=== PATIENT | male | born 1970 | race American Indian/Alaskan Native ===

== ENCOUNTER 2018-01-31 07:05 | Observation (INO) | payer BC ==
--- OUTSIDE RECORDS SUMMARY | 2018-01-31 07:07 | XMS REPORT | Clinical Summary ---
:[address] [facility] Address [address] [place] [address] Phone Care Team Providers Name Role Phone Unavailable Primary Care Provider Unavailable Allergies Active Allergy Reactions Severity Noted Date Comments Morphine Rash Medium 12/30/2014 Ketorolac Rash Medium 09/12/2012 Able to take other NSAIDs like motrin and aleve Zolpidem Other (See Comments) Low 05/23/2010 Sleep walk Per patient "Sleep Walking". Current Medications Prescription Sig. Disp. Refills Start End Date Status Date tiZANidine Take 8 mg by mouth Active (ZANAFLEX) 4 MG every 4 (four) tabletIndications: hours as needed . Muscle Spasm promethazine 25 mg as needed for Active (PHENERGAN) 12.5 Nausea . 6 MG tablet HYDROcodone-acetam Take 1 tablet by Active inophen (NORCO mouth every 4 10-325) 10-325 mg (four) hours as per tablet needed for Pain. clopidogrel Take 75 mg by mouth Active (PLAVIX) 75 mg daily. tablet atorvastatin Take 40 mg by mouth Active (LIPITOR) 40 MG nightly. tablet fondaparinux Inject 7.5 mg Active (ARIXTRA) 7.5 subcutaneously mg/0.6 mL Syrg daily. injection buprenorphine HCl Place 300 mcg Active (BELBUCA) 300 mcg inside cheek 2 FilmIndications: (two) times daily. Chronic Pain pantoprazole Take 1 tablet (40 30 tablet 0 Active (PROTONIX) 40 MG mg total) by mouth 7 tablet daily. lisinopril Take 1 tablet (10 30 tablet 0 01/26/20 Active (PRINIVIL,ZESTRIL) mg total) by mouth 8 19 10 MG tablet daily. lisinopril Take 5 mg by mouth 01/23/20 Discontinued (PRINIVIL,ZESTRIL) daily . 18 10 MG tablet isosorbide Take 30 mg by mouth 01/25/20 Discontinued mononitrate 2 (two) times 18 (IMDUR) 30 MG 24 daily. hr tablet Active Problems Problem Noted Date Chest pain of unknown etiology 02/08/2017 Chest pain 02/08/2017 Heart attack (HCC) 08/11/2016 Chest pain of uncertain etiology 08/14/2015 History of pericarditis 04/12/2015 Pulmonary embolus (HCC) 12/09/2012 Chronic back pain Hypertension Factor 5 Leiden mutation, heterozygous (HCC) Port-a-cath in place Resolved Problems Problem Noted Date Resolved Date Chest pain 12/16/2016 02/08/2017 Anemia 12/01/2016 02/08/2017 Abdominal pain 10/15/2015 02/08/2017 Uncontrolled hypertension 10/15/2015 02/08/2017 SVT (supraventricular tachycardia) ([facility]) 09/13/2014 02/08/2017 Encounters Date Type Specialty Care Team Description 01/24/2018 Orders Only General Internal Medicine 01/22/2018 - Hospital Encounter General Internal [facility], Must 01/25/2018 Medicine MD Dominique Cespedes, MD Jeremiah Prieto Bhagwat Purushottam, MD Aly, Salman Siraj, MD 08/30/2017 Hospital Encounter General Internal Wiliam Sanderson Medicine MD 07/23/2017 - Hospital Encounter General Internal Wiliam Sanderson 07/24/2017 Medicine Winston Fabian MD 07/23/2017 Orders Only Katherin Grubbs, RN 07/12/2017 - Hospital Encounter General Internal Winston Daniels 07/13/2017 MD Katie Mccartney Dominic Gregory, MD Aly, Salman Siraj, MD 02/17/2017 Hospital Encounter General Internal Kirk Wilson MD 02/17/2017 Orders Only Krystin Galvez RN 02/08/2017 - Hospital Encounter General Internal Kirk Wilson 02/09/2017 Nilda Kay MD 02/08/2017 Orders Only Kathi Martinez RN after 01/30/2017 Family History Medical History Relation Name Comments Vision loss Brother Hyperlipidemia Father Hypertension Father Unremarkable Father Vision loss Father Vision loss Maternal Aunt Heart disease Mother Hyperlipidemia Mother Hypertension Mother Unremarkable Mother Vision loss Mother Hyperlipidemia Sister Hypertension Sister Vision loss Sister Relation Name Status Comments Brother Father Maternal Aunt Mother Sister Social History Tobacco Use Types Packs/Day Years Used Date Never Smoker Smokeless Tobacco: Never Used Tobacco Cessation: Counseling Given: No Alcohol Use Drinks/Week oz/Week Comments No Sex Assigned at Date Recorded Not on file Last Filed Vital Signs Vital Sign Reading Time Taken Blood Pressure 123/71 01/25/2018 11:45 AM CDT Pulse 81 01/25/2018 11:45 AM CDT Temperature 36.7 C (98.1 F) 01/25/2018 11:45 AM CDT Respiratory Rate 18 01/25/2018 11:45 AM CDT Oxygen Saturation 100% 01/25/2018 11:45 AM CDT Inhaled Oxygen Concentration - - Weight 86.2 kg (190 lb) 01/22/2018 6:00 PM CDT Height 170.2 cm (5' 7") 01/22/2018 6:00 PM CDT Body Mass Index 29.76 01/22/2018 6:00 PM CDT Plan of Treatment Health Maintenance Due Date Last Done Comments INFLUENZA VACCINE 07/11/2018 Results EKG-SCANNED (01/26/2018 1:52 PM)Only the most recent of6 resultswithin the time period is included.RHYTHM STRIP - SCAN (01/26/2018 1:52 PM)Only the most recent of5 resultswithin the time period is included.CT chest for pulmonary embolus (01/24/2018 7:46 PM) Specimen Performing Laboratory [facility] Narrative FINAL REPORT HISTORY: chest pain COMPARISON : 03/12/2016 Technique : Multiple axial images of the chest were performed from the lung apices to the lung bases with 5 mm slice thickness with the administration of IV contrast. Images were further reconstructed with 1.25 mm slice thickness through the pulmonary arteries. This exam was performed according to our departmental dose optimization program which includes automated exposure control, adjustment of the mA and/or kV according to patient size and/or use of iterative reconstructive technique. Comment: The thyroid gland is within normal limits. A right-sided Port-A-Cath is in place. There is no hilar, mediastinal or axillary lymphadenopathy. The visualized portions of the liver, spleen, adrenal glands, pancreas, and kidneys are within normal limits. The osseous structures as well as the subcutaneous soft tissues are without any abnormalities. There are some scattered areas of some linear subsegmental atelectasis versus scarring. There is no pleural effusion, pneumothorax or infiltrate. A tiny amount of hypodensity is identified in one of the right lower lobe subsegmental pulmonary artery branches. While this may be related to artifact/poor opacification, a tiny thrombus cannot be excluded. Findings were discussed with Dr. Santiago. Impression: 1. Questionable tiny thrombus in one of the right lower lobe subsegmental pulmonary arterial branches. 2. Scattered areas of some linear subsegmental atelectasis versus scarring. Signed: Theodore Combs MD Report Verified Date/Time:01/24/2018 20:29:12 Reading Location: [facility] [id number] Consult Reading Room Procedure Note Interface, External Ris In - 01/24/2018 8:31 PM CDT FINAL REPORT HISTORY: chest pain COMPARISON : 03/12/2016 Technique : Multiple axial images of the chest were performed from the lung apices to the lung bases with 5 mm slice thickness with the administration of IV contrast. Images were further reconstructed with 1.25 mm slice thickness through the pulmonary arteries. This exam was performed according to our departmental dose optimization program which includes automated exposure control, adjustment of the mA and/or kV according to patient size and/or use of iterative reconstructive technique. Comment: The thyroid gland is within normal limits. A right-sided Port-A-Cath is in place. There is no hilar, mediastinal or axillary lymphadenopathy. The visualized portions of the liver, spleen, adrenal glands, pancreas, and kidneys are within normal limits. The osseous structures as well as the subcutaneous soft tissues are without any abnormalities. There are some scattered areas of some linear subsegmental atelectasis versus scarring. There is no pleural effusion, pneumothorax or infiltrate. A tiny amount of hypodensity is identified in one of the right lower lobe subsegmental pulmonary artery branches. While this may be related to artifact/poor opacification, a tiny thrombus cannot be excluded. Findings were discussed with Dr. Santiago. Impression: 1. Questionable tiny thrombus in one of the right lower lobe subsegmental pulmonary arterial branches. 2. Scattered areas of some linear subsegmental atelectasis versus scarring. Signed: Theodore Combs MD Report Verified Date/Time: 01/24/2018 20:29:12 Reading Location: [facility] [id number] Consult Reading Room Basic Metabolic Panel (01/24/2018 5:19 PM)Only the most recent of3 resultswithin the time period is included. Component Value Ref Range Sodium 138 135 - 148 meq/L Potassium 3.7 3.6 - 5.5 meq/L Chloride 104 98 - 106 meq/L CO2 24 20 - 29 meq/L BUN 18 10 - 26 mg/dL Creatinine 0.90 0.50 - 1.20 mg/dL Glucose 119 (H) 70 - 110 mg/dL Calcium 8.5 8.5 - 10.5 mg/dL EGFR 90Comment: ESTIMATED GFR IS NOT ACCURATE mL/min/1.73 sq m CREATININE CLEARANCE IN PREDICTING GLOMERULAR FILTRATION RATE. ESTIMATED GFR IS NOT APPLICABLE FOR DIALYSIS PATIENTS. Specimen Performing Laboratory Blood [facility] [address] [place] [address] Troponin I (01/22/2018 1:16 PM)Only the most recent of10 resultswithin the time period is included. Component Value Ref Range Troponin I <0.03 0.00 - 0.15 ng/mL Specimen Performing Laboratory Blood - Central Venous Line [facility] [address] [place] [address] Narrative Troponin I (TnI) levels must be interpreted in the context of the presenting symptoms and the clinical findings. Elevated TnI levels indicate myocardial damage, but are not specific for ischemic heart disease. Elevated TnI levels are seen in patients with other cardiac conditions (including myocarditis and congestive heart failure), and slight TnI elevations occur in patients with other conditions, including sepsis, renal failure, acidosis, acute neurological disease, and persistent tachyarrhythmia. Creatine Kinase (CK), Total and MB (01/22/2018 1:16 PM)Only the most recent of7 resultswithin the time period is included. Component Value Ref Range Total CK 53 40 - 250 U/L CK-MB 0.7 0.0 - 4.9 ng/mL MB Relative Index 1.3 % Specimen Performing Laboratory Blood - Central Venous Line [address] [address] Narrative CK-MB Reference Range: <5 Normal 5-10 Borderline >10Abnormal CBC with platelet count + automated diff (07/23/2017 5:47 PM)Only the most recent of3 resultswithin the time period is included. Component Value Ref Range WBC 8.5 4.0 - 10.0 K/L RBC 3.95 (L) 4.20 - 5.80 M/L Hemoglobin 11.4 (L) 13.0 - 16.8 GM/DL Hematocrit 34.6 (L) 40.0 - 50.0 % MCV 87.4 82.0 - 98.0 fL MCH 28.9 27.0 - 33.0 pg MCHC 33.0 32.0 - 36.0 GM/DL RDW 15.7 (H) 10.3 - 14.2 % Platelets 368 150 - 430 K/CU MM MPV 7.1 6.5 - 10.5 fL nRBC 0 0 - 0 /100 WBC % Neutros 50 % % Lymphs 32 % % Monos 15 % % Eos 2 % % Baso 0 % # Neutros 4.30 1.80 - 8.00 K/L # Lymphs 2.70 1.48 - 4.50 K/L # Monos 1.30 0.00 - 1.30 K/L # Eos 0.20 0.00 - 0.50 K/L # Baso 0.00 0.00 - 0.20 K/L Specimen Performing Laboratory Blood [address] [address] CBC with platelet count + automated diff (07/23/2017 5:47 PM)Only the most recent of3 resultswithin the time period is included. Specimen Performing Laboratory Blood Narrative The following orders were created for panel order CBC with platelet count + automated diff. Procedure Abnormality Status --------- ------ CBC with platelet count ...[[id number]]AbnormalFinal result Please view results for these tests on the individual orders. Hemoglobin A1c (07/23/2017 5:47 PM) Component Value Ref Range Hemoglobin A1C 5.3 4.3 - 6.1 % Specimen Performing Laboratory Blood [facility] [address] [place] [id number] Manual Differential (07/13/2017 4:29 AM)Only the most recent of2 resultswithin the time period is included. Component Value Ref Range % Neutros (manual) 38 % % Lymphs (manual) 46 % % Monos (manual) 11 % % Eos (manual) 5 % # Neutros (manual) 2.13 1.80 - 8.00 K/L # Lymphs (manual) 2.58 1.48 - 4.50 K/L # Monos (manual) 0.62 0.00 - 1.30 K/L # Eos (manual) 0.28 0.00 - 0.50 K/L Total Counted 100 WBC Morphology Normal Platelet Morphology Normal RBC Morphology Normal Specimen Performing Laboratory Blood - Central Venous Line [facility] [address] [place] [id number] Lipid panel (07/13/2017 4:29 AM) Component Value Ref Range Triglycerides 159 mg/dL Cholesterol 205 mg/dL HDL 62 mg/dL LDL Calculated 111 mg/dL Specimen Performing Laboratory Blood - Central Venous Line [facility] [address] [place] [address] Narrative Triglyceride Reference Range: Low Risk <150 [id number] High Risk 200-499 Very High Risk>=500 Cholesterol Reference Range: Low Risk <200 [id number] High Risk>240 HDL Cholesterol Reference Range: Low Risk >=60 High Risk <40 LDL Cholesterol Reference Range: Optimal<100 Near [id number] Very High >=190 Comprehensive metabolic panel (07/13/2017 4:29 AM) Component Value Ref Range Protein, Total 6.4 6.0 - 8.5 gm/dL Albumin 3.7 3.5 - 5.0 g/dL Alkaline Phosphatase 67 30 - 115 U/L Total Bilirubin 0.3 0.1 - 1.2 mg/dL Sodium 141 135 - 148 meq/L Potassium 3.7 3.6 - 5.5 meq/L Chloride 106 98 - 106 meq/L CO2 26 20 - 29 meq/L BUN 19 10 - 26 mg/dL Creatinine 1.00 0.50 - 1.20 mg/dL Glucose 104 70 - 110 mg/dL Calcium 9.0 8.5 - 10.5 mg/dL AST 14 5 - 40 U/L ALT 10 5 - 50 U/L EGFR 80Comment: ESTIMATED GFR IS NOT ACCURATE mL/min/1.73 sq m CREATININE CLEARANCE IN PREDICTING GLOMERULAR FILTRATION RATE. ESTIMATED GFR IS NOT APPLICABLE FOR DIALYSIS PATIENTS. Specimen Performing Laboratory Blood - Central Venous Line [facility] [address] [place] [address] aPTT (02/08/2017 10:17 PM) Component Value Ref Range PTT 23.1 23.0 - 35.0 seconds Specimen Performing Laboratory Blood [facility] [address] [place] [address] Prothrombin time/INR (02/08/2017 10:17 PM) Component Value Ref Range Protime 10.4 9.3 - 12.0 seconds INR 1.0 <=5.9 Specimen Performing Laboratory Blood [facility] [address] [place] [address] Narrative RECOMMENDED COUMADIN/WARFARIN INR THERAPY RANGES STANDARD DOSE: 2.0 - 3.0 Includes: PROPHYLAXIS for venous thrombosis, systemic embolization; TREATMENT for venous thrombosis and/or pulmonary embolus. HIGH RISK: Target INR is 2.5-3.5 for patients with mechanical heart valves. after 01/30/2017
--- OUTSIDE RECORDS SUMMARY | 2018-01-31 07:07 | XMS REPORT | Clinical Summary ---
:1970 Author Organization [facility] Address [address] [place] [address] Care Team Providers Name Role Phone Asked, No Pcp Primary Care Provider Unavailable Allergies Active Allergy Reactions Severity Noted Date Comments Zolpidem 08/02/2017 Sleep walk. Morphine Rash Low 08/02/2017 Break out. Ketorolac 08/02/2017 Rashes Current Medications Prescription Sig. Disp. Refills Start Date End Date Status clopidogrel (PLAVIX) Take 75 mg by Active 75 mg tablet mouth every morning. atorvastatin Take 40 mg by Active (LIPITOR) 40 MG mouth nightly. tablet HYDROcodone-acetamino Take 1 tablet Active phen (NORCO) 10-325 by mouth every mg per tablet 4 (four) hours as needed for moderate pain. fondaparinux Inject 7.5 mg Active (ARIXTRA) 7.5 mg/0.6 under the skin mL syringe every morning. tiZANidine (ZANAFLEX) Take 8 mg by Active 4 MG tablet mouth every 6 (six) hours as needed for muscle spasms. buprenorphine HCl Apply 300 mcg Active (BELBUCA) 300 mcg to cheek 2 film (two) times a day. lisinopril Take 5 mg by Active (PRINIVIL,ZESTRIL) 5 mouth every mg tablet morning. promethazine Take 25 mg by 0 11/17/2017 Active (PHENERGAN) 25 MG mouth every 4 tablet (four) hours as needed. BYSTOLIC 20 mg tablet Take 20 mg by 0 11/17/2017 Active mouth every morning. nitroglycerin Place 0.4 mg Active (NITROSTAT) 0.4 MG SL under the tablet tongue every 5 (five) minutes as needed. lisinopril Take 10 mg by 11/26/2017 Discontinued (PRINIVIL,ZESTRIL) 10 mouth daily. mg tablet HYDROcodone-acetamino Take 1 tablet 11/26/2017 Discontinued phen (NORCO) 10-325 by mouth every mg per tablet 4 (four) hours as needed. 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 CAD (coronary artery disease) 09/02/2016 Encounters Date Type Specialty Care Team Description 12/12/2017 - Hospital Encounter General Internal Bryce Mcgowan, 12/15/2017 Medicine DO 12/12/2017 Orders Only General Internal Bryce Mcgowan, Medicine DO 11/26/2017 - [facility] in [facility] (Primary Dx); 11/27/2017 Alejandro Garza Acquired coagulation factor deficiency; Coronary artery disease involving [place] heart with unstable angina pectoris, unspecified vessel or lesion type 08/08/2017 Hospital Encounter General Internal Wiliam Sanderson Medicine MD 08/02/2017 - Hospital Encounter General Internal Wiliam Sanderson, Atypical chest pain 08/03/2017 Medicine (Primary Dx) 04/19/2017 Second Opinion Director Of Consumer Affairs Cabrera Reyes 04/16/2017 Hospital Encounter General Internal Wiliam Sanderson Medicine MD 04/15/2017 Hospital Encounter Intensive Care Elizabeth Beard MD 03/06/2016 - Hospital Encounter Uriel Stephens 02/20/2017 MD Zeyad after 01/30/2017 Family History Medical History Relation Name Comments Factor V Leiden deficiency Father Heart disease Mother Relation Name Status Comments Father Factor 5 Mother Social History Tobacco Use Types Packs/Day Years Used Date Never Smoker Tobacco Cessation: Counseling Given: No Alcohol Use Drinks/Week oz/Week Comments No Sex Assigned at Date Recorded Not on file Last Filed Vital Signs Vital Sign Reading Time Taken Blood Pressure 109/58 12/15/2017 2:57 AM PARTS ORDER AND STOCK CLERK Pulse 78 12/15/2017 2:57 AM PARTS ORDER AND STOCK CLERK Temperature 36.3 C (97.3 F) 12/15/2017 2:57 AM PARTS ORDER AND STOCK CLERK Respiratory Rate 18 12/15/2017 2:57 AM PARTS ORDER AND STOCK CLERK Oxygen Saturation 100% 12/15/2017 2:57 AM PARTS ORDER AND STOCK CLERK Inhaled Oxygen Concentration - - Weight 86.2 kg (190 lb) 11/26/2017 11:49 PM PARTS ORDER AND STOCK CLERK Height 170.2 cm (5' 7") 12/12/2017 3:20 PM PARTS ORDER AND STOCK CLERK Body Mass Index 28.06 11/26/2017 11:49 PM PARTS ORDER AND STOCK CLERK Plan of Treatment Health Maintenance Due Date Last Done Comments INFLUENZA VACCINE 05/11/2018 07/03/2016, 09/09/2015, 08/11/2012 Procedures Procedure Name Priority Date/Time Associated Comments Diagnosis ECHOCARDIOGRAM 2D Routine 08/03/2017 8:30 Results for this COMPLETE W MMODE AM CDT procedure are in SPECTRAL COLOR DOPPLER the results (21737) section. after 01/30/2017 Results Direct Tish' (MAURI) (12/14/2017 10:28 AM) Component Value Ref Range Direct Tish POS Comment: testing performed at [facility], micha langston in [place] with critical 12/14/17 at 2000 Specimen Performing Laboratory [facility] DEPARTMENT OF PATHOLOGY AND GENOMIC MEDICINE [address] [place] [address] [place] [address] Antibody identification (12/14/2017 10:28 AM) Component Value Ref Range Antibody ID POS, Anti-EComment: ADDING GCBC CHARGES Antibody ID POS, Anti-KellComment: ADDING GCBC CHARGES Antibody ID POS, Bg AntibodyComment: ADDING GCBC CHARGES Specimen Performing Laboratory [facility] DEPARTMENT OF PATHOLOGY AND GENOMIC MEDICINE [address] [place] [address] [place] [address] Prepare RBC, 2 Units (12/14/2017 10:28 AM) Component Value Ref Range Product name Red Blood Cells -1, Leukored Unit number [id number] Product code [id number] Dispense status Transfused Blood expiration date Blood type code 6200 Blood type A POSITIVE Product name Red Blood Cells -1, Leukored Unit number [id number] Product code [id number] Dispense status Transfused Blood expiration date Blood type code 6200 Blood type A POSITIVE Specimen Performing Laboratory [facility] DEPARTMENT OF PATHOLOGY AND GENOMIC MEDICINE [address] [place] [address] [place] [address] Type and screen (12/14/2017 10:28 AM) Component Value Ref Range ABO grouping AB Rh type POS Antibody screen POS Specimen Performing Laboratory Blood [facility] DEPARTMENT PATHOLOGY AND [facility] [id number] [place] [address] [place] [address] CBC with platelet and differential (12/14/2017 8:35 AM)Only the most recent of5 resultswithin the time period is included. Component Value Ref Range WBC 4.36 (L) 4.50 - 11.00 k/uL RBC 2.94 (L) 4.40 - 6.00 m/uL HGB 7.1 (L) 14.0 - 18.0 g/dL HCT 23.7 (L) 41.0 - 51.0 % MCV 80.6 (L) 82.0 - 100.0 fL MCH 24.1 (L) 27.0 - 34.0 pg MCHC 30.0 (L) 31.0 - 37.0 g/dL RDW - SD 55.8 (H) 37.0 - 55.0 fL MPV 9.5 8.8 - 13.2 fL Platelet count 280 150 - 400 k/uL Nucleated RBC 0.00 /100 WBC Neutrophils 41.6 39.0 - 69.0 % Lymphocytes 39.0 25.0 - 45.0 % Monocytes 16.7 (H) 0.0 - 10.0 % Eosinophils 2.3 0.0 - 5.0 % Basophils 0.2 0.0 - 1.0 % Immature granulocytes 0.2Comment: "Immature granulocytes" 0.0 - 1.0 % (promyelocytes, myelocytes, metamyelocytes) Specimen Performing Laboratory Blood [facility] DEPARTMENT PATHOLOGY AND [address] [place] [address] Vancomycin level, trough (12/14/2017 8:35 AM) Component Value Ref Range Vancomycin, trough 6.1 (L) 10.0 - 20.0 ug/mL Comment: Therapeutic Ranges: Peak 30.0 - 40.0 ug/mL Mnccpt09.0 - 20.0 ug/mL Specimen Performing Laboratory Serum [facility] DEPARTMENT PATHOLOGY AND [address] [place] [address] CT Angiogram Pe Chest (12/13/2017 2:28 PM) Specimen Performing Laboratory [address] [address] Narrative EXAMINATION: CT ANGIOGRAM PE CHEST CLINICAL HISTORY:47 years Male PE r o TECHNIQUE:CT angiographic images of the chest were obtained during intravenous administration of iodinated contrast. Computerized reformatted images and 3-D MIP images were also obtained and archived (CT pulmonary embolus protocol). CT imaging was performed with iterative reconstruction techniques and/or automated exposure control to reduce radiation dose. COMPARISON: None. FINDINGS: The thyroid appears unremarkable. There are no abnormal mediastinal or hilar lymph nodes identified. A right-sided ported central catheter projects with its tip in the superior vena cava above the right atrium No emboli are identified within the pulmonary vessels. There is no evidence of aneurysm or dissection involving the aorta Views of the upper abdomen which were obtained demonstrate a calcification projecting in the area of the left upper pole measuring approximately 6 to 7 mm. Within the lungs there are no pulmonary parenchymal nodules masses or areas of focal consolidation. Minimal linear opacity at the left lung base suggests an area of mild atelectasis or scar. The bones of the thorax appear osteopenic but appear intact. Impression: 1. No emboli identified. 2. Mild scarring at the lung bases. [id number] Procedure Note Hm Interface, Radiology Results Incoming - 12/13/2017 2:52 PM PARTS ORDER AND STOCK CLERK EXAMINATION: CT ANGIOGRAM PE CHEST CLINICAL HISTORY:47 years Male PE r o TECHNIQUE: CT angiographic images of the chest were obtained during intravenous administration of iodinated contrast. Computerized reformatted images and 3-D MIP images were also obtained and archived (CT pulmonary embolus protocol). CT imaging was performed with iterative reconstruction techniques and/or automated exposure control to reduce radiation dose. COMPARISON: None. FINDINGS: The thyroid appears unremarkable. There are no abnormal mediastinal or hilar lymph nodes identified. A right-sided ported central catheter projects with its tip in the superior vena cava above the right atrium No emboli are identified within the pulmonary vessels. There is no evidence of aneurysm or dissection involving the aorta Views of the upper abdomen which were obtained demonstrate a calcification projecting in the area of the left upper pole measuring approximately 6 to 7 mm. Within the lungs there are no pulmonary parenchymal nodules masses or areas of focal consolidation. Minimal linear opacity at the left lung base suggests an area of mild atelectasis or scar. The bones of the thorax appear osteopenic but appear intact. Impression: 1. No emboli identified. 2. Mild scarring at the lung bases. [id number] Blood culture, aerobic & anaerobic (12/13/2017 10:40 AM) Component Value Ref Range Blood culture isolate No growth after 5 days of incubation. Comment: Specimen Information Specimen Source: Blood Specimen Site: Line, port-a-cath Right Specimen Performing Laboratory Blood - Line, port-a-cath [facility] DEPARTMENT OF PATHOLOGY AND GENOMIC MEDICINE [address] [place] [address] Influenza antigen (12/13/2017 10:10 AM) Component Value Ref Range Influenza antigen Negative for Influenza A/B antigen. Comment: Specimen Information Specimen Source: Nares Specimen Site: Not specified Specimen Performing Laboratory Nares - Not specified [facility] PATHOLOGY AND GENOMIC [facility] [id number] [place] [address] [place] [address] Estimated GFR (12/13/2017 5:10 AM)Only the most recent of4 resultswithin the time period is included. Component Value Ref Range GFR Non Af Amer 59 (A) mL/min/1.73 m2 GFR Af Amer 72 mL/min/1.73 m2 Comment: Chronic kidney disease: <60 mL/min/1.73m2 Kidney failure: <15 mL/min/1.73m2 The estimated GFR is calculated from the IDMS-traceable Modification of Diet in Renal Disease Equation. The accuracy of the calculation is poor when the creatinine is normal. Calculated values >90 mL/min/1.73m2 are not reported. This equation has not been validated in children (<18 years), women, the elderly (>70 years), or ethnic groups other than Caucasians and Americans. Specimen Performing Laboratory Plasma specimen [facility] PATHOLOGY AND [address] [place] [address] Basic metabolic panel (12/13/2017 5:10 AM)Only the most recent of4 resultswithin the time period is included. Component Value Ref Range Sodium 133 (L) 135 - 148 mEq/L Potassium 4.1 3.5 - 5.0 mEq/L Chloride 97 (L) 98 - 112 mEq/L CO2 24 24 - 31 mEq/L Anion gap 12 7 - 15 mEq/L Comment: Starting from January , anion gap calculation no longer incorporates potassium. Please note the change. BUN 20 6 - 20 mg/dL Creatinine 1.3 (H) 0.7 - 1.2 mg/dL Glucose 119 (H) 65 - 99 mg/dL Calcium 8.8 8.3 - 10.2 mg/dL Specimen Performing Laboratory Plasma specimen [facility] DEPARTMENT OF PATHOLOGY AND [facility] MEDICINE [address] [place] [address] Troponin (12/13/2017 12:07 AM)Only the most recent of8 resultswithin the time period is included. Component Value Ref Range Troponin <0.300 0.000 - 0.300 ng/mL Comment: 0.30 - 1.49 ng/mlMay indicate increased risk of acute coronary syndrome. >=1.5 ng/mlConsistent with acute myocardial infarction. The diagnostic value of a single normal or non-diagnostic result is questionable.Serial samples at 2-6 hour intervals are required to rule out acute myocardial injury. Specimen Performing Laboratory Plasma specimen [facility] DEPARTMENT OF PATHOLOGY AND [facility] [address] [place] [address] Lipid panel (12/12/2017 2:47 PM)Only the most recent of2 resultswithin the time period is included. Component Value Ref Range Cholesterol 189 <200 mg/dL Triglycerides 65 <150 mg/dL HDL cholesterol 72 >40 mg/dL LDL cholesterol 116 (H)Comment: Result obtained by direct <100 mg/dL LDL measurement Lipid panel interpretation SeeBelow Comment: Total Cholesterol (mg/dL) <200 Desirable [phone]-phdq >=240High Triglycerides (mg/dL) <150 Normal [id number]-heii 200-499High >=500Very high HDL Cholesterol (mg/dL) <40Low (male) <40Low (female) LDL Cholesterol (mg/dL) <100 Optimal 100-129Near or above optimal [phone]-tnht 160-189High >=190Very high Risk Catergories that modify LDL goals. Risk CatergoriesLDL goal (mg/dL) CHD and CHD risk equivalent<100 (10-year risk >20%) Multiple (2+) risk factors <130 (10-year risk=<20%) 0-1 risk factors <160 (<10-year risk) Defining levels of lipids in metabolic syndrome Triglycerides>=150 mg/dL HDL Cholesterol Men<40 mg/dL Women<40 mg/dL Non-HDL cholesterol is a second target for therapy in persons with high triglycerides (>=200 mg/dL) Specimen Performing Laboratory Plasma specimen [facility] DEPARTMENT OF PATHOLOGY AND GENOMIC MEDICINE [address] [place] [address] ECG 12 lead (11/27/2017 11:02 AM)Only the most recent of5 resultswithin the time period is included. Component Value Ref Range Ventricular rate 76 Atrial rate 76 IL interval 180 QRSD interval 88 QT interval 368 QTC interval 414 P axis 1 47 QRS axis 1 34 T wave axis 44 EKG impression Normal sinus rhythm-Normal ECG-In automated comparison with ECG of 26-NOV-2017 22:59,-No significant change was found- Specimen Performing Laboratory [facility] [address] [place] [address] Echocardiogram complete w contrast and 3D if needed (08/03/2017 8:30 AM) Component Value Ref Range Velocity Ratio (V1/V2) 0.74 m/s IVS,d 0.95 0.6 - 1.2 cm Ao root annulus 3.08 cm EF 57.77 % LVPWD,d 0.87 cm AoV Mean PG 2.71 mmHg AV LVOT peak gradient 2.88 mmHg MV valve area p 1/2 method 4.63 cm2 PV Pk Grad 2.20 mmHg E/A ratio 0.98 E wave decelartion time 164.00 msec IVRT 117.65 msec LVOT Diam,S 2.04 cm LVOT area 3.27 cm2 LVOT Vmax 0.85 m/s LVOT VTI 0.17 m AoV Peak PG 5.32 mmHg MV Peak E Kevin 0.54 m/s MV stenosis pressure 1/2 time 47.56 ms MV Peak A Kevin 0.55 m/s AoV Area, Vmax 2.40 cm2 AoV Area, VTI 2.78 cm2 AoV Vmax 1.15 m/s IVS/LVPW,2D 1.09 LA Area d A4C 12.88 cm2 LV,d 3.79 cm LV,s 2.66 cm PV VMAX 0.74 m/s MV E A ratio 0.97 mmHg LV SYS VOL 25.93 ml LV CHAPMAN VOL 61.40 ml LV SV Teich 2D 35.47 ml LV Vol s Teich PSAX 25.93 ml AoV Vmn 0.78 LA Ao Ratio Mmode 1.15 LV FS Cube 2D 29.86 LV FS Teich 2D 29.86 AoV VTI 0.20 m LV EF,2D 65.49 % MV AE ratio 1.03 LVOT Vmn 0.64 Aov area Vmn 2.67 cm2 LA Vol d MOD A4C 32.07 ml LVOT mean grad 1.74 mmHg LV SV Cube 2D 35.53 ml LV vol d cube 2D 54.25 ml LV vol s cube 2D 18.72 ml MV Decel slope 3.27 m/s2 Specimen Performing Laboratory [facility] [address] [place] [address] Narrative The left ventricle is not well visualized, grossly normal wall motion. Left Ventricular ejection fraction is 55 - 60%. Spectral Doppler shows normal pattern of LV diastolic filling The aortic valve appears normal Trace mitral valve regurgitation The tricuspid valve appears normal The pulmonic valve appears normal Normal right ventricular size, wall thickness and global function CK-MB (08/03/2017 12:12 AM)Only the most recent of3 resultswithin the time period is included. Component Value Ref Range CK-MB 1.3 1.0 - 10.4 ng/mL Specimen Performing Laboratory Plasma specimen [facility] DEPARTMENT OF PATHOLOGY AND [facility] MEDICINE [address] [place] [address] D-dimer (08/03/2017 12:12 AM) Component Value Ref Range D-dimer 0.36 0.00 - 0.40 ug/mL Comment: Units are ug/ml Fibrinogen Equivalent Unit. When combined with low clinical probability, D-dimer results of less than 0.5 ug/ml FEU have a good negativepredictive value in excluding PE or DVT. For D-dimer results greater than 0.5ug/ml FEU further testing is indicated if PE or DVT is suspectedclinically. Elevated D-dimer results have been reported in DVT, PE, and DIC cases and may indicate the presence of a clot. D-dimer results may be elevated due to old age, , inflammatory diseases, trauma, post-operative states, sepsis, and malignancies. Specimen Performing Laboratory Blood [facility] DEPARTMENT OF PATHOLOGY AND [facility]ICINE [address] [place], [place] [address] Creatine kinase, total (CPK) (08/03/2017 12:12 AM)Only the most recent of3 resultswithin the time period is included. Component Value Ref Range Creatine kinase 98 39 - 308 U/L Specimen Performing Laboratory Plasma specimen [facility] DEPARTMENT OF PATHOLOGY AND GENOMIC MEDICINE [address] [place] [address] Partial thromboplastin time, activated (04/15/2017 1:50 PM) Component Value Ref Range PTT 29.7 23.0 - 36.0 sec Comment: PTT therapeutic range for unfractionated heparin is 61.0-112.0 seconds which corresponds to Anti-Xa 0.3-0.7 U/ml. Specimen Performing Laboratory Blood [facility] OF PATHOLOGY AND GENOMIC MEDICINE [address] [place] [address] Prothrombin time with INR (04/15/2017 1:50 PM) Component Value Ref Range Prothrombin time 13.6 12.0 - 15.0 sec INR 1.0 Comment: The International Normalized Ratio (INR) is a therapeutic monitoring tool for patients who are stable on oral anticoagulant therapy. An INR of 2.0-3.0 is suggested for deep vein thrombosis/pulmonary embolism. Specimen Performing Laboratory Blood [facility] DEPARTMENT OF PATHOLOGY AND GENOMIC MEDICINE [address] [place] [address] Magnesium level (04/15/2017 1:50 PM) Component Value Ref Range Magnesium 1.9 1.7 - 2.4 mg/dL Specimen Performing Laboratory Plasma specimen [facility] DEPARTMENT OF PATHOLOGY AND GENOMIC MEDICINE [address] [place] [address] POC glucose (04/15/2017 1:44 PM) Component Value Ref Range POC glucose 129 (H) 65 - 99 mg/dL Comment: [facility] Notified RN Meter ID: [id number] Stone Layout Marker: Amber Alvarez Specimen Performing Laboratory [facility] OF PATHOLOGY AND GENOMIC MEDICINE [address] [place] [address] after 01/30/2017 Insurance Payer Benefit Plan / Group Subscriber ID Type Phone Address BCBS EXCHANGE BLUE ADVANTAGE HMO EXCH xxxxxxxxxxxx Exchange Home: [phone]
--- OUTSIDE RECORDS SUMMARY | 2018-01-31 07:09 | XMS REPORT | Continuity of Care Document ---
:1970 Author Organization [facility] Address [address] [place] [address] Phone Unavailable Care Team Providers Name Role Phone SAMUEL DOUGLASS MD Primary Care Physician Insurance Providers Guarantor Christiano Serra Address [address] [place] [address] Payer [facility] Policy Number [id number] Subscriber's Name Christiano Serra Itzel Relationship 18 Self / Same As Patient Group Number [id number] Group Name [employer] Effective Date 06 Advance Directives Directive Response Recorded Date/Time Does the patient have an advance directive? No 08/12/08 10:06pm If yes, is advance directive on file with [facility]? No 03/30/07 11:24am If not on file with [facility] will patient provide a copy? No 01/04/18 6:45pm Do you have a Directive to Physician? No 01/04/18 6:45pm Do you have a Medical Power of Financial Professional? No 01/04/18 6:45pm Do you have an out of hospital Do Not Resuscitate Order? No 01/04/18 6:45pm Do you have any special needs we should be aware of? No 01/04/18 6:45pm Do you have a support person here with you today? No 01/04/18 6:45pm Did patient receive Notice of Privacy Practices? Yes 01/04/18 6:45pm Did patient receive patient rights and responsibilities? Yes 01/04/18 6:45pm Problems No problem information available. Medications Current Home Medications Medication Dose Units Route Directions Days Qty Instructions Start Date Atorvastatin Calcium 20 Mg Daily 30 Tab (Lipitor) 20 Mg Tablet Buprenorphine Hcl 2 Mg Tab.subl Clopidogrel Bisulfate 75 Mg Oral Daily 30 Tab (Plavix) 75 Mg Tablet Hydrocodone Bit/Acetaminophen ([place] 10-325 Tablet) 1 Each Tablet Lisinopril 10 Mg 10 Mg Oral Daily 30 Tab Tablet Tizanidine Hcl (Zanaflex) 4 Mg Tablet Social History Social History Problem Response Recorded Date/Time Onset Date Status Hx Psychiatric Problems No 12/31/2009 6:38pm Not Applicable Not Applicable Smoking Status Start Date Stop Date Never Smoker Hospital Discharge Instructions No hospital discharge instruction information available. Plan of Care Discharge Date 01/04/18 8:37pm Disposition HOME, SELF-CARE Condition at Discharge Stable Instructions/Education Provided Chest Pain - Chest Wall Prescriptions See Medication Section Referrals SAMUEL DOUGLASS MD Address: [address] [place] [phone] Additional Instructions/Education Discussed with patient diagnosis of chest pain with use of narcotics from multiple providers for chronic back pain. Cardiac/Chest evaluation negative. Recommend FOLLOW UP with electric transfer operator and procurement representative. All results given with precautions to proceed to a hospital ER if symptoms persist or worsen with chest pain, shortness or breath, fever, or diaphoresis. Functional Status No functional status information available. Allergies, Adverse Reactions, Alerts Allergen Type Severity Reaction Status Last Updated Morphine Allergy Mild Active 01/04/18 Phenylephrine Allergy Mild Active 01/04/18 Pseudoephedrine Allergy Mild Active 12/23/09 Zolpidem Allergy Mild Active 12/23/09 Xylometazoline Allergy Mild Active 08/13/08 Oxymetazoline Allergy Mild Active 01/04/18 Ketorolac Allergy Mild Active 01/04/18 Immunizations No immunization information available. Vital Signs Acute Vital Signs Vital Response Date/Time Temperature (Fahrenheit) 98.0 degrees F (97.6 - 99.5) 2018 8:56pm Pulse Pulse Rate (adult) 95 bpm (60 - 90) 2018 8:56pm Respiratory Rate 16 bpm (12 - 24) 2018 8:56pm Blood Pressure 135/82 mm Hg 2018 8:56pm Height 5 ft 7 in 2018 6:01pm Weight 193 lb 2018 6:01pm Body Mass Index 30.2 kg/m^2 2018 6:01pm Results No relevant diagnostic test, laboratory data and/or discharge summary information available. Procedures No procedure information available. Encounters Encounter Location Arrival/Admit Date Discharge/Depart Date Attending Provider Departed [facility]' 01/04/18 6:00pm 01/04/18 8:37pm PATRICIA LEIJA Emergency Room Patients [facility]
--- OUTSIDE RECORDS SUMMARY | 2018-01-31 07:09 | XMS REPORT | Continuity of Care Document ---
:1970 Author Organization [facility] Care Team Providers Name Role Phone LIBRA VELAZQUEZ Admitting Physician LIBRA VELAZQUEZ Attending Physician Hospital Admission Diagnosis No data in the System Social History Element Code Description Smoking Start Date End Date Description Status Code System Smoking Status [id number] Current some day SNOMED-CT smoker Problems Code Code System Problem Name Start Date End Date Status 97625578 SNOMED-CT Pulmonary embolism 2012 Active 3411771 SNOMED-CT Supraventricular 2011 Active tachycardia 95502569 SNOMED-CT Chest pain u Active LUMBAR SURGERY Unknown Active 25029692 SNOMED-CT Myocardial infarction Unknown Active 239398184 SNOMED-CT Factor V Leiden Unknown Active mutation 17495289 SNOMED-CT Coronary Unknown Active arteriosclerosis 70370038 SNOMED-CT Hyperlipidemia Unknown Active Medications RxNorm Medication Dose Route Instructions Indications Start End Status Date Date 653120 atorvastatin 40 Oral orally every Active 40 MG Oral milligram day Tablet 506184 clopidogrel 75 75 Oral orally every Active MG Oral Tablet milligram day 771137 fondaparinux 7.5 Subcutaneo subcutaneously Active milligram us every day 962328 Lisinopril 10 10 Oral orally every Active MG Oral Tablet milligram day 4917 Nitroglycerin 0.4 Sublingual sublingually chest pain Active milligram every 5 to 15 minutes as needed. (3 doses) (until response; do not exceed 3 doses per event;) 721322 Acetaminophen 1 tablet Oral orally every 4 pain No 325 MG / to 6 hours as Longer Hydrocodone needed. Active Bitartrate 10 MG Oral Tablet 563721 Labetalol 100 Oral orally every 12 No hydrochloride milligram hours Longer 100 MG Oral Active Tablet 40176 tizanidine 4 Oral orally every muscle spasm No milligram 4-6 h as Longer needed. Active Allergies Code Code Allergy Type Reaction Severity Start End Status System Substance Date Date 13161115 RXNorm Ambien Drug Unknown Active allergy 15498 RXNorm Toradol Drug Unknown Active allergy 7052 RXNorm morphine Drug Unknown Active allergy Results Laboratory Results Order: ED2 CBC LOINC Test Result Flag Range Unit Date 6.4 3.5-10.0 10^9/L 01/29/2018 1WBC 09:30 28.7 15.0-50.0 % 01/29/2018 1LY% 09:30 6.9 2.0-15.0 % 01/29/2018 1MIDS% 09:30 64.4 35.0-80.0 % 01/29/2018 1Granulocyte 09:30 s % 1.8 0.5-5.0 10^9/L 01/29/2018 1Lymphocytes 09:30 0.5 0.1-1.5 10^9/L 01/29/2018 1MID 09:30 4.1 1.2-8.0 10^9/L 01/29/2018 1Granulocyte 09:30 s 3.99 3.50-5.50 10^12/L 01/29/2018 1RBC 09:30 10.2 L 11.5-16.5 gm/dl 01/29/2018 1Hemoglobin 09:30 29.5 L 35.0-55.0 % 01/29/2018 1Hematocrit 09:30 73.8 L 75.0-100.0 fL 01/29/2018 1MCV 09:30 25.6 25.0-35.0 pg 01/29/2018 1MCH 09:30 34.7 31.0-38.0 gm/dl 01/29/2018 1MCHC 09:30 17 H 11.0-16.0 % 01/29/2018 1RDW % 09:30 299 100-400 10^9/L 01/29/2018 1Platelet 09:30 7.3 A 8.0-11.0 fL 01/29/2018 1MPV 09:30 Performing Lab Footnotes:[address] [place] [address] [id number] - [address] [facility] [address] [place] [address] [facility] - : DIRECTOR HEBER RUBY__ ____ Order: ED2 CMP LOINC Test Result Flag Range Unit Date 137 128-145 mmol/l 01/29/2018 1Sodium 09:30 3.3 L 3.6-5.1 mmol/l 01/29/2018 1Potassium 09:30 1CO2 23 18-33 mmol/l 01/29/2018 09:30 103 98-108 mmol/l 01/29/2018 1Chloride 09:30 137 H 73-118 mg/dl 01/29/2018 1Glucose 09:30 8.1 8.0-10.3 mg/dl 01/29/2018 1Calcium 09:30 1BUN 15 7-22 mg/dl 01/29/2018 09:30 0.8 0.6-1.2 mg/dl 01/29/2018 1Creatinine 09:30 71 42-141 U/L 01/29/2018 1Alkaline Phos 09:30 1ALT 15 10-47 U/L 01/29/2018 (SGPT) 09:30 1AST 28 11-38 U/L 01/29/2018 (SGOT) 09:30 1Total 0.7 0.2-1.6 mg/dl 01/29/2018 Bilirubin 09:30 3.8 3.3-5.5 gm/dl 01/29/2018 1Albumin 09:30 1T 6.9 6.4-8.1 gm/dl 01/29/2018 Protein 09:30 Performing Lab Footnotes:[address] [place] [address] - [id number] - [address] - [place] [address] [facility] - MD: DIRECTOR HEBER RUBY__ ____ Order: ED2 PRO BNP LOINC Test Result Flag Range Unit Date <15 0-125 01/29/2018 1Pro-BNP(B-P 09:30 eptide) Note: THE METHODOLOGY FOR DETECTION OF B-NATRIURETIC PEPTIDE HAS BEEN CHANGED TO 'NT pro-BNP'. THE NORMAL RANGES HAVE CHANGED. PLEASE NOTE THAT RANGES ARE DEFINED BY THE AGE OF THE PATIENT. (<75 years old=0-125 pg/ml 75years and older=0-450pg/ml). VALUES ARE NOT INTERCHANGEABLE BETWEEN METHODS. 10-18-2006 Performing Lab Footnotes:[address] [place] [address] [id number] - [address] [place] [address] [place] [address] NOE Lozada MD: DIRECTOR HEBER RUBY__ ____ Order: ED2 TROPONIN I QUANTITATIVE LOINC Test Result Flag Range Unit Date 0 0.000-0.034 ng/ml 01/29/2018 1Troponin-I 09:30 Note: The 99th Percentile URL is 0.034 ng/mL. The Joint Society of Cardiology/[place] [employer] (ESC/ACC) and the National Academy of Clinical Biochemistry Standards of Laboratory Practices (NACB) recommends that the diagnosis of AMI includes the presence of clinical history suggestive of Acute Coronary Syndrome (ACS) and a maximum concentration of cardiac troponin exceeding the 99th percentile of a normal reference population [upper reference limit (URL)] on at least one occasion during the first 24 hours after the clinical event. Performing Lab Footnotes:[address] [place] [address] - [id number] - [address] [facility] [address] [place] [address] NOE Lozada MD: DIRECTOR HEBER RUBY__ ____ Radiology Results Order: [id number] ED2 CT ANGIO CHEST W CONTRASTExam Completion Date:01/29/2018 09:32Procedure: ED2 CT ANGIO CHEST W CONTRAST Order date: 01/29/2018 9:32 AMOrdering Provider: ITALIA BARTHlinical Indication: chest pain, tachycardiaComparison: NoneTechnique: Using a multislice scanner, sequential axial imaging was obtained inthe thorax from the level of the thoracic inlet through the lung bases. The examwas obtained with the administration of IV contrast. 2D sagittal and coronalreconstructed images were obtained. This exam was performed according to the our departmental dose-optimizationprogram which includes automated exposure control, adjustment of the mA and/orkV according to patient size and/or use of iterative reconstruction techniques.FINDINGS: Right-sided Port-A-Cath in place.There are no pulmonary masses or nodules. There is no alveolar or interstitial infiltrate. There are no pleural effusions.Cardiac size is normal.There is no pericardial effusion.Aorta and pulmonary arteries are unremarkable. No large filling defectidentified to suggest pulmonary embolusThere is no supraclavicular or axillary lymphadenopathy. There is no mediastinal, hilar, or subcarinal lymphadenopathy.There are no skeletal abnormalities.IMPRESSION1. Negative contrast enhanced CT scanof the chest. No evidence of acutepulmonary embolus.This final report was electronically signed by Dr Cesar Benitez MD 01/29/201810:58 AMDictated By: CESAR BENITEZDate: 01/29/2018 11:04Order: [id number] ED2 XR CHEST 2 PA LATERALExam Completion Date: 09:18Procedure: ED2 XR CHEST 2 PA LATERALOrder date: 01/29/2018 9:18 AMOrdering Provider: ITALIA BARTHlinical Indication: CHEST PAIN: Pain- ChestComparison: November 14, 2017Findings:Stable [id number]-O- Cath.Cardiomediastinal silhouette is within normal limits. The lungs are clear. No pleural effusion or pneumothorax. Osseous structures are nonacute.No evidence of active tuberculosis.Impression:Stable and nonacute two-view chest.This final report was electronically signed [place] [id number] AMDictated By: CESAR BENITEZDate: 01/29/2018 09:49 Vital Signs Vitals Value Date Body Temperature 98.8 F 01/29/2018 Respiratory Rate 18 01/29/2018 O2% BldC Oximetry 100 01/29/2018 BP Systolic 133 mmHg 01/29/2018 BP Diastolic 91 mmHg 01/29/2018 Height 67 in 01/29/2018 Weight Measured 190 lbs 01/29/2018 BSA (Body Surface Area) 1.31340 01/29/2018 BMI (Body Mass Index) 29.8 01/29/2018 Plan of Care No data in the system Procedures Code Code System Procedure Name Target Site Date of Procedure ED2 CT ANGIO 01/29/2018 11:04 CHEST W CONTRAST ED2 XR CHEST 01/29/2018 09:49 2 PA LATERAL Encounters No data in the system Immunizations Vaccine Code Code System Vaccine Name Date Status FLU PNEUM Completed Functional Status No data in the system Hospital Discharge Instructions No data in the system
--- OUTSIDE RECORDS SUMMARY | 2018-01-31 07:09 | XMS REPORT | Continuity of Care Document ---
:1970 Author Organization [facility] Care Team Providers Name Role Phone JULIET DORMAN Admitting Physician JULIET DORMAN Attending Physician Hospital Admission Diagnosis Code Admission Diagnosis Date [id number] Chest pain Social History Element Code Description Smoking Start Date End Date Description Status Code System Smoking Status [id number] Never smoker SNOMED-CT Problems Code Code System Problem Name Start Date End Date Status 87502176 SNOMED-CT Pulmonary embolism 2012 Active 4379987 SNOMED-CT Supraventricular 2010 Active tachycardia LUMBAR SURGERY Unknown Active Medications RxNorm Medication Dose Route Instructions Indications Start End Status Date Date 283100 Acetaminophen 1 tablet Oral orally every 4 pain Active 325 MG / to 6 hours as Hydrocodone needed. Bitartrate 10 MG Oral Tablet 050719 Labetalol 100 Oral orally every Active hydrochloride milligram 12 hours 100 MG Oral Tablet 80160 tizanidine 4 milligram Oral orally every muscle spasm Active 4-6 h as needed. Allergies Code Code Allergy Type Reaction Severity Start End Status System Substance Date Date 089342 RXNorm Ambien Drug Unknown Active allergy 63700 RXNorm Toradol Drug Unknown Active allergy Results Laboratory Results Order: ED2 TROPONIN I QUANTITATIVE LOINC Test Result Flag Range Unit Date 0 0.000-0.034 ng/ml 11/14/2017 1Troponin-I 14:00 Note: The 99th Percentile URL is 0.034 ng/mL. The Joint Society of Cardiology/[place] [employer] (ESC/ACC) and the National [...] hours after the clinical event. Performing Lab Footnotes:[facility] - [id number] - [address] [facility] [address] - [place] [address] NOE Lozada MD: DIRECTOR HEBER RUBY__ ____ Order: ED2 BMP LOINC Test Result Flag Range Unit Date 142 128-145 mmol/l 11/14/2017 1Sodium 11:11 3.5 L 3.6-5.1 mmol/l 11/14/2017 1Potassium 11:11 24 18-33 mmol/l 11/14/2017 1CO2 11:11 105 98-108 mmol/l 11/14/2017 1Chloride 11:11 196 H 73-118 mg/dl 11/14/2017 1Glucose 11:11 8.3 8.0-10.3 mg/dl 11/14/2017 1Calcium 11:11 10 7-22 mg/dl 11/14/2017 1BUN 11:11 0.9 0.6-1.2 mg/dl 11/14/2017 1Creatinine 11:11 Performing Lab Footnotes:[address] [place] [address] - [id number] - [address] [facility] [address] - [place] [address] NOE Lozada MD: DIRECTOR HEBER RUBY__ ____ Order: ED2 CBC LOINC Test Result Flag Range Unit Date 6.1 3.5-10.0 10^9/L 11/14/2017 1WBC 11:11 33 15.0-50.0 % 11/14/2017 1LY% 11:11 7.2 2.0-15.0 % 11/14/2017 1MIDS% 11:11 59.8 35.0-80.0 % 11/14/2017 1Granulocyte 11:11 s % 2 0.5-5.0 10^9/L 11/14/2017 1Lymphocytes 11:11 0.4 0.1-1.5 10^9/L 11/14/2017 1MID 11:11 3.7 1.2-8.0 10^9/L 11/14/2017 1Granulocyte 11:11 s 4.06 3.50-5.50 10^12/L 11/14/2017 1RBC 11:11 10.1 L 11.5-16.5 gm/dl 11/14/2017 1Hemoglobin 11:11 31.4 L 35.0-55.0 % 11/14/2017 1Hematocrit 11:11 77.4 75.0-100.0 fL 11/14/2017 1MCV 11:11 25 25.0-35.0 pg 11/14/2017 1MCH 11:11 32.2 31.0-38.0 gm/dl 11/14/2017 1MCHC 11:11 17.9 H 11.0-16.0 % 11/14/2017 1RDW % 11:11 279 100-400 10^9/L 11/14/2017 1Platelet 11:11 7.3 A 8.0-11.0 fL 11/14/2017 1MPV 11:11 Performing Lab Footnotes:[address] [place], [place] [address]R[place]HAEL - [id number] - [address] [place] [address] - [facility] [place] [address] [facility] - MD: DIRECTOR HEBER RUBY__ ____ Order: ED2 PRO BNP LOINC Test Result Flag Range Unit Date <15 0-125 11/14/2017 1Pro-BNP(B-P 11:11 eptide) Note: THE METHODOLOGY FOR DETECTION OF B-NATRIURETIC PEPTIDE HAS BEEN CHANGED TO 'NT pro-BNP'. THE NORMAL RANGES HAVE CHANGED. PLEASE NOTE THAT RANGES ARE DEFINED BY THE AGE OF THE PATIENT. (<75 years old=0-125 pg/ml 75years and older=0-450pg/ml). VALUES ARE NOT INTERCHANGEABLE BETWEEN METHODS. 10-18-2006 Performing Lab Footnotes:[address] [place] [address] - [id number] - [address] [place] [address] [facility] - MD: DIRECTOR HEBER RUBY__ ____ Radiology Results Order: [id number] ED2 CT ANGIO CHEST W CONTRASTExam Completion Date:11/14/2017 11:45Procedures: ED2 CT ANGIO CHEST W CONTRASTExam Date: 11/14/2017 11:45 AMOrdering Physician: JULIET DORMANClinical Indication: rule out peComparison: Chest CT, 06/23/14; chest radiograph, TECHNIQUE: Spiral multislice scanning was obtained through the thorax and aportion of the upper abdomen with a high rate of intravenous contrast infusionfor opacification of the pulmonary arteries. 2-D reconstructions were obtainedaccording to our usual protocol, utilizing a slice thickness of 3 mm or less.This exam was performed according to the our departmental dose- optimizationprogram which includes automated exposure control, adjustment of the mA and/orkV according to patient size and/or use of iterative reconstruction techniques.Findings: NECK: Thyroid: Limited evaluation is without significant abnormality.Lymph nodes: Limited evaluation is without significant abnormality.Soft tissues: Limited evaluation is without significant abnormality.Vascular: Limited evaluation is without significant abnormality.MEDIASTINUM: Aorta: Atherosclerotic calcific plaque of the coronary arteries, aorta, andmajor branches. Airways: No significant abnormality.Lymph nodes: No lymphadenopathy.Heart: No significant abnormality.Esophagus: No significant abnormality.LUNGS: Pneumothorax: None.Lungs: Minimal bilateral dependent atelectasis. No worrisome pulmonary nodulesor masses. Effusion: None. Vascular: The pulmonary arterial vasculature is well opacified for evaluationof pulmonary embolism. No significant filling defects are demonstrated withinthe pulmonary trunk, main pulmonary arteries, segmental, or subsegmentalbranches. Airways: No significant abnormality.UPPER ABDOMEN: Hypoattenuation of the liver is consistent with hepaticsteatosis. No intrahepatic masses or lesions. Normal morphologic appearance ofthe liver. The gallbladder is present. Visualized portions of the pancreas,spleen, adrenal glands, kidneys, and gastrointestinal tract are withoutsignificant abnormality.OSSEOUS: Degenerative changes of the spine. No significant osseousabnormalities are otherwise demonstrated.OTHER: Subcutaneous port catheter is positioned within the right upper thoraxwith catheter tip overlying the superior cavoatrial junction.IMPRESSION: 1. No pulmonary embolism of the pulmonary trunk, mainpulmonary arteries,segmental, or subsegmental branches.2. Other chronic disease findings, as above.This final report was electronically signed by Dr Cathleen Lazar MD 11/14/2017 12:39 PMDictated By: CATHLEEN FRYEDate: 11/14/2017 12:46Order: [id number] ED2 XR CHEST 2 PA LATERALExam Completion Date:11/14/2017 11:00Procedures: ED2 XR CHEST 2 PA LATERALExam Date: 11/14/2017 11:00 AMOrdering Physician: JULIET Valdesinical Indication: cp/sobComparison: Chest radiograph 06/23/14Findings: Technique: Frontal and lateral radiographs of the chest. Medical devices: Subcutaneous port catheter overlies the right upper thoraxwith catheter tip overlying the superior cavoatrial junction. Pneumothorax: No pneumothorax. Lungs: No acute radiographic abnormalities of the pulmonary parenchyma.Effusion : None.Aorta:No significant abnormality.Heart: Normal. Bones: No significant abnormalities.Upper abdomen: Limited evaluation is without significant abnormality.Impression: No acute radiographic abnormalities ofthe thorax. This final report was electronically signed by Dr Cathleen Lazar MD 11/14/2017 12:41 PMDictated By: CATHLEEN FRYEDate: 11/14 12:47 Vital Signs Vitals Value Date Respiratory Rate 17 11/14/2017 O2% BldC Oximetry 98 11/14/2017 BP Systolic 131 mmHg 11/14/2017 BP Diastolic 93 mmHg 11/14/2017 Height 67 in 11/14/2017 Weight Measured 187 lbs 11/14/2017 BSA (Body Surface Area) 1.72022 11/14/2017 BMI (Body Mass Index) 29.3 11/14/2017 Body Temperature 98.7 F 11/14/2017 Plan of Care No data in the system Procedures Code Code System Procedure Name Target Site Date of Procedure ED2 XR CHEST 11/14/2017 12:47 [address] ANGIO 11/14/2017 12:46 CHEST W CONTRAST Encounters Date Code Diagnosis Status (ICD10) - R079 CHEST PAIN UNSPECIFIED Active Immunizations Vaccine Code Code System Vaccine Name Date Status FLU PNEUM Completed Functional Status No data in the system Hospital Discharge Instructions Discharge Instructions 2Discharge DiagnosisChest PainImportant InformationConsult your physician or return to the Emergency Department immediately if worse, if not better as expected, or if any problems arise.Follow Up CareYesImportant InformationPlease understand that you have received care only on an emergency basis. If your condition does notimprove, you should call your personal physician for follow-up care. If you do not have a physician,you may call the referred physician listed.If you have questions about your care or these discharge instructions, you may call the Emergency Department. Please take your discharge paperwork with you to any follow-up appointments.Follow Up CarePatient To ScheduleFollow-Up With:Primary Care PhysicianActivity LevelAs tolerated, unrestrictedPatient TeachingPatient education provided
--- OUTSIDE RECORDS SUMMARY | 2018-01-31 07:09 | XMS REPORT ---
:1970 [facility] [address] [place] [address] Care Team Providers Name Role Phone ITALIA ACUNA Unavailable Unavailable FLORI LORENZO Unavailable Unavailable DR JOLEEN KOWALSKI Unavailable Unavailable DO JULIET DORMAN Unavailable Unavailable EDWARD HAMILTON Unavailable Unavailable SOTOSTEFANIA Unavailable Unavailable DANIEL NEWTON Unavailable Unavailable RAY-DRODDY, FAUSTO CATHERINE Unavailable Unavailable Problems This patient has no known problems. Allergies, Adverse Reactions, Alerts This patient has no known allergies or adverse reactions. Medications This patient has no known medications. Encounters Start End Encounter Admission Attending Care Care Encounter Date/Time Date/Time Type Type Clinicians Facility Department ID 2017-12-16 2017-12-16 Emergency E JOLEEN KOWALSKI [facility] [id number] 13:45:00 17:07:00 Results Test Description Test Time Test Comments Text Results Atomic Results Result Comments ED2 CT ANGIO 2018-01-29 20 g Cathlon Procedure: ED2 CT ANGIO CHEST W CHEST W 11:04:22 Above the CONTRASTOrder date: 01/29/2018 9:32 CONTRAST Antecubital or AMOrdering Provider: ITALIA cole required CLEMONSClinical Indication: chest pain, tachycardiaComparison: NoneTechnique: Using a multislice scanner, sequential axial imaging was obtained inthe thorax from the level of the thoracic inlet through the lung bases. The examwas obtained with the administration of IV contrast. 2D sagittal and coronalreconstructed images were obtained.This exam was performed according to the our departmental dose-optimizationprogram which includes automated exposure control, adjustment of the mA and/orkV according to patient size and/or use of iterative reconstruction techniques.FINDINGS:Right-sided Port-A-Cath in place.There are no pulmonary masses or nodules.There is no alveolar or interstitial infiltrate.There are no pleural effusions.Cardiac size is normal.There is no pericardial effusion.Aorta and pulmonary arteries are unremarkable. No large filling defectidentified to suggest pulmonary embolusThere is no supraclavicular or axillary lymphadenopathy.There is no mediastinal, hilar, or subcarinal lymphadenopathy.There are no skeletal abnormalities.IMPRESSION1. Negative contrast enhanced CT scan of the chest. No evidence of acutepulmonary embolus.This final report was electronically signed by Dr Cesar Beach MD 01/29/201810:58 AMDictated By: CESAR BEACHDate: 01/29/2018 11:04 ED2 TROPONIN-I Quantitative 2018-01-29 10:56:00 Test Item Value Reference Range Comments Troponin-I (test 0.000 ng/ml 0.000-0.034 The 99th Percentile URL is 0.034 code=TROP) ng/mL. The Joint Society of Cardiology/[place] [employer] (ESC/ACC) and the National [...] first 24 hours after the clinical event. ED2 [id number] 10:51:00 Test Item Value Reference Range Comments Sodium (test code=NA) 137 mmol/l 128-145 Potassium (test code=K) 3.3 mmol/l 3.6-5.1 CO2 (test code=CO2) 23 mmol/l 18-33 Chloride (test code=CL) 103 mmol/l 98-108 Glucose (test code=GLU) 137 mg/dl 73-118 Calcium (test code=CALC) 8.1 mg/dl 8.0-10.3 BUN (test code=BUN) 15 mg/dl 7-22 Creatinine (test code=CREA) 0.8 mg/dl 0.6-1.2 Alkaline Phos (test code=ALKP) 71 U/L 42-141 ALT (SGPT) (test code=ALT) 15 U/L 10-47 AST (SGOT) (test code=AST) 28 U/L 11-38 Total Bilirubin (test code=TBIL) 0.7 mg/dl 0.2-1.6 Albumin (test code=ALB) 3.8 gm/dl 3.3-5.5 T Protein (test code=TP) 6.9 gm/dl 6.4-8.1 ED2 [id number] 10:51:00 Test Item Value Reference Range Comments Pro-BNP(B-Peptide) (test <15 0-125 THE METHODOLOGY FOR DETECTION OF code=PROBNP) B-NATRIURETIC PEPTIDE HAS BEEN CHANGED TO "NT pro-BNP". THE NORMAL RANGES HAVE CHANGED. PLEASE NOTE THAT RANGES ARE DEFINED BY THE AGE OF THE PATIENT. (<75 years old=0-125 pg/ml 75years and older=0-450pg/ml). VALUES ARE NOT INTERCHANGEABLE BETWEEN METHODS. 10-18-2006 ED2 [id number] 10:50:00 Test Item Value Reference Range Comments WBC (test code=WBC) 6.4 10\\S\\9/L 3.5-10.0 LY% (test code=LY) 28.7 % 15.0-50.0 MIDS% (test code=MIDS) 6.9 % 2.0-15.0 Granulocytes % (test code=GRA%) 64.4 % 35.0-80.0 Lymphocytes (test code=LYMPH) 1.8 10\\S\\9/L 0.5-5.0 MID (test code=MID) 0.5 10\\S\\9/L 0.1-1.5 Granulocytes (test code=GRAN) 4.1 10\\S\\9/L 1.2-8.0 RBC (test code=RBC) 3.99 10\\S\\12/L 3.50-5.50 Hemoglobin (test code=HGB) 10.2 gm/dl 11.5-16.5 Hematocrit (test code=HCT) 29.5 % 35.0-55.0 MCV (test code=MCV) 73.8 fL 75.0-100.0 MCH (test code=MCH) 25.6 pg 25.0-35.0 MCHC (test code=MCHC) 34.7 gm/dl 31.0-38.0 RDW % (test code=RDW%) 17.0 % 11.0-16.0 Platelet (test code=PLT) 299 10\\S\\9/L 100-400 MPV (test code=MPV) 7.3 fL 8.0-11.0 ED2 XR CHEST 2 PA [id number] 09:49:15Procedure: ED2 XR CHEST 2 PA LATERALOrder date: 01/29/2018 9:18 AMOrdering Provider: ITALIA RITTERMONSClinical Indication: CHEST PAIN: Pain-ChestComparison: November 14, 2017Findings:Stable uypqd-ireufAjcb-V-Cath.Cardiomediastinal silhouette is within normal limits.The lungs are clear.No pleural effusion or pneumothorax. Osseous structures are nonacute.No evidence of active tuberculosis.Impression:Stable and nonacute two- view chest.This final report was electronically signed by Dr Cesar Beach MD 9:43 AMDictated By: CESAR BEACHDate: 01/29/2018 09:49CT, CHEST WITH IV CONTRAST- PE TEST [id number] 20:29:00FINAL REPORT HISTORY: chest pain COMPARISON : 03/12/2016 [...] pulmonary artery branches. While this may be relatedto artifact/poor opacification, a tiny thrombus cannot be excluded. Findings were discussed with . Impression: 1. Questionable tiny thrombus in one of the right lower lobe subsegmental pulmonary arterial branches. 2. Scattered areas of some linear subsegmental atelectasis versus scarring. Signed: Theodore Benito MDReport Verified Date/Time: 01/24/2018 20:29:12 Reading Location: [facility] [id number] Consult Reading Room 08: [facility] [id number] 17:45:00 Test Item Value Reference Range Comments SODIUM (BEAKER) (test 138 meq/L 135-148 vrfm=755) POTASSIUM (BEAKER) (test 3.7 meq/L 3.6-5.5 hely=622) CHLORIDE (BEAKER) (test 104 meq/L 98-106 pzxg=267) CO2 (BEAKER) (test 24 meq/L 20-29 here=010) BLOOD UREA NITROGEN 18 mg/dL 10-26 (BEAKER) (test uwpx=572) CREATININE (BEAKER) (test 0.90 mg/dL 0.50-1.20 tgjq=501) GLUCOSE RANDOM (BEAKER) 119 mg/dL 70-110 (test yngx=222) CALCIUM (BEAKER) (test 8.5 mg/dL 8.5-10.5 aohl=044) EGFR (BEAKER) (test 90 mL/min/1.73 sq m ESTIMATED GFR IS NOT zcjb=5739) ACCURATE CREATININE CLEARANCE IN PREDICTING GLOMERULAR FILTRATION RATE. ESTIMATED GFR IS NOT APPLICABLE FOR DIALYSIS PATIENTS. TROPONIN [id number] 13:54:00 Test Item Value Reference Range Comments TROPONIN I (BEAKER) (test echh=233) < ng/mL 0.00-0.15 Troponin I (TnI) levels must be interpreted [...] failure, acidosis, acute neurological disease, and persistent tachyarrhythmia.CREATINE KINASE (CK), TOTAL AND [id number] 13:53:00 Test Item Value Reference Range Comments CREATINE KINASE TOTAL (BEAKER) (test dbnu=037) 53 U/L 40-250 CREATINE KINASE-MB (BEAKER) (test zpfi=516) 0.7 ng/mL 0.0-4.9 CREATINE KINASE-MB INDEX (BEAKER) (test ciky=652) 1.3 % CK-MB Reference Range:<5 Normal5-10 Borderline>10 AbnormalCARDIAC PANEL TRIAGE [id number] 16:40:00 Test Item Value Reference Range Comments TROPONIN I (test code=GTPI) <0.05 ng/mL <=0.05 CKMB (test code=GCKMP) <1.0 ng/mL <=4.2 DRUGS OF ABUSE*GP*2017-12-16 15:54:00 Test Item Value Reference Range Comments DRUG SCRN (test URINE DRUG SCREEN This code=HDOA) is an unconfirmed screening result and should not be used for non-medical purposes PHENCYCLID (test Negative NEGATIVE code=GPCP) BENZODIAZP (test Negative NEGATIVE code=GBZO) COCAINE (test code=GCOC) Negative NEGATIVE AMPHETHETM (test Negative NEGATIVE code=GAMP) THC (test code=GTHC) Negative NEGATIVE OPIATES (test code=TOÑA) Positive NEGATIVE BARBITURAT (test Negative NEGATIVE code=GBAR) DOAH (test code=GDOAH) URINE DRUG SCREEN * Cut-off values are as follows: - Phencyclidine 25 ng/mL Tetrahydrocannabinol 50 ng/mL Benzodiazepines 300 ng/mL Opiates 300 ng/mL Cocaine 300 ng/mL Barbiturates 300 ng/mL Amphetamines 1000 ng/mL CT PE PROTOCOL*GP*2017-12-16 15:51:58CT CHEST WITH CONTRAST, PE PROTOCOL: Location code: [id number] HISTORY: [id number]: Chest pain, shortness of breathCOMPARISON: 10/14/16, 03/03/16, 08/27/15, 05/27/15TECHNIQUE: Following the administration of a timed IV contrast bolus, helicalCT of the chest was performed. Thin section axial, coronal, and sagittalimages were obtained. Oblique sagittal maximum intensity reformatted images ofthe pulmonary arteries were also obtained. Automatic exposure control wasutilized. Total DLP: 594.49 mGycmFINDINGS: There is no filling defect within the pulmonary arteries to suggest pulmonaryembolus. The aorta is of normal caliber and contour. The lungs are clear. There is no consolidation or effusion. Thecentralairways are patent.There is no mediastinal adenopathy or mass. There is no pericardial effusion.Right chest port remains. Nonobstructing bilateral renal calculi are noted. Images through the upperabdomen are otherwise unremarkable.The bones, skin and surrounding soft tissues are unremarkable.IMPRESSION:1. Negative for PE.2. Stable exam with no acute intrathoracic abnormality.URINALYSIS W/O MICROSCOPICGP2017-12-16 15:43:00 Test Item Value Reference Range Comments COLOR (test code=COLU) Yellow YELLOW CLARITY (test code=CLA) Clear CLEAR GLUCOSE UR (test code=UA GLUCOSE) Negative NEGATIVE BILI UR (test code=BILE) Negative NEGATIVE KETONES UR (test code=CALI) Negative NEGATIVE SP GRAVITY (test code=SPGR) 1.020 1.005-1.030 PH UR (test code=PH) 7.0 4.5-8.0 PROTEIN UR (test code=PU) Negative NEGATIVE NITRITE UR (test code=NITRITE) Negative NEGATIVE UROBIL UR (test code=GUROQ) 0.2 E.U./dL UROBIL UR (test code=GUROQC) 0.2 - 1.0 EU/dL BLOOD UR (test code=UA BLOOD) Negative NEGATIVE LEUK ES UR (test code=LEUK) Negative NEGATIVE CARDIAC PANEL TRIAGE [id number] 14:32:00 Test Item Value Reference Range Comments TROPONIN I (test code=GTPI) <0.05 ng/mL <=0.05 CKMB (test code=GCKMP) 1.2 ng/mL <=4.2 COMPREHENSIVE METABOLIC KANG *GP* [id number] 14:23:00 Test Item Value Reference Range Comments ALBUMIN (test code=GALB) 4.0 g/dL 3.5-5.5 ALK PHOS (test code=GALP) 61 U/L 53-128 ALT (test code=GALT) 25 U/L 10-47 AST (test code=SUSANNA) 35 U/L 11-38 BUN (test code=GBUN) 9 mg/dL 7-22 CALCIUM (test code=GCL+) 9.0 mg/dL 8.0-10.3 CHLORIDE (test code=GCL-) 105 mmol/L 98-108 CREATININE (test code=GCRE) 0.9 mg/dL 0.6-1.2 GLUCOSE (test code=GGUL) 123 mg/dL 73-118 POTASSIUM (test code=GK+) 3.8 mmol/L 3.6-5.1 SODIUM (test code=GNA+) 138 mmol/L 128-145 BILI TOTAL (test code=GTBIL) 0.6 mg/dL 0.2-1.6 TCO2 (test code=GTC02) 27 mmol/L 18-33 PROTEIN (test code=GTP) 7.4 g/dL 6.4-8.1 CHEST 1 VIEW*GP*2017-12-16 14:20:51Portable AP chest, 1 viewLocation Code: [id number] HISTORY: [id number]: Chest painCOMPARISON: 12/22/16COMMENT: The lungs are clear and well inflated. The costophrenic angles are sharp. Thecardiomediastinal silhouette is unremarkable. The bones are intact. Right bofztWkbi-W-Onkg tip overlies the superiorvena cava, unchanged.IMPRESSION: Stable chest with no acute abnormality.CBC (INCLUDES AUTOMATED DIFFERENTIAL) * 2017-12-16 14:14:00 Test Item Value Reference Range Comments WBC (test code=WBC) 7.1 10\\S\\3/uL 4.5-11.0 RBC (test code=RBC) 4.55 10\\S\\6/uL 4.20-5.60 HGB (test code=HBG) 11.0 g/dL 14.0-18.0 HCT (test code=HCT) 34.0 % 35.0-46.0 MCV (test code=MCV) 74.8 fL 80.0-94.0 MCH (test code=GMCH) 24.1 pg 28.2-32.8 MCHC (test code=MCHC) 32.2 g/dL 32.0-36.0 RDW (test code=RDW) 17.4 % 11.5-14.5 PLT (test code=PLT) 320 10\\S\\3/uL 130-400 NEUTROP # (test code=NE#) 5.0 10\\S\\3/uL 2.0-8.0 LYMPH # (test code=LY#) 1.7 10\\S\\3/uL 1.2-4.0 MID # (test code=GMID#) 0.4 10\\S\\3/uL 0.0-1.1 GRA % (test code=GRA%) 70.3 % 35.0-73.0 LYMPH % (test code=GLY%) 23.9 % 20.0-55.0 MID % (test code=GMID%) 5.8 % 0.0-10.0 ED2 TROPONIN-I [id number] 14:21:00 Test Item Value Reference Range Comments Troponin-I (test 0.000 ng/ml 0.000-0.034 The 99th Percentile URL is 0.034 code=TROP) ng/mL. The Joint Society of Cardiology/[place] [employer] (ESC/ACC) and the National [...] first 24 hours after the clinical event. ED2 XR CHEST 2 PA [id number] 12:47:27Procedures: ED2 XR CHEST 2 PA LATERALExam Date: 11/14/2017 11:00 AMOrdering Physician: JULIET Valdesinical Indication: cp/sobComparison: Chest radiograph 06/23/14Findings:Technique: Frontal and lateral radiographs of the chest.Medical devices: Subcutaneous port catheter overlies the right upper thoraxwith catheter tip overlying the superior cavoatrial junction.Pneumothorax: No pneumothorax.Lungs: No acute radiographic abnormalities of the pulmonary parenchyma.Effusion: None.Aorta: No significant abnormality.Heart: Normal.Bones: No significant abnormalities.Upper abdomen: Limited evaluation is without significant abnormality.Impression:No acute radiographic abnormalities of the thorax.This final report was electronically signed by Dr Cathleen Lazar MD11/14/2017 12: 41 PMDictated By: CATHLEEN FRYEDate: 11/14/2017 12:47ED2 CT ANGIO CHEST W [id number] 12:46:17Procedures: ED2 CT ANGIO CHEST W CONTRASTExam Date: 11/14/2017 11:45 AMOrdering Physician: JULIET Valdesinical Indication: rule out peComparison: Chest CT, 06/23/14; [...] patient size and/or use of iterative reconstruction techniques.Findings:NECK:Thyroid: Limited evaluation is without significant abnormality.Lymph nodes: Limited evaluation is without significant abnormality.Soft tissues: Limited evaluation is without significant abnormality.Vascular: Limited evaluation is without significant abnormality.MEDIASTINUM:Aorta: Atherosclerotic calcific plaque of the coronary arteries, aorta, andmajor branches.Airways: No significant abnormality.Lymph nodes: No lymphadenopathy.Heart: No significant abnormality.Esophagus: No significant abnormality.LUNGS:Pneumothorax: None.Lungs: Minimal bilateral dependent atelectasis. No worrisome pulmonary nodulesor masses.Effusion: None.Vascular: The pulmonary arterial vasculature is well opacified for evaluationof pulmonary embolism. No significant filling defects are demonstrated withinthe pulmonary trunk, main pulmonary arteries, segmental, or subsegmentalbranches.Airways: No significant abnormality.UPPER ABDOMEN: Hypoattenuation of the liver isconsistent with hepaticsteatosis. No intrahepatic masses or lesions. Normal morphologic appearance ofthe liver. The gallbladder is present. Visualized portions of the pancreas,spleen, adrenal glands, kidneys, and gastrointestinal tract are withoutsignificant abnormality.OSSEOUS: Degenerative changesof the spine. No significant osseousabnormalities are otherwise demonstrated.OTHER: Subcutaneous port catheter is positioned within the right upper thoraxwith catheter tip overlying the superior cavoatrial junction.IMPRESSION:1. No pulmonary embolism of the pulmonary trunk, main pulmonary arteries,segmental, or subsegmental branches.2. Other chronic disease findings, as above.This final report was electronically signed by Dr Cathleen Lazar MD11/14/2017 12:39 PMDictated By: CATHLEEN FRYEDate: 11/14/2017 12:46ED2 TROPONIN-I [id number] 11:38:00 Test Item Value Reference Range Comments Troponin-I (test 0.000 ng/ml 0.000-0.034 The 99th Percentile URL is 0.034 code=TROP) ng/mL. The Joint Society of Cardiology/[place] [employer]iology (ESC/ACC) and the National [...] first 24 hours after the clinical event. ED2 [id number] 11:38:00 Test Item Value Reference Range Comments Pro-BNP(B-Peptide) (test <15 0-125 THE METHODOLOGY FOR DETECTION OF code=PROBNP) B-NATRIURETIC PEPTIDE HAS BEEN CHANGED TO "NT pro-BNP". THE NORMAL RANGES HAVE CHANGED. PLEASE NOTE THAT RANGES ARE DEFINED BY THE AGE OF THE PATIENT. (<75 years old=0-125 pg/ml 75years and older=0-450pg/ml). VALUES ARE NOT INTERCHANGEABLE BETWEEN METHODS. 10-18-2006 ED2 [id number] 11:31:00 Test Item Value Reference Range Comments Sodium (test code=NA) 142 mmol/l 128-145 Potassium (test code=K) 3.5 mmol/l 3.6-5.1 CO2 (test code=CO2) 24 mmol/l 18-33 Chloride (test code=CL) 105 mmol/l 98-108 Glucose (test code=GLU) 196 mg/dl 73-118 Calcium (test code=CALC) 8.3 mg/dl 8.0-10.3 BUN (test code=BUN) 10 mg/dl 7-22 Creatinine (test code=CREA) 0.9 mg/dl 0.6-1.2 ED2 [id number] 11:21:00 Test Item Value Reference Range Comments WBC (test code=WBC) 6.1 10\\S\\9/L 3.5-10.0 LY% (test code=LY) 33.0 % 15.0-50.0 MIDS% (test code=MIDS) 7.2 % 2.0-15.0 Granulocytes % (test code=GRA%) 59.8 % 35.0-80.0 Lymphocytes (test code=LYMPH) 2.0 10\\S\\9/L 0.5-5.0 MID (test code=MID) 0.4 10\\S\\9/L 0.1-1.5 Granulocytes (test code=GRAN) 3.7 10\\S\\9/L 1.2-8.0 RBC (test code=RBC) 4.06 10\\S\\12/L 3.50-5.50 Hemoglobin (test code=HGB) 10.1 gm/dl 11.5-16.5 Hematocrit (test code=HCT) 31.4 % 35.0-55.0 MCV (test code=MCV) 77.4 fL 75.0-100.0 MCH (test code=MCH) 25.0 pg 25.0-35.0 MCHC (test code=MCHC) 32.2 gm/dl 31.0-38.0 RDW % (test code=RDW%) 17.9 % 11.0-16.0 Platelet (test code=PLT) 279 10\\S\\9/L 100-400 MPV (test code=MPV) 7.3 fL 8.0-11.0 TROPONIN [id number] 07:00:00 Test Item Value Reference Range Comments TROPONIN I (BEAKER) (test ycnc=043) < ng/mL 0.00-0.15 Troponin I (TnI) levels must be interpreted [...] failure, acidosis, acute neurological disease, and persistent tachyarrhythmia.TROPONIN [id number] 00:40:00 Test Item Value Reference Range Comments TROPONIN I (BEAKER) (test uosx=338) < ng/mL 0.00-0.15 Troponin I (TnI) levels must be interpreted [...] failure, acidosis, acute neurological disease, and persistent tachyarrhythmia.HEMOGLOBIN [id number] 19:40:00 Test Item Value Reference Range Comments HEMOGLOBIN A1C (BEAKER) (test elgz=836) 5.3 % 4.3-6.1 TROPONIN [id number] 18:43:00 Test Item Value Reference Range Comments TROPONIN I (BEAKER) (test avlu=057) < ng/mL 0.00-0.15 Troponin I (TnI) levels must be interpreted [...] failure, acidosis, acute neurological disease, and persistent tachyarrhythmia.BASIC METABOLIC [id number] 18:24:00 Test Item Value Reference Range Comments SODIUM (BEAKER) (test 139 meq/L 135-148 qios=520) POTASSIUM (BEAKER) (test 3.5 meq/L 3.6-5.5 cagq=530) CHLORIDE (BEAKER) (test 105 meq/L 98-106 xcdx=502) CO2 (BEAKER) (test 26 meq/L 20-29 mwmq=217) BLOOD UREA NITROGEN 15 mg/dL 10-26 (BEAKER) (test qrqg=576) CREATININE (BEAKER) (test 1.00 mg/dL 0.50-1.20 vkel=437) GLUCOSE RANDOM (BEAKER) 94 mg/dL 70-110 (test ngkm=248) CALCIUM (BEAKER) (test 8.6 mg/dL 8.5-10.5 fjwv=695) EGFR (BEAKER) (test 80 mL/min/1.73 sq m ESTIMATED GFR IS NOT xzkg=2223) ACCURATE CREATININE CLEARANCE IN PREDICTING GLOMERULAR FILTRATION RATE. ESTIMATED GFR IS NOT APPLICABLE FOR DIALYSIS PATIENTS. CBC W/PLT COUNT & AUTO [id number] 18:01:00 Test Item Value Reference Range Comments WHITE BLOOD CELL COUNT (BEAKER) (test wwdh=264) 8.5 K/ L 4.0-10.0 RED BLOOD CELL COUNT (BEAKER) (test jpjr=854) 3.95 M/ L 4.20-5.80 HEMOGLOBIN (BEAKER) (test bgfn=412) 11.4 GM/DL 13.0-16.8 HEMATOCRIT (BEAKER) (test pcgu=567) 34.6 % 40.0-50.0 MEAN CORPUSCULAR VOLUME (BEAKER) (test aall=293) 87.4 fL 82.0-98.0 MEAN CORPUSCULAR HEMOGLOBIN (BEAKER) (test 28.9 pg 27.0-33.0 xzak=767) MEAN CORPUSCULAR HEMOGLOBIN CONC (BEAKER) (test 33.0 GM/DL 32.0-36.0 ejfx=439) RED CELL DISTRIBUTION WIDTH (BEAKER) (test 15.7 % 10.3-14.2 mvxo=629) PLATELET COUNT (BEAKER) (test xren=971) 368 K/CU MM 150-430 MEAN PLATELET VOLUME (BEAKER) (test uxnp=027) 7.1 fL 6.5-10.5 NUCLEATED RED BLOOD CELLS (BEAKER) (test 0 /100 WBC 0-0 vzxc=592) NEUTROPHILS RELATIVE PERCENT (BEAKER) (test 50 % jqof=976) LYMPHOCYTES RELATIVE PERCENT (BEAKER) (test 32 % mgia=386) MONOCYTES RELATIVE PERCENT (BEAKER) (test 15 % demr=723) EOSINOPHILS RELATIVE PERCENT (BEAKER) (test 2 % rgtq=885) BASOPHILS RELATIVE PERCENT (BEAKER) (test 0 % npgo=179) NEUTROPHILS ABSOLUTE COUNT (BEAKER) (test 4.30 K/ L 1.80-8.00 rlsg=609) LYMPHOCYTES ABSOLUTE COUNT (BEAKER) (test 2.70 K/ L 1.48-4.50 jfae=971) MONOCYTES ABSOLUTE COUNT (BEAKER) (test 1.30 K/ L 0.00-1.30 fqkn=627) EOSINOPHILS ABSOLUTE COUNT (BEAKER) (test 0.20 K/ L 0.00-0.50 asit=697) BASOPHILS ABSOLUTE COUNT (BEAKER) (test 0.00 K/ L 0.00-0.20 ncnm=834) CREATINE KINASE (CK), TOTAL AND [id number] 12:25:00 Test Item Value Reference Range Comments CREATINE KINASE TOTAL (BEAKER) (test cpfw=786) 72 U/L 40-250 CREATINE KINASE-MB (BEAKER) (test mjoe=573) 0.9 ng/mL 0.0-4.9 CREATINE KINASE-MB INDEX (BEAKER) (test bmqy=668) 1.3 % CK-MB Reference Range:<5 Normal5-10 Borderline>10 AbnormalTROPONIN [id number] 12:25:00 Test Item Value Reference Range Comments TROPONIN I (BEAKER) (test xldj=634) < ng/mL 0.00-0.15 Troponin I (TnI) levels must be interpreted [...] failure, acidosis, acute neurological disease, and persistent tachyarrhythmia.(MANUAL DIFFERENTIAL)2017-07-13 06:04:00 Test Item Value Reference Range Comments NEUTROPHILS - REL (DIFF) (BEAKER) (test xzgb=3750) 38 % LYMPHOCYTES - REL (DIFF) (BEAKER) (test xkhb=2325) 46 % MONOCYTES - REL (DIFF) (BEAKER) (test ypoc=2285) 11 % EOSINOPHILS - REL (DIFF) (BEAKER) (test secm=6864) 5 % NEUTROPHILS - ABS (DIFF) (BEAKER) (test lalv=9184) 2.13 K/ L 1.80-8.00 LYMPHOCYTES - ABS (DIFF) (BEAKER) (test imml=4961) 2.58 K/ L 1.48-4.50 MONOCYTES - ABS (DIFF) (BEAKER) (test tija=5073) 0.62 K/ L 0.00-1.30 EOSINOPHILS - ABS (DIFF) (BEAKER) (test sjmb=6573) 0.28 K/ L 0.00-0.50 TOTAL COUNTED (BEAKER) (test uxzn=0544) 100 WBC MORPHOLOGY (BEAKER) (test azze=573) Normal PLT MORPHOLOGY (BEAKER) (test xsua=600) Normal RBC MORPHOLOGY (BEAKER) (test xnbs=777) Normal CBC W/PLT COUNT & AUTO [id number] 06:02:00 Test Item Value Reference Range Comments WHITE BLOOD CELL COUNT (BEAKER) (test twju=175) 5.6 K/ L 4.0-10.0 RED BLOOD CELL COUNT (BEAKER) (test iqyd=122) 3.60 M/ L 4.20-5.80 HEMOGLOBIN (BEAKER) (test kesb=595) 10.6 GM/DL 13.0-16.8 HEMATOCRIT (BEAKER) (test zxfa=032) 32.3 % 40.0-50.0 MEAN CORPUSCULAR VOLUME (BEAKER) (test jbij=555) 89.8 fL 82.0-98.0 MEAN CORPUSCULAR HEMOGLOBIN (BEAKER) (test 29.3 pg 27.0-33.0 zasf=603) MEAN CORPUSCULAR HEMOGLOBIN CONC (BEAKER) (test 32.7 GM/DL 32.0-36.0 ywzn=161) RED CELL DISTRIBUTION WIDTH (BEAKER) (test 15.9 % 10.3-14.2 sjih=510) PLATELET COUNT (BEAKER) (test iiwi=556) 312 K/CU MM 150-430 MEAN PLATELET VOLUME (BEAKER) (test lwjw=273) 6.9 fL 6.5-10.5 NUCLEATED RED BLOOD CELLS (BEAKER) (test 0 /100 WBC 0-0 klhc=207) TROPONIN [id number] 05:22:00 Test Item Value Reference Range Comments TROPONIN I (BEAKER) (test sund=966) < ng/mL 0.00-0.15 Troponin I (TnI) levels must be interpreted [...] failure, acidosis, acute neurological disease, and persistent tachyarrhythmia.CREATINE KINASE (CK), TOTAL AND [id number] 05:21:00 Test Item Value Reference Range Comments CREATINE KINASE TOTAL (BEAKER) (test gfrw=732) 71 U/L 40-250 CREATINE KINASE-MB (BEAKER) (test kkrx=930) 0.8 ng/mL 0.0-4.9 CREATINE KINASE-MB INDEX (BEAKER) (test oeku=994) 1.1 % CK-MB Reference Range:<5 Normal5-10 Borderline>10 AbnormalCOMPREHENSIVE METABOLIC [id number] 05:14:00 Test Item Value Reference Range Comments TOTAL PROTEIN (BEAKER) 6.4 gm/dL 6.0-8.5 (test tsov=707) ALBUMIN (BEAKER) (test 3.7 g/dL 3.5-5.0 gakw=2637) ALKALINE PHOSPHATASE 67 U/L 30-115 (BEAKER) (test gedi=254) BILIRUBIN TOTAL (BEAKER) 0.3 mg/dL 0.1-1.2 (test albx=504) SODIUM (BEAKER) (test 141 meq/L 135-148 ilvg=014) POTASSIUM (BEAKER) (test 3.7 meq/L 3.6-5.5 wpxt=829) CHLORIDE (BEAKER) (test 106 meq/L 98-106 fsxa=707) CO2 (BEAKER) (test 26 meq/L 20-29 kciq=318) BLOOD UREA NITROGEN 19 mg/dL 10-26 (BEAKER) (test gnlj=571) CREATININE (BEAKER) (test 1.00 mg/dL 0.50-1.20 rdeo=200) GLUCOSE RANDOM (BEAKER) 104 mg/dL 70-110 (test ukro=015) CALCIUM (BEAKER) (test 9.0 mg/dL 8.5-10.5 vdzx=053) AST (SGOT) (BEAKER) (test 14 U/L 5-40 bqfa=452) ALT (SGPT) (BEAKER) (test 10 U/L 5-50 ikrx=002) EGFR (BEAKER) (test 80 mL/min/1.73 sq m ESTIMATED GFR IS NOT dwky=5076) ACCURATE CREATININE CLEARANCE IN PREDICTING GLOMERULAR FILTRATION RATE. ESTIMATED GFR IS NOT APPLICABLE FOR DIALYSIS PATIENTS. LIPID [id number] 05:13:00 Test Item Value Reference Range Comments TRIGLYCERIDES (BEAKER) (test wcdp=088) 159 mg/dL CHOLESTEROL (BEAKER) (test hpyj=661) 205 mg/dL HDL CHOLESTEROL (BEAKER) (test obuj=725) 62 mg/dL LDL CHOLESTEROL CALCULATED (BEAKER) (test 111 mg/dL oxaz=307) Triglyceride Reference Range: Low Risk <150 Borderline 150- 199 High Risk 200-499 Very High Risk >=500Cholesterol Reference Range: Low Risk <200 Borderline 200-239 High Risk > 240HDL Cholesterol Reference Range: Low Risk >=60 High Risk <40LDL Cholesterol Reference Range: Optimal <100 Near Optimal 100-129 Borderline 130-159 High 160-189 Very High >=190CREATINE KINASE (CK), TOTAL AND [id number] 23:03:00 Test Item Value Reference Range Comments CREATINE KINASE TOTAL (BEAKER) (test hjbg=823) 77 U/L 40-250 CREATINE KINASE-MB (BEAKER) (test crhv=775) 0.9 ng/mL 0.0-4.9 CREATINE KINASE-MB INDEX (BEAKER) (test qlft=109) 1.2 % CK-MB Reference Range:<5 Normal5-10 Borderline>10 AbnormalTROPONIN [id number] 23:03:00 Test Item Value Reference Range Comments TROPONIN I (BEAKER) (test pqym=657) < ng/mL 0.00-0.15 Troponin I (TnI) levels must be interpreted [...] failure, acidosis, acute neurological disease, and persistent tachyarrhythmia.CARDIAC PROFILE 2017-02-21 04:40:00 Test Item Value Reference Range Comments TROPONIN I (test code=A84) <0.015 ng/mL 0.000-0.045 CKMB (test code=A49) 1.4 ng/mL <=3.6 CPK (test code=32A) 92 IU/L 39-308 XR CHEST 1 VIEW PORTABLE 2017-02-21 04:12:23CHEST AP viewLOCATION: [id number] INDICATION: Chest pain COMPARISON: March 14, 2017FINDINGS: Borderline low lung volumes. No focal consolidation or air space opacities. Nopleural effusions or pneumothorax.The heart size is normal. There is a right chest wall implantable port with itstip at the distal SVC.No acute osseous abnormality. The visualized thoracic soft tissues and upperabdomen are unremarkable.IMPRESSION:No evidence of acute chest pathology.D-DIMER 2017-02 03:46:00 Test Item Value Reference Range Comments D-DIMER (test code=DDI) <200 ng/mL D-DU 0-234 D-DIMER COMMENT (test *Level to rule out DVT or PE: code=DDCOM) <235 ng/mL D-DU* PRO TIME AND PTT *[facility]2017-02-21 03:46:00 Test Item Value Reference Range Comments PT (test code=TT) 11.3 s 9.8-13.6 INR (test code=INR) 1.0 INRH (test code=INRH) SUGGESTED THERAPEUTIC RANGE FOR INR: 2.5 - 3.5 For Patients with Prosthetic Valves or Patients with recurrent Thromboembolic Events 2.0 - 3.0 For Most Other Applications PTT (test code=PTT) 29.3 s 20.2-38.0 PTTH (test code=PTTH) To monitor the effectiveness of heparin, we offer the Anti-Xa (Heparin Assay). It can be used for either unfractinated or LMW Heparin. Order Code is ANTI-XA CBC WITH MANUAL DIFF *[facility]*2017-02-21 03:39:00 Test Item Value Reference Range Comments WBC (test code=WBC) 6.4 10\\S\\3/uL 4.5-11.0 RBC (test code=RBC) 3.46 10\\S\\6/uL 4.20-5.60 HGB (test code=HBG) 8.5 g/dL 14.0-18.0 HCT (test code=HCT) 27.6 % 35.0-46.0 MCV (test code=MCV) 79.8 fL 80.0-94.0 MCH (test code=MCH) 24.6 pg 27.0-31.0 MCHC (test code=MCHC) 30.8 g/dL 32.0-36.0 RDW (test code=RDW) 19.2 % 11.5-14.5 PLT (test code=PLT) 382 10\\S\\3/uL 130-400 MPV (test code=MPV) 9.0 fL 9.4-12.4 NEUTROP # (test code=NE#) 2.9 10\\S\\3/uL 2.0-8.0 LYMPH # (test code=LY#) 2.5 10\\S\\3/uL 1.2-4.0 MONOCYTE # (test code=MO#) 0.9 10\\S\\3/uL 0.0-1.1 EOSINOPH # (test code=EO#) 0.1 10\\S\\3/uL 0.0-0.7 BASOPHIL # (test code=BA#) 0.0 10\\S\\3/uL 0.0-0.3 IG # (test code=IG#) 0.01 10\\S\\3/uL 0.00-0.06 NRBC # (test code=NRBC#) 0.00 10\\S\\3/uL 0.00-0.01 NEUTROPH % (test code=NE%) 44.3 % 35.0-73.0 LYMPH % (test code=LY%) 39.1 % 20.0-55.0 MONO % (test code=MO%) 14.5 % 2.5-10.0 EOSINOPH % (test code=EO%) 1.6 % 0.0-5.0 BASOPHIL % (test code=BA%) 0.3 % 0.0-2.0 IG % (test code=IG%) 0.2 % 0.0-0.8 NRBC% (test code=NRBC%) 0.0 % 0.0-0.2 MAN DIFF (test code=HMDIFF) MANUAL DIFFERENTIAL SEG (test code=SEG) 48 % 42-75 BAND (test code=BAND) 0 % 0-8 LYMPH (test code=LYMPH) 24 % 20-51 MONO (test code=MONO) 9 % 3-11 EOS (test code=EOS) 4 % <=10 BASO (test code=BASO) 0 % 0-2 RBC MORPH (test code=RBCMORN) ABNORMAL NORMAL PLT EST (test code=PLTEST) ADEQUATE ADEQUATE PLT MORPH (test code=PLTMOR) NORMAL (1.5-3 um) NORMAL ANISO (test code=ANISO) 1+ NONE HYPOCHROM (test code=HYPOC) 2+ NONE MICROCYTIC (test code=MICRO) 1+ NONE BRAIN NATRIURETIC PROTEIN 2017-02-21 03:36:00 Test Item Value Reference Range Comments proBNP (test code=PBNP) 16 pg/mL 0-125 COMPREHENSIVE METABOLIC KANG 2017-02-21 03:34:00 Test Item Value Reference Range Comments GLUCOSE (test code=06D) 97 mg/dL 75-100 SODIUM (test code=01A) 142 mmol/L 136-145 POTASSIUM (test code=01B) 3.6 mmol/L 3.6-5.1 CHLORIDE (test code=04A) 104 mmol/L 98-107 CO2 (test code=02A) 27 mmol/L 22-32 ANION GAP (test code=ANG) 14.6 mmol/L BUN (test code=05D) 16 mg/dL 7-18 CREATININE (test code=03E) 0.9 mg/dL 0.7-1.3 BUN/CREA R (test code=BCR) 18 12-20 CALCIUM (test code=09D) 8.9 mg/dL 8.3-9.5 BILI TOTAL (test code=11A) 0.6 mg/dL 0.2-1.0 PROTEIN (test code=07D) 7.6 g/dL 6.4-8.2 ALBUMIN (test code=08D) 4.0 g/dL 3.5-4.8 GLOBULIN (test code=GLB) 3.6 g/dL 1.5-3.8 ALB/GLOB (test code=AGRR) 1.1 1.0-2.6 ALK PHOS (test code=35A) 86 IU/L 42-121 AST (test code=30A) 15 IU/L <=42 ALT (test code=31A) 16 IU/L <=78 CARDIAC PROFILE *WW*2017-02-21 03:33:00 Test Item Value Reference Range Comments TROPONIN I (test code=A84) <0.015 ng/mL 0.000-0.045 CKMB (test code=A49) 1.2 ng/mL <=3.6 CPK (test code=32A) 97 IU/L 39-308 MAGNESIUM WW2017-02-21 03:28:00 Test Item Value Reference Range Comments MAGNESIUM (test code=48A) 2.2 mg/dL 1.8-2.4 CREATINE KINASE (CK), TOTAL AND [id number] 08:12:00 Test Item Value Reference Range Comments CREATINE KINASE TOTAL (BEAKER) (test czgi=019) 91 U/L 40-250 CREATINE KINASE-MB (BEAKER) (test zcwj=632) 1.0 ng/mL 0.0-4.9 CREATINE KINASE-MB INDEX (BEAKER) (test ddls=518) 1.1 % CK-MB Reference Range:<5 Normal5-10 Borderline>10 AbnormalTROPONIN [id number] 08:12:00 Test Item Value Reference Range Comments TROPONIN I (BEAKER) (test zmyi=833) < ng/mL 0.00-0.15 Troponin I (TnI) levels must be interpreted [...] failure, acidosis, acute neurological disease, and persistent tachyarrhythmia.CBC W/PLT COUNT & AUTO [id number] 07:57:00 Test Item Value Reference Range Comments WHITE BLOOD CELL COUNT (BEAKER) (test aalm=950) 7.7 K/ L 4.0-10.0 RED BLOOD CELL COUNT (BEAKER) (test mora=487) 3.82 M/ L 4.20-5.80 HEMOGLOBIN (BEAKER) (test ckao=802) 9.3 GM/DL 13.0-16.8 HEMATOCRIT (BEAKER) (test mhdx=556) 29.3 % 40.0-50.0 MEAN CORPUSCULAR VOLUME (BEAKER) (test vhfo=709) 76.6 fL 82.0-98.0 MEAN CORPUSCULAR HEMOGLOBIN (BEAKER) (test 24.3 pg 27.0-33.0 xykk=223) MEAN CORPUSCULAR HEMOGLOBIN CONC (BEAKER) (test 31.8 GM/DL 32.0-36.0 vhfb=901) RED CELL DISTRIBUTION WIDTH (BEAKER) (test 22.1 % 10.3-14.2 mfdx=191) PLATELET COUNT (BEAKER) (test qlio=988) 341 K/CU MM 150-430 MEAN PLATELET VOLUME (BEAKER) (test taxf=243) 7.2 fL 6.5-10.5 NUCLEATED RED BLOOD CELLS (BEAKER) (test 0 /100 WBC 0-0 yhqq=286) NEUTROPHILS RELATIVE PERCENT (BEAKER) (test 50 % ovts=322) LYMPHOCYTES RELATIVE PERCENT (BEAKER) (test 34 % ijep=257) MONOCYTES RELATIVE PERCENT (BEAKER) (test 14 % fzxv=609) EOSINOPHILS RELATIVE PERCENT (BEAKER) (test 1 % yacp=703) BASOPHILS RELATIVE PERCENT (BEAKER) (test 0 % udbs=495) NEUTROPHILS ABSOLUTE COUNT (BEAKER) (test 3.90 K/ L 1.80-8.00 posd=387) LYMPHOCYTES ABSOLUTE COUNT (BEAKER) (test 2.60 K/ L 1.48-4.50 prle=400) MONOCYTES ABSOLUTE COUNT (BEAKER) (test 1.10 K/ L 0.00-1.30 gknl=950) EOSINOPHILS ABSOLUTE COUNT (BEAKER) (test 0.10 K/ L 0.00-0.50 idhc=433) BASOPHILS ABSOLUTE COUNT (BEAKER) (test 0.00 K/ L 0.00-0.20 dqsp=277) (MANUAL DIFFERENTIAL)2017-02-09 07:57:00 Test Item Value Reference Range Comments TOTAL COUNTED (BEAKER) (test vovz=4959) WBC MORPHOLOGY (BEAKER) (test qcgi=581) Normal PLT MORPHOLOGY (BEAKER) (test qyfd=631) Normal ANISOCYTOSIS (BEAKER) (test nzfa=279) 1+ few HYPOCHROMIA (BEAKER) (test rgef=633) 2+ moderate CREATINE KINASE (CK), TOTAL AND [id number] 06:53:00 Test Item Value Reference Range Comments CREATINE KINASE TOTAL (BEAKER) (test ftuj=419) 116 U/L 40-250 CREATINE KINASE-MB (BEAKER) (test unxy=663) 1.1 ng/mL 0.0-4.9 CREATINE KINASE-MB INDEX (BEAKER) (test jfyl=443) 0.9 % CK-MB Reference Range:<5 Normal5-10 Borderline>10 AbnormalTROPONIN [id number] 06:53:00 Test Item Value Reference Range Comments TROPONIN I (BEAKER) (test acrb=941) < ng/mL 0.00-0.15 Troponin I (TnI) levels must be interpreted [...] failure, acidosis, acute neurological disease, and persistent tachyarrhythmia.BASIC METABOLIC [id number] 06:45:00 Test Item Value Reference Range Comments SODIUM (BEAKER) (test 143 meq/L 135-148 jalx=085) POTASSIUM (BEAKER) (test 3.8 meq/L 3.6-5.5 qvwr=205) CHLORIDE (BEAKER) (test 107 meq/L 98-106 tmon=200) CO2 (BEAKER) (test 26 meq/L 20-29 bgvf=874) BLOOD UREA NITROGEN 15 mg/dL 10-26 (BEAKER) (test bcpr=570) CREATININE (BEAKER) (test 1.00 mg/dL 0.50-1.20 lgfc=696) GLUCOSE RANDOM (BEAKER) 106 mg/dL 70-110 (test vloe=935) CALCIUM (BEAKER) (test 8.8 mg/dL 8.5-10.5 qghq=683) EGFR (BEAKER) (test 80 mL/min/1.73 sq m ESTIMATED GFR IS NOT bimi=4402) ACCURATE CREATININE CLEARANCE IN PREDICTING GLOMERULAR FILTRATION RATE. ESTIMATED GFR IS NOT APPLICABLE FOR DIALYSIS PATIENTS. TROPONIN [id number] 22:50:00 Test Item Value Reference Range Comments TROPONIN I (BEAKER) (test ixbg=994) < ng/mL 0.00-0.15 Troponin I (TnI) levels must be interpreted [...] failure, acidosis, acute neurological disease, and persistent tachyarrhythmia.CREATINE KINASE (CK), TOTAL AND [id number] 22:45:00 Test Item Value Reference Range Comments CREATINE KINASE TOTAL (BEAKER) (test knqr=215) 100 U/L 40-250 CREATINE KINASE-MB (BEAKER) (test isay=640) 1.0 ng/mL 0.0-4.9 CREATINE KINASE-MB INDEX (BEAKER) (test chmb=922) 1.0 % CK-MB Reference Range:<5 Normal5-10 Borderline>10 AbnormalPROTHROMBIN TIME/[id number] 22:35:00 Test Item Value Reference Range Comments PROTIME (BEAKER) (test lcdt=505) 10.4 seconds 9.3-12.0 INR (BEAKER) (test ngtw=267) 1.0 <=5.9 RECOMMENDED COUMADIN/WARFARIN INR THERAPY RANGESSTANDARD DOSE: 2.0 - 3.0 Includes: PROPHYLAXIS forvenous thrombosis, systemic embolization; TREATMENT for venous thrombosis and/or pulmonary embolus.HIGH RISK: Target INR is 2.5-3.5 for patients with mechanical heart valves.[id number] 22:35:00 Test Item Value Reference Range Comments PARTIAL THROMBOPLASTIN TIME (BEAKER) (test 23.1 seconds 23.0-35.0 xrfo=431) TROPONIN [id number] 15:08:00 Test Item Value Reference Range Comments TROPONIN I (BEAKER) (test hejb=001) < ng/mL 0.00-0.15 Troponin I (TnI) levels must be interpreted [...] failure, acidosis, acute neurological disease, and persistent tachyarrhythmia.CREATINE KINASE (CK), TOTAL AND [id number] 15:07:00 Test Item Value Reference Range Comments CREATINE KINASE TOTAL (BEAKER) (test bryr=211) 355 U/L 40-250 CREATINE KINASE-MB (BEAKER) (test uqro=783) 2.2 ng/mL 0.0-4.9 CREATINE KINASE-MB INDEX (BEAKER) (test jezj=229) 0.6 % CK-MB Reference Range:<5 Normal5-10 Borderline>10 AbnormalCBC W/PLT COUNT & AUTO [id number] 06:58:00 Test Item Value Reference Range Comments WHITE BLOOD CELL COUNT (BEAKER) (test rysj=616) 6.8 K/ L 4.0-10.0 RED BLOOD CELL COUNT (BEAKER) (test klwg=105) 3.57 M/ L 4.20-5.80 HEMOGLOBIN (BEAKER) (test asxl=281) 8.6 GM/DL 13.0-16.8 HEMATOCRIT (BEAKER) (test lega=005) 28.0 % 40.0-50.0 MEAN CORPUSCULAR VOLUME (BEAKER) (test lnix=997) 78.5 fL 82.0-98.0 MEAN CORPUSCULAR HEMOGLOBIN (BEAKER) (test 24.2 pg 27.0-33.0 roeb=348) MEAN CORPUSCULAR HEMOGLOBIN CONC (BEAKER) (test 30.9 GM/DL 32.0-36.0 mbmm=086) RED CELL DISTRIBUTION WIDTH (BEAKER) (test 22.6 % 10.3-14.2 prip=707) PLATELET COUNT (BEAKER) (test qacf=091) 297 K/CU MM 150-430 MEAN PLATELET VOLUME (BEAKER) (test itdh=559) 7.2 fL 6.5-10.5 NUCLEATED RED BLOOD CELLS (BEAKER) (test 0 /100 WBC 0-0 xskp=250) NEUTROPHILS RELATIVE PERCENT (BEAKER) (test 46 % qcvk=347) LYMPHOCYTES RELATIVE PERCENT (BEAKER) (test 38 % nkai=899) MONOCYTES RELATIVE PERCENT (BEAKER) (test 14 % zlzk=398) EOSINOPHILS RELATIVE PERCENT (BEAKER) (test 2 % cocy=302) BASOPHILS RELATIVE PERCENT (BEAKER) (test 0 % lcwz=130) NEUTROPHILS ABSOLUTE COUNT (BEAKER) (test 3.10 K/ L 1.80-8.00 wmnt=513) LYMPHOCYTES ABSOLUTE COUNT (BEAKER) (test 2.60 K/ L 1.48-4.50 qhlh=710) MONOCYTES ABSOLUTE COUNT (BEAKER) (test 0.90 K/ L 0.00-1.30 xtqq=693) EOSINOPHILS ABSOLUTE COUNT (BEAKER) (test 0.20 K/ L 0.00-0.50 ghvv=881) BASOPHILS ABSOLUTE COUNT (BEAKER) (test 0.00 K/ L 0.00-0.20 hyow=674) (MANUAL DIFFERENTIAL)2017-01-24 06:58:00 Test Item Value Reference Range Comments TOTAL COUNTED (BEAKER) (test kyqy=5118) WBC MORPHOLOGY (BEAKER) (test nplp=362) Normal PLT MORPHOLOGY (BEAKER) (test knqn=617) Normal ANISOCYTOSIS (BEAKER) (test zzxb=551) 2+ moderate HYPOCHROMIA (BEAKER) (test fstm=035) 2+ moderate MICROCYTES (BEAKER) (test gynl=060) 1+ few TROPONIN [id number] 06:05:00 Test Item Value Reference Range Comments TROPONIN I (BEAKER) (test icjz=589) < ng/mL 0.00-0.15 Troponin I (TnI) levels must be interpreted [...] failure, acidosis, acute neurological disease, and persistent tachyarrhythmia.CREATINE KINASE (CK), TOTAL AND [id number] 06:04:00 Test Item Value Reference Range Comments CREATINE KINASE TOTAL (BEAKER) (test idgk=732) 298 U/L 40-250 CREATINE KINASE-MB (BEAKER) (test ulwi=944) 2.1 ng/mL 0.0-4.9 CREATINE KINASE-MB INDEX (BEAKER) (test unfa=001) 0.7 % CK-MB Reference Range:<5 Normal5-10 Borderline>10 AbnormalCOMPREHENSIVE METABOLIC [id number] 06:00:00 Test Item Value Reference Range Comments TOTAL PROTEIN (BEAKER) 6.5 gm/dL 6.0-8.5 (test lfuw=684) ALBUMIN (BEAKER) (test 4.0 g/dL 3.5-5.0 owgd=4263) ALKALINE PHOSPHATASE 76 U/L 30-115 (BEAKER) (test pslq=559) BILIRUBIN TOTAL (BEAKER) 0.5 mg/dL 0.1-1.2 (test puhr=629) SODIUM (BEAKER) (test 142 meq/L 135-148 lrcj=154) POTASSIUM (BEAKER) (test 3.5 meq/L 3.6-5.5 nmmj=434) CHLORIDE (BEAKER) (test 106 meq/L 98-106 ienh=774) CO2 (BEAKER) (test 26 meq/L 20-29 zgbg=003) BLOOD UREA NITROGEN 14 mg/dL 10-26 (BEAKER) (test cazw=161) CREATININE (BEAKER) (test 0.90 mg/dL 0.50-1.20 lyls=231) GLUCOSE RANDOM (BEAKER) 79 mg/dL 70-110 (test sswd=278) CALCIUM (BEAKER) (test 8.8 mg/dL 8.5-10.5 ybcl=966) AST (SGOT) (BEAKER) (test 16 U/L 5-40 uood=160) ALT (SGPT) (BEAKER) (test 10 U/L 5-50 grpc=235) EGFR (BEAKER) (test 91 mL/min/1.73 sq m ESTIMATED GFR IS NOT fwvs=1929) ACCURATE CREATININE CLEARANCE IN PREDICTING GLOMERULAR FILTRATION RATE. ESTIMATED GFR IS NOT APPLICABLE FOR DIALYSIS PATIENTS. CREATINE KINASE (CK), TOTAL AND [id number] 04:57:00 Test Item Value Reference Range Comments CREATINE KINASE TOTAL (BEAKER) (test gbbq=044) 653 U/L 30-300 CREATINE KINASE-MB (BEAKER) (test sqrx=334) 0.8 ng/mL 0.0-4.9 CREATINE KINASE-MB INDEX (BEAKER) (test sekw=243) 0.1 % CK-MB Reference Range:<5 Normal5-10 Borderline>10 AbnormalTROPONIN [id number] 04:56:00 Test Item Value Reference Range Comments TROPONIN I (BEAKER) (test qjia=738) 0.03 ng/mL 0.00-0.15 Troponin I (TnI) levels must be interpreted [...] failure, acidosis, acute neurological disease, and persistent tachyarrhythmia.LIPID [id number] 04:47:00 Test Item Value Reference Range Comments TRIGLYCERIDES (BEAKER) (test fvpr=904) 79 mg/dL CHOLESTEROL (BEAKER) (test uszw=660) 206 mg/dL HDL CHOLESTEROL (BEAKER) (test daen=058) 53 mg/dL LDL CHOLESTEROL CALCULATED (BEAKER) (test 137 mg/dL qwhn=205) Triglyceride Reference Range: Low Risk <150 Borderline 150- 199 High Risk 200-499 Very High Risk >=500Cholesterol Reference Range: Low Risk <200 Borderline 200-239 High Risk > 240HDL Cholesterol Reference Range: Low Risk >=60 High Risk <40LDL Cholesterol Reference Range: Optimal <100 Near Optimal 100-129 Borderline 130-159 High 160-189 Very High >=190COMPREHENSIVE METABOLIC [id number] 04:47:00 Test Item Value Reference Range Comments TOTAL PROTEIN (BEAKER) 7.2 gm/dL 6.0-8.5 (test bypf=757) ALBUMIN (BEAKER) (test 4.1 g/dL 3.5-5.0 tqsu=2814) ALKALINE PHOSPHATASE 78 U/L 30-115 (BEAKER) (test yttc=620) BILIRUBIN TOTAL (BEAKER) 0.5 mg/dL 0.1-1.3 (test nwoi=543) SODIUM (BEAKER) (test 141 meq/L 135-148 azpb=641) POTASSIUM (BEAKER) (test 3.9 meq/L 3.5-5.5 wujo=352) CHLORIDE (BEAKER) (test 109 meq/L 98-106 erjr=489) CO2 (BEAKER) (test 23 meq/L 20-31 yxbr=117) BLOOD UREA NITROGEN 9 mg/dL 10-26 (BEAKER) (test qkdj=905) CREATININE (BEAKER) (test 0.95 mg/dL 0.50-1.20 zsby=856) GLUCOSE RANDOM (BEAKER) 83 mg/dL 70-110 (test tkzi=173) CALCIUM (BEAKER) (test 8.8 mg/dL 8.5-10.5 ywcp=308) AST (SGOT) (BEAKER) (test 28 U/L 5-40 gnov=213) ALT (SGPT) (BEAKER) (test 27 U/L 6-50 mzkn=189) EGFR (BEAKER) (test 86 mL/min/1.73 sq m ESTIMATED GFR IS NOT sazw=0143) ACCURATE CREATININE CLEARANCE IN PREDICTING GLOMERULAR FILTRATION RATE. ESTIMATED GFR IS NOT APPLICABLE FOR DIALYSIS PATIENTS. CBC W/PLT COUNT & AUTO [id number] 04:19:00 Test Item Value Reference Range Comments WHITE BLOOD CELL COUNT (BEAKER) (test lqnv=691) 6.6 K/ L 4.0-10.0 RED BLOOD CELL COUNT (BEAKER) (test uihe=651) 3.66 M/ L 4.20-5.80 HEMOGLOBIN (BEAKER) (test lojh=572) 8.5 GM/DL 13.0-16.8 HEMATOCRIT (BEAKER) (test arvz=943) 27.3 % 40.0-50.0 MEAN CORPUSCULAR VOLUME (BEAKER) (test rjwy=780) 74.7 fL 82.0-98.0 MEAN CORPUSCULAR HEMOGLOBIN (BEAKER) (test 23.2 pg 27.0-33.0 tvwr=359) MEAN CORPUSCULAR HEMOGLOBIN CONC (BEAKER) (test 31.0 GM/DL 32.0-36.0 qvvw=407) RED CELL DISTRIBUTION WIDTH (BEAKER) (test 19.2 % 12.0-15.0 ysst=569) PLATELET COUNT (BEAKER) (test bxiq=329) 348 K/CU MM 150-430 MEAN PLATELET VOLUME (BEAKER) (test vbrn=064) 6.8 fL 6.5-10.5 NUCLEATED RED BLOOD CELLS (BEAKER) (test 0 /100 WBC 0-0 bgja=804) NEUTROPHILS RELATIVE PERCENT (BEAKER) (test 49 % unqe=792) LYMPHOCYTES RELATIVE PERCENT (BEAKER) (test 39 % gako=187) MONOCYTES RELATIVE PERCENT (BEAKER) (test 9 % cclq=653) EOSINOPHILS RELATIVE PERCENT (BEAKER) (test 1 % xvxn=370) BASOPHILS RELATIVE PERCENT (BEAKER) (test 2 % hrew=236) NEUTROPHILS ABSOLUTE COUNT (BEAKER) (test 3.20 K/ L 1.80-8.00 tjkl=882) LYMPHOCYTES ABSOLUTE COUNT (BEAKER) (test 2.60 K/ L 1.48-4.50 ptsj=242) MONOCYTES ABSOLUTE COUNT (BEAKER) (test 0.60 K/ L 0.00-1.30 ifhs=263) EOSINOPHILS ABSOLUTE COUNT (BEAKER) (test 0.10 K/ L 0.00-0.50 jgkf=561) BASOPHILS ABSOLUTE COUNT (BEAKER) (test 0.10 K/ L 0.00-0.20 zrzj=650) TROPONIN [id number] 13:44:00 Test Item Value Reference Range Comments TROPONIN I (BEAKER) (test nbrt=315) < ng/mL 0.00-0.15 Troponin I (TnI) levels must be interpreted [...] failure, acidosis, acute neurological disease, and persistent tachyarrhythmia.CREATINE KINASE (CK), TOTAL AND [id number] 13:43:00 Test Item Value Reference Range Comments CREATINE KINASE TOTAL (BEAKER) (test aepa=652) 61 U/L 40-250 CREATINE KINASE-MB (BEAKER) (test dazi=088) 1.0 ng/mL 0.0-4.9 CREATINE KINASE-MB INDEX (BEAKER) (test qyfb=759) 1.6 % CK-MB Reference Range:<5 Normal5-10 Borderline>10 AbnormalTROPONIN [id number] 07:21:00 Test Item Value Reference Range Comments TROPONIN I (BEAKER) (test frkd=492) < ng/mL 0.00-0.15 Troponin I (TnI) levels must be interpreted [...] failure, acidosis, acute neurological disease, and persistent tachyarrhythmia.CREATINE KINASE (CK), TOTAL AND [id number] 07:20:00 Test Item Value Reference Range Comments CREATINE KINASE TOTAL (BEAKER) (test hipt=672) 58 U/L 40-250 CREATINE KINASE-MB (BEAKER) (test odjl=001) 0.9 ng/mL 0.0-4.9 CREATINE KINASE-MB INDEX (BEAKER) (test tmah=380) 1.6 % CK-MB Reference Range:<5 Normal5-10 Borderline>10 AbnormalCBC W/PLT COUNT & AUTO [id number] 22:21:00 Test Item Value Reference Range Comments WHITE BLOOD CELL COUNT (BEAKER) (test sldc=124) 7.3 K/ L 4.0-10.0 RED BLOOD CELL COUNT (BEAKER) (test xqsp=940) 4.00 M/ L 4.20-5.80 HEMOGLOBIN (BEAKER) (test fcib=393) 9.4 GM/DL 13.0-16.8 HEMATOCRIT (BEAKER) (test skmw=989) 30.0 % 40.0-50.0 MEAN CORPUSCULAR VOLUME (BEAKER) (test vtym=963) 74.9 fL 82.0-98.0 MEAN CORPUSCULAR HEMOGLOBIN (BEAKER) (test 23.5 pg 27.0-33.0 izjl=087) MEAN CORPUSCULAR HEMOGLOBIN CONC (BEAKER) (test 31.4 GM/DL 32.0-36.0 pqas=499) RED CELL DISTRIBUTION WIDTH (BEAKER) (test 20.1 % 10.3-14.2 hroc=922) PLATELET COUNT (BEAKER) (test wqdo=923) 392 K/CU MM 150-430 MEAN PLATELET VOLUME (BEAKER) (test oiim=038) 6.8 fL 6.5-10.5 NUCLEATED RED BLOOD CELLS (BEAKER) (test 0 /100 WBC 0-0 fudo=645) NEUTROPHILS RELATIVE PERCENT (BEAKER) (test 45 % unnr=792) LYMPHOCYTES RELATIVE PERCENT (BEAKER) (test 40 % znsq=979) MONOCYTES RELATIVE PERCENT (BEAKER) (test 14 % iosi=143) EOSINOPHILS RELATIVE PERCENT (BEAKER) (test 1 % kyjv=145) BASOPHILS RELATIVE PERCENT (BEAKER) (test 0 % kems=456) NEUTROPHILS ABSOLUTE COUNT (BEAKER) (test 3.30 K/ L 1.80-8.00 gglb=822) LYMPHOCYTES ABSOLUTE COUNT (BEAKER) (test 2.90 K/ L 1.48-4.50 wifb=092) MONOCYTES ABSOLUTE COUNT (BEAKER) (test 1.00 K/ L 0.00-1.30 ywxk=368) EOSINOPHILS ABSOLUTE COUNT (BEAKER) (test 0.10 K/ L 0.00-0.50 zjdw=262) BASOPHILS ABSOLUTE COUNT (BEAKER) (test 0.00 K/ L 0.00-0.20 bnoj=338) (MANUAL DIFFERENTIAL)[id number] 22:21:00 Test Item Value Reference Range Comments TOTAL COUNTED (BEAKER) (test twvi=0137) WBC MORPHOLOGY (BEAKER) (test scxc=519) Normal PLT MORPHOLOGY (BEAKER) (test tlmk=073) Normal ANISOCYTOSIS (BEAKER) (test bsoz=873) 2+ moderate HYPOCHROMIA (BEAKER) (test whqy=291) 1+ few TROPONIN [id number] 22:13:00 Test Item Value Reference Range Comments TROPONIN I (BEAKER) (test qoda=664) < ng/mL 0.00-0.15 Troponin I (TnI) levels must be interpreted [...] failure, acidosis, acute neurological disease, and persistent tachyarrhythmia.CREATINE KINASE (CK), TOTAL AND [id number] 22:12:00 Test Item Value Reference Range Comments CREATINE KINASE TOTAL (BEAKER) (test wwff=796) 68 U/L 40-250 CREATINE KINASE-MB (BEAKER) (test iedx=833) 1.0 ng/mL 0.0-4.9 CREATINE KINASE-MB INDEX (BEAKER) (test jjoo=766) 1.5 % CK-MB Reference Range:<5 Normal5-10 Borderline>10 AbnormalCOMPREHENSIVE METABOLIC [id number] 22:05:00 Test Item Value Reference Range Comments TOTAL PROTEIN (BEAKER) 8.0 gm/dL 6.0-8.5 (test bwex=528) ALBUMIN (BEAKER) (test 4.7 g/dL 3.5-5.0 jkcf=3709) ALKALINE PHOSPHATASE 84 U/L 30-115 (BEAKER) (test arux=314) BILIRUBIN TOTAL (BEAKER) 0.5 mg/dL 0.1-1.2 (test ntns=705) SODIUM (BEAKER) (test 139 meq/L 135-148 jggy=536) POTASSIUM (BEAKER) (test 4.0 meq/L 3.6-5.5 bjek=435) CHLORIDE (BEAKER) (test 103 meq/L 98-106 lahr=567) CO2 (BEAKER) (test 26 meq/L 20-29 fwmi=574) BLOOD UREA NITROGEN 13 mg/dL 10-26 (BEAKER) (test eabv=455) CREATININE (BEAKER) (test 1.00 mg/dL 0.50-1.20 otql=403) GLUCOSE RANDOM (BEAKER) 118 mg/dL 70-110 (test yeah=267) CALCIUM (BEAKER) (test 10.1 mg/dL 8.5-10.5 pwwu=152) AST (SGOT) (BEAKER) (test 19 U/L 5-40 acbo=536) ALT (SGPT) (BEAKER) (test 15 U/L 5-50 iwkq=825) EGFR (BEAKER) (test 81 mL/min/1.73 sq m ESTIMATED GFR IS NOT zocy=4711) ACCURATE CREATININE CLEARANCE IN PREDICTING GLOMERULAR FILTRATION RATE. ESTIMATED GFR IS NOT APPLICABLE FOR DIALYSIS PATIENTS. PROTHROMBIN TIME/[id number] 21:58:00 Test Item Value Reference Range Comments PROTIME (BEAKER) (test ypkf=744) 10.5 seconds 9.3-12.0 INR (BEAKER) (test xgex=023) 1.0 <=5.9 RECOMMENDED COUMADIN/WARFARIN INR THERAPY RANGESSTANDARD DOSE: 2.0 - 3.0 Includes: PROPHYLAXIS forvenous thrombosis, systemic embolization; TREATMENT for venous thrombosis and/or pulmonary embolus.HIGH RISK: Target INR is 2.5-3.5 for patients with mechanical heart valves.[id number] 21:58:00 Test Item Value Reference Range Comments PARTIAL THROMBOPLASTIN TIME (BEAKER) (test 32.3 seconds 23.0-35.0 gimi=243)
[2018-01-31] MEDS ORDERED: ASPIRIN 81 MG CHEWABLE TABLET ONE (07:36)
[2018-01-31] MEDS ORDERED: NA CHLORIDE 0.9% 1,000 ML ONE (07:36)
[2018-01-31 08:15] LABS: Bicarbonate 22 mEq/L (21-31); Glucose Level 183 mg/dL (65-120); Lipase 32 U/L (22-51); Potassium 3.5 mEq/L (3.6-5.0); Sodium Level 138 mEq/L (135-145)
[2018-01-31] MEDS ORDERED: FENTANYL CITR 100 MCG/2 ML ONE (08:17)
[2018-01-31] MEDS ORDERED: ONDANSETRON 4 MG/2 ML VIAL ONE (08:17)
[2018-01-31 08:18] LABS: Absolute Lymphocytes (CBC) 1.9 K/uL (0.7-4.9); Absolute Monocytes 0.9 K/uL (0.1-1.3); Absolute Neutrophil 4.7 K/uL (1.8-8.0); Basophils % 0.5 % (0-1.3); Eosinophils % 1.1 % (0-4.4); Hematocrit 30.5 % (39.6-49.0); Lymphocytes % 24.9 % (15.3-44.8); MCH 23.4 pg (27.0-35.0); MCV 73.6 fL (80-100); MPV 7.3 fL (7.6-11.3); Monocytes % 11.2 % (3.3-12.3); RBC Red Blood Cell Count 4.14 M/uL (4.33-5.43)
[2018-01-31 08:21] LABS: ALT/SGPT 13 IU/L (10-60); AST/SGOT 26 IU/L (10-42); Albumin 4.1 g/dL (3.2-5.5); Alkaline Phosphatase 77 IU/L (42-121); BUN Blood Urea Nitrogen 14 mg/dL (6-20); Bilirubin Direct < 0.1 mg/dL (0-0.2); Bilirubin Total 0.5 mg/dL (0.3-1.2); Creatine Phosphokinase 81 IU/L (22-269); Magnesium 1.6 mg/dL (1.8-2.5); Protein, Total 7.8 g/dL (6.0-8.3); Protime INR 0.87
[2018-01-31 08:24] LABS: CKMB Creatine Kinase MB 1.7 ng/ml (0.3-4.0)
[2018-01-31] MEDS ORDERED: ONDANSETRON 4 MG/2 ML VIAL IV PRN (08:26)
[2018-01-31] MEDS ORDERED: ACETAMINOPHEN 500 MG TAB PO PRN (08:26)
--- NOTE | 2018-01-31 08:37 | EDPHYS ---
Physician Documentation [facility] Name: Christiano Serra Age: 48 yrs Sex: Male : 1970 Arrival Date: 01/31/2018 Time: 07:07 Bed 17 Private MD: ED Physician Derian Vo HPI: 01/31 07:30 This 48 yrs old Other Male presents to ER via Ambulatory with complaints of Chest Pain. lauryn 07:30 This 48 yrs old Other Male presents to ER via Ambulatory with complaints of Chest Pain. lauryn 07:30 The patient or guardian reports chest pain that is located primarily in the anterior [facility] chest wall. Onset: just prior to arrival, this morning. The pain does not radiate. Associated signs and symptoms: The patient has no apparent associated signs or symptoms. Modifying factors: The symptoms are alleviated by nothing. the symptoms are aggravated by nothing. Severity of pain: At its worst the pain was mild moderate in the emergency department the pain is unchanged. Historical: - Allergies: 07:23 ambien; iw 07:23 Morphine; iw 07:23 Toradol; iw - Home Meds: 07:23 Plavix 75 mg Oral tab 1 tab once daily [Active]; Lisinopril Oral [Active]; Lipitor Oral iw [Active]; [place] Oral [Active]; Zanaflex Oral [Active]; Belbuca buccal buccal [Active]; - PMHx: 07:23 Myocardial infarction; Hypertension; Hyperlipidemia; Factor V; iw - Immunization history:: Adult Immunizations up to date. - Family history:: not pertinent. - Social history:: Smoking status: Patient/guardian denies using tobacco. ROS: 07:30 Constitutional: Negative for fever, chills, and weight loss, Eyes: Negative for injury, lauryn pain, redness, and discharge, ENT: Negative for injury, pain, and discharge, Neck: Negative for injury, pain, and swelling, Respiratory: Negative for shortness of breath, cough, wheezing, and pleuritic chest pain, Abdomen/GI: Negative for abdominal pain, nausea, vomiting, diarrhea, and constipation, Back: Negative for injury and pain, : Negative for injury, bleeding, discharge, and swelling, MS/Extremity: Negative for injury and deformity, Skin: Negative for injury, rash, and discoloration, Neuro: Negative for headache, weakness, numbness, tingling, and seizure, Psych: Negative for depression, anxiety, suicide ideation, homicidal ideation, and hallucinations, Allergy/Immunology: Negative for hives, rash, and allergies, Endocrine: Negative for neck swelling, polydipsia, polyuria, polyphagia, and marked weight changes, Hematologic/Lymphatic: Negative for swollen nodes, abnormal bleeding, and unusual bruising. 07:30 Cardiovascular: Positive for chest pain, of the chest. Exam: 07:32 Constitutional: This is a well developed, well nourished patient who is awake, alert, lauryn and in no acute distress. Head/Face: Normocephalic, atraumatic. Eyes: Pupils equal round and reactive to light, extra-ocular motions intact. Lids and lashes normal. Conjunctiva and sclera are non-icteric and not injected. Cornea within normal limits. Periorbital areas with no swelling, redness, or edema. ENT: Nares patent. No nasal discharge, no septal abnormalities noted. Tympanic membranes are normal and external auditory canals are clear. Oropharynx with no redness, swelling, or masses, exudates, or evidence of obstruction, uvula midline. Mucous membranes moist. Neck: Trachea midline, no thyromegaly or masses palpated, and no cervical lymphadenopathy. Supple, full range of motion without nuchal rigidity, or vertebral point tenderness. No Meningismus. Chest/axilla: Normal chest wall appearance and motion. Nontender with no deformity. No lesions are appreciated. Cardiovascular: Regular rate and rhythm with a normal S1 and S2. No gallops, murmurs, or rubs. Normal PMI, no JVD. No pulse deficits. Respiratory: Lungs have equal breath sounds bilaterally, clear to auscultation and percussion. No rales, rhonchi or wheezes noted. No increased work of breathing, no retractions or nasal flaring. Abdomen/GI: Soft, non-tender, with normal bowel sounds. No distension or tympany. No guarding or rebound. No evidence of tenderness throughout. Back: No spinal tenderness. No costovertebral tenderness. Full range of motion. Male : Normal genitalia with no discharge or lesions. Skin: Warm, dry with normal turgor. Normal color with no rashes, no lesions, and no evidence of cellulitis. MS/ Extremity: Pulses equal, no cyanosis. Neurovascular intact. Full, normal range of motion. Neuro: Awake and alert, GCS 15, oriented to person, place, time, and situation. Cranial nerves II-XII grossly intact. Motor strength 5/5 in all extremities. Sensory grossly intact. Cerebellar exam normal. Normal gait. Psych: Awake, alert, with orientation to person, place and time. Behavior, mood, and affect are within normal limits. 07:53 Musculoskeletal/extremity: DVT Exam: No signs of deep vein thrombosis. no pain, no lauryn swelling, no tenderness, negative Homans' sign noted on exam, no appreciated bluish discoloration, no erythema, no increased warmth. Vital Signs: 07:23 BP 154 / 90; Pulse 103; Resp 18 S; Temp 98.2; Pulse Ox 100% on R/A; Pain 8/10; iw 08:35 BP 128 / 96; Pulse 85; Resp 17; Pulse Ox 100% on R/A; em 10:00 BP 130 / 86; Pulse 79; Resp 18; Pulse Ox 99% on R/A; em 11:03 BP 132 / 93; Pulse 75; Resp 18; Pulse Ox 99% on R/A; Pain 0/10; em MDM: 07:17 Patient medically screened. [facility] 07:32 Data reviewed: vital signs, nurses notes, lab test result(s), EKG, radiologic studies, [facility] plain films. 01/31 07:29 Order name: Basic Metabolic Panel [facility] 01/31 07:29 Order name: BNP [facility] 01/31 07:29 Order name: CBC with Diff; Complete Time: 08:34 [facility] 01/31 07:29 Order name: Ckmb 01/31 07:29 Order name: CPK 01/31 07:29 Order name: LFT's 01/31 07:29 Order name: Magnesium lauryn 01/31 07:29 Order name: PT-INR; Complete Time: 08:34 [facility] 01/31 07:29 Order name: Ptt, Activated; Complete Time: 08:34 [facility] 01/31 07:29 Order name: Troponin (emerg Dept Use Only); Complete Time: 08:34 [facility] 01/31 07:29 Order name: Lipase [facility] 01/31 07:29 Order name: UDS [facility] 01/31 07:29 Order name: TSH [facility] 01/31 08:31 Order name: Troponin I [facility] 01/31 07:29 Order name: XRAY Chest (1 view) [facility] 01/31 07:29 Order name: EKG; Complete Time: 07:30 [facility] 01/31 07:29 Order name: Cardiac monitoring; Complete Time: 07:33 [facility] 01/31 07:29 Order name: EKG - Nurse/Tech; Complete Time: 07:33 [facility] 01/31 08:31 Order name: CONS Physician Consult [facility] 01/31 08:31 Order name: Heart Healthy [facility] 01/31 08:31 Order name: Troponin I [facility] 01/31 08:33 Order name: Echo w/ Doppler [facility] 01/31 07:29 Order name: IV Saline Lock; Complete Time: 07:33 [facility] 01/31 07:29 Order name: Labs collected and sent; Complete Time: 07:33 [facility] 01/31 07:29 Order name: O2 Per Protocol; Complete Time: 07:33 [facility] 01/31 07:29 Order name: O2 Sat Monitoring; Complete Time: 07:33 [facility] Administered Medications: 07:44 Drug: Aspirin 81 mg Route: PO; em 11:11 Follow up: Response: No adverse reaction em 08:31 Drug: NS 0.9% 1000 ml Route: IV; Rate: 75 ml/hr; Site: [facility]; iw 11:10 Follow up: IV Status: Order to discontinue infusion; IV Intake: 200ml em 08:32 Drug: fentaNYL (PF) 25 mcg Route: IVP; Site: [facility]; iw 09:02 Follow up: Response: No adverse reaction em 08:32 Drug: Zofran 4 mg Route: IVP; Site: [facility]; iw 09:02 Follow up: Response: No adverse reaction em 09:58 Drug: Magnesium Sulfate 1 grams Route: IVPB; Infused Over: 1 hrs; Site: Port-a-cath; iw 11:06 Follow up: IV Status: Completed infusion em 09:58 Drug: fentaNYL (PF) 25 mcg Route: IVP; Site: Port-a-cath; iw 11:06 Follow up: Response: No adverse reaction; Pain is decreased em 09:58 Drug: Phenergan 12.5 mg Route: IVP; Site: Port-a-cath; iw 11:06 Follow up: Response: No adverse reaction; Pain is decreased em 10:00 Drug: Potassium Chloride 20 mEq Route: PO; em 11:05 Follow up: Response: No adverse reaction em Disposition: 01/31/18 08:36 Hospitalization ordered by Christoph Joseph for Observation. Preliminary diagnosis are Chest pain, unspecified, Anemia, unspecified, Hypomagnesemia, Hypokalemia. - Bed requested for Telemetry/MedSurg (observation). - Status is Observation. iw - Condition is Fair. - Problem is new. - Symptoms have improved. UTI on Admission? No Signatures: Dispatcher [employer] EDDerian Cr MD MD cha Munoz, Edgar, PRESSER HAND PRESSER HAND Diana Minaya, RN RN María Elena Marcano, RN RN df
--- NOTE | 2018-01-31 08:37 | ER ---
Nurse's Notes [facility] Name: Christiano Serra Age: 48 yrs Sex: Male : 1970 Arrival Date: 01/31/2018 Time: 07:07 Bed 17 Private MD: Diagnosis: Chest pain, unspecified;Anemia, unspecified;Hypomagnesemia;Hypokalemia Presentation: 01/31 07:18 Presenting complaint: Patient states: c/o left sided chest pain X 1 hour, constant, iw sharp, 8/10, also has some nausea, hx of NC, took 3 Nitro with no relief. Transition of care: patient was not received from another setting of care. Onset of symptoms was January 31, 2018. Initial Sepsis Screen: Does the patient meet any 2 criteria? No. Patient's initial sepsis screen is negative. Does the patient have a suspected source of infection? No. Patient's initial sepsis screen is negative. Care prior to arrival: Medication(s) given: Nitroglycerin, 0.4 mg SL x 3. 07:18 Method Of Arrival: Ambulatory iw 07:18 Acuity: RADHA 2 iw Historical: - Allergies: 07:23 ambien; iw 07:23 Morphine; iw 07:23 Toradol; iw - Home Meds: 07:23 Plavix 75 mg Oral tab 1 tab once daily [Active]; Lisinopril Oral [Active]; Lipitor Oral iw [Active]; [place] Oral [Active]; Zanaflex Oral [Active]; Belbuca buccal buccal [Active]; - PMHx: 07:23 Myocardial infarction; Hypertension; Hyperlipidemia; Factor V; iw - Immunization history:: Adult Immunizations up to date. - Family history:: not pertinent. - Social history:: Smoking status: Patient/guardian denies using tobacco. Screenin:48 Abuse screen: Denies threats or abuse. Denies injuries from another. Nutritional iw screening: No deficits noted. Tuberculosis screening: No symptoms or risk factors identified. Fall Risk IV access (20 points). Assessment: 07:20 General: Appears in no apparent distress. Behavior is calm, cooperative. Pain: iw Complains of pain in anterior aspect of left upper chest Pain does not radiate. Pain currently is 8 out of 10 on a pain scale. Pain began 1 hour ago. Cardiovascular: Reports chest pain, nausea, Capillary refill < 3 seconds in bilateral fingers Patient's skin is warm and dry. 07:47 Reassessment: pt requesting nausea and pain medicine before starting IV fluids. iw 08:45 Reassessment: Patient appears in no apparent distress at this time. Patient and/or em family updated on plan of care and expected duration. Pain level reassessed. Patient is alert, oriented x 3, equal unlabored respirations, skin warm/dry/pink. Patient states feeling better. 11:07 Reassessment: Patient appears in no apparent distress at this time. pt request to go em AMA, reports having to catch a flight at 1400, Dr. Joseph notified, pt signed AMA and was informed of all the risks, pt verbalizes understanding, pt ambulated out of the ER. Vital Signs: 07:23 BP 154 / 90; Pulse 103; Resp 18 S; Temp 98.2; Pulse Ox 100% on R/A; Pain 8/10; iw 08:35 BP 128 / 96; Pulse 85; Resp 17; Pulse Ox 100% on R/A; em 10:00 BP 130 / 86; Pulse 79; Resp 18; Pulse Ox 99% on R/A; em 11:03 BP 132 / 93; Pulse 75; Resp 18; Pulse Ox 99% on R/A; Pain 0/10; em ED Course: 07:07 Patient arrived in ED. es 07:14 Derian Vo MD is Attending Physician. lauryn 07:18 Diana Barraza, RN is Primary Nurse. iw 07:20 Triage completed. iw 07:34 Patient has correct armband on for positive identification. Placed in gown. Side rails mh5 up X 1. environmental monitoring technician on. Pulse ox on. NIBP on. 07:36 EKG done, by ED staff, reviewed by Derian Vo MD. mh5 07:47 Accessed Port-a-Cath. using accessed w/ # 20 Rich needle, ,sterile technique, per hospital protocol. Clean \T\ dry. Dressing intact. Good blood return. Flushes easily. 07:47 Initial lab(s) drawn, by me, sent to lab. iw 07:57 X-ray completed. Portable x-ray completed in exam room. Patient tolerated procedure jb2 well. 07:58 XRAY Chest (1 view) In Process Unspecified. EDMS 08:36 Christoph Joseph MD is Hospitalizing Provider. lauryn 08:37 No provider procedures requiring assistance completed. Patient maintains SpO2 em saturation greater than 95% on room air. 08:38 Arm band placed on. em Administered Medications: 07:44 Drug: Aspirin 81 mg Route: PO; em 11:11 Follow up: Response: No adverse reaction em 08:31 Drug: NS 0.9% 1000 ml Route: IV; Rate: 75 ml/hr; Site: Port-a-cath; iw 11:10 Follow up: IV Status: Order to discontinue infusion; IV Intake: 200ml em 08:32 Drug: fentaNYL (PF) 25 mcg Route: IVP; Site: Port-a-cath; iw 09:02 Follow up: Response: No adverse reaction em 08:32 Drug: Zofran 4 mg Route: IVP; Site: Port-a-cath; iw 09:02 Follow up: Response: No adverse reaction em 09:58 Drug: Magnesium Sulfate 1 grams Route: IVPB; Infused Over: 1 hrs; Site: Port-a-cath; iw 11:06 Follow up: IV Status: Completed infusion em 09:58 Drug: fentaNYL (PF) 25 mcg Route: IVP; Site: Port-a-cath; iw 11:06 Follow up: Response: No adverse reaction; Pain is decreased em 09:58 Drug: Phenergan 12.5 mg Route: IVP; Site: Port-a-cath; iw 11:06 Follow up: Response: No adverse reaction; Pain is decreased em 10:00 Drug: Potassium Chloride 20 mEq Route: PO; em 11:05 Follow up: Response: No adverse reaction em Intake: 11:10 IV: 200ml; Total: 200ml. em Outcome: 08:36 Decision to Hospitalize by Provider. lauryn 11:30 AMA AMA form signed iw 11:30 AMA Other pt was discharged AMA in [facility] 11:35 Patient left the ED. iw Signatures: Dispatcher [employer] Derian Hernandez MD MD cha Salyer, Edna es Buechter, Jesse jb2 Munoz, Edgar, TECHNICIAN BIOLOGICAL HEALTH TECHNICIAN BIOLOGICAL HEALTH em Diana Barraza, ADRIANA RN Lilibeth Cruz [facility]
[2018-01-31] MEDS ORDERED: POTASSIUM 25 MEQ EFFERV TAB ONE (08:51)
[2018-01-31] MEDS ORDERED: MAGNESIUM SULFATE 1 gm IVPB 1 GM/100 ML BAG IV ONE (08:52)
[2018-01-31] MEDS ORDERED: PROMETHAZINE 25 MG/ML VIAL ONE (08:53)
[2018-01-31 08:54] LABS: Thyroid Stimulating Hormone 1.05 uIU/mL (0.34-5.60)
--- NOTE | 2018-01-31 09:10 | RAD REPORT ---
EXAM DESCRIPTION: Lizbet Single View01/31/2018 7:58 am CLINICAL HISTORY: Chest pain COMPARISON: February 2017 FINDINGS: The lungs appear clear of acute infiltrate. The heart is normal size. 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
--- NOTE | 2018-01-31 10:07 | EKG ---
Test Date: 2018-01-31 Test Time: 07:25:33 Veneer Joiner: [place] MEASUREMENT RESULTS: Intervals: Rate: 100 AR: 154 QRSD: 90 QT: 354 QTc: 456 [place]: P: 9 AR: 154 QRS: 8 T: 26 INTERPRETIVE STATEMENTS: Normal sinus rhythm Normal ECG Compared to ECG 07/28/2014 20:27:26 Left ventricular hypertrophy no longer present Electronically Signed On 01-31-18 10:06:57 CDT by Hair Abreu
--- NOTE | 2018-01-31 10:49 | ECHO ---
HEIGHT: ft in WEIGHT: lb oz DATE OF STUDY: 01/31/[address]: Derian Vo MD 2-DIMENSIONAL: YES M.MODE: YES DOPPLER: YES COLOR FLOW: YES TDS: YES PORTABLE: YES DEFINITY: NO BUBBLE STUDY: NO DIAGNOSIS: CHEST PAIN CARDIAC HISTORY: CATHERIZATION: YES SURGERY: NO PROSTHETIC VALVE: NO PACEMAKER: NO MEASUREMENTS (cm) DIASTOLIC (NORMALS) SYSTOLIC (NORMALS) IVSd (0.6-1.2) LA Diam (1.9-4.0) LVEF % LVIDd (3.5-5.7) LVIDs (2.0-3.5) %FS % LVPWd (0.6-1.2) Ao Diam 3.2 (2.0-3.7) 2 DIMENSIONAL ASSESSMENT: RIGHT ATRIUM: NORMAL LEFT ATRIUM: NORMAL RIGHT VENTRICLE: NORMAL LEFT VENTRICLE: NORMAL TRICUSPID VALVE: NORMAL MITRAL VALVE: NORMAL PULMONIC VALVE: NORMAL AORTIC VALVE: NORMAL PERICARDIAL EFFUSION: NONE AORTIC ROOT: NORMAL LEFT VENTRICULAR WALL MOTION: NORMAL DOPPLER/COLOR FLOW: NORMAL COMMENTS: NORMAL 2D ECHOCARDIOGRAM WITH DOPPLER. TECHNOLOGIST: Dima MARSHALL
[2018-01-31 11:54] VITALS: TEMP 98.2
[2018-01-31 11:56] VITALS: O2SAT 99
[2018-01-31 11:58] VITALS: BP 132/93
--- NOTE | 2018-01-31 14:17 | P.HP ---
Certification for Inpatient Patient admitted to: Observation With expected LOS: <2 Midnights Practitioner: I am a practitioner with admitting privileges, knowledge of patient current condition, hospital course, and medical plan of care. Services: Services provided to patient in accordance with Admission requirements found in Title 42 Section 412.3 of the Code of Federal Regulations Patient History Date of Service: 01/31/18 Reason for admission: chest pain History of Present Illness: Mr Serra is a 48 years old male with history of Factor V [place] deficiency, PE , CAD S/P stent placment in RCA and LAD, who was at work today, when he start feeling pressure like chest pain on his substernal area. He took 2 nitros but the pain did not improve. He denied nausea, vomiting, SOB or dizziness. No radiation, intensity 6/10. Since the pain did not relieved, he came to ED for evaluaiton. Initial Trop I was negative, EKG shows no acute changes. Allergies ketorolac tromethamine [From Toradol] Allergy (Intermediate, Verified 02/19/17 00:21) Hives morphine Allergy (Verified 02/19/17 00:21) Hives zolpidem tartrate [From Ambien] Adverse Reaction (Intermediate, Verified 00:21) sleepwalk Home Medications: Hydrocodone 10/APAP 325 [Erin 10/325*] 1 tab PO Q4HP PRN 07/28/14 Tizanidine [Zanaflex*] 2 tab PO Q4HP PRN 07/29/14 Atorvastatin Calcium 40 mg PO BEDTIME 02/19/17 Clopidogrel Bisulfate [Plavix*] 75 mg PO DAILY 02/19/17 Fondaparinux [Arixtra*] 7.5 mg PO BEDTIME 02/19/17 Lisinopril 10 mg PO DAILY 02/19/17 - Past Medical/Surgical History Diabetic: No -: factor 5 -: AR -: blood clots -: pericarditits -: svt -: BACK SX -: MISTI -: r chest wall surinder cath - Family History Family History: Reviewed- Non-Contributory - Social History Smoking Status: Never smoker Alcohol use: No CD- Drugs: No Caffeine use: No Review of Systems 10-point ROS is otherwise unremarkable Physical Examination - Vital Signs Temperature: 98.2 F Blood Pressure: 132/93 Pulse: 75 Respirations: 18 - Physical Exam General: Alert, In no apparent distress HEENT: Atraumatic, PERRLA, Mucous membr. moist/pink, EOMI, Sclerae nonicteric Neck: Supple, 2+ carotid pulse no bruit, No LAD, Without JVD or thyroid abnormality Respiratory: Clear to auscultation bilaterally, Normal air movement Cardiovascular: Regular rate/rhythm, Normal S1 S2 Gastrointestinal: Normal bowel sounds, No tenderness Musculoskeletal: No tenderness Integumentary: No rashes Neurological: Normal gait, Normal speech, Normal strength at 5/5 x4 extr, Normal tone, Normal affect Lymphatics: No axilla or inguinal lymphadenopathy - Studies Laboratory Data (last 24 hrs) 01/31/18 07:45: PT 10.2, INR 0.87, APTT 25.5 01/31/18 07:45: WBC 7.6, Hgb 9.7 L, Hct 30.5 L, Plt Count 400 01/31/18 07:45: B-Natriuretic Peptide 17 01/31/18 07:45: Sodium 138, Potassium 3.5 L, BUN 14, Creatinine 0.84, Glucose 183 H, Magnesium 1.6 L, Total Bilirubin 0.5, AST 26, ALT 13, Alkaline Phosphatase 77, Lipase 32 Assessment and Plan - Problems (Diagnosis) (1) Chest pain Status: Acute (2) CAD (coronary artery disease) Onset Date: 02/19/17 Status: Acute Qualifiers: Coronary Disease-Associated Artery/Lesion type: [place]arrow artery [place] vs. transplanted heart: barrow heart Associated angina: angina presence unspecified Qualified Code(s): I25.10 - Atherosclerotic heart disease of barrow coronary artery without angina pectoris (3) Factor 5 Leiden mutation, heterozygous Onset Date: 02/19/17 Status: Acute (4) History of pulmonary embolism Status: Acute - Plan The patient was admitted to the hospital under observation in order to do serial cardiac enzymes, EKG and chiropractic assistant evaluation. However, since the patient start feeling better, and he had booked a work trip to [place], he signed AMA and left the hospital. - Advance Directives Does patient have a Living Will: No Does patient have a Durable POA for Healthcare: No - Code Status/Comfort Care Code Status Assessed: Yes Code Status: Full Code
--- NOTE | 2018-01-31 14:56 | CON ---
Identification: A 48-year-old man. History Of Present Illness: Mr. Serra started to have chest pain. The pain is described as an unco mfortable feeling, lasted about a half an hour and went away. Mr. Serra has Factor V Leiden deficie ncy, history of pulmonary emboli, and is on chronic Arixtra therapy 7.5 mg subcu daily. He has last dose today. He has had numerous episodes of pericarditis and also stent was placed. He has had [facility] admissions for chest pain. Dr. Patel is his zipper joiner in [facility]. Allergies: HE IS ALLERGIC TO KETORALAC, MORPHINE, AND ZOLPIDEM. Medications: Outpatient medications have been Arixtra, Plavix, lisinopril, Lipitor, [place], and Zanaf lisa. Social History: He uses no tobacco. Rare alcohol. No illegal drugs. Physical Examination: General: He is alert, oriented, pleasant, appears to be in no distress. HEENT: Normal. Lungs: Clear. Cardiac: normal. No friction rub, gallop or murmur. Abdomen: Soft. Extremities: Normal. His EKG is normal. His enzymes are normal. I will recommend that we do a stress test on him tomorro w. If MO is ruled out, we will keep him on his usual outpatient medications and do a stress test latrell orrow. BRYANT/ANNEMARIE Voice ID: [id number] Report ID: [id number]
[2018-02-01] MEDS ORDERED: FONDAPARINUX SOD 7.5 MG/0.6 ML SQ SCH (09:00)
== END 2018-01-31 11:20 | disposition left against medical advice (07) ==
LOC: ER 07:05 → ERHOLD 08:36
PROVIDERS: ADMIT Internal Medicine; ATTEND Internal Medicine
DX: R07.9 Chest pain, unspecified (principal); D68.51 Activated protein C resistance; I25.10 Atherosclerotic heart disease of native coronary artery without angina pectoris; Z95.5 Presence of coronary angioplasty implant and graft; I25.2 Old myocardial infarction; Z86.711 Personal history of pulmonary embolism
CPT/HCPCS: 36415; 71045; 80048; 80076; 82550; 82553; 83690; 83735; 83880; 84443; 84484; 85025; 85610; 85730; 93005; 93306; 96361; 96365; 96375; 99285; G0378; J1652; J2405; J2550; J3010; J3475; J7030

== ENCOUNTER 2018-08-09 13:57 | Observation (INO) | payer BC ==
--- OUTSIDE RECORDS SUMMARY | 2018-08-09 14:00 | XMS REPORT | Clinical Summary ---
:1970 Author Organization [facility] Address [address] [place] [address] Care Team Providers Name Role Phone Asked, No Pcp Primary Care Provider Unavailable Allergies Active Allergy Reactions Severity Noted Date Comments Zolpidem 08/02/2017 Sleep walk. Morphine Rash Low 08/02/2017 Break out. Ketorolac 08/02/2017 Rashes Current Medications Prescription Sig. Disp. Refills Start Date End Date Status clopidogrel Take 75 mg by Active (PLAVIX) 75 mg mouth every tablet morning. atorvastatin Take 40 mg by Active (LIPITOR) 40 MG mouth nightly. tablet HYDROcodone-acetami Take 1 tablet Active nophen (NORCO) by mouth every 10-325 mg per 4 (four) hours tablet as needed for moderate pain. fondaparinux Inject 7.5 mg Active (ARIXTRA) 7.5 under the skin mg/0.6 mL syringe every morning. tiZANidine Take 8 mg by Active (ZANAFLEX) 4 MG mouth every 6 tablet (six) hours as needed for muscle spasms. buprenorphine HCl Apply 300 mcg Active (BELBUCA) 300 mcg to cheek 2 film (two) times a day. lisinopril Take 5 mg by Active (PRINIVIL,ZESTRIL) mouth every 5 mg tablet morning. promethazine Take 25 mg by 0 11/17/2017 Active (PHENERGAN) 25 MG mouth every 4 tablet (four) hours as needed. BYSTOLIC 20 mg Take 20 mg by 0 11/17/2017 Active tablet mouth every morning. nitroglycerin Place 0.4 mg Active (NITROSTAT) 0.4 MG under the SL tablet tongue every 5 (five) minutes as needed. lisinopril Take 10 mg by 11/26/2017 Discontinued (PRINIVIL,ZESTRIL) mouth daily. 10 mg tablet HYDROcodone-acetami Take 1 tablet 11/26/2017 Discontinued nophen (NORCO) by mouth every 10-325 mg per 4 (four) hours tablet as needed. isosorbide Take 3 tablets 90 tablet 0 05/14/2018 06/13/2018 mononitrate (IMDUR) (90 mg total) 30 MG 24 hr tablet by mouth daily for 30 days. 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 CAD (coronary artery disease) 09/02/2016 Encounters Date Type Specialty Care Team Description 07/28/2018 Procedure Pass General Surgery 05/12/2018 - Hospital Encounter General Surgery Mima, Chest pain in adult (Primary Dx); 05/13/2018 MD Penny Acquired coagulation factor deficiency; Coronary artery disease involving ute heart with unstable angina pectoris, unspecified vessel or lesion type; Other chronic pulmonary embolism without acute cor pulmonale 05/02/2018 Emergency Emergency Saeed Diana Chest pain, Medicine MD Jackie unspecified type (Primary Dx) 12/12/2017 - Hospital Encounter General Internal Bryec Mcgowan, 12/15/2017 Medicine DO 12/12/2017 Orders Only General Internal Bryce Mcgowan Medicine DO 11/26/2017 - Hospital Encounter General Surgery Serenity, Chest pain in adult (Primary Dx); 11/27/2017 Alejandro Garza Acquired coagulation factor deficiency; Coronary artery disease involving ute heart with unstable angina pectoris, unspecified vessel or lesion type 08/08/2017 Hospital Encounter General Internal Wiliam Sanderson Medicine MD after 08/08/2017 Family History Medical History Relation Name Comments [...] Vital Sign Reading Time Taken Blood Pressure 147/90 05/13/2018 11:40 AM CDT Pulse 94 05/13/2018 11:40 AM CDT Temperature 36.9 C (98.4 F) 05/13/2018 11:40 AM CDT Respiratory Rate 20 05/13/2018 11:40 AM CDT Oxygen Saturation 99% 05/13/2018 11:40 AM CDT Inhaled Oxygen Concentration - - Weight 87.7 kg (193 lb 4.8 oz) 05/13/2018 12:04 AM CDT Height 170.2 cm (5' 7") 05/13/2018 12:04 AM CDT Body Mass Index 30.28 05/13/2018 12:04 AM CDT Plan of Treatment Health Maintenance Due Date Last Done Comments INFLUENZA VACCINE 05/11/2018 09/09/2015, 08/11/2012 Procedures Procedure Name Priority Date/Time Associated Comments Diagnosis TRANSFUSE RED BLOOD Routine 06/15/2018 5:50 CELLS PM CDT TRANSFUSE RED BLOOD Routine 06/15/2018 5:50 CELLS PM CDT TROPONIN STAT 05/13/2018 12:34 Results for this PM CDT procedure are in the results section. PROTHROMBIN TIME WITH Routine 05/13/2018 6:30 Results for this INR AM CDT procedure are in the results section. ECG 12-LEAD Routine 05/13/2018 5:49 Results for this AM CDT procedure are in the results section. SMEAR REVIEW Routine 05/13/2018 12:35 Results for this AM CDT procedure are in the results section. HC COMPLETE BLD COUNT Routine 05/13/2018 12:35 Results for this W/AUTO DIFF AM CDT procedure are in the results section. ZZESTIMATED GFR Timed 05/13/2018 12:35 Results for this AM CDT procedure are in the results section. TROPONIN Timed 05/13/2018 12:35 Results for this AM CDT procedure are in the results section. COMPREHENSIVE METABOLIC Timed 05/13/2018 12:35 Results for this PANEL AM CDT procedure are in the results section. TROPONIN Routine 05/02/2018 12:05 Results for this PM CDT procedure are in the results section. SMEAR REVIEW STAT 05/02/2018 10:03 Results for this AM CDT procedure are in the results section. PARTIAL THROMBOPLASTIN STAT 05/02/2018 10:03 Results for this TIME (PTT) AM CDT procedure are in the results section. PROTHROMBIN TIME WITH STAT 05/02/2018 10:03 Results for this INR AM CDT procedure are in the results section. ZZESTIMATED GFR STAT 05/02/2018 10:03 Results for this AM CDT procedure are in the results section. D-DIMER STAT 05/02/2018 10:03 Results for this AM CDT procedure are in the results section. CREATINE KINASE, TOTAL STAT 05/02/2018 10:03 Results for this (CPK) AM CDT procedure are in the results section. TROPONIN STAT 05/02/2018 10:03 Results for this AM CDT procedure are in the results section. COMPREHENSIVE METABOLIC STAT 05/02/2018 10:03 Results for this PANEL AM CDT procedure are in the results section. HC COMPLETE BLD COUNT STAT 05/02/2018 10:03 Results for this W/AUTO DIFF AM CDT procedure are in the results section. XR CHEST 1 VW PORTABLE STAT 05/02/2018 9:42 Results for this AM CDT procedure are in the results section. ECG ED PRELIMINARY Routine 05/02/2018 9:27 Results for this INTERPRETATION AM CDT procedure are in the results section. ECG 12-LEAD STAT 05/02/2018 9:18 Results for this AM CDT procedure are in the results section. PREPARE RBC Timed 12/14/2017 10:28 Results for this AM [employer] procedure are in the results section. DIRECT TISH' (MAURI) Timed 12/14/2017 10:28 Results for this AM [employer] procedure are in the results section. ANTIBODY IDENTIFICATION Timed 12/14/2017 10:28 Results for this AM [employer] procedure are in the results section. TYPE AND SCREEN Routine 12/14/2017 10:28 Results for this AM [employer] procedure are in the results section. HC COMPLETE BLD COUNT STAT 12/14/2017 8:35 Results for this W/AUTO DIFF AM [employer] procedure are in the results section. VANCOMYCIN LEVEL, Timed 12/14/2017 8:35 Results for this TROUGH AM [employer] procedure are in the results section. CT ANGIOGRAM PE CHEST Routine 12/13/2017 2:28 Results for this PM [employer] procedure are in the results section. BLOOD CULTURE, AEROBIC Routine 12/13/2017 10:40 Results for this & ANAEROBIC AM [employer] procedure are in the results section. INFLUENZA ANTIGEN Routine 12/13/2017 10:10 Results for this AM [employer] procedure are in the results section. ZZESTIMATED GFR Routine 12/13/2017 5:10 Results for this AM [employer] procedure are in the results section. HC COMPLETE BLD COUNT Routine 12/13/2017 5:10 Results for this W/AUTO DIFF AM [employer] procedure are in the results section. BASIC METABOLIC PANEL Routine 12/13/2017 5:10 Results for this AM [employer] procedure are in the results section. TROPONIN Timed 12/13/2017 12:07 Results for this AM [employer] procedure are in the results section. TROPONIN Timed 12/12/2017 2:47 Results for this PM [employer] procedure are in the results section. LIPID PANEL Routine 12/12/2017 2:47 Results for this PM [employer] procedure are in the results section. TROPONIN Timed 11/27/2017 11:47 Results for this AM [employer] procedure are in the results section. ECG 12-LEAD Routine 11/27/2017 11:02 Results for this AM [employer] procedure are in the results section. CBC WITH PLATELET AND Timed 11/27/2017 5:38 Results for this DIFFERENTIAL AM [employer] procedure are in the results section. BASIC METABOLIC PANEL Timed 11/27/2017 5:38 Results for this AM [employer] procedure are in the results section. ZZESTIMATED GFR Timed 11/27/2017 5:38 Results for this AM [employer] procedure are in the results section. TROPONIN Timed 11/27/2017 5:38 Results for this AM [employer] procedure are in the results section. TROPONIN Routine 11/26/2017 11:35 Results for this PM [employer] procedure are in the results section. ECG 12-LEAD Routine 11/26/2017 10:59 Results for this PM [employer] procedure are in the results section. after 08/08/2017 Results Transfuse RBC (06/15/2018 5:50 PM)Only the most recent of2 resultswithin the time period is included.Troponin (05/13/2018 12:34 PM)Only the most recent of9 resultswithin the time period is included. Troponin <0.300 0.000 - 0.300 ng/mL [facility] DEPARTMENT OF Comment: PATHOLOGY AND GENOMIC 0.30 - 1.49 ng/mlMay indicate increased risk of acute MEDICINE coronary syndrome. >=1.5 ng/mlConsistent with acute myocardial infarction. The diagnostic value of a single normal or non-diagnostic result is questionable.Serial samples at 2-6 hour intervals are required to rule out acute myocardial injury. Specimen Plasma specimen Performing Organization Address City/[facility]/Zipcode Phone Number [facility] AND [address] [place] [address] [place] [address] [facility] Prothrombin time with INR (05/13/2018 6:30 AM)Only the most recent of2 resultswithin the time period is included. Prothrombin time 12.6 12.0 - 15.0 sec [facility] DEPARTMENT OF PATHOLOGY AND GENOMIC MEDICINE INR 0.9 [facility] DEPARTMENT OF Comment: PATHOLOGY AND GENOMIC The International Normalized Ratio (INR) is a therapeutic MEDICINE monitoring tool for patients who are stable on oral anticoagulant therapy. An INR of 2.0-3.0 is suggested for deep vein thrombosis/pulmonary embolism. Specimen Blood Performing Organization Address [facility] Phone Number [facility] AND [address] [place] [address] [place] [address] [facility] ECG 12 lead (05/13/2018 5:49 AM)Only the most recent of4 resultswithin the time period is included. Ventricular rate 85 [facility] Atrial rate 85 [facility] PA interval 158 [facility] QRSD interval 78 [facility] QT interval 368 [facility] QTC interval 437 [facility] P axis 1 35 [facility] QRS axis 1 32 [facility] T wave axis 12 [facility] EKG impression Normal sinus rhythm-Cannot rule out Anterior infarct (cited on or before 13-MAY-2018)-Abnormal ECG-In automated comparison with ECG of 2017 05:48,-fusion complexes are no longer present-premature ventricular complexes are no longer [facility] present-premature supraventricular complexes are no longer present- Performing Organization Address City/[facility]/Zipcode Phone Number [facility] MUSE [address] [place] [address] Smear review (05/13/2018 12:35 AM)Only the most recent of2 resultswithin the time period is included. Platelet slide review Antonia adequate [facility] DEPARTMENT OF PATHOLOGY AND GENOMIC MEDICINE Anisocytosis Moderate [facility] DEPARTMENT OF PATHOLOGY AND GENOMIC MEDICINE Tear drop cells Occasional [facility] DEPARTMENT OF PATHOLOGY AND GENOMIC MEDICINE Schistocytes Occasional [facility] DEPARTMENT OF PATHOLOGY AND GENOMIC MEDICINE Performing Organization Address [facility] Phone Number [facility] PATHOLOGY AND [address] [place] [address] [place] [address] [facility] Estimated GFR (05/13/2018 12:35 AM)Only the most recent of4 resultswithin the time period is included. GFR Non Af Amer 80 mL/min/1.73 m2 [facility] DEPARTMENT OF PATHOLOGY AND GENOMIC MEDICINE GFR Af Amer >90 mL/min/1.73 m2 [facility] DEPARTMENT OF Comment: PATHOLOGY AND GENOMIC Chronic kidney disease: <60 mL/min/1.73m2 MEDICINE Kidney failure: <15 mL/min/1.73m2 The estimated GFR is calculated from the IDMS-traceable Modification of Diet in Renal Disease Equation. The accuracy of the calculation is poor when the creatinine is normal. Calculated values >90 mL/min/1.73m2 are not reported. This equation has not been validated in children (<18 years), women, the elderly (>70 years), or ethnic groups other than Caucasians and Americans. Specimen Plasma specimen Performing Organization Address City/[facility] Phone Number [facility] AND [address] [place] [address] [facility] CBC with platelet and differential (05/13/2018 12:35 AM)Only the most recent of5 resultswithin the time period is included. WBC 9.59 4.50 - 11.00 k/uL [facility] DEPARTMENT OF PATHOLOGY AND GENOMIC MEDICINE RBC 3.86 (L) 4.40 - 6.00 m/uL [facility] DEPARTMENT OF PATHOLOGY AND GENOMIC MEDICINE HGB 9.7 (L) 14.0 - 18.0 g/dL [facility] DEPARTMENT OF PATHOLOGY AND GENOMIC MEDICINE HCT 31.2 (L) 41.0 - 51.0 % [facility] DEPARTMENT OF PATHOLOGY AND GENOMIC MEDICINE MCV 80.8 (L) 82.0 - 100.0 fL [facility] DEPARTMENT OF PATHOLOGY AND GENOMIC MEDICINE MCH 25.1 (L) 27.0 - 34.0 pg [facility] DEPARTMENT OF PATHOLOGY AND GENOMIC MEDICINE MCHC 31.1 31.0 - 37.0 g/dL [facility] DEPARTMENT OF PATHOLOGY AND GENOMIC MEDICINE RDW - SD 75.7 (H) 37.0 - 55.0 fL [facility] DEPARTMENT OF PATHOLOGY AND GENOMIC MEDICINE MPV 8.9 8.8 - 13.2 fL [facility] DEPARTMENT OF PATHOLOGY AND GENOMIC MEDICINE Platelet count 248 150 - 400 k/uL [facility] DEPARTMENT OF PATHOLOGY AND GENOMIC MEDICINE Nucleated RBC 0.00 /100 WBC [facility] DEPARTMENT OF PATHOLOGY AND GENOMIC MEDICINE Neutrophils 45.8 39.0 - 69.0 % [facility] DEPARTMENT OF PATHOLOGY AND GENOMIC MEDICINE Lymphocytes 38.3 25.0 - 45.0 % [facility] DEPARTMENT OF PATHOLOGY AND GENOMIC MEDICINE Monocytes 15.3 (H) 0.0 - 10.0 % [facility] DEPARTMENT OF PATHOLOGY AND GENOMIC MEDICINE Eosinophils 0.3 0.0 - 5.0 % [facility] DEPARTMENT OF PATHOLOGY AND GENOMIC MEDICINE Basophils 0.1 0.0 - 1.0 % [facility] DEPARTMENT OF PATHOLOGY AND GENOMIC MEDICINE Specimen Blood Performing Organization Address City/State/Zipcode Phone Number [facility] DEPARTMENT OF [facility] AND [address] [place] [address] [facility] Comprehensive metabolic panel (05/13/2018 12:35 AM)Only the most recent of2 resultswithin the time period is included. Sodium 139 135 - 148 mEq/L [facility] DEPARTMENT OF PATHOLOGY AND GENOMIC MEDICINE Potassium 3.5 3.5 - 5.0 mEq/L [facility] DEPARTMENT OF PATHOLOGY AND GENOMIC MEDICINE Chloride 103 98 - 112 mEq/L [facility] DEPARTMENT OF PATHOLOGY AND GENOMIC MEDICINE CO2 24 24 - 31 mEq/L [facility] DEPARTMENT OF PATHOLOGY AND GENOMIC MEDICINE Anion gap 12@ANIO 7 - 15 mEq/L [facility] DEPARTMENT OF PATHOLOGY AND GENOMIC MEDICINE BUN 22 (H) 6 - 20 mg/dL [facility] DEPARTMENT OF PATHOLOGY AND GENOMIC MEDICINE Creatinine 1.0 0.7 - 1.2 mg/dL [facility] DEPARTMENT OF PATHOLOGY AND GENOMIC MEDICINE Glucose 102 (H) 65 - 99 mg/dL [facility] DEPARTMENT OF PATHOLOGY AND GENOMIC MEDICINE Calcium 8.1 (L) 8.3 - 10.2 mg/dL [facility] DEPARTMENT OF PATHOLOGY AND GENOMIC MEDICINE Protein 6.8 6.3 - 8.3 g/dL [facility] DEPARTMENT OF Comment: PATHOLOGY AND GENOMIC [place] 4.6-7.0 g/dL MEDICINE 1 week 4.4-7.6 g/dL 7 months-1year5.1-7.3 g/dL 1-2 years5.6-7.5 g/dL >3 years6.0-8.0 g/dL 18-150 6.3-8.3 g/dL Albumin 4.1 3.5 - 5.0 g/dL [facility] DEPARTMENT OF PATHOLOGY AND [employer] [facility] A/G ratio 1.5 0.7 - 3.8 [facility] DEPARTMENT OF PATHOLOGY AND [employer] [facility] Alkaline phosphatase 62 40 - 129 U/L [facility] DEPARTMENT OF PATHOLOGY AND [employer] MEDICINE AST 16 10 - 50 U/L [facility] DEPARTMENT OF PATHOLOGY AND [employer] MEDICINE ALT 11 5 - 50 U/L [facility] DEPARTMENT OF PATHOLOGY AND [employer] [facility] Total bilirubin 0.4 0.0 - 1.2 mg/dL [facility] DEPARTMENT OF PATHOLOGY AND [employer] [facility] Specimen Plasma specimen Performing Organization Address [facility] Phone Number [facility] DEPARTMENT OF PATHOLOGY AND [address] [place] [address] Partial thromboplastin time, activated (05/02/2018 10:03 AM) PTT 34.9 23.0 - 36.0 sec [facility] DEPARTMENT OF Comment: PATHOLOGY AND [facility] PTT therapeutic range for unfractionated heparin is MEDICINE 61.0-112.0 seconds which corresponds to Anti-Xa 0.3-0.7 U/ml. Specimen Blood Performing Organization Address [facility] Phone Number [facility] AND [address] [place] [address] [place], [place] [id number] [place] [address] D-dimer (05/02/2018 10:03 AM) D-dimer <0.27 0.00 - 0.40 ug/mL FEU [facility] DEPARTMENT OF Comment: PATHOLOGY AND [facility] Units are ug/ml Fibrinogen Equivalent Unit. MEDICINE When combined with low clinical probability, D-dimer [...] trauma, post-operative states, sepsis, and malignancies. Specimen Blood Performing Organization Address [facility] Phone Number [facility] DEPARTMENT OF PATHOLOGY AND [address] [place] [address] GENOMIC MEDICINE Creatine kinase, total (CPK) (05/02/2018 10:03 AM) Creatine kinase 150 39 - 308 U/L [facility] DEPARTMENT OF PATHOLOGY AND GENOMIC MEDICINE Specimen Plasma specimen Performing Organization Address [facility] Phone Number [facility] DEPARTMENT OF PATHOLOGY AND [address] [place] [address] GENOMIC MEDICINE XR Chest 1 Vw Portable (05/02/2018 9:42 AM) Narrative Performed At EXAMINATION:XR CHEST 1 VW PORTABLE RADIANT CLINICAL HISTORY:chest pain COMPARISON:Determined 2014 FINDINGS: The heart is normal in size. The mediastinum is unremarkable. The lungs are clear. A right-sided ported central catheter is in place its tip projects the superior vena cava above the right atrium IMPRESSION: No acute finding is visualized [id number] Procedure Note Hm Interface, Radiology Results Incoming - 05/02/2018 10:10 AM CDT EXAMINATION: XR CHEST 1 VW PORTABLE CLINICAL HISTORY: chest pain COMPARISON: Determined 2014 FINDINGS: The heart is normal in size. The mediastinum is unremarkable. The lungs are clear. A right-sided ported central catheter is in place its tip projects the superior vena cava above the right atrium IMPRESSION: No acute finding is visualized [id number] Performing Organization Address [facility] Phone Number [facility] [address] [place] [address] ECG ED Preliminary Interpretation - NOT AN ORDER (05/02/2018 9:27 AM) Narrative Performed At Saeed Diana MD 05/02/20187:36 PM ECG ED Preliminary Interpretation - Not an Order Performed by: SAEED DIANA Authorized by: SAEED DIANA ECG reviewed by ED Physician in the absence of a perinatal coordinator: yes (read at 0921) Interpretation: Interpretation: normal Rate: ECG rate:87 ECG rate assessment: normal Rhythm: Rhythm: sinus rhythm Ectopy: Ectopy: none QRS: QRS axis:Normal Conduction: Conduction: normal ST segments: ST segments:Normal T waves: T waves: normal Direct Tish' (MAURI) (12/14/2017 10:28 AM) Direct Tish POS [facility] DEPARTMENT OF PATHOLOGY Comment: AND GENOMIC MEDICINE testing performed at [facility], called kian in [facility]main with critical 12/14/17 at 2000 Performing Organization Address City/[facility]/Zipcode Phone Number [facility] DEPARTMENT OF PATHOLOGY AND [id number] [place] [address] [place] [address] GENOMIC MEDICINE Antibody identification (12/14/2017 10:28 AM) Antibody ID POS, Anti-EComment: ADDING [facility] DEPARTMENT OF PATHOLOGY AND [facility] GENOMIC MEDICINE Antibody ID POS, Anti-KellComment: ADDING [facility] DEPARTMENT OF PATHOLOGY AND [facility] GENOMIC MEDICINE Antibody ID POS, Bg AntibodyComment: [facility] DEPARTMENT OF PATHOLOGY AND ADDING [facility] GENOMIC MEDICINE Performing Organization Address City/[facility]/Zipcode Phone Number [facility] DEPARTMENT OF PATHOLOGY AND [id number] [place] [address] [place] [id number] GENOMIC MEDICINE Prepare RBC, 2 Units (12/14/2017 10:28 AM) Product name Red Blood Cells -1, [facility] DEPARTMENT OF Leukored PATHOLOGY AND GENOMIC MEDICINE Unit number [id number] [facility] DEPARTMENT OF PATHOLOGY AND GENOMIC MEDICINE Product code [id number] [facility] DEPARTMENT OF PATHOLOGY AND GENOMIC MEDICINE Dispense status Transfused [facility] DEPARTMENT OF PATHOLOGY AND GENOMIC MEDICINE Blood expiration date [facility] DEPARTMENT OF PATHOLOGY AND GENOMIC MEDICINE Blood type code 6200 [facility] DEPARTMENT OF PATHOLOGY AND GENOMIC MEDICINE Blood type A POSITIVE [facility] DEPARTMENT OF PATHOLOGY AND GENOMIC MEDICINE Product name Red Blood Cells -1, [facility] DEPARTMENT OF Leukored PATHOLOGY AND GENOMIC MEDICINE Unit number [id number] [facility] DEPARTMENT OF PATHOLOGY AND GENOMIC MEDICINE Product code [id number] [facility] DEPARTMENT OF PATHOLOGY AND GENOMIC MEDICINE Dispense status Transfused [facility] DEPARTMENT OF PATHOLOGY AND GENOMIC MEDICINE Blood expiration date [facility] DEPARTMENT OF PATHOLOGY AND GENOMIC MEDICINE Blood type code 6200 [facility] DEPARTMENT OF PATHOLOGY AND GENOMIC MEDICINE Blood type A POSITIVE [facility] DEPARTMENT OF PATHOLOGY AND GENOMIC MEDICINE Performing Organization Address City/[facility]/Zipcode Phone Number [facility] DEPARTMENT OF PATHOLOGY AND [id number] [place] [address] [place] [address] GENOMIC MEDICINE Type and screen (12/14/2017 10:28 AM) ABO grouping AB [facility] DEPARTMENT OF PATHOLOGY AND GENOMIC MEDICINE Rh type POS [facility] DEPARTMENT OF PATHOLOGY AND GENOMIC MEDICINE Antibody screen POS [facility] DEPARTMENT OF PATHOLOGY AND GENOMIC MEDICINE Specimen Blood Performing Organization Address [facility] [place]/[facility] Phone Number [facility] DEPARTMENT OF PATHOLOGY AND [id number] [place] [address] [facility] Vancomycin level, trough (12/14/2017 8:35 AM) Vancomycin, trough 6.1 (L) 10.0 - 20.0 ug/mL [facility] DEPARTMENT OF Comment: PATHOLOGY AND GENOMIC Therapeutic Ranges: MEDICINE Peak 30.0 - 40.0 ug/mL Zyeexu31.0 - 20.0 ug/mL Specimen Serum Performing Organization Address [facility] [place]/[facility] Phone Number [facility] PATHOLOGY AND [id number] [place] [address] [facility] [address] Angiogram Pe Chest (12/13/2017 2:28 PM) Narrative Performed At EXAMINATION: RADIANT CT ANGIOGRAM PE CHEST CLINICAL HISTORY:47 years [...] 2. Mild scarring at the lung bases. [id number] Procedure Note Interface, Radiology Results Incoming - 12/13/2017 2:52 PM OPTICAL ELEMENT COATER EXAMINATION: CT ANGIOGRAM PE CHEST CLINICAL HISTORY:47 [...] 2. Mild scarring at the lung bases. [id number] Performing Organization Address City/[facility]/Zipcode Phone Number [facility] [address] [place] [address] Blood culture, aerobic & anaerobic (12/13/2017 10:40 AM) Blood culture isolate No growth after 5 days of incubation. [facility] DEPARTMENT OF Comment: PATHOLOGY AND GENOMIC Specimen Information MEDICINE Specimen Source: Blood Specimen Site: Line, port-a-cath Right Specimen Blood - Line, port-a-cath Performing Organization Address City/[facility] Phone Number [facility] DEPARTMENT OF PATHOLOGY AND [address] [place] [address] [employer] [facility] Influenza antigen (12/13/2017 10:10 AM) Influenza antigen Negative for Influenza A/B antigen. [facility] DEPARTMENT OF Comment: PATHOLOGY AND GENOMIC Specimen Information MEDICINE Specimen Source: Nares Specimen Site: Not specified Specimen Nares - Not specified Performing Organization Address City/[facility]/Zipcode Phone Number [facility] DEPARTMENT OF PATHOLOGY AND [address] [place] [address] [employer] [facility] Basic metabolic panel (12/13/2017 5:10 AM)Only the most recent of2 resultswithin the time period is included. Sodium 133 (L) 135 - 148 mEq/L [facility] DEPARTMENT OF PATHOLOGY AND GENOMIC MEDICINE Potassium 4.1 3.5 - 5.0 mEq/L [facility] DEPARTMENT OF PATHOLOGY AND GENOMIC MEDICINE Chloride 97 (L) 98 - 112 mEq/L [facility] DEPARTMENT OF PATHOLOGY AND GENOMIC MEDICINE CO2 24 24 - 31 mEq/L [facility] DEPARTMENT OF PATHOLOGY AND GENOMIC [facility] Anion gap 12 7 - 15 mEq/L [facility] DEPARTMENT OF Comment: PATHOLOGY AND GENOMIC Starting from January , anion gap calculation MEDICINE no longer incorporates potassium. Please note the change. BUN 20 6 - 20 mg/dL [facility] DEPARTMENT OF PATHOLOGY AND GENOMIC MEDICINE Creatinine 1.3 (H) 0.7 - 1.2 mg/dL [facility] DEPARTMENT OF PATHOLOGY AND GENOMIC MEDICINE Glucose 119 (H) 65 - 99 mg/dL [facility] DEPARTMENT OF PATHOLOGY AND GENOMIC MEDICINE Calcium 8.8 8.3 - 10.2 mg/dL [facility] DEPARTMENT OF PATHOLOGY AND GENOMIC [facility] Specimen Plasma specimen Performing Organization Address City/State/Zipcode Phone Number [facility] DEPARTMENT OF PATHOLOGY AND [address] [place] [address] GENOMIC [facility] Lipid panel (12/12/2017 2:47 PM) Cholesterol 189 <200 mg/dL [facility] DEPARTMENT OF PATHOLOGY AND GENOMIC MEDICINE Triglycerides 65 <150 mg/dL [facility] DEPARTMENT OF PATHOLOGY AND GENOMIC MEDICINE HDL cholesterol 72 >40 mg/dL [facility] DEPARTMENT OF PATHOLOGY AND GENOMIC MEDICINE LDL cholesterol 116 (H)Comment: Result <100 mg/dL [facility] obtained by direct LDL PATHOLOGY AND GENOMIC measurement MEDICINE Lipid panel interpretation SeeBelow [facility] DEPARTMENT OF Comment: PATHOLOGY AND GENOMIC Total Cholesterol (mg/dL) MEDICINE <200 Desirable 391-750Ghtbtryese-mxga >=240High Triglycerides (mg/dL) <150 Normal [id number]-[id number] 200-499High >=500Very high HDL Cholesterol (mg/dL) <40Low (male) <40Low (female) LDL Cholesterol (mg/dL) <100 Optimal 100-129Near or above optimal [id number]-[id number] 160-189High >=190Very high Risk Catergories that modify [...] persons with high triglycerides (>=200 mg/dL) Specimen Plasma specimen Performing Organization Address City/State/Zipcode Phone Number [facility] DEPARTMENT OF PATHOLOGY AND [address] [place] [address] [employer] [facility] after 08/08/2017 Insurance Payer Benefit Plan / Group Subscriber ID Type Phone Address [employer] EXCHANGE [employer] EXCH xxxxxxxxxxxx Exchange Work: [phone] [phone] [facility] [address] [place], [place] Home: [phone]
--- OUTSIDE RECORDS SUMMARY | 2018-08-09 14:00 | XMS REPORT | Clinical Summary ---
:1970 Author Organization [facility] Address [address] [place] [address] Care Team Providers Name Role Phone Blanco Marquez Primary Care Provider Unavailable Allergies Active Allergy Reactions Severity Noted Date Comments Zolpidem Other (See Comments) Low 05/23/2010 Sleep walk Per patient "Sleep Walking". Morphine Rash Medium 12/30/2014 Ketorolac Rash Medium 09/12/2012 Able to take other NSAIDs like motrin and aleve Medications Medication Sig Dispensed Refills Start End Date Status Date promethazine 25 mg as needed 0 Active (PHENERGAN) 12.5 MG for Nausea . 6 tablet HYDROcodone-acetami Take 1 tablet by 0 Active nophen (NORCO mouth every 4 10-325) 10-325 mg (four) hours as per tablet needed for Pain. clopidogrel Take 75 mg by 0 Active (PLAVIX) 75 mg mouth daily. tablet atorvastatin Take 40 mg by 0 Active (LIPITOR) 40 MG mouth nightly. tablet tiZANidine Take 2 tablets (8 30 tablet 0 Active (ZANAFLEX) 4 MG mg total) by mouth 8 tabletIndications: 3 (three) times Muscle Spasm daily. cyanocobalamin 1000 Take 1 tablet 30 tablet 0 04/27/20 Active MCG tablet (1,000 mcg total) 8 19 by mouth daily. folic acid Take 1 tablet (1 30 tablet 0 04/27/20 Active (FOLVITE) 1 MG mg total) by mouth 8 19 tablet daily. metoprolol Take 1 tablet (25 60 tablet 0 04/26/20 Active (LOPRESSOR) 25 MG mg total) by mouth 8 19 tablet 2 (two) times daily. clopidogrel Take 75 mg by 0 Active (PLAVIX) 75 mg mouth. tablet lisinopril Take 5 mg by 0 Active (PRINIVIL,ZESTRIL) mouth. 5 MG tablet lisinopril Take 1 tablet (5 30 tablet 0 04/26/20 Active (PRINIVIL,ZESTRIL) mg total) by mouth 8 19 5 MG tablet daily. warfarin (COUMADIN) Take 2 tablets (15 30 tablet 0 04/26/20 Active 7.5 MG tablet mg total) by mouth 8 19 every evening. tiZANidine Take 8 mg by mouth 0 04/26/20 Discontinued (ZANAFLEX) 4 MG every 4 (four) 18 tabletIndications: hours as needed . Muscle Spasm lisinopril Take 5 mg by mouth 0 01/23/20 Discontinued (PRINIVIL,ZESTRIL) daily . 18 10 MG tablet fondaparinux Inject 7.5 mg 0 04/26/20 Discontinued (ARIXTRA) 7.5 subcutaneously 18 mg/0.6 mL Syrg daily. injection isosorbide Take 30 mg by 0 01/25/20 Discontinued mononitrate (IMDUR) mouth 2 (two) 18 30 MG 24 hr tablet times daily. buprenorphine HCl Place 300 mcg 0 04/18/20 Discontinued (BELBUCA) 300 mcg inside cheek 2 18 FilmIndications: (two) times daily. Chronic Pain pantoprazole Take 1 tablet (40 30 tablet 0 04/18/20 Discontinued (PROTONIX) 40 MG mg total) by mouth 7 18 tablet daily. lisinopril Take 1 tablet (10 30 tablet 0 04/26/20 Discontinued (PRINIVIL,ZESTRIL) mg total) by mouth 8 18 10 MG tablet daily. tiZANidine Take 2 tablets (8 30 tablet 0 05/06/20 (ZANAFLEX) 4 MG mg total) by mouth 8 18 tabletIndications: 3 (three) times Muscle Spasm daily as needed for up to 10 days. Active Problems Problem Noted Date Chest pain of unknown etiology 02/08/2017 Chest pain 02/08/2017 Heart attack 08/11/2016 Chest pain of uncertain etiology 08/14/2015 History of pericarditis 04/12/2015 Pulmonary embolus 12/09/2012 Chronic back pain Hypertension Factor 5 Leiden mutation, heterozygous Port-A-Cath in place Encounters Date Type Specialty Care Team Description 05/24/2018 Emergency Emergency Medicine Ros Wade Recurrent pulmonary embolism (HCC) (Primary Dx); MD Raquel Factor 5 Leiden mutation, heterozygous (HCC); Chest pain in adult; Sinus tachycardia; Lactic acidosis 05/24/2018 Orders Only General Internal Medicine 04/18/2018 Orders Only General Internal Medicine 04/17/2018 - Hospital Encounter General Internal Mark, Will, DO Other acute pulmonary embolism without acute cor pulmonale (HCC) (Primary Dx); 04/26/2018 Medicine Primo Bermudez Chest pain, unspecified type; Toñito Garza MD Tachycardia; Factor 5 Leiden mutation, heterozygous (HCC); SOB (shortness of breath); Other chronic pulmonary embolism without acute cor pulmonale (HCC) 01/31/2018 - Hospital Encounter General Internal Winston Daniels 02/01/2018 Medicine MD Kin Pritchard Salman Siraj, MD 01/31/2018 Orders Only Yoseph Ortega RN 01/24/2018 Orders Only General Internal Medicine 01/22/2018 - Hospital Encounter General Internal Charissa, Mustaq 01/25/2018 Medicine MD Dominique Cespedes, MD Jeremiah Prieto Bhagwat Purushottam, MD Aly, Wiliam Roth MD 08/30/2017 Hospital Encounter General Internal Wiliam Sanderson Medicine MD Ira after 08/08/2017 Family History Medical History Relation [...] Assigned at Date Recorded Not on file Job Start Date Occupation Industry Not on file Not on file Not on file Travel History Travel Start Travel End No recent travel history available. Last Filed Vital Signs Vital Sign Reading Time Taken Blood Pressure 157/91 05/24/2018 2:17 PM CDT Pulse 104 05/24/2018 2:17 PM CDT Temperature 36.8 C (98.2 F) 05/24/2018 9:52 AM CDT Respiratory Rate 20 05/24/2018 2:17 PM CDT Oxygen Saturation 100% 05/24/2018 2:17 PM CDT Inhaled Oxygen Concentration - - Weight 90.7 kg (200 lb) 05/24/2018 9:52 AM CDT Height 170.2 cm (5' 7") 01/31/2018 9:47 PM CDT Body Mass Index 31.32 05/24/2018 9:52 AM CDT Plan of Treatment Health Maintenance Due Date Last Done Comments INFLUENZA VACCINE 07/11/2018 Procedures Procedure Name Priority Date/Time Associated Comments Diagnosis REPORT OF PROCEDURE - 05/25/2018 4:21 ENDOSCOPY SCAN PM CDT ED ECG INTERPRETATION Routine 05/24/2018 2:50 Results for this PM CDT procedure are in the results section. LACTIC ACID, VENOUS, STAT 05/24/2018 2:18 Results for this WHOLE BLOOD PM CDT procedure are in the results section. URINALYSIS W/ REFLEX STAT 05/24/2018 1:51 Results for this URINE CULTURE PM CDT procedure are in the results section. BLOOD CULTURE STAT 05/24/2018 12:50 Results for this PM CDT procedure are in the results section. CT CHEST PE TEST DESIGN STAT 05/24/2018 12:43 Results for this PM CDT procedure are in the results section. BLOOD CULTURE STAT 05/24/2018 11:52 Results for this AM CDT procedure are in the results section. LACTIC ACID, VENOUS, STAT 05/24/2018 10:27 Results for this WHOLE BLOOD AM CDT procedure are in the results section. XR CHEST 1 VIEW STAT 05/24/2018 10:13 Results for this PORTABLE/BEDSIDE AM CDT procedure are in the results section. (MANUAL DIFFERENTIAL) STAT 05/24/2018 9:55 Results for this AM CDT procedure are in the results section. CBC W/PLT COUNT & AUTO STAT 05/24/2018 9:55 Results for this DIFFERENTIAL AM CDT procedure are in the results section. HEPATIC FUNCTION PANEL STAT 05/24/2018 9:55 Results for this AM CDT procedure are in the results section. CREATINE KINASE (CK), STAT 05/24/2018 9:55 Results for this TOTAL AND MB AM CDT procedure are in the results section. TROPONIN I STAT 05/24/2018 9:55 Results for this AM CDT procedure are in the results section. B-TYPE NATRIURETIC FACTOR STAT 05/24/2018 9:55 Results for this (BNP) AM CDT procedure are in the results section. PT/APTT STAT 05/24/2018 9:55 Results for this AM CDT procedure are in the results section. BASIC METABOLIC PANEL (7) STAT 05/24/2018 9:55 Results for this AM CDT procedure are in the results section. CBC W/PLT COUNT & AUTO STAT 05/24/2018 9:55 Results for this DIFFERENTIAL AM CDT procedure are in the results section. REPORT OF PROCEDURE - 04/27/2018 12:51 ENDOSCOPY SCAN PM CDT RHYTHM STRIP - SCAN 04/27/2018 12:51 PM CDT (MANUAL DIFFERENTIAL) Routine 04/26/2018 5:08 Results for this AM CDT procedure are in the results section. CBC W/PLT COUNT & AUTO Routine 04/26/2018 5:08 Results for this DIFFERENTIAL AM CDT procedure are in the results section. PROTHROMBIN TIME/INR Routine 04/26/2018 5:08 Results for this AM CDT procedure are in the results section. CBC W/PLT COUNT & AUTO Routine 04/26/2018 5:08 Results for this DIFFERENTIAL AM CDT procedure are in the results section. APTT Routine 04/26/2018 12:43 Results for this AM CDT procedure are in the results section. APTT Routine 04/25/2018 3:22 Results for this PM CDT procedure are in the results section. APTT Routine 04/25/2018 5:08 Results for this AM CDT procedure are in the results section. PROTHROMBIN TIME/INR Routine 04/25/2018 5:08 Results for this AM CDT procedure are in the results section. APTT Routine 04/24/2018 6:54 Results for this PM CDT procedure are in the results section. APTT Routine 04/24/2018 10:19 Results for this AM CDT procedure are in the results section. (MANUAL DIFFERENTIAL) Routine 04/24/2018 4:45 Results for this AM CDT procedure are in the results section. CBC W/PLT COUNT & AUTO Routine 04/24/2018 4:45 Results for this DIFFERENTIAL AM CDT procedure are in the results section. PROTHROMBIN TIME/INR Routine 04/24/2018 4:45 Results for this AM CDT procedure are in the results section. CBC W/PLT COUNT & AUTO Routine 04/24/2018 4:45 Results for this DIFFERENTIAL AM CDT procedure are in the results section. APTT Routine 04/24/2018 12:40 Results for this AM CDT procedure are in the results section. APTT Routine 04/23/2018 3:17 Results for this PM CDT procedure are in the results section. APTT Routine 04/23/2018 5:39 Results for this AM CDT procedure are in the results section. PROTHROMBIN TIME/INR Routine 04/23/2018 5:39 Results for this AM CDT procedure are in the results section. APTT Routine 04/22/2018 7:21 Results for this PM CDT procedure are in the results section. (MANUAL DIFFERENTIAL) Routine 04/22/2018 9:38 Results for this AM CDT procedure are in the results section. CBC W/PLT COUNT & AUTO Routine 04/22/2018 9:38 Results for this DIFFERENTIAL AM CDT procedure are in the results section. CBC W/PLT COUNT & AUTO Routine 04/22/2018 9:38 Results for this DIFFERENTIAL AM CDT procedure are in the results section. APTT Routine 04/22/2018 9:20 Results for this AM CDT procedure are in the results section. PROTHROMBIN TIME/INR Routine 04/22/2018 9:20 Results for this AM CDT procedure are in the results section. APTT Routine 04/22/2018 12:11 Results for this AM CDT procedure are in the results section. TRANSFUSION SERVICE 04/21/2018 6:05 REPORT - SCAN PM CDT APTT Routine 04/21/2018 5:12 Results for this PM CDT procedure are in the results section. (MANUAL DIFFERENTIAL) Routine 04/21/2018 7:28 Results for this AM CDT procedure are in the results section. CBC W/PLT COUNT & AUTO Routine 04/21/2018 7:28 Results for this DIFFERENTIAL AM CDT procedure are in the results section. APTT Routine 04/21/2018 7:28 Results for this AM CDT procedure are in the results section. PROTHROMBIN TIME/INR Routine 04/21/2018 7:28 Results for this AM CDT procedure are in the results section. CBC W/PLT COUNT & AUTO Routine 04/21/2018 7:28 Results for this DIFFERENTIAL AM CDT procedure are in the results section. BASIC METABOLIC PANEL (7) Routine 04/21/2018 7:28 Results for this AM CDT procedure are in the results section. PREPARE LEUKO-REDUCED RBC Routine 04/20/2018 11:54 Results for this PM CDT procedure are in the results section. CBC (HEMOGRAM ONLY) STAT 04/20/2018 9:16 Results for this PM CDT procedure are in the results section. APTT Routine 04/20/2018 9:16 Results for this PM CDT procedure are in the results section. TRANSFUSION SERVICE 04/20/2018 6:06 REPORT - SCAN PM CDT APTT Routine 04/20/2018 12:13 Results for this PM CDT procedure are in the results section. (MANUAL DIFFERENTIAL) Routine 04/20/2018 7:53 Results for this AM CDT procedure are in the results section. CBC W/PLT COUNT & AUTO Routine 04/20/2018 7:53 Results for this DIFFERENTIAL AM CDT procedure are in the results section. D-DIMER Routine 04/20/2018 7:53 Results for this AM CDT procedure are in the results section. PROTHROMBIN TIME/INR Routine 04/20/2018 7:53 Results for this AM CDT procedure are in the results section. CBC W/PLT COUNT & AUTO Routine 04/20/2018 7:53 Results for this DIFFERENTIAL AM CDT procedure are in the results section. BASIC METABOLIC PANEL (7) Routine 04/20/2018 7:53 Results for this AM CDT procedure are in the results section. APTT Timed 04/20/2018 2:08 Results for this AM CDT procedure are in the results section. TRANSFUSION SERVICE 04/19/2018 6:04 REPORT - SCAN PM CDT APTT RANDY 04/19/2018 5:27 Results for this PM CDT procedure are in the results section. ANTIBODY IDENTIFICATION Routine 04/19/2018 5:19 Results for this PM CDT procedure are in the results section. (MANUAL DIFFERENTIAL) Routine 04/19/2018 8:59 Results for this AM CDT procedure are in the results section. CBC W/PLT COUNT & AUTO Routine 04/19/2018 8:59 Results for this DIFFERENTIAL AM CDT procedure are in the results section. CBC W/PLT COUNT & AUTO Routine 04/19/2018 8:59 Results for this DIFFERENTIAL AM CDT procedure are in the results section. BASIC METABOLIC PANEL (7) Routine 04/19/2018 8:59 Results for this AM CDT procedure are in the results section. TROPONIN I STAT 04/19/2018 8:59 Results for this AM CDT procedure are in the results section. TRANSFUSE LEUKO-REDUCED Routine 04/19/2018 5:21 RED BLOOD CELLS AM CDT PT/APTT Routine 04/19/2018 1:27 Results for this AM CDT procedure are in the results section. TROPONIN I STAT 04/18/2018 7:18 Results for this PM CDT procedure are in the results section. PERIPHERAL VASCULAR 04/18/2018 1:00 REPORT - SCAN PM CDT PT/APTT STAT 04/18/2018 12:39 Results for this PM CDT procedure are in the results section. VENOUS DOPPLER LEGS Routine 04/18/2018 11:50 Results for this BILATERAL AM CDT procedure are in the results section. TYPE AND SCREEN Routine 04/18/2018 10:51 Results for this AM CDT procedure are in the results section. PROTHROMBIN GENE MUTATION Routine 04/18/2018 10:51 Results for this AM CDT procedure are in the results section. PROTEIN S ANTIGEN, TOTAL Routine 04/18/2018 10:51 Results for this AM CDT procedure are in the results section. PROTEIN C ANTIGEN, TOTAL Routine 04/18/2018 10:51 Results for this AM CDT procedure are in the results section. PHOSPHATIDYLSERINE ABS Routine 04/18/2018 10:51 Results for this (IGG, IGM) AM CDT procedure are in the results section. MTHF REDUCTASE MUTATION Routine 04/18/2018 10:51 Results for this AM CDT procedure are in the results section. HOMOCYSTEINE Routine 04/18/2018 10:51 Results for this AM CDT procedure are in the results section. FACTOR 5 LEIDEN PCR Routine 04/18/2018 10:51 Results for this (THROMBOTIC RISK) AM CDT procedure are in the results section. CARDIOLIPIN ANTIBODIES, Routine 04/18/2018 10:51 Results for this IGG AND IGM AM CDT procedure are in the results section. ANTITHROMBIN III Routine 04/18/2018 10:51 Results for this AM CDT procedure are in the results section. RETICULOCYTE COUNT Routine 04/18/2018 10:51 Results for this AM CDT procedure are in the results section. VITAMIN B12 AND FOLATE Routine 04/18/2018 10:51 Results for this AM CDT procedure are in the results section. PROTEIN ELECTROPHORESIS, AP Routine 04/18/2018 10:51 Results for this SERUM AM CDT procedure are in the results section. LACTATE DEHYDROGENASE Routine 04/18/2018 10:51 Results for this (LDH) AM CDT procedure are in the results section. IRON, TIBC, % SAT. Routine 04/18/2018 10:51 Results for this (WITHOUT FERRITIN) AM CDT procedure are in the results section. FERRITIN Routine 04/18/2018 10:51 Results for this AM CDT procedure are in the results section. ED ECG INTERPRETATION Routine 04/18/2018 8:25 Results for this AM CDT procedure are in the results section. TROPONIN I STAT 04/18/2018 5:14 Results for this AM CDT procedure are in the results section. BASIC METABOLIC PANEL (7) STAT 04/18/2018 5:14 Results for this AM CDT procedure are in the results section. APTT STAT 04/18/2018 12:08 Results for this AM CDT procedure are in the results section. CBC (HEMOGRAM ONLY) STAT 04/18/2018 12:08 Results for this AM CDT procedure are in the results section. CT CHEST PE TEST DESIGN STAT 04/17/2018 10:21 Results for this PM CDT procedure are in the results section. CREATINE KINASE (CK), STAT 04/17/2018 10:01 Results for this TOTAL AND MB PM CDT procedure are in the results section. CBC W/PLT COUNT & AUTO STAT 04/17/2018 9:06 Results for this DIFFERENTIAL PM CDT procedure are in the results section. TSH/FREE T4 IF INDICATED STAT 04/17/2018 9:06 Results for this PM CDT procedure are in the results section. BASIC METABOLIC PANEL (7) STAT 04/17/2018 9:06 Results for this PM CDT procedure are in the results section. PROTHROMBIN TIME/INR STAT 04/17/2018 9:06 Results for this PM CDT procedure are in the results section. B-TYPE NATRIURETIC FACTOR STAT 04/17/2018 9:06 Results for this (BNP) PM CDT procedure are in the results section. CBC W/PLT COUNT & AUTO STAT 04/17/2018 9:06 Results for this DIFFERENTIAL PM CDT procedure are in the results section. TROPONIN I STAT 04/17/2018 9:06 Results for this PM CDT procedure are in the results section. REPORT OF PROCEDURE - 02/02/2018 3:01 ENDOSCOPY SCAN PM CDT RHYTHM STRIP - SCAN 02/02/2018 3:01 PM CDT REPORT OF PROCEDURE - 02/02/2018 3:01 ENDOSCOPY SCAN PM CDT (MANUAL DIFFERENTIAL) Routine 02/01/2018 6:15 Results for this AM CDT procedure are in the results section. CBC W/PLT COUNT & AUTO Routine 02/01/2018 6:15 Results for this DIFFERENTIAL AM CDT procedure are in the results section. TROPONIN I Routine 02/01/2018 6:15 Results for this AM CDT procedure are in the results section. MAGNESIUM Routine 02/01/2018 6:15 Results for this AM CDT procedure are in the results section. BASIC METABOLIC PANEL (7) Routine 02/01/2018 6:15 Results for this AM CDT procedure are in the results section. CBC W/PLT COUNT & AUTO Routine 02/01/2018 6:15 Results for this DIFFERENTIAL AM CDT procedure are in the results section. LIPID PANEL Routine 01/31/2018 11:33 Results for this PM CDT procedure are in the results section. B-TYPE NATRIURETIC FACTOR Routine 01/31/2018 11:33 Results for this (BNP) PM CDT procedure are in the results section. TROPONIN I Routine 01/31/2018 11:33 Results for this PM CDT procedure are in the results section. REPORT OF PROCEDURE - 01/26/2018 1:52 ENDOSCOPY SCAN PM CDT RHYTHM STRIP - SCAN 01/26/2018 1:[address] CHEST PE TEST DESIGN RANDY 01/24/2018 7:46 Results for this PM CDT procedure are in the results section. BASIC METABOLIC PANEL (7) Routine 01/24/2018 5:19 Results for this PM CDT procedure are in the results section. ECG 12-LEAD Routine 01/24/2018 1:57 PM CDT Procedure Note - Interface, External Ris In - 01/24/2018 2:58 PM CDT Ventricular Rate 83 BPM Atrial Rate 83 BPM P-R Interval 166 ms QRS Duration 90 ms Q-T Interval 366 ms QTC Calculation(Bazett) 430 ms P [place] 44 degrees R [place] 29 degrees T [place] 12 degrees Sinus rhythm with occasional Premature ventricular complexes Otherwise normal ECG TROPONIN I Routine 01/22/2018 1:16 PM CDT CREATINE KINASE (CK), Routine 01/22/2018 1:16 PM CDT Results for this TOTAL AND MB procedure are in the results section. REPORT OF PROCEDURE - 08/31/2017 1:20 PM MERCURY CELL CLEANER ENDOSCOPY SCAN after 08/08/2017 Results EKG-SCANNED (05/25/2018 4:21 PM CDT)Only the most recent of6 resultswithin the time period is included. Narrative Performed At ED ECG Interpretation (05/24/2018 2:50 PM CDT)Only the most recent of2 resultswithin the time period is included. Narrative Performed At Ros Wade MD 05/24/20182:50 PM ECG/EKG Interpretation Date/Time: 05/24/2018 9:57 AM Performed by: ROS WADE Authorized by: ROS WADE The ECG was interpreted by ED physician. This ECG was compared with previous ECG(s).The ECG is interpreted as sinus tachycardia. Rate is tachycardic. Heart rate is 113 BPM. Conduction: conduction normal. ST segments normal. T waves abnormal. T-wave flattening in lead(s) III. Other findings include: LAE. Right sided lead use: right-sided leads not used. Left sided lead use: Posterior leads were not used. Clinical Impression: abnormal ECGECG reviewed and does not meet STEMI criteria. Lactic acid, venous, whole blood (05/24/2018 2:18 PM CDT)Only the most recent of2 resultswithin the time period is included. Lactate, Venous 1.3 0.5 - 2.2 mmol/L [facility] Specimen Blood Narrative Performed At [facility] Effective 02/12/2016: Units/Reference Range Change New: 0.5-2.2 mmol/LPrevious: 5-18 mg/dL Performing Organization Address City/State/Zipcode Phone Number [facility] [address] [place] [address] [phone] Urinalysis w/Microscopic + Reflex to Culture (05/24/2018 1:51 PM CDT) Color, UA Yellow [facility] Clarity, UA Clear [facility] Specific [place], UA 1.010 1.001 - 1.035 [facility] pH, UA 7.0 5.0 - 8.0 [facility] Protein, UA Negative Negative [facility] Glucose, UA Negative Negative [facility] Ketones, UA Negative Negative [facility] Bilirubin, UA Negative Negative [facility] Blood, UA Negative Negative [facility] Nitrite, UA Negative Negative [facility] Leukocytes, UA Negative Negative [facility] Urobilinogen, UA 0.2 0.2 - 1.0 mg/dL [facility] Bacteria, UA None Seen [facility] RBC, UA None Seen /HPF [facility] WBC, UA <5 /HPF [facility] SQUAMOUS EPITHELIAL None Seen /HPF [facility] Specimen Source [facility] Specimen Urine - Urine, Clean Catch Performing Organization Address City/[facility]/Zipcode Phone Number [facility] [address] [place], [place] [phone] Blood culture (05/24/2018 12:50 PM CDT)Only the most recent of2 resultswithin the time period is included. Result No growth in 5 days [facility] Specimen Blood - Line, Venous Performing Organization Address [facility] Phone Number [facility] [address] [place], [place] [phone] CT chest PE test design (05/24/2018 12:43 PM CDT)Only the most recent of3 resultswithin the time period is included. Narrative Performed At FINAL REPORT [facility] TECHNIQUE: CT scan of the chest WITH intravenous contrast. Dose modulation, iterative reconstruction, and/or weight-based adjustment of the mA/kV was utilized to reduce the radiation dose to as low as reasonably achievable. INDICATION: 48-year-old man with chest pain and history of pulmonary emboli. COMPARISON: Multiple chest CTs dating back to 05/18/2011, the most recent is dated 04/17/2018. FINDINGS: LINES/TUBES: Unchanged right internal jugular chest port. PULMONARY ARTERIES: Proximal to the bifurcation of the main pulmonary artery, the main pulmonary artery is 2.7 cm in diameter. Filling defect in a lower lobe segmental branch of the left pulmonary artery, not clearly seen on prior exam (axial postcontrast arterial series image 118). No significant change in filling defects in lower lobe segmental branches of the right pulmonary artery. LUNGS AND AIRWAYS: The lungs and airways are normal without focal abnormality. PLEURA: The pleural spaces are clear. HEART AND MEDIASTINUM: The visualized thyroid gland is normal. No significant mediastinal, hilar, or axillary lymphadenopathy. The heart and pericardium are within normal limits. SOFT TISSUES AND BONES: Unremarkable. UPPER ABDOMEN: Unchanged cortical calcification in the visualized left kidney. Prior cholecystectomy. IMPRESSION: Suspected new segmental pulmonary embolus on the left. Unchanged segmental pulmonary emboli on the right. Signed: Louis Pacheco MD Report Verified Date/Time:05/24/2018 13:14:23 Reading Location: [address] Radiology Reading Room Procedure Note Interface, External Ris In - 05/24/2018 1:16 PM CDT FINAL REPORT TECHNIQUE: CT scan of the chest WITH intravenous contrast. Dose modulation, iterative reconstruction, and/or weight-based adjustment of the mA/kV was utilized to reduce the radiation dose to as low as reasonably achievable. INDICATION: 48-year-old man with chest pain and history of pulmonary emboli. COMPARISON: Multiple chest CTs dating back to 05/18/2011, the most recent is dated 04/17/2018. FINDINGS: LINES/TUBES: Unchanged right internal jugular chest port. PULMONARY ARTERIES: Proximal to the bifurcation of the main pulmonary artery, the main pulmonary artery is 2.7 cm in diameter. Filling defect in a lower lobe segmental branch of the left pulmonary artery, not clearly seen on prior exam (axial postcontrast arterial series image 118). No significant change in filling defects in lower lobe segmental branches of the right pulmonary artery. LUNGS AND AIRWAYS: The lungs and airways are normal without focal abnormality. PLEURA: The pleural spaces are clear. HEART AND MEDIASTINUM: The visualized thyroid gland is normal. No significant mediastinal, hilar, or axillary lymphadenopathy. The heart and pericardium are within normal limits. SOFT TISSUES AND BONES: Unremarkable. UPPER ABDOMEN: Unchanged cortical calcification in the visualized left kidney. Prior cholecystectomy. IMPRESSION: Suspected new segmental pulmonary embolus on the left. Unchanged segmental pulmonary emboli on the right. Signed: Louis Pacheco MD Report Verified Date/Time: 05/24/2018 13:14:23 Reading Location: [address] Radiology Reading Room Performing Organization Address City/State/Zipcode Phone Number [employer] XR chest 1 view portable / bedside (05/24/2018 10:13 AM CDT) Narrative Performed At FINAL REPORT GE RIS Chest one view INDICATION: Chest pain COMPARISON: 09/27/2016 IMPRESSION: There is no focal consolidation, vascular congestion, pleural effusion, or pneumothorax. Heart size is within normal limits. Mild aortic tortuosity is noted. A right chest Port-A-Cath is in place. The bones appear intact. Signed: June Evangelista MD Report Verified Date/Time:05/24/2018 10:18:17 Reading Location: [facility] Radiology Reading Room Procedure Note Interface, External Ris In - 05/24/2018 10:20 AM CDT FINAL REPORT Chest one view INDICATION: Chest pain COMPARISON: 09/27/2016 IMPRESSION: There is no focal consolidation, vascular congestion, pleural effusion, or pneumothorax. Heart size is within normal limits. Mild aortic tortuosity is noted. A right chest Port-A-Cath is in place. The bones appear intact. Signed: June Evangelista MD Report Verified Date/Time: 05/24/2018 10:18:17 Reading Location: [facility] Radiology Reading Room Performing Organization Address City/[facility] Phone Number GE [facility]IS Manual Differential (05/24/2018 9:55 AM CDT)Only the most recent of8 resultswithin the time period is included. Total Counted [facility] WBC Morphology Normal [facility] Platelet Morphology Normal [facility] Anisocytosis 3+ many [facility] Hypochromia 3+ many [facility] Specimen Blood - Line, Venous Performing Organization Address City/[facility]/Zipcode Phone Number [facility] [address] [place], [place] [phone] PT/aPTT (05/24/2018 9:55 AM CDT)Only the most recent of3 resultswithin the time period is included. Protime 9.9 9.3 - 12.0 sec [facility] INR 0.9 <=5.9 [facility] PTT 39.3 (H) 23.0 - 35.0 sec [facility] Specimen Blood - Line, Venous Narrative Performed At [facility] RECOMMENDED COUMADIN/WARFARIN INR THERAPY RANGES STANDARD DOSE: 2.0 - 3.0 Includes: PROPHYLAXIS for venous thrombosis, systemic embolization; TREATMENT for venous thrombosis and/or pulmonary embolus. HIGH RISK: Target INR is 2.5-3.5 for patients with mechanical heart valves. Final Information (Auto Output) Final Information (Auto Output) Final Information (Auto Output) Performing Organization Address City/State/Zipcode Phone Number [facility] [address] [place], [place] [phone] CBC with platelet count + automated diff (05/24/2018 9:55 AM CDT)Only the most recent of9 resultswithin the time period is included. WBC 9.8 4.0 - 10.0 K/L [facility] RBC 4.15 (L) 4.20 - 5.80 M/L [facility] Hemoglobin 10.7 (L) 13.0 - 16.8 GM/DL [facility] Hematocrit 33.6 (L) 40.0 - 50.0 % [facility] MCV 80.8 (L) 82.0 - 98.0 fL [facility] MCH 25.7 (L) 27.0 - 33.0 pg [facility] MCHC 31.8 (L) 32.0 - 36.0 GM/DL [facility] RDW 28.4 (H) 10.3 - 14.2 % [facility] Platelets 324 150 - 430 K/CU MM [facility] MPV 7.3 6.5 - 10.5 fL [facility] nRBC 0 0 - 0 /100 WBC [facility] % Neutros 75 % [facility] % Lymphs 17 % [facility] % Monos 6 % [facility] % Eos 2 % [facility] % Baso 0 % [facility] # Neutros 7.30 1.80 - 8.00 K/L [facility] # Lymphs 1.70 1.48 - 4.50 K/L [facility] # Monos 0.60 0.00 - 1.30 K/L [facility] # Eos 0.20 0.00 - 0.50 K/L [facility] # Baso 0.00 0.00 - 0.20 K/L [facility] Specimen Blood - Line, Venous Performing Organization Address [facility] Phone Number [facility] [address] [place] [address] [phone] Troponin I (not available at [facility]) (05/24/2018 9:55 AM CDT)Only the most recent of8 resultswithin the time period is included. Troponin I <0.03 0.00 - 0.15 ng/mL [facility] Specimen Blood - Line, Venous Narrative Performed At [facility] Troponin I (TnI) levels must be interpreted [...] acidosis, acute neurological disease, and persistent tachyarrhythmia. Performing Organization Address [facility] Phone Number [address] [address] B-type natriuretic peptide (05/24/2018 9:55 AM CDT)Only the most recent of3 resultswithin the time period is included. BNP 8 0 - 100 pg/mL [facility] Specimen Blood - Line, Venous Performing Organization Address [facility] Phone Number [address] [id number] [phone] Creatine Kinase (CK), Total and MB (not available at [facility]) (2017 9:55 AM CDT)Only the most recent of3 resultswithin the time period is included. Total CK 76 40 - 250 U/L [facility] CK-MB 1.2 0.0 - 4.9 ng/mL [facility] MB Relative Index 1.6 % [facility] Specimen Blood - Line, Venous Narrative Performed At CK-MB Reference Range: [facility] <5 Normal 5-10 Borderline >10Abnormal Performing Organization Address [facility] Phone Number [facility] [address] [place], [place] [phone] Hepatic function panel (05/24/2018 9:55 AM CDT) Protein, Total 7.0 6.0 - 8.5 gm/dL [facility] Albumin 4.3 3.5 - 5.0 g/dL [facility] Total Bilirubin 0.4 0.1 - 1.2 mg/dL [facility] Bilirubin, Direct 0.2 0.0 - 0.4 mg/dL [facility] Alkaline Phosphatase 70 30 - 115 U/L [facility] AST 18 5 - 40 U/L [facility] ALT 13 5 - 50 U/L [facility] Specimen Blood Performing Organization Address City/[facility]/Zipcode Phone Number [facility] [address] [place], [place] [phone] Basic metabolic panel (Na, K+, Cl, CO2, Glu, Ca, BUN, Cr) (05/24/2018 9:55 AM CDT)Only the most recent of8 resultswithin the time period is included. Sodium 138 135 - 148 meq/L [facility] Potassium 3.6 3.6 - 5.5 meq/L [facility] Chloride 106 98 - 106 meq/L [facility] CO2 21 20 - 29 meq/L [facility] BUN 11 10 - 26 mg/dL [facility] Creatinine 0.96 0.50 - 1.20 mg/dL [facility] Glucose 212 (H) 70 - 110 mg/dL [facility] Calcium 9.4 8.5 - 10.5 mg/dL [facility] EGFR 84Comment: ESTIMATED GFR IS NOT mL/min/1.73 sq m [facility] ACCURATE CREATININE CLEARANCE IN PREDICTING GLOMERULAR FILTRATION RATE. ESTIMATED GFR IS NOT APPLICABLE FOR DIALYSIS PATIENTS. Specimen Blood - Line, Venous Performing Organization Address City/State/Zipcode Phone Number [facility] [address] [place], [place] [phone] RHYTHM STRIP - SCAN (04/27/2018 12:51 PM CDT)Only the most recent of3 resultswithin the time period is included. Narrative Performed At Prothrombin time/INR (04/26/2018 5:08 AM CDT)Only the most recent of8 resultswithin the time period is included. Protime 21.9 (H) 9.3 - 12.0 sec [facility] INR 2.1 <=5.9 [facility] Specimen Blood Narrative Performed At [facility] RECOMMENDED COUMADIN/WARFARIN INR THERAPY RANGES STANDARD DOSE: 2.0 - 3.0 Includes: PROPHYLAXIS for venous thrombosis, systemic embolization; TREATMENT for venous thrombosis and/or pulmonary embolus. HIGH RISK: Target INR is 2.5-3.5 for patients with mechanical heart valves. Final Information (Auto Output) Final Information (Auto Output) Performing Organization Address [facility] Phone Number [facility] [address] [place] [address] [phone] aPTT (04/26/2018 12:43 AM CDT)Only the most recent of18 resultswithin the time period is included. PTT >150.0 (HH) 23.0 - 35.0 sec [facility] Specimen Blood Narrative Performed At Final Information (Auto Output) [facility] Performing Organization Address [facility] Number [facility] [address] [place] [address] TRANSFUSION SERVICE REPORT - SCAN (04/21/2018 6:05 PM CDT)Only the most recent of3 resultswithin the time period is included. Narrative Performed At Prepare Leuko-Red RBC (04/20/2018 11:54 PM CDT) Unit ABO A Pos [facility] [place] UNIT NUMBER [id number] [facility] [place] Status TRANSFUSED [facility] [place] Blood Bank Product RED BLOOD CELLS [facility] [place] PRODUCT CODE [id number] [facility] [place] CROSSMATCH COMPATIBLE [facility] [place] Specimen Other Performing Organization Address [facility] Phone Number [facility] [place] CBC (Hemogram only) (04/20/2018 9:16 PM CDT)Only the most recent of2 resultswithin the time period is included. WBC 7.0 4.0 - 10.0 K/L [facility] RBC 3.89 (L) 4.20 - 5.80 M/L [facility] Hemoglobin 8.8 (L) 13.0 - 16.8 GM/DL [facility] Hematocrit 27.6 (L) 40.0 - 50.0 % [facility] MCV 70.8 (L) 82.0 - 98.0 fL [facility] MCH 22.6 (L) 27.0 - 33.0 pg [facility] MCHC 32.0 32.0 - 36.0 GM/DL [facility] RDW 20.0 (H) 10.3 - 14.2 % [facility] Platelets 360 150 - 430 K/CU MM [facility] MPV 7.4 6.5 - 10.5 fL [facility] Specimen Blood Performing Organization Address City/[facility] Phone Number [facility] [address] [place] [address] [phone] D-dimer (04/20/2018 7:53 AM CDT) D-Dimer, Quant 0.93 (H) <0.50 mg/L [facility] Specimen Blood Narrative Performed At [facility] REGARDING D-DIMER RESULTS: The 98% NPV (Negative Predictive Value) for DVT/PE exclusion is 0.50 mg/L FEU as suggested by the engine hostler and as approved by the FDA. Final Information (Auto Output) Performing Organization Address City/[facility] Phone Number [facility] [address] [place], [place] [address] Antibody identification (04/19/2018 5:19 PM CDT) ANTIBODY ID (NIMO) Anti-EComment: Testing performed by: [facility], [address] [place] [address] [place] [address] Antibody Consult SIGNED OUTComment: Anti E causes RBC [facility] [place] injury, transfuse E negative RBCs.Electronic Signature: Ayaz Feliz M.D. Performing Organization Address City/[facility] Phone Number [facility] [place] Transfuse Leuko-Red RBC (04/19/2018 5:21 AM CDT)Only the most recent of2 resultswithin the time period is included.PERIPHERAL VASCULAR REPORT - SCAN (06/2018 1:00 PM CDT) Narrative Performed At Venous doppler legs bilateral (04/18/2018 11:50 AM CDT) Narrative Performed At FINAL REPORT [facility] History: Lower extremity swelling Comparison: None Discussion: Grayscale, color Doppler, spectral wave form analysis of the deep venous system of the bilateral lower extremities was performed. The common femoral, femoral, and popliteal veins are normally compressible and demonstrate normal spontaneous phasic wave forms.The visualized calf veins are patent. Impression: No evidence of deep venous thrombus in the bilateral lower extremities. Signed: Tremayne Tapia MD Report Verified Date/Time:04/18/2018 12:31:58 Reading Location: [facility] Radiology Reading Room Procedure Note Interface, External Ris In - 04/18/2018 12:34 PM CDT FINAL REPORT History: Lower extremity swelling Comparison: None Discussion: Grayscale, color Doppler, spectral wave form analysis of the deep venous system of the bilateral lower extremities was performed. The common femoral, femoral, and popliteal veins are normally compressible and demonstrate normal spontaneous phasic wave forms.The visualized calf veins are patent. Impression: No evidence of deep venous thrombus in the bilateral lower extremities. Signed: Tremayne Tapia MD Report Verified Date/Time: 04/18/2018 12:31:58 Reading Location: [facility] Radiology Reading Room Performing Organization Address City/State/Zipcode Phone Number [facility] Prothrombin Gene Mutation (04/18/2018 10:51 AM CDT) Prothrombin/Factor II Negative for the [id number] [facility] (Prothrombin/Factor II) [facility] mutation. Pathologist: Annmarie Thomas MD [facility] (electronic signature) [facility] Specimen Blood Narrative Performed At [facility] This test is a genotyping assay which evaluates the DNA [place] position [address]71 of the prothrombin (Factor II) gene. A region of the prothrombin (Factor II) gene is amplified by polymerase chain reaction followed by fluorescent monitoring of a specific pair of hybridized probes. Since genetic variation and other factors can affect the accuracy of direct mutation testing, these results should be interpreted in light of clinical and familial data. This test was developed and its performance characteristics determined by the [facility] Pathology Department, Section of Molecular Pathology. It has not been cleared or approved by the U.S. Food and Drug Administration (FDA), since FDA approval is not required for clinical use of the test. Validation was done as required by the Clinical Laboratory Improvement Amendments of 1988. Performing Organization Address City/State/Zipcode Phone Number [address] [phone] CENTER Vitamin B12 and Folate (04/18/2018 10:51 AM CDT) Vitamin B12 497 213 - 816 pg/mL [facility] Folate 6.5 (L) >=7.0 ng/mL [facility] Specimen Blood Performing Organization Address [facility] Phone Number [address] [phone] CENTER Phosphatidylserine Abs (IgG, IgM) (04/18/2018 10:51 AM CDT) [facility].Serine Ab IgG <10 U/mL [facility] Comment: INC[facility]PORATED <10 Negative 10-20Equivocal- Found in small percentage of the healthy population; may be reactive >20 Positive - Risk factor for thrombosis and loss PHOSPHATIDYLSERINE AB (IGM) <25 U/mL [facility] Comment: INC[facility]PORATED Clinical Significance: The Antiphospholipid Antibody Syndrome (APS) is a clinical pathologic correlation that includes a clinical event (e.g. thrombosis, loss, thrombocytopenia) and persistent positive Antiphospholipid Antibodies (IgM or IgG CM >40 MPL/GPL, IgM or IgG anti-B2GP1 antibodies, or a Lupus Anticoagulant). The IgA isotype has been implicated in smaller studies, but have not yet been incorporated into the APS criteria. International consensus guidelines suggest waiting at least 12 weeks before retesting to confirm antibody persistence. Reference J Thromb Haemost 2006: 4; 295. <25 Negative 25-35Equivocal- Found in small percentage of the healthy population; may be reactive >35 Positive - Risk factor for thrombosis and loss For more information on this test, go to: http://education.[employer].Patient Conversation Media/faq/LTZ773 Specimen Blood Narrative Performed At Performing Lab [facility] [address] [place] [address] Rodney Bolivar MD, PhD, BRIANNA Performing Organization Address City/State/Zipcode Phone Number [facility], [place] [address] INCORPORATED [address] [facility] Iron, TIBC, % sat. 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 Laboratory testing supervised and results monitored by Jovany Lemons MD, MHA, DABG, CGS. Reduced methylenetetrahydrofolate reductase (MTHFR) enzyme activity is a genetic risk factor for hyperhomocysteinemia, especially when present with low serum folate levels. Two common variants in the MTHFR gene result in reduced enzyme activity. The "thermolabile" variant C677T [NM 700803.3: c.665C>T (p.A222V)] and V2092D [c. 1286A>C (p.E429A)] occur frequently in the general population. Mild to moderate hyperhomocysteinemia has been identified as a risk factor for coronary artery disease and venous thromboembolism. Hyperhomocysteinemia is multifactorial, involving a combination of genetic, physiologic and environmental factors. Recent studies do not support the previously described association of increased risk for coronary artery disease and venous thromboembolism with mild hyperhomocysteinemia caused by reduced MTHFR activity. Therefore, the utility of MTHFR variant testing is uncertain and is not recommended by The [employer] (ACMG) or the [place] [employer] and Gynecologists (ACOG) in the evaluation of venous thromboembolism or adverse outcome. Modest positive association has also been found between the "thermolabile" variant of the MTHFR gene and many other medical complications, such as recurrent loss, risk of offspring with neural tube defects, neuropsychiatric disease, and chemotherapy toxicity.Increased risk of coronary artery disease, venous thromboembolism and increased plasma homocysteine can be caused by a variety of genetic and non-genetic factors not screened for by this assay. If indicated by personal or family history of thromboembolism, consider additional testing such as plasma homocysteine levels, factor V Leiden and prothrombin gene mutations. The C677T and C8436W variants are detected by amplification of the selected regions of MTHFR gene by polymerase chain reaction (PCR) and fluorescent probes hybridization to the targeted regions, followed by melting curve analysis with a real time PCR system. Although rare, false positive or false negative results may occur. All results should be interpreted in context of clinical findings, relevant history, and other laboratory data. Health care providers, please contact your local [facility] genetic counselor or call [facility] ([phone]) for assistance with interpretation of these results. This test was developed and its analytical performance characteristics have been determined by [facility]. It has not been cleared or approved by FDA. This assay has been validated pursuant to the CLIA regulations and is used for clinical purposes. Specimen Blood Narrative Performed At Performing Lab [employer] [facility] [employer] [address] [address] Rodney Bolivar MD, PhD, BRIANNA Performing Organization Address [facility] Phone Number [place] [address] INCORPORATED [facility] [place] [facility] Protein S antigen, total (04/18/2018 10:51 AM CDT) Protein S, Total Antigen 90 70 - 140 % normal [facility] Specimen Blood Narrative Performed At Performing Lab [employer] [facility] [employer] [address] [address] Rodney Bolivar MD, PhD, BRIANNA Performing Organization Address [facility]/Zipcode Phone Number [place] [address] INCORPORATED [address] [facility] Protein C antigen, total (04/18/2018 10:51 AM CDT) Protein C Antigen 100 70 - 140 % normal [facility] Comment: INCORPORATED Decreased levels of Protein C antigen may be found in congenital deficiency, treatment with oral anticoagulants, liver disease, D.I.C. and post surgery. Specimen Blood Narrative Performed At Performing Lab [facility] [address] [place] [address] Rodney Bolivar MD, PhD, BRIANNA Performing Organization Address [facility] Phone Number [place] [address] INCORPORATED [address] [facility] Cardiolipin Antibodies, IgG and IgM (04/18/2018 10:51 AM CDT) Anticardiolipin IgG <1.6 <20.0 GPL [facility] Anticardiolipin IgM 0.5 <20.0 MPL [facility] Specimen Blood Narrative Performed At Anticardiolipin IgG Result Interpretation: [facility] <20.0 GPL Normal >/=20.0 GPL Positive Anticardiolipin IgM Result Interpretation: <20.0 MPL Normal >/=20.0 MPL Positive Performing Organization Address City/[facility] Phone Number [address] [address] CENTER Factor 5 Leiden PCR (thrombotic risk) (04/18/2018 10:51 AM CDT) Factor V Leiden Negative for the R506Q (Factor [facility] V Leiden) mutation MEDICAL CENTER Pathologist: Annmarie Thomas MD [facility] (electronic signature) [facility] Specimen Blood Narrative Performed At This test is a genotyping assay which [facility] evaluates the DNA sequence corresponding to Codon 506 of the Factor V Gene. A region of the Factor V Gene is amplified by polymerase chain reaction followed by fluorescent monitoring of a specific pair of hybridized probes. Since genetic variation and other factors can affect the accuracy of direct mutation testing, these results should be interpreted in light of clinical and familial data. This test was developed and its performance characteristics determined by the [facility] Pathology Department, Section of Molecular Pathology. It has not been cleared or approved by the U.S. Food and Drug Administration (FDA), since FDA approval is not required for clinical use of the test. Validation was done as required by the Clinical Laboratory Improvement Amendments of 1988. Performing Organization Address City/[facility] Phone Number [address] [address] CENTER Antithrombin III (04/18/2018 10:51 AM CDT) Antithrombin III 81.0 80.0 - 120.0 % [facility] Specimen Blood Performing Organization Address [facility] Phone Number [address] [address] [phone] CENTER Reticulocyte count (04/18/2018 10:51 AM CDT) % Retic 1.5 0.4 - 2.9 % [facility] Specimen Blood Performing Organization Address [facility] Phone Number [facility] [address] [place] [phone] Type and screen (04/18/2018 10:51 AM CDT) Ab Scrn POSITIVE [facility] ABO Grouping AB [facility] Rh Factor POS [facility] Specimen Blood Performing Organization Address [facility] Phone Number [address] [address] [facility] Protein electrophoresis, serum (04/18/2018 10:51 AM CDT) Albumin Fraction 3.5 3.5 - 5.5 g/dL [facility] Alpha 1 Fraction 0.2 0.2 - 0.4 g/dL [facility] Alpha 2 Fraction 0.6 0.5 - 0.9 g/dL [facility] Beta Fraction 1.1 0.6 - 1.1 g/dL [facility] Gamma Globulin Fraction 0.8 0.7 - 1.7 g/dL [facility] Interpretation All fractions present [facility] in expected [facility] distribution. No monoclonal bands detected. Pathologist: Annmarie Thomas MD [facility] (electronic signature) [facility] Protein, Total 6.3 6.0 - 8.3 gm/dL [facility] Specimen Blood Performing Organization Address City/[facility] Phone Number [address] [address] CENTER Lactate dehydrogenase (LDH) (04/18/2018 10:51 AM CDT) LDH 174 107 - 206 U/L [facility] Specimen Blood Performing Organization Address [facility] Phone Number [facility] [address] [place] [phone] Homocysteine (04/18/2018 10:51 AM CDT) Homocysteine 6.1 5.1 - 15.4 umol/L [facility] Specimen Blood Performing Organization Address [facility] Phone Number [address] [address] CENTER Ferritin (04/18/2018 10:51 AM CDT) Ferritin 8 (L) 22 - 322 ng/mL [facility] Specimen Blood Performing Organization Address [facility] Phone Number [facility] [address] [place] [address] [phone] TSH/Free T4 If Indicated (04/17/2018 9:06 PM CDT) TSH 0.71 0.35 - 5.50 uIU/mL [facility] Specimen Blood Performing Organization Address [facility] Phone Number [facility] [address] [place] [address] [phone] Magnesium (02/01/2018 6:15 AM CDT) Magnesium 2.4 1.5 - 3.0 mg/dL [facility] Specimen Blood Performing Organization Address City/State/Zipcode Phone Number [facility] [address] [place] [address] Lipid panel (01/31/2018 11:33 PM CDT) Triglycerides 53 mg/dL [facility] Cholesterol 183 mg/dL [facility] HDL 62 mg/dL [facility] LDL Calculated 110 mg/dL [facility] Specimen Blood Narrative Performed At [facility] Triglyceride Reference Range: Low Risk <150 [id number] High Risk 200-499 Very High Risk>=500 Cholesterol Reference Range: Low Risk <200 [id number] High Risk>240 HDL Cholesterol Reference Range: Low Risk >=60 High Risk <40 LDL Cholesterol Reference Range: Optimal<100 Near [id number] [id number] Very High >=190 Performing Organization Address City/State/Zipcode Phone Number [facility] [address] [place] [address] after 08/08/2017 Insurance Payer Benefit Plan / Subscriber ID Type Phone Address Group BLUE CROSS/BLUE BCBS ADV HMO xxxxxxxxxxxx [phone] [address] [place] [address] (Work) [id number] Advance Directives For more information, please contact:[address] [phone] Code Status Date Activated Date Inactivated Comments Full Code 04/18/2018 2:43 AM 04/26/2018 12:57 PM This code status was determined by: Patient Full Code 09/19/2016 12:04 AM 09/24/2016 2:00 PM This code status was determined by: Patient Full Code 10/15/2015 1:16 AM 10/17/2015 8:54 PM This code status was determined by: Patient Full Code 07/12/2015 7:22 PM 07/13/2015 8:30 PM This code status was determined by: Patient Full Code 04/11/2015 12:44 AM 04/14/2015 6:53 PM This code status was determined by: Patient
--- OUTSIDE RECORDS SUMMARY | 2018-08-09 14:01 | XMS REPORT | Continuity of Care Document ---
:1970 Author Organization [facility] Care Team Providers Name Role Phone Lenny Holly MD Unavailable Insurance Providers Payer name Policy type / Policy ID Covered republican ID Policy Nelson Coverage type [employer] HE[employer] (PPO) CIG[employer] HEALTHCARE (PPO) CIGNA - OPEN ACCESS PLUS - LOCAL PLUS CIGNA - OPEN ACCESS PLUS - LOCAL PLUS C[employer] HEALTHCARE (PPO) CIGNA HEALTHCARE (PPO) CIGNA HEALTHCARE (PPO) CIG[employer] HEALTHCARE (PPO) Encounters Encounter Performer Location Date Lab Report Lenny Holly MD [facility] [place] Jul 20, 2014 Allergies, Adverse Reactions, Alerts Type Substance Reaction Status Drug allergy AMBIEN Active Drug allergy TORSEMIDE Active Problems Problem Effective Dates Problem Status LOW BACK PAIN Jul 19, 2014 Active LUMBAR HNP Jul 19, 2014 Active LUMBAR STENOSIS Jul 19, 2014 Active LUMBAR SPONDYLOSIS W/O MYELOPATHY Jul 19, 2014 Active LUMBAR RADICULOPATHY Jul 19, 2014 Active Procedures Date Description Comments Jul 18, 2014 smoking status never smoker Medications Medication Instructions Start Date Status NORCO 10-325 MG TABS 1 PO Q 4 hrs PRN Jul 18, 2014 Active ZANAFLEX 4 MG CAPS 2 tabs Q 6 hrs PRN Jul 18, 2014 Active LABETALOL HCL 100 MG TABS 1 PO BID Jul 18, 2014 Active Vital Signs Date Description Test Result Jul 18, 2014 weight E&M - 3141-9 WEIGHT 176 lb Jul 18, 2014 height E&M - 8302-2 HEIGHT 67 in Jul 18, 2014 temperature E&M TEMPERATURE 100.3 deg f Jul 18, 2014 pulse rate E&M - 8867-4 PULSE RATE 108 /min Jul 18, 2014 blood pressure, systolic - 8480-6 BP SYSTOLIC 145 mm Hg Jul 18, 2014 blood pressure, diastolic - 8462-4 BP DIASTOLIC 105 mm Hg
--- OUTSIDE RECORDS SUMMARY | 2018-08-09 14:01 | XMS REPORT | Continuity of Care Document ---
:1970 Author Organization [facility] Care Team Providers Name Role Phone Lenny Holly MD Unavailable Insurance Providers Payer name Policy type / Policy ID Covered green party ID Policy Nelson Coverage type [employer] HE[employer]CARE (PPO) CIGNA HEALTHCARE (PPO) CIGNA - OPEN ACCESS PLUS - LOCAL PLUS CIGNA - OPEN ACCESS PLUS - LOCAL PLUS [employer] HEALTHCARE (PPO) C[employer]NA HEALTHCARE (PPO) C[employer]NA HEALTHCARE (PPO) CIG[employer] HEALTHCARE (PPO) Encounters Encounter Performer Location Date Lab Report Lenny Holly MD [facility] [place] Jul 20, 2014 Allergies, Adverse Reactions, Alerts [...]
--- OUTSIDE RECORDS SUMMARY | 2018-08-09 14:01 | XMS REPORT | Continuity of Care Document ---
:1970 Author Organization Interface Problems Problem Status Onset Classification Date Comments Source Date Reported CHEST PAIN Active [facility] 018 [place] Discharge 10/14/2016 Diagnosis: 017 [place] Recurrent chest pain SOB Active 017 [place] LOW BACK PAIN Active Condition 07/20/2014 [facility]14 [facility] LUMBAR HNP Active Condition 07/20/2014 [facility] LUMBAR STENOSIS Active Condition 07/20/2014 [facility] LUMBAR SPONDYLOSIS Active Condition 07/20/2014 [facility] W/O MYELOPATHY 014 Neuro LUMBAR Active Condition 07/20/2014 [facility] RADICULOPATHY 014 Neuro Low back Active Problem 10/14/2017 Data [facility] pain<sup>1</sup> 014 migrated Medical from [facility], on 06/04/15. [facility] [place] Lumbar Active Problem 10/14/2017 Data [facility] radiculopathy<sup>2 014 migrated Medical </sup> from [facility], on 06/04/15. [facility] [place] Spinal stenosis of Active Problem 10/14/2017 Data [facility] lumbar 014 migrated Medical region<sup>3</sup> from [facility], on 06/04/15. [facility] [place] Chest pain Active Problem 10/14/[address], [place],M [facility] Pain / sensation Active Problem 10/14/2017 [facility] finding(<span 010 Medical ID="[id number]">[facility] ble</span>) [place] [facility] Anxiety Active Problem 10/14/[address],[facility],M [facility] Hypertension Active Problem 10/14/[address],[facility] [place] Sinus tachycardia Active Problem 10/14/[address],[facility] [place] Back pain Active Problem 10/14/2017 [facility] [place] Depression Resolved Problem 10/14/2017 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 Hyperlipidemia Active Problem 10/14/2017 [facility] [place] Pain Active Problem 10/14/2017 [facility] Pericarditis Resolved Problem 10/14/2017 [facility] Pulmonary embolism Resolved Problem 10/14/2017 [facility] SVT - Resolved Problem 10/14/2017 [facility] Supraventricular Medical tachycardia Center,[facility] CHEST PAIN, Active [facility] UNSPECIFIED [facility] Medications Medication Details Route Status Patient Ordering Order Source Instructions Provider Date Docusate 100 mg, 1 Inactive cap, Route: 018 [place] PO, Drug form: CAP, BID, Dosing Weight 81.818, kg, Start date: 10/11/17 17:00:00 ROTARY FURNACE OPERATOR, Duration: 30 day, Stop date: 11/10/17 9:00:00 CSTNotes: (Same as: Colace) (Do Not Crush) Ondansetron 4 mg, 2 mL, Inactive Route: IVP, 018 [place] Drug form: INJ, Q6H, Dosing Weight 81.818, kg, PRN Nausea & Vomiting, Start date: 10/11/17 15:19:00 ROTARY FURNACE OPERATOR, Duration: 30 day, Stop date: 11/10/17 15:18:00 CSTNotes: (Same as: Zofran) MEDICATION WASTE Product Size: 4 mg Product Wasted: ___ mg enoxaparin 80 80 mg, Active [place] mg/0.8 mL SUB-Q, Q12H, [facility] Medical subcutaneous 0 Refill(s) Center solution simvastatin 20 20 mg=1 tab, Active [facility] mg oral tablet PO, Bedtime, [facility] Medical # 30 tab, 1 Center Refill(s) clopidogrel 75 75 mg=1 tab, Active [facility] MG Oral Tablet PO, Daily, # 017 Medical [Plavix] 30 tab, 0 Center Refill(s) Acetaminophen 1 tab, PO, Active [place] 325 MG / Q4H, PRN for [facility] Medical Hydrocodone pain, # 24 Center Bitartrate 10 tab, 0 MG Oral Tablet Refill(s) [[place] 10/325] heparin 500 mL, Inactive [facility] additive 25,000 Rate: 26.[address] [facility] Medical unit [18 ml/hr, Center unit/kg/hr] + Infuse over: Premix Diluent 19.2 hr, Dextrose 5% 500 Route: IVPB, mL Dosing Weight 72.39 kg, Total Volume: 500 mL, Start date: 11/20/16 5:23:00 ROTARY FURNACE OPERATOR, Duration: 30 day, Stop date: 12/20/16 5:22:00 CDT Heparin 40 Pharmacy To Inactive [facility] unit/kg [facility] Manage, [facility] Medical (Heparin Dosing Route: IVP, Center Weight) PRN, Drug form: INJ, PRN, Heparin Protocol, Start date: 11/20/16 5:23:00 ROTARY FURNACE OPERATOR Stop date: 12/20/16 6:22:00 CDT, 30 day Heparin 80 Pharmacy To Inactive [facility] unit/kg [facility] Man[facility], [facility] Medical (Heparin Dosing Route: IVP, Center Weight) PRN, Drug form: INJ, PRN, Heparin Protocol, Start date: 11/20/16 5:23:00 ROTARY FURNACE OPERATOR Stop date: 12/20/16 6:22:00 CDT, 30 day Dilaudid 1 mg, 0.5 Inactive [facility] mL, Route: [facility] Medical IVP, Drug Center form: INJ, ONCE, Dosing Weight 81.818, kg, Priority: STAT, Start date: 11/20/16 5:05:00 ROTARY FURNACE OPERATOR, Stop date: 11/20/16 5:05:00 CSTNotes: Same as: Dilaudid NORCO 10-325 MG 1 PO Q 4 hrs Active [facility] TABS PRN 014 [facility] ZANAFLEX 4 MG 2 tabs Q 6 Active [facility] CAPS hrs PRN 014 Neuro LABETALOL HCL 1 PO BID Active [facility] 100 MG TABS 014 Neuro Allergies, Adverse Reactions, Alerts Substance Category Reaction Severity Reaction Status Date Comments Source type Reported AMBIEN Drug AMBIEN [facility] allergy 4 Neuro TORSEMIDE Drug TORSEMIDE [facility] allergy 4 Neuro morphine Assertion Rash Drug Active allergy [place] Toradol Assertion rash Drug Active allergy [place] Ambien Assertion Sleep Propensity Active walking to adverse [place] reactions to drug Immunizations Immunization Date Given Site Status Last Comments Source Updated influenza virus 05/12/2014 completed Man Admin Note: [facility] vaccine, received at [facility]<sup>1 [facility], </sup> [facility] tuberculin 02/21/2010 Left Arm completed Belinda [facility] purified protein Medical derivative Center,[facility] Results Order Name Results Value Reference Date Interpretation Comments Source Range CARDIAC Troponin-T null 0.000 - 11/20 [facility] ENZYMES 0.100 /2016 [facility] CARDIAC Total CK 81 unit/L 12 - 191 11/20 [facility] ENZYMES /[address] [place] [address] CARDIAC Troponin-I null 0.00 - 11/20 [facility] ENZYMES 0.40 /[address] [place] [address] CARDIAC CK MB Index 0.7 0.0 - 2.5 11/20 [facility] ENZYMES /[address] [place] [address] CARDIAC CK MB 0.6 ng/mL 0.5 - 3.6 11/20 [facility] ENZYMES /[address] [place] [address] CHEM PANEL Magnesium 1.8 mg/dL 1.8 - 2.4 11/20 [facility] Lvl /[address] [place] [address] CHEM PANEL Phosphorus 2.5 mg/dL 2.5 - 4.5 11/20 [place] /[address] [place] [address] ELECTROLYT AGAP 10.3 meq/L 10.0 - 11/20 [facility] ES 20.0 /2016 [facility] ELECTROLYT B/C Ratio 13 6 - 25 11/20 [facility] ES /[address] [place] [address] ELECTROLYT A/G Ratio 1.2 0.7 - 1.6 11/20 [facility] ES /2016 [facility] ELECTROLYT Globulin 3.3 g/dL 2.7 - 4.2 11/20 [facility] [address] [place] [address] ELECTROLYT eGFR 105 11/20 Result Comment: The eGFR is calculated using the CKD-EPI formula. In most young, healthy individuals the eGFR will be >90 mL/ min/1.73m2. The eGFR declines with age. An eGFR of 60-89 may be normal in [facility] mL/min/1.7 /2016 some populations, particularly the elderly, for whom the CKD-EPI formula has not been extensively validated. Use of the eGFR is not recommended in the following populations: [address] Individuals with unstable creatinine concentrations, including patients and those with serious co-morbid conditions. Patients with extremes in muscle mass or diet. The data above are obtained from the National Kidney Disease Education Program (NKDEP) which additionally recommends that when the eGFR is used in patients with extremes of body mass index for purposes of drug dosing, the eGFR should be multiplied by the estimated BMI. ELECTROLYT Calcium Lvl 8.4 mg/dL 8.5 - 10.5 11/20 [facility] [address] [place] [address] ELECTROLYT Chloride Lvl 107 meq/L 95 - 109 11/[address] ELECTROLYT BUN 11 mg/dL 7 - 22 11/[address] ELECTROLYT Glucose Lvl 100 mg/dL 70 - 99 11/[address] ELECTROLYT Potassium 3.3 meq/L 3.5 - 5.1 11/20 [facility] ELECTROLYT Sodium Lvl 140 meq/L 135 - 145 11/[address] ELECTROLYT Creatinine 0.86 mg/dL 0.50 - 11/20 [facility] Lvl 1.40 [facility] ELECTROLYT CO2 26 meq/L 24 - 32 11/[address] ELECTROLYT AST 27 unit/L 0 - 37 11/[address] ELECTROLYT ALT 22 unit/L 0 - 65 11/[address] ELECTROLYT Albumin Lvl 4.0 g/dL 3.5 - 5.0 11/[address] ELECTROLYT Bili Total 0.5 mg/dL 0.2 - 1.3 11/[address] ELECTROLYT Total 7.3 g/dL 6.4 - 8.4 11/20 [facility] ELECTROLYT Alk Phos 78 unit/L 39 - 136 11/20 [facility] ES [facility] HEMATOLOGY Anti-Xa 0.67 11/20 [facility] Unfractionat [iU]/mL /2016 [facility] ed Heparin [facility] HEMATOLOGY Monocytes # 0.6 K/CMM 0.0 - 0.8 11/20 [facility] HEMATOLOGY Lymphocytes 1.6 K/CMM 1.0 - 5.5 11/20 [place] # /2016 [facility] HEMATOLOGY Segs-Bands # 3.1 K/CMM 1.5 - 8.1 11/20 [facility] HEMATOLOGY Basophils 1.6 % 0.0 - 1.0 11/20 [facility] HEMATOLOGY Eosinophils 0.1 % 0.0 - 4.0 11/20 [facility] HEMATOLOGY Basophils # 0.1 K/CMM 0.0 - 0.2 11/20 [facility] HEMATOLOGY Microcyte 1+ None Seen 11/20 Medical *ABN* Center (11/20/16 5:39 AM) HEMATOLOGY Lymphocytes 29.5 % 20.0 - 11/20 [place] 40.0 [facility] HEMATOLOGY Monocytes 10.6 % 2.0 - 12.0 11/20 [facility] HEMATOLOGY Segs 58.2 % 45.0 - 11/20 75.0 [facility] HEMATOLOGY INR 1.11 0.85 - 11/20 1.17 [facility] HEMATOLOGY PT 14.5 s 12.0 - 11/20 14.7 [facility] HEMATOLOGY PTT 32.9 s 22.9 - 11/20 [place] 35.8 [facility] HEMATOLOGY MCV 76.5 fL 80.0 - 11/20 [place] 94.0 [facility] HEMATOLOGY Hct 29.2 % 42.0 - 02 [place] 54.0 [facility] HEMATOLOGY MCH 24.1 pg 27.0 - 11/20 31.0 [facility] HEMATOLOGY Platelet 316 K/CMM 133 - 450 11/[address] [place] [address] HEMATOLOGY MCHC 31.5 g/dL 32.0 - 02 [place] 36.0 [facility] HEMATOLOGY RDW 20.7 % 11.5 - 11/20 [place] 14.5 [facility] HEMATOLOGY WBC 5.3 K/CMM 3.7 - 10.4 11/20 [facility]2016 [facility] HEMATOLOGY Hgb 9.2 g/dL 14.0 - 11/20 [facility] 18.0 [facility] HEMATOLOGY RBC 3.82 M/CMM 4.70 - 11/20 [facility] 6. [facility] HEMATOLOGY MPV 6.8 fL 7.4 - 10.4 11/[address] Chest Chest Clinical Indication: Chest pain; elevated d-dimer. 10/11 - Pulmonary Pulmonary - [place] Embolism Embolism CTA Comparison: None CTA Read by: Aleks Walker MD Dictated Date/time: 10/11/16 17:31 TECHNIQUE: Sequential trans-axial images were obtained through the chest and upper abdomen after administration of iodinated contrast. 3D, MIP, coronal, oblique and sagittal reconstructions were obtaine Electronically Signed by: Aleks Walker MD 10/11/16 17:39 d. 100 cc of nonionic contrast material was used for the exam. FINAL REPORT Dose: HIA=444.4 mGy-cm FINDINGS: VASCULAR STRUCTURES: No pulmonary thromboemboli are identified to the segmental level. Peripheral pulmonary arteries are not well visualized. The main , right and left pulmonary arteries are normal. The great vessels are unremarkable. The thoracic aorta is free of aneurysm or dissection. The superior vena cava is unremarkable. Right IJ Port-A-Cath terminates in the right atrium. A right-sided PICC line is present terminating in the SVC. LUNG PARENCHYMA AND PLEURA: There are no dominant lung nodules. There is no significant interstitial lung disease. There are no pleural effusions. There is no pneumothorax. AIRWAY: The central airway is normal. MEDIASTINUM: No lymphadenopathy by CT size criteria . HEART: There is no evidence of RV strain. The cardiac chambers are otherwise unremarkable. There is no pericardial effusion. OSSEOUS STRUCTURES: There are no acute osseous abnormalities seen. VISUALIZED UPPER ABDOMEN: The visualized upper abdomen is within normal limits. Status post cholecystectomy. Coarse cortical calcification in the superior pole of the left kidney. IMPRESSION: 1. No evidence of pulmonary emboli. 2. Chest CT with contrast within normal limits. SL: TAZ Vital Signs Vital Sign Value Date Comments Source Temperature Oral (F) 98.1 F 11/20/2016 [facility] Systolic (mm Hg) 142 11/20/2016 [facility] Diastolic (mm Hg) 99 11/20/2016 [facility] Respitory Rate 19 11/20/2016 [facility] Temperature Oral (F) 97.9 F 11/20/2016 [facility] Respitory Rate 18 11/20/2016 [facility] Systolic (mm Hg) 152 11/20/2016 [facility] Diastolic (mm Hg) 88 11/20/2016 [facility] Weight 81.818 11/20/2016 [facility] BMI Calculated 28.25 11/20/2016 [facility] Height 170.18 cm 11/20/2016 [facility] Respitory Rate 18 10/12/2016 [facility] Systolic (mm Hg) 132 10/12/2016 [facility] Diastolic (mm Hg) 67 10/12/2016 [facility] Systolic (mm Hg) 139 10/11/2016 [facility] Diastolic (mm Hg) 65 10/11/2016 [facility] Respitory Rate 18 10/11/2016 [facility] BMI Calculated 28.25 10/11/2016 [facility] Weight 81.818 10/11/2016 [facility] Height 170.18 cm 10/11/2016 [facility] Temperature Oral (F) 98.2 F 10/11/2016 [facility] Heart Rate 96 10/11/2016 [facility] Respitory Rate 18 10/11/2016 [facility] Systolic (mm Hg) 128 10/11/2016 [facility] Diastolic (mm Hg) 93 10/11/2016 [facility] Weight 176 07/18/2014 [facility] Neuro Height 67 07/18/2014 [facility] Neuro Temperature Oral (F) 100.3 F 07/18/2014 [facility] Neuro Heart Rate 108 07/18/2014 [facility] Neuro Systolic (mm Hg) 145 07/18/2014 [facility] Neuro Diastolic (mm Hg) 105 07/18/2014 [facility] Neuro Encounters Location Location Encounter Encounter Reason Attending ADM DC Status Source Details Type Number For Provider Date Date Visit [facility] Office [id number] Lenny 07/18 [facility] [id number] Avni DALEY /2013 Neuro e [place] [facility] Lab Report [id number] Lenny 07/20 07/20 [place] [address] Avni DLAEY /2013 [facility] [place] [facility] Emergency [id number] Silas 10/11 10/12 [facility] Inpatient [id number] March Karena 11/20 11/20 [place] Observation [id number] Kathya 02/18 02/18 KEREN [place] 0 Ed [facility] Inpatient [id number] Valentin 09/06 09/06 Francisco [place] 0 Briseyda [facility] Inpatient [id number] González 10/11 10/11 KREEN [place] [address] [facility] Procedures Procedure Code Date Perfomer Comments Source Cholecystectomy [id number] [facility] Laminectomy and [id number] [facility] discectomy [facility] Procedure on back [id number] [facility] Cholecystectomy [id number] [facility] Laminectomy and [id number] [facility] discectomy Procedure on back [id number] [facility] Cholecystectomy [id number] [facility] Laminectomy and [id number] [facility] discectomy Procedure on back [id number] [facility]
--- OUTSIDE RECORDS SUMMARY | 2018-08-09 14:01 | XMS REPORT | Continuity of Care Document ---
:1970 Author Organization [facility] Care Team Providers Name Role Phone Avni DALEY, Lenny Ackerman Unavailable Insurance Providers Payer name Policy type / Policy ID Covered libertarian ID Policy Nelson Coverage type CIGNA HEALTHCARE (PPO) CIGNA HEALTHCARE (PPO) CIGNA - OPEN ACCESS PLUS - LOCAL PLUS CIGNA - OPEN ACCESS PLUS - LOCAL PLUS CIGNA HEALTHCARE (PPO) CIGNA HEALTHCARE (PPO) CIGNA HEALTHCARE (PPO) CIGNA HEALTHCARE (PPO) Encounters Encounter Performer Location Date Office Visit Lenny Holly MD [facility] [place] Jul 18, 2014 Allergies, Adverse Reactions, Alerts Type Substance [...]
--- OUTSIDE RECORDS SUMMARY | 2018-08-09 14:02 | XMS REPORT | Summary of Care ---
:[address] [facility] Address [address] [place], [place] [address]- Encounter HQ Manav_yan(FIN) [id number] Date(s): 02/17/17 - 02/17/[address] [facility] [address] [place] [address]- [phone] Discharge Disposition: Left Against Medical Advise Attending Physician: Kathya Ward MD Admitting Physician: Kathya Ward MD Vital Signs No data available for this section Problem List Condition Effective Dates Status Health Status Informant Anxiety(Confirmed) 01/31/10 Active Back pain(Confirmed) Active Chest pain(Confirmed) 06/02/10 Active Depression(Confirmed) Resolved Depression (emotion)(Confirmed) Active Factor V inhibitor Resolved disorder(Confirmed) Hyperlipidemia(Confirmed) Active Hypertension(Confirmed) 01/31/10 Active Hypertension(Confirmed) Active Low back pain1 07/19/14 Active Lumbar radiculopathy2 07/19/14 Active Pain(Confirmed) Active Pain / sensation finding( )(Stable) 04/18/10 Active Pericarditis(Confirmed) Resolved Pulmonary embolism(Confirmed) Resolved Sinus tachycardia(Confirmed) 01/31/10 Active Spinal stenosis of lumbar region3 07/19/14 Active SVT - Supraventricular Resolved tachycardia(Confirmed) 1Data migrated from [employer] on 06/04/15.2Data migrated from [employer] on 06/04/15.3Data migrated from [employer] on 06/04/15. Allergies, Adverse Reactions, Alerts Substance Reaction Severity Status Ambien Sleep walking Active morphine Rash Active Toradol rash Active Medications No data available for this section Results No data available for this section Immunizations Given and Recorded Vaccine Date Status Refusal Reason influenza virus vaccine, inactivated1 05/11/14 Given tuberculin purified protein derivative 02/21/10 Given 1Admin Note: received at [facility] Procedures Procedure Date Related Diagnosis Body Site Cholecystectomy Laminectomy and discectomy Procedure on back Social History Social History Type Response Substance Abuse Use: None. Employment/School Status: Employed. Alcohol Never Smoking Status Never smoker; Exposure to Tobacco Smoke None; Cigarette Smoking Last 365 Days No; Reg Smoking Cessation Counseling Yes Assessment and Plan No data available for this section
--- OUTSIDE RECORDS SUMMARY | 2018-08-09 14:02 | XMS REPORT | Summary of Care ---
:1970 Author Organization [facility] Address [address] [place], [place] [address]- Encounter HQ Manav_yan(FIN) [id number] Date(s): 10/11/16 - 10/11/16 [facility] [address] [place] [address]- [phone] Discharge Diagnosis: Recurrent chest pain Discharge Disposition: Home or Self Care Attending Physician: Silas Sampson MD Vital Signs Most recent to oldest [Reference 1 2 3 Range]: Height 170.18 cm (10/11/16 3:40 PM) Temperature Oral [96.4-99.1 DegF] 98.2 DegF (10/11/16 3:40 PM) Blood Pressure [90-140/60-90 mmHg] 132/67 mmHg 139/65 mmHg 128/93 mmHg (10/11/16 6:27 PM) (10/11/16 5:00 PM) (10/11/16 3:40 PM) Respiratory Rate [14-20 BRMIN] 18 BRMIN 18 BRMIN 18 BRMIN (10/11/16 6:27 PM) (10/11/16 5:00 PM) (10/11/16 3:40 PM) Peripheral Pulse Rate [60-100 bpm] 96 bpm (10/11/16 3:40 PM) Weight 81.818 kg (10/11/16 3:40 PM) Body Mass Index 28.25 m2 (10/11/16 3:40 PM) Problem List Condition Effective Dates Status Health [...] - Supraventricular Resolved tachycardia(Confirmed) 1Data migrated from [employer] on 06/04/15.2Data migrated from [employer] on 06/04/15.3Data migrated from [employer] [...] derivative 02/21/10 Given 1Admin Note: received at [facility] Procedures Procedure Date Related Diagnosis Body [...]
--- OUTSIDE RECORDS SUMMARY | 2018-08-09 14:02 | XMS REPORT | Summary of Care ---
:1970 Author Organization [facility] Address [address] [place] [address]- Encounter HQ Manav_yan(FIN) [id number] Date(s): 09/05/17 - 09/05/[address] Professional Services provided by [facility] [place] [address]- Discharge Disposition: Left Against Medical Advise Attending Physician: Antony Rojas MD Admitting Physician: Antony Rojas MD Referring Physician: Valentin Rain MD Vital Signs No data available for [...] Adverse Reactions, Alerts Substance Reaction Severity Status morphine Rash Active Toradol rash Active Ambien Sleep walking Active Medications No data available for this section Results No data available for this section Immunizations Given and Recorded Vaccine Date Status Refusal Reason influenza virus vaccine, inactivated1 05/11/14 Given tuberculin purified protein derivative 02/21/10 Given 1Admin Note: received at [facility] Procedures Procedure Date Related Diagnosis Body [...]
--- OUTSIDE RECORDS SUMMARY | 2018-08-09 14:02 | XMS REPORT | Summary of Care ---
:1970 Author Organization [facility] Address [address], [place] [address]- Encounter HQ Encntr_yan(FIN) [id number] Date(s): 11/20/16 - 11/20/16 [facility] [address] [place] [address] Professional Services provided by [facility] [place] [address]- Discharge Disposition: Home or Self Care Attending Physician: Harrison Sibley MD Admitting Physician: Harrison Sibley MD Referring Physician: Liana Thurston MD Vital Signs Most recent to oldest [Reference Range]: 1 2 Height 170.18 cm (11/20/16 5:45 AM) Temperature Oral [96.4-99.1 DegF] 98.1 DegF 97.9 DegF (11/20/16 8:00 AM) (11/20/16 6:03 AM) Blood Pressure [90-140/60-90 mmHg] 142/99 mmHg 152/88 mmHg *HI* *HI* (11/20/16 6:23 AM) (11/20/16 5:45 AM) Respiratory Rate [14-20 BRMIN] 19 BRMIN 18 BRMIN (11/20/16 6:23 AM) (11/20/16 5:45 AM) Weight 81.818 kg (11/20/16 5:45 AM) Body Mass Index 28.25 m2 (11/20/16 5:45 AM) Problem List Condition Effective Dates Status Health [...] morphine Rash Active Toradol rash Active Medications Dilaudid 1 mg, 0.5 mL, Route: IVP, Drug form: INJ, ONCE, Dosing Weight 81.818, kg, Priority: STAT, Start date: 11/20/16 5:05:00 SALES DEVELOPMENT COORDINATOR, Stop date: 11/20/16 5:05:00 SALES DEVELOPMENT COORDINATOR Notes: Same as: Dilaudid Start Date: 11/20/16 Stop Date: 11/20/16 Status: Completedenoxaparin 80 mg/0.8 mL subcutaneous solution 80 mg, SUB-Q, Q12H, 0 Refill(s) Start Date: 11/20/16 Status: OrderedHeparin 40 unit/kg Bolus (Heparin Dosing Weight) Pharmacy To Manage, Route: IVP, PRN, Drug form: INJ, PRN, Heparin Protocol, Start date: 11/20/16 5:23:00 SALES DEVELOPMENT COORDINATOR Stop date: 12/20/16 6:22:00 CDT, 30 day Start Date: 11/20/16 Stop Date: 11/20/16 Status: DiscontinuedHeparin 80 unit/kg Bolus (Heparin Dosing Weight) Pharmacy To Manage, Route: IVP, PRN, Drug form: INJ, PRN, Heparin Protocol, Start date: 11/20/16 5:23:00 SALES DEVELOPMENT COORDINATOR Stop date: 12/20/16 6:22:00 CDT, 30 day Start Date: 11/20/16 Stop Date: 11/20/16 Status: Discontinuedheparin additive 25,000 unit [18 unit/kg/hr] + Premix Diluent Dextrose 5% 500 mL 500 mL, Rate: 26.06 ml/hr, Infuse over: 19.2 hr, Route: IVPB, Dosing Weight 72.39 kg, Total Volume: 500 mL, Start date: 11/20/16 5:23:00 SALES DEVELOPMENT COORDINATOR, Duration: 30 day, Stop date: 12/20/16 5:22:00 CDT Start Date: 11/20/16 Stop Date: 11/20/16 Status: DiscontinuedNorco 10/325 oral tablet 1 tab, PO, Q4H, PRN for pain, # 24 tab, 0 Refill(s) Start Date: 11/20/16 Stop Date: 11/24/16 Status: OrderedPlavix 75 mg oral tablet 75 mg=1 tab, PO, Daily, # 30 tab, 0 Refill(s) Start Date: 11/20/16 Status: Orderedsimvastatin 20 mg oral tablet 20 mg=1 tab, PO, Bedtime, # 30 tab, 1 Refill(s) Start Date: 11/20/16 Status: Ordered Results ELECTROLYTES Most recent to oldest [Reference Range]: 1 Sodium Lvl [135-145 mEq/L] 140 mEq/L (11/20/16 5:39 AM) Potassium Lvl [3.5-5.1 mEq/L] 3.3 mEq/L *LOW* (11/20/16 5:39 AM) Chloride Lvl [95-109 mEq/L] 107 mEq/L (11/20/16 5:39 AM) CO2 [24-32 mEq/L] 26 mEq/L (11/20/16 5:39 AM) AGAP [10.0-20.0 mEq/L] 10.3 mEq/L (11/20/16 5:39 AM) CHEM PANEL Most recent to oldest [Reference Range]: 1 Creatinine Lvl [0.50-1.40 mg/dL] 0.86 mg/dL (11/20/16 5:39 AM) eGFR 105 mL/min/1.73m2 1 *NA* (11/20/16 5:39 AM) BUN [7-22 mg/dL] 11 mg/dL (11/20/16 5:39 AM) B/C Ratio [6-25] 13 (11/20/16 5:39 AM) Glucose Lvl [70-99 mg/dL] 100 mg/dL *HI* (11/20/16 5:39 AM) Total Protein [6.4-8.4 g/dL] 7.3 g/dL (11/20/16 5:39 AM) Albumin Lvl [3.5-5.0 g/dL] 4.0 g/dL (11/20/16 5:39 AM) Globulin [2.7-4.2 g/dL] 3.3 g/dL (11/20/16 5:39 AM) A/G Ratio [0.7-1.6] 1.2 (11/20/16 5:39 AM) Calcium Lvl [8.5-10.5 mg/dL] 8.4 mg/dL *LOW* (11/20/16 5:39 AM) Phosphorus [2.5-4.5 mg/dL] 2.5 mg/dL (11/20/16 5:39 AM) Magnesium Lvl [1.8-2.4 mg/dL] 1.8 mg/dL (11/20/16 5:39 AM) ALT [0-65 unit/L] 22 unit/L (11/20/16 5:39 AM) AST [0-37 unit/L] 27 unit/L (11/20/16 5:39 AM) Alk Phos [39-136 unit/L] 78 unit/L (11/20/16 5:39 AM) Bili Total [0.2-1.3 mg/dL] 0.5 mg/dL (11/20/16 5:39 AM) 1Result Comment: The eGFR is calculated using the CKD-EPI formula. In most young , healthy individualsthe eGFR will be >90 mL/min/1.73m2. The eGFR declines with age. An eGFR of 60-89 may be normal in some populations, particularly the elderly, for whom the CKD-EPI formula has not been extensively validated. Use of the eGFR is not recommended in the following populations: Individuals with unstable creatinine concentrations, including patients and those with serious co-morbid conditions. Patients with extremes in muscle mass or diet. The data above are obtained from the National Kidney Disease Education Program ( NKDEP) which additionally recommends that when the eGFR is used in patients with extremes of body mass index for purposesof drug dosing, the eGFR should be multiplied by the estimated BMI.CARDIAC ENZYMES Most recent to oldest [Reference Range]: 1 Total CK [12-191 unit/L] 81 unit/L (11/20/16 5:39 AM) CK MB [0.5-3.6 ng/mL] 0.6 ng/mL (11/20/16 5:39 AM) CK MB Index [0.0-2.5] 0.7 (11/20/16 5:39 AM) Troponin-T [0.000-0.100 ng/mL] <0.010 ng/mL (11/20/16 5:39 AM) Troponin-I [0.00-0.40 ng/mL] <0.02 ng/mL (11/20/16 5:39 AM) HEMATOLOGY Most recent to oldest [Reference Range]: 1 WBC [3.7-10.4 K/CMM] 5.3 K/CMM (11/20/16 5:39 AM) RBC [4.70-6.10 M/CMM] 3.82 M/CMM *LOW* (11/20/16 5:39 AM) Hgb [14.0-18.0 g/dL] 9.2 g/dL *LOW* (11/20/16 5:39 AM) Hct [42.0-54.0 %] 29.2 % *LOW* (11/20/16 5:39 AM) MCV [80.0-94.0 fL] 76.5 fL *LOW* (11/20/16 5:39 AM) MCH [27.0-31.0 pg] 24.1 pg *LOW* (11/20/16 5:39 AM) MCHC [32.0-36.0 g/dL] 31.5 g/dL *LOW* (11/20/16 5:39 AM) RDW [11.5-14.5 %] 20.7 % *HI* (11/20/16 5:39 AM) Platelet [133-450 K/CMM] 316 K/CMM (11/20/16 5:39 AM) MPV [7.4-10.4 fL] 6.8 fL *LOW* (11/20/16 5:39 AM) Segs [45.0-75.0 %] 58.2 % (11/20/16 5:39 AM) Lymphocytes [20.0-40.0 %] 29.5 % (11/20/16 5:39 AM) Monocytes [2.0-12.0 %] 10.6 % (11/20/16 5:39 AM) Eosinophils [0.0-4.0 %] 0.1 % (11/20/16 5:39 AM) Basophils [0.0-1.0 %] 1.6 % *HI* (11/20/16 5:39 AM) Segs-Bands # [1.5-8.1 K/CMM] 3.1 K/CMM (11/20/16 5:39 AM) Lymphocytes # [1.0-5.5 K/CMM] 1.6 K/CMM (11/20/16 5:39 AM) Monocytes # [0.0-0.8 K/CMM] 0.6 K/CMM (11/20/16 5:39 AM) Basophils # [0.0-0.2 K/CMM] 0.1 K/CMM (11/20/16 5:39 AM) Microcyte [None Seen] 1+ *ABN* (11/20/16 5:39 AM) PT [12.0-14.7 seconds] 14.5 seconds (11/20/16 5:39 AM) INR [0.85-1.17] 1.11 (11/20/16 5:39 AM) PTT [22.9-35.8 seconds] 32.9 seconds (11/20/16 5:39 AM) Anti-Xa Unfractionated Heparin 0.67 IU/mL *NA* (11/20/16 5:39 AM) Immunizations Given and Recorded Vaccine Date Status Refusal Reason influenza virus vaccine, inactivated1 05/11/14 Given tuberculin purified protein derivative 02/21/10 Given 1Admin Note: received at [facility] Procedures Procedure Date Related Diagnosis Body Site Cholecystectomy Laminectomy and discectomy Procedure on back Social History Social History Type Response Substance Abuse Use: None. Employment/School Status: Employed. Alcohol Never Smoking Status Never smoker; Exposure to Tobacco Smoke None; Cigarette Smoking Last 365 Days No; Reg Smoking Cessation Counseling Yes Assessment and Plan Extracted from: Title: AMA Note Author: Yanna Crews MD Date: 11/20/16 Notified that patient was leaving because his mother had a medical emergency and had to leave the hospital. Explained that he could and leaving is against medical advice. He voiced understanding. Marky forman has signed AMA paperwork. He is leaving without prescriptions. Yanna Crews Manager [employer]
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
--- OUTSIDE RECORDS SUMMARY | 2018-08-09 14:05 | XMS REPORT | Continuity of Care Document ---
:1970 Author Organization [facility] Care Team Providers Name Role Phone LIBRA VELAZQUEZ Admitting Physician LIBRA VELAZQUEZ Attending Physician Hospital Admission Diagnosis Code Admission Diagnosis Date [id number] Chest pain Social History Element Code Description Smoking Start Date End Date Description Status Code System Smoking Status [id number] Current some day SNOMED-CT smoker Problems Code Code System Problem Name Start Date End Date Status 31695761 SNOMED-CT Pulmonary embolism 2013 Active 7606982 SNOMED-CT Supraventricular 2011 Active tachycardia 51927663 SNOMED-CT Chest pain u Active LUMBAR SURGERY Unknown Active 55750701 SNOMED-CT Myocardial infarction Unknown Active 315364656 SNOMED-CT Factor V Leiden Unknown Active mutation 97713259 SNOMED-CT Coronary Unknown Active arteriosclerosis 26286855 SNOMED-CT Hyperlipidemia Unknown Active Medications RxNorm Medication Dose Route Instructions Indications Start End Status Date Date 080691 atorvastatin 40 Oral orally every Active 40 MG Oral milligram day Tablet 797886 clopidogrel 75 75 Oral orally every Active MG Oral Tablet milligram day 793126 fondaparinux 7.5 Subcutaneo subcutaneously Active milligram us every day 728322 Lisinopril 10 10 Oral orally every Active MG Oral Tablet milligram day 4917 Nitroglycerin 0.4 Sublingual sublingually chest pain Active milligram every 5 to 15 minutes as needed. (3 doses) (until response; do not exceed 3 doses per event;) 003549 Acetaminophen 1 tablet Oral orally every 4 pain No 325 MG / to 6 hours as Longer Hydrocodone needed. Active Bitartrate 10 MG Oral Tablet 961744 Labetalol 100 Oral orally every 12 No hydrochloride milligram hours Longer 100 MG Oral Active Tablet 45898 tizanidine 4 Oral orally every muscle spasm No milligram 4-6 h as Longer needed. Active Allergies Code Code Allergy Type Reaction Severity Start End Status System Substance Date Date 13161115 RXNorm Ambien Drug Unknown Active allergy 73858 RXNorm Toradol Drug Unknown Active allergy 7052 [...] 8.0-11.0 fL 01/29/2018 1MPV 09:30 Performing Lab Footnotes:[address] [place] [address] - [id number] - [address] [facility] [place] [address] - [place] [address] [facility] - : DIRECTOR HEBER RUBY__ ____ Order: [...] 6.4-8.1 gm/dl 01/29/2018 Protein 09:30 Performing Lab Footnotes:[address] [place] [address] - [id number] - [address] [facility] [place] [address] - [place], [place] [address] [facility] - MD: DIRECTOR HEBER RUBY__ ____ Order: [...] NOT INTERCHANGEABLE BETWEEN METHODS. 10-18-2006 Performing Lab Footnotes:[address] [place] [address] [id number] - [address] [place] [id number] NOE Lozada MD: DIRECTOR HEBER RUBY__ ____ Order: ED2 TROPONIN I QUANTITATIVE LOINC Test Result Flag Range Unit Date 0 0.000-0.034 ng/ml 01/29/2018 1Troponin-I 09:30 Note: The 99th Percentile URL is 0.034 ng/mL. The Joint Society of Cardiology/[employer] College [employer] Cardiology (ESC/ACC) and the National [...] hours after the clinical event. Performing Lab Footnotes:[address] [place] [address] - [id number] - [address] [place] [address] NOE Lozada MD: DIRECTOR HEBER RUBY__ ____ Radiology Results Order: [id number] ED2 CT ANGIO CHEST W CONTRASTExam Completion Date:01/29/2018 09:32Procedure: ED2 CT ANGIO CHEST W CONTRAST Order date: 01/29/2018 9:32 AMOrdering Provider: ITALIA RITTERMONSClinical Indication: chest pain, tachycardiaComparison: NoneTechnique: Using a [...] 01/29/201810:58 AMDictated By: CESAR BENITEZDate: 01/29/2018 11:04Order: [id number] ED2 XR CHEST 2 PA LATERALExam Completion Date: 09:18Procedure: ED2 XR CHEST 2 PA LATERALOrder date: 01/29/2018 9:18 AMOrdering Provider: ITALIA RITTERTWO [facility]IVERS PSYCH[facility]ATRIC HOSPITALSClinical Indication: CHEST PAIN: Pain- ChestComparison: November 14, 2017Findings:Stable qvsbz-labhfZsbn-S- Cath.Cardiomediastinal silhouette is within normal limits. The [...] 190 lbs 01/29/2018 BSA (Body Surface Area) 1.02871 01/29/2018 BMI (Body Mass Index) 29.8 01/29/2018 Plan of Care No data in the system Procedures Code Code System Procedure Name Target Site Date of Procedure ED2 CT ANGIO 01/29/2018 11:04 CHEST W CONTRAST ED2 XR CHEST 01/29/2018 09:49 2 PA LATERAL Encounters Date Code Diagnosis Status (SNOMED-CT) - 43611323 CHEST PAIN UNSPECIFIED Active Immunizations Vaccine Code Code System Vaccine Name Date Status FLU PNEUM Completed Functional Status No data in the system Hospital Discharge Instructions No data in the system
--- OUTSIDE RECORDS SUMMARY | 2018-08-09 14:05 | XMS REPORT ---
:1970 [facility] [address] [place] [address] Care Team Providers Name Role Phone SUDEEP, DR ROJAS Unavailable Unavailable DR DALTON BUCIO Unavailable Unavailable NICHOLSONNIRANJAN ARMSTRONG Unavailable Unavailable JAQUI, WILL Unavailable Unavailable BEACH ILIANA Unavailable Unavailable SOTOMARIA LUISA Unavailable Unavailable ITALIA ACUNA Unavailable Unavailable MAURA, MUSTAQ KASAM Unavailable Unavailable DR JOLEEN KOWALSKI Unavailable Unavailable DO JULIET DORMAN Unavailable Unavailable ANTWAN HAMILTON Unavailable Unavailable DONNY NEWTON Unavailable Unavailable CATHERINE KWONG Unavailable Unavailable Payers Payer Name Policy Type Policy Number Effective Date Expiration Date Problems This patient has no known problems. Allergies, Adverse Reactions, Alerts Allergy Allergy Status Severity Reaction(s) Onset Inactive Treating Comments Name Type Date Date Clinician zolpidem DA Active [place] 2017-11 00:00:0 0 ketorolac DA Active [place] 2017-11 00:00:0 0 Medications This patient has no known medications. Encounters Start End Encounter Admission Attending Care Care Encounter Date/Time Date/Time Type Type Clinicians Facility Department ID 2018-07-31 2018-07-31 Emergency E SUDEEP Maki [facility] [id number] 00:38:00 05:56:00 BOB 2018-07-15 2018-07-16 Outpatient E KERRY BUCIO TELE [id number] 10:19:00 12:35:00 DALTON 2017-12-16 2017-12-16 Emergency E JOLEEN KOWALSKI [facility] [id number] 13:45:00 17:07:00 Results Test Description Test Time Test Comments Text Results Atomic Results Result Comments CARDIAC PROFILE *WW* 2018-07-31 05:25:00 Test Item Value Reference Range Comments TROPONIN I (test code=A84) <0.015 ng/mL 0.000-0.045 CBC (INCLUDES AUTOMATED DIFFERENTIAL)*[id number] 01:33:00 Test Item Value Reference Range Comments WBC (test code=WBC) 9.4 10\\S\\3/uL 4.5-11.0 RBC (test code=RBC) 4.40 10\\S\\6/uL 4.20-5.60 HGB (test code=HBG) 10.7 g/dL 14.0-18.0 HCT (test code=HCT) 34.3 % 35.0-46.0 MCV (test code=MCV) 78.0 fL 80.0-94.0 MCH (test code=MCH) 24.3 pg 27.0-31.0 MCHC (test code=MCHC) 31.2 g/dL 32.0-36.0 RDW (test code=RDW) 17.0 % 11.5-14.5 PLT (test code=PLT) 367 10\\S\\3/uL 130-400 MPV (test code=MPV) 9.2 fL 9.4-12.4 NEUTROP # (test code=NE#) 4.8 10\\S\\3/uL 2.0-8.0 LYMPH # (test code=LY#) 3.1 10\\S\\3/uL 1.2-4.0 MONOCYTE # (test code=MO#) 1.2 10\\S\\3/uL 0.0-1.1 EOSINOPH # (test code=EO#) 0.2 10\\S\\3/uL 0.0-0.7 BASOPHIL # (test code=BA#) 0.0 10\\S\\3/uL 0.0-0.3 IG # (test code=IG#) 0.02 10\\S\\3/uL 0.00-0.06 NRBC # (test code=NRBC#) 0.00 10\\S\\3/uL 0.00-0.01 NEUTROPH % (test code=NE%) 51.3 % 35.0-73.0 LYMPH % (test code=LY%) 32.9 % 20.0-55.0 MONO % (test code=MO%) 12.7 % 2.5-10.0 EOSINOPH % (test code=EO%) 2.5 % 0.0-5.0 BASOPHIL % (test code=BA%) 0.4 % 0.0-2.0 IG % (test code=IG%) 0.2 % 0.0-0.8 NRBC% (test code=NRBC%) 0.0 % 0.0-0.2 MANDIFF (test code=WMDIFF) NO NO RBC MORPH (test code=WRBCMOR) NORMAL URINALYSIS 2018-07-31 01:28:00 Test Item Value Reference Range Comments COLOR (test code=COLU) YELLOW YELLOW CLARITY (test code=CLA) CLEAR CLEAR GLUCOSE UR (test code=UA GLUCOSE) NEGATIVE NEGATIVE BILI UR (test code=BILE) NEGATIVE NEGATIVE KETONES UR (test code=CALI) NEGATIVE NEGATIVE SP GRAVITY (test code=SPGR) 1.010 1.005-1.030 PH UR (test code=PH) 6.0 4.5-8.0 PROTEIN UR (test code=PU) NEGATIVE NEGATIVE UROBIL UR (test code=UROQ) 0.2 EU/dL 0.2-1.0 NITRITE UR (test code=NITRITE) NEGATIVE NEGATIVE BLOOD UR (test code=UA BLOOD) NEGATIVE NEGATIVE LEUK ES UR (test code=LEUK) NEGATIVE NEGATIVE AUAM (test code=WAUAM) NO NO DRUGS OF ABUSE 2018-07-31 01:26:00 Test Item Value Reference Range Comments DRUG SCRN (test code=HDOA) URINE DRUG SCREEN This is an unconfirmed screening result and should not be used for non-medical purposes CANNABINOD (test code=88C) Negative NEGATIVE AMPHETAMINE (test code=84A) Negative NEGATIVE BENZODIAZP (test code=86A) Negative NEGATIVE BARBITURAT (test code=85A) Negative NEGATIVE OPIATES (test code=92B) Negative NEGATIVE COCAINE (test code=87A) Negative NEGATIVE PHENCYCLID (test code=66A) Negative NEGATIVE METHADONE (test code=64A) Negative NEGATIVE DOAH (test code=DOAH) URINE DRUG CREEN CUT OFF VALUES Amphetamines 1000 ng/mL Barbituates 300 ng/mL Benzodiazepines 300 ng/mL Cocaine 300 ng/mL Opiates 300 ng/mL Phencyclidine 25 ng/mL THC 50 ng/mL Tricyclic Antidepressants 1000 ng/mL CARDIAC PROFILE 2018-07-31 01:21:00 Test Item Value Reference Range Comments TROPONIN I (test code=A84) <0.015 ng/mL 0.000-0.045 BASIC METABOLIC PANEL 2018-07-31 01:18:00 Test Item Value Reference Range Comments GLUCOSE (test code=06D) 127 mg/dL 75-100 SODIUM (test code=01A) 137 mmol/L 136-145 POTASSIUM (test code=01B) 3.2 mmol/L 3.6-5.1 CHLORIDE (test code=04A) 104 mmol/L 98-107 CO2 (test code=02A) 21 mmol/L 22-32 ANION GAP (test code=ANG) 15.4 mmol/L BUN (test code=05D) 23 mg/dL 7-18 CREATININE (test code=03E) 1.4 mg/dL 0.7-1.3 BUN/CREA (test code=BCR) 16 12-20 CALCIUM (test code=09D) 8.6 mg/dL 8.3-9.5 THYROID PANEL/SCREEN (TSH) 2018-07-16 07:05:00 Test Item Value Reference Range Comments TSH (test code=WTSH) 2.040 uIU/mL 0.358-3.740 BASIC METABOLIC PANEL 2018-07-16 06:46:00 Test Item Value Reference Range Comments GLUCOSE (test code=06D) 92 mg/dL 75-100 SODIUM (test code=01A) 139 mmol/L 136-145 POTASSIUM (test code=01B) 3.8 mmol/L 3.6-5.1 CHLORIDE (test code=04A) 106 mmol/L 98-107 CO2 (test code=02A) 26 mmol/L 22-32 ANION GAP (test code=ANG) 10.8 mmol/L BUN (test code=05D) 21 mg/dL 7-18 CREATININE (test code=03E) 0.9 mg/dL 0.7-1.3 BUN/CREA (test code=BCR) 22 12-20 CALCIUM (test code=09D) 7.9 mg/dL 8.3-9.5 CBC (INCLUDES AUTOMATED DIFFERENTIAL)*[id number] 06:34:00 Test Item Value Reference Range Comments WBC (test code=WBC) 8.1 10\\S\\3/uL 4.5-11.0 RBC (test code=RBC) 3.41 10\\S\\6/uL 4.20-5.60 HGB (test code=HBG) 8.5 g/dL 14.0-18.0 HCT (test code=HCT) 27.2 % 35.0-46.0 MCV (test code=MCV) 79.8 fL 80.0-94.0 MCH (test code=MCH) 24.9 pg 27.0-31.0 MCHC (test code=MCHC) 31.3 g/dL 32.0-36.0 RDW (test code=RDW) 17.4 % 11.5-14.5 PLT (test code=PLT) 278 10\\S\\3/uL 130-400 MPV (test code=MPV) 9.3 fL 9.4-12.4 NEUTROP # (test code=NE#) 4.8 10\\S\\3/uL 2.0-8.0 LYMPH # (test code=LY#) 1.9 10\\S\\3/uL 1.2-4.0 MONOCYTE # (test code=MO#) 1.1 10\\S\\3/uL 0.0-1.1 EOSINOPH # (test code=EO#) 0.2 10\\S\\3/uL 0.0-0.7 BASOPHIL # (test code=BA#) 0.0 10\\S\\3/uL 0.0-0.3 IG # (test code=IG#) 0.02 10\\S\\3/uL 0.00-0.06 NRBC # (test code=NRBC#) 0.00 10\\S\\3/uL 0.00-0.01 NEUTROPH % (test code=NE%) 59.5 % 35.0-73.0 LYMPH % (test code=LY%) 24.0 % 20.0-55.0 MONO % (test code=MO%) 13.8 % 2.5-10.0 EOSINOPH % (test code=EO%) 2.1 % 0.0-5.0 BASOPHIL % (test code=BA%) 0.4 % 0.0-2.0 IG % (test code=IG%) 0.2 % 0.0-0.8 NRBC% (test code=NRBC%) 0.0 % 0.0-0.2 MANDIFF (test code=WMDIFF) NO NO RBC MORPH (test code=WRBCMOR) NORMAL PRO TIME AND PTT 2018-07-15 14:26:00 Test Item Value Reference Range Comments PT (test code=TT) 11.0 s 9.8-13.6 INR (test code=INR) 1.0 INRH (test code=INRH) SUGGESTED THERAPEUTIC RANGE FOR INR: 2.5 - 3.5 For Patients with Prosthetic Valves or Patients with recurrent Thromboembolic Events 2.0 - 3.0 For Most Other Applications PTT (test code=PTT) 34.3 s 20.2-38.0 PTTH (test code=PTTH) To monitor the effectiveness of heparin, we offer the Anti-Xa (Heparin Assay). It can be used for either unfractionated or LMW Heparin. Order Code is ANTI-XA CARDIAC PROFILE 2018-07-15 14:07:00 Test Item Value Reference Range Comments TROPONIN I (test code=A84) <0.015 ng/mL 0.000-0.045 CKMB (test code=A49) <1.0 ng/mL <=3.6 CPK (test code=32A) 90 IU/L 39-308 CT PE PROTOCOL 2018-07-15 09:48:59CT CHEST WITH CONTRAST, PE PROTOCOL: Location code: [id number] HISTORY: Shortness of breath , chest painCOMPARISON: 12/16/17TECHNIQUE: Following the administration of a timed IV contrast bolus, helicalCT of the chest was performed. Thin section axial, coronal, and sagittalimages were obtained. Oblique sagittal maximum intensity reformatted images ofthe pulmonary arteries were also obtained. One ormore of the following dosereduction techniques were used: Automated exposure control, adjustment of themA and or KV according to patient size, and/or utilization of iterativereconstruction technique. DLP: 816.49 mGy-cm.FINDINGS: There is no filling defect within the pulmonary arteries to suggest pulmonaryembolus. The aorta is of normal caliber and contour. The lungs are clear. There is no consolidation or effusion. The centralairways are patent.There is no mediastinal adenopathy or mass. There is no pericardial effusion. Images through the upper abdomen are unremarkable.The bones, skin and surrounding soft tissues are unremarkable. IMPRESSION:1. Negative for PE2. No acute intrathoracic abnormality.BASIC METABOLIC PANEL *WW*2018-07-15 09:09:00 Test Item Value Reference Range Comments GLUCOSE (test code=06D) 136 mg/dL 75-100 SODIUM (test code=01A) 140 mmol/L 136-145 POTASSIUM (test code=01B) 3.2 mmol/L 3.6-5.1 CHLORIDE (test code=04A) 106 mmol/L 98-107 CO2 (test code=02A) 22 mmol/L 22-32 ANION GAP (test code=ANG) 14.8 mmol/L BUN (test code=05D) 18 mg/dL 7-18 CREATININE (test code=03E) 1.0 mg/dL 0.7-1.3 BUN/CREA (test code=BCR) 17 12-20 CALCIUM (test code=09D) 8.6 mg/dL 8.3-9.5 Arterial Blood [id number] 08:55:00 Test Item Value Reference Range Comments pH (test code=PHRT) 7.412 7.350-7.450 pCO2 (test code=PCO2RT) 36.2 mmHg 35.0-45.0 pO2 (test code=PO2RT) 99.7 mmHg 80.0-110.0 HCO3? (test code=HCO3) 22.6 mmol/L 22.0-26.0 DARIO (test code=DARIO) -1.1 mmol/L -3.0-3.0 tHb (test code=THBRT) 11.0 g/dL 14.0-18.0 sO2 (test code=SO2RT) 96.9 % 92.0-100.0 FO2Hb (test code=UL6CAXY) 94.7 % 94.0-100.0 FCOHb (test code=FCOHBRT) 1.2 % 0.0-3.0 FMetHb (test code=FMETHBRT) 1.1 % 0.2-0.6 ABGTEMP (test code=ABGTEMP) * Temp Corrected Values* ABGTEMP (test code=ABGTEMP.) 37.0 ?C pH (T) (test code=PHTEMP) 7.412 7.350-7.450 pCO2 (T) (test code=KAX0ADOU) 36.2 mmHg 35.0-45.0 pO2 (T) (test code=SW4OQYK) 99.7 mmHg 80.0-110.0 Device (test code=DEVICE) ROOM AIR FI02 (test code=FI02) 21.0 % Liter_flow (test code=LF) VENPAR (test code=VENPAR) * Ventilator Parameters * SIMV (test code=SIMV) A/C (test code=A/C) CPAP (test code=CPAP) PEEP (test code=PEEP) PS (test code=PS) PIP (test code=PIP) I_Time (test code=ITIME) Vt (test code=VT) BIPAP INSP (test code=BIPAPINP) BIPAP EXP (test code=BIPAPEXP) Vasu test (test code=ATEST) Positive SAMPLE SITE (test code=SSITE) Right Radial Artery COMMENT (test code=CO) PTT(PARTIAL PLASMA THROBOPL 2018-07-15 07:46:00 Test Item Value Reference Range Comments PTT (test code=PTT) 80.8 s 20.2-38.0 PTTH (test code=PTTH) To monitor the effectiveness of heparin, we offer the Anti-Xa (Heparin Assay). It can be used for either unfractionated or LMW Heparin. Order Code is ANTI-XA CARDIAC PROFILE 2018-07-15 07:45:00 Test Item Value Reference Range Comments TROPONIN I (test code=A84) <0.015 ng/mL 0.000-0.045 CKMB (test code=A49) <1.0 ng/mL <=3.6 CPK (test code=32A) 90 IU/L 39-308 PROTHROMBIN TIME 2018-07-15 07:36:00 Test Item Value Reference Range Comments PT (test code=TT) 10.5 s 9.8-13.6 INR (test code=INR) 0.9 INRH (test code=INRH) SUGGESTED THERAPEUTIC RANGE FOR INR: 2.5 - 3.5 For Patients with Prosthetic Valves or Patients with recurrent Thromboembolic Events 2.0 - 3.0 For Most Other Applications CBC (INCLUDES AUTOMATED DIFFERENTIAL)*[id number] 07:33:00 Test Item Value Reference Range Comments WBC (test code=WBC) 9.4 10\\S\\3/uL 4.5-11.0 RBC (test code=RBC) 4.22 10\\S\\6/uL 4.20-5.60 HGB (test code=HBG) 10.4 g/dL 14.0-18.0 HCT (test code=HCT) 33.4 % 35.0-46.0 MCV (test code=MCV) 79.1 fL 80.0-94.0 MCH (test code=MCH) 24.6 pg 27.0-31.0 MCHC (test code=MCHC) 31.1 g/dL 32.0-36.0 RDW (test code=RDW) 17.2 % 11.5-14.5 PLT (test code=PLT) 347 10\\S\\3/uL 130-400 MPV (test code=MPV) 9.0 fL 9.4-12.4 NEUTROP # (test code=NE#) 5.6 10\\S\\3/uL 2.0-8.0 LYMPH # (test code=LY#) 2.7 10\\S\\3/uL 1.2-4.0 MONOCYTE # (test code=MO#) 1.0 10\\S\\3/uL 0.0-1.1 EOSINOPH # (test code=EO#) 0.1 10\\S\\3/uL 0.0-0.7 BASOPHIL # (test code=BA#) 0.0 10\\S\\3/uL 0.0-0.3 IG # (test code=IG#) 0.02 10\\S\\3/uL 0.00-0.06 NRBC # (test code=NRBC#) 0.00 10\\S\\3/uL 0.00-0.01 NEUTROPH % (test code=NE%) 59.3 % 35.0-73.0 LYMPH % (test code=LY%) 28.1 % 20.0-55.0 MONO % (test code=MO%) 10.8 % 2.5-10.0 EOSINOPH % (test code=EO%) 1.3 % 0.0-5.0 BASOPHIL % (test code=BA%) 0.3 % 0.0-2.0 IG % (test code=IG%) 0.2 % 0.0-0.8 NRBC% (test code=NRBC%) 0.0 % 0.0-0.2 MANDIFF (test code=WMDIFF) NO NO RBC MORPH (test code=WRBCMOR) NORMAL XR CHEST 1 VIEW PORTABLE *WW*2018-07-15 07:25:22Location: [id number], FRONTAL VIEW HISTORY: [id number]: Chest painCOMPARISON: Chest x-ray 388FINDINGS: The lungs are clear without consolidation. No pleural effusion or pneumothorax.The heart size is normal. Thebones are unremarkable. Right IJ Port- A-Cath isin the SVC.IMPRESSION:No evidence of acute cardiopulmonary disease.BLOOD [id number] 16:00:00 Test Item Value Reference Range Comments CULTURE (BEAKER) (test ckvk=2113) No growth in 5 days BLOOD [id number] 16:00:00 Test Item Value Reference Range Comments CULTURE (BEAKER) (test pbkg=2833) No growth in 5 days LACTIC ACID, VENOUS, WHOLE [id number] 14:43:00 Test Item Value Reference Range Comments LACTATE BLOOD VENOUS (2) (BEAKER) (test 1.3 mmol/L 0.5-2.2 fshf=5452) Effective 02/12/2016: Units/Reference Range ChangeNew: 0.5-2.2 mmol/L Previous: 5 -18 mg/dLURINALYSIS W/ REFLEX URINE [id number] 14:17:00 Test Item Value Reference Range Comments COLOR (BEAKER) (test hpse=895) Yellow CLARITY (BEAKER) (test grcq=880) Clear SPECIFIC GRAVITY UA (BEAKER) (test bnzt=568) 1.010 1.001-1.035 PH UA (BEAKER) (test qmez=256) 7.0 5.0-8.0 PROTEIN UA (BEAKER) (test alsa=937) Negative Negative GLUCOSE UA (BEAKER) (test siuh=636) Negative Negative KETONES UA (BEAKER) (test axul=424) Negative Negative BILIRUBIN UA (BEAKER) (test dpgf=306) Negative Negative BLOOD UA (BEAKER) (test cqmd=334) Negative Negative NITRITE UA (BEAKER) (test ifzw=084) Negative Negative LEUKOCYTE ESTERASE UA (BEAKER) (test Negative Negative bpfz=362) UROBILINOGEN UA (BEAKER) (test qexp=623) 0.2 mg/dL 0.2-1.0 BACTERIA (BEAKER) (test jgnk=541) None Seen RBC UA-MANUAL (BEAKER) (test jssl=1876) None Seen /HPF WBC UA-MANUAL (BEAKER) (test kdsw=4252) <5 /HPF SQUAMOUS EPITHELIAL MANUAL (BEAKER) (test None Seen /HPF hutt=8613) SOURCE(BEAKER) (test cmwe=6317) CT, CHEST WITH IV CONTRAST- PE TEST [id number] 13:14:00Reason for exam:-& gt;CHEST PAINReason for exam:->h/o recurrent PEsWhat is the patient's sedation requirement?->No SedationFINAL REPORT TECHNIQUE: CT scan of the chest [...] segmental branch of the left pulmonary artery, notclearly seen on prior exam (axial postcontrast arterial [...] emboli on the right. Signed: Louis Pacheco MDReport Verified Date/ Time: 05/24/2018 13:14:23 Reading Location: [address] Radiology Reading Room LACTIC ACID, VENOUS, WHOLE [id number] 11:37:00 Test Item Value Reference Range Comments LACTATE BLOOD VENOUS (2) (BEAKER) (test 4.6 mmol/L 0.5-2.2 biwn=1197) Effective 02/12/2016: Units/Reference Range ChangeNew: 0.5-2.2 mmol/L Previous: 5 -18 mg/dLCBC W/PLT COUNT & AUTO [id number] 11:20:00 Test Item Value Reference Range Comments WHITE BLOOD CELL COUNT (BEAKER) (test pjcv=427) 9.8 K/ L 4.0-10.0 RED BLOOD CELL COUNT (BEAKER) (test fnbg=615) 4.15 M/ L 4.20-5.80 HEMOGLOBIN (BEAKER) (test mynb=427) 10.7 GM/DL 13.0-16.8 HEMATOCRIT (BEAKER) (test kigy=919) 33.6 % 40.0-50.0 MEAN CORPUSCULAR VOLUME (BEAKER) (test nwnz=447) 80.8 fL 82.0-98.0 MEAN CORPUSCULAR HEMOGLOBIN (BEAKER) (test 25.7 pg 27.0-33.0 lfdu=806) MEAN CORPUSCULAR HEMOGLOBIN CONC (BEAKER) (test 31.8 GM/DL 32.0-36.0 xeuk=240) RED CELL DISTRIBUTION WIDTH (BEAKER) (test 28.4 % 10.3-14.2 vdnd=536) PLATELET COUNT (BEAKER) (test hpui=507) 324 K/CU MM 150-430 MEAN PLATELET VOLUME (BEAKER) (test tugo=418) 7.3 fL 6.5-10.5 NUCLEATED RED BLOOD CELLS (BEAKER) (test 0 /100 WBC 0-0 bquh=647) NEUTROPHILS RELATIVE PERCENT (BEAKER) (test 75 % mbqx=434) LYMPHOCYTES RELATIVE PERCENT (BEAKER) (test 17 % htft=961) MONOCYTES RELATIVE PERCENT (BEAKER) (test 6 % sdnj=110) EOSINOPHILS RELATIVE PERCENT (BEAKER) (test 2 % uayw=257) BASOPHILS RELATIVE PERCENT (BEAKER) (test 0 % upxm=237) NEUTROPHILS ABSOLUTE COUNT (BEAKER) (test 7.30 K/ L 1.80-8.00 qfyf=311) LYMPHOCYTES ABSOLUTE COUNT (BEAKER) (test 1.70 K/ L 1.48-4.50 tkcj=711) MONOCYTES ABSOLUTE COUNT (BEAKER) (test 0.60 K/ L 0.00-1.30 jqfm=971) EOSINOPHILS ABSOLUTE COUNT (BEAKER) (test 0.20 K/ L 0.00-0.50 vmbs=569) BASOPHILS ABSOLUTE COUNT (BEAKER) (test 0.00 K/ L 0.00-0.20 pwxq=440) (MANUAL DIFFERENTIAL)2018-05-24 11:20:00 Test Item Value Reference Range Comments TOTAL COUNTED (BEAKER) (test ssza=4434) WBC MORPHOLOGY (BEAKER) (test fpqw=481) Normal PLT MORPHOLOGY (BEAKER) (test fxxm=514) Normal ANISOCYTOSIS (BEAKER) (test fmew=978) 3+ many HYPOCHROMIA (BEAKER) (test vqln=002) 3+ many TROPONIN [id number] 11:12:00 Test Item Value Reference Range Comments TROPONIN I (BEAKER) (test qrqi=815) < ng/mL 0.00-0.15 Troponin I (TnI) levels [...] and persistent tachyarrhythmia.CREATINE KINASE (CK), TOTAL AND [id number] 11:11:00 Test Item Value Reference Range Comments CREATINE KINASE TOTAL (BEAKER) (test fxcn=002) 76 U/L 40-250 CREATINE KINASE-MB (BEAKER) (test krpd=407) 1.2 ng/mL 0.0-4.9 CREATINE KINASE-MB INDEX (BEAKER) (test ilex=591) 1.6 % CK-MB Reference Range:<5 Normal5-10 Borderline>10 AbnormalHEPATIC FUNCTION [id number] 11:06:00 Test Item Value Reference Range Comments TOTAL PROTEIN (BEAKER) (test ahaw=096) 7.0 gm/dL 6.0-8.5 ALBUMIN (BEAKER) (test mlwv=0138) 4.3 g/dL 3.5-5.0 BILIRUBIN TOTAL (BEAKER) (test cjvh=689) 0.4 mg/dL 0.1-1.2 BILIRUBIN DIRECT (BEAKER) (test raio=032) 0.2 mg/dL 0.0-0.4 ALKALINE PHOSPHATASE (BEAKER) (test mjml=698) 70 U/L 30-115 AST (SGOT) (BEAKER) (test hckh=372) 18 U/L 5-40 ALT (SGPT) (BEAKER) (test jcdv=339) 13 U/L 5-50 BASIC METABOLIC [id number] 11:03:00 Test Item Value Reference Range Comments SODIUM (BEAKER) (test 138 meq/L 135-148 mlzc=955) POTASSIUM (BEAKER) (test 3.6 meq/L 3.6-5.5 uwrx=421) CHLORIDE (BEAKER) (test 106 meq/L 98-106 xhgq=314) CO2 (BEAKER) (test 21 meq/L 20-29 dixy=080) BLOOD UREA NITROGEN 11 mg/dL 10-26 (BEAKER) (test dpkm=691) CREATININE (BEAKER) (test 0.96 mg/dL 0.50-1.20 ebhg=487) GLUCOSE RANDOM (BEAKER) 212 mg/dL 70-110 (test lsty=337) CALCIUM (BEAKER) (test 9.4 mg/dL 8.5-10.5 oafl=174) EGFR (BEAKER) (test 84 mL/min/1.73 sq m ESTIMATED GFR IS NOT mhxa=1347) ACCURATE CREATININE CLEARANCE IN PREDICTING GLOMERULAR FILTRATION RATE. ESTIMATED GFR IS NOT APPLICABLE FOR DIALYSIS PATIENTS. B-TYPE NATRIURETIC FACTOR (BNP)2018-05-24 11:02:00 Test Item Value Reference Range Comments B-TYPE NATRIURETIC PEPTIDE (BEAKER) (test vrqz=744) 8 pg/mL 0-100 [id number] 10:53:00 Test Item Value Reference Range Comments PROTIME (BEAKER) (test vise=246) 9.9 sec 9.3-12.0 INR (BEAKER) (test tgtd=494) 0.9 <=5.9 PARTIAL THROMBOPLASTIN TIME (BEAKER) (test 39.3 sec 23.0-35.0 gvdf=836) RECOMMENDED COUMADIN/WARFARIN INR THERAPY RANGESSTANDARD DOSE: 2.0 - 3.0 Includes: PROPHYLAXIS forvenous thrombosis, systemic embolization; TREATMENT for venous thrombosis and/or pulmonary embolus.HIGH RISK: Target INR is 2.5-3.5 for patients with mechanical heart valves.Final Information (Auto Output)Final Information (Auto Output)Final Information (Auto Output)RAD, CHEST, 1 VIEW, NON [id number] 10:18:00Reason for exam:->CHEST PAINShould this be performed at the bedside?->YesFINAL REPORT Chest one view INDICATION: Chest pain COMPARISON: 09/27/2016 IMPRESSION: There is no focal consolidation, vascular congestion, pleural effusion, or pneumothorax. Heart size is within normal limits. Mild aortic tortuosity is noted. A right chest Port-A-Cath is in place. The bones appear intact. Signed: June Evangelista MDReport Verified Date/Time: 05/24/2018 10:18:17 Reading Location: [facility] Radiology Reading Room CBC W/PLT COUNT & AUTO [id number] 08: 55:00 Test Item Value Reference Range Comments WHITE BLOOD CELL COUNT (BEAKER) (test qxro=534) 5.4 K/ L 4.0-10.0 RED BLOOD CELL COUNT (BEAKER) (test mzox=287) 3.90 M/ L 4.20-5.80 HEMOGLOBIN (BEAKER) (test qytq=009) 9.2 GM/DL 13.0-16.8 HEMATOCRIT (BEAKER) (test wlds=080) 29.2 % 40.0-50.0 MEAN CORPUSCULAR VOLUME (BEAKER) (test iire=891) 75.0 fL 82.0-98.0 MEAN CORPUSCULAR HEMOGLOBIN (BEAKER) (test 23.7 pg 27.0-33.0 hpga=816) MEAN CORPUSCULAR HEMOGLOBIN CONC (BEAKER) (test 31.5 GM/DL 32.0-36.0 pigh=416) RED CELL DISTRIBUTION WIDTH (BEAKER) (test 26.3 % 10.3-14.2 dcya=186) PLATELET COUNT (BEAKER) (test btto=475) 338 K/CU MM 150-430 MEAN PLATELET VOLUME (BEAKER) (test ayqu=512) 7.9 fL 6.5-10.5 (MANUAL DIFFERENTIAL)2018-04-26 08:55:00 Test Item Value Reference Range Comments NEUTROPHILS - REL (DIFF) (BEAKER) (test vjzf=1361) 61 % LYMPHOCYTES - REL (DIFF) (BEAKER) (test wysx=6665) 32 % MONOCYTES - REL (DIFF) (BEAKER) (test rewx=5562) 5 % EOSINOPHILS - REL (DIFF) (BEAKER) (test lupo=8743) 2 % NEUTROPHILS - ABS (DIFF) (BEAKER) (test lffe=3680) 3.29 K/ L 1.80-8.00 LYMPHOCYTES - ABS (DIFF) (BEAKER) (test cale=4451) 1.73 K/ L 1.48-4.50 MONOCYTES - ABS (DIFF) (BEAKER) (test gkzo=1795) 0.27 K/ L 0.00-1.30 EOSINOPHILS - ABS (DIFF) (BEAKER) (test vhwp=7122) 0.11 K/ L 0.00-0.50 TOTAL COUNTED (BEAKER) (test yuwm=5058) 100 WBC MORPHOLOGY (BEAKER) (test vncw=171) Normal PLT MORPHOLOGY (BEAKER) (test frdc=109) Normal ANISOCYTOSIS (BEAKER) (test ckpg=863) 1+ few HYPOCHROMIA (BEAKER) (test eloe=319) 3+ many PROTHROMBIN TIME/[id number] 06:37:00 Test Item Value Reference Range Comments PROTIME (BEAKER) (test ahgl=153) 21.9 sec 9.3-12.0 INR (BEAKER) (test ymry=642) 2.1 <=5.9 RECOMMENDED COUMADIN/WARFARIN INR THERAPY RANGESSTANDARD DOSE: 2.0 - 3.0 Includes: PROPHYLAXIS forvenous thrombosis, systemic embolization; TREATMENT for venous thrombosis and/or pulmonary embolus.HIGH RISK: Target INR is 2.5-3.5 for patients with mechanical heart valves.Final Information (Auto Output)Final Information (Auto Output)[id number] 04:49:00 Test Item Value Reference Range Comments PARTIAL THROMBOPLASTIN TIME (BEAKER) (test crtb=428) > sec 23.0-35.0 Final Information (Auto Output)[id number] 16:53:00 Test Item Value Reference Range Comments PARTIAL THROMBOPLASTIN TIME (BEAKER) (test ufrd=136) > sec 23.0-35.0 Final Information (Auto Output)[id number] 06:08:00 Test Item Value Reference Range Comments PARTIAL THROMBOPLASTIN TIME (BEAKER) (test 116.2 sec 23.0-35.0 vltt=081) Final Information (Auto Output)PROTHROMBIN TIME/[id number] 06:01:00 Test Item Value Reference Range Comments PROTIME (BEAKER) (test upnx=090) 15.9 sec 9.3-12.0 INR (BEAKER) (test vzhb=708) 1.5 <=5.9 RECOMMENDED COUMADIN/WARFARIN INR THERAPY RANGESSTANDARD DOSE: 2.0 - 3.0 Includes: PROPHYLAXIS forvenous thrombosis, systemic embolization; TREATMENT for venous thrombosis and/or pulmonary embolus.HIGH RISK: Target INR is 2.5-3.5 for patients with mechanical heart valves.Final Information (Auto Output)Final Information (Auto Output)[id number] 19:40:00 Test Item Value Reference Range Comments PARTIAL THROMBOPLASTIN TIME (BEAKER) (test 67.2 sec 23.0-35.0 ogks=035) Final Information (Auto Output)[id number] 10:46:00 Test Item Value Reference Range Comments PARTIAL THROMBOPLASTIN TIME (BEAKER) (test 63.5 sec 23.0-35.0 lhqk=589) Final Information (Auto Output)CBC W/PLT COUNT & AUTO [id number] 06:53:00 Test Item Value Reference Range Comments WHITE BLOOD CELL COUNT (BEAKER) (test zgje=270) 6.3 K/ L 4.0-10.0 RED BLOOD CELL COUNT (BEAKER) (test fxsx=431) 3.98 M/ L 4.20-5.80 HEMOGLOBIN (BEAKER) (test eiqr=811) 9.2 GM/DL 13.0-16.8 HEMATOCRIT (BEAKER) (test mpyx=589) 29.6 % 40.0-50.0 MEAN CORPUSCULAR VOLUME (BEAKER) (test uazn=431) 74.3 fL 82.0-98.0 MEAN CORPUSCULAR HEMOGLOBIN (BEAKER) (test 23.1 pg 27.0-33.0 bsbm=637) MEAN CORPUSCULAR HEMOGLOBIN CONC (BEAKER) (test 31.1 GM/DL 32.0-36.0 kdra=247) RED CELL DISTRIBUTION WIDTH (BEAKER) (test 23.2 % 10.3-14.2 ccgy=810) PLATELET COUNT (BEAKER) (test rswg=769) 356 K/CU MM 150-430 MEAN PLATELET VOLUME (BEAKER) (test xjoq=354) 7.3 fL 6.5-10.5 NUCLEATED RED BLOOD CELLS (BEAKER) (test 0 /100 WBC 0-0 kshg=723) NEUTROPHILS RELATIVE PERCENT (BEAKER) (test 49 % utrv=336) LYMPHOCYTES RELATIVE PERCENT (BEAKER) (test 36 % ivti=322) MONOCYTES RELATIVE PERCENT (BEAKER) (test 12 % oldb=731) EOSINOPHILS RELATIVE PERCENT (BEAKER) (test 3 % gofm=441) BASOPHILS RELATIVE PERCENT (BEAKER) (test 0 % kycc=571) NEUTROPHILS ABSOLUTE COUNT (BEAKER) (test 3.10 K/ L 1.80-8.00 evll=766) LYMPHOCYTES ABSOLUTE COUNT (BEAKER) (test 2.30 K/ L 1.48-4.50 cbny=176) MONOCYTES ABSOLUTE COUNT (BEAKER) (test 0.80 K/ L 0.00-1.30 biiz=255) EOSINOPHILS ABSOLUTE COUNT (BEAKER) (test 0.20 K/ L 0.00-0.50 woff=593) BASOPHILS ABSOLUTE COUNT (BEAKER) (test 0.00 K/ L 0.00-0.20 lgeg=955) (MANUAL DIFFERENTIAL)2018-04-24 06:53:00 Test Item Value Reference Range Comments TOTAL COUNTED (BEAKER) (test ijdx=0817) WBC MORPHOLOGY (BEAKER) (test tnkf=772) Normal PLT MORPHOLOGY (BEAKER) (test pytg=186) Normal ANISOCYTOSIS (BEAKER) (test iwpz=570) 2+ moderate BASOPHILIC STIPPLING (BEAKER) (test wkpa=339) Present HYPOCHROMIA (BEAKER) (test dalc=910) 2+ moderate MACROCYTES (BEAKER) (test mtdt=924) 1+ few MICROCYTES (BEAKER) (test bjcw=878) 1+ few POLYCHROMATOPHILLIC RBCS(BEAKER) (test iyxc=689) 1+ few PROTHROMBIN TIME/[id number] 05:46:00 Test Item Value Reference Range Comments PROTIME (BEAKER) (test cdey=227) 14.5 sec 9.3-12.0 INR (BEAKER) (test xzkp=498) 1.4 <=5.9 RECOMMENDED COUMADIN/WARFARIN INR THERAPY RANGESSTANDARD DOSE: 2.0 - 3.0 Includes: PROPHYLAXIS forvenous thrombosis, systemic embolization; TREATMENT for venous thrombosis and/or pulmonary embolus.HIGH RISK: Target INR is 2.5-3.5 for patients with mechanical heart valves.Final Information (Auto Output)Final Information (Auto Output)[id number] 01:17:00 Test Item Value Reference Range Comments PARTIAL THROMBOPLASTIN TIME (BEAKER) (test 71.8 sec 23.0-35.0 qqjg=951) Final Information (Auto Output)[id number] 15:40:00 Test Item Value Reference Range Comments PARTIAL THROMBOPLASTIN TIME (BEAKER) (test 34.8 sec 23.0-35.0 grhk=902) Final Information (Auto Output)PROTHROMBIN TIME/[id number] 06:10:00 Test Item Value Reference Range Comments PROTIME (BEAKER) (test qygs=812) 12.2 sec 9.3-12.0 INR (BEAKER) (test yzbt=248) 1.1 <=5.9 RECOMMENDED COUMADIN/WARFARIN INR THERAPY RANGESSTANDARD DOSE: 2.0 - 3.0 Includes: PROPHYLAXIS forvenous thrombosis, systemic embolization; TREATMENT for venous thrombosis and/or pulmonary embolus.HIGH RISK: Target INR is 2.5-3.5 for patients with mechanical heart valves.Final Information (Auto Output)Final Information (Auto Output)[id number] 06:10:00 Test Item Value Reference Range Comments PARTIAL THROMBOPLASTIN TIME (BEAKER) (test 36.3 sec 23.0-35.0 ssbk=266) Final Information (Auto Output)[id number] 20:01:00 Test Item Value Reference Range Comments PARTIAL THROMBOPLASTIN TIME (BEAKER) (test 122.6 sec 23.0-35.0 mgix=187) Final Information (Auto Output)PROTHROMBIN TIME/[id number] 12:53:00 Test Item Value Reference Range Comments PROTIME (BEAKER) (test anwe=575) 12.6 sec 9.3-12.0 INR (BEAKER) (test wsze=654) 1.2 <=5.9 RECOMMENDED COUMADIN/WARFARIN INR THERAPY RANGESSTANDARD DOSE: 2.0 - 3.0 Includes: PROPHYLAXIS forvenous thrombosis, systemic embolization; TREATMENT for venous thrombosis and/or pulmonary embolus.HIGH RISK: Target INR is 2.5-3.5 for patients with mechanical heart valves.Final Information (Auto Output)Final Information (Auto Output)PROTEIN ELECTROPHORESIS, [id number] 12:15:00 Test Item Value Reference Range Comments ALBUMIN FRACTION (BEAKER) 3.5 g/dL 3.5-5.5 (test mvgv=700) ALPHA 1 FRACTION (BEAKER) 0.2 g/dL 0.2-0.4 (test rhmp=948) ALPHA 2 FRACTION (BEAKER) 0.6 g/dL 0.5-0.9 (test ywhh=056) BETA FRACTION (BEAKER) (test 1.1 g/dL 0.6-1.1 befz=231) GAMMA GLOBULIN FRACTION 0.8 g/dL 0.7-1.7 (BEAKER) (test pzvv=753) INTERPRETATION-119 (BEAKER) All fractions present in (test rgrv=2864) expected distribution. No monoclonal bands detected. [id number] (BEAKER) Annmarie Thomas MD (test vjue=0304) (electronic signature) PROTEIN TOTAL SERUM, SPEP 6.3 gm/dL 6.0-8.3 (BEAKER) (test wksv=9481) CBC W/PLT COUNT & AUTO [id number] 11:59:00 Test Item Value Reference Range Comments WHITE BLOOD CELL COUNT (BEAKER) (test eqci=427) 6.4 K/ L 4.0-10.0 RED BLOOD CELL COUNT (BEAKER) (test olwc=012) 3.87 M/ L 4.20-5.80 HEMOGLOBIN (BEAKER) (test gjoo=156) 8.8 GM/DL 13.0-16.8 HEMATOCRIT (BEAKER) (test tleg=707) 28.3 % 40.0-50.0 MEAN CORPUSCULAR VOLUME (BEAKER) (test iqbp=231) 72.9 fL 82.0-98.0 MEAN CORPUSCULAR HEMOGLOBIN (BEAKER) (test 22.7 pg 27.0-33.0 jytw=967) MEAN CORPUSCULAR HEMOGLOBIN CONC (BEAKER) (test 31.1 GM/DL 32.0-36.0 vgyb=968) RED CELL DISTRIBUTION WIDTH (BEAKER) (test 22.3 % 10.3-14.2 smvk=855) PLATELET COUNT (BEAKER) (test yquo=566) 339 K/CU MM 150-430 MEAN PLATELET VOLUME (BEAKER) (test knoa=816) 7.0 fL 6.5-10.5 NUCLEATED RED BLOOD CELLS (BEAKER) (test 0 /100 WBC 0-0 tokk=468) NEUTROPHILS RELATIVE PERCENT (BEAKER) (test 53 % knhf=599) LYMPHOCYTES RELATIVE PERCENT (BEAKER) (test 31 % tzbt=031) MONOCYTES RELATIVE PERCENT (BEAKER) (test 13 % aaly=571) EOSINOPHILS RELATIVE PERCENT (BEAKER) (test 3 % yxeg=073) BASOPHILS RELATIVE PERCENT (BEAKER) (test 0 % ordf=726) NEUTROPHILS ABSOLUTE COUNT (BEAKER) (test 3.40 K/ L 1.80-8.00 smku=169) LYMPHOCYTES ABSOLUTE COUNT (BEAKER) (test 2.00 K/ L 1.48-4.50 yaiv=564) MONOCYTES ABSOLUTE COUNT (BEAKER) (test 0.80 K/ L 0.00-1.30 ouvr=905) EOSINOPHILS ABSOLUTE COUNT (BEAKER) (test 0.20 K/ L 0.00-0.50 woli=186) BASOPHILS ABSOLUTE COUNT (BEAKER) (test 0.00 K/ L 0.00-0.20 hitx=286) (MANUAL DIFFERENTIAL)2018-04-22 11:59:00 Test Item Value Reference Range Comments TOTAL COUNTED (BEAKER) (test jcbj=7915) WBC MORPHOLOGY (BEAKER) (test rreb=562) Normal PLT MORPHOLOGY (BEAKER) (test bvwa=459) Normal ANISOCYTOSIS (BEAKER) (test qybl=445) 2+ moderate HYPOCHROMIA (BEAKER) (test vlwl=008) 3+ many PROTHROMBIN GENE [id number] 11:51:00 Test Item Value Reference Range Comments PROTHROMBIN/FACTOR II Negative for the [id number] (BEAKER) (test gdki=0263) (Prothrombin/Factor II) mutation. [id number](NIMO Thomas MD ) (test nlpk=5863) (electronic signature) This test is a genotyping assay which evaluates the DNA sequence at position 53798 of the prothrombin (Factor II) gene. A region of the prothrombin (Factor II) gene is amplified by polymerase chain reaction followed by fluorescent monitoring of a specific pair of hybridized probes. Since genetic variation and other factors can affect the accuracy of direct mutation testing, these results should be interpreted in light of clinical and familial data.This test was developed and its performance characteristics determined by the [facility] Pathology Department, Section of Molecular Pathology. It has not been cleared or approved by the U.S. Food and Drug Administration (FDA), since FDA approval is not required for clinical use of the test. Validation was done as required by the Clinical Laboratory Improvement Amendments of 1988.FACTOR 5 LEIDEN PCR (THROMBOTIC RISK)2018-04-22 11:49:00 Test Item Value Reference Range Comments FACTOR V LEIDEN (BEAKER) Negative for the R506Q (Factor (test tdza=962) V Leiden) mutation [id number] ([facility]) Annmarie Thomas MD (test ryom=3391) (electronic signature) This test is a genotyping assay which evaluates the DNA sequence corresponding to Codon 506 of the Factor V Gene. A region of the Factor V Gene is amplified by polymerase chain reaction followed by fluorescent monitoring of a specific pair of hybridized probes. Since genetic variation and other factors can affect the accuracy of direct mutation testing, these results should be interpreted in light ofclinical and familial data.This test [facility] developed [facility]. It has not been cleared or approved by the U.S. Food and Drug Administration (FDA), since FDA approval is not required for clinical use of the test. Validation was done as required by the Clinical Laboratory Improvement Amendments of 1988.[id number] 10:00:00 Test Item Value Reference Range Comments PARTIAL THROMBOPLASTIN TIME (BEAKER) (test jkaj=826) > sec 23.0-35.0 Final Information (Auto Output)[id number] 00:43:00 Test Item Value Reference Range Comments PARTIAL THROMBOPLASTIN TIME (BEAKER) (test 81.0 sec 23.0-35.0 ksxv=928) Final Information (Auto Output)[id number] 17:32:00 Test Item Value Reference Range Comments PARTIAL THROMBOPLASTIN TIME (BEAKER) (test 37.3 sec 23.0-35.0 fxew=292) Final Information (Auto Output)CBC W/PLT COUNT & AUTO [id number] 08:19:00 Test Item Value Reference Range Comments WHITE BLOOD CELL COUNT (BEAKER) (test zamb=390) 6.2 K/ L 4.0-10.0 RED BLOOD CELL COUNT (BEAKER) (test kuru=309) 3.89 M/ L 4.20-5.80 HEMOGLOBIN (BEAKER) (test bnrt=618) 8.7 GM/DL 13.0-16.8 HEMATOCRIT (BEAKER) (test gxdx=547) 27.8 % 40.0-50.0 MEAN CORPUSCULAR VOLUME (BEAKER) (test oxjp=393) 71.4 fL 82.0-98.0 MEAN CORPUSCULAR HEMOGLOBIN (BEAKER) (test 22.4 pg 27.0-33.0 ausa=073) MEAN CORPUSCULAR HEMOGLOBIN CONC (BEAKER) (test 31.4 GM/DL 32.0-36.0 eqeg=062) RED CELL DISTRIBUTION WIDTH (BEAKER) (test 21.7 % 10.3-14.2 stjx=469) PLATELET COUNT (BEAKER) (test ovbt=199) 347 K/CU MM 150-430 MEAN PLATELET VOLUME (BEAKER) (test drqo=012) 7.1 fL 6.5-10.5 NUCLEATED RED BLOOD CELLS (BEAKER) (test 0 /100 WBC 0-0 gnta=709) NEUTROPHILS RELATIVE PERCENT (BEAKER) (test 52 % jcef=596) LYMPHOCYTES RELATIVE PERCENT (BEAKER) (test 34 % rasx=437) MONOCYTES RELATIVE PERCENT (BEAKER) (test 10 % thxp=182) EOSINOPHILS RELATIVE PERCENT (BEAKER) (test 3 % wvmm=707) BASOPHILS RELATIVE PERCENT (BEAKER) (test 0 % grrn=764) NEUTROPHILS ABSOLUTE COUNT (BEAKER) (test 3.20 K/ L 1.80-8.00 bmis=728) LYMPHOCYTES ABSOLUTE COUNT (BEAKER) (test 2.10 K/ L 1.48-4.50 iska=808) MONOCYTES ABSOLUTE COUNT (BEAKER) (test 0.60 K/ L 0.00-1.30 qnof=278) EOSINOPHILS ABSOLUTE COUNT (BEAKER) (test 0.20 K/ L 0.00-0.50 oenj=489) BASOPHILS ABSOLUTE COUNT (BEAKER) (test 0.00 K/ L 0.00-0.20 foks=622) (MANUAL DIFFERENTIAL)2018-04-21 08:19:00 Test Item Value Reference Range Comments TOTAL COUNTED (BEAKER) (test aeln=5672) WBC MORPHOLOGY (BEAKER) (test yijw=787) Normal PLT MORPHOLOGY (BEAKER) (test gslp=736) Normal ANISOCYTOSIS (BEAKER) (test iitp=229) 2+ moderate HYPOCHROMIA (BEAKER) (test wwxt=180) 2+ moderate MICROCYTES (BEAKER) (test wdzg=530) 1+ few POLYCHROMATOPHILLIC RBCS(BEAKER) (test jqat=404) 1+ few BASIC METABOLIC [id number] 08:00:00 Test Item Value Reference Range Comments SODIUM (BEAKER) (test 141 meq/L 135-148 sofa=921) POTASSIUM (BEAKER) (test 3.6 meq/L 3.6-5.5 xokt=988) CHLORIDE (BEAKER) (test 109 meq/L 98-106 bvib=491) CO2 (BEAKER) (test 24 meq/L 20-29 mkhu=775) BLOOD UREA NITROGEN 9 mg/dL 10-26 (BEAKER) (test qxpo=330) CREATININE (BEAKER) (test 0.76 mg/dL 0.50-1.20 eojm=156) GLUCOSE RANDOM (BEAKER) 86 mg/dL 70-110 (test pqyi=387) CALCIUM (BEAKER) (test 9.0 mg/dL 8.5-10.5 vqsq=452) EGFR (BEAKER) (test 110 mL/min/1.73 sq m ESTIMATED GFR IS NOT wssh=8425) ACCURATE CREATININE CLEARANCE IN PREDICTING GLOMERULAR FILTRATION RATE. ESTIMATED GFR IS NOT APPLICABLE FOR DIALYSIS PATIENTS. PROTHROMBIN TIME/[id number] 07:55:00 Test Item Value Reference Range Comments PROTIME (BEAKER) (test pdon=596) 11.4 sec 9.3-12.0 INR (BEAKER) (test fmvt=478) 1.1 <=5.9 RECOMMENDED COUMADIN/WARFARIN INR THERAPY RANGESSTANDARD DOSE: 2.0 - 3.0 Includes: PROPHYLAXIS forvenous thrombosis, systemic embolization; TREATMENT for venous thrombosis and/or pulmonary embolus.HIGH RISK: Target INR is 2.5-3.5 for patients with mechanical heart valves.Final Information (Auto Output)Final Information (Auto Output)[id number] 07:52:00 Test Item Value Reference Range Comments PARTIAL THROMBOPLASTIN TIME (BEAKER) (test 71.6 sec 23.0-35.0 fuop=705) Final Information (Auto Output)[id number] 22:28:00 Test Item Value Reference Range Comments PARTIAL THROMBOPLASTIN TIME (BEAKER) (test 119.3 sec 23.0-35.0 pcgu=273) Final Information (Auto Output)CBC (HEMOGRAM ONLY)2018-04-20 21:32:00 Test Item Value Reference Range Comments WHITE BLOOD CELL COUNT (BEAKER) (test gwke=113) 7.0 K/ L 4.0-10.0 RED BLOOD CELL COUNT (BEAKER) (test hkjw=969) 3.89 M/ L 4.20-5.80 HEMOGLOBIN (BEAKER) (test vwxo=936) 8.8 GM/DL 13.0-16.8 HEMATOCRIT (BEAKER) (test pspj=486) 27.6 % 40.0-50.0 MEAN CORPUSCULAR VOLUME (BEAKER) (test xkyg=752) 70.8 fL 82.0-98.0 MEAN CORPUSCULAR HEMOGLOBIN (BEAKER) (test 22.6 pg 27.0-33.0 cbwq=157) MEAN CORPUSCULAR HEMOGLOBIN CONC (BEAKER) (test 32.0 GM/DL 32.0-36.0 ywpc=037) RED CELL DISTRIBUTION WIDTH (BEAKER) (test 20.0 % 10.3-14.2 hmaa=862) PLATELET COUNT (BEAKER) (test gzdw=835) 360 K/CU MM 150-430 MEAN PLATELET VOLUME (BEAKER) (test lfii=077) 7.4 fL 6.5-10.5 [id number] 12:43:00 Test Item Value Reference Range Comments PARTIAL THROMBOPLASTIN TIME (BEAKER) (test 72.2 sec 23.0-35.0 nbne=139) Final Information (Auto Output)CARDIOLIPIN ANTIBODIES, IGG AND [id number] 12: 16:00 Test Item Value Reference Range Comments ANTICARDIOLIPIN IGG ANTIBODY (BEAKER) (test < GPL <20.0 sgdw=024) ANTICARDIOLIPIN IGM ANTIBODY (BEAKER) (test 0.5 MPL <20.0 lvkn=672) Anticardiolipin IgG Result Interpretation: <20.0 GPL Normal>/=20.0 GPL PositiveAnticardiolipin IgM Result Interpretation: <20.0 MPL Normal>/= 20.0 MPL PositiveCBC W/PLT COUNT & AUTO [id number] 08:58:00 Test Item Value Reference Range Comments WHITE BLOOD CELL COUNT (BEAKER) (test xcyj=942) 6.4 K/ L 4.0-10.0 RED BLOOD CELL COUNT (BEAKER) (test fqur=211) 4.00 M/ L 4.20-5.80 HEMOGLOBIN (BEAKER) (test homi=061) 9.0 GM/DL 13.0-16.8 HEMATOCRIT (BEAKER) (test wcuu=409) 28.6 % 40.0-50.0 MEAN CORPUSCULAR VOLUME (BEAKER) (test phqn=320) 71.7 fL 82.0-98.0 MEAN CORPUSCULAR HEMOGLOBIN (BEAKER) (test 22.5 pg 27.0-33.0 jzep=166) MEAN CORPUSCULAR HEMOGLOBIN CONC (BEAKER) (test 31.4 GM/DL 32.0-36.0 fryj=193) RED CELL DISTRIBUTION WIDTH (BEAKER) (test 21.7 % 10.3-14.2 pmnu=156) PLATELET COUNT (BEAKER) (test gpfk=211) 355 K/CU MM 150-430 MEAN PLATELET VOLUME (BEAKER) (test gncp=319) 7.1 fL 6.5-10.5 NUCLEATED RED BLOOD CELLS (BEAKER) (test 0 /100 WBC 0-0 pwjy=327) NEUTROPHILS RELATIVE PERCENT (BEAKER) (test 48 % npti=849) LYMPHOCYTES RELATIVE PERCENT (BEAKER) (test 36 % hvmc=735) MONOCYTES RELATIVE PERCENT (BEAKER) (test 12 % wlgv=684) EOSINOPHILS RELATIVE PERCENT (BEAKER) (test 4 % hjtb=261) BASOPHILS RELATIVE PERCENT (BEAKER) (test 0 % bxvo=718) NEUTROPHILS ABSOLUTE COUNT (BEAKER) (test 3.10 K/ L 1.80-8.00 ztho=358) LYMPHOCYTES ABSOLUTE COUNT (BEAKER) (test 2.30 K/ L 1.48-4.50 mket=350) MONOCYTES ABSOLUTE COUNT (BEAKER) (test 0.80 K/ L 0.00-1.30 odxz=518) EOSINOPHILS ABSOLUTE COUNT (BEAKER) (test 0.20 K/ L 0.00-0.50 khja=205) BASOPHILS ABSOLUTE COUNT (BEAKER) (test 0.00 K/ L 0.00-0.20 vllv=521) (MANUAL DIFFERENTIAL)2018-04-20 08:58:00 Test Item Value Reference Range Comments TOTAL COUNTED (BEAKER) (test eiig=2627) WBC MORPHOLOGY (BEAKER) (test ktge=321) Normal PLT MORPHOLOGY (BEAKER) (test lydj=718) Normal ANISOCYTOSIS (BEAKER) (test tlkv=415) 1+ few HYPOCHROMIA (BEAKER) (test pihb=971) 1+ few POIKILOCYTES (BEAKER) (test cwhc=825) 1+ few POLYCHROMATOPHILLIC RBCS(BEAKER) (test skct=909) 1+ few BASIC METABOLIC [id number] 08:26:00 Test Item Value Reference Range Comments SODIUM (BEAKER) (test 140 meq/L 135-148 kmqw=017) POTASSIUM (BEAKER) (test 3.9 meq/L 3.6-5.5 wluy=415) CHLORIDE (BEAKER) (test 107 meq/L 98-106 exkm=928) CO2 (BEAKER) (test 24 meq/L 20-29 fnfe=510) BLOOD UREA NITROGEN 12 mg/dL 10-26 (BEAKER) (test ebqu=537) CREATININE (BEAKER) (test 0.76 mg/dL 0.50-1.20 zojz=274) GLUCOSE RANDOM (BEAKER) 92 mg/dL 70-110 (test llgz=540) CALCIUM (BEAKER) (test 8.9 mg/dL 8.5-10.5 mdbo=323) EGFR (BEAKER) (test 110 mL/min/1.73 sq m ESTIMATED GFR IS NOT hjxc=9831) ACCURATE CREATININE CLEARANCE IN PREDICTING GLOMERULAR FILTRATION RATE. ESTIMATED GFR IS NOT APPLICABLE FOR DIALYSIS PATIENTS. PROTHROMBIN TIME/[id number] 08:16:00 Test Item Value Reference Range Comments PROTIME (BEAKER) (test ajey=398) 10.6 sec 9.3-12.0 INR (BEAKER) (test emgr=715) 1.0 <=5.9 RECOMMENDED COUMADIN/WARFARIN INR THERAPY RANGESSTANDARD DOSE: 2.0 - 3.0 Includes: PROPHYLAXIS forvenous thrombosis, systemic embolization; TREATMENT for venous thrombosis and/or pulmonary embolus.HIGH RISK: Target INR is 2.5-3.5 for patients with mechanical heart valves.Final Information (Auto Output)Final Information (Auto Output)[id number] 08:16:00 Test Item Value Reference Range Comments D-DIMER QUANTITATIVE (BEAKER) (test azji=086) 0.93 mg/L <0.50 REGARDING D-DIMER RESULTS: The 98% NPV (Negative Predictive Value) for DVT/PE exclusion is 0.50 mg/LFEU as suggested by the grape grower and as approved by the FDA.Final Information (Auto Output)[id number] 02:51:00 Test Item Value Reference Range Comments PARTIAL THROMBOPLASTIN TIME (BEAKER) (test iauy=185) > sec 23.0-35.0 Final Information (Auto Output)[id number] 17:54:00 Test Item Value Reference Range Comments PARTIAL THROMBOPLASTIN TIME (BEAKER) (test 72.2 sec 23.0-35.0 ggpj=898) Final Information (Auto Output)ANTITHROMBIN [id number] 11:29:00 Test Item Value Reference Range Comments ANTITHROMBIN III ACTIVITY (BEAKER) (test nqii=584) 81.0 % 80.0-120.0 CBC W/PLT COUNT & AUTO [id number] 10:34:00 Test Item Value Reference Range Comments WHITE BLOOD CELL COUNT (BEAKER) (test pwii=257) 6.6 K/ L 4.0-10.0 RED BLOOD CELL COUNT (BEAKER) (test vtjh=773) 3.93 M/ L 4.20-5.80 HEMOGLOBIN (BEAKER) (test glfe=000) 8.9 GM/DL 13.0-16.8 HEMATOCRIT (BEAKER) (test lske=042) 28.3 % 40.0-50.0 MEAN CORPUSCULAR VOLUME (BEAKER) (test zpoo=349) 71.9 fL 82.0-98.0 MEAN CORPUSCULAR HEMOGLOBIN (BEAKER) (test 22.5 pg 27.0-33.0 ntua=612) MEAN CORPUSCULAR HEMOGLOBIN CONC (BEAKER) (test 31.3 GM/DL 32.0-36.0 jxqy=352) RED CELL DISTRIBUTION WIDTH (BEAKER) (test 21.0 % 10.3-14.2 jhwq=237) PLATELET COUNT (BEAKER) (test sjit=129) 339 K/CU MM 150-430 MEAN PLATELET VOLUME (BEAKER) (test yrby=910) 7.2 fL 6.5-10.5 NUCLEATED RED BLOOD CELLS (BEAKER) (test 0 /100 WBC 0-0 pqzu=606) NEUTROPHILS RELATIVE PERCENT (BEAKER) (test 52 % zkrp=938) LYMPHOCYTES RELATIVE PERCENT (BEAKER) (test 32 % bxtv=656) MONOCYTES RELATIVE PERCENT (BEAKER) (test 11 % xpny=405) EOSINOPHILS RELATIVE PERCENT (BEAKER) (test 4 % umkj=325) BASOPHILS RELATIVE PERCENT (BEAKER) (test 0 % smnl=134) NEUTROPHILS ABSOLUTE COUNT (BEAKER) (test 3.40 K/ L 1.80-8.00 zccw=255) LYMPHOCYTES ABSOLUTE COUNT (BEAKER) (test 2.10 K/ L 1.48-4.50 wcgy=621) MONOCYTES ABSOLUTE COUNT (BEAKER) (test 0.70 K/ L 0.00-1.30 wxzd=848) EOSINOPHILS ABSOLUTE COUNT (BEAKER) (test 0.30 K/ L 0.00-0.50 xqvx=391) BASOPHILS ABSOLUTE COUNT (BEAKER) (test 0.00 K/ L 0.00-0.20 kcfh=037) (MANUAL DIFFERENTIAL)2018-04-19 10:34:00 Test Item Value Reference Range Comments TOTAL COUNTED (BEAKER) (test jmxs=6687) WBC MORPHOLOGY (BEAKER) (test bhqk=855) Normal PLT MORPHOLOGY (BEAKER) (test tluk=048) Normal ANISOCYTOSIS (BEAKER) (test yoqc=052) 3+ many HYPOCHROMIA (BEAKER) (test cjoa=757) 2+ moderate MICROCYTES (BEAKER) (test ywqg=230) 1+ few TROPONIN [id number] 09:42:00 Test Item Value Reference Range Comments TROPONIN I (BEAKER) (test pqcz=406) < ng/mL 0.00-0.15 Troponin I (TnI) levels [...] acute neurological disease, and persistent tachyarrhythmia.BASIC METABOLIC [id number] 09:34:00 Test Item Value Reference Range Comments SODIUM (BEAKER) (test 140 meq/L 135-148 mydy=719) POTASSIUM (BEAKER) (test 3.8 meq/L 3.6-5.5 lzzi=389) CHLORIDE (BEAKER) (test 107 meq/L 98-106 oilj=228) CO2 (BEAKER) (test 25 meq/L 20-29 ddjn=371) BLOOD UREA NITROGEN 12 mg/dL 10-26 (BEAKER) (test wrdj=013) CREATININE (BEAKER) (test 0.83 mg/dL 0.50-1.20 lgzg=602) GLUCOSE RANDOM (BEAKER) 106 mg/dL 70-110 (test rcaf=977) CALCIUM (BEAKER) (test 9.1 mg/dL 8.5-10.5 abqp=647) EGFR (BEAKER) (test 99 mL/min/1.73 sq m ESTIMATED GFR IS NOT hpcn=2504) ACCURATE CREATININE CLEARANCE IN PREDICTING GLOMERULAR FILTRATION RATE. ESTIMATED GFR IS NOT APPLICABLE FOR DIALYSIS PATIENTS. PT/[id number] 05:06:00 Test Item Value Reference Range Comments PROTIME (BEAKER) (test efbu=011) 10.0 sec 9.3-12.0 INR (BEAKER) (test mjdo=615) 0.9 <=5.9 PARTIAL THROMBOPLASTIN TIME (BEAKER) (test 26.5 sec 23.0-35.0 mrlv=945) RECOMMENDED COUMADIN/WARFARIN INR THERAPY RANGESSTANDARD DOSE: 2.0 - 3.0 Includes: PROPHYLAXIS forvenous thrombosis, systemic embolization; TREATMENT for venous thrombosis and/or pulmonary embolus.HIGH RISK: Target INR is 2.5-3.5 for patients with mechanical heart valves.Final Information (Auto Output)Final Information (Auto Output)Final Information (Auto Output)TROPONIN [id number] 20: 04:00 Test Item Value Reference Range Comments TROPONIN I (BEAKER) (test fzja=742) < ng/mL 0.00-0.15 Troponin I (TnI) levels [...] failure, acidosis, acute neurological disease, and persistent tachyarrhythmia.[id number] 20:01:00 Test Item Value Reference Range Comments HOMOCYSTEINE (BEAKER) (test zmat=374) 6.1 umol/L 5.1-15.4 VITAMIN B12 AND [id number] 18:10:00 Test Item Value Reference Range Comments VITAMIN B12 (BEAKER) (test hlry=151) 497 pg/mL 213-816 FOLATE (BEAKER) (test mong=641) 6.5 ng/mL >=7.0 IRON, TIBC, % SAT. (WITHOUT FERRITIN)2018-04-18 17:43:00 Test Item Value Reference Range Comments IRON (BEAKER) (test ogbc=985) 16 ug/dL 40-160 TOTAL IRON BINDING CAPACITY (BEAKER) (test 468 ug/dL 250-450 bgqg=159) IRON % SATURATION (2) (BEAKER) (test eyiz=6810) 3 % 20-55 PT/[id number] 13:31:00 Test Item Value Reference Range Comments PROTIME (BEAKER) (test ywcs=887) 10.9 sec 9.3-12.0 INR (BEAKER) (test hlsq=422) 1.0 <=5.9 PARTIAL THROMBOPLASTIN TIME (BEAKER) (test 131.9 sec 23.0-35.0 eydq=636) RECOMMENDED COUMADIN/WARFARIN INR THERAPY RANGESSTANDARD DOSE: 2.0 - 3.0 Includes: PROPHYLAXIS forvenous thrombosis, systemic embolization; TREATMENT for venous thrombosis and/or pulmonary embolus.HIGH RISK: Target INR is 2.5-3.5 for patients with mechanical heart valves.Final Information (Auto Output)Final Information (Auto Output)Final Information (Auto Output)PATIENT ON BLOOD THINNER PER SINAI WRIGHT [id number] DOPPLER LEGS, [id number] 12:31: 00Reason for exam:->PEFINAL REPORT History: Lower extremity swelling Comparison: None [...] the bilateral lower extremities. Signed: Tremayne Tapia Verified Date/Time: 04/18/2018 12:31:58 Reading Location: [facility] Radiology Reading Room Electronically signed by: TREMAYNE TAPIA M.D. on 06/2018 12:31 [id number] 12:28:00 Test Item Value Reference Range Comments FERRITIN (BEAKER) (test aijy=718) 8 ng/mL 22-322 LACTATE DEHYDROGENASE (LDH)2018-04-18 11:27:00 Test Item Value Reference Range Comments LACTATE DEHYDROGENASE (BEAKER) (test rswv=533) 174 U/L 107-206 RETICULOCYTE [id number] 11:11:00 Test Item Value Reference Range Comments RETICULOCYTE COUNT PCT (BEAKER) (test fjhn=838) 1.5 % 0.4-2.9 TROPONIN [id number] 06:08:00 Test Item Value Reference Range Comments TROPONIN I (BEAKER) (test gpua=652) < ng/mL 0.00-0.15 Troponin I (TnI) levels [...] acute neurological disease, and persistent tachyarrhythmia.BASIC METABOLIC [id number] 06:00:00 Test Item Value Reference Range Comments SODIUM (BEAKER) (test 138 meq/L 135-148 hpnf=134) POTASSIUM (BEAKER) (test 3.7 meq/L 3.6-5.5 lwsj=842) CHLORIDE (BEAKER) (test 107 meq/L 98-106 pvmt=526) CO2 (BEAKER) (test 24 meq/L 20-29 qkub=301) BLOOD UREA NITROGEN 8 mg/dL 10-26 (BEAKER) (test kqqu=223) CREATININE (BEAKER) (test 0.84 mg/dL 0.50-1.20 lvds=907) GLUCOSE RANDOM (BEAKER) 86 mg/dL 70-110 (test sbsl=273) CALCIUM (BEAKER) (test 8.2 mg/dL 8.5-10.5 noji=143) EGFR (BEAKER) (test 98 mL/min/1.73 sq m ESTIMATED GFR IS NOT jdtd=2793) ACCURATE CREATININE CLEARANCE IN PREDICTING GLOMERULAR FILTRATION RATE. ESTIMATED GFR IS NOT APPLICABLE FOR DIALYSIS PATIENTS. [id number] 01:22:00 Test Item Value Reference Range Comments PARTIAL THROMBOPLASTIN TIME (BEAKER) (test 23.3 seconds 23.0-35.0 olke=670) CBC (HEMOGRAM ONLY)2018-04-18 01:12:00 Test Item Value Reference Range Comments WHITE BLOOD CELL COUNT (BEAKER) (test pnrv=701) 7.5 K/ L 4.0-10.0 RED BLOOD CELL COUNT (BEAKER) (test drff=997) 3.77 M/ L 4.20-5.80 HEMOGLOBIN (BEAKER) (test mwpy=452) 8.0 GM/DL 13.0-16.8 HEMATOCRIT (BEAKER) (test rxgd=338) 26.3 % 40.0-50.0 MEAN CORPUSCULAR VOLUME (BEAKER) (test gndg=582) 69.7 fL 82.0-98.0 MEAN CORPUSCULAR HEMOGLOBIN (BEAKER) (test 21.2 pg 27.0-33.0 mjhq=785) MEAN CORPUSCULAR HEMOGLOBIN CONC (BEAKER) (test 30.4 GM/DL 32.0-36.0 rkjz=989) RED CELL DISTRIBUTION WIDTH (BEAKER) (test 19.2 % 10.3-14.2 pnje=193) PLATELET COUNT (BEAKER) (test kvhb=104) 395 K/CU MM 150-430 MEAN PLATELET VOLUME (BEAKER) (test wesn=288) 7.6 fL 6.5-10.5 CT, CHEST WITH IV CONTRAST- PE TEST [id number] 23:21:00Reason for exam:-& gt;CHEST PAINWhat is the patient's sedation requirement?->No SedationFINAL REPORT EXAMINATION: CHEST CT / PE PROTOCOL CLINICAL HISTORY: CHEST PAIN, SHORTNESS OF BREATH TECHNIQUE: Following the administration of I.V. contrast, axial images wereacquired through the pulmonary arteries during the early arterial phase of imaging. Following a brief delay, additional axial tomographic images were acquired through the thorax. Following postprocessing, coronal and sagittal reformatted images were created and reviewed. The exam was performed according to our departmental dose optimization program which includes automated exposure control, adjustment of the mA and/or kV according to patient's size and/or use of iterative reconstructive technique. FINDINGS: Compared with chest CT 01/24/2018 Small filling defects are noted in the subsegmental branches of the bilateral pulmonary arteries which are similar to the prior exam and compatible with the sequela from prior PE. However, new small filling defects are also noted within the segmental and subsegmental pulmonary arteries which are compatible with acute PE. The heart size is normal. No evidence of a pericardial effusion. The esophagus is decompressed. No evidence of pathologic lymphadenopathy.A right- sided Port-A-Cath is again noted with the tip at the junction of the superior vena cava and right atrium. No evidence of a discrete endobronchial lesion or significant endoluminal debris. Mild atelectasis is noted bilaterally. No definite evidence of a discrete pulmonary infarct, pneumonia, pleural effusion, pneumothorax or pneumomediastinum. No evidence of an acute thoracic osseous abnormality. A small stable 7 mm focus of increased attenuation is again noted involving the upper pole the left kidney. Colonic diverticulosis is noted without evidence of diverticulitis. No definite evidence of an acute process involving the visualized upper abdomen.. IMPRESSION: Acute superimposed on chronic PE. Results discussed with Dr. Flores. Signed: Eron Chauhan [facility] Verified Date/Time: 04/17/2018 23:21:52 Reading Location: [address] Reading Room Electronically signed by: ERON CHAUHAN M.D. on 05/2018 11:21 PMCREATINE KINASE (CK), TOTAL AND [id number] 22:25:00 Test Item Value Reference Range Comments CREATINE KINASE TOTAL (BEAKER) (test ueou=037) 87 U/L 40-250 CREATINE KINASE-MB (BEAKER) (test mohw=201) 1.1 ng/mL 0.0-4.9 CREATINE KINASE-MB INDEX (BEAKER) (test muoc=491) 1.3 % CK-MB Reference Range:<5 Normal5-10 Borderline>10 AbnormalTSH/FREE T4 IF [id number] 22:07:00 Test Item Value Reference Range Comments THYROID STIMULATING HORMONE (BEAKER) (test 0.71 uIU/mL 0.35-5.50 rrfx=644) B-TYPE NATRIURETIC FACTOR (BNP)2018-04-17 21:44:00 Test Item Value Reference Range Comments B-TYPE NATRIURETIC PEPTIDE (BEAKER) (test zobx=673) 8 pg/mL 0-100 TROPONIN [id number] 21:43:00 Test Item Value Reference Range Comments TROPONIN I (BEAKER) (test xsta=707) < ng/mL 0.00-0.15 Troponin I (TnI) levels [...] acute neurological disease, and persistent tachyarrhythmia.BASIC METABOLIC [id number] 21:39:00 Test Item Value Reference Range Comments SODIUM (BEAKER) (test 140 meq/L 135-148 fdks=905) POTASSIUM (BEAKER) (test 3.6 meq/L 3.6-5.5 goqk=968) CHLORIDE (BEAKER) (test 106 meq/L 98-106 aaqz=871) CO2 (BEAKER) (test 21 meq/L 20-29 rghc=100) BLOOD UREA NITROGEN 7 mg/dL 10-26 (BEAKER) (test sgua=094) CREATININE (BEAKER) (test 1.00 mg/dL 0.50-1.20 onze=819) GLUCOSE RANDOM (BEAKER) 140 mg/dL 70-110 (test qvgd=715) CALCIUM (BEAKER) (test 9.1 mg/dL 8.5-10.5 zfmd=007) EGFR (BEAKER) (test 80 mL/min/1.73 sq m ESTIMATED GFR IS NOT wkth=8368) ACCURATE CREATININE CLEARANCE IN PREDICTING GLOMERULAR FILTRATION RATE. ESTIMATED GFR IS NOT APPLICABLE FOR DIALYSIS PATIENTS. PROTHROMBIN [id number] 21:28:00 Test Item Value Reference Range Comments PROTIME (BEAKER) (test flft=653) 10.1 sec 9.3-12.0 INR (BEAKER) (test qght=061) 0.9 <=5.9 RECOMMENDED COUMADIN/WARFARIN INR THERAPY RANGESSTANDARD DOSE: 2.0 - 3.0 Includes: PROPHYLAXIS forvenous thrombosis, systemic embolization; TREATMENT for venous thrombosis and/or pulmonary embolus.HIGH RISK: Target INR is 2.5-3.5 for patients with mechanical heart valves.Final Information (Auto Output)Final Information (Auto Output)CBC W/PLT COUNT & AUTO [id number] 21:25 :00 Test Item Value Reference Range Comments WHITE BLOOD CELL COUNT (BEAKER) (test cbit=465) 5.7 K/ L 4.0-10.0 RED BLOOD CELL COUNT (BEAKER) (test blfr=435) 3.76 M/ L 4.20-5.80 HEMOGLOBIN (BEAKER) (test ulkq=177) 7.9 GM/DL 13.0-16.8 HEMATOCRIT (BEAKER) (test qfxn=971) 25.9 % 40.0-50.0 MEAN CORPUSCULAR VOLUME (BEAKER) (test vjlm=900) 69.0 fL 82.0-98.0 MEAN CORPUSCULAR HEMOGLOBIN (BEAKER) (test 21.0 pg 27.0-33.0 enuz=913) MEAN CORPUSCULAR HEMOGLOBIN CONC (BEAKER) (test 30.4 GM/DL 32.0-36.0 irgy=326) RED CELL DISTRIBUTION WIDTH (BEAKER) (test 20.9 % 10.3-14.2 jazr=210) PLATELET COUNT (BEAKER) (test zqbc=471) 411 K/CU MM 150-430 MEAN PLATELET VOLUME (BEAKER) (test vpku=235) 6.9 fL 6.5-10.5 NUCLEATED RED BLOOD CELLS (BEAKER) (test 0 /100 WBC 0-0 bbyp=509) NEUTROPHILS RELATIVE PERCENT (BEAKER) (test 49 % hvcq=215) LYMPHOCYTES RELATIVE PERCENT (BEAKER) (test 35 % scaa=652) MONOCYTES RELATIVE PERCENT (BEAKER) (test 12 % wmey=324) EOSINOPHILS RELATIVE PERCENT (BEAKER) (test 4 % itdf=815) BASOPHILS RELATIVE PERCENT (BEAKER) (test 0 % zand=136) NEUTROPHILS ABSOLUTE COUNT (BEAKER) (test 2.80 K/ L 1.80-8.00 drgd=662) LYMPHOCYTES ABSOLUTE COUNT (BEAKER) (test 2.00 K/ L 1.48-4.50 reel=716) MONOCYTES ABSOLUTE COUNT (BEAKER) (test 0.70 K/ L 0.00-1.30 vzvj=127) EOSINOPHILS ABSOLUTE COUNT (BEAKER) (test 0.20 K/ L 0.00-0.50 sivd=228) BASOPHILS ABSOLUTE COUNT (BEAKER) (test 0.00 K/ L 0.00-0.20 wnfv=442) ERYTHROCYTE SED [id number] 22:37:00 Test Item Value Reference Range Comments Sed Rate (test code=ESR) 41 mm/hr 0-20 EFFECTIVE 01-09-2014, THE METHODOLOGY USED FOR ERYTHROCYTE SEDIMENTATION RATE HAS CHANGED. THE NORMAL RANGES HAVE CHANGED. PLEASE NOTE THAT RANGES ARE DEFINED BY THE AGE OF THE PATIENT. NEW REFERENCE RANGES: Females 0-49 years old=0-25 mm/hr Females 50-999 years old=0-35 mm/hr Males 0-49 years old=0-20 mm/hr Males 50-999 years old=0-25 mm/hr [id number] 22:06:00 Test Item Value Reference Range Comments Glucose (test code=GLU) 130 mg/dl 75-110 BUN (test code=BUN) 13.0 mg/dl 6.0-17.0 Creatinine (test 0.9 mg/dl 0.4-1.2 code=CREA) Sodium (test code=NA) 142 mmol/l 137-145 Potassium (test code=K) 3.8 mmol/l 3.5-5.0 Chloride (test code=CL) 107 mmol/l 98-107 CO2 (test code=CO2) 25 mmol/l 22-30 Calcium (test code=CALC) 8.9 mg/dl 8.4-10.2 T Protein (test code=TP) 7.5 gm/dl 5.1-8.7 Albumin (test code=ALB) 4.4 gm/dl 3.5-4.6 A/G Ratio (test 1.4 % 1.1-2.2 code=AGRAT) AST (SGOT) (test 43 U/L 11-36 code=AST) ALT (SGPT) (test 21 U/L 11-40 code=ALT) Alkaline Phos (test 76 U/L 47-114 code=ALKP) Total Bilirubin (test 0.3 mg/dl 0.2-1.2 code=TBIL) Globulin (test 3.1 gm/dl 2.3-3.5 code=GLOBU) Calcium, Corrected (test 8.6 mg/dl 8.4-10.2 Various formulas exist for code=CALCCORR) corrected serum calcium results, each yielding different values. This corrected result was based on the formula: Corrected Calcium=SerumCalcium + [0.8 * ( 4 - SerumAlbumin)] EGFR if >60 (test code=EGFRAA) mL/min/1.73m\\S\\2 EGFR if Non- >60 Estimated Glomerular [place] (test mL/min/1.73m\\S\\2 Filtration Rate (eGFR) code=EGFRNA) Reference Intervals Decision Points for 18 years and older and average body mass: >=60 Does not exclude kidney disease. 30 - 59 Suggests moderate chronic kidney disease and indicates the need for further investigation including assessment of proteinuria and cardiovascular factors. < 30 Usually indicates a need for referral for assessment and management of chronic kidney failure. XR CHEST AP/PA 1 [id number] 22:01:15Procedure: AP View ChestOrder date: 2017 9:16 PMOrdering Provider: ILIANA Robetrsoninical Indication: chest pain, Chest painComparison: January 29, 2018Findings:Stable right-sided Port-A- Cath.Cardiomediastinal silhouette is within normal limits.The lungs are clear. No large pleural effusions or pneumothorax. Osseousstructures are nonacute.No evidence of active tuberculosis.Impression:No acute cardiopulmonary process.This final report was electronically signed by Dr Cesar Beach MD 04/159:54 PMDictated By: CESAR BEACHDate: 04/15/2018 22:01D-DIMER [id number] 21:53:00 Test Item Value Reference Range Comments D DIMER (test code=D 1.56 mg/L FEU 0.19-0.50 METHOD CHANGE: 11/16/2012 Due to DIM) the discontinued mehodology currently in use, a change in the testing method is necessary. The Reference Ranges will change dramatically, and results are obtained by the observance of clotting activation mesured on the [employer] instruments. This same methodology is currently in use for PT/INR , PTT, AND HEPARIN testing in our Labs. The D-Dimer assay is an aid in the evaluation of thromboembolic events, as in DIC, DVT, Pulmonary Embolism, and other thromboembolic diseases, and should not be used without other diagnostic measures, to properly diagnose and treat thromboembolic disease. REFERENCE RANGE: 0.19 - 0.50 mg/L FEU (Fibrinogen Equivalent Units) Cut-Off Value is: > .50 mg/L FEU Note: Results greater than (>) the Cut-Off are to be considered POSITIVE, and significant in the evaluation of thromboembolic diseases. Results less than (<) the Cut-Off are to be considered NEGATIVE, and a low probability of thromboembolic disease. CBC WITH AUTO [id number] 21:43:00 Test Item Value Reference Range Comments WBC (test code=WBC) 5.72 10\\S\\3/ul 4.80-10.80 RBC (test code=RBC) 3.71 10\\S\\6/ul 4.70-6.10 Hemoglobin (test code=HGB) 8.0 gm/dl 14.0-18.0 Hematocrit (test code=HCT) 26.7 % 42.0-50.0 MCV (test code=MCV) 72.0 fL 80.0-94.0 MCH (test code=MCH) 20.5 pg 27.0-31.0 MCHC (test code=MCHC) 28.5 gm/dl 33.0-37.0 RDW (test code=RDWVC) 19.1 % 11.5-14.5 Platelet (test code=PLT) 369 10\\S\\3/ul 130-400 MPV (test code=MPV) 8.9 fL 7.4-10.4 "NOT MEASURED" RESULTS ARE DISPLAYED WHEN THE INSTRUMENT HAS A SUPPRESSED OR UNREPORTABLE RESULT. THIS WILL MOST OFTEN HAPPEN WITH THE MPV WHEN THERE IS AN ABNORMAL PLATELET DISTRIBUTION DUE TO A CRITICAL LOW VALUE OR PLATELET CLUMPING. THE RDW MAY BE SUPPRESSED IF THERE ARE MULTIPLE PEAKS PRESENT ON THE RBC HISTOGRAM. IN THIS CASE, A MANUAL REVIEW OF THE SLIDE WILL BE PERFORMED, AND RBC MORPHOLOGY WILL BE NOTED ON THE REPORT. NE% (test code=NE) 42.7 % 42.0-75.0 LY% (test code=LY) 40.2 % 13.0-42.0 MO% (test code=MO) 14.7 % 4.0-14.0 EO% (test code=EO) 1.9 % 1.0-3.0 BA% (test code=BA) 0.3 % 1.0-3.0 IG% (test code=IG%) 0.2 % 0.0-0.4 AUTO DIFFCBC W/PLT COUNT & AUTO [id number] 08:53:00 Test Item Value Reference Range Comments WHITE BLOOD CELL COUNT (BEAKER) (test swec=064) 6.9 K/ L 4.0-10.0 RED BLOOD CELL COUNT (BEAKER) (test uapb=884) 3.56 M/ L 4.20-5.80 HEMOGLOBIN (BEAKER) (test eytz=741) 8.5 GM/DL 13.0-16.8 HEMATOCRIT (BEAKER) (test hsbn=829) 26.5 % 40.0-50.0 MEAN CORPUSCULAR VOLUME (BEAKER) (test rswd=116) 74.5 fL 82.0-98.0 MEAN CORPUSCULAR HEMOGLOBIN (BEAKER) (test 23.8 pg 27.0-33.0 oznc=659) MEAN CORPUSCULAR HEMOGLOBIN CONC (BEAKER) (test 31.9 GM/DL 32.0-36.0 yowb=360) RED CELL DISTRIBUTION WIDTH (BEAKER) (test 20.1 % 10.3-14.2 zaxg=904) PLATELET COUNT (BEAKER) (test orbp=347) 372 K/CU MM 150-430 MEAN PLATELET VOLUME (BEAKER) (test lncs=586) 6.8 fL 6.5-10.5 NUCLEATED RED BLOOD CELLS (BEAKER) (test 0 /100 WBC 0-0 trsn=197) NEUTROPHILS RELATIVE PERCENT (BEAKER) (test 55 % swii=845) LYMPHOCYTES RELATIVE PERCENT (BEAKER) (test 30 % vtsj=231) MONOCYTES RELATIVE PERCENT (BEAKER) (test 13 % fkbb=010) EOSINOPHILS RELATIVE PERCENT (BEAKER) (test 2 % zjbw=199) BASOPHILS RELATIVE PERCENT (BEAKER) (test 0 % asis=349) NEUTROPHILS ABSOLUTE COUNT (BEAKER) (test 3.80 K/ L 1.80-8.00 hzvm=382) LYMPHOCYTES ABSOLUTE COUNT (BEAKER) (test 2.10 K/ L 1.48-4.50 bbtn=429) MONOCYTES ABSOLUTE COUNT (BEAKER) (test 0.90 K/ L 0.00-1.30 fevj=176) EOSINOPHILS ABSOLUTE COUNT (BEAKER) (test 0.10 K/ L 0.00-0.50 jxra=252) BASOPHILS ABSOLUTE COUNT (BEAKER) (test 0.00 K/ L 0.00-0.20 frbl=114) (MANUAL DIFFERENTIAL)2018-02-01 08:53:00 Test Item Value Reference Range Comments TOTAL COUNTED (BEAKER) (test xoxc=3980) WBC MORPHOLOGY (BEAKER) (test onlo=481) Normal PLT MORPHOLOGY (BEAKER) (test dbvc=649) Normal ANISOCYTOSIS (BEAKER) (test yjwk=675) 2+ moderate HYPOCHROMIA (BEAKER) (test rcgn=550) 3+ many MICROCYTES (BEAKER) (test kgjl=265) 1+ few TROPONIN [id number] 07:05:00 Test Item Value Reference Range Comments TROPONIN I (BEAKER) (test rdkz=458) < ng/mL 0.00-0.15 Troponin I (TnI) levels [...] acute neurological disease, and persistent tachyarrhythmia.BASIC METABOLIC [id number] 06:55:00 Test Item Value Reference Range Comments SODIUM (BEAKER) (test 140 meq/L 135-148 qaqs=836) POTASSIUM (BEAKER) (test 3.8 meq/L 3.6-5.5 vvsh=828) CHLORIDE (BEAKER) (test 107 meq/L 98-106 pkqh=499) CO2 (BEAKER) (test 25 meq/L 20-29 apyd=464) BLOOD UREA NITROGEN 11 mg/dL 10-26 (BEAKER) (test ibdm=570) CREATININE (BEAKER) (test 0.80 mg/dL 0.50-1.20 tltx=544) GLUCOSE RANDOM (BEAKER) 91 mg/dL 70-110 (test pbbp=855) CALCIUM (BEAKER) (test 8.6 mg/dL 8.5-10.5 oyac=889) EGFR (BEAKER) (test 104 mL/min/1.73 sq m ESTIMATED GFR IS NOT ydab=4216) ACCURATE CREATININE CLEARANCE IN PREDICTING GLOMERULAR FILTRATION RATE. ESTIMATED GFR IS NOT APPLICABLE FOR DIALYSIS PATIENTS. [id number] 06:49:00 Test Item Value Reference Range Comments MAGNESIUM (BEAKER) (test dvav=723) 2.4 mg/dL 1.5-3.0 TROPONIN [id number] 00:03:00 Test Item Value Reference Range Comments TROPONIN I (BEAKER) (test utvf=047) < ng/mL 0.00-0.15 Troponin I (TnI) levels [...] failure, acidosis, acute neurological disease, and persistent tachyarrhythmia.B-TYPE NATRIURETIC FACTOR (BNP) 00:02:00 Test Item Value Reference Range Comments B-TYPE NATRIURETIC PEPTIDE (BEAKER) (test xbtt=256) 5 pg/mL 0-100 LIPID [id number] 23:57:00 Test Item Value Reference Range Comments TRIGLYCERIDES (BEAKER) (test cabg=940) 53 mg/dL CHOLESTEROL (BEAKER) (test asuu=107) 183 mg/dL HDL CHOLESTEROL (BEAKER) (test cpqc=785) 62 mg/dL LDL CHOLESTEROL CALCULATED (BEAKER) (test 110 mg/dL bbyf=177) Triglyceride Reference Range: Low Risk <150 Borderline 150- 199 High Risk 200-499 Very High Risk >=500Cholesterol Reference Range: Low Risk <200 Borderline 200-239 High Risk > 240HDL Cholesterol Reference Range: Low Risk >=60 High Risk <40LDL Cholesterol Reference Range: Optimal <100 Near Optimal 100-129 Borderline 130-159 High 160-189 Very High >=190ED2 CT ANGIO CHEST W [id number] 11:04:2220 g Cathlon Above the Antecubital or higher requiredProcedure: ED2 CT ANGIO CHEST W CONTRASTOrder date: 01/29/2018 9:32 AMOrdering Provider: ITALIA CLEMONSClinical Indication: chest pain, tachycardiaComparison: NoneTechnique: Using [...] control, adjustment of the mA and/orkV according topatient size and/or use of iterative reconstruction techniques.FINDINGS:Right-sided [...] Negative contrast enhanced CT scan of the chest.No evidence of acutepulmonary embolus.This final report was electronically signed by Dr Cesar Beach MD 01/29/201810:58 AMDictated By: CESAR BEACHDate: 01/29/2018 11:04ED2 TROPONIN-I [id number] 10:56:00 Test Item Value Reference Range Comments Troponin-I (test 0.000 ng/ml 0.000-0.034 The 99th Percentile URL is 0.034 code=TROP) ng/mL. The Joint Society of Cardiology/[place] College [employer] (ESC/ACC) and the National [...] 24 hours after the clinical event. ED2 [id number] 10:51:00 Test Item Value Reference Range Comments [...] Protein (test code=TP) 6.9 gm/dl 6.4-8.1 ED2 [id number] 10:51:00 Test Item Value Reference Range Comments Pro-BNP(B-Peptide) (test <15 0-125 THE METHODOLOGY FOR DETECTION OF code=PROBNP) B-NATRIURETIC PEPTIDE HAS BEEN CHANGED TO "NT pro-BNP". THE NORMAL RANGES HAVE CHANGED. PLEASE NOTE THAT RANGES ARE DEFINED BY THE AGE OF THE PATIENT. (<75 years old=0-125 pg/ml 75years and older=0-450pg/ml). VALUES ARE NOT INTERCHANGEABLE BETWEEN METHODS. 10-18-2006 ED2 [id number] 10:50:00 Test Item Value Reference Range Comments [...] fL 8.0-11.0 ED2 XR CHEST 2 PA [id number] 09:49:15Procedure: ED2 XR CHEST 2 PA LATERALOrder date: 01/29/2018 9:18 AMOrdering Provider: ITALIA RITTERMONSClinical Indication: CHEST PAIN: Pain-ChestComparison: November 14, 2017Findings:Stable tdxrq-alhjlZvab-L-Cath.Cardiomediastinal silhouette is within normal limits.The lungs are clear.No pleural effusion or pneumothorax. Osseous structures are nonacute.No evidence of active tuberculosis.Impression:Stable and nonacute two- view chest.This final report was electronically signed by Dr Cesar Beach MD 9:43 AMDictated By: CESAR BEACHDate: 01/29/2018 09:49CT, CHEST WITH IV CONTRAST- PE TEST [id number] 20:29:00FINAL REPORT HISTORY: chest pain COMPARISON : [...] MDReport Verified Date/Time: 01/24/2018 20:29:12 Reading Location: [address] Consult Reading Room 08: [facility] [id number] 17:45:00 Test Item Value Reference Range Comments SODIUM (BEAKER) (test 138 meq/L 135-148 qktq=130) POTASSIUM (BEAKER) (test 3.7 meq/L 3.6-5.5 sxjs=831) CHLORIDE (BEAKER) (test 104 meq/L 98-106 slnn=487) CO2 (BEAKER) (test 24 meq/L 20-29 zdep=502) BLOOD UREA NITROGEN 18 mg/dL 10-26 (BEAKER) (test rnyg=940) CREATININE (BEAKER) (test 0.90 mg/dL 0.50-1.20 sevi=467) GLUCOSE RANDOM (BEAKER) 119 mg/dL 70-110 (test mqjm=687) CALCIUM (BEAKER) (test 8.5 mg/dL 8.5-10.5 hawr=184) EGFR (BEAKER) (test 90 mL/min/1.73 sq m ESTIMATED GFR IS NOT hoch=8717) ACCURATE CREATININE CLEARANCE IN PREDICTING GLOMERULAR FILTRATION RATE. ESTIMATED GFR IS NOT APPLICABLE FOR DIALYSIS PATIENTS. TROPONIN [id number] 13:54:00 Test Item Value Reference Range Comments TROPONIN I (BEAKER) (test phcr=320) < ng/mL 0.00-0.15 Troponin I (TnI) levels [...] and persistent tachyarrhythmia.CREATINE KINASE (CK), TOTAL AND [id number] 13:53:00 Test Item Value Reference Range Comments CREATINE KINASE TOTAL (BEAKER) (test pwkz=591) 53 U/L 40-250 CREATINE KINASE-MB (BEAKER) (test bblx=841) 0.7 ng/mL 0.0-4.9 CREATINE KINASE-MB INDEX (BEAKER) (test gfqb=724) 1.3 % CK-MB Reference Range:<5 Normal5-10 Borderline>10 [...] CHEST WITH CONTRAST, PE PROTOCOL: Location code: [id number] HISTORY: [id number]: Chest pain, shortness of breathCOMPARISON: 10/14/16, 03/03/16, [...] 1.2 ng/mL <=4.2 COMPREHENSIVE METABOLIC KANG *GP* [id number] 14:23:00 Test Item Value Reference Range Comments [...] VIEW*GP*2017-12-16 14:20:51Portable AP chest, 1 viewLocation Code: [id number] HISTORY: [id number]: Chest painCOMPARISON: 12/22/16COMMENT: The lungs are clear and well inflated. The costophrenic angles are sharp. Thecardiomediastinal silhouette is unremarkable. The bones are intact. Right mwscpWruo-T-Qlrv tip overlies the superiorvena cava, unchanged.IMPRESSION: Stable [...] (test code=GMID%) 5.8 % 0.0-10.0 ED2 TROPONIN-I [id number] 14:21:00 Test Item Value Reference Range Comments Troponin-I (test 0.000 ng/ml 0.000-0.034 The 99th Percentile URL is 0.034 code=TROP) ng/mL. The Joint Society of Cardiology/[place] [employer] (ESC/ACC) and the National [...] clinical event. ED2 XR CHEST 2 PA [id number] 12:47:27Procedures: ED2 XR CHEST 2 PA LATERALExam [...] FRYEDate: 11/14/2017 12:47ED2 CT ANGIO CHEST W [id number] 12:46:17Procedures: ED2 CT ANGIO CHEST W CONTRASTExam Date: 11/14/2017 11:45 AMOrdering Physician: JULIET Haque Indication: rule out peComparison: Chest CT, 06/23/14; [...] PMDictated By: CATHLEEN FRYEDate: 11/14/2017 12:46ED2 TROPONIN-I [id number] 11:38:00 Test Item Value Reference Range Comments Troponin-I (test 0.000 ng/ml 0.000-0.034 The 99th Percentile URL is 0.034 code=TROP) ng/mL. The Joint Society of Cardiology/[place] [employer] (ESC/ACC) and the National [...] 24 hours after the clinical event. ED2 [id number] 11:38:00 Test Item Value Reference Range Comments Pro-BNP(B-Peptide) (test <15 0-125 THE METHODOLOGY FOR DETECTION OF code=PROBNP) B-NATRIURETIC PEPTIDE HAS BEEN CHANGED TO "NT pro-BNP". THE NORMAL RANGES HAVE CHANGED. PLEASE NOTE THAT RANGES ARE DEFINED BY THE AGE OF THE PATIENT. (<75 years old=0-125 pg/ml 75years and older=0-450pg/ml). VALUES ARE NOT INTERCHANGEABLE BETWEEN METHODS. 10-18-2006 ED2 [id number] 11:31:00 Test Item Value Reference Range Comments Sodium (test code=NA) 142 mmol/l 128-145 Potassium (test code=K) 3.5 mmol/l 3.6-5.1 CO2 (test code=CO2) 24 mmol/l 18-33 Chloride (test code=CL) 105 mmol/l 98-108 Glucose (test code=GLU) 196 mg/dl 73-118 Calcium (test code=CALC) 8.3 mg/dl 8.0-10.3 BUN (test code=BUN) 10 mg/dl 7-22 Creatinine (test code=CREA) 0.9 mg/dl 0.6-1.2 ED2 [id number] 11:21:00 Test Item Value Reference Range Comments [...] MPV (test code=MPV) 7.3 fL 8.0-11.0 TROPONIN [id number] 07:00:00 Test Item Value Reference Range Comments TROPONIN I (NIMO) (test gmoz=636) < ng/mL 0.00-0.15 Troponin I (TnI) levels [...] acidosis, acute neurological disease, and persistent tachyarrhythmia.TROPONIN [id number] 00:40:00 Test Item Value Reference Range Comments TROPONIN I (NIMO) (test ajym=317) < ng/mL 0.00-0.15 Troponin I (TnI) levels [...] acidosis, acute neurological disease, and persistent tachyarrhythmia.HEMOGLOBIN [id number] 19:40:00 Test Item Value Reference Range Comments HEMOGLOBIN A1C (NIMO) (test ynjw=089) 5.3 % 4.3-6.1 TROPONIN [id number] 18:43:00 Test Item Value Reference Range Comments TROPONIN I (NIMO) (test rdfm=428) < ng/mL 0.00-0.15 Troponin I (TnI) levels [...] acute neurological disease, and persistent tachyarrhythmia.BASIC METABOLIC [id number] 18:24:00 Test Item Value Reference Range Comments SODIUM (BEAKER) (test 139 meq/L 135-148 rwyi=096) POTASSIUM (BEAKER) (test 3.5 meq/L 3.6-5.5 cgzk=222) CHLORIDE (BEAKER) (test 105 meq/L 98-106 myac=933) CO2 (BEAKER) (test 26 meq/L 20-29 jydy=858) BLOOD UREA NITROGEN 15 mg/dL 10-26 (BEAKER) (test dmbr=360) CREATININE (BEAKER) (test 1.00 mg/dL 0.50-1.20 bztm=921) GLUCOSE RANDOM (BEAKER) 94 mg/dL 70-110 (test oktf=315) CALCIUM (BEAKER) (test 8.6 mg/dL 8.5-10.5 wbnd=876) EGFR (BEAKER) (test 80 mL/min/1.73 sq m ESTIMATED GFR IS NOT vpft=0722) ACCURATE CREATININE CLEARANCE IN PREDICTING GLOMERULAR FILTRATION RATE. ESTIMATED GFR IS NOT APPLICABLE FOR DIALYSIS PATIENTS. CBC W/PLT COUNT & AUTO [id number] 18:01:00 Test Item Value Reference Range Comments WHITE BLOOD CELL COUNT (BEAKER) (test gkeh=147) 8.5 K/ L 4.0-10.0 RED BLOOD CELL COUNT (BEAKER) (test zzih=609) 3.95 M/ L 4.20-5.80 HEMOGLOBIN (BEAKER) (test ngsc=206) 11.4 GM/DL 13.0-16.8 HEMATOCRIT (BEAKER) (test ghob=737) 34.6 % 40.0-50.0 MEAN CORPUSCULAR VOLUME (BEAKER) (test azic=391) 87.4 fL 82.0-98.0 MEAN CORPUSCULAR HEMOGLOBIN (BEAKER) (test 28.9 pg 27.0-33.0 kdxu=962) MEAN CORPUSCULAR HEMOGLOBIN CONC (BEAKER) (test 33.0 GM/DL 32.0-36.0 dnpd=234) RED CELL DISTRIBUTION WIDTH (BEAKER) (test 15.7 % 10.3-14.2 lwad=867) PLATELET COUNT (BEAKER) (test tujp=483) 368 K/CU MM 150-430 MEAN PLATELET VOLUME (BEAKER) (test jjqk=331) 7.1 fL 6.5-10.5 NUCLEATED RED BLOOD CELLS (BEAKER) (test 0 /100 WBC 0-0 gwez=641) NEUTROPHILS RELATIVE PERCENT (BEAKER) (test 50 % lxdf=799) LYMPHOCYTES RELATIVE PERCENT (BEAKER) (test 32 % wozv=045) MONOCYTES RELATIVE PERCENT (BEAKER) (test 15 % vacd=154) EOSINOPHILS RELATIVE PERCENT (BEAKER) (test 2 % czmz=739) BASOPHILS RELATIVE PERCENT (BEAKER) (test 0 % aqep=786) NEUTROPHILS ABSOLUTE COUNT (BEAKER) (test 4.30 K/ L 1.80-8.00 ljfx=167) LYMPHOCYTES ABSOLUTE COUNT (BEAKER) (test 2.70 K/ L 1.48-4.50 hqvp=644) MONOCYTES ABSOLUTE COUNT (BEAKER) (test 1.30 K/ L 0.00-1.30 grgh=660) EOSINOPHILS ABSOLUTE COUNT (BEAKER) (test 0.20 K/ L 0.00-0.50 muab=673) BASOPHILS ABSOLUTE COUNT (BEAKER) (test 0.00 K/ L 0.00-0.20 ecou=970) CREATINE KINASE (CK), TOTAL AND [id number] 12:25:00 Test Item Value Reference Range Comments CREATINE KINASE TOTAL (BEAKER) (test jbps=734) 72 U/L 40-250 CREATINE KINASE-MB (BEAKER) (test rxdz=449) 0.9 ng/mL 0.0-4.9 CREATINE KINASE-MB INDEX (BEAKER) (test eebn=012) 1.3 % CK-MB Reference Range:<5 Normal5-10 Borderline>10 AbnormalTROPONIN [id number] 12:25:00 Test Item Value Reference Range Comments TROPONIN I (BEAKER) (test lcmq=080) < ng/mL 0.00-0.15 Troponin I (TnI) levels [...] Comments NEUTROPHILS - REL (DIFF) (BEAKER) (test gugl=8953) 38 % LYMPHOCYTES - REL (DIFF) (BEAKER) (test jgms=0471) 46 % MONOCYTES - REL (DIFF) (BEAKER) (test rjyq=7656) 11 % EOSINOPHILS - REL (DIFF) (BEAKER) (test ehax=7424) 5 % NEUTROPHILS - ABS (DIFF) (BEAKER) (test vqfc=7299) 2.13 K/ L 1.80-8.00 LYMPHOCYTES - ABS (DIFF) (BEAKER) (test hdie=7230) 2.58 K/ L 1.48-4.50 MONOCYTES - ABS (DIFF) (BEAKER) (test ombm=0602) 0.62 K/ L 0.00-1.30 EOSINOPHILS - ABS (DIFF) (BEAKER) (test lapa=2161) 0.28 K/ L 0.00-0.50 TOTAL COUNTED (BEAKER) (test fcon=2751) 100 WBC MORPHOLOGY (BEAKER) (test szsv=196) Normal PLT MORPHOLOGY (BEAKER) (test oitb=190) Normal RBC MORPHOLOGY (BEAKER) (test tnwr=526) Normal CBC W/PLT COUNT & AUTO [id number] 06:02:00 Test Item Value Reference Range Comments WHITE BLOOD CELL COUNT (BEAKER) (test fogu=085) 5.6 K/ L 4.0-10.0 RED BLOOD CELL COUNT (BEAKER) (test rlaz=213) 3.60 M/ L 4.20-5.80 HEMOGLOBIN (BEAKER) (test wasi=398) 10.6 GM/DL 13.0-16.8 HEMATOCRIT (BEAKER) (test bczo=502) 32.3 % 40.0-50.0 MEAN CORPUSCULAR VOLUME (BEAKER) (test oqdo=632) 89.8 fL 82.0-98.0 MEAN CORPUSCULAR HEMOGLOBIN (BEAKER) (test 29.3 pg 27.0-33.0 asfw=878) MEAN CORPUSCULAR HEMOGLOBIN CONC (BEAKER) (test 32.7 GM/DL 32.0-36.0 lqah=960) RED CELL DISTRIBUTION WIDTH (BEAKER) (test 15.9 % 10.3-14.2 ezfn=352) PLATELET COUNT (BEAKER) (test wgeh=682) 312 K/CU MM 150-430 MEAN PLATELET VOLUME (BEAKER) (test srgj=829) 6.9 fL 6.5-10.5 NUCLEATED RED BLOOD CELLS (BEAKER) (test 0 /100 WBC 0-0 rukh=906) TROPONIN [id number] 05:22:00 Test Item Value Reference Range Comments TROPONIN I (BEAKER) (test lolh=595) < ng/mL 0.00-0.15 Troponin I (TnI) levels [...] and persistent tachyarrhythmia.CREATINE KINASE (CK), TOTAL AND [id number] 05:21:00 Test Item Value Reference Range Comments CREATINE KINASE TOTAL (BEAKER) (test yizb=228) 71 U/L 40-250 CREATINE KINASE-MB (BEAKER) (test wbyn=526) 0.8 ng/mL 0.0-4.9 CREATINE KINASE-MB INDEX (BEAKER) (test ijfb=385) 1.1 % CK-MB Reference Range:<5 Normal5-10 Borderline>10 AbnormalCOMPREHENSIVE METABOLIC [id number] 05:14:00 Test Item Value Reference Range Comments TOTAL PROTEIN (BEAKER) 6.4 gm/dL 6.0-8.5 (test kbzh=965) ALBUMIN (BEAKER) (test 3.7 g/dL 3.5-5.0 ebed=1022) ALKALINE PHOSPHATASE 67 U/L 30-115 (BEAKER) (test xxbk=159) BILIRUBIN TOTAL (BEAKER) 0.3 mg/dL 0.1-1.2 (test tkyx=680) SODIUM (BEAKER) (test 141 meq/L 135-148 dath=752) POTASSIUM (BEAKER) (test 3.7 meq/L 3.6-5.5 epou=085) CHLORIDE (BEAKER) (test 106 meq/L 98-106 ofoo=060) CO2 (BEAKER) (test 26 meq/L 20-29 okzg=055) BLOOD UREA NITROGEN 19 mg/dL 10-26 (BEAKER) (test atxg=630) CREATININE (BEAKER) (test 1.00 mg/dL 0.50-1.20 pjlz=663) GLUCOSE RANDOM (BEAKER) 104 mg/dL 70-110 (test safd=102) CALCIUM (BEAKER) (test 9.0 mg/dL 8.5-10.5 mpgw=234) AST (SGOT) (BEAKER) (test 14 U/L 5-40 umgt=496) ALT (SGPT) (BEAKER) (test 10 U/L 5-50 hluw=854) EGFR (BEAKER) (test 80 mL/min/1.73 sq m ESTIMATED GFR IS NOT rtel=3564) ACCURATE CREATININE CLEARANCE IN PREDICTING GLOMERULAR FILTRATION RATE. ESTIMATED GFR IS NOT APPLICABLE FOR DIALYSIS PATIENTS. LIPID [id number] 05:13:00 Test Item Value Reference Range Comments TRIGLYCERIDES (BEAKER) (test ktqk=104) 159 mg/dL CHOLESTEROL (BEAKER) (test lpye=365) 205 mg/dL HDL CHOLESTEROL (BEAKER) (test klkq=954) 62 mg/dL LDL CHOLESTEROL CALCULATED (BEAKER) (test 111 mg/dL vjpj=213) Triglyceride Reference Range: Low Risk <150 Borderline 150- 199 High Risk 200-499 Very High Risk >=500Cholesterol Reference Range: Low Risk <200 Borderline 200-239 High Risk > 240HDL Cholesterol Reference Range: Low Risk >=60 High Risk <40LDL Cholesterol Reference Range: Optimal <100 Near Optimal 100-129 Borderline 130-159 High 160-189 Very High >=190CREATINE KINASE (CK), TOTAL AND [id number] 23:03:00 Test Item Value Reference Range Comments CREATINE KINASE TOTAL (BEAKER) (test ajco=542) 77 U/L 40-250 CREATINE KINASE-MB (BEAKER) (test vzll=556) 0.9 ng/mL 0.0-4.9 CREATINE KINASE-MB INDEX (BEAKER) (test vnju=595) 1.2 % CK-MB Reference Range:<5 Normal5-10 Borderline>10 AbnormalTROPONIN [id number] 23:03:00 Test Item Value Reference Range Comments TROPONIN I (BEAKER) (test bcoh=569) < ng/mL 0.00-0.15 Troponin I (TnI) levels [...] 1 VIEW PORTABLE 2017-02-21 04:12:23CHEST AP viewLOCATION: [id number] INDICATION: Chest pain COMPARISON: March 14, 2017FINDINGS: [...] <235 ng/mL D-DU* PRO TIME AND PTT 2017-02-21 03:46:00 Test Item Value Reference Range Comments [...] mg/dL 1.8-2.4 CREATINE KINASE (CK), TOTAL AND [id number] 08:12:00 Test Item Value Reference Range Comments CREATINE KINASE TOTAL (BEAKER) (test hxit=426) 91 U/L 40-250 CREATINE KINASE-MB (BEAKER) (test dstu=824) 1.0 ng/mL 0.0-4.9 CREATINE KINASE-MB INDEX (BEAKER) (test lzhq=570) 1.1 % CK-MB Reference Range:<5 Normal5-10 Borderline>10 AbnormalTROPONIN [id number] 08:12:00 Test Item Value Reference Range Comments TROPONIN I (BEAKER) (test hwxz=197) < ng/mL 0.00-0.15 Troponin I (TnI) levels [...] and persistent tachyarrhythmia.CBC W/PLT COUNT & AUTO [id number] 07:57:00 Test Item Value Reference Range Comments WHITE BLOOD CELL COUNT (BEAKER) (test omxg=088) 7.7 K/ L 4.0-10.0 RED BLOOD CELL COUNT (BEAKER) (test mmmd=412) 3.82 M/ L 4.20-5.80 HEMOGLOBIN (BEAKER) (test tevl=484) 9.3 GM/DL 13.0-16.8 HEMATOCRIT (BEAKER) (test exyv=795) 29.3 % 40.0-50.0 MEAN CORPUSCULAR VOLUME (BEAKER) (test pkhv=426) 76.6 fL 82.0-98.0 MEAN CORPUSCULAR HEMOGLOBIN (BEAKER) (test 24.3 pg 27.0-33.0 iajj=558) MEAN CORPUSCULAR HEMOGLOBIN CONC (BEAKER) (test 31.8 GM/DL 32.0-36.0 vkfy=711) RED CELL DISTRIBUTION WIDTH (BEAKER) (test 22.1 % 10.3-14.2 grgf=471) PLATELET COUNT (BEAKER) (test ypip=333) 341 K/CU MM 150-430 MEAN PLATELET VOLUME (BEAKER) (test lnmn=856) 7.2 fL 6.5-10.5 NUCLEATED RED BLOOD CELLS (BEAKER) (test 0 /100 WBC 0-0 uvty=811) NEUTROPHILS RELATIVE PERCENT (BEAKER) (test 50 % mekk=059) LYMPHOCYTES RELATIVE PERCENT (BEAKER) (test 34 % mrcq=090) MONOCYTES RELATIVE PERCENT (BEAKER) (test 14 % qebw=876) EOSINOPHILS RELATIVE PERCENT (BEAKER) (test 1 % hqsf=552) BASOPHILS RELATIVE PERCENT (BEAKER) (test 0 % ntnq=077) NEUTROPHILS ABSOLUTE COUNT (BEAKER) (test 3.90 K/ L 1.80-8.00 izvq=688) LYMPHOCYTES ABSOLUTE COUNT (BEAKER) (test 2.60 K/ L 1.48-4.50 fngh=864) MONOCYTES ABSOLUTE COUNT (BEAKER) (test 1.10 K/ L 0.00-1.30 vqni=560) EOSINOPHILS ABSOLUTE COUNT (BEAKER) (test 0.10 K/ L 0.00-0.50 jhrk=794) BASOPHILS ABSOLUTE COUNT (BEAKER) (test 0.00 K/ L 0.00-0.20 xknu=060) (MANUAL DIFFERENTIAL)2017-02-09 07:57:00 Test Item Value Reference Range Comments TOTAL COUNTED (BEAKER) (test vzow=9722) WBC MORPHOLOGY (BEAKER) (test nisz=684) Normal PLT MORPHOLOGY (BEAKER) (test gdio=001) Normal ANISOCYTOSIS (BEAKER) (test hfzd=410) 1+ few HYPOCHROMIA (BEAKER) (test apbp=220) 2+ moderate CREATINE KINASE (CK), TOTAL AND [id number] 06:53:00 Test Item Value Reference Range Comments CREATINE KINASE TOTAL (BEAKER) (test igzk=560) 116 U/L 40-250 CREATINE KINASE-MB (BEAKER) (test tokq=575) 1.1 ng/mL 0.0-4.9 CREATINE KINASE-MB INDEX (BEAKER) (test trlv=419) 0.9 % CK-MB Reference Range:<5 Normal5-10 Borderline>10 AbnormalTROPONIN [id number] 06:53:00 Test Item Value Reference Range Comments TROPONIN I (BEAKER) (test bywl=029) < ng/mL 0.00-0.15 Troponin I (TnI) levels [...] acute neurological disease, and persistent tachyarrhythmia.BASIC METABOLIC [id number] 06:45:00 Test Item Value Reference Range Comments SODIUM (BEAKER) (test 143 meq/L 135-148 irta=775) POTASSIUM (BEAKER) (test 3.8 meq/L 3.6-5.5 xyfp=867) CHLORIDE (BEAKER) (test 107 meq/L 98-106 qwsm=032) CO2 (BEAKER) (test 26 meq/L 20-29 ndjf=526) BLOOD UREA NITROGEN 15 mg/dL 10-26 (BEAKER) (test cbzl=409) CREATININE (BEAKER) (test 1.00 mg/dL 0.50-1.20 acsl=225) GLUCOSE RANDOM (BEAKER) 106 mg/dL 70-110 (test vfux=342) CALCIUM (BEAKER) (test 8.8 mg/dL 8.5-10.5 xwdz=475) EGFR (BEAKER) (test 80 mL/min/1.73 sq m ESTIMATED GFR IS NOT bixn=2606) ACCURATE CREATININE CLEARANCE IN PREDICTING GLOMERULAR FILTRATION RATE. ESTIMATED GFR IS NOT APPLICABLE FOR DIALYSIS PATIENTS. TROPONIN [id number] 22:50:00 Test Item Value Reference Range Comments TROPONIN I (BEAKER) (test cyhu=718) < ng/mL 0.00-0.15 Troponin I (TnI) levels [...] and persistent tachyarrhythmia.CREATINE KINASE (CK), TOTAL AND [id number] 22:45:00 Test Item Value Reference Range Comments CREATINE KINASE TOTAL (BEAKER) (test kcme=739) 100 U/L 40-250 CREATINE KINASE-MB (BEAKER) (test jzfu=661) 1.0 ng/mL 0.0-4.9 CREATINE KINASE-MB INDEX (BEAKER) (test yaqg=667) 1.0 % CK-MB Reference Range:<5 Normal5-10 Borderline>10 AbnormalPROTHROMBIN TIME/[id number] 22:35:00 Test Item Value Reference Range Comments PROTIME (BEAKER) (test yknt=019) 10.4 seconds 9.3-12.0 INR (BEAKER) (test mrti=779) 1.0 <=5.9 RECOMMENDED COUMADIN/WARFARIN INR THERAPY RANGESSTANDARD DOSE: 2.0 - 3.0 Includes: PROPHYLAXIS forvenous thrombosis, systemic embolization; TREATMENT for venous thrombosis and/or pulmonary embolus.HIGH RISK: Target INR is 2.5-3.5 for patients with mechanical heart valves.[id number] 22:35:00 Test Item Value Reference Range Comments PARTIAL THROMBOPLASTIN TIME (BEAKER) (test 23.1 seconds 23.0-35.0 aqkm=003) TROPONIN [id number] 15:08:00 Test Item Value Reference Range Comments TROPONIN I (BEAKER) (test yaks=116) < ng/mL 0.00-0.15 Troponin I (TnI) levels [...] and persistent tachyarrhythmia.CREATINE KINASE (CK), TOTAL AND [id number] 15:07:00 Test Item Value Reference Range Comments CREATINE KINASE TOTAL (BEAKER) (test bbvs=066) 355 U/L 40-250 CREATINE KINASE-MB (BEAKER) (test uxsi=514) 2.2 ng/mL 0.0-4.9 CREATINE KINASE-MB INDEX (BEAKER) (test tviq=712) 0.6 % CK-MB Reference Range:<5 Normal5-10 Borderline>10 AbnormalCBC W/PLT COUNT & AUTO [id number] 06:58:00 Test Item Value Reference Range Comments WHITE BLOOD CELL COUNT (BEAKER) (test ncbs=778) 6.8 K/ L 4.0-10.0 RED BLOOD CELL COUNT (BEAKER) (test hbqe=808) 3.57 M/ L 4.20-5.80 HEMOGLOBIN (BEAKER) (test yksg=501) 8.6 GM/DL 13.0-16.8 HEMATOCRIT (BEAKER) (test tgfy=525) 28.0 % 40.0-50.0 MEAN CORPUSCULAR VOLUME (BEAKER) (test efma=788) 78.5 fL 82.0-98.0 MEAN CORPUSCULAR HEMOGLOBIN (BEAKER) (test 24.2 pg 27.0-33.0 zsqs=409) MEAN CORPUSCULAR HEMOGLOBIN CONC (BEAKER) (test 30.9 GM/DL 32.0-36.0 ecuq=267) RED CELL DISTRIBUTION WIDTH (BEAKER) (test 22.6 % 10.3-14.2 akad=190) PLATELET COUNT (BEAKER) (test yyls=346) 297 K/CU MM 150-430 MEAN PLATELET VOLUME (BEAKER) (test azjq=974) 7.2 fL 6.5-10.5 NUCLEATED RED BLOOD CELLS (BEAKER) (test 0 /100 WBC 0-0 xuky=015) NEUTROPHILS RELATIVE PERCENT (BEAKER) (test 46 % wrja=843) LYMPHOCYTES RELATIVE PERCENT (BEAKER) (test 38 % wcyh=531) MONOCYTES RELATIVE PERCENT (BEAKER) (test 14 % tznw=641) EOSINOPHILS RELATIVE PERCENT (BEAKER) (test 2 % zoxk=206) BASOPHILS RELATIVE PERCENT (BEAKER) (test 0 % tsnm=422) NEUTROPHILS ABSOLUTE COUNT (BEAKER) (test 3.10 K/ L 1.80-8.00 oumw=044) LYMPHOCYTES ABSOLUTE COUNT (BEAKER) (test 2.60 K/ L 1.48-4.50 uggg=166) MONOCYTES ABSOLUTE COUNT (BEAKER) (test 0.90 K/ L 0.00-1.30 lkid=710) EOSINOPHILS ABSOLUTE COUNT (BEAKER) (test 0.20 K/ L 0.00-0.50 gcgu=564) BASOPHILS ABSOLUTE COUNT (BEAKER) (test 0.00 K/ L 0.00-0.20 hgak=808) (MANUAL DIFFERENTIAL)2017-01-24 06:58:00 Test Item Value Reference Range Comments TOTAL COUNTED (BEAKER) (test kude=3376) WBC MORPHOLOGY (BEAKER) (test tqst=357) Normal PLT MORPHOLOGY (BEAKER) (test wrec=464) Normal ANISOCYTOSIS (BEAKER) (test satg=318) 2+ moderate HYPOCHROMIA (BEAKER) (test tbvy=538) 2+ moderate MICROCYTES (BEAKER) (test sjqz=530) 1+ few TROPONIN [id number] 06:05:00 Test Item Value Reference Range Comments TROPONIN I (BEAKER) (test ylsm=540) < ng/mL 0.00-0.15 Troponin I (TnI) levels [...] and persistent tachyarrhythmia.CREATINE KINASE (CK), TOTAL AND [id number] 06:04:00 Test Item Value Reference Range Comments CREATINE KINASE TOTAL (BEAKER) (test flgj=361) 298 U/L 40-250 CREATINE KINASE-MB (BEAKER) (test xzer=373) 2.1 ng/mL 0.0-4.9 CREATINE KINASE-MB INDEX (BEAKER) (test ermx=879) 0.7 % CK-MB Reference Range:<5 Normal5-10 Borderline>10 AbnormalCOMPREHENSIVE METABOLIC [id number] 06:00:00 Test Item Value Reference Range Comments TOTAL PROTEIN (BEAKER) 6.5 gm/dL 6.0-8.5 (test juxh=583) ALBUMIN (BEAKER) (test 4.0 g/dL 3.5-5.0 cldw=3465) ALKALINE PHOSPHATASE 76 U/L 30-115 (BEAKER) (test njiw=063) BILIRUBIN TOTAL (BEAKER) 0.5 mg/dL 0.1-1.2 (test waht=290) SODIUM (BEAKER) (test 142 meq/L 135-148 yzly=302) POTASSIUM (BEAKER) (test 3.5 meq/L 3.6-5.5 mjdo=011) CHLORIDE (BEAKER) (test 106 meq/L 98-106 ydne=078) CO2 (BEAKER) (test 26 meq/L 20-29 bzta=740) BLOOD UREA NITROGEN 14 mg/dL 10-26 (BEAKER) (test jxzp=055) CREATININE (BEAKER) (test 0.90 mg/dL 0.50-1.20 fatt=936) GLUCOSE RANDOM (BEAKER) 79 mg/dL 70-110 (test jgbl=535) CALCIUM (BEAKER) (test 8.8 mg/dL 8.5-10.5 gnps=927) AST (SGOT) (BEAKER) (test 16 U/L 5-40 suxv=501) ALT (SGPT) (BEAKER) (test 10 U/L 5-50 kngp=922) EGFR (BEAKER) (test 91 mL/min/1.73 sq m ESTIMATED GFR IS NOT ygqr=2791) ACCURATE CREATININE CLEARANCE IN PREDICTING GLOMERULAR FILTRATION RATE. ESTIMATED GFR IS NOT APPLICABLE FOR DIALYSIS PATIENTS. CREATINE KINASE (CK), TOTAL AND [id number] 04:57:00 Test Item Value Reference Range Comments CREATINE KINASE TOTAL (BEAKER) (test rfok=199) 653 U/L 30-300 CREATINE KINASE-MB (BEAKER) (test zilr=555) 0.8 ng/mL 0.0-4.9 CREATINE KINASE-MB INDEX (BEAKER) (test ghyo=113) 0.1 % CK-MB Reference Range:<5 Normal5-10 Borderline>10 AbnormalTROPONIN [id number] 04:56:00 Test Item Value Reference Range Comments TROPONIN I (BEAKER) (test dwnh=729) 0.03 ng/mL 0.00-0.15 Troponin I (TnI) levels [...] acidosis, acute neurological disease, and persistent tachyarrhythmia.LIPID [id number] 04:47:00 Test Item Value Reference Range Comments TRIGLYCERIDES (BEAKER) (test oqdy=925) 79 mg/dL CHOLESTEROL (BEAKER) (test kdnq=323) 206 mg/dL HDL CHOLESTEROL (BEAKER) (test uryz=941) 53 mg/dL LDL CHOLESTEROL CALCULATED (BEAKER) (test 137 mg/dL jhth=737) Triglyceride Reference Range: Low Risk <150 Borderline 150- 199 High Risk 200-499 Very High Risk >=500Cholesterol Reference Range: Low Risk <200 Borderline 200-239 High Risk > 240HDL Cholesterol Reference Range: Low Risk >=60 High Risk <40LDL Cholesterol Reference Range: Optimal <100 Near Optimal 100-129 Borderline 130-159 High 160-189 Very High >=190COMPREHENSIVE METABOLIC [id number] 04:47:00 Test Item Value Reference Range Comments TOTAL PROTEIN (BEAKER) 7.2 gm/dL 6.0-8.5 (test mlqh=515) ALBUMIN (BEAKER) (test 4.1 g/dL 3.5-5.0 ihyg=3684) ALKALINE PHOSPHATASE 78 U/L 30-115 (BEAKER) (test ebuu=835) BILIRUBIN TOTAL (BEAKER) 0.5 mg/dL 0.1-1.3 (test wclz=070) SODIUM (BEAKER) (test 141 meq/L 135-148 ffva=191) POTASSIUM (BEAKER) (test 3.9 meq/L 3.5-5.5 lbuh=438) CHLORIDE (BEAKER) (test 109 meq/L 98-106 llzj=945) CO2 (BEAKER) (test 23 meq/L 20-31 qfvd=852) BLOOD UREA NITROGEN 9 mg/dL 10-26 (BEAKER) (test rszr=946) CREATININE (BEAKER) (test 0.95 mg/dL 0.50-1.20 evvn=583) GLUCOSE RANDOM (BEAKER) 83 mg/dL 70-110 (test cvof=661) CALCIUM (BEAKER) (test 8.8 mg/dL 8.5-10.5 iell=808) AST (SGOT) (BEAKER) (test 28 U/L 5-40 jpyp=804) ALT (SGPT) (BEAKER) (test 27 U/L 6-50 nuxn=633) EGFR (BEAKER) (test 86 mL/min/1.73 sq m ESTIMATED GFR IS NOT fwkp=6864) ACCURATE CREATININE CLEARANCE IN PREDICTING GLOMERULAR FILTRATION RATE. ESTIMATED GFR IS NOT APPLICABLE FOR DIALYSIS PATIENTS. CBC W/PLT COUNT & AUTO [id number] 04:19:00 Test Item Value Reference Range Comments WHITE BLOOD CELL COUNT (BEAKER) (test xqbp=644) 6.6 K/ L 4.0-10.0 RED BLOOD CELL COUNT (BEAKER) (test qhwd=667) 3.66 M/ L 4.20-5.80 HEMOGLOBIN (BEAKER) (test llpg=848) 8.5 GM/DL 13.0-16.8 HEMATOCRIT (BEAKER) (test lfjr=086) 27.3 % 40.0-50.0 MEAN CORPUSCULAR VOLUME (BEAKER) (test tqrn=485) 74.7 fL 82.0-98.0 MEAN CORPUSCULAR HEMOGLOBIN (BEAKER) (test 23.2 pg 27.0-33.0 aayg=374) MEAN CORPUSCULAR HEMOGLOBIN CONC (BEAKER) (test 31.0 GM/DL 32.0-36.0 ddtm=523) RED CELL DISTRIBUTION WIDTH (BEAKER) (test 19.2 % 12.0-15.0 djgk=732) PLATELET COUNT (BEAKER) (test ralm=201) 348 K/CU MM 150-430 MEAN PLATELET VOLUME (BEAKER) (test lgxs=165) 6.8 fL 6.5-10.5 NUCLEATED RED BLOOD CELLS (BEAKER) (test 0 /100 WBC 0-0 vlnu=460) NEUTROPHILS RELATIVE PERCENT (BEAKER) (test 49 % ntvq=359) LYMPHOCYTES RELATIVE PERCENT (BEAKER) (test 39 % ecfu=449) MONOCYTES RELATIVE PERCENT (BEAKER) (test 9 % sgfz=792) EOSINOPHILS RELATIVE PERCENT (BEAKER) (test 1 % ghte=579) BASOPHILS RELATIVE PERCENT (BEAKER) (test 2 % ezme=376) NEUTROPHILS ABSOLUTE COUNT (BEAKER) (test 3.20 K/ L 1.80-8.00 ckmj=172) LYMPHOCYTES ABSOLUTE COUNT (BEAKER) (test 2.60 K/ L 1.48-4.50 pozj=852) MONOCYTES ABSOLUTE COUNT (BEAKER) (test 0.60 K/ L 0.00-1.30 xevd=207) EOSINOPHILS ABSOLUTE COUNT (BEAKER) (test 0.10 K/ L 0.00-0.50 ldgh=811) BASOPHILS ABSOLUTE COUNT (BEAKER) (test 0.10 K/ L 0.00-0.20 ylja=879) TROPONIN [id number] 13:44:00 Test Item Value Reference Range Comments TROPONIN I (BEAKER) (test plrt=786) < ng/mL 0.00-0.15 Troponin I (TnI) levels [...] and persistent tachyarrhythmia.CREATINE KINASE (CK), TOTAL AND [id number] 13:43:00 Test Item Value Reference Range Comments CREATINE KINASE TOTAL (BEAKER) (test bwmk=203) 61 U/L 40-250 CREATINE KINASE-MB (BEAKER) (test rcjw=181) 1.0 ng/mL 0.0-4.9 CREATINE KINASE-MB INDEX (BEAKER) (test vlvf=375) 1.6 % CK-MB Reference Range:<5 Normal5-10 Borderline>10 AbnormalTROPONIN [id number] 07:21:00 Test Item Value Reference Range Comments TROPONIN I (BEAKER) (test wzqc=444) < ng/mL 0.00-0.15 Troponin I (TnI) levels [...] and persistent tachyarrhythmia.CREATINE KINASE (CK), TOTAL AND [id number] 07:20:00 Test Item Value Reference Range Comments CREATINE KINASE TOTAL (BEAKER) (test wjpr=101) 58 U/L 40-250 CREATINE KINASE-MB (BEAKER) (test uxkl=005) 0.9 ng/mL 0.0-4.9 CREATINE KINASE-MB INDEX (BEAKER) (test athv=068) 1.6 % CK-MB Reference Range:<5 Normal5-10 Borderline>10 AbnormalCBC W/PLT COUNT & AUTO [id number] 22:21:00 Test Item Value Reference Range Comments WHITE BLOOD CELL COUNT (BEAKER) (test mams=279) 7.3 K/ L 4.0-10.0 RED BLOOD CELL COUNT (BEAKER) (test lacs=829) 4.00 M/ L 4.20-5.80 HEMOGLOBIN (BEAKER) (test gike=649) 9.4 GM/DL 13.0-16.8 HEMATOCRIT (BEAKER) (test uawy=712) 30.0 % 40.0-50.0 MEAN CORPUSCULAR VOLUME (BEAKER) (test nywz=912) 74.9 fL 82.0-98.0 MEAN CORPUSCULAR HEMOGLOBIN (BEAKER) (test 23.5 pg 27.0-33.0 eepl=193) MEAN CORPUSCULAR HEMOGLOBIN CONC (BEAKER) (test 31.4 GM/DL 32.0-36.0 vger=198) RED CELL DISTRIBUTION WIDTH (BEAKER) (test 20.1 % 10.3-14.2 ntae=997) PLATELET COUNT (BEAKER) (test iljw=914) 392 K/CU MM 150-430 MEAN PLATELET VOLUME (BEAKER) (test msiu=126) 6.8 fL 6.5-10.5 NUCLEATED RED BLOOD CELLS (BEAKER) (test 0 /100 WBC 0-0 hozf=474) NEUTROPHILS RELATIVE PERCENT (BEAKER) (test 45 % izim=792) LYMPHOCYTES RELATIVE PERCENT (BEAKER) (test 40 % srty=496) MONOCYTES RELATIVE PERCENT (BEAKER) (test 14 % pxwk=399) EOSINOPHILS RELATIVE PERCENT (BEAKER) (test 1 % fzho=108) BASOPHILS RELATIVE PERCENT (BEAKER) (test 0 % izha=988) NEUTROPHILS ABSOLUTE COUNT (BEAKER) (test 3.30 K/ L 1.80-8.00 ikiw=519) LYMPHOCYTES ABSOLUTE COUNT (BEAKER) (test 2.90 K/ L 1.48-4.50 pdhw=709) MONOCYTES ABSOLUTE COUNT (BEAKER) (test 1.00 K/ L 0.00-1.30 outi=813) EOSINOPHILS ABSOLUTE COUNT (BEAKER) (test 0.10 K/ L 0.00-0.50 xjkk=641) BASOPHILS ABSOLUTE COUNT (BEAKER) (test 0.00 K/ L 0.00-0.20 yidh=798) (MANUAL DIFFERENTIAL)[id number] 22:21:00 Test Item Value Reference Range Comments TOTAL COUNTED (BEAKER) (test eeeu=0916) WBC MORPHOLOGY (BEAKER) (test lllo=047) Normal PLT MORPHOLOGY (BEAKER) (test rsnc=061) Normal ANISOCYTOSIS (BEAKER) (test bhzj=672) 2+ moderate HYPOCHROMIA (BEAKER) (test newe=234) 1+ few TROPONIN [id number] 22:13:00 Test Item Value Reference Range Comments TROPONIN I (BEAKER) (test srqz=402) < ng/mL 0.00-0.15 Troponin I (TnI) levels [...] and persistent tachyarrhythmia.CREATINE KINASE (CK), TOTAL AND [id number] 22:12:00 Test Item Value Reference Range Comments CREATINE KINASE TOTAL (BEAKER) (test kthe=167) 68 U/L 40-250 CREATINE KINASE-MB (BEAKER) (test yiwe=092) 1.0 ng/mL 0.0-4.9 CREATINE KINASE-MB INDEX (BEAKER) (test ltyl=638) 1.5 % CK-MB Reference Range:<5 Normal5-10 Borderline>10 AbnormalCOMPREHENSIVE METABOLIC [id number] 22:05:00 Test Item Value Reference Range Comments TOTAL PROTEIN (BEAKER) 8.0 gm/dL 6.0-8.5 (test besk=292) ALBUMIN (BEAKER) (test 4.7 g/dL 3.5-5.0 zypn=0785) ALKALINE PHOSPHATASE 84 U/L 30-115 (BEAKER) (test qmtg=984) BILIRUBIN TOTAL (BEAKER) 0.5 mg/dL 0.1-1.2 (test pbtw=735) SODIUM (BEAKER) (test 139 meq/L 135-148 oyfk=532) POTASSIUM (BEAKER) (test 4.0 meq/L 3.6-5.5 rdri=696) CHLORIDE (BEAKER) (test 103 meq/L 98-106 xvdn=825) CO2 (BEAKER) (test 26 meq/L 20-29 xppv=020) BLOOD UREA NITROGEN 13 mg/dL 10-26 (BEAKER) (test vsix=351) CREATININE (BEAKER) (test 1.00 mg/dL 0.50-1.20 jmef=314) GLUCOSE RANDOM (BEAKER) 118 mg/dL 70-110 (test qsmm=713) CALCIUM (BEAKER) (test 10.1 mg/dL 8.5-10.5 ifzv=396) AST (SGOT) (BEAKER) (test 19 U/L 5-40 ozmz=337) ALT (SGPT) (BEAKER) (test 15 U/L 5-50 smdi=880) EGFR (BEAKER) (test 81 mL/min/1.73 sq m ESTIMATED GFR IS NOT unjv=2769) ACCURATE CREATININE CLEARANCE IN PREDICTING GLOMERULAR FILTRATION RATE. ESTIMATED GFR IS NOT APPLICABLE FOR DIALYSIS PATIENTS. PROTHROMBIN TIME/[id number] 21:58:00 Test Item Value Reference Range Comments PROTIME (BEAKER) (test mktr=443) 10.5 seconds 9.3-12.0 INR (BEAKER) (test iqvz=231) 1.0 <=5.9 RECOMMENDED COUMADIN/WARFARIN INR THERAPY RANGESSTANDARD DOSE: 2.0 - 3.0 Includes: PROPHYLAXIS forvenous thrombosis, systemic embolization; TREATMENT for venous thrombosis and/or pulmonary embolus.HIGH RISK: Target INR is 2.5-3.5 for patients with mechanical heart valves.[id number] 21:58:00 Test Item Value Reference Range Comments PARTIAL THROMBOPLASTIN TIME (BEAKER) (test 32.3 seconds 23.0-35.0 ezco=210)
--- OUTSIDE RECORDS SUMMARY | 2018-08-09 14:06 | XMS REPORT | Continuity of Care Document ---
:1970 Author Organization [facility] Care Team Providers Name Role Phone ILIANA BENITEZ Admitting Physician ILIANA BENITEZ Attending Physician Hospital Admission Diagnosis Code Admission Diagnosis Date [id number] Chest pain Social History Element Code Description Smoking Start Date End Date Description Status Code System Smoking Status [id number] Unknown if ever SNOMED-CT smoked Problems Code Code System Problem Name Start Date End Date Status 93868200 SNOMED-CT Pulmonary embolism 2013 Active 0263684 SNOMED-CT Supraventricular 2011 Active tachycardia 28872040 SNOMED-CT Chest pain u Active LUMBAR SURGERY Unknown Active 57267428 SNOMED-CT Myocardial infarction Unknown Active 962632787 SNOMED-CT Factor V Leiden Unknown Active mutation 38007574 SNOMED-CT Coronary Unknown Active arteriosclerosis 36345876 SNOMED-CT Hyperlipidemia Unknown Active Medications RxNorm Medication Dose Route Instructions Indications Start End Status Date Date 61721011 atorvastatin 40 Oral orally every Active 40 MG Oral milligram day Tablet 056956 clopidogrel 75 75 Oral orally every Active MG Oral Tablet milligram day 747498 fondaparinux 7.5 Subcutaneo subcutaneously Active milligram us every day 454628 Lisinopril 10 10 Oral orally every Active MG Oral Tablet milligram day 4917 Nitroglycerin 0.4 Sublingual sublingually chest pain Active milligram every 5 to 15 minutes as needed. (3 doses) (until response; do not exceed 3 doses per event;) 500528 Acetaminophen 1 tablet Oral orally every 4 pain No 325 MG / to 6 hours as Longer Hydrocodone needed. Active Bitartrate 10 MG Oral Tablet 956663 Labetalol 100 Oral orally every 12 No hydrochloride milligram hours Longer 100 MG Oral Active Tablet 65374 tizanidine 4 Oral orally every muscle spasm No milligram 4-6 h as Longer needed. Active Allergies Code Code Allergy Type Reaction Severity Start End Status System Substance Date Date 13161115 RXNorm Ambien Drug Unknown Active allergy 34764 RXNorm Toradol Drug Unknown Active allergy 7052 RXNorm morphine Drug Unknown Active allergy Results Laboratory Results Order: CBC PLATELET AUTO DIFF LOINC Test Result Flag Range Unit Date 43882-0 5.72 4.80-10.80 10^3/ul 04/15/2018 1Leukocytes^^correc 21:30 neil for nucleated erythrocytes:NCnc:P t:Bld:Qn:Automated count 789-8 3.71 L 4.70-6.10 10^6/ul 04/15/2018 1Erythrocytes:NCnc: 21:30 Pt:Bld:Qn:Automated count 718-7 8 L 14.0-18.0 gm/dl 04/15/2018 1Hemoglobin:MCnc:Pt 21:30 :Bld:Qn 4544-3 26.7 L 42.0-50.0 % 04/15/2018 1Hematocrit:VFr:Pt: 21:30 Bld:Qn:Automated count 787-2 72 L 80.0-94.0 fL 04/15/2018 1Erythrocyte mean 21:30 corpuscular volume:EntVol:Pt:RB C:Qn:Automated count 785-6 20.5 L 27.0-31.0 pg 04/15/2018 1Erythrocyte mean 21:30 corpuscular hemoglobin:EntMass: Pt:RBC:Qn:Automated count 786-4 28.5 L 33.0-37.0 gm/dl 04/15/2018 1Erythrocyte mean 21:30 corpuscular hemoglobin concentration:MCnc: Pt:RBC:Qn:Automated count 788-0 19.1 H 11.5-14.5 % 04/15/2018 1Erythrocyte 21:30 distribution width:Ratio:Pt:RBC: Qn:Automated count 777-3 369 130-400 10^3/ul 04/15/2018 1Platelets:NCnc:Pt: 21:30 Bld:Qn:Automated count 92123-4 1Platelet 8.9 A 7.4-10.4 fL 04/15/2018 mean 21:30 volume:EntVol:Pt:Bl d:Qn:Automated count Note: 'NOT MEASURED' RESULTS ARE DISPLAYED WHEN THE INSTRUMENT HAS [...] MORPHOLOGY WILL BE NOTED ON THE REPORT. 770-8 1Neutrophils/100 42.7 42.0-75.0 % 04/15/2018 leukocytes:NFr:Pt:Bld:Qn:Automated 21:30 count 736-9 1Lymphocytes/100 40.2 13.0-42.0 % 04/15/2018 leukocytes:NFr:Pt:Bld:Qn:Automated 21:30 count 5905-5 1Monocytes/100 14.7 H 4.0-14.0 % 04/15/2018 leukocytes:NFr:Pt:Bld:Qn:Automated 21:30 count 713-8 1Eosinophils/100 1.9 1.0-3.0 % 04/15/2018 leukocytes:NFr:Pt:Bld:Qn:Automated 21:30 count 706-2 1Basophils/100 0.3 L 1.0-3.0 % 04/15/2018 leukocytes:NFr:Pt:Bld:Qn:Automated 21:30 count 1IG% 0.2 0.0-0.4 % 04/15/2018 21:30 Performing Lab Footnotes:[address] [place] [address] - [id number] - [address] [address] [facility] - MD: DIRECTOR HEBER RUBY__ ____ Order: CMP COMPREHENSIVE METABOLIC PANEL LOINC Test Result Flag Range Unit Date 130 H 75-110 mg/dl 04/15/2018 1Glucose 21:30 1BUN 13 6.0-17.0 mg/dl 04/15/2018 21:30 0.9 0.4-1.2 mg/dl 04/15/2018 1Creatinine 21:30 142 137-145 mmol/l 04/15/2018 1Sodium 21:30 3.8 3.5-5.0 mmol/l 04/15/2018 1Potassium 21:30 107 98-107 mmol/l 04/15/2018 1Chloride 21:30 1CO2 25 22-30 mmol/l 04/15/2018 21:30 8.9 8.4-10.2 mg/dl 04/15/2018 1Calcium 21:30 1T 7.5 5.1-8.7 gm/dl 04/15/2018 Protein 21:30 4.4 3.5-4.6 gm/dl 04/15/2018 1Albumin 21:30 1A/G 1.4 1.1-2.2 % 04/15/2018 Ratio 21: 1AST 43 H 11-36 U/L 04/15/2018 (SGOT) 21: 1ALT 21 11-40 U/L 04/15/2018 (SGPT) 21:30 76 47-114 U/L 04/15/2018 1Alkaline Phos 21: 1Total 0.3 0.2-1.2 mg/dl 04/15/2018 Bilirubin 21:30 3.1 2.3-3.5 gm/dl 04/15/2018 1Globulin 21:30 8.6 8.4-10.2 mg/dl 04/15/2018 1Calcium, 21:30 Corrected Note: Various formulas exist for corrected serum calcium results, each yielding different values. This corrected result was based on the formula: Corrected Calcium=SerumCalcium + [0.8 * ( 4 - SerumAlbumin)] 1EGFR >60 mL/min/1.73m^2 04/15/2018 21:30 if 1EGFR >60 mL/min/1.73m^2 04/15/2018 21:30 if Non- Note: Estimated Glomerular Filtration Rate (eGFR) Reference Intervals Decision Points for 18 years and older and average body mass: >=60 Does not exclude kidney disease. 30 - 59 Suggests moderate chronic kidney disease and indicates the need for further investigation including assessment of proteinuria and cardiovascular factors. < 30 Usually indicates a need for referral for assessment and management of chronic kidney failure. Performing Lab Footnotes:[address] [place] [address] - [id number] - [address] [facility] [place] [address] [place] [id number] NOE Lozada MD: DIRECTOR HEBER RUBY__ ____ Order: D DIMER QUANTITATIVE LOINC Test Result Flag Range Unit Date 1D 1.56 H 0.19-0.50 mg/LFEU 04/15/2018 DIMER 21:30 Note: METHOD CHANGE: 11/16/2012 Due to the discontinued mehodology currently in use, a change in the testing method is necessary. The Reference Ranges will change dramatically, and results are obtained by the observance of clotting activation mesured on the Sysm[employer] instruments. This same methodology is currently in [...] and a low probability of thromboembolic disease. Performing Lab Footnotes:[address] [place] [address] - [id number] - [address] [facility] [address] [place] [address] NOE Lozada MD: DIRECTOR HEBER RUBY__ ____ Order: ERYTHROCYTE SED RATE LOINC Test Result Flag Range Unit Date 41 H 0-20 mm/hr 04/15/2018 1Sed Rate 21:30 Note: EFFECTIVE 01-09-2014, THE METHODOLOGY USED FOR ERYTHROCYTE SEDIMENTATION RATE HAS CHANGED. THE NORMAL RANGES HAVE CHANGED. PLEASE NOTE THAT RANGES ARE DEFINED BY THE AGE OF THE PATIENT. NEW REFERENCE RANGES: Females 0-49 years old=0-25 mm/hr Females 50-999 years old=0-35 mm/hr Males 0-49 years old=0-20 mm/hr Males 50-999 years old=0-25 mm/hr Performing Lab Footnotes:[address] [place] [address] [id number] - [address] [address] [facility] - MD: DIRECTOR HEBER RUBY__ ____ Radiology Results Order: [id number] XR CHEST AP/PA 1 VIEWExam Completion Date:04/15/2018 21:16Procedure: AP View Chest Order date: 2017 9:16 PMOrdering Provider: ILIANA Robertsoninical Indication: chest pain, Chest painComparison: January 29, 2018Findings:Stable right-sided Port-A- Cath.Cardiomediastinal silhouette is within normal limits. The lungs are clear. No large pleural effusionsor pneumothorax. Osseousstructures are nonacute.No evidence of active tuberculosis.Impression:No acute cardiopulmonary process.This final report was electronically signed by Dr Cesar Benitez MD 04/159:54 PMDictated By: CESAR BENITEZDate: 04/15/2018 22:01 Vital Signs Vitals Value Date Body Temperature 99.8 F 04/15/2018 Respiratory Rate 18 04/15/2018 O2% BldC Oximetry 100 04/15/2018 BP Systolic 147 mmHg 04/15/2018 BP Diastolic 89 mmHg 04/15/2018 Height 67 in 04/15/2018 Weight Measured 200 lbs 04/15/2018 BSA (Body Surface Area) 2.40309 04/15/2018 BMI (Body Mass Index) 31.3 04/15/2018 Plan of Care No data in the system Procedures Code Code System Procedure Name Target Site Date of Procedure XR CHEST 04/15/2018 22:01 AP/PA 1 VIEW Encounters Date Code Diagnosis Status (ICD10) - R072 PRECORDIAL PAIN Active Immunizations Vaccine Code Code System Vaccine Name Date Status FLU PNEUM Completed Functional Status No data in the system Hospital Discharge Instructions No data in the system
[2018-08-09] MEDS ORDERED: ASPIRIN 81 MG CHEWABLE TABLET ONE (14:23)
[2018-08-09] MEDS ORDERED: HYDROMORPHONE HCL 0.5 MG/0.5 ML INJ ONE ×2 (14:23→15:39)
[2018-08-09 14:34] LABS: Absolute Lymphocytes (CBC) 2.2 K/uL (0.7-4.9); Absolute Monocytes 0.7 K/uL (0.1-1.3); Absolute Neutrophil 2.9 K/uL (1.8-8.0); Basophils % 0.5 % (0-1.3); Eosinophils % 3.3 % (0-4.4); Lymphocytes % 36.1 % (15.3-44.8); MCH 23.8 pg (27.0-35.0); MPV 7.3 fL (7.6-11.3); Monocytes % 11.5 % (3.3-12.3); RBC Red Blood Cell Count 4.34 M/uL (4.33-5.43)
--- NOTE | 2018-08-09 14:38 | RAD REPORT ---
EXAM DESCRIPTION: RAD - Chest Single View - 08/09/2018 2:31 pm CLINICAL HISTORY: CHEST PAIN Chest pain. COMPARISON: Chest Single View dated 01/31/2018; Chest Single View dated 02/19/2017; CHEST SINGLE VIEW dated 08/01/2009; CHEST SINGLE VIEW dated 12/05/2008 FINDINGS: Portable technique limits examination quality. The lungs are grossly clear. The heart is normal in size. No displaced fractures.Right-sided port cat heter its tip in the SVC. IMPRESSION: No acute intrathoracic process suspected.
[2018-08-09 14:41] LABS: Protime INR 1.03
[2018-08-09 14:52] LABS: ALT/SGPT 21 U/L (12-78); AST/SGOT 21 U/L (15-37); Albumin 3.8 g/dL (3.4-5.0); Alkaline Phosphatase 84 U/L (45-117); BUN Blood Urea Nitrogen 11 mg/dL (7-18); Bicarbonate 22 mmol/L (21-32); Bilirubin Direct 0.1 mg/dL (0-0.2); Bilirubin Total 0.3 mg/dL (0.2-1.0); Creatine Phosphokinase 112 U/L (39-308); Glucose Level 195 mg/dL (74-106); Lipase 304 U/L (73-393); NT PRO-BNP 14 pg/mL (<125); Potassium 3.6 mmol/L (3.5-5.1); Protein, Total 7.6 g/dL (6.4-8.2); Sodium Level 139 mmol/L (136-145); Troponin (Emerg Dept Use Only) < 0.02 ng/mL (0.0-0.045)
--- NOTE | 2018-08-09 15:23 | RAD REPORT ---
EXAM DESCRIPTION: CT - Chest For Pe Angio - 08/09/2018 3:14 pm CLINICAL HISTORY: Chest pain. CHEST PAIN COMPARISON: CTANGIO CHEST FOR PE dated 08/01/2009 TECHNIQUE: CT angiogram of the pulmonary arteries was performed with MIP. All CT scans are performed using dose optimization technique as appropriate and may include automated exposure control or mA/KV adjustment according to patient size. FINDINGS: No evidence of pulmonary thromboembolism. No acute aortic finding demonstrated. The lungs are clear. No significant pericardial or pleural fluid. No concerning bony finding. Cholecystectomy clips. IMPRESSION: No evidence of pulmonary thromboembolism. No acute lung findings.
--- NOTE | 2018-08-09 15:39 | EDPHYS ---
Physician Documentation [facility] Name: Christiano Serra Age: 48 yrs Sex: Male : 1970 Arrival Date: 08/09/2018 Time: 13:58 Bed 5 Private MD: out of town, doctor ED Physician Justin Wren HPI: 08/09 14:24 This 48 yrs old Other Male presents to ER via Ambulatory with complaints of Chest Pain. wa 14:24 The patient or guardian reports chest pain that is located primarily in the substernal wa area. Onset: 2 hour(s) ago. The pain does not radiate. Associated signs and symptoms: Pertinent positives: shortness of breath. The chest pain is described as a pressure. Duration: The patient or guardian reports a single episode, that is still ongoing. Modifying factors: The symptoms are alleviated by nothing. the symptoms are aggravated by nothing. Severity of pain: At its worst the pain was a 9 / 10 in the emergency department the pain is a 9 / 10. 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 The patient has not recently seen a physician. states takes blood thinners. took all his meds today prior to arrival. Historical: - Allergies: 14:07 ambien; jl7 14:07 Morphine; jl7 14:07 Toradol; jl7 - PMHx: 14:07 FACTOR V; Hyperlipidemia; Hypertension; Myocardial infarction; jl7 - Immunization history:: Adult Immunizations up to date. - Social history:: Smoking status: Patient/guardian denies using alcohol, street drugs, IV drugs, tobacco products, The patient lives with family. - Ebola Screening: : No symptoms or risks identified at this time. - Family history:: not pertinent. - Hospitalizations: : No recent hospitalization is reported. ROS: 14:28 Constitutional: Negative for fever, chills, and weight loss, Eyes: Negative for injury, wa pain, redness, and discharge, ENT: Negative for injury, pain, and discharge, Neck: Negative for injury, pain, and swelling, Abdomen/GI: Negative for abdominal pain, nausea, vomiting, diarrhea, and constipation, Back: Negative for injury and pain, : Negative for injury, bleeding, discharge, and swelling, MS/Extremity: Negative for injury and deformity, Skin: Negative for injury, rash, and discoloration, Neuro: Negative for headache, weakness, numbness, tingling, and seizure, Psych: Negative for depression, anxiety, suicide ideation, homicidal ideation, and hallucinations. 14:28 Cardiovascular: Positive for chest pain, Negative for edema, orthopnea, palpitations. 14:28 Respiratory: Positive for shortness of breath, at rest. Negative for orthopnea, pleurisy, wheezing. 14:28 All other systems are negative. Exam: 14:29 Constitutional: This is a well developed, well nourished patient who is awake, alert, wa and in no acute distress. Head/Face: Normocephalic, atraumatic. Eyes: Pupils equal round and reactive to light, extra-ocular motions intact. Lids and lashes normal. Conjunctiva and sclera are non-icteric and not injected. Cornea within normal limits. Periorbital areas with no swelling, redness, or edema. ENT: Nares patent. No nasal discharge, no septal abnormalities noted. Tympanic membranes are normal and external auditory canals are clear. Oropharynx with no redness, swelling, or masses, exudates, or evidence of obstruction, uvula midline. Mucous membranes moist. Neck: Trachea midline, no thyromegaly or masses palpated, and no cervical lymphadenopathy. Supple, full range of motion without nuchal rigidity, or vertebral point tenderness. No Meningismus. Chest/axilla: Normal chest wall appearance and motion. Nontender with no deformity. No lesions are appreciated. Respiratory: Lungs have equal breath sounds bilaterally, clear to auscultation and percussion. No rales, rhonchi or wheezes noted. No increased work of breathing, no retractions or nasal flaring. Abdomen/GI: Soft, non-tender, with normal bowel sounds. No distension or tympany. No guarding or rebound. No evidence of tenderness throughout. Back: No spinal tenderness. No costovertebral tenderness. Full range of motion. Skin: Warm, dry with normal turgor. Normal color with no rashes, no lesions, and no evidence of cellulitis. MS/ Extremity: Pulses equal, no cyanosis. Neurovascular intact. Full, normal range of motion. Neuro: Awake and alert, GCS 15, oriented to person, place, time, and situation. Cranial nerves II-XII grossly intact. Motor strength 5/5 in all extremities. Sensory grossly intact. Cerebellar exam normal. Normal gait. Psych: Awake, alert, with orientation to person, place and time. Behavior, mood, and affect are within normal limits. 14:29 Cardiovascular: Rate: tachycardic, Heart sounds: normal, Edema: is not appreciated, JVD: is not appreciated. Vital Signs: 14:02 BP 155 / 105; Pulse 127; Resp 22 S; Temp 98.8(O); Pulse Ox 100% on R/A; Weight 90.72 kg jl7 (R); Height 5 ft. 7 in. (170.18 cm) (R); Pain 8/10; 14:31 BP 154 / 95; Pulse 108; Resp 18; Pulse Ox 100% on 2 lpm NC; Pain 5/10; ss 16:51 BP 147 / 100; Pulse 103; Resp 23; Pulse Ox 100% on R/A; rv 14:02 Body Mass Index 31.32 (90.72 kg, 170.18 cm) jl7 MDM: 14:06 Patient medically screened. wa 14:30 Differential diagnosis: h/o ACS and PE with acute chest pain. will eval and reassess. wa 14:43 Data reviewed: vital signs, nurses notes, EMS record, lab test result(s), EKG. Test nm interpretation: by ED physician or midlevel provider: ECG, HR [address] sinus tach. non-specific ST-T changes. 15:35 Response to treatment: the patient's symptoms have mildly improved after treatment. nm Physician consultation: Jodi Xiong MD was called at 15:36. Admission orders: after a detailed discussion of the patient's condition and case, the admit orders are written by la. Special discussion: work up negative for PE. will admit. pt still with tachycardia. will admit for obs and further cardiac eval due to risk factors of ACS, chest pain with tachycardia. 15:44 Test interpretation: by ED physician or midlevel provider: labs noted for anemia. wa hyperglycemia. 15:45 Test interpretation: by ED physician or midlevel provider: CXR: not acute process. CT nm Chest: no PE. no acute process. 08/09 14:12 Order name: BMP nm 08/09 14:12 Order name: CBC with Diff; Complete Time: 15:32 nm 08/09 14:12 Order name: CPK 08/09 14:12 Order name: Hepatic Function 08/09 14:12 Order name: Lipase 08/09 14:12 Order name: NT PRO-BNP; Complete Time: 15:33 08/09 14:12 Order name: PT-INR; Complete Time: 15:33 08/09 14:12 Order name: Ptt, Activated; Complete Time: 15:33 08/09 14:12 Order name: Troponin (emerg Dept Use Only); Complete Time: 15:33 08/09 14:13 Order name: Urine Drug Screen 08/09 14:13 Order name: Basic Metabolic Panel; Complete Time: 15:33 EDMS 08/09 14:13 Order name: Creatine Phosphokinase; Complete Time: 15:34 EDMS 08/09 14:13 Order name: Liver (Hepatic) Function; Complete Time: 15:33 EDMS 08/09 14:13 Order name: Lipase; Complete Time: 15:32 EDMS 08/09 14:12 Order name: XRAY CXR (1 view); Complete Time: 15:33 08/09 14:12 Order name: CT Chest For PE Angio; Complete Time: 15:33 08/09 14:12 Order name: EKG; Complete Time: 14:13 08/09 14:12 Order name: Cardiac monitoring; Complete Time: 14:08/09 14:12 Order name: EKG - Nurse/Tech; Complete Time: 14:08/09 14:12 Order name: IV Saline Lock; Complete Time: 14:08/09 14:12 Order name: Labs collected and sent; Complete Time: 14:08/09 14:12 Order name: O2 Per Protocol; Complete Time: 14:08/09 14:12 Order name: O2 Sat Monitoring; Complete Time: 14: nm Administered Medications: 14:20 Drug: Dilaudid 0.5 mg Route: IVP; Site: Port-a-cath; ss 15:37 Follow up: Response: No adverse reaction; Pain is decreased ss 14:26 Not Given (Pt reports he has taken a full dose 325 ASA today): Aspirin 81 mg PO once ss 15:37 Drug: Dilaudid 0.5 mg Route: IVP; Site: Port-a-cath; ss 15:44 Follow up: Response: No adverse reaction; Pain is decreased ss 15:44 Drug: Metoprolol TARTRATE (Lopressor) 50 mg Route: PO; ss 16:51 Follow up: Response: No adverse reaction rv 15:46 Not Given (Patient Refused): Zofran 4 mg IVP once; over 2 minutes ss Disposition: 15:38 Critical Care:. nm Disposition: 08/09/18 15:38 Hospitalization ordered by Jodi Xiong for Observation. Preliminary diagnosis are Acute chest pain, acute shortness of breath. - Bed requested for Telemetry/MedSurg (observation). - Status is Observation. rv - Condition is Stable. - Problem is an acute exacerbation. - Symptoms have improved. UTI on Admission? No Critical care time excluding procedures: 15:38 Critical care time: Bedside Care: 15 minutes, Consultation: 5 minutes, Family wa Intervention: 10 minutes. Total time: 30 minutes Signatures: Dispatcher [employer] EDMS Migdalia Blandon Shelby, RN RN Arash Novoa RN RN jl7 Justin Wren MD MD wa Vicente, Ronaldo, RN RN rv Corrections: (The following items were deleted from the chart) 15:51 15:38 Hospitalization Ordered by Jodi Xiong MD for Observation. Preliminary diagnosis bd is Acute chest pain; acute shortness of breath. Bed requested for Telemetry/MedSurg (observation). Status is Observation. Condition is Stable. Problem is an acute exacerbation. Symptoms have improved. UTI on Admission? No. nm 16:50 15:51 08/09/2018 15:38 Hospitalization Ordered by Jodi Xiong MD for Observation. rv Preliminary diagnosis is Acute chest pain; acute shortness of breath. Bed requested for Telemetry/MedSurg (observation). Status is Observation. Condition is Stable. Problem is an acute exacerbation. Symptoms have improved. UTI on Admission? No. bd
--- NOTE | 2018-08-09 15:39 | ER ---
Nurse's Notes [facility] Name: Christiano Serra Age: 48 yrs Sex: Male : 1970 Arrival Date: 08/09/2018 Time: 13:58 Bed 5 Private MD: out of town, doctor Diagnosis: Acute chest pain;acute shortness of breath Presentation: 08/09 14:00 Presenting complaint: Patient states: left sided chest pain started at 1200, radiates jl7 straight thought to left shoulder blade, c/o nausea denies SOB. Transition of care: patient was not received from another setting of care. Onset of symptoms was August 09, 2018 at 12:00. Risk Assessment: Do you want to hurt yourself or someone else? Patient reports no desire to harm self or others. Initial Sepsis Screen: Does the patient meet any 2 criteria? No. Patient's initial sepsis screen is negative. Does the patient have a suspected source of infection? No. Patient's initial sepsis screen is negative. Care prior to arrival: None. 14:00 Method Of Arrival: Ambulatory jl7 14:00 Acuity: RADHA 2 jl7 Historical: - Allergies: 14:07 ambien; jl7 14:07 Morphine; jl7 14:07 Toradol; jl7 - PMHx: 14:07 FACTOR V; Hyperlipidemia; Hypertension; Myocardial infarction; jl7 - Immunization history:: Adult Immunizations up to date. - Social history:: Smoking status: Patient/guardian denies using alcohol, street drugs, IV drugs, tobacco products, The patient lives with family. - Ebola Screening: : No symptoms or risks identified at this time. - Family history:: not pertinent. - Hospitalizations: : No recent hospitalization is reported. Screenin:26 Abuse screen: Denies threats or abuse. Denies injuries from another. Nutritional ss screening: No deficits noted. Tuberculosis screening: Never had TB. Fall Risk None identified. Assessment: 14:10 General: Appears uncomfortable, Behavior is cooperative, Denies fever, feeling ill, ss fatigue, chills. Pain: Complains of pain in chest Pain does not radiate. Pain currently is 8 out of 10 on a pain scale. Quality of pain is described as aching, throbbing, Pain began 1200 today, got worse suddenly Is continuous. Neuro: Level of Consciousness is awake, alert, obeys commands, Oriented to person, place, time, situation, Speech is normal, Facial symmetry appears normal. Cardiovascular: Reports chest pain, Heart tones S1 S2 present Capillary refill < 3 seconds is brisk in bilateral fingers Rhythm is sinus tachycardia. Respiratory: Airway is patent Respiratory effort is even, Respiratory pattern is regular, symmetrical, tachypnea Breath sounds are clear bilaterally. Denies cough, shortness of breath. GI: Patient currently denies abdominal pain, diarrhea, nausea, vomiting. : No signs and/or symptoms were reported regarding the genitourinary system. EENT: Nares are clear Oral mucosa is moist. Throat is clear. Derm: Skin is pink, warm \T\ dry. normal. Musculoskeletal: Circulation, motion, and sensation intact. Range of motion: intact in all extremities, Swelling absent. 14:39 Reassessment: Patient is alert, oriented x 3, equal unlabored respirations, skin ss warm/dry/pink. Patient states feeling better. Patient states symptoms have improved. 14:39 Respiratory: Respiratory effort is even, unlabored, Respiratory pattern is regular, ss symmetrical. 15:45 Reassessment: Patient appears in no apparent distress at this time. Patient and/or ss family updated on plan of care and expected duration. Pain level reassessed. Patient is alert, oriented x 3, equal unlabored respirations, skin warm/dry/pink. aware of admission for further evaluation. Awaiting room assignment at this time. Vital Signs: 14:02 BP 155 / 105; Pulse 127; Resp 22 S; Temp 98.8(O); Pulse Ox 100% on R/A; Weight 90.72 kg [facility] (R); Height 5 ft. 7 in. (170.18 cm) (R); Pain 8/10; 14:31 BP 154 / 95; Pulse 108; Resp 18; Pulse Ox 100% on 2 lpm NC; Pain 5/10; ss 16:51 BP 147 / 100; Pulse 103; Resp 23; Pulse Ox 100% on R/A; rv 14:02 Body Mass Index 31.32 (90.72 kg, 170.18 cm) [facility] ED Course: 13:58 Patient arrived in ED. mr 13:59 out of town, doctor is Private Physician. mr 14:01 Triage completed. [facility] 14:06 Justin Wren MD is Attending Physician. wa 14:07 Arm band placed on right wrist. jl7 14:15 EKG done, by parts identification technician. reviewed by Justin Wren MD. at1 14:25 Bekah Marquez, RN is Primary Nurse. ss 14:26 Patient has correct armband on for positive identification. monitoring and evaluation advisor on. Pulse ss ox on. NIBP on. 14:26 Accessed Port-a-Cath. using ,sterile technique, per hospital protocol. Good blood ss return. Flushes easily. Oxygen administration via nasal cannula \T\ 2L/min. 14:28 X-ray completed. Portable x-ray completed in exam room. jr1 14:30 XRAY CXR (1 view) In Process Unspecified. EDMS 15:14 CT Chest For PE Angio In Process Unspecified. EDMS 15:38 Jodi Xiong MD is Hospitalizing Provider. wa 16:48 No provider procedures requiring assistance completed. Patient admitted, IV remains in rv place. intact. Administered Medications: 14:20 Drug: Dilaudid 0.5 mg Route: IVP; Site: Port-a-cath; ss 15:37 Follow up: Response: No adverse reaction; Pain is decreased ss 14:26 Not Given (Pt reports he has taken a full dose 325 ASA today): Aspirin 81 mg PO once ss 15:37 Drug: Dilaudid 0.5 mg Route: IVP; Site: Port-a-cath; ss 15:44 Follow up: Response: No adverse reaction; Pain is decreased ss 15:44 Drug: Metoprolol TARTRATE (Lopressor) 50 mg Route: PO; ss 16:51 Follow up: Response: No adverse reaction rv 15:46 Not Given (Patient Refused): Zofran 4 mg IVP once; over 2 minutes ss Outcome: 15:38 Decision to Hospitalize by Provider. wa 16:49 Admitted to Tele accompanied by tech, via wheelchair, room 431, with chart, Report rv called to MOUNA WRIGHT 16:49 Condition: good 16:49 Instructed on the need for admit. 16:50 Patient left the ED. rv Signatures: Dispatcher [employer] EDHI Anh Stoddard Jennifer jr1 Bekah Marquez, RN RN ss Homa Mckeon, faculty member EKG Tat1 Arash Novoa RN RN jl7 Justin Wren MD MD wa Vicente, Ronaldo, RN RN rv Corrections: (The following items were deleted from the chart) 14:39 14:10 Respiratory: Airway is patent Respiratory effort is even, unlabored, Respiratory ss pattern is regular, symmetrical, Breath sounds are clear bilaterally. Denies cough, shortness of breath ss
[2018-08-09] MEDS ORDERED: METOPROLOL TAR 50 MG TAB ONE (15:50)
[2018-08-09] MEDS ORDERED: ACETAMINOPHEN 500 MG TAB PO PRN (16:51)
[2018-08-09] MEDS ORDERED: MORPHINE 4 MG/ML SYR IV PRN (16:51)
[2018-08-09 17:23] VITALS: BMI 31.3
[2018-08-09] MEDS ORDERED: NITROGLYCERIN 0.4 MG/TAB SL PRN (17:24)
[2018-08-09] MEDS: HYDROMORPHONE HCL 0.5 MG/0.5 ML INJ IV PRN ×2 (17:42→22:04)
[2018-08-09] MEDS ORDERED: ENOXAPARIN 40 MG/0.4 ML SQ SCH (18:00)
[2018-08-09] MEDS: FONDAPARINUX SOD 7.5 MG/0.6 ML SQ SCH ×2 (21:00→21:16)
[2018-08-09] MEDS: METOPROLOL TAR 25 MG TAB PO SCH (21:00)
[2018-08-09] MEDS ORDERED: ATORVASTATIN 40 MG TAB PO SCH (21:00)
[2018-08-09] MEDS ORDERED: HYDROMORPHONE HCL 1 MG/ML INJ IV ONE (22:15)
[2018-08-09] MEDS ORDERED: NITROGLYCERIN 0.4 MG/TAB SL ONE (22:18)
[2018-08-09] MEDS: HYDROMORPHONE HCL 2 MG/ML inj ONE ×2 (22:25→22:27)
[2018-08-09 23:03] VITALS: O2SAT 98
[2018-08-10] MEDS: HYDROMORPHONE HCL 0.5 MG/0.5 ML INJ IV PRN ×3 (02:03→09:16)
[2018-08-10] MEDS: HYDROCODONE/APAP 10/325 TAB PO PRN ×3 (03:01→10:40)
[2018-08-10 05:45] VITALS: BP 114/63; TEMP 97.9
[2018-08-10 06:20] LABS: Absolute Lymphocytes (CBC) 1.8 K/uL (0.7-4.9); Absolute Monocytes 0.8 K/uL (0.1-1.3); Basophils % 0.4 % (0-1.3); Hematocrit 29.5 % (39.6-49.0); MCH 24.2 pg (27.0-35.0); MCV 76.4 fL (80-100); MPV 7.3 fL (7.6-11.3); Monocytes % 11.4 % (3.3-12.3); RBC Red Blood Cell Count 3.87 M/uL (4.33-5.43)
[2018-08-10 06:35] LABS: Potassium 3.5 mmol/L (3.5-5.1)
[2018-08-10] MEDS: TIZANIDINE 4 MG TABLET PO PRN ×2 (06:51→10:40)
--- NOTE | 2018-08-10 07:52 | EKG ---
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
[2018-08-10] MEDS: METOPROLOL TAR 25 MG TAB PO SCH (09:00)
[2018-08-10] MEDS ORDERED: LISINOPRIL 10 MG TAB PO SCH (09:00)
[2018-08-10] MEDS ORDERED: CLOPIDOGREL 75 MG TABLET PO SCH (09:00)
--- NOTE | 2018-08-10 10:02 | P.HP ---
Certification for Inpatient Patient admitted to: Observation With expected LOS: <2 Midnights Patient will require the following post-hospital care: None Practitioner: I am a practitioner with admitting privileges, knowledge of patient current condition, hospital course, and medical plan of care. Services: Services provided to patient in accordance with Admission requirements found in Title 42 Section 412.3 of the Code of Federal Regulations Patient History Date of Service: 08/09/18 Reason for admission: Chest pain rule out acute coronary syndrome History of Present Illness: Patient is a 48-year-old gentleman who has a history of coronary artery disease status post stent placement. His last intervention was done about a year ago. Since that time he has been following up with Dr. Patel in [place]. He has not had needed any further intervention or any further diagnostic studies. He states his last cardiac catheterization did not reveal any significant plaquing. There are concerned that he may be having spasms. He was started on Imdur. Patient has continued to have pain. Pain was mainly in the sternal region. There was no radiation. He will be admitted to the hospital for further workup. Allergies ketorolac tromethamine [From Toradol] Allergy (Intermediate, Verified 02/19/17 00:21) Hives morphine Allergy (Verified 02/19/17 00:21) Hives zolpidem tartrate [From Ambien] Adverse Reaction (Intermediate, Verified 00:21) sleepwalk Home Medications: Hydrocodone 10/APAP 325 [[place] 10/325*] 1 tab PO Q4HP PRN 07/28/14 Tizanidine [Zanaflex*] 2 tab PO Q4HP PRN 07/29/14 Clopidogrel Bisulfate [Plavix*] 75 mg PO DAILY 02/19/17 Fondaparinux [Arixtra*] 7.5 mg PO BEDTIME 02/19/17 Lisinopril 10 mg PO DAILY 02/19/17 Nebivolol HCl [Bystolic] 20 mg PO DAILY 08/09/18 Atorvastatin Calcium [Lipitor] 80 mg PO BEDTIME #30 tablet 08/10/18 - Past Medical/Surgical History Has patient received pneumonia vaccine in the past: Yes Diabetic: No -: Factor 5 -: CAD -: DVT -: Pericarditits -: SVT -: Back Surgery -: Cholecystectomy -: right chest wall surinder cath - Family History Father Family History: Reviewed- Non-Contributory - Social History Smoking Status: Never smoker Alcohol use: No CD- Drugs: No Caffeine use: No Place of Residence: Home Review of Systems 10-point ROS is otherwise unremarkable Physical Examination - Vital Signs Temperature: 97.9 F Blood Pressure: 114/63 Pulse: 74 Respirations: 20 Pulse Ox (%): 98 - Physical Exam General: Alert, In no apparent distress, Oriented x3 HEENT: Atraumatic, PERRLA, Mucous membr. moist/pink, EOMI, Sclerae nonicteric Neck: Supple, 2+ carotid pulse no bruit, No LAD, Without JVD or thyroid abnormality Respiratory: Clear to auscultation bilaterally, Normal air movement Cardiovascular: Regular rate/rhythm, Normal S1 S2, No murmurs Gastrointestinal: Normal bowel sounds, Soft and benign, Non-distended, No tenderness Musculoskeletal: No clubbing, No swelling, No tenderness Integumentary: No rashes Neurological: Normal gait, Normal speech, Normal strength at 5/5 x4 extr, Normal tone, Sensation intact, Cranial nerves 3-12 intact, Normal affect Lymphatics: No axilla or inguinal lymphadenopathy - Studies Laboratory Data (last 24 hrs) 08/09/18 14:19: PT 12.1, INR 1.03, APTT 26.0 08/09/18 14:19: WBC 6.0, Hgb 10.3 L, Hct 33.0 L, Plt Count 364 08/09/18 14:19: Sodium 139, Potassium 3.6, BUN 11, Creatinine 1.30, Glucose 195 H, Total Bilirubin 0.3, AST 21, ALT 21, Alkaline Phosphatase 84, Lipase 304 Assessment & Plan - Problems (Diagnosis) (1) Chest pain Onset Date: 08/10/18 Current Visit: Yes Status: Acute (2) CAD (coronary artery disease) Onset Date: 02/19/17 Current Visit: No Status: Acute Qualifiers: (3) Factor 5 Leiden mutation, heterozygous Onset Date: 02/19/17 Current Visit: No Status: Acute (4) History of pulmonary embolism Current Visit: No Status: Acute - Plan 1. Serial troponins and EKG 2. Cardiology consultation 3. Echocardiogram and stress test 4. Anti-platelet therapy, anti coagulation, beta-lucinda, statin, and O2 as needed 5. IV morphine for pain 6. Nitro p.r.n. 7. GI/DVT prophylaxis - Advance Directives Does patient have a Living Will: No Does patient have a Durable POA for Healthcare: No - Code Status/Comfort Care Code Status Assessed: Yes Code Status: Full Code Critical Care: No Time Spent Managing PTS Care (In Minutes): 50
[2018-08-10] MEDS ORDERED: HEPARIN 500 UNIT/5 ML SYR IV PRN (10:49)
--- NOTE | 2018-08-10 12:40 | ECHO ---
HEIGHT: 5 ft 7 in WEIGHT: 200 lb 0 oz DATE OF STUDY: 08/10/[address]: Wiliam Rendon MD 2-DIMENSIONAL: YES M.MODE: YES DOPPLER: YES COLOR FLOW: YES TDS: NO PORTABLE: NO DEFINITY: NO BUBBLE STUDY: NO DIAGNOSIS: CHEST PAIN CARDIAC HISTORY: CATHERIZATION: YES SURGERY: NO PROSTHETIC VALVE: NO PACEMAKER: NO MEASUREMENTS (cm) DIASTOLIC (NORMALS) SYSTOLIC (NORMALS) IVSd 0.8 (0.6-1.2) LA Diam 3.6 (1.9-4.0) LVEF 69% LVIDd 4.7 (3.5-5.7) LVIDs 2.5 (2.0-3.5) %FS 47% LVPWd 1.0 (0.6-1.2) Ao Diam 3.1 (2.0-3.7) 2 DIMENSIONAL ASSESSMENT: RIGHT ATRIUM: NORMAL LEFT ATRIUM: NORMAL RIGHT VENTRICLE: NORMAL LEFT VENTRICLE: NORMAL TRICUSPID VALVE: NORMAL MITRAL VALVE: NORMAL PULMONIC VALVE: NORMAL AORTIC VALVE: NORMAL PERICARDIAL EFFUSION: NONE AORTIC ROOT: NORMAL LEFT VENTRICULAR WALL MOTION: NORMAL DOPPLER/COLOR FLOW: NORMAL COMMENTS: NORMAL 2D ECHOCARDIOGRAM WITH DOPPLER. TECHNOLOGIST: Dima MARSHALL
--- NOTE | 2018-08-10 14:35 | CON ---
History Of Present Illness: Mr. Serra came to the hospital with chest pain. He has had 2 stents pu t in his heart and sees Dr. Patel. He has passed a stress test recently, and as of this admission he has had SC ruled out. Seems to be stable. He has Factor V Leiden deficiency and takes subcutaneous Arixtra to prevent recurrent PEs. He has had several pulmonary emboli in the past. He also has hyp ertension. Present Medications: Hydrocodone, tizanidine, clopidogrel, lisinopril, Arixtra, atorvastatin, and ne bivolol. He reports drug intolerance to Ketoralac, morphine, and azulfidine. Social History: He uses no tobacco. Rare alcohol. No illegal drugs. Physical Examination: General: He is 5 feet 7 inches, 200 pounds. Obese, alert, oriented, pleasant. Not in distress. Ap pears to be his stated age or slightly older. Lungs: Clear. Cardiac: Within normal limits. Abdomen: Soft. Extremities: Normal. No cyanosis, clubbing, or edema. No calf tenderness or Homans sign. Distal p ulses are normal. Laboratory Data: His electrocardiogram shows minimal voltage for LVH. Unremarkable EKG. Impression: Mr. Serra is stable enough to be discharged and return to outpatient care under the car e of Dr. Patel. BRYANT/ANNEMARIE Voice ID: [id number] Report ID: [id number]
--- NOTE | 2018-08-11 05:13 | DS ---
Date of Discharge: 08/10/2018 Consultants: Dr. Abreu with Cardiology. Discharge Diagnoses: 1.Unstable angina. 2.Coronary artery disease, pechanga artery, and pechanga heart, status post stent with angina. 3.Factor V Leiden mutation. 4.History of pulmonary embolism. 5.Obesity, BMI 31. 6.History of deep venous thrombosis. 7.Dyslipidemia. Hospital Course: The patient is a 48-year-old male with history of coronary artery disease, status p ost stent placement. The patient usually follows up with Dr. Patel in [place], had a heart cathet erization recently, which did not show any significant plaquing. The patient came in for chest pain symptoms. He was admitted for unstable angina to rule out ACS. His cardiac enzymes were negative x3 . ACS was ruled out. Further workup including triglycerides levels did show elevated triglycerides, total cholesterol, and LDL. The patient did state that he is noncompliant with his low-fat heart-he althy diet, however, does take his statin faithfully. The patient's symptoms improved. He was seen by Dr. Abreu, who did not recommend any further intervention. Echocardiogram was done, which showed EF of 69%, otherwise normal. The patient therefore was doing well and was stable for discharge to [facility] [place] up with his primary occupancy specialist, Dr. Patel. His EKG showed some minimal voltage for left vent ricular hypertrophy, otherwise was normal. The patient was then discharged to home in stable conditi on. Activity: As tolerated. Medications: As per medication reconciliation list. His statin dose will be increased. Followup: Follow up with primary care physician in 2-3 days. Follow up with primary occupancy specialist, Tiffany Patel in 2 weeks. Return to ER for worsening condition. Diet: Heart-healthy, low-fat diet, calorie-restricted diet. Physical Examination: General: Awake, alert, oriented, no acute distress. CV: S1, S2. No murmurs. Respiratory: Moving air well bilaterally. Abdomen: Abdomen is soft, nontender, nondistended. Positive bowel sounds. Extremities: No clubbing, cyanosis, or edema. Neurologic: Nonfocal. SA/MODL Voice ID: [id number] Report ID: [id number]
== END 2018-08-10 11:35 | disposition home or self-care (01) ==
LOC: ER 13:57 → ERHOLD 15:41 → 4TH 16:19
PROVIDERS: ADMIT Family Medicine; ATTEND Hospitalist
DX: I25.110 Atherosclerotic heart disease of native coronary artery with unstable angina pectoris (principal); Z95.5 Presence of coronary angioplasty implant and graft; D68.51 Activated protein C resistance; Z86.711 Personal history of pulmonary embolism; Z86.718 Personal history of other venous thrombosis and embolism; E78.5 Hyperlipidemia, unspecified; E66.9 Obesity, unspecified; Z68.31 Body mass index [BMI] 31.0-31.9, adult
CPT/HCPCS: 36415; 71045; 71275; 80048; 80061; 80076; 82550; 83690; 83880; 84484; 85025; 85610; 85730; 93005; 93306; 94760; 96374; 99285; G0378; J1170; J1642; J1650; J1652; Q9967

== ENCOUNTER 2018-08-19 09:26 | Observation (INO) | payer BC ==
--- OUTSIDE RECORDS SUMMARY | 2018-08-19 09:29 | XMS REPORT | Clinical Summary ---
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 05/02/2018 Emergency Emergency Saeed Diana Chest pain, Medicine MD Jackie unspecified type (Primary Dx) 12/12/2017 - Hospital Encounter General Internal Bryce Mcogwan, 12/15/2017 Medicine DO 12/12/2017 Orders Only General Internal Bryce Mcgowan, Medicine DO 11/26/2017 - Hospital Encounter General Surgery Serenity, Chest pain in adult (Primary Dx); 11/27/2017 Alejandro Garza Acquired coagulation factor deficiency; 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 DIRECT TISH' (MAURI) Timed 12/14/2017 10:28 Results for this AM HEALTH AND SAFETY TECH procedure are in the results section. ANTIBODY IDENTIFICATION Timed 12/14/2017 10:28 Results for this AM HEALTH AND SAFETY TECH procedure are in the results section. TYPE AND SCREEN Routine 12/14/2017 10:28 Results for this AM HEALTH AND SAFETY TECH procedure are in the results section. HC COMPLETE BLD COUNT STAT 12/14/2017 8:35 Results for this W/AUTO DIFF AM HEALTH AND SAFETY TECH procedure are in the results section. VANCOMYCIN LEVEL, Timed 12/14/2017 8:35 Results for this TROUGH AM HEALTH AND SAFETY TECH procedure are in the results section. CT ANGIOGRAM PE CHEST Routine 12/13/2017 2:28 Results for this PM HEALTH AND SAFETY TECH procedure are in the results section. BLOOD CULTURE, AEROBIC Routine 12/13/2017 10:40 Results for this & ANAEROBIC AM HEALTH AND SAFETY TECH procedure are in the results section. INFLUENZA ANTIGEN Routine 12/13/2017 10:10 Results for this AM HEALTH AND SAFETY TECH procedure are in the results section. ZZESTIMATED GFR Routine 12/13/2017 5:10 Results for this AM HEALTH AND SAFETY TECH procedure are in the results section. HC COMPLETE BLD COUNT Routine 12/13/2017 5:10 Results for this W/AUTO DIFF AM HEALTH AND SAFETY TECH procedure are in the results section. BASIC METABOLIC PANEL Routine 12/13/2017 5:10 Results for this AM HEALTH AND SAFETY TECH procedure are in the results section. TROPONIN Timed 12/13/2017 12:07 Results for this AM HEALTH AND SAFETY TECH procedure are in the results section. TROPONIN Timed 12/12/2017 2:47 Results for this PM HEALTH AND SAFETY TECH procedure are in the results section. LIPID PANEL Routine 12/12/2017 2:47 Results for this PM HEALTH AND SAFETY TECH procedure are in the results section. TROPONIN Timed 11/27/2017 11:47 Results for this AM HEALTH AND SAFETY TECH procedure are in the results section. ECG 12-LEAD Routine 11/27/2017 11:02 Results for this AM HEALTH AND SAFETY TECH procedure are in the results section. CBC WITH PLATELET AND Timed 11/27/2017 5:38 Results for this DIFFERENTIAL AM HEALTH AND SAFETY TECH procedure are in the results section. BASIC METABOLIC PANEL Timed 11/27/2017 5:38 Results for this AM HEALTH AND SAFETY TECH procedure are in the results section. ZZESTIMATED GFR Timed 11/27/2017 5:38 Results for this AM HEALTH AND SAFETY TECH procedure are in the results section. TROPONIN Timed 11/27/2017 5:38 Results for this AM HEALTH AND SAFETY TECH procedure are in the results section. TROPONIN Routine 11/26/2017 11:35 Results for this PM HEALTH AND SAFETY TECH procedure are in the results section. ECG 12-LEAD Routine 11/26/2017 10:59 Results for this PM HEALTH AND SAFETY TECH procedure are in the results section. after 08/18/2017 Results Transfuse RBC (06/15/2018 5:50 PM)Only the most recent of2 resultswithin the time period is included.Troponin (05/13/2018 12:34 PM)Only the most recent of9 resultswithin the time period is included. Troponin <0.300 0.000 - 0.300 ng/mL [facility] DEPARTMENT OF Comment: PATHOLOGY AND GENOMIC 0.30 - 1.49 ng/mlMay indicate increased risk of acute MEDICINE coronary syndrome. >=1.5 ng/mlConsistent with acute myocardial infarction. The diagnostic value of a single normal or non-diagnostic result is questionable.Serial samples at 2-6 hour intervals are required to rule out acute myocardial injury. Specimen Plasma specimen Performing Organization Address [facility] Phone Number [facility] PATHOLOGY AND [id number] [place] [address] [place] [address] [facility] Prothrombin time with INR (05/13/2018 6:30 AM)Only the most recent of2 resultswithin the time period is included. Prothrombin time 12.6 12.0 - 15.0 sec [facility] DEPARTMENT OF PATHOLOGY AND GENOMIC MEDICINE INR 0.9 [facility] DEPARTMENT OF Comment: PATHOLOGY AND GENOMIC The International Normalized Ratio (INR) is a therapeutic MEDICINE monitoring tool for patients who are stable on oral anticoagulant therapy. An INR of 2.0-3.0 is suggested for deep vein thrombosis/pulmonary embolism. Specimen Blood Performing Organization Address [facility] Phone Number [facility] AND [address] [place] [address] [place] [address] [facility] ECG 12 lead (05/13/2018 5:49 AM)Only the most recent of4 resultswithin the time period is included. Ventricular rate 85 [facility] Atrial rate 85 [facility] FL interval 158 [facility] QRSD interval 78 [...] are no longer present- Performing Organization Address City/[facility] Phone Number [facility] MUSE [address] [place] [address] Smear review (05/13/2018 12:35 AM)Only the most recent of2 resultswithin the time period is included. Platelet slide review Antonia adequate [facility] DEPARTMENT OF PATHOLOGY AND GENOMIC MEDICINE Anisocytosis Moderate [facility] DEPARTMENT OF PATHOLOGY AND GENOMIC MEDICINE Tear drop cells Occasional [facility] DEPARTMENT OF PATHOLOGY AND GENOMIC MEDICINE Schistocytes Occasional [facility] DEPARTMENT OF PATHOLOGY AND GENOMIC MEDICINE Performing Organization Address City/[facility]/Zipcode Phone Number [facility] PATHOLOGY AND [address] [place] [address] [place] [address] [facility] Estimated GFR (05/13/2018 12:35 AM)Only the most recent of4 resultswithin the time period is included. GFR Non Af Amer 80 mL/min/1.73 m2 [facility] DEPARTMENT OF PATHOLOGY AND GENOMIC MEDICINE GFR Af Amer >90 mL/min/1.73 m2 [facility] DEPARTMENT OF Comment: PATHOLOGY AND GENOMIC Chronic [...] Americans. Specimen Plasma specimen Performing Organization Address City/[facility]/Zipcode Phone Number [facility] AND [address] [place] [address] [place] [address] [facility] CBC with platelet and differential (05/13/2018 12:35 AM)Only the most recent of5 resultswithin the time period is included. WBC 9.59 4.50 - 11.00 k/uL [facility] DEPARTMENT OF PATHOLOGY AND GENOMIC MEDICINE RBC 3.86 (L) 4.40 - 6.00 m/uL [facility] DEPARTMENT OF PATHOLOGY AND GENOMIC MEDICINE HGB 9.7 (L) 14.0 - 18.0 g/dL [facility] DEPARTMENT OF PATHOLOGY AND GENOMIC MEDICINE HCT 31.2 (L) 41.0 - 51.0 % [facility] DEPARTMENT OF PATHOLOGY AND GENOMIC MEDICINE MCV 80.8 (L) 82.0 - 100.0 fL [facility] DEPARTMENT OF PATHOLOGY AND GENOMIC MEDICINE MCH 25.1 (L) 27.0 - 34.0 pg [facility] DEPARTMENT OF PATHOLOGY AND GENOMIC MEDICINE MCHC 31.1 31.0 - 37.0 g/dL [facility] DEPARTMENT OF PATHOLOGY AND GENOMIC MEDICINE RDW - SD 75.7 (H) 37.0 - 55.0 fL [facility] DEPARTMENT OF PATHOLOGY AND GENOMIC MEDICINE MPV 8.9 8.8 - 13.2 fL [facility] DEPARTMENT OF PATHOLOGY AND GENOMIC MEDICINE Platelet count 248 150 - 400 k/uL [facility] DEPARTMENT OF PATHOLOGY AND GENOMIC MEDICINE Nucleated RBC 0.00 /100 WBC [facility] DEPARTMENT OF PATHOLOGY AND GENOMIC MEDICINE Neutrophils 45.8 39.0 - 69.0 % [facility] DEPARTMENT OF PATHOLOGY AND GENOMIC MEDICINE Lymphocytes 38.3 25.0 - 45.0 % [facility] DEPARTMENT OF PATHOLOGY AND GENOMIC MEDICINE Monocytes 15.3 (H) 0.0 - 10.0 % [facility] DEPARTMENT OF PATHOLOGY AND GENOMIC MEDICINE Eosinophils 0.3 0.0 - 5.0 % [facility] DEPARTMENT OF PATHOLOGY AND GENOMIC MEDICINE Basophils 0.1 0.0 - 1.0 % [facility] DEPARTMENT OF PATHOLOGY AND GENOMIC MEDICINE Specimen Blood Performing Organization Address City/State/Zipcode Phone Number [facility] DEPARTMENT OF [facility] AND [address] [place] [address] [place] [facility] Comprehensive metabolic panel (05/13/2018 12:35 AM)Only the most recent of2 resultswithin the time period is included. Sodium 139 135 - 148 mEq/L [facility] DEPARTMENT OF PATHOLOGY AND GENOMIC MEDICINE Potassium 3.5 3.5 - 5.0 mEq/L [facility] DEPARTMENT OF PATHOLOGY AND GENOMIC MEDICINE Chloride 103 98 - 112 mEq/L [facility] DEPARTMENT OF PATHOLOGY AND GENOMIC MEDICINE CO2 24 24 - 31 mEq/L [facility] DEPARTMENT OF PATHOLOGY AND GENOMIC MEDICINE Anion gap 12@ANIO 7 - 15 mEq/L [facility] DEPARTMENT OF PATHOLOGY AND GENOMIC MEDICINE BUN 22 (H) 6 - 20 mg/dL [facility] DEPARTMENT OF PATHOLOGY AND GENOMIC MEDICINE Creatinine 1.0 0.7 - 1.2 mg/dL [facility] DEPARTMENT OF PATHOLOGY AND GENOMIC MEDICINE Glucose 102 (H) 65 - 99 mg/dL [facility] DEPARTMENT OF PATHOLOGY AND GENOMIC MEDICINE Calcium 8.1 (L) 8.3 - 10.2 mg/dL [facility] DEPARTMENT OF PATHOLOGY AND GENOMIC MEDICINE Protein 6.8 6.3 - 8.3 g/dL [facility] DEPARTMENT OF Comment: PATHOLOGY AND GENOMIC [place] 4.6-7.0 g/dL MEDICINE 1 week 4.4-7.6 g/dL 7 months-1year5.1-7.3 g/dL 1-2 years5.6-7.5 g/dL >3 years6.0-8.0 g/dL 18-150 6.3-8.3 g/dL Albumin 4.1 3.5 - 5.0 g/dL [facility] DEPARTMENT OF PATHOLOGY AND [facility] A/G ratio 1.5 0.7 - 3.8 [facility] DEPARTMENT OF PATHOLOGY AND [facility] Alkaline phosphatase 62 40 - 129 U/L [facility] DEPARTMENT OF PATHOLOGY AND [employer] MEDICINE AST 16 10 - 50 U/L [facility] DEPARTMENT OF PATHOLOGY AND [place] MEDICINE ALT 11 5 - 50 U/L [facility] OF PATHOLOGY AND [facility] Total bilirubin 0.4 0.0 - 1.2 mg/dL [facility] DEPARTMENT OF PATHOLOGY AND [facility] Specimen Plasma specimen Performing Organization Address [facility] Phone Number [facility] AND [address] [place] [address] [place] [address] [facility] Partial thromboplastin time, activated (05/02/2018 10:03 AM) PTT 34.9 23.0 - 36.0 sec [facility] DEPARTMENT OF Comment: PATHOLOGY AND [facility] PTT therapeutic range for unfractionated heparin is MEDICINE 61.0-112.0 seconds which corresponds to Anti-Xa 0.3-0.7 U/ml. Specimen Blood Performing Organization Address [facility] Phone Number [facility] AND [address] [place] [address] [place] [address] [facility] D-dimer (05/02/2018 10:03 AM) D-dimer <0.27 0.00 - 0.40 ug/mL FEU [facility] DEPARTMENT OF Comment: PATHOLOGY AND [facility] Units are ug/ml Fibrinogen Equivalent Unit. MEDICINE [...] and malignancies. Specimen Blood Performing Organization Address [facility] Phone Number [facility] AND [address] [place] [address] [place] [address] GENOMIC MEDICINE Creatine kinase, total (CPK) (05/02/2018 10:03 AM) Creatine kinase 150 39 - 308 U/L [facility] DEPARTMENT OF PATHOLOGY AND GENOMIC MEDICINE Specimen Plasma specimen Performing Organization Address City/[facility] Phone Number [facility] DEPARTMENT OF PATHOLOGY AND [address] [place] [address] GENOMIC MEDICINE XR Chest 1 Vw Portable [...] atrium IMPRESSION: No acute finding is visualized [id number] Procedure Note Hm Interface, Radiology Results Incoming [...] atrium IMPRESSION: No acute finding is visualized [id number] Performing Organization Address City/[facility] Phone Number [facility] [address] [place] [address] ECG ED Preliminary Interpretation - NOT AN ORDER (05/02/2018 9:27 AM) Narrative Performed At Saeed Diana MD 05/02/20187:36 PM ECG ED Preliminary Interpretation - Not an Order Performed by: SAEED DIANA Authorized by: SAEED DIANA ECG reviewed by ED Physician in the absence of a software administrator: yes (read at 0921) Interpretation: Interpretation: normal Rate: ECG rate:87 ECG rate assessment: normal Rhythm: Rhythm: sinus rhythm Ectopy: Ectopy: none QRS: QRS axis:Normal Conduction: Conduction: normal ST segments: ST segments:Normal T waves: T waves: normal Direct Tish' (MAURI) (12/14/2017 10:28 AM) Direct Tish POS [facility] DEPARTMENT OF PATHOLOGY Comment: AND GENOMIC MEDICINE testing performed at [facility], [place]a [place] in [place] with critical 12/14/17 at 2000 Performing Organization Address City/[facility]/Zipcode Phone Number [facility] DEPARTMENT OF PATHOLOGY AND [id number] [place] [address] [place] [address] GENOMIC MEDICINE Antibody identification (12/14/2017 10:28 AM) Antibody ID POS, Anti-EComment: ADDING [facility] DEPARTMENT OF PATHOLOGY AND [facility] GENOMIC MEDICINE Antibody ID POS, Anti-KellComment: ADDING [facility] DEPARTMENT OF PATHOLOGY AND [facility] GENOMIC MEDICINE Antibody ID POS, Bg AntibodyComment: [facility] DEPARTMENT OF PATHOLOGY AND ADDING [facility] GENOMIC MEDICINE Performing Organization Address City/[facility]/Zipcode Phone Number [facility] DEPARTMENT OF PATHOLOGY AND [address] [place] [address] [place] [address] [facility] Prepare RBC, 2 Units (12/14/2017 10:28 AM) Product name Red Blood Cells -1, [facility] DEPARTMENT OF Leukored PATHOLOGY AND GENOMIC MEDICINE Unit number [id number] [facility] DEPARTMENT OF PATHOLOGY AND GENOMIC MEDICINE Product code [id number] [facility] DEPARTMENT OF PATHOLOGY AND GENOMIC MEDICINE Dispense status Transfused [facility] DEPARTMENT OF PATHOLOGY AND GENOMIC MEDICINE Blood expiration date [facility] DEPARTMENT OF PATHOLOGY AND GENOMIC MEDICINE Blood type code 6200 [facility] DEPARTMENT OF PATHOLOGY AND GENOMIC MEDICINE Blood type A POSITIVE [facility] DEPARTMENT OF PATHOLOGY AND GENOMIC MEDICINE Product name Red Blood Cells -1, [facility] DEPARTMENT OF Leukored PATHOLOGY AND GENOMIC MEDICINE Unit number [id number] [facility] DEPARTMENT OF PATHOLOGY AND GENOMIC MEDICINE Product code [id number] [facility] DEPARTMENT OF PATHOLOGY AND GENOMIC MEDICINE Dispense status Transfused [facility] DEPARTMENT OF PATHOLOGY AND GENOMIC MEDICINE Blood expiration date [facility] DEPARTMENT OF PATHOLOGY AND GENOMIC MEDICINE Blood type code 6200 [facility] DEPARTMENT OF PATHOLOGY AND GENOMIC MEDICINE Blood type A POSITIVE [facility] DEPARTMENT OF PATHOLOGY AND GENOMIC MEDICINE Performing Organization Address City/[facility]/Zipcode Phone Number [facility] DEPARTMENT OF PATHOLOGY AND [address] [place] [address] GENOMIC MEDICINE Type and screen (12/14/2017 10:28 AM) ABO grouping AB [facility] DEPARTMENT OF PATHOLOGY AND GENOMIC MEDICINE Rh type POS [facility] DEPARTMENT OF PATHOLOGY AND GENOMIC MEDICINE Antibody screen POS [facility] DEPARTMENT OF PATHOLOGY AND GENOMIC MEDICINE Specimen Blood Performing Organization Address [facility] Phone Number [facility] DEPARTMENT OF PATHOLOGY AND [address] [place] [address] [facility] Vancomycin level, trough (12/14/2017 8:35 AM) Vancomycin, trough 6.1 (L) 10.0 - 20.0 ug/mL [facility] DEPARTMENT OF Comment: PATHOLOGY AND GENOMIC Therapeutic Ranges: MEDICINE Peak 30.0 - 40.0 ug/mL Fxazub14.0 - 20.0 ug/mL Specimen Serum Performing Organization Address [facility]code Phone Number [facility] DEPARTMENT OF PATHOLOGY AND [address] [place] [address] [facility] CT Angiogram Pe Chest (12/13/2017 2:28 PM) [...] 2. Mild scarring at the lung bases. [id number] Procedure Note Interface, Radiology Results Incoming - 12/13/2017 2:52 PM HEALTH AND SAFETY TECH EXAMINATION: CT ANGIOGRAM PE CHEST CLINICAL HISTORY:47 [...] 2. Mild scarring at the lung bases. [id number] Performing Organization Address City/[facility] Phone Number [facility] [address] [place] [address] Blood culture, aerobic & anaerobic (12/13/2017 10:40 AM) Blood culture isolate No growth after 5 days of incubation. [facility] DEPARTMENT OF Comment: PATHOLOGY AND GENOMIC Specimen Information MEDICINE Specimen Source: Blood Specimen Site: Line, port-a-cath Right Specimen Blood - Line, port-a-cath Performing Organization Address City/[facility] Phone Number [facility] DEPARTMENT OF PATHOLOGY AND [address] [place] [address] [employer] MEDICINE Influenza antigen (12/13/2017 10:10 AM) Influenza antigen Negative for Influenza A/B antigen. [facility] DEPARTMENT OF Comment: PATHOLOGY AND GENOMIC Specimen Information MEDICINE Specimen Source: Nares Specimen Site: Not specified Specimen Nares - Not specified Performing Organization Address City/[facility]/Zipcode Phone Number [facility] DEPARTMENT OF PATHOLOGY AND [address] [place] [address] [place] MEDICINE Basic metabolic panel (12/13/2017 5:10 AM)Only the most recent of2 resultswithin the time period is included. Sodium 133 (L) 135 - 148 mEq/L [facility] DEPARTMENT OF PATHOLOGY AND GENOMIC MEDICINE Potassium 4.1 3.5 - 5.0 mEq/L [facility] DEPARTMENT OF PATHOLOGY AND GENOMIC MEDICINE Chloride 97 (L) 98 - 112 mEq/L [facility] DEPARTMENT OF PATHOLOGY AND GENOMIC MEDICINE CO2 24 24 - 31 mEq/L [facility] DEPARTMENT OF PATHOLOGY AND GENOMIC MEDICINE Anion gap 12 7 - 15 mEq/L [facility] DEPARTMENT OF Comment: PATHOLOGY AND GENOMIC Starting from January , anion gap calculation MEDICINE no longer incorporates potassium. Please note the change. BUN 20 6 - 20 mg/dL [facility] DEPARTMENT OF PATHOLOGY AND GENOMIC MEDICINE Creatinine 1.3 (H) 0.7 - 1.2 mg/dL [facility] DEPARTMENT OF PATHOLOGY AND GENOMIC MEDICINE Glucose 119 (H) 65 - 99 mg/dL [facility] DEPARTMENT OF PATHOLOGY AND GENOMIC MEDICINE Calcium 8.8 8.3 - 10.2 mg/dL [facility] DEPARTMENT OF PATHOLOGY AND GENOMIC [facility] Specimen Plasma specimen Performing Organization Address City/State/Zipcode Phone Number [facility] DEPARTMENT OF PATHOLOGY AND [address] [place] [address] GENOMIC [facility] Lipid panel (12/12/2017 2:47 PM) Cholesterol 189 <200 mg/dL [facility] DEPARTMENT OF PATHOLOGY AND GENOMIC MEDICINE Triglycerides 65 <150 mg/dL [facility] DEPARTMENT OF PATHOLOGY AND GENOMIC MEDICINE HDL cholesterol 72 >40 mg/dL [facility] DEPARTMENT OF PATHOLOGY AND GENOMIC MEDICINE LDL cholesterol 116 (H)Comment: Result <100 mg/dL [facility] obtained by direct LDL PATHOLOGY AND GENOMIC measurement MEDICINE Lipid panel interpretation SeeBelow [facility] OF Comment: PATHOLOGY AND GENOMIC Total Cholesterol (mg/dL) MEDICINE <200 Desirable [id number]-hvsd >=240High Triglycerides (mg/dL) <150 Normal [id number]-fmwp 200-499High >=500Very high HDL Cholesterol (mg/dL) <40Low (male) <40Low (female) LDL Cholesterol (mg/dL) <100 Optimal 100-129Near or above optimal [phone]-[id number] 160-189High >=190Very high Risk Catergories that modify [...] Phone Number [facility] DEPARTMENT OF PATHOLOGY AND [address] [place] [address] [employer] MEDICINE after 08/18/2017 Insurance Payer Benefit Plan / Group Subscriber ID Type Phone Address [employer] EXCHANGE BLUE ADVANTAGE HMO EXCH xxxxxxxxxxxx Exchange Work: [address] y [phone] [facility] [address] [place], [place] Home: [phone]
--- OUTSIDE RECORDS SUMMARY | 2018-08-19 09:30 | XMS REPORT | Continuity of Care Document ---
:1970 Author Organization [facility] Care Team Providers Name Role Phone Avni DALEY, Lenny Ackerman Unavailable Insurance Providers Payer name Policy type / Policy ID Covered alliance party ID Policy Nelson Coverage type [id number] [...]
--- OUTSIDE RECORDS SUMMARY | 2018-08-19 09:30 | XMS REPORT | Clinical Summary ---
:1970 Author Organization [facility] Address [address] [place] [address] Care Team Providers Name Role Phone Blanco [...] cheek 2 18 FilmIndications: (two) times daily. chronic pain pantoprazole Take 1 tablet (40 30 tablet [...] Internal Wiliam Sanderson Medicine MD Ira after 08/18/2017 Family History Medical History Relation [...] 366 ms QTC Calculation(Bazett) 430 ms P Proctor 44 degrees R Proctor 29 degrees T Proctor 12 degrees Sinus rhythm with occasional Premature ventricular complexes Otherwise normal ECG TROPONIN I Routine 01/22/2018 1:16 PM CDT CREATINE KINASE (CK), Routine 01/22/2018 1:16 PM CDT Results for this TOTAL AND MB procedure are in the results section. 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 Narrative Performed At ED ECG Interpretation (05/24/2018 2:50 PM CDT)Only the most recent of2 resultswithin the time period is included. Narrative Performed At Ros Waed MD 05/24/20182:50 PM ECG/EKG Interpretation Date/Time: 05/24/2018 [...] Venous 1.3 0.5 - 2.2 mmol/L [facility] Specimen Blood Narrative Performed At Maintenance Assistant LABORATORY Effective 02/12/2016: Units/Reference Range Change New: 0.5-2.2 mmol/LPrevious: 5-18 mg/dL Performing Organization Address City/State/Zipcode Phone Number [facility] [address] [place] [address] [phone] Urinalysis w/Microscopic + Reflex to Culture (05/24/2018 1:51 PM CDT) Color, UA Yellow [facility] Clarity, UA Clear [facility] Specific [place], UA 1.010 1.001 - 1.035 [facility] pH, UA 7.0 5.0 - 8.0 [facility] Protein, UA Negative Negative [facility] Glucose, UA Negative Negative [facility] Ketones, UA Negative Negative [facility] Bilirubin, UA Negative Negative [facility] Blood, UA Negative Negative [facility] Nitrite, UA Negative Negative [facility] Leukocytes, UA Negative Negative [facility] Urobilinogen, UA 0.2 0.2 - 1.0 mg/dL [facility] Bacteria, UA None Seen [facility] RBC, UA None Seen /HPF [facility] WBC, UA <5 /HPF [facility] SQUAMOUS EPITHELIAL None Seen /HPF [facility] Specimen Source [facility] Specimen Urine - Urine, Clean Catch Performing Organization Address City/[facility]/Zipcode Phone Number [facility] [address] [place], [place] [phone] Blood culture (05/24/2018 12:50 PM CDT)Only the most recent of2 resultswithin the time period is included. Result No growth in 5 days [facility] Specimen Blood - Line, Venous Performing Organization Address [facility] Phone Number [facility] [address] [place], [place] [address] [phone] CT chest PE test design (05/24/2018 12:43 PM CDT)Only the most recent of3 resultswithin the time period is included. Narrative Performed At FINAL REPORT [facility] TECHNIQUE: CT scan of the chest WITH [...] MD Report Verified Date/Time:05/24/2018 13:14:23 Reading Location: [address] Radiology Reading Room Procedure Note Interface, [...] Report Verified Date/Time: 05/24/2018 13:14:23 Reading Location: [address] Radiology Reading Room Performing Organization Address City/State/Zipcode Phone Number [facility] XR chest 1 view portable / bedside [...] MD Report Verified Date/Time:05/24/2018 10:18:17 Reading Location: [facility] Radiology Reading Room Procedure Note Interface, [...] Report Verified Date/Time: 05/24/2018 10:18:17 Reading Location: [facility] Radiology Reading Room Performing Organization Address City/[facility] Phone Number GE RIS Manual Differential (05/24/2018 9:55 AM CDT)Only the most recent of8 resultswithin the time period is included. Total Counted [facility] WBC Morphology Normal [facility] Platelet Morphology Normal [facility] Anisocytosis 3+ many [facility] Hypochromia 3+ many [facility] Specimen Blood - Line, Venous Performing Organization Address City/[facility]/Zipcode Phone Number [facility] [address] [place], [place] [phone] PT/aPTT (05/24/2018 9:55 AM CDT)Only the most recent of3 resultswithin the time period is included. Protime 9.9 9.3 - 12.0 sec [facility] INR 0.9 <=5.9 [facility] PTT 39.3 (H) 23.0 - 35.0 sec [facility] Specimen Blood - Line, Venous Narrative Performed At [facility] RECOMMENDED COUMADIN/WARFARIN INR THERAPY RANGES STANDARD DOSE: 2.0 - 3.0 Includes: PROPHYLAXIS for venous thrombosis, systemic embolization; TREATMENT for venous thrombosis and/or pulmonary embolus. HIGH RISK: Target INR is 2.5-3.5 for patients with mechanical heart valves. Final Information (Auto Output) Final Information (Auto Output) Final Information (Auto Output) Performing Organization Address City/State/Zipcode Phone Number [facility] [address] [place], [place] [phone] CBC with platelet count + automated diff (05/24/2018 9:55 AM CDT)Only the most recent of9 resultswithin the time period is included. WBC 9.8 4.0 - 10.0 K/L [facility] RBC 4.15 (L) 4.20 - 5.80 M/L [facility] Hemoglobin 10.7 (L) 13.0 - 16.8 GM/DL [facility] Hematocrit 33.6 (L) 40.0 - 50.0 % [facility] MCV 80.8 (L) 82.0 - 98.0 fL [facility] MCH 25.7 (L) 27.0 - 33.0 pg [facility] MCHC 31.8 (L) 32.0 - 36.0 GM/DL [facility] RDW 28.4 (H) 10.3 - 14.2 % [facility] Platelets 324 150 - 430 K/CU MM [facility] MPV 7.3 6.5 - 10.5 fL [facility] nRBC 0 0 - 0 /100 WBC [facility] % Neutros 75 % [facility] % Lymphs 17 % [facility] % Monos 6 % [facility] % Eos 2 % [facility] % Baso 0 % [facility] # Neutros 7.30 1.80 - 8.00 K/L [facility] # Lymphs 1.70 1.48 - 4.50 K/L [facility] # Monos 0.60 0.00 - 1.30 K/L [facility] # Eos 0.20 0.00 - 0.50 K/L [facility] # Baso 0.00 0.00 - 0.20 K/L [facility] Specimen Blood - Line, Venous Performing Organization Address [facility] Phone Number [facility] [address] [place] [address] Troponin I (not available at [facility]) (05/24/2018 9:55 AM CDT)Only the most recent of8 resultswithin the time period is included. Troponin I <0.03 0.00 - 0.15 ng/mL [facility] Specimen Blood - Line, Venous Narrative Performed At [facility] Troponin I (TnI) levels must be [...] disease, and persistent tachyarrhythmia. Performing Organization Address [facility] Phone Number [address] [address] B-type natriuretic peptide (05/24/2018 9:55 AM CDT)Only the most recent of3 resultswithin the time period is included. BNP 8 0 - 100 pg/mL [facility] Specimen Blood - Line, Venous Performing Organization Address [facility] Phone Number [address] [phone] Creatine Kinase (CK), Total and MB (not available at [facility]) (2017 9:55 AM CDT)Only the most recent of3 resultswithin the time period is included. Total CK 76 40 - 250 U/L [facility] CK-MB 1.2 0.0 - 4.9 ng/mL [facility] MB Relative Index 1.6 % [facility] Specimen Blood - Line, Venous Narrative Performed At CK-MB Reference Range: [facility] <5 Normal 5-10 Borderline >10Abnormal Performing Organization Address [facility] Phone Number [facility] [address] [place], [place] [address] Hepatic function panel (05/24/2018 9:55 AM CDT) Protein, Total 7.0 6.0 - 8.5 gm/dL [facility] Albumin 4.3 3.5 - 5.0 g/dL [facility] Total Bilirubin 0.4 0.1 - 1.2 mg/dL [facility] Bilirubin, Direct 0.2 0.0 - 0.4 mg/dL [facility] Alkaline Phosphatase 70 30 - 115 U/L [facility] AST 18 5 - 40 U/L [facility] ALT 13 5 - 50 U/L [facility] Specimen Blood Performing Organization Address City/[facility]/Zipcode Phone Number [facility] [address] [place], [place] [address] [phone] Basic metabolic panel (Na, K+, Cl, CO2, Glu, Ca, BUN, Cr) (05/24/2018 9:55 AM CDT)Only the most recent of8 resultswithin the time period is included. Sodium 138 135 - 148 meq/L [facility] Potassium 3.6 3.6 - 5.5 meq/L [facility] Chloride 106 98 - 106 meq/L [facility] CO2 21 20 - 29 meq/L [facility] BUN 11 10 - 26 mg/dL [facility] Creatinine 0.96 0.50 - 1.20 mg/dL [facility] Glucose 212 (H) 70 - 110 mg/dL [facility] Calcium 9.4 8.5 - 10.5 mg/dL [facility] EGFR 84Comment: ESTIMATED GFR IS NOT mL/min/1.73 sq m [facility] ACCURATE CREATININE CLEARANCE IN PREDICTING GLOMERULAR FILTRATION RATE. ESTIMATED GFR IS NOT APPLICABLE FOR DIALYSIS PATIENTS. Specimen Blood - Line, Venous Performing Organization Address City/State/Zipcode Phone Number [facility] [address] [place], [place] [address] [phone] RHYTHM STRIP - SCAN (04/27/2018 12:51 PM CDT)Only the most recent of3 resultswithin the time period is included. Narrative Performed At Prothrombin time/INR (04/26/2018 5:08 AM CDT)Only the most recent of8 resultswithin the time period is included. Protime 21.9 (H) 9.3 - 12.0 sec [facility] INR 2.1 <=5.9 [facility] Specimen Blood Narrative Performed At [facility] RECOMMENDED COUMADIN/WARFARIN INR THERAPY RANGES STANDARD DOSE: 2.0 - 3.0 Includes: PROPHYLAXIS for venous thrombosis, systemic embolization; TREATMENT for venous thrombosis and/or pulmonary embolus. HIGH RISK: Target INR is 2.5-3.5 for patients with mechanical heart valves. Final Information (Auto Output) Final Information (Auto Output) Performing Organization Address [facility] Phone Number [facility] [address] [place] [address] aPTT (04/26/2018 12:43 AM CDT)Only the most recent of18 resultswithin the time period is included. PTT >150.0 (HH) 23.0 - 35.0 sec [facility] Specimen Blood Narrative Performed At Final Information (Auto Output) [facility] Performing Organization Address [facility] Number [facility] [address] [place] [address] TRANSFUSION SERVICE REPORT - SCAN (04/21/2018 6:05 PM CDT)Only the most recent of3 resultswithin the time period is included. Narrative Performed At Prepare Leuko-Red RBC (04/20/2018 11:54 PM CDT) Unit ABO A Pos [facility] [place] UNIT NUMBER [id number] [facility] [place] Status TRANSFUSED [facility] [place] Blood Bank Product RED BLOOD CELLS [facility] [place] PRODUCT CODE [id number] [facility] [place] CROSSMATCH COMPATIBLE [facility] [place] Specimen Other Performing Organization Address [facility] Phone Number [facility] [place] CBC (Hemogram only) (04/20/2018 9:16 PM CDT)Only the most recent of2 resultswithin the time period is included. WBC 7.0 4.0 - 10.0 K/L [facility] RBC 3.89 (L) 4.20 - 5.80 M/L [facility] Hemoglobin 8.8 (L) 13.0 - 16.8 GM/DL [facility] Hematocrit 27.6 (L) 40.0 - 50.0 % [facility] MCV 70.8 (L) 82.0 - 98.0 fL [facility] MCH 22.6 (L) 27.0 - 33.0 pg [facility] MCHC 32.0 32.0 - 36.0 GM/DL [facility] RDW 20.0 (H) 10.3 - 14.2 % [facility] Platelets 360 150 - 430 K/CU MM [facility] MPV 7.4 6.5 - 10.5 fL [facility] Specimen Blood Performing Organization Address City/[facility] Phone Number [facility] [address] [place] [address] D-dimer (04/20/2018 7:53 AM CDT) D-Dimer, Quant 0.93 (H) <0.50 mg/L [facility] Specimen Blood Narrative Performed At [facility] REGARDING D-DIMER RESULTS: The 98% NPV (Negative Predictive Value) for DVT/PE exclusion is 0.50 mg/L FEU as suggested by the legal manager and as approved by the FDA. Final Information (Auto Output) Performing Organization Address City/[facility] Phone Number [facility] [address] [place], [place] [address] [phone] Antibody identification (04/19/2018 5:19 PM CDT) ANTIBODY ID (NIMO) Anti-EComment: Testing performed by: [facility] [place] [facility], [address] [place] [address] [place] [address] Antibody Consult SIGNED OUTComment: Anti E causes RBC [facility] [place] injury, transfuse E negative RBCs.Electronic Signature: Ayaz Feliz M.D. Performing Organization Address City/[facility] Phone Number [facility] [place] Transfuse Leuko-Red RBC (04/19/2018 5:21 AM CDT)Only the most recent of2 resultswithin the time period is included.PERIPHERAL VASCULAR REPORT - SCAN (06/2018 1:00 PM CDT) Narrative Performed At Venous doppler legs bilateral (04/18/2018 11:50 AM CDT) Narrative Performed At FINAL REPORT [facility] History: Lower extremity swelling Comparison: None Discussion: [...] MD Report Verified Date/Time:04/18/2018 12:31:58 Reading Location: [facility] Radiology Reading Room Procedure Note Interface, [...] Report Verified Date/Time: 04/18/2018 12:31:58 Reading Location: [facility] Radiology Reading Room Performing Organization Address City/State/Zipcode Phone Number [facility] Prothrombin Gene Mutation (04/18/2018 10:51 AM CDT) Prothrombin/Factor II Negative for the [id number] [facility] (Prothrombin/Factor II) [facility] mutation. Pathologist: Annmarie Thomas MD [facility] (electronic signature) [facility] Specimen Blood Narrative Performed At [facility] This test is a genotyping assay which evaluates the DNA sequence at position 08962 of the prothrombin (Factor II) gene. A [...] and its performance characteristics determined by the [facility] Pathology Department, Section of Molecular Pathology. It has not been cleared or approved by the U.S. Food and Drug Administration (FDA), since FDA approval is not required for clinical use of the test. Validation was done as required by the Clinical Laboratory Improvement Amendments of 1988. Performing Organization Address City/State/Zipcode Phone Number [address] [phone] CENTER Vitamin B12 and Folate (04/18/2018 10:51 AM CDT) Vitamin B12 497 213 - 816 pg/mL [facility] Folate 6.5 (L) >=7.0 ng/mL [facility] Specimen Blood Performing Organization Address [facility] Phone Number [address] [phone] CENTER Phosphatidylserine Abs (IgG, IgM) (04/18/2018 10:51 AM CDT) [facility].Serine Ab IgG <10 U/mL [facility] Comment: [...] more information on this test, go to: http://education.Avokia.[employer]/faq/JRY751 Specimen Blood Narrative Performed At Performing Lab [facility] [employer] [facility] [address] [place] [address] Rodney Bolivar MD, PhD, BRIANNA Performing Organization Address City/State/Zipcode Phone Number [facility], [place] [address] INCORPORATED [address] [facility] Iron, TIBC, % sat. (without ferritin) (04/18/2018 10:51 AM CDT) Iron 16 (L) 40 - 160 ug/dL [facility] TIBC 468 (H) 250 - 450 ug/dL [facility] Iron % Saturation 3 (L) 20 - 55 % [facility] Specimen Blood Performing Organization Address [facility] Phone Number [facility] [address] [place] [address] CENTER MTHF reductase mutation (04/18/2018 10:51 AM CDT) MTHFR SEE BELOW [facility] Comment: 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 The "thermolabile" variant C677T [NM 420275.3: c.665C>T (p.A222V)] and W5734P [c. 1286A>C (p.E429A)] occur frequently in the [...] uncertain and is not recommended by The [employer] (ACMG) or the [employer] Gynec[employer] (ACOG) in [...] and prothrombin gene mutations. The C677T and V3982V variants are detected by amplification of the [...] Health care providers, please contact your local [facility]' genetic counselor or call [employer] ([phone]) for assistance with interpretation of these results. This test was developed and its analytical performance characteristics have been determined by [facility]. It has not been cleared or approved by FDA. This assay has been validated pursuant to the CLIA regulations and is used for clinical purposes. Specimen Blood Narrative Performed At Performing Lab [email or web address] [facility] [employer] [address] [address] Rodney Bolivar MD, PhD, BRIANNA Performing Organization Address [facility] Phone [place] [address] INCORPORATED [facility] [employer] [facility] Protein S antigen, total (04/18/2018 10:51 AM CDT) Protein S, Total Antigen 90 70 - 140 % normal [facility] Specimen Blood Narrative Performed At Performing Lab [email or web address] [facility] [employer] [address] [address] Rodnye Bolivar MD, PhD, BRIANNA Performing Organization Address [facility]/Zipcode Phone Number [facility] [address] INCORPORATED [address] [facility] Protein C antigen, total (04/18/2018 10:51 AM CDT) Protein C Antigen 100 70 - 140 % normal [facility] Comment: INCORPORATED Decreased levels of Protein C antigen may be found in congenital deficiency, treatment with oral anticoagulants, liver disease, D.I.C. and post surgery. Specimen Blood Narrative Performed At Performing Lab [facility] [employer] [facility] [address] [place] [address] Rodney Bolivar MD, PhD, BRIANNA Performing Organization Address [facility] Phone Number [place] [address] INCORPORATED [address] [facility] Cardiolipin Antibodies, IgG and IgM (04/18/2018 10:51 AM CDT) Anticardiolipin IgG <1.6 <20.0 GPL [facility] Anticardiolipin IgM 0.5 <20.0 MPL [facility] Specimen Blood Narrative Performed At Anticardiolipin IgG Result Interpretation: [facility] <20.0 GPL Normal >/=20.0 GPL Positive Anticardiolipin IgM Result Interpretation: <20.0 MPL Normal >/=20.0 MPL Positive Performing Organization Address City/[facility] Phone Number [address] [address] CENTER Factor 5 Leiden PCR (thrombotic risk) (04/18/2018 10:51 AM CDT) Factor V Leiden Negative for the R506Q (Factor [facility] V Leiden) mutation [facility]ICAL [facility]ENTER Pathologist: Annmarie Thomas MD [facility] (electronic signature) [facility] Specimen Blood Narrative Performed At This test is a genotyping assay which [facility] evaluates the DNA sequence corresponding to Codon [...] and its performance characteristics determined by the [facility] Pathology Department, Section of Molecular Pathology. It has not been cleared or approved by the U.S. Food and Drug Administration (FDA), since FDA approval is not required for clinical use of the test. Validation was done as required by the Clinical Laboratory Improvement Amendments of 1988. Performing Organization Address City/[facility] Phone Number [address] [address] [phone] CENTER Antithrombin III (04/18/2018 10:51 AM CDT) Antithrombin III 81.0 80.0 - 120.0 % [facility] Specimen Blood Performing Organization Address [facility] Phone Number [address] [address] CENTER Reticulocyte count (04/18/2018 10:51 AM CDT) % Retic 1.5 0.4 - 2.9 % [facility] Specimen Blood Performing Organization Address [facility] Phone Number [facility] [address] [place] [phone] Type and screen (04/18/2018 10:51 AM CDT) Ab Scrn POSITIVE [facility] ABO Grouping AB [facility] Rh Factor POS [facility] Specimen Blood Performing Organization Address [facility] Phone Number [address] [address] [facility] Protein electrophoresis, serum (04/18/2018 10:51 AM CDT) Albumin Fraction 3.5 3.5 - 5.5 g/dL [facility] Alpha 1 Fraction 0.2 0.2 - 0.4 g/dL [facility] Alpha 2 Fraction 0.6 0.5 - 0.9 g/dL [facility] Beta Fraction 1.1 0.6 - 1.1 g/dL [facility] Gamma Globulin Fraction 0.8 0.7 - 1.7 g/dL [facility] Interpretation All fractions present [facility] in expected [facility] distribution. No monoclonal bands detected. Pathologist: Annmarie Thomas MD [facility] (electronic signature) [facility] Protein, Total 6.3 6.0 - 8.3 gm/dL [facility] Specimen Blood Performing Organization Address City/[facility] Phone Number [address] [address] CENTER Lactate dehydrogenase (LDH) (04/18/2018 10:51 AM CDT) LDH 174 107 - 206 U/L [facility] Specimen Blood Performing Organization Address City/[facility] Phone Number [facility] [address] [place] [address] [phone] Homocysteine (04/18/2018 10:51 AM CDT) Homocysteine 6.1 5.1 - 15.4 umol/L [facility] Specimen Blood Performing Organization Address [place] [facility] Phone Number [address] [address] CENTER Ferritin (04/18/2018 10:51 AM CDT) Ferritin 8 (L) 22 - 322 ng/mL [facility] Specimen Blood Performing Organization Address City/[facility] Phone Number [facility] [address] [place] [address] [phone] TSH/Free T4 If Indicated (04/17/2018 9:06 PM CDT) TSH 0.71 0.35 - 5.50 uIU/mL [facility] Specimen Blood Performing Organization Address [place] [facility] Phone Number [facility] [address] [place] [address] [phone] Magnesium (02/01/2018 6:15 AM CDT) Magnesium 2.4 1.5 - 3.0 mg/dL [facility] Specimen Blood Performing Organization Address City/State/Zipcode Phone Number [facility] [address] [place] [address] [phone] Lipid panel (01/31/2018 11:33 PM CDT) Triglycerides 53 mg/dL [facility] Cholesterol 183 mg/dL [facility] HDL 62 mg/dL [facility] LDL Calculated 110 mg/dL [facility] Specimen Blood Narrative Performed At [facility] Triglyceride Reference Range: Low Risk <150 [id number] High Risk 200-499 Very High Risk>=500 Cholesterol Reference Range: Low Risk <200 [id number] High Risk>240 HDL Cholesterol Reference Range: Low Risk >=60 High Risk <40 LDL Cholesterol Reference Range: Optimal<100 Near [id number] [id number] Very High >=190 Performing Organization Address City/State/Zipcode Phone Number [facility] [address] [place] [address] [phone] after 08/18/2017 Insurance Payer Benefit Plan / Subscriber ID Type Phone Address Group BLUE CROSS/BLUE BCBS ADV HMO xxxxxxxxxxxx [phone] [address] [place] [address] (Work) [phone] Advance Directives For more information, please contact:[address] [phone] Code Status Date Activated Date Inactivated Comments [...]
--- OUTSIDE RECORDS SUMMARY | 2018-08-19 09:30 | XMS REPORT | Continuity of Care Document ---
[...] MYELOPATHY 014 Neuro LUMBAR Active Condition 07/20/2014 [facility] RADICULOPATHY 014 Neuro Low back Active Problem 10/14/2017 Data [facility] pain<sup>1</sup> 014 migrated Medical from [facility], on 06/04/15. H [place] Lumbar Active Problem 10/14/2017 Data [facility] radiculopathy<sup>2 014 migrated Medical </sup> from [facility], on 06/04/15. H [place] Spinal stenosis of Active Problem 10/14/2017 Data [facility] lumbar 014 migrated Medical region<sup>3</sup> from [facility], on 06/04/15. H [place] Chest pain Active Problem 10/14/[address], [place] [facility] Pain / sensation Active Problem 10/14/2017 [facility] finding(<span 010 Medical ID="[id number]">[facility] ble</span>) [place] [facility] Anxiety Active Problem 10/14/[address],[facility] Hypertension Active Problem 10/14/[address],[facility] [place] Sinus tachycardia Active Problem 10/14/[address],[facility] [place] Back pain Active Problem 10/14/2017 [facility] [place] Depression Resolved Problem 10/14/2017 [facility] Depression (<span Active Problem 10/14/2017 [facility] ID="[id number]">Co Medical nfirmed</span>) [place],[facility] [place] 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 [facility] Hyperlipidemia Active Problem 10/14/2017 [facility] [place] Pain Active Problem 10/14/2017 [facility] Pericarditis Resolved Problem 10/14/2017 [facility] Pulmonary embolism Resolved Problem 10/14/2017 [facility] SVT - Resolved Problem 10/14/2017 [facility] Supraventricular Medical tachycardia Center,[facility] CHEST PAIN, Active [facility] [place] Medications Medication Details Route Status Patient Ordering Order Source Instructions Provider Date Docusate 100 mg, 1 Inactive cap, Route: 018 [place] PO, Drug form: CAP, BID, Dosing Weight 81.818, kg, Start date: 10/11/17 17:00:00 [employer], Duration: 30 day, Stop date: 11/10/17 9:00:00 CSTNotes: (Same as: Colace) (Do Not Crush) Ondansetron 4 mg, 2 mL, Inactive Route: IVP, 018 [place] Drug form: INJ, Q6H, Dosing Weight 81.818, kg, PRN Nausea & Vomiting, Start date: 10/11/17 15:19:00 [employer], Duration: 30 day, Stop date: 11/10/17 15:18:00 CSTNotes: (Same as: Zofran) MEDICATION WASTE Product Size: 4 mg Product Wasted: ___ mg enoxaparin 80 80 mg, Active [place] mg/0.8 mL SUB-Q, Q12H, [facility] subcutaneous 0 Refill(s) Center solution simvastatin 20 20 mg=1 tab, Active [facility] mg oral tablet PO, Bedtime, [facility] # 30 tab, 1 Center Refill(s) clopidogrel 75 75 mg=1 tab, Active [facility] MG Oral Tablet PO, Daily, # 017 Medical [Plavix] 30 tab, 0 Center Refill(s) Acetaminophen 1 tab, PO, Active [place] 325 MG / Q4H, PRN for [facility] Hydrocodone pain, # 24 Center Bitartrate 10 tab, 0 MG Oral Tablet Refill(s) [[place] 10/325] heparin 500 mL, Inactive [facility] additive 25,000 Rate: 26.06 [facility] unit [18 ml/hr, Center unit/kg/hr] + Infuse over: Premix Diluent 19.2 hr, Dextrose 5% 500 Route: IVPB, mL Dosing Weight 72.39 kg, Total Volume: 500 mL, Start date: 11/20/16 5:23:00 [employer], Duration: 30 day, Stop date: 12/20/16 5:22:00 CDT Heparin 40 Pharmacy To Inactive [facility] unit/kg [facility] Manage, [facility] (Heparin Dosing Route: IVP, Center Weight) PRN, Drug form: INJ, PRN, Heparin Protocol, Start date: 11/20/16 5:23:00 [employer] Stop date: 12/20/16 6:22:00 CDT, 30 day Heparin 80 Pharmacy To Inactive [facility] unit/kg [facility] Manage, [facility] (Heparin Dosing Route: IVP, Center Weight) PRN, Drug form: INJ, PRN, Heparin Protocol, Start date: 11/20/16 5:23:00 [employer] Stop date: 12/20/16 6:22:00 CDT, 30 day Dilaudid 1 mg, 0.5 Inactive [facility] mL, Route: [facility] IVP, Drug Center form: INJ, ONCE, Dosing Weight 81.818, kg, Priority: STAT, Start date: 11/20/16 5:05:00 [employer], Stop date: 11/20/16 5:05:00 CSTNotes: Same as: [...] Neuro morphine Assertion Rash Drug Active allergy [place] Toradol Assertion rash Drug Active allergy [place] Ambien Assertion Sleep Propensity Active walking to adverse [place] reactions to drug Immunizations Immunization Date Given Site Status Last Comments Source Updated influenza virus 05/12/2014 completed Man Admin Note: [facility] vaccine, received at [facility]<sup>1 [facility], </sup> [facility] tuberculin 02/21/2010 Left Arm completed Belinda [facility] purified protein Medical derivative Center,[facility] Results Order Name Results Value Reference Date Interpretation Comments Source Range CARDIAC Troponin-T null 0.000 - 11/20 [facility] ENZYMES 0.100 /2016 [facility] CARDIAC Total CK 81 unit/L 12 - 191 11/20 [facility] ENZYMES /[address] [place] [address] CARDIAC Troponin-I null 0.00 - 11/20 [facility] ENZYMES 0.40 /[address] [place] [address] CARDIAC CK MB Index 0.7 0.0 - 2.5 11/20 [facility] ENZYMES /[address] [place] [address] CARDIAC CK MB 0.6 ng/mL 0.5 - 3.6 11/20 [facility] ENZYMES /[address] [place] [address] CHEM PANEL Magnesium 1.8 mg/dL 1.8 - 2.4 11/20 [facility] Lvl /[address] [place] [address] CHEM PANEL Phosphorus 2.5 mg/dL 2.5 - 4.5 11/20 [place] /[address] [place] [address] ELECTROLYT AGAP 10.3 meq/L 10.0 - 11/20 [facility] ES 20.0 /2016 [facility] ELECTROLYT B/C Ratio 13 6 - 25 11/20 [facility] ES /[address] [place] [address] ELECTROLYT A/G Ratio 1.2 0.7 - 1.6 11/20 [facility] ES /2016 [facility] ELECTROLYT Globulin 3.3 g/dL 2.7 - 4.2 11/20 [facility] [address] [place] [address] ELECTROLYT eGFR 105 11/20 Result Comment: The eGFR is calculated using the CKD-EPI formula. In most young, healthy individuals the eGFR will be >90 mL/ min/1.73m2. The eGFR declines with age. An eGFR of 60-89 may be normal in [facility] mL/min/1.7 /2016 some populations, particularly the elderly, for whom the CKD-EPI formula has not been extensively validated. Use of the eGFR is not recommended in the following populations: [address] Individuals with unstable creatinine concentrations, including [...] Lvl 8.4 mg/dL 8.5 - 10.5 11/20 [facility] [address] [place] [address] ELECTROLYT Chloride Lvl 107 meq/L 95 - 109 11/[address] ELECTROLYT BUN 11 mg/dL 7 - 22 11/[address] ELECTROLYT Glucose Lvl 100 mg/dL 70 - 99 11/[address] ELECTROLYT Potassium 3.3 meq/L 3.5 - 5.1 11/20 [facility] ELECTROLYT Sodium Lvl 140 meq/L 135 - 145 11/[address] ELECTROLYT Creatinine 0.86 mg/dL 0.50 - 11/20 [facility] Lvl 1.40 [facility] ELECTROLYT CO2 26 meq/L 24 - 32 11/[address] ELECTROLYT AST 27 unit/L 0 - 37 11/[address] ELECTROLYT ALT 22 unit/L 0 - 65 11/[address] ELECTROLYT Albumin Lvl 4.0 g/dL 3.5 - 5.0 11/[address] ELECTROLYT Bili Total 0.5 mg/dL 0.2 - 1.3 11/[address] ELECTROLYT Total 7.3 g/dL 6.4 - 8.4 11/20 [facility] ELECTROLYT Alk Phos 78 unit/L 39 - 136 11/20 [facility] ES [facility] HEMATOLOGY Anti-Xa 0.67 11/20 [facility] Unfractionat [iU]/mL /2016 [facility] HEMATOLOGY Monocytes # 0.6 K/CMM 0.0 - 0.8 11/20 [facility] HEMATOLOGY Lymphocytes 1.6 K/CMM 1.0 - 5.5 11/20 [place] # /2016 [facility] HEMATOLOGY Segs-Bands # 3.1 K/CMM 1.5 - 8.1 11/20 [facility] HEMATOLOGY Basophils 1.6 % 0.0 - 1.0 11/20 [facility] HEMATOLOGY Eosinophils 0.1 % 0.0 - 4.0 11/20 [facility] HEMATOLOGY Basophils # 0.1 K/CMM 0.0 - 0.2 11/20 [facility] HEMATOLOGY Microcyte 1+ None Seen 11/20 Medical *ABN* Center (11/20/16 5:39 AM) HEMATOLOGY Lymphocytes 29.5 % 20.0 - 11/20 [place] 40.0 [facility] HEMATOLOGY Monocytes 10.6 % 2.0 - 12.0 11/20 [facility] HEMATOLOGY Segs 58.2 % 45.0 - 11/20 75.0 [facility] HEMATOLOGY INR 1.11 0.85 - 11/20 1.17 [facility] HEMATOLOGY PT 14.5 s 12.0 - 11/20 14.7 [facility] HEMATOLOGY PTT 32.9 s 22.9 - 11/20 [place] 35.8 [facility] HEMATOLOGY MCV 76.5 fL 80.0 - 11/20 [place] 94.0 [facility] HEMATOLOGY Hct 29.2 % 42.0 - 02 [place] 54.0 [facility] HEMATOLOGY MCH 24.1 pg 27.0 - 11/20 31.0 [facility] HEMATOLOGY Platelet 316 K/CMM 133 - 450 11/[address] [place] [address] HEMATOLOGY MCHC 31.5 g/dL 32.0 - 02 [place] 36.0 [facility] HEMATOLOGY RDW 20.7 % 11.5 - 11/20 [place] 14.5 [facility] HEMATOLOGY WBC 5.3 K/CMM 3.7 - 10.4 11/20 [facility]2016 [facility] HEMATOLOGY Hgb 9.2 g/dL 14.0 - 11/20 [facility] 18.0 [facility] HEMATOLOGY RBC 3.82 M/CMM 4.70 - 11/20 [facility] 6. [facility] HEMATOLOGY MPV 6.8 fL 7.4 - 10.4 11/[address] Chest Chest Clinical Indication: Chest pain; [...] used for the exam. FINAL REPORT Dose: XKC=666.4 mGy-cm FINDINGS: VASCULAR STRUCTURES: No pulmonary thromboemboli [...] Source Temperature Oral (F) 98.1 F 11/20/2016 [facility] Systolic (mm Hg) 142 11/20/2016 [facility] Diastolic (mm Hg) 99 11/20/2016 [facility] Respitory Rate 19 11/20/2016 [facility] Temperature Oral (F) 97.9 F 11/20/2016 [facility] Respitory Rate 18 11/20/2016 [facility] Systolic (mm Hg) 152 11/20/2016 [facility] Diastolic (mm Hg) 88 11/20/2016 [facility] Weight 81.818 11/20/2016 [facility] BMI Calculated 28.25 11/20/2016 [facility] Height 170.18 cm 11/20/2016 [facility] Respitory Rate 18 10/12/2016 [facility] Systolic (mm Hg) 132 10/12/2016 [facility] Diastolic (mm Hg) 67 10/12/2016 [facility] Systolic (mm Hg) 139 10/11/2016 [facility] Diastolic (mm Hg) 65 10/11/2016 [facility] Respitory Rate 18 10/11/2016 [facility] BMI Calculated 28.25 10/11/2016 [facility] Weight 81.818 10/11/2016 [facility] Height 170.18 cm 10/11/2016 [facility] Temperature Oral (F) 98.2 F 10/11/2016 [facility] Heart Rate 96 10/11/2016 [facility] Respitory Rate 18 10/11/2016 [facility] Systolic (mm Hg) 128 10/11/2016 [facility] Diastolic (mm Hg) 93 10/11/2016 [facility] Weight 176 07/18/2014 [facility] Neuro Height 67 07/18/2014 [facility] Neuro Temperature Oral (F) 100.3 F 07/18/2014 [facility] Neuro Heart Rate 108 07/18/2014 [facility] Neuro Systolic (mm Hg) 145 07/18/2014 [facility] Neuro Diastolic (mm Hg) 105 07/18/2014 [facility] Neuro Encounters Location Location Encounter Encounter Reason Attending ADM DC Status Source Details Type Number For Provider Date Date Visit [facility] Office [id number] [facility] 07[facility] [id number] Avni DALEY /2013 Neuro e NE [facility] Lab Report [id number] Lenny 07/20 07/20 [place] [id number] Avni DALEY /2013 [facility] Emergency [id number] Silas 10/11 10/12 KEREN [place] 0 [facility] /2016 [facility] Inpatient [id number] March Karena 11/20 11/20 Francisco Te[place] [facility] Observation [id number] Kathya 02/18 02/18 KEREN [place] 0 Ed [facility] Inpatient [id number] Valentin 09/06 09/06 Francisco Te[place]eira 0 Briseyda [facility] Inpatient [id number] González 10/11 10/11 KEREN [place] 1 Onur [facility] Procedures Procedure Code Date Perfomer Comments Source Cholecystectomy [id number] [facility] Laminectomy and [id number] [facility] discectomy [facility] Procedure on back [id number] [facility] Cholecystectomy [id number] [facility] Laminectomy and [id number] [facility] discectomy Procedure on back [id number] [facility] Cholecystectomy [id number] [facility] Laminectomy and [id number] [facility] discectomy Procedure on back [id number] [facility]
--- OUTSIDE RECORDS SUMMARY | 2018-08-19 09:31 | XMS REPORT | Continuity of Care Document ---
[...] Location Date Lab Report Lenny Holly MD [facility] Jul 20, 2014 Allergies, Adverse Reactions, Alerts [...]
--- OUTSIDE RECORDS SUMMARY | 2018-08-19 09:31 | XMS REPORT | Continuity of Care Document ---
[...] Location Date Lab Report Lenny Holly MD [facility] [place] Jul 20, 2014 Allergies, Adverse Reactions, Alerts [...]
--- OUTSIDE RECORDS SUMMARY | 2018-08-19 09:34 | XMS REPORT ---
:1970 [facility] [address] [place] [address] Care Team Providers Name Role Phone SUDEEP, [...] MO 2017-11 00:00:0 0 ketorolac DA Active AL 2017-11 00:00:0 0 Medications This patient has no known medications. Encounters Start End Encounter Admission Attending Care Care Encounter Date/Time Date/Time Type Type Clinicians Facility Department ID 2018-07-31 2018-07-31 Emergency E SUDEEP Maki [facility] [id number] 00:38:00 05:56:00 BOB 2018-07-15 2018-07-16 Outpatient E KERRY BUCIO TELE [id number] 10:19:00 12:35:00 [place] 2017-12-16 2017-12-16 Emergency E JOLEEN KOWALSKI [facility] [id number] 13:45:00 17:07:00 Results Test Description Test Time Test Comments Text Results Atomic Results Result Comments CARDIAC PROFILE *WW* 2018-07-31 05:25:00 Test Item Value Reference Range Comments TROPONIN I (test code=A84) <0.015 ng/mL 0.000-0.045 CBC (INCLUDES AUTOMATED DIFFERENTIAL)*[id number] 01:33:00 Test Item Value Reference Range Comments [...] code=09D) 7.9 mg/dL 8.3-9.5 CBC (INCLUDES AUTOMATED DIFFERENTIAL)*[id number] 06:34:00 Test Item Value Reference Range Comments [...] CHEST WITH CONTRAST, PE PROTOCOL: Location code: [id number] HISTORY: Shortness of breath , chest painCOMPARISON: [...] (test code=09D) 8.6 mg/dL 8.3-9.5 Arterial Blood [id number] 08:55:00 Test Item Value Reference Range Comments pH (test code=PHRT) 7.412 7.350-7.450 pCO2 (test code=PCO2RT) 36.2 mmHg 35.0-45.0 pO2 (test code=PO2RT) 99.7 mmHg 80.0-110.0 HCO3? (test code=HCO3) 22.6 mmol/L 22.0-26.0 DARIO (test code=DARIO) -1.1 mmol/L -3.0-3.0 tHb (test code=THBRT) 11.0 g/dL 14.0-18.0 sO2 (test code=SO2RT) 96.9 % 92.0-100.0 FO2Hb (test code=BL1VGOW) 94.7 % 94.0-100.0 FCOHb (test code=FCOHBRT) 1.2 % 0.0-3.0 FMetHb (test code=FMETHBRT) 1.1 % 0.2-0.6 ABGTEMP (test code=ABGTEMP) * Temp Corrected Values* ABGTEMP (test code=ABGTEMP.) 37.0 ?C pH (T) (test code=PHTEMP) 7.412 7.350-7.450 pCO2 (T) (test code=MMR1GEVY) 36.2 mmHg 35.0-45.0 pO2 (T) (test code=IX5WJHY) 99.7 mmHg 80.0-110.0 Device (test code=DEVICE) ROOM [...] For Most Other Applications CBC (INCLUDES AUTOMATED DIFFERENTIAL)*[id number] 07:33:00 Test Item Value Reference Range Comments [...] XR CHEST 1 VIEW PORTABLE *WW*2018-07-15 07:25:22Location: [id number], FRONTAL VIEW HISTORY: [id number]: Chest painCOMPARISON: Chest x-ray 388FINDINGS: The lungs are clear without consolidation. No pleural effusion or pneumothorax.The heart size is normal. Thebones are unremarkable. Right IJ Port- A-Cath isin the SVC.IMPRESSION:No evidence of acute cardiopulmonary disease.BLOOD [id number] 16:00:00 Test Item Value Reference Range Comments CULTURE (BEAKER) (test orjj=1383) No growth in 5 days BLOOD [id number] 16:00:00 Test Item Value Reference Range Comments CULTURE (BEAKER) (test tnoy=4852) No growth in 5 days LACTIC ACID, VENOUS, WHOLE [id number] 14:43:00 Test Item Value Reference Range Comments LACTATE BLOOD VENOUS (2) (BEAKER) (test 1.3 mmol/L 0.5-2.2 ilov=2868) Effective 02/12/2016: Units/Reference Range ChangeNew: 0.5-2.2 mmol/L Previous: 5 -18 mg/dLURINALYSIS W/ REFLEX URINE [id number] 14:17:00 Test Item Value Reference Range Comments COLOR (BEAKER) (test gshi=015) Yellow CLARITY (BEAKER) (test urdc=921) Clear SPECIFIC GRAVITY UA (BEAKER) (test ybeq=256) 1.010 1.001-1.035 PH UA (BEAKER) (test yccm=494) 7.0 5.0-8.0 PROTEIN UA (BEAKER) (test ohly=835) Negative Negative GLUCOSE UA (BEAKER) (test jzxn=289) Negative Negative KETONES UA (BEAKER) (test jpfm=585) Negative Negative BILIRUBIN UA (BEAKER) (test tzhk=211) Negative Negative BLOOD UA (BEAKER) (test rujy=439) Negative Negative NITRITE UA (BEAKER) (test rkjs=590) Negative Negative LEUKOCYTE ESTERASE UA (BEAKER) (test Negative Negative cqvn=388) UROBILINOGEN UA (BEAKER) (test kclq=019) 0.2 mg/dL 0.2-1.0 BACTERIA (BEAKER) (test qilm=403) None Seen RBC UA-MANUAL (BEAKER) (test brtw=3786) None Seen /HPF WBC UA-MANUAL (BEAKER) (test yynt=1341) <5 /HPF SQUAMOUS EPITHELIAL MANUAL (BEAKER) (test None Seen /HPF yals=8716) SOURCE(BEAKER) (test evdw=9879) CT, CHEST WITH IV CONTRAST- PE TEST [id number] 13:14:00Reason for exam:-& gt;CHEST PAINReason for exam:->h/o [...] Verified Date/ Time: 05/24/2018 13:14:23 Reading Location: [address] Radiology Reading Room LACTIC ACID, VENOUS, WHOLE [id number] 11:37:00 Test Item Value Reference Range Comments LACTATE BLOOD VENOUS (2) (BEAKER) (test 4.6 mmol/L 0.5-2.2 zfxo=6186) Effective 02/12/2016: Units/Reference Range ChangeNew: 0.5-2.2 mmol/L Previous: 5 -18 mg/dLCBC W/PLT COUNT & AUTO [id number] 11:20:00 Test Item Value Reference Range Comments WHITE BLOOD CELL COUNT (BEAKER) (test vdxd=135) 9.8 K/ L 4.0-10.0 RED BLOOD CELL COUNT (BEAKER) (test zlov=423) 4.15 M/ L 4.20-5.80 HEMOGLOBIN (BEAKER) (test rmgg=569) 10.7 GM/DL 13.0-16.8 HEMATOCRIT (BEAKER) (test desv=964) 33.6 % 40.0-50.0 MEAN CORPUSCULAR VOLUME (BEAKER) (test hdco=275) 80.8 fL 82.0-98.0 MEAN CORPUSCULAR HEMOGLOBIN (BEAKER) (test 25.7 pg 27.0-33.0 vuwg=355) MEAN CORPUSCULAR HEMOGLOBIN CONC (BEAKER) (test 31.8 GM/DL 32.0-36.0 htsu=232) RED CELL DISTRIBUTION WIDTH (BEAKER) (test 28.4 % 10.3-14.2 ieja=411) PLATELET COUNT (BEAKER) (test apez=762) 324 K/CU MM 150-430 MEAN PLATELET VOLUME (BEAKER) (test ulet=384) 7.3 fL 6.5-10.5 NUCLEATED RED BLOOD CELLS (BEAKER) (test 0 /100 WBC 0-0 ijfh=279) NEUTROPHILS RELATIVE PERCENT (BEAKER) (test 75 % bkmp=391) LYMPHOCYTES RELATIVE PERCENT (BEAKER) (test 17 % glat=775) MONOCYTES RELATIVE PERCENT (BEAKER) (test 6 % cgoa=394) EOSINOPHILS RELATIVE PERCENT (BEAKER) (test 2 % ortx=899) BASOPHILS RELATIVE PERCENT (BEAKER) (test 0 % bfcj=482) NEUTROPHILS ABSOLUTE COUNT (BEAKER) (test 7.30 K/ L 1.80-8.00 hniq=433) LYMPHOCYTES ABSOLUTE COUNT (BEAKER) (test 1.70 K/ L 1.48-4.50 wrse=567) MONOCYTES ABSOLUTE COUNT (BEAKER) (test 0.60 K/ L 0.00-1.30 ewaz=435) EOSINOPHILS ABSOLUTE COUNT (BEAKER) (test 0.20 K/ L 0.00-0.50 ridl=770) BASOPHILS ABSOLUTE COUNT (BEAKER) (test 0.00 K/ L 0.00-0.20 vrmp=355) (MANUAL DIFFERENTIAL)2018-05-24 11:20:00 Test Item Value Reference Range Comments TOTAL COUNTED (BEAKER) (test yeup=1923) WBC MORPHOLOGY (BEAKER) (test pksp=092) Normal PLT MORPHOLOGY (BEAKER) (test eyif=496) Normal ANISOCYTOSIS (BEAKER) (test knep=811) 3+ many HYPOCHROMIA (BEAKER) (test ehvk=543) 3+ many TROPONIN [id number] 11:12:00 Test Item Value Reference Range Comments TROPONIN I (BEAKER) (test ghjd=291) < ng/mL 0.00-0.15 Troponin I (TnI) levels [...] and persistent tachyarrhythmia.CREATINE KINASE (CK), TOTAL AND [id number] 11:11:00 Test Item Value Reference Range Comments CREATINE KINASE TOTAL (BEAKER) (test qsfz=014) 76 U/L 40-250 CREATINE KINASE-MB (BEAKER) (test favx=054) 1.2 ng/mL 0.0-4.9 CREATINE KINASE-MB INDEX (BEAKER) (test owau=559) 1.6 % CK-MB Reference Range:<5 Normal5-10 Borderline>10 AbnormalHEPATIC FUNCTION [id number] 11:06:00 Test Item Value Reference Range Comments TOTAL PROTEIN (BEAKER) (test vnhy=166) 7.0 gm/dL 6.0-8.5 ALBUMIN (BEAKER) (test cxbp=2961) 4.3 g/dL 3.5-5.0 BILIRUBIN TOTAL (BEAKER) (test djvf=420) 0.4 mg/dL 0.1-1.2 BILIRUBIN DIRECT (BEAKER) (test nnqk=163) 0.2 mg/dL 0.0-0.4 ALKALINE PHOSPHATASE (BEAKER) (test ytar=293) 70 U/L 30-115 AST (SGOT) (BEAKER) (test qmuo=522) 18 U/L 5-40 ALT (SGPT) (BEAKER) (test iyvn=050) 13 U/L 5-50 BASIC METABOLIC [id number] 11:03:00 Test Item Value Reference Range Comments SODIUM (BEAKER) (test 138 meq/L 135-148 ahhg=733) POTASSIUM (BEAKER) (test 3.6 meq/L 3.6-5.5 yoch=591) CHLORIDE (BEAKER) (test 106 meq/L 98-106 iveo=331) CO2 (BEAKER) (test 21 meq/L 20-29 viyc=038) BLOOD UREA NITROGEN 11 mg/dL 10-26 (BEAKER) (test obxs=649) CREATININE (BEAKER) (test 0.96 mg/dL 0.50-1.20 uusp=363) GLUCOSE RANDOM (BEAKER) 212 mg/dL 70-110 (test dbsz=758) CALCIUM (BEAKER) (test 9.4 mg/dL 8.5-10.5 igkj=732) EGFR (BEAKER) (test 84 mL/min/1.73 sq m ESTIMATED GFR IS NOT jcnr=5771) ACCURATE CREATININE CLEARANCE IN PREDICTING GLOMERULAR FILTRATION RATE. ESTIMATED GFR IS NOT APPLICABLE FOR DIALYSIS PATIENTS. B-TYPE NATRIURETIC FACTOR (BNP)2018-05-24 11:02:00 Test Item Value Reference Range Comments B-TYPE NATRIURETIC PEPTIDE (BEAKER) (test bnqm=208) 8 pg/mL 0-100 PT/[id number] 10:53:00 Test Item Value Reference Range Comments PROTIME (BEAKER) (test itlm=099) 9.9 sec 9.3-12.0 INR (BEAKER) (test xlzp=837) 0.9 <=5.9 PARTIAL THROMBOPLASTIN TIME (BEAKER) (test 39.3 sec 23.0-35.0 fpin=299) RECOMMENDED COUMADIN/WARFARIN INR THERAPY RANGESSTANDARD DOSE: 2.0 - 3.0 Includes: PROPHYLAXIS forvenous thrombosis, systemic embolization; TREATMENT for venous thrombosis and/or pulmonary embolus.HIGH RISK: Target INR is 2.5-3.5 for patients with mechanical heart valves.Final Information (Auto Output)Final Information (Auto Output)Final Information (Auto Output)RAD, CHEST, 1 VIEW, NON [id number] 10:18:00Reason for exam:->CHEST PAINShould this be performed at the bedside?->YesFINAL REPORT Chest one view INDICATION: Chest pain COMPARISON: 09/27/2016 IMPRESSION: There is no focal consolidation, vascular congestion, pleural effusion, or pneumothorax. Heart size is within normal limits. Mild aortic tortuosity is noted. A right chest Port-A-Cath is in place. The bones appear intact. Signed: June Evangelista MDReport Verified Date/Time: 05/24/2018 10:18:17 Reading Location: [facility] Radiology Reading Room CBC W/PLT COUNT & AUTO [id number] 08: 55:00 Test Item Value Reference Range Comments WHITE BLOOD CELL COUNT (BEAKER) (test wagk=556) 5.4 K/ L 4.0-10.0 RED BLOOD CELL COUNT (BEAKER) (test pcok=215) 3.90 M/ L 4.20-5.80 HEMOGLOBIN (BEAKER) (test jhzh=811) 9.2 GM/DL 13.0-16.8 HEMATOCRIT (BEAKER) (test yvea=867) 29.2 % 40.0-50.0 MEAN CORPUSCULAR VOLUME (BEAKER) (test ahil=505) 75.0 fL 82.0-98.0 MEAN CORPUSCULAR HEMOGLOBIN (BEAKER) (test 23.7 pg 27.0-33.0 awol=757) MEAN CORPUSCULAR HEMOGLOBIN CONC (BEAKER) (test 31.5 GM/DL 32.0-36.0 srnz=861) RED CELL DISTRIBUTION WIDTH (BEAKER) (test 26.3 % 10.3-14.2 jkee=302) PLATELET COUNT (BEAKER) (test szvr=116) 338 K/CU MM 150-430 MEAN PLATELET VOLUME (BEAKER) (test pqpl=787) 7.9 fL 6.5-10.5 (MANUAL DIFFERENTIAL)2018-04-26 08:55:00 Test Item Value Reference Range Comments NEUTROPHILS - REL (DIFF) (BEAKER) (test wbsa=9590) 61 % LYMPHOCYTES - REL (DIFF) (BEAKER) (test fygm=4180) 32 % MONOCYTES - REL (DIFF) (BEAKER) (test zdhm=3497) 5 % EOSINOPHILS - REL (DIFF) (BEAKER) (test maez=5414) 2 % NEUTROPHILS - ABS (DIFF) (BEAKER) (test ksxb=7658) 3.29 K/ L 1.80-8.00 LYMPHOCYTES - ABS (DIFF) (BEAKER) (test qerl=3902) 1.73 K/ L 1.48-4.50 MONOCYTES - ABS (DIFF) (BEAKER) (test tdsm=5372) 0.27 K/ L 0.00-1.30 EOSINOPHILS - ABS (DIFF) (BEAKER) (test wgdo=2797) 0.11 K/ L 0.00-0.50 TOTAL COUNTED (BEAKER) (test jkzd=6894) 100 WBC MORPHOLOGY (BEAKER) (test alvc=327) Normal PLT MORPHOLOGY (BEAKER) (test caov=315) Normal ANISOCYTOSIS (BEAKER) (test tmhq=530) 1+ few HYPOCHROMIA (BEAKER) (test zhis=762) 3+ many PROTHROMBIN TIME/[id number] 06:37:00 Test Item Value Reference Range Comments PROTIME (BEAKER) (test qcfr=003) 21.9 sec 9.3-12.0 INR (BEAKER) (test uwbo=226) 2.1 <=5.9 RECOMMENDED COUMADIN/WARFARIN INR THERAPY RANGESSTANDARD DOSE: 2.0 - 3.0 Includes: PROPHYLAXIS forvenous thrombosis, systemic embolization; TREATMENT for venous thrombosis and/or pulmonary embolus.HIGH RISK: Target INR is 2.5-3.5 for patients with mechanical heart valves.Final Information (Auto Output)Final Information (Auto Output)[id number] 04:49:00 Test Item Value Reference Range Comments PARTIAL THROMBOPLASTIN TIME (BEAKER) (test jpxl=393) > sec 23.0-35.0 Final Information (Auto Output)[id number] 16:53:00 Test Item Value Reference Range Comments PARTIAL THROMBOPLASTIN TIME (BEAKER) (test xjka=623) > sec 23.0-35.0 Final Information (Auto Output)[id number] 06:08:00 Test Item Value Reference Range Comments PARTIAL THROMBOPLASTIN TIME (BEAKER) (test 116.2 sec 23.0-35.0 ozxt=126) Final Information (Auto Output)PROTHROMBIN TIME/[id number] 06:01:00 Test Item Value Reference Range Comments PROTIME (BEAKER) (test txfi=556) 15.9 sec 9.3-12.0 INR (BEAKER) (test hnat=213) 1.5 <=5.9 RECOMMENDED COUMADIN/WARFARIN INR THERAPY RANGESSTANDARD DOSE: 2.0 - 3.0 Includes: PROPHYLAXIS forvenous thrombosis, systemic embolization; TREATMENT for venous thrombosis and/or pulmonary embolus.HIGH RISK: Target INR is 2.5-3.5 for patients with mechanical heart valves.Final Information (Auto Output)Final Information (Auto Output)[id number] 19:40:00 Test Item Value Reference Range Comments PARTIAL THROMBOPLASTIN TIME (BEAKER) (test 67.2 sec 23.0-35.0 pshu=838) Final Information (Auto Output)[id number] 10:46:00 Test Item Value Reference Range Comments PARTIAL THROMBOPLASTIN TIME (BEAKER) (test 63.5 sec 23.0-35.0 qmya=111) Final Information (Auto Output)CBC W/PLT COUNT & AUTO [id number] 06:53:00 Test Item Value Reference Range Comments WHITE BLOOD CELL COUNT (BEAKER) (test tapf=622) 6.3 K/ L 4.0-10.0 RED BLOOD CELL COUNT (BEAKER) (test tyrg=084) 3.98 M/ L 4.20-5.80 HEMOGLOBIN (BEAKER) (test blts=224) 9.2 GM/DL 13.0-16.8 HEMATOCRIT (BEAKER) (test whlo=006) 29.6 % 40.0-50.0 MEAN CORPUSCULAR VOLUME (BEAKER) (test pdtp=010) 74.3 fL 82.0-98.0 MEAN CORPUSCULAR HEMOGLOBIN (BEAKER) (test 23.1 pg 27.0-33.0 advj=088) MEAN CORPUSCULAR HEMOGLOBIN CONC (BEAKER) (test 31.1 GM/DL 32.0-36.0 ojjo=002) RED CELL DISTRIBUTION WIDTH (BEAKER) (test 23.2 % 10.3-14.2 fmyf=881) PLATELET COUNT (BEAKER) (test dyjn=715) 356 K/CU MM 150-430 MEAN PLATELET VOLUME (BEAKER) (test ddzk=586) 7.3 fL 6.5-10.5 NUCLEATED RED BLOOD CELLS (BEAKER) (test 0 /100 WBC 0-0 stcw=674) NEUTROPHILS RELATIVE PERCENT (BEAKER) (test 49 % kmfk=459) LYMPHOCYTES RELATIVE PERCENT (BEAKER) (test 36 % fbej=789) MONOCYTES RELATIVE PERCENT (BEAKER) (test 12 % oyxk=534) EOSINOPHILS RELATIVE PERCENT (BEAKER) (test 3 % ybaj=981) BASOPHILS RELATIVE PERCENT (BEAKER) (test 0 % rscz=287) NEUTROPHILS ABSOLUTE COUNT (BEAKER) (test 3.10 K/ L 1.80-8.00 gtqa=110) LYMPHOCYTES ABSOLUTE COUNT (BEAKER) (test 2.30 K/ L 1.48-4.50 lsxu=876) MONOCYTES ABSOLUTE COUNT (BEAKER) (test 0.80 K/ L 0.00-1.30 nauj=722) EOSINOPHILS ABSOLUTE COUNT (BEAKER) (test 0.20 K/ L 0.00-0.50 ngym=556) BASOPHILS ABSOLUTE COUNT (BEAKER) (test 0.00 K/ L 0.00-0.20 zzub=322) (MANUAL DIFFERENTIAL)2018-04-24 06:53:00 Test Item Value Reference Range Comments TOTAL COUNTED (BEAKER) (test shhu=1848) WBC MORPHOLOGY (BEAKER) (test jnjq=279) Normal PLT MORPHOLOGY (BEAKER) (test yuvj=278) Normal ANISOCYTOSIS (BEAKER) (test mpyx=316) 2+ moderate BASOPHILIC STIPPLING (BEAKER) (test aghv=071) Present HYPOCHROMIA (BEAKER) (test oafy=777) 2+ moderate MACROCYTES (BEAKER) (test zraq=919) 1+ few MICROCYTES (BEAKER) (test mjol=231) 1+ few POLYCHROMATOPHILLIC RBCS(BEAKER) (test nccz=199) 1+ few PROTHROMBIN TIME/[id number] 05:46:00 Test Item Value Reference Range Comments PROTIME (BEAKER) (test wrkb=717) 14.5 sec 9.3-12.0 INR (BEAKER) (test wxjx=724) 1.4 <=5.9 RECOMMENDED COUMADIN/WARFARIN INR THERAPY RANGESSTANDARD DOSE: 2.0 - 3.0 Includes: PROPHYLAXIS forvenous thrombosis, systemic embolization; TREATMENT for venous thrombosis and/or pulmonary embolus.HIGH RISK: Target INR is 2.5-3.5 for patients with mechanical heart valves.Final Information (Auto Output)Final Information (Auto Output)[id number] 01:17:00 Test Item Value Reference Range Comments PARTIAL THROMBOPLASTIN TIME (BEAKER) (test 71.8 sec 23.0-35.0 hpma=776) Final Information (Auto Output)[id number] 15:40:00 Test Item Value Reference Range Comments PARTIAL THROMBOPLASTIN TIME (BEAKER) (test 34.8 sec 23.0-35.0 ghys=058) Final Information (Auto Output)PROTHROMBIN TIME/[id number] 06:10:00 Test Item Value Reference Range Comments PROTIME (BEAKER) (test asei=448) 12.2 sec 9.3-12.0 INR (BEAKER) (test ngxd=410) 1.1 <=5.9 RECOMMENDED COUMADIN/WARFARIN INR THERAPY RANGESSTANDARD DOSE: 2.0 - 3.0 Includes: PROPHYLAXIS forvenous thrombosis, systemic embolization; TREATMENT for venous thrombosis and/or pulmonary embolus.HIGH RISK: Target INR is 2.5-3.5 for patients with mechanical heart valves.Final Information (Auto Output)Final Information (Auto Output)[id number] 06:10:00 Test Item Value Reference Range Comments PARTIAL THROMBOPLASTIN TIME (BEAKER) (test 36.3 sec 23.0-35.0 uvjj=290) Final Information (Auto Output)[id number] 20:01:00 Test Item Value Reference Range Comments PARTIAL THROMBOPLASTIN TIME (BEAKER) (test 122.6 sec 23.0-35.0 lfsz=120) Final Information (Auto Output)PROTHROMBIN TIME/[id number] 12:53:00 Test Item Value Reference Range Comments PROTIME (BEAKER) (test rhdp=457) 12.6 sec 9.3-12.0 INR (BEAKER) (test gonh=666) 1.2 <=5.9 RECOMMENDED COUMADIN/WARFARIN INR THERAPY RANGESSTANDARD DOSE: 2.0 - 3.0 Includes: PROPHYLAXIS forvenous thrombosis, systemic embolization; TREATMENT for venous thrombosis and/or pulmonary embolus.HIGH RISK: Target INR is 2.5-3.5 for patients with mechanical heart valves.Final Information (Auto Output)Final Information (Auto Output)PROTEIN ELECTROPHORESIS, [id number] 12:15:00 Test Item Value Reference Range Comments ALBUMIN FRACTION (BEAKER) 3.5 g/dL 3.5-5.5 (test lfix=229) ALPHA 1 FRACTION (BEAKER) 0.2 g/dL 0.2-0.4 (test mjui=192) ALPHA 2 FRACTION (BEAKER) 0.6 g/dL 0.5-0.9 (test lvhd=874) BETA FRACTION (BEAKER) (test 1.1 g/dL 0.6-1.1 ockn=465) GAMMA GLOBULIN FRACTION 0.8 g/dL 0.7-1.7 (BEAKER) (test akvf=028) INTERPRETATION-119 (BEAKER) All fractions present in (test vvka=5280) expected distribution. No monoclonal bands detected. [id number] (BEAKER) Annmarie Thomas MD (test efel=4115) (electronic signature) PROTEIN TOTAL SERUM, SPEP 6.3 gm/dL 6.0-8.3 (BEAKER) (test yfep=5241) CBC W/PLT COUNT & AUTO [id number] 11:59:00 Test Item Value Reference Range Comments WHITE BLOOD CELL COUNT (BEAKER) (test iygb=010) 6.4 K/ L 4.0-10.0 RED BLOOD CELL COUNT (BEAKER) (test heiy=563) 3.87 M/ L 4.20-5.80 HEMOGLOBIN (BEAKER) (test ktww=073) 8.8 GM/DL 13.0-16.8 HEMATOCRIT (BEAKER) (test yvry=881) 28.3 % 40.0-50.0 MEAN CORPUSCULAR VOLUME (BEAKER) (test hthi=659) 72.9 fL 82.0-98.0 MEAN CORPUSCULAR HEMOGLOBIN (BEAKER) (test 22.7 pg 27.0-33.0 oylk=096) MEAN CORPUSCULAR HEMOGLOBIN CONC (BEAKER) (test 31.1 GM/DL 32.0-36.0 tuia=325) RED CELL DISTRIBUTION WIDTH (BEAKER) (test 22.3 % 10.3-14.2 ukhx=270) PLATELET COUNT (BEAKER) (test tpzq=883) 339 K/CU MM 150-430 MEAN PLATELET VOLUME (BEAKER) (test arrw=674) 7.0 fL 6.5-10.5 NUCLEATED RED BLOOD CELLS (BEAKER) (test 0 /100 WBC 0-0 ayqf=663) NEUTROPHILS RELATIVE PERCENT (BEAKER) (test 53 % yryk=638) LYMPHOCYTES RELATIVE PERCENT (BEAKER) (test 31 % drcp=557) MONOCYTES RELATIVE PERCENT (BEAKER) (test 13 % rhzt=226) EOSINOPHILS RELATIVE PERCENT (BEAKER) (test 3 % ubyj=858) BASOPHILS RELATIVE PERCENT (BEAKER) (test 0 % cndf=471) NEUTROPHILS ABSOLUTE COUNT (BEAKER) (test 3.40 K/ L 1.80-8.00 uuwy=453) LYMPHOCYTES ABSOLUTE COUNT (BEAKER) (test 2.00 K/ L 1.48-4.50 usxs=778) MONOCYTES ABSOLUTE COUNT (BEAKER) (test 0.80 K/ L 0.00-1.30 iifn=252) EOSINOPHILS ABSOLUTE COUNT (BEAKER) (test 0.20 K/ L 0.00-0.50 nhya=464) BASOPHILS ABSOLUTE COUNT (BEAKER) (test 0.00 K/ L 0.00-0.20 lkoa=282) (MANUAL DIFFERENTIAL)2018-04-22 11:59:00 Test Item Value Reference Range Comments TOTAL COUNTED (BEAKER) (test rcyd=7743) WBC MORPHOLOGY (BEAKER) (test npsg=645) Normal PLT MORPHOLOGY (BEAKER) (test gvbe=862) Normal ANISOCYTOSIS (BEAKER) (test zusn=810) 2+ moderate HYPOCHROMIA (BEAKER) (test zbhe=756) 3+ many PROTHROMBIN GENE [id number] 11:51:00 Test Item Value Reference Range Comments PROTHROMBIN/FACTOR II Negative for the [id number] (BEAKER) (test swco=4798) (Prothrombin/Factor II) mutation. [id number](NIMO Thomas MD ) (test hhlv=4450) (electronic signature) This test is a genotyping assay which evaluates the DNA sequence at position 52792 of the prothrombin (Factor II) gene. A [...] and its performance characteristics determined by the [facility] Pathology Department, Section of Molecular [...] (BEAKER) Negative for the R506Q (Factor (test rjok=156) V Leiden) mutation [id number] ([facility]) Annmarie Thomas MD (test zvls=5688) (electronic signature) This test is a genotyping [...] [facility] developed [facility]. It has not been cleared or approved by the U.S. Food and Drug Administration (FDA), since FDA approval is not required for clinical use of the test. Validation was done as required by the Clinical Laboratory Improvement Amendments of 1988.[id number] 10:00:00 Test Item Value Reference Range Comments PARTIAL THROMBOPLASTIN TIME (BEAKER) (test xyhe=525) > sec 23.0-35.0 Final Information (Auto Output)[id number] 00:43:00 Test Item Value Reference Range Comments PARTIAL THROMBOPLASTIN TIME (BEAKER) (test 81.0 sec 23.0-35.0 pukf=865) Final Information (Auto Output)[id number] 17:32:00 Test Item Value Reference Range Comments PARTIAL THROMBOPLASTIN TIME (BEAKER) (test 37.3 sec 23.0-35.0 tqgn=680) Final Information (Auto Output)CBC W/PLT COUNT & AUTO [id number] 08:19:00 Test Item Value Reference Range Comments WHITE BLOOD CELL COUNT (BEAKER) (test vrnc=453) 6.2 K/ L 4.0-10.0 RED BLOOD CELL COUNT (BEAKER) (test ztzh=893) 3.89 M/ L 4.20-5.80 HEMOGLOBIN (BEAKER) (test vqmy=063) 8.7 GM/DL 13.0-16.8 HEMATOCRIT (BEAKER) (test jszy=899) 27.8 % 40.0-50.0 MEAN CORPUSCULAR VOLUME (BEAKER) (test gycb=891) 71.4 fL 82.0-98.0 MEAN CORPUSCULAR HEMOGLOBIN (BEAKER) (test 22.4 pg 27.0-33.0 eqvu=157) MEAN CORPUSCULAR HEMOGLOBIN CONC (BEAKER) (test 31.4 GM/DL 32.0-36.0 cgfn=129) RED CELL DISTRIBUTION WIDTH (BEAKER) (test 21.7 % 10.3-14.2 oajm=820) PLATELET COUNT (BEAKER) (test oiab=545) 347 K/CU MM 150-430 MEAN PLATELET VOLUME (BEAKER) (test ckkt=374) 7.1 fL 6.5-10.5 NUCLEATED RED BLOOD CELLS (BEAKER) (test 0 /100 WBC 0-0 jurk=198) NEUTROPHILS RELATIVE PERCENT (BEAKER) (test 52 % qamp=399) LYMPHOCYTES RELATIVE PERCENT (BEAKER) (test 34 % rzcm=475) MONOCYTES RELATIVE PERCENT (BEAKER) (test 10 % hfrc=567) EOSINOPHILS RELATIVE PERCENT (BEAKER) (test 3 % ican=482) BASOPHILS RELATIVE PERCENT (BEAKER) (test 0 % hyuz=548) NEUTROPHILS ABSOLUTE COUNT (BEAKER) (test 3.20 K/ L 1.80-8.00 ctue=620) LYMPHOCYTES ABSOLUTE COUNT (BEAKER) (test 2.10 K/ L 1.48-4.50 nzqd=959) MONOCYTES ABSOLUTE COUNT (BEAKER) (test 0.60 K/ L 0.00-1.30 uumj=803) EOSINOPHILS ABSOLUTE COUNT (BEAKER) (test 0.20 K/ L 0.00-0.50 qbaa=608) BASOPHILS ABSOLUTE COUNT (BEAKER) (test 0.00 K/ L 0.00-0.20 yqdk=918) (MANUAL DIFFERENTIAL)2018-04-21 08:19:00 Test Item Value Reference Range Comments TOTAL COUNTED (BEAKER) (test vpev=7385) WBC MORPHOLOGY (BEAKER) (test vdey=454) Normal PLT MORPHOLOGY (BEAKER) (test xkqp=629) Normal ANISOCYTOSIS (BEAKER) (test mnqh=760) 2+ moderate HYPOCHROMIA (BEAKER) (test xrtj=927) 2+ moderate MICROCYTES (BEAKER) (test ikgg=518) 1+ few POLYCHROMATOPHILLIC RBCS(BEAKER) (test qhsx=564) 1+ few BASIC METABOLIC [id number] 08:00:00 Test Item Value Reference Range Comments SODIUM (BEAKER) (test 141 meq/L 135-148 qzjz=304) POTASSIUM (BEAKER) (test 3.6 meq/L 3.6-5.5 jykh=789) CHLORIDE (BEAKER) (test 109 meq/L 98-106 zhaj=773) CO2 (BEAKER) (test 24 meq/L 20-29 dyxd=317) BLOOD UREA NITROGEN 9 mg/dL 10-26 (BEAKER) (test mvqh=909) CREATININE (BEAKER) (test 0.76 mg/dL 0.50-1.20 ineu=150) GLUCOSE RANDOM (BEAKER) 86 mg/dL 70-110 (test xdzz=293) CALCIUM (BEAKER) (test 9.0 mg/dL 8.5-10.5 xpew=734) EGFR (BEAKER) (test 110 mL/min/1.73 sq m ESTIMATED GFR IS NOT xtjh=0454) ACCURATE CREATININE CLEARANCE IN PREDICTING GLOMERULAR FILTRATION RATE. ESTIMATED GFR IS NOT APPLICABLE FOR DIALYSIS PATIENTS. PROTHROMBIN TIME/[id number] 07:55:00 Test Item Value Reference Range Comments PROTIME (BEAKER) (test mhyj=797) 11.4 sec 9.3-12.0 INR (BEAKER) (test qrqp=278) 1.1 <=5.9 RECOMMENDED COUMADIN/WARFARIN INR THERAPY RANGESSTANDARD DOSE: 2.0 - 3.0 Includes: PROPHYLAXIS forvenous thrombosis, systemic embolization; TREATMENT for venous thrombosis and/or pulmonary embolus.HIGH RISK: Target INR is 2.5-3.5 for patients with mechanical heart valves.Final Information (Auto Output)Final Information (Auto Output)[id number] 07:52:00 Test Item Value Reference Range Comments PARTIAL THROMBOPLASTIN TIME (BEAKER) (test 71.6 sec 23.0-35.0 xfhr=595) Final Information (Auto Output)[id number] 22:28:00 Test Item Value Reference Range Comments PARTIAL THROMBOPLASTIN TIME (BEAKER) (test 119.3 sec 23.0-35.0 wwno=568) Final Information (Auto Output)CBC (HEMOGRAM ONLY)2018-04-20 21:32:00 Test Item Value Reference Range Comments WHITE BLOOD CELL COUNT (BEAKER) (test bnuj=997) 7.0 K/ L 4.0-10.0 RED BLOOD CELL COUNT (BEAKER) (test nvcx=602) 3.89 M/ L 4.20-5.80 HEMOGLOBIN (BEAKER) (test mqom=609) 8.8 GM/DL 13.0-16.8 HEMATOCRIT (BEAKER) (test exfl=791) 27.6 % 40.0-50.0 MEAN CORPUSCULAR VOLUME (BEAKER) (test undc=513) 70.8 fL 82.0-98.0 MEAN CORPUSCULAR HEMOGLOBIN (BEAKER) (test 22.6 pg 27.0-33.0 pdsm=919) MEAN CORPUSCULAR HEMOGLOBIN CONC (BEAKER) (test 32.0 GM/DL 32.0-36.0 aeft=269) RED CELL DISTRIBUTION WIDTH (BEAKER) (test 20.0 % 10.3-14.2 ttmv=878) PLATELET COUNT (BEAKER) (test plzx=404) 360 K/CU MM 150-430 MEAN PLATELET VOLUME (BEAKER) (test qbpf=650) 7.4 fL 6.5-10.5 [id number] 12:43:00 Test Item Value Reference Range Comments PARTIAL THROMBOPLASTIN TIME (BEAKER) (test 72.2 sec 23.0-35.0 sfpv=990) Final Information (Auto Output)CARDIOLIPIN ANTIBODIES, IGG AND [id number] 12: 16:00 Test Item Value Reference Range Comments ANTICARDIOLIPIN IGG ANTIBODY (BEAKER) (test < GPL <20.0 fvut=797) ANTICARDIOLIPIN IGM ANTIBODY (BEAKER) (test 0.5 MPL <20.0 mufw=857) Anticardiolipin IgG Result Interpretation: <20.0 GPL Normal>/=20.0 GPL PositiveAnticardiolipin IgM Result Interpretation: <20.0 MPL Normal>/= 20.0 MPL PositiveCBC W/PLT COUNT & AUTO [id number] 08:58:00 Test Item Value Reference Range Comments WHITE BLOOD CELL COUNT (BEAKER) (test xmef=073) 6.4 K/ L 4.0-10.0 RED BLOOD CELL COUNT (BEAKER) (test smdf=541) 4.00 M/ L 4.20-5.80 HEMOGLOBIN (BEAKER) (test zoxj=168) 9.0 GM/DL 13.0-16.8 HEMATOCRIT (BEAKER) (test jzrh=738) 28.6 % 40.0-50.0 MEAN CORPUSCULAR VOLUME (BEAKER) (test hezr=944) 71.7 fL 82.0-98.0 MEAN CORPUSCULAR HEMOGLOBIN (BEAKER) (test 22.5 pg 27.0-33.0 mpsh=526) MEAN CORPUSCULAR HEMOGLOBIN CONC (BEAKER) (test 31.4 GM/DL 32.0-36.0 dqqz=480) RED CELL DISTRIBUTION WIDTH (BEAKER) (test 21.7 % 10.3-14.2 fsur=933) PLATELET COUNT (BEAKER) (test dqmb=128) 355 K/CU MM 150-430 MEAN PLATELET VOLUME (BEAKER) (test hulj=146) 7.1 fL 6.5-10.5 NUCLEATED RED BLOOD CELLS (BEAKER) (test 0 /100 WBC 0-0 ypux=595) NEUTROPHILS RELATIVE PERCENT (BEAKER) (test 48 % ctee=426) LYMPHOCYTES RELATIVE PERCENT (BEAKER) (test 36 % sxez=210) MONOCYTES RELATIVE PERCENT (BEAKER) (test 12 % hfsw=339) EOSINOPHILS RELATIVE PERCENT (BEAKER) (test 4 % psih=564) BASOPHILS RELATIVE PERCENT (BEAKER) (test 0 % gcqi=733) NEUTROPHILS ABSOLUTE COUNT (BEAKER) (test 3.10 K/ L 1.80-8.00 sdtp=493) LYMPHOCYTES ABSOLUTE COUNT (BEAKER) (test 2.30 K/ L 1.48-4.50 xhqq=334) MONOCYTES ABSOLUTE COUNT (BEAKER) (test 0.80 K/ L 0.00-1.30 yzqh=672) EOSINOPHILS ABSOLUTE COUNT (BEAKER) (test 0.20 K/ L 0.00-0.50 dtlw=050) BASOPHILS ABSOLUTE COUNT (BEAKER) (test 0.00 K/ L 0.00-0.20 whub=840) (MANUAL DIFFERENTIAL)2018-04-20 08:58:00 Test Item Value Reference Range Comments TOTAL COUNTED (BEAKER) (test lroa=9729) WBC MORPHOLOGY (BEAKER) (test kzcv=037) Normal PLT MORPHOLOGY (BEAKER) (test sstm=501) Normal ANISOCYTOSIS (BEAKER) (test jikd=968) 1+ few HYPOCHROMIA (BEAKER) (test mxol=538) 1+ few POIKILOCYTES (BEAKER) (test nhkb=438) 1+ few POLYCHROMATOPHILLIC RBCS(BEAKER) (test zdsp=063) 1+ few BASIC METABOLIC [id number] 08:26:00 Test Item Value Reference Range Comments SODIUM (BEAKER) (test 140 meq/L 135-148 prmv=642) POTASSIUM (BEAKER) (test 3.9 meq/L 3.6-5.5 hwdp=823) CHLORIDE (BEAKER) (test 107 meq/L 98-106 xwqp=626) CO2 (BEAKER) (test 24 meq/L 20-29 dlms=875) BLOOD UREA NITROGEN 12 mg/dL 10-26 (BEAKER) (test tmnh=991) CREATININE (BEAKER) (test 0.76 mg/dL 0.50-1.20 kyrd=223) GLUCOSE RANDOM (BEAKER) 92 mg/dL 70-110 (test deyu=654) CALCIUM (BEAKER) (test 8.9 mg/dL 8.5-10.5 sbuy=861) EGFR (BEAKER) (test 110 mL/min/1.73 sq m ESTIMATED GFR IS NOT ccnp=3204) ACCURATE CREATININE CLEARANCE IN PREDICTING GLOMERULAR FILTRATION RATE. ESTIMATED GFR IS NOT APPLICABLE FOR DIALYSIS PATIENTS. PROTHROMBIN [id number] 08:16:00 Test Item Value Reference Range Comments PROTIME (BEAKER) (test uvjz=593) 10.6 sec 9.3-12.0 INR (BEAKER) (test lvkw=147) 1.0 <=5.9 RECOMMENDED COUMADIN/WARFARIN INR THERAPY RANGESSTANDARD DOSE: 2.0 - 3.0 Includes: PROPHYLAXIS forvenous thrombosis, systemic embolization; TREATMENT for venous thrombosis and/or pulmonary embolus.HIGH RISK: Target INR is 2.5-3.5 for patients with mechanical heart valves.Final Information (Auto Output)Final Information (Auto Output)[id number] 08:16:00 Test Item Value Reference Range Comments D-DIMER QUANTITATIVE (BEAKER) (test csgy=375) 0.93 mg/L <0.50 REGARDING D-DIMER RESULTS: The 98% NPV (Negative Predictive Value) for DVT/PE exclusion is 0.50 mg/LFEU as suggested by the bowl sander and as approved by the FDA.Final Information (Auto Output)[id number] 02:51:00 Test Item Value Reference Range Comments PARTIAL THROMBOPLASTIN TIME (BEAKER) (test okgi=515) > sec 23.0-35.0 Final Information (Auto Output)[id number] 17:54:00 Test Item Value Reference Range Comments PARTIAL THROMBOPLASTIN TIME (BEAKER) (test 72.2 sec 23.0-35.0 getd=116) Final Information (Auto Output)ANTITHROMBIN [id number] 11:29:00 Test Item Value Reference Range Comments ANTITHROMBIN III ACTIVITY (BEAKER) (test dswt=481) 81.0 % 80.0-120.0 CBC W/PLT COUNT & AUTO [id number] 10:34:00 Test Item Value Reference Range Comments WHITE BLOOD CELL COUNT (BEAKER) (test jztt=085) 6.6 K/ L 4.0-10.0 RED BLOOD CELL COUNT (BEAKER) (test rrhh=655) 3.93 M/ L 4.20-5.80 HEMOGLOBIN (BEAKER) (test ckcl=638) 8.9 GM/DL 13.0-16.8 HEMATOCRIT (BEAKER) (test kykc=301) 28.3 % 40.0-50.0 MEAN CORPUSCULAR VOLUME (BEAKER) (test dnao=914) 71.9 fL 82.0-98.0 MEAN CORPUSCULAR HEMOGLOBIN (BEAKER) (test 22.5 pg 27.0-33.0 rhrq=805) MEAN CORPUSCULAR HEMOGLOBIN CONC (BEAKER) (test 31.3 GM/DL 32.0-36.0 nshd=540) RED CELL DISTRIBUTION WIDTH (BEAKER) (test 21.0 % 10.3-14.2 ghml=674) PLATELET COUNT (BEAKER) (test fogz=499) 339 K/CU MM 150-430 MEAN PLATELET VOLUME (BEAKER) (test nvgb=411) 7.2 fL 6.5-10.5 NUCLEATED RED BLOOD CELLS (BEAKER) (test 0 /100 WBC 0-0 qeev=149) NEUTROPHILS RELATIVE PERCENT (BEAKER) (test 52 % fdsy=158) LYMPHOCYTES RELATIVE PERCENT (BEAKER) (test 32 % dvlz=353) MONOCYTES RELATIVE PERCENT (BEAKER) (test 11 % bsav=551) EOSINOPHILS RELATIVE PERCENT (BEAKER) (test 4 % gwfc=782) BASOPHILS RELATIVE PERCENT (BEAKER) (test 0 % rven=998) NEUTROPHILS ABSOLUTE COUNT (BEAKER) (test 3.40 K/ L 1.80-8.00 lszi=525) LYMPHOCYTES ABSOLUTE COUNT (BEAKER) (test 2.10 K/ L 1.48-4.50 ovzf=487) MONOCYTES ABSOLUTE COUNT (BEAKER) (test 0.70 K/ L 0.00-1.30 bdra=701) EOSINOPHILS ABSOLUTE COUNT (BEAKER) (test 0.30 K/ L 0.00-0.50 uttk=229) BASOPHILS ABSOLUTE COUNT (BEAKER) (test 0.00 K/ L 0.00-0.20 huvs=867) (MANUAL DIFFERENTIAL)2018-04-19 10:34:00 Test Item Value Reference Range Comments TOTAL COUNTED (BEAKER) (test ygiu=6743) WBC MORPHOLOGY (BEAKER) (test delx=883) Normal PLT MORPHOLOGY (BEAKER) (test keon=835) Normal ANISOCYTOSIS (BEAKER) (test rtmq=961) 3+ many HYPOCHROMIA (BEAKER) (test npdb=852) 2+ moderate MICROCYTES (BEAKER) (test pdei=637) 1+ few TROPONIN [id number] 09:42:00 Test Item Value Reference Range Comments TROPONIN I (BEAKER) (test kfif=153) < ng/mL 0.00-0.15 Troponin I (TnI) levels [...] acute neurological disease, and persistent tachyarrhythmia.BASIC METABOLIC [id number] 09:34:00 Test Item Value Reference Range Comments SODIUM (BEAKER) (test 140 meq/L 135-148 knox=277) POTASSIUM (BEAKER) (test 3.8 meq/L 3.6-5.5 sezh=649) CHLORIDE (BEAKER) (test 107 meq/L 98-106 pqig=228) CO2 (BEAKER) (test 25 meq/L 20-29 iblr=713) BLOOD UREA NITROGEN 12 mg/dL 10-26 (BEAKER) (test mrli=274) CREATININE (BEAKER) (test 0.83 mg/dL 0.50-1.20 luac=705) GLUCOSE RANDOM (BEAKER) 106 mg/dL 70-110 (test okkh=679) CALCIUM (BEAKER) (test 9.1 mg/dL 8.5-10.5 hgxe=066) EGFR (BEAKER) (test 99 mL/min/1.73 sq m ESTIMATED GFR IS NOT rxey=6282) ACCURATE CREATININE CLEARANCE IN PREDICTING GLOMERULAR FILTRATION RATE. ESTIMATED GFR IS NOT APPLICABLE FOR DIALYSIS PATIENTS. [id number] 05:06:00 Test Item Value Reference Range Comments PROTIME (BEAKER) (test qfcd=551) 10.0 sec 9.3-12.0 INR (BEAKER) (test vamr=639) 0.9 <=5.9 PARTIAL THROMBOPLASTIN TIME (BEAKER) (test 26.5 sec 23.0-35.0 jxje=792) RECOMMENDED COUMADIN/WARFARIN INR THERAPY RANGESSTANDARD DOSE: 2.0 - 3.0 Includes: PROPHYLAXIS forvenous thrombosis, systemic embolization; TREATMENT for venous thrombosis and/or pulmonary embolus.HIGH RISK: Target INR is 2.5-3.5 for patients with mechanical heart valves.Final Information (Auto Output)Final Information (Auto Output)Final Information (Auto Output)TROPONIN [id number] 20: 04:00 Test Item Value Reference Range Comments TROPONIN I (BEAKER) (test qyla=601) < ng/mL 0.00-0.15 Troponin I (TnI) levels [...] failure, acidosis, acute neurological disease, and persistent tachyarrhythmia.[id number] 20:01:00 Test Item Value Reference Range Comments HOMOCYSTEINE (BEAKER) (test lmmq=542) 6.1 umol/L 5.1-15.4 VITAMIN B12 AND [id number] 18:10:00 Test Item Value Reference Range Comments VITAMIN B12 (BEAKER) (test jzsq=905) 497 pg/mL 213-816 FOLATE (BEAKER) (test bfxq=362) 6.5 ng/mL >=7.0 IRON, TIBC, % SAT. (WITHOUT FERRITIN)2018-04-18 17:43:00 Test Item Value Reference Range Comments IRON (BEAKER) (test epzg=951) 16 ug/dL 40-160 TOTAL IRON BINDING CAPACITY (BEAKER) (test 468 ug/dL 250-450 znit=428) IRON % SATURATION (2) (BEAKER) (test sdua=8473) 3 % 20-55 [id number] 13:31:00 Test Item Value Reference Range Comments PROTIME (BEAKER) (test uxzr=845) 10.9 sec 9.3-12.0 INR (BEAKER) (test nzqc=230) 1.0 <=5.9 PARTIAL THROMBOPLASTIN TIME (BEAKER) (test 131.9 sec 23.0-35.0 aitf=157) RECOMMENDED COUMADIN/WARFARIN INR THERAPY RANGESSTANDARD DOSE: 2.0 - 3.0 Includes: PROPHYLAXIS forvenous thrombosis, systemic embolization; TREATMENT for venous thrombosis and/or pulmonary embolus.HIGH RISK: Target INR is 2.5-3.5 for patients with mechanical heart valves.Final Information (Auto Output)Final Information (Auto Output)Final Information (Auto Output)PATIENT ON BLOOD THINNER PER [facility] WRIGHT [id number] DOPPLER LEGS, [id number] 12:31: 00Reason for exam:->PEFINAL REPORT History: Lower [...] Tapia Verified Date/Time: 04/18/2018 12:31:58 Reading Location: [facility] Radiology Reading Room Electronically signed by: TREMAYNE TAPIA M.D. on 06/2018 12:31 [id number] 12:28:00 Test Item Value Reference Range Comments FERRITIN (BEAKER) (test bjnf=931) 8 ng/mL 22-322 LACTATE DEHYDROGENASE (LDH)2018-04-18 11:27:00 Test Item Value Reference Range Comments LACTATE DEHYDROGENASE (BEAKER) (test vfdf=777) 174 U/L 107-206 RETICULOCYTE [id number] 11:11:00 Test Item Value Reference Range Comments RETICULOCYTE COUNT PCT (BEAKER) (test royl=077) 1.5 % 0.4-2.9 TROPONIN [id number] 06:08:00 Test Item Value Reference Range Comments TROPONIN I (BEAKER) (test icbd=087) < ng/mL 0.00-0.15 Troponin I (TnI) levels [...] acute neurological disease, and persistent tachyarrhythmia.BASIC METABOLIC [id number] 06:00:00 Test Item Value Reference Range Comments SODIUM (BEAKER) (test 138 meq/L 135-148 evts=086) POTASSIUM (BEAKER) (test 3.7 meq/L 3.6-5.5 vrqq=373) CHLORIDE (BEAKER) (test 107 meq/L 98-106 glvd=679) CO2 (BEAKER) (test 24 meq/L 20-29 bkbf=857) BLOOD UREA NITROGEN 8 mg/dL 10-26 (BEAKER) (test fcyl=966) CREATININE (BEAKER) (test 0.84 mg/dL 0.50-1.20 dtnq=139) GLUCOSE RANDOM (BEAKER) 86 mg/dL 70-110 (test pobc=081) CALCIUM (BEAKER) (test 8.2 mg/dL 8.5-10.5 nuxp=396) EGFR (BEAKER) (test 98 mL/min/1.73 sq m ESTIMATED GFR IS NOT muap=5944) ACCURATE CREATININE CLEARANCE IN PREDICTING GLOMERULAR FILTRATION RATE. ESTIMATED GFR IS NOT APPLICABLE FOR DIALYSIS PATIENTS. [id number] 01:22:00 Test Item Value Reference Range Comments PARTIAL THROMBOPLASTIN TIME (BEAKER) (test 23.3 seconds 23.0-35.0 fydq=373) CBC (HEMOGRAM ONLY)2018-04-18 01:12:00 Test Item Value Reference Range Comments WHITE BLOOD CELL COUNT (BEAKER) (test zrsb=451) 7.5 K/ L 4.0-10.0 RED BLOOD CELL COUNT (BEAKER) (test wudn=480) 3.77 M/ L 4.20-5.80 HEMOGLOBIN (BEAKER) (test raob=012) 8.0 GM/DL 13.0-16.8 HEMATOCRIT (BEAKER) (test yyyb=895) 26.3 % 40.0-50.0 MEAN CORPUSCULAR VOLUME (BEAKER) (test opby=666) 69.7 fL 82.0-98.0 MEAN CORPUSCULAR HEMOGLOBIN (BEAKER) (test 21.2 pg 27.0-33.0 sbhh=533) MEAN CORPUSCULAR HEMOGLOBIN CONC (BEAKER) (test 30.4 GM/DL 32.0-36.0 dfay=029) RED CELL DISTRIBUTION WIDTH (BEAKER) (test 19.2 % 10.3-14.2 ufvv=254) PLATELET COUNT (BEAKER) (test svbr=601) 395 K/CU MM 150-430 MEAN PLATELET VOLUME (BEAKER) (test wmji=957) 7.6 fL 6.5-10.5 CT, CHEST WITH IV CONTRAST- PE TEST [id number] 23:21:00Reason for exam:-& gt;CHEST PAINWhat is the [...] discussed with Dr. Flores. Signed: [facility] Chauhan [facility] Verified Date/Time: 04/17/2018 23:21:52 Reading Location: [address] Reading Room Electronically signed by: ERON CHAUHAN M.D. on 05/2018 11:21 PMCREATINE KINASE (CK), TOTAL AND [id number] 22:25:00 Test Item Value Reference Range Comments CREATINE KINASE TOTAL (BEAKER) (test vdqj=467) 87 U/L 40-250 CREATINE KINASE-MB (BEAKER) (test tfwa=313) 1.1 ng/mL 0.0-4.9 CREATINE KINASE-MB INDEX (BEAKER) (test axqt=628) 1.3 % CK-MB Reference Range:<5 Normal5-10 Borderline>10 AbnormalTSH/FREE T4 IF [id number] 22:07:00 Test Item Value Reference Range Comments THYROID STIMULATING HORMONE (BEAKER) (test 0.71 uIU/mL 0.35-5.50 teww=671) B-TYPE NATRIURETIC FACTOR (BNP)2018-04-17 21:44:00 Test Item Value Reference Range Comments B-TYPE NATRIURETIC PEPTIDE (BEAKER) (test klrh=763) 8 pg/mL 0-100 TROPONIN [id number] 21:43:00 Test Item Value Reference Range Comments TROPONIN I (BEAKER) (test ufpx=553) < ng/mL 0.00-0.15 Troponin I (TnI) levels [...] acute neurological disease, and persistent tachyarrhythmia.BASIC METABOLIC [id number] 21:39:00 Test Item Value Reference Range Comments SODIUM (BEAKER) (test 140 meq/L 135-148 oiet=443) POTASSIUM (BEAKER) (test 3.6 meq/L 3.6-5.5 zdgw=598) CHLORIDE (BEAKER) (test 106 meq/L 98-106 uoyx=927) CO2 (BEAKER) (test 21 meq/L 20-29 ajry=246) BLOOD UREA NITROGEN 7 mg/dL 10-26 (BEAKER) (test wtja=951) CREATININE (BEAKER) (test 1.00 mg/dL 0.50-1.20 wqay=485) GLUCOSE RANDOM (BEAKER) 140 mg/dL 70-110 (test acxc=452) CALCIUM (BEAKER) (test 9.1 mg/dL 8.5-10.5 omkw=875) EGFR (BEAKER) (test 80 mL/min/1.73 sq m ESTIMATED GFR IS NOT xswq=9526) ACCURATE CREATININE CLEARANCE IN PREDICTING GLOMERULAR FILTRATION RATE. ESTIMATED GFR IS NOT APPLICABLE FOR DIALYSIS PATIENTS. PROTHROMBIN [id number] 21:28:00 Test Item Value Reference Range Comments PROTIME (BEAKER) (test mmiz=236) 10.1 sec 9.3-12.0 INR (BEAKER) (test ptqx=736) 0.9 <=5.9 RECOMMENDED COUMADIN/WARFARIN INR THERAPY RANGESSTANDARD DOSE: 2.0 - 3.0 Includes: PROPHYLAXIS forvenous thrombosis, systemic embolization; TREATMENT for venous thrombosis and/or pulmonary embolus.HIGH RISK: Target INR is 2.5-3.5 for patients with mechanical heart valves.Final Information (Auto Output)Final Information (Auto Output)CBC W/PLT COUNT & AUTO [id number] 21:25 :00 Test Item Value Reference Range Comments WHITE BLOOD CELL COUNT (BEAKER) (test gnrp=893) 5.7 K/ L 4.0-10.0 RED BLOOD CELL COUNT (BEAKER) (test cogt=446) 3.76 M/ L 4.20-5.80 HEMOGLOBIN (BEAKER) (test lkyg=588) 7.9 GM/DL 13.0-16.8 HEMATOCRIT (BEAKER) (test akox=271) 25.9 % 40.0-50.0 MEAN CORPUSCULAR VOLUME (BEAKER) (test vwdz=622) 69.0 fL 82.0-98.0 MEAN CORPUSCULAR HEMOGLOBIN (BEAKER) (test 21.0 pg 27.0-33.0 vapi=857) MEAN CORPUSCULAR HEMOGLOBIN CONC (BEAKER) (test 30.4 GM/DL 32.0-36.0 mgkj=863) RED CELL DISTRIBUTION WIDTH (BEAKER) (test 20.9 % 10.3-14.2 swgq=267) PLATELET COUNT (BEAKER) (test wbno=928) 411 K/CU MM 150-430 MEAN PLATELET VOLUME (BEAKER) (test nvjw=475) 6.9 fL 6.5-10.5 NUCLEATED RED BLOOD CELLS (BEAKER) (test 0 /100 WBC 0-0 gmmb=309) NEUTROPHILS RELATIVE PERCENT (BEAKER) (test 49 % uzqi=183) LYMPHOCYTES RELATIVE PERCENT (BEAKER) (test 35 % nncw=938) MONOCYTES RELATIVE PERCENT (BEAKER) (test 12 % jdfo=474) EOSINOPHILS RELATIVE PERCENT (BEAKER) (test 4 % wfeo=752) BASOPHILS RELATIVE PERCENT (BEAKER) (test 0 % zrzz=203) NEUTROPHILS ABSOLUTE COUNT (BEAKER) (test 2.80 K/ L 1.80-8.00 cikv=594) LYMPHOCYTES ABSOLUTE COUNT (BEAKER) (test 2.00 K/ L 1.48-4.50 iung=410) MONOCYTES ABSOLUTE COUNT (BEAKER) (test 0.70 K/ L 0.00-1.30 hilo=141) EOSINOPHILS ABSOLUTE COUNT (BEAKER) (test 0.20 K/ L 0.00-0.50 qkyw=962) BASOPHILS ABSOLUTE COUNT (BEAKER) (test 0.00 K/ L 0.00-0.20 lvkc=564) ERYTHROCYTE SED [id number] 22:37:00 Test Item Value Reference Range Comments [...] old=0-20 mm/hr Males 50-999 years old=0-25 mm/hr [id number] 22:06:00 Test Item Value Reference Range Comments [...] mL/min/1.73m\\S\\2 EGFR if Non- >60 Estimated Glomerular [place] (test mL/min/1.73m\\S\\2 Filtration Rate (eGFR) code=EGFRNA) Reference [...] chronic kidney failure. XR CHEST AP/PA 1 [id number] 22:01:15Procedure: AP View ChestOrder date: 2017 9:16 PMOrdering Provider: ILIANA Robertsoninical Indication: chest pain, Chest painComparison: January 29, 2018Findings:Stable right-sided Port-A- Cath.Cardiomediastinal silhouette is within normal limits.The lungs are clear. No large pleural effusions or pneumothorax. Osseousstructures are nonacute.No evidence of active tuberculosis.Impression:No acute cardiopulmonary process.This final report was electronically signed by Dr Cesar Beach MD 04/159:54 PMDictated By: CESAR BEACHDate: 04/15/2018 22:01D-DIMER [id number] 21:53:00 Test Item Value Reference Range Comments D DIMER (test code=D 1.56 mg/L FEU 0.19-0.50 METHOD CHANGE: 11/16/2012 Due to DIM) the discontinued mehodology currently in use, a change in the testing method is necessary. The Reference Ranges will change dramatically, and results are obtained by the observance of clotting activation mesured on the [employer] instruments. This same methodology is currently in [...] probability of thromboembolic disease. CBC WITH AUTO [id number] 21:43:00 Test Item Value Reference Range Comments [...] 0.0-0.4 AUTO DIFFCBC W/PLT COUNT & AUTO [id number] 08:53:00 Test Item Value Reference Range Comments WHITE BLOOD CELL COUNT (BEAKER) (test xeuz=331) 6.9 K/ L 4.0-10.0 RED BLOOD CELL COUNT (BEAKER) (test flne=337) 3.56 M/ L 4.20-5.80 HEMOGLOBIN (BEAKER) (test mckq=301) 8.5 GM/DL 13.0-16.8 HEMATOCRIT (BEAKER) (test mwjp=230) 26.5 % 40.0-50.0 MEAN CORPUSCULAR VOLUME (BEAKER) (test qakv=489) 74.5 fL 82.0-98.0 MEAN CORPUSCULAR HEMOGLOBIN (BEAKER) (test 23.8 pg 27.0-33.0 figp=434) MEAN CORPUSCULAR HEMOGLOBIN CONC (BEAKER) (test 31.9 GM/DL 32.0-36.0 xuff=036) RED CELL DISTRIBUTION WIDTH (BEAKER) (test 20.1 % 10.3-14.2 pwyo=731) PLATELET COUNT (BEAKER) (test hkyt=097) 372 K/CU MM 150-430 MEAN PLATELET VOLUME (BEAKER) (test tcql=712) 6.8 fL 6.5-10.5 NUCLEATED RED BLOOD CELLS (BEAKER) (test 0 /100 WBC 0-0 fxue=571) NEUTROPHILS RELATIVE PERCENT (BEAKER) (test 55 % yknl=688) LYMPHOCYTES RELATIVE PERCENT (BEAKER) (test 30 % uouc=815) MONOCYTES RELATIVE PERCENT (BEAKER) (test 13 % oyrb=901) EOSINOPHILS RELATIVE PERCENT (BEAKER) (test 2 % zuaz=247) BASOPHILS RELATIVE PERCENT (BEAKER) (test 0 % bybp=017) NEUTROPHILS ABSOLUTE COUNT (BEAKER) (test 3.80 K/ L 1.80-8.00 ndkh=688) LYMPHOCYTES ABSOLUTE COUNT (BEAKER) (test 2.10 K/ L 1.48-4.50 nkxo=489) MONOCYTES ABSOLUTE COUNT (BEAKER) (test 0.90 K/ L 0.00-1.30 ynha=148) EOSINOPHILS ABSOLUTE COUNT (BEAKER) (test 0.10 K/ L 0.00-0.50 qvew=635) BASOPHILS ABSOLUTE COUNT (BEAKER) (test 0.00 K/ L 0.00-0.20 wwpv=142) (MANUAL DIFFERENTIAL)2018-02-01 08:53:00 Test Item Value Reference Range Comments TOTAL COUNTED (BEAKER) (test bjzg=8043) WBC MORPHOLOGY (BEAKER) (test egbq=557) Normal PLT MORPHOLOGY (BEAKER) (test elfq=401) Normal ANISOCYTOSIS (BEAKER) (test sgse=942) 2+ moderate HYPOCHROMIA (BEAKER) (test pkpb=762) 3+ many MICROCYTES (BEAKER) (test bofs=015) 1+ few TROPONIN [id number] 07:05:00 Test Item Value Reference Range Comments TROPONIN I (BEAKER) (test zpfp=265) < ng/mL 0.00-0.15 Troponin I (TnI) levels [...] acute neurological disease, and persistent tachyarrhythmia.BASIC METABOLIC [id number] 06:55:00 Test Item Value Reference Range Comments SODIUM (BEAKER) (test 140 meq/L 135-148 vngb=673) POTASSIUM (BEAKER) (test 3.8 meq/L 3.6-5.5 nded=125) CHLORIDE (BEAKER) (test 107 meq/L 98-106 jddh=654) CO2 (BEAKER) (test 25 meq/L 20-29 jasy=189) BLOOD UREA NITROGEN 11 mg/dL 10-26 (BEAKER) (test dznu=916) CREATININE (BEAKER) (test 0.80 mg/dL 0.50-1.20 qutq=707) GLUCOSE RANDOM (BEAKER) 91 mg/dL 70-110 (test cwst=619) CALCIUM (BEAKER) (test 8.6 mg/dL 8.5-10.5 itsj=420) EGFR (BEAKER) (test 104 mL/min/1.73 sq m ESTIMATED GFR IS NOT cuvh=0389) ACCURATE CREATININE CLEARANCE IN PREDICTING GLOMERULAR FILTRATION RATE. ESTIMATED GFR IS NOT APPLICABLE FOR DIALYSIS PATIENTS. [id number] 06:49:00 Test Item Value Reference Range Comments MAGNESIUM (BEAKER) (test uvsk=251) 2.4 mg/dL 1.5-3.0 TROPONIN [id number] 00:03:00 Test Item Value Reference Range Comments TROPONIN I (BEAKER) (test ibpp=596) < ng/mL 0.00-0.15 Troponin I (TnI) levels [...] Range Comments B-TYPE NATRIURETIC PEPTIDE (BEAKER) (test wewm=661) 5 pg/mL 0-100 LIPID [id number] 23:57:00 Test Item Value Reference Range Comments TRIGLYCERIDES (BEAKER) (test toxj=013) 53 mg/dL CHOLESTEROL (BEAKER) (test esft=286) 183 mg/dL HDL CHOLESTEROL (BEAKER) (test yufl=285) 62 mg/dL LDL CHOLESTEROL CALCULATED (BEAKER) (test 110 mg/dL vetj=373) Triglyceride Reference Range: Low Risk <150 Borderline 150- 199 High Risk 200-499 Very High Risk >=500Cholesterol Reference Range: Low Risk <200 Borderline 200-239 High Risk > 240HDL Cholesterol Reference Range: Low Risk >=60 High Risk <40LDL Cholesterol Reference Range: Optimal <100 Near Optimal 100-129 Borderline 130-159 High 160-189 Very High >=190ED2 CT ANGIO CHEST W [id number] 11:04:2220 g Cathlon Above the Antecubital or [...] AMDictated By: CESAR BEACHDate: 01/29/2018 11:04ED2 TROPONIN-I [id number] 10:56:00 Test Item Value Reference Range Comments Troponin-I (test 0.000 ng/ml 0.000-0.034 The 99th Percentile URL is 0.034 code=TROP) ng/mL. The [employer] Society of Cardiology/[place] [employer] (ESC/ACC) and the National [...] 24 hours after the clinical event. ED2 [id number] 10:51:00 Test Item Value Reference Range Comments [...] Protein (test code=TP) 6.9 gm/dl 6.4-8.1 ED2 [id number] 10:51:00 Test Item Value Reference Range Comments Pro-BNP(B-Peptide) (test <15 0-125 THE METHODOLOGY FOR DETECTION OF code=PROBNP) B-NATRIURETIC PEPTIDE HAS BEEN CHANGED TO "NT pro-BNP". THE NORMAL RANGES HAVE CHANGED. PLEASE NOTE THAT RANGES ARE DEFINED BY THE AGE OF THE PATIENT. (<75 years old=0-125 pg/ml 75years and older=0-450pg/ml). VALUES ARE NOT INTERCHANGEABLE BETWEEN METHODS. 10-18-2006 ED2 [id number] 10:50:00 Test Item Value Reference Range Comments [...] fL 8.0-11.0 ED2 XR CHEST 2 PA [id number] 09:49:15Procedure: ED2 XR CHEST 2 PA LATERALOrder date: 01/29/2018 9:18 AMOrdering Provider: ITALIA RITTERMONSClinical Indication: CHEST PAIN: Pain-ChestComparison: November 14, 2017Findings:Stable nggzp-tsagvLkxi-X-Cath.Cardiomediastinal silhouette is within normal limits.The lungs are clear.No pleural effusion or pneumothorax. Osseous structures are nonacute.No evidence of active tuberculosis.Impression:Stable and nonacute two- view chest.This final report was electronically signed by Dr Cesar Beach MD 9:43 AMDictated By: CESAR BEACHDate: 01/29/2018 09:49CT, CHEST WITH IV CONTRAST- PE TEST [id number] 20:29:00FINAL REPORT HISTORY: chest pain COMPARISON : [...] MDReport Verified Date/Time: 01/24/2018 20:29:12 Reading Location: [address] Consult Reading Room 08: 29 [facility] [id number] 17:45:00 Test Item Value Reference Range Comments SODIUM (BEAKER) (test 138 meq/L 135-148 xadk=629) POTASSIUM (BEAKER) (test 3.7 meq/L 3.6-5.5 ritt=879) CHLORIDE (BEAKER) (test 104 meq/L 98-106 rmmp=395) CO2 (BEAKER) (test 24 meq/L 20-29 aisq=599) BLOOD UREA NITROGEN 18 mg/dL 10-26 (BEAKER) (test tplp=597) CREATININE (BEAKER) (test 0.90 mg/dL 0.50-1.20 fypd=877) GLUCOSE RANDOM (BEAKER) 119 mg/dL 70-110 (test fynx=058) CALCIUM (BEAKER) (test 8.5 mg/dL 8.5-10.5 tnye=211) EGFR (BEAKER) (test 90 mL/min/1.73 sq m ESTIMATED GFR IS NOT rncb=5946) ACCURATE CREATININE CLEARANCE IN PREDICTING GLOMERULAR FILTRATION RATE. ESTIMATED GFR IS NOT APPLICABLE FOR DIALYSIS PATIENTS. TROPONIN [id number] 13:54:00 Test Item Value Reference Range Comments TROPONIN I (BEAKER) (test mlot=698) < ng/mL 0.00-0.15 Troponin I (TnI) levels [...] and persistent tachyarrhythmia.CREATINE KINASE (CK), TOTAL AND [id number] 13:53:00 Test Item Value Reference Range Comments CREATINE KINASE TOTAL (BEAKER) (test nvoi=251) 53 U/L 40-250 CREATINE KINASE-MB (BEAKER) (test skck=965) 0.7 ng/mL 0.0-4.9 CREATINE KINASE-MB INDEX (BEAKER) (test lvqr=246) 1.3 % CK-MB Reference Range:<5 Normal5-10 Borderline>10 [...] CHEST WITH CONTRAST, PE PROTOCOL: Location code: [id number] HISTORY: [id number]: Chest pain, shortness of breathCOMPARISON: 10/14/16, 03/03/16, [...] 1.2 ng/mL <=4.2 COMPREHENSIVE METABOLIC KANG *GP* [id number] 14:23:00 Test Item Value Reference Range Comments [...] VIEW*GP*2017-12-16 14:20:51Portable AP chest, 1 viewLocation Code: [id number] HISTORY: [id number]: Chest painCOMPARISON: 12/22/16COMMENT: The lungs are clear and well inflated. The costophrenic angles are sharp. Thecardiomediastinal silhouette is unremarkable. The bones are intact. Right tmluyChpg-Z-Seiw tip overlies the superiorvena cava, unchanged.IMPRESSION: Stable [...] (test code=GMID%) 5.8 % 0.0-10.0 ED2 TROPONIN-I [id number] 14:21:00 Test Item Value Reference Range Comments Troponin-I (test 0.000 ng/ml 0.000-0.034 The 99th Percentile URL is 0.034 code=TROP) ng/mL. The Joint Society of Cardiology/[place] [employer] (ESC/ACC) and the National [...] clinical event. ED2 XR CHEST 2 PA [id number] 12:47:27Procedures: ED2 XR CHEST 2 PA LATERALExam [...] FRYEDate: 11/14/2017 12:47ED2 CT ANGIO CHEST W [id number] 12:46:17Procedures: ED2 CT ANGIO CHEST W CONTRASTExam [...] PMDictated By: CATHLEEN FRYEDate: 11/14/2017 12:46ED2 TROPONIN-I [id number] 11:38:00 Test Item Value Reference Range Comments Troponin-I (test 0.000 ng/ml 0.000-0.034 The 99th Percentile URL is 0.034 code=TROP) ng/mL. The [employer] Society of Cardiology/[place] [employer] (ESC/ACC) and the National [...] 24 hours after the clinical event. ED2 [id number] 11:38:00 Test Item Value Reference Range Comments Pro-BNP(B-Peptide) (test <15 0-125 THE METHODOLOGY FOR DETECTION OF code=PROBNP) B-NATRIURETIC PEPTIDE HAS BEEN CHANGED TO "NT pro-BNP". THE NORMAL RANGES HAVE CHANGED. PLEASE NOTE THAT RANGES ARE DEFINED BY THE AGE OF THE PATIENT. (<75 years old=0-125 pg/ml 75years and older=0-450pg/ml). VALUES ARE NOT INTERCHANGEABLE BETWEEN METHODS. 10-18-2006 ED2 [id number] 11:31:00 Test Item Value Reference Range Comments Sodium (test code=NA) 142 mmol/l 128-145 Potassium (test code=K) 3.5 mmol/l 3.6-5.1 CO2 (test code=CO2) 24 mmol/l 18-33 Chloride (test code=CL) 105 mmol/l 98-108 Glucose (test code=GLU) 196 mg/dl 73-118 Calcium (test code=CALC) 8.3 mg/dl 8.0-10.3 BUN (test code=BUN) 10 mg/dl 7-22 Creatinine (test code=CREA) 0.9 mg/dl 0.6-1.2 ED2 [id number] 11:21:00 Test Item Value Reference Range Comments [...] MPV (test code=MPV) 7.3 fL 8.0-11.0 TROPONIN [id number] 07:00:00 Test Item Value Reference Range Comments TROPONIN I (NIMO) (test ikzs=530) < ng/mL 0.00-0.15 Troponin I (TnI) levels [...] acidosis, acute neurological disease, and persistent tachyarrhythmia.TROPONIN [id number] 00:40:00 Test Item Value Reference Range Comments TROPONIN I (NIMO) (test vcxx=955) < ng/mL 0.00-0.15 Troponin I (TnI) levels [...] acidosis, acute neurological disease, and persistent tachyarrhythmia.HEMOGLOBIN [id number] 19:40:00 Test Item Value Reference Range Comments HEMOGLOBIN A1C (NIMO) (test xkmd=838) 5.3 % 4.3-6.1 TROPONIN [id number] 18:43:00 Test Item Value Reference Range Comments TROPONIN I (NIMO) (test wuic=833) < ng/mL 0.00-0.15 Troponin I (TnI) levels [...] acute neurological disease, and persistent tachyarrhythmia.BASIC METABOLIC [id number] 18:24:00 Test Item Value Reference Range Comments SODIUM (BEAKER) (test 139 meq/L 135-148 gdkz=795) POTASSIUM (BEAKER) (test 3.5 meq/L 3.6-5.5 jwyj=528) CHLORIDE (BEAKER) (test 105 meq/L 98-106 eguk=262) CO2 (BEAKER) (test 26 meq/L 20-29 hkqa=128) BLOOD UREA NITROGEN 15 mg/dL 10-26 (BEAKER) (test rbup=511) CREATININE (BEAKER) (test 1.00 mg/dL 0.50-1.20 ncmg=870) GLUCOSE RANDOM (BEAKER) 94 mg/dL 70-110 (test ymhg=403) CALCIUM (BEAKER) (test 8.6 mg/dL 8.5-10.5 nnsm=440) EGFR (BEAKER) (test 80 mL/min/1.73 sq m ESTIMATED GFR IS NOT bxca=6389) ACCURATE CREATININE CLEARANCE IN PREDICTING GLOMERULAR FILTRATION RATE. ESTIMATED GFR IS NOT APPLICABLE FOR DIALYSIS PATIENTS. CBC W/PLT COUNT & AUTO [id number] 18:01:00 Test Item Value Reference Range Comments WHITE BLOOD CELL COUNT (BEAKER) (test ixrj=428) 8.5 K/ L 4.0-10.0 RED BLOOD CELL COUNT (BEAKER) (test fbgc=859) 3.95 M/ L 4.20-5.80 HEMOGLOBIN (BEAKER) (test ngga=976) 11.4 GM/DL 13.0-16.8 HEMATOCRIT (BEAKER) (test dzaz=566) 34.6 % 40.0-50.0 MEAN CORPUSCULAR VOLUME (BEAKER) (test gxhp=819) 87.4 fL 82.0-98.0 MEAN CORPUSCULAR HEMOGLOBIN (BEAKER) (test 28.9 pg 27.0-33.0 ikdl=980) MEAN CORPUSCULAR HEMOGLOBIN CONC (BEAKER) (test 33.0 GM/DL 32.0-36.0 tsvp=575) RED CELL DISTRIBUTION WIDTH (BEAKER) (test 15.7 % 10.3-14.2 yspl=687) PLATELET COUNT (BEAKER) (test utcq=434) 368 K/CU MM 150-430 MEAN PLATELET VOLUME (BEAKER) (test znvt=039) 7.1 fL 6.5-10.5 NUCLEATED RED BLOOD CELLS (BEAKER) (test 0 /100 WBC 0-0 ugod=449) NEUTROPHILS RELATIVE PERCENT (BEAKER) (test 50 % hluz=492) LYMPHOCYTES RELATIVE PERCENT (BEAKER) (test 32 % kqol=094) MONOCYTES RELATIVE PERCENT (BEAKER) (test 15 % ncrs=937) EOSINOPHILS RELATIVE PERCENT (BEAKER) (test 2 % pvuf=545) BASOPHILS RELATIVE PERCENT (BEAKER) (test 0 % xkkt=643) NEUTROPHILS ABSOLUTE COUNT (BEAKER) (test 4.30 K/ L 1.80-8.00 nels=067) LYMPHOCYTES ABSOLUTE COUNT (BEAKER) (test 2.70 K/ L 1.48-4.50 cxyw=618) MONOCYTES ABSOLUTE COUNT (BEAKER) (test 1.30 K/ L 0.00-1.30 bkko=196) EOSINOPHILS ABSOLUTE COUNT (BEAKER) (test 0.20 K/ L 0.00-0.50 zeow=734) BASOPHILS ABSOLUTE COUNT (BEAKER) (test 0.00 K/ L 0.00-0.20 rlqa=276) CREATINE KINASE (CK), TOTAL AND [id number] 12:25:00 Test Item Value Reference Range Comments CREATINE KINASE TOTAL (BEAKER) (test vuyq=528) 72 U/L 40-250 CREATINE KINASE-MB (BEAKER) (test qrpk=929) 0.9 ng/mL 0.0-4.9 CREATINE KINASE-MB INDEX (BEAKER) (test yqvn=946) 1.3 % CK-MB Reference Range:<5 Normal5-10 Borderline>10 AbnormalTROPONIN [id number] 12:25:00 Test Item Value Reference Range Comments TROPONIN I (BEAKER) (test kztc=307) < ng/mL 0.00-0.15 Troponin I (TnI) levels [...] Comments NEUTROPHILS - REL (DIFF) (BEAKER) (test ubte=9625) 38 % LYMPHOCYTES - REL (DIFF) (BEAKER) (test cllp=4304) 46 % MONOCYTES - REL (DIFF) (BEAKER) (test nnkh=4033) 11 % EOSINOPHILS - REL (DIFF) (BEAKER) (test qvpj=1544) 5 % NEUTROPHILS - ABS (DIFF) (BEAKER) (test eshy=4575) 2.13 K/ L 1.80-8.00 LYMPHOCYTES - ABS (DIFF) (BEAKER) (test yeuy=9855) 2.58 K/ L 1.48-4.50 MONOCYTES - ABS (DIFF) (BEAKER) (test pcgy=9978) 0.62 K/ L 0.00-1.30 EOSINOPHILS - ABS (DIFF) (BEAKER) (test velp=0285) 0.28 K/ L 0.00-0.50 TOTAL COUNTED (BEAKER) (test vgug=1476) 100 WBC MORPHOLOGY (BEAKER) (test udns=359) Normal PLT MORPHOLOGY (BEAKER) (test fpwz=408) Normal RBC MORPHOLOGY (BEAKER) (test ptzd=179) Normal CBC W/PLT COUNT & AUTO [id number] 06:02:00 Test Item Value Reference Range Comments WHITE BLOOD CELL COUNT (BEAKER) (test xlyj=139) 5.6 K/ L 4.0-10.0 RED BLOOD CELL COUNT (BEAKER) (test xnwk=279) 3.60 M/ L 4.20-5.80 HEMOGLOBIN (BEAKER) (test ympg=204) 10.6 GM/DL 13.0-16.8 HEMATOCRIT (BEAKER) (test ypln=962) 32.3 % 40.0-50.0 MEAN CORPUSCULAR VOLUME (BEAKER) (test kkvq=389) 89.8 fL 82.0-98.0 MEAN CORPUSCULAR HEMOGLOBIN (BEAKER) (test 29.3 pg 27.0-33.0 dwzm=113) MEAN CORPUSCULAR HEMOGLOBIN CONC (BEAKER) (test 32.7 GM/DL 32.0-36.0 nats=650) RED CELL DISTRIBUTION WIDTH (BEAKER) (test 15.9 % 10.3-14.2 zxhu=155) PLATELET COUNT (BEAKER) (test ibyg=485) 312 K/CU MM 150-430 MEAN PLATELET VOLUME (BEAKER) (test sucp=881) 6.9 fL 6.5-10.5 NUCLEATED RED BLOOD CELLS (BEAKER) (test 0 /100 WBC 0-0 bibm=913) TROPONIN [id number] 05:22:00 Test Item Value Reference Range Comments TROPONIN I (BEAKER) (test txnd=994) < ng/mL 0.00-0.15 Troponin I (TnI) levels [...] and persistent tachyarrhythmia.CREATINE KINASE (CK), TOTAL AND [id number] 05:21:00 Test Item Value Reference Range Comments CREATINE KINASE TOTAL (BEAKER) (test okeb=276) 71 U/L 40-250 CREATINE KINASE-MB (BEAKER) (test onry=488) 0.8 ng/mL 0.0-4.9 CREATINE KINASE-MB INDEX (BEAKER) (test wfus=635) 1.1 % CK-MB Reference Range:<5 Normal5-10 Borderline>10 AbnormalCOMPREHENSIVE METABOLIC [id number] 05:14:00 Test Item Value Reference Range Comments TOTAL PROTEIN (BEAKER) 6.4 gm/dL 6.0-8.5 (test ciix=004) ALBUMIN (BEAKER) (test 3.7 g/dL 3.5-5.0 kmmc=4240) ALKALINE PHOSPHATASE 67 U/L 30-115 (BEAKER) (test xyln=575) BILIRUBIN TOTAL (BEAKER) 0.3 mg/dL 0.1-1.2 (test usii=871) SODIUM (BEAKER) (test 141 meq/L 135-148 mwgk=124) POTASSIUM (BEAKER) (test 3.7 meq/L 3.6-5.5 trqn=391) CHLORIDE (BEAKER) (test 106 meq/L 98-106 xevh=595) CO2 (BEAKER) (test 26 meq/L 20-29 hagr=528) BLOOD UREA NITROGEN 19 mg/dL 10-26 (BEAKER) (test hczx=336) CREATININE (BEAKER) (test 1.00 mg/dL 0.50-1.20 ymbx=262) GLUCOSE RANDOM (BEAKER) 104 mg/dL 70-110 (test ebtm=924) CALCIUM (BEAKER) (test 9.0 mg/dL 8.5-10.5 ftgm=929) AST (SGOT) (BEAKER) (test 14 U/L 5-40 dqpd=503) ALT (SGPT) (BEAKER) (test 10 U/L 5-50 ixdi=900) EGFR (BEAKER) (test 80 mL/min/1.73 sq m ESTIMATED GFR IS NOT notp=5394) ACCURATE CREATININE CLEARANCE IN PREDICTING GLOMERULAR FILTRATION RATE. ESTIMATED GFR IS NOT APPLICABLE FOR DIALYSIS PATIENTS. LIPID [id number] 05:13:00 Test Item Value Reference Range Comments TRIGLYCERIDES (BEAKER) (test siqv=193) 159 mg/dL CHOLESTEROL (BEAKER) (test pokx=558) 205 mg/dL HDL CHOLESTEROL (BEAKER) (test jnmv=958) 62 mg/dL LDL CHOLESTEROL CALCULATED (BEAKER) (test 111 mg/dL zvxh=091) Triglyceride Reference Range: Low Risk <150 Borderline 150- 199 High Risk 200-499 Very High Risk >=500Cholesterol Reference Range: Low Risk <200 Borderline 200-239 High Risk > 240HDL Cholesterol Reference Range: Low Risk >=60 High Risk <40LDL Cholesterol Reference Range: Optimal <100 Near Optimal 100-129 Borderline 130-159 High 160-189 Very High >=190CREATINE KINASE (CK), TOTAL AND [id number] 23:03:00 Test Item Value Reference Range Comments CREATINE KINASE TOTAL (BEAKER) (test kegl=218) 77 U/L 40-250 CREATINE KINASE-MB (BEAKER) (test kqpl=761) 0.9 ng/mL 0.0-4.9 CREATINE KINASE-MB INDEX (BEAKER) (test uxbi=977) 1.2 % CK-MB Reference Range:<5 Normal5-10 Borderline>10 AbnormalTROPONIN [id number] 23:03:00 Test Item Value Reference Range Comments TROPONIN I (BEAKER) (test ckis=910) < ng/mL 0.00-0.15 Troponin I (TnI) levels [...] 1 VIEW PORTABLE 2017-02-21 04:12:23CHEST AP viewLOCATION: [id number] INDICATION: Chest pain COMPARISON: March 14, 2017FINDINGS: [...] mg/dL 1.8-2.4 CREATINE KINASE (CK), TOTAL AND [id number] 08:12:00 Test Item Value Reference Range Comments CREATINE KINASE TOTAL (BEAKER) (test eoew=995) 91 U/L 40-250 CREATINE KINASE-MB (BEAKER) (test tiyc=418) 1.0 ng/mL 0.0-4.9 CREATINE KINASE-MB INDEX (BEAKER) (test lhwu=866) 1.1 % CK-MB Reference Range:<5 Normal5-10 Borderline>10 AbnormalTROPONIN [id number] 08:12:00 Test Item Value Reference Range Comments TROPONIN I (BEAKER) (test qkrq=717) < ng/mL 0.00-0.15 Troponin I (TnI) levels [...] and persistent tachyarrhythmia.CBC W/PLT COUNT & AUTO [id number] 07:57:00 Test Item Value Reference Range Comments WHITE BLOOD CELL COUNT (BEAKER) (test vscz=842) 7.7 K/ L 4.0-10.0 RED BLOOD CELL COUNT (BEAKER) (test ujfw=021) 3.82 M/ L 4.20-5.80 HEMOGLOBIN (BEAKER) (test weqk=329) 9.3 GM/DL 13.0-16.8 HEMATOCRIT (BEAKER) (test ujsc=687) 29.3 % 40.0-50.0 MEAN CORPUSCULAR VOLUME (BEAKER) (test njxq=386) 76.6 fL 82.0-98.0 MEAN CORPUSCULAR HEMOGLOBIN (BEAKER) (test 24.3 pg 27.0-33.0 hmqc=801) MEAN CORPUSCULAR HEMOGLOBIN CONC (BEAKER) (test 31.8 GM/DL 32.0-36.0 nctb=169) RED CELL DISTRIBUTION WIDTH (BEAKER) (test 22.1 % 10.3-14.2 qlns=477) PLATELET COUNT (BEAKER) (test lopl=155) 341 K/CU MM 150-430 MEAN PLATELET VOLUME (BEAKER) (test iest=003) 7.2 fL 6.5-10.5 NUCLEATED RED BLOOD CELLS (BEAKER) (test 0 /100 WBC 0-0 tixa=238) NEUTROPHILS RELATIVE PERCENT (BEAKER) (test 50 % iccv=097) LYMPHOCYTES RELATIVE PERCENT (BEAKER) (test 34 % pypv=852) MONOCYTES RELATIVE PERCENT (BEAKER) (test 14 % grye=116) EOSINOPHILS RELATIVE PERCENT (BEAKER) (test 1 % cmsh=884) BASOPHILS RELATIVE PERCENT (BEAKER) (test 0 % omux=996) NEUTROPHILS ABSOLUTE COUNT (BEAKER) (test 3.90 K/ L 1.80-8.00 jtyz=844) LYMPHOCYTES ABSOLUTE COUNT (BEAKER) (test 2.60 K/ L 1.48-4.50 exdz=365) MONOCYTES ABSOLUTE COUNT (BEAKER) (test 1.10 K/ L 0.00-1.30 rnkf=228) EOSINOPHILS ABSOLUTE COUNT (BEAKER) (test 0.10 K/ L 0.00-0.50 axss=889) BASOPHILS ABSOLUTE COUNT (BEAKER) (test 0.00 K/ L 0.00-0.20 yqah=182) (MANUAL DIFFERENTIAL)2017-02-09 07:57:00 Test Item Value Reference Range Comments TOTAL COUNTED (BEAKER) (test tngt=7479) WBC MORPHOLOGY (BEAKER) (test mcun=937) Normal PLT MORPHOLOGY (BEAKER) (test fkfv=272) Normal ANISOCYTOSIS (BEAKER) (test ktoz=500) 1+ few HYPOCHROMIA (BEAKER) (test yvhk=529) 2+ moderate CREATINE KINASE (CK), TOTAL AND [id number] 06:53:00 Test Item Value Reference Range Comments CREATINE KINASE TOTAL (BEAKER) (test slms=116) 116 U/L 40-250 CREATINE KINASE-MB (BEAKER) (test zmyz=388) 1.1 ng/mL 0.0-4.9 CREATINE KINASE-MB INDEX (BEAKER) (test rnpt=860) 0.9 % CK-MB Reference Range:<5 Normal5-10 Borderline>10 AbnormalTROPONIN [id number] 06:53:00 Test Item Value Reference Range Comments TROPONIN I (BEAKER) (test tofe=737) < ng/mL 0.00-0.15 Troponin I (TnI) levels [...] acute neurological disease, and persistent tachyarrhythmia.BASIC METABOLIC [id number] 06:45:00 Test Item Value Reference Range Comments SODIUM (BEAKER) (test 143 meq/L 135-148 pahh=097) POTASSIUM (BEAKER) (test 3.8 meq/L 3.6-5.5 qmni=279) CHLORIDE (BEAKER) (test 107 meq/L 98-106 cnzg=781) CO2 (BEAKER) (test 26 meq/L 20-29 qqnk=354) BLOOD UREA NITROGEN 15 mg/dL 10-26 (BEAKER) (test ebbo=468) CREATININE (BEAKER) (test 1.00 mg/dL 0.50-1.20 suqw=337) GLUCOSE RANDOM (BEAKER) 106 mg/dL 70-110 (test hkjc=025) CALCIUM (BEAKER) (test 8.8 mg/dL 8.5-10.5 gmdz=378) EGFR (BEAKER) (test 80 mL/min/1.73 sq m ESTIMATED GFR IS NOT lsmw=9077) ACCURATE CREATININE CLEARANCE IN PREDICTING GLOMERULAR FILTRATION RATE. ESTIMATED GFR IS NOT APPLICABLE FOR DIALYSIS PATIENTS. TROPONIN [id number] 22:50:00 Test Item Value Reference Range Comments TROPONIN I (BEAKER) (test yydk=040) < ng/mL 0.00-0.15 Troponin I (TnI) levels [...] and persistent tachyarrhythmia.CREATINE KINASE (CK), TOTAL AND [id number] 22:45:00 Test Item Value Reference Range Comments CREATINE KINASE TOTAL (BEAKER) (test zljy=162) 100 U/L 40-250 CREATINE KINASE-MB (BEAKER) (test xhzo=287) 1.0 ng/mL 0.0-4.9 CREATINE KINASE-MB INDEX (BEAKER) (test wtfi=591) 1.0 % CK-MB Reference Range:<5 Normal5-10 Borderline>10 AbnormalPROTHROMBIN TIME/[id number] 22:35:00 Test Item Value Reference Range Comments PROTIME (BEAKER) (test kczz=840) 10.4 seconds 9.3-12.0 INR (BEAKER) (test omif=604) 1.0 <=5.9 RECOMMENDED COUMADIN/WARFARIN INR THERAPY RANGESSTANDARD DOSE: 2.0 - 3.0 Includes: PROPHYLAXIS forvenous thrombosis, systemic embolization; TREATMENT for venous thrombosis and/or pulmonary embolus.HIGH RISK: Target INR is 2.5-3.5 for patients with mechanical heart valves.[id number] 22:35:00 Test Item Value Reference Range Comments PARTIAL THROMBOPLASTIN TIME (BEAKER) (test 23.1 seconds 23.0-35.0 rayi=049) TROPONIN [id number] 15:08:00 Test Item Value Reference Range Comments TROPONIN I (BEAKER) (test krkd=908) < ng/mL 0.00-0.15 Troponin I (TnI) levels [...] and persistent tachyarrhythmia.CREATINE KINASE (CK), TOTAL AND [id number] 15:07:00 Test Item Value Reference Range Comments CREATINE KINASE TOTAL (BEAKER) (test rncz=904) 355 U/L 40-250 CREATINE KINASE-MB (BEAKER) (test cexe=135) 2.2 ng/mL 0.0-4.9 CREATINE KINASE-MB INDEX (BEAKER) (test xyjc=942) 0.6 % CK-MB Reference Range:<5 Normal5-10 Borderline>10 AbnormalCBC W/PLT COUNT & AUTO [id number] 06:58:00 Test Item Value Reference Range Comments WHITE BLOOD CELL COUNT (BEAKER) (test bbhg=056) 6.8 K/ L 4.0-10.0 RED BLOOD CELL COUNT (BEAKER) (test orri=263) 3.57 M/ L 4.20-5.80 HEMOGLOBIN (BEAKER) (test mljq=192) 8.6 GM/DL 13.0-16.8 HEMATOCRIT (BEAKER) (test rsnz=825) 28.0 % 40.0-50.0 MEAN CORPUSCULAR VOLUME (BEAKER) (test zuyv=078) 78.5 fL 82.0-98.0 MEAN CORPUSCULAR HEMOGLOBIN (BEAKER) (test 24.2 pg 27.0-33.0 rvvj=133) MEAN CORPUSCULAR HEMOGLOBIN CONC (BEAKER) (test 30.9 GM/DL 32.0-36.0 nkwm=864) RED CELL DISTRIBUTION WIDTH (BEAKER) (test 22.6 % 10.3-14.2 cxov=961) PLATELET COUNT (BEAKER) (test fxvw=699) 297 K/CU MM 150-430 MEAN PLATELET VOLUME (BEAKER) (test vdmm=417) 7.2 fL 6.5-10.5 NUCLEATED RED BLOOD CELLS (BEAKER) (test 0 /100 WBC 0-0 qhin=408) NEUTROPHILS RELATIVE PERCENT (BEAKER) (test 46 % ifle=447) LYMPHOCYTES RELATIVE PERCENT (BEAKER) (test 38 % dtle=013) MONOCYTES RELATIVE PERCENT (BEAKER) (test 14 % bxvl=583) EOSINOPHILS RELATIVE PERCENT (BEAKER) (test 2 % oqto=042) BASOPHILS RELATIVE PERCENT (BEAKER) (test 0 % dynr=647) NEUTROPHILS ABSOLUTE COUNT (BEAKER) (test 3.10 K/ L 1.80-8.00 bshq=963) LYMPHOCYTES ABSOLUTE COUNT (BEAKER) (test 2.60 K/ L 1.48-4.50 eemq=630) MONOCYTES ABSOLUTE COUNT (BEAKER) (test 0.90 K/ L 0.00-1.30 ggjc=470) EOSINOPHILS ABSOLUTE COUNT (BEAKER) (test 0.20 K/ L 0.00-0.50 zuwt=893) BASOPHILS ABSOLUTE COUNT (BEAKER) (test 0.00 K/ L 0.00-0.20 gecd=952) (MANUAL DIFFERENTIAL)2017-01-24 06:58:00 Test Item Value Reference Range Comments TOTAL COUNTED (BEAKER) (test wmcz=6779) WBC MORPHOLOGY (BEAKER) (test fseq=173) Normal PLT MORPHOLOGY (BEAKER) (test czvy=545) Normal ANISOCYTOSIS (BEAKER) (test bbun=697) 2+ moderate HYPOCHROMIA (BEAKER) (test soic=342) 2+ moderate MICROCYTES (BEAKER) (test cdsy=184) 1+ few TROPONIN [id number] 06:05:00 Test Item Value Reference Range Comments TROPONIN I (BEAKER) (test qwht=746) < ng/mL 0.00-0.15 Troponin I (TnI) levels [...] and persistent tachyarrhythmia.CREATINE KINASE (CK), TOTAL AND [id number] 06:04:00 Test Item Value Reference Range Comments CREATINE KINASE TOTAL (BEAKER) (test ietx=095) 298 U/L 40-250 CREATINE KINASE-MB (BEAKER) (test mjcs=405) 2.1 ng/mL 0.0-4.9 CREATINE KINASE-MB INDEX (BEAKER) (test eilu=088) 0.7 % CK-MB Reference Range:<5 Normal5-10 Borderline>10 AbnormalCOMPREHENSIVE METABOLIC [id number] 06:00:00 Test Item Value Reference Range Comments TOTAL PROTEIN (BEAKER) 6.5 gm/dL 6.0-8.5 (test ioqm=296) ALBUMIN (BEAKER) (test 4.0 g/dL 3.5-5.0 tlrp=6938) ALKALINE PHOSPHATASE 76 U/L 30-115 (BEAKER) (test jmyi=589) BILIRUBIN TOTAL (BEAKER) 0.5 mg/dL 0.1-1.2 (test ihiw=790) SODIUM (BEAKER) (test 142 meq/L 135-148 piba=097) POTASSIUM (BEAKER) (test 3.5 meq/L 3.6-5.5 ayfm=997) CHLORIDE (BEAKER) (test 106 meq/L 98-106 ieza=504) CO2 (BEAKER) (test 26 meq/L 20-29 gqlf=174) BLOOD UREA NITROGEN 14 mg/dL 10-26 (BEAKER) (test iibe=108) CREATININE (BEAKER) (test 0.90 mg/dL 0.50-1.20 chlv=940) GLUCOSE RANDOM (BEAKER) 79 mg/dL 70-110 (test xkqg=313) CALCIUM (BEAKER) (test 8.8 mg/dL 8.5-10.5 qpyz=103) AST (SGOT) (BEAKER) (test 16 U/L 5-40 cbsp=241) ALT (SGPT) (BEAKER) (test 10 U/L 5-50 ofeb=514) EGFR (BEAKER) (test 91 mL/min/1.73 sq m ESTIMATED GFR IS NOT fsff=9410) ACCURATE CREATININE CLEARANCE IN PREDICTING GLOMERULAR FILTRATION RATE. ESTIMATED GFR IS NOT APPLICABLE FOR DIALYSIS PATIENTS. CREATINE KINASE (CK), TOTAL AND [id number] 04:57:00 Test Item Value Reference Range Comments CREATINE KINASE TOTAL (BEAKER) (test vcen=796) 653 U/L 30-300 CREATINE KINASE-MB (BEAKER) (test mweh=315) 0.8 ng/mL 0.0-4.9 CREATINE KINASE-MB INDEX (BEAKER) (test petz=178) 0.1 % CK-MB Reference Range:<5 Normal5-10 Borderline>10 AbnormalTROPONIN [id number] 04:56:00 Test Item Value Reference Range Comments TROPONIN I (BEAKER) (test cvjo=184) 0.03 ng/mL 0.00-0.15 Troponin I (TnI) levels [...] acidosis, acute neurological disease, and persistent tachyarrhythmia.LIPID [id number] 04:47:00 Test Item Value Reference Range Comments TRIGLYCERIDES (BEAKER) (test ptyv=700) 79 mg/dL CHOLESTEROL (BEAKER) (test ysdt=860) 206 mg/dL HDL CHOLESTEROL (BEAKER) (test kxit=235) 53 mg/dL LDL CHOLESTEROL CALCULATED (BEAKER) (test 137 mg/dL nfir=563) Triglyceride Reference Range: Low Risk <150 Borderline 150- 199 High Risk 200-499 Very High Risk >=500Cholesterol Reference Range: Low Risk <200 Borderline 200-239 High Risk > 240HDL Cholesterol Reference Range: Low Risk >=60 High Risk <40LDL Cholesterol Reference Range: Optimal <100 Near Optimal 100-129 Borderline 130-159 High 160-189 Very High >=190COMPREHENSIVE METABOLIC [id number] 04:47:00 Test Item Value Reference Range Comments TOTAL PROTEIN (BEAKER) 7.2 gm/dL 6.0-8.5 (test mprm=644) ALBUMIN (BEAKER) (test 4.1 g/dL 3.5-5.0 pecq=9500) ALKALINE PHOSPHATASE 78 U/L 30-115 (BEAKER) (test vpkb=281) BILIRUBIN TOTAL (BEAKER) 0.5 mg/dL 0.1-1.3 (test roac=218) SODIUM (BEAKER) (test 141 meq/L 135-148 kdig=021) POTASSIUM (BEAKER) (test 3.9 meq/L 3.5-5.5 nabv=025) CHLORIDE (BEAKER) (test 109 meq/L 98-106 zjnh=434) CO2 (BEAKER) (test 23 meq/L 20-31 fluf=429) BLOOD UREA NITROGEN 9 mg/dL 10-26 (BEAKER) (test xcsk=568) CREATININE (BEAKER) (test 0.95 mg/dL 0.50-1.20 htvx=384) GLUCOSE RANDOM (BEAKER) 83 mg/dL 70-110 (test tbnl=910) CALCIUM (BEAKER) (test 8.8 mg/dL 8.5-10.5 gpku=771) AST (SGOT) (BEAKER) (test 28 U/L 5-40 ryci=929) ALT (SGPT) (BEAKER) (test 27 U/L 6-50 xbsx=427) EGFR (BEAKER) (test 86 mL/min/1.73 sq m ESTIMATED GFR IS NOT fkdc=1076) ACCURATE CREATININE CLEARANCE IN PREDICTING GLOMERULAR FILTRATION RATE. ESTIMATED GFR IS NOT APPLICABLE FOR DIALYSIS PATIENTS. CBC W/PLT COUNT & AUTO [id number] 04:19:00 Test Item Value Reference Range Comments WHITE BLOOD CELL COUNT (BEAKER) (test ctaw=976) 6.6 K/ L 4.0-10.0 RED BLOOD CELL COUNT (BEAKER) (test rbel=376) 3.66 M/ L 4.20-5.80 HEMOGLOBIN (BEAKER) (test lstz=469) 8.5 GM/DL 13.0-16.8 HEMATOCRIT (BEAKER) (test ckjl=577) 27.3 % 40.0-50.0 MEAN CORPUSCULAR VOLUME (BEAKER) (test tpph=938) 74.7 fL 82.0-98.0 MEAN CORPUSCULAR HEMOGLOBIN (BEAKER) (test 23.2 pg 27.0-33.0 phav=070) MEAN CORPUSCULAR HEMOGLOBIN CONC (BEAKER) (test 31.0 GM/DL 32.0-36.0 fcof=858) RED CELL DISTRIBUTION WIDTH (BEAKER) (test 19.2 % 12.0-15.0 bwln=377) PLATELET COUNT (BEAKER) (test kism=408) 348 K/CU MM 150-430 MEAN PLATELET VOLUME (BEAKER) (test iyth=701) 6.8 fL 6.5-10.5 NUCLEATED RED BLOOD CELLS (BEAKER) (test 0 /100 WBC 0-0 xszn=500) NEUTROPHILS RELATIVE PERCENT (BEAKER) (test 49 % yrtu=904) LYMPHOCYTES RELATIVE PERCENT (BEAKER) (test 39 % vova=457) MONOCYTES RELATIVE PERCENT (BEAKER) (test 9 % zyqb=812) EOSINOPHILS RELATIVE PERCENT (BEAKER) (test 1 % xmgq=966) BASOPHILS RELATIVE PERCENT (BEAKER) (test 2 % zkpx=347) NEUTROPHILS ABSOLUTE COUNT (BEAKER) (test 3.20 K/ L 1.80-8.00 uqrh=358) LYMPHOCYTES ABSOLUTE COUNT (BEAKER) (test 2.60 K/ L 1.48-4.50 bvif=401) MONOCYTES ABSOLUTE COUNT (BEAKER) (test 0.60 K/ L 0.00-1.30 shhi=391) EOSINOPHILS ABSOLUTE COUNT (BEAKER) (test 0.10 K/ L 0.00-0.50 ozmq=769) BASOPHILS ABSOLUTE COUNT (BEAKER) (test 0.10 K/ L 0.00-0.20 zmtr=198) TROPONIN [id number] 13:44:00 Test Item Value Reference Range Comments TROPONIN I (BEAKER) (test gegz=148) < ng/mL 0.00-0.15 Troponin I (TnI) levels [...] and persistent tachyarrhythmia.CREATINE KINASE (CK), TOTAL AND [id number] 13:43:00 Test Item Value Reference Range Comments CREATINE KINASE TOTAL (BEAKER) (test anic=448) 61 U/L 40-250 CREATINE KINASE-MB (BEAKER) (test liov=130) 1.0 ng/mL 0.0-4.9 CREATINE KINASE-MB INDEX (BEAKER) (test dhfy=699) 1.6 % CK-MB Reference Range:<5 Normal5-10 Borderline>10 AbnormalTROPONIN [id number] 07:21:00 Test Item Value Reference Range Comments TROPONIN I (BEAKER) (test jsvv=817) < ng/mL 0.00-0.15 Troponin I (TnI) levels [...] and persistent tachyarrhythmia.CREATINE KINASE (CK), TOTAL AND [id number] 07:20:00 Test Item Value Reference Range Comments CREATINE KINASE TOTAL (BEAKER) (test rxbx=795) 58 U/L 40-250 CREATINE KINASE-MB (BEAKER) (test syas=252) 0.9 ng/mL 0.0-4.9 CREATINE KINASE-MB INDEX (BEAKER) (test hcln=619) 1.6 % CK-MB Reference Range:<5 Normal5-10 Borderline>10 AbnormalCBC W/PLT COUNT & AUTO [id number] 22:21:00 Test Item Value Reference Range Comments WHITE BLOOD CELL COUNT (BEAKER) (test vhya=364) 7.3 K/ L 4.0-10.0 RED BLOOD CELL COUNT (BEAKER) (test oxbw=286) 4.00 M/ L 4.20-5.80 HEMOGLOBIN (BEAKER) (test djvj=806) 9.4 GM/DL 13.0-16.8 HEMATOCRIT (BEAKER) (test etnp=150) 30.0 % 40.0-50.0 MEAN CORPUSCULAR VOLUME (BEAKER) (test shav=352) 74.9 fL 82.0-98.0 MEAN CORPUSCULAR HEMOGLOBIN (BEAKER) (test 23.5 pg 27.0-33.0 ahzj=272) MEAN CORPUSCULAR HEMOGLOBIN CONC (BEAKER) (test 31.4 GM/DL 32.0-36.0 rusf=089) RED CELL DISTRIBUTION WIDTH (BEAKER) (test 20.1 % 10.3-14.2 lsyv=743) PLATELET COUNT (BEAKER) (test lkzo=036) 392 K/CU MM 150-430 MEAN PLATELET VOLUME (BEAKER) (test rhdc=098) 6.8 fL 6.5-10.5 NUCLEATED RED BLOOD CELLS (BEAKER) (test 0 /100 WBC 0-0 nxwm=708) NEUTROPHILS RELATIVE PERCENT (BEAKER) (test 45 % ctjm=828) LYMPHOCYTES RELATIVE PERCENT (BEAKER) (test 40 % ciif=876) MONOCYTES RELATIVE PERCENT (BEAKER) (test 14 % xjvp=587) EOSINOPHILS RELATIVE PERCENT (BEAKER) (test 1 % yhis=441) BASOPHILS RELATIVE PERCENT (BEAKER) (test 0 % utcq=343) NEUTROPHILS ABSOLUTE COUNT (BEAKER) (test 3.30 K/ L 1.80-8.00 qtud=288) LYMPHOCYTES ABSOLUTE COUNT (BEAKER) (test 2.90 K/ L 1.48-4.50 hotk=794) MONOCYTES ABSOLUTE COUNT (BEAKER) (test 1.00 K/ L 0.00-1.30 dabz=282) EOSINOPHILS ABSOLUTE COUNT (BEAKER) (test 0.10 K/ L 0.00-0.50 jbem=221) BASOPHILS ABSOLUTE COUNT (BEAKER) (test 0.00 K/ L 0.00-0.20 ozyy=967) (MANUAL DIFFERENTIAL)[id number] 22:21:00 Test Item Value Reference Range Comments TOTAL COUNTED (BEAKER) (test xeif=7074) WBC MORPHOLOGY (BEAKER) (test lsea=952) Normal PLT MORPHOLOGY (BEAKER) (test aufn=103) Normal ANISOCYTOSIS (BEAKER) (test agju=066) 2+ moderate HYPOCHROMIA (BEAKER) (test omfl=744) 1+ few TROPONIN [id number] 22:13:00 Test Item Value Reference Range Comments TROPONIN I (BEAKER) (test idpx=857) < ng/mL 0.00-0.15 Troponin I (TnI) levels [...] and persistent tachyarrhythmia.CREATINE KINASE (CK), TOTAL AND [id number] 22:12:00 Test Item Value Reference Range Comments CREATINE KINASE TOTAL (BEAKER) (test fnsr=219) 68 U/L 40-250 CREATINE KINASE-MB (BEAKER) (test xmkd=889) 1.0 ng/mL 0.0-4.9 CREATINE KINASE-MB INDEX (BEAKER) (test tuml=927) 1.5 % CK-MB Reference Range:<5 Normal5-10 Borderline>10 AbnormalCOMPREHENSIVE METABOLIC [id number] 22:05:00 Test Item Value Reference Range Comments TOTAL PROTEIN (BEAKER) 8.0 gm/dL 6.0-8.5 (test webq=347) ALBUMIN (BEAKER) (test 4.7 g/dL 3.5-5.0 jlij=1311) ALKALINE PHOSPHATASE 84 U/L 30-115 (BEAKER) (test nved=147) BILIRUBIN TOTAL (BEAKER) 0.5 mg/dL 0.1-1.2 (test exyy=212) SODIUM (BEAKER) (test 139 meq/L 135-148 cfqo=977) POTASSIUM (BEAKER) (test 4.0 meq/L 3.6-5.5 nisd=657) CHLORIDE (BEAKER) (test 103 meq/L 98-106 rwrg=488) CO2 (BEAKER) (test 26 meq/L 20-29 xzpr=332) BLOOD UREA NITROGEN 13 mg/dL 10-26 (BEAKER) (test xlqu=525) CREATININE (BEAKER) (test 1.00 mg/dL 0.50-1.20 gwoa=517) GLUCOSE RANDOM (BEAKER) 118 mg/dL 70-110 (test jpwe=691) CALCIUM (BEAKER) (test 10.1 mg/dL 8.5-10.5 zksr=211) AST (SGOT) (BEAKER) (test 19 U/L 5-40 yxxz=415) ALT (SGPT) (BEAKER) (test 15 U/L 5-50 rddo=053) EGFR (BEAKER) (test 81 mL/min/1.73 sq m ESTIMATED GFR IS NOT uyyq=8612) ACCURATE CREATININE CLEARANCE IN PREDICTING GLOMERULAR FILTRATION RATE. ESTIMATED GFR IS NOT APPLICABLE FOR DIALYSIS PATIENTS. PROTHROMBIN TIME/[id number] 21:58:00 Test Item Value Reference Range Comments PROTIME (BEAKER) (test omfr=414) 10.5 seconds 9.3-12.0 INR (BEAKER) (test scnx=725) 1.0 <=5.9 RECOMMENDED COUMADIN/WARFARIN INR THERAPY RANGESSTANDARD DOSE: 2.0 - 3.0 Includes: PROPHYLAXIS forvenous thrombosis, systemic embolization; TREATMENT for venous thrombosis and/or pulmonary embolus.HIGH RISK: Target INR is 2.5-3.5 for patients with mechanical heart valves.[id number] 21:58:00 Test Item Value Reference Range Comments PARTIAL THROMBOPLASTIN TIME (BEAKER) (test 32.3 seconds 23.0-35.0 rxsn=691)
[2018-08-19 10:07] LABS: Protime INR 1.13
[2018-08-19] MEDS ORDERED: ASPIRIN 81 MG CHEWABLE TABLET ONE (10:07)
[2018-08-19] MEDS ORDERED: NA CHLORIDE 0.9% 1,000 ML ONE (10:08)
[2018-08-19] MEDS ORDERED: ONDANSETRON 4 MG/2 ML VIAL ONE (10:08)
[2018-08-19] MEDS ORDERED: HYDROMORPHONE HCL 1 MG/ML INJ ONE ×2 (10:08→11:19)
[2018-08-19 10:19] LABS: Absolute Lymphocytes (CBC) 2.1 K/uL (0.7-4.9); Absolute Monocytes 0.6 K/uL (0.1-1.3); Absolute Neutrophil 3.7 K/uL (1.8-8.0); Basophils % 0.3 % (0-1.3); Eosinophils % 1.2 % (0-4.4); Hematocrit 35.4 % (39.6-49.0); Lymphocytes % 32.5 % (15.3-44.8); MCV 76.5 fL (80-100); MPV 7.4 fL (7.6-11.3); Monocytes % 8.8 % (3.3-12.3); RBC Red Blood Cell Count 4.62 M/uL (4.33-5.43)
[2018-08-19 10:33] LABS: ALT/SGPT 19 U/L (12-78); AST/SGOT 23 U/L (15-37); Alkaline Phosphatase 85 U/L (45-117); BUN Blood Urea Nitrogen 12 mg/dL (7-18); Bicarbonate 19 mmol/L (21-32); Bilirubin Direct 0.1 mg/dL (0-0.2); Bilirubin Total 0.6 mg/dL (0.2-1.0); Glucose Level 241 mg/dL (74-106); Lipase 124 U/L (73-393); Magnesium 2.1 mg/dL (1.8-2.4); NT PRO-BNP 15 pg/mL (<125); Potassium 3.6 mmol/L (3.5-5.1); Protein, Total 7.9 g/dL (6.4-8.2); Sodium Level 138 mmol/L (136-145); Troponin (Emerg Dept Use Only) < 0.02 ng/mL (0.0-0.045)
--- NOTE | 2018-08-19 11:06 | EDPHYS ---
Physician Documentation [facility] Name: Christiano Serra Age: 48 yrs Sex: Male : 1970 Arrival Date: 08/19/2018 Time: :27 Bed 4 Private MD: ED Physician Derian Vo HPI: 08/19 09:43 This 48 yrs old Other Male presents to ER via Unassigned with complaints of Chest Pain. [facility] 09:43 The patient or guardian reports chest pain that is located primarily in the anterior lauryn chest wall, left. Onset: just prior to arrival. The pain does not radiate. Associated signs and symptoms: Pertinent positives: shortness of breath. The chest pain is described as sharp. Duration: The patient or guardian reports a single episode, that is still ongoing. Severity of pain: At its worst the pain was moderate in the emergency department the pain is unchanged. 09:46 Modifying factors: The symptoms are alleviated by remaining still, rest, the symptoms lauryn are aggravated by deep breath, movement, palpation of area. The patient has experienced similar episodes in the past, multiple times. Historical: - Allergies: 10:11 ambien; sg 10:11 Morphine; sg 10:11 Toradol; sg - Home Meds: 10:11 Belbuca buccal [Active]; Lipitor Oral [Active]; lisinopril Oral [Active]; [place] Oral sg [Active]; Plavix 75 mg Oral tab 1 tab once daily [Active]; Zanaflex Oral [Active]; - PMHx: 10:11 FACTOR V; Hyperlipidemia; Hypertension; Myocardial infarction; sg - Immunization history:: Adult Immunizations unknown. - Social history:: Smoking status: Patient/guardian denies using tobacco. - Family history:: not pertinent. - Ebola Screening: : Patient negative for fever greater than or equal to 101.5 degrees Fahrenheit, and additional compatible Ebola Virus Disease symptoms Patient denies exposure to infectious person Patient denies travel to an Ebola-affected area in the 21 days before illness onset No symptoms or risks identified at this time. ROS: 09:43 Constitutional: Negative for fever, chills, and weight loss, Eyes: Negative for injury, lauryn pain, redness, and discharge, ENT: Negative for injury, pain, and discharge, Neck: Negative for injury, pain, and swelling, Respiratory: Negative for shortness of breath, cough, wheezing, and pleuritic chest pain, Abdomen/GI: Negative for abdominal pain, nausea, vomiting, diarrhea, and constipation, Back: Negative for injury and pain, : Negative for injury, bleeding, discharge, and swelling, MS/Extremity: Negative for injury and deformity, Skin: Negative for injury, rash, and discoloration, Neuro: Negative for headache, weakness, numbness, tingling, and seizure, Psych: Negative for depression, anxiety, suicide ideation, homicidal ideation, and hallucinations, Allergy/Immunology: Negative for hives, rash, and allergies, Endocrine: Negative for neck swelling, polydipsia, polyuria, polyphagia, and marked weight changes, Hematologic/Lymphatic: Negative for swollen nodes, abnormal bleeding, and unusual bruising. 09:43 Cardiovascular: Positive for chest pain, of the anterior aspect of left upper chest and left breast. Exam: 09:43 Head/Face: Normocephalic, atraumatic. Eyes: Pupils equal round and reactive to light, lauryn extra-ocular motions intact. Lids and lashes normal. Conjunctiva and sclera are non-icteric and not injected. Cornea within normal limits. Periorbital areas with no swelling, redness, or edema. ENT: Nares patent. No nasal discharge, no septal abnormalities noted. Tympanic membranes are normal and external auditory canals are clear. Oropharynx with no redness, swelling, or masses, exudates, or evidence of obstruction, uvula midline. Mucous membranes moist. Neck: Trachea midline, no thyromegaly or masses palpated, and no cervical lymphadenopathy. Supple, full range of motion without nuchal rigidity, or vertebral point tenderness. No Meningismus. Chest/axilla: Normal chest wall appearance and motion. Nontender with no deformity. No lesions are appreciated. Cardiovascular: Regular rate and rhythm with a normal S1 and S2. No gallops, murmurs, or rubs. Normal PMI, no JVD. No pulse deficits. Respiratory: Lungs have equal breath sounds bilaterally, clear to auscultation and percussion. No rales, rhonchi or wheezes noted. No increased work of breathing, no retractions or nasal flaring. Abdomen/GI: Soft, non-tender, with normal bowel sounds. No distension or tympany. No guarding or rebound. No evidence of tenderness throughout. Back: No spinal tenderness. No costovertebral tenderness. Full range of motion. Skin: Warm, dry with normal turgor. Normal color with no rashes, no lesions, and no evidence of cellulitis. MS/ Extremity: Pulses equal, no cyanosis. Neurovascular intact. Full, normal range of motion. Neuro: Awake and alert, GCS 15, oriented to person, place, time, and situation. Cranial nerves II-XII grossly intact. Motor strength 5/5 in all extremities. Sensory grossly intact. Cerebellar exam normal. Normal gait. Psych: Awake, alert, with orientation to person, place and time. Behavior, mood, and affect are within normal limits. 09:43 Constitutional: The patient appears in obvious distress, moderately distressed. Vital Signs: 09:57 BP 153 / 107; Pulse 117; Resp 21 S; Temp 98.1; Pulse Ox 100% on R/A; sg 10:57 BP 152 / 92; Pulse 96; Resp 19; Temp 98.1; Pulse Ox 100% on R/A; sg 12:00 BP 135 / 96; Pulse 96 MON; Resp 14 S; Pulse Ox 100% on R/A; sg 13:00 BP 140 / 89; Pulse 90; Resp 17; Temp 98.1; Pulse Ox 100% on R/A; sv MDM: 09:28 Patient medically screened. [facility] 09:46 Data reviewed: vital signs, nurses notes, lab test result(s), EKG, radiologic studies. [facility] 08/19 Order name: Basic Metabolic Panel [facility] 08/19 Order name: CBC with Diff; Complete Time: 11: [facility] 08/19 Order name: LFT's; Complete Time: 11: [facility] 08/19 Order name: Magnesium; Complete Time: 11: [facility] 08/19 Order name: NT PRO-BNP [facility] 08/19 Order name: PT-INR; Complete Time: 11: [facility] 08/19 Order name: Troponin (emerg Dept Use Only); Complete Time: 11: [facility] 08/19 Order name: XRAY Chest (1 view); Complete Time: 12:14 [facility] 08/19 Order name: Lipase; Complete Time: 11: [facility] 08/19 Order name: UDS [facility] 11/09 09:29 Order name: Basic Metabolic Panel; Complete Time: 11:01 [facility] 08/19 09:29 Order name: NT PRO-BNP; Complete Time: 11:01 [facility] 08/19 09:43 Order name: CT Chest For PE Angio; Complete Time: 12:14 [facility] 08/19 09:28 Order name: EKG; Complete Time: 09:29 [facility] 08/19 09:28 Order name: Cardiac monitoring; Complete Time: :38 [facility] 08/19 09:28 Order name: EKG - Nurse/Tech; Complete Time: :38 [facility] 08/19 09:28 Order name: IV Saline Lock; Complete Time: 10:17 [facility] 08/19 09:28 Order name: Labs collected and sent; Complete Time: 10:17 [facility] 08/19 09:28 Order name: O2 Per Protocol; Complete Time: :38 [facility] 08/19 09:28 Order name: O2 Sat Monitoring; Complete Time: 09:38 [facility] 08/19 11:14 Order name: CONS Physician Consult EDMS Administered Medications: 10:10 Drug: Dilaudid 1 mg Route: IVP; Site: Port-a-cath; sg 10:55 Follow up: Response: No adverse reaction; Pain is decreased sg 10:10 Drug: Zofran 4 mg Route: IVP; Site: Port-a-cath; sg 10:56 Follow up: Response: No adverse reaction; Nausea is decreased sg 10:10 Drug: NS 0.9% 500 ml Route: IV; Rate: bolus; Site: Port-a-cath; sg 10:16 Not Given (Patient Refused; 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 Preliminary diagnosis are Other chest pain, Dyspnea, Essential (primary) hypertension, Anemia, unspecified. - Bed requested for Telemetry/MedSurg (observation). - Status is Observation. jb1 - Condition is Stable. - Problem is new. - Symptoms have improved. UTI on Admission? No Signatures: Dispatcher [employer] EDValentin Pena jbYue Kelly Sorto, RN Malgorzata Bear RN RN dw Gay, Steven, RN RN sg Anderson, Corey, MD MD cha Corrections: (The following items were deleted from the chart) 12:15 11:05 Hospitalization Ordered by Jodi Xiong MD for Observation. Preliminary diagnosis lauryn is Other chest pain; Dyspnea; Essential (primary) hypertension. Bed requested for Telemetry/MedSurg (observation). Status is Observation. Condition is Stable. Problem is new. Symptoms have improved. UTI on Admission? No. lauryn 12:44 12:15 08/19/2018 11:05 Hospitalization Ordered by Jodi Xiong MD for Observation. dw Preliminary diagnosis is Other chest pain; Dyspnea; Essential (primary) hypertension; Anemia, unspecified. Bed requested for Telemetry/MedSurg (observation). Status is Observation. Condition is Stable. Problem is new. Symptoms have improved. UTI on Admission? No. lauryn 13:46 12:44 08/19/2018 11:05 Hospitalization Ordered by Jodi Xiong MD for Observation. jb1 Preliminary diagnosis is Other chest pain; Dyspnea; Essential (primary) hypertension; Anemia, unspecified. Bed requested for Telemetry/MedSurg (observation). Status is Observation. Condition is Stable. Problem is new. Symptoms have improved. UTI on Admission? No. dw
--- NOTE | 2018-08-19 11:06 | ER ---
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 Transition of care: patient was not received from another setting of care. Onset of symptoms was August 19, 2018. Risk Assessment: Do you want to hurt yourself or someone else? Patient reports no desire to harm self or others. Initial Sepsis Screen: Does the patient meet any 2 criteria? RR > 20 per min. No. Patient's initial sepsis screen is negative. Does the patient have a suspected source of infection? No. Patient's initial sepsis screen is negative. Care prior to arrival: None. 09:30 Method Of Arrival: Ambulatory sg 09:30 Acuity: RADHA 2 sg Historical: - Allergies: 10:11 ambien; sg 10:11 Morphine; sg 10:11 Toradol; sg - Home Meds: 10:11 [place] buccal [Active]; Lipitor Oral [Active]; lisinopril Oral [Active]; [place] Oral sg [Active]; Plavix 75 mg Oral tab 1 tab once daily [Active]; Zanaflex Oral [Active]; - PMHx: 10:11 FACTOR V; Hyperlipidemia; Hypertension; Myocardial infarction; sg - Immunization history:: Adult Immunizations unknown. - Social history:: Smoking status: Patient/guardian denies using tobacco. - Family history:: not pertinent. - Ebola Screening: : Patient negative for fever greater than or equal to 101.5 degrees Fahrenheit, and additional compatible Ebola Virus Disease symptoms Patient denies exposure to infectious person Patient denies travel to an Ebola-affected area in the 21 days before illness onset No symptoms or risks identified at this time. Screenin:35 Abuse screen: Denies threats or abuse. Denies injuries from another. Nutritional sg screening: No deficits noted. Tuberculosis screening: No symptoms or risk factors identified. Never had TB. Fall Risk None identified. Assessment: 10:13 General: Appears in no apparent distress. uncomfortable, well groomed, well developed, sg well nourished, Behavior is calm, cooperative, appropriate for age. Pain: Complains of pain in chest Quality of pain is described as aching, heavy, tight. Neuro: Level of Consciousness is awake, alert, obeys commands, Oriented to person, place, time, situation, Sld Educational Aide are equal bilaterally Moves all extremities. Full function Gait is steady, Speech is normal, Facial symmetry appears normal. Cardiovascular: Capillary refill is brisk in bilateral fingers Patient's skin is warm and dry. Chest pain is described as mild, similar to previous episode. quality is clutching, heaviness, aching. Respiratory: Reports shortness of breath at rest on exertion Airway is patent Respiratory effort is even, unlabored, Respiratory pattern is regular, symmetrical, Breath sounds are clear bilaterally. the patient has mild shortness of breath. GI: No signs and/or symptoms were reported involving the gastrointestinal system. : No signs and/or symptoms were reported regarding the genitourinary system. EENT: No signs and/or symptoms were reported regarding the EENT system. Derm: Skin is pink, warm \T\ dry. Musculoskeletal: No signs and/or symptoms reported regarding the musculoskeletal system. 10:57 Reassessment: Patient appears in no apparent distress at this time. Patient and/or sg family updated on plan of care and expected duration. Pain level reassessed. Patient is alert, oriented x 3, equal unlabored respirations, skin warm/dry/pink. Patient states feeling better. 11:40 Reassessment: Patient appears in no apparent distress at this time. Patient and/or sg family updated on plan of care and expected duration. Pain level reassessed. Patient is alert, oriented x 3, equal unlabored respirations, skin warm/dry/pink. awaiting hospitalist evaluation at this time, awaiting a bedassignment, pt updated on POC Patient states feeling better. 12:40 Reassessment: Patient appears in no apparent distress at this time. Patient and/or sg family updated on plan of care and expected duration. Pain level reassessed. Patient is alert, oriented x 3, equal unlabored respirations, skin warm/dry/pink. pt updated on bed assignment, will attempt to call report, pt stated understanding Patient states feeling better. 12:50 Reassessment: attempt to call report to Brad WRIGHT, nurse unavailable at this time, pt sv updated on POC and reason for delay. Vital Signs: 09:57 BP 153 / 107; Pulse 117; Resp 21 S; Temp 98.1; Pulse Ox 100% on R/A; sg 10:57 BP 152 / 92; Pulse 96; Resp 19; Temp 98.1; Pulse Ox 100% on R/A; sg 12:00 BP 135 / 96; Pulse 96 MON; Resp 14 S; Pulse Ox 100% on R/A; sg 13:00 BP 140 / 89; Pulse 90; Resp 17; Temp 98.1; Pulse Ox 100% on R/A; sv Vitals: 09:57 Cardiac Rhythm Assessment Sinus tach. sg 13:00 Cardiac Rhythm Assessment Sinus rhythm. sv ED Course: 09:27 Patient arrived in ED. rg4 09:27 Derian Vo MD is Attending Physician. lauryn 09:30 Arm band placed on. sg 09:40 Patient has correct armband on for positive identification. Placed in gown. Bed in low sg position. Side rails up X2. pricing analyst on. Pulse ox on. NIBP on. Warm blanket given. Pillow given. Head of bed elevated. 09:42 EKG done, by recreation technician. reviewed by Derian Vo MD. tc 09:45 Initial lab(s) drawn, by me, sent to lab. Accessed Port-a-Cath. using accessed w/ # 20 sg Rich needle, ,sterile technique, Clean \T\ dry. Dressing intact. Good blood return. Flushes easily. 10:07 X-ray completed. Portable x-ray completed in exam room. Patient tolerated procedure ml well. 10:09 XRAY Chest (1 view) In Process Unspecified. EDMS 10:09 Héctor Kent, RN is Primary Nurse. sg 10:11 Triage completed. sg 10:30 No provider procedures requiring assistance completed. sg 10:30 Patient maintains SpO2 saturation greater than 95% on room air. sg 10:[address] via stretcher. sj 10:51 CT Chest For PE Angio In Process Unspecified. EDMS 11:03 Jodi Xiong MD is Hospitalizing Provider. lauryn 12:50 Patient admitted, IV remains in place. intact, No redness/swelling at site. 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 lauryn 12:53 Admitted to Tele accompanied by tech. 13:30 Admitted to Tele accompanied by tech, via wheelchair, room 229, with chart, Report sg called to Brad WRIGHT 13:30 Condition: stable 13:30 Instructed on the need for admit, safety practices, Demonstrated understanding of instructions. 13:46 Patient left the ED. jb1 Signatures: Dispatcher [employer] EDValentin Pena Stephanie, RN RN sv Gay, Steven, RN RN Derian Vo MD MD cha Jones, Marge Wesley Tiffany, creative producer EKG Radha Jade rg4 Corrections: (The following items were deleted from the chart) 10:58 09:57 BP 153 / 107; Pulse 78bpm; Resp 21bpm; Spontaneous; Pulse Ox 100% RA; Temp 98.1F; sg sg 19:26 19:26 Response: No adverse reaction; IV Status: Infusion continued upon admission sg sg
--- NOTE | 2018-08-19 11:18 | RAD REPORT ---
EXAM DESCRIPTION: CT - Chest For Pe Angio - 08/19/2018 10:51 am CLINICAL HISTORY: Left-sided anterior chest pain COMPARISON: Chest films same date, CT chest August 09 TECHNIQUE: Dynamically enhanced 3 mm thick images of the chest were obtained during administration o f approximately 150mL Isovue 370 IV contrast. Coronal and oblique MIP reconstruction images were gene rated and reviewed. Exam utilizes a protocol to evaluate the pulmonary arterial tree. All CT scans are performed using dose optimization technique as appropriate and may include automated exposure control or mA/KV adjustment according to patient size. FINDINGS: No pulmonary emboli are identified. The aorta as imaged shows no acute or suspicious finding. No pericardial thickening or effusion. No infiltrate or mass in the lung parenchyma. No pleural effusion or pleural thickening. No mediastinal or hilar suspicious masses. No chest wall masses or abnormal axillary lymphadenopathy. No rib lesion identifiable. Right-sided Port-A-Cath is in place. IMPRESSION: No pulmonary emboli identified. No other significant or suspicious findings.
--- NOTE | 2018-08-19 11:33 | RAD REPORT ---
EXAM DESCRIPTION: RAD - Chest Single View - 08/19/2018 10:28 am CLINICAL HISTORY: Anterior chest wall pain COMPARISON: August 09 TECHNIQUE: AP portable chest image was obtained 0959 hours . FINDINGS: Lung volumes are low. No peripheral mass, consolidation or pulmonary edema. Failure and vo lume overload are not suspected. Heart and vasculature are normal. No measurable pleural effusion and no pneumothorax. No acute bony abnormality seen. No acute aortic findings suspected. IMPRESSION: No acute cardiopulmonary process. No significant change from comparison.
[2018-08-19] MEDS ORDERED: NITROGLYCERIN 0.4 MG/TAB SL PRN (14:11)
[2018-08-19] MEDS ORDERED: ACETAMINOPHEN 500 MG TAB PO PRN (14:11)
[2018-08-19] MEDS ORDERED: ALBUTEROL 2.5 MG/3 ML NEB SOL NEB PRN (14:11)
[2018-08-19 14:27] VITALS: BMI 31.3
[2018-08-19] MEDS: HYDROMORPHONE HCL 1 MG/ML INJ IV PRN ×3 (14:45→23:16)
[2018-08-19] MEDS ORDERED: POTASSIUM 25 MEQ EFFERV TAB PO ONE (16:00)
--- NOTE | 2018-08-19 18:26 | P.HP ---
Certification for Inpatient Patient admitted to: Observation With expected LOS: <2 Midnights Practitioner: I am a practitioner with admitting privileges, knowledge of patient current condition, hospital course, and medical plan of care. Services: Services provided to patient in accordance with Admission requirements found in Title 42 Section 412.3 of the Code of Federal Regulations Patient History Date of Service: 08/20/18 Primary Care Provider: Dr. Patel (House Steward/Stewardess) in [place] Reason for admission: Chest pain History of Present Illness: This is a 48-year-old male with a history of PVD, factor 5 laden deficiency, 2 previous myocardial infarctions, 2 coronary stent placement admitted for chest pain. Per patient chest pain started the morning of admission while he was at rest. Denies any radiation, described as a sharp/pressure-like pain in the substernal area without any radiation. Alleviating or exacerbating factors. Patient did take nitro x3 which did not help. At the time of my exam, patient reported improved chest pain with Dilaudid, he was hemodynamically stable and was in no acute distress. He was alert oriented x3 Allergies ketorolac tromethamine [From Toradol] Allergy (Intermediate, Verified 02/19/17 00:21) Hives morphine Allergy (Verified 02/19/17 00:21) Hives zolpidem tartrate [From Ambien] Adverse Reaction (Intermediate, Verified 00:21) sleepwalk Home Medications: Hydrocodone 10/APAP 325 [[place] 10/325*] 1 tab PO Q4HP PRN 07/28/14 Tizanidine [Zanaflex*] 2 tab PO Q4HP PRN 07/29/14 Clopidogrel Bisulfate [Plavix*] 75 mg PO DAILY 02/19/17 Fondaparinux [Arixtra*] 7.5 mg PO DAILY 02/19/17 Lisinopril 10 mg PO DAILY 02/19/17 Nebivolol HCl [Bystolic*] 20 mg PO DAILY 08/09/18 Atorvastatin Calcium [Lipitor] 80 mg PO BEDTIME #30 tablet 08/10/18 - Past Medical/Surgical History Has patient received pneumonia vaccine in the past: Yes Diabetic: 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 -: Coronary Artery Disease -: Pulmonary Embolism -: Pericarditits -: SVT -: Back Surgery -: Cholecystectomy -: right chest wall surinder cath -: Cardiac stents - Social History Smoking Status: Never smoker Alcohol use: No CD- Drugs: No Caffeine use: No Place of Residence: Home Review of Systems General: Unremarkable Eyes: Unremarkable ENT: Unremarkable Respiratory: Unremarkable Cardiovascular: Chest Pain, As per HPI Gastrointestinal: Unremarkable Genitourinary: Unremarkable Musculoskeletal: Unremarkable Integumentary: Unremarkable Neurological: Unremarkable Lymphatics: Unremarkable Physical Examination - Vital Signs Temperature: 98.7 F Blood Pressure: 146/85 Pulse: 99 Respirations: 18 Pulse Ox (%): 98 - Physical Exam General: Alert, In no apparent distress HEENT: Atraumatic, PERRLA, Mucous membr. moist/pink, EOMI, Sclerae nonicteric Neck: Supple, 2+ carotid pulse no bruit, No LAD, Without JVD or thyroid abnormality Respiratory: Clear to auscultation bilaterally, Normal air movement Cardiovascular: Regular rate/rhythm, Normal S1 S2 Gastrointestinal: Normal bowel sounds, No tenderness Musculoskeletal: No tenderness Integumentary: No rashes Neurological: Normal gait, Normal speech, Normal strength at 5/5 x4 extr, Normal tone, Normal affect Lymphatics: No axilla or inguinal lymphadenopathy - Studies Laboratory Data (last 24 hrs) 08/19/18 09:50: PT 13.3 H, INR 1.13 08/19/18 09:50: WBC 6.4, Hgb 11.1 L, Hct 35.4 L D, Plt Count 438 H D 08/19/18 09:50: Sodium 138, Potassium 3.6, BUN 12, Creatinine 1.30, Glucose 241 H, Magnesium 2.1, Total Bilirubin 0.6, AST 23, ALT 19, Alkaline Phosphatase 85, Lipase 124 Assessment and Plan - Plan This is a 48-year-old male with: Chest pain Admit to floor with tele. Cardiology consultated. IV fluids, oxygen as needed. IV Dilaudid for pain control Nitro p.r.n. Trend troponins. EKG unremarkable CT, negative for dissection or PE No echo needed as last echo less than 2 weeks ago. History of coronary stenting Restart home Plavix and arixstra Restart home beta-lucinda, CALI-inhibitor and a statin. History of PE Factor 5 leiden deficiency Restart anti coagulation as above DVT prophylaxis: anticoagulated as noted above GI prophylaxis: Not needed Diet: Heart healthy. Disposition: Admit to floor with tele. Cardiology consulted. Pending symptomatic improvement and further cardiac testing. - Advance Directives Does patient have a Living Will: No Does patient have a Durable POA for Healthcare: No Physician Review: Patient Assessed, Agree with Above Assessment and Plan Time Spent Managing Pts Care (In Minutes): 55
--- NOTE | 2018-08-19 18:47 | EKG ---
Test Date: 2018-08-19 Test Time: 09:37:30 College Advisor: CHOLO MEASUREMENT RESULTS: Intervals: Rate: 121 NH: 152 QRSD: 82 QT: 324 QTc: 460 [place]: P: 37 NH: 152 QRS: 13 T: 43 INTERPRETIVE STATEMENTS: Sinus tachycardia Biatrial enlargement Nonspecific ST abnormality Abnormal ECG Compared to ECG 08/09/2018 14:10:10 Atrial abnormality now present Left ventricular hypertrophy no longer present ST (T wave) deviation still present Electronically Signed On 08-19-18 18:44:57 FACILITIES MAINTENANCE MANAGER by Ino Prado
[2018-08-19 23:54] LABS: Urine Appearance CLEAR; Urine Bilirubin NEGATIVE (NEG); Urine Blood NEGATIVE (NEG); Urine Color YELLOW; Urine Glucose TRACE (NEG); Urine Protein NEGATIVE (NEG); Urine Specific Gravity >=1.030 (1.005-1.030); Urine Urobilinogen 0.2 mg/dL (0.2-1.0); Urine pH 7.5 (5.0-7.0)
[2018-08-20 00:53] LABS: Urine Microscopic Reflex NO UMIC
[2018-08-20] MEDS: HYDROMORPHONE HCL 1 MG/ML INJ IV PRN ×5 (03:15→20:22)
[2018-08-20 05:30] LABS: Absolute Lymphocytes (CBC) 2.3 K/uL (0.7-4.9); Absolute Neutrophil 2.7 K/uL (1.8-8.0); Basophils % 0.4 % (0-1.3); Eosinophils % 3.3 % (0-4.4); Hematocrit 29.7 % (39.6-49.0); Lymphocytes % 37.1 % (15.3-44.8); MCV 74.6 fL (80-100); MPV 7.3 fL (7.6-11.3); Monocytes % 15.7 % (3.3-12.3); RBC Red Blood Cell Count 3.98 M/uL (4.33-5.43)
[2018-08-20 05:41] LABS: Albumin 3.7 g/dL (3.4-5.0); Bilirubin Total 0.4 mg/dL (0.2-1.0); Potassium 3.4 mmol/L (3.5-5.1); Protein, Total 6.9 g/dL (6.4-8.2)
[2018-08-20] MEDS ORDERED: POTASSIUM 25 MEQ EFFERV TAB PO ONE ×2 (06:02→17:00)
[2018-08-20] MEDS: HYDROCODONE/APAP 10/325 TAB PO PRN ×4 (08:48→22:02)
[2018-08-20] MEDS: LISINOPRIL 10 MG TAB PO SCH (08:48)
[2018-08-20] MEDS: CLOPIDOGREL 75 MG TABLET PO SCH (08:49)
[2018-08-20] MEDS: TIZANIDINE 4 MG TABLET PO PRN ×4 (08:49→22:02)
[2018-08-20] MEDS: NEBIVOLOL HCL 20 MG TABLET PO SCH (08:51)
[2018-08-20 12:20] LABS: Barbiturates NEGATIVE (NEGATIVE); Benzodiazepines NEGATIVE (NEGATIVE); Cocaine NEGATIVE (NEGATIVE); METHAMPHETAM NEGATIVE (NEGATIVE); Methadone NEGATIVE (NEGATIVE); Opiates POSITIVE (NEGATIVE); Phencyclidine NEGATIVE (NEGATIVE); THC Cannibis NEGATIVE (NEGATIVE)
[2018-08-20] MEDS: FONDAPARINUX SOD 7.5 MG/0.6 ML SQ SCH (13:22)
--- NOTE | 2018-08-20 15:03 | P.PN ---
Subjective Date of Service: 08/20/18 Primary Care Provider: Dr. Patel (Director Automotive) in [place] Chief Complaint: Chest pain Patient seen and examined at bedside. No family at bedside. Case discussed with nursing staff. Patient reports unchanged symptoms from admission. Reports no worsening or improvement of the chest pain. Review of Systems As noted above Physical Examination - Vital Signs Temperature: 98.7 F Blood Pressure: 146/85 Pulse: 99 Respirations: 18 Pulse Ox (%): 98 - Physical Exam General: Alert, In no apparent distress, Oriented x3 HEENT: Atraumatic, PERRLA, EOMI Neck: Supple, JVD not distended Respiratory: Clear to auscultation bilaterally, Normal air movement Cardiovascular: Regular rate/rhythm, Normal S1 S2 Gastrointestinal: Normal bowel sounds, No tenderness Musculoskeletal: No tenderness Integumentary: No rashes Neurological: Normal speech, Normal tone, Normal affect Lymphatics: No axilla or inguinal lymphadenopathy Assessment And Plan - Plan This is a 48-year-old male with: Chest pain Cardiology consulted. Recommendations appreciated. He will be pending possible heart catheterization Wednesday with Dr. Prado IV fluids, oxygen as needed. IV Dilaudid for pain control Nitro p.r.n. Troponins negative x3. EKG unremarkable CT, negative for dissection or PE No echo needed as last echo less than 2 weeks ago. History of coronary stenting Continue home Plavix and arixstra Continue home beta-lucinda, CALI-inhibitor and a statin. History of PE Factor 5 leiden deficiency Continue anti coagulation as above DVT prophylaxis: anticoagulated as noted above GI prophylaxis: Not needed Diet: Heart healthy. Disposition: Pending symptomatic improvement and possible further cardiac testing. Physician Review: Patient Assessed, Agree with Above Assessment and Plan Time Spent Managing PTS Care (In Minutes): 35
[2018-08-20] MEDS ORDERED: ATORVASTATIN 80 MG TAB PO SCH (21:00)
[2018-08-21] MEDS: HYDROMORPHONE HCL 1 MG/ML INJ IV PRN ×3 (00:31→08:38)
[2018-08-21] MEDS: TIZANIDINE 4 MG TABLET PO PRN ×2 (05:23→10:49)
[2018-08-21] MEDS: HYDROCODONE/APAP 10/325 TAB PO PRN ×2 (05:24→10:16)
[2018-08-21 06:04] LABS: Absolute Lymphocytes (CBC) 2.1 K/uL (0.7-4.9); Absolute Monocytes 0.7 K/uL (0.1-1.3); Absolute Neutrophil 1.7 K/uL (1.8-8.0); Basophils % 0.6 % (0-1.3); Eosinophils % 5.2 % (0-4.4); Hematocrit 27.6 % (39.6-49.0); Lymphocytes % 44.7 % (15.3-44.8); MCH 24.1 pg (27.0-35.0); MCV 74.6 fL (80-100); MPV 7.6 fL (7.6-11.3); Monocytes % 14.2 % (3.3-12.3)
[2018-08-21 06:27] LABS: ALT/SGPT 18 U/L (12-78); AST/SGOT 26 U/L (15-37); Albumin 3.5 g/dL (3.4-5.0); Alkaline Phosphatase 72 U/L (45-117); BUN Blood Urea Nitrogen 19 mg/dL (7-18); Bicarbonate 28 mmol/L (21-32); Bilirubin Total 0.3 mg/dL (0.2-1.0); Glucose Level 100 mg/dL (74-106); Potassium 3.9 mmol/L (3.5-5.1); Protein, Total 6.6 g/dL (6.4-8.2); Sodium Level 141 mmol/L (136-145)
[2018-08-21] MEDS ORDERED: POTASSIUM CL SA 10 MEQ TAB PO ONE (06:43)
[2018-08-21] MEDS: LISINOPRIL 10 MG TAB PO SCH (08:37)
[2018-08-21] MEDS: NEBIVOLOL HCL 20 MG TABLET PO SCH ×2 (08:37→08:40)
[2018-08-21] MEDS: CLOPIDOGREL 75 MG TABLET PO SCH (08:37)
[2018-08-21] MEDS: FONDAPARINUX SOD 7.5 MG/0.6 ML SQ SCH (08:56)
[2018-08-21 12:21] VITALS: O2SAT 98
[2018-08-21] MEDS ORDERED: HYDROMORPHONE HCL 1 MG/ML INJ IV PRN (12:46)
[2018-08-21 12:56] VITALS: BP 96/41; TEMP 97.5
[2018-08-21] MEDS ORDERED: HEPARIN 500 UNIT/5 ML SYR IV SCH (13:00)
--- NOTE | 2018-08-21 19:32 | CON ---
Date of Consultation: 08/19/[address] patient admitted to Dr. Xiong's service on 08/19/2018. He is being seen on 08/19/2018. Reason For Consultation: Chest pain and hypertension. History Of Present Illness: Mr. Serra had been here as recently as August 10, 2018, had an echocar diogram which was normal. Ruled out for an ME. Had a negative stress test recently by Dr. Patel. [facility] has not seen him since his last admission, but came in with substernal chest pressure. No radiatio n, not exertional. No PND, orthopnea, pedal edema, palpitations, or syncope. Past Medical History: Includes hypertension, dyslipidemia, coronary artery disease status post PCI x 2, multiple pulmonary embolus and factor V Leiden deficiency. Allergies: TO MORPHINE AND AMBIEN. Medications: At home include Bystolic, Plavix, Lipitor, Arixtra, Tylenol No. 3, and lisinopril. Review of Systems: Negative. Social History: Negative. Family History: Noncontributory. Physical Examination: Vital Signs: Stable. Afebrile. HEENT: Negative. Neck: Supple with no bruit. Chest: Clear. Cardiac: Revealed regular rhythm and rate. No murmurs, gallops, or rubs. Abdomen: Benign. Extremities: Revealed no clubbing, cyanosis, or edema. Diagnostic Data: All normal except for glucose of 241. EKG is normal. CPKs, troponin, MBs are norm al. Impression And Plan: 1.Stable angina. 2.Hypertension. 3.Dyslipidemia. 4.Coronary artery disease status post 2 percutaneous coronary interventions. 5.Multiple pulmonary emboli. 6.Factor V Leiden deficiency. 7.Allergy to morphine and Ambien. Mr. Serra just recently had a normal echo and normal stress test. We suggest he has a repeat heart catheterization. He needs to see Dr. Patel as he usually does. If he changes his mind and he wants us to take care of him, I will be happy to see him in the near future and set up a catheterization as an outpatient, but he can go home as far as I am concerned. I recommend increasing his Bystolic. NB/MODL Voice ID: [id number] Report ID: [id number]
--- NOTE | 2018-08-21 22:37 | P.DS ---
Admission Date: 08/19/18 Discharge Date: 08/21/18 Primary Care Provider: Dr. Patel (Washroom Operator) in [place] Disposition: AMA-LEFT AGAINST MEDICAL ADVIC Reason for Admission: Chest pain Brief History of Present Illness: This is a 48-year-old male with a history of PVD, factor 5 laden deficiency, 2 previous myocardial infarctions, 2 coronary stent placement admitted for chest pain. Per patient chest pain started the morning of admission while he was at rest. Denies any radiation, described as a sharp/pressure-like pain in the substernal area without any radiation. Alleviating or exacerbating factors. Patient did take nitro x3 which did not help. At the time of my exam, patient reported improved chest pain with Dilaudid, he was hemodynamically stable and was in no acute distress. He was alert oriented x3 Hospital Course: Patient was admitted for chest pain. He was being treated for his pain with IV pain medications, though he was asking for it on schedule every 2 hours. Nurses noted that he was on the phone joking and laughing right prior to asking of pain medications. At the time of my exam, he was in no acute distress, Vital signs were stable, and he was hemodynamically stable. He was also "need[ ing] his norco and zanaflex at the same time, along with IV dilaudid." I discussed the need to decrease IV pain medications with the patient. After leaving the room, I recieved a call from the nurse stating that the patient did not want his medications changed and because it was decreased, he was leaving AMA. Patient took out own IV and signed paper prior to leaving. Vital Signs/Physical Exam: Temp Pulse Resp BP Pulse Ox 97.5 F 90 20 96/41 L 97 08/21/18 12:00 08/21/18 12:00 08/21/18 12:00 08/21/18 12:00 08/21/18 12:00 General: Alert, In no apparent distress (sitting up in bed, watching TV, texting on phone without any discomfort. As soon as asked about pain, he stated that he has a lot of pain and needs his pain medicatinos. ), Oriented x3 HEENT: Atraumatic, PERRLA, EOMI Neck: Supple, JVD not distended Respiratory: Clear to auscultation bilaterally, Normal air movement Cardiovascular: Regular rate/rhythm, Normal S1 S2 Gastrointestinal: Normal bowel sounds, No tenderness Musculoskeletal: No tenderness Integumentary: No rashes Neurological: Normal speech, Normal tone, Normal affect Lymphatics: No axilla or inguinal lymphadenopathy Laboratory Data at Discharge: WBC 4.8 K/uL (4.3-10.9) D 08/21/18 04:25 Hgb 8.9 g/dL (13.6-17.9) L 08/21/18 04:25 Hct 27.6 % (39.6-49.0) L 08/21/18 04:25 Plt Count 345 K/uL (152-406) 08/21/18 04:25 PT 13.3 SECONDS (9.5-12.5) H 08/19/18 09:50 INR 1.13 08/19/18 09:50 Sodium 141 mmol/L (136-145) 08/21/18 04:25 Potassium 3.9 mmol/L (3.5-5.1) 08/21/18 04:25 BUN 19 mg/dL (7-18) H 08/21/18 04:25 Creatinine 0.90 mg/dL (0.55-1.3) 08/21/18 04:25 Glucose 100 mg/dL (74-106) 08/21/18 04:25 Phosphorus 3.5 mg/dL (2.5-4.9) 08/19/18 16:27 Magnesium 2.1 mg/dL (1.8-2.4) 08/19/18 09:50 Total Bilirubin 0.3 mg/dL (0.2-1.0) 08/21/18 04:25 AST 26 U/L (15-37) 08/21/18 04:25 ALT 18 U/L (12-78) 08/21/18 04:25 Alkaline Phosphatase 72 U/L (45-117) 08/21/18 04:25 Troponin I < 0.02 ng/mL (0.0-0.045) 08/20/18 02:00 Lipase 124 U/L (73-393) 08/19/18 09:50 Home Medications: Hydrocodone 10/APAP 325 [Adel 10325*] 1 tab PO Q4HP PRN 07/28/14 Tizanidine [Zanaflex*] 2 tab PO Q4HP PRN 07/29/14 Clopidogrel Bisulfate [Plavix*] 75 mg PO DAILY 02/19/17 Fondaparinux [Arixtra*] 7.5 mg PO DAILY 02/19/17 Lisinopril 10 mg PO DAILY 02/19/17 Nebivolol HCl [Bystolic*] 20 mg PO DAILY 08/09/18 Atorvastatin Calcium [Lipitor] 80 mg PO BEDTIME #30 tablet 08/10/18 Time spent managing pt's care (in minutes): 45
== END 2018-08-21 13:00 | disposition left against medical advice (07) ==
LOC: ER 09:26 → ERHOLD 11:06 → 2ND 13:25
PROVIDERS: ADMIT Family Medicine; ATTEND Family Medicine
DX: R07.9 Chest pain, unspecified (principal); I73.9 Peripheral vascular disease, unspecified; D68.2 Hereditary deficiency of other clotting factors; I25.2 Old myocardial infarction; Z95.5 Presence of coronary angioplasty implant and graft; I25.10 Atherosclerotic heart disease of native coronary artery without angina pectoris; I10 Essential (primary) hypertension
CPT/HCPCS: 36415; 71045; 71275; 80048; 80053; 80076; 80307; 81003; 83690; 83735; 83880; 84100; 84132; 84484; 85025; 85610; 93005; 94760; 96361; 96374; 96375; 99285; G0378; J1170; J1652; J2405; J7030; Q9967

== ENCOUNTER 2018-09-03 19:50 | Observation (INO) | payer BC ==
--- OUTSIDE RECORDS SUMMARY | 2018-09-03 19:53 | XMS REPORT | Clinical Summary ---
:1970 Author Organization [facility] Address [address] [place] [address] Care Team Providers Name Role Phone Asked, No Pcp Primary Care Provider Unavailable Allergies Active Allergy Reactions Severity Noted Date Comments Zolpidem 08/02/2017 Sleep walk. Morphine Rash Low 08/02/2017 Break out. Ketorolac 08/02/2017 Rashes Medications Medication Sig Dispensed Refills Start Date End Date Status clopidogrel Take 75 mg by 0 Active (PLAVIX) 75 mg mouth every tablet morning. atorvastatin Take 40 mg by 0 Active (LIPITOR) 40 MG mouth nightly. tablet HYDROcodone-acetami Take 1 tablet 0 Active nophen (NORCO) by mouth every 10-325 mg per 4 (four) hours tablet as needed for moderate pain. fondaparinux Inject 7.5 mg 0 Active (ARIXTRA) 7.5 under the skin mg/0.6 mL syringe every morning. tiZANidine Take 8 mg by 0 Active (ZANAFLEX) 4 MG mouth every 6 tablet (six) hours as needed for muscle spasms. buprenorphine HCl Apply 300 mcg 0 Active (BELBUCA) 300 mcg to cheek 2 film (two) times a day. lisinopril Take 5 mg by 0 Active (PRINIVIL,ZESTRIL) mouth every 5 mg tablet morning. promethazine Take 25 mg by 0 11/17/2017 Active (PHENERGAN) 25 MG mouth every 4 tablet (four) hours as needed. BYSTOLIC 20 mg Take 20 mg by 0 11/17/2017 Active tablet mouth every morning. nitroglycerin Place 0.4 mg 0 Active (NITROSTAT) 0.4 MG under the SL tablet tongue every 5 (five) minutes as needed. lisinopril Take 10 mg by 0 11/26/2017 Discontinued (PRINIVIL,ZESTRIL) mouth daily. 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, unspecified vessel or lesion type after 09/02/2017 Family History Medical History Relation Name Comments [...] Health Maintenance Due Date Last Done Comments MMR VACCINES (1 of 01/05/1972 Standard series) VARICELLA VACCINES (1 of 01/05/1984 2-dose adolescent series) INFLUENZA VACCINE 05/11/2018 09/09/2015, 08/11/2012 HEPATITIS B VACCINES Aged Out No longer eligible based on patient's age to complete this topic IPV VACCINES Aged Out No longer eligible based on patient's age to complete this topic MENINGOCOCCAL VACCINE Aged Out No longer eligible based on patient's age to complete this topic Procedures Procedure Name Priority Date/Time Associated Comments [...] Timed 12/14/2017 10:28 Results for this AM PROCUREMENT ENGINEER procedure are in the results section. DIRECT TISH' (MAURI) Timed 12/14/2017 10:28 Results for this AM PROCUREMENT ENGINEER procedure are in the results section. ANTIBODY IDENTIFICATION Timed 12/14/2017 10:28 Results for this AM PROCUREMENT ENGINEER procedure are in the results section. TYPE AND SCREEN Routine 12/14/2017 10:28 Results for this AM PROCUREMENT ENGINEER procedure are in the results section. HC COMPLETE BLD COUNT STAT 12/14/2017 8:35 Results for this W/AUTO DIFF AM PROCUREMENT ENGINEER procedure are in the results section. VANCOMYCIN LEVEL, Timed 12/14/2017 8:35 Results for this TROUGH AM PROCUREMENT ENGINEER procedure are in the results section. CT ANGIOGRAM PE CHEST Routine 12/13/2017 2:28 Results for this PM PROCUREMENT ENGINEER procedure are in the results section. BLOOD CULTURE, AEROBIC Routine 12/13/2017 10:40 Results for this & ANAEROBIC AM PROCUREMENT ENGINEER procedure are in the results section. INFLUENZA ANTIGEN Routine 12/13/2017 10:10 Results for this AM PROCUREMENT ENGINEER procedure are in the results section. ZZESTIMATED GFR Routine 12/13/2017 5:10 Results for this AM PROCUREMENT ENGINEER procedure are in the results section. HC COMPLETE BLD COUNT Routine 12/13/2017 5:10 Results for this W/AUTO DIFF AM PROCUREMENT ENGINEER procedure are in the results section. BASIC METABOLIC PANEL Routine 12/13/2017 5:10 Results for this AM PROCUREMENT ENGINEER procedure are in the results section. TROPONIN Timed 12/13/2017 12:07 Results for this AM PROCUREMENT ENGINEER procedure are in the results section. TROPONIN Timed 12/12/2017 2:47 Results for this PM PROCUREMENT ENGINEER procedure are in the results section. LIPID PANEL Routine 12/12/2017 2:47 Results for this PM PROCUREMENT ENGINEER procedure are in the results section. TROPONIN Timed 11/27/2017 11:47 Results for this AM PROCUREMENT ENGINEER procedure are in the results section. ECG 12-LEAD Routine 11/27/2017 11:02 Results for this AM PROCUREMENT ENGINEER procedure are in the results section. CBC WITH PLATELET AND Timed 11/27/2017 5:38 Results for this DIFFERENTIAL AM PROCUREMENT ENGINEER procedure are in the results section. BASIC METABOLIC PANEL Timed 11/27/2017 5:38 Results for this AM PROCUREMENT ENGINEER procedure are in the results section. ZZESTIMATED GFR Timed 11/27/2017 5:38 Results for this AM PROCUREMENT ENGINEER procedure are in the results section. TROPONIN Timed 11/27/2017 5:38 Results for this AM PROCUREMENT ENGINEER procedure are in the results section. TROPONIN Routine 11/26/2017 11:35 Results for this PM PROCUREMENT ENGINEER procedure are in the results section. ECG 12-LEAD Routine 11/26/2017 10:59 Results for this PM PROCUREMENT ENGINEER procedure are in the results section. after 09/02/2017 Results Transfuse RBC (06/15/2018 5:50 PM CDT)Only the most recent of2 resultswithin the time period is included.Troponin (05/13/2018 12:34 PM CDT)Only the most recent of9 resultswithin the time period is included. Troponin <0.300 0.000 - 0.300 ng/mL [facility] DEPARTMENT OF Comment: PATHOLOGY AND GENOMIC 0.30 - 1.49 ng/mlMay indicate increased risk of acute MEDICINE coronary syndrome. >=1.5 ng/mlConsistent with acute myocardial infarction. The diagnostic value of a single normal or non-diagnostic result is questionable.Serial samples at 2-6 hour intervals are required to rule out acute myocardial injury. Specimen Plasma specimen Performing Organization Address [facility] Phone Number [facility] DEPARTMENT PATHOLOGY AND [id number] [place] [address] [place] [address] [facility] Prothrombin time with INR (05/13/2018 6:30 AM CDT)Only the most recent of2 resultswithin the time period is included. Prothrombin time 12.6 12.0 - 15.0 sec [facility] DEPARTMENT OF PATHOLOGY AND [facility] INR 0.9 [facility] DEPARTMENT OF Comment: PATHOLOGY AND GENOMIC The International Normalized Ratio (INR) is a therapeutic MEDICINE monitoring tool for patients who are stable on oral anticoagulant therapy. An INR of 2.0-3.0 is suggested for deep vein thrombosis/pulmonary embolism. Specimen Blood Performing Organization Address [facility] Phone Number [facility] AND [id number] [place] [address] [place] [address] [facility] ECG 12 lead (05/13/2018 5:49 AM CDT)Only the most recent of4 resultswithin the time period is included. Ventricular rate 85 [facility] MUSE Atrial rate 85 [facility] IA interval 158 [facility] M[facility] QRSD interval 78 [...] are no longer present- Performing Organization Address [facility] Phone Number [facility] [address] [place] [address] Smear review (05/13/2018 12:35 AM CDT)Only the most recent of2 resultswithin the time period is included. Platelet slide review Antonia adequate [facility] DEPARTMENT OF PATHOLOGY AND GENOMIC MEDICINE Anisocytosis Moderate [facility] DEPARTMENT OF PATHOLOGY AND GENOMIC MEDICINE Tear drop cells Occasional [facility] OF PATHOLOGY AND GENOMIC MEDICINE Schistocytes Occasional [facility] OF PATHOLOGY AND GENOMIC MEDICINE Performing Organization Address [facility] Phone Number [facility] [address] [place] [address] [place] [address] [facility] Estimated GFR (05/13/2018 12:35 AM CDT)Only the most recent of4 resultswithin the time period is included. GFR Non Af Amer 80 mL/min/1.73 m2 [facility] DEPARTMENT OF PATHOLOGY AND GENOMIC MEDICINE GFR Af Amer >90 mL/min/1.73 m2 [facility] DEPARTMENT OF Comment: PATHOLOGY AND GENOMIC Chronic [...] Americans. Specimen Plasma specimen Performing Organization Address City/[facility] Phone Number [facility] [address] [place] [address] [place] [address] [facility] CBC with platelet and differential (05/13/2018 12:35 AM CDT)Only the most recent of5 resultswithin the time period is included. WBC 9.59 4.50 - 11.00 k/uL [facility] DEPARTMENT OF PATHOLOGY AND GENOMIC MEDICINE RBC 3.86 (L) 4.40 - 6.00 m/uL [facility] DEPARTMENT OF PATHOLOGY AND GENOMIC MEDICINE HGB 9.7 (L) 14.0 - 18.0 g/dL [facility] DEPARTMENT OF PATHOLOGY AND GENOMIC MEDICINE HCT 31.2 (L) 41.0 - 51.0 % [facility] DEPARTMENT OF PATHOLOGY AND GENOMIC MEDICINE MCV 80.8 (L) 82.0 - 100.0 fL [facility] DEPARTMENT OF PATHOLOGY AND GENOMIC MEDICINE MCH 25.1 (L) 27.0 - 34.0 pg [facility] DEPARTMENT OF PATHOLOGY AND GENOMIC MEDICINE MCHC 31.1 31.0 - 37.0 g/dL [facility] DEPARTMENT OF PATHOLOGY AND GENOMIC MEDICINE RDW - SD 75.7 (H) 37.0 - 55.0 fL [facility] OF PATHOLOGY AND GENOMIC MEDICINE MPV 8.9 8.8 - 13.2 fL [facility] DEPARTMENT OF PATHOLOGY AND GENOMIC MEDICINE Platelet count 248 150 - 400 k/uL [facility] DEPARTMENT OF PATHOLOGY AND GENOMIC MEDICINE Nucleated RBC 0.00 /100 WBC [facility] DEPARTMENT OF PATHOLOGY AND GENOMIC MEDICINE Neutrophils 45.8 39.0 - 69.0 % [facility] DEPARTMENT OF PATHOLOGY AND GENOMIC MEDICINE Lymphocytes 38.3 25.0 - 45.0 % [facility] DEPARTMENT OF PATHOLOGY AND GENOMIC MEDICINE Monocytes 15.3 (H) 0.0 - 10.0 % [facility] DEPARTMENT OF PATHOLOGY AND GENOMIC MEDICINE Eosinophils 0.3 0.0 - 5.0 % [facility] DEPARTMENT OF PATHOLOGY AND GENOMIC MEDICINE Basophils 0.1 0.0 - 1.0 % [facility] DEPARTMENT OF PATHOLOGY AND GENOMIC MEDICINE Specimen Blood Performing Organization Address City/State/Zipcode Phone Number [facility] AND [address] [employer] [place] [phone] [facility] Comprehensive metabolic panel (05/13/2018 12:35 AM CDT)Only the most recent of2 resultswithin the time period is included. Sodium 139 135 - 148 mEq/L [facility] DEPARTMENT OF PATHOLOGY AND GENOMIC MEDICINE Potassium 3.5 3.5 - 5.0 mEq/L [facility] DEPARTMENT OF PATHOLOGY AND GENOMIC MEDICINE Chloride 103 98 - 112 mEq/L [facility] DEPARTMENT OF PATHOLOGY AND GENOMIC MEDICINE CO2 24 24 - 31 mEq/L [facility] DEPARTMENT OF PATHOLOGY AND GENOMIC MEDICINE Anion gap 12@ANIO 7 - 15 mEq/L [facility] DEPARTMENT OF PATHOLOGY AND GENOMIC MEDICINE BUN 22 (H) 6 - 20 mg/dL [facility] DEPARTMENT OF PATHOLOGY AND GENOMIC MEDICINE Creatinine 1.0 0.7 - 1.2 mg/dL [facility] DEPARTMENT OF PATHOLOGY AND GENOMIC MEDICINE Glucose 102 (H) 65 - 99 mg/dL [facility] DEPARTMENT OF PATHOLOGY AND [employer] [facility] Calcium 8.1 (L) 8.3 - 10.2 mg/dL [facility] DEPARTMENT OF PATHOLOGY AND GENOMIC [facility] Protein 6.8 6.3 - 8.3 g/dL [facility] DEPARTMENT OF Comment: PATHOLOGY AND GENOMIC 4.6-7.0 g/dL MEDICINE 1 week 4.4-7.6 g/dL 7 months-1year5.1-7.3 g/dL 1-2 years5.6-7.5 g/dL >3 years6.0-8.0 g/dL 18-150 6.3-8.3 g/dL Albumin 4.1 3.5 - 5.0 g/dL [facility] DEPARTMENT OF PATHOLOGY AND GENOMIC [facility] A/G ratio 1.5 0.7 - 3.8 [facility] DEPARTMENT OF PATHOLOGY AND GENOMIC MEDICINE Alkaline phosphatase 62 40 - 129 U/L [facility] DEPARTMENT OF PATHOLOGY AND GENOMIC MEDICINE AST 16 10 - 50 U/L [facility] DEPARTMENT OF PATHOLOGY AND GENOMIC MEDICINE ALT 11 5 - 50 U/L [facility] DEPARTMENT OF PATHOLOGY AND [employer] [facility] Total bilirubin 0.4 0.0 - 1.2 mg/dL [facility] DEPARTMENT OF PATHOLOGY AND [employer] [facility] Specimen Plasma specimen Performing Organization Address [facility] Phone Number [facility] DEPARTMENT OF PATHOLOGY AND [address] [place] [address] [place] [address] [facility] Partial thromboplastin time, activated (05/02/2018 10:03 AM CDT) PTT 34.9 23.0 - 36.0 sec [facility] DEPARTMENT OF Comment: PATHOLOGY AND [facility] PTT therapeutic range for unfractionated heparin is MEDICINE 61.0-112.0 seconds which corresponds to Anti-Xa 0.3-0.7 U/ml. Specimen Blood Performing Organization Address [facility] Phone Number [facility] [address] [place] [address] [place] [address] [facility] D-dimer (05/02/2018 10:03 AM CDT) D-dimer <0.27 0.00 - 0.40 ug/mL FEU [facility] DEPARTMENT OF Comment: PATHOLOGY AND GENOMIC Units are ug/ml Fibrinogen Equivalent Unit. MEDICINE [...] and malignancies. Specimen Blood Performing Organization Address [facility] Phone Number [facility] DEPARTMENT OF PATHOLOGY AND [id number] [place] [address] [place], [place] [phone] [place] [address] Creatine kinase, total (CPK) (05/02/2018 10:03 AM CDT) Creatine kinase 150 39 - 308 U/L [facility] DEPARTMENT OF PATHOLOGY AND [facility] Specimen Plasma specimen Performing Organization Address [facility] Phone Number [facility] DEPARTMENT OF PATHOLOGY AND [id number] [place] [address] [place] [address] [employer] MEDICINE XR Chest 1 Vw Portable (05/02/2018 9:42 AM CDT) Narrative Performed At EXAMINATION:XR CHEST 1 VW PORTABLE RADIANT CLINICAL HISTORY:chest pain COMPARISON:Determined 2014 FINDINGS: The heart is normal in size. The mediastinum is unremarkable. The lungs are clear. A right-sided ported central catheter is in place its tip projects the superior vena cava above the right atrium IMPRESSION: No acute finding is visualized [id number] Procedure Note Hm Interface, Radiology Results Incoming [...] atrium IMPRESSION: No acute finding is visualized [id number] Performing Organization Address [facility] Phone Number [employer] [address] [place] [address] ECG ED Preliminary Interpretation - NOT AN ORDER (05/02/2018 9:27 AM CDT) Narrative Performed At Saeed Diana MD 05/02/20187:36 PM ECG ED Preliminary Interpretation - Not an Order Performed by: SAEED DIANA Authorized by: SAEED DIANA ECG reviewed by ED Physician in the absence of a bessemer converter blower: yes (read at 0921) Interpretation: Interpretation: normal Rate: ECG rate:87 ECG rate assessment: normal Rhythm: Rhythm: sinus rhythm Ectopy: Ectopy: none QRS: QRS axis:Normal Conduction: Conduction: normal ST segments: ST segments:Normal T waves: T waves: normal Direct Tish' (MAURI) (12/14/2017 10:28 AM PROCUREMENT ENGINEER) Direct Tish POS [facility] DEPARTMENT OF PATHOLOGY Comment: AND GENOMIC MEDICINE testing performed at [facility], called kian in [place] with critical 12/14/17 at 2000 Performing Organization Address [facility] Phone Number [facility] DEPARTMENT OF PATHOLOGY AND [address] [place] [address] [place] [address] GENOMIC MEDICINE Antibody identification (12/14/2017 10:28 AM PROCUREMENT ENGINEER) Antibody ID POS, Anti-EComment: ADDING [facility] DEPARTMENT OF PATHOLOGY AND [facility] GENOMIC MEDICINE Antibody ID POS, Anti-KellComment: ADDING [facility] DEPARTMENT OF PATHOLOGY AND [facility] GENOMIC MEDICINE Antibody ID POS, Bg AntibodyComment: [facility] DEPARTMENT OF PATHOLOGY AND ADDING [facility] GENOMIC MEDICINE Performing Organization Address [facility] Phone Number [facility] DEPARTMENT OF PATHOLOGY AND [address] [place] [address] [place] [address] GENOMIC MEDICINE Prepare RBC, 2 Units (12/14/2017 10:28 AM PROCUREMENT ENGINEER) Product name Red Blood Cells -1, [facility] DEPARTMENT OF Leukored PATHOLOGY AND GENOMIC MEDICINE Unit number [id number] [facility] DEPARTMENT OF PATHOLOGY AND GENOMIC MEDICINE Product code [id number] [facility] DEPARTMENT OF PATHOLOGY AND GENOMIC MEDICINE Dispense status Transfused [facility] DEPARTMENT OF PATHOLOGY AND GENOMIC MEDICINE Blood expiration date [facility] DEPARTMENT OF PATHOLOGY AND GENOMIC MEDICINE Blood type code 6200 [facility] DEPARTMENT OF PATHOLOGY AND GENOMIC MEDICINE Blood type A POSITIVE [facility] DEPARTMENT OF PATHOLOGY AND GENOMIC MEDICINE Product name Red Blood Cells -1, [facility] DEPARTMENT OF Leukored PATHOLOGY AND GENOMIC MEDICINE Unit number [id number] [facility] DEPARTMENT OF PATHOLOGY AND GENOMIC MEDICINE Product code [id number] [facility] DEPARTMENT OF PATHOLOGY AND GENOMIC MEDICINE Dispense status Transfused [facility] DEPARTMENT OF PATHOLOGY AND GENOMIC MEDICINE Blood expiration date [id number] [facility] DEPARTMENT OF PATHOLOGY AND GENOMIC MEDICINE Blood type code 6200 [facility] DEPARTMENT OF PATHOLOGY AND GENOMIC MEDICINE Blood type A POSITIVE [facility] DEPARTMENT OF PATHOLOGY AND GENOMIC MEDICINE Performing Organization Address [facility] Phone [place] [facility] DEPARTMENT OF PATHOLOGY AND [address] [place] [address] [place] [address] GENOMIC MEDICINE Type and screen (12/14/2017 10:28 AM PROCUREMENT ENGINEER) ABO grouping AB [facility] DEPARTMENT OF PATHOLOGY AND GENOMIC MEDICINE Rh type POS [facility] DEPARTMENT OF PATHOLOGY AND GENOMIC MEDICINE Antibody screen POS [facility] DEPARTMENT OF PATHOLOGY AND GENOMIC MEDICINE Specimen Blood Performing Organization Address [facility] Phone Number [facility] DEPARTMENT OF PATHOLOGY AND [address] [place] [address] Dr [place], [place] [id number] [place] [address] Vancomycin level, trough (12/14/2017 8:35 AM PROCUREMENT ENGINEER) Vancomycin, trough 6.1 (L) 10.0 - 20.0 ug/mL [facility] DEPARTMENT OF Comment: PATHOLOGY AND GENOMIC Therapeutic Ranges: MEDICINE Peak 30.0 - 40.0 ug/mL Bhmbhz83.0 - 20.0 ug/mL Specimen Serum Performing Organization Address [facility] Phone Number [facility] PATHOLOGY AND [address] [place] [address] [place] [address] [facility] CT Angiogram Pe Chest (12/13/2017 2:28 PM PROCUREMENT ENGINEER) Narrative Performed At EXAMINATION: [facility] CT ANGIOGRAM PE CHEST CLINICAL HISTORY:47 years [...] 2. Mild scarring at the lung bases. [id number] Procedure Note Interface, Radiology Results Incoming - 12/13/2017 2:52 PM PROCUREMENT ENGINEER EXAMINATION: CT ANGIOGRAM PE CHEST CLINICAL HISTORY:47 [...] 2. Mild scarring at the lung bases. [id number] Performing Organization Address [facility] Phone Number [facility] [address] [place] [address] Blood culture, aerobic & anaerobic (12/13/2017 10:40 AM PROCUREMENT ENGINEER) Blood culture isolate No growth after 5 days of incubation. [facility] DEPARTMENT OF Comment: PATHOLOGY AND GENOMIC Specimen Information MEDICINE Specimen Source: Blood Specimen Site: Line, port-a-cath Right Specimen Blood - Line, port-a-cath Performing Organization Address City/[facility] Phone Number [facility] DEPARTMENT OF PATHOLOGY AND [address] [place] [phone] GENOMIC MEDICINE Influenza antigen (12/13/2017 10:10 AM PROCUREMENT ENGINEER) Influenza antigen Negative for Influenza A/B antigen. [facility] DEPARTMENT OF Comment: PATHOLOGY AND GENOMIC Specimen Information MEDICINE Specimen Source: Nares Specimen Site: Not specified Specimen Nares - Not specified Performing Organization Address [facility]/Zipcode Phone Number [facility] PATHOLOGY AND [id number] [place] [address] [place] [address] [facility] MEDICINE Basic metabolic panel (12/13/2017 5:10 AM PROCUREMENT ENGINEER)Only the most recent of2 resultswithin the time period is included. Sodium 133 (L) 135 - 148 mEq/L [facility] DEPARTMENT OF PATHOLOGY AND GENOMIC MEDICINE Potassium 4.1 3.5 - 5.0 mEq/L [facility] DEPARTMENT OF PATHOLOGY AND GENOMIC MEDICINE Chloride 97 (L) 98 - 112 mEq/L [facility] DEPARTMENT OF PATHOLOGY AND GENOMIC MEDICINE CO2 24 24 - 31 mEq/L [facility] DEPARTMENT OF PATHOLOGY AND GENOMIC MEDICINE Anion gap 12 7 - 15 mEq/L [facility] DEPARTMENT OF Comment: PATHOLOGY AND GENOMIC Starting from January , anion gap calculation MEDICINE no longer incorporates potassium. Please note the change. BUN 20 6 - 20 mg/dL [facility] DEPARTMENT OF PATHOLOGY AND GENOMIC MEDICINE Creatinine 1.3 (H) 0.7 - 1.2 mg/dL [facility] DEPARTMENT OF PATHOLOGY AND GENOMIC MEDICINE Glucose 119 (H) 65 - 99 mg/dL [facility] DEPARTMENT OF PATHOLOGY AND GENOMIC MEDICINE Calcium 8.8 8.3 - 10.2 mg/dL [facility] DEPARTMENT OF PATHOLOGY AND GENOMIC MEDICINE Specimen Plasma specimen Performing Organization Address [facility] Phone [facility] DEPARTMENT OF PATHOLOGY AND [id number] [place] [address] GENOMIC MEDICINE Lipid panel (12/12/2017 2:47 PM PROCUREMENT ENGINEER) Cholesterol 189 <200 mg/dL [facility] DEPARTMENT OF PATHOLOGY AND GENOMIC MEDICINE Triglycerides 65 <150 mg/dL [facility] DEPARTMENT OF PATHOLOGY AND GENOMIC MEDICINE HDL cholesterol 72 >40 mg/dL [facility] DEPARTMENT OF PATHOLOGY AND GENOMIC MEDICINE LDL cholesterol 116 (H)Comment: Result <100 mg/dL [facility] DEPARTMENT obtained by direct LDL PATHOLOGY AND GENOMIC measurement MEDICINE Lipid panel interpretation SeeBelow [facility] DEPARTMENT OF Comment: PATHOLOGY AND GENOMIC Total Cholesterol (mg/dL) MEDICINE <200 Desirable [id number]-epfg >=240High Triglycerides (mg/dL) <150 Normal [id number]-mmtc 200-499High >=500Very high HDL Cholesterol (mg/dL) <40Low (male) <40Low (female) LDL Cholesterol (mg/dL) <100 Optimal 100-129Near or above optimal [phone]-nklw 160-189High >=190Very high Risk Catergories that modify [...] Phone Number [facility] DEPARTMENT OF PATHOLOGY AND [id number] [place] [address] [place] MEDICINE after 09/02/2017 Insurance Payer Benefit Plan / Group Subscriber ID Type Phone Address [employer] EXCHANGE [employer] HMO EXCH xxxxxxxxxxxx Exchange (Work) [phone] Advance Directives Patient has advance care planning documents, and code status on file. For more information, please contact:[place] [address] Code Status Date Activated Date Inactivated Comments Full Code 11/26/2017 10:45 PM 11/28/2017 1:56 AM Code Status decision reached by: Patient
--- OUTSIDE RECORDS SUMMARY | 2018-09-03 19:54 | XMS REPORT | Clinical Summary ---
:[address] [facility] Address [address] [place] [address] Care Team Providers Name Role Phone Blanco [...] hours as per tablet needed for Pain. tiZANidine Take 2 tablets (8 30 tablet [...] mouth 8 19 5 MG tablet daily. fondaparinux Inject 7.5 mg 0 Active (ARIXTRA) 7.5 subcutaneously mg/0.6 mL Syrg daily. injection tiZANidine Take 8 mg by mouth 0 04/26/20 Discontinued (ZANAFLEX) 4 MG every 4 (four) 18 tabletIndications: hours as needed . Muscle Spasm clopidogrel Take 75 mg by 0 09/02/20 Discontinued (PLAVIX) 75 mg mouth daily. 18 tablet lisinopril Take 5 mg by mouth 0 01/23/20 Discontinued (PRINIVIL,ZESTRIL) daily . 18 10 MG tablet atorvastatin Take 40 mg by 0 09/02/20 Discontinued (LIPITOR) 40 MG mouth nightly. 18 tablet fondaparinux Inject 7.5 mg 0 04/26/20 [...] as needed for up to 10 days. warfarin (COUMADIN) Take 2 tablets (15 30 tablet 0 09/02/20 Discontinued 7.5 MG tablet mg total) by mouth 8 18 every evening. Active Problems Problem Noted Date Acute chest pain 09/02/2018 Chest pain of unknown etiology 02/08/2017 Chest pain 02/08/2017 Heart attack 08/11/2016 Chest pain of uncertain etiology 08/14/2015 History of pericarditis 04/12/2015 Pulmonary embolus 12/09/2012 Chronic back pain Hypertension Factor 5 Leiden mutation, heterozygous Port-A-Cath in place Encounters Date Type Specialty Care Team Description 09/02/2018 - Emergency General Internal Aleks Robbins Acute chest pain ( Primary Dx); 09/03/2018 Medicine DO Joel Tachycardia; Issac Garcia Other pulmonary embolism without acute cor pulmonale, unspecified chronicity (HCC); MD Ly Obesity (BMI 30-39.9); Hypokalemia 09/02/2018 Travel 05/24/2018 Emergency Emergency Medicine Ros Wade Recurrent pulmonary embolism (HCC) (Primary Dx); MD Raquel Factor 5 Leiden mutation, heterozygous (HCC); Chest pain in adult; Sinus tachycardia; Lactic acidosis 05/24/2018 Orders Only General Internal Medicine 04/18/2018 Orders Only General Internal Medicine 04/17/2018 - Hospital Encounter General Internal Gilles Flores DO Other acute pulmonary embolism without acute cor pulmonale (HCC) (Primary Dx); 04/26/2018 Medicine Primo Bermudez Chest pain, unspecified type; Toñito Garza MD Tachycardia; Factor 5 Leiden mutation, heterozygous (HCC); SOB (shortness of breath); Other chronic pulmonary embolism without acute cor pulmonale (HCC) 01/31/2018 - Hospital Encounter General Internal Winston Daniels 02/01/2018 Medicine MD Kin Pritchard Salman Siraj, MD 01/31/2018 Orders Only Yoseph Ortega, ADRIANA 01/24/2018 Orders Only General Internal Medicine 01/22/2018 - Hospital Encounter General Internal Charissa, Mustaq 01/25/2018 Medicine MD Dominique Cespedes, MD Jeremiah Prieto Bhagwat Purushottam, MD Aly, Wiliam Roth MD after 09/02/2017 Family History Medical History Relation [...] Vital Sign Reading Time Taken Blood Pressure 125/79 09/03/2018 7:16 AM WHITE MIXING OPERATOR Pulse 80 09/03/2018 7:16 AM WHITE MIXING OPERATOR Temperature 35.7 C (96.2 F) 09/03/2018 7:16 AM WHITE MIXING OPERATOR Respiratory Rate 17 09/03/2018 7:16 AM WHITE MIXING OPERATOR Oxygen Saturation 100% 09/03/2018 7:16 AM WHITE MIXING OPERATOR Inhaled Oxygen Concentration - - Weight 90.7 kg (200 lb) 09/02/2018 10:26 AM WHITE MIXING OPERATOR Height 170.2 cm (5' 7") 09/02/2018 10:26 AM WHITE MIXING OPERATOR Body Mass Index 31.32 09/02/2018 10:26 AM WHITE MIXING OPERATOR Plan of Treatment Health Maintenance Due Date Last Done Comments INFLUENZA VACCINE 07/11/2018 Procedures Procedure Name Priority Date/Time Associated Comments Diagnosis (MANUAL DIFFERENTIAL) Routine 09/03/2018 8:16 Results for this AM WHITE MIXING OPERATOR procedure are in the results section. CBC W/PLT COUNT & AUTO Routine 09/03/2018 8:16 Results for this DIFFERENTIAL AM WHITE MIXING OPERATOR procedure are in the results section. CBC W/PLT COUNT & AUTO Routine 09/03/2018 8:16 Results for this DIFFERENTIAL AM WHITE MIXING OPERATOR procedure are in the results section. CBC W/PLT COUNT & AUTO STAT 09/03/2018 3:33 Results for this DIFFERENTIAL AM WHITE MIXING OPERATOR procedure are in the results section. CBC W/PLT COUNT & AUTO STAT 09/03/2018 3:33 Results for this DIFFERENTIAL AM WHITE MIXING OPERATOR procedure are in the results section. HEMOGLOBIN A1C STAT 09/03/2018 3:33 Results for this AM WHITE MIXING OPERATOR procedure are in the results section. LIPID PANEL STAT 09/03/2018 3:33 Results for this AM WHITE MIXING OPERATOR procedure are in the results section. BASIC METABOLIC PANEL (7) STAT 09/03/2018 3:33 Results for this AM WHITE MIXING OPERATOR procedure are in the results section. TROPONIN I STAT 09/03/2018 3:33 Results for this AM WHITE MIXING OPERATOR procedure are in the results section. TROPONIN I STAT 09/02/2018 2:50 Results for this PM WHITE MIXING OPERATOR procedure are in the results section. CT CHEST PE TEST DESIGN STAT 09/02/2018 7:51 Results for this AM WHITE MIXING OPERATOR procedure are in the results section. XR CHEST 1 VIEW STAT 09/02/2018 6:54 Results for this PORTABLE/BEDSIDE AM WHITE MIXING OPERATOR procedure are in the results section. CBC W/PLT COUNT & AUTO STAT 09/02/2018 6:39 Results for this DIFFERENTIAL AM WHITE MIXING OPERATOR procedure are in the results section. B-TYPE NATRIURETIC FACTOR STAT 09/02/2018 6:39 Results for this (BNP) AM WHITE MIXING OPERATOR procedure are in the results section. PT/APTT STAT 09/02/2018 6:39 Results for this AM WHITE MIXING OPERATOR procedure are in the results section. CBC W/PLT COUNT & AUTO STAT 09/02/2018 6:39 Results for this DIFFERENTIAL AM WHITE MIXING OPERATOR procedure are in the results section. TROPONIN I STAT 09/02/2018 6:39 Results for this AM WHITE MIXING OPERATOR procedure are in the results section. MAGNESIUM STAT 09/02/2018 6:39 Results for this AM WHITE MIXING OPERATOR procedure are in the results section. BASIC METABOLIC PANEL (7) STAT 09/02/2018 6:39 Results for this AM WHITE MIXING OPERATOR procedure are in the results section. ED ECG INTERPRETATION Routine 09/02/2018 6:33 Results for this AM WHITE MIXING OPERATOR procedure are in the results section. REPORT OF PROCEDURE - 05/25/2018 4:21 ENDOSCOPY [...] 366 ms QTC Calculation(Bazett) 430 ms P [place] 44 degrees R [place] 29 degrees T [place] 12 degrees Sinus rhythm with occasional Premature ventricular complexes Otherwise normal ECG TROPONIN I Routine 01/22/2018 1:16 PM CDT CREATINE KINASE (CK), Routine 01/22/2018 1:16 PM CDT Results for this procedure TOTAL AND MB are in the results section. after 09/02/2017 Results Manual Differential (09/03/2018 8:16 AM WHITE MIXING OPERATOR)Only the most recent of9 resultswithin the time period is included. % Neutros (manual) 39 % [facility] % Lymphs (manual) 44 % [facility] % Monos (manual) 13 % [facility] % Eos (manual) 4 % [facility] # Neutros (manual) 1.91 1.80 - 8.00 K/L [facility] # Lymphs (manual) 2.16 1.48 - 4.50 K/L [facility] # Monos (manual) 0.64 0.00 - 1.30 K/L [facility] # Eos (manual) 0.20 0.00 - 0.50 K/L [facility] Total Counted 100 [facility] WBC Morphology Normal [facility] RBC Morphology Normal [facility] Large Platelet Present [facility] Specimen Blood - Central Venous Line Performing Organization Address City/State/Zipcode Phone Number [facility] [address] [place] [address] CBC with platelet count + automated diff (09/03/2018 8:16 AM WHITE MIXING OPERATOR)Only the most recent of12 resultswithin the time period is included. WBC 4.9 4.0 - 10.0 K/L [facility] RBC 3.69 (L) 4.20 - 5.80 M/L [facility] Hemoglobin 8.5 (L) 13.0 - 16.8 GM/DL [facility] Hematocrit 28.7 (L) 36.0 - 50.0 % [facility] MCV 77.8 (L) 82.0 - 99.0 fL [facility] MCH 23.0 (L) 27.0 - 33.0 pg [facility] MCHC 29.6 (L) 32.0 - 36.0 GM/DL [facility] RDW 18.6 (H) 12.0 - 15.0 % [facility] Platelets 305 150 - 430 K/CU MM [facility] MPV 9.1 6.0 - 11.5 fL [facility] nRBC 0 0 - 0 /100 WBC [facility] Specimen Blood - Central Venous Line Performing Organization Address [facility] Phone Number [address] [address] Troponin I (09/03/2018 3:33 AM WHITE MIXING OPERATOR)Only the most recent of11 resultswithin the time period is included. Troponin I <0.03 0.00 - 0.15 ng/mL [facility] Specimen Blood Performing Organization Address [facility] Phone Number [address] [address] [phone] Hemoglobin A1c (09/03/2018 3:33 AM WHITE MIXING OPERATOR) Hemoglobin A1C 5.7 4.3 - 6.1 % [facility] Specimen Blood Performing Organization Address [facility] Phone Number [address] [address] Lipid panel (09/03/2018 3:33 AM WHITE MIXING OPERATOR)Only the most recent of2 resultswithin the time period is included. Triglycerides 122 mg/dL [facility] Cholesterol 201 mg/dL [facility] HDL 39 mg/dL [facility] LDL Calculated 138 mg/dL [facility] Specimen Blood Narrative Performed At Triglyceride Reference Range: [facility] Low Risk <150 [id number] High Risk 200-499 Very High Risk>=500 Cholesterol Reference Range: Low Risk <200 [id number] High Risk>240 HDL Cholesterol Reference Range: Low Risk >=60 High Risk <40 LDL Cholesterol Reference Range: Optimal<100 Near [id number] [id number] Sglp117-580 Very High >=190 Performing Organization Address [facility] Phone Number [facility] [address] [place] [phone] Basic metabolic panel (09/03/2018 3:33 AM WHITE MIXING OPERATOR)Only the most recent of10 resultswithin the time period is included. Sodium 138 135 - 148 meq/L [facility] Potassium 3.5 (L) 3.6 - 5.5 meq/L [facility] Chloride 106 98 - 106 meq/L [facility] CO2 24 20 - 29 meq/L [facility] BUN 13 10 - 26 mg/dL [facility] Creatinine 0.94 0.50 - 1.20 mg/dL [facility] Glucose 121 (H) 70 - 110 mg/dL [facility] Calcium 8.3 (L) 8.5 - 10.5 mg/dL [facility] EGFR 86Comment: ESTIMATED GFR IS NOT mL/min/1.73 sq m [facility] ACCURATE CREATININE CLEARANCE IN PREDICTING GLOMERULAR FILTRATION RATE. ESTIMATED GFR IS NOT APPLICABLE FOR DIALYSIS PATIENTS. Specimen Blood Performing Organization Address City/State/Zipcode Phone Number [facility] [address] [place] [address] CT chest PE test design (09/02/2018 7:51 AM WHITE MIXING OPERATOR)Only the most recent of4 resultswithin the time period is included. Narrative Performed At FINAL REPORT [place] INDICATION: 48-year-old male with chest pain. Evaluate for pulmonary embolism. COMPARISON: Chest radiograph September 02, [address] PE protocol May 24, 2018 TECHNIQUE: Chest CT exam WITH intravenous contrast, PE protocol. The exam was performed according to our department dose-optimization protocol, which includes automated exposure control, adjustments of mA and kV according to patient size. Iterative reconstructions are also sometimes employed. FINDINGS: Right lateral basal segmental embolus (axial image 100) is again demonstrated. Left medial basal subsegmental embolus, demonstrated on May 24, has resolved. No new pulmonary embolus is demonstrated. No pulmonary infarct. No dissection of the thoracic aorta is demonstrated; ascending thoracic aorta is not well evaluated because of cardiac motion artifact. Thoracic aorta is normal in size and no calcified plaque of the thoracic aorta. Heart is normal in size and there is no pericardial effusion. There is a right chest port that terminates at the cavoatrial junction. No pneumonia, pneumothorax, pulmonary edema, or pleural effusion is demonstrated. Central airways are clear. No mediastinal or hilar lymphadenopathy is demonstrated. Esophagus, visualized upper abdomen, and visualized thyroid gland unremarkable. Osseous structures unremarkable. IMPRESSION: No change in right basal segmental embolus and resolved left basal segmental embolus. No new pulmonary embolism. No pulmonary infarct. Signed: Perry Garg MD Report Verified Date/Time:09/02/2018 08:14:32 Reading Location: [facility] Diagnostic Imaging Reading Room - [place] [address] Procedure Note Interface, External Ris In - 09/02/2018 8:16 AM WHITE MIXING OPERATOR FINAL REPORT INDICATION: 48-year-old male with chest pain. Evaluate for pulmonary embolism. COMPARISON: Chest radiograph September 02, [address] PE protocol May 24, 2018 TECHNIQUE: Chest CT exam WITH intravenous contrast, PE protocol. The exam was performed according to our department dose-optimization protocol, which includes automated exposure control, adjustments of mA and kV according to patient size. Iterative reconstructions are also sometimes employed. FINDINGS: Right lateral basal segmental embolus (axial image 100) is again demonstrated. Left medial basal subsegmental embolus, demonstrated on May 24, has resolved. No new pulmonary embolus is demonstrated. No pulmonary infarct. No dissection of the thoracic aorta is demonstrated; ascending thoracic aorta is not well evaluated because of cardiac motion artifact. Thoracic aorta is normal in size and no calcified plaque of the thoracic aorta. Heart is normal in size and there is no pericardial effusion. There is a right chest port that terminates at the cavoatrial junction. No pneumonia, pneumothorax, pulmonary edema, or pleural effusion is demonstrated. Central airways are clear. No mediastinal or hilar lymphadenopathy is demonstrated. Esophagus, visualized upper abdomen, and visualized thyroid gland unremarkable. Osseous structures unremarkable. IMPRESSION: No change in right basal segmental embolus and resolved left basal segmental embolus. No new pulmonary embolism. No pulmonary infarct. Signed: Perry Garg MD Report Verified Date/Time: 09/02/2018 08:14:32 Reading Location: [facility] Diagnostic Imaging Reading Room - [place] [address] Performing Organization Address City/State/Zipcode Phone Number [facility] XR chest 1 view portable / bedside (09/02/2018 6:54 AM WHITE MIXING OPERATOR)Only the most recent of2 resultswithin the time period is included. Narrative Performed At FINAL REPORT GE [facility] Chest one view. Clinical history: CHEST PAIN Comparison: Chest radiograph 05/24/2018. Technique: A single frontal view of the chest was obtained. Findings: There is a right IJ Port-A-Cath with tip in the SVC/RA junction. The heart is normal in size. The aorta is uncoiled. There is no focal pulmonary consolidation, pleural effusion or pneumothorax. There is no pulmonary edema. The bony thorax is unremarkable. Impression: No focal pulmonary consolidation. Signed: Dennis Suarez MD Report Verified Date/Time:09/02/2018 07:10:11 Reading Location: [address] Body Reading Room Procedure Note Interface, External Ris In - 09/02/2018 7:12 AM WHITE MIXING OPERATOR FINAL REPORT Chest one view. Clinical history: CHEST PAIN Comparison: Chest radiograph 05/24/2018. Technique: A single frontal view of the chest was obtained. Findings: There is a right IJ Port-A-Cath with tip in the SVC/RA junction. The heart is normal in size. The aorta is uncoiled. There is no focal pulmonary consolidation, pleural effusion or pneumothorax. There is no pulmonary edema. The bony thorax is unremarkable. Impression: No focal pulmonary consolidation. Signed: Dennis Suarez MD Report Verified Date/Time: 09/02/2018 07:10:11 Reading Location: [address] Body Reading Room Performing Organization Address City/State/Zipcode Phone Number [facility] PT/PTT (09/02/2018 6:39 AM WHITE MIXING OPERATOR)Only the most recent of4 resultswithin the time period is included. Protime 11.5 9.3 - 12.0 sec [facility] INR 1.1 <=5.9 [facility] PTT 139.2 (HH) 23.0 - 35.0 sec [facility] Specimen Blood - Line, Venous Narrative Performed At RECOMMENDED COUMADIN/WARFARIN INR THERAPY RANGES [facility] STANDARD DOSE: 2.0 - 3.0 Includes: PROPHYLAXIS for venous thrombosis, systemic embolization; TREATMENT for venous thrombosis and/or pulmonary embolus. HIGH RISK: Target INR is 2.5-3.5 for patients with mechanical heart valves. Final Information (Auto Output) Final Information (Auto Output) Final Information (Auto Output) Performing Organization Address [facility] Phone Number [address] [address] B-type Natriuretic Factor (BNP) (09/02/2018 6:39 AM WHITE MIXING OPERATOR)Only the most recent of4 resultswithin the time period is included. BNP 150 (H) 0 - 100 pg/mL [facility] Specimen Blood - Line, Venous Performing Organization Address [facility] Phone Number [address] [address] Magnesium (09/02/2018 6:39 AM WHITE MIXING OPERATOR)Only the most recent of2 resultswithin the time period is included. Magnesium 2.2 1.5 - 3.0 mg/dL [facility] Specimen Blood - Line, Venous Performing Organization Address [facility] Number [address] [address] ECG/EKG Interpretation (09/02/2018 6:33 AM WHITE MIXING OPERATOR)Only the most recent of3 resultswithin the time period is included. Narrative Performed At Aleks Robbins DO 09/02/20188:52 AM ECG/EKG Interpretation Date/Time: 09/02/2018 6:28 AM Performed by: Aleks Robbins DO Authorized by: Aleks Robbins DO The ECG was interpreted by ED physician. The ECG is interpreted as sinus tachycardia. Rate is tachycardic. Heart rate is [address] segments normal. [place] is normal. Clinical Impression: non-specific ECGECG reviewed and does not meet STEMI criteria. Patient tolerance: Patient tolerated the procedure well with no immediate complications EKG-SCANNED (05/25/2018 4:21 PM CDT)Only the most recent of5 resultswithin the time period is included. Narrative Performed At Lactic acid, venous, whole blood (05/24/2018 2:18 PM CDT)Only the most recent of2 resultswithin the time period is included. Lactate, Venous 1.3 0.5 - 2.2 mmol/L [facility] Specimen Blood Narrative Performed At [facility] Effective 02/12/2016: Units/Reference Range Change New: 0.5-2.2 mmol/LPrevious: 5-18 mg/dL Performing Organization Address [facility] Phone Number [facility] [address], [place] [phone] Urinalysis w/Microscopic + Reflex to Culture (05/24/2018 1:51 PM CDT) Color, UA Yellow [facility] Clarity, UA Clear [facility] Specific [place], UA 1.010 1.001 - 1.035 [facility] pH, UA 7.0 5.0 - 8.0 [facility] Protein, UA Negative Negative [facility] Glucose, UA Negative Negative [facility] Ketones, UA Negative Negative [facility] Bilirubin, UA Negative Negative [facility] Blood, UA Negative Negative [facility] Nitrite, UA Negative Negative [facility] Leukocytes, UA Negative Negative [facility] Urobilinogen, UA 0.2 0.2 - 1.0 mg/dL [facility] Bacteria, UA None Seen [facility] RBC, UA None Seen /HPF [facility] WBC, UA <5 /HPF [facility] SQUAMOUS EPITHELIAL None Seen /HPF [facility] Specimen Source [facility] Specimen Urine - Urine, Clean Catch Performing Organization Address [facility] Phone Number [facility] [address], [place] [phone] Blood culture (05/24/2018 12:50 PM CDT)Only the most recent of2 resultswithin the time period is included. Result No growth in 5 days [facility] Specimen Blood - Line, Venous Performing Organization Address [facility]/Zipcode Phone Number [facility] [address], [place] [phone] Creatine Kinase (CK), Total and MB (not available at [facility]) (2017 9:55 AM CDT)Only the most recent of3 resultswithin the time period is included. Total CK 76 40 - 250 U/L [facility] CK-MB 1.2 0.0 - 4.9 ng/mL [facility] MB Relative Index 1.6 % [facility] Specimen Blood - Line, Venous Narrative Performed At CK-MB Reference Range: [facility] <5 Normal 5-10 Borderline >10Abnormal Performing Organization Address [facility] Phone Number [facility] [address] [place] [address] Hepatic function panel (05/24/2018 9:55 AM CDT) Protein, Total 7.0 6.0 - 8.5 gm/dL [facility] Albumin 4.3 3.5 - 5.0 g/dL [facility] Total Bilirubin 0.4 0.1 - 1.2 mg/dL [facility] Bilirubin, Direct 0.2 0.0 - 0.4 mg/dL [facility] Alkaline Phosphatase 70 30 - 115 U/L [facility] AST 18 5 - 40 U/L [facility] ALT 13 5 - 50 U/L [facility] Specimen Blood Performing Organization Address [facility] Number [address] [address] RHYTHM STRIP - SCAN (04/27/2018 12:51 PM CDT)Only the most recent of3 resultswithin the time period is included. Narrative Performed At Prothrombin time/INR (04/26/2018 5:08 AM CDT)Only the most recent of8 resultswithin the time period is included. Protime 21.9 (H) 9.3 - 12.0 sec [facility] INR 2.1 <=5.9 [facility] Specimen Blood Narrative Performed At [facility] RECOMMENDED COUMADIN/WARFARIN INR THERAPY RANGES STANDARD DOSE: 2.0 - 3.0 Includes: PROPHYLAXIS for venous thrombosis, systemic embolization; TREATMENT for venous thrombosis and/or pulmonary embolus. HIGH RISK: Target INR is 2.5-3.5 for patients with mechanical heart valves. Final Information (Auto Output) Final Information (Auto Output) Performing Organization Address [facility] Phone Number [address] [address] [phone] aPTT (04/26/2018 12:43 AM CDT)Only the most recent of18 resultswithin the time period is included. PTT >150.0 (HH) 23.0 - 35.0 sec [facility] Specimen Blood Narrative Performed At Final Information (Auto Output) [facility] Performing Organization Address [facility] Phone Number [facility] [address] [place] [address] TRANSFUSION SERVICE REPORT - SCAN (04/21/2018 6:05 PM CDT)Only the most recent of3 resultswithin the time period is included. Narrative Performed At Prepare Leuko-Red RBC (04/20/2018 11:54 PM CDT) Unit ABO A Pos [facility] UNIT NUMBER [id number] [facility] Status TRANSFUSED [facility] Blood Bank Product RED BLOOD CELLS [facility] PRODUCT CODE [id number] [facility] CROSSMATCH COMPATIBLE [facility] Specimen Other Performing Organization Address [facility] Phone Number [facility] CBC (Hemogram only) (04/20/2018 9:16 PM CDT)Only the most recent of2 resultswithin the time period is included. WBC 7.0 4.0 - 10.0 K/L [facility] RBC 3.89 (L) 4.20 - 5.80 M/L [facility] Hemoglobin 8.8 (L) 13.0 - 16.8 GM/DL [facility] Hematocrit 27.6 (L) 40.0 - 50.0 % [facility] MCV 70.8 (L) 82.0 - 98.0 fL [facility] MCH 22.6 (L) 27.0 - 33.0 pg [facility] MCHC 32.0 32.0 - 36.0 GM/DL [facility] RDW 20.0 (H) 10.3 - 14.2 % [facility] Platelets 360 150 - 430 K/CU MM [facility] MPV 7.4 6.5 - 10.5 fL [facility] Specimen Blood Performing Organization Address [facility] Phone Number [facility] [address] [place], [place] [address] D-dimer (04/20/2018 7:53 AM CDT) D-Dimer, Quant 0.93 (H) <0.50 mg/L [facility] Specimen Blood Narrative Performed At [facility] REGARDING D-DIMER RESULTS: The 98% NPV (Negative Predictive Value) for DVT/PE exclusion is 0.50 mg/L FEU as suggested by the tractor trailer technician and as approved by the FDA. Final Information (Auto Output) Performing Organization Address City/State/Zipcode Phone Number [facility] [address] [place] [address] Antibody identification (04/19/2018 5:19 PM CDT) ANTIBODY ID (NIMO) Anti-EComment: Testing performed by: [facility]ISSA [facility] [place] [facility], [address] [place] [id number] Antibody Consult SIGNED OUTComment: Anti E causes RBC [place] injury, transfuse E negative RBCs.Electronic Signature: Ayaz Feliz M.D. Performing Organization Address City/State/Zipcode Phone Number [place] Transfuse Leuko-Red RBC (04/19/2018 5:21 AM CDT)Only the most recent of2 resultswithin the time period is included.PERIPHERAL VASCULAR REPORT - SCAN (06/2018 1:00 PM CDT) Narrative Performed At Venous doppler legs bilateral (04/18/2018 11:50 AM CDT) Narrative Performed At FINAL REPORT [facility] History: Lower extremity swelling Comparison: None Discussion: [...] MD Report Verified Date/Time:04/18/2018 12:31:58 Reading Location: [facility] Radiology Reading Room Procedure Note Interface, External [...] Report Verified Date/Time: 04/18/2018 12:31:58 Reading Location: [facility] Radiology Reading Room Performing Organization Address City/State/Zipcode Phone Number [facility] Prothrombin Gene Mutation (04/18/2018 10:51 AM CDT) Prothrombin/Factor II Negative for the [id number] [facility] (Prothrombin/Factor II) [facility] mutation. Pathologist: Annmarie Thomas MD [facility] (electronic signature) [facility] Specimen Blood Narrative Performed At [facility] This test is a genotyping assay which evaluates the DNA sequence at position 86868 of the prothrombin (Factor II) gene. A [...] and its performance characteristics determined by the [facility] Pathology Department, Section of Molecular Pathology. It has not been cleared or approved by the U.S. Food and Drug Administration (FDA), since FDA approval is not required for clinical use of the test. Validation was done as required by the Clinical Laboratory Improvement Amendments of 1988. Performing Organization Address City/State/Zipcode Phone Number [facility] [address] [place] [address] [phone] CENTER Vitamin B12 and Folate (04/18/2018 10:51 AM CDT) Vitamin B12 497 213 - 816 pg/mL [facility] Folate 6.5 (L) >=7.0 ng/mL [facility] Specimen Blood Performing Organization Address [facility] Phone Number [facility] [address] [place] [address] [phone] CENTER Phosphatidylserine Abs (IgG, IgM) (04/18/2018 10:51 AM CDT) Phos.Serine Ab IgG <10 U/mL [facility] Comment: [...] more information on this test, go to: http://education.LendAmend/faq/XXY157 Specimen Blood Narrative Performed At Performing Lab [facility] [employer] [place] [address] [place] [address] Rodney Bolivar MD, PhD, BRIANNA Performing Organization Address [facility] Phone Number [facility] [place] [address] INCORPORATED [address] [facility] Iron, TIBC, % sat. 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 Laboratory testing supervised and results monitored by Jovany Lemons MD, A, DABG, [facility]. Reduced methylenetetrahydrofolate reductase (MTHFR) enzyme activity is a genetic risk factor for hyperhomocysteinemia, especially when present with low serum folate levels. Two common variants in the MTHFR gene result in reduced enzyme activity. The "thermolabile" variant C677T [NM 770732.3: c.665C>T (p.A222V)] and O2753E [c. 1286A>C (p.E429A)] occur frequently in the [...] uncertain and is not recommended by The [employer] (ACMG) or the [place] [employer] Gynec[employer] (ACOG) in [...] and prothrombin gene mutations. The C677T and W0019N variants are detected by amplification of the [...] Health care providers, please contact your local [place] genetic counselor or call [facility] ([phone]) for assistance with interpretation of these results. This test was developed and its analytical performance characteristics have been determined by [facility]. It has not been cleared or approved by FDA. This assay has been validated pursuant to the CLIA regulations and is used for clinical purposes. Specimen Blood Narrative Performed At Performing Lab [facility] [address] [address] Rodney Bolivar MD, PhD, BRIANNA Performing Organization Address [facility] [place] [address] INCORPORATED [address] [address] [facility] Protein S antigen, total (04/18/2018 10:51 AM CDT) Protein S, Total Antigen 90 70 - 140 % normal [facility] Specimen Blood Narrative Performed At Performing Lab [facility] [address] [address] Rodney Bolivar MD, PhD, BRIANNA Performing Organization Address [facility] [place] [address] INCORPORATED [address] [facility] Protein C antigen, total (04/18/2018 10:51 AM CDT) Protein C Antigen 100 70 - 140 % normal [facility] Comment: INCORPORATED Decreased levels of Protein C antigen may be found in congenital deficiency, treatment with oral anticoagulants, liver disease, D.I.C. and post surgery. Specimen Blood Narrative Performed At Performing Lab [facility] [place] [address] [place] [address] Rodney Bolivar MD, PhD, BRIANNA Performing Organization Address [facility] Phone Number [email or web address] [address] INCORPORATED [address] [facility] Cardiolipin Antibodies, IgG and IgM (04/18/2018 10:51 AM CDT) Anticardiolipin IgG <1.6 <20.0 GPL [facility] Anticardiolipin IgM 0.5 <20.0 MPL [facility] Specimen Blood Narrative Performed At Anticardiolipin IgG Result Interpretation: [facility] <20.0 GPL Normal >/=20.0 GPL Positive Anticardiolipin IgM Result Interpretation: <20.0 MPL Normal >/=20.0 MPL Positive Performing Organization Address City/[facility] Phone Number [address] [address] [place] Factor 5 Leiden PCR (thrombotic risk) (04/18/2018 10:51 AM CDT) Factor V Leiden Negative for the R506Q (Factor [facility] V Leiden) mutation [facility] Pathologist: Annmarie Thomas MD [facility] (electronic signature) [facility] Specimen Blood Narrative Performed At This test is a genotyping assay which [facility] evaluates the DNA sequence corresponding [...] and its performance characteristics determined by the [facility] Pathology Department, Section of Molecular Pathology. It has not been cleared or approved by the U.S. Food and Drug Administration (FDA), since FDA approval is not required for clinical use of the test. Validation was done as required by the Clinical Laboratory Improvement Amendments of 1988. Performing Organization Address City/State/[facility] Phone Number [address] [address] [phone] [place] Antithrombin III (04/18/2018 10:51 AM CDT) Antithrombin III 81.0 80.0 - 120.0 % [facility] Specimen Blood Performing Organization Address City/[facility]/Zipcode Phone Number [address] [address] CENTER Reticulocyte count (04/18/2018 10:51 AM CDT) % Retic 1.5 0.4 - 2.9 % [facility] Specimen Blood Performing Organization Address City/[facility]/Zipcode Phone Number [facility] [address] [place] [phone] Type and screen (04/18/2018 10:51 AM CDT) Ab Scrn POSITIVE [facility] ABO Grouping AB [facility] Rh Factor POS [facility] Specimen Blood Performing Organization Address [facility] Phone Number [place] [address] [place] [address] [facility] Protein electrophoresis, serum (04/18/2018 10:51 AM CDT) Albumin Fraction 3.5 3.5 - 5.5 g/dL [facility] Alpha 1 Fraction 0.2 0.2 - 0.4 g/dL [facility] Alpha 2 Fraction 0.6 0.5 - 0.9 g/dL [facility] Beta Fraction 1.1 0.6 - 1.1 g/dL [facility] Gamma Globulin Fraction 0.8 0.7 - 1.7 g/dL [facility] Interpretation All fractions present [facility] in expected [facility] distribution. No monoclonal bands detected. Pathologist: Annmarie Thomas MD [facility] (electronic signature) [facility] Protein, Total 6.3 6.0 - 8.3 gm/dL [facility] Specimen Blood Performing Organization Address City/[facility]/Zipcode Phone Number [address] [place] [address] [phone] CENTER Lactate dehydrogenase (LDH) (04/18/2018 10:51 AM CDT) LDH 174 107 - 206 U/L [facility] Specimen Blood Performing Organization Address City/[facility] Phone Number [facility] [address] [place] [address] Homocysteine (04/18/2018 10:51 AM CDT) Homocysteine 6.1 5.1 - 15.4 umol/L [facility] Specimen Blood Performing Organization Address City/[facility]/Zipcode Phone Number [address] [address] CENTER Ferritin (04/18/2018 10:51 AM CDT) Ferritin 8 (L) 22 - 322 ng/mL [facility] Specimen Blood Performing Organization Address [facility] Phone Number [facility] [address] [place] [address] TSH/Free T4 If Indicated (04/17/2018 9:06 PM CDT) TSH 0.71 0.35 - 5.50 uIU/mL [facility] Specimen Blood Performing Organization Address [facility] Phone Number [facility] [address] [place] [address] after 09/02/2017 Insurance Payer Benefit Plan / Subscriber ID Type Phone Address Group BLUE CROSS/BLUE BCBS ADV HMO xxxxxxxxxxxx [phone] [address] [place] [address] (Work) [phone] Advance Directives For more information, please contact:[address] [phone] Code Status Date Activated Date Inactivated Comments Full Code 09/02/2018 11:03 AM This code status was determined by: Patient Full Code 04/18/2018 2:43 AM 04/26/2018 12:57 [...]
--- OUTSIDE RECORDS SUMMARY | 2018-09-03 19:55 | XMS REPORT | Continuity of Care Document ---
[...] Location Date Lab Report Lenny Holly MD [facility] [place] Jul 20, 2014 Allergies, Adverse Reactions, Alerts [...]
--- OUTSIDE RECORDS SUMMARY | 2018-09-03 19:55 | XMS REPORT | Continuity of Care Document ---
[...] Holly MD [facility] [place] Jul 20, 2014 Allergies, Adverse Reactions, Alerts [...]
--- OUTSIDE RECORDS SUMMARY | 2018-09-03 19:55 | XMS REPORT | Continuity of Care Document ---
[...] MYELOPATHY 014 Neuro LUMBAR Active Condition 07/20/2014 [facility] RADICULOPATHY 014 Neuro Low back Active Problem 10/14/2017 Data pain<sup>1</sup> 014 migrated [place],M from [facility] [place] [facility] on 06/04/15. Lumbar Active Problem 10/14/2017 Data radiculopathy<sup>2 014 migrated [place],M </sup> from [facility] [employer] [facility] on 06/04/15. Spinal stenosis of Active Problem 10/14/2017 Data lumbar 014 migrated [place],M region<sup>3</sup> from [facility] on 06/04/15. Low back Active Problem 09/08/2017 Data pain<sup>1</sup> 014 migrated [place],M from [facility] on 06/04/15. Center Lumbar Active Problem 09/08/2017 Data MH radiculopathy<sup>2 014 migrated [place],M </sup> from [facility] on 06/04/15. Center Spinal stenosis of Active Problem 09/08/2017 Data lumbar 014 migrated [place],M region<sup>3</sup> from [facility] on 06/04/15. [place] Chest pain Active Problem 10/14/2017 MH 010 [place],M H [place] Chest pain Active Problem 09/08/2017 MH 010 [place],M H [facility] Pain / sensation Active Problem 10/14/2017 MH finding(<span 010 [place],M ID="[id number]">Sta [facility] ble</span>) Pain / sensation Active Problem 09/08/2017 MH finding(<span 010 [place],M ID="[id number]">Sta [facility] ble</span>) [facility] Anxiety Active Problem 10/14/2017 MH 010 [place],M H [place] Hypertension Active Problem 10/14/2017 MH 010 [place],M H [place] Sinus tachycardia Active Problem 10/14/2017 MH 010 [place],M H [place] Anxiety Active Problem 09/08/2017 MH 010 [place],M H [facility] Hypertension Active Problem 09/08/2017 MH 010 [place],M H [facility] Sinus tachycardia Active Problem 09/08/2017 MH 010 [place],M [facility] Back pain Active Problem 10/14/2017 MH [place],M H [place] Depression Resolved Problem 10/14/2017 [place],M H [place] Depression (<span Active Problem 10/14/2017 MH ID="[id number]">Co [place],M nfirmed</span>) [facility] 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 [place],M H [place] Hyperlipidemia Active Problem 10/14/2017 MH [place] H [place] Pain Active Problem 10/14/2017 MH [place] H [place] Pericarditis Resolved Problem 10/14/2017 MH [place],M H [place] Pulmonary embolism Resolved Problem 10/14/2017 MH [place],M H [place] SVT - Resolved Problem 10/14/2017 Supraventricular [place],M tachycardia H [place] Back pain Active Problem 09/08/2017 MH [place],M H [facility] Depression Resolved Problem 09/08/2017 MH [place],M H [facility] Depression (<span Active Problem 09/08/2017 MH ID="[id number]">Co [place],M nfirmed</span>) [facility]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 [facility] Hyperlipidemia Active Problem 09/08/2017 [facility] Pain Active Problem 09/08/2017 [facility] Pericarditis Resolved Problem 09/08/2017 [facility] Pulmonary embolism Resolved Problem 09/08/2017 [facility] SVT - Resolved Problem 09/08/2017 Supraventricular [facility] CHEST PAIN, Active [facility] [place] Medications Medication Details Route Status Patient Ordering Order Source Instructions Provider Date Docusate 100 mg, 1 Inactive cap, Route: 018 [place] PO, Drug form: CAP, BID, Dosing Weight 81.818, kg, Start date: 10/11/17 17:00:00 RADAR SCIENTIST, Duration: 30 day, Stop date: 11/10/17 9:00:00 CSTNotes: (Same as: Colace) (Do Not Crush) Ondansetron 4 mg, 2 mL, Inactive Route: IVP, 018 [place] Drug form: INJ, Q6H, Dosing Weight 81.818, kg, PRN Nausea & Vomiting, Start date: 10/11/17 15:19:00 RADAR SCIENTIST, Duration: 30 day, Stop date: 11/10/17 15:18:00 CSTNotes: (Same as: Zofran) MEDICATION WASTE Product Size: 4 mg Product Wasted: ___ mg enoxaparin 80 80 mg, Active [place] mg/0.8 mL SUB-Q, Q12H, 017 Medical subcutaneous 0 Refill(s) Center solution simvastatin 20 20 mg=1 tab, Active [place] mg oral tablet PO, Bedtime, 017 Medical # 30 tab, 1 Center Refill(s) clopidogrel 75 75 mg=1 tab, Active [place] MG Oral Tablet PO, Daily, # 017 Medical [Plavix] 30 tab, 0 Center Refill(s) Acetaminophen 1 tab, PO, Active [place] 325 MG / Q4H, PRN for 017 Medical Hydrocodone pain, # 24 Center Bitartrate 10 tab, 0 MG Oral Tablet Refill(s) [[place] 10/325] heparin 500 mL, Inactive [facility] additive 25,000 Rate: 26.06 017 Medical unit [18 ml/hr, Center unit/kg/hr] + Infuse over: Premix Diluent 19.2 hr, Dextrose 5% 500 Route: IVPB, mL Dosing Weight 72.39 kg, Total Volume: 500 mL, Start date: 11/20/16 5:23:00 RADAR SCIENTIST, Duration: 30 day, Stop date: 12/20/16 5:22:00 CDT Heparin 40 Pharmacy To Inactive [facility] unit/kg [facility], [facility] (Heparin Dosing Route: IVP, Center Weight) PRN, Drug form: INJ, PRN, Heparin Protocol, Start date: 11/20/16 5:23:00 RADAR SCIENTIST Stop date: 12/20/16 6:22:00 CDT, 30 day Heparin 80 Pharmacy To Inactive [facility] unit/kg [facility], [facility] (Heparin Dosing Route: IVP, Center Weight) PRN, Drug form: INJ, PRN, Heparin Protocol, Start date: 11/20/16 5:23:00 RADAR SCIENTIST Stop date: 12/20/16 6:22:00 CDT, 30 day Dilaudid 1 mg, 0.5 Inactive [facility] mL, Route: 017 Medical IVP, Drug Center form: INJ, ONCE, Dosing Weight 81.818, kg, Priority: STAT, Start date: 11/20/16 5:05:00 RADAR SCIENTIST, Stop date: 11/20/16 5:05:00 CSTNotes: Same as: [...] TORSEMIDE Drug TORSEMIDE [facility] allergy 4 Neuro Ambien Assertion Sleep Propensity Active walking to adverse [place] reactions to drug morphine Assertion Rash Drug Active allergy [place] Toradol Assertion rash Drug Active allergy [place] Immunizations Immunization Date Given Site Status Last Comments Source Updated influenza virus 05/12/2014 completed Man Admin Note: vaccine, received at [facility] inactivated<sup>1 [facility] </sup> influenza virus 05/12/2014 completed Man Admin Note: vaccine, received at [facility] inactivated<sup>1 [facility] </sup> [facility] tuberculin 02/21/2010 Left [facility], derivative [place] tuberculin 02/21/2010 Left Arm [facility] protein [facility], derivative [facility] Results Order Name Results Value Reference Date Interpretation Comments Source Range CARDIAC Troponin-T null 0.000 - 11/20 [facility] ENZYMES 0.100 /[address] [place] [address] CARDIAC Total CK 81 unit/L 12 - 191 11/20 [facility] ENZYMES [address] CARDIAC Troponin-I null 0.00 - 11/20 [facility] ENZYMES 0.40 /2016 [facility] CARDIAC CK MB Index 0.7 0.0 - 2.5 11/20 [facility] ENZYMES /[address] [place] [address] CARDIAC CK MB 0.6 ng/mL 0.5 - 3.6 11/20 [facility] ENZYMES /[address] [place] [address] CHEM PANEL Magnesium 1.8 mg/dL 1.8 - 2.4 11/20 [facility] Lvl /[address] [place] [address] CHEM PANEL Phosphorus 2.5 mg/dL 2.5 - 4.5 11/[address] ELECTROLYT AGAP 10.3 meq/L 10.0 - 11/20 [facility] ES 20.0 [facility] ELECTROLYT B/C Ratio 13 6 - 25 11/20 [facility] /2017 [facility] ELECTROLYT A/G Ratio 1.2 0.7 - 1.6 11/20 [facility] /2017 [facility] ELECTROLYT Globulin 3.3 g/dL 2.7 - 4.2 11/20 [facility]2017 [facility] ELECTROLYT eGFR 105 11/20 Result Comment: The eGFR is calculated using the CKD-EPI formula. In most young, healthy individuals the eGFR will be >90 mL/ min/1.73m2. The eGFR declines with age. An eGFR of 60-89 may be normal in [facility] mL/min/1.7 /2016 some populations, particularly the elderly, for whom the CKD-EPI formula has not been extensively validated. Use of the eGFR is not recommended in the following populations: [address] Individuals with unstable creatinine concentrations, including [...] Lvl 8.4 mg/dL 8.5 - 10.5 11/20 [facility] ELECTROLYT Chloride Lvl 107 meq/L 95 - 109 11/[address] ELECTROLYT BUN 11 mg/dL 7 - 22 11/[address] ELECTROLYT Glucose Lvl 100 mg/dL 70 - 99 11/[address] ELECTROLYT Potassium 3.3 meq/L 3.5 - 5.1 11/20 [facility] ELECTROLYT Sodium Lvl 140 meq/L 135 - 145 11/20 [facility] [address] [place] [address] ELECTROLYT Creatinine 0.86 mg/dL 0.50 - 11/20 [facility] Lvl 1. [facility] ELECTROLYT CO2 26 meq/L 24 - 32 11/[address] ELECTROLYT AST 27 unit/L 0 - 37 11/20 [facility] [address] [place] [address] ELECTROLYT ALT 22 unit/L 0 - 65 11/20 [facility] [address] [place] [address] ELECTROLYT Albumin Lvl 4.0 g/dL 3.5 - 5.0 11/20 [facility] [address] [place] [address] ELECTROLYT Bili Total 0.5 mg/dL 0.2 - 1.3 11/[address] ELECTROLYT Total 7.3 g/dL 6.4 - 8.4 11/20 [facility] ELECTROLYT Alk Phos 78 unit/L 39 - 136 11/[address] HEMATOLOGY Anti-Xa 0.67 11/20 [facility] Unfractionat [iU]/mL /2016 [facility] ed Heparin Center HEMATOLOGY Monocytes # 0.6 K/CMM 0.0 - 0.8 11/20 MH [facility] HEMATOLOGY Lymphocytes 1.6 K/CMM 1.0 - 5.5 11/20 [place] # /2016 [facility] HEMATOLOGY Segs-Bands # 3.1 K/CMM 1.5 - 8.1 11/20 [facility] HEMATOLOGY Basophils 1.6 % 0.0 - 1.0 11/20 [facility] HEMATOLOGY Eosinophils 0.1 % 0.0 - 4.0 11/20 [facility] HEMATOLOGY Basophils # 0.1 K/CMM 0.0 - 0.2 11/20 [facility] HEMATOLOGY Microcyte 1+ None Seen 11/20 [facility] (11/20/16 5:39 AM) HEMATOLOGY Lymphocytes 29.5 % 20.0 - 11/20 40.0 [facility] HEMATOLOGY Monocytes 10.6 % 2.0 - 12.0 11/20 [facility] HEMATOLOGY Segs 58.2 % 45.0 - 11/20 75.0 [facility] HEMATOLOGY INR 1.11 0.85 - 11/20 1.17 [facility] HEMATOLOGY PT 14.5 s 12.0 - 11/20 14.7 [facility] HEMATOLOGY PTT 32.9 s 22.9 - 11/20 35.8 [facility] HEMATOLOGY MCV 76.5 fL 80.0 - 11/20 94.0 [facility] HEMATOLOGY Hct 29.2 % 42.0 - 11/20 54.0 [facility] HEMATOLOGY MCH 24.1 pg 27.0 - 11/20 31.0 [facility] HEMATOLOGY Platelet 316 K/CMM 133 - 450 11/20 [facility] HEMATOLOGY MCHC 31.5 g/dL 32.0 - 02 [place] 36.0 2017 [facility] HEMATOLOGY RDW 20.7 % 11.5 - 02 14.5 [facility] HEMATOLOGY WBC 5.3 K/CMM 3.7 - 10.4 02 [facility] HEMATOLOGY Hgb 9.2 g/dL 14.0 - 11/20 18.0 2017 [facility] HEMATOLOGY RBC 3.82 M/CMM 4.70 - 11/20 [place] 6.10 [facility] HEMATOLOGY MPV 6.8 fL 7.4 - 10.4 11/[address] Chest Chest Clinical Indication: Chest pain; elevated d-dimer. 10/11 - Pulmonary Pulmonary /2016 - [place] Embolism Embolism CTA Comparison: None [...] used for the exam. FINAL REPORT Dose: TXT=078.4 mGy-cm FINDINGS: VASCULAR STRUCTURES: No pulmonary thromboemboli [...] Source Temperature Oral (F) 98.1 F 11/20/2016 [facility] Systolic (mm Hg) 142 11/20/2016 [facility] Diastolic (mm Hg) 99 11/20/2016 [facility] Respitory Rate 19 11/20/2016 [facility] Temperature Oral (F) 97.9 F 11/20/2016 [facility] Respitory Rate 18 11/20/2016 [facility] Systolic (mm Hg) 152 11/20/2016 [facility] Diastolic (mm Hg) 88 11/20/2016 [facility] Weight 81.818 11/20/2016 [facility] BMI Calculated 28.25 11/20/2016 [facility] Height 170.18 cm 11/20/2016 [facility] Respitory Rate 18 10/12/2016 [facility] Systolic (mm Hg) 132 10/12/2016 [facility] Diastolic (mm Hg) 67 10/12/2016 [facility] Systolic (mm Hg) 139 10/11/2016 [facility] Diastolic (mm Hg) 65 10/11/2016 [facility] Respitory Rate 18 10/11/2016 [facility] BMI Calculated 28.25 10/11/2016 [facility] Weight 81.818 10/11/2016 [facility] Height 170.18 cm 10/11/2016 [facility] Temperature Oral (F) 98.2 F 10/11/2016 [facility] Heart Rate 96 10/11/2016 [facility] Respitory Rate 18 10/11/2016 [facility] Systolic (mm Hg) 128 10/11/2016 [facility] Diastolic (mm Hg) 93 10/11/2016 [facility] Weight 176 07/18/2014 [facility] Neuro Height 67 07/18/2014 [facility] Neuro Temperature Oral (F) 100.3 F 07/18/2014 [facility] Neuro Heart Rate 108 07/18/2014 [facility] Neuro Systolic (mm Hg) 145 07/18/2014 [facility] Neuro Diastolic (mm Hg) 105 07/18/2014 [facility] Neuro Encounters Location Location Encounter Encounter Reason Attending ADM DC Status Source Details Type Number For Provider Date Date Visit [facility] Office [id number] Lenny 07/18 07/18 [facility] Neuroscienc Visit [id number] Avni DALEY /2013 Neuro e NE [facility] Lab Report [id number] Lenny 07/20 07/20 [place] [id number] Avni DALEY /2013 [facility] Emergency [id number] Silas 10/11 10/12 Puneet Moore [facility] Inpatient [id number] March Karena 11/20 11/20 Francisco Teixeira [facility] Observation [id number] Quratdariel 02/18 02/18 Puneet Ward /2016 [facility] Inpatient [id number] Valentin 09/06 09/06 KEREN Te[place]ira 0 [facility] Inpatient [id number] González 10/11 10/11 KEREN [place] 1 Onur [facility] Procedures Procedure Code Date Perfomer Comments Source Cholecystectomy [id number] [facility] Laminectomy and [id number] [facility] discectomy Procedure on back [id number] [facility] Cholecystectomy [id number] [facility] Laminectomy and [id number] [facility] discectomy Procedure on back [id number] [facility] Cholecystectomy [id number] [facility] Laminectomy and [id number] [facility] discectomy [facility] Procedure on back [id number] [facility]
--- OUTSIDE RECORDS SUMMARY | 2018-09-03 19:59 | XMS REPORT ---
:1970 [facility] Address [address] [place] [address] Care Team Providers Name Role Phone SARAHPATRICIA Unavailable Unavailable SUDEEP, DR ROJAS Unavailable Unavailable DR DALTON BUCIO Unavailable Unavailable NIRANJAN NICHOLSON Unavailable Unavailable JAQUI, WILL Unavailable Unavailable BEACH ILIANA Unavailable Unavailable SOTOMARIA LUISA GUOUSHHAO Unavailable Unavailable ITALIA ACUNA Unavailable Unavailable MAURA, [...] Date Date Clinician zolpidem DA Active [place] 2018-08 tartrate - 00:00:0 0 ketorolac DA Active [place] 2018-08 00:00:0 0 zolpidem DA Active [place] 2017-11trate - 00:00:0 0 ketorolac DA Active [place] 2017-11 00:00:0 0 Medications This patient has no known medications. Encounters Start End Encounter Admission Attending Care Care Encounter Date/Time Date/Time Type Type Clinicians Facility Department ID 2018-07-31 2018-07-31 Emergency E KERRY SHEETS [facility] [id number] 00:38:00 05:56:00 BOB 2018-07-15 2018-07-16 Outpatient KERRY GONZALES [id number] 10:19:00 12:35:00 DALTON 2017-12-16 2017-12-16 Emergency E JOLEEN KOWALSKI [facility] [id number] 13:45:00 17:07:00 Results Test Description Test Time Test Comments Text Results Atomic Results Result Comments CBC W/PLT COUNT & AUTO DIFFERENTIAL 2018-09-03 09:31:00 Test Item Value Reference Range Comments WHITE BLOOD CELL COUNT (BEAKER) (test zquz=937) 4.9 K/ L 4.0-10.0 RED BLOOD CELL COUNT (BEAKER) (test nxrt=892) 3.69 M/ L 4.20-5.80 HEMOGLOBIN (BEAKER) (test xrse=201) 8.5 GM/DL 13.0-16.8 HEMATOCRIT (BEAKER) (test ipqs=882) 28.7 % 36.0-50.0 MEAN CORPUSCULAR VOLUME (BEAKER) (test azdx=674) 77.8 fL 82.0-99.0 MEAN CORPUSCULAR HEMOGLOBIN (BEAKER) (test vbrx=732) 23.0 pg 27.0-33.0 MEAN CORPUSCULAR HEMOGLOBIN CONC (BEAKER) (test sdgp=966) 29.6 GM/DL 32.0- 36.0 RED CELL DISTRIBUTION WIDTH (BEAKER) (test svit=435) 18.6 % 12.0-15.0 PLATELET COUNT (BEAKER) (test jgvz=591) 305 K/CU MM 150-430 MEAN PLATELET VOLUME (BEAKER) (test xtmk=732) 9.1 fL 6.0-11.5 NUCLEATED RED BLOOD CELLS (BEAKER) (test dzje=937) 0 /100 WBC 0-0 (MANUAL DIFFERENTIAL)2018-09-03 09:31:00 Test Item Value Reference Range Comments NEUTROPHILS - REL (DIFF) (BEAKER) (test wobg=0975) 39 % LYMPHOCYTES - REL (DIFF) (BEAKER) (test osjw=4097) 44 % MONOCYTES - REL (DIFF) (BEAKER) (test wmxt=1342) 13 % EOSINOPHILS - REL (DIFF) (BEAKER) (test mgjw=2857) 4 % NEUTROPHILS - ABS (DIFF) (BEAKER) (test rbyd=0934) 1.91 K/ L 1.80-8.00 LYMPHOCYTES - ABS (DIFF) (BEAKER) (test iakf=5486) 2.16 K/ L 1.48-4.50 MONOCYTES - ABS (DIFF) (BEAKER) (test dfyr=8587) 0.64 K/ L 0.00-1.30 EOSINOPHILS - ABS (DIFF) (BEAKER) (test gewg=5071) 0.20 K/ L 0.00-0.50 TOTAL COUNTED (BEAKER) (test vwxd=2831) 100 WBC MORPHOLOGY (BEAKER) (test ymzo=582) Normal RBC MORPHOLOGY (BEAKER) (test fafo=621) Normal LARGE PLT(BEAKER) (test bfyg=4700) Present BASIC METABOLIC [id number] 05:01:00 Test Item Value Reference Range Comments SODIUM (BEAKER) (test 138 meq/L 135-148 ttrp=633) POTASSIUM (BEAKER) (test 3.5 meq/L 3.6-5.5 jqba=747) CHLORIDE (BEAKER) (test 106 meq/L 98-106 lfdo=638) CO2 (BEAKER) (test 24 meq/L 20-29 fugb=459) BLOOD UREA NITROGEN 13 mg/dL 10-26 (BEAKER) (test zphf=688) CREATININE (BEAKER) (test 0.94 mg/dL 0.50-1.20 npuj=897) GLUCOSE RANDOM (BEAKER) 121 mg/dL 70-110 (test rqlb=055) CALCIUM (BEAKER) (test 8.3 mg/dL 8.5-10.5 vmjr=993) EGFR (BEAKER) (test 86 mL/min/1.73 sq m ESTIMATED GFR IS NOT clzj=2818) ACCURATE CREATININE CLEARANCE IN PREDICTING GLOMERULAR FILTRATION RATE. ESTIMATED GFR IS NOT APPLICABLE FOR DIALYSIS PATIENTS. LIPID [id number] 05:01:00 Test Item Value Reference Range Comments TRIGLYCERIDES (BEAKER) (test xxhv=362) 122 mg/dL CHOLESTEROL (BEAKER) (test dguo=565) 201 mg/dL HDL CHOLESTEROL (BEAKER) (test oeba=841) 39 mg/dL LDL CHOLESTEROL CALCULATED (BEAKER) (test 138 mg/dL ezjm=232) Triglyceride Reference Range: Low Risk <150 Borderline 150- 199 High Risk 200-499 Very High Risk >=500Cholesterol Reference Range: Low Risk <200 Borderline 200-239 High Risk > 240HDL Cholesterol Reference Range: Low Risk >=60 High Risk <40LDL Cholesterol Reference Range: Optimal <100 Near Optimal 100-129 Borderline 130-159 High 160-189 Very High >=190TROPONIN [id number] 04:51:00 Test Item Value Reference Range Comments TROPONIN I (BEAKER) (test vpnq=092) < ng/mL 0.00-0.15 HEMOGLOBIN [id number] 04:43:00 Test Item Value Reference Range Comments HEMOGLOBIN A1C (BEAKER) (test bjsh=222) 5.7 % 4.3-6.1 CBC W/PLT COUNT & AUTO [id number] 04:21:00 Test Item Value Reference Range Comments WHITE BLOOD CELL COUNT (BEAKER) (test wrjp=408) 6.8 K/ L 4.0-10.0 RED BLOOD CELL COUNT (BEAKER) (test xeax=170) 2.91 M/ L 4.20-5.80 HEMOGLOBIN (BEAKER) (test lgso=395) 6.7 GM/DL 13.0-16.8 HEMATOCRIT (BEAKER) (test cuso=438) 22.8 % 36.0-50.0 MEAN CORPUSCULAR VOLUME (BEAKER) (test uotg=219) 78.4 fL 82.0-99.0 MEAN CORPUSCULAR HEMOGLOBIN (BEAKER) (test 23.0 pg 27.0-33.0 znqp=592) MEAN CORPUSCULAR HEMOGLOBIN CONC (BEAKER) (test 29.4 GM/DL 32.0-36.0 hkfy=746) RED CELL DISTRIBUTION WIDTH (BEAKER) (test 18.4 % 12.0-15.0 wqwp=334) PLATELET COUNT (BEAKER) (test rlmh=913) 343 K/CU MM 150-430 MEAN PLATELET VOLUME (BEAKER) (test yehb=710) 9.7 fL 6.0-11.5 NUCLEATED RED BLOOD CELLS (BEAKER) (test 0 /100 WBC 0-0 alcv=078) NEUTROPHILS RELATIVE PERCENT (BEAKER) (test 38 % swbg=289) LYMPHOCYTES RELATIVE PERCENT (BEAKER) (test 36 % lqbe=729) MONOCYTES RELATIVE PERCENT (BEAKER) (test 22 % pqlv=921) EOSINOPHILS RELATIVE PERCENT (BEAKER) (test 4 % fzll=256) BASOPHILS RELATIVE PERCENT (BEAKER) (test 0 % uyxr=254) NEUTROPHILS ABSOLUTE COUNT (BEAKER) (test 2.58 K/ L 1.80-8.00 fiib=166) LYMPHOCYTES ABSOLUTE COUNT (BEAKER) (test 2.45 K/ L 1.48-4.50 vunj=570) MONOCYTES ABSOLUTE COUNT (BEAKER) (test 1.48 K/ L 0.00-1.30 juue=960) EOSINOPHILS ABSOLUTE COUNT (BEAKER) (test 0.26 K/ L 0.00-0.50 eksk=404) BASOPHILS ABSOLUTE COUNT (BEAKER) (test 0.01 K/ L 0.00-0.20 ccwc=329) IMMATURE GRANULOCYTES-RELATIVE PERCENT (BEAKER) 0 % 0-0 (test vthf=5511) TROPONIN [id number] 15:35:00 Test Item Value Reference Range Comments TROPONIN I (BEAKER) (test kkls=423) < ng/mL 0.00-0.15 CT, CHEST WITH IV CONTRAST- PE TEST [id number] 08:14:00Reason for exam:-& gt;CHEST PAINWhat is the patient's sedation requirement?->No SedationFINAL REPORT INDICATION: 48-year-old male with chest pain. Evaluate for pulmonary embolism. COMPARISON:Chest radiograph September 02, 2018Chest CT PE protocol May 24, 2018 TECHNIQUE: Chest CT exam WITH intravenous contrast, PE protocol. The exam was performed according to our department dose-optimization protocol, which includes automated exposure control , adjustments of mA and kV according to patient size. Iterative reconstructions are also sometimes employed. FINDINGS:Right lateral basal segmental embolus ( axial image 100) is again demonstrated. Left medial [...] embolism. No pulmonary infarct. Signed: Perry Garg MDReport Verified Date/Time: 09/02/2018 08:14:32 Reading Location: [facility] Diagnostic Imaging Reading Room - [place] [address] BASIC METABOLIC [id number] 07:38:00 Test Item Value Reference Range Comments SODIUM (BEAKER) (test 134 meq/L 135-148 oesk=243) POTASSIUM (BEAKER) (test 3.2 meq/L 3.6-5.5 tdsq=225) CHLORIDE (BEAKER) (test 102 meq/L 98-106 vuzm=585) CO2 (BEAKER) (test 17 meq/L 20-29 yxbo=973) BLOOD UREA NITROGEN 9 mg/dL 10-26 (BEAKER) (test ddyz=305) CREATININE (BEAKER) (test 1.20 mg/dL 0.50-1.20 rvxz=853) GLUCOSE RANDOM (BEAKER) 224 mg/dL 70-110 (test wmbz=111) CALCIUM (BEAKER) (test 9.0 mg/dL 8.5-10.5 cxrt=659) EGFR (BEAKER) (test 65 mL/min/1.73 sq m ESTIMATED GFR IS NOT gebn=1171) ACCURATE CREATININE CLEARANCE IN PREDICTING GLOMERULAR FILTRATION RATE. ESTIMATED GFR IS NOT APPLICABLE FOR DIALYSIS PATIENTS. PT/[id number] 07:33:00 Test Item Value Reference Range Comments PROTIME (BEAKER) (test vjnl=258) 11.5 sec 9.3-12.0 INR (BEAKER) (test ffdd=968) 1.1 <=5.9 PARTIAL THROMBOPLASTIN TIME (BEAKER) (test 139.2 sec 23.0-35.0 kien=701) RECOMMENDED COUMADIN/WARFARIN INR THERAPY RANGESSTANDARD DOSE: 2.0 - 3.0 Includes: PROPHYLAXIS forvenous thrombosis, systemic embolization; TREATMENT for venous thrombosis and/or pulmonary embolus.HIGH RISK: Target INR is 2.5-3.5 for patients with mechanical heart valves.Final Information (Auto Output)Final Information (Auto Output)Final Information (Auto Output)TROPONIN [id number] 07: 29:00 Test Item Value Reference Range Comments TROPONIN I (BEAKER) (test hlsw=983) < ng/mL 0.00-0.15 B-TYPE NATRIURETIC FACTOR (BNP)2018-09-02 07:25:00 Test Item Value Reference Range Comments B-TYPE NATRIURETIC PEPTIDE (BEAKER) (test 150 pg/mL 0-100 smnu=343) [id number] 07:14:00 Test Item Value Reference Range Comments MAGNESIUM (BEAKER) (test bzan=741) 2.2 mg/dL 1.5-3.0 RAD, CHEST, 1 VIEW, NON [id number] 07:10:00Reason for exam:->CHEST PAINFINAL REPORT Chest one view. Clinical history: CHEST PAIN Comparison: Chest radiograph 05/24/2018. Technique: A single frontal view of the chest was obtained. Findings:There is a right IJ Port-A-Cath with tip in the SVC/RA junction.The heart is normal in size. The aorta is uncoiled. There is no focal pulmonary consolidation, pleural effusion or pneumothorax. There is no pulmonary edema. The bony thorax is unremarkable. Impression: No focal pulmonary consolidation. Signed: Dennis Suarez Verified Date/Time: 09/02/2018 07:10:11 Reading Location: [facility] C013Y CT Body Reading Room CBC W/PLT COUNT & AUTO [id number] 07:03:00 Test Item Value Reference Range Comments WHITE BLOOD CELL COUNT (BEAKER) (test aoqo=615) 9.7 K/ L 4.0-10.0 RED BLOOD CELL COUNT (BEAKER) (test love=023) 4.18 M/ L 4.20-5.80 HEMOGLOBIN (BEAKER) (test tgdq=543) 9.8 GM/DL 13.0-16.8 HEMATOCRIT (BEAKER) (test xxuz=823) 32.6 % 36.0-50.0 MEAN CORPUSCULAR VOLUME (BEAKER) (test xqfu=534) 78.0 fL 82.0-99.0 MEAN CORPUSCULAR HEMOGLOBIN (BEAKER) (test 23.4 pg 27.0-33.0 icvm=023) MEAN CORPUSCULAR HEMOGLOBIN CONC (BEAKER) (test 30.1 GM/DL 32.0-36.0 vlbm=695) RED CELL DISTRIBUTION WIDTH (BEAKER) (test 18.4 % 12.0-15.0 eqgi=057) PLATELET COUNT (BEAKER) (test mkph=190) 354 K/CU MM 150-430 MEAN PLATELET VOLUME (BEAKER) (test jrcv=136) 9.6 fL 6.0-11.5 NUCLEATED RED BLOOD CELLS (BEAKER) (test 0 /100 WBC 0-0 qevl=134) NEUTROPHILS RELATIVE PERCENT (BEAKER) (test 62 % zzin=903) LYMPHOCYTES RELATIVE PERCENT (BEAKER) (test 26 % ppid=188) MONOCYTES RELATIVE PERCENT (BEAKER) (test 10 % taat=496) EOSINOPHILS RELATIVE PERCENT (BEAKER) (test 1 % jkmr=878) BASOPHILS RELATIVE PERCENT (BEAKER) (test 0 % jjrd=865) NEUTROPHILS ABSOLUTE COUNT (BEAKER) (test 6.00 K/ L 1.80-8.00 eqxd=638) LYMPHOCYTES ABSOLUTE COUNT (BEAKER) (test 2.51 K/ L 1.48-4.50 muak=047) MONOCYTES ABSOLUTE COUNT (BEAKER) (test 0.99 K/ L 0.00-1.30 wgsx=924) EOSINOPHILS ABSOLUTE COUNT (BEAKER) (test 0.13 K/ L 0.00-0.50 gxqu=605) BASOPHILS ABSOLUTE COUNT (BEAKER) (test 0.02 K/ L 0.00-0.20 whwj=626) IMMATURE GRANULOCYTES-RELATIVE PERCENT (BEAKER) 0 % 0-0 (test jkpr=7131) CARDIAC PROFILE 2018-07-31 05:25:00 Test Item Value Reference Range Comments TROPONIN I (test code=A84) <0.015 ng/mL 0.000-0.045 CBC (INCLUDES AUTOMATED DIFFERENTIAL)*[id number] 01:33:00 Test Item Value Reference Range Comments [...] NO RBC MORPH (test code=WRBCMOR) NORMAL URINALYSIS *WW*2018-07-31 01:28:00 Test Item Value Reference Range Comments [...] (test code=WAUAM) NO NO DRUGS OF ABUSE *WW*2018-07-31 01:26:00 Test Item Value Reference Range Comments [...] code=09D) 7.9 mg/dL 8.3-9.5 CBC (INCLUDES AUTOMATED DIFFERENTIAL)*[id number] 06:34:00 Test Item Value Reference Range Comments [...] CHEST WITH CONTRAST, PE PROTOCOL: Location code: [id number] HISTORY: Shortness of breath , chest painCOMPARISON: [...] (test code=09D) 8.6 mg/dL 8.3-9.5 Arterial Blood [id number] 08:55:00 Test Item Value Reference Range Comments pH (test code=PHRT) 7.412 7.350-7.450 pCO2 (test code=PCO2RT) 36.2 mmHg 35.0-45.0 pO2 (test code=PO2RT) 99.7 mmHg 80.0-110.0 HCO3? (test code=HCO3) 22.6 mmol/L 22.0-26.0 DARIO (test code=DARIO) -1.1 mmol/L -3.0-3.0 tHb (test code=THBRT) 11.0 g/dL 14.0-18.0 sO2 (test code=SO2RT) 96.9 % 92.0-100.0 FO2Hb (test code=AN8HZPK) 94.7 % 94.0-100.0 FCOHb (test code=FCOHBRT) 1.2 % 0.0-3.0 FMetHb (test code=FMETHBRT) 1.1 % 0.2-0.6 ABGTEMP (test code=ABGTEMP) * Temp Corrected Values* ABGTEMP (test code=ABGTEMP.) 37.0 ?C pH (T) (test code=PHTEMP) 7.412 7.350-7.450 pCO2 (T) (test code=CCM0PDQB) 36.2 mmHg 35.0-45.0 pO2 (T) (test code=QB9VZBH) 99.7 mmHg 80.0-110.0 Device (test code=DEVICE) ROOM [...] Artery COMMENT (test code=CO) PTT(PARTIAL PLASMA THROBOPL *WW*2018-07-15 07:46:00 Test Item Value Reference Range Comments PTT (test code=PTT) 80.8 s 20.2-38.0 PTTH (test code=PTTH) To monitor the effectiveness of heparin, we offer the Anti-Xa (Heparin Assay). It can be used for either unfractionated or LMW Heparin. Order Code is ANTI-XA CARDIAC PROFILE *WW*2018-07-15 07:45:00 Test Item Value Reference Range Comments TROPONIN I (test code=A84) <0.015 ng/mL 0.000-0.045 CKMB (test code=A49) <1.0 ng/mL <=3.6 CPK (test code=32A) 90 IU/L 39-308 PROTHROMBIN TIME *WW*2018-07-15 07:36:00 Test Item Value Reference Range Comments PT (test code=TT) 10.5 s 9.8-13.6 INR (test code=INR) 0.9 INRH (test code=INRH) SUGGESTED THERAPEUTIC RANGE FOR INR: 2.5 - 3.5 For Patients with Prosthetic Valves or Patients with recurrent Thromboembolic Events 2.0 - 3.0 For Most Other Applications CBC (INCLUDES AUTOMATED DIFFERENTIAL)*[id number] 07:33:00 Test Item Value Reference Range Comments [...] XR CHEST 1 VIEW PORTABLE *WW*2018-07-15 07:25:22Location: [id number], FRONTAL VIEW HISTORY: [id number]: Chest painCOMPARISON: Chest x-ray 388FINDINGS: The lungs are clear without consolidation. No pleural effusion or pneumothorax.The heart size is normal. Thebones are unremarkable. Right IJ Port- A-Cath isin the SVC.IMPRESSION:No evidence of acute cardiopulmonary disease.BLOOD [id number] 16:00:00 Test Item Value Reference Range Comments CULTURE (BEAKER) (test tkfm=6842) No growth in 5 days BLOOD [id number] 16:00:00 Test Item Value Reference Range Comments CULTURE (BEAKER) (test vuez=0821) No growth in 5 days LACTIC ACID, VENOUS, WHOLE [id number] 14:43:00 Test Item Value Reference Range Comments LACTATE BLOOD VENOUS (2) (BEAKER) (test 1.3 mmol/L 0.5-2.2 hhmb=0934) Effective 02/12/2016: Units/Reference Range ChangeNew: 0.5-2.2 mmol/L Previous: 5 -18 mg/dLURINALYSIS W/ REFLEX URINE [id number] 14:17:00 Test Item Value Reference Range Comments COLOR (BEAKER) (test kkow=726) Yellow CLARITY (BEAKER) (test scnu=635) Clear SPECIFIC GRAVITY UA (BEAKER) (test jdqf=726) 1.010 1.001-1.035 PH UA (BEAKER) (test ashw=145) 7.0 5.0-8.0 PROTEIN UA (BEAKER) (test rxqx=910) Negative Negative GLUCOSE UA (BEAKER) (test sfpv=455) Negative Negative KETONES UA (BEAKER) (test yxjr=435) Negative Negative BILIRUBIN UA (BEAKER) (test bfed=973) Negative Negative BLOOD UA (BEAKER) (test fdax=209) Negative Negative NITRITE UA (BEAKER) (test fbto=110) Negative Negative LEUKOCYTE ESTERASE UA (BEAKER) (test Negative Negative rvmo=399) UROBILINOGEN UA (BEAKER) (test qfdk=967) 0.2 mg/dL 0.2-1.0 BACTERIA (BEAKER) (test bpkv=234) None Seen RBC UA-MANUAL (BEAKER) (test ihea=1599) None Seen /HPF WBC UA-MANUAL (BEAKER) (test ftst=4711) <5 /HPF SQUAMOUS EPITHELIAL MANUAL (BEAKER) (test None Seen /HPF zeea=0342) SOURCE(BEAKER) (test ixhg=5725) CT, CHEST WITH IV CONTRAST- PE TEST [id number] 13:14:00Reason for exam:-& gt;CHEST PAINReason for exam:->h/o [...] pulmonary emboli on the right. Signed: Louis Pachecoepsinai Verified Date/ Time: 05/24/2018 13:14:23 Reading Location: [address] Radiology Reading Room LACTIC ACID, VENOUS, WHOLE [id number] 11:37:00 Test Item Value Reference Range Comments LACTATE BLOOD VENOUS (2) (BEAKER) (test 4.6 mmol/L 0.5-2.2 mmxv=7854) Effective 02/12/2016: Units/Reference Range ChangeNew: 0.5-2.2 mmol/L Previous: 5 -18 mg/dLCBC W/PLT COUNT & AUTO [id number] 11:20:00 Test Item Value Reference Range Comments WHITE BLOOD CELL COUNT (BEAKER) (test ywsb=107) 9.8 K/ L 4.0-10.0 RED BLOOD CELL COUNT (BEAKER) (test uuka=479) 4.15 M/ L 4.20-5.80 HEMOGLOBIN (BEAKER) (test auee=038) 10.7 GM/DL 13.0-16.8 HEMATOCRIT (BEAKER) (test cjtm=466) 33.6 % 40.0-50.0 MEAN CORPUSCULAR VOLUME (BEAKER) (test axrx=797) 80.8 fL 82.0-98.0 MEAN CORPUSCULAR HEMOGLOBIN (BEAKER) (test 25.7 pg 27.0-33.0 gnvb=111) MEAN CORPUSCULAR HEMOGLOBIN CONC (BEAKER) (test 31.8 GM/DL 32.0-36.0 qgtk=851) RED CELL DISTRIBUTION WIDTH (BEAKER) (test 28.4 % 10.3-14.2 tztl=686) PLATELET COUNT (BEAKER) (test gzpw=993) 324 K/CU MM 150-430 MEAN PLATELET VOLUME (BEAKER) (test ejrs=829) 7.3 fL 6.5-10.5 NUCLEATED RED BLOOD CELLS (BEAKER) (test 0 /100 WBC 0-0 svex=594) NEUTROPHILS RELATIVE PERCENT (BEAKER) (test 75 % osmm=151) LYMPHOCYTES RELATIVE PERCENT (BEAKER) (test 17 % ppab=925) MONOCYTES RELATIVE PERCENT (BEAKER) (test 6 % vnmv=678) EOSINOPHILS RELATIVE PERCENT (BEAKER) (test 2 % gvor=101) BASOPHILS RELATIVE PERCENT (BEAKER) (test 0 % almc=473) NEUTROPHILS ABSOLUTE COUNT (BEAKER) (test 7.30 K/ L 1.80-8.00 iqiq=449) LYMPHOCYTES ABSOLUTE COUNT (BEAKER) (test 1.70 K/ L 1.48-4.50 kiup=185) MONOCYTES ABSOLUTE COUNT (BEAKER) (test 0.60 K/ L 0.00-1.30 akjm=545) EOSINOPHILS ABSOLUTE COUNT (BEAKER) (test 0.20 K/ L 0.00-0.50 uslu=822) BASOPHILS ABSOLUTE COUNT (BEAKER) (test 0.00 K/ L 0.00-0.20 jhdw=813) (MANUAL DIFFERENTIAL)2018-05-24 11:20:00 Test Item Value Reference Range Comments TOTAL COUNTED (BEAKER) (test hnzs=2196) WBC MORPHOLOGY (BEAKER) (test vxpk=061) Normal PLT MORPHOLOGY (BEAKER) (test ltqx=439) Normal ANISOCYTOSIS (BEAKER) (test chie=191) 3+ many HYPOCHROMIA (BEAKER) (test uboa=405) 3+ many TROPONIN [id number] 11:12:00 Test Item Value Reference Range Comments TROPONIN I (BEAKER) (test hncz=699) < ng/mL 0.00-0.15 Troponin I (TnI) levels [...] and persistent tachyarrhythmia.CREATINE KINASE (CK), TOTAL AND [id number] 11:11:00 Test Item Value Reference Range Comments CREATINE KINASE TOTAL (BEAKER) (test onrm=330) 76 U/L 40-250 CREATINE KINASE-MB (BEAKER) (test ypzf=189) 1.2 ng/mL 0.0-4.9 CREATINE KINASE-MB INDEX (BEAKER) (test hjou=958) 1.6 % CK-MB Reference Range:<5 Normal5-10 Borderline>10 AbnormalHEPATIC FUNCTION [id number] 11:06:00 Test Item Value Reference Range Comments TOTAL PROTEIN (BEAKER) (test ssky=750) 7.0 gm/dL 6.0-8.5 ALBUMIN (BEAKER) (test mvsd=1805) 4.3 g/dL 3.5-5.0 BILIRUBIN TOTAL (BEAKER) (test cdje=113) 0.4 mg/dL 0.1-1.2 BILIRUBIN DIRECT (BEAKER) (test uams=354) 0.2 mg/dL 0.0-0.4 ALKALINE PHOSPHATASE (BEAKER) (test ircb=854) 70 U/L 30-115 AST (SGOT) (BEAKER) (test ilvw=733) 18 U/L 5-40 ALT (SGPT) (BEAKER) (test iszd=559) 13 U/L 5-50 BASIC METABOLIC [id number] 11:03:00 Test Item Value Reference Range Comments SODIUM (BEAKER) (test 138 meq/L 135-148 gsqs=830) POTASSIUM (BEAKER) (test 3.6 meq/L 3.6-5.5 uvee=357) CHLORIDE (BEAKER) (test 106 meq/L 98-106 lyrt=224) CO2 (BEAKER) (test 21 meq/L 20-29 tzdp=493) BLOOD UREA NITROGEN 11 mg/dL 10-26 (BEAKER) (test kewq=275) CREATININE (BEAKER) (test 0.96 mg/dL 0.50-1.20 jyhx=205) GLUCOSE RANDOM (BEAKER) 212 mg/dL 70-110 (test iafx=466) CALCIUM (BEAKER) (test 9.4 mg/dL 8.5-10.5 ntsp=337) EGFR (BEAKER) (test 84 mL/min/1.73 sq m ESTIMATED GFR IS NOT ucmz=9761) ACCURATE CREATININE CLEARANCE IN PREDICTING GLOMERULAR FILTRATION RATE. ESTIMATED GFR IS NOT APPLICABLE FOR DIALYSIS PATIENTS. B-TYPE NATRIURETIC FACTOR (BNP)2018-05-24 11:02:00 Test Item Value Reference Range Comments B-TYPE NATRIURETIC PEPTIDE (BEAKER) (test kuog=950) 8 pg/mL 0-100 PT/[id number] 10:53:00 Test Item Value Reference Range Comments PROTIME (BEAKER) (test zvig=697) 9.9 sec 9.3-12.0 INR (BEAKER) (test mhmt=890) 0.9 <=5.9 PARTIAL THROMBOPLASTIN TIME (BEAKER) (test 39.3 sec 23.0-35.0 jgqy=247) RECOMMENDED COUMADIN/WARFARIN INR THERAPY RANGESSTANDARD DOSE: 2.0 - 3.0 Includes: PROPHYLAXIS forvenous thrombosis, systemic embolization; TREATMENT for venous thrombosis and/or pulmonary embolus.HIGH RISK: Target INR is 2.5-3.5 for patients with mechanical heart valves.Final Information (Auto Output)Final Information (Auto Output)Final Information (Auto Output)RAD, CHEST, 1 VIEW, NON [id number] 10:18:00Reason for exam:->CHEST PAINShould this be performed at the bedside?->YesFINAL REPORT Chest one view INDICATION: Chest pain COMPARISON: 09/27/2016 IMPRESSION: There is no focal consolidation, vascular congestion, pleural effusion, or pneumothorax. Heart size is within normal limits. Mild aortic tortuosity is noted. A right chest Port-A-Cath is in place. The bones appear intact. Signed: June Evangelista MDReport Verified Date/Time: 05/24/2018 10:18:17 Reading Location: [facility] Radiology Reading Room CBC W/PLT COUNT & AUTO [id number] 08: 55:00 Test Item Value Reference Range Comments WHITE BLOOD CELL COUNT (BEAKER) (test apvv=193) 5.4 K/ L 4.0-10.0 RED BLOOD CELL COUNT (BEAKER) (test glwo=258) 3.90 M/ L 4.20-5.80 HEMOGLOBIN (BEAKER) (test pzoz=326) 9.2 GM/DL 13.0-16.8 HEMATOCRIT (BEAKER) (test evuo=865) 29.2 % 40.0-50.0 MEAN CORPUSCULAR VOLUME (BEAKER) (test nsup=414) 75.0 fL 82.0-98.0 MEAN CORPUSCULAR HEMOGLOBIN (BEAKER) (test 23.7 pg 27.0-33.0 xmry=876) MEAN CORPUSCULAR HEMOGLOBIN CONC (BEAKER) (test 31.5 GM/DL 32.0-36.0 uqsh=262) RED CELL DISTRIBUTION WIDTH (BEAKER) (test 26.3 % 10.3-14.2 qooj=420) PLATELET COUNT (BEAKER) (test oggm=473) 338 K/CU MM 150-430 MEAN PLATELET VOLUME (BEAKER) (test cxwx=104) 7.9 fL 6.5-10.5 (MANUAL DIFFERENTIAL)2018-04-26 08:55:00 Test Item Value Reference Range Comments NEUTROPHILS - REL (DIFF) (BEAKER) (test njkx=8772) 61 % LYMPHOCYTES - REL (DIFF) (BEAKER) (test klrm=1087) 32 % MONOCYTES - REL (DIFF) (BEAKER) (test uvxo=5663) 5 % EOSINOPHILS - REL (DIFF) (BEAKER) (test maws=9422) 2 % NEUTROPHILS - ABS (DIFF) (BEAKER) (test ldfy=3448) 3.29 K/ L 1.80-8.00 LYMPHOCYTES - ABS (DIFF) (BEAKER) (test mqye=7642) 1.73 K/ L 1.48-4.50 MONOCYTES - ABS (DIFF) (BEAKER) (test bvel=4473) 0.27 K/ L 0.00-1.30 EOSINOPHILS - ABS (DIFF) (BEAKER) (test yrxl=1391) 0.11 K/ L 0.00-0.50 TOTAL COUNTED (BEAKER) (test tolw=4372) 100 WBC MORPHOLOGY (BEAKER) (test ytdn=001) Normal PLT MORPHOLOGY (BEAKER) (test jyli=203) Normal ANISOCYTOSIS (BEAKER) (test wpdq=120) 1+ few HYPOCHROMIA (BEAKER) (test keky=883) 3+ many PROTHROMBIN [id number] 06:37:00 Test Item Value Reference Range Comments PROTIME (BEAKER) (test qonh=324) 21.9 sec 9.3-12.0 INR (BEAKER) (test euuq=712) 2.1 <=5.9 RECOMMENDED COUMADIN/WARFARIN INR THERAPY RANGESSTANDARD DOSE: 2.0 - 3.0 Includes: PROPHYLAXIS forvenous thrombosis, systemic embolization; TREATMENT for venous thrombosis and/or pulmonary embolus.HIGH RISK: Target INR is 2.5-3.5 for patients with mechanical heart valves.Final Information (Auto Output)Final Information (Auto Output)[id number] 04:49:00 Test Item Value Reference Range Comments PARTIAL THROMBOPLASTIN TIME (BEAKER) (test kncm=095) > sec 23.0-35.0 Final Information (Auto Output)[id number] 16:53:00 Test Item Value Reference Range Comments PARTIAL THROMBOPLASTIN TIME (BEAKER) (test uppe=141) > sec 23.0-35.0 Final Information (Auto Output)[id number] 06:08:00 Test Item Value Reference Range Comments PARTIAL THROMBOPLASTIN TIME (BEAKER) (test 116.2 sec 23.0-35.0 zpcj=821) Final Information (Auto Output)PROTHROMBIN TIME/[id number] 06:01:00 Test Item Value Reference Range Comments PROTIME (BEAKER) (test nhdp=513) 15.9 sec 9.3-12.0 INR (BEAKER) (test jhbe=497) 1.5 <=5.9 RECOMMENDED COUMADIN/WARFARIN INR THERAPY RANGESSTANDARD DOSE: 2.0 - 3.0 Includes: PROPHYLAXIS forvenous thrombosis, systemic embolization; TREATMENT for venous thrombosis and/or pulmonary embolus.HIGH RISK: Target INR is 2.5-3.5 for patients with mechanical heart valves.Final Information (Auto Output)Final Information (Auto Output)[id number] 19:40:00 Test Item Value Reference Range Comments PARTIAL THROMBOPLASTIN TIME (BEAKER) (test 67.2 sec 23.0-35.0 kevq=631) Final Information (Auto Output)[id number] 10:46:00 Test Item Value Reference Range Comments PARTIAL THROMBOPLASTIN TIME (BEAKER) (test 63.5 sec 23.0-35.0 xpqg=802) Final Information (Auto Output)CBC W/PLT COUNT & AUTO [id number] 06:53:00 Test Item Value Reference Range Comments WHITE BLOOD CELL COUNT (BEAKER) (test fkzs=253) 6.3 K/ L 4.0-10.0 RED BLOOD CELL COUNT (BEAKER) (test vnrd=101) 3.98 M/ L 4.20-5.80 HEMOGLOBIN (BEAKER) (test rslf=092) 9.2 GM/DL 13.0-16.8 HEMATOCRIT (BEAKER) (test ifud=486) 29.6 % 40.0-50.0 MEAN CORPUSCULAR VOLUME (BEAKER) (test ellp=840) 74.3 fL 82.0-98.0 MEAN CORPUSCULAR HEMOGLOBIN (BEAKER) (test 23.1 pg 27.0-33.0 pmlr=523) MEAN CORPUSCULAR HEMOGLOBIN CONC (BEAKER) (test 31.1 GM/DL 32.0-36.0 whbf=008) RED CELL DISTRIBUTION WIDTH (BEAKER) (test 23.2 % 10.3-14.2 aqub=014) PLATELET COUNT (BEAKER) (test hoka=264) 356 K/CU MM 150-430 MEAN PLATELET VOLUME (BEAKER) (test ojlt=906) 7.3 fL 6.5-10.5 NUCLEATED RED BLOOD CELLS (BEAKER) (test 0 /100 WBC 0-0 mqkj=156) NEUTROPHILS RELATIVE PERCENT (BEAKER) (test 49 % lzuu=287) LYMPHOCYTES RELATIVE PERCENT (BEAKER) (test 36 % jkiv=327) MONOCYTES RELATIVE PERCENT (BEAKER) (test 12 % edmq=150) EOSINOPHILS RELATIVE PERCENT (BEAKER) (test 3 % iigr=112) BASOPHILS RELATIVE PERCENT (BEAKER) (test 0 % nrbd=814) NEUTROPHILS ABSOLUTE COUNT (BEAKER) (test 3.10 K/ L 1.80-8.00 owsk=811) LYMPHOCYTES ABSOLUTE COUNT (BEAKER) (test 2.30 K/ L 1.48-4.50 owbm=263) MONOCYTES ABSOLUTE COUNT (BEAKER) (test 0.80 K/ L 0.00-1.30 recj=298) EOSINOPHILS ABSOLUTE COUNT (BEAKER) (test 0.20 K/ L 0.00-0.50 lyvm=699) BASOPHILS ABSOLUTE COUNT (BEAKER) (test 0.00 K/ L 0.00-0.20 kwau=913) (MANUAL DIFFERENTIAL)2018-04-24 06:53:00 Test Item Value Reference Range Comments TOTAL COUNTED (BEAKER) (test lufp=4136) WBC MORPHOLOGY (BEAKER) (test oiil=350) Normal PLT MORPHOLOGY (BEAKER) (test zlfb=557) Normal ANISOCYTOSIS (BEAKER) (test fzjn=009) 2+ moderate BASOPHILIC STIPPLING (BEAKER) (test rmnp=513) Present HYPOCHROMIA (BEAKER) (test bctl=270) 2+ moderate MACROCYTES (BEAKER) (test bonf=187) 1+ few MICROCYTES (BEAKER) (test togw=999) 1+ few POLYCHROMATOPHILLIC RBCS(BEAKER) (test tbfh=768) 1+ few PROTHROMBIN TIME/[id number] 05:46:00 Test Item Value Reference Range Comments PROTIME (BEAKER) (test fafu=220) 14.5 sec 9.3-12.0 INR (BEAKER) (test fygk=367) 1.4 <=5.9 RECOMMENDED COUMADIN/WARFARIN INR THERAPY RANGESSTANDARD DOSE: 2.0 - 3.0 Includes: PROPHYLAXIS forvenous thrombosis, systemic embolization; TREATMENT for venous thrombosis and/or pulmonary embolus.HIGH RISK: Target INR is 2.5-3.5 for patients with mechanical heart valves.Final Information (Auto Output)Final Information (Auto Output)[id number] 01:17:00 Test Item Value Reference Range Comments PARTIAL THROMBOPLASTIN TIME (BEAKER) (test 71.8 sec 23.0-35.0 oxog=284) Final Information (Auto Output)[id number] 15:40:00 Test Item Value Reference Range Comments PARTIAL THROMBOPLASTIN TIME (BEAKER) (test 34.8 sec 23.0-35.0 figy=599) Final Information (Auto Output)PROTHROMBIN [id number] 06:10:00 Test Item Value Reference Range Comments PROTIME (BEAKER) (test luwz=256) 12.2 sec 9.3-12.0 INR (BEAKER) (test nyoc=337) 1.1 <=5.9 RECOMMENDED COUMADIN/WARFARIN INR THERAPY RANGESSTANDARD DOSE: 2.0 - 3.0 Includes: PROPHYLAXIS forvenous thrombosis, systemic embolization; TREATMENT for venous thrombosis and/or pulmonary embolus.HIGH RISK: Target INR is 2.5-3.5 for patients with mechanical heart valves.Final Information (Auto Output)Final Information (Auto Output)[id number] 06:10:00 Test Item Value Reference Range Comments PARTIAL THROMBOPLASTIN TIME (BEAKER) (test 36.3 sec 23.0-35.0 puzc=511) Final Information (Auto Output)[id number] 20:01:00 Test Item Value Reference Range Comments PARTIAL THROMBOPLASTIN TIME (BEAKER) (test 122.6 sec 23.0-35.0 afkb=382) Final Information (Auto Output)PROTHROMBIN TIME/[id number] 12:53:00 Test Item Value Reference Range Comments PROTIME (BEAKER) (test pqfb=505) 12.6 sec 9.3-12.0 INR (BEAKER) (test fnuf=550) 1.2 <=5.9 RECOMMENDED COUMADIN/WARFARIN INR THERAPY RANGESSTANDARD DOSE: 2.0 - 3.0 Includes: PROPHYLAXIS forvenous thrombosis, systemic embolization; TREATMENT for venous thrombosis and/or pulmonary embolus.HIGH RISK: Target INR is 2.5-3.5 for patients with mechanical heart valves.Final Information (Auto Output)Final Information (Auto Output)PROTEIN ELECTROPHORESIS, [id number] 12:15:00 Test Item Value Reference Range Comments ALBUMIN FRACTION (BEAKER) 3.5 g/dL 3.5-5.5 (test scgt=349) ALPHA 1 FRACTION (BEAKER) 0.2 g/dL 0.2-0.4 (test zpvf=175) ALPHA 2 FRACTION (BEAKER) 0.6 g/dL 0.5-0.9 (test wsgj=087) BETA FRACTION (BEAKER) (test 1.1 g/dL 0.6-1.1 mraf=473) GAMMA GLOBULIN FRACTION 0.8 g/dL 0.7-1.7 (BEAKER) (test chhd=452) INTERPRETATION-119 (BEAKER) All fractions present in (test egav=1454) expected distribution. No monoclonal bands detected. [id number] (BEAKER) Annmarie Thomas MD (test iwsx=8110) (electronic signature) PROTEIN TOTAL SERUM, SPEP 6.3 gm/dL 6.0-8.3 (BEAKER) (test mkwv=2516) CBC W/PLT COUNT & AUTO [id number] 11:59:00 Test Item Value Reference Range Comments WHITE BLOOD CELL COUNT (BEAKER) (test icvc=743) 6.4 K/ L 4.0-10.0 RED BLOOD CELL COUNT (BEAKER) (test ufez=892) 3.87 M/ L 4.20-5.80 HEMOGLOBIN (BEAKER) (test qqkb=714) 8.8 GM/DL 13.0-16.8 HEMATOCRIT (BEAKER) (test vgry=467) 28.3 % 40.0-50.0 MEAN CORPUSCULAR VOLUME (BEAKER) (test lyae=971) 72.9 fL 82.0-98.0 MEAN CORPUSCULAR HEMOGLOBIN (BEAKER) (test 22.7 pg 27.0-33.0 cqyf=816) MEAN CORPUSCULAR HEMOGLOBIN CONC (BEAKER) (test 31.1 GM/DL 32.0-36.0 xqhi=631) RED CELL DISTRIBUTION WIDTH (BEAKER) (test 22.3 % 10.3-14.2 scee=670) PLATELET COUNT (BEAKER) (test pqtj=607) 339 K/CU MM 150-430 MEAN PLATELET VOLUME (BEAKER) (test nuuc=442) 7.0 fL 6.5-10.5 NUCLEATED RED BLOOD CELLS (BEAKER) (test 0 /100 WBC 0-0 wwip=110) NEUTROPHILS RELATIVE PERCENT (BEAKER) (test 53 % qhkc=321) LYMPHOCYTES RELATIVE PERCENT (BEAKER) (test 31 % hvdy=182) MONOCYTES RELATIVE PERCENT (BEAKER) (test 13 % krtm=138) EOSINOPHILS RELATIVE PERCENT (BEAKER) (test 3 % whbh=352) BASOPHILS RELATIVE PERCENT (BEAKER) (test 0 % tkve=369) NEUTROPHILS ABSOLUTE COUNT (BEAKER) (test 3.40 K/ L 1.80-8.00 fbeq=262) LYMPHOCYTES ABSOLUTE COUNT (BEAKER) (test 2.00 K/ L 1.48-4.50 pqud=886) MONOCYTES ABSOLUTE COUNT (BEAKER) (test 0.80 K/ L 0.00-1.30 tyfz=514) EOSINOPHILS ABSOLUTE COUNT (BEAKER) (test 0.20 K/ L 0.00-0.50 uusy=936) BASOPHILS ABSOLUTE COUNT (BEAKER) (test 0.00 K/ L 0.00-0.20 htuh=363) (MANUAL DIFFERENTIAL)2018-04-22 11:59:00 Test Item Value Reference Range Comments TOTAL COUNTED (BEAKER) (test qhzw=1884) WBC MORPHOLOGY (BEAKER) (test gkhn=372) Normal PLT MORPHOLOGY (BEAKER) (test jkxl=899) Normal ANISOCYTOSIS (BEAKER) (test fosz=737) 2+ moderate HYPOCHROMIA (BEAKER) (test ofsy=351) 3+ many PROTHROMBIN GENE [id number] 11:51:00 Test Item Value Reference Range Comments PROTHROMBIN/FACTOR II Negative for the [id number] (BEAKER) (test algn=5025) (Prothrombin/Factor II) mutation. [id number](NIMO Thomas MD ) (test mtbg=8846) (electronic signature) This test is a genotyping assay which evaluates the DNA sequence at position 05466 of the prothrombin (Factor II) gene. A [...] and its performance characteristics determined by the [facility] Pathology Department, Section of Molecular Pathology. It [...] (BEAKER) Negative for the R506Q (Factor (test qfok=100) V Leiden) mutation [id number] ([facility]) Annmarie Thomas MD (test bwnc=0060) (electronic signature) This test is a genotyping [...] [facility] developed [facility]. It has not been cleared or approved by the U.S. Food and Drug Administration (FDA), since FDA approval is not required for clinical use of the test. Validation was done as required by the Clinical Laboratory Improvement Amendments of 1988.[id number] 10:00:00 Test Item Value Reference Range Comments PARTIAL THROMBOPLASTIN TIME (BEAKER) (test vlhk=928) > sec 23.0-35.0 Final Information (Auto Output)[id number] 00:43:00 Test Item Value Reference Range Comments PARTIAL THROMBOPLASTIN TIME (BEAKER) (test 81.0 sec 23.0-35.0 hnop=953) Final Information (Auto Output)[id number] 17:32:00 Test Item Value Reference Range Comments PARTIAL THROMBOPLASTIN TIME (BEAKER) (test 37.3 sec 23.0-35.0 wemq=586) Final Information (Auto Output)CBC W/PLT COUNT & AUTO [id number] 08:19:00 Test Item Value Reference Range Comments WHITE BLOOD CELL COUNT (BEAKER) (test wzhq=450) 6.2 K/ L 4.0-10.0 RED BLOOD CELL COUNT (BEAKER) (test omki=181) 3.89 M/ L 4.20-5.80 HEMOGLOBIN (BEAKER) (test ikqu=068) 8.7 GM/DL 13.0-16.8 HEMATOCRIT (BEAKER) (test umow=185) 27.8 % 40.0-50.0 MEAN CORPUSCULAR VOLUME (BEAKER) (test thce=437) 71.4 fL 82.0-98.0 MEAN CORPUSCULAR HEMOGLOBIN (BEAKER) (test 22.4 pg 27.0-33.0 coex=122) MEAN CORPUSCULAR HEMOGLOBIN CONC (BEAKER) (test 31.4 GM/DL 32.0-36.0 inpk=215) RED CELL DISTRIBUTION WIDTH (BEAKER) (test 21.7 % 10.3-14.2 cwsw=160) PLATELET COUNT (BEAKER) (test twfa=473) 347 K/CU MM 150-430 MEAN PLATELET VOLUME (BEAKER) (test iiiy=288) 7.1 fL 6.5-10.5 NUCLEATED RED BLOOD CELLS (BEAKER) (test 0 /100 WBC 0-0 qlzn=340) NEUTROPHILS RELATIVE PERCENT (BEAKER) (test 52 % wbxd=854) LYMPHOCYTES RELATIVE PERCENT (BEAKER) (test 34 % kufs=128) MONOCYTES RELATIVE PERCENT (BEAKER) (test 10 % fzgf=193) EOSINOPHILS RELATIVE PERCENT (BEAKER) (test 3 % kvan=542) BASOPHILS RELATIVE PERCENT (BEAKER) (test 0 % dttl=680) NEUTROPHILS ABSOLUTE COUNT (BEAKER) (test 3.20 K/ L 1.80-8.00 nbqu=194) LYMPHOCYTES ABSOLUTE COUNT (BEAKER) (test 2.10 K/ L 1.48-4.50 gljq=856) MONOCYTES ABSOLUTE COUNT (BEAKER) (test 0.60 K/ L 0.00-1.30 vgua=590) EOSINOPHILS ABSOLUTE COUNT (BEAKER) (test 0.20 K/ L 0.00-0.50 dkjf=319) BASOPHILS ABSOLUTE COUNT (BEAKER) (test 0.00 K/ L 0.00-0.20 zpag=625) (MANUAL DIFFERENTIAL)2018-04-21 08:19:00 Test Item Value Reference Range Comments TOTAL COUNTED (BEAKER) (test jfli=7362) WBC MORPHOLOGY (BEAKER) (test wlyc=302) Normal PLT MORPHOLOGY (BEAKER) (test wukt=127) Normal ANISOCYTOSIS (BEAKER) (test gzjw=421) 2+ moderate HYPOCHROMIA (BEAKER) (test ctpl=738) 2+ moderate MICROCYTES (BEAKER) (test khqu=160) 1+ few POLYCHROMATOPHILLIC RBCS(BEAKER) (test llst=882) 1+ few BASIC METABOLIC [id number] 08:00:00 Test Item Value Reference Range Comments SODIUM (BEAKER) (test 141 meq/L 135-148 ldyr=142) POTASSIUM (BEAKER) (test 3.6 meq/L 3.6-5.5 cwfv=975) CHLORIDE (BEAKER) (test 109 meq/L 98-106 mjqo=013) CO2 (BEAKER) (test 24 meq/L 20-29 ugne=367) BLOOD UREA NITROGEN 9 mg/dL 10-26 (BEAKER) (test gtvo=820) CREATININE (BEAKER) (test 0.76 mg/dL 0.50-1.20 tunp=489) GLUCOSE RANDOM (BEAKER) 86 mg/dL 70-110 (test bozx=522) CALCIUM (BEAKER) (test 9.0 mg/dL 8.5-10.5 ksht=809) EGFR (BEAKER) (test 110 mL/min/1.73 sq m ESTIMATED GFR IS NOT huas=2374) ACCURATE CREATININE CLEARANCE IN PREDICTING GLOMERULAR FILTRATION RATE. ESTIMATED GFR IS NOT APPLICABLE FOR DIALYSIS PATIENTS. PROTHROMBIN TIME/[id number] 07:55:00 Test Item Value Reference Range Comments PROTIME (BEAKER) (test igsp=712) 11.4 sec 9.3-12.0 INR (BEAKER) (test ikwe=730) 1.1 <=5.9 RECOMMENDED COUMADIN/WARFARIN INR THERAPY RANGESSTANDARD DOSE: 2.0 - 3.0 Includes: PROPHYLAXIS forvenous thrombosis, systemic embolization; TREATMENT for venous thrombosis and/or pulmonary embolus.HIGH RISK: Target INR is 2.5-3.5 for patients with mechanical heart valves.Final Information (Auto Output)Final Information (Auto Output)[id number] 07:52:00 Test Item Value Reference Range Comments PARTIAL THROMBOPLASTIN TIME (BEAKER) (test 71.6 sec 23.0-35.0 exes=506) Final Information (Auto Output)[id number] 22:28:00 Test Item Value Reference Range Comments PARTIAL THROMBOPLASTIN TIME (BEAKER) (test 119.3 sec 23.0-35.0 dnnf=084) Final Information (Auto Output)CBC (HEMOGRAM ONLY)2018-04-20 21:32:00 Test Item Value Reference Range Comments WHITE BLOOD CELL COUNT (BEAKER) (test kuwn=833) 7.0 K/ L 4.0-10.0 RED BLOOD CELL COUNT (BEAKER) (test flaj=108) 3.89 M/ L 4.20-5.80 HEMOGLOBIN (BEAKER) (test olqe=090) 8.8 GM/DL 13.0-16.8 HEMATOCRIT (BEAKER) (test mgvp=846) 27.6 % 40.0-50.0 MEAN CORPUSCULAR VOLUME (BEAKER) (test gkgv=105) 70.8 fL 82.0-98.0 MEAN CORPUSCULAR HEMOGLOBIN (BEAKER) (test 22.6 pg 27.0-33.0 ypex=985) MEAN CORPUSCULAR HEMOGLOBIN CONC (BEAKER) (test 32.0 GM/DL 32.0-36.0 clku=832) RED CELL DISTRIBUTION WIDTH (BEAKER) (test 20.0 % 10.3-14.2 tspu=270) PLATELET COUNT (BEAKER) (test vfbb=116) 360 K/CU MM 150-430 MEAN PLATELET VOLUME (BEAKER) (test fcwk=873) 7.4 fL 6.5-10.5 [id number] 12:43:00 Test Item Value Reference Range Comments PARTIAL THROMBOPLASTIN TIME (BEAKER) (test 72.2 sec 23.0-35.0 zotl=433) Final Information (Auto Output)CARDIOLIPIN ANTIBODIES, IGG AND [id number] 12: 16:00 Test Item Value Reference Range Comments ANTICARDIOLIPIN IGG ANTIBODY (BEAKER) (test < GPL <20.0 gdin=299) ANTICARDIOLIPIN IGM ANTIBODY (BEAKER) (test 0.5 MPL <20.0 macp=894) Anticardiolipin IgG Result Interpretation: <20.0 GPL Normal>/=20.0 GPL PositiveAnticardiolipin IgM Result Interpretation: <20.0 MPL Normal>/= 20.0 MPL PositiveCBC W/PLT COUNT & AUTO [id number] 08:58:00 Test Item Value Reference Range Comments WHITE BLOOD CELL COUNT (BEAKER) (test otcr=239) 6.4 K/ L 4.0-10.0 RED BLOOD CELL COUNT (BEAKER) (test nvra=741) 4.00 M/ L 4.20-5.80 HEMOGLOBIN (BEAKER) (test dxbp=230) 9.0 GM/DL 13.0-16.8 HEMATOCRIT (BEAKER) (test iesv=012) 28.6 % 40.0-50.0 MEAN CORPUSCULAR VOLUME (BEAKER) (test mwbv=023) 71.7 fL 82.0-98.0 MEAN CORPUSCULAR HEMOGLOBIN (BEAKER) (test 22.5 pg 27.0-33.0 upoz=514) MEAN CORPUSCULAR HEMOGLOBIN CONC (BEAKER) (test 31.4 GM/DL 32.0-36.0 tksz=357) RED CELL DISTRIBUTION WIDTH (BEAKER) (test 21.7 % 10.3-14.2 ilfd=503) PLATELET COUNT (BEAKER) (test rkpm=602) 355 K/CU MM 150-430 MEAN PLATELET VOLUME (BEAKER) (test bsen=586) 7.1 fL 6.5-10.5 NUCLEATED RED BLOOD CELLS (BEAKER) (test 0 /100 WBC 0-0 fhbq=237) NEUTROPHILS RELATIVE PERCENT (BEAKER) (test 48 % njbh=309) LYMPHOCYTES RELATIVE PERCENT (BEAKER) (test 36 % rure=826) MONOCYTES RELATIVE PERCENT (BEAKER) (test 12 % cgur=376) EOSINOPHILS RELATIVE PERCENT (BEAKER) (test 4 % ajuj=879) BASOPHILS RELATIVE PERCENT (BEAKER) (test 0 % vmtd=983) NEUTROPHILS ABSOLUTE COUNT (BEAKER) (test 3.10 K/ L 1.80-8.00 hxyh=931) LYMPHOCYTES ABSOLUTE COUNT (BEAKER) (test 2.30 K/ L 1.48-4.50 kmsj=369) MONOCYTES ABSOLUTE COUNT (BEAKER) (test 0.80 K/ L 0.00-1.30 gifa=667) EOSINOPHILS ABSOLUTE COUNT (BEAKER) (test 0.20 K/ L 0.00-0.50 ybyu=621) BASOPHILS ABSOLUTE COUNT (BEAKER) (test 0.00 K/ L 0.00-0.20 mcwv=099) (MANUAL DIFFERENTIAL)2018-04-20 08:58:00 Test Item Value Reference Range Comments TOTAL COUNTED (BEAKER) (test ptoy=3576) WBC MORPHOLOGY (BEAKER) (test tipb=668) Normal PLT MORPHOLOGY (BEAKER) (test wrgt=145) Normal ANISOCYTOSIS (BEAKER) (test bvrw=197) 1+ few HYPOCHROMIA (BEAKER) (test niwa=200) 1+ few POIKILOCYTES (BEAKER) (test hglf=475) 1+ few POLYCHROMATOPHILLIC RBCS(BEAKER) (test iwqb=628) 1+ few BASIC METABOLIC [id number] 08:26:00 Test Item Value Reference Range Comments SODIUM (BEAKER) (test 140 meq/L 135-148 ieev=644) POTASSIUM (BEAKER) (test 3.9 meq/L 3.6-5.5 juzo=379) CHLORIDE (BEAKER) (test 107 meq/L 98-106 zhdk=277) CO2 (BEAKER) (test 24 meq/L 20-29 zrjm=250) BLOOD UREA NITROGEN 12 mg/dL 10-26 (BEAKER) (test shiz=360) CREATININE (BEAKER) (test 0.76 mg/dL 0.50-1.20 kagy=953) GLUCOSE RANDOM (BEAKER) 92 mg/dL 70-110 (test bnmt=066) CALCIUM (BEAKER) (test 8.9 mg/dL 8.5-10.5 qutz=553) EGFR (BEAKER) (test 110 mL/min/1.73 sq m ESTIMATED GFR IS NOT nrta=6450) ACCURATE CREATININE CLEARANCE IN PREDICTING GLOMERULAR FILTRATION RATE. ESTIMATED GFR IS NOT APPLICABLE FOR DIALYSIS PATIENTS. PROTHROMBIN [id number] 08:16:00 Test Item Value Reference Range Comments PROTIME (BEAKER) (test vpsp=027) 10.6 sec 9.3-12.0 INR (BEAKER) (test lucu=256) 1.0 <=5.9 RECOMMENDED COUMADIN/WARFARIN INR THERAPY RANGESSTANDARD DOSE: 2.0 - 3.0 Includes: PROPHYLAXIS forvenous thrombosis, systemic embolization; TREATMENT for venous thrombosis and/or pulmonary embolus.HIGH RISK: Target INR is 2.5-3.5 for patients with mechanical heart valves.Final Information (Auto Output)Final Information (Auto Output)[id number] 08:16:00 Test Item Value Reference Range Comments D-DIMER QUANTITATIVE (BEAKER) (test onda=707) 0.93 mg/L <0.50 REGARDING D-DIMER RESULTS: The 98% NPV (Negative Predictive Value) for DVT/PE exclusion is 0.50 mg/LFEU as suggested by the cutter head sharpener and as approved by the FDA.Final Information (Auto Output)[id number] 02:51:00 Test Item Value Reference Range Comments PARTIAL THROMBOPLASTIN TIME (BEAKER) (test vetv=585) > sec 23.0-35.0 Final Information (Auto Output)[id number] 17:54:00 Test Item Value Reference Range Comments PARTIAL THROMBOPLASTIN TIME (BEAKER) (test 72.2 sec 23.0-35.0 cdtr=916) Final Information (Auto Output)ANTITHROMBIN [id number] 11:29:00 Test Item Value Reference Range Comments ANTITHROMBIN III ACTIVITY (BEAKER) (test egpk=465) 81.0 % 80.0-120.0 CBC W/PLT COUNT & AUTO [id number] 10:34:00 Test Item Value Reference Range Comments WHITE BLOOD CELL COUNT (BEAKER) (test bimf=095) 6.6 K/ L 4.0-10.0 RED BLOOD CELL COUNT (BEAKER) (test eldh=929) 3.93 M/ L 4.20-5.80 HEMOGLOBIN (BEAKER) (test ddmw=348) 8.9 GM/DL 13.0-16.8 HEMATOCRIT (BEAKER) (test vjri=094) 28.3 % 40.0-50.0 MEAN CORPUSCULAR VOLUME (BEAKER) (test qumr=496) 71.9 fL 82.0-98.0 MEAN CORPUSCULAR HEMOGLOBIN (BEAKER) (test 22.5 pg 27.0-33.0 wgey=219) MEAN CORPUSCULAR HEMOGLOBIN CONC (BEAKER) (test 31.3 GM/DL 32.0-36.0 bzze=271) RED CELL DISTRIBUTION WIDTH (BEAKER) (test 21.0 % 10.3-14.2 tfmu=748) PLATELET COUNT (BEAKER) (test yfqu=446) 339 K/CU MM 150-430 MEAN PLATELET VOLUME (BEAKER) (test vxzq=626) 7.2 fL 6.5-10.5 NUCLEATED RED BLOOD CELLS (BEAKER) (test 0 /100 WBC 0-0 dbwo=734) NEUTROPHILS RELATIVE PERCENT (BEAKER) (test 52 % aene=677) LYMPHOCYTES RELATIVE PERCENT (BEAKER) (test 32 % rcob=622) MONOCYTES RELATIVE PERCENT (BEAKER) (test 11 % ahul=351) EOSINOPHILS RELATIVE PERCENT (BEAKER) (test 4 % oqog=267) BASOPHILS RELATIVE PERCENT (BEAKER) (test 0 % btba=204) NEUTROPHILS ABSOLUTE COUNT (BEAKER) (test 3.40 K/ L 1.80-8.00 vqhe=079) LYMPHOCYTES ABSOLUTE COUNT (BEAKER) (test 2.10 K/ L 1.48-4.50 gduy=585) MONOCYTES ABSOLUTE COUNT (BEAKER) (test 0.70 K/ L 0.00-1.30 hqmu=544) EOSINOPHILS ABSOLUTE COUNT (BEAKER) (test 0.30 K/ L 0.00-0.50 hrwk=422) BASOPHILS ABSOLUTE COUNT (BEAKER) (test 0.00 K/ L 0.00-0.20 scph=244) (MANUAL DIFFERENTIAL)2018-04-19 10:34:00 Test Item Value Reference Range Comments TOTAL COUNTED (BEAKER) (test dkbd=3741) WBC MORPHOLOGY (BEAKER) (test osoa=668) Normal PLT MORPHOLOGY (BEAKER) (test vphu=212) Normal ANISOCYTOSIS (BEAKER) (test bkvj=836) 3+ many HYPOCHROMIA (BEAKER) (test qwsn=337) 2+ moderate MICROCYTES (BEAKER) (test sjac=097) 1+ few TROPONIN [id number] 09:42:00 Test Item Value Reference Range Comments TROPONIN I (BEAKER) (test ryoa=182) < ng/mL 0.00-0.15 Troponin I (TnI) levels [...] acute neurological disease, and persistent tachyarrhythmia.BASIC METABOLIC [id number] 09:34:00 Test Item Value Reference Range Comments SODIUM (BEAKER) (test 140 meq/L 135-148 wvcl=518) POTASSIUM (BEAKER) (test 3.8 meq/L 3.6-5.5 jiiw=975) CHLORIDE (BEAKER) (test 107 meq/L 98-106 nvai=328) CO2 (BEAKER) (test 25 meq/L 20-29 jhbw=745) BLOOD UREA NITROGEN 12 mg/dL 10-26 (BEAKER) (test hxpx=312) CREATININE (BEAKER) (test 0.83 mg/dL 0.50-1.20 cqfl=960) GLUCOSE RANDOM (BEAKER) 106 mg/dL 70-110 (test eabe=937) CALCIUM (BEAKER) (test 9.1 mg/dL 8.5-10.5 fnlt=135) EGFR (BEAKER) (test 99 mL/min/1.73 sq m ESTIMATED GFR IS NOT bmoj=0077) ACCURATE CREATININE CLEARANCE IN PREDICTING GLOMERULAR FILTRATION RATE. ESTIMATED GFR IS NOT APPLICABLE FOR DIALYSIS PATIENTS. [id number] 05:06:00 Test Item Value Reference Range Comments PROTIME (BEAKER) (test xbyt=639) 10.0 sec 9.3-12.0 INR (BEAKER) (test ylet=515) 0.9 <=5.9 PARTIAL THROMBOPLASTIN TIME (BEAKER) (test 26.5 sec 23.0-35.0 xdhf=287) RECOMMENDED COUMADIN/WARFARIN INR THERAPY RANGESSTANDARD DOSE: 2.0 - 3.0 Includes: PROPHYLAXIS forvenous thrombosis, systemic embolization; TREATMENT for venous thrombosis and/or pulmonary embolus.HIGH RISK: Target INR is 2.5-3.5 for patients with mechanical heart valves.Final Information (Auto Output)Final Information (Auto Output)Final Information (Auto Output)TROPONIN [id number] 20: 04:00 Test Item Value Reference Range Comments TROPONIN I (BEAKER) (test nfwa=380) < ng/mL 0.00-0.15 Troponin I (TnI) levels [...] failure, acidosis, acute neurological disease, and persistent tachyarrhythmia.[id number] 20:01:00 Test Item Value Reference Range Comments HOMOCYSTEINE (BEAKER) (test pcij=750) 6.1 umol/L 5.1-15.4 VITAMIN B12 AND [id number] 18:10:00 Test Item Value Reference Range Comments VITAMIN B12 (BEAKER) (test henm=566) 497 pg/mL 213-816 FOLATE (BEAKER) (test kqwh=669) 6.5 ng/mL >=7.0 IRON, TIBC, % SAT. (WITHOUT FERRITIN)2018-04-18 17:43:00 Test Item Value Reference Range Comments IRON (BEAKER) (test woih=997) 16 ug/dL 40-160 TOTAL IRON BINDING CAPACITY (BEAKER) (test 468 ug/dL 250-450 nuzm=345) IRON % SATURATION (2) (BEAKER) (test wiok=6746) 3 % 20-55 [id number] 13:31:00 Test Item Value Reference Range Comments PROTIME (BEAKER) (test yleb=410) 10.9 sec 9.3-12.0 INR (BEAKER) (test ryty=516) 1.0 <=5.9 PARTIAL THROMBOPLASTIN TIME (BEAKER) (test 131.9 sec 23.0-35.0 nhtl=070) RECOMMENDED COUMADIN/WARFARIN INR THERAPY RANGESSTANDARD DOSE: 2.0 - 3.0 Includes: PROPHYLAXIS forvenous thrombosis, systemic embolization; TREATMENT for venous thrombosis and/or pulmonary embolus.HIGH RISK: Target INR is 2.5-3.5 for patients with mechanical heart valves.Final Information (Auto Output)Final Information (Auto Output)Final Information (Auto Output)PATIENT ON BLOOD THINNER PER [facility] WRGIHT [id number] DOPPLER LEGS, [id number] 12:31: 00Reason for exam:->PEFINAL REPORT History: Lower [...] the bilateral lower extremities. Signed: Tremayne Tapia MDReport Verified Date/Time: 04/18/2018 12:31:58 Reading Location: [facility] Radiology Reading Room Electronically signed by: TREMAYNE TAPIA M.D. on 06/2018 12:31 [id number] 12:28:00 Test Item Value Reference Range Comments FERRITIN (BEAKER) (test mpzx=567) 8 ng/mL 22-322 LACTATE DEHYDROGENASE (LDH)2018-04-18 11:27:00 Test Item Value Reference Range Comments LACTATE DEHYDROGENASE (BEAKER) (test grqb=617) 174 U/L 107-206 RETICULOCYTE [id number] 11:11:00 Test Item Value Reference Range Comments RETICULOCYTE COUNT PCT (BEAKER) (test dshs=072) 1.5 % 0.4-2.9 TROPONIN [id number] 06:08:00 Test Item Value Reference Range Comments TROPONIN I (BEAKER) (test zaus=136) < ng/mL 0.00-0.15 Troponin I (TnI) levels [...] acute neurological disease, and persistent tachyarrhythmia.BASIC METABOLIC [id number] 06:00:00 Test Item Value Reference Range Comments SODIUM (BEAKER) (test 138 meq/L 135-148 azot=764) POTASSIUM (BEAKER) (test 3.7 meq/L 3.6-5.5 vreh=487) CHLORIDE (BEAKER) (test 107 meq/L 98-106 nwkx=154) CO2 (BEAKER) (test 24 meq/L 20-29 xpxx=539) BLOOD UREA NITROGEN 8 mg/dL 10-26 (BEAKER) (test trwb=807) CREATININE (BEAKER) (test 0.84 mg/dL 0.50-1.20 koza=457) GLUCOSE RANDOM (BEAKER) 86 mg/dL 70-110 (test dkoa=532) CALCIUM (BEAKER) (test 8.2 mg/dL 8.5-10.5 gewy=205) EGFR (BEAKER) (test 98 mL/min/1.73 sq m ESTIMATED GFR IS NOT dpoe=6423) ACCURATE CREATININE CLEARANCE IN PREDICTING GLOMERULAR FILTRATION RATE. ESTIMATED GFR IS NOT APPLICABLE FOR DIALYSIS PATIENTS. [id number] 01:22:00 Test Item Value Reference Range Comments PARTIAL THROMBOPLASTIN TIME (BEAKER) (test 23.3 seconds 23.0-35.0 tlbi=202) CBC (HEMOGRAM ONLY)2018-04-18 01:12:00 Test Item Value Reference Range Comments WHITE BLOOD CELL COUNT (BEAKER) (test icot=378) 7.5 K/ L 4.0-10.0 RED BLOOD CELL COUNT (BEAKER) (test rnzb=040) 3.77 M/ L 4.20-5.80 HEMOGLOBIN (BEAKER) (test cxlf=373) 8.0 GM/DL 13.0-16.8 HEMATOCRIT (BEAKER) (test dvks=012) 26.3 % 40.0-50.0 MEAN CORPUSCULAR VOLUME (BEAKER) (test eqrr=135) 69.7 fL 82.0-98.0 MEAN CORPUSCULAR HEMOGLOBIN (BEAKER) (test 21.2 pg 27.0-33.0 ctha=734) MEAN CORPUSCULAR HEMOGLOBIN CONC (BEAKER) (test 30.4 GM/DL 32.0-36.0 wolv=418) RED CELL DISTRIBUTION WIDTH (BEAKER) (test 19.2 % 10.3-14.2 fmfr=211) PLATELET COUNT (BEAKER) (test vepe=249) 395 K/CU MM 150-430 MEAN PLATELET VOLUME (BEAKER) (test cugx=375) 7.6 fL 6.5-10.5 CT, CHEST WITH IV CONTRAST- PE TEST [id number] 23:21:00Reason for exam:-& gt;CHEST PAINWhat is the [...] discussed with Dr. Flores. Signed: Eron Chauhan MDReport Verified Date/Time: 04/17/2018 23:21:52 Reading Location: [address] Reading Room Electronically signed by: ERON CHAUHAN M.D. on 05/2018 11:21 PMCREATINE KINASE (CK), TOTAL AND [id number] 22:25:00 Test Item Value Reference Range Comments CREATINE KINASE TOTAL (BEAKER) (test guey=951) 87 U/L 40-250 CREATINE KINASE-MB (BEAKER) (test ihkn=214) 1.1 ng/mL 0.0-4.9 CREATINE KINASE-MB INDEX (BEAKER) (test mocq=165) 1.3 % CK-MB Reference Range:<5 Normal5-10 Borderline>10 AbnormalTSH/FREE T4 IF [id number] 22:07:00 Test Item Value Reference Range Comments THYROID STIMULATING HORMONE (BEAKER) (test 0.71 uIU/mL 0.35-5.50 ftjg=880) B-TYPE NATRIURETIC FACTOR (BNP)2018-04-17 21:44:00 Test Item Value Reference Range Comments B-TYPE NATRIURETIC PEPTIDE (BEAKER) (test jffi=022) 8 pg/mL 0-100 TROPONIN [id number] 21:43:00 Test Item Value Reference Range Comments TROPONIN I (BEAKER) (test qcdx=965) < ng/mL 0.00-0.15 Troponin I (TnI) levels [...] acute neurological disease, and persistent tachyarrhythmia.BASIC METABOLIC [id number] 21:39:00 Test Item Value Reference Range Comments SODIUM (BEAKER) (test 140 meq/L 135-148 slel=603) POTASSIUM (BEAKER) (test 3.6 meq/L 3.6-5.5 uebm=571) CHLORIDE (BEAKER) (test 106 meq/L 98-106 xszp=772) CO2 (BEAKER) (test 21 meq/L 20-29 arre=883) BLOOD UREA NITROGEN 7 mg/dL 10-26 (BEAKER) (test jksl=511) CREATININE (BEAKER) (test 1.00 mg/dL 0.50-1.20 pflk=714) GLUCOSE RANDOM (BEAKER) 140 mg/dL 70-110 (test hndk=879) CALCIUM (BEAKER) (test 9.1 mg/dL 8.5-10.5 arzu=537) EGFR (BEAKER) (test 80 mL/min/1.73 sq m ESTIMATED GFR IS NOT kwnm=9011) ACCURATE CREATININE CLEARANCE IN PREDICTING GLOMERULAR FILTRATION RATE. ESTIMATED GFR IS NOT APPLICABLE FOR DIALYSIS PATIENTS. PROTHROMBIN TIME/[id number] 21:28:00 Test Item Value Reference Range Comments PROTIME (BEAKER) (test vfvm=816) 10.1 sec 9.3-12.0 INR (BEAKER) (test kzts=576) 0.9 <=5.9 RECOMMENDED COUMADIN/WARFARIN INR THERAPY RANGESSTANDARD DOSE: 2.0 - 3.0 Includes: PROPHYLAXIS forvenous thrombosis, systemic embolization; TREATMENT for venous thrombosis and/or pulmonary embolus.HIGH RISK: Target INR is 2.5-3.5 for patients with mechanical heart valves.Final Information (Auto Output)Final Information (Auto Output)CBC W/PLT COUNT & AUTO [id number] 21:25 :00 Test Item Value Reference Range Comments WHITE BLOOD CELL COUNT (BEAKER) (test yyci=516) 5.7 K/ L 4.0-10.0 RED BLOOD CELL COUNT (BEAKER) (test dhmq=460) 3.76 M/ L 4.20-5.80 HEMOGLOBIN (BEAKER) (test rpsa=495) 7.9 GM/DL 13.0-16.8 HEMATOCRIT (BEAKER) (test zkqr=049) 25.9 % 40.0-50.0 MEAN CORPUSCULAR VOLUME (BEAKER) (test msxu=370) 69.0 fL 82.0-98.0 MEAN CORPUSCULAR HEMOGLOBIN (BEAKER) (test 21.0 pg 27.0-33.0 omyt=195) MEAN CORPUSCULAR HEMOGLOBIN CONC (BEAKER) (test 30.4 GM/DL 32.0-36.0 pywp=199) RED CELL DISTRIBUTION WIDTH (BEAKER) (test 20.9 % 10.3-14.2 eoou=669) PLATELET COUNT (BEAKER) (test mwqf=004) 411 K/CU MM 150-430 MEAN PLATELET VOLUME (BEAKER) (test kohp=362) 6.9 fL 6.5-10.5 NUCLEATED RED BLOOD CELLS (BEAKER) (test 0 /100 WBC 0-0 noic=895) NEUTROPHILS RELATIVE PERCENT (BEAKER) (test 49 % gdwx=277) LYMPHOCYTES RELATIVE PERCENT (BEAKER) (test 35 % jyls=678) MONOCYTES RELATIVE PERCENT (BEAKER) (test 12 % xfoz=331) EOSINOPHILS RELATIVE PERCENT (BEAKER) (test 4 % giix=537) BASOPHILS RELATIVE PERCENT (BEAKER) (test 0 % snyp=686) NEUTROPHILS ABSOLUTE COUNT (BEAKER) (test 2.80 K/ L 1.80-8.00 mxrm=730) LYMPHOCYTES ABSOLUTE COUNT (BEAKER) (test 2.00 K/ L 1.48-4.50 ccoi=395) MONOCYTES ABSOLUTE COUNT (BEAKER) (test 0.70 K/ L 0.00-1.30 zgvo=151) EOSINOPHILS ABSOLUTE COUNT (BEAKER) (test 0.20 K/ L 0.00-0.50 uvmw=516) BASOPHILS ABSOLUTE COUNT (BEAKER) (test 0.00 K/ L 0.00-0.20 hfer=029) ERYTHROCYTE SED [id number] 22:37:00 Test Item Value Reference Range Comments [...] old=0-20 mm/hr Males 50-999 years old=0-25 mm/hr [id number] 22:06:00 Test Item Value Reference Range Comments [...] mL/min/1.73m\\S\\2 EGFR if Non- >60 Estimated Glomerular [place] Citizen (test mL/min/1.73m\\S\\2 Filtration Rate (eGFR) code=EGFRNA) Reference [...] chronic kidney failure. XR CHEST AP/PA 1 [id number] 22:01:15Procedure: AP View ChestOrder date: 2017 9:16 PMOrdering Provider: ILIANA BEACHClinical Indication: chest pain, Chest painComparison: January 29, 2018Findings:Stable right-sided Port-A- Cath.Cardiomediastinal silhouette is within normal limits.The lungs are clear. No large pleural effusions or pneumothorax. Osseousstructures are nonacute.No evidence of active tuberculosis.Impression:No acute cardiopulmonary process.This final report was electronically signed by Dr Cesar Beach MD 04/159:54 PMDictated By: CESAR BEACHDate: 04/15/2018 22:01D-DIMER [id number] 21:53:00 Test Item Value Reference Range Comments [...] probability of thromboembolic disease. CBC WITH AUTO [id number] 21:43:00 Test Item Value Reference Range Comments [...] 0.0-0.4 AUTO DIFFCBC W/PLT COUNT & AUTO [id number] 08:53:00 Test Item Value Reference Range Comments WHITE BLOOD CELL COUNT (BEAKER) (test lffm=494) 6.9 K/ L 4.0-10.0 RED BLOOD CELL COUNT (BEAKER) (test gxjz=914) 3.56 M/ L 4.20-5.80 HEMOGLOBIN (BEAKER) (test xivv=024) 8.5 GM/DL 13.0-16.8 HEMATOCRIT (BEAKER) (test nsrr=140) 26.5 % 40.0-50.0 MEAN CORPUSCULAR VOLUME (BEAKER) (test bqri=334) 74.5 fL 82.0-98.0 MEAN CORPUSCULAR HEMOGLOBIN (BEAKER) (test 23.8 pg 27.0-33.0 meig=282) MEAN CORPUSCULAR HEMOGLOBIN CONC (BEAKER) (test 31.9 GM/DL 32.0-36.0 khyj=288) RED CELL DISTRIBUTION WIDTH (BEAKER) (test 20.1 % 10.3-14.2 bwun=462) PLATELET COUNT (BEAKER) (test fbdq=159) 372 K/CU MM 150-430 MEAN PLATELET VOLUME (BEAKER) (test vpfs=145) 6.8 fL 6.5-10.5 NUCLEATED RED BLOOD CELLS (BEAKER) (test 0 /100 WBC 0-0 syyj=896) NEUTROPHILS RELATIVE PERCENT (BEAKER) (test 55 % hpod=077) LYMPHOCYTES RELATIVE PERCENT (BEAKER) (test 30 % rzkp=867) MONOCYTES RELATIVE PERCENT (BEAKER) (test 13 % skvi=935) EOSINOPHILS RELATIVE PERCENT (BEAKER) (test 2 % odee=976) BASOPHILS RELATIVE PERCENT (BEAKER) (test 0 % oazv=725) NEUTROPHILS ABSOLUTE COUNT (BEAKER) (test 3.80 K/ L 1.80-8.00 dowr=312) LYMPHOCYTES ABSOLUTE COUNT (BEAKER) (test 2.10 K/ L 1.48-4.50 oppd=385) MONOCYTES ABSOLUTE COUNT (BEAKER) (test 0.90 K/ L 0.00-1.30 jeed=656) EOSINOPHILS ABSOLUTE COUNT (BEAKER) (test 0.10 K/ L 0.00-0.50 tlma=968) BASOPHILS ABSOLUTE COUNT (BEAKER) (test 0.00 K/ L 0.00-0.20 syyv=938) (MANUAL DIFFERENTIAL)2018-02-01 08:53:00 Test Item Value Reference Range Comments TOTAL COUNTED (BEAKER) (test xrzt=0269) WBC MORPHOLOGY (BEAKER) (test vfep=354) Normal PLT MORPHOLOGY (BEAKER) (test vscp=286) Normal ANISOCYTOSIS (BEAKER) (test liic=271) 2+ moderate HYPOCHROMIA (BEAKER) (test jfna=734) 3+ many MICROCYTES (BEAKER) (test iuwg=911) 1+ few TROPONIN [id number] 07:05:00 Test Item Value Reference Range Comments TROPONIN I (BEAKER) (test wkha=838) < ng/mL 0.00-0.15 Troponin I (TnI) levels [...] acute neurological disease, and persistent tachyarrhythmia.BASIC METABOLIC [id number] 06:55:00 Test Item Value Reference Range Comments SODIUM (BEAKER) (test 140 meq/L 135-148 eukx=638) POTASSIUM (BEAKER) (test 3.8 meq/L 3.6-5.5 mjty=619) CHLORIDE (BEAKER) (test 107 meq/L 98-106 bbxg=952) CO2 (BEAKER) (test 25 meq/L 20-29 whlw=680) BLOOD UREA NITROGEN 11 mg/dL 10-26 (BEAKER) (test ugvp=424) CREATININE (BEAKER) (test 0.80 mg/dL 0.50-1.20 xqrd=641) GLUCOSE RANDOM (BEAKER) 91 mg/dL 70-110 (test liyj=820) CALCIUM (BEAKER) (test 8.6 mg/dL 8.5-10.5 kvlq=836) EGFR (BEAKER) (test 104 mL/min/1.73 sq m ESTIMATED GFR IS NOT xjwh=9313) ACCURATE CREATININE CLEARANCE IN PREDICTING GLOMERULAR FILTRATION RATE. ESTIMATED GFR IS NOT APPLICABLE FOR DIALYSIS PATIENTS. [id number] 06:49:00 Test Item Value Reference Range Comments MAGNESIUM (BEAKER) (test ivae=982) 2.4 mg/dL 1.5-3.0 TROPONIN [id number] 00:03:00 Test Item Value Reference Range Comments TROPONIN I (BEAKER) (test ytfj=431) < ng/mL 0.00-0.15 Troponin I (TnI) levels [...] Range Comments B-TYPE NATRIURETIC PEPTIDE (BEAKER) (test lkwv=010) 5 pg/mL 0-100 LIPID [id number] 23:57:00 Test Item Value Reference Range Comments TRIGLYCERIDES (BEAKER) (test lkaf=826) 53 mg/dL CHOLESTEROL (BEAKER) (test cxry=495) 183 mg/dL HDL CHOLESTEROL (BEAKER) (test ilqt=434) 62 mg/dL LDL CHOLESTEROL CALCULATED (BEAKER) (test 110 mg/dL mssw=196) Triglyceride Reference Range: Low Risk <150 Borderline 150- 199 High Risk 200-499 Very High Risk >=500Cholesterol Reference Range: Low Risk <200 Borderline 200-239 High Risk > 240HDL Cholesterol Reference Range: Low Risk >=60 High Risk <40LDL Cholesterol Reference Range: Optimal <100 Near Optimal 100-129 Borderline 130-159 High 160-189 Very High >=190ED2 CT ANGIO CHEST W [id number] 11:04:2220 g Cathlon Above the Antecubital or higher requiredProcedure: ED2 CT ANGIO CHEST W CONTRASTOrder date: 01/29/2018 9:32 AMOrdering Provider: ITALIA RITTERMONSClinical [...] AMDictated By: CESAR BEACHDate: 01/29/2018 11:04ED2 TROPONIN-I [id number] 10:56:00 Test Item Value Reference Range Comments Troponin-I (test 0.000 ng/ml 0.000-0.034 The 99th Percentile URL is 0.034 code=TROP) ng/mL. The Joint Society of Cardiology/[place] Citizen College of Cardiology (ESC/ACC) and the National [...] 24 hours after the clinical event. ED2 [id number] 10:51:00 Test Item Value Reference Range Comments [...] Protein (test code=TP) 6.9 gm/dl 6.4-8.1 ED2 [id number] 10:51:00 Test Item Value Reference Range Comments Pro-BNP(B-Peptide) (test <15 0-125 THE METHODOLOGY FOR DETECTION OF code=PROBNP) B-NATRIURETIC PEPTIDE HAS BEEN CHANGED TO "NT pro-BNP". THE NORMAL RANGES HAVE CHANGED. PLEASE NOTE THAT RANGES ARE DEFINED BY THE AGE OF THE PATIENT. (<75 years old=0-125 pg/ml 75years and older=0-450pg/ml). VALUES ARE NOT INTERCHANGEABLE BETWEEN METHODS. 10-18-2006 ED2 [id number] 10:50:00 Test Item Value Reference Range Comments [...] fL 8.0-11.0 ED2 XR CHEST 2 PA [id number] 09:49:15Procedure: ED2 XR CHEST 2 PA LATERALOrder date: 01/29/2018 9:18 AMOrdering Provider: ITALIA ENGSClinical Indication: CHEST PAIN: Pain-ChestComparison: November 14, 2017Findings:Stable dqvjf-qdavsBglt-P-Cath.Cardiomediastinal silhouette is within normal limits.The lungs are clear.No pleural effusion or pneumothorax. Osseous structures are nonacute.No evidence of active tuberculosis.Impression:Stable and nonacute two- view chest.This final report was electronically signed by Dr Cesar Beach MD 9:43 AMDictated By: CESAR BEACHDate: 01/29/2018 09:49CT, CHEST WITH IV CONTRAST- PE TEST [id number] 20:29:00FINAL REPORT HISTORY: chest pain COMPARISON : [...] MDReport Verified Date/Time: 01/24/2018 20:29:12 Reading Location: [facility] [id number] Consult Reading Room 08: 29 PMBASI METABOLIC [id number] 17:45:00 Test Item Value Reference Range Comments SODIUM (BEAKER) (test 138 meq/L 135-148 krlz=283) POTASSIUM (BEAKER) (test 3.7 meq/L 3.6-5.5 krht=110) CHLORIDE (BEAKER) (test 104 meq/L 98-106 fshp=560) CO2 (BEAKER) (test 24 meq/L 20-29 tasc=301) BLOOD UREA NITROGEN 18 mg/dL 10-26 (BEAKER) (test bnav=136) CREATININE (BEAKER) (test 0.90 mg/dL 0.50-1.20 cnpz=158) GLUCOSE RANDOM (BEAKER) 119 mg/dL 70-110 (test qboy=019) CALCIUM (BEAKER) (test 8.5 mg/dL 8.5-10.5 czks=564) EGFR (BEAKER) (test 90 mL/min/1.73 sq m ESTIMATED GFR IS NOT fdmi=3204) ACCURATE CREATININE CLEARANCE IN PREDICTING GLOMERULAR FILTRATION RATE. ESTIMATED GFR IS NOT APPLICABLE FOR DIALYSIS PATIENTS. TROPONIN [id number] 13:54:00 Test Item Value Reference Range Comments TROPONIN I (BEAKER) (test vozo=239) < ng/mL 0.00-0.15 Troponin I (TnI) levels [...] and persistent tachyarrhythmia.CREATINE KINASE (CK), TOTAL AND [id number] 13:53:00 Test Item Value Reference Range Comments CREATINE KINASE TOTAL (BEAKER) (test ftvl=134) 53 U/L 40-250 CREATINE KINASE-MB (BEAKER) (test uzbz=916) 0.7 ng/mL 0.0-4.9 CREATINE KINASE-MB INDEX (BEALCIDES) (test dnbl=355) 1.3 % CK-MB Reference Range:<5 Normal5-10 Borderline>10 [...] CHEST WITH CONTRAST, PE PROTOCOL: Location code: [id number] HISTORY: [id number]: Chest pain, shortness of breathCOMPARISON: 10/14/16, 03/03/16, [...] 1.2 ng/mL <=4.2 COMPREHENSIVE METABOLIC KANG *GP* [id number] 14:23:00 Test Item Value Reference Range Comments [...] VIEW*GP*2017-12-16 14:20:51Portable AP chest, 1 viewLocation Code: [id number] HISTORY: [id number]: Chest painCOMPARISON: 12/22/16COMMENT: The lungs are clear and well inflated. The costophrenic angles are sharp. Thecardiomediastinal silhouette is unremarkable. The bones are intact. Right qghkxWyyn-X-Qycg tip overlies the superiorvena cava, unchanged.IMPRESSION: Stable [...] (test code=GMID%) 5.8 % 0.0-10.0 ED2 TROPONIN-I [id number] 14:21:00 Test Item Value Reference Range Comments Troponin-I (test 0.000 ng/ml 0.000-0.034 The 99th Percentile URL is 0.034 code=TROP) ng/mL. The Joint Society of Cardiology/[place] Citizen College of [employer] (ESC/ACC) and the National [...] clinical event. ED2 XR CHEST 2 PA [id number] 12:47:27Procedures: ED2 XR CHEST 2 PA LATERALExam Date: 11/14/2017 11:00 AMOrdering Physician: JULIET DORMANClinical Indication: cp/sobComparison: Chest radiograph 9/13/14Findings:Technique: Frontal and lateral radiographs of the chest.Medical [...] FRYEDate: 11/14/2017 12:47ED2 CT ANGIO CHEST W [id number] 12:46:17Procedures: ED2 CT ANGIO CHEST W CONTRASTExam [...] PMDictated By: CATHLEEN FRYEDate: 11/14/2017 12:46ED2 TROPONIN-I [id number] 11:38:00 Test Item Value Reference Range Comments Troponin-I (test 0.000 ng/ml 0.000-0.034 The 99th Percentile URL is 0.034 code=TROP) ng/mL. The Joint Society of Cardiology/[place] Citizen [employer] (ESC/ACC) and the National [...] 24 hours after the clinical event. ED2 [id number] 11:38:00 Test Item Value Reference Range Comments Pro-BNP(B-Peptide) (test <15 0-125 THE METHODOLOGY FOR DETECTION OF code=PROBNP) B-NATRIURETIC PEPTIDE HAS BEEN CHANGED TO "NT pro-BNP". THE NORMAL RANGES HAVE CHANGED. PLEASE NOTE THAT RANGES ARE DEFINED BY THE AGE OF THE PATIENT. (<75 years old=0-125 pg/ml 75years and older=0-450pg/ml). VALUES ARE NOT INTERCHANGEABLE BETWEEN METHODS. 10-18-2006 ED2 [id number] 11:31:00 Test Item Value Reference Range Comments Sodium (test code=NA) 142 mmol/l 128-145 Potassium (test code=K) 3.5 mmol/l 3.6-5.1 CO2 (test code=CO2) 24 mmol/l 18-33 Chloride (test code=CL) 105 mmol/l 98-108 Glucose (test code=GLU) 196 mg/dl 73-118 Calcium (test code=CALC) 8.3 mg/dl 8.0-10.3 BUN (test code=BUN) 10 mg/dl 7-22 Creatinine (test code=CREA) 0.9 mg/dl 0.6-1.2 ED2 [id number] 11:21:00 Test Item Value Reference Range Comments [...] MPV (test code=MPV) 7.3 fL 8.0-11.0 TROPONIN [id number] 07:00:00 Test Item Value Reference Range Comments TROPONIN I (BEAKER) (test hvoe=594) < ng/mL 0.00-0.15 Troponin I (TnI) levels [...] acidosis, acute neurological disease, and persistent tachyarrhythmia.TROPONIN [id number] 00:40:00 Test Item Value Reference Range Comments TROPONIN I (BEAKER) (test vrlr=723) < ng/mL 0.00-0.15 Troponin I (TnI) levels [...] acidosis, acute neurological disease, and persistent tachyarrhythmia.HEMOGLOBIN [id number] 19:40:00 Test Item Value Reference Range Comments HEMOGLOBIN A1C (BEAKER) (test aatc=569) 5.3 % 4.3-6.1 TROPONIN [id number] 18:43:00 Test Item Value Reference Range Comments TROPONIN I (BEAKER) (test spwr=146) < ng/mL 0.00-0.15 Troponin I (TnI) levels [...] acute neurological disease, and persistent tachyarrhythmia.BASIC METABOLIC [id number] 18:24:00 Test Item Value Reference Range Comments SODIUM (BEAKER) (test 139 meq/L 135-148 jneb=130) POTASSIUM (BEAKER) (test 3.5 meq/L 3.6-5.5 klpo=251) CHLORIDE (BEAKER) (test 105 meq/L 98-106 qydi=120) CO2 (BEAKER) (test 26 meq/L 20-29 hrid=662) BLOOD UREA NITROGEN 15 mg/dL 10-26 (BEAKER) (test plsu=382) CREATININE (BEAKER) (test 1.00 mg/dL 0.50-1.20 cvjt=715) GLUCOSE RANDOM (BEAKER) 94 mg/dL 70-110 (test lqln=335) CALCIUM (BEAKER) (test 8.6 mg/dL 8.5-10.5 sqkr=410) EGFR (BEAKER) (test 80 mL/min/1.73 sq m ESTIMATED GFR IS NOT kmlz=1596) ACCURATE CREATININE CLEARANCE IN PREDICTING GLOMERULAR FILTRATION RATE. ESTIMATED GFR IS NOT APPLICABLE FOR DIALYSIS PATIENTS. CBC W/PLT COUNT & AUTO [id number] 18:01:00 Test Item Value Reference Range Comments WHITE BLOOD CELL COUNT (BEAKER) (test pkcj=383) 8.5 K/ L 4.0-10.0 RED BLOOD CELL COUNT (BEAKER) (test lazp=181) 3.95 M/ L 4.20-5.80 HEMOGLOBIN (BEAKER) (test ygmg=221) 11.4 GM/DL 13.0-16.8 HEMATOCRIT (BEAKER) (test wvyt=362) 34.6 % 40.0-50.0 MEAN CORPUSCULAR VOLUME (BEAKER) (test ecla=545) 87.4 fL 82.0-98.0 MEAN CORPUSCULAR HEMOGLOBIN (BEAKER) (test 28.9 pg 27.0-33.0 nxjf=262) MEAN CORPUSCULAR HEMOGLOBIN CONC (BEAKER) (test 33.0 GM/DL 32.0-36.0 cbgf=257) RED CELL DISTRIBUTION WIDTH (BEAKER) (test 15.7 % 10.3-14.2 tdle=796) PLATELET COUNT (BEAKER) (test knry=952) 368 K/CU MM 150-430 MEAN PLATELET VOLUME (BEAKER) (test nyrs=820) 7.1 fL 6.5-10.5 NUCLEATED RED BLOOD CELLS (BEAKER) (test 0 /100 WBC 0-0 ulnu=508) NEUTROPHILS RELATIVE PERCENT (BEAKER) (test 50 % hrig=492) LYMPHOCYTES RELATIVE PERCENT (BEAKER) (test 32 % lfyk=044) MONOCYTES RELATIVE PERCENT (BEAKER) (test 15 % qqea=183) EOSINOPHILS RELATIVE PERCENT (BEAKER) (test 2 % cpao=740) BASOPHILS RELATIVE PERCENT (BEAKER) (test 0 % hwxw=508) NEUTROPHILS ABSOLUTE COUNT (BEAKER) (test 4.30 K/ L 1.80-8.00 ecem=996) LYMPHOCYTES ABSOLUTE COUNT (BEAKER) (test 2.70 K/ L 1.48-4.50 jdyl=746) MONOCYTES ABSOLUTE COUNT (BEAKER) (test 1.30 K/ L 0.00-1.30 kcml=261) EOSINOPHILS ABSOLUTE COUNT (BEAKER) (test 0.20 K/ L 0.00-0.50 llxm=501) BASOPHILS ABSOLUTE COUNT (BEAKER) (test 0.00 K/ L 0.00-0.20 tpwd=818) CREATINE KINASE (CK), TOTAL AND [id number] 12:25:00 Test Item Value Reference Range Comments CREATINE KINASE TOTAL (BEAKER) (test xock=595) 72 U/L 40-250 CREATINE KINASE-MB (BEAKER) (test nllr=438) 0.9 ng/mL 0.0-4.9 CREATINE KINASE-MB INDEX (BEAKER) (test dzrf=474) 1.3 % CK-MB Reference Range:<5 Normal5-10 Borderline>10 AbnormalTROPONIN [id number] 12:25:00 Test Item Value Reference Range Comments TROPONIN I (BEAKER) (test kdyr=357) < ng/mL 0.00-0.15 Troponin I (TnI) levels [...] Comments NEUTROPHILS - REL (DIFF) (BEAKER) (test imrq=1958) 38 % LYMPHOCYTES - REL (DIFF) (BEAKER) (test hgkc=0917) 46 % MONOCYTES - REL (DIFF) (BEAKER) (test tsgg=7505) 11 % EOSINOPHILS - REL (DIFF) (BEAKER) (test rjjg=0472) 5 % NEUTROPHILS - ABS (DIFF) (BEAKER) (test zzwl=8676) 2.13 K/ L 1.80-8.00 LYMPHOCYTES - ABS (DIFF) (BEAKER) (test rqoc=5630) 2.58 K/ L 1.48-4.50 MONOCYTES - ABS (DIFF) (BEAKER) (test qmrt=6311) 0.62 K/ L 0.00-1.30 EOSINOPHILS - ABS (DIFF) (BEAKER) (test pttn=3100) 0.28 K/ L 0.00-0.50 TOTAL COUNTED (BEAKER) (test genz=1386) 100 WBC MORPHOLOGY (BEAKER) (test eryl=672) Normal PLT MORPHOLOGY (BEAKER) (test hzri=592) Normal RBC MORPHOLOGY (BEAKER) (test ssqa=839) Normal CBC W/PLT COUNT & AUTO [id number] 06:02:00 Test Item Value Reference Range Comments WHITE BLOOD CELL COUNT (BEAKER) (test vphn=982) 5.6 K/ L 4.0-10.0 RED BLOOD CELL COUNT (BEAKER) (test oouk=160) 3.60 M/ L 4.20-5.80 HEMOGLOBIN (BEAKER) (test kzmt=400) 10.6 GM/DL 13.0-16.8 HEMATOCRIT (BEAKER) (test tjrp=353) 32.3 % 40.0-50.0 MEAN CORPUSCULAR VOLUME (BEAKER) (test owrl=210) 89.8 fL 82.0-98.0 MEAN CORPUSCULAR HEMOGLOBIN (BEAKER) (test 29.3 pg 27.0-33.0 bovo=681) MEAN CORPUSCULAR HEMOGLOBIN CONC (BEAKER) (test 32.7 GM/DL 32.0-36.0 gwiq=515) RED CELL DISTRIBUTION WIDTH (BEAKER) (test 15.9 % 10.3-14.2 ymlw=461) PLATELET COUNT (BEAKER) (test ddzm=588) 312 K/CU MM 150-430 MEAN PLATELET VOLUME (BEAKER) (test mbtv=089) 6.9 fL 6.5-10.5 NUCLEATED RED BLOOD CELLS (BEAKER) (test 0 /100 WBC 0-0 jbip=946) TROPONIN [id number] 05:22:00 Test Item Value Reference Range Comments TROPONIN I (BEAKER) (test dyft=681) < ng/mL 0.00-0.15 Troponin I (TnI) levels [...] and persistent tachyarrhythmia.CREATINE KINASE (CK), TOTAL AND [id number] 05:21:00 Test Item Value Reference Range Comments CREATINE KINASE TOTAL (BEAKER) (test ldyi=778) 71 U/L 40-250 CREATINE KINASE-MB (BEAKER) (test nxdf=982) 0.8 ng/mL 0.0-4.9 CREATINE KINASE-MB INDEX (BEAKER) (test pltp=400) 1.1 % CK-MB Reference Range:<5 Normal5-10 Borderline>10 AbnormalCOMPREHENSIVE METABOLIC [id number] 05:14:00 Test Item Value Reference Range Comments TOTAL PROTEIN (BEAKER) 6.4 gm/dL 6.0-8.5 (test mquc=218) ALBUMIN (BEAKER) (test 3.7 g/dL 3.5-5.0 dcdk=6430) ALKALINE PHOSPHATASE 67 U/L 30-115 (BEAKER) (test rqqo=925) BILIRUBIN TOTAL (BEAKER) 0.3 mg/dL 0.1-1.2 (test kkqn=655) SODIUM (BEAKER) (test 141 meq/L 135-148 jftt=969) POTASSIUM (BEAKER) (test 3.7 meq/L 3.6-5.5 qxoo=551) CHLORIDE (BEAKER) (test 106 meq/L 98-106 tksw=340) CO2 (BEAKER) (test 26 meq/L 20-29 lupl=753) BLOOD UREA NITROGEN 19 mg/dL 10-26 (BEAKER) (test hocg=296) CREATININE (BEAKER) (test 1.00 mg/dL 0.50-1.20 jylk=843) GLUCOSE RANDOM (BEAKER) 104 mg/dL 70-110 (test trda=597) CALCIUM (BEAKER) (test 9.0 mg/dL 8.5-10.5 efcn=288) AST (SGOT) (BEAKER) (test 14 U/L 5-40 zxqr=043) ALT (SGPT) (BEAKER) (test 10 U/L 5-50 ciec=262) EGFR (BEAKER) (test 80 mL/min/1.73 sq m ESTIMATED GFR IS NOT rbfe=6995) ACCURATE CREATININE CLEARANCE IN PREDICTING GLOMERULAR FILTRATION RATE. ESTIMATED GFR IS NOT APPLICABLE FOR DIALYSIS PATIENTS. LIPID [id number] 05:13:00 Test Item Value Reference Range Comments TRIGLYCERIDES (BEAKER) (test vdmj=339) 159 mg/dL CHOLESTEROL (BEAKER) (test gfkp=420) 205 mg/dL HDL CHOLESTEROL (BEAKER) (test jjii=670) 62 mg/dL LDL CHOLESTEROL CALCULATED (BEAKER) (test 111 mg/dL offr=502) Triglyceride Reference Range: Low Risk <150 Borderline 150- 199 High Risk 200-499 Very High Risk >=500Cholesterol Reference Range: Low Risk <200 Borderline 200-239 High Risk > 240HDL Cholesterol Reference Range: Low Risk >=60 High Risk <40LDL Cholesterol Reference Range: Optimal <100 Near Optimal 100-129 Borderline 130-159 High 160-189 Very High >=190CREATINE KINASE (CK), TOTAL AND [id number] 23:03:00 Test Item Value Reference Range Comments CREATINE KINASE TOTAL (BEAKER) (test wklh=494) 77 U/L 40-250 CREATINE KINASE-MB (BEAKER) (test udfp=878) 0.9 ng/mL 0.0-4.9 CREATINE KINASE-MB INDEX (BEAKER) (test heye=975) 1.2 % CK-MB Reference Range:<5 Normal5-10 Borderline>10 AbnormalTROPONIN [id number] 23:03:00 Test Item Value Reference Range Comments TROPONIN I (BEAKER) (test szii=485) < ng/mL 0.00-0.15 Troponin I (TnI) levels [...] 1 VIEW PORTABLE 2017-02-21 04:12:23CHEST AP viewLOCATION: [id number] INDICATION: Chest pain COMPARISON: March 14, 2017FINDINGS: [...] Code is ANTI-XA CBC WITH MANUAL DIFF 2017-02-21 03:39:00 Test Item Value Reference Range Comments [...] mg/dL 1.8-2.4 CREATINE KINASE (CK), TOTAL AND [id number] 08:12:00 Test Item Value Reference Range Comments CREATINE KINASE TOTAL (BEAKER) (test hyaf=007) 91 U/L 40-250 CREATINE KINASE-MB (BEAKER) (test xltw=908) 1.0 ng/mL 0.0-4.9 CREATINE KINASE-MB INDEX (BEAKER) (test euuz=008) 1.1 % CK-MB Reference Range:<5 Normal5-10 Borderline>10 AbnormalTROPONIN [id number] 08:12:00 Test Item Value Reference Range Comments TROPONIN I (BEAKER) (test rlso=927) < ng/mL 0.00-0.15 Troponin I (TnI) levels [...] and persistent tachyarrhythmia.CBC W/PLT COUNT & AUTO [id number] 07:57:00 Test Item Value Reference Range Comments WHITE BLOOD CELL COUNT (BEAKER) (test uhki=250) 7.7 K/ L 4.0-10.0 RED BLOOD CELL COUNT (BEAKER) (test nczh=194) 3.82 M/ L 4.20-5.80 HEMOGLOBIN (BEAKER) (test ftvx=998) 9.3 GM/DL 13.0-16.8 HEMATOCRIT (BEAKER) (test bqok=001) 29.3 % 40.0-50.0 MEAN CORPUSCULAR VOLUME (BEAKER) (test tcbl=255) 76.6 fL 82.0-98.0 MEAN CORPUSCULAR HEMOGLOBIN (BEAKER) (test 24.3 pg 27.0-33.0 rild=747) MEAN CORPUSCULAR HEMOGLOBIN CONC (BEAKER) (test 31.8 GM/DL 32.0-36.0 skwk=928) RED CELL DISTRIBUTION WIDTH (BEAKER) (test 22.1 % 10.3-14.2 dpet=583) PLATELET COUNT (BEAKER) (test vjgl=282) 341 K/CU MM 150-430 MEAN PLATELET VOLUME (BEAKER) (test ectr=726) 7.2 fL 6.5-10.5 NUCLEATED RED BLOOD CELLS (BEAKER) (test 0 /100 WBC 0-0 aack=567) NEUTROPHILS RELATIVE PERCENT (BEAKER) (test 50 % frqs=722) LYMPHOCYTES RELATIVE PERCENT (BEAKER) (test 34 % ykmm=274) MONOCYTES RELATIVE PERCENT (BEAKER) (test 14 % jbfm=718) EOSINOPHILS RELATIVE PERCENT (BEAKER) (test 1 % eepy=285) BASOPHILS RELATIVE PERCENT (BEAKER) (test 0 % vbjj=966) NEUTROPHILS ABSOLUTE COUNT (BEAKER) (test 3.90 K/ L 1.80-8.00 mhre=975) LYMPHOCYTES ABSOLUTE COUNT (BEAKER) (test 2.60 K/ L 1.48-4.50 gwyd=109) MONOCYTES ABSOLUTE COUNT (BEAKER) (test 1.10 K/ L 0.00-1.30 fvsb=235) EOSINOPHILS ABSOLUTE COUNT (BEAKER) (test 0.10 K/ L 0.00-0.50 ualp=859) BASOPHILS ABSOLUTE COUNT (BEAKER) (test 0.00 K/ L 0.00-0.20 scwa=351) (MANUAL DIFFERENTIAL)2017-02-09 07:57:00 Test Item Value Reference Range Comments TOTAL COUNTED (BEAKER) (test imtx=8158) WBC MORPHOLOGY (BEAKER) (test olgs=287) Normal PLT MORPHOLOGY (BEAKER) (test fqtq=528) Normal ANISOCYTOSIS (BEAKER) (test wjjn=519) 1+ few HYPOCHROMIA (BEAKER) (test vwfr=035) 2+ moderate CREATINE KINASE (CK), TOTAL AND [id number] 06:53:00 Test Item Value Reference Range Comments CREATINE KINASE TOTAL (BEAKER) (test wzdy=764) 116 U/L 40-250 CREATINE KINASE-MB (BEAKER) (test jczd=282) 1.1 ng/mL 0.0-4.9 CREATINE KINASE-MB INDEX (BEAKER) (test rjxv=203) 0.9 % CK-MB Reference Range:<5 Normal5-10 Borderline>10 AbnormalTROPONIN [id number] 06:53:00 Test Item Value Reference Range Comments TROPONIN I (BEAKER) (test peww=853) < ng/mL 0.00-0.15 Troponin I (TnI) levels [...] acute neurological disease, and persistent tachyarrhythmia.BASIC METABOLIC [id number] 06:45:00 Test Item Value Reference Range Comments SODIUM (BEAKER) (test 143 meq/L 135-148 khbp=929) POTASSIUM (BEAKER) (test 3.8 meq/L 3.6-5.5 gssv=340) CHLORIDE (BEAKER) (test 107 meq/L 98-106 euon=152) CO2 (BEAKER) (test 26 meq/L 20-29 xnln=399) BLOOD UREA NITROGEN 15 mg/dL 10-26 (BEAKER) (test zeuu=291) CREATININE (BEAKER) (test 1.00 mg/dL 0.50-1.20 akhu=420) GLUCOSE RANDOM (BEAKER) 106 mg/dL 70-110 (test ucjn=501) CALCIUM (BEAKER) (test 8.8 mg/dL 8.5-10.5 nvxv=560) EGFR (BEAKER) (test 80 mL/min/1.73 sq m ESTIMATED GFR IS NOT boff=1449) ACCURATE CREATININE CLEARANCE IN PREDICTING GLOMERULAR FILTRATION RATE. ESTIMATED GFR IS NOT APPLICABLE FOR DIALYSIS PATIENTS. TROPONIN [id number] 22:50:00 Test Item Value Reference Range Comments TROPONIN I (BEAKER) (test yfra=269) < ng/mL 0.00-0.15 Troponin I (TnI) levels [...] and persistent tachyarrhythmia.CREATINE KINASE (CK), TOTAL AND [id number] 22:45:00 Test Item Value Reference Range Comments CREATINE KINASE TOTAL (BEAKER) (test ycnw=549) 100 U/L 40-250 CREATINE KINASE-MB (BEAKER) (test kgaf=668) 1.0 ng/mL 0.0-4.9 CREATINE KINASE-MB INDEX (BEAKER) (test amvq=201) 1.0 % CK-MB Reference Range:<5 Normal5-10 Borderline>10 AbnormalPROTHROMBIN TIME/[id number] 22:35:00 Test Item Value Reference Range Comments PROTIME (BEAKER) (test dsvr=467) 10.4 seconds 9.3-12.0 INR (BEAKER) (test jsmw=995) 1.0 <=5.9 RECOMMENDED COUMADIN/WARFARIN INR THERAPY RANGESSTANDARD DOSE: 2.0 - 3.0 Includes: PROPHYLAXIS forvenous thrombosis, systemic embolization; TREATMENT for venous thrombosis and/or pulmonary embolus.HIGH RISK: Target INR is 2.5-3.5 for patients with mechanical heart valves.[id number] 22:35:00 Test Item Value Reference Range Comments PARTIAL THROMBOPLASTIN TIME (BEAKER) (test 23.1 seconds 23.0-35.0 bsuk=765) TROPONIN [id number] 15:08:00 Test Item Value Reference Range Comments TROPONIN I (BEAKER) (test fsed=265) < ng/mL 0.00-0.15 Troponin I (TnI) levels [...] and persistent tachyarrhythmia.CREATINE KINASE (CK), TOTAL AND [id number] 15:07:00 Test Item Value Reference Range Comments CREATINE KINASE TOTAL (BEAKER) (test doxs=450) 355 U/L 40-250 CREATINE KINASE-MB (BEAKER) (test vdjd=833) 2.2 ng/mL 0.0-4.9 CREATINE KINASE-MB INDEX (BEAKER) (test tzbz=106) 0.6 % CK-MB Reference Range:<5 Normal5-10 Borderline>10 AbnormalCBC W/PLT COUNT & AUTO [id number] 06:58:00 Test Item Value Reference Range Comments WHITE BLOOD CELL COUNT (BEAKER) (test xkxs=709) 6.8 K/ L 4.0-10.0 RED BLOOD CELL COUNT (BEAKER) (test wyxt=795) 3.57 M/ L 4.20-5.80 HEMOGLOBIN (BEAKER) (test esgq=534) 8.6 GM/DL 13.0-16.8 HEMATOCRIT (BEAKER) (test tbmg=652) 28.0 % 40.0-50.0 MEAN CORPUSCULAR VOLUME (BEAKER) (test ttmd=303) 78.5 fL 82.0-98.0 MEAN CORPUSCULAR HEMOGLOBIN (BEAKER) (test 24.2 pg 27.0-33.0 dyqp=409) MEAN CORPUSCULAR HEMOGLOBIN CONC (BEAKER) (test 30.9 GM/DL 32.0-36.0 upty=327) RED CELL DISTRIBUTION WIDTH (BEAKER) (test 22.6 % 10.3-14.2 pxct=814) PLATELET COUNT (BEAKER) (test zdrr=520) 297 K/CU MM 150-430 MEAN PLATELET VOLUME (BEAKER) (test xqwy=062) 7.2 fL 6.5-10.5 NUCLEATED RED BLOOD CELLS (BEAKER) (test 0 /100 WBC 0-0 hftj=111) NEUTROPHILS RELATIVE PERCENT (BEAKER) (test 46 % ljri=553) LYMPHOCYTES RELATIVE PERCENT (BEAKER) (test 38 % ctep=167) MONOCYTES RELATIVE PERCENT (BEAKER) (test 14 % hzgs=215) EOSINOPHILS RELATIVE PERCENT (BEAKER) (test 2 % neno=899) BASOPHILS RELATIVE PERCENT (BEAKER) (test 0 % rsld=678) NEUTROPHILS ABSOLUTE COUNT (BEAKER) (test 3.10 K/ L 1.80-8.00 fise=179) LYMPHOCYTES ABSOLUTE COUNT (BEAKER) (test 2.60 K/ L 1.48-4.50 xoev=440) MONOCYTES ABSOLUTE COUNT (BEAKER) (test 0.90 K/ L 0.00-1.30 rimh=627) EOSINOPHILS ABSOLUTE COUNT (BEAKER) (test 0.20 K/ L 0.00-0.50 udal=322) BASOPHILS ABSOLUTE COUNT (BEAKER) (test 0.00 K/ L 0.00-0.20 swxt=900) (MANUAL DIFFERENTIAL)2017-01-24 06:58:00 Test Item Value Reference Range Comments TOTAL COUNTED (BEAKER) (test fnbe=5856) WBC MORPHOLOGY (BEAKER) (test wrth=314) Normal PLT MORPHOLOGY (BEAKER) (test tcdg=603) Normal ANISOCYTOSIS (BEAKER) (test vcmv=489) 2+ moderate HYPOCHROMIA (BEAKER) (test pwbz=892) 2+ moderate MICROCYTES (BEAKER) (test fvfq=097) 1+ few TROPONIN [id number] 06:05:00 Test Item Value Reference Range Comments TROPONIN I (BEAKER) (test fakw=101) < ng/mL 0.00-0.15 Troponin I (TnI) levels [...] and persistent tachyarrhythmia.CREATINE KINASE (CK), TOTAL AND [id number] 06:04:00 Test Item Value Reference Range Comments CREATINE KINASE TOTAL (BEAKER) (test qfas=582) 298 U/L 40-250 CREATINE KINASE-MB (BEAKER) (test rinn=603) 2.1 ng/mL 0.0-4.9 CREATINE KINASE-MB INDEX (BEAKER) (test zxan=787) 0.7 % CK-MB Reference Range:<5 Normal5-10 Borderline>10 AbnormalCOMPREHENSIVE METABOLIC [id number] 06:00:00 Test Item Value Reference Range Comments TOTAL PROTEIN (BEAKER) 6.5 gm/dL 6.0-8.5 (test zkpz=746) ALBUMIN (BEAKER) (test 4.0 g/dL 3.5-5.0 whtj=9361) ALKALINE PHOSPHATASE 76 U/L 30-115 (BEAKER) (test ewji=230) BILIRUBIN TOTAL (BEAKER) 0.5 mg/dL 0.1-1.2 (test edxg=377) SODIUM (BEAKER) (test 142 meq/L 135-148 hdwb=011) POTASSIUM (BEAKER) (test 3.5 meq/L 3.6-5.5 ptdf=670) CHLORIDE (BEAKER) (test 106 meq/L 98-106 gzhd=488) CO2 (BEAKER) (test 26 meq/L 20-29 yeic=874) BLOOD UREA NITROGEN 14 mg/dL 10-26 (BEAKER) (test ofve=616) CREATININE (BEAKER) (test 0.90 mg/dL 0.50-1.20 bmsy=496) GLUCOSE RANDOM (BEAKER) 79 mg/dL 70-110 (test ozhk=083) CALCIUM (BEAKER) (test 8.8 mg/dL 8.5-10.5 favi=271) AST (SGOT) (BEAKER) (test 16 U/L 5-40 bdxd=306) ALT (SGPT) (BEAKER) (test 10 U/L 5-50 lsqf=672) EGFR (BEAKER) (test 91 mL/min/1.73 sq m ESTIMATED GFR IS NOT gfco=5942) ACCURATE CREATININE CLEARANCE IN PREDICTING GLOMERULAR FILTRATION RATE. ESTIMATED GFR IS NOT APPLICABLE FOR DIALYSIS PATIENTS. CREATINE KINASE (CK), TOTAL AND [id number] 04:57:00 Test Item Value Reference Range Comments CREATINE KINASE TOTAL (BEAKER) (test mgdg=045) 653 U/L 30-300 CREATINE KINASE-MB (BEAKER) (test eclb=680) 0.8 ng/mL 0.0-4.9 CREATINE KINASE-MB INDEX (BEAKER) (test vxdi=689) 0.1 % CK-MB Reference Range:<5 Normal5-10 Borderline>10 AbnormalTROPONIN [id number] 04:56:00 Test Item Value Reference Range Comments TROPONIN I (BEAKER) (test vrzl=979) 0.03 ng/mL 0.00-0.15 Troponin I (TnI) levels [...] acidosis, acute neurological disease, and persistent tachyarrhythmia.LIPID [id number] 04:47:00 Test Item Value Reference Range Comments TRIGLYCERIDES (BEAKER) (test nfgq=095) 79 mg/dL CHOLESTEROL (BEAKER) (test bkof=943) 206 mg/dL HDL CHOLESTEROL (BEAKER) (test vjvu=555) 53 mg/dL LDL CHOLESTEROL CALCULATED (BEAKER) (test 137 mg/dL lcxx=578) Triglyceride Reference Range: Low Risk <150 Borderline 150- 199 High Risk 200-499 Very High Risk >=500Cholesterol Reference Range: Low Risk <200 Borderline 200-239 High Risk > 240HDL Cholesterol Reference Range: Low Risk >=60 High Risk <40LDL Cholesterol Reference Range: Optimal <100 Near Optimal 100-129 Borderline 130-159 High 160-189 Very High >=190COMPREHENSIVE METABOLIC [id number] 04:47:00 Test Item Value Reference Range Comments TOTAL PROTEIN (BEAKER) 7.2 gm/dL 6.0-8.5 (test jtjv=031) ALBUMIN (BEAKER) (test 4.1 g/dL 3.5-5.0 tqza=1526) ALKALINE PHOSPHATASE 78 U/L 30-115 (BEAKER) (test ctej=277) BILIRUBIN TOTAL (BEAKER) 0.5 mg/dL 0.1-1.3 (test xcva=174) SODIUM (BEAKER) (test 141 meq/L 135-148 olwr=110) POTASSIUM (BEAKER) (test 3.9 meq/L 3.5-5.5 onje=426) CHLORIDE (BEAKER) (test 109 meq/L 98-106 wsdt=946) CO2 (BEAKER) (test 23 meq/L 20-31 wxey=273) BLOOD UREA NITROGEN 9 mg/dL 10-26 (BEAKER) (test txun=808) CREATININE (BEAKER) (test 0.95 mg/dL 0.50-1.20 oujv=959) GLUCOSE RANDOM (BEAKER) 83 mg/dL 70-110 (test jlah=935) CALCIUM (BEAKER) (test 8.8 mg/dL 8.5-10.5 foug=381) AST (SGOT) (BEAKER) (test 28 U/L 5-40 jncw=177) ALT (SGPT) (BEAKER) (test 27 U/L 6-50 iwci=206) EGFR (BEAKER) (test 86 mL/min/1.73 sq m ESTIMATED GFR IS NOT jbqz=6749) ACCURATE CREATININE CLEARANCE IN PREDICTING GLOMERULAR FILTRATION RATE. ESTIMATED GFR IS NOT APPLICABLE FOR DIALYSIS PATIENTS. CBC W/PLT COUNT & AUTO [id number] 04:19:00 Test Item Value Reference Range Comments WHITE BLOOD CELL COUNT (BEAKER) (test poua=314) 6.6 K/ L 4.0-10.0 RED BLOOD CELL COUNT (BEAKER) (test abbd=507) 3.66 M/ L 4.20-5.80 HEMOGLOBIN (BEAKER) (test bqyl=698) 8.5 GM/DL 13.0-16.8 HEMATOCRIT (BEAKER) (test ochx=511) 27.3 % 40.0-50.0 MEAN CORPUSCULAR VOLUME (BEAKER) (test usam=712) 74.7 fL 82.0-98.0 MEAN CORPUSCULAR HEMOGLOBIN (BEAKER) (test 23.2 pg 27.0-33.0 yeky=232) MEAN CORPUSCULAR HEMOGLOBIN CONC (BEAKER) (test 31.0 GM/DL 32.0-36.0 xoyb=921) RED CELL DISTRIBUTION WIDTH (BEAKER) (test 19.2 % 12.0-15.0 muqz=352) PLATELET COUNT (BEAKER) (test pzlu=082) 348 K/CU MM 150-430 MEAN PLATELET VOLUME (BEAKER) (test utnw=000) 6.8 fL 6.5-10.5 NUCLEATED RED BLOOD CELLS (BEAKER) (test 0 /100 WBC 0-0 fadu=372) NEUTROPHILS RELATIVE PERCENT (BEAKER) (test 49 % aade=768) LYMPHOCYTES RELATIVE PERCENT (BEAKER) (test 39 % hftl=938) MONOCYTES RELATIVE PERCENT (BEAKER) (test 9 % xiey=564) EOSINOPHILS RELATIVE PERCENT (BEAKER) (test 1 % yjix=556) BASOPHILS RELATIVE PERCENT (BEAKER) (test 2 % laej=486) NEUTROPHILS ABSOLUTE COUNT (BEAKER) (test 3.20 K/ L 1.80-8.00 guyn=517) LYMPHOCYTES ABSOLUTE COUNT (BEAKER) (test 2.60 K/ L 1.48-4.50 pkao=665) MONOCYTES ABSOLUTE COUNT (BEAKER) (test 0.60 K/ L 0.00-1.30 zgjv=853) EOSINOPHILS ABSOLUTE COUNT (BEAKER) (test 0.10 K/ L 0.00-0.50 etkw=234) BASOPHILS ABSOLUTE COUNT (BEAKER) (test 0.10 K/ L 0.00-0.20 pgzd=640) TROPONIN [id number] 13:44:00 Test Item Value Reference Range Comments TROPONIN I (BEAKER) (test ddhj=427) < ng/mL 0.00-0.15 Troponin I (TnI) levels [...] and persistent tachyarrhythmia.CREATINE KINASE (CK), TOTAL AND [id number] 13:43:00 Test Item Value Reference Range Comments CREATINE KINASE TOTAL (BEAKER) (test lotc=691) 61 U/L 40-250 CREATINE KINASE-MB (BEAKER) (test jyck=211) 1.0 ng/mL 0.0-4.9 CREATINE KINASE-MB INDEX (BEAKER) (test uxcu=651) 1.6 % CK-MB Reference Range:<5 Normal5-10 Borderline>10 AbnormalTROPONIN [id number] 07:21:00 Test Item Value Reference Range Comments TROPONIN I (BEAKER) (test darw=197) < ng/mL 0.00-0.15 Troponin I (TnI) levels [...] and persistent tachyarrhythmia.CREATINE KINASE (CK), TOTAL AND [id number] 07:20:00 Test Item Value Reference Range Comments CREATINE KINASE TOTAL (BEAKER) (test mwzo=546) 58 U/L 40-250 CREATINE KINASE-MB (BEAKER) (test bkgb=409) 0.9 ng/mL 0.0-4.9 CREATINE KINASE-MB INDEX (BEAKER) (test xivx=636) 1.6 % CK-MB Reference Range:<5 Normal5-10 Borderline>10 AbnormalCBC W/PLT COUNT & AUTO [id number] 22:21:00 Test Item Value Reference Range Comments WHITE BLOOD CELL COUNT (BEAKER) (test rljh=832) 7.3 K/ L 4.0-10.0 RED BLOOD CELL COUNT (BEAKER) (test bkiu=217) 4.00 M/ L 4.20-5.80 HEMOGLOBIN (BEAKER) (test qklz=791) 9.4 GM/DL 13.0-16.8 HEMATOCRIT (BEAKER) (test gknz=521) 30.0 % 40.0-50.0 MEAN CORPUSCULAR VOLUME (BEAKER) (test ixwk=036) 74.9 fL 82.0-98.0 MEAN CORPUSCULAR HEMOGLOBIN (BEAKER) (test 23.5 pg 27.0-33.0 kioe=064) MEAN CORPUSCULAR HEMOGLOBIN CONC (BEAKER) (test 31.4 GM/DL 32.0-36.0 nkqd=451) RED CELL DISTRIBUTION WIDTH (BEAKER) (test 20.1 % 10.3-14.2 dfyy=337) PLATELET COUNT (BEAKER) (test jcsl=887) 392 K/CU MM 150-430 MEAN PLATELET VOLUME (BEAKER) (test kpbp=266) 6.8 fL 6.5-10.5 NUCLEATED RED BLOOD CELLS (BEAKER) (test 0 /100 WBC 0-0 tfri=889) NEUTROPHILS RELATIVE PERCENT (BEAKER) (test 45 % fraj=660) LYMPHOCYTES RELATIVE PERCENT (BEAKER) (test 40 % qddk=378) MONOCYTES RELATIVE PERCENT (BEAKER) (test 14 % edvi=101) EOSINOPHILS RELATIVE PERCENT (BEAKER) (test 1 % adnt=392) BASOPHILS RELATIVE PERCENT (BEAKER) (test 0 % wgtx=971) NEUTROPHILS ABSOLUTE COUNT (BEAKER) (test 3.30 K/ L 1.80-8.00 smed=567) LYMPHOCYTES ABSOLUTE COUNT (BEAKER) (test 2.90 K/ L 1.48-4.50 bwen=033) MONOCYTES ABSOLUTE COUNT (BEAKER) (test 1.00 K/ L 0.00-1.30 nisj=847) EOSINOPHILS ABSOLUTE COUNT (BEAKER) (test 0.10 K/ L 0.00-0.50 xyif=053) BASOPHILS ABSOLUTE COUNT (BEAKER) (test 0.00 K/ L 0.00-0.20 qgoa=662) (MANUAL DIFFERENTIAL)2016-12-01 22:21:00 Test Item Value Reference Range Comments TOTAL COUNTED (BEAKER) (test mjvz=4283) WBC MORPHOLOGY (BEAKER) (test gbwr=405) Normal PLT MORPHOLOGY (BEAKER) (test iorn=478) Normal ANISOCYTOSIS (BEAKER) (test mjao=576) 2+ moderate HYPOCHROMIA (BEAKER) (test pndv=022) 1+ few TROPONIN [id number] 22:13:00 Test Item Value Reference Range Comments TROPONIN I (BEAKER) (test kgss=063) < ng/mL 0.00-0.15 Troponin I (TnI) levels [...] and persistent tachyarrhythmia.CREATINE KINASE (CK), TOTAL AND [id number] 22:12:00 Test Item Value Reference Range Comments CREATINE KINASE TOTAL (BEAKER) (test sdgx=766) 68 U/L 40-250 CREATINE KINASE-MB (BEAKER) (test zbtq=787) 1.0 ng/mL 0.0-4.9 CREATINE KINASE-MB INDEX (BEAKER) (test fjce=975) 1.5 % CK-MB Reference Range:<5 Normal5-10 Borderline>10 AbnormalCOMPREHENSIVE METABOLIC [id number] 22:05:00 Test Item Value Reference Range Comments TOTAL PROTEIN (BEAKER) 8.0 gm/dL 6.0-8.5 (test jxeg=466) ALBUMIN (BEAKER) (test 4.7 g/dL 3.5-5.0 eykr=8841) ALKALINE PHOSPHATASE 84 U/L 30-115 (BEAKER) (test augq=763) BILIRUBIN TOTAL (BEAKER) 0.5 mg/dL 0.1-1.2 (test nkqs=233) SODIUM (BEAKER) (test 139 meq/L 135-148 nidc=227) POTASSIUM (BEAKER) (test 4.0 meq/L 3.6-5.5 pywd=549) CHLORIDE (BEAKER) (test 103 meq/L 98-106 kxgq=320) CO2 (BEAKER) (test 26 meq/L 20-29 rwqk=033) BLOOD UREA NITROGEN 13 mg/dL 10-26 (BEAKER) (test wlme=046) CREATININE (BEAKER) (test 1.00 mg/dL 0.50-1.20 amua=093) GLUCOSE RANDOM (BEAKER) 118 mg/dL 70-110 (test muwt=546) CALCIUM (BEAKER) (test 10.1 mg/dL 8.5-10.5 fxbh=878) AST (SGOT) (BEAKER) (test 19 U/L 5-40 vacn=478) ALT (SGPT) (BEAKER) (test 15 U/L 5-50 nakb=240) EGFR (BEAKER) (test 81 mL/min/1.73 sq m ESTIMATED GFR IS NOT jqai=9745) ACCURATE CREATININE CLEARANCE IN PREDICTING GLOMERULAR FILTRATION RATE. ESTIMATED GFR IS NOT APPLICABLE FOR DIALYSIS PATIENTS. PROTHROMBIN TIME/[id number] 21:58:00 Test Item Value Reference Range Comments PROTIME (BEAKER) (test vnnq=143) 10.5 seconds 9.3-12.0 INR (BEAKER) (test rfbq=471) 1.0 <=5.9 RECOMMENDED COUMADIN/WARFARIN INR THERAPY RANGESSTANDARD DOSE: 2.0 - 3.0 Includes: PROPHYLAXIS forvenous thrombosis, systemic embolization; TREATMENT for venous thrombosis and/or pulmonary embolus.HIGH RISK: Target INR is 2.5-3.5 for patients with mechanical heart valves.[id number] 21:58:00 Test Item Value Reference Range Comments PARTIAL THROMBOPLASTIN TIME (BEAKER) (test 32.3 seconds 23.0-35.0 bcrj=444)
[2018-09-03 20:32] LABS: Absolute Lymphocytes (CBC) 2.3 K/uL (0.7-4.9); Absolute Neutrophil 4.1 K/uL (1.8-8.0); Basophils % 0.4 % (0-1.3); Eosinophils % 2.4 % (0-4.4); Lymphocytes % 29.5 % (15.3-44.8); MCH 23.6 pg (27.0-35.0); MPV 7.3 fL (7.6-11.3); Monocytes % 13.7 % (3.3-12.3); RBC Red Blood Cell Count 4.19 M/uL (4.33-5.43)
[2018-09-03] MEDS ORDERED: ASPIRIN 81 MG CHEWABLE TABLET ONE (20:34)
[2018-09-03] MEDS ORDERED: NA CHLORIDE 0.9% 1,000 ML ONE (20:35)
[2018-09-03] MEDS ORDERED: HYDROMORPHONE HCL 1 MG/ML INJ ONE ×2 (20:35→22:02)
[2018-09-03 20:44] LABS: Protime INR 1.05
[2018-09-03 20:50] LABS: ALT/SGPT 23 U/L (12-78); AST/SGOT 25 U/L (15-37); Alkaline Phosphatase 83 U/L (45-117); BUN Blood Urea Nitrogen 13 mg/dL (7-18); Bicarbonate 26 mmol/L (21-32); Bilirubin Direct 0.1 mg/dL (0-0.2); Bilirubin Total 0.5 mg/dL (0.2-1.0); Glucose Level 141 mg/dL (74-106); NT PRO-BNP 27 pg/mL (<125); Potassium 3.4 mmol/L (3.5-5.1); Protein, Total 7.8 g/dL (6.4-8.2); Sodium Level 140 mmol/L (136-145); Troponin (Emerg Dept Use Only) < 0.02 ng/mL (0.0-0.045)
--- NOTE | 2018-09-03 21:54 | ER ---
Nurse's Notes [facility] Name: Christiano Serra Age: 48 yrs Sex: Male : 1970 Arrival Date: 09/03/2018 Time: 19:51 Bed 26 Private MD: Diagnosis: Chest pain, unspecified Presentation: 09/03 20:00 Presenting complaint: Patient states: he has an extensive cardiac history and started bb experiencing chest pain about 2.5 hours ago, pt took 3 nitro and an extra bystolic but chest pain is still there pt had recent abnormal stress test. Transition of care: patient was not received from another setting of care. Onset of symptoms was September 03, 2018. Risk Assessment: Do you want to hurt yourself or someone else? Patient reports no desire to harm self or others. Initial Sepsis Screen: Does the patient meet any 2 criteria? No. Patient's initial sepsis screen is negative. Does the patient have a suspected source of infection? No. Patient's initial sepsis screen is negative. Care prior to arrival: None. 20:00 Method Of Arrival: Ambulatory bb 20:00 Acuity: RADHA 2 bb Historical: - Allergies: 20:22 ambien; bb 20:22 Morphine; bb 20:22 Toradol; bb - Home Meds: 20:22 Zanaflex Oral [Active]; Stockwell Oral [Active]; Plavix 75 mg Oral tab 1 tab once daily bb [Active]; lisinopril Oral [Active]; Lipitor Oral [Active]; nitroglycerin 0.4 mg SL subl 1 tab every 5 minutes [Active]; Bystolic oral oral [Active]; arixtra [Active]; 20:51 carvedilol 25 mg oral tab 1 tab 2 times per day [Active]; lp1 - PMHx: 20:22 FACTOR V; Hyperlipidemia; Hypertension; Myocardial infarction; bb - PSHx: 20:22 Heart stents; back surgery; Cholecystectomy; port a cath; bb - Immunization history:: Adult Immunizations up to date. - Social history:: Smoking status: Patient/guardian denies using tobacco, Patient/guardian denies using alcohol, street drugs, The patient lives with family. - Ebola Screening: : No symptoms or risks identified at this time. - Family history:: not pertinent, pertinent for. - Hospitalizations: : No recent hospitalization is reported. Screenin:49 Abuse screen: Denies threats or abuse. Denies injuries from another. Nutritional lp1 screening: No deficits noted. Tuberculosis screening: No symptoms or risk factors identified. Fall Risk None identified. Assessment: 20:15 General: Appears distressed, uncomfortable, Behavior is anxious, restless. Pain: lp1 Complains of pain in chest Pain does not radiate. Pain currently is 9 out of 10 on a pain scale. Quality of pain is described as sharp, Pain began suddenly, Is continuous. Neuro: Level of Consciousness is awake, alert, obeys commands, Oriented to person, place, time, situation, Pupils are PERRLA. Cardiovascular: Patient's skin is warm and dry. Rhythm is sinus tachycardia Chest pain is described as severe, quality is sharp, is located in anterior substernal area began 30 minutes prior to arrival episodes are continuous. Respiratory: Respiratory effort is labored, Respiratory pattern is symmetrical, Breath sounds are clear bilaterally. GI: Abdomen is non-distended. : No signs and/or symptoms were reported regarding the genitourinary system. EENT: No signs and/or symptoms were reported regarding the EENT system. Derm: Skin is intact, Skin is dry, Skin is normal. Musculoskeletal: Circulation, motion, and sensation intact. 21:08 Reassessment: States pain decreased at this time after med administration. General: lp1 Behavior is calm. 21:55 Reassessment: Patient states pain returning to chest, "unbearable"; Patient restless in lp1 bed, Provider notified. 23:00 Reassessment: Patient appears in no apparent distress at this time. Patient is alert, lp1 oriented x 3, equal unlabored respirations, skin warm/dry/pink. Patient aware of admission Patient states symptoms have improved. Vital Signs: 20:22 BP 149 / 95; Pulse 129; Resp 16 S; Temp 99.2(O); Pulse Ox 100% on R/A; Weight 90.72 kg bb (R); Height 5 ft. 7 in. (170.18 cm) (R); Pain 9/10; 20:40 BP 155 / 111; Pulse 126; Resp 22; Pulse Ox 99% on R/A; lp1 21:00 BP 153 / 91; Pulse 123; Resp 20; Pulse Ox 100% on R/A; lp1 21:45 BP 167 / 97; Pulse 118; Resp 15; Pulse Ox 100% on R/A; lp1 22:06 BP 163 / 90; Pulse 115; Resp 20; Pulse Ox 100% on R/A; lp1 22:57 BP 143 / 97; Pulse 111; Resp 19; Pulse Ox 100% on R/A; lp1 20:22 Body Mass Index 31.32 (90.72 kg, 170.18 cm) bb ED Course: 19:51 Patient arrived in ED. am2 20:00 Arm band placed on Patient placed in an exam room, on a stretcher, on quality assurance monitor final, bb on pulse oximetry. EKG completed in triage. Results shown to MD. 20:02 Damián Madrid MD is Attending Physician. ma2 20:15 Accessed Medi-Port. using accessed w/ # 20 Rich needle, ,sterile technique, per [facility] hospital protocol. Clean \\T\\ dry. Dressing intact. Good blood return. Flushes easily. Patient maintains SpO2 saturation greater than 95% on room air. 20:15 Patient has correct armband on for positive identification. Bed in low position. Call lp1 light in reach. Side rails up X 1. hospital monitor on. Pulse ox on. NIBP on. 20:17 Triage completed. bb 20:48 Saundra Berger, RN is Primary Nurse. lp1 20:59 X-ray completed. Portable x-ray completed in exam room. Patient tolerated procedure kp1 well. 21:01 XRAY Chest (1 view) In Process Unspecified. EDMS 21:53 Damián Glass MD is Hospitalizing Provider. ma2 22:06 No provider procedures requiring assistance completed. Patient admitted, IV remains in lp1 place. Administered Medications: 20:25 Drug: Aspirin Chewable Tablet 324 mg Route: PO; lp1 21:30 Follow up: Response: No adverse reaction lp1 20:25 Drug: NS 0.9% 1000 ml Route: IV; Rate: 1 bolus; Site: Port-a-cath; lp1 22:06 Follow up: IV Status: Completed infusion; IV Intake: 1000ml lp1 20:25 Drug: Dilaudid 1 mg Route: IVP; Site: Port-a-cath; lp1 21:00 Follow up: Response: Pain is decreased lp1 22:00 Drug: Dilaudid 1 mg Route: IVP; Site: Port-a-cath; lp1 22:30 Follow up: Response: Pain is decreased lp1 Intake: 22:06 IV: 1000ml; Total: 1000ml. lp1 Outcome: 21:53 Decision to Hospitalize by Provider. ma2 22:06 Condition: stable lp1 22:06 Instructed on the need for admit. 23:39 Admitted to ER Hold. Please see [facility] for further documentation. lp1 09/04 06:45 Patient left the ED. lp1 Signatures: Dispatcher [employer] EDMS Gayle Zarate, RN RN bb Saundra Berger RN RN lp1 Homa Lovelace am2 Trena Foley kp1 Damián Madrid MD MD ma2 Corrections: (The following items were deleted from the chart) 07:17 07:17 Patient left the ED. lp1 lp1
--- NOTE | 2018-09-03 21:54 | EDPHYS ---
Physician Documentation [facility] Name: Christiano Serra Age: 48 yrs Sex: Male : 1970 Arrival Date: 09/03/2018 Time: 19:51 Bed 26 Private MD: ED Physician Damián Madrid HPI: 09/03 20:53 This 48 yrs old Other Male presents to ER via Ambulatory with complaints of Chest Pain. ma2 20:53 The patient or guardian reports chest pain that is located primarily in the substernal ma2 area. Onset: suddenly, 1 hour(s) ago. The pain radiates to the left shoulder. The chest pain is described as crushing. Duration: The patient or guardian reports a single episode. Severity of pain: At its worst the pain was severe in the emergency department the pain is unchanged. Historical: - Allergies: 20:22 ambien; bb 20:22 Morphine; bb 20:22 Toradol; bb - Home Meds: 20:22 Zanaflex Oral [Active]; Alexander Oral [Active]; Plavix 75 mg Oral tab 1 tab once daily bb [Active]; lisinopril Oral [Active]; Lipitor Oral [Active]; nitroglycerin 0.4 mg SL subl 1 tab every 5 minutes [Active]; Bystolic oral oral [Active]; arixtra [Active]; 20:51 carvedilol 25 mg oral tab 1 tab 2 times per day [Active]; lp1 - PMHx: 20:22 FACTOR V; Hyperlipidemia; Hypertension; Myocardial infarction; bb - PSHx: 20:22 Heart stents; back surgery; Cholecystectomy; port a cath; bb - Immunization history:: Adult Immunizations up to date. - Social history:: Smoking status: Patient/guardian denies using tobacco, Patient/guardian denies using alcohol, street drugs, The patient lives with family. - Ebola Screening: : No symptoms or risks identified at this time. - Family history:: not pertinent, pertinent for. - Hospitalizations: : No recent hospitalization is reported. ROS: 20:53 Constitutional: Negative for fever, chills, and weight loss, Respiratory: Negative for ma2 shortness of breath, cough, wheezing, and pleuritic chest pain, Abdomen/GI: Negative for abdominal pain, nausea, diarrhea, and constipation. 20:53 Cardiovascular: Positive for chest pain, Negative for edema, palpitations, paroxysmal nocturnal dyspnea, acute changes. 20:53 All other systems are negative. Exam: 20:53 Constitutional: This is a well developed, well nourished patient who is awake, alert, ma2 and in no acute distress. Chest/axilla: Normal chest wall appearance and motion. Nontender with no deformity. No lesions are appreciated. Cardiovascular: Regular rate and rhythm with a normal S1 and S2. No gallops, murmurs, or rubs. Normal PMI, no JVD. No pulse deficits. Respiratory: Lungs have equal breath sounds bilaterally, clear to auscultation and percussion. No rales, rhonchi or wheezes noted. No increased work of breathing, no retractions or nasal flaring. Abdomen/GI: Soft, non-tender, with normal bowel sounds. No distension or tympany. No guarding or rebound. No evidence of tenderness throughout. Neuro: Awake and alert, GCS 15, oriented to person, place, time, and situation. Cranial nerves II-XII grossly intact. Motor strength 5/5 in all extremities. Sensory grossly intact. Cerebellar exam normal. Normal gait. Vital Signs: 20:22 BP 149 / 95; Pulse 129; Resp 16 S; Temp 99.2(O); Pulse Ox 100% on R/A; Weight 90.72 kg bb (R); Height 5 ft. 7 in. (170.18 cm) (R); Pain 9/10; 20:40 BP 155 / 111; Pulse 126; Resp 22; Pulse Ox 99% on R/A; lp1 21:00 BP 153 / 91; Pulse 123; Resp 20; Pulse Ox 100% on R/A; lp1 21:45 BP 167 / 97; Pulse 118; Resp 15; Pulse Ox 100% on R/A; lp1 22:06 BP 163 / 90; Pulse 115; Resp 20; Pulse Ox 100% on R/A; lp1 22:57 BP 143 / 97; Pulse 111; Resp 19; Pulse Ox 100% on R/A; lp1 20:22 Body Mass Index 31.32 (90.72 kg, 170.18 cm) bb MDM: 20:04 Patient medically screened. ma2 20:53 Differential diagnosis: abnormal EKG, acute myocardial infarction, acute pericarditis, ma2 anxiety, coronary artery disease chest wall pain, congestive heart failure. The patient was given aspirin in the Emergency Department. 21:51 Data reviewed: vital signs, nurses notes, diagnostic data from outside facility, lab ma2 test result(s), EKG, radiologic studies. Counseling: I had a detailed discussion with the patient and/or guardian regarding: the historical points, exam findings, and any diagnostic results supporting the discharge/admit diagnosis, the presence of at least one elevated blood pressure reading (>120/80) during this emergency department visit, the need for further work-up and treatment in the hospital. ED course: chest pain resolved. 09/03 20:02 Order name: Basic Metabolic Panel; Complete Time: 21:13 ma2 09/03 20:02 Order name: CBC with Diff; Complete Time: 21:13 [facility] 09/03 20:02 Order name: LFT's; Complete Time: 21:13 [facility] 09/03 20:02 Order name: Magnesium; Complete Time: 21:13 [facility] 09/03 20:02 Order name: NT PRO-BNP; Complete Time: 21:13 [facility] 09/03 20:02 Order name: PT-INR; Complete Time: 21:13 ar2 09/03 20:02 Order name: Troponin (emerg Dept Use Only); Complete Time: 21:13 ar2 09/03 20:02 Order name: XRAY Chest (1 view); Complete Time: 22:46 ma2 09/03 21:59 Order name: Troponin I: trop repeat at 11 pm [facility] 09/04 05:45 Order name: Basic Metabolic Panel EDCT 09/04 06:14 Order name: CBC with Automated Diff EDCT 09/03 20:02 Order name: EKG; Complete Time: 20:12 ar2 09/03 20:02 Order name: Cardiac monitoring; Complete Time: 20:47 ar2 09/03 20:02 Order name: EKG - Nurse/Tech; Complete Time: 20:47 ar2 09/03 20:02 Order name: IV Saline Lock; Complete Time: 20:47 ma2 09/03 20:02 Order name: Labs collected and sent; Complete Time: 20:47 ar2 09/03 20:02 Order name: O2 Per Protocol; Complete Time: 20:47 ar2 09/03 20:02 Order name: O2 Sat Monitoring; Complete Time: 20:47 ma2 Administered Medications: 20:25 Drug: Aspirin Chewable Tablet 324 mg Route: PO; lp1 21:30 Follow up: Response: No adverse reaction lp1 20:25 Drug: NS 0.9% 1000 ml Route: IV; Rate: 1 bolus; Site: Port-a-cath; lp1 22:06 Follow up: IV Status: Completed infusion; IV Intake: 1000ml lp1 20:25 Drug: Dilaudid 1 mg Route: IVP; Site: Port-a-cath; lp1 21:00 Follow up: Response: Pain is decreased lp1 22:00 Drug: Dilaudid 1 mg Route: IVP; Site: Port-a-cath; lp1 22:30 Follow up: Response: Pain is decreased lp1 Disposition: 09/03/18 21:53 Hospitalization ordered by Damián Glass for Observation. Preliminary diagnosis is Chest pain, unspecified. - Bed requested for [facility] ER HOLD. - Status is Observation. lp1 - Condition is Stable. - Problem is new. - Symptoms are unchanged. UTI on Admission? No Signatures: Dispatcher [employer] EDMS Susi Huitron RN RN Gayle Zarate RN RN bb Pena, Laura, RN RN [facility] Damián Madrid MD MD ar2 Corrections: (The following items were deleted from the chart) 23:09 21:53 Hospitalization Ordered by Damián Glass MD for Observation. Preliminary diagnosis is Chest pain, unspecified. Bed requested for Telemetry/MedSurg (observation). Status is Observation. Condition is Stable. Problem is new. Symptoms are unchanged. UTI on Admission? No. ma2 09/04 07:17 09/03 23:09 09/03/2018 21:53 Hospitalization Ordered by Damián Glass MD for lp1 Observation. Preliminary diagnosis is Chest pain, unspecified. Bed requested for [facility] ER HOLD. Status is Observation. Condition is Stable. Problem is new. Symptoms are unchanged. UTI on Admission? No. mw
--- NOTE | 2018-09-03 22:06 | RAD REPORT ---
EXAM DESCRIPTION: RAD - Chest Single View - 09/03/2018 9:00 pm CLINICAL HISTORY: Chest pain COMPARISON: August 19 TECHNIQUE: AP portable chest image was obtained 2042 hour . FINDINGS: Low lung volumes noted. No peripheral mass or consolidation. Vasculature and lung markings are mildly prominent due to inspiratory effort. True interstitial edema or infiltrate not suspected. Infusion catheter is in place. Heart and vasculature are normal. No measurable pleural effusion and no pneumothorax. No acute bony abnormality seen. No acute aortic findings suspected. IMPRESSION: Limited shallow inspiration without acute cardiopulmonary finding. No significant change from comparison.
[2018-09-03] MEDS ORDERED: ACETAMINOPHEN 500 MG TAB PO PRN (23:32)
[2018-09-03] MEDS ORDERED: MORPHINE 4 MG/ML SYR IV PRN (23:32)
[2018-09-04 00:06] VITALS: BMI 31.3
[2018-09-04 00:23] VITALS: O2SAT 99
[2018-09-04] MEDS ORDERED: HYDROMORPHONE HCL 0.5 MG/0.5 ML INJ IV ONE (00:59)
[2018-09-04 04:36] VITALS: BP 141/100; TEMP 98.6
[2018-09-04] MEDS ORDERED: HYDROCODONE/APAP 10/325 TAB PO PRN (05:24)
[2018-09-04] MEDS ORDERED: PANTOPRAZOLE 40MG TABLET PO ONE ×2 (05:24→05:47)
[2018-09-04 05:32] LABS: Absolute Lymphocytes (CBC) 2.3 K/uL (0.7-4.9); Absolute Neutrophil 4.1 K/uL (1.8-8.0); Basophils % 0.6 % (0-1.3); Eosinophils % 2.4 % (0-4.4); Hematocrit 28.8 % (39.6-49.0); Lymphocytes % 30.4 % (15.3-44.8); MCH 23.8 pg (27.0-35.0); MCV 72.8 fL (80-100); MPV 7.3 fL (7.6-11.3); Monocytes % 13.2 % (3.3-12.3); RBC Red Blood Cell Count 3.95 M/uL (4.33-5.43)
[2018-09-04 05:45] LABS: BUN Blood Urea Nitrogen 11 mg/dL (7-18); Bicarbonate 25 mmol/L (21-32); Glucose Level 89 mg/dL (74-106); Potassium 3.3 mmol/L (3.5-5.1); Sodium Level 140 mmol/L (136-145)
[2018-09-04] MEDS ORDERED: HYDROCODONE/APAP 10/325 TAB ONE (05:47)
[2018-09-04] MEDS ORDERED: ASPIRIN EC 81 MG TAB PO SCH (09:00)
[2018-09-04] MEDS ORDERED: METOPROLOL TAR 50 MG TAB PO SCH (09:00)
--- NOTE | 2018-09-04 09:44 | EKG ---
Test Date: 2018-09-03 Test Time: 20:04:26 Floor Inspector: NATHANAEL MEASUREMENT RESULTS: Intervals: Rate: 129 CT: 154 QRSD: 84 QT: 296 QTc: 433 [place]: P: 37 CT: 154 QRS: 10 T: 40 INTERPRETIVE STATEMENTS: Sinus tachycardia Possible Left atrial enlargement Nonspecific ST abnormality Abnormal ECG Compared to ECG 08/19/2018 09:37:30 No significant changes Electronically Signed On 09-04-18 09:44:06 HEAT TREAT TECHNICIAN by Hair Abreu
--- NOTE | 2018-09-04 13:13 | P.HP ---
Certification for Inpatient Patient admitted to: Observation With expected LOS: <2 Midnights Patient will require the following post-hospital care: None Practitioner: I am a practitioner with admitting privileges, knowledge of patient current condition, hospital course, and medical plan of care. Services: Services provided to patient in accordance with Admission requirements found in Title 42 Section 412.3 of the Code of Federal Regulations Patient History Date of Service: 09/03/18 Reason for admission: CP r/o ACS History of Present Illness: Patient is a 48-year-old gentleman who has a history of coronary artery disease status post stent placement. His last intervention was done about a year ago. Since that time he has been following up with Dr. Patel in [place]. He has not had needed any further intervention or any further diagnostic studies. He states his last cardiac catheterization did not reveal any significant plaquing. There are concerned that he may be having spasms. He was started on Imdur. Patient has continued to have pain. Pain was mainly in the sternal region. There was no radiation. He had a positive stress test and is scheduled for cardiac catheterization this week. He will be admitted to the hospital for observation and to be ruled out for ACS. Allergies ketorolac tromethamine [From Toradol] Allergy (Intermediate, Verified 02/19/17 00:21) Hives morphine Allergy (Verified 02/19/17 00:21) Hives zolpidem tartrate [From Ambien] Adverse Reaction (Intermediate, Verified 00:21) [facility] Home Medications: Hydrocodone 10/APAP 325 [[place] 10/325*] 1 tab PO Q4HP PRN 07/28/14 Tizanidine [Zanaflex*] 2 tab PO Q4HP PRN 07/29/14 Clopidogrel Bisulfate [Plavix*] 75 mg PO DAILY 02/19/17 Fondaparinux [Arixtra*] 7.5 mg PO DAILY 02/19/17 Lisinopril 10 mg PO DAILY 02/19/17 Nebivolol HCl [Bystolic*] 20 mg PO DAILY 08/09/18 Atorvastatin Calcium [Lipitor] 80 mg PO BEDTIME #30 tablet 08/10/18 - Past Medical/Surgical History Has patient received pneumonia vaccine in the past: Yes Diabetic: 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 -: Coronary Artery Disease -: Pulmonary Embolism -: Pericarditits -: SVT -: [place] -: Back Surgery -: Cholecystectomy -: right chest wall surinder cath -: Cardiac stents -: Port-a-cath - Social History Smoking Status: Never smoker Alcohol use: No CD- Drugs: No Caffeine use: No Place of Residence: Home Review of Systems 10-point ROS is otherwise unremarkable Physical Examination - Vital Signs Temperature: 98.6 F Blood Pressure: 141/100 Pulse: 105 Respirations: 19 Pulse Ox (%): 98 - Physical Exam General: Alert, In no apparent distress, Oriented x3 HEENT: Atraumatic, Normocephalic, PERRLA, Mucous membr. moist/pink Neck: Supple, 2+ carotid pulse no bruit, JVD not distended, No Thyromegaly Respiratory: Clear to auscultation bilaterally, Normal air movement Cardiovascular: Regular rate/rhythm, Normal S1 S2, No murmurs Gastrointestinal: Normal bowel sounds, Soft and benign, Non-distended, No rebound, No guarding Musculoskeletal: No clubbing Integumentary: No rashes Neurological: Normal gait, Normal speech, Normal strength at 5/5 x4 extr, Normal tone, Sensation intact, Cranial nerves 3-12 intact Lymphatics: No axilla or inguinal lymphadenopathy Urinary: Bladder distention - Studies Laboratory Data (last 24 hrs) 09/03/18 20:15: PT 12.4, INR 1.05 09/03/18 20:15: WBC 7.6 D, Hgb 9.9 L, Hct 31.0 L, Plt Count 356 09/03/18 20:15: Sodium 140, Potassium 3.4 L, BUN 13, Creatinine 1.20, Glucose 141 H, Magnesium 2.0, Total Bilirubin 0.5, AST 25, ALT 23, Alkaline Phosphatase 83 Assessment & Plan - Problems (Diagnosis) (1) CAD (coronary artery disease) Onset Date: 02/19/17 Status: Acute Qualifiers: (2) Chest pain Onset Date: 08/10/18 Status: Acute (3) SOB (shortness of breath) Onset Date: 08/10/18 Status: Acute - Plan 1. Serial troponins and EKG 2. If negative then will discharge as he is scheduled for cardiac catheterization this week Discharge Plan: Home Plan to discharge in: 24 Hours - Advance Directives Does patient have a Living Will: No Does patient have a Durable POA for Healthcare: No - Code Status/Comfort Care Code Status Assessed: Yes Code Status: Full Code Critical Care: No Time Spent Managing PTS Care (In Minutes): 45
--- NOTE | 2018-09-04 13:14 | P.DS ---
Discharge Date: 09/04/18 Disposition: AMA-LEFT AGAINST MEDICAL ADVIC Discharge Condition: GOOD Reason for Admission: CP r/o ACS - Problems (1) CAD (coronary artery disease) Onset Date: 02/19/17 Status: Acute Qualifiers: (2) Chest pain Onset Date: 08/10/18 Status: Acute (3) SOB (shortness of breath) Onset Date: 08/10/18 Status: Acute Brief History of Present Illness: Patient is a 48-year-old gentleman who has a history of coronary artery disease status post stent placement. His last intervention was done about a year ago. Since that time he has been following up with Dr. Patel in [place]. He has not had needed any further intervention or any further diagnostic studies. He states his last cardiac catheterization did not reveal any significant plaquing. There are concerned that he may be having spasms. He was started on Imdur. Patient has continued to have pain. Pain was mainly in the sternal region. There was no radiation. He had a positive stress test and is scheduled for cardiac catheterization this week. He will be admitted to the hospital for observation and to be ruled out for ACS. Hospital Course: Patient left AMA Vital Signs/Physical Exam: Temp Pulse Resp BP Pulse Ox 98.6 F 105 H 19 141/100 H 98 09/04/18 13:13 09/04/18 13:13 09/04/18 13:13 09/04/18 13:13 09/04/18 13:13 General: Alert, In no apparent distress, Oriented x3 Laboratory Data at Discharge: WBC 7.6 K/uL (4.3-10.9) 09/04/18 05:10 Hgb 9.4 g/dL (13.6-17.9) L 09/04/18 05:10 Hct 28.8 % (39.6-49.0) L 09/04/18 05:10 Plt Count 364 K/uL (152-406) 09/04/18 05:10 PT 12.4 SECONDS (9.5-12.5) 09/03/18 20:15 INR 1.05 09/03/18 20:15 Sodium 140 mmol/L (136-145) 09/04/18 05:10 Potassium 3.3 mmol/L (3.5-5.1) L 09/04/18 05:10 BUN 11 mg/dL (7-18) 09/04/18 05:10 Creatinine 0.80 mg/dL (0.55-1.3) 09/04/18 05:10 Glucose 89 mg/dL (74-106) 09/04/18 05:10 Magnesium 2.0 mg/dL (1.8-2.4) 09/03/18 20:15 Total Bilirubin 0.5 mg/dL (0.2-1.0) 09/03/18 20:15 AST 25 U/L (15-37) 09/03/18 20:15 ALT 23 U/L (12-78) 09/03/18 20:15 Alkaline Phosphatase 83 U/L (45-117) 09/03/18 20:15 Troponin I < 0.02 ng/mL (0.0-0.045) 09/04/18 02:05 Home Medications: Hydrocodone 10/APAP 325 [[place] 10/325*] 1 tab PO Q4HP PRN 07/28/14 Tizanidine [Zanaflex*] 2 tab PO Q4HP PRN 07/29/14 Clopidogrel Bisulfate [Plavix*] 75 mg PO DAILY 02/19/17 Fondaparinux [Arixtra*] 7.5 mg PO DAILY 02/19/17 Lisinopril 10 mg PO DAILY 02/19/17 Nebivolol HCl [Bystolic*] 20 mg PO DAILY 08/09/18 Atorvastatin Calcium [Lipitor] 80 mg PO BEDTIME #30 tablet 08/10/18 Patient Discharge Instructions: Patient left AMA Time spent managing pt's care (in minutes): 20
== END 2018-09-04 06:41 | disposition left against medical advice (07) ==
LOC: ER 19:50 → ERHOLD 23:00
PROVIDERS: ADMIT Hospitalist; ATTEND Hospitalist
DX: R07.9 Chest pain, unspecified (principal); R06.02 Shortness of breath; D68.2 Hereditary deficiency of other clotting factors; I25.10 Atherosclerotic heart disease of native coronary artery without angina pectoris; Z95.5 Presence of coronary angioplasty implant and graft; I25.2 Old myocardial infarction; Z86.711 Personal history of pulmonary embolism
CPT/HCPCS: 36415; 71045; 80048; 80076; 83735; 83880; 84484; 85025; 85610; 93005; 96361; 96374; 99285; G0378; J1170; J7030

== ENCOUNTER 2018-09-18 08:41 | Observation (INO) | payer BC ==
--- OUTSIDE RECORDS SUMMARY | 2018-09-18 08:44 | XMS REPORT | Clinical Summary ---
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 DIRECT TISH' (MAURI) Timed 12/14/2017 10:28 Results for this AM PRODUCTION ARTIST procedure are in the results section. ANTIBODY IDENTIFICATION Timed 12/14/2017 10:28 Results for this AM PRODUCTION ARTIST procedure are in the results section. TYPE AND SCREEN Routine 12/14/2017 10:28 Results for this AM PRODUCTION ARTIST procedure are in the results section. HC COMPLETE BLD COUNT STAT 12/14/2017 8:35 Results for this W/AUTO DIFF AM PRODUCTION ARTIST procedure are in the results section. VANCOMYCIN LEVEL, Timed 12/14/2017 8:35 Results for this TROUGH AM PRODUCTION ARTIST procedure are in the results section. CT ANGIOGRAM PE CHEST Routine 12/13/2017 2:28 Results for this PM PRODUCTION ARTIST procedure are in the results section. BLOOD CULTURE, AEROBIC Routine 12/13/2017 10:40 Results for this & ANAEROBIC AM PRODUCTION ARTIST procedure are in the results section. INFLUENZA ANTIGEN Routine 12/13/2017 10:10 Results for this AM PRODUCTION ARTIST procedure are in the results section. ZZESTIMATED GFR Routine 12/13/2017 5:10 Results for this AM PRODUCTION ARTIST procedure are in the results section. HC COMPLETE BLD COUNT Routine 12/13/2017 5:10 Results for this W/AUTO DIFF AM PRODUCTION ARTIST procedure are in the results section. BASIC METABOLIC PANEL Routine 12/13/2017 5:10 Results for this AM PRODUCTION ARTIST procedure are in the results section. TROPONIN Timed 12/13/2017 12:07 Results for this AM PRODUCTION ARTIST procedure are in the results section. TROPONIN Timed 12/12/2017 2:47 Results for this PM PRODUCTION ARTIST procedure are in the results section. LIPID PANEL Routine 12/12/2017 2:47 Results for this PM PRODUCTION ARTIST procedure are in the results section. TROPONIN Timed 11/27/2017 11:47 Results for this AM PRODUCTION ARTIST procedure are in the results section. ECG 12-LEAD Routine 11/27/2017 11:02 Results for this AM PRODUCTION ARTIST procedure are in the results section. CBC WITH PLATELET AND Timed 11/27/2017 5:38 Results for this DIFFERENTIAL AM PRODUCTION ARTIST procedure are in the results section. BASIC METABOLIC PANEL Timed 11/27/2017 5:38 Results for this AM PRODUCTION ARTIST procedure are in the results section. ZZESTIMATED GFR Timed 11/27/2017 5:38 Results for this AM PRODUCTION ARTIST procedure are in the results section. TROPONIN Timed 11/27/2017 5:38 Results for this AM PRODUCTION ARTIST procedure are in the results section. TROPONIN Routine 11/26/2017 11:35 Results for this PM PRODUCTION ARTIST procedure are in the results section. ECG 12-LEAD Routine 11/26/2017 10:59 Results for this PM PRODUCTION ARTIST procedure are in the results section. after 09/17/2017 Results Transfuse RBC (06/15/2018 5:50 PM CDT)Only the most recent of2 resultswithin the time period is included.Troponin (05/13/2018 12:34 PM CDT)Only the most recent of9 resultswithin the time period is included. Troponin <0.300 0.000 - 0.300 ng/mL [facility] DEPARTMENT OF Comment: PATHOLOGY AND GENOMIC 0.30 - 1.49 ng/mlMay indicate increased risk of acute MEDICINE coronary syndrome. >=1.5 ng/mlConsistent with acute myocardial infarction. The diagnostic value of a single normal or non-diagnostic result is questionable.Serial samples at 2-6 hour intervals are required to rule out acute myocardial injury. Specimen Plasma specimen Performing Organization Address [facility] [place]/[facility] Phone Number [facility] AND [id number] [place] [address] [place] [id number] [facility] Prothrombin time with INR (05/13/2018 6:30 AM CDT)Only the most recent of2 resultswithin the time period is included. Prothrombin time 12.6 12.0 - 15.0 sec [facility] DEPARTMENT OF PATHOLOGY AND [facility] INR 0.9 [facility] DEPARTMENT OF Comment: PATHOLOGY AND GENOMIC The International Normalized Ratio (INR) is a therapeutic MEDICINE monitoring tool for patients who are stable on oral anticoagulant therapy. An INR of 2.0-3.0 is suggested for deep vein thrombosis/pulmonary embolism. Specimen Blood Performing Organization Address [facility] Phone Number [facility] DEPARTMENT [facility] AND [address] [place] [address] [place] [address] [facility] ECG 12 lead (05/13/2018 5:49 AM CDT)Only the most recent of4 resultswithin the time period is included. Ventricular rate 85 [facility] Atrial rate 85 [facility] MI interval 158 [facility] QRSD interval 78 [...] are no longer present- Performing Organization Address [facility] [place]/[facility] Hospitalcode Phone Number [facility] MUSE [address] [place] [address] Smear review (05/13/2018 12:35 AM CDT)Only the most recent of2 resultswithin the time period is included. Platelet slide review Anotnia adequate [facility] DEPARTMENT OF PATHOLOGY AND GENOMIC MEDICINE Anisocytosis Moderate [facility] DEPARTMENT OF PATHOLOGY AND GENOMIC MEDICINE Tear drop cells Occasional [facility] DEPARTMENT OF PATHOLOGY AND GENOMIC MEDICINE Schistocytes Occasional [facility] DEPARTMENT OF PATHOLOGY AND GENOMIC MEDICINE Performing Organization Address [facility] [place]/[facility] Phone Number [facility] PATHOLOGY AND [address] [place] [address] Estimated GFR (05/13/2018 12:35 AM CDT)Only the most recent of4 resultswithin the time period is included. GFR Non Af Amer 80 mL/min/1.73 m2 [facility] DEPARTMENT OF PATHOLOGY AND GENOMIC MEDICINE GFR Af Amer >90 mL/min/1.73 m2 [facility] DEPARTMENT OF Comment: PATHOLOGY AND GENOMIC Chronic [...] Americans. Specimen Plasma specimen Performing Organization Address [facility] [place]/[facility] Phone Number [facility] AND [address] [place] [address] [place] [address] [facility] CBC with platelet and differential (05/13/2018 12:35 AM CDT)Only the most recent of5 resultswithin the time period is included. WBC 9.59 4.50 - 11.00 k/uL [facility] DEPARTMENT OF PATHOLOGY AND GENOMIC MEDICINE RBC 3.86 (L) 4.40 - 6.00 m/uL [facility] DEPARTMENT OF PATHOLOGY AND GENOMIC MEDICINE HGB 9.7 (L) 14.0 - 18.0 g/dL [facility] DEPARTMENT OF PATHOLOGY AND GENOMIC MEDICINE HCT 31.2 (L) 41.0 - 51.0 % [facility] DEPARTMENT OF PATHOLOGY AND GENOMIC MEDICINE MCV 80.8 (L) 82.0 - 100.0 fL [facility] DEPARTMENT OF PATHOLOGY AND GENOMIC MEDICINE MCH 25.1 (L) 27.0 - 34.0 pg [facility] DEPARTMENT OF PATHOLOGY AND GENOMIC MEDICINE MCHC 31.1 31.0 - 37.0 g/dL [facility] DEPARTMENT OF PATHOLOGY AND GENOMIC MEDICINE RDW - SD 75.7 (H) 37.0 - 55.0 fL [facility] DEPARTMENT OF PATHOLOGY AND GENOMIC MEDICINE MPV 8.9 8.8 - 13.2 fL [facility] DEPARTMENT OF PATHOLOGY AND GENOMIC MEDICINE Platelet count 248 150 - 400 k/uL [facility] DEPARTMENT OF PATHOLOGY AND GENOMIC MEDICINE Nucleated RBC 0.00 /100 WBC [facility] DEPARTMENT OF PATHOLOGY AND GENOMIC MEDICINE Neutrophils 45.8 39.0 - 69.0 % [facility] DEPARTMENT OF PATHOLOGY AND GENOMIC MEDICINE Lymphocytes 38.3 25.0 - 45.0 % [facility] DEPARTMENT OF PATHOLOGY AND GENOMIC MEDICINE Monocytes 15.3 (H) 0.0 - 10.0 % [facility] DEPARTMENT OF PATHOLOGY AND GENOMIC MEDICINE Eosinophils 0.3 0.0 - 5.0 % [facility] DEPARTMENT OF PATHOLOGY AND GENOMIC MEDICINE Basophils 0.1 0.0 - 1.0 % [facility] DEPARTMENT OF PATHOLOGY AND GENOMIC MEDICINE Specimen Blood Performing Organization Address City/State/Zipcode Phone Number [facility] DEPARTMENT OF [facility] AND [address] [place], [place] [id number] [place] [address] Comprehensive metabolic panel (05/13/2018 12:35 AM CDT)Only the most recent of2 resultswithin the time period is included. Sodium 139 135 - 148 mEq/L [facility] DEPARTMENT OF PATHOLOGY AND GENOMIC MEDICINE Potassium 3.5 3.5 - 5.0 mEq/L [facility] DEPARTMENT OF PATHOLOGY AND GENOMIC MEDICINE Chloride 103 98 - 112 mEq/L [facility] DEPARTMENT OF PATHOLOGY AND GENOMIC MEDICINE CO2 24 24 - 31 mEq/L [facility] DEPARTMENT OF PATHOLOGY AND GENOMIC MEDICINE Anion gap 12@ANIO 7 - 15 mEq/L [facility] DEPARTMENT OF PATHOLOGY AND GENOMIC MEDICINE BUN 22 (H) 6 - 20 mg/dL [facility] DEPARTMENT OF PATHOLOGY AND GENOMIC MEDICINE Creatinine 1.0 0.7 - 1.2 mg/dL [facility] DEPARTMENT OF PATHOLOGY AND GENOMIC MEDICINE Glucose 102 (H) 65 - 99 mg/dL [facility] DEPARTMENT OF PATHOLOGY AND GENOMIC MEDICINE Calcium 8.1 (L) 8.3 - 10.2 mg/dL [facility] DEPARTMENT OF PATHOLOGY AND GENOMIC MEDICINE Protein 6.8 6.3 - 8.3 g/dL [facility] DEPARTMENT OF Comment: PATHOLOGY AND GENOMIC [place] 4.6-7.0 g/dL MEDICINE 1 week 4.4-7.6 g/dL 7 months-1year5.1-7.3 g/dL 1-2 years5.6-7.5 g/dL >3 years6.0-8.0 g/dL 18-150 6.3-8.3 g/dL Albumin 4.1 3.5 - 5.0 g/dL [facility] DEPARTMENT OF PATHOLOGY AND GENOMIC [facility] A/G ratio 1.5 0.7 - 3.8 [facility] DEPARTMENT OF PATHOLOGY AND GENOMIC [facility] Alkaline phosphatase 62 40 - 129 U/L [facility] DEPARTMENT OF PATHOLOGY AND GENOMIC MEDICINE AST 16 10 - 50 U/L [facility] DEPARTMENT OF PATHOLOGY AND GENOMIC MEDICINE ALT 11 5 - 50 U/L [facility] DEPARTMENT OF PATHOLOGY AND Zin.gl [facility] Total bilirubin 0.4 0.0 - 1.2 mg/dL [facility] DEPARTMENT OF PATHOLOGY AND [employer]in[employer]gl [facility] Specimen Plasma specimen Performing Organization Address [facility] Phone Number [facility] DEPARTMENT OF PATHOLOGY AND [address] [place] [address] [place] [address] [facility] Partial thromboplastin time, activated (05/02/2018 10:03 AM CDT) PTT 34.9 23.0 - 36.0 sec [facility] DEPARTMENT OF Comment: PATHOLOGY AND [facility] PTT therapeutic range for unfractionated heparin is MEDICINE 61.0-112.0 seconds which corresponds to Anti-Xa 0.3-0.7 U/ml. Specimen Blood Performing Organization Address [facility] Phone Number [facility] AND [address] [place] [address] [place] [address] [facility] D-dimer (05/02/2018 10:03 AM CDT) D-dimer <0.27 0.00 - 0.40 ug/mL FEU [facility] DEPARTMENT OF Comment: PATHOLOGY AND GENOMIC Units [...] and malignancies. Specimen Blood Performing Organization Address [facility] [place]/[facility] Phone Number [facility] DEPARTMENT OF PATHOLOGY AND [address] [place] [address] [facility] Creatine kinase, total (CPK) (05/02/2018 10:03 AM CDT) Creatine kinase 150 39 - 308 U/L [facility] DEPARTMENT OF PATHOLOGY AND [facility] Specimen Plasma specimen Performing Organization Address [facility] Phone Number [facility] DEPARTMENT OF PATHOLOGY AND [address] [place] [address] [facility] XR Chest 1 Vw Portable (05/02/2018 9:42 AM CDT) Narrative Performed At EXAMINATION:XR CHEST 1 VW PORTABLE RADIANT CLINICAL HISTORY:chest pain COMPARISON:Determined 2014 FINDINGS: The heart is normal in size. The mediastinum is unremarkable. The lungs are clear. A right-sided ported central catheter is in place its tip projects the superior vena cava above the right atrium IMPRESSION: No acute finding is visualized [id number] Procedure Note Hm Interface, Radiology Results Incoming [...] atrium IMPRESSION: No acute finding is visualized [id number] Performing Organization Address [facility] [place]/[facility]/Zipcode Phone Number [facility] [address] [place] [address] ECG ED Preliminary Interpretation - NOT AN ORDER (05/02/2018 9:27 AM CDT) Narrative Performed At Saeed Diana MD 05/02/20187:36 PM ECG ED Preliminary Interpretation - Not an Order Performed by: SAEED DIANA Authorized by: SAEED DIANA ECG reviewed by ED Physician in the absence of a blocker and cutter contact lens: yes (read at 0921) Interpretation: Interpretation: normal Rate: ECG rate:87 ECG rate assessment: normal Rhythm: Rhythm: sinus rhythm Ectopy: Ectopy: none QRS: QRS axis:Normal Conduction: Conduction: normal ST segments: ST segments:Normal T waves: T waves: normal Direct Tish' (MAURI) (12/14/2017 10:28 AM PRODUCTION ARTIST) Direct Tish POS [facility] DEPARTMENT OF PATHOLOGY Comment: AND GENOMIC MEDICINE testing performed at [facility], called kian in 3main with critical 12/14/17 at 2000 Performing Organization Address City/[facility] Phone Number [facility] DEPARTMENT OF PATHOLOGY AND [address] [place] [address] [place] [address] GENOMIC MEDICINE Antibody identification (12/14/2017 10:28 AM PRODUCTION ARTIST) Antibody ID POS, Anti-EComment: ADDING [facility] DEPARTMENT OF PATHOLOGY AND [facility] GENOMIC MEDICINE Antibody ID POS, Anti-KellComment: ADDING [facility] DEPARTMENT OF PATHOLOGY AND [facility] GENOMIC MEDICINE Antibody ID POS, Bg AntibodyComment: [facility] DEPARTMENT OF PATHOLOGY AND ADDING [facility] GENOMIC MEDICINE Performing Organization Address [facility] [place]/[facility] Phone Number [facility] DEPARTMENT OF PATHOLOGY AND [address] [place] [address] [place] [address] GENOMIC MEDICINE Prepare RBC, 2 Units (12/14/2017 10:28 AM PRODUCTION ARTIST) Product name Red Blood Cells -1, [facility] DEPARTMENT OF Leukored PATHOLOGY AND GENOMIC MEDICINE Unit number [id number] [facility] DEPARTMENT OF PATHOLOGY AND GENOMIC MEDICINE Product code [id number] [facility] DEPARTMENT OF PATHOLOGY AND GENOMIC MEDICINE Dispense status Transfused [facility] DEPARTMENT OF PATHOLOGY AND GENOMIC MEDICINE Blood expiration date [facility] DEPARTMENT OF PATHOLOGY AND GENOMIC MEDICINE Blood type code 6200 [facility] DEPARTMENT OF PATHOLOGY AND GENOMIC MEDICINE Blood type A POSITIVE [facility] DEPARTMENT OF PATHOLOGY AND GENOMIC MEDICINE Product name Red Blood Cells -1, [facility] DEPARTMENT OF Leukored PATHOLOGY AND GENOMIC MEDICINE Unit number [id number] [facility] DEPARTMENT OF PATHOLOGY AND GENOMIC MEDICINE Product code [id number] [facility] DEPARTMENT OF PATHOLOGY AND GENOMIC MEDICINE Dispense status Transfused [facility] DEPARTMENT OF PATHOLOGY AND GENOMIC MEDICINE Blood expiration date [facility] DEPARTMENT OF PATHOLOGY AND GENOMIC MEDICINE Blood type code 6200 [facility] DEPARTMENT OF PATHOLOGY AND GENOMIC MEDICINE Blood type A POSITIVE [facility] DEPARTMENT OF PATHOLOGY AND GENOMIC MEDICINE Performing Organization Address [facility] [place]/[facility] Phone Number [facility] DEPARTMENT OF PATHOLOGY AND [address] [place] [address] [place] [address] GENOMIC MEDICINE Type and screen (12/14/2017 10:28 AM PRODUCTION ARTIST) ABO grouping AB [facility] DEPARTMENT OF PATHOLOGY AND GENOMIC MEDICINE Rh type POS [facility] DEPARTMENT OF PATHOLOGY AND GENOMIC MEDICINE Antibody screen POS [facility] DEPARTMENT OF PATHOLOGY AND GENOMIC MEDICINE Specimen Blood Performing Organization Address [facility] [place]/[facility] Phone Number [facility] DEPARTMENT OF PATHOLOGY AND [address] [place] [address] [place], [place] [address] [place] [address] Vancomycin level, trough (12/14/2017 8:35 AM PRODUCTION ARTIST) Vancomycin, trough 6.1 (L) 10.0 - 20.0 ug/mL [facility] DEPARTMENT OF Comment: PATHOLOGY AND GENOMIC Therapeutic Ranges: MEDICINE Peak 30.0 - 40.0 ug/mL Uqfssu52.0 - 20.0 ug/mL Specimen Serum Performing Organization Address [facility] Phone Number [facility] DEPARTMENT OF PATHOLOGY AND [address] [place] [address] [place] [address] [facility] CT Angiogram Pe Chest (12/13/2017 2:28 PM PRODUCTION ARTIST) Narrative Performed At EXAMINATION: [facility] CT ANGIOGRAM PE CHEST CLINICAL HISTORY:47 [...] 2. Mild scarring at the lung bases. [id number] Procedure Note Interface, Radiology Results Incoming - 12/13/2017 2:52 PM PRODUCTION ARTIST EXAMINATION: CT ANGIOGRAM PE CHEST CLINICAL HISTORY:47 [...] 2. Mild scarring at the lung bases. [id number] Performing Organization Address City/[facility] Phone Number [facility] [address] [place] [address] Blood culture, aerobic & anaerobic (12/13/2017 10:40 AM PRODUCTION ARTIST) Blood culture isolate No growth after 5 days of incubation. [facility] DEPARTMENT OF Comment: PATHOLOGY AND GENOMIC Specimen Information MEDICINE Specimen Source: Blood Specimen Site: Line, port-a-cath Right Specimen Blood - Line, port-a-cath Performing Organization Address City/State/Zipcode Phone Number [facility] DEPARTMENT OF PATHOLOGY AND [address] [place] [address] GENOMIC MEDICINE Influenza antigen (12/13/2017 10:10 AM PRODUCTION ARTIST) Influenza antigen Negative for Influenza A/B antigen. [facility] DEPARTMENT OF Comment: PATHOLOGY AND GENOMIC Specimen Information MEDICINE Specimen Source: Nares Specimen Site: Not specified Specimen Nares - Not specified Performing Organization Address City/[facility] Phone Number [facility] DEPARTMENT OF PATHOLOGY AND [address] [place] [address] [facility] Basic metabolic panel (12/13/2017 5:10 AM PRODUCTION ARTIST)Only the most recent of2 resultswithin the time period is included. Sodium 133 (L) 135 - 148 mEq/L [facility] DEPARTMENT OF PATHOLOGY AND GENOMIC MEDICINE Potassium 4.1 3.5 - 5.0 mEq/L [facility] DEPARTMENT OF PATHOLOGY AND GENOMIC MEDICINE Chloride 97 (L) 98 - 112 mEq/L [facility] DEPARTMENT OF PATHOLOGY AND GENOMIC MEDICINE CO2 24 24 - 31 mEq/L [facility] DEPARTMENT OF PATHOLOGY AND GENOMIC MEDICINE Anion gap 12 7 - 15 mEq/L [facility] DEPARTMENT OF Comment: PATHOLOGY AND GENOMIC Starting from January , anion gap calculation MEDICINE no longer incorporates potassium. Please note the change. BUN 20 6 - 20 mg/dL [facility] DEPARTMENT OF PATHOLOGY AND GENOMIC MEDICINE Creatinine 1.3 (H) 0.7 - 1.2 mg/dL [facility] DEPARTMENT OF PATHOLOGY AND GENOMIC MEDICINE Glucose 119 (H) 65 - 99 mg/dL [facility] DEPARTMENT OF PATHOLOGY AND GENOMIC MEDICINE Calcium 8.8 8.3 - 10.2 mg/dL [facility] DEPARTMENT OF PATHOLOGY AND GENOMIC MEDICINE Specimen Plasma specimen Performing Organization Address City/State/Zipcode Phone Number [facility] AND [address] [place] [address] [facility] Lipid panel (12/12/2017 2:47 PM PRODUCTION ARTIST) Cholesterol 189 <200 mg/dL [facility] DEPARTMENT OF PATHOLOGY AND GENOMIC MEDICINE Triglycerides 65 <150 mg/dL [facility] DEPARTMENT OF PATHOLOGY AND GENOMIC MEDICINE HDL cholesterol 72 >40 mg/dL [facility] DEPARTMENT OF PATHOLOGY AND GENOMIC MEDICINE LDL cholesterol 116 (H)Comment: Result <100 mg/dL [facility] obtained by direct LDL PATHOLOGY AND GENOMIC measurement MEDICINE Lipid panel interpretation SeeBelow [facility] DEPARTMENT OF Comment: PATHOLOGY AND GENOMIC Total Cholesterol (mg/dL) MEDICINE <200 Desirable 142-283Klemrdgivh-ynkr >=240High Triglycerides (mg/dL) <150 Normal 601-149Mpnwkqwrib-fxnr 200-499High >=500Very high HDL Cholesterol (mg/dL) <40Low (male) <40Low (female) LDL Cholesterol (mg/dL) <100 Optimal 100-129Near or above optimal [phone]-qsmh 160-189High >=190Very high Risk Catergories that modify [...] Phone Number [facility] DEPARTMENT OF PATHOLOGY AND [address] [place] [address] [employer]gl MEDICINE after 09/17/2017 Insurance Payer Benefit Plan / Group Subscriber ID Type Phone Address [employer] EXCHANGE BLUE ADVANTAGE HMO EXCH xxxxxxxxxxxx Exchange (Work) [phone] Advance Directives Patient has advance care planning documents, and code status on file. For more information, please contact:Owen Ruggiero[address] [place] [address] Code Status Date Activated Date Inactivated Comments Full Code 11/26/2017 10:45 PM 11/28/2017 1:56 AM Code Status decision reached by: Patient
--- OUTSIDE RECORDS SUMMARY | 2018-09-18 08:46 | XMS REPORT | Continuity of Care Document ---
[...] 10/14/2017 Data pain<sup>1</sup> 014 migrated [place],M from [facility] [place] [facility] on 06/04/15. Lumbar Active Problem 10/14/2017 Data radiculopathy<sup>2 014 migrated [place],M </sup> from [employer] [facility] on 06/04/15. Spinal stenosis of Active Problem 10/14/2017 Data lumbar 014 migrated [place],M region<sup>3</sup> from [employer] [facility] on 06/04/15. Low back Active Problem 09/08/2017 Data pain<sup>1</sup> 014 migrated [place],M from [facility] on 06/04/15. Center Lumbar Active Problem 09/08/2017 Data MH radiculopathy<sup>2 014 migrated [place],M </sup> from [facility] on 06/04/15. Center Spinal stenosis of Active Problem 09/08/2017 Data lumbar 014 migrated [place],M region<sup>3</sup> from [facility] on 06/04/15. [place] Chest pain Active Problem 10/14/2017 MH 010 [place],M H [place] Chest pain Active Problem 09/08/2017 MH 010 [place],M H [facility] Pain / sensation Active Problem 10/14/2017 MH finding(<span 010 [place],M ID="[id number]">Sta [facility] ble</span>) Pain / sensation Active Problem 09/08/2017 MH finding(<span 010 [place],M ID="[id number]">Sta [facility] ble</span>) [facility] Anxiety Active Problem 10/14/2017 MH 010 [place],M H [place] Hypertension Active Problem 10/14/2017 MH 010 [place],M H [place] Sinus tachycardia Active Problem 10/14/2017 MH 010 [place],M H [place] Anxiety Active Problem 09/08/2017 MH 010 [place],M H [facility] Hypertension Active Problem 09/08/2017 MH 010 [place],M H [facility] Sinus tachycardia Active Problem 09/08/2017 MH 010 [place],M [facility] Back pain Active Problem 10/14/2017 MH [place],M H [place] Depression Resolved Problem 10/14/2017 [place],M H [place] Depression (<span Active Problem 10/14/2017 MH ID="[id number]">Co [place],M nfirmed</span>) [facility] 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 [place],M H [place] Hyperlipidemia Active Problem 10/14/2017 MH [place] H [place] Pain Active Problem 10/14/2017 MH [place],M H [place] Pericarditis Resolved Problem 10/14/2017 MH [place],M H [place] Pulmonary embolism Resolved Problem 10/14/2017 MH [place],M H [place] SVT - Resolved Problem 10/14/2017 Supraventricular [place],M tachycardia H [place] Back pain Active Problem 09/08/2017 MH [place],M H [facility] Depression Resolved Problem 09/08/2017 MH [place],M H [facility] Depression (<span Active Problem 09/08/2017 MH ID="[id number]">Co [place],M nfirmed</span>) [facility]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 [facility] Hyperlipidemia Active Problem 09/08/2017 [facility] Pain Active Problem 09/08/2017 [facility] Pericarditis Resolved Problem 09/08/2017 [facility] Pulmonary embolism Resolved Problem 09/08/2017 [facility] SVT - Resolved Problem 09/08/2017 Supraventricular [facility] CHEST PAIN, Active [facility] [place] Medications Medication Details Route Status Patient Ordering Order Source Instructions Provider Date Docusate 100 mg, 1 Inactive cap, Route: 018 [place] PO, Drug form: CAP, BID, Dosing Weight 81.818, kg, Start date: 10/11/17 17:00:00 [employer], Duration: 30 day, Stop date: 11/10/17 9:00:00 CSTNotes: (Same as: Colace) (Do Not Crush) Ondansetron 4 mg, 2 mL, Inactive Route: IVP, 018 [place] Drug form: INJ, Q6H, Dosing Weight 81.818, kg, PRN Nausea & Vomiting, Start date: 10/11/17 15:19:00 [employer], Duration: 30 day, Stop date: 11/10/17 15:18:00 [...] 10 tab, 0 MG Oral Tablet Refill(s) [[place] 10/325] heparin 500 mL, Inactive [facility] additive 25,000 Rate: 26.06 017 Medical unit [18 ml/hr, Center unit/kg/hr] + Infuse over: Premix Diluent 19.2 hr, Dextrose 5% 500 Route: IVPB, mL Dosing Weight 72.39 kg, Total Volume: 500 mL, Start date: 11/20/16 5:23:00 [employer], Duration: 30 day, Stop date: 12/20/16 5:22:00 CDT Heparin 40 Pharmacy To Inactive [facility] unit/kg [facility], [facility] Medical (Heparin Dosing Route: IVP, Center Weight) PRN, Drug form: INJ, PRN, Heparin Protocol, Start date: 11/20/16 5:23:00 [employer] Stop date: 12/20/16 6:22:00 CDT, 30 day Heparin 80 Pharmacy To Inactive [facility] unit/kg [facility], [facility] Medical (Heparin Dosing Route: IVP, Center Weight) PRN, Drug form: INJ, PRN, Heparin Protocol, Start date: 11/20/16 5:23:00 [employer] Stop date: 12/20/16 6:22:00 CDT, 30 day Dilaudid 1 mg, 0.5 Inactive [facility] mL, Route: 017 Medical IVP, Drug Center form: INJ, ONCE, Dosing Weight 81.818, kg, Priority: STAT, Start date: 11/20/16 5:05:00 [employer], Stop date: 11/20/16 5:05:00 CSTNotes: Same as: [...] Assertion Sleep Propensity Active walking to adverse [place] reactions to drug morphine Assertion Rash Drug Active allergy [place] Toradol Assertion rash Drug Active allergy [place] Immunizations Immunization Date Given Site Status Last Comments Source Updated influenza virus 05/12/2014 completed Man Admin Note: vaccine, received at [facility] inactivated<sup>1 [facility] </sup> influenza virus 05/12/2014 completed Man Admin Note: vaccine, received at [facility] inactivated<sup>1 [facility] </sup> [facility] tuberculin 02/21/2010 Left [facility] purified protein [facility], derivative [place] tuberculin 02/21/2010 Left Arm completed [facility] purified protein [facility], derivative [facility] Results Order Name Results Value Reference Date Interpretation Comments Source Range CARDIAC Troponin-T null 0.000 - 11/20 [facility] ENZYMES 0.100 /[address] [place] [address] CARDIAC Total CK 81 unit/L 12 - 191 11/20 [facility] ENZYMES [address] CARDIAC Troponin-I null 0.00 - 11/20 [facility] ENZYMES 0.40 /2016 [facility] CARDIAC CK MB Index 0.7 0.0 - 2.5 11/20 [facility] ENZYMES /[address] [place] [address] CARDIAC CK MB 0.6 ng/mL 0.5 - 3.6 11/20 [facility] ENZYMES /[address] [place] [address] CHEM PANEL Magnesium 1.8 mg/dL 1.8 - 2.4 11/20 [facility] Lvl /[address] [place] [address] CHEM PANEL Phosphorus 2.5 mg/dL 2.5 - 4.5 11/[address] ELECTROLYT AGAP 10.3 meq/L 10.0 - 11/20 [facility] ES 20.0 [facility] ELECTROLYT B/C Ratio 13 6 - 25 11/[address] [facility] /2017 [facility] ELECTROLYT A/G Ratio 1.2 0.7 - 1.6 11/[address] [facility] /2017 [facility] ELECTROLYT Globulin 3.3 g/dL 2.7 - 4.2 11/20 [facility]2017 [facility] ELECTROLYT eGFR 105 11/20 Result Comment: The eGFR is calculated using the CKD-EPI formula. In most young, healthy individuals the eGFR will be >90 mL/ min/1.73m2. The eGFR declines with age. An eGFR of 60-89 may be normal in [facility] mL/min/1.7 /2016 some populations, particularly the elderly, for whom the CKD-EPI formula has not been extensively validated. Use of the eGFR is not recommended in the following populations: [address] Individuals with unstable creatinine concentrations, including [...] Lvl 8.4 mg/dL 8.5 - 10.5 11/[address] [facility] ELECTROLYT Chloride Lvl 107 meq/L 95 - 109 11/[address] ELECTROLYT BUN 11 mg/dL 7 - 22 11/[address] ELECTROLYT Glucose Lvl 100 mg/dL 70 - 99 11/[address] ELECTROLYT Potassium 3.3 meq/L 3.5 - 5.1 11/20 [facility] ELECTROLYT Sodium Lvl 140 meq/L 135 - 145 11/[address] [facility] [address] [place] [address] ELECTROLYT Creatinine 0.86 mg/dL 0.50 - 11/[address] [facility] Lvl 1. [facility] ELECTROLYT CO2 26 meq/L 24 - 32 11/[address] ELECTROLYT AST 27 unit/L 0 - 37 11/[address] [facility] [address] [place] [address] ELECTROLYT ALT 22 unit/L 0 - 65 11/[address] [facility] [address] [place] [address] ELECTROLYT Albumin Lvl 4.0 g/dL 3.5 - 5.0 11/[address] [facility] [address] [place] [address] ELECTROLYT Bili Total 0.5 mg/dL 0.2 - 1.3 11/[address] ELECTROLYT Total 7.3 g/dL 6.4 - 8.4 11/[address] [facility] ELECTROLYT Alk Phos 78 unit/L 39 - 136 11/[address] HEMATOLOGY Anti-Xa 0.67 11/20 [facility] Unfractionat [iU]/mL /2016 [facility] HEMATOLOGY Monocytes # 0.6 K/CMM 0.0 - 0.8 11/20 MH [facility] HEMATOLOGY Lymphocytes 1.6 K/CMM 1.0 - 5.5 11/20 [place] # /2016 [facility] HEMATOLOGY Segs-Bands # 3.1 K/CMM 1.5 - 8.1 11/20 [facility] HEMATOLOGY Basophils 1.6 % 0.0 - 1.0 11/20 [facility] HEMATOLOGY Eosinophils 0.1 % 0.0 - 4.0 11/20 [facility] HEMATOLOGY Basophils # 0.1 K/CMM 0.0 - 0.2 11/20 [facility] HEMATOLOGY Microcyte 1+ None [facility] 5:39 AM[facility] HEMATOLOGY Lymphocytes 29.5 % 20.0 - 11/20 40.0 [facility] HEMATOLOGY Monocytes 10.6 % 2.0 - 12.0 11/20 [facility] HEMATOLOGY Segs 58.2 % 45.0 - 11/20 75.0 [facility] HEMATOLOGY INR 1.11 0.85 - 11/20 1.17 [facility] HEMATOLOGY PT 14.5 s 12.0 - 11/20 14.7 [facility] HEMATOLOGY PTT 32.9 s 22.9 - 11/20 35.8 [facility] HEMATOLOGY MCV 76.5 fL 80.0 - 11/20 94.0 [facility] HEMATOLOGY Hct 29.2 % 42.0 - 11/20 54.0 [facility] HEMATOLOGY MCH 24.1 pg 27.0 - 11/20 31.0 [facility] HEMATOLOGY Platelet 316 K/CMM 133 - 450 11/20 [facility] HEMATOLOGY MCHC 31.5 g/dL 32.0 - 02 [place] 36.0 2017 [facility] HEMATOLOGY RDW 20.7 % 11.5 - 02 14.5 [facility] HEMATOLOGY WBC 5.3 K/CMM 3.7 - 10.4 02 [facility] HEMATOLOGY Hgb 9.2 g/dL 14.0 - 11/20 18.0 2017 [facility] HEMATOLOGY RBC 3.82 M/CMM 4.70 - 11/20 [place] 6.10 [facility] HEMATOLOGY MPV 6.8 fL 7.4 - 10.4 11/[address] Chest Chest Clinical Indication: Chest pain; [...] used for the exam. FINAL REPORT Dose: FNV=545.4 mGy-cm FINDINGS: VASCULAR STRUCTURES: No pulmonary thromboemboli [...] Source Temperature Oral (F) 98.1 F 11/20/2016 [facility] Systolic (mm Hg) 142 11/20/2016 [facility] Diastolic (mm Hg) 99 11/20/2016 [facility] Respitory Rate 19 11/20/2016 [facility] Temperature Oral (F) 97.9 F 11/20/2016 [facility] Respitory Rate 18 11/20/2016 [facility] Systolic (mm Hg) 152 11/20/2016 [facility] Diastolic (mm Hg) 88 11/20/2016 [facility] Weight 81.818 11/20/2016 [facility] BMI Calculated 28.25 11/20/2016 [facility] Height 170.18 cm 11/20/2016 [facility] Respitory Rate 18 10/12/2016 [facility] Systolic (mm Hg) 132 10/12/2016 [facility] Diastolic (mm Hg) 67 10/12/2016 [facility] Systolic (mm Hg) 139 10/11/2016 [facility] Diastolic (mm Hg) 65 10/11/2016 [facility] Respitory Rate 18 10/11/2016 [facility] BMI Calculated 28.25 10/11/2016 [facility] Weight 81.818 10/11/2016 [facility] Height 170.18 cm 10/11/2016 [facility] Temperature Oral (F) 98.2 F 10/11/2016 [facility] Heart Rate 96 10/11/2016 [facility] Respitory Rate 18 10/11/2016 [facility] Systolic (mm Hg) 128 10/11/2016 [facility] Diastolic (mm Hg) 93 10/11/2016 [facility] Weight 176 07/18/2014 [facility] Height 67 07/18/2014 [facility] Temperature Oral (F) 100.3 F 07/18/2014 [facility] Heart Rate 108 07/18/2014 [facility] Systolic (mm Hg) 145 07/18/2014 [facility] Diastolic (mm Hg) 105 07/18/2014 [facility] Encounters Location Location Encounter Encounter Reason Attending ADM DC Status Source Details Type Number For Provider Date Date Visit [facility] Office [id number] Lenny 07/18 07/18 [facility] Neuroscienc Visit [id number] Avni DALEY /2013 [facility] Lab Report [id number] Lenny 07/20 07/20 [place] [id number] Avni DALEY /2013 [facility] [place] [facility] Emergency [id number] Silas 10/11 10/12 Puneet Moore [facility] Inpatient [id number] March Karena 11/20 11/20 [facility] Observ[facility] [id number] Quratdariel 02/18 02/18 Puneet Ward /2016 [facility] Inpatient [id number] Valentin 09/06 09/06 [facility] [id number] González 10/11 10/11 KEREN [place] 1 [facility]ur [facility] Procedures Procedure Code Date Perfomer Comments Source Cholecystectomy [id number] [facility] Laminectomy and [id number] [facility] discectomy Procedure on back [id number] [facility] Cholecystectomy [id number] [facility] Laminectomy and [id number] [facility] discectomy Procedure on back [id number] [facility] Cholecystectomy [id number] [facility] Laminectomy and [id number] [facility] discectomy [facility] Procedure on back [id number] [facility]
--- OUTSIDE RECORDS SUMMARY | 2018-09-18 08:46 | XMS REPORT | Clinical Summary ---
:1970 Author Organization [facility] Address [address] [place] [address] Care Team Providers Name Role Phone Blanco [...] MD Ly Obesity (BMI 30-39.9); Hypokalemia 09/02/2018 Orders Only General Internal Medicine 09/02/2018 Travel 05/24/2018 Emergency Emergency Medicine Ros [...] Internal Winston Daniels 02/01/2018 Medicine MD Kin Pritchard, Wiliam Roth MD 01/31/2018 Orders Only Yoseph Ortega, ADRIANA 01/24/2018 Orders Only General Internal Medicine 01/22/2018 - Hospital Encounter General Internal Charissa, Mustaq 01/25/2018 Medicine MD Dominique Cespedes, MD Jeremiah Prieto Bhagwat Purushottam, MD Aly, Wiliam Roth MD after 09/17/2017 Family History Medical History Relation [...] Taken Blood Pressure 125/79 09/03/2018 7:16 AM 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 Pulse 80 09/03/2018 7:16 AM MOTORCYCLE 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 Temperature 35.7 C (96.2 F) 09/03/2018 7:16 AM MOTORCYCLE 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 Respiratory Rate 17 09/03/2018 7:16 AM MOTORCYCLE 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 Oxygen Saturation 100% 09/03/2018 7:16 AM MOTORCYCLE 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 Inhaled Oxygen Concentration - - Weight 90.7 kg (200 lb) 09/02/2018 10:26 AM MOTORCYCLE 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 Height 170.2 cm (5' 7") 09/02/2018 10:26 AM MOTORCYCLE 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 Body Mass Index 31.32 09/02/2018 10:26 AM MOTORCYCLE 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 Plan of Treatment Health Maintenance Due Date Last Done Comments INFLUENZA VACCINE 07/11/2018 Procedures Procedure Name Priority Date/Time Associated Comments Diagnosis REPORT OF PROCEDURE - 09/07/2018 9:22 ENDOSCOPY SCAN AM MOTORCYCLE 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 RHYTHM STRIP - SCAN 09/07/2018 9:22 AM MOTORCYCLE 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 (MANUAL DIFFERENTIAL) Routine 09/03/2018 8:16 Results for this AM MOTORCYCLE 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 procedure are in the results section. CBC W/PLT COUNT & AUTO Routine 09/03/2018 8:16 Results for this DIFFERENTIAL AM MOTORCYCLE 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 procedure are in the results section. CBC W/PLT COUNT & AUTO Routine 09/03/2018 8:16 Results for this DIFFERENTIAL AM MOTORCYCLE 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 procedure are in the results section. CBC W/PLT COUNT & AUTO STAT 09/03/2018 3:33 Results for this DIFFERENTIAL AM MOTORCYCLE 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 procedure are in the results section. CBC W/PLT COUNT & AUTO STAT 09/03/2018 3:33 Results for this DIFFERENTIAL AM MOTORCYCLE 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 procedure are in the results section. HEMOGLOBIN A1C STAT 09/03/2018 3:33 Results for this AM MOTORCYCLE 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 procedure are in the results section. LIPID PANEL STAT 09/03/2018 3:33 Results for this AM MOTORCYCLE 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 procedure are in the results section. BASIC METABOLIC PANEL (7) STAT 09/03/2018 3:33 Results for this AM MOTORCYCLE 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 procedure are in the results section. TROPONIN I STAT 09/03/2018 3:33 Results for this AM MOTORCYCLE 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 procedure are in the results section. TROPONIN I STAT 09/02/2018 2:50 Results for this PM MOTORCYCLE 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 procedure are in the results section. CT CHEST PE TEST DESIGN STAT 09/02/2018 7:51 Results for this AM MOTORCYCLE 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 procedure are in the results section. XR CHEST 1 VIEW STAT 09/02/2018 6:54 Results for this PORTABLE/BEDSIDE AM MOTORCYCLE 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 procedure are in the results section. CBC W/PLT COUNT & AUTO STAT 09/02/2018 6:39 Results for this DIFFERENTIAL AM MOTORCYCLE 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 procedure are in the results section. B-TYPE NATRIURETIC FACTOR STAT 09/02/2018 6:39 Results for this (BNP) AM MOTORCYCLE 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 procedure are in the results section. PT/APTT STAT 09/02/2018 6:39 Results for this AM MOTORCYCLE 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 procedure are in the results section. CBC W/PLT COUNT & AUTO STAT 09/02/2018 6:39 Results for this DIFFERENTIAL AM MOTORCYCLE 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 procedure are in the results section. TROPONIN I STAT 09/02/2018 6:39 Results for this AM MOTORCYCLE 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 procedure are in the results section. MAGNESIUM STAT 09/02/2018 6:39 Results for this AM MOTORCYCLE 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 procedure are in the results section. BASIC METABOLIC PANEL (7) STAT 09/02/2018 6:39 Results for this AM MOTORCYCLE 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 procedure are in the results section. ED ECG INTERPRETATION Routine 09/02/2018 6:33 Results for this AM MOTORCYCLE 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 procedure are in the results section. REPORT [...] 366 ms QTC Calculation(Bazett) 430 ms P Williams 44 degrees R Williams 29 degrees T Williams 12 degrees Sinus rhythm with occasional Premature ventricular complexes Otherwise normal ECG TROPONIN I Routine 01/22/2018 1:16 PM CDT CREATINE KINASE (CK), Routine 01/22/2018 1:16 PM CDT Results for this procedure TOTAL AND MB are in the results section. after 09/17/2017 Results EKG-SCANNED (09/07/2018 9:22 AM MOTORCYCLE 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)Only the most recent of6 resultswithin the time period is included. Narrative Performed At RHYTHM STRIP - SCAN (09/07/2018 9:22 AM MOTORCYCLE 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)Only the most recent of4 resultswithin the time period is included. Narrative Performed At Manual Differential (09/03/2018 8:16 AM MOTORCYCLE 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)Only the most recent of9 resultswithin the time [...] (manual) 0.20 0.00 - 0.50 K/L [facility] Total Counted 100 [facility] WBC Morphology Normal [facility] RBC Morphology Normal [facility] Large Platelet Present [facility] Specimen Blood - Central Venous Line Performing Organization Address City/State/Zipcode Phone Number [facility] [address] [place] [address] CBC with platelet count + automated diff (09/03/2018 8:16 AM MOTORCYCLE 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)Only the most recent of12 resultswithin the time period is included. WBC 4.9 4.0 - 10.0 K/L [facility] RBC 3.69 (L) 4.20 - 5.80 M/L [facility] Hemoglobin 8.5 (L) 13.0 - 16.8 GM/DL [facility] Hematocrit 28.7 (L) 36.0 - 50.0 % [facility] MCV 77.8 (L) 82.0 - 99.0 fL [facility] MCH 23.0 (L) 27.0 - 33.0 pg [facility] MCHC 29.6 (L) 32.0 - 36.0 GM/DL [facility] RDW 18.6 (H) 12.0 - 15.0 % [facility] Platelets 305 150 - 430 K/CU MM [facility] MPV 9.1 6.0 - 11.5 fL [facility] nRBC 0 0 - 0 /100 WBC [facility] Specimen Blood - Central Venous Line Performing Organization Address City/[facility]/Zipcode Phone Number [facility] [address] [place] [phone] Troponin I (09/03/2018 3:33 AM MOTORCYCLE 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)Only the most recent of11 resultswithin the time period is included. Troponin I <0.03 0.00 - 0.15 ng/mL [facility] Specimen Blood Performing Organization Address City/[facility] Phone Number [facility] [address] [place] [address] [phone] Hemoglobin A1c (09/03/2018 3:33 AM MOTORCYCLE 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) Hemoglobin A1C 5.7 4.3 - 6.1 % [facility] Specimen Blood Performing Organization Address City/[facility]/Zipcode Phone Number [facility] [address] [place] [phone] Lipid panel (09/03/2018 3:33 AM MOTORCYCLE 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)Only the most recent of2 resultswithin the time period is included. Triglycerides 122 mg/dL [facility] Cholesterol 201 mg/dL [facility] HDL 39 mg/dL [facility] LDL Calculated 138 mg/dL [facility] Specimen Blood Narrative Performed At Triglyceride Reference Range: [facility] Low Risk <150 [id number] High Risk 200-499 Very High Risk>=500 Cholesterol Reference Range: Low Risk <200 [id number] High Risk>240 HDL Cholesterol Reference Range: Low Risk >=60 High Risk <40 LDL Cholesterol Reference Range: Optimal<100 Near [id number] [id number] Szii213-615 Very High >=190 Performing Organization Address [facility] Phone Number [facility] [address] [place] [address] [phone] Basic metabolic panel (09/03/2018 3:33 AM MOTORCYCLE 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)Only the most recent of10 resultswithin the time [...] DIALYSIS PATIENTS. Specimen Blood Performing Organization Address [facility] Number [facility] [address] [place] [phone] CT chest PE test design (09/02/2018 7:51 AM MOTORCYCLE 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)Only the most recent of4 resultswithin the time period is included. Narrative Performed At FINAL REPORT [employer] INDICATION: 48-year-old male with chest pain. Evaluate [...] MD Report Verified Date/Time:09/02/2018 08:14:32 Reading Location: [facility] Diagnostic Imaging Reading Room - [place] [address] Procedure Note Interface, External Ris In - 09/02/2018 8:16 AM MOTORCYCLE 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 FINAL REPORT INDICATION: 48-year-old male with chest [...] Report Verified Date/Time: 09/02/2018 08:14:32 Reading Location: [facility] Diagnostic Imaging Reading Room - [place] [address]120 Performing Organization Address City/State/Zipcode Phone Number [facility] XR chest 1 view portable / bedside (09/02/2018 6:54 AM MOTORCYCLE 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)Only the most recent of2 resultswithin the time [...] MD Report Verified Date/Time:09/02/2018 07:10:11 Reading Location: [facility] C013Y CT Body Reading Room Procedure Note Interface, External Ris In - 09/02/2018 7:12 AM MOTORCYCLE 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 FINAL REPORT Chest one view. Clinical history: [...] Report Verified Date/Time: 09/02/2018 07:10:11 Reading Location: [facility] C013Y CT Body Reading Room Performing Organization Address City/[facility] Phone Number [facility] PT/PTT (09/02/2018 6:39 AM MOTORCYCLE 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)Only the most recent of4 resultswithin the time period is included. Protime 11.5 9.3 - 12.0 sec [facility] INR 1.1 <=5.9 [facility] PTT 139.2 (HH) 23.0 - 35.0 sec [facility] Specimen Blood - Line, Venous Narrative Performed At RECOMMENDED COUMADIN/WARFARIN INR THERAPY RANGES [facility] STANDARD DOSE: 2.0 - 3.0 Includes: PROPHYLAXIS for venous thrombosis, systemic embolization; TREATMENT for venous thrombosis and/or pulmonary embolus. HIGH RISK: Target INR is 2.5-3.5 for patients with mechanical heart valves. Final Information (Auto Output) Final Information (Auto Output) Final Information (Auto Output) Performing Organization Address City/[facility] Phone Number [address] [address] [phone] B-type Natriuretic Factor (BNP) (09/02/2018 6:39 AM MOTORCYCLE 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)Only the most recent of4 resultswithin the time period is included. BNP 150 (H) 0 - 100 pg/mL [facility] Specimen Blood - Line, Venous Performing Organization Address [facility] Phone Number [address] [phone] Magnesium (09/02/2018 6:39 AM MOTORCYCLE 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)Only the most recent of2 resultswithin the time period is included. Magnesium 2.2 1.5 - 3.0 mg/dL [facility] Specimen Blood - Line, Venous Performing Organization Address [facility] Phone Number [address] [phone] ECG/EKG Interpretation (09/02/2018 6:33 AM MOTORCYCLE 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)Only the most recent of3 resultswithin the time period is included. Narrative Performed At Aleks Robbins DO 09/02/20188:52 AM ECG/EKG Interpretation Date/Time: 09/02/2018 6:28 AM Performed by: Aleks Robbins DO Authorized by: Aleks Robbins DO The ECG was interpreted by ED physician. The ECG is interpreted as sinus tachycardia. Rate is tachycardic. Heart rate is [address] segments normal. Williams is normal. Clinical Impression: non-specific ECGECG reviewed and does not meet STEMI criteria. Patient tolerance: Patient tolerated the procedure well with no immediate complications Lactic acid, venous, whole blood (05/24/2018 2:18 PM CDT)Only the most recent of2 resultswithin the time period is included. Lactate, Venous 1.3 0.5 - 2.2 mmol/L [facility] Specimen Blood Narrative Performed At [facility] Effective 02/12/2016: Units/Reference Range Change New: 0.5-2.2 mmol/LPrevious: 5-18 mg/dL Performing Organization Address [facility] Phone Number [address] [phone] Urinalysis w/Microscopic + Reflex to Culture (05/24/2018 1:51 PM CDT) Color, UA Yellow [facility] Clarity, UA Clear [facility] Specific [place], UA 1.010 1.001 - 1.035 [facility] pH, UA 7.0 5.0 - 8.0 [facility] Protein, UA Negative Negative [facility] Glucose, UA Negative Negative [facility] Ketones, UA Negative Negative [facility] Bilirubin, UA Negative Negative [facility] Blood, UA Negative Negative [facility] Nitrite, UA Negative Negative [facility] Leukocytes, UA Negative Negative [facility] Urobilinogen, UA 0.2 0.2 - 1.0 mg/dL [facility] Bacteria, UA None Seen [facility] RBC, UA None Seen /HPF [facility] WBC, UA <5 /HPF [facility] SQUAMOUS EPITHELIAL None Seen /HPF [facility] Specimen Source [facility] Specimen Urine - Urine, Clean Catch Performing Organization Address [facility] Phone Number [address] [phone] Blood culture (05/24/2018 12:50 PM CDT)Only the most recent of2 resultswithin the time period is included. Result No growth in 5 days [facility] Specimen Blood - Line, Venous Performing Organization Address [facility] Phone Number [address] [address] [phone] Creatine Kinase (CK), Total and MB (not available at [facility] [place]) (2017 9:55 AM CDT)Only the most recent of3 resultswithin the time period is included. Total CK 76 40 - 250 U/L [facility] CK-MB 1.2 0.0 - 4.9 ng/mL [facility] MB Relative Index 1.6 % [facility] Specimen Blood - Line, Venous Narrative Performed At CK-MB Reference Range: [facility] <5 Normal 5-10 Borderline >10Abnormal Performing Organization Address [facility] Phone Number [address] [address] [phone] Hepatic function panel (05/24/2018 9:55 AM CDT) Protein, Total 7.0 6.0 - 8.5 gm/dL [facility] Albumin 4.3 3.5 - 5.0 g/dL [facility] Total Bilirubin 0.4 0.1 - 1.2 mg/dL [facility] Bilirubin, Direct 0.2 0.0 - 0.4 mg/dL [facility] Alkaline Phosphatase 70 30 - 115 U/L [facility] AST 18 5 - 40 U/L [facility] ALT 13 5 - 50 U/L [facility] Specimen Blood Performing Organization Address [facility] Number [address] [phone] Prothrombin time/INR (04/26/2018 5:08 AM CDT)Only the most recent of8 resultswithin the time period is included. Protime 21.9 (H) 9.3 - 12.0 sec [facility] INR 2.1 <=5.9 [facility] Specimen Blood Narrative Performed At [facility] RECOMMENDED COUMADIN/WARFARIN INR THERAPY RANGES STANDARD DOSE: 2.0 - 3.0 Includes: PROPHYLAXIS for venous thrombosis, systemic embolization; TREATMENT for venous thrombosis and/or pulmonary embolus. HIGH RISK: Target INR is 2.5-3.5 for patients with mechanical heart valves. Final Information (Auto Output) Final Information (Auto Output) Performing Organization Address City/[facility] Phone Number [address] [place] [address] [phone] aPTT (04/26/2018 12:43 AM CDT)Only the most recent of18 resultswithin the time period is included. PTT >150.0 (HH) 23.0 - 35.0 sec [facility] Specimen Blood Narrative Performed At Final Information (Auto Output) [facility] Performing Organization Address [facility] Phone Number [facility] [address] [place] [address] [phone] TRANSFUSION SERVICE REPORT - SCAN (04/21/2018 6:05 PM CDT)Only the most recent of3 resultswithin the time period is included. Narrative Performed At Prepare Leuko-Red RBC (04/20/2018 11:54 PM CDT) Unit ABO A Pos [facility] UNIT NUMBER [id number] [facility] [place] Status TRANSFUSED [facility] Blood Bank Product RED BLOOD CELLS [facility] [place] PRODUCT CODE [id number] [facility] [place] CROSSMATCH COMPATIBLE [facility] Specimen Other Performing Organization Address [facility] Phone Number [facility] CBC (Hemogram only) (04/20/2018 9:16 PM CDT)Only the most recent of2 resultswithin the time period is included. WBC 7.0 4.0 - 10.0 K/L [facility] RBC 3.89 (L) 4.20 - 5.80 M/L [facility] Hemoglobin 8.8 (L) 13.0 - 16.8 GM/DL [facility] Hematocrit 27.6 (L) 40.0 - 50.0 % [facility] MCV 70.8 (L) 82.0 - 98.0 fL [facility] MCH 22.6 (L) 27.0 - 33.0 pg [facility] MCHC 32.0 32.0 - 36.0 GM/DL [facility] RDW 20.0 (H) 10.3 - 14.2 % [facility] Platelets 360 150 - 430 K/CU MM [facility] MPV 7.4 6.5 - 10.5 fL [facility] Specimen Blood Performing Organization Address [facility]/Zipcode Phone Number [facility] [address] [place] [address] D-dimer (04/20/2018 7:53 AM CDT) D-Dimer, Quant 0.93 (H) <0.50 mg/L [facility] Specimen Blood Narrative Performed At [facility] REGARDING D-DIMER RESULTS: The 98% NPV (Negative Predictive Value) for DVT/PE exclusion is 0.50 mg/L FEU as suggested by the ethylene plant operator and as approved by the FDA. Final Information (Auto Output) Performing Organization Address City/State/Zipcode Phone Number [facility] [address] [place] [address] Antibody identification (04/19/2018 5:19 PM CDT) ANTIBODY ID (NIMO) Anti-EComment: Testing performed by: [facility], [address] [place] [address] Antibody Consult SIGNED OUTComment: Anti E causes RBC [facility] [place] injury, transfuse E negative RBCs.Electronic Signature: Ayaz Feliz M.D. Performing Organization Address City/State/[facility] Phone Number [facility] [place] Transfuse Leuko-Red RBC (04/19/2018 5:21 AM CDT)Only the most recent of2 resultswithin the time period is included.PERIPHERAL VASCULAR REPORT - SCAN (06/2018 1:00 PM CDT) Narrative Performed At Venous doppler legs bilateral (04/18/2018 11:50 AM CDT) Narrative Performed At FINAL REPORT [facility] History: Lower extremity swelling Comparison: None Discussion: [...] MD Report Verified Date/Time:04/18/2018 12:31:58 Reading Location: [facility] Radiology Reading Room Procedure Note Interface, External [...] Report Verified Date/Time: 04/18/2018 12:31:58 Reading Location: [facility] Radiology Reading Room Performing Organization Address City/[facility] Phone Number [facility] Prothrombin Gene Mutation (04/18/2018 10:51 AM CDT) Prothrombin/Factor II Negative for the [id number] [facility] (Prothrombin/Factor II) [facility] mutation. Pathologist: Annmarie Thomas MD [facility] (electronic signature) [facility] Specimen Blood Narrative Performed At [facility] This test is a genotyping assay which evaluates the DNA sequence at position 11129 of the prothrombin (Factor II) gene. A [...] and its performance characteristics determined by the [facility] Pathology Department, Section of Molecular Pathology. It has not been cleared or approved by the U.S. Food and Drug Administration (FDA), since FDA approval is not required for clinical use of the test. Validation was done as required by the Clinical Laboratory Improvement Amendments of 1988. Performing Organization Address City/State/Zipcode Phone Number [facility] [address] [place] [phone] CENTER Vitamin B12 and Folate (04/18/2018 10:51 AM CDT) Vitamin B12 497 213 - 816 pg/mL [facility] Folate 6.5 (L) >=7.0 ng/mL [facility] Specimen Blood Performing Organization Address [facility] Phone Number [facility] [address] [place] [address] CENTER Phosphatidylserine Abs (IgG, IgM) (04/18/2018 10:51 [...] more information on this test, go to: http://education.VDP/faq/MZC879 Specimen Blood Narrative Performed At Performing Lab [facility] What's Hot [place] [address] [place] [address] Rodney Bolivar MD, PhD, BRIANNA Performing Organization Address City/[facility]/Zipcode Phone Number [place] [address] [facility] [address] [facility] Iron, TIBC, % sat. 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 The "thermolabile" variant C677T [NM 111269.3: c.665C>T (p.A222V)] and Q1903Y [c. 1286A>C (p.E429A)] occur frequently in the [...] uncertain and is not recommended by The [employer] (ACMG) or the [place] [employer]nec[employer] (ACOG) in [...] and prothrombin gene mutations. The C677T and L1077X variants are detected by amplification of the [...] Health care providers, please contact your local [facility] genetic counselor or call [facility] ([phone]) for assistance with interpretation of these results. This test was developed and its analytical performance characteristics have been determined by [employer] [facility]. It has not been cleared or approved by FDA. This assay has been validated pursuant to the CLIA regulations and is used for clinical purposes. Specimen Blood Narrative Performed At Performing Lab [facility] [employer] [address] [address] Rodney Bolivar MD, PhD, BRIANNA Performing Organization Address [facility] [address] INC[facility]ATED [address] [address] [facility] Protein S antigen, total (04/18/2018 10:51 AM CDT) Protein S, Total Antigen 90 70 - 140 % normal [facility] Specimen Blood Narrative Performed At Performing [facility] [employer] [address] [address] Rodney Bolivar MD, PhD, BRIANNA Performing Organization Address [facility] [place] [address] [facility]ATED [address] [facility] Protein C antigen, total (04/18/2018 10:51 AM CDT) Protein C Antigen 100 70 - 140 % normal [facility] Comment: INCORPORATED Decreased levels of Protein C antigen may be found in congenital deficiency, treatment with oral anticoagulants, liver disease, D.I.C. and post surgery. Specimen Blood Narrative Performed At Performing Lab [facility] [place] [address] [place] [address] Rodney Bolivar MD, PhD, BRIANNA Performing Organization Address City/State/Zipcode Phone Number [facility] [place] [address] [facility]PORATED [address] [facility] Cardiolipin Antibodies, IgG and IgM (04/18/2018 10:51 AM CDT) Anticardiolipin IgG <1.6 <20.0 GPL [facility] Anticardiolipin IgM 0.5 <20.0 MPL [facility] Specimen Blood Narrative Performed At Anticardiolipin IgG Result Interpretation: [facility] <20.0 GPL Normal >/=20.0 GPL Positive Anticardiolipin IgM Result Interpretation: <20.0 MPL Normal >/=20.0 MPL Positive Performing Organization Address [facility] Phone Number [address] [address] CENTER Factor 5 Leiden PCR (thrombotic risk) (04/18/2018 10:51 AM CDT) Factor V Leiden Negative for the R506Q (Factor [facility] V Leiden) mutation [facility] Pathologist: Annmarie Thomas MD [facility] (electronic signature) [facility] Specimen Blood Narrative Performed At This test is a genotyping assay which [facility] evaluates the DNA sequence corresponding to Codon [...] and its performance characteristics determined by the [facility] Pathology Department, Section of Molecular Pathology. It has not been cleared or approved by the U.S. Food and Drug Administration (FDA), since FDA approval is not required for clinical use of the test. Validation was done as required by the Clinical Laboratory Improvement Amendments of 1988. Performing Organization Address City/[facility]/Zipcode Phone Number [place] [phone] [place], [place] [phone] CENTER Antithrombin III (04/18/2018 10:51 AM CDT) Antithrombin III 81.0 80.0 - 120.0 % [facility] Specimen Blood Performing Organization Address City/State/Zipcode Phone Number [facility] [address] [place], [place] [phone] CENTER Reticulocyte count (04/18/2018 10:51 AM CDT) % Retic 1.5 0.4 - 2.9 % [facility] Specimen Blood Performing Organization Address City/State/Zipcode Phone Number [facility] [address] [place] [address] [phone] Type and screen (04/18/2018 10:51 AM CDT) Ab Scrn POSITIVE [facility] ABO Grouping AB [facility] Rh Factor POS [facility] Specimen Blood Performing Organization Address City/[facility] Phone Number [place] [phone] [place], [place] [phone] [facility] Protein electrophoresis, serum (04/18/2018 10:51 AM CDT) Albumin Fraction 3.5 3.5 - 5.5 g/dL [facility] Alpha 1 Fraction 0.2 0.2 - 0.4 g/dL [facility] Alpha 2 Fraction 0.6 0.5 - 0.9 g/dL [facility] Beta Fraction 1.1 0.6 - 1.1 g/dL [facility] Gamma Globulin Fraction 0.8 0.7 - 1.7 g/dL [facility] Interpretation All fractions present [facility] in expected [facility] distribution. No monoclonal bands detected. Pathologist: Annmarie Thomas MD [facility] (electronic signature) [facility] Protein, Total 6.3 6.0 - 8.3 gm/dL [facility] Specimen Blood Performing Organization Address City/[facility]/Zipcode Phone Number [facility] [address] [place] [address] [phone] CENTER Lactate dehydrogenase (LDH) (04/18/2018 10:51 AM CDT) LDH 174 107 - 206 U/L [facility] Specimen Blood Performing Organization Address City/[facility] Phone Number [facility] [address] [place] [address] [phone] Homocysteine (04/18/2018 10:51 AM CDT) Homocysteine 6.1 5.1 - 15.4 umol/L [facility] Specimen Blood Performing Organization Address [facility]/Zipcode Phone Number [address] [phone] CENTER Ferritin (04/18/2018 10:51 AM CDT) Ferritin 8 (L) 22 - 322 ng/mL [facility] Specimen Blood Performing Organization Address City/[facility] Phone Number [facility] [place], [place] [address] [phone] TSH/Free T4 If Indicated (04/17/2018 9:06 PM CDT) TSH 0.71 0.35 - 5.50 uIU/mL [facility] Specimen Blood Performing Organization Address [facility] Phone Number [facility] [address] [place] [address] [phone] after 09/17/2017 Insurance Payer Benefit Plan / Subscriber ID Type Phone Address Group BLUE CROSS/BLUE BCBS ADV HMO xxxxxxxxxxxx [phone] [address] [place] [address] (Work) [phone] Advance Directives For more information, please contact:[facility] [place], [place] [phone] Code Status Date Activated Date Inactivated Comments [...]
--- OUTSIDE RECORDS SUMMARY | 2018-09-18 08:47 | XMS REPORT | Continuity of Care Document ---
:1970 Author Organization [facility] Care Team Providers Name Role Phone Lenny Holly MD Unavailable Insurance Providers Payer name Policy type / Policy ID Covered democrat ID Policy Nelson Coverage type [employer] HE[employer]CARE (PPO) CIGNA HEALTHCARE (PPO) CIGNA - OPEN ACCESS PLUS - LOCAL PLUS CIGNA - OPEN ACCESS PLUS - LOCAL PLUS CIGNA HEALTHCARE (PPO) CIGNA HEALTHCARE (PPO) CIGNA HEALTHCARE (PPO) CIGNA HEALTHCARE (PPO) Encounters Encounter Performer Location Date Lab Report Lenny Holly MD [facility] [place] Jul 20, 2014 Allergies, Adverse Reactions, Alerts [...]
--- OUTSIDE RECORDS SUMMARY | 2018-09-18 08:47 | XMS REPORT | Continuity of Care Document ---
:1970 Author Organization [facility] Care Team Providers Name Role Phone Lenny Holly MD Unavailable Insurance Providers Payer name Policy type / Policy ID Covered constitution party ID Policy Nelson Coverage type [employer] HEALTHCARE (PPO) CIGNA HEALTHCARE (PPO) CIGNA - OPEN ACCESS PLUS - LOCAL PLUS CIGNA - OPEN ACCESS PLUS - LOCAL PLUS C[employer]NA HEALTHCARE (PPO) CIGNA HEALTHCARE (PPO) CIGNA HEALTHCARE (PPO) CIGNA HEALTHCARE (PPO) Encounters Encounter Performer Location Date Lab Report Lenny Holly MD [facility] [place] Jul 20, 2014 Allergies, Adverse Reactions, Alerts [...]
--- OUTSIDE RECORDS SUMMARY | 2018-09-18 08:50 | XMS REPORT ---
:1970 [facility] [address] [place] [address] Care Team Providers Name Role Phone PILO, DR ACKERMAN Unavailable Unavailable PATRICIA SMITH Unavailable Unavailable SUDEEP, DR ROJAS Unavailable Unavailable DR DALOTN BUCIO Unavailable Unavailable NIRANJAN NICHOLSON Unavailable Unavailable JAQUI, WILL Unavailable Unavailable BEACH, ILIANA Unavailable Unavailable SOTO, BHAGLEANDROT PURUSHOTTAM Unavailable Unavailable ITALIA ACUNA Unavailable Unavailable MAURA, ZANDER KASAM Unavailable Unavailable DR JOLEEN KOWALSKI Unavailable [...] tartrate - 00:00:0 0 ketorolac DA Active AR 2018-08 00:00:0 0 zolpidem DA Active MO 2017-11 tartrate - 00:00:0 0 ketorolac DA Active AR 2017-11 00:00:0 0 Medications This patient has no known medications. Encounters Start End Encounter Admission Attending Care Care Encounter Date/Time Date/Time Type Type Clinicians Facility Department ID 2018-09-14 2018-09-15 Outpatient Maki DAIGLE [facility] TELE [id number] 12:31:00 11:36:00 TYRON 2018-07-31 2018-07-31 Emergency E USDEEP, [facility] ECC [id number] 00:38:00 05:56:00 BOB 2018-07-15 2018-07-16 Outpatient Oscar BUCIO, [facility] TELE [id number] 10:19:00 12:35:00 DALTON 2017-12-16 2017-12-16 Emergency E BA, JOLEEN [facility] GPECC [id number] 13:45:00 17:07:00 Results Test Description Test Time Test Comments Text Results Atomic Results Result Comments CT PE PROTOCOL 2018-09-15 09:42:36 CLINICAL HISTORY: Elevated the dimer.LOCATION: D4.FINDINGS: Following the administration of 72 mL Omnipaque 350 intravenouscontrast, multislice axial images are obtained through the chest during thearterial phase per angiography protocol. Reconstructed images are obtained andare used in interpretation. Creatinine is 1.0. GFR is not given Comparison is made with previous study dated 07/15/18. The pulmonary arterialvasculature is normal in appearance without evidence of central pulmonaryembolus. There is mild calcification of the thoracic aorta. No aneurysmaldilatation or dissection. There is a right central line in place with its tipwithin the right atrium. There is no significant mediastinal adenopathy. Thegallbladder has been surgically removed. Stable 6 mm calculus is noted at thesuperior pole left kidney. No acute skeletal or soft tissue abnormalities.The lungs are clear. No infiltrates are identified. There are no pleuraleffusions.IMPRESSION:1. No evidence of central pulmonary embolus.2. No acute abnormalities.*One or more of the following radiation dose reduction techniques was used:automated exposure control, adjustment of mA and/or KV according to patientsize, and/or utilization of iterative reconstruction technique. BASIC METABOLIC PANEL 2018-09-15 05:53:00 Test Item Value Reference Range Comments GLUCOSE (test code=06D) 120 mg/dL 75-100 SODIUM (test code=01A) 140 mmol/L 136-145 POTASSIUM (test code=01B) 3.8 mmol/L 3.6-5.1 CHLORIDE (test code=04A) 107 mmol/L 98-107 CO2 (test code=02A) 27 mmol/L 22-32 ANION GAP (test code=ANG) 9.8 mmol/L BUN (test code=05D) 20 mg/dL 7-18 CREATININE (test code=03E) 1.0 mg/dL 0.7-1.3 BUN/CREA (test code=BCR) 20 12-20 CALCIUM (test code=09D) 8.3 mg/dL 8.3-9.5 PRO TIME AND [id number] 05:51:00 Test Item Value Reference Range Comments PT (test code=TT) 10.5 s 9.8-13.6 INR (test code=INR) 0.9 INRH (test code=INRH) SUGGESTED THERAPEUTIC RANGE FOR INR: 2.5 - 3.5 For Patients with Prosthetic Valves or Patients with recurrent Thromboembolic Events 2.0 - 3.0 For Most Other Applications PTT (test code=PTT) 28.3 s 20.2-38.0 PTTH (test code=PTTH) To monitor the effectiveness of heparin, we offer the Anti-Xa (Heparin Assay). It can be used for either unfractionated or LMW Heparin. Order Code is ANTI-XA CBC (INCLUDES AUTOMATED DIFFERENTIAL)2018-09-15 05:38:00 Test Item Value Reference Range Comments WBC (test code=WBC) 6.9 10\\S\\3/uL 4.5-11.0 RBC (test code=RBC) 3.50 10\\S\\6/uL 4.20-5.60 HGB (test code=HBG) 7.9 g/dL 14.0-18.0 HCT (test code=HCT) 26.9 % 35.0-46.0 MCV (test code=MCV) 76.9 fL 80.0-94.0 MCH (test code=MCH) 22.6 pg 27.0-31.0 MCHC (test code=MCHC) 29.4 g/dL 32.0-36.0 RDW (test code=RDW) 18.8 % 11.5-14.5 PLT (test code=PLT) 314 10\\S\\3/uL 130-400 MPV (test code=MPV) 9.0 fL 9.4-12.4 NEUTROP # (test code=NE#) 3.4 10\\S\\3/uL 2.0-8.0 LYMPH # (test code=LY#) 2.3 10\\S\\3/uL 1.2-4.0 MONOCYTE # (test code=MO#) 0.9 10\\S\\3/uL 0.0-1.1 EOSINOPH # (test code=EO#) 0.3 10\\S\\3/uL 0.0-0.7 BASOPHIL # (test code=BA#) 0.0 10\\S\\3/uL 0.0-0.3 IG # (test code=IG#) 0.01 10\\S\\3/uL 0.00-0.06 NRBC # (test code=NRBC#) 0.00 10\\S\\3/uL 0.00-0.01 NEUTROPH % (test code=NE%) 48.9 % 35.0-73.0 LYMPH % (test code=LY%) 32.9 % 20.0-55.0 MONO % (test code=MO%) 13.0 % 2.5-10.0 EOSINOPH % (test code=EO%) 4.5 % 0.0-5.0 BASOPHIL % (test code=BA%) 0.6 % 0.0-2.0 IG % (test code=IG%) 0.1 % 0.0-0.8 NRBC% (test code=NRBC%) 0.0 % 0.0-0.2 MANDIFF (test code=MDIFF) NO NO RBC MORPH (test code=RBCMOR) NORMAL CARDIAC [id number] 22:13:00 Test Item Value Reference Range Comments TROPONIN I (test code=A84) <0.015 ng/mL 0.000-0.045 CARDIAC [id number] 15:31:00 Test Item Value Reference Range Comments TROPONIN I (test code=A84) <0.015 ng/mL 0.000-0.045 CBC W/PLT COUNT & AUTO [id number] 09:31:00 Test Item Value Reference Range Comments WHITE BLOOD CELL COUNT (BEAKER) (test rbpz=268) 4.9 K/ L 4.0-10.0 RED BLOOD CELL COUNT (BEAKER) (test hbbd=855) 3.69 M/ L 4.20-5.80 HEMOGLOBIN (BEAKER) (test gueq=998) 8.5 GM/DL 13.0-16.8 HEMATOCRIT (BEAKER) (test rmgg=552) 28.7 % 36.0-50.0 MEAN CORPUSCULAR VOLUME (BEAKER) (test osmi=724) 77.8 fL 82.0-99.0 MEAN CORPUSCULAR HEMOGLOBIN (BEAKER) (test 23.0 pg 27.0-33.0 cjrd=088) MEAN CORPUSCULAR HEMOGLOBIN CONC (BEAKER) (test 29.6 GM/DL 32.0-36.0 zkrb=449) RED CELL DISTRIBUTION WIDTH (BEAKER) (test 18.6 % 12.0-15.0 gwee=856) PLATELET COUNT (BEAKER) (test evnn=208) 305 K/CU MM 150-430 MEAN PLATELET VOLUME (BEAKER) (test ccmp=740) 9.1 fL 6.0-11.5 NUCLEATED RED BLOOD CELLS (BEAKER) (test 0 /100 WBC 0-0 imdp=923) (MANUAL DIFFERENTIAL)2018-09-03 09:31:00 Test Item Value Reference Range Comments NEUTROPHILS - REL (DIFF) (BEAKER) (test kaav=2752) 39 % LYMPHOCYTES - REL (DIFF) (BEAKER) (test trjg=5496) 44 % MONOCYTES - REL (DIFF) (BEAKER) (test asgu=7748) 13 % EOSINOPHILS - REL (DIFF) (BEAKER) (test ktof=6817) 4 % NEUTROPHILS - ABS (DIFF) (BEAKER) (test zrpj=3028) 1.91 K/ L 1.80-8.00 LYMPHOCYTES - ABS (DIFF) (BEAKER) (test pmkq=8821) 2.16 K/ L 1.48-4.50 MONOCYTES - ABS (DIFF) (BEAKER) (test nmcc=6231) 0.64 K/ L 0.00-1.30 EOSINOPHILS - ABS (DIFF) (BEAKER) (test mwyu=3019) 0.20 K/ L 0.00-0.50 TOTAL COUNTED (BEAKER) (test qpnz=7935) 100 WBC MORPHOLOGY (BEAKER) (test sxll=117) Normal RBC MORPHOLOGY (BEAKER) (test jhzp=318) Normal LARGE PLT(BEAKER) (test lzir=3517) Present BASIC METABOLIC [id number] 05:01:00 Test Item Value Reference Range Comments SODIUM (BEAKER) (test 138 meq/L 135-148 rpwu=121) POTASSIUM (BEAKER) (test 3.5 meq/L 3.6-5.5 uffn=355) CHLORIDE (BEAKER) (test 106 meq/L 98-106 lzrs=004) CO2 (BEAKER) (test 24 meq/L 20-29 fiqj=651) BLOOD UREA NITROGEN 13 mg/dL 10-26 (BEAKER) (test bfdq=493) CREATININE (BEAKER) (test 0.94 mg/dL 0.50-1.20 vjat=550) GLUCOSE RANDOM (BEAKER) 121 mg/dL 70-110 (test nxwp=496) CALCIUM (BEAKER) (test 8.3 mg/dL 8.5-10.5 ahnw=876) EGFR (BEAKER) (test 86 mL/min/1.73 sq m ESTIMATED GFR IS NOT yfkj=7953) ACCURATE CREATININE CLEARANCE IN PREDICTING GLOMERULAR FILTRATION RATE. ESTIMATED GFR IS NOT APPLICABLE FOR DIALYSIS PATIENTS. LIPID [id number] 05:01:00 Test Item Value Reference Range Comments TRIGLYCERIDES (BEAKER) (test duco=080) 122 mg/dL CHOLESTEROL (BEAKER) (test tslc=801) 201 mg/dL HDL CHOLESTEROL (BEAKER) (test flhx=548) 39 mg/dL LDL CHOLESTEROL CALCULATED (BEAKER) (test 138 mg/dL ayom=942) Triglyceride Reference Range: Low Risk <150 Borderline 150- 199 High Risk 200-499 Very High Risk >=500Cholesterol Reference Range: Low Risk <200 Borderline 200-239 High Risk > 240HDL Cholesterol Reference Range: Low Risk >=60 High Risk <40LDL Cholesterol Reference Range: Optimal <100 Near Optimal 100-129 Borderline 130-159 High 160-189 Very High >=190TROPONIN [id number] 04:51:00 Test Item Value Reference Range Comments TROPONIN I (BEAKER) (test trsb=002) < ng/mL 0.00-0.15 HEMOGLOBIN [id number] 04:43:00 Test Item Value Reference Range Comments HEMOGLOBIN A1C (BEAKER) (test ccxc=315) 5.7 % 4.3-6.1 CBC W/PLT COUNT & AUTO [id number] 04:21:00 Test Item Value Reference Range Comments WHITE BLOOD CELL COUNT (BEAKER) (test lnsh=057) 6.8 K/ L 4.0-10.0 RED BLOOD CELL COUNT (BEAKER) (test uien=864) 2.91 M/ L 4.20-5.80 HEMOGLOBIN (BEAKER) (test ibdk=755) 6.7 GM/DL 13.0-16.8 HEMATOCRIT (BEAKER) (test zuqh=010) 22.8 % 36.0-50.0 MEAN CORPUSCULAR VOLUME (BEAKER) (test ngcy=132) 78.4 fL 82.0-99.0 MEAN CORPUSCULAR HEMOGLOBIN (BEAKER) (test 23.0 pg 27.0-33.0 iffp=173) MEAN CORPUSCULAR HEMOGLOBIN CONC (BEAKER) (test 29.4 GM/DL 32.0-36.0 xsxu=803) RED CELL DISTRIBUTION WIDTH (BEAKER) (test 18.4 % 12.0-15.0 hckv=751) PLATELET COUNT (BEAKER) (test szrh=188) 343 K/CU MM 150-430 MEAN PLATELET VOLUME (BEAKER) (test sehd=729) 9.7 fL 6.0-11.5 NUCLEATED RED BLOOD CELLS (BEAKER) (test 0 /100 WBC 0-0 edcb=946) NEUTROPHILS RELATIVE PERCENT (BEAKER) (test 38 % debr=858) LYMPHOCYTES RELATIVE PERCENT (BEAKER) (test 36 % naee=704) MONOCYTES RELATIVE PERCENT (BEAKER) (test 22 % iuoz=036) EOSINOPHILS RELATIVE PERCENT (BEAKER) (test 4 % iarn=704) BASOPHILS RELATIVE PERCENT (BEAKER) (test 0 % zwgx=471) NEUTROPHILS ABSOLUTE COUNT (BEAKER) (test 2.58 K/ L 1.80-8.00 jsny=183) LYMPHOCYTES ABSOLUTE COUNT (BEAKER) (test 2.45 K/ L 1.48-4.50 bhjp=791) MONOCYTES ABSOLUTE COUNT (BEAKER) (test 1.48 K/ L 0.00-1.30 ucgc=595) EOSINOPHILS ABSOLUTE COUNT (BEAKER) (test 0.26 K/ L 0.00-0.50 uhig=982) BASOPHILS ABSOLUTE COUNT (BEAKER) (test 0.01 K/ L 0.00-0.20 ahgd=115) IMMATURE GRANULOCYTES-RELATIVE PERCENT (BEAKER) 0 % 0-0 (test efzx=2881) TROPONIN [id number] 15:35:00 Test Item Value Reference Range Comments TROPONIN I (BEAKER) (test lfnr=350) < ng/mL 0.00-0.15 CT, CHEST WITH IV CONTRAST- PE TEST [id number] 08:14:00Reason for exam:-& gt;CHEST PAINWhat is the [...] pulmonary embolism. No pulmonary infarct. Signed: Perry Gargeport Verified Date/Time: 09/02/2018 08:14:32 Reading Location: [facility] Diagnostic Imaging Reading Room - [place] [address] BASIC METABOLIC [id number] 07:38:00 Test Item Value Reference Range Comments SODIUM (BEAKER) (test 134 meq/L 135-148 awbw=498) POTASSIUM (BEAKER) (test 3.2 meq/L 3.6-5.5 higb=596) CHLORIDE (BEAKER) (test 102 meq/L 98-106 ojpy=257) CO2 (BEAKER) (test 17 meq/L 20-29 dzxm=620) BLOOD UREA NITROGEN 9 mg/dL 10-26 (BEAKER) (test gmem=894) CREATININE (BEAKER) (test 1.20 mg/dL 0.50-1.20 oedt=483) GLUCOSE RANDOM (BEAKER) 224 mg/dL 70-110 (test dfxb=231) CALCIUM (BEAKER) (test 9.0 mg/dL 8.5-10.5 kako=170) EGFR (BEAKER) (test 65 mL/min/1.73 sq m ESTIMATED GFR IS NOT zjgg=0843) ACCURATE CREATININE CLEARANCE IN PREDICTING GLOMERULAR FILTRATION RATE. ESTIMATED GFR IS NOT APPLICABLE FOR DIALYSIS PATIENTS. PT/[id number] 07:33:00 Test Item Value Reference Range Comments PROTIME (BEAKER) (test kbuf=649) 11.5 sec 9.3-12.0 INR (BEAKER) (test junu=966) 1.1 <=5.9 PARTIAL THROMBOPLASTIN TIME (BEAKER) (test 139.2 sec 23.0-35.0 zlco=229) RECOMMENDED COUMADIN/WARFARIN INR THERAPY RANGESSTANDARD DOSE: 2.0 - 3.0 Includes: PROPHYLAXIS forvenous thrombosis, systemic embolization; TREATMENT for venous thrombosis and/or pulmonary embolus.HIGH RISK: Target INR is 2.5-3.5 for patients with mechanical heart valves.Final Information (Auto Output)Final Information (Auto Output)Final Information (Auto Output)TROPONIN [id number] 07: 29:00 Test Item Value Reference Range Comments TROPONIN I (BEAKER) (test ftnx=290) < ng/mL 0.00-0.15 B-TYPE NATRIURETIC FACTOR (BNP)2018-09-02 07:25:00 Test Item Value Reference Range Comments B-TYPE NATRIURETIC PEPTIDE (BEAKER) (test 150 pg/mL 0-100 zsgv=714) [id number] 07:14:00 Test Item Value Reference Range Comments MAGNESIUM (BEAKER) (test ebjf=772) 2.2 mg/dL 1.5-3.0 RAD, CHEST, 1 VIEW, NON [id number] 07:10:00Reason for exam:->CHEST PAINFINAL REPORT Chest one [...] Impression: No focal pulmonary consolidation. Signed: Dennis Suarezeport Verified Date/Time: 09/02/2018 07:10:11 Reading Location: [facility] [id number] CT Body Reading Room CBC W/PLT COUNT & AUTO [id number] 07:03:00 Test Item Value Reference Range Comments WHITE BLOOD CELL COUNT (BEAKER) (test crde=134) 9.7 K/ L 4.0-10.0 RED BLOOD CELL COUNT (BEAKER) (test smed=472) 4.18 M/ L 4.20-5.80 HEMOGLOBIN (BEAKER) (test grpy=884) 9.8 GM/DL 13.0-16.8 HEMATOCRIT (BEAKER) (test wosm=666) 32.6 % 36.0-50.0 MEAN CORPUSCULAR VOLUME (BEAKER) (test rtov=197) 78.0 fL 82.0-99.0 MEAN CORPUSCULAR HEMOGLOBIN (BEAKER) (test 23.4 pg 27.0-33.0 idal=595) MEAN CORPUSCULAR HEMOGLOBIN CONC (BEAKER) (test 30.1 GM/DL 32.0-36.0 tzge=690) RED CELL DISTRIBUTION WIDTH (BEAKER) (test 18.4 % 12.0-15.0 gjic=704) PLATELET COUNT (BEAKER) (test rofc=503) 354 K/CU MM 150-430 MEAN PLATELET VOLUME (BEAKER) (test rujq=657) 9.6 fL 6.0-11.5 NUCLEATED RED BLOOD CELLS (BEAKER) (test 0 /100 WBC 0-0 mtsl=624) NEUTROPHILS RELATIVE PERCENT (BEAKER) (test 62 % wqfy=630) LYMPHOCYTES RELATIVE PERCENT (BEAKER) (test 26 % vced=832) MONOCYTES RELATIVE PERCENT (BEAKER) (test 10 % jxba=951) EOSINOPHILS RELATIVE PERCENT (BEAKER) (test 1 % ccxl=905) BASOPHILS RELATIVE PERCENT (BEAKER) (test 0 % wmfo=892) NEUTROPHILS ABSOLUTE COUNT (BEAKER) (test 6.00 K/ L 1.80-8.00 ybqs=419) LYMPHOCYTES ABSOLUTE COUNT (BEAKER) (test 2.51 K/ L 1.48-4.50 mhct=969) MONOCYTES ABSOLUTE COUNT (BEAKER) (test 0.99 K/ L 0.00-1.30 inlt=089) EOSINOPHILS ABSOLUTE COUNT (BEAKER) (test 0.13 K/ L 0.00-0.50 xywg=836) BASOPHILS ABSOLUTE COUNT (BEAKER) (test 0.02 K/ L 0.00-0.20 nqhp=667) IMMATURE GRANULOCYTES-RELATIVE PERCENT (BEAKER) 0 % 0-0 (test soxd=2965) CARDIAC PROFILE 2018-07-31 05:25:00 Test Item Value Reference Range Comments TROPONIN I (test code=A84) <0.015 ng/mL 0.000-0.045 CBC (INCLUDES AUTOMATED DIFFERENTIAL)*[id number] 01:33:00 Test Item Value Reference Range Comments [...] ng/mL Tricyclic Antidepressants 1000 ng/mL CARDIAC PROFILE *WW*2018-07-31 01:21:00 Test Item Value Reference Range Comments TROPONIN I (test code=A84) <0.015 ng/mL 0.000-0.045 BASIC METABOLIC PANEL *WW*2018-07-31 01:18:00 Test Item Value Reference Range Comments [...] code=09D) 7.9 mg/dL 8.3-9.5 CBC (INCLUDES AUTOMATED DIFFERENTIAL)*[id number] 06:34:00 Test Item Value Reference Range Comments [...] (test code=WRBCMOR) NORMAL PRO TIME AND PTT *WW*2018-07-15 14:26:00 Test Item Value Reference Range Comments [...] CHEST WITH CONTRAST, PE PROTOCOL: Location code: [id number] HISTORY: Shortness of breath , chest painCOMPARISON: [...] PE2. No acute intrathoracic abnormality.BASIC METABOLIC PANEL 2018-07-15 09:09:00 Test Item Value Reference Range Comments [...] (test code=09D) 8.6 mg/dL 8.3-9.5 Arterial Blood [id number] 08:55:00 Test Item Value Reference Range Comments pH (test code=PHRT) 7.412 7.350-7.450 pCO2 (test code=PCO2RT) 36.2 mmHg 35.0-45.0 pO2 (test code=PO2RT) 99.7 mmHg 80.0-110.0 HCO3? (test code=HCO3) 22.6 mmol/L 22.0-26.0 DARIO (test code=DARIO) -1.1 mmol/L -3.0-3.0 tHb (test code=THBRT) 11.0 g/dL 14.0-18.0 sO2 (test code=SO2RT) 96.9 % 92.0-100.0 FO2Hb (test code=ER8VZPF) 94.7 % 94.0-100.0 FCOHb (test code=FCOHBRT) 1.2 % 0.0-3.0 FMetHb (test code=FMETHBRT) 1.1 % 0.2-0.6 ABGTEMP (test code=ABGTEMP) * Temp Corrected Values* ABGTEMP (test code=ABGTEMP.) 37.0 ?C pH (T) (test code=PHTEMP) 7.412 7.350-7.450 pCO2 (T) (test code=DWT5DIBH) 36.2 mmHg 35.0-45.0 pO2 (T) (test code=CG7TFVR) 99.7 mmHg 80.0-110.0 Device (test code=DEVICE) ROOM [...] For Most Other Applications CBC (INCLUDES AUTOMATED DIFFERENTIAL)*[id number] 07:33:00 Test Item Value Reference Range Comments [...] XR CHEST 1 VIEW PORTABLE *WW*2018-07-15 07:25:22Location: [id number], FRONTAL VIEW HISTORY: [id number]: Chest painCOMPARISON: Chest x-ray 388FINDINGS: The lungs are clear without consolidation. No pleural effusion or pneumothorax.The heart size is normal. Thebones are unremarkable. Right IJ Port- A-Cath isin the SVC.IMPRESSION:No evidence of acute cardiopulmonary disease.BLOOD [id number] 16:00:00 Test Item Value Reference Range Comments CULTURE (BEAKER) (test hzdc=6423) No growth in 5 days BLOOD [id number] 16:00:00 Test Item Value Reference Range Comments CULTURE (BEAKER) (test dnxn=5485) No growth in 5 days LACTIC ACID, VENOUS, WHOLE [id number] 14:43:00 Test Item Value Reference Range Comments LACTATE BLOOD VENOUS (2) (BEAKER) (test 1.3 mmol/L 0.5-2.2 poju=3611) Effective 02/12/2016: Units/Reference Range ChangeNew: 0.5-2.2 mmol/L Previous: 5 -18 mg/dLURINALYSIS W/ REFLEX URINE [id number] 14:17:00 Test Item Value Reference Range Comments COLOR (BEAKER) (test eobz=208) Yellow CLARITY (BEAKER) (test eldf=018) Clear SPECIFIC GRAVITY UA (BEAKER) (test ybqp=199) 1.010 1.001-1.035 PH UA (BEAKER) (test owec=610) 7.0 5.0-8.0 PROTEIN UA (BEAKER) (test tzuw=995) Negative Negative GLUCOSE UA (BEAKER) (test uzbx=188) Negative Negative KETONES UA (BEAKER) (test henv=369) Negative Negative BILIRUBIN UA (BEAKER) (test emct=438) Negative Negative BLOOD UA (BEAKER) (test mimd=355) Negative Negative NITRITE UA (BEAKER) (test ngye=999) Negative Negative LEUKOCYTE ESTERASE UA (BEAKER) (test Negative Negative cmuy=179) UROBILINOGEN UA (BEAKER) (test xnfx=657) 0.2 mg/dL 0.2-1.0 BACTERIA (BEAKER) (test cukx=119) None Seen RBC UA-MANUAL (BEAKER) (test xxyg=2800) None Seen /HPF WBC UA-MANUAL (BEAKER) (test rgmw=6951) <5 /HPF SQUAMOUS EPITHELIAL MANUAL (BEAKER) (test None Seen /HPF ngbj=9291) SOURCE(BEAKER) (test pefq=1840) CT, CHEST WITH IV CONTRAST- PE TEST [id number] 13:14:00Reason for exam:-& gt;CHEST PAINReason for exam:->h/o [...] Verified Date/ Time: 05/24/2018 13:14:23 Reading Location: [address] Radiology Reading Room LACTIC ACID, VENOUS, WHOLE [id number] 11:37:00 Test Item Value Reference Range Comments LACTATE BLOOD VENOUS (2) (BEAKER) (test 4.6 mmol/L 0.5-2.2 goni=0406) Effective 02/12/2016: Units/Reference Range ChangeNew: 0.5-2.2 mmol/L Previous: 5 -18 mg/dLCBC W/PLT COUNT & AUTO [id number] 11:20:00 Test Item Value Reference Range Comments WHITE BLOOD CELL COUNT (BEAKER) (test xjet=502) 9.8 K/ L 4.0-10.0 RED BLOOD CELL COUNT (BEAKER) (test dzii=202) 4.15 M/ L 4.20-5.80 HEMOGLOBIN (BEAKER) (test nsqw=494) 10.7 GM/DL 13.0-16.8 HEMATOCRIT (BEAKER) (test ffme=990) 33.6 % 40.0-50.0 MEAN CORPUSCULAR VOLUME (BEAKER) (test ypre=126) 80.8 fL 82.0-98.0 MEAN CORPUSCULAR HEMOGLOBIN (BEAKER) (test 25.7 pg 27.0-33.0 tizn=737) MEAN CORPUSCULAR HEMOGLOBIN CONC (BEAKER) (test 31.8 GM/DL 32.0-36.0 zuof=002) RED CELL DISTRIBUTION WIDTH (BEAKER) (test 28.4 % 10.3-14.2 ysjf=171) PLATELET COUNT (BEAKER) (test vfvi=857) 324 K/CU MM 150-430 MEAN PLATELET VOLUME (BEAKER) (test fbtf=920) 7.3 fL 6.5-10.5 NUCLEATED RED BLOOD CELLS (BEAKER) (test 0 /100 WBC 0-0 hafu=366) NEUTROPHILS RELATIVE PERCENT (BEAKER) (test 75 % yldn=488) LYMPHOCYTES RELATIVE PERCENT (BEAKER) (test 17 % blcr=689) MONOCYTES RELATIVE PERCENT (BEAKER) (test 6 % bndf=016) EOSINOPHILS RELATIVE PERCENT (BEAKER) (test 2 % nole=034) BASOPHILS RELATIVE PERCENT (BEAKER) (test 0 % jgiu=755) NEUTROPHILS ABSOLUTE COUNT (BEAKER) (test 7.30 K/ L 1.80-8.00 xore=149) LYMPHOCYTES ABSOLUTE COUNT (BEAKER) (test 1.70 K/ L 1.48-4.50 nskk=839) MONOCYTES ABSOLUTE COUNT (BEAKER) (test 0.60 K/ L 0.00-1.30 imve=614) EOSINOPHILS ABSOLUTE COUNT (BEAKER) (test 0.20 K/ L 0.00-0.50 vjbb=843) BASOPHILS ABSOLUTE COUNT (BEAKER) (test 0.00 K/ L 0.00-0.20 okyv=340) (MANUAL DIFFERENTIAL)2018-05-24 11:20:00 Test Item Value Reference Range Comments TOTAL COUNTED (BEAKER) (test avvw=0016) WBC MORPHOLOGY (BEAKER) (test bqkx=966) Normal PLT MORPHOLOGY (BEAKER) (test hveo=562) Normal ANISOCYTOSIS (BEAKER) (test qpqq=225) 3+ many HYPOCHROMIA (BEAKER) (test fkru=227) 3+ many TROPONIN [id number] 11:12:00 Test Item Value Reference Range Comments TROPONIN I (BEAKER) (test gbwi=040) < ng/mL 0.00-0.15 Troponin I (TnI) levels [...] and persistent tachyarrhythmia.CREATINE KINASE (CK), TOTAL AND [id number] 11:11:00 Test Item Value Reference Range Comments CREATINE KINASE TOTAL (BEAKER) (test lpyx=590) 76 U/L 40-250 CREATINE KINASE-MB (BEAKER) (test lnkd=855) 1.2 ng/mL 0.0-4.9 CREATINE KINASE-MB INDEX (BEAKER) (test gljn=016) 1.6 % CK-MB Reference Range:<5 Normal5-10 Borderline>10 AbnormalHEPATIC FUNCTION [id number] 11:06:00 Test Item Value Reference Range Comments TOTAL PROTEIN (BEAKER) (test hjgu=348) 7.0 gm/dL 6.0-8.5 ALBUMIN (BEAKER) (test tlnj=0501) 4.3 g/dL 3.5-5.0 BILIRUBIN TOTAL (BEAKER) (test fmpx=370) 0.4 mg/dL 0.1-1.2 BILIRUBIN DIRECT (BEAKER) (test kbmj=776) 0.2 mg/dL 0.0-0.4 ALKALINE PHOSPHATASE (BEAKER) (test gqkc=539) 70 U/L 30-115 AST (SGOT) (BEAKER) (test kogw=088) 18 U/L 5-40 ALT (SGPT) (BEAKER) (test rdzv=456) 13 U/L 5-50 BASIC METABOLIC [id number] 11:03:00 Test Item Value Reference Range Comments SODIUM (BEAKER) (test 138 meq/L 135-148 bawu=415) POTASSIUM (BEAKER) (test 3.6 meq/L 3.6-5.5 ekpp=898) CHLORIDE (BEAKER) (test 106 meq/L 98-106 afdp=290) CO2 (BEAKER) (test 21 meq/L 20-29 vbop=634) BLOOD UREA NITROGEN 11 mg/dL 10-26 (BEAKER) (test cxth=263) CREATININE (BEAKER) (test 0.96 mg/dL 0.50-1.20 tjxe=541) GLUCOSE RANDOM (BEAKER) 212 mg/dL 70-110 (test hqjo=101) CALCIUM (BEAKER) (test 9.4 mg/dL 8.5-10.5 krie=581) EGFR (BEAKER) (test 84 mL/min/1.73 sq m ESTIMATED GFR IS NOT ovxu=2654) ACCURATE CREATININE CLEARANCE IN PREDICTING GLOMERULAR FILTRATION RATE. ESTIMATED GFR IS NOT APPLICABLE FOR DIALYSIS PATIENTS. B-TYPE NATRIURETIC FACTOR (BNP)2018-05-24 11:02:00 Test Item Value Reference Range Comments B-TYPE NATRIURETIC PEPTIDE (BEAKER) (test opvk=362) 8 pg/mL 0-100 [id number] 10:53:00 Test Item Value Reference Range Comments PROTIME (BEAKER) (test lztu=053) 9.9 sec 9.3-12.0 INR (BEAKER) (test djwq=312) 0.9 <=5.9 PARTIAL THROMBOPLASTIN TIME (BEAKER) (test 39.3 sec 23.0-35.0 xyzk=632) RECOMMENDED COUMADIN/WARFARIN INR THERAPY RANGESSTANDARD DOSE: 2.0 - 3.0 Includes: PROPHYLAXIS forvenous thrombosis, systemic embolization; TREATMENT for venous thrombosis and/or pulmonary embolus.HIGH RISK: Target INR is 2.5-3.5 for patients with mechanical heart valves.Final Information (Auto Output)Final Information (Auto Output)Final Information (Auto Output)RAD, CHEST, 1 VIEW, NON [id number] 10:18:00Reason for exam:->CHEST PAINShould this be performed at the bedside?->YesFINAL REPORT Chest one view INDICATION: Chest pain COMPARISON: 09/27/2016 IMPRESSION: There is no focal consolidation, vascular congestion, pleural effusion, or pneumothorax. Heart size is within normal limits. Mild aortic tortuosity is noted. A right chest Port-A-Cath is in place. The bones appear intact. Signed: June Evangelista Verified Date/Time: 05/24/2018 10:18:17 Reading Location: [facility] Radiology Reading Room CBC W/PLT COUNT & AUTO [id number] 08: 55:00 Test Item Value Reference Range Comments WHITE BLOOD CELL COUNT (BEAKER) (test yzqs=796) 5.4 K/ L 4.0-10.0 RED BLOOD CELL COUNT (BEAKER) (test mnvo=049) 3.90 M/ L 4.20-5.80 HEMOGLOBIN (BEAKER) (test nlcr=339) 9.2 GM/DL 13.0-16.8 HEMATOCRIT (BEAKER) (test kaoi=329) 29.2 % 40.0-50.0 MEAN CORPUSCULAR VOLUME (BEAKER) (test wdfg=304) 75.0 fL 82.0-98.0 MEAN CORPUSCULAR HEMOGLOBIN (BEAKER) (test 23.7 pg 27.0-33.0 lerf=410) MEAN CORPUSCULAR HEMOGLOBIN CONC (BEAKER) (test 31.5 GM/DL 32.0-36.0 ukzo=153) RED CELL DISTRIBUTION WIDTH (BEAKER) (test 26.3 % 10.3-14.2 izrp=657) PLATELET COUNT (BEAKER) (test vkql=546) 338 K/CU MM 150-430 MEAN PLATELET VOLUME (BEAKER) (test zjja=593) 7.9 fL 6.5-10.5 (MANUAL DIFFERENTIAL)2018-04-26 08:55:00 Test Item Value Reference Range Comments NEUTROPHILS - REL (DIFF) (BEAKER) (test ilqn=7054) 61 % LYMPHOCYTES - REL (DIFF) (BEAKER) (test whpx=6290) 32 % MONOCYTES - REL (DIFF) (BEAKER) (test xwoq=6900) 5 % EOSINOPHILS - REL (DIFF) (BEAKER) (test jbiv=1552) 2 % NEUTROPHILS - ABS (DIFF) (BEAKER) (test tiuf=3844) 3.29 K/ L 1.80-8.00 LYMPHOCYTES - ABS (DIFF) (BEAKER) (test abzb=7795) 1.73 K/ L 1.48-4.50 MONOCYTES - ABS (DIFF) (BEAKER) (test jsry=0179) 0.27 K/ L 0.00-1.30 EOSINOPHILS - ABS (DIFF) (BEAKER) (test pbci=5231) 0.11 K/ L 0.00-0.50 TOTAL COUNTED (BEAKER) (test cclw=4916) 100 WBC MORPHOLOGY (BEAKER) (test apio=835) Normal PLT MORPHOLOGY (BEAKER) (test kjot=043) Normal ANISOCYTOSIS (BEAKER) (test quov=046) 1+ few HYPOCHROMIA (BEAKER) (test kgtr=396) 3+ many PROTHROMBIN TIME/[id number] 06:37:00 Test Item Value Reference Range Comments PROTIME (BEAKER) (test tllw=455) 21.9 sec 9.3-12.0 INR (BEAKER) (test xiks=822) 2.1 <=5.9 RECOMMENDED COUMADIN/WARFARIN INR THERAPY RANGESSTANDARD DOSE: 2.0 - 3.0 Includes: PROPHYLAXIS forvenous thrombosis, systemic embolization; TREATMENT for venous thrombosis and/or pulmonary embolus.HIGH RISK: Target INR is 2.5-3.5 for patients with mechanical heart valves.Final Information (Auto Output)Final Information (Auto Output)[id number] 04:49:00 Test Item Value Reference Range Comments PARTIAL THROMBOPLASTIN TIME (BEAKER) (test hchm=036) > sec 23.0-35.0 Final Information (Auto Output)[id number] 16:53:00 Test Item Value Reference Range Comments PARTIAL THROMBOPLASTIN TIME (BEAKER) (test oray=576) > sec 23.0-35.0 Final Information (Auto Output)[id number] 06:08:00 Test Item Value Reference Range Comments PARTIAL THROMBOPLASTIN TIME (BEAKER) (test 116.2 sec 23.0-35.0 xcle=633) Final Information (Auto Output)PROTHROMBIN TIME/[id number] 06:01:00 Test Item Value Reference Range Comments PROTIME (BEAKER) (test qcno=799) 15.9 sec 9.3-12.0 INR (BEAKER) (test vjfa=657) 1.5 <=5.9 RECOMMENDED COUMADIN/WARFARIN INR THERAPY RANGESSTANDARD DOSE: 2.0 - 3.0 Includes: PROPHYLAXIS forvenous thrombosis, systemic embolization; TREATMENT for venous thrombosis and/or pulmonary embolus.HIGH RISK: Target INR is 2.5-3.5 for patients with mechanical heart valves.Final Information (Auto Output)Final Information (Auto Output)[id number] 19:40:00 Test Item Value Reference Range Comments PARTIAL THROMBOPLASTIN TIME (BEAKER) (test 67.2 sec 23.0-35.0 cwch=868) Final Information (Auto Output)[id number] 10:46:00 Test Item Value Reference Range Comments PARTIAL THROMBOPLASTIN TIME (BEAKER) (test 63.5 sec 23.0-35.0 ktqc=087) Final Information (Auto Output)CBC W/PLT COUNT & AUTO [id number] 06:53:00 Test Item Value Reference Range Comments WHITE BLOOD CELL COUNT (BEAKER) (test ptny=431) 6.3 K/ L 4.0-10.0 RED BLOOD CELL COUNT (BEAKER) (test rdud=829) 3.98 M/ L 4.20-5.80 HEMOGLOBIN (BEAKER) (test dsrl=135) 9.2 GM/DL 13.0-16.8 HEMATOCRIT (BEAKER) (test jrad=322) 29.6 % 40.0-50.0 MEAN CORPUSCULAR VOLUME (BEAKER) (test gyxu=509) 74.3 fL 82.0-98.0 MEAN CORPUSCULAR HEMOGLOBIN (BEAKER) (test 23.1 pg 27.0-33.0 cpdz=054) MEAN CORPUSCULAR HEMOGLOBIN CONC (BEAKER) (test 31.1 GM/DL 32.0-36.0 hwpk=390) RED CELL DISTRIBUTION WIDTH (BEAKER) (test 23.2 % 10.3-14.2 fygw=105) PLATELET COUNT (BEAKER) (test bfvn=051) 356 K/CU MM 150-430 MEAN PLATELET VOLUME (BEAKER) (test dcao=642) 7.3 fL 6.5-10.5 NUCLEATED RED BLOOD CELLS (BEAKER) (test 0 /100 WBC 0-0 cvre=785) NEUTROPHILS RELATIVE PERCENT (BEAKER) (test 49 % awzu=823) LYMPHOCYTES RELATIVE PERCENT (BEAKER) (test 36 % jtcb=221) MONOCYTES RELATIVE PERCENT (BEAKER) (test 12 % quiu=843) EOSINOPHILS RELATIVE PERCENT (BEAKER) (test 3 % cqro=434) BASOPHILS RELATIVE PERCENT (BEAKER) (test 0 % prju=126) NEUTROPHILS ABSOLUTE COUNT (BEAKER) (test 3.10 K/ L 1.80-8.00 dabm=253) LYMPHOCYTES ABSOLUTE COUNT (BEAKER) (test 2.30 K/ L 1.48-4.50 nypt=159) MONOCYTES ABSOLUTE COUNT (BEAKER) (test 0.80 K/ L 0.00-1.30 bnch=501) EOSINOPHILS ABSOLUTE COUNT (BEAKER) (test 0.20 K/ L 0.00-0.50 mops=560) BASOPHILS ABSOLUTE COUNT (BEAKER) (test 0.00 K/ L 0.00-0.20 hgdp=003) (MANUAL DIFFERENTIAL)2018-04-24 06:53:00 Test Item Value Reference Range Comments TOTAL COUNTED (BEAKER) (test ztja=0596) WBC MORPHOLOGY (BEAKER) (test izuk=306) Normal PLT MORPHOLOGY (BEAKER) (test fucb=792) Normal ANISOCYTOSIS (BEAKER) (test zool=507) 2+ moderate BASOPHILIC STIPPLING (BEAKER) (test szxx=891) Present HYPOCHROMIA (BEAKER) (test pqqe=057) 2+ moderate MACROCYTES (BEAKER) (test wniq=770) 1+ few MICROCYTES (BEAKER) (test rpne=094) 1+ few POLYCHROMATOPHILLIC RBCS(BEAKER) (test qfhd=644) 1+ few PROTHROMBIN TIME/[id number] 05:46:00 Test Item Value Reference Range Comments PROTIME (BEAKER) (test thvy=516) 14.5 sec 9.3-12.0 INR (BEAKER) (test pcmy=303) 1.4 <=5.9 RECOMMENDED COUMADIN/WARFARIN INR THERAPY RANGESSTANDARD DOSE: 2.0 - 3.0 Includes: PROPHYLAXIS forvenous thrombosis, systemic embolization; TREATMENT for venous thrombosis and/or pulmonary embolus.HIGH RISK: Target INR is 2.5-3.5 for patients with mechanical heart valves.Final Information (Auto Output)Final Information (Auto Output)[id number] 01:17:00 Test Item Value Reference Range Comments PARTIAL THROMBOPLASTIN TIME (BEAKER) (test 71.8 sec 23.0-35.0 wele=130) Final Information (Auto Output)[id number] 15:40:00 Test Item Value Reference Range Comments PARTIAL THROMBOPLASTIN TIME (BEAKER) (test 34.8 sec 23.0-35.0 ocwp=567) Final Information (Auto Output)PROTHROMBIN TIME/[id number] 06:10:00 Test Item Value Reference Range Comments PROTIME (BEAKER) (test blnn=044) 12.2 sec 9.3-12.0 INR (BEAKER) (test njhy=698) 1.1 <=5.9 RECOMMENDED COUMADIN/WARFARIN INR THERAPY RANGESSTANDARD DOSE: 2.0 - 3.0 Includes: PROPHYLAXIS forvenous thrombosis, systemic embolization; TREATMENT for venous thrombosis and/or pulmonary embolus.HIGH RISK: Target INR is 2.5-3.5 for patients with mechanical heart valves.Final Information (Auto Output)Final Information (Auto Output)[id number] 06:10:00 Test Item Value Reference Range Comments PARTIAL THROMBOPLASTIN TIME (BEAKER) (test 36.3 sec 23.0-35.0 lnmc=059) Final Information (Auto Output)[id number] 20:01:00 Test Item Value Reference Range Comments PARTIAL THROMBOPLASTIN TIME (BEAKER) (test 122.6 sec 23.0-35.0 sdzr=273) Final Information (Auto Output)PROTHROMBIN [id number] 12:53:00 Test Item Value Reference Range Comments PROTIME (BEAKER) (test kpxt=321) 12.6 sec 9.3-12.0 INR (BEAKER) (test jmod=873) 1.2 <=5.9 RECOMMENDED COUMADIN/WARFARIN INR THERAPY RANGESSTANDARD DOSE: 2.0 - 3.0 Includes: PROPHYLAXIS forvenous thrombosis, systemic embolization; TREATMENT for venous thrombosis and/or pulmonary embolus.HIGH RISK: Target INR is 2.5-3.5 for patients with mechanical heart valves.Final Information (Auto Output)Final Information (Auto Output)PROTEIN ELECTROPHORESIS, [id number] 12:15:00 Test Item Value Reference Range Comments ALBUMIN FRACTION (BEAKER) 3.5 g/dL 3.5-5.5 (test tjhg=860) ALPHA 1 FRACTION (BEAKER) 0.2 g/dL 0.2-0.4 (test yhzf=120) ALPHA 2 FRACTION (BEAKER) 0.6 g/dL 0.5-0.9 (test cpkm=929) BETA FRACTION (BEAKER) (test 1.1 g/dL 0.6-1.1 qtrq=219) GAMMA GLOBULIN FRACTION 0.8 g/dL 0.7-1.7 (BEAKER) (test qbvd=802) INTERPRETATION-119 (BEAKER) All fractions present in (test byqz=8511) expected distribution. No monoclonal bands detected. [id number] (BEAKER) Annmarie Thomas MD (test nxsi=9750) (electronic signature) PROTEIN TOTAL SERUM, SPEP 6.3 gm/dL 6.0-8.3 (BEAKER) (test yzlx=4183) CBC W/PLT COUNT & AUTO [id number] 11:59:00 Test Item Value Reference Range Comments WHITE BLOOD CELL COUNT (BEAKER) (test wexf=861) 6.4 K/ L 4.0-10.0 RED BLOOD CELL COUNT (BEAKER) (test ntmy=729) 3.87 M/ L 4.20-5.80 HEMOGLOBIN (BEAKER) (test husb=781) 8.8 GM/DL 13.0-16.8 HEMATOCRIT (BEAKER) (test civf=981) 28.3 % 40.0-50.0 MEAN CORPUSCULAR VOLUME (BEAKER) (test lrur=897) 72.9 fL 82.0-98.0 MEAN CORPUSCULAR HEMOGLOBIN (BEAKER) (test 22.7 pg 27.0-33.0 xkul=607) MEAN CORPUSCULAR HEMOGLOBIN CONC (BEAKER) (test 31.1 GM/DL 32.0-36.0 irzs=845) RED CELL DISTRIBUTION WIDTH (BEAKER) (test 22.3 % 10.3-14.2 redm=681) PLATELET COUNT (BEAKER) (test ocnv=586) 339 K/CU MM 150-430 MEAN PLATELET VOLUME (BEAKER) (test ognr=800) 7.0 fL 6.5-10.5 NUCLEATED RED BLOOD CELLS (BEAKER) (test 0 /100 WBC 0-0 uajt=607) NEUTROPHILS RELATIVE PERCENT (BEAKER) (test 53 % sruy=755) LYMPHOCYTES RELATIVE PERCENT (BEAKER) (test 31 % pmll=430) MONOCYTES RELATIVE PERCENT (BEAKER) (test 13 % wroh=306) EOSINOPHILS RELATIVE PERCENT (BEAKER) (test 3 % mjqt=490) BASOPHILS RELATIVE PERCENT (BEAKER) (test 0 % wokg=771) NEUTROPHILS ABSOLUTE COUNT (BEAKER) (test 3.40 K/ L 1.80-8.00 ficv=867) LYMPHOCYTES ABSOLUTE COUNT (BEAKER) (test 2.00 K/ L 1.48-4.50 fybt=113) MONOCYTES ABSOLUTE COUNT (BEAKER) (test 0.80 K/ L 0.00-1.30 xqbm=653) EOSINOPHILS ABSOLUTE COUNT (BEAKER) (test 0.20 K/ L 0.00-0.50 svjh=475) BASOPHILS ABSOLUTE COUNT (BEAKER) (test 0.00 K/ L 0.00-0.20 upzu=698) (MANUAL DIFFERENTIAL)2018-04-22 11:59:00 Test Item Value Reference Range Comments TOTAL COUNTED (BEAKER) (test agsu=6075) WBC MORPHOLOGY (BEAKER) (test jlts=000) Normal PLT MORPHOLOGY (BEAKER) (test xhwk=650) Normal ANISOCYTOSIS (BEAKER) (test ldtb=145) 2+ moderate HYPOCHROMIA (BEAKER) (test fkcq=217) 3+ many PROTHROMBIN GENE [id number] 11:51:00 Test Item Value Reference Range Comments PROTHROMBIN/FACTOR II Negative for the [id number] (BEAKER) (test mpiq=8445) (Prothrombin/Factor II) mutation. [id number](NIMO Thomas MD ) (test ljbf=6765) (electronic signature) This test is a genotyping assay which evaluates the DNA sequence at position 85733 of the prothrombin (Factor II) gene. A [...] and its performance characteristics determined by the [facility] Pathology Department, Section of [...] Value Reference Range Comments FACTOR V LEIDEN (AKER) Negative for the R506Q (Factor (test vmxp=141) V Leiden) mutation [id number] ([facility]) Annmarie Thomas MD (test wniu=0033) (electronic signature) This test is a genotyping [...] was developed and its performance characteristics determined bythe [facility] Pathology [facility], Section of Molecular Pathology. It has not been cleared or approved by the U.S. Food and Drug Administration (FDA), since FDA approval is not required for clinical use of the test. Validation was done as required by the Clinical Laboratory Improvement Amendments of 1988.[id number] 10:00:00 Test Item Value Reference Range Comments PARTIAL THROMBOPLASTIN TIME ([place]) (test tmxa=335) > sec 23.0-35.0 Final Information (Auto Output)[id number] 00:43:00 Test Item Value Reference Range Comments PARTIAL THROMBOPLASTIN TIME (BEAKER) (test 81.0 sec 23.0-35.0 vmhn=828) Final Information (Auto Output)[id number] 17:32:00 Test Item Value Reference Range Comments PARTIAL THROMBOPLASTIN TIME (BEAKER) (test 37.3 sec 23.0-35.0 rxqj=182) Final Information (Auto Output)CBC W/PLT COUNT & AUTO [id number] 08:19:00 Test Item Value Reference Range Comments WHITE BLOOD CELL COUNT (BEAKER) (test jajq=332) 6.2 K/ L 4.0-10.0 RED BLOOD CELL COUNT (BEAKER) (test dxok=627) 3.89 M/ L 4.20-5.80 HEMOGLOBIN (BEAKER) (test uzmd=634) 8.7 GM/DL 13.0-16.8 HEMATOCRIT (BEAKER) (test vzol=918) 27.8 % 40.0-50.0 MEAN CORPUSCULAR VOLUME (BEAKER) (test klef=775) 71.4 fL 82.0-98.0 MEAN CORPUSCULAR HEMOGLOBIN (BEAKER) (test 22.4 pg 27.0-33.0 akul=007) MEAN CORPUSCULAR HEMOGLOBIN CONC (BEAKER) (test 31.4 GM/DL 32.0-36.0 lkur=075) RED CELL DISTRIBUTION WIDTH (BEAKER) (test 21.7 % 10.3-14.2 gbtr=596) PLATELET COUNT (BEAKER) (test juui=909) 347 K/CU MM 150-430 MEAN PLATELET VOLUME (BEAKER) (test xxdu=077) 7.1 fL 6.5-10.5 NUCLEATED RED BLOOD CELLS (BEAKER) (test 0 /100 WBC 0-0 uacl=447) NEUTROPHILS RELATIVE PERCENT (BEAKER) (test 52 % xcbp=998) LYMPHOCYTES RELATIVE PERCENT (BEAKER) (test 34 % aoxj=320) MONOCYTES RELATIVE PERCENT (BEAKER) (test 10 % xqfj=817) EOSINOPHILS RELATIVE PERCENT (BEAKER) (test 3 % vjuk=301) BASOPHILS RELATIVE PERCENT (BEAKER) (test 0 % hkxb=543) NEUTROPHILS ABSOLUTE COUNT (BEAKER) (test 3.20 K/ L 1.80-8.00 jdbv=329) LYMPHOCYTES ABSOLUTE COUNT (BEAKER) (test 2.10 K/ L 1.48-4.50 dnal=976) MONOCYTES ABSOLUTE COUNT (BEAKER) (test 0.60 K/ L 0.00-1.30 ayfr=019) EOSINOPHILS ABSOLUTE COUNT (BEAKER) (test 0.20 K/ L 0.00-0.50 yoya=619) BASOPHILS ABSOLUTE COUNT (BEAKER) (test 0.00 K/ L 0.00-0.20 olzn=498) (MANUAL DIFFERENTIAL)2018-04-21 08:19:00 Test Item Value Reference Range Comments TOTAL COUNTED (BEAKER) (test tupz=4496) WBC MORPHOLOGY (BEAKER) (test pmwe=008) Normal PLT MORPHOLOGY (BEAKER) (test roqb=439) Normal ANISOCYTOSIS (BEAKER) (test secl=338) 2+ moderate HYPOCHROMIA (BEAKER) (test temn=776) 2+ moderate MICROCYTES (BEAKER) (test cmzf=141) 1+ few POLYCHROMATOPHILLIC RBCS(BEAKER) (test xlhs=469) 1+ few BASIC METABOLIC [id number] 08:00:00 Test Item Value Reference Range Comments SODIUM (BEAKER) (test 141 meq/L 135-148 bmvw=257) POTASSIUM (BEAKER) (test 3.6 meq/L 3.6-5.5 owfk=790) CHLORIDE (BEAKER) (test 109 meq/L 98-106 tkgh=108) CO2 (BEAKER) (test 24 meq/L 20-29 jgqw=441) BLOOD UREA NITROGEN 9 mg/dL 10-26 (BEAKER) (test jdyh=330) CREATININE (BEAKER) (test 0.76 mg/dL 0.50-1.20 ngdt=745) GLUCOSE RANDOM (BEAKER) 86 mg/dL 70-110 (test qkys=793) CALCIUM (BEAKER) (test 9.0 mg/dL 8.5-10.5 jkgc=223) EGFR (BEAKER) (test 110 mL/min/1.73 sq m ESTIMATED GFR IS NOT agju=5161) ACCURATE CREATININE CLEARANCE IN PREDICTING GLOMERULAR FILTRATION RATE. ESTIMATED GFR IS NOT APPLICABLE FOR DIALYSIS PATIENTS. PROTHROMBIN TIME/[id number] 07:55:00 Test Item Value Reference Range Comments PROTIME (BEAKER) (test anjl=482) 11.4 sec 9.3-12.0 INR (BEAKER) (test iyve=289) 1.1 <=5.9 RECOMMENDED COUMADIN/WARFARIN INR THERAPY RANGESSTANDARD DOSE: 2.0 - 3.0 Includes: PROPHYLAXIS forvenous thrombosis, systemic embolization; TREATMENT for venous thrombosis and/or pulmonary embolus.HIGH RISK: Target INR is 2.5-3.5 for patients with mechanical heart valves.Final Information (Auto Output)Final Information (Auto Output)[id number] 07:52:00 Test Item Value Reference Range Comments PARTIAL THROMBOPLASTIN TIME (BEAKER) (test 71.6 sec 23.0-35.0 jsvo=407) Final Information (Auto Output)[id number] 22:28:00 Test Item Value Reference Range Comments PARTIAL THROMBOPLASTIN TIME (BEAKER) (test 119.3 sec 23.0-35.0 zzvl=393) Final Information (Auto Output)CBC (HEMOGRAM ONLY)2018-04-20 21:32:00 Test Item Value Reference Range Comments WHITE BLOOD CELL COUNT (BEAKER) (test itrb=867) 7.0 K/ L 4.0-10.0 RED BLOOD CELL COUNT (BEAKER) (test yizx=688) 3.89 M/ L 4.20-5.80 HEMOGLOBIN (BEAKER) (test beqz=213) 8.8 GM/DL 13.0-16.8 HEMATOCRIT (BEAKER) (test onvh=613) 27.6 % 40.0-50.0 MEAN CORPUSCULAR VOLUME (BEAKER) (test xaux=035) 70.8 fL 82.0-98.0 MEAN CORPUSCULAR HEMOGLOBIN (BEAKER) (test 22.6 pg 27.0-33.0 buqg=491) MEAN CORPUSCULAR HEMOGLOBIN CONC (BEAKER) (test 32.0 GM/DL 32.0-36.0 nftd=059) RED CELL DISTRIBUTION WIDTH (BEAKER) (test 20.0 % 10.3-14.2 ttry=828) PLATELET COUNT (BEAKER) (test kyuc=704) 360 K/CU MM 150-430 MEAN PLATELET VOLUME (BEAKER) (test mscf=850) 7.4 fL 6.5-10.5 [id number] 12:43:00 Test Item Value Reference Range Comments PARTIAL THROMBOPLASTIN TIME (BEAKER) (test 72.2 sec 23.0-35.0 nzoe=086) Final Information (Auto Output)CARDIOLIPIN ANTIBODIES, IGG AND [id number] 12: 16:00 Test Item Value Reference Range Comments ANTICARDIOLIPIN IGG ANTIBODY (BEAKER) (test < GPL <20.0 kofn=708) ANTICARDIOLIPIN IGM ANTIBODY (BEAKER) (test 0.5 MPL <20.0 xzes=400) Anticardiolipin IgG Result Interpretation: <20.0 GPL Normal>/=20.0 GPL PositiveAnticardiolipin IgM Result Interpretation: <20.0 MPL Normal>/= 20.0 MPL PositiveCBC W/PLT COUNT & AUTO [id number] 08:58:00 Test Item Value Reference Range Comments WHITE BLOOD CELL COUNT (BEAKER) (test fqya=155) 6.4 K/ L 4.0-10.0 RED BLOOD CELL COUNT (BEAKER) (test cdun=727) 4.00 M/ L 4.20-5.80 HEMOGLOBIN (BEAKER) (test iqla=398) 9.0 GM/DL 13.0-16.8 HEMATOCRIT (BEAKER) (test vdsr=396) 28.6 % 40.0-50.0 MEAN CORPUSCULAR VOLUME (BEAKER) (test rxvo=184) 71.7 fL 82.0-98.0 MEAN CORPUSCULAR HEMOGLOBIN (BEAKER) (test 22.5 pg 27.0-33.0 gawg=181) MEAN CORPUSCULAR HEMOGLOBIN CONC (BEAKER) (test 31.4 GM/DL 32.0-36.0 mjap=233) RED CELL DISTRIBUTION WIDTH (BEAKER) (test 21.7 % 10.3-14.2 exjd=870) PLATELET COUNT (BEAKER) (test rmgc=148) 355 K/CU MM 150-430 MEAN PLATELET VOLUME (BEAKER) (test foud=959) 7.1 fL 6.5-10.5 NUCLEATED RED BLOOD CELLS (BEAKER) (test 0 /100 WBC 0-0 ysdr=081) NEUTROPHILS RELATIVE PERCENT (BEAKER) (test 48 % twto=183) LYMPHOCYTES RELATIVE PERCENT (BEAKER) (test 36 % okzo=450) MONOCYTES RELATIVE PERCENT (BEAKER) (test 12 % sdgh=796) EOSINOPHILS RELATIVE PERCENT (BEAKER) (test 4 % ebgi=279) BASOPHILS RELATIVE PERCENT (BEAKER) (test 0 % gdtb=573) NEUTROPHILS ABSOLUTE COUNT (BEAKER) (test 3.10 K/ L 1.80-8.00 mfpo=945) LYMPHOCYTES ABSOLUTE COUNT (BEAKER) (test 2.30 K/ L 1.48-4.50 wpfk=559) MONOCYTES ABSOLUTE COUNT (BEAKER) (test 0.80 K/ L 0.00-1.30 rrna=910) EOSINOPHILS ABSOLUTE COUNT (BEAKER) (test 0.20 K/ L 0.00-0.50 xjyt=115) BASOPHILS ABSOLUTE COUNT (BEAKER) (test 0.00 K/ L 0.00-0.20 ahfx=790) (MANUAL DIFFERENTIAL)2018-04-20 08:58:00 Test Item Value Reference Range Comments TOTAL COUNTED (BEAKER) (test ggql=0937) WBC MORPHOLOGY (BEAKER) (test jsqf=574) Normal PLT MORPHOLOGY (BEAKER) (test lwbh=270) Normal ANISOCYTOSIS (BEAKER) (test tlfj=446) 1+ few HYPOCHROMIA (BEAKER) (test yvru=649) 1+ few POIKILOCYTES (BEAKER) (test ytkt=160) 1+ few POLYCHROMATOPHILLIC RBCS(BEAKER) (test gqpe=432) 1+ few BASIC METABOLIC [id number] 08:26:00 Test Item Value Reference Range Comments SODIUM (BEAKER) (test 140 meq/L 135-148 puit=290) POTASSIUM (BEAKER) (test 3.9 meq/L 3.6-5.5 kelr=926) CHLORIDE (BEAKER) (test 107 meq/L 98-106 cefu=336) CO2 (BEAKER) (test 24 meq/L 20-29 zugi=626) BLOOD UREA NITROGEN 12 mg/dL 10-26 (BEAKER) (test epnm=700) CREATININE (BEAKER) (test 0.76 mg/dL 0.50-1.20 yuhh=679) GLUCOSE RANDOM (BEAKER) 92 mg/dL 70-110 (test ktin=403) CALCIUM (BEAKER) (test 8.9 mg/dL 8.5-10.5 udtl=589) EGFR (BEAKER) (test 110 mL/min/1.73 sq m ESTIMATED GFR IS NOT swnd=2920) ACCURATE CREATININE CLEARANCE IN PREDICTING GLOMERULAR FILTRATION RATE. ESTIMATED GFR IS NOT APPLICABLE FOR DIALYSIS PATIENTS. PROTHROMBIN TIME/[id number] 08:16:00 Test Item Value Reference Range Comments PROTIME (BEAKER) (test yxqe=563) 10.6 sec 9.3-12.0 INR (BEAKER) (test ukmg=447) 1.0 <=5.9 RECOMMENDED COUMADIN/WARFARIN INR THERAPY RANGESSTANDARD DOSE: 2.0 - 3.0 Includes: PROPHYLAXIS forvenous thrombosis, systemic embolization; TREATMENT for venous thrombosis and/or pulmonary embolus.HIGH RISK: Target INR is 2.5-3.5 for patients with mechanical heart valves.Final Information (Auto Output)Final Information (Auto Output)[id number] 08:16:00 Test Item Value Reference Range Comments D-DIMER QUANTITATIVE (BEAKER) (test rdyv=763) 0.93 mg/L <0.50 REGARDING D-DIMER RESULTS: The 98% NPV (Negative Predictive Value) for DVT/PE exclusion is 0.50 mg/LFEU as suggested by the shingle bolt cutter and as approved by the FDA.Final Information (Auto Output)[id number] 02:51:00 Test Item Value Reference Range Comments PARTIAL THROMBOPLASTIN TIME (BEAKER) (test rpuv=672) > sec 23.0-35.0 Final Information (Auto Output)[id number] 17:54:00 Test Item Value Reference Range Comments PARTIAL THROMBOPLASTIN TIME (BEAKER) (test 72.2 sec 23.0-35.0 uufo=960) Final Information (Auto Output)ANTITHROMBIN [id number] 11:29:00 Test Item Value Reference Range Comments ANTITHROMBIN III ACTIVITY (BEAKER) (test eprq=266) 81.0 % 80.0-120.0 CBC W/PLT COUNT & AUTO [id number] 10:34:00 Test Item Value Reference Range Comments WHITE BLOOD CELL COUNT (BEAKER) (test szps=256) 6.6 K/ L 4.0-10.0 RED BLOOD CELL COUNT (BEAKER) (test lbip=605) 3.93 M/ L 4.20-5.80 HEMOGLOBIN (BEAKER) (test wish=286) 8.9 GM/DL 13.0-16.8 HEMATOCRIT (BEAKER) (test eriy=674) 28.3 % 40.0-50.0 MEAN CORPUSCULAR VOLUME (BEAKER) (test lwoj=446) 71.9 fL 82.0-98.0 MEAN CORPUSCULAR HEMOGLOBIN (BEAKER) (test 22.5 pg 27.0-33.0 qoeo=653) MEAN CORPUSCULAR HEMOGLOBIN CONC (BEAKER) (test 31.3 GM/DL 32.0-36.0 mloa=250) RED CELL DISTRIBUTION WIDTH (BEAKER) (test 21.0 % 10.3-14.2 odws=331) PLATELET COUNT (BEAKER) (test iexu=044) 339 K/CU MM 150-430 MEAN PLATELET VOLUME (BEAKER) (test spnv=987) 7.2 fL 6.5-10.5 NUCLEATED RED BLOOD CELLS (BEAKER) (test 0 /100 WBC 0-0 icyy=572) NEUTROPHILS RELATIVE PERCENT (BEAKER) (test 52 % qjyx=214) LYMPHOCYTES RELATIVE PERCENT (BEAKER) (test 32 % aetq=212) MONOCYTES RELATIVE PERCENT (BEAKER) (test 11 % bukh=201) EOSINOPHILS RELATIVE PERCENT (BEAKER) (test 4 % hdzk=253) BASOPHILS RELATIVE PERCENT (BEAKER) (test 0 % olmu=823) NEUTROPHILS ABSOLUTE COUNT (BEAKER) (test 3.40 K/ L 1.80-8.00 laos=153) LYMPHOCYTES ABSOLUTE COUNT (BEAKER) (test 2.10 K/ L 1.48-4.50 nvle=473) MONOCYTES ABSOLUTE COUNT (BEAKER) (test 0.70 K/ L 0.00-1.30 omvk=641) EOSINOPHILS ABSOLUTE COUNT (BEAKER) (test 0.30 K/ L 0.00-0.50 kdlq=587) BASOPHILS ABSOLUTE COUNT (BEAKER) (test 0.00 K/ L 0.00-0.20 ghtr=065) (MANUAL DIFFERENTIAL)2018-04-19 10:34:00 Test Item Value Reference Range Comments TOTAL COUNTED (BEAKER) (test etlx=8067) WBC MORPHOLOGY (BEAKER) (test nuvr=210) Normal PLT MORPHOLOGY (BEAKER) (test vxbs=537) Normal ANISOCYTOSIS (BEAKER) (test fpuq=101) 3+ many HYPOCHROMIA (BEAKER) (test fnas=599) 2+ moderate MICROCYTES (BEAKER) (test jefz=773) 1+ few TROPONIN [id number] 09:42:00 Test Item Value Reference Range Comments TROPONIN I (BEAKER) (test tkuo=078) < ng/mL 0.00-0.15 Troponin I (TnI) levels [...] acute neurological disease, and persistent tachyarrhythmia.BASIC METABOLIC [id number] 09:34:00 Test Item Value Reference Range Comments SODIUM (BEAKER) (test 140 meq/L 135-148 zhoc=398) POTASSIUM (BEAKER) (test 3.8 meq/L 3.6-5.5 oixc=288) CHLORIDE (BEAKER) (test 107 meq/L 98-106 cmex=369) CO2 (BEAKER) (test 25 meq/L 20-29 clqc=703) BLOOD UREA NITROGEN 12 mg/dL 10-26 (BEAKER) (test itls=365) CREATININE (BEAKER) (test 0.83 mg/dL 0.50-1.20 yemj=846) GLUCOSE RANDOM (BEAKER) 106 mg/dL 70-110 (test jkpp=493) CALCIUM (BEAKER) (test 9.1 mg/dL 8.5-10.5 zrio=004) EGFR (BEAKER) (test 99 mL/min/1.73 sq m ESTIMATED GFR IS NOT hblj=4985) ACCURATE CREATININE CLEARANCE IN PREDICTING GLOMERULAR FILTRATION RATE. ESTIMATED GFR IS NOT APPLICABLE FOR DIALYSIS PATIENTS. [id number] 05:06:00 Test Item Value Reference Range Comments PROTIME (BEAKER) (test jfiz=239) 10.0 sec 9.3-12.0 INR (BEAKER) (test zauz=958) 0.9 <=5.9 PARTIAL THROMBOPLASTIN TIME (BEAKER) (test 26.5 sec 23.0-35.0 olrb=304) RECOMMENDED COUMADIN/WARFARIN INR THERAPY RANGESSTANDARD DOSE: 2.0 - 3.0 Includes: PROPHYLAXIS forvenous thrombosis, systemic embolization; TREATMENT for venous thrombosis and/or pulmonary embolus.HIGH RISK: Target INR is 2.5-3.5 for patients with mechanical heart valves.Final Information (Auto Output)Final Information (Auto Output)Final Information (Auto Output)TROPONIN [id number] 20: 04:00 Test Item Value Reference Range Comments TROPONIN I (BEAKER) (test eipd=892) < ng/mL 0.00-0.15 Troponin I (TnI) levels [...] failure, acidosis, acute neurological disease, and persistent tachyarrhythmia.[id number] 20:01:00 Test Item Value Reference Range Comments HOMOCYSTEINE (BEAKER) (test qnaq=243) 6.1 umol/L 5.1-15.4 VITAMIN B12 AND [id number] 18:10:00 Test Item Value Reference Range Comments VITAMIN B12 (BEAKER) (test qmif=458) 497 pg/mL 213-816 FOLATE (BEAKER) (test mwcv=103) 6.5 ng/mL >=7.0 IRON, TIBC, % SAT. (WITHOUT FERRITIN)2018-04-18 17:43:00 Test Item Value Reference Range Comments IRON (BEAKER) (test qkfo=476) 16 ug/dL 40-160 TOTAL IRON BINDING CAPACITY (BEAKER) (test 468 ug/dL 250-450 dcwj=424) IRON % SATURATION (2) (BEAKER) (test alrh=6395) 3 % 20-55 [id number] 13:31:00 Test Item Value Reference Range Comments PROTIME (BEAKER) (test ityf=112) 10.9 sec 9.3-12.0 INR (BEAKER) (test qlmn=854) 1.0 <=5.9 PARTIAL THROMBOPLASTIN TIME (BEAKER) (test 131.9 sec 23.0-35.0 zrqm=163) RECOMMENDED COUMADIN/WARFARIN INR THERAPY RANGESSTANDARD DOSE: 2.0 - 3.0 Includes: PROPHYLAXIS forvenous thrombosis, systemic embolization; TREATMENT for venous thrombosis and/or pulmonary embolus.HIGH RISK: Target INR is 2.5-3.5 for patients with mechanical heart valves.Final Information (Auto Output)Final Information (Auto Output)Final Information (Auto Output)PATIENT ON BLOOD THINNER PER [facility] [id number] DOPPLER LEGS, [id number] 12:31: 00Reason for exam:->PEFINAL REPORT History: Lower [...] MDReport Verified Date/Time: 04/18/2018 12:31:58 Reading Location: [facility] Radiology Reading Room Electronically signed by: TREMAYNE TAPIA M.D. on 06/2018 12:31 [id number] 12:28:00 Test Item Value Reference Range Comments FERRITIN (BEAKER) (test lkjh=203) 8 ng/mL 22-322 LACTATE DEHYDROGENASE (LDH)2018-04-18 11:27:00 Test Item Value Reference Range Comments LACTATE DEHYDROGENASE (BEAKER) (test bhyb=826) 174 U/L 107-206 RETICULOCYTE [id number] 11:11:00 Test Item Value Reference Range Comments RETICULOCYTE COUNT PCT (BEAKER) (test bllr=258) 1.5 % 0.4-2.9 TROPONIN [id number] 06:08:00 Test Item Value Reference Range Comments TROPONIN I (BEAKER) (test gsyi=112) < ng/mL 0.00-0.15 Troponin I (TnI) levels [...] acute neurological disease, and persistent tachyarrhythmia.BASIC METABOLIC [id number] 06:00:00 Test Item Value Reference Range Comments SODIUM (BEAKER) (test 138 meq/L 135-148 tteg=476) POTASSIUM (BEAKER) (test 3.7 meq/L 3.6-5.5 awnr=938) CHLORIDE (BEAKER) (test 107 meq/L 98-106 jfyw=638) CO2 (BEAKER) (test 24 meq/L 20-29 anfd=152) BLOOD UREA NITROGEN 8 mg/dL 10-26 (BEAKER) (test dtto=940) CREATININE (BEAKER) (test 0.84 mg/dL 0.50-1.20 lfcv=545) GLUCOSE RANDOM (BEAKER) 86 mg/dL 70-110 (test chlo=181) CALCIUM (BEAKER) (test 8.2 mg/dL 8.5-10.5 xrgz=095) EGFR (BEAKER) (test 98 mL/min/1.73 sq m ESTIMATED GFR IS NOT ucrd=2619) ACCURATE CREATININE CLEARANCE IN PREDICTING GLOMERULAR FILTRATION RATE. ESTIMATED GFR IS NOT APPLICABLE FOR DIALYSIS PATIENTS. [id number] 01:22:00 Test Item Value Reference Range Comments PARTIAL THROMBOPLASTIN TIME (BEAKER) (test 23.3 seconds 23.0-35.0 hpae=794) CBC (HEMOGRAM ONLY)2018-04-18 01:12:00 Test Item Value Reference Range Comments WHITE BLOOD CELL COUNT (BEAKER) (test nzxp=052) 7.5 K/ L 4.0-10.0 RED BLOOD CELL COUNT (BEAKER) (test etmo=426) 3.77 M/ L 4.20-5.80 HEMOGLOBIN (BEAKER) (test zysm=488) 8.0 GM/DL 13.0-16.8 HEMATOCRIT (BEAKER) (test mixb=723) 26.3 % 40.0-50.0 MEAN CORPUSCULAR VOLUME (BEAKER) (test ftlm=708) 69.7 fL 82.0-98.0 MEAN CORPUSCULAR HEMOGLOBIN (BEAKER) (test 21.2 pg 27.0-33.0 rizf=720) MEAN CORPUSCULAR HEMOGLOBIN CONC (BEAKER) (test 30.4 GM/DL 32.0-36.0 ihhk=678) RED CELL DISTRIBUTION WIDTH (BEAKER) (test 19.2 % 10.3-14.2 cygh=981) PLATELET COUNT (BEAKER) (test suln=612) 395 K/CU MM 150-430 MEAN PLATELET VOLUME (BEAKER) (test pgff=507) 7.6 fL 6.5-10.5 CT, CHEST WITH IV CONTRAST- PE TEST [id number] 23:21:00Reason for exam:-& gt;CHEST PAINWhat is the [...] MDReport Verified Date/Time: 04/17/2018 23:21:52 Reading Location: [address] Reading Room Electronically signed by: ERON CHAUHAN M.D. on 05/2018 11:21 PMCREATINE KINASE (CK), TOTAL AND [id number] 22:25:00 Test Item Value Reference Range Comments CREATINE KINASE TOTAL (BEAKER) (test ltou=198) 87 U/L 40-250 CREATINE KINASE-MB (BEAKER) (test akph=517) 1.1 ng/mL 0.0-4.9 CREATINE KINASE-MB INDEX (BEAKER) (test cssa=668) 1.3 % CK-MB Reference Range:<5 Normal5-10 Borderline>10 AbnormalTSH/FREE T4 IF [id number] 22:07:00 Test Item Value Reference Range Comments THYROID STIMULATING HORMONE (BEAKER) (test 0.71 uIU/mL 0.35-5.50 mmqy=599) B-TYPE NATRIURETIC FACTOR (BNP)2018-04-17 21:44:00 Test Item Value Reference Range Comments B-TYPE NATRIURETIC PEPTIDE (BEAKER) (test xnub=480) 8 pg/mL 0-100 TROPONIN [id number] 21:43:00 Test Item Value Reference Range Comments TROPONIN I (BEAKER) (test fvgz=848) < ng/mL 0.00-0.15 Troponin I (TnI) levels [...] acute neurological disease, and persistent tachyarrhythmia.BASIC METABOLIC [id number] 21:39:00 Test Item Value Reference Range Comments SODIUM (BEAKER) (test 140 meq/L 135-148 scsh=549) POTASSIUM (BEAKER) (test 3.6 meq/L 3.6-5.5 kvkr=073) CHLORIDE (BEAKER) (test 106 meq/L 98-106 iupm=956) CO2 (BEAKER) (test 21 meq/L 20-29 esrd=408) BLOOD UREA NITROGEN 7 mg/dL 10-26 (BEAKER) (test ahuf=630) CREATININE (BEAKER) (test 1.00 mg/dL 0.50-1.20 qsmn=691) GLUCOSE RANDOM (BEAKER) 140 mg/dL 70-110 (test jjth=820) CALCIUM (BEAKER) (test 9.1 mg/dL 8.5-10.5 tnkd=752) EGFR (BEAKER) (test 80 mL/min/1.73 sq m ESTIMATED GFR IS NOT voyy=3624) ACCURATE CREATININE CLEARANCE IN PREDICTING GLOMERULAR FILTRATION RATE. ESTIMATED GFR IS NOT APPLICABLE FOR DIALYSIS PATIENTS. PROTHROMBIN TIME/[id number] 21:28:00 Test Item Value Reference Range Comments PROTIME (BEAKER) (test meos=034) 10.1 sec 9.3-12.0 INR (BEAKER) (test nbbq=714) 0.9 <=5.9 RECOMMENDED COUMADIN/WARFARIN INR THERAPY RANGESSTANDARD DOSE: 2.0 - 3.0 Includes: PROPHYLAXIS forvenous thrombosis, systemic embolization; TREATMENT for venous thrombosis and/or pulmonary embolus.HIGH RISK: Target INR is 2.5-3.5 for patients with mechanical heart valves.Final Information (Auto Output)Final Information (Auto Output)CBC W/PLT COUNT & AUTO [id number] 21:25 :00 Test Item Value Reference Range Comments WHITE BLOOD CELL COUNT (BEAKER) (test rafn=853) 5.7 K/ L 4.0-10.0 RED BLOOD CELL COUNT (BEAKER) (test sqjk=400) 3.76 M/ L 4.20-5.80 HEMOGLOBIN (BEAKER) (test hejv=175) 7.9 GM/DL 13.0-16.8 HEMATOCRIT (BEAKER) (test xlzy=619) 25.9 % 40.0-50.0 MEAN CORPUSCULAR VOLUME (BEAKER) (test kgow=419) 69.0 fL 82.0-98.0 MEAN CORPUSCULAR HEMOGLOBIN (BEAKER) (test 21.0 pg 27.0-33.0 qnkv=874) MEAN CORPUSCULAR HEMOGLOBIN CONC (BEAKER) (test 30.4 GM/DL 32.0-36.0 vffm=365) RED CELL DISTRIBUTION WIDTH (BEAKER) (test 20.9 % 10.3-14.2 wnzh=878) PLATELET COUNT (BEAKER) (test mjfw=201) 411 K/CU MM 150-430 MEAN PLATELET VOLUME (BEAKER) (test spxt=432) 6.9 fL 6.5-10.5 NUCLEATED RED BLOOD CELLS (BEAKER) (test 0 /100 WBC 0-0 esae=546) NEUTROPHILS RELATIVE PERCENT (BEAKER) (test 49 % mabv=466) LYMPHOCYTES RELATIVE PERCENT (BEAKER) (test 35 % fred=553) MONOCYTES RELATIVE PERCENT (BEAKER) (test 12 % jpfl=475) EOSINOPHILS RELATIVE PERCENT (BEAKER) (test 4 % winu=060) BASOPHILS RELATIVE PERCENT (BEAKER) (test 0 % ggtc=727) NEUTROPHILS ABSOLUTE COUNT (BEAKER) (test 2.80 K/ L 1.80-8.00 kfnp=977) LYMPHOCYTES ABSOLUTE COUNT (BEAKER) (test 2.00 K/ L 1.48-4.50 lhfq=026) MONOCYTES ABSOLUTE COUNT (BEAKER) (test 0.70 K/ L 0.00-1.30 ofhl=296) EOSINOPHILS ABSOLUTE COUNT (BEAKER) (test 0.20 K/ L 0.00-0.50 krdc=827) BASOPHILS ABSOLUTE COUNT (BEAKER) (test 0.00 K/ L 0.00-0.20 faud=378) ERYTHROCYTE SED [id number] 22:37:00 Test Item Value Reference Range Comments [...] old=0-20 mm/hr Males 50-999 years old=0-25 mm/hr [id number] 22:06:00 Test Item Value Reference Range Comments [...] mL/min/1.73m\\S\\2 EGFR if Non- >60 Estimated Glomerular Taiwanese (test mL/min/1.73m\\S\\2 Filtration Rate (eGFR) code=EGFRNA) Reference [...] chronic kidney failure. XR CHEST AP/PA 1 [id number] 22:01:15Procedure: AP View ChestOrder date: 2017 9:16 PMOrdering Provider: ILIANA Robertsoninical Indication: chest pain, Chest painComparison: January 29, 2018Findings:Stable right-sided Port-A- Cath.Cardiomediastinal silhouette is within normal limits.The lungs are clear. No large pleural effusions or pneumothorax. Osseousstructures are nonacute.No evidence of active tuberculosis.Impression:No acute cardiopulmonary process.This final report was electronically signed by Dr Cesar Beach MD 04/159:54 PMDictated By: CESAR BEACHDate: 04/15/2018 22:01D-DIMER [id number] 21:53:00 Test Item Value Reference Range Comments [...] probability of thromboembolic disease. CBC WITH AUTO [id number] 21:43:00 Test Item Value Reference Range Comments [...] 0.0-0.4 AUTO DIFFCBC W/PLT COUNT & AUTO [id number] 08:53:00 Test Item Value Reference Range Comments WHITE BLOOD CELL COUNT (BEAKER) (test vrbi=089) 6.9 K/ L 4.0-10.0 RED BLOOD CELL COUNT (BEAKER) (test iuwx=316) 3.56 M/ L 4.20-5.80 HEMOGLOBIN (BEAKER) (test gyir=795) 8.5 GM/DL 13.0-16.8 HEMATOCRIT (BEAKER) (test cdtn=605) 26.5 % 40.0-50.0 MEAN CORPUSCULAR VOLUME (BEAKER) (test rznr=227) 74.5 fL 82.0-98.0 MEAN CORPUSCULAR HEMOGLOBIN (BEAKER) (test 23.8 pg 27.0-33.0 ymmb=859) MEAN CORPUSCULAR HEMOGLOBIN CONC (BEAKER) (test 31.9 GM/DL 32.0-36.0 nddj=852) RED CELL DISTRIBUTION WIDTH (BEAKER) (test 20.1 % 10.3-14.2 khtq=025) PLATELET COUNT (BEAKER) (test zfet=259) 372 K/CU MM 150-430 MEAN PLATELET VOLUME (BEAKER) (test iszb=272) 6.8 fL 6.5-10.5 NUCLEATED RED BLOOD CELLS (BEAKER) (test 0 /100 WBC 0-0 hwdq=381) NEUTROPHILS RELATIVE PERCENT (BEAKER) (test 55 % rsgn=487) LYMPHOCYTES RELATIVE PERCENT (BEAKER) (test 30 % mjir=983) MONOCYTES RELATIVE PERCENT (BEAKER) (test 13 % onzj=244) EOSINOPHILS RELATIVE PERCENT (BEAKER) (test 2 % lern=312) BASOPHILS RELATIVE PERCENT (BEAKER) (test 0 % hgqk=874) NEUTROPHILS ABSOLUTE COUNT (BEAKER) (test 3.80 K/ L 1.80-8.00 cfgd=117) LYMPHOCYTES ABSOLUTE COUNT (BEAKER) (test 2.10 K/ L 1.48-4.50 chqp=737) MONOCYTES ABSOLUTE COUNT (BEAKER) (test 0.90 K/ L 0.00-1.30 oeni=152) EOSINOPHILS ABSOLUTE COUNT (BEAKER) (test 0.10 K/ L 0.00-0.50 hyen=423) BASOPHILS ABSOLUTE COUNT (BEAKER) (test 0.00 K/ L 0.00-0.20 lswj=845) (MANUAL DIFFERENTIAL)2018-02-01 08:53:00 Test Item Value Reference Range Comments TOTAL COUNTED (BEAKER) (test vcfb=4628) WBC MORPHOLOGY (BEAKER) (test svsd=234) Normal PLT MORPHOLOGY (BEAKER) (test ankh=772) Normal ANISOCYTOSIS (BEAKER) (test izzm=297) 2+ moderate HYPOCHROMIA (BEAKER) (test prfy=368) 3+ many MICROCYTES (BEAKER) (test uzwr=793) 1+ few TROPONIN [id number] 07:05:00 Test Item Value Reference Range Comments TROPONIN I (BEAKER) (test ucyj=769) < ng/mL 0.00-0.15 Troponin I (TnI) levels [...] acute neurological disease, and persistent tachyarrhythmia.BASIC METABOLIC [id number] 06:55:00 Test Item Value Reference Range Comments SODIUM (BEAKER) (test 140 meq/L 135-148 jjnd=067) POTASSIUM (BEAKER) (test 3.8 meq/L 3.6-5.5 tprn=359) CHLORIDE (BEAKER) (test 107 meq/L 98-106 lrry=300) CO2 (BEAKER) (test 25 meq/L 20-29 rnff=557) BLOOD UREA NITROGEN 11 mg/dL 10-26 (BEAKER) (test hsol=037) CREATININE (BEAKER) (test 0.80 mg/dL 0.50-1.20 vqua=536) GLUCOSE RANDOM (BEAKER) 91 mg/dL 70-110 (test kgxb=601) CALCIUM (BEAKER) (test 8.6 mg/dL 8.5-10.5 qpxh=320) EGFR (BEAKER) (test 104 mL/min/1.73 sq m ESTIMATED GFR IS NOT mntf=7253) ACCURATE CREATININE CLEARANCE IN PREDICTING GLOMERULAR FILTRATION RATE. ESTIMATED GFR IS NOT APPLICABLE FOR DIALYSIS PATIENTS. [id number] 06:49:00 Test Item Value Reference Range Comments MAGNESIUM (BEAKER) (test gzli=509) 2.4 mg/dL 1.5-3.0 TROPONIN [id number] 00:03:00 Test Item Value Reference Range Comments TROPONIN I (BEAKER) (test nmqa=873) < ng/mL 0.00-0.15 Troponin I (TnI) levels [...] Range Comments B-TYPE NATRIURETIC PEPTIDE (BEAKER) (test gvwr=862) 5 pg/mL 0-100 LIPID [id number] 23:57:00 Test Item Value Reference Range Comments TRIGLYCERIDES (BEAKER) (test rjfb=807) 53 mg/dL CHOLESTEROL (BEAKER) (test lwcg=036) 183 mg/dL HDL CHOLESTEROL (BEAKER) (test kpsk=470) 62 mg/dL LDL CHOLESTEROL CALCULATED (BEAKER) (test 110 mg/dL hapl=178) Triglyceride Reference Range: Low Risk <150 Borderline 150- 199 High Risk 200-499 Very High Risk >=500Cholesterol Reference Range: Low Risk <200 Borderline 200-239 High Risk > 240HDL Cholesterol Reference Range: Low Risk >=60 High Risk <40LDL Cholesterol Reference Range: Optimal <100 Near Optimal 100-129 Borderline 130-159 High 160-189 Very High >=190ED2 CT ANGIO CHEST W [id number] 11:04:2220 g Cathlon Above the Antecubital or [...] AMDictated By: CESAR BEACHDate: 01/29/2018 11:04ED2 TROPONIN-I [id number] 10:56:00 Test Item Value Reference Range Comments Troponin-I (test 0.000 ng/ml 0.000-0.034 The 99th Percentile URL is 0.034 code=TROP) ng/mL. The Joint Society of Cardiology/[place] [employer] (ESC/ACC) and the National [...] 24 hours after the clinical event. ED2 [id number] 10:51:00 Test Item Value Reference Range Comments [...] Protein (test code=TP) 6.9 gm/dl 6.4-8.1 ED2 [id number] 10:51:00 Test Item Value Reference Range Comments Pro-BNP(B-Peptide) (test <15 0-125 THE METHODOLOGY FOR DETECTION OF code=PROBNP) B-NATRIURETIC PEPTIDE HAS BEEN CHANGED TO "NT pro-BNP". THE NORMAL RANGES HAVE CHANGED. PLEASE NOTE THAT RANGES ARE DEFINED BY THE AGE OF THE PATIENT. (<75 years old=0-125 pg/ml 75years and older=0-450pg/ml). VALUES ARE NOT INTERCHANGEABLE BETWEEN METHODS. 10-18-2006 ED2 [id number] 10:50:00 Test Item Value Reference Range Comments [...] fL 8.0-11.0 ED2 XR CHEST 2 PA [id number] 09:49:15Procedure: ED2 XR CHEST 2 PA LATERALOrder date: 01/29/2018 9:18 AMOrdering Provider: ITALIA RITTERMONSClinical Indication: CHEST PAIN: Pain-ChestComparison: November 14, 2017Findings:Stable phaer-pyjkqPzof-D-Cath.Cardiomediastinal silhouette is within normal limits.The lungs are clear.No pleural effusion or pneumothorax. Osseous structures are nonacute.No evidence of active tuberculosis.Impression:Stable and nonacute two- view chest.This final report was electronically signed by Dr Cesar Beach MD 9:43 AMDictated By: CESAR BEACHDate: 01/29/2018 09:49CT, CHEST WITH IV CONTRAST- PE TEST [id number] 20:29:00FINAL REPORT HISTORY: chest pain COMPARISON : [...] MDReport Verified Date/Time: 01/24/2018 20:29:12 Reading Location: [address] Consult Reading Room 08: 29 [facility] MET[facility] [id number] 17:45:00 Test Item Value Reference Range Comments SODIUM (BEAKER) (test 138 meq/L 135-148 gcdu=712) POTASSIUM (BEAKER) (test 3.7 meq/L 3.6-5.5 opel=420) CHLORIDE (BEAKER) (test 104 meq/L 98-106 mewb=091) CO2 (BEAKER) (test 24 meq/L 20-29 nmuq=037) BLOOD UREA NITROGEN 18 mg/dL 10-26 (BEAKER) (test xhyi=862) CREATININE (BEAKER) (test 0.90 mg/dL 0.50-1.20 jgws=216) GLUCOSE RANDOM (BEAKER) 119 mg/dL 70-110 (test chfz=028) CALCIUM (BEAKER) (test 8.5 mg/dL 8.5-10.5 oigp=592) EGFR (BEAKER) (test 90 mL/min/1.73 sq m ESTIMATED GFR IS NOT pjeh=9863) ACCURATE CREATININE CLEARANCE IN PREDICTING GLOMERULAR FILTRATION RATE. ESTIMATED GFR IS NOT APPLICABLE FOR DIALYSIS PATIENTS. TROPONIN [id number] 13:54:00 Test Item Value Reference Range Comments TROPONIN I (BEAKER) (test imph=317) < ng/mL 0.00-0.15 Troponin I (TnI) levels [...] and persistent tachyarrhythmia.CREATINE KINASE (CK), TOTAL AND [id number] 13:53:00 Test Item Value Reference Range Comments CREATINE KINASE TOTAL (BEAKER) (test ptmd=450) 53 U/L 40-250 CREATINE KINASE-MB (BEAKER) (test zkcj=099) 0.7 ng/mL 0.0-4.9 CREATINE KINASE-MB INDEX (BEAKER) (test kegj=520) 1.3 % CK-MB Reference Range:<5 Normal5-10 Borderline>10 [...] CHEST WITH CONTRAST, PE PROTOCOL: Location code: [id number] HISTORY: [id number]: Chest pain, shortness of breathCOMPARISON: 10/14/16, 03/03/16, [...] 1.2 ng/mL <=4.2 COMPREHENSIVE METABOLIC KANG *GP* [id number] 14:23:00 Test Item Value Reference Range Comments [...] VIEW*GP*2017-12-16 14:20:51Portable AP chest, 1 viewLocation Code: [id number] HISTORY: [id number]: Chest painCOMPARISON: 12/22/16COMMENT: The lungs are clear and well inflated. The costophrenic angles are sharp. Thecardiomediastinal silhouette is unremarkable. The bones are intact. Right opydwMagt-N-Abxk tip overlies the superiorvena cava, unchanged.IMPRESSION: Stable [...] (test code=GMID%) 5.8 % 0.0-10.0 ED2 TROPONIN-I [id number] 14:21:00 Test Item Value Reference Range Comments Troponin-I (test 0.000 ng/ml 0.000-0.034 The 99th Percentile URL is 0.034 code=TROP) ng/mL. The Joint Society of Cardiology/[place] [employer]iology (ESC/ACC) and the National [...] clinical event. ED2 XR CHEST 2 PA [id number] 12:47:27Procedures: ED2 XR CHEST 2 PA LATERALExam [...] FRYEDate: 11/14/2017 12:47ED2 CT ANGIO CHEST W [id number] 12:46:17Procedures: ED2 CT ANGIO CHEST W CONTRASTExam [...] PMDictated By: CATHLEEN FRYEDate: 11/14/2017 12:46ED2 TROPONIN-I [id number] 11:38:00 Test Item Value Reference Range Comments Troponin-I (test 0.000 ng/ml 0.000-0.034 The 99th Percentile URL is 0.034 code=TROP) ng/mL. The Joint Society of Cardiology/[place] [employer]iology (ESC/ACC) and the National [...] 24 hours after the clinical event. ED2 [id number] 11:38:00 Test Item Value Reference Range Comments Pro-BNP(B-Peptide) (test <15 0-125 THE METHODOLOGY FOR DETECTION OF code=PROBNP) B-NATRIURETIC PEPTIDE HAS BEEN CHANGED TO "NT pro-BNP". THE NORMAL RANGES HAVE CHANGED. PLEASE NOTE THAT RANGES ARE DEFINED BY THE AGE OF THE PATIENT. (<75 years old=0-125 pg/ml 75years and older=0-450pg/ml). VALUES ARE NOT INTERCHANGEABLE BETWEEN METHODS. 10-18-2006 ED2 [id number] 11:31:00 Test Item Value Reference Range Comments Sodium (test code=NA) 142 mmol/l 128-145 Potassium (test code=K) 3.5 mmol/l 3.6-5.1 CO2 (test code=CO2) 24 mmol/l 18-33 Chloride (test code=CL) 105 mmol/l 98-108 Glucose (test code=GLU) 196 mg/dl 73-118 Calcium (test code=CALC) 8.3 mg/dl 8.0-10.3 BUN (test code=BUN) 10 mg/dl 7-22 Creatinine (test code=CREA) 0.9 mg/dl 0.6-1.2 ED2 [id number] 11:21:00 Test Item Value Reference Range Comments [...] MPV (test code=MPV) 7.3 fL 8.0-11.0 TROPONIN [id number] 07:00:00 Test Item Value Reference Range Comments TROPONIN I (BEAKER) (test zdso=369) < ng/mL 0.00-0.15 Troponin I (TnI) levels [...] acidosis, acute neurological disease, and persistent tachyarrhythmia.TROPONIN [id number] 00:40:00 Test Item Value Reference Range Comments TROPONIN I (BEAKER) (test fosn=230) < ng/mL 0.00-0.15 Troponin I (TnI) levels [...] acidosis, acute neurological disease, and persistent tachyarrhythmia.HEMOGLOBIN [id number] 19:40:00 Test Item Value Reference Range Comments HEMOGLOBIN A1C (BEAKER) (test bkcq=974) 5.3 % 4.3-6.1 TROPONIN [id number] 18:43:00 Test Item Value Reference Range Comments TROPONIN I (BEAKER) (test rqip=040) < ng/mL 0.00-0.15 Troponin I (TnI) levels [...] acute neurological disease, and persistent tachyarrhythmia.BASIC METABOLIC [id number] 18:24:00 Test Item Value Reference Range Comments SODIUM (BEAKER) (test 139 meq/L 135-148 cjxy=562) POTASSIUM (BEAKER) (test 3.5 meq/L 3.6-5.5 dhca=090) CHLORIDE (BEAKER) (test 105 meq/L 98-106 eswa=572) CO2 (BEAKER) (test 26 meq/L 20-29 zzuk=772) BLOOD UREA NITROGEN 15 mg/dL 10-26 (BEAKER) (test arxp=069) CREATININE (BEAKER) (test 1.00 mg/dL 0.50-1.20 iugx=139) GLUCOSE RANDOM (BEAKER) 94 mg/dL 70-110 (test jgwz=278) CALCIUM (BEAKER) (test 8.6 mg/dL 8.5-10.5 cdqp=587) EGFR (BEAKER) (test 80 mL/min/1.73 sq m ESTIMATED GFR IS NOT dgfv=4485) ACCURATE CREATININE CLEARANCE IN PREDICTING GLOMERULAR FILTRATION RATE. ESTIMATED GFR IS NOT APPLICABLE FOR DIALYSIS PATIENTS. CBC W/PLT COUNT & AUTO [id number] 18:01:00 Test Item Value Reference Range Comments WHITE BLOOD CELL COUNT (BEAKER) (test olxr=972) 8.5 K/ L 4.0-10.0 RED BLOOD CELL COUNT (BEAKER) (test ljxl=119) 3.95 M/ L 4.20-5.80 HEMOGLOBIN (BEAKER) (test skou=489) 11.4 GM/DL 13.0-16.8 HEMATOCRIT (BEAKER) (test cdcw=522) 34.6 % 40.0-50.0 MEAN CORPUSCULAR VOLUME (BEAKER) (test eylk=623) 87.4 fL 82.0-98.0 MEAN CORPUSCULAR HEMOGLOBIN (BEAKER) (test 28.9 pg 27.0-33.0 xqqa=382) MEAN CORPUSCULAR HEMOGLOBIN CONC (BEAKER) (test 33.0 GM/DL 32.0-36.0 dalj=870) RED CELL DISTRIBUTION WIDTH (BEAKER) (test 15.7 % 10.3-14.2 bvpd=805) PLATELET COUNT (BEAKER) (test tnpe=089) 368 K/CU MM 150-430 MEAN PLATELET VOLUME (BEAKER) (test hdno=422) 7.1 fL 6.5-10.5 NUCLEATED RED BLOOD CELLS (BEAKER) (test 0 /100 WBC 0-0 pkcj=869) NEUTROPHILS RELATIVE PERCENT (BEAKER) (test 50 % jsjp=948) LYMPHOCYTES RELATIVE PERCENT (BEAKER) (test 32 % mrox=049) MONOCYTES RELATIVE PERCENT (BEAKER) (test 15 % tapn=515) EOSINOPHILS RELATIVE PERCENT (BEAKER) (test 2 % nymk=922) BASOPHILS RELATIVE PERCENT (BEAKER) (test 0 % gdhw=385) NEUTROPHILS ABSOLUTE COUNT (BEAKER) (test 4.30 K/ L 1.80-8.00 ymmp=605) LYMPHOCYTES ABSOLUTE COUNT (BEAKER) (test 2.70 K/ L 1.48-4.50 bckr=569) MONOCYTES ABSOLUTE COUNT (BEAKER) (test 1.30 K/ L 0.00-1.30 hllv=980) EOSINOPHILS ABSOLUTE COUNT (BEAKER) (test 0.20 K/ L 0.00-0.50 yhru=021) BASOPHILS ABSOLUTE COUNT (BEAKER) (test 0.00 K/ L 0.00-0.20 qrbd=742) CREATINE KINASE (CK), TOTAL AND [id number] 12:25:00 Test Item Value Reference Range Comments CREATINE KINASE TOTAL (BEAKER) (test cbfi=110) 72 U/L 40-250 CREATINE KINASE-MB (BEAKER) (test rzld=173) 0.9 ng/mL 0.0-4.9 CREATINE KINASE-MB INDEX (BEAKER) (test fdpa=510) 1.3 % CK-MB Reference Range:<5 Normal5-10 Borderline>10 AbnormalTROPONIN [id number] 12:25:00 Test Item Value Reference Range Comments TROPONIN I (BEAKER) (test dots=467) < ng/mL 0.00-0.15 Troponin I (TnI) levels [...] Comments NEUTROPHILS - REL (DIFF) (BEAKER) (test uusu=3160) 38 % LYMPHOCYTES - REL (DIFF) (BEAKER) (test avpq=6284) 46 % MONOCYTES - REL (DIFF) (BEAKER) (test ygvc=9372) 11 % EOSINOPHILS - REL (DIFF) (BEAKER) (test spcj=9624) 5 % NEUTROPHILS - ABS (DIFF) (BEAKER) (test rigw=3712) 2.13 K/ L 1.80-8.00 LYMPHOCYTES - ABS (DIFF) (BEAKER) (test hrmi=6536) 2.58 K/ L 1.48-4.50 MONOCYTES - ABS (DIFF) (BEAKER) (test zdct=8673) 0.62 K/ L 0.00-1.30 EOSINOPHILS - ABS (DIFF) (BEAKER) (test ljfd=8592) 0.28 K/ L 0.00-0.50 TOTAL COUNTED (BEAKER) (test aqki=2617) 100 WBC MORPHOLOGY (BEAKER) (test syos=827) Normal PLT MORPHOLOGY (BEAKER) (test jbyn=639) Normal RBC MORPHOLOGY (BEAKER) (test njeu=570) Normal CBC W/PLT COUNT & AUTO [id number] 06:02:00 Test Item Value Reference Range Comments WHITE BLOOD CELL COUNT (BEAKER) (test fvrp=896) 5.6 K/ L 4.0-10.0 RED BLOOD CELL COUNT (BEAKER) (test esxb=906) 3.60 M/ L 4.20-5.80 HEMOGLOBIN (BEAKER) (test flck=942) 10.6 GM/DL 13.0-16.8 HEMATOCRIT (BEAKER) (test muxg=002) 32.3 % 40.0-50.0 MEAN CORPUSCULAR VOLUME (BEAKER) (test ujqt=211) 89.8 fL 82.0-98.0 MEAN CORPUSCULAR HEMOGLOBIN (BEAKER) (test 29.3 pg 27.0-33.0 nvti=768) MEAN CORPUSCULAR HEMOGLOBIN CONC (BEAKER) (test 32.7 GM/DL 32.0-36.0 cnka=783) RED CELL DISTRIBUTION WIDTH (BEAKER) (test 15.9 % 10.3-14.2 xkil=367) PLATELET COUNT (BEAKER) (test jcfb=286) 312 K/CU MM 150-430 MEAN PLATELET VOLUME (BEAKER) (test dxtb=944) 6.9 fL 6.5-10.5 NUCLEATED RED BLOOD CELLS (BEAKER) (test 0 /100 WBC 0-0 qzdp=379) TROPONIN [id number] 05:22:00 Test Item Value Reference Range Comments TROPONIN I (BEAKER) (test mdiq=705) < ng/mL 0.00-0.15 Troponin I (TnI) levels [...] and persistent tachyarrhythmia.CREATINE KINASE (CK), TOTAL AND [id number] 05:21:00 Test Item Value Reference Range Comments CREATINE KINASE TOTAL (BEAKER) (test mbgp=797) 71 U/L 40-250 CREATINE KINASE-MB (BEAKER) (test abbj=789) 0.8 ng/mL 0.0-4.9 CREATINE KINASE-MB INDEX (BEAKER) (test rtux=103) 1.1 % CK-MB Reference Range:<5 Normal5-10 Borderline>10 AbnormalCOMPREHENSIVE METABOLIC [id number] 05:14:00 Test Item Value Reference Range Comments TOTAL PROTEIN (BEAKER) 6.4 gm/dL 6.0-8.5 (test rirx=800) ALBUMIN (BEAKER) (test 3.7 g/dL 3.5-5.0 bsoi=2780) ALKALINE PHOSPHATASE 67 U/L 30-115 (BEAKER) (test hveb=053) BILIRUBIN TOTAL (BEAKER) 0.3 mg/dL 0.1-1.2 (test vffn=485) SODIUM (BEAKER) (test 141 meq/L 135-148 xnmm=918) POTASSIUM (BEAKER) (test 3.7 meq/L 3.6-5.5 ngoo=742) CHLORIDE (BEAKER) (test 106 meq/L 98-106 emba=837) CO2 (BEAKER) (test 26 meq/L 20-29 neyj=432) BLOOD UREA NITROGEN 19 mg/dL 10-26 (BEAKER) (test esff=131) CREATININE (BEAKER) (test 1.00 mg/dL 0.50-1.20 ycfg=072) GLUCOSE RANDOM (BEAKER) 104 mg/dL 70-110 (test ohoo=731) CALCIUM (BEAKER) (test 9.0 mg/dL 8.5-10.5 eklu=777) AST (SGOT) (BEAKER) (test 14 U/L 5-40 oxqd=382) ALT (SGPT) (BEAKER) (test 10 U/L 5-50 mews=231) EGFR (BEAKER) (test 80 mL/min/1.73 sq m ESTIMATED GFR IS NOT htwa=9543) ACCURATE CREATININE CLEARANCE IN PREDICTING GLOMERULAR FILTRATION RATE. ESTIMATED GFR IS NOT APPLICABLE FOR DIALYSIS PATIENTS. LIPID [id number] 05:13:00 Test Item Value Reference Range Comments TRIGLYCERIDES (BEAKER) (test bzjb=195) 159 mg/dL CHOLESTEROL (BEAKER) (test guhh=720) 205 mg/dL HDL CHOLESTEROL (BEAKER) (test yfcu=439) 62 mg/dL LDL CHOLESTEROL CALCULATED (BEAKER) (test 111 mg/dL mpgf=988) Triglyceride Reference Range: Low Risk <150 Borderline 150- 199 High Risk 200-499 Very High Risk >=500Cholesterol Reference Range: Low Risk <200 Borderline 200-239 High Risk > 240HDL Cholesterol Reference Range: Low Risk >=60 High Risk <40LDL Cholesterol Reference Range: Optimal <100 Near Optimal 100-129 Borderline 130-159 High 160-189 Very High >=190CREATINE KINASE (CK), TOTAL AND [id number] 23:03:00 Test Item Value Reference Range Comments CREATINE KINASE TOTAL (BEAKER) (test grqe=404) 77 U/L 40-250 CREATINE KINASE-MB (BEAKER) (test obkz=084) 0.9 ng/mL 0.0-4.9 CREATINE KINASE-MB INDEX (BEAKER) (test mpqq=443) 1.2 % CK-MB Reference Range:<5 Normal5-10 Borderline>10 AbnormalTROPONIN [id number] 23:03:00 Test Item Value Reference Range Comments TROPONIN I (BEAKER) (test vpmm=507) < ng/mL 0.00-0.15 Troponin I (TnI) levels [...] 1 VIEW PORTABLE 2017-02-21 04:12:23CHEST AP viewLOCATION: [id number] INDICATION: Chest pain COMPARISON: March 14, 2017FINDINGS: Borderline low lung volumes. No focal consolidation or air space opacities. Nopleural effusions or pneumothorax.The heart size is normal. There is a right chest wall implantable port with itstip at the distal SVC.No acute osseous abnormality. The visualized thoracic soft tissues and upperabdomen are unremarkable.IMPRESSION:No evidence of acute chest pathology.D-DIMER *WW*2017-02 03:46:00 Test Item Value Reference Range Comments D-DIMER (test code=DDI) <200 ng/mL D-DU 0-234 D-DIMER COMMENT (test *Level to rule out DVT or PE: code=DDCOM) <235 ng/mL D-DU* PRO TIME AND PTT *WW*2017-02-21 03:46:00 Test Item Value Reference Range Comments [...] code=PBNP) 16 pg/mL 0-125 COMPREHENSIVE METABOLIC KANG *WW*2017-02-21 03:34:00 Test Item Value Reference Range Comments [...] (test code=31A) 16 IU/L <=78 CARDIAC PROFILE 2017-02-21 03:33:00 Test Item Value Reference Range Comments TROPONIN I (test code=A84) <0.015 ng/mL 0.000-0.045 CKMB (test code=A49) 1.2 ng/mL <=3.6 CPK (test code=32A) 97 IU/L 39-308 MAGNESIUM WW2017-02-21 03:28:00 Test Item Value Reference Range Comments MAGNESIUM (test code=48A) 2.2 mg/dL 1.8-2.4 CREATINE KINASE (CK), TOTAL AND [id number] 08:12:00 Test Item Value Reference Range Comments CREATINE KINASE TOTAL (BEAKER) (test ohay=240) 91 U/L 40-250 CREATINE KINASE-MB (BEAKER) (test hvwb=056) 1.0 ng/mL 0.0-4.9 CREATINE KINASE-MB INDEX (BEAKER) (test qkjr=416) 1.1 % CK-MB Reference Range:<5 Normal5-10 Borderline>10 AbnormalTROPONIN [id number] 08:12:00 Test Item Value Reference Range Comments TROPONIN I (BEAKER) (test doar=021) < ng/mL 0.00-0.15 Troponin I (TnI) levels [...] and persistent tachyarrhythmia.CBC W/PLT COUNT & AUTO [id number] 07:57:00 Test Item Value Reference Range Comments WHITE BLOOD CELL COUNT (BEAKER) (test hxwj=784) 7.7 K/ L 4.0-10.0 RED BLOOD CELL COUNT (BEAKER) (test jdwq=137) 3.82 M/ L 4.20-5.80 HEMOGLOBIN (BEAKER) (test vbpn=847) 9.3 GM/DL 13.0-16.8 HEMATOCRIT (BEAKER) (test xhdv=650) 29.3 % 40.0-50.0 MEAN CORPUSCULAR VOLUME (BEAKER) (test kkqw=874) 76.6 fL 82.0-98.0 MEAN CORPUSCULAR HEMOGLOBIN (BEAKER) (test 24.3 pg 27.0-33.0 pmev=402) MEAN CORPUSCULAR HEMOGLOBIN CONC (BEAKER) (test 31.8 GM/DL 32.0-36.0 uhsr=134) RED CELL DISTRIBUTION WIDTH (BEAKER) (test 22.1 % 10.3-14.2 rcny=949) PLATELET COUNT (BEAKER) (test zuhi=899) 341 K/CU MM 150-430 MEAN PLATELET VOLUME (BEAKER) (test ryfy=313) 7.2 fL 6.5-10.5 NUCLEATED RED BLOOD CELLS (BEAKER) (test 0 /100 WBC 0-0 wfmy=825) NEUTROPHILS RELATIVE PERCENT (BEAKER) (test 50 % gsbd=832) LYMPHOCYTES RELATIVE PERCENT (BEAKER) (test 34 % gvxl=488) MONOCYTES RELATIVE PERCENT (BEAKER) (test 14 % xyyr=591) EOSINOPHILS RELATIVE PERCENT (BEAKER) (test 1 % cwsu=363) BASOPHILS RELATIVE PERCENT (BEAKER) (test 0 % jgvp=850) NEUTROPHILS ABSOLUTE COUNT (BEAKER) (test 3.90 K/ L 1.80-8.00 ospg=482) LYMPHOCYTES ABSOLUTE COUNT (BEAKER) (test 2.60 K/ L 1.48-4.50 kkfe=313) MONOCYTES ABSOLUTE COUNT (BEAKER) (test 1.10 K/ L 0.00-1.30 zngg=543) EOSINOPHILS ABSOLUTE COUNT (BEAKER) (test 0.10 K/ L 0.00-0.50 vvbc=031) BASOPHILS ABSOLUTE COUNT (BEAKER) (test 0.00 K/ L 0.00-0.20 ooae=668) (MANUAL DIFFERENTIAL)2017-02-09 07:57:00 Test Item Value Reference Range Comments TOTAL COUNTED (BEAKER) (test lfwz=5692) WBC MORPHOLOGY (BEAKER) (test obhf=706) Normal PLT MORPHOLOGY (BEAKER) (test zupf=068) Normal ANISOCYTOSIS (BEAKER) (test cemz=731) 1+ few HYPOCHROMIA (BEAKER) (test ogsg=613) 2+ moderate CREATINE KINASE (CK), TOTAL AND [id number] 06:53:00 Test Item Value Reference Range Comments CREATINE KINASE TOTAL (BEAKER) (test hsbh=245) 116 U/L 40-250 CREATINE KINASE-MB (BEAKER) (test fvoc=518) 1.1 ng/mL 0.0-4.9 CREATINE KINASE-MB INDEX (BEAKER) (test vjsd=984) 0.9 % CK-MB Reference Range:<5 Normal5-10 Borderline>10 AbnormalTROPONIN [id number] 06:53:00 Test Item Value Reference Range Comments TROPONIN I (BEAKER) (test paau=628) < ng/mL 0.00-0.15 Troponin I (TnI) levels [...] acute neurological disease, and persistent tachyarrhythmia.BASIC METABOLIC [id number] 06:45:00 Test Item Value Reference Range Comments SODIUM (BEAKER) (test 143 meq/L 135-148 fffg=406) POTASSIUM (BEAKER) (test 3.8 meq/L 3.6-5.5 qrjh=420) CHLORIDE (BEAKER) (test 107 meq/L 98-106 zemw=734) CO2 (BEAKER) (test 26 meq/L 20-29 zhxw=736) BLOOD UREA NITROGEN 15 mg/dL 10-26 (BEAKER) (test bhdu=674) CREATININE (BEAKER) (test 1.00 mg/dL 0.50-1.20 rvth=286) GLUCOSE RANDOM (BEAKER) 106 mg/dL 70-110 (test rtzv=402) CALCIUM (BEAKER) (test 8.8 mg/dL 8.5-10.5 htvb=440) EGFR (BEAKER) (test 80 mL/min/1.73 sq m ESTIMATED GFR IS NOT mfdc=5432) ACCURATE CREATININE CLEARANCE IN PREDICTING GLOMERULAR FILTRATION RATE. ESTIMATED GFR IS NOT APPLICABLE FOR DIALYSIS PATIENTS. TROPONIN [id number] 22:50:00 Test Item Value Reference Range Comments TROPONIN I (BEAKER) (test acly=469) < ng/mL 0.00-0.15 Troponin I (TnI) levels [...] and persistent tachyarrhythmia.CREATINE KINASE (CK), TOTAL AND [id number] 22:45:00 Test Item Value Reference Range Comments CREATINE KINASE TOTAL (BEAKER) (test pqpt=828) 100 U/L 40-250 CREATINE KINASE-MB (BEAKER) (test wjrh=616) 1.0 ng/mL 0.0-4.9 CREATINE KINASE-MB INDEX (BEAKER) (test thft=810) 1.0 % CK-MB Reference Range:<5 Normal5-10 Borderline>10 AbnormalPROTHROMBIN TIME/[id number] 22:35:00 Test Item Value Reference Range Comments PROTIME (BEAKER) (test yuyy=175) 10.4 seconds 9.3-12.0 INR (BEAKER) (test dcty=372) 1.0 <=5.9 RECOMMENDED COUMADIN/WARFARIN INR THERAPY RANGESSTANDARD DOSE: 2.0 - 3.0 Includes: PROPHYLAXIS forvenous thrombosis, systemic embolization; TREATMENT for venous thrombosis and/or pulmonary embolus.HIGH RISK: Target INR is 2.5-3.5 for patients with mechanical heart valves.[id number] 22:35:00 Test Item Value Reference Range Comments PARTIAL THROMBOPLASTIN TIME (BEAKER) (test 23.1 seconds 23.0-35.0 vxke=125) TROPONIN [id number] 15:08:00 Test Item Value Reference Range Comments TROPONIN I (BEAKER) (test adnu=265) < ng/mL 0.00-0.15 Troponin I (TnI) levels [...] and persistent tachyarrhythmia.CREATINE KINASE (CK), TOTAL AND [id number] 15:07:00 Test Item Value Reference Range Comments CREATINE KINASE TOTAL (BEAKER) (test qkgf=236) 355 U/L 40-250 CREATINE KINASE-MB (BEAKER) (test xcow=668) 2.2 ng/mL 0.0-4.9 CREATINE KINASE-MB INDEX (BEAKER) (test boeg=199) 0.6 % CK-MB Reference Range:<5 Normal5-10 Borderline>10 AbnormalCBC W/PLT COUNT & AUTO [id number] 06:58:00 Test Item Value Reference Range Comments WHITE BLOOD CELL COUNT (BEAKER) (test vuag=578) 6.8 K/ L 4.0-10.0 RED BLOOD CELL COUNT (BEAKER) (test dyrc=747) 3.57 M/ L 4.20-5.80 HEMOGLOBIN (BEAKER) (test gbrx=970) 8.6 GM/DL 13.0-16.8 HEMATOCRIT (BEAKER) (test wdrn=388) 28.0 % 40.0-50.0 MEAN CORPUSCULAR VOLUME (BEAKER) (test wwzm=574) 78.5 fL 82.0-98.0 MEAN CORPUSCULAR HEMOGLOBIN (BEAKER) (test 24.2 pg 27.0-33.0 iboy=464) MEAN CORPUSCULAR HEMOGLOBIN CONC (BEAKER) (test 30.9 GM/DL 32.0-36.0 sczx=235) RED CELL DISTRIBUTION WIDTH (BEAKER) (test 22.6 % 10.3-14.2 ieya=507) PLATELET COUNT (BEAKER) (test xmjd=282) 297 K/CU MM 150-430 MEAN PLATELET VOLUME (BEAKER) (test icjg=310) 7.2 fL 6.5-10.5 NUCLEATED RED BLOOD CELLS (BEAKER) (test 0 /100 WBC 0-0 cjwy=946) NEUTROPHILS RELATIVE PERCENT (BEAKER) (test 46 % fzqv=607) LYMPHOCYTES RELATIVE PERCENT (BEAKER) (test 38 % yzbo=875) MONOCYTES RELATIVE PERCENT (BEAKER) (test 14 % yhqp=185) EOSINOPHILS RELATIVE PERCENT (BEAKER) (test 2 % tirz=968) BASOPHILS RELATIVE PERCENT (BEAKER) (test 0 % kjlr=135) NEUTROPHILS ABSOLUTE COUNT (BEAKER) (test 3.10 K/ L 1.80-8.00 fyyd=918) LYMPHOCYTES ABSOLUTE COUNT (BEAKER) (test 2.60 K/ L 1.48-4.50 lxxt=440) MONOCYTES ABSOLUTE COUNT (BEAKER) (test 0.90 K/ L 0.00-1.30 zuka=885) EOSINOPHILS ABSOLUTE COUNT (BEAKER) (test 0.20 K/ L 0.00-0.50 fijd=624) BASOPHILS ABSOLUTE COUNT (BEAKER) (test 0.00 K/ L 0.00-0.20 xlcy=483) (MANUAL DIFFERENTIAL)2017-01-24 06:58:00 Test Item Value Reference Range Comments TOTAL COUNTED (BEAKER) (test zokz=0180) WBC MORPHOLOGY (BEAKER) (test cwll=185) Normal PLT MORPHOLOGY (BEAKER) (test vovq=729) Normal ANISOCYTOSIS (BEAKER) (test jagr=299) 2+ moderate HYPOCHROMIA (BEAKER) (test hknj=945) 2+ moderate MICROCYTES (BEAKER) (test btzt=323) 1+ few TROPONIN [id number] 06:05:00 Test Item Value Reference Range Comments TROPONIN I (BEAKER) (test doce=066) < ng/mL 0.00-0.15 Troponin I (TnI) levels [...] and persistent tachyarrhythmia.CREATINE KINASE (CK), TOTAL AND [id number] 06:04:00 Test Item Value Reference Range Comments CREATINE KINASE TOTAL (BEAKER) (test ubcg=553) 298 U/L 40-250 CREATINE KINASE-MB (BEAKER) (test veqq=618) 2.1 ng/mL 0.0-4.9 CREATINE KINASE-MB INDEX (BEAKER) (test zkxu=348) 0.7 % CK-MB Reference Range:<5 Normal5-10 Borderline>10 AbnormalCOMPREHENSIVE METABOLIC [id number] 06:00:00 Test Item Value Reference Range Comments TOTAL PROTEIN (BEAKER) 6.5 gm/dL 6.0-8.5 (test cwrn=841) ALBUMIN (BEAKER) (test 4.0 g/dL 3.5-5.0 rkwv=5414) ALKALINE PHOSPHATASE 76 U/L 30-115 (BEAKER) (test mzhf=070) BILIRUBIN TOTAL (BEAKER) 0.5 mg/dL 0.1-1.2 (test umch=899) SODIUM (BEAKER) (test 142 meq/L 135-148 qxrf=599) POTASSIUM (BEAKER) (test 3.5 meq/L 3.6-5.5 lmbp=883) CHLORIDE (BEAKER) (test 106 meq/L 98-106 zkvc=954) CO2 (BEAKER) (test 26 meq/L 20-29 qxua=166) BLOOD UREA NITROGEN 14 mg/dL 10-26 (BEAKER) (test xeyi=658) CREATININE (BEAKER) (test 0.90 mg/dL 0.50-1.20 pgvq=352) GLUCOSE RANDOM (BEAKER) 79 mg/dL 70-110 (test btzy=407) CALCIUM (BEAKER) (test 8.8 mg/dL 8.5-10.5 gzks=287) AST (SGOT) (BEAKER) (test 16 U/L 5-40 pubp=555) ALT (SGPT) (BEAKER) (test 10 U/L 5-50 ystd=159) EGFR (BEAKER) (test 91 mL/min/1.73 sq m ESTIMATED GFR IS NOT eccs=7697) ACCURATE CREATININE CLEARANCE IN PREDICTING GLOMERULAR FILTRATION RATE. ESTIMATED GFR IS NOT APPLICABLE FOR DIALYSIS PATIENTS. CREATINE KINASE (CK), TOTAL AND [id number] 04:57:00 Test Item Value Reference Range Comments CREATINE KINASE TOTAL (BEAKER) (test kkbw=711) 653 U/L 30-300 CREATINE KINASE-MB (BEAKER) (test aisz=583) 0.8 ng/mL 0.0-4.9 CREATINE KINASE-MB INDEX (BEAKER) (test ecsw=561) 0.1 % CK-MB Reference Range:<5 Normal5-10 Borderline>10 AbnormalTROPONIN [id number] 04:56:00 Test Item Value Reference Range Comments TROPONIN I (BEAKER) (test dsil=494) 0.03 ng/mL 0.00-0.15 Troponin I (TnI) levels [...] acidosis, acute neurological disease, and persistent tachyarrhythmia.LIPID [id number] 04:47:00 Test Item Value Reference Range Comments TRIGLYCERIDES (BEAKER) (test jvfc=940) 79 mg/dL CHOLESTEROL (BEAKER) (test tatq=793) 206 mg/dL HDL CHOLESTEROL (BEAKER) (test anfd=855) 53 mg/dL LDL CHOLESTEROL CALCULATED (BEAKER) (test 137 mg/dL cuof=585) Triglyceride Reference Range: Low Risk <150 Borderline 150- 199 High Risk 200-499 Very High Risk >=500Cholesterol Reference Range: Low Risk <200 Borderline 200-239 High Risk > 240HDL Cholesterol Reference Range: Low Risk >=60 High Risk <40LDL Cholesterol Reference Range: Optimal <100 Near Optimal 100-129 Borderline 130-159 High 160-189 Very High >=190COMPREHENSIVE METABOLIC [id number] 04:47:00 Test Item Value Reference Range Comments TOTAL PROTEIN (BEAKER) 7.2 gm/dL 6.0-8.5 (test dxyi=702) ALBUMIN (BEAKER) (test 4.1 g/dL 3.5-5.0 mcgd=6862) ALKALINE PHOSPHATASE 78 U/L 30-115 (BEAKER) (test uvow=738) BILIRUBIN TOTAL (BEAKER) 0.5 mg/dL 0.1-1.3 (test gslc=210) SODIUM (BEAKER) (test 141 meq/L 135-148 tgmb=554) POTASSIUM (BEAKER) (test 3.9 meq/L 3.5-5.5 sfxc=760) CHLORIDE (BEAKER) (test 109 meq/L 98-106 rvlv=838) CO2 (BEAKER) (test 23 meq/L 20-31 evzs=992) BLOOD UREA NITROGEN 9 mg/dL 10-26 (BEAKER) (test gjrc=734) CREATININE (BEAKER) (test 0.95 mg/dL 0.50-1.20 crjh=924) GLUCOSE RANDOM (BEAKER) 83 mg/dL 70-110 (test cwgc=197) CALCIUM (BEAKER) (test 8.8 mg/dL 8.5-10.5 irtf=821) AST (SGOT) (BEAKER) (test 28 U/L 5-40 zmfr=653) ALT (SGPT) (BEAKER) (test 27 U/L 6-50 qmqy=522) EGFR (BEAKER) (test 86 mL/min/1.73 sq m ESTIMATED GFR IS NOT rsgs=8474) ACCURATE CREATININE CLEARANCE IN PREDICTING GLOMERULAR FILTRATION RATE. ESTIMATED GFR IS NOT APPLICABLE FOR DIALYSIS PATIENTS. CBC W/PLT COUNT & AUTO [id number] 04:19:00 Test Item Value Reference Range Comments WHITE BLOOD CELL COUNT (BEAKER) (test jqen=395) 6.6 K/ L 4.0-10.0 RED BLOOD CELL COUNT (BEAKER) (test sjpr=475) 3.66 M/ L 4.20-5.80 HEMOGLOBIN (BEAKER) (test glhy=071) 8.5 GM/DL 13.0-16.8 HEMATOCRIT (BEAKER) (test ggdk=111) 27.3 % 40.0-50.0 MEAN CORPUSCULAR VOLUME (BEAKER) (test ffvj=619) 74.7 fL 82.0-98.0 MEAN CORPUSCULAR HEMOGLOBIN (BEAKER) (test 23.2 pg 27.0-33.0 dkkb=458) MEAN CORPUSCULAR HEMOGLOBIN CONC (BEAKER) (test 31.0 GM/DL 32.0-36.0 gkyo=418) RED CELL DISTRIBUTION WIDTH (BEAKER) (test 19.2 % 12.0-15.0 pbqj=216) PLATELET COUNT (BEAKER) (test notg=251) 348 K/CU MM 150-430 MEAN PLATELET VOLUME (BEAKER) (test wevt=560) 6.8 fL 6.5-10.5 NUCLEATED RED BLOOD CELLS (BEAKER) (test 0 /100 WBC 0-0 nqlb=530) NEUTROPHILS RELATIVE PERCENT (BEAKER) (test 49 % qsku=694) LYMPHOCYTES RELATIVE PERCENT (BEAKER) (test 39 % oayb=552) MONOCYTES RELATIVE PERCENT (BEAKER) (test 9 % udwq=784) EOSINOPHILS RELATIVE PERCENT (BEAKER) (test 1 % sxve=168) BASOPHILS RELATIVE PERCENT (BEAKER) (test 2 % gtbg=768) NEUTROPHILS ABSOLUTE COUNT (BEAKER) (test 3.20 K/ L 1.80-8.00 zwwy=670) LYMPHOCYTES ABSOLUTE COUNT (BEAKER) (test 2.60 K/ L 1.48-4.50 hjxl=914) MONOCYTES ABSOLUTE COUNT (BEAKER) (test 0.60 K/ L 0.00-1.30 tgod=014) EOSINOPHILS ABSOLUTE COUNT (BEAKER) (test 0.10 K/ L 0.00-0.50 xszc=591) BASOPHILS ABSOLUTE COUNT (BEAKER) (test 0.10 K/ L 0.00-0.20 ynnm=762) TROPONIN [id number] 13:44:00 Test Item Value Reference Range Comments TROPONIN I (BEAKER) (test nbgg=287) < ng/mL 0.00-0.15 Troponin I (TnI) levels [...] and persistent tachyarrhythmia.CREATINE KINASE (CK), TOTAL AND [id number] 13:43:00 Test Item Value Reference Range Comments CREATINE KINASE TOTAL (BEAKER) (test wefd=428) 61 U/L 40-250 CREATINE KINASE-MB (BEAKER) (test hryo=441) 1.0 ng/mL 0.0-4.9 CREATINE KINASE-MB INDEX (BEAKER) (test hzip=725) 1.6 % CK-MB Reference Range:<5 Normal5-10 Borderline>10 AbnormalTROPONIN [id number] 07:21:00 Test Item Value Reference Range Comments TROPONIN I (BEAKER) (test ulvq=003) < ng/mL 0.00-0.15 Troponin I (TnI) levels [...] and persistent tachyarrhythmia.CREATINE KINASE (CK), TOTAL AND [id number] 07:20:00 Test Item Value Reference Range Comments CREATINE KINASE TOTAL (BEAKER) (test rzno=240) 58 U/L 40-250 CREATINE KINASE-MB (BEAKER) (test deky=813) 0.9 ng/mL 0.0-4.9 CREATINE KINASE-MB INDEX (BEAKER) (test ffsw=438) 1.6 % CK-MB Reference Range:<5 Normal5-10 Borderline>10 AbnormalCBC W/PLT COUNT & AUTO [id number] 22:21:00 Test Item Value Reference Range Comments WHITE BLOOD CELL COUNT (BEAKER) (test quku=964) 7.3 K/ L 4.0-10.0 RED BLOOD CELL COUNT (BEAKER) (test uqko=350) 4.00 M/ L 4.20-5.80 HEMOGLOBIN (BEAKER) (test htzg=062) 9.4 GM/DL 13.0-16.8 HEMATOCRIT (BEAKER) (test gyxe=874) 30.0 % 40.0-50.0 MEAN CORPUSCULAR VOLUME (BEAKER) (test xgim=089) 74.9 fL 82.0-98.0 MEAN CORPUSCULAR HEMOGLOBIN (BEAKER) (test 23.5 pg 27.0-33.0 vwrb=708) MEAN CORPUSCULAR HEMOGLOBIN CONC (BEAKER) (test 31.4 GM/DL 32.0-36.0 atyf=330) RED CELL DISTRIBUTION WIDTH (BEAKER) (test 20.1 % 10.3-14.2 xabe=539) PLATELET COUNT (BEAKER) (test gdtw=502) 392 K/CU MM 150-430 MEAN PLATELET VOLUME (BEAKER) (test peai=929) 6.8 fL 6.5-10.5 NUCLEATED RED BLOOD CELLS (BEAKER) (test 0 /100 WBC 0-0 zxoi=837) NEUTROPHILS RELATIVE PERCENT (BEAKER) (test 45 % vxnw=440) LYMPHOCYTES RELATIVE PERCENT (BEAKER) (test 40 % ztjq=474) MONOCYTES RELATIVE PERCENT (BEAKER) (test 14 % mgbj=630) EOSINOPHILS RELATIVE PERCENT (BEAKER) (test 1 % hvoa=325) BASOPHILS RELATIVE PERCENT (BEAKER) (test 0 % lnzf=396) NEUTROPHILS ABSOLUTE COUNT (BEAKER) (test 3.30 K/ L 1.80-8.00 agnb=279) LYMPHOCYTES ABSOLUTE COUNT (BEAKER) (test 2.90 K/ L 1.48-4.50 pubk=115) MONOCYTES ABSOLUTE COUNT (BEAKER) (test 1.00 K/ L 0.00-1.30 tdvn=669) EOSINOPHILS ABSOLUTE COUNT (BEAKER) (test 0.10 K/ L 0.00-0.50 whbm=577) BASOPHILS ABSOLUTE COUNT (BEAKER) (test 0.00 K/ L 0.00-0.20 baty=326) (MANUAL DIFFERENTIAL)2016-12-01 22:21:00 Test Item Value Reference Range Comments TOTAL COUNTED (BEAKER) (test rlxa=3183) WBC MORPHOLOGY (BEAKER) (test bnxo=838) Normal PLT MORPHOLOGY (BEAKER) (test wwgn=823) Normal ANISOCYTOSIS (BEAKER) (test fkul=593) 2+ moderate HYPOCHROMIA (BEAKER) (test etiu=583) 1+ few TROPONIN [id number] 22:13:00 Test Item Value Reference Range Comments TROPONIN I (BEAKER) (test vzrj=420) < ng/mL 0.00-0.15 Troponin I (TnI) levels [...] and persistent tachyarrhythmia.CREATINE KINASE (CK), TOTAL AND [id number] 22:12:00 Test Item Value Reference Range Comments CREATINE KINASE TOTAL (BEAKER) (test ybms=761) 68 U/L 40-250 CREATINE KINASE-MB (BEAKER) (test rhga=659) 1.0 ng/mL 0.0-4.9 CREATINE KINASE-MB INDEX (BEAKER) (test fuea=250) 1.5 % CK-MB Reference Range:<5 Normal5-10 Borderline>10 AbnormalCOMPREHENSIVE METABOLIC [id number] 22:05:00 Test Item Value Reference Range Comments TOTAL PROTEIN (BEAKER) 8.0 gm/dL 6.0-8.5 (test vcba=148) ALBUMIN (BEAKER) (test 4.7 g/dL 3.5-5.0 katf=4015) ALKALINE PHOSPHATASE 84 U/L 30-115 (BEAKER) (test omst=588) BILIRUBIN TOTAL (BEAKER) 0.5 mg/dL 0.1-1.2 (test wlae=803) SODIUM (BEAKER) (test 139 meq/L 135-148 qpmi=904) POTASSIUM (BEAKER) (test 4.0 meq/L 3.6-5.5 llkm=540) CHLORIDE (BEAKER) (test 103 meq/L 98-106 ntlo=160) CO2 (BEAKER) (test 26 meq/L 20-29 htov=458) BLOOD UREA NITROGEN 13 mg/dL 10-26 (BEAKER) (test wexr=614) CREATININE (BEAKER) (test 1.00 mg/dL 0.50-1.20 ugvw=492) GLUCOSE RANDOM (BEAKER) 118 mg/dL 70-110 (test syos=006) CALCIUM (BEAKER) (test 10.1 mg/dL 8.5-10.5 uzmh=152) AST (SGOT) (BEAKER) (test 19 U/L 5-40 jkja=654) ALT (SGPT) (BEAKER) (test 15 U/L 5-50 wfxm=086) EGFR (BEAKER) (test 81 mL/min/1.73 sq m ESTIMATED GFR IS NOT bnny=4008) ACCURATE CREATININE CLEARANCE IN PREDICTING GLOMERULAR FILTRATION RATE. ESTIMATED GFR IS NOT APPLICABLE FOR DIALYSIS PATIENTS. PROTHROMBIN TIME/[id number] 21:58:00 Test Item Value Reference Range Comments PROTIME (BEAKER) (test xdti=423) 10.5 seconds 9.3-12.0 INR (BEAKER) (test qlvr=649) 1.0 <=5.9 RECOMMENDED COUMADIN/WARFARIN INR THERAPY RANGESSTANDARD DOSE: 2.0 - 3.0 Includes: PROPHYLAXIS forvenous thrombosis, systemic embolization; TREATMENT for venous thrombosis and/or pulmonary embolus.HIGH RISK: Target INR is 2.5-3.5 for patients with mechanical heart valves.[id number] 21:58:00 Test Item Value Reference Range Comments PARTIAL THROMBOPLASTIN TIME (BEAKER) (test 32.3 seconds 23.0-35.0 yqmk=366)
[2018-09-18 10:04] LABS: Absolute Lymphocytes (CBC) 1.7 K/uL (0.7-4.9); Absolute Monocytes 0.6 K/uL (0.1-1.3); Absolute Neutrophil 3.4 K/uL (1.8-8.0); Basophils % 0.5 % (0-1.3); Eosinophils % 1.4 % (0-4.4); Hematocrit 30.5 % (39.6-49.0); Lymphocytes % 29.2 % (15.3-44.8); MCH 23.1 pg (27.0-35.0); MPV 7.3 fL (7.6-11.3); Monocytes % 9.7 % (3.3-12.3); RBC Red Blood Cell Count 4.24 M/uL (4.33-5.43)
[2018-09-18 10:09] LABS: Protime INR 1.09
[2018-09-18] MEDS ORDERED: HYDROMORPHONE HCL 2 MG/ML inj ONE (10:22)
[2018-09-18] MEDS ORDERED: ONDANSETRON 4 MG/2 ML VIAL ONE (10:22)
[2018-09-18] MEDS ORDERED: NA CHLORIDE 0.9% 500 ML ONE (10:23)
[2018-09-18] MEDS ORDERED: NA CHLORIDE 0.9% 1,000 ML ONE (10:23)
[2018-09-18 10:28] LABS: ALT/SGPT 27 U/L (12-78); AST/SGOT 19 U/L (15-37); Alkaline Phosphatase 95 U/L (45-117); BUN Blood Urea Nitrogen 16 mg/dL (7-18); Bicarbonate 23 mmol/L (21-32); Bilirubin Direct 0.1 mg/dL (0-0.2); Bilirubin Total 0.6 mg/dL (0.2-1.0); Glucose Level 175 mg/dL (74-106); Magnesium 2.3 mg/dL (1.8-2.4); NT PRO-BNP 12 pg/mL (<125); Potassium 3.6 mmol/L (3.5-5.1); Sodium Level 137 mmol/L (136-145); Troponin (Emerg Dept Use Only) < 0.02 ng/mL (0.0-0.045)
--- NOTE | 2018-09-18 10:55 | RAD REPORT ---
EXAM DESCRIPTION: RAD - Chest Single View - 09/18/2018 9:17 am CLINICAL HISTORY: CHEST PAIN Chest pain. COMPARISON: Chest Single View dated 09/03/2018; Chest Single View dated 08/19/2018; Chest Single View dated 08/09/2018; Chest Single View dated 01/31/2018 FINDINGS: Portable technique limits examination quality. The lungs are grossly clear. The heart is normal in size. No displaced fractures.Right-sided port cat heter its tip in the SVC. IMPRESSION: No acute intrathoracic process suspected.
--- NOTE | 2018-09-18 11:18 | ER ---
Nurse's Notes [facility] Name: Christiano Serra Age: 48 yrs Sex: Male : 1970 Arrival Date: 09/18/2018 Time: 08:42 Bed 4 Private MD: Diagnosis: Chest pain, unspecified;Tachycardia, unspecified;Anemia, unspecified Presentation: 09/18 08:49 Presenting complaint: Patient states: Woke up approximately 1.5 hours ago with chest ss pain. Transition of care: patient was not received from another setting of care. Onset of symptoms was September 18, 2018. Risk Assessment: Do you want to hurt yourself or someone else? Patient reports no desire to harm self or others. Initial Sepsis Screen: Does the patient meet any 2 criteria? RR > 20 per min. HR > 90 bpm. Does the patient have a suspected source of infection? No. Patient's initial sepsis screen is negative. Care prior to arrival: None. 08:49 Method Of Arrival: Ambulatory 08:49 Acuity: RADHA 2 ss Historical: - Allergies: 08:51 ambien; ss 08:51 Morphine; ss 08:51 Toradol; ss - Home Meds: 13:21 Arixtra [Active]; Bystolic Oral [Active]; carvedilol 25 mg Oral tab 1 tab 2 times per bp day [Active]; Lipitor Oral [Active]; lisinopril Oral [Active]; nitroglycerin 0.4 mg SL subl 1 tab every 5 minutes [Active]; [place] Oral [Active]; Plavix 75 mg Oral tab 1 tab once daily [Active]; Zanaflex Oral [Active]; - PMHx: 08:51 FACTOR V; Hyperlipidemia; Hypertension; Myocardial infarction; ss - PSHx: 08:51 Heart stents; back surgery; Cholecystectomy; port a cath; ss - Immunization history:: Adult Immunizations up to date. - Social history:: Smoking status: Patient/guardian denies using tobacco. - Ebola Screening: : Patient denies exposure to infectious person Patient denies travel to an Ebola-affected area in the 21 days before illness onset. - Family history:: not pertinent. Screenin:50 Abuse screen: Denies threats or abuse. Denies injuries from another. Nutritional bp screening: No deficits noted. Tuberculosis screening: No symptoms or risk factors identified. Fall Risk None identified. Assessment: 08:50 General: Appears in no apparent distress. comfortable, Behavior is calm, cooperative, bp appropriate for age. Pain: Complains of pain in chest Pain does not radiate. Pain began suddenly. Neuro: Level of Consciousness is awake, alert, obeys commands, Oriented to person, place, time, situation, Appropriate for age. Cardiovascular: Rhythm is sinus rhythm. Respiratory: Airway is patent Respiratory effort is even, unlabored, Respiratory pattern is regular, symmetrical. GI: No signs and/or symptoms were reported involving the gastrointestinal system. : No signs and/or symptoms were reported regarding the genitourinary system. EENT: No deficits noted. Derm: No deficits noted. Musculoskeletal: Circulation, motion, and sensation intact. Range of motion: intact in all extremities. 11:00 Reassessment: ALL CURRENT ORDERS COMPLETED, DISPO PENDING. bp 12:30 Reassessment: ADMIT IN PROCESS, VS STABLE ON MONITOR. bp Vital Signs: 08:51 BP 116 / 92; Pulse 124; Resp 27; Temp 97.7; Pulse Ox 100% on R/A; Weight 90.72 kg; ss Height 5 ft. 7 in. (170.18 cm); Pain 7/10; 10:10 BP 136 / 88; Pulse 100; Resp 21; Pulse Ox 97% on R/A; Pain 8/10; ca1 11:08 BP 122 / 80; Pulse 103; Resp 26; Pulse Ox 98% on R/A; Pain 6/10; ca1 12:30 BP 153 / 103; Pulse 93; Resp 16; Pulse Ox 100% ; bp 08:51 Body Mass Index 31.32 (90.72 kg, 170.18 cm) ED Course: 08:42 Patient arrived in ED. as 08:44 Surjit Sears, RN is Primary Nurse. bp 08:50 Triage completed. ss 08:50 Patient has correct armband on for positive identification. Allergy band placed. Bed in bp low position. Call light in reach. Side rails up X2. secured entrance monitor on. Pulse ox on. NIBP on. 08:51 Arm band placed on right wrist. 08:56 Derian Vo MD is Attending Physician. [facility] 08:56 EKG done, by ED staff, reviewed by Derian Vo MD. mh5 09:15 XRAY Chest (1 view) In Process Unspecified. EDMS 09:30 Accessed Port-a-Cath. using accessed w/ # 20 Rich needle, ,sterile technique, per [facility] hospital protocol. Clean \T\ dry. Dressing intact. Good blood return. Flushes easily. 09:30 Initial lab(s) drawn, by me, sent to lab. ca1 11:17 Jaleesa Daniels MD is Hospitalizing Provider. lauryn 13:24 No provider procedures requiring assistance completed. Patient admitted, IV remains in bp place. Patient maintains SpO2 saturation greater than 95% on room air. Administered Medications: 10:15 Drug: NS 0.9% 500 ml Route: IV; Rate: bolus; Site: Port-a-cath; ca1 11:15 Follow up: IV Status: Completed infusion; IV Intake: 500ml ca1 10:16 Drug: Dilaudid 1 mg Route: IVP; Site: Port-a-cath; ca1 11:16 Follow up: Response: No adverse reaction ca1 10:17 Drug: Zofran 4 mg Route: IVP; Site: Port-a-cath; ca1 11:16 Follow up: Response: No adverse reaction ca1 11:08 Drug: NS 0.9% 1000 ml Route: IV; Rate: 125 ml/hr; Site: Port-a-cath; ca1 13:27 Follow up: IV Status: Infusion continued upon admission bp 11:18 Drug: Dilaudid 1 mg Route: IVP; Site: Port-a-cath; ca1 13:26 Follow up: Response: Pain is decreased bp 11:38 Drug: Imdur 30 mg Route: PO; ca1 13:26 Follow up: Response: No adverse reaction bp Intake: 11:15 IV: 500ml; Total: 500ml. ca1 Outcome: 11:17 Decision to Hospitalize by Provider. lauryn 13:14 Admitted to Tele accompanied by tech, via wheelchair, room 430, with chart, Report bp called to KASI WRIGHT 13:14 Condition: stable 13:14 Instructed on the need for admit. 13:38 Patient left the ED. bd Signatures: Dispatcher [employer] EDMS Migdalia Blandon Corey, MD MD cha Martinez, Amelia as Smirch, Shelby, RN RN Lilibeth Coppola [facility] Surjit Seasr RN RN Claire Luu RN RN ca1
--- NOTE | 2018-09-18 11:18 | EDPHYS ---
Physician Documentation [facility] Name: Christiano Serra Age: 48 yrs Sex: Male : 1970 Arrival Date: 09/18/2018 Time: 08:42 Bed 4 Private MD: ED Physician Derian Vo HPI: 09/18 09:54 This 48 yrs old Other Male presents to ER via Ambulatory with complaints of Chest Pain. [facility] 09:54 The patient or guardian reports chest pain that is located primarily in the substernal lauryn area, anterior chest wall. Onset: this morning, last night. The pain does not radiate. Associated signs and symptoms: The patient has no apparent associated signs or symptoms. The chest pain is described as a heaviness. Duration: The patient or guardian reports a single episode, that is still ongoing. Modifying factors: The symptoms are alleviated by nothing. the symptoms are aggravated by activity. Severity of pain: At its worst the pain was mild moderate in the emergency department the pain is unchanged. The patient has experienced similar episodes in the past, multiple times. Historical: - Allergies: 08:51 ambien; ss 08:51 Morphine; ss 08:51 Toradol; ss - Home Meds: 13:21 Arixtra [Active]; Bystolic Oral [Active]; carvedilol 25 mg Oral tab 1 tab 2 times per bp day [Active]; Lipitor Oral [Active]; lisinopril Oral [Active]; nitroglycerin 0.4 mg SL subl 1 tab every 5 minutes [Active]; [place] Oral [Active]; Plavix 75 mg Oral tab 1 tab once daily [Active]; Zanaflex Oral [Active]; - PMHx: 08:51 FACTOR V; Hyperlipidemia; Hypertension; Myocardial infarction; ss - PSHx: 08:51 Heart stents; back surgery; Cholecystectomy; port a cath; ss - Immunization history:: Adult Immunizations up to date. - Social history:: Smoking status: Patient/guardian denies using tobacco. - Ebola Screening: : Patient denies exposure to infectious person Patient denies travel to an Ebola-affected area in the 21 days before illness onset. - Family history:: not pertinent. ROS: 09:54 Constitutional: Negative for fever, chills, and weight loss, Eyes: Negative for injury, lauryn pain, redness, and discharge, ENT: Negative for injury, pain, and discharge, Neck: Negative for injury, pain, and swelling, Respiratory: Negative for shortness of breath, cough, wheezing, and pleuritic chest pain, Abdomen/GI: Negative for abdominal pain, nausea, vomiting, diarrhea, and constipation, Back: Negative for injury and pain, : Negative for injury, bleeding, discharge, and swelling, MS/Extremity: Negative for injury and deformity, Skin: Negative for injury, rash, and discoloration, Neuro: Negative for headache, weakness, numbness, tingling, and seizure, Psych: Negative for depression, anxiety, suicide ideation, homicidal ideation, and hallucinations, Allergy/Immunology: Negative for hives, rash, and allergies, Endocrine: Negative for neck swelling, polydipsia, polyuria, polyphagia, and marked weight changes, Hematologic/Lymphatic: Negative for swollen nodes, abnormal bleeding, and unusual bruising. 09:54 Cardiovascular: Positive for chest pain, of the chest. Exam: 09:54 Constitutional: This is a well developed, well nourished patient who is awake, alert, lauryn and in no acute distress. Head/Face: Normocephalic, atraumatic. Eyes: Pupils equal round and reactive to light, extra-ocular motions intact. Lids and lashes normal. Conjunctiva and sclera are non-icteric and not injected. Cornea within normal limits. Periorbital areas with no swelling, redness, or edema. ENT: Nares patent. No nasal discharge, no septal abnormalities noted. Tympanic membranes are normal and external auditory canals are clear. Oropharynx with no redness, swelling, or masses, exudates, or evidence of obstruction, uvula midline. Mucous membranes moist. Neck: Trachea midline, no thyromegaly or masses palpated, and no cervical lymphadenopathy. Supple, full range of motion without nuchal rigidity, or vertebral point tenderness. No Meningismus. Chest/axilla: Normal chest wall appearance and motion. Nontender with no deformity. No lesions are appreciated. Cardiovascular: Regular rate and rhythm with a normal S1 and S2. No gallops, murmurs, or rubs. Normal PMI, no JVD. No pulse deficits. Respiratory: Lungs have equal breath sounds bilaterally, clear to auscultation and percussion. No rales, rhonchi or wheezes noted. No increased work of breathing, no retractions or nasal flaring. Abdomen/GI: Soft, non-tender, with normal bowel sounds. No distension or tympany. No guarding or rebound. No evidence of tenderness throughout. Back: No spinal tenderness. No costovertebral tenderness. Full range of motion. Male : Normal genitalia with no discharge or lesions. Skin: Warm, dry with normal turgor. Normal color with no rashes, no lesions, and no evidence of cellulitis. MS/ Extremity: Pulses equal, no cyanosis. Neurovascular intact. Full, normal range of motion. Neuro: Awake and alert, GCS 15, oriented to person, place, time, and situation. Cranial nerves II-XII grossly intact. Motor strength 5/5 in all extremities. Sensory grossly intact. Cerebellar exam normal. Normal gait. Psych: Awake, alert, with orientation to person, place and time. Behavior, mood, and affect are within normal limits. 09:54 Musculoskeletal/extremity: DVT Exam: No signs of deep vein thrombosis. no pain, no swelling, no tenderness, negative Homans' sign noted on exam, no appreciated bluish discoloration, no erythema, no increased warmth. Vital Signs: 08:51 BP 116 / 92; Pulse 124; Resp 27; Temp 97.7; Pulse Ox 100% on R/A; Weight 90.72 kg; ss Height 5 ft. 7 in. (170.18 cm); Pain 7/10; 10:10 BP 136 / 88; Pulse 100; Resp 21; Pulse Ox 97% on R/A; Pain 8/10; ca1 11:08 BP 122 / 80; Pulse 103; Resp 26; Pulse Ox 98% on R/A; Pain 6/10; ca1 12:30 BP 153 / 103; Pulse 93; Resp 16; Pulse Ox 100% ; bp 08:51 Body Mass Index 31.32 (90.72 kg, 170.18 cm) MDM: 08:57 Patient medically screened. [facility] 09:56 Data reviewed: vital signs, nurses notes, lab test result(s), EKG, radiologic studies, lauryn plain films. 09/18 08:53 Order name: Basic Metabolic Panel; Complete Time: 11:09 ss 09/18 08:53 Order name: CBC with Diff; Complete Time: 11: ss 09/18 08:53 Order name: LFT's; Complete Time: 11: ss 09/18 08:53 Order name: Magnesium; Complete Time: 11:09 ss 09/18 08:53 Order name: NT PRO-BNP; Complete Time: 11:09 ss 09/18 08:53 Order name: PT-INR; Complete Time: 11:09 ss 09/18 08:53 Order name: Troponin (emerg Dept Use Only); Complete Time: 11:09 ss 09/18 08:57 Order name: Lipase; Complete Time: 11:09 lauryn 09/18 08:57 Order name: UDS lauryn 09/18 12:14 Order name: CBC with Automated Diff EDMS 09/18 12:14 Order name: CBC with Automated Diff EDMS 09/18 12:14 Order name: CBC with Automated Diff EDMS 09/18 12:14 Order name: CBC with Automated Diff EDMS 09/18 12:14 Order name: Comprehensive Metabolic Panel EDSD 09/18 08:53 Order name: XRAY Chest (1 view); Complete Time: 11:09 ss 09/18 08:53 Order name: EKG; Complete Time: 08:54 ss 09/18 12:14 Order name: CONS Physician Consult EDSD 09/18 12:14 Order name: Comprehensive Metabolic Panel EDMS 09/18 12:14 Order name: Comprehensive Metabolic Panel EDMS 09/18 12:14 Order name: Comprehensive Metabolic Panel EDMS 09/18 12:14 Order name: Troponin I EDSD 09/18 12:14 Order name: Troponin I EDSD 09/18 12:14 Order name: Troponin I EDSD 09/18 12:14 Order name: Troponin I EDMS 09/18 08:53 Order name: Cardiac monitoring; Complete Time: 08:54 ss 09/18 08:53 Order name: EKG - Nurse/Tech; Complete Time: 08:54 ss 09/18 08:53 Order name: IV Saline Lock; Complete Time: 10:57 ss 09/18 08:53 Order name: Labs collected and sent; Complete Time: 10:57 ss 09/18 08:53 Order name: O2 Per Protocol; Complete Time: 08:55 ss 09/18 08:53 Order name: O2 Sat Monitoring; Complete Time: 08:55 ss 09/18 12:14 Order name: Heart Healthy EDMS Administered Medications: 10:15 Drug: NS 0.9% 500 ml Route: IV; Rate: bolus; Site: Port-a-cath; ca1 11:15 Follow up: IV Status: Completed infusion; IV Intake: 500ml ca1 10:16 Drug: Dilaudid 1 mg Route: IVP; Site: Port-a-cath; ca1 11:16 Follow up: Response: No adverse reaction ca1 10:17 Drug: Zofran 4 mg Route: IVP; Site: Port-a-cath; ca1 11:16 Follow up: Response: No adverse reaction ca1 11:08 Drug: NS 0.9% 1000 ml Route: IV; Rate: 125 ml/hr; Site: Port-a-cath; ca1 13:27 Follow up: IV Status: Infusion continued upon admission bp 11:18 Drug: Dilaudid 1 mg Route: IVP; Site: Port-a-cath; ca1 13:26 Follow up: Response: Pain is decreased bp 11:38 Drug: Imdur 30 mg Route: PO; ca1 13:26 Follow up: Response: No adverse reaction bp Disposition: 09/18/18 11:17 Hospitalization ordered by Jaleesa Daniels for Observation. Preliminary diagnosis are Chest pain, unspecified, Tachycardia, unspecified, Anemia, unspecified. - Bed requested for Telemetry/MedSurg (observation). - Status is Observation. bd - Condition is Fair. - Problem is new. - Symptoms have improved. UTI on Admission? No Signatures: Dispatcher [employer] EDMS Migdalia Blandon Corey, MD MD cha Smirch, Shelby, RN RN ss Surjit Sears RN RN bp Acob, Cheryl, RN RN ca1 Corrections: (The following items were deleted from the chart) 11:44 11:17 Hospitalization Ordered by Jaleesa Daniels MD for Observation. Preliminary lauryn diagnosis is Chest pain, unspecified; Tachycardia, unspecified. Bed requested for Telemetry/MedSurg (observation). Status is Observation. Condition is Fair. Problem is new. Symptoms have improved. UTI on Admission? No. lauryn 12:34 11:44 09/18/2018 11:17 Hospitalization Ordered by Jaleesa Daniels MD for Observation. bd Preliminary diagnosis is Chest pain, unspecified; Tachycardia, unspecified; Anemia, unspecified. Bed requested for Telemetry/MedSurg (observation). Status is Observation. Condition is Fair. Problem is new. Symptoms have improved. UTI on Admission? No. [facility] 13:38 12:34 09/18/2018 11:17 Hospitalization Ordered by Jaleesa Daniels MD for Observation. bd Preliminary diagnosis is Chest pain, unspecified; Tachycardia, unspecified; Anemia, unspecified. Bed requested for Telemetry/MedSurg (observation). Status is Observation. Condition is Fair. Problem is new. Symptoms have improved. UTI on Admission? No. bd
[2018-09-18] MEDS ORDERED: ISOSORBIDE MONO SR 30 MG TAB PO SCH (12:00)
[2018-09-18 13:58] VITALS: TEMP 97.7
[2018-09-18 14:02] VITALS: BP 153/103; O2SAT 100
[2018-09-18] MEDS ORDERED: TIZANIDINE 4 MG TABLET PO PRN (14:14)
[2018-09-18 14:16] VITALS: BMI 31.3
--- NOTE | 2018-09-18 14:35 | P.HP ---
Certification for Inpatient Patient admitted to: Observation With expected LOS: <2 Midnights Patient will require the following post-hospital care: None Practitioner: I am a practitioner with admitting privileges, knowledge of patient current condition, hospital course, and medical plan of care. Services: Services provided to patient in accordance with Admission requirements found in Title 42 Section 412.3 of the Code of Federal Regulations Patient History Date of Service: 09/18/18 Reason for admission: Chest Pain History of Present Illness: This is a 48-year-old male with a history of PVD, factor 5 laden deficiency, 2 previous myocardial infarctions, 2 coronary stent placement admitted for chest pain. Per patient chest pain started the morning of admission while he was at rest. Denies any radiation, described as a sharp/pressure-like pain in the substernal area without any radiation. No Alleviating or exacerbating factors. Patient did take nitro x3 which did not help. Patient has been seen here in the hospital frequently for the similar complaints. Patient does see Dr. Patel at [place] for his CAD. Patient last time when he was admitted was seen by cardiology who recommended cardiac catheterization. Patient is thought to have chest pain secondary to coronary spasms was prescribed Imdur as well. Unknown if patient is taking his medication as prescribed. Before cardiac catheterization can be done patient left AMA as he wanted IV pain medication. Patient has a history of noncompliance and pain medication abuse. In the ER patient had troponin x1 done which was negative, EKG was nonspecific with no acute changes. At the time of my exam, patient reported improved chest pain with Dilaudid, he was hemodynamically stable and was in no acute distress. He was alert oriented x3 Allergies ketorolac tromethamine [From Toradol] Allergy (Intermediate, Verified 02/19/17 00:21) Hives morphine Allergy (Verified 02/19/17 00:21) Hives zolpidem tartrate [From Ambien] Adverse Reaction (Intermediate, Verified 00:21) sleepwalk Home Medications: Hydrocodone 10/APAP 325 [[place] 10/325*] 1 tab PO Q4HP PRN 07/28/14 Tizanidine [Zanaflex*] 2 tab PO Q4HP PRN 07/29/14 Clopidogrel Bisulfate [Plavix*] 75 mg PO DAILY 02/19/17 Fondaparinux [Arixtra*] 7.5 mg PO DAILY 02/19/17 Lisinopril 10 mg PO DAILY 02/19/17 Nebivolol HCl [Bystolic*] 20 mg PO DAILY 08/09/18 Atorvastatin Calcium [Lipitor] 40 mg PO BEDTIME 09/18/18 - Past Medical/Surgical History Has patient received pneumonia vaccine in the past: No Diabetic: 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 -: Coronary Artery Disease -: Pulmonary Embolism -: Pericarditits -: SVT -: [place] -: Back Surgery -: Cholecystectomy -: right chest wall surinder cath -: Cardiac stents -: Port-a-cath - Social History Smoking Status: Never smoker Alcohol use: No CD- Drugs: No Caffeine use: No Place of Residence: Home Review of Systems 10-point ROS is otherwise unremarkable Physical Examination - Vital Signs Temperature: 97.7 F Blood Pressure: 153/103 Pulse: 93 Respirations: 16 - Physical Exam General: Alert, In no apparent distress HEENT: Atraumatic, PERRLA, Mucous membr. moist/pink, EOMI, Sclerae nonicteric Neck: Supple, 2+ carotid pulse no bruit, No LAD, Without JVD or thyroid abnormality Respiratory: Clear to auscultation bilaterally, Normal air movement Cardiovascular: Regular rate/rhythm, Normal S1 S2 Gastrointestinal: Normal bowel sounds, No tenderness Musculoskeletal: No tenderness Integumentary: No rashes Neurological: Normal gait, Normal speech, Normal strength at 5/5 x4 extr, Normal tone, Normal affect Lymphatics: No axilla or inguinal lymphadenopathy - Studies Laboratory Data (last 24 hrs) 09/18/18 09:37: Lipase 125 09/18/18 09:37: PT 12.9 H, INR 1.09 09/18/18 09:37: WBC 5.7, Hgb 9.8 L, Hct 30.5 L, Plt Count 386 09/18/18 09:37: Sodium 137, Potassium 3.6, BUN 16, Creatinine 1.00, Glucose 175 H, Magnesium 2.3, Total Bilirubin 0.6, AST 19, ALT 27, Alkaline Phosphatase 95 Assessment and Plan - Problems (Diagnosis) (1) Chest pain Onset Date: 08/10/18 Current Visit: No Status: Acute Plan: Atypical chest pain. Troponin x1 negative. -will get troponin x2 here in the hospital -restart home medication at this time. -continue Paras and beta-lucinda -hold Plavix for possible intervention -no aspirin due to allergy profile -will give Lovenox here -will consult cardiology for further recommendations Qualifiers: Chest pain type: other chest pain Qualified Code(s): R07.89 - Other chest pain; R07.8 - Other chest pain (2) CAD (coronary artery disease) Onset Date: 02/19/17 Current Visit: No Status: Chronic Plan: See #1 Qualifiers: Coronary Disease-Associated Artery/Lesion type: [place] artery [place] vs. transplanted heart: [place] heart Associated angina: with stable angina Qualified Code(s): I25.118 - Atherosclerotic heart disease of [place] coronary artery with other forms of angina pectoris (3) Factor 5 Leiden mutation, heterozygous Onset Date: 02/19/17 Current Visit: No Status: Chronic (4) History of pulmonary embolism Current Visit: No Status: Chronic - Plan Patient to be admitted to medical-surgical floor for further workup of his chest pain. Discharge Plan: Home Plan to discharge in: 48 Hours - Advance Directives Does patient have a Living Will: No Does patient have a Durable POA for Healthcare: No - Code Status/Comfort Care Code Status Assessed: Yes Critical Care: No
[2018-09-18] MEDS ORDERED: ATORVASTATIN 40 MG TAB PO SCH (21:00)
--- NOTE | 2018-09-19 06:44 | CON ---
Date of Consultation: 09/18/2018 The patient was admitted on 09/18/[address] Daniels's service. The patient was seen on 09/18/2018. History Of Present Illness: Mr. Serra is a 48-year-old who has history of factor V deficiency, CAD, hypertension, multiple pulmonary emboli, status post PCI. He has dyslipidemia. He was just in the hospital, this is the third time in less than 6 weeks. He had an echocardiogram in July 2018 and chest x-ray that were negative. He came in with a hemoglobin of 9.8, glucose was 175. He came in wi th chest pain again. Every time Mr. Serra comes, a heart catheterization is recommended, but he was asked to follow up with Dr. Patel in [place], but he keeps coming back here just about every week wi th the same symptoms. Allergies: TO MORPHINE AND AMBIEN. Review of Systems: Negative. Social History: Negative. Family History: Noncontributory. Medications: Include Lipitor, Bystolic, Arixtra, lisinopril, Plavix. Physical Examination: Vital Signs: Stable, afebrile. HEENT: Negative. Neck: Supple with no bruit. Chest: Clear. Cardiac: Normal. Abdomen: Benign. Extremities: Revealed no clubbing, cyanosis, or edema. Diagnostic Data: As stated earlier. Troponin is negative. EKG is negative. Impression And Plan: The patient with history of coronary artery disease with continued chest pain. Despite adequate medical therapy, has mild anemia, possibly diabetic, may be new onset. Heart tom terization was recommended at this time. He would think about it. His other problems including hist ory of hypertension, dyslipidemia, and factor V Leiden deficiency are stable. NB/MODL Voice ID: [id number] Report ID: [id number]
--- NOTE | 2018-09-19 07:12 | EKG ---
Test Date: 2018-09-18 Test Time: 08:54:05 [employer] Starcher: [place] MEASUREMENT RESULTS: Intervals: Rate: 121 SD: 150 QRSD: 86 QT: 324 QTc: 460 Grady: P: 32 SD: 150 QRS: 16 T: 32 INTERPRETIVE STATEMENTS: Sinus tachycardia Possible Left atrial enlargement Borderline ECG Compared to ECG 09/03/2018 20:04:26 ST (T wave) deviation no longer present Electronically Signed On 09-19-18 07:11:05 [employer] CARP[employer] by Ino Prado
[2018-09-19] MEDS ORDERED: CLOPIDOGREL 75 MG TABLET PO SCH (09:00)
[2018-09-19] MEDS ORDERED: LISINOPRIL 10 MG TAB PO SCH (09:00)
[2018-09-19] MEDS ORDERED: NEBIVOLOL HCL 20 MG TABLET PO SCH (09:00)
[2018-09-19] MEDS ORDERED: FONDAPARINUX SOD 7.5 MG/0.6 ML SQ SCH (09:00)
== END 2018-09-18 15:10 | disposition left against medical advice (07) ==
LOC: ER 08:41 → ERHOLD 12:13 → 4TH 13:15
PROVIDERS: ADMIT Family Medicine; ATTEND Family Medicine
DX: R07.89 Other chest pain (principal); I25.10 Atherosclerotic heart disease of native coronary artery without angina pectoris; I73.9 Peripheral vascular disease, unspecified; D68.2 Hereditary deficiency of other clotting factors; I25.2 Old myocardial infarction; Z95.5 Presence of coronary angioplasty implant and graft; Z86.711 Personal history of pulmonary embolism
CPT/HCPCS: 36415; 71045; 80048; 80076; 83690; 83735; 83880; 84484; 85025; 85610; 93005; 96361; 96374; 96375; 99285; G0378; J1170; J2405; J7030

== ENCOUNTER 2018-10-20 11:00 | Observation (INO) | payer BC ==
--- OUTSIDE RECORDS SUMMARY | 2018-10-20 11:02 | XMS REPORT | Clinical Summary ---
:1970 Author Organization [facility] Address [address] [place] [address] Care Team Providers Name Role Phone Asked, No Pcp Primary Care Provider Unavailable Allergies Active Allergy Reactions Severity Noted Date Comments Ketorolac Hives, Rash High 05/23/2010 Rashes Other reaction(s): Ketorolac Able to take other NSAIDs like motrin and aleve Able to take other NSAIDs like motrin and aleve Ketorolac Tromethamine Hives Medium 02/19/2017 Morphine Rash Low 08/02/2017 Break out. Zolpidem Anxiety High 12/23/2009 Sleep walk. Other reaction(s): Hallucinations, Other (See Comments), Sleep walking, sleepwalk, Zolpidem Sleep walk Per patient "Sleep Walking". 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, unspecified vessel or lesion type; Other chronic pulmonary embolism without acute cor pulmonale 05/02/2018 Emergency Emergency Saeed Diana Chest pain, Nilda Mejia MD unspecified type (Primary Dx) 12/12/2017 - Hospital Encounter General Internal Bryce Mcgowan, 12/15/2017 Medicine DO 12/12/2017 Orders Only General Internal Bryce Mcgowan Medicine DO 11/26/2017 - Hospital Encounter General Surgery [place], Chest pain in adult (Primary Dx); 11/27/2017 Alejandro Garza, Acquired coagulation factor deficiency; Coronary artery disease 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 DIRECT TISH' (MAURI) Timed 12/14/2017 10:28 Results for this AM BUSINESS TEAM LEADER procedure are in the results section. ANTIBODY IDENTIFICATION Timed 12/14/2017 10:28 Results for this AM BUSINESS TEAM LEADER procedure are in the results section. TYPE AND SCREEN Routine 12/14/2017 10:28 Results for this AM BUSINESS TEAM LEADER procedure are in the results section. HC COMPLETE BLD COUNT STAT 12/14/2017 8:35 Results for this W/AUTO DIFF AM BUSINESS TEAM LEADER procedure are in the results section. VANCOMYCIN LEVEL, Timed 12/14/2017 8:35 Results for this TROUGH AM BUSINESS TEAM LEADER procedure are in the results section. CT ANGIOGRAM PE CHEST Routine 12/13/2017 2:28 Results for this PM BUSINESS TEAM LEADER procedure are in the results section. BLOOD CULTURE, AEROBIC Routine 12/13/2017 10:40 Results for this & ANAEROBIC AM BUSINESS TEAM LEADER procedure are in the results section. INFLUENZA ANTIGEN Routine 12/13/2017 10:10 Results for this AM BUSINESS TEAM LEADER procedure are in the results section. ZZESTIMATED GFR Routine 12/13/2017 5:10 Results for this AM BUSINESS TEAM LEADER procedure are in the results section. HC COMPLETE BLD COUNT Routine 12/13/2017 5:10 Results for this W/AUTO DIFF AM BUSINESS TEAM LEADER procedure are in the results section. BASIC METABOLIC PANEL Routine 12/13/2017 5:10 Results for this AM BUSINESS TEAM LEADER procedure are in the results section. TROPONIN Timed 12/13/2017 12:07 Results for this AM BUSINESS TEAM LEADER procedure are in the results section. TROPONIN Timed 12/12/2017 2:47 Results for this PM BUSINESS TEAM LEADER procedure are in the results section. LIPID PANEL Routine 12/12/2017 2:47 Results for this PM BUSINESS TEAM LEADER procedure are in the results section. TROPONIN Timed 11/27/2017 11:47 Results for this AM BUSINESS TEAM LEADER procedure are in the results section. ECG 12-LEAD Routine 11/27/2017 11:02 Results for this AM BUSINESS TEAM LEADER procedure are in the results section. CBC WITH PLATELET AND Timed 11/27/2017 5:38 Results for this DIFFERENTIAL AM BUSINESS TEAM LEADER procedure are in the results section. BASIC METABOLIC PANEL Timed 11/27/2017 5:38 Results for this AM BUSINESS TEAM LEADER procedure are in the results section. ZZESTIMATED GFR Timed 11/27/2017 5:38 Results for this AM BUSINESS TEAM LEADER procedure are in the results section. TROPONIN Timed 11/27/2017 5:38 Results for this AM BUSINESS TEAM LEADER procedure are in the results section. TROPONIN Routine 11/26/2017 11:35 Results for this PM BUSINESS TEAM LEADER procedure are in the results section. ECG 12-LEAD Routine 11/26/2017 10:59 Results for this PM BUSINESS TEAM LEADER procedure are in the results section. after 10/19/2017 Results Transfuse RBC (06/15/2018 5:50 PM CDT)Only the most recent of2 resultswithin the time period is included.Troponin (05/13/2018 12:34 PM CDT)Only the most recent of9 resultswithin the time period is included. Troponin <0.300 0.000 - 0.300 ng/mL [facility] DEPARTMENT OF Comment: PATHOLOGY AND GENOMIC 0.30 - 1.49 ng/mlMay indicate increased risk of acute MEDICINE coronary syndrome. >=1.5 ng/mlConsistent with acute myocardial infarction. The diagnostic value of a single normal or non-diagnostic result is questionable.Serial samples at 2-6 hour intervals are required to rule out acute myocardial injury. Specimen Plasma specimen Performing Organization Address [facility] Phone Number [facility] DEPARTMENT OF PATHOLOGY AND [address] [place] [address] Dr [place] [address] [place] [facility] Prothrombin time with INR (05/13/2018 6:30 AM CDT)Only the most recent of2 resultswithin the time period is included. Prothrombin time 12.6 12.0 - 15.0 sec [facility] DEPARTMENT OF PATHOLOGY AND GENOMIC MEDICINE INR 0.9 [facility] DEPARTMENT OF Comment: PATHOLOGY AND GENOMIC The International Normalized Ratio (INR) is a therapeutic MEDICINE monitoring tool for patients who are stable on oral anticoagulant therapy. An INR of 2.0-3.0 is suggested for deep vein thrombosis/pulmonary embolism. Specimen Blood Performing Organization Address [facility] Phone Number [facility] AND [address] [place] [address] Dr [place] [address] [facility] ECG 12 lead (05/13/2018 5:49 AM CDT)Only the most recent of4 resultswithin the time period is included. Ventricular rate 85 [facility]USE Atrial rate 85 [facility] CO interval 158 [facility] QRSD interval 78 [...] longer present-premature ventricular complexes are no longer [facility] MUSE present-premature supraventricular complexes are no longer present- Performing Organization Address City/[facility] Phone Number [facility] MUSE [address] [place] [address] Smear review (05/13/2018 12:35 AM CDT)Only the most recent of2 resultswithin the time period is included. Platelet slide review Antonia adequate [facility] DEPARTMENT OF PATHOLOGY AND GENOMIC MEDICINE Anisocytosis Moderate [facility] DEPARTMENT OF PATHOLOGY AND GENOMIC MEDICINE Tear drop cells Occasional [facility] DEPARTMENT OF PATHOLOGY AND GENOMIC MEDICINE Schistocytes Occasional [facility] DEPARTMENT OF PATHOLOGY AND GENOMIC MEDICINE Performing Organization Address [facility] Phone Number [facility] DEPARTMENT OF PATHOLOGY AND [address] [place] [address] [place] [address] [facility] Estimated GFR (05/13/2018 12:35 AM CDT)Only the most recent of4 resultswithin the time period is included. GFR Non Af Amer 80 mL/min/1.73 m2 [facility] DEPARTMENT OF PATHOLOGY AND GENOMIC MEDICINE GFR Af Amer >90 mL/min/1.73 m2 [facility] DEPARTMENT OF Comment: PATHOLOGY AND [...] Americans. Specimen Plasma specimen Performing Organization Address [facility] Phone Number [facility] PATHOLOGY AND [id number] [place] [address] [place] [address] [facility] CBC with platelet and differential (05/13/2018 12:35 AM CDT)Only the most recent of5 resultswithin the time period is included. WBC 9.59 4.50 - 11.00 k/uL [facility] DEPARTMENT OF PATHOLOGY AND GENOMIC MEDICINE RBC 3.86 (L) 4.40 - 6.00 m/uL [facility] DEPARTMENT OF PATHOLOGY AND GENOMIC MEDICINE HGB 9.7 (L) 14.0 - 18.0 g/dL [facility] DEPARTMENT OF PATHOLOGY AND GENOMIC MEDICINE HCT 31.2 (L) 41.0 - 51.0 % [facility] DEPARTMENT OF PATHOLOGY AND GENOMIC MEDICINE MCV 80.8 (L) 82.0 - 100.0 fL [facility] DEPARTMENT OF PATHOLOGY AND GENOMIC MEDICINE MCH 25.1 (L) 27.0 - 34.0 pg [facility] DEPARTMENT OF PATHOLOGY AND GENOMIC MEDICINE MCHC 31.1 31.0 - 37.0 g/dL [facility] DEPARTMENT OF PATHOLOGY AND GENOMIC MEDICINE RDW - SD 75.7 (H) 37.0 - 55.0 fL [facility] DEPARTMENT OF PATHOLOGY AND GENOMIC MEDICINE MPV 8.9 8.8 - 13.2 fL [facility] DEPARTMENT OF PATHOLOGY AND GENOMIC MEDICINE Platelet count 248 150 - 400 k/uL [facility] DEPARTMENT OF PATHOLOGY AND GENOMIC MEDICINE Nucleated RBC 0.00 /100 WBC [facility] DEPARTMENT OF PATHOLOGY AND GENOMIC MEDICINE Neutrophils 45.8 39.0 - 69.0 % [facility] DEPARTMENT OF PATHOLOGY AND GENOMIC MEDICINE Lymphocytes 38.3 25.0 - 45.0 % [facility] DEPARTMENT OF PATHOLOGY AND GENOMIC MEDICINE Monocytes 15.3 (H) 0.0 - 10.0 % [facility] DEPARTMENT OF PATHOLOGY AND GENOMIC MEDICINE Eosinophils 0.3 0.0 - 5.0 % [facility] DEPARTMENT OF PATHOLOGY AND GENOMIC MEDICINE Basophils 0.1 0.0 - 1.0 % [facility] DEPARTMENT OF PATHOLOGY AND GENOMIC MEDICINE Specimen Blood Performing Organization Address City/State/Zipcode Phone Number [facility] DEPARTMENT [facility] AND [address] [place] [address] [facility] MEDICINE Comprehensive metabolic panel (05/13/2018 12:35 AM CDT)Only the most recent of2 resultswithin the time period is included. Sodium 139 135 - 148 mEq/L [facility] DEPARTMENT OF PATHOLOGY AND GENOMIC MEDICINE Potassium 3.5 3.5 - 5.0 mEq/L [facility] DEPARTMENT OF PATHOLOGY AND GENOMIC MEDICINE Chloride 103 98 - 112 mEq/L [facility] DEPARTMENT OF PATHOLOGY AND GENOMIC MEDICINE CO2 24 24 - 31 mEq/L [facility] DEPARTMENT OF PATHOLOGY AND GENOMIC MEDICINE Anion gap 12@ANIO 7 - 15 mEq/L [facility] DEPARTMENT OF PATHOLOGY AND GENOMIC MEDICINE BUN 22 (H) 6 - 20 mg/dL [facility] DEPARTMENT OF PATHOLOGY AND GENOMIC [facility] Creatinine 1.0 0.7 - 1.2 mg/dL [facility] DEPARTMENT OF PATHOLOGY AND GENOMIC [facility] Glucose 102 (H) 65 - 99 mg/dL [facility] DEPARTMENT OF PATHOLOGY AND GENOMIC MEDICINE Calcium 8.1 (L) 8.3 - 10.2 mg/dL [facility] DEPARTMENT OF PATHOLOGY AND GENOMIC [facility] Protein 6.8 6.3 - 8.3 g/dL [facility] DEPARTMENT OF Comment: PATHOLOGY AND GENOMIC 4.6-7.0 g/dL MEDICINE 1 week 4.4-7.6 g/dL 7 months-1year5.1-7.3 g/dL 1-2 years5.6-7.5 g/dL >3 years6.0-8.0 g/dL 18-150 6.3-8.3 g/dL Albumin 4.1 3.5 - 5.0 g/dL [facility] DEPARTMENT OF PATHOLOGY AND GENOMIC [facility] A/G ratio 1.5 0.7 - 3.8 [facility] DEPARTMENT OF PATHOLOGY AND GENOMIC [facility] Alkaline phosphatase 62 40 - 129 U/L [facility] DEPARTMENT OF PATHOLOGY AND GENOMIC MEDICINE AST 16 10 - 50 U/L [facility] DEPARTMENT OF PATHOLOGY AND GENOMIC MEDICINE ALT 11 5 - 50 U/L [facility] DEPARTMENT OF PATHOLOGY AND GENOMIC [facility] Total bilirubin 0.4 0.0 - 1.2 mg/dL [facility] DEPARTMENT OF PATHOLOGY AND GENOMIC [facility] Specimen Plasma specimen Performing Organization Address [facility] Phone Number [facility] DEPARTMENT OF PATHOLOGY AND [address] [place] [address] [place] [address] [facility] Partial thromboplastin time, activated (05/02/2018 10:03 AM CDT) PTT 34.9 23.0 - 36.0 sec [facility] DEPARTMENT OF Comment: PATHOLOGY AND [facility] PTT therapeutic range for unfractionated heparin is MEDICINE 61.0-112.0 seconds which corresponds to Anti-Xa 0.3-0.7 U/ml. Specimen Blood Performing Organization Address [facility] Phone Number [facility] OF PATHOLOGY AND [address] [place] [address] [place] [address] [facility] D-dimer (05/02/2018 10:03 AM CDT) D-dimer <0.27 0.00 - 0.40 ug/mL FEU [facility] DEPARTMENT OF Comment: PATHOLOGY AND [...] and malignancies. Specimen Blood Performing Organization Address [facility] Phone Number [facility] DEPARTMENT OF PATHOLOGY AND [id number] [place] [address] [place] [address] [facility] Creatine kinase, total (CPK) (05/02/2018 10:03 AM CDT) Creatine kinase 150 39 - 308 U/L [facility] DEPARTMENT OF PATHOLOGY AND [facility] MEDICINE Specimen Plasma specimen Performing Organization Address [facility] Phone Number [facility] DEPARTMENT OF PATHOLOGY AND [address] [place] [address] [facility] XR Chest 1 Vw Portable (05/02/2018 9:42 AM CDT) Narrative Performed At EXAMINATION:XR CHEST 1 VW PORTABLE [facility] CLINICAL HISTORY:chest pain COMPARISON:Determined 2014 FINDINGS: The heart is normal in size. The mediastinum is unremarkable. The lungs are clear. A right-sided ported central catheter is in place its tip projects the superior vena cava above the right atrium IMPRESSION: No acute finding is visualized [id number] Procedure Note Interface, Radiology Results Incoming - 05/02/2018 10:10 AM CDT EXAMINATION: XR CHEST 1 VW PORTABLE CLINICAL HISTORY: chest pain COMPARISON: Determined 2014 FINDINGS: The heart is normal in size. The mediastinum is unremarkable. The lungs are clear. A right-sided ported central catheter is in place its tip projects the superior vena cava above the right atrium IMPRESSION: No acute finding is visualized [id number] Performing Organization Address [facility] Phone Number [facility] [address] [place] [address] ECG ED Preliminary Interpretation - NOT AN ORDER (05/02/2018 9:27 AM CDT) Narrative Performed At Saeed Diana MD 05/02/20187:36 PM ECG ED Preliminary Interpretation - Not an Order Performed by: SAEED DIANA Authorized by: SAEED DIANA ECG reviewed by ED Physician in the absence of a [id number]/[id number] tank driver: yes (read at 0921) Interpretation: Interpretation: normal Rate: ECG rate:87 ECG rate assessment: normal Rhythm: Rhythm: sinus rhythm Ectopy: Ectopy: none QRS: QRS axis:Normal Conduction: Conduction: normal ST segments: ST segments:Normal T waves: T waves: normal Direct Tish' (MAURI) (12/14/2017 10:28 AM BUSINESS TEAM LEADER) Direct Tish POS [facility] DEPARTMENT OF PATHOLOGY Comment: AND GENOMIC MEDICINE testing performed at [facility], called kian in 3main with critical 12/14/17 at 2000 Performing Organization Address City/[facility] Phone Number [facility] DEPARTMENT OF PATHOLOGY AND [id number] [place] [address] [place] [address] GENOMIC MEDICINE Antibody identification (12/14/2017 10:28 AM BUSINESS TEAM LEADER) Antibody ID POS, Anti-EComment: ADDING [facility] DEPARTMENT OF PATHOLOGY AND [facility] GENOMIC MEDICINE Antibody ID POS, Anti-KellComment: ADDING [facility] DEPARTMENT OF PATHOLOGY AND [facility] GENOMIC MEDICINE Antibody ID POS, Bg AntibodyComment: [facility] DEPARTMENT OF PATHOLOGY AND ADDING [facility] GENOMIC MEDICINE Performing Organization Address [facility]/[employer] Phone Number [facility] DEPARTMENT OF PATHOLOGY AND [id number] [place] [address] [place] [address] GENOMIC MEDICINE Prepare RBC, 2 Units (12/14/2017 10:28 AM BUSINESS TEAM LEADER) Product name Red Blood Cells -1, [facility] DEPARTMENT OF Leukored PATHOLOGY AND GENOMIC MEDICINE Unit number [id number] [facility] DEPARTMENT OF PATHOLOGY AND GENOMIC MEDICINE Product code [id number] [facility] DEPARTMENT OF PATHOLOGY AND GENOMIC MEDICINE Dispense status Transfused [facility] DEPARTMENT OF PATHOLOGY AND GENOMIC MEDICINE Blood expiration date [facility] DEPARTMENT OF PATHOLOGY AND GENOMIC MEDICINE Blood type code 6200 [facility] DEPARTMENT OF PATHOLOGY AND GENOMIC MEDICINE Blood type A POSITIVE [facility] DEPARTMENT OF PATHOLOGY AND GENOMIC MEDICINE Product name Red Blood Cells -1, [facility] DEPARTMENT OF Leukored PATHOLOGY AND GENOMIC MEDICINE Unit number [id number] [facility] DEPARTMENT OF PATHOLOGY AND GENOMIC MEDICINE Product code [id number] [facility] DEPARTMENT OF PATHOLOGY AND GENOMIC MEDICINE Dispense status Transfused [facility] DEPARTMENT OF PATHOLOGY AND GENOMIC MEDICINE Blood expiration date [id number] [facility] DEPARTMENT OF PATHOLOGY AND GENOMIC MEDICINE Blood type code 6200 [facility] DEPARTMENT OF PATHOLOGY AND GENOMIC MEDICINE Blood type A POSITIVE [facility] DEPARTMENT OF PATHOLOGY AND GENOMIC MEDICINE Performing Organization Address [facility] Phone Number [facility] DEPARTMENT OF PATHOLOGY AND [address] [place] [address] [place] [address] GENOMIC MEDICINE Type and screen (12/14/2017 10:28 AM BUSINESS TEAM LEADER) ABO grouping AB [facility] DEPARTMENT OF PATHOLOGY AND GENOMIC MEDICINE Rh type POS [facility] DEPARTMENT OF PATHOLOGY AND GENOMIC MEDICINE Antibody screen POS [facility] DEPARTMENT OF PATHOLOGY AND GENOMIC MEDICINE Specimen Blood Performing Organization Address [facility] Phone Number [facility] DEPARTMENT OF PATHOLOGY AND [address] [place] [address] Vancomycin level, trough (12/14/2017 8:35 AM BUSINESS TEAM LEADER) Vancomycin, trough 6.1 (L) 10.0 - 20.0 ug/mL [facility] DEPARTMENT OF Comment: PATHOLOGY AND GENOMIC Therapeutic Ranges: MEDICINE Peak 30.0 - 40.0 ug/mL Nggvkt63.0 - 20.0 ug/mL Specimen Serum Performing Organization Address [facility] Phone Number [facility] DEPARTMENT [facility] AND [address] [place] [address] Angiogram Pe Chest (12/13/2017 2:28 PM BUSINESS TEAM LEADER) Narrative Performed At EXAMINATION: [facility] CT ANGIOGRAM PE CHEST CLINICAL HISTORY:47 years [...] 2. Mild scarring at the lung bases. [id number] Procedure Note [facility], Radiology Results Incoming - 12/13/2017 2:52 PM BUSINESS TEAM LEADER EXAMINATION: CT ANGIOGRAM PE CHEST CLINICAL HISTORY:47 [...] 2. Mild scarring at the lung bases. [id number] Performing Organization Address City/State/Zipcode Phone Number [facility] [address] [place] [address] Blood culture, aerobic & anaerobic (12/13/2017 10:40 AM BUSINESS TEAM LEADER) Blood culture isolate No growth after 5 days of incubation. [facility] DEPARTMENT OF Comment: PATHOLOGY AND GENOMIC Specimen Information MEDICINE Specimen Source: Blood Specimen Site: Line, port-a-cath Right Specimen Blood - Line, port-a-cath Performing Organization Address City/State/Zipcode Phone Number [facility] DEPARTMENT OF PATHOLOGY AND [address] [place] [address] [facility] MEDICINE Influenza antigen (12/13/2017 10:10 AM BUSINESS TEAM LEADER) Influenza antigen Negative for Influenza A/B antigen. [facility] DEPARTMENT OF Comment: PATHOLOGY AND GENOMIC Specimen Information MEDICINE Specimen Source: Nares Specimen Site: Not specified Specimen Nares - Not specified Performing Organization Address [facility] Phone Number [facility] DEPARTMENT PATHOLOGY AND [id number] [place] [address] [place] [address] [facility] MEDICINE Basic metabolic panel (12/13/2017 5:10 AM BUSINESS TEAM LEADER)Only the most recent of2 resultswithin the time period is included. Sodium 133 (L) 135 - 148 mEq/L [facility] DEPARTMENT OF PATHOLOGY AND GENOMIC MEDICINE Potassium 4.1 3.5 - 5.0 mEq/L [facility] DEPARTMENT OF PATHOLOGY AND GENOMIC MEDICINE Chloride 97 (L) 98 - 112 mEq/L [facility] DEPARTMENT OF PATHOLOGY AND GENOMIC MEDICINE CO2 24 24 - 31 mEq/L [facility] DEPARTMENT OF PATHOLOGY AND GENOMIC MEDICINE Anion gap 12 7 - 15 mEq/L [facility] DEPARTMENT OF Comment: PATHOLOGY AND GENOMIC Starting from January , anion gap calculation MEDICINE no longer incorporates potassium. Please note the change. BUN 20 6 - 20 mg/dL [facility] DEPARTMENT OF PATHOLOGY AND GENOMIC MEDICINE Creatinine 1.3 (H) 0.7 - 1.2 mg/dL [facility] DEPARTMENT OF PATHOLOGY AND GENOMIC MEDICINE Glucose 119 (H) 65 - 99 mg/dL [facility] DEPARTMENT OF PATHOLOGY AND GENOMIC MEDICINE Calcium 8.8 8.3 - 10.2 mg/dL [facility] DEPARTMENT OF PATHOLOGY AND GENOMIC MEDICINE Specimen Plasma specimen Performing Organization Address City/[facility] Phone Number [facility] DEPARTMENT OF PATHOLOGY AND [address] [place] [address] [place] [address] [facility] MEDICINE Lipid panel (12/12/2017 2:47 PM BUSINESS TEAM LEADER) Cholesterol 189 <200 mg/dL [facility] DEPARTMENT OF PATHOLOGY AND GENOMIC MEDICINE Triglycerides 65 <150 mg/dL [facility] DEPARTMENT OF PATHOLOGY AND GENOMIC MEDICINE HDL cholesterol 72 >40 mg/dL [facility] DEPARTMENT OF PATHOLOGY AND GENOMIC MEDICINE LDL cholesterol 116 (H)Comment: Result <100 mg/dL [facility] DEPARTMENT obtained by direct LDL PATHOLOGY AND GENOMIC measurement MEDICINE Lipid panel interpretation SeeBelow [facility] DEPARTMENT OF Comment: PATHOLOGY AND GENOMIC Total Cholesterol (mg/dL) MEDICINE <200 Desirable 847-546Ickzvcsysi-hlne >=240High Triglycerides (mg/dL) <150 Normal 999-189Ixaawucebe-gerc 200-499High >=500Very high HDL Cholesterol (mg/dL) <40Low (male) <40Low (female) LDL Cholesterol (mg/dL) <100 Optimal 100-129Near or above optimal 144-453Thhtslwkwu-tifn 160-189High >=190Very high Risk Catergories that modify [...] mg/dL) Specimen Plasma specimen Performing Organization Address City/State[facility] Phone Number [facility] DEPARTMENT OF PATHOLOGY AND [address] [place] [address] GENOMIC MEDICINE after 10/19/2017 Insurance Payer Benefit Plan / Group Subscriber ID Type Phone Address [employer] EX[employer]ANGE [employer]UE [employer] HMO EXCH xxxxxxxxxxxx Exchange (Work) [phone] Advance Directives Patient has advance care planning documents, and code status on file. For more information, please contact:Owen Ruggiero[address] [place], [place] [address] [place] [address] Code Status Date Activated Date Inactivated Comments Full Code 09/27/2018 3:37 PM 09/27/2018 11:00 PM Code Status decision reached by: Patient Full Code 11/26/2017 10:45 PM 11/28/2017 1:56 AM Code Status decision reached by: Patient
--- OUTSIDE RECORDS SUMMARY | 2018-10-20 11:04 | XMS REPORT | Clinical Summary ---
:1970 Author Organization [facility] Address [address] [place] [address] Care Team Providers Name Role Phone Blanco [...] Encounters Date Type Specialty Care Team Description 09/26/2018 - Hospital Encounter General Internal Yaw Sanderson MD 09/27/2018 Medicine Wiliam Sanderson MD 09/02/2018 - Emergency General Internal Aleks Robbins [...] - Hospital Encounter General Internal Gilles Flores Other acute pulmonary embolism without acute cor pulmonale (HCC) (Primary Dx); 04/26/2018 Medicine III DO Chest pain, unspecified type; Solipuram, Primo Tachycardia; Toñito Garza MD Factor 5 Leiden mutation, heterozygous (HCC); SOB (shortness of breath); Other chronic pulmonary embolism without acute cor pulmonale (HCC) 01/31/2018 - Hospital Encounter General Internal Winston Daniels 02/01/2018 Medicine MD Kin Pritchard Salman Siraj, MD 01/31/2018 Orders Only Yoseph Ortega, ADRIANA 01/24/2018 Orders Only General Internal Medicine 01/22/2018 - Hospital Encounter General Internal Megan Carrington 01/25/2018 MD Dominique Tomlinson, MD Jeremiah Prieto, MD Kin Slater, Wiliam Roth MD after 10/19/2017 Family History Medical History Relation [...] Vital Sign Reading Time Taken Blood Pressure 110/74 09/27/2018 5:57 AM INTERIOR DECORATOR P[employer]ERHANGING Pulse 71 09/27/2018 5:57 AM INTERIOR DECORATOR P[employer]ERHANGING Temperature 35.7 C (96.2 F) 09/27/2018 5:57 AM INTERIOR DECORATOR PAPERHANGING Respiratory Rate 18 09/27/2018 5:57 AM INTERIOR DECORATOR PAPERHANGING Oxygen Saturation 99% 09/27/2018 5:57 AM INTERIOR DECORATOR PAPERHANGING Inhaled Oxygen Concentration - - Weight 90.7 kg (200 lb) 09/27/2018 5:57 AM INTERIOR DECORATOR PAPERHANGING Height 170.2 cm (5' 7") 09/27/2018 5:57 AM INTERIOR DECORATOR P[employer]ERHANGING Body Mass Index 31.32 09/27/2018 5:57 AM INTERIOR DECORATOR PAPERHANGING Plan of Treatment Health Maintenance Due Date Last Done Comments INFLUENZA VACCINE 07/11/2018 Procedures Procedure Name Priority Date/Time Associated Comments Diagnosis RHYTHM STRIP - SCAN 10/07/2018 9:00 AM INTERIOR DECORATOR P[employer]ERHANGING REPORT OF PROCEDURE - 10/07/2018 9:00 ENDOSCOPY SCAN AM [employer] CBC W/PLT COUNT & AUTO Routine 09/27/2018 5:59 Results for this DIFFERENTIAL AM [employer] procedure are in the results section. TROPONIN I Routine 09/27/2018 5:59 Results for this AM [employer] procedure are in the results section. CBC W/PLT COUNT & AUTO Routine 09/27/2018 5:59 Results for this DIFFERENTIAL AM [employer] procedure are in the results section. PHOSPHORUS Routine 09/27/2018 5:59 Results for this AM [employer] procedure are in the results section. MAGNESIUM Routine 09/27/2018 5:59 Results for this AM [employer] procedure are in the results section. LIPID PANEL Routine 09/27/2018 5:59 Results for this AM [employer] procedure are in the results section. PT/APTT Routine 09/27/2018 5:59 Results for this AM [employer] procedure are in the results section. BASIC METABOLIC PANEL (7) Routine 09/27/2018 5:59 Results for this AM [employer] procedure are in the results section. REPORT OF PROCEDURE - 09/07/2018 9:22 ENDOSCOPY SCAN AM INTERIOR DECORATOR PAPERHANGING RHYTHM STRIP - SCAN 09/07/2018 9:22 AM INTERIOR DECORATOR PAPERHANGING (MANUAL DIFFERENTIAL) Routine 09/03/2018 8:16 Results for this AM [employer]ATOR [employer] procedure are in the results section. CBC W/PLT COUNT & AUTO Routine 09/03/2018 8:16 Results for this DIFFERENTIAL AM [employer] procedure are in the results section. CBC W/PLT COUNT & AUTO Routine 09/03/2018 8:16 Results for this DIFFERENTIAL AM [employer] procedure are in the results section. CBC W/PLT COUNT & AUTO STAT 09/03/2018 3:33 Results for this DIFFERENTIAL AM [employer] procedure are in the results section. CBC W/PLT COUNT & AUTO STAT 09/03/2018 3:33 Results for this DIFFERENTIAL AM [employer] procedure are in the results section. HEMOGLOBIN A1C STAT 09/03/2018 3:33 Results for this AM [employer] procedure are in the results section. LIPID PANEL STAT 09/03/2018 3:33 Results for this AM [employer] procedure are in the results section. BASIC METABOLIC PANEL (7) STAT 09/03/2018 3:33 Results for this AM [employer] procedure are in the results section. TROPONIN I STAT 09/03/2018 3:33 Results for this AM [employer] procedure are in the results section. TROPONIN I STAT 09/02/2018 2:50 Results for this PM [employer] procedure are in the results section. CT CHEST PE TEST DESIGN STAT 09/02/2018 7:51 Results for this AM [employer] procedure are in the results section. XR CHEST 1 VIEW STAT 09/02/2018 6:54 Results for this PORTABLE/BEDSIDE AM [employer] procedure are in the results section. CBC W/PLT COUNT & AUTO STAT 09/02/2018 6:39 Results for this DIFFERENTIAL AM [employer] procedure are in the results section. B-TYPE NATRIURETIC FACTOR STAT 09/02/2018 6:39 Results for this (BNP) AM [employer] procedure are in the results section. PT/APTT STAT 09/02/2018 6:39 Results for this AM [employer] procedure are in the results section. CBC W/PLT COUNT & AUTO STAT 09/02/2018 6:39 Results for this DIFFERENTIAL AM [employer] procedure are in the results section. TROPONIN I STAT 09/02/2018 6:39 Results for this AM [employer] procedure are in the results section. MAGNESIUM STAT 09/02/2018 6:39 Results for this AM [employer] procedure are in the results section. BASIC METABOLIC PANEL (7) STAT 09/02/2018 6:39 Results for this AM [employer] procedure are in the results section. ED ECG INTERPRETATION Routine 09/02/2018 6:33 Results for this AM [employer] procedure are in the results section. REPORT [...] 366 ms QTC Calculation(Bazett) 430 ms P [place] 44 degrees R [place] 29 degrees T [place] 12 degrees Sinus rhythm with occasional Premature ventricular complexes Otherwise normal ECG TROPONIN I Routine 01/22/2018 1:16 PM CDT CREATINE KINASE (CK), Routine 01/22/2018 1:16 PM CDT Results for this procedure TOTAL AND MB are in the results section. after 10/19/2017 Results RHYTHM STRIP - SCAN (10/07/2018 9:00 AM INTERIOR DECORATOR PAPERHANGING)Only the most recent of5 resultswithin the time period is included. Narrative Performed At EKG-SCANNED (10/07/2018 9:00 AM INTERIOR DECORATOR PAPERHANGING)Only the most recent of7 resultswithin the time period is included. Narrative Performed At PT/aPTT (09/27/2018 5:59 AM INTERIOR DECORATOR PAPERHANGING)Only the most recent of5 resultswithin the time period is included. Protime 10.3 9.3 - 12.0 sec [facility] INR 0.9 <=5.9 [facility] PTT 21.9 (L) 23.0 - 35.0 sec [facility] Specimen Blood Narrative Performed At RECOMMENDED COUMADIN/WARFARIN INR THERAPY RANGES [facility] STANDARD DOSE: 2.0 - 3.0 Includes: PROPHYLAXIS for venous thrombosis, systemic embolization; TREATMENT for venous thrombosis and/or pulmonary embolus. HIGH RISK: Target INR is 2.5-3.5 for patients with mechanical heart valves. Final Information (Auto Output) Final Information (Auto Output) Final Information (Auto Output) Performing Organization Address City/State/Zipcode Phone Number [facility] [address] [place] [address] CBC with platelet count + automated diff (09/27/2018 5:59 AM INTERIOR DECORATOR PAPERHANGING)Only the most recent of13 resultswithin the time period is included. WBC 5.8 4.0 - 10.0 K/L [facility] RBC 4.06 (L) 4.20 - 5.80 M/L [facility] Hemoglobin 8.8 (L) 13.0 - 16.8 GM/DL [facility] Hematocrit 32.4 (L) 36.0 - 50.0 % [facility] MCV 79.8 (L) 82.0 - 99.0 fL [facility] MCH 21.7 (L) 27.0 - 33.0 pg [facility] MCHC 27.2 (L) 32.0 - 36.0 GM/DL [facility] RDW 18.9 (H) 12.0 - 15.0 % [facility] Platelets 340 150 - 430 K/CU MM [facility] MPV 9.3 6.0 - 11.5 fL [facility] nRBC 0 0 - 0 /100 WBC [facility] % Neutros 36 % [facility] % Lymphs 47 % [facility] % Monos 13 % [facility] % Eos 3 % [facility] % Baso 1 % [facility] # Neutros 2.09 1.80 - 8.00 K/L [facility] # Lymphs 2.72 1.48 - 4.50 K/L [facility] # Monos 0.75 0.00 - 1.30 K/L [facility] # Eos 0.16 0.00 - 0.50 K/L [facility] # Baso 0.03 0.00 - 0.20 K/L [facility] Immature Granulocytes-Relative 0 0 - 0 % [facility] Specimen Blood Performing Organization Address [facility] Phone Number [facility] [place] [address] Troponin I (09/27/2018 5:59 AM INTERIOR DECORATOR PAPERHANGING)Only the most recent of12 resultswithin the time period is included. Troponin I <0.03 0.00 - 0.15 ng/mL [facility] Specimen Blood Narrative Performed At Troponin I (TnI) levels must be interpreted in the context of [facility] the presenting symptoms and the clinical findings. Elevated TnI levels indicate myocardial damage, but are not specific for ischemic heart disease. Elevated TnI levels are seen in patients with other cardiac conditions (including myocarditis and congestive heart failure), and slight TnI elevations occur in patients with other conditions, including sepsis, renal failure, acidosis, acute neurological disease, and persistent tachyarrhythmia. Performing Organization Address [facility] Phone Number [facility] [address] [place] [address] [phone] Phosphorus (09/27/2018 5:59 AM INTERIOR DECORATOR PAPERHANGING) Phosphorus 3.1 2.5 - 4.5 mg/dL [facility] Specimen Blood Performing Organization Address [facility] Phone Number [facility] [address] [place] [address] Magnesium (09/27/2018 5:59 AM INTERIOR DECORATOR PAPERHANGING)Only the most recent of3 resultswithin the time period is included. Magnesium 2.3 1.5 - 3.0 mg/dL [facility] Specimen Blood Performing Organization Address [facility] Phone Number [facility] [address] [place] [phone] Lipid panel (09/27/2018 5:59 AM INTERIOR DECORATOR PAPERHANGING)Only the most recent of3 resultswithin the time period is included. Triglycerides 93 mg/dL [facility] Cholesterol 235 mg/dL [facility] HDL 44 mg/dL [facility] LDL Calculated 172 mg/dL [facility] Specimen Blood Narrative Performed At Triglyceride Reference Range: [facility] Low Risk <150 [id number] High Risk 200-499 Very High Risk>=500 Cholesterol Reference Range: Low Risk <200 [id number] High Risk>240 HDL Cholesterol Reference Range: Low Risk >=60 High Risk <40 LDL Cholesterol Reference Range: Optimal<100 Near [id number] [id number] [id number] Very High >=190 Performing Organization Address [facility] Phone Number [facility] [address] [place] [address] [phone] Basic metabolic panel (09/27/2018 5:59 AM INTERIOR DECORATOR PAPERHANGING)Only the most recent of11 resultswithin the time period is included. Sodium 139 135 - 148 meq/L [facility] Potassium 3.9 3.6 - 5.5 meq/L [facility] Chloride 107 (H) 98 - 106 meq/L [facility] CO2 21 20 - 29 meq/L [facility] BUN 17 10 - 26 mg/dL [facility] Creatinine 0.89 0.50 - 1.20 mg/dL [facility] Glucose 89 70 - 110 mg/dL [facility] Calcium 9.3 8.5 - 10.5 mg/dL [facility] EGFR 92Comment: ESTIMATED GFR IS NOT mL/min/1.73 sq m [facility] ACCURATE CREATININE CLEARANCE IN PREDICTING GLOMERULAR FILTRATION RATE. ESTIMATED GFR IS NOT APPLICABLE FOR DIALYSIS PATIENTS. Specimen Blood Performing Organization Address [facility] Phone Number [facility] [address] [place] [address] [phone] Manual Differential (09/03/2018 8:16 AM INTERIOR DECORATOR PAPERHANGING)Only the most recent of9 resultswithin the time period is included. % Neutros (manual) 39 % [facility] % Lymphs (manual) 44 % [facility] % Monos (manual) 13 % [facility] % Eos (manual) 4 % [facility] # Neutros (manual) 1.91 1.80 - 8.00 K/L [facility] # Lymphs (manual) 2.16 1.48 - 4.50 K/L [facility] # Monos (manual) 0.64 0.00 - 1.30 K/L [facility] # Eos (manual) 0.20 0.00 - 0.50 K/L [facility] Total Counted 100 [facility] WBC Morphology Normal [facility] RBC Morphology Normal [facility] Large Platelet Present [facility] Specimen Blood - Central Venous Line Performing Organization Address City/State/Zipcode Phone Number [facility] [address] [place] [address] Hemoglobin A1c (09/03/2018 3:33 AM INTERIOR DECORATOR PAPERHANGING) Hemoglobin A1C 5.7 4.3 - 6.1 % [facility] Specimen Blood Performing Organization Address City/[facility]/Zipcode Phone Number [facility] [address] [place] [address] CT chest PE test design (09/02/2018 7:51 AM INTERIOR DECORATOR PAPERHANGING)Only the most recent of4 resultswithin the time period is included. Narrative Performed At FINAL REPORT [employer] INDICATION: 48-year-old male with chest pain. Evaluate [...] MD Report Verified Date/Time:09/02/2018 08:14:32 Reading Location: [facility] Diagnostic Imaging Reading Room - [place] [id number] Procedure Note Interface, External Ris In - 09/02/2018 8:16 AM INTERIOR DECORATOR PAPERHANGING FINAL REPORT INDICATION: 48-year-old male with chest [...] Report Verified Date/Time: 09/02/2018 08:14:32 Reading Location: [facility] Diagnostic Imaging Reading Room - [facility] F1 1120 Performing Organization Address City/State/Zipcode Phone Number [employer] XR chest 1 view portable / bedside (09/02/2018 6:54 AM INTERIOR DECORATOR PAPERHANGING)Only the most recent of2 resultswithin the time period is included. Narrative Performed At FINAL REPORT [employer] Chest one view. Clinical history: CHEST PAIN [...] MD Report Verified Date/Time:09/02/2018 07:10:11 Reading Location: [address] Body Reading Room Procedure Note Interface, External Ris In - 09/02/2018 7:12 AM INTERIOR DECORATOR PAPERHANGING FINAL REPORT Chest one view. Clinical history: [...] Report Verified Date/Time: 09/02/2018 07:10:11 Reading Location: [facility] C0Y CT Body Reading Room Performing Organization Address City/State/Zipcode Phone Number [facility] B-type Natriuretic Factor (BNP) (09/02/2018 6:39 AM INTERIOR DECORATOR PAPERHANGING)Only the most recent of4 resultswithin the time period is included. BNP 150 (H) 0 - 100 pg/mL [facility] Specimen Blood - Line, Venous Performing Organization Address City/State/Zipcode Phone Number [facility] [address] [place], [place] [address] ECG/EKG Interpretation (09/02/2018 6:33 AM INTERIOR DECORATOR PAPERHANGING)Only the most recent of3 resultswithin the time period is included. Narrative Performed At Aleks Robbins DO 09/02/20188:52 AM ECG/EKG Interpretation Date/Time: 09/02/2018 6:28 AM Performed by: Aleks Robbins DO Authorized by: Aleks Robbins DO The ECG was interpreted by ED physician. The ECG is interpreted as sinus tachycardia. Rate is tachycardic. Heart rate is [address] segments normal. [place] is normal. Clinical Impression: non-specific ECGECG reviewed and does not meet STEMI criteria. Patient tolerance: Patient tolerated the procedure well with no immediate complications Lactic acid, venous, whole blood (05/24/2018 2:18 PM CDT)Only the most recent of2 resultswithin the time period is included. Lactate, Venous 1.3 0.5 - 2.2 mmol/L [facility] Specimen Blood Narrative Performed At [facility] Effective 02/12/2016: Units/Reference Range Change New: 0.5-2.2 mmol/LPrevious: 5-18 mg/dL Performing Organization Address [facility] Phone Number [address] [address] Urinalysis w/Microscopic + Reflex to Culture (05/24/2018 1:51 PM CDT) Color, UA Yellow [facility] Clarity, UA Clear [facility] Specific [place], UA 1.010 1.001 - 1.035 [facility] pH, UA 7.0 5.0 - 8.0 [facility] Protein, UA Negative Negative [facility] Glucose, UA Negative Negative [facility] Ketones, UA Negative Negative [facility] Bilirubin, UA Negative Negative [facility] Blood, UA Negative Negative [facility] Nitrite, UA Negative Negative [facility] Leukocytes, UA Negative Negative [facility] Urobilinogen, UA 0.2 0.2 - 1.0 mg/dL [facility] Bacteria, UA None Seen [facility] RBC, UA None Seen /HPF [facility] WBC, UA <5 /HPF [facility] SQUAMOUS EPITHELIAL None Seen /HPF [facility] Specimen Source [facility] Specimen Urine - Urine, Clean Catch Performing Organization Address [facility] Phone Number [place] [id number] [place] [address] [phone] Blood culture (05/24/2018 12:50 PM CDT)Only the most recent of2 resultswithin the time period is included. Result No growth in 5 days [facility] Specimen Blood - Line, Venous Performing Organization Address [facility] Phone Number [facility] [address] [place] [phone] Creatine Kinase (CK), Total and MB (not available at [facility] [place]) (2017 9:55 AM CDT)Only the most recent of3 resultswithin the time period is included. Total CK 76 40 - 250 U/L [facility] CK-MB 1.2 0.0 - 4.9 ng/mL [facility] MB Relative Index 1.6 % [facility] Specimen Blood - Line, Venous Narrative Performed At CK-MB Reference Range: [facility] <5 Normal 5-10 Borderline >10Abnormal Performing Organization Address [facility] Phone Number [address] [address] [phone] Hepatic function panel (05/24/2018 9:55 AM CDT) Protein, Total 7.0 6.0 - 8.5 gm/dL [facility] Albumin 4.3 3.5 - 5.0 g/dL [facility] Total Bilirubin 0.4 0.1 - 1.2 mg/dL [facility] Bilirubin, Direct 0.2 0.0 - 0.4 mg/dL [facility] Alkaline Phosphatase 70 30 - 115 U/L [facility] AST 18 5 - 40 U/L [facility] ALT 13 5 - 50 U/L [facility] Specimen Blood Performing Organization Address [facility] Phone Number [address] [address] Prothrombin time/INR (04/26/2018 5:08 AM CDT)Only the most recent of8 resultswithin the time period is included. Protime 21.9 (H) 9.3 - 12.0 sec [facility] INR 2.1 <=5.9 [facility] Specimen Blood Narrative Performed At [facility] RECOMMENDED COUMADIN/WARFARIN INR THERAPY RANGES STANDARD DOSE: 2.0 - 3.0 Includes: PROPHYLAXIS for venous thrombosis, systemic embolization; TREATMENT for venous thrombosis and/or pulmonary embolus. HIGH RISK: Target INR is 2.5-3.5 for patients with mechanical heart valves. Final Information (Auto Output) Final Information (Auto Output) Performing Organization Address City/[facility] Phone Number [facility] [address] [place] [address] [phone] aPTT (04/26/2018 12:43 AM CDT)Only the most recent of18 resultswithin the time period is included. PTT >150.0 (HH) 23.0 - 35.0 sec [facility] Specimen Blood Narrative Performed At Final Information (Auto Output) [facility] Performing Organization Address [facility] Number [facility] [address] [place], [place] [address] TRANSFUSION SERVICE REPORT - SCAN (04/21/2018 6:05 PM CDT)Only the most recent of3 resultswithin the time period is included. Narrative Performed At Prepare Leuko-Red RBC (04/20/2018 11:54 PM CDT) Unit ABO A Pos [facility] [place] UNIT NUMBER [id number] [facility] [place] Status TRANSFUSED [facility] [place] Blood Bank Product RED BLOOD CELLS [facility] [place] PRODUCT CODE [id number] [place] CROSSMATCH COMPATIBLE [facility] [place] Specimen Other Performing Organization Address [facility] Phone Number [facility] [place] CBC (Hemogram only) (04/20/2018 9:16 PM CDT)Only the most recent of2 resultswithin the time period is included. WBC 7.0 4.0 - 10.0 K/L [facility] RBC 3.89 (L) 4.20 - 5.80 M/L [facility] Hemoglobin 8.8 (L) 13.0 - 16.8 GM/DL [facility] Hematocrit 27.6 (L) 40.0 - 50.0 % [facility] MCV 70.8 (L) 82.0 - 98.0 fL [facility] MCH 22.6 (L) 27.0 - 33.0 pg [facility] MCHC 32.0 32.0 - 36.0 GM/DL [facility] RDW 20.0 (H) 10.3 - 14.2 % [facility] Platelets 360 150 - 430 K/CU MM [facility] MPV 7.4 6.5 - 10.5 fL [facility] Specimen Blood Performing Organization Address City/[facility] Phone Number [facility] [address] [place] [address] [phone] D-dimer (04/20/2018 7:53 AM CDT) D-Dimer, Quant 0.93 (H) <0.50 mg/L [facility] Specimen Blood Narrative Performed At [facility] REGARDING D-DIMER RESULTS: The 98% NPV (Negative Predictive Value) for DVT/PE exclusion is 0.50 mg/L FEU as suggested by the casing cooker and as approved by the FDA. Final Information (Auto Output) Performing Organization Address [facility] Phone Number [facility] [address] [place], [place] [phone] Antibody identification (04/19/2018 5:19 PM CDT) ANTIBODY ID (NIMO) Anti-EComment: Testing performed by: [facility], [address] [place] [id number] Antibody Consult SIGNED OUTComment: Anti E causes RBC [place] injury, transfuse E negative RBCs.Electronic Signature: Ayaz Feliz M.D. Performing Organization Address [facility] Phone Number [employer] [place] [employer] Leuko-Red RBC (04/19/2018 5:21 AM CDT)Only the most recent of2 resultswithin the time period is included.PERIPHERAL VASCULAR REPORT - SCAN (06/2018 1:00 PM CDT) Narrative Performed At Venous doppler legs bilateral (04/18/2018 11:50 AM CDT) Narrative Performed At FINAL REPORT [facility] History: Lower extremity swelling Comparison: None Discussion: [...] MD Report Verified Date/Time:04/18/2018 12:31:58 Reading Location: [facility] Radiology Reading Room Procedure Note Interface, [...] Report Verified Date/Time: 04/18/2018 12:31:58 Reading Location: [facility] Radiology Reading Room Performing Organization Address [facility] Phone Number [facility] Prothrombin Gene Mutation (04/18/2018 10:51 AM CDT) Prothrombin/Factor II Negative for the [id number] [facility] (Prothrombin/Factor II) [facility] mutation. Pathologist: Annmarie Thomas MD [facility] (electronic signature) [facility] Specimen Blood Narrative Performed At [facility] This test is a genotyping assay which evaluates the DNA sequence at position 66634 of the prothrombin (Factor II) gene. A [...] Improvement Amendments of 1988. Performing Organization Address [facility] Phone Number [facility] [address] [place] [address] [phone] CENTER Vitamin B12 and Folate (04/18/2018 10:51 AM CDT) Vitamin B12 497 213 - 816 pg/mL [facility] Folate 6.5 (L) >=7.0 ng/mL [facility] Specimen Blood Performing Organization Address [facility] Phone Number [facility] [address] [place] [address] [place] Phosphatidylserine Abs (IgG, IgM) (04/18/2018 10:51 AM CDT) [facility].Serine Ab IgG <10 U/mL [facility] Comment: [...] more information on this test, go to: http://education.Hortau/faq/RJT952 Specimen Blood Narrative Performed At Performing Lab [facility] [place] [address] [place] [address] Rodney Bolivar MD, PhD, BRIANNA Performing Organization Address [facility] Phone Number [facility] [place] [address] INCORPORATED [address] [facility] Iron, TIBC, % sat. 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 Laboratory testing supervised and results monitored by Jovany Lemons MD, A, DABG, CGS. Reduced methylenetetrahydrofolate reductase (MTHFR) enzyme activity is a genetic risk factor for hyperhomocysteinemia, especially when present with low serum folate levels. Two common variants in the MTHFR gene result in reduced enzyme activity. The "thermolabile" variant C677T [NM 779477.3: c.665C>T (p.A222V)] and Q9301W [c. 1286A>C (p.E429A)] occur frequently in the [...] uncertain and is not recommended by The [place] [employer] (ACMG) or the [place] [employer] of [employer]stetric[employer] and Gynecologists (ACOG) in [...] and prothrombin gene mutations. The C677T and S3792D variants are detected by amplification of the [...] Health care providers, please contact your local [employer] genetic counselor or call [employer] ([phone]) for assistance with interpretation of these results. This test was developed and its analytical performance characteristics have been determined by [facility] [place]. It has not been cleared or approved by FDA. This assay has been validated pursuant to the CLIA regulations and is used for clinical purposes. Specimen Blood Narrative Performed At Performing Lab [facility] [place] [address] [place] [address] Rodney Bolivar MD, PhD, BRIANNA Performing Organization Address [facility] Phone [place] [address] INCORPORATED [address] [facility] Protein S antigen, total (04/18/2018 10:51 AM CDT) Protein S, Total Antigen 90 70 - 140 % normal [facility] Specimen Blood Narrative Performed At Performing Lab [facility] [address] [place] [address] Rodney Bolivar MD, PhD, BRIANNA Performing Organization Address [facility] Phone [place] [address] INCORPORATED [address] [facility] Protein C antigen, total (04/18/2018 10:51 AM CDT) Protein C Antigen 100 70 - 140 % normal [facility] Comment: INCORPORATED Decreased levels of Protein C antigen may be found in congenital deficiency, treatment with oral anticoagulants, liver disease, D.I.C. and post surgery. Specimen Blood Narrative Performed At Performing Lab [facility] [address] [place] [address] Rodney Bolivar MD, PhD, BRIANNA Performing Organization Address City/[facility] Phone Number [facility], [place] [address] INCORPORATED [address] [facility] Cardiolipin Antibodies, IgG and IgM (04/18/2018 10:51 AM CDT) Anticardiolipin IgG <1.6 <20.0 GPL [facility] Anticardiolipin IgM 0.5 <20.0 MPL [facility] Specimen Blood Narrative Performed At Anticardiolipin IgG Result Interpretation: [facility] <20.0 GPL Normal >/=20.0 GPL Positive Anticardiolipin IgM Result Interpretation: <20.0 MPL Normal >/=20.0 MPL Positive Performing Organization Address City/[facility]/Zipcode Phone Number [facility] [address] [place] [address] CENTER Factor 5 Leiden PCR (thrombotic risk) (04/18/2018 10:51 AM CDT) Factor V Leiden Negative for the R506Q (Factor [facility] V Leiden) mutation [facility] Pathologist: Annmarie Thomas MD [facility] (electronic signature) [facility] Specimen Blood Narrative Performed At This test is a genotyping assay which [facility] evaluates the DNA sequence corresponding [...] and its performance characteristics determined by the [facility] Pathology Department, Section of Molecular Pathology. It has not been cleared or approved by the U.S. Food and Drug Administration (FDA), since FDA approval is not required for clinical use of the test. Validation was done as required by the Clinical Laboratory Improvement Amendments of 1988. Performing Organization Address City/State/Zipcode Phone Number [address] [phone] CENTER Antithrombin III (04/18/2018 10:51 AM CDT) Antithrombin III 81.0 80.0 - 120.0 % [facility] Specimen Blood Performing Organization Address City/[facility]/Zipcode Phone Number [address] [address] [phone] CENTER Reticulocyte count (04/18/2018 10:51 AM CDT) % Retic 1.5 0.4 - 2.9 % [facility] Specimen Blood Performing Organization Address [facility] Phone Number [facility] [address] [place] [address] [phone] Type and screen (04/18/2018 10:51 AM CDT) Ab Scrn POSITIVE [facility] [employer] AB [facility] Rh Factor POS [facility] Specimen Blood Performing Organization Address [facility] Phone Number [address] [phone] [facility] Protein electrophoresis, serum (04/18/2018 10:51 AM CDT) Albumin Fraction 3.5 3.5 - 5.5 g/dL [facility] Alpha 1 Fraction 0.2 0.2 - 0.4 g/dL [facility] Alpha 2 Fraction 0.6 0.5 - 0.9 g/dL [facility] Beta Fraction 1.1 0.6 - 1.1 g/dL [facility] Gamma Globulin Fraction 0.8 0.7 - 1.7 g/dL [facility] Interpretation All fractions present [facility] in expected [facility] distribution. No monoclonal bands detected. Pathologist: Annmarie Thomas MD [facility] (electronic signature) [facility] Protein, Total 6.3 6.0 - 8.3 gm/dL [facility] Specimen Blood Performing Organization Address City/[facility]/Zipcode Phone Number [address] [address] CENTER Lactate dehydrogenase (LDH) (04/18/2018 10:51 AM CDT) LDH 174 107 - 206 U/L [facility] Specimen Blood Performing Organization Address [facility] Phone Number [facility] [address] [place] [phone] Homocysteine (04/18/2018 10:51 AM CDT) Homocysteine 6.1 5.1 - 15.4 umol/L [facility] Specimen Blood Performing Organization Address [facility]/Zipcode Phone Number [address] [address] CENTER Ferritin (04/18/2018 10:51 AM CDT) Ferritin 8 (L) 22 - 322 ng/mL [facility] Specimen Blood Performing Organization Address [facility] Phone Number [facility] [address] [place] [address] [phone] TSH/Free T4 If Indicated (04/17/2018 9:06 PM CDT) TSH 0.71 0.35 - 5.50 uIU/mL [facility] Specimen Blood Performing Organization Address [facility]/Zipcode Phone Number [facility] [address] [place] [phone] after 10/19/2017 Insurance Payer Benefit Plan / Subscriber ID Type Phone Address Group BLUE CROSS/BLUE BCBS ADV HMO xxxxxxxxxxxx [phone] [address] [place] [address] (Work) [id number] Advance Directives For more information, please contact:[address] [phone] Code Status Date Activated Date Inactivated Comments Full Code 09/27/2018 1:39 AM This code status was determined by: Patient Full Code 09/02/2018 11:03 AM 09/26/2018 11:48 PM This code status was determined by: Patient Full Code 04/18/2018 2:43 AM 04/26/2018 12:57 PM This code status was determined by: Patient Full Code 09/19/2016 12:04 AM 09/24/2016 2:00 PM This code status was determined by: Patient Full Code 10/15/2015 1:16 AM 10/17/2015 8:54 PM This code status was determined by: Patient
--- OUTSIDE RECORDS SUMMARY | 2018-10-20 11:04 | XMS REPORT | Continuity of Care Document ---
[...] MYELOPATHY 014 Neuro LUMBAR Active Condition [place]20[place]2014 [facility] 014 Neuro Low back Active Problem 10/14/2017 Data [facility] pain<sup>1</sup> 014 migrated Medical from [facility], on 06/04/15. [facility] [place] Lumbar Active Problem 10/14/2017 Data [facility] radiculopathy<sup>2 014 migrated Medical </sup> from [facility], on 06/04/15. [facility] [place] Spinal stenosis of Active Problem 10/14/2017 Data [facility] lumbar 014 migrated Medical region<sup>3</sup> from [facility], on 06/04/15. [facility] [place] Chest pain Active Problem 10/14/[address], [place] [facility] Pain / sensation Active Problem 10/14/2017 [facility] finding(<span 010 Medical ID="[id number]">[facility] ble</span>) [place] [facility] Anxiety Active Problem 10/14/[address],[facility] Hypertension Active Problem 10/14/[address],[facility] [place] Sinus tachycardia Active Problem 10/14/[address],[facility] [place] Back pain Active Problem 10/14/2017 [facility] [place] Depression Resolved Problem 10/14/2017 [facility] Depression (<span Active Problem 10/14/2017 [facility] ID="[id number]">Co Medical nfirmed</span>) [place],[facility] [place] 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 [facility] Hyperlipidemia Active Problem 10/14/2017 [facility] [place] Pain Active Problem 10/14/2017 [facility] Pericarditis Resolved Problem 10/14/2017 [facility] Pulmonary embolism Resolved Problem 10/14/2017 [facility] SVT - Resolved Problem 10/14/2017 [facility] Supraventricular Medical tachycardia Center,[facility] CHEST PAIN, Active [facility] [place] Medications Medication Details Route Status Patient Ordering Order Source Instructions Provider Date Docusate 100 mg, 1 Inactive cap, Route: 018 [place] PO, Drug form: CAP, BID, Dosing Weight 81.818, kg, Start date: 10/11/17 17:00:00 WIRE TEMPERER, Duration: 30 day, Stop date: 11/10/17 9:00:00 CSTNotes: (Same as: Colace) (Do Not Crush) Ondansetron 4 mg, 2 mL, Inactive Route: IVP, 018 [place] Drug form: INJ, Q6H, Dosing Weight 81.818, kg, PRN Nausea & Vomiting, Start date: 10/11/17 15:19:00 WIRE TEMPERER, Duration: 30 day, Stop date: 11/10/17 15:18:00 CSTNotes: (Same as: Zofran) MEDICATION WASTE Product Size: 4 mg Product Wasted: ___ mg enoxaparin 80 80 mg, Active [place] mg/0.8 mL SUB-Q, Q12H, [facility] Medical subcutaneous 0 Refill(s) Center solution simvastatin 20 20 mg=1 tab, Active [facility] mg oral tablet PO, Bedtime, [facility] Medical # 30 tab, 1 Center Refill(s) clopidogrel 75 75 mg=1 tab, Active [facility] MG Oral Tablet PO, Daily, # 017 Medical [Plavix] 30 tab, 0 Center Refill(s) Acetaminophen 1 tab, PO, Active [place] 325 MG / Q4H, PRN for [facility] Medical Hydrocodone pain, # 24 Center Bitartrate 10 tab, 0 MG Oral Tablet Refill(s) [Bruce 10/325] heparin 500 mL, Inactive [facility] additive 25,000 Rate: 26.06 [facility] Medical unit [18 ml/hr, Center unit/kg/hr] + Infuse over: Premix Diluent 19.2 hr, Dextrose 5% 500 Route: IVPB, mL Dosing Weight 72.39 kg, Total Volume: 500 mL, Start date: 11/20/16 5:23:00 WIRE TEMPERER, Duration: 30 day, Stop date: 12/20/16 5:22:00 CDT Heparin 40 Pharmacy To Inactive [facility] unit/kg Bolus Manage, [facility] Medical (Heparin Dosing Route: IVP, Center Weight) PRN, Drug form: INJ, PRN, Heparin Protocol, Start date: 11/20/16 5:23:00 WIRE TEMPERER Stop date: 12/20/16 6:22:00 CDT, 30 day Heparin 80 Pharmacy To Inactive [facility] unit/kg Bolus Manage, [facility] Medical (Heparin Dosing Route: IVP, Center Weight) PRN, Drug form: INJ, PRN, Heparin Protocol, Start date: 11/20/16 5:23:00 WIRE TEMPERER Stop date: 12/20/16 6:22:00 CDT, 30 day Dilaudid 1 mg, 0.5 Inactive [facility] mL, Route: [facility] Medical IVP, Drug Center form: INJ, ONCE, Dosing Weight 81.818, kg, Priority: STAT, Start date: 11/20/16 5:05:00 WIRE TEMPERER, Stop date: 11/20/16 5:05:00 CSTNotes: Same as: [...] Neuro morphine Assertion Rash Drug Active allergy [place] Toradol Assertion rash Drug Active allergy [place] Ambien Assertion Sleep Propensity Active walking to adverse [place] reactions to drug Immunizations Immunization Date Given Site Status Last Comments Source Updated influenza virus 05/12/2014 completed Man Admin Note: [facility] vaccine, received at [facility]<sup>1 [facility], </sup> [facility] tuberculin 02/21/2010 Left Arm completed Belinda [facility] purified protein Medical derivative Center,[facility] Results Order Name Results Value Reference Date Interpretation Comments Source Range CARDIAC Troponin-T null 0.000 - 11/20 [facility] ENZYMES 0.100 /2016 [facility] CARDIAC Total CK 81 unit/L 12 - 191 11/20 [facility] ENZYMES /[address] [place] [address] CARDIAC Troponin-I null 0.00 - 11/20 [facility] ENZYMES 0.40 /[address] [place] [address] CARDIAC CK MB Index 0.7 0.0 - 2.5 11/20 [facility] ENZYMES /[address] [place] [address] CARDIAC CK MB 0.6 ng/mL 0.5 - 3.6 11/20 [facility] ENZYMES /[address] [place] [address] CHEM PANEL Magnesium 1.8 mg/dL 1.8 - 2.4 11/20 [facility] Lvl /[address] [place] [address] CHEM PANEL Phosphorus 2.5 mg/dL 2.5 - 4.5 11/20 [place] /[address] [place] [address] ELECTROLYT AGAP 10.3 meq/L 10.0 - 11/20 [facility] ES 20.0 /2016 [facility] ELECTROLYT B/C Ratio 13 6 - 25 11/20 [facility] ES /[address] [place] [address] ELECTROLYT A/G Ratio 1.2 0.7 - 1.6 11/20 [facility] ES /2016 [facility] ELECTROLYT Globulin 3.3 g/dL 2.7 - 4.2 11/20 [facility] [address] [place] [address] ELECTROLYT eGFR 105 11/20 Result Comment: The eGFR is calculated using the CKD-EPI formula. In most young, healthy individuals the eGFR will be >90 mL/ min/1.73m2. The eGFR declines with age. An eGFR of 60-89 may be normal in [facility] mL/min/1.7 /2016 some populations, particularly the elderly, for whom the CKD-EPI formula has not been extensively validated. Use of the eGFR is not recommended in the following populations: [address] Individuals with unstable creatinine concentrations, including [...] Lvl 8.4 mg/dL 8.5 - 10.5 11/20 [facility] [address] [place] [address] ELECTROLYT Chloride Lvl 107 meq/L 95 - 109 11/[address] ELECTROLYT BUN 11 mg/dL 7 - 22 11/[address] ELECTROLYT Glucose Lvl 100 mg/dL 70 - 99 11/[address] ELECTROLYT Potassium 3.3 meq/L 3.5 - 5.1 11/20 [facility] ELECTROLYT Sodium Lvl 140 meq/L 135 - 145 11/[address] ELECTROLYT Creatinine 0.86 mg/dL 0.50 - 11/20 [facility] Lvl 1.40 [facility] ELECTROLYT CO2 26 meq/L 24 - 32 11/[address] ELECTROLYT AST 27 unit/L 0 - 37 11/[address] ELECTROLYT ALT 22 unit/L 0 - 65 11/[address] ELECTROLYT Albumin Lvl 4.0 g/dL 3.5 - 5.0 11/[address] ELECTROLYT Bili Total 0.5 mg/dL 0.2 - 1.3 11/[address] ELECTROLYT Total 7.3 g/dL 6.4 - 8.4 11/20 [facility] ELECTROLYT Alk Phos 78 unit/L 39 - 136 11/20 [facility] ES [facility] HEMATOLOGY Anti-Xa 0.67 11/20 [facility] Unfractionat [iU]/mL /2016 Medical ed [facility]arin [facility] HEMATOLOGY Monocytes # 0.6 K/CMM 0.0 - 0.8 11/20 [facility] HEMATOLOGY Lymphocytes 1.6 K/CMM 1.0 - 5.5 11/20 [place] # /2016 [facility] HEMATOLOGY Segs-Bands # 3.1 K/CMM 1.5 - 8.1 11/20 [facility] HEMATOLOGY Basophils 1.6 % 0.0 - 1.0 11/20 [facility] HEMATOLOGY Eosinophils 0.1 % 0.0 - 4.0 11/20 [facility] HEMATOLOGY Basophils # 0.1 K/CMM 0.0 - 0.2 11/20 [facility] HEMATOLOGY Microcyte 1+ None Seen 11/20 Medical *ABN* Center (11/20/16 5:39 AM) HEMATOLOGY Lymphocytes 29.5 % 20.0 - 11/20 [place] 40.0 [facility] HEMATOLOGY Monocytes 10.6 % 2.0 - 12.0 11/20 [facility] HEMATOLOGY Segs 58.2 % 45.0 - 11/20 75.0 [facility] HEMATOLOGY INR 1.11 0.85 - 11/20 1.17 [facility] HEMATOLOGY PT 14.5 s 12.0 - 11/20 14.7 [facility] HEMATOLOGY PTT 32.9 s 22.9 - 11/20 [place] 35.8 [facility] HEMATOLOGY MCV 76.5 fL 80.0 - 11/20 [place] 94.0 [facility] HEMATOLOGY Hct 29.2 % 42.0 - 02 [place] 54.0 [facility] HEMATOLOGY MCH 24.1 pg 27.0 - 11/20 31.0 [facility] HEMATOLOGY Platelet 316 K/CMM 133 - 450 11/[address] [place] [address] HEMATOLOGY MCHC 31.5 g/dL 32.0 - 02 [place] 36.0 [facility] HEMATOLOGY RDW 20.7 % 11.5 - 11/20 [place] 14.5 [facility] HEMATOLOGY WBC 5.3 K/CMM 3.7 - 10.4 11/20 [facility]2016 [facility] HEMATOLOGY Hgb 9.2 g/dL 14.0 - 11/20 [facility] 18.0 [facility] HEMATOLOGY RBC 3.82 M/CMM 4.70 - 11/20 [facility] 6. [facility] HEMATOLOGY MPV 6.8 fL 7.4 - 10.4 11/[address] Chest Chest Clinical Indication: Chest pain; [...] used for the exam. FINAL REPORT Dose: VMR=475.4 mGy-cm FINDINGS: VASCULAR STRUCTURES: No pulmonary thromboemboli [...] Source Temperature Oral (F) 98.1 F 11/20/2016 [facility] Systolic (mm Hg) 142 11/20/2016 [facility] Diastolic (mm Hg) 99 11/20/2016 [facility] Respitory Rate 19 11/20/2016 [facility] Temperature Oral (F) 97.9 F 11/20/2016 [facility] Respitory Rate 18 11/20/2016 [facility] Systolic (mm Hg) 152 11/20/2016 [facility] Diastolic (mm Hg) 88 11/20/2016 [facility] Weight 81.818 11/20/2016 [facility] BMI Calculated 28.25 11/20/2016 [facility] Height 170.18 cm 11/20/2016 [facility] Respitory Rate 18 10/12/2016 [facility] Systolic (mm Hg) 132 10/12/2016 [facility] Diastolic (mm Hg) 67 10/12/2016 [facility] Systolic (mm Hg) 139 10/11/2016 [facility] Diastolic (mm Hg) 65 10/11/2016 [facility] Respitory Rate 18 10/11/2016 [facility] BMI Calculated 28.25 10/11/2016 [facility] Weight 81.818 10/11/2016 [facility] Height 170.18 cm 10/11/2016 [facility] Temperature Oral (F) 98.2 F 10/11/2016 [facility] Heart Rate 96 10/11/2016 [facility] Respitory Rate 18 10/11/2016 [facility] Systolic (mm Hg) 128 10/11/2016 [facility] Diastolic (mm Hg) 93 10/11/2016 [facility] Weight 176 07/18/2014 [facility] 67 07/18/2014 [facility] [place] Temperature Oral (F) 100.3 F 07/18/2014 [facility] [place] Heart Rate 108 07/18/2014 [facility] Systolic (mm Hg) 145 07/18/2014 [facility] [place] Diastolic (mm Hg) 105 07/18/2014 [facility] [place] Encounters Location Location Encounter Encounter Reason Attending ADM DC Status Source Details Type Number For Provider Date Date Visit [facility] Office [id number] Lenny 07/18 07[facility] [id number] Avni DALEY /2013 Neuro e NE [facility] Lab Report [id number] Lenny 07/20 07/20 [place] [id number] Avni DALEY /2013 [facility] [place] [facility] Emergency [id number] Silas 10/11 10/12 KEREN [facility] Inpatient [id number] March Karena 11/20 11/20 Francisco Teixeira [facility] Observation [id number] Kathya 02/18 02/18 KEREN Teixeira 0 Ed [facility] Inpatient [id number] Valentin 09/06 09/06 Francisco Teixeira 0 Briseyda [facility] Inpatient [id number] González 10/11 10/11 KEREN Teixeira [address] [facility] Procedures Procedure Code Date Perfomer Comments Source Cholecystectomy [id number] [facility] Laminectomy and [id number] [facility] discectomy [facility] Procedure on back [id number] [facility] Cholecystectomy [id number] [facility] Laminectomy and [id number] [facility] discectomy Procedure on back [id number] [facility] Cholecystectomy [id number] [facility] Laminectomy and [id number] [facility] discectomy Procedure on back [id number] [facility]
--- OUTSIDE RECORDS SUMMARY | 2018-10-20 11:05 | XMS REPORT | Continuity of Care Document ---
[...] Location Date Lab Report Lenny Holly MD [facility] [place] Jul 20, 2014 Allergies, Adverse Reactions, Alerts [...]
--- OUTSIDE RECORDS SUMMARY | 2018-10-20 11:05 | XMS REPORT | Continuity of Care Document ---
[...] Location Date Lab Report Lenny Holly MD [facility] [place] Jul 20, 2014 Allergies, Adverse Reactions, Alerts [...]
--- OUTSIDE RECORDS SUMMARY | 2018-10-20 11:10 | XMS REPORT ---
:1970 [facility] Organization [facility] Address [address] [place] [address] Dr. Caraballo [address] [place] [address] Care Team Providers Name Role Phone EDNA HAMILTON Unavailable Unavailable DR TYRON DAIGLE Unavailable Unavailable PATRICIA SMITH Unavailable Unavailable DR BOB SHEETS Unavailable Unavailable DR DALTON BUCIO Unavailable Unavailable NIRANJAN NICHOLSON Unavailable Unavailable JAQUI, WILL Unavailable Unavailable BEACH, ILIANA Unavailable Unavailable SOTO, BHAGLEANDROT PURUSHOTTAM Unavailable Unavailable KALPANADELIA MCINTOSHRICK Unavailable Unavailable MAURA, MUSTAQ KASAM Unavailable Unavailable [...] Treating Comments Name Type Date Date Clinician morphine DA Active U 2018-09 00:00:0 0 zolpidem DA Active MO 2018-08 tartrate - 00:00:0 0 ketorolac DA Active SC 2018-08 00:00:0 0 zolpidem DA Active MO 2017-11 tartrate - 00:00:0 0 ketorolac DA Active SC 2017-11 00:00:0 0 Medications This patient has no known medications. Encounters Start End Encounter Admission Attending Care Care Encounter Date/Time Date/Time Type Type Clinicians Facility Department ID 2018-09-14 2018-09-15 Outpatient KERRY TINAJERO TELE [id number] 12:31:00 11:36:00 TYRON 2018-07-31 2018-07-31 [place] [facility] [id number] 00:38:00 05:56:00 BOB 2018-07-15 2018-07-16 [place] [facility] [place] [id number] 10:19:00 12:35:00 DALTON 2017-12-16 2017-12-16 Emergency E BA, [place] [facility] [place] [id number] 13:45:00 17:07:00 Results Test Description Test Time Test Comments Text Results Atomic Results Result Comments LIPID PANEL 2018-09-27 06:49:00 Test Item Value Reference Range Comments TRIGLYCERIDES (BEAKER) (test fqys=822) 93 mg/dL CHOLESTEROL (BEAKER) (test dyed=979) 235 mg/dL HDL CHOLESTEROL (BEAKER) (test xliu=832) 44 mg/dL LDL CHOLESTEROL CALCULATED (BEAKER) (test fwxv=186) 172 mg/dL Triglyceride Reference Range: Low Risk <150 Borderline 150- 199 High Risk 200-499 Very High Risk >=500Cholesterol Reference Range: Low Risk <200 Borderline 200-239 High Risk > 240HDL Cholesterol Reference Range: Low Risk >=60 High Risk <40LDL Cholesterol Reference Range: Optimal <100 Near Optimal 100-129 Borderline 130-159 High 160-189 Very High >=190[facility] METABOLIC [id number] 06:48:00 Test Item Value Reference Range Comments SODIUM (BEAKER) (test 139 meq/L 135-148 mzje=855) POTASSIUM (BEAKER) (test 3.9 meq/L 3.6-5.5 zspv=734) CHLORIDE (BEAKER) (test 107 meq/L 98-106 jtmx=936) CO2 (BEAKER) (test 21 meq/L 20-29 xlfx=984) BLOOD UREA NITROGEN 17 mg/dL 10-26 (BEAKER) (test zfbi=330) CREATININE (BEAKER) (test 0.89 mg/dL 0.50-1.20 qwkj=534) GLUCOSE RANDOM (BEAKER) 89 mg/dL 70-110 (test giso=934) CALCIUM (BEAKER) (test 9.3 mg/dL 8.5-10.5 gutl=710) EGFR (BEAKER) (test 92 mL/min/1.73 sq m ESTIMATED GFR IS NOT xwhm=3282) ACCURATE CREATININE CLEARANCE IN PREDICTING GLOMERULAR FILTRATION RATE. ESTIMATED GFR IS NOT APPLICABLE FOR DIALYSIS PATIENTS. [id number] 06:47:00 Test Item Value Reference Range Comments PHOSPHORUS (BEAKER) (test dpyr=666) 3.1 mg/dL 2.5-4.5 TROPONIN [id number] 06:42:00 Test Item Value Reference Range Comments TROPONIN I (BEAKER) (test tqkd=807) < ng/mL 0.00-0.15 Troponin I (TnI) levels [...] failure, acidosis, acute neurological disease, and persistent tachyarrhythmia.[id number] 06:42:00 Test Item Value Reference Range Comments MAGNESIUM (BEAKER) (test bjqq=872) 2.3 mg/dL 1.5-3.0 CBC W/PLT COUNT & AUTO [id number] 06:32:00 Test Item Value Reference Range Comments WHITE BLOOD CELL COUNT (BEAKER) (test rtwu=859) 5.8 K/ L 4.0-10.0 RED BLOOD CELL COUNT (BEAKER) (test jjon=558) 4.06 M/ L 4.20-5.80 HEMOGLOBIN (BEAKER) (test kpws=713) 8.8 GM/DL 13.0-16.8 HEMATOCRIT (BEAKER) (test nimb=505) 32.4 % 36.0-50.0 MEAN CORPUSCULAR VOLUME (BEAKER) (test pqpc=107) 79.8 fL 82.0-99.0 MEAN CORPUSCULAR HEMOGLOBIN (BEAKER) (test 21.7 pg 27.0-33.0 gceo=903) MEAN CORPUSCULAR HEMOGLOBIN CONC (BEAKER) (test 27.2 GM/DL 32.0-36.0 lwhc=750) RED CELL DISTRIBUTION WIDTH (BEAKER) (test 18.9 % 12.0-15.0 bptk=282) PLATELET COUNT (BEAKER) (test pgcv=523) 340 K/CU MM 150-430 MEAN PLATELET VOLUME (BEAKER) (test xzff=149) 9.3 fL 6.0-11.5 NUCLEATED RED BLOOD CELLS (BEAKER) (test 0 /100 WBC 0-0 oojm=692) NEUTROPHILS RELATIVE PERCENT (BEAKER) (test 36 % buhu=771) LYMPHOCYTES RELATIVE PERCENT (BEAKER) (test 47 % tscl=314) MONOCYTES RELATIVE PERCENT (BEAKER) (test 13 % vryj=428) EOSINOPHILS RELATIVE PERCENT (BEAKER) (test 3 % ngwm=910) BASOPHILS RELATIVE PERCENT (BEAKER) (test 1 % qgfg=600) NEUTROPHILS ABSOLUTE COUNT (BEAKER) (test 2.09 K/ L 1.80-8.00 jydb=374) LYMPHOCYTES ABSOLUTE COUNT (BEAKER) (test 2.72 K/ L 1.48-4.50 ecbf=641) MONOCYTES ABSOLUTE COUNT (BEAKER) (test 0.75 K/ L 0.00-1.30 nill=835) EOSINOPHILS ABSOLUTE COUNT (BEAKER) (test 0.16 K/ L 0.00-0.50 tdew=962) BASOPHILS ABSOLUTE COUNT (BEAKER) (test 0.03 K/ L 0.00-0.20 qxrb=951) IMMATURE GRANULOCYTES-RELATIVE PERCENT (BEAKER) 0 % 0-0 (test bhhk=2561) [id number] 06:31:00 Test Item Value Reference Range Comments PROTIME (BEAKER) (test wguz=415) 10.3 sec 9.3-12.0 INR (BEAKER) (test wnbf=739) 0.9 <=5.9 PARTIAL THROMBOPLASTIN TIME (BEAKER) (test 21.9 sec 23.0-35.0 jpur=108) RECOMMENDED COUMADIN/WARFARIN INR THERAPY RANGESSTANDARD DOSE: 2.0 - 3.0 Includes: PROPHYLAXIS forvenous thrombosis, systemic embolization; TREATMENT for venous thrombosis and/or pulmonary embolus.HIGH RISK: Target INR is 2.5-3.5 for patients with mechanical heart valves.Final Information (Auto Output)Final Information (Auto Output)Final Information (Auto Output)CT PE [id number] 09:42:36CLINICAL HISTORY: Elevated the dimer.LOCATION: D4.FINDINGS: Following the [...] 6 mm calculus is noted at thesuperior poleleft kidney. No acute skeletal or soft tissue abnormalities.The lungs are clear. No infiltrates are identified. There are no pleuraleffusions.IMPRESSION:1. No evidence of central pulmonary embolus.2. No acute abnormalities.*One or more of the following radiation dose reduction techniques was used:automated exposure control, adjustment of mA and/or KV according to patientsize, and/or utilization of iterative reconstruction technique.BASIC METABOLIC [id number] 05:53:00 Test Item Value Reference Range Comments [...] code=09D) 8.3 mg/dL 8.3-9.5 PRO TIME AND [id number] 05:51:00 Test Item Value Reference Range Comments [...] NO RBC MORPH (test code=RBCMOR) NORMAL CARDIAC [id number] 22:13:00 Test Item Value Reference Range Comments TROPONIN I (test code=A84) <0.015 ng/mL 0.000-0.045 CARDIAC [id number] 15:31:00 Test Item Value Reference Range Comments TROPONIN I (test code=A84) <0.015 ng/mL 0.000-0.045 CBC W/PLT COUNT & AUTO [id number] 09:31:00 Test Item Value Reference Range Comments WHITE BLOOD CELL COUNT (BEAKER) (test yprn=137) 4.9 K/ L 4.0-10.0 RED BLOOD CELL COUNT (BEAKER) (test ubfi=990) 3.69 M/ L 4.20-5.80 HEMOGLOBIN (BEAKER) (test nrav=088) 8.5 GM/DL 13.0-16.8 HEMATOCRIT (BEAKER) (test qorn=583) 28.7 % 36.0-50.0 MEAN CORPUSCULAR VOLUME (BEAKER) (test rfgl=764) 77.8 fL 82.0-99.0 MEAN CORPUSCULAR HEMOGLOBIN (BEAKER) (test 23.0 pg 27.0-33.0 lztr=875) MEAN CORPUSCULAR HEMOGLOBIN CONC (BEAKER) (test 29.6 GM/DL 32.0-36.0 cyqx=955) RED CELL DISTRIBUTION WIDTH (BEAKER) (test 18.6 % 12.0-15.0 ncpz=411) PLATELET COUNT (BEAKER) (test jwlu=094) 305 K/CU MM 150-430 MEAN PLATELET VOLUME (BEAKER) (test awho=727) 9.1 fL 6.0-11.5 NUCLEATED RED BLOOD CELLS (BEAKER) (test 0 /100 WBC 0-0 hddb=175) (MANUAL DIFFERENTIAL)2018-09-03 09:31:00 Test Item Value Reference Range Comments NEUTROPHILS - REL (DIFF) (BEAKER) (test umkb=2435) 39 % LYMPHOCYTES - REL (DIFF) (BEAKER) (test suks=5640) 44 % MONOCYTES - REL (DIFF) (BEAKER) (test rdlp=0565) 13 % EOSINOPHILS - REL (DIFF) (BEAKER) (test ctum=6972) 4 % NEUTROPHILS - ABS (DIFF) (BEAKER) (test jjqh=5648) 1.91 K/ L 1.80-8.00 LYMPHOCYTES - ABS (DIFF) (BEAKER) (test spng=1534) 2.16 K/ L 1.48-4.50 MONOCYTES - ABS (DIFF) (BEAKER) (test oqrx=2262) 0.64 K/ L 0.00-1.30 EOSINOPHILS - ABS (DIFF) (BEAKER) (test qlos=1232) 0.20 K/ L 0.00-0.50 TOTAL COUNTED (BEAKER) (test qxfd=3864) 100 WBC MORPHOLOGY (BEAKER) (test wlrf=826) Normal RBC MORPHOLOGY (BEAKER) (test qrma=859) Normal LARGE PLT(BEAKER) (test stdi=6802) Present BASIC METABOLIC [id number] 05:01:00 Test Item Value Reference Range Comments SODIUM (BEAKER) (test 138 meq/L 135-148 padq=591) POTASSIUM (BEAKER) (test 3.5 meq/L 3.6-5.5 fqfk=895) CHLORIDE (BEAKER) (test 106 meq/L 98-106 fghs=775) CO2 (BEAKER) (test 24 meq/L 20-29 ffoe=455) BLOOD UREA NITROGEN 13 mg/dL 10-26 (BEAKER) (test aast=669) CREATININE (BEAKER) (test 0.94 mg/dL 0.50-1.20 vvoi=987) GLUCOSE RANDOM (BEAKER) 121 mg/dL 70-110 (test dwoz=047) CALCIUM (BEAKER) (test 8.3 mg/dL 8.5-10.5 jxvq=144) EGFR (BEAKER) (test 86 mL/min/1.73 sq m ESTIMATED GFR IS NOT qhaq=0538) ACCURATE CREATININE CLEARANCE IN PREDICTING GLOMERULAR FILTRATION RATE. ESTIMATED GFR IS NOT APPLICABLE FOR DIALYSIS PATIENTS. LIPID [id number] 05:01:00 Test Item Value Reference Range Comments TRIGLYCERIDES (BEAKER) (test jajc=627) 122 mg/dL CHOLESTEROL (BEAKER) (test ltrs=455) 201 mg/dL HDL CHOLESTEROL (BEAKER) (test ibfc=207) 39 mg/dL LDL CHOLESTEROL CALCULATED (BEAKER) (test 138 mg/dL rvuc=383) Triglyceride Reference Range: Low Risk <150 Borderline 150- 199 High Risk 200-499 Very High Risk >=500Cholesterol Reference Range: Low Risk <200 Borderline 200-239 High Risk > 240HDL Cholesterol Reference Range: Low Risk >=60 High Risk <40LDL Cholesterol Reference Range: Optimal <100 Near Optimal 100-129 Borderline 130-159 High 160-189 Very High >=190TROPONIN [id number] 04:51:00 Test Item Value Reference Range Comments TROPONIN I (BEAKER) (test dbhq=956) < ng/mL 0.00-0.15 HEMOGLOBIN [id number] 04:43:00 Test Item Value Reference Range Comments HEMOGLOBIN A1C (BEAKER) (test ehny=448) 5.7 % 4.3-6.1 CBC W/PLT COUNT & AUTO [id number] 04:21:00 Test Item Value Reference Range Comments WHITE BLOOD CELL COUNT (BEAKER) (test dvjs=074) 6.8 K/ L 4.0-10.0 RED BLOOD CELL COUNT (BEAKER) (test dqhi=594) 2.91 M/ L 4.20-5.80 HEMOGLOBIN (BEAKER) (test fvqi=876) 6.7 GM/DL 13.0-16.8 HEMATOCRIT (BEAKER) (test ymms=664) 22.8 % 36.0-50.0 MEAN CORPUSCULAR VOLUME (BEAKER) (test ajol=348) 78.4 fL 82.0-99.0 MEAN CORPUSCULAR HEMOGLOBIN (BEAKER) (test 23.0 pg 27.0-33.0 ndms=512) MEAN CORPUSCULAR HEMOGLOBIN CONC (BEAKER) (test 29.4 GM/DL 32.0-36.0 wxxe=795) RED CELL DISTRIBUTION WIDTH (BEAKER) (test 18.4 % 12.0-15.0 gwnx=329) PLATELET COUNT (BEAKER) (test hkth=637) 343 K/CU MM 150-430 MEAN PLATELET VOLUME (BEAKER) (test jxej=125) 9.7 fL 6.0-11.5 NUCLEATED RED BLOOD CELLS (BEAKER) (test 0 /100 WBC 0-0 tcvg=292) NEUTROPHILS RELATIVE PERCENT (BEAKER) (test 38 % mvbe=200) LYMPHOCYTES RELATIVE PERCENT (BEAKER) (test 36 % dazn=771) MONOCYTES RELATIVE PERCENT (BEAKER) (test 22 % tmjb=328) EOSINOPHILS RELATIVE PERCENT (BEAKER) (test 4 % ivhs=105) BASOPHILS RELATIVE PERCENT (BEAKER) (test 0 % cqnh=817) NEUTROPHILS ABSOLUTE COUNT (BEAKER) (test 2.58 K/ L 1.80-8.00 zexc=477) LYMPHOCYTES ABSOLUTE COUNT (BEAKER) (test 2.45 K/ L 1.48-4.50 qxmg=779) MONOCYTES ABSOLUTE COUNT (BEAKER) (test 1.48 K/ L 0.00-1.30 ycmb=238) EOSINOPHILS ABSOLUTE COUNT (BEAKER) (test 0.26 K/ L 0.00-0.50 ibgi=641) BASOPHILS ABSOLUTE COUNT (BEAKER) (test 0.01 K/ L 0.00-0.20 sdoo=355) IMMATURE GRANULOCYTES-RELATIVE PERCENT (BEAKER) 0 % 0-0 (test ghrg=6306) TROPONIN [id number] 15:35:00 Test Item Value Reference Range Comments TROPONIN I (BEAKER) (test qjcj=134) < ng/mL 0.00-0.15 CT, CHEST WITH IV CONTRAST- PE TEST [id number] 08:14:00Reason for exam:-& gt;CHEST PAINWhat is the [...] MDReport Verified Date/Time: 09/02/2018 08:14:32 Reading Location: [facility] Diagnostic Imaging Reading Room - [place] [address] BASIC METABOLIC [id number] 07:38:00 Test Item Value Reference Range Comments SODIUM (BEAKER) (test 134 meq/L 135-148 jsus=741) POTASSIUM (BEAKER) (test 3.2 meq/L 3.6-5.5 nopk=606) CHLORIDE (BEAKER) (test 102 meq/L 98-106 osri=913) CO2 (BEAKER) (test 17 meq/L 20-29 oxat=870) BLOOD UREA NITROGEN 9 mg/dL 10-26 (BEAKER) (test wizz=257) CREATININE (BEAKER) (test 1.20 mg/dL 0.50-1.20 bssc=622) GLUCOSE RANDOM (BEAKER) 224 mg/dL 70-110 (test bkmf=656) CALCIUM (BEAKER) (test 9.0 mg/dL 8.5-10.5 dsmy=040) EGFR (BEAKER) (test 65 mL/min/1.73 sq m ESTIMATED GFR IS NOT qgfm=9604) ACCURATE CREATININE CLEARANCE IN PREDICTING GLOMERULAR FILTRATION RATE. ESTIMATED GFR IS NOT APPLICABLE FOR DIALYSIS PATIENTS. PT/[id number] 07:33:00 Test Item Value Reference Range Comments PROTIME (BEAKER) (test cbse=405) 11.5 sec 9.3-12.0 INR (BEAKER) (test qfoz=440) 1.1 <=5.9 PARTIAL THROMBOPLASTIN TIME (BEAKER) (test 139.2 sec 23.0-35.0 chhs=148) RECOMMENDED COUMADIN/WARFARIN INR THERAPY RANGESSTANDARD DOSE: 2.0 - 3.0 Includes: PROPHYLAXIS forvenous thrombosis, systemic embolization; TREATMENT for venous thrombosis and/or pulmonary embolus.HIGH RISK: Target INR is 2.5-3.5 for patients with mechanical heart valves.Final Information (Auto Output)Final Information (Auto Output)Final Information (Auto Output)TROPONIN [id number] 07: 29:00 Test Item Value Reference Range Comments TROPONIN I (BEAKER) (test fsrz=937) < ng/mL 0.00-0.15 B-TYPE NATRIURETIC FACTOR (BNP)2018-09-02 07:25:00 Test Item Value Reference Range Comments B-TYPE NATRIURETIC PEPTIDE (BEAKER) (test 150 pg/mL 0-100 iqvj=230) [id number] 07:14:00 Test Item Value Reference Range Comments MAGNESIUM (BEAKER) (test qofk=269) 2.2 mg/dL 1.5-3.0 RAD, CHEST, 1 VIEW, NON [id number] 07:10:00Reason for exam:->CHEST PAINFINAL REPORT Chest one [...] Suarezeport Verified Date/Time: 09/02/2018 07:10:11 Reading Location: [facility] B1 C013Y CT Body Reading Room CBC W/PLT COUNT & AUTO [id number] 07:03:00 Test Item Value Reference Range Comments WHITE BLOOD CELL COUNT (BEAKER) (test ecru=404) 9.7 K/ L 4.0-10.0 RED BLOOD CELL COUNT (BEAKER) (test zxxa=284) 4.18 M/ L 4.20-5.80 HEMOGLOBIN (BEAKER) (test rwyn=504) 9.8 GM/DL 13.0-16.8 HEMATOCRIT (BEAKER) (test obip=567) 32.6 % 36.0-50.0 MEAN CORPUSCULAR VOLUME (BEAKER) (test znyw=827) 78.0 fL 82.0-99.0 MEAN CORPUSCULAR HEMOGLOBIN (BEAKER) (test 23.4 pg 27.0-33.0 knqn=389) MEAN CORPUSCULAR HEMOGLOBIN CONC (BEAKER) (test 30.1 GM/DL 32.0-36.0 mkxv=466) RED CELL DISTRIBUTION WIDTH (BEAKER) (test 18.4 % 12.0-15.0 lfwh=651) PLATELET COUNT (BEAKER) (test xaah=747) 354 K/CU MM 150-430 MEAN PLATELET VOLUME (BEAKER) (test ihkv=997) 9.6 fL 6.0-11.5 NUCLEATED RED BLOOD CELLS (BEAKER) (test 0 /100 WBC 0-0 onan=808) NEUTROPHILS RELATIVE PERCENT (BEAKER) (test 62 % njxr=744) LYMPHOCYTES RELATIVE PERCENT (BEAKER) (test 26 % mlhp=725) MONOCYTES RELATIVE PERCENT (BEAKER) (test 10 % knwv=248) EOSINOPHILS RELATIVE PERCENT (BEAKER) (test 1 % tqlq=841) BASOPHILS RELATIVE PERCENT (BEAKER) (test 0 % sinm=282) NEUTROPHILS ABSOLUTE COUNT (BEAKER) (test 6.00 K/ L 1.80-8.00 frix=634) LYMPHOCYTES ABSOLUTE COUNT (BEAKER) (test 2.51 K/ L 1.48-4.50 rgkl=947) MONOCYTES ABSOLUTE COUNT (BEAKER) (test 0.99 K/ L 0.00-1.30 hhlj=292) EOSINOPHILS ABSOLUTE COUNT (BEAKER) (test 0.13 K/ L 0.00-0.50 gyef=816) BASOPHILS ABSOLUTE COUNT (BEAKER) (test 0.02 K/ L 0.00-0.20 atsk=259) IMMATURE GRANULOCYTES-RELATIVE PERCENT (BEAKER) 0 % 0-0 (test mrlk=7677) CARDIAC PROFILE 2018-07-31 05:25:00 Test Item Value Reference Range Comments TROPONIN I (test code=A84) <0.015 ng/mL 0.000-0.045 CBC (INCLUDES AUTOMATED DIFFERENTIAL)*[id number] 01:33:00 Test Item Value Reference Range Comments [...] code=WTSH) 2.040 uIU/mL 0.358-3.740 BASIC METABOLIC PANEL *WW*2018-07-16 06:46:00 Test Item Value Reference Range Comments [...] code=09D) 7.9 mg/dL 8.3-9.5 CBC (INCLUDES AUTOMATED DIFFERENTIAL)*[id number] 06:34:00 Test Item Value Reference Range Comments [...] CHEST WITH CONTRAST, PE PROTOCOL: Location code: [id number] HISTORY: Shortness of breath , chest painCOMPARISON: [...] (test code=09D) 8.6 mg/dL 8.3-9.5 Arterial Blood [id number] 08:55:00 Test Item Value Reference Range Comments pH (test code=PHRT) 7.412 7.350-7.450 pCO2 (test code=PCO2RT) 36.2 mmHg 35.0-45.0 pO2 (test code=PO2RT) 99.7 mmHg 80.0-110.0 HCO3? (test code=HCO3) 22.6 mmol/L 22.0-26.0 DARIO (test code=DARIO) -1.1 mmol/L -3.0-3.0 tHb (test code=THBRT) 11.0 g/dL 14.0-18.0 sO2 (test code=SO2RT) 96.9 % 92.0-100.0 FO2Hb (test code=TP6VQPK) 94.7 % 94.0-100.0 FCOHb (test code=FCOHBRT) 1.2 % 0.0-3.0 FMetHb (test code=FMETHBRT) 1.1 % 0.2-0.6 ABGTEMP (test code=ABGTEMP) * Temp Corrected Values* ABGTEMP (test code=ABGTEMP.) 37.0 ?C pH (T) (test code=PHTEMP) 7.412 7.350-7.450 pCO2 (T) (test code=UTQ1VHRA) 36.2 mmHg 35.0-45.0 pO2 (T) (test code=DT8BFRY) 99.7 mmHg 80.0-110.0 Device (test code=DEVICE) ROOM [...] For Most Other Applications CBC (INCLUDES AUTOMATED DIFFERENTIAL)*[id number] 07:33:00 Test Item Value Reference Range Comments [...] XR CHEST 1 VIEW PORTABLE *WW*2018-07-15 07:25:22Location: T0VUAIO, FRONTAL VIEW HISTORY: [id number]: Chest painCOMPARISON: Chest x-ray 388FINDINGS: The lungs are clear without consolidation. No pleural effusion or pneumothorax.The heart size is normal. Thebones are unremarkable. Right IJ Port- A-Cath isin the SVC.IMPRESSION:No evidence of acute cardiopulmonary disease.BLOOD [id number] 16:00:00 Test Item Value Reference Range Comments CULTURE (BEAKER) (test hhjo=1986) No growth in 5 days BLOOD [id number] 16:00:00 Test Item Value Reference Range Comments CULTURE (BEAKER) (test tobw=4810) No growth in 5 days LACTIC ACID, VENOUS, WHOLE [id number] 14:43:00 Test Item Value Reference Range Comments LACTATE BLOOD VENOUS (2) (BEAKER) (test 1.3 mmol/L 0.5-2.2 koyu=3394) Effective 02/12/2016: Units/Reference Range ChangeNew: 0.5-2.2 mmol/L Previous: 5 -18 mg/dLURINALYSIS W/ REFLEX URINE [id number] 14:17:00 Test Item Value Reference Range Comments COLOR (BEAKER) (test tzqf=894) Yellow CLARITY (BEAKER) (test jhai=169) Clear SPECIFIC GRAVITY UA (BEAKER) (test tzbx=438) 1.010 1.001-1.035 PH UA (BEAKER) (test eriw=617) 7.0 5.0-8.0 PROTEIN UA (BEAKER) (test ovoh=391) Negative Negative GLUCOSE UA (BEAKER) (test twip=722) Negative Negative KETONES UA (BEAKER) (test ezvs=258) Negative Negative BILIRUBIN UA (BEAKER) (test cyme=252) Negative Negative BLOOD UA (BEAKER) (test lbiz=177) Negative Negative NITRITE UA (BEAKER) (test mjuh=458) Negative Negative LEUKOCYTE ESTERASE UA (BEAKER) (test Negative Negative lbaf=961) UROBILINOGEN UA (BEAKER) (test xjqg=485) 0.2 mg/dL 0.2-1.0 BACTERIA (BEAKER) (test kivv=611) None Seen RBC UA-MANUAL (BEAKER) (test ydch=3387) None Seen /HPF WBC UA-MANUAL (BEAKER) (test etmb=0917) <5 /HPF SQUAMOUS EPITHELIAL MANUAL (BEAKER) (test None Seen /HPF urny=1393) SOURCE(BEAKER) (test lukf=9048) CT, CHEST WITH IV CONTRAST- PE TEST [id number] 13:14:00Reason for exam:-& gt;CHEST PAINReason for exam:->h/o [...] Verified Date/ Time: 05/24/2018 13:14:23 Reading Location: [address] Radiology Reading Room LACTIC ACID, VENOUS, WHOLE [id number] 11:37:00 Test Item Value Reference Range Comments LACTATE BLOOD VENOUS (2) (BEAKER) (test 4.6 mmol/L 0.5-2.2 amae=4049) Effective 02/12/2016: Units/Reference Range ChangeNew: 0.5-2.2 mmol/L Previous: 5 -18 mg/dLCBC W/PLT COUNT & AUTO [id number] 11:20:00 Test Item Value Reference Range Comments WHITE BLOOD CELL COUNT (BEAKER) (test gytd=457) 9.8 K/ L 4.0-10.0 RED BLOOD CELL COUNT (BEAKER) (test rqny=091) 4.15 M/ L 4.20-5.80 HEMOGLOBIN (BEAKER) (test wvqd=405) 10.7 GM/DL 13.0-16.8 HEMATOCRIT (BEAKER) (test alku=027) 33.6 % 40.0-50.0 MEAN CORPUSCULAR VOLUME (BEAKER) (test eqkk=166) 80.8 fL 82.0-98.0 MEAN CORPUSCULAR HEMOGLOBIN (BEAKER) (test 25.7 pg 27.0-33.0 niad=957) MEAN CORPUSCULAR HEMOGLOBIN CONC (BEAKER) (test 31.8 GM/DL 32.0-36.0 jobk=850) RED CELL DISTRIBUTION WIDTH (BEAKER) (test 28.4 % 10.3-14.2 gdha=565) PLATELET COUNT (BEAKER) (test jkqq=712) 324 K/CU MM 150-430 MEAN PLATELET VOLUME (BEAKER) (test zmbo=518) 7.3 fL 6.5-10.5 NUCLEATED RED BLOOD CELLS (BEAKER) (test 0 /100 WBC 0-0 kqfn=593) NEUTROPHILS RELATIVE PERCENT (BEAKER) (test 75 % gcve=887) LYMPHOCYTES RELATIVE PERCENT (BEAKER) (test 17 % cyer=886) MONOCYTES RELATIVE PERCENT (BEAKER) (test 6 % ckna=799) EOSINOPHILS RELATIVE PERCENT (BEAKER) (test 2 % djjh=567) BASOPHILS RELATIVE PERCENT (BEAKER) (test 0 % ywyw=799) NEUTROPHILS ABSOLUTE COUNT (BEAKER) (test 7.30 K/ L 1.80-8.00 opru=947) LYMPHOCYTES ABSOLUTE COUNT (BEAKER) (test 1.70 K/ L 1.48-4.50 wnov=937) MONOCYTES ABSOLUTE COUNT (BEAKER) (test 0.60 K/ L 0.00-1.30 hrzw=536) EOSINOPHILS ABSOLUTE COUNT (BEAKER) (test 0.20 K/ L 0.00-0.50 xlic=917) BASOPHILS ABSOLUTE COUNT (BEAKER) (test 0.00 K/ L 0.00-0.20 sfzv=532) (MANUAL DIFFERENTIAL)2018-05-24 11:20:00 Test Item Value Reference Range Comments TOTAL COUNTED (BEAKER) (test hgfk=5203) WBC MORPHOLOGY (BEAKER) (test swcy=337) Normal PLT MORPHOLOGY (BEAKER) (test gxfh=249) Normal ANISOCYTOSIS (BEAKER) (test bovf=933) 3+ many HYPOCHROMIA (BEAKER) (test nfad=262) 3+ many TROPONIN [id number] 11:12:00 Test Item Value Reference Range Comments TROPONIN I (BEAKER) (test cyou=395) < ng/mL 0.00-0.15 Troponin I (TnI) levels [...] and persistent tachyarrhythmia.CREATINE KINASE (CK), TOTAL AND [id number] 11:11:00 Test Item Value Reference Range Comments CREATINE KINASE TOTAL (BEAKER) (test cvdn=466) 76 U/L 40-250 CREATINE KINASE-MB (BEAKER) (test pnbl=512) 1.2 ng/mL 0.0-4.9 CREATINE KINASE-MB INDEX (BEAKER) (test fupa=138) 1.6 % CK-MB Reference Range:<5 Normal5-10 Borderline>10 AbnormalHEPATIC FUNCTION [id number] 11:06:00 Test Item Value Reference Range Comments TOTAL PROTEIN (BEAKER) (test sgie=402) 7.0 gm/dL 6.0-8.5 ALBUMIN (BEAKER) (test vavc=0064) 4.3 g/dL 3.5-5.0 BILIRUBIN TOTAL (BEAKER) (test swxz=387) 0.4 mg/dL 0.1-1.2 BILIRUBIN DIRECT (BEAKER) (test jjxw=415) 0.2 mg/dL 0.0-0.4 ALKALINE PHOSPHATASE (BEAKER) (test njzp=762) 70 U/L 30-115 AST (SGOT) (BEAKER) (test lgod=776) 18 U/L 5-40 ALT (SGPT) (BEAKER) (test fmkm=082) 13 U/L 5-50 BASIC METABOLIC [id number] 11:03:00 Test Item Value Reference Range Comments SODIUM (BEAKER) (test 138 meq/L 135-148 gcht=986) POTASSIUM (BEAKER) (test 3.6 meq/L 3.6-5.5 xway=147) CHLORIDE (BEAKER) (test 106 meq/L 98-106 pxeb=727) CO2 (BEAKER) (test 21 meq/L 20-29 fcxg=327) BLOOD UREA NITROGEN 11 mg/dL 10-26 (BEAKER) (test bbru=302) CREATININE (BEAKER) (test 0.96 mg/dL 0.50-1.20 xfph=076) GLUCOSE RANDOM (BEAKER) 212 mg/dL 70-110 (test txci=915) CALCIUM (BEAKER) (test 9.4 mg/dL 8.5-10.5 tned=199) EGFR (BEAKER) (test 84 mL/min/1.73 sq m ESTIMATED GFR IS NOT rguc=5786) ACCURATE CREATININE CLEARANCE IN PREDICTING GLOMERULAR FILTRATION RATE. ESTIMATED GFR IS NOT APPLICABLE FOR DIALYSIS PATIENTS. B-TYPE NATRIURETIC FACTOR (BNP)2018-05-24 11:02:00 Test Item Value Reference Range Comments B-TYPE NATRIURETIC PEPTIDE (BEAKER) (test qzid=891) 8 pg/mL 0-100 [id number] 10:53:00 Test Item Value Reference Range Comments PROTIME (BEAKER) (test mxka=203) 9.9 sec 9.3-12.0 INR (BEAKER) (test otuv=437) 0.9 <=5.9 PARTIAL THROMBOPLASTIN TIME (BEAKER) (test 39.3 sec 23.0-35.0 masp=575) RECOMMENDED COUMADIN/WARFARIN INR THERAPY RANGESSTANDARD DOSE: 2.0 - 3.0 Includes: PROPHYLAXIS forvenous thrombosis, systemic embolization; TREATMENT for venous thrombosis and/or pulmonary embolus.HIGH RISK: Target INR is 2.5-3.5 for patients with mechanical heart valves.Final Information (Auto Output)Final Information (Auto Output)Final Information (Auto Output)RAD, CHEST, 1 VIEW, NON [id number] 10:18:00Reason for exam:->CHEST PAINShould this be performed at the bedside?->YesFINAL REPORT Chest one view INDICATION: Chest pain COMPARISON: 09/27/2016 IMPRESSION: There is no focal consolidation, vascular congestion, pleural effusion, or pneumothorax. Heart size is within normal limits. Mild aortic tortuosity is noted. A right chest Port-A-Cath is in place. The bones appear intact. Signed: June Evangelista MDReport Verified Date/Time: 05/24/2018 10:18:17 Reading Location: [facility] [facility] CBC W/PLT COUNT & AUTO [id number] 08: 55:00 Test Item Value Reference Range Comments WHITE BLOOD CELL COUNT (BEAKER) (test xjyv=788) 5.4 K/ L 4.0-10.0 RED BLOOD CELL COUNT (BEAKER) (test hgnb=012) 3.90 M/ L 4.20-5.80 HEMOGLOBIN (BEAKER) (test heoe=363) 9.2 GM/DL 13.0-16.8 HEMATOCRIT (BEAKER) (test yzen=024) 29.2 % 40.0-50.0 MEAN CORPUSCULAR VOLUME (BEAKER) (test jbmo=799) 75.0 fL 82.0-98.0 MEAN CORPUSCULAR HEMOGLOBIN (BEAKER) (test 23.7 pg 27.0-33.0 tlbi=635) MEAN CORPUSCULAR HEMOGLOBIN CONC (BEAKER) (test 31.5 GM/DL 32.0-36.0 eglu=276) RED CELL DISTRIBUTION WIDTH (BEAKER) (test 26.3 % 10.3-14.2 vqfk=712) PLATELET COUNT (BEAKER) (test suxm=756) 338 K/CU MM 150-430 MEAN PLATELET VOLUME (BEAKER) (test mdpp=353) 7.9 fL 6.5-10.5 (MANUAL DIFFERENTIAL)2018-04-26 08:55:00 Test Item Value Reference Range Comments NEUTROPHILS - REL (DIFF) (BEAKER) (test npgk=3123) 61 % LYMPHOCYTES - REL (DIFF) (BEAKER) (test ulnr=9883) 32 % MONOCYTES - REL (DIFF) (BEAKER) (test xevu=6956) 5 % EOSINOPHILS - REL (DIFF) (BEAKER) (test jxqe=2346) 2 % NEUTROPHILS - ABS (DIFF) (BEAKER) (test adcb=9520) 3.29 K/ L 1.80-8.00 LYMPHOCYTES - ABS (DIFF) (BEAKER) (test ldfr=5079) 1.73 K/ L 1.48-4.50 MONOCYTES - ABS (DIFF) (BEAKER) (test exjr=4272) 0.27 K/ L 0.00-1.30 EOSINOPHILS - ABS (DIFF) (BEAKER) (test sjtz=8451) 0.11 K/ L 0.00-0.50 TOTAL COUNTED (BEAKER) (test qkpi=2528) 100 WBC MORPHOLOGY (BEAKER) (test dpso=401) Normal PLT MORPHOLOGY (BEAKER) (test inre=111) Normal ANISOCYTOSIS (BEAKER) (test vrpv=362) 1+ few HYPOCHROMIA (BEAKER) (test hslv=996) 3+ many PROTHROMBIN TIME/[id number] 06:37:00 Test Item Value Reference Range Comments PROTIME (BEAKER) (test sdxs=360) 21.9 sec 9.3-12.0 INR (BEAKER) (test mwck=696) 2.1 <=5.9 RECOMMENDED COUMADIN/WARFARIN INR THERAPY RANGESSTANDARD DOSE: 2.0 - 3.0 Includes: PROPHYLAXIS forvenous thrombosis, systemic embolization; TREATMENT for venous thrombosis and/or pulmonary embolus.HIGH RISK: Target INR is 2.5-3.5 for patients with mechanical heart valves.Final Information (Auto Output)Final Information (Auto Output)[id number] 04:49:00 Test Item Value Reference Range Comments PARTIAL THROMBOPLASTIN TIME (BEAKER) (test fkxw=543) > sec 23.0-35.0 Final Information (Auto Output)[id number] 16:53:00 Test Item Value Reference Range Comments PARTIAL THROMBOPLASTIN TIME (BEAKER) (test juaz=779) > sec 23.0-35.0 Final Information (Auto Output)[id number] 06:08:00 Test Item Value Reference Range Comments PARTIAL THROMBOPLASTIN TIME (BEAKER) (test 116.2 sec 23.0-35.0 bwia=981) Final Information (Auto Output)PROTHROMBIN TIME/[id number] 06:01:00 Test Item Value Reference Range Comments PROTIME (BEAKER) (test pois=219) 15.9 sec 9.3-12.0 INR (BEAKER) (test fgll=208) 1.5 <=5.9 RECOMMENDED COUMADIN/WARFARIN INR THERAPY RANGESSTANDARD DOSE: 2.0 - 3.0 Includes: PROPHYLAXIS forvenous thrombosis, systemic embolization; TREATMENT for venous thrombosis and/or pulmonary embolus.HIGH RISK: Target INR is 2.5-3.5 for patients with mechanical heart valves.Final Information (Auto Output)Final Information (Auto Output)[id number] 19:40:00 Test Item Value Reference Range Comments PARTIAL THROMBOPLASTIN TIME (BEAKER) (test 67.2 sec 23.0-35.0 gxpe=291) Final Information (Auto Output)[id number] 10:46:00 Test Item Value Reference Range Comments PARTIAL THROMBOPLASTIN TIME (BEAKER) (test 63.5 sec 23.0-35.0 ptod=922) Final Information (Auto Output)CBC W/PLT COUNT & AUTO [id number] 06:53:00 Test Item Value Reference Range Comments WHITE BLOOD CELL COUNT (BEAKER) (test vntt=919) 6.3 K/ L 4.0-10.0 RED BLOOD CELL COUNT (BEAKER) (test acdc=829) 3.98 M/ L 4.20-5.80 HEMOGLOBIN (BEAKER) (test wzao=222) 9.2 GM/DL 13.0-16.8 HEMATOCRIT (BEAKER) (test wdkx=520) 29.6 % 40.0-50.0 MEAN CORPUSCULAR VOLUME (BEAKER) (test gmhs=872) 74.3 fL 82.0-98.0 MEAN CORPUSCULAR HEMOGLOBIN (BEAKER) (test 23.1 pg 27.0-33.0 mlqm=802) MEAN CORPUSCULAR HEMOGLOBIN CONC (BEAKER) (test 31.1 GM/DL 32.0-36.0 ffbq=215) RED CELL DISTRIBUTION WIDTH (BEAKER) (test 23.2 % 10.3-14.2 yvxf=468) PLATELET COUNT (BEAKER) (test xgro=885) 356 K/CU MM 150-430 MEAN PLATELET VOLUME (BEAKER) (test xsab=105) 7.3 fL 6.5-10.5 NUCLEATED RED BLOOD CELLS (BEAKER) (test 0 /100 WBC 0-0 rngn=986) NEUTROPHILS RELATIVE PERCENT (BEAKER) (test 49 % jqee=777) LYMPHOCYTES RELATIVE PERCENT (BEAKER) (test 36 % cpjj=046) MONOCYTES RELATIVE PERCENT (BEAKER) (test 12 % kpjp=451) EOSINOPHILS RELATIVE PERCENT (BEAKER) (test 3 % negj=101) BASOPHILS RELATIVE PERCENT (BEAKER) (test 0 % nvex=991) NEUTROPHILS ABSOLUTE COUNT (BEAKER) (test 3.10 K/ L 1.80-8.00 vtyk=816) LYMPHOCYTES ABSOLUTE COUNT (BEAKER) (test 2.30 K/ L 1.48-4.50 kbts=656) MONOCYTES ABSOLUTE COUNT (BEAKER) (test 0.80 K/ L 0.00-1.30 xyji=845) EOSINOPHILS ABSOLUTE COUNT (BEAKER) (test 0.20 K/ L 0.00-0.50 wmeb=156) BASOPHILS ABSOLUTE COUNT (BEAKER) (test 0.00 K/ L 0.00-0.20 nwrm=899) (MANUAL DIFFERENTIAL)2018-04-24 06:53:00 Test Item Value Reference Range Comments TOTAL COUNTED (BEAKER) (test hrmf=7780) WBC MORPHOLOGY (BEAKER) (test mdlq=040) Normal PLT MORPHOLOGY (BEAKER) (test uicf=685) Normal ANISOCYTOSIS (BEAKER) (test mavh=261) 2+ moderate BASOPHILIC STIPPLING (BEAKER) (test myoj=418) Present HYPOCHROMIA (BEAKER) (test yzpj=411) 2+ moderate MACROCYTES (BEAKER) (test fmag=860) 1+ few MICROCYTES (BEAKER) (test hkpt=416) 1+ few POLYCHROMATOPHILLIC RBCS(BEAKER) (test ktef=154) 1+ few PROTHROMBIN TIME/[id number] 05:46:00 Test Item Value Reference Range Comments PROTIME (BEAKER) (test twcw=512) 14.5 sec 9.3-12.0 INR (BEAKER) (test ewhv=200) 1.4 <=5.9 RECOMMENDED COUMADIN/WARFARIN INR THERAPY RANGESSTANDARD DOSE: 2.0 - 3.0 Includes: PROPHYLAXIS forvenous thrombosis, systemic embolization; TREATMENT for venous thrombosis and/or pulmonary embolus.HIGH RISK: Target INR is 2.5-3.5 for patients with mechanical heart valves.Final Information (Auto Output)Final Information (Auto Output)[id number] 01:17:00 Test Item Value Reference Range Comments PARTIAL THROMBOPLASTIN TIME (BEAKER) (test 71.8 sec 23.0-35.0 vyxz=069) Final Information (Auto Output)[id number] 15:40:00 Test Item Value Reference Range Comments PARTIAL THROMBOPLASTIN TIME (BEAKER) (test 34.8 sec 23.0-35.0 gjwt=982) Final Information (Auto Output)PROTHROMBIN TIME/[id number] 06:10:00 Test Item Value Reference Range Comments PROTIME (BEAKER) (test mjri=385) 12.2 sec 9.3-12.0 INR (BEAKER) (test tdow=094) 1.1 <=5.9 RECOMMENDED COUMADIN/WARFARIN INR THERAPY RANGESSTANDARD DOSE: 2.0 - 3.0 Includes: PROPHYLAXIS forvenous thrombosis, systemic embolization; TREATMENT for venous thrombosis and/or pulmonary embolus.HIGH RISK: Target INR is 2.5-3.5 for patients with mechanical heart valves.Final Information (Auto Output)Final Information (Auto Output)[id number] 06:10:00 Test Item Value Reference Range Comments PARTIAL THROMBOPLASTIN TIME (BEAKER) (test 36.3 sec 23.0-35.0 xatm=128) Final Information (Auto Output)[id number] 20:01:00 Test Item Value Reference Range Comments PARTIAL THROMBOPLASTIN TIME (BEAKER) (test 122.6 sec 23.0-35.0 qxfu=902) Final Information (Auto Output)PROTHROMBIN TIME/[id number] 12:53:00 Test Item Value Reference Range Comments PROTIME (BEAKER) (test ypaq=302) 12.6 sec 9.3-12.0 INR (BEAKER) (test ygoq=049) 1.2 <=5.9 RECOMMENDED COUMADIN/WARFARIN INR THERAPY RANGESSTANDARD DOSE: 2.0 - 3.0 Includes: PROPHYLAXIS forvenous thrombosis, systemic embolization; TREATMENT for venous thrombosis and/or pulmonary embolus.HIGH RISK: Target INR is 2.5-3.5 for patients with mechanical heart valves.Final Information (Auto Output)Final Information (Auto Output)PROTEIN ELECTROPHORESIS, [id number] 12:15:00 Test Item Value Reference Range Comments ALBUMIN FRACTION (BEAKER) 3.5 g/dL 3.5-5.5 (test luhx=671) ALPHA 1 FRACTION (BEAKER) 0.2 g/dL 0.2-0.4 (test bvbz=196) ALPHA 2 FRACTION (BEAKER) 0.6 g/dL 0.5-0.9 (test fpsd=077) BETA FRACTION (BEAKER) (test 1.1 g/dL 0.6-1.1 msdt=384) GAMMA GLOBULIN FRACTION 0.8 g/dL 0.7-1.7 (BEAKER) (test uydd=813) INTERPRETATION-119 (BEAKER) All fractions present in (test pcuz=1669) expected distribution. No monoclonal bands detected. [id number] (BEAKER) Annmarie Thomas MD (test yezj=0480) (electronic signature) PROTEIN TOTAL SERUM, SPEP 6.3 gm/dL 6.0-8.3 (BEAKER) (test kjew=2627) CBC W/PLT COUNT & AUTO [id number] 11:59:00 Test Item Value Reference Range Comments WHITE BLOOD CELL COUNT (BEAKER) (test jeom=766) 6.4 K/ L 4.0-10.0 RED BLOOD CELL COUNT (BEAKER) (test xuhf=757) 3.87 M/ L 4.20-5.80 HEMOGLOBIN (BEAKER) (test vlcs=921) 8.8 GM/DL 13.0-16.8 HEMATOCRIT (BEAKER) (test rgul=620) 28.3 % 40.0-50.0 MEAN CORPUSCULAR VOLUME (BEAKER) (test bblh=021) 72.9 fL 82.0-98.0 MEAN CORPUSCULAR HEMOGLOBIN (BEAKER) (test 22.7 pg 27.0-33.0 qnwx=096) MEAN CORPUSCULAR HEMOGLOBIN CONC (BEAKER) (test 31.1 GM/DL 32.0-36.0 ldbh=046) RED CELL DISTRIBUTION WIDTH (BEAKER) (test 22.3 % 10.3-14.2 ahil=217) PLATELET COUNT (BEAKER) (test lkrb=905) 339 K/CU MM 150-430 MEAN PLATELET VOLUME (BEAKER) (test cnxb=141) 7.0 fL 6.5-10.5 NUCLEATED RED BLOOD CELLS (BEAKER) (test 0 /100 WBC 0-0 ykiz=304) NEUTROPHILS RELATIVE PERCENT (BEAKER) (test 53 % xihm=055) LYMPHOCYTES RELATIVE PERCENT (BEAKER) (test 31 % cugc=560) MONOCYTES RELATIVE PERCENT (BEAKER) (test 13 % rldo=708) EOSINOPHILS RELATIVE PERCENT (BEAKER) (test 3 % atmo=884) BASOPHILS RELATIVE PERCENT (BEAKER) (test 0 % tqgb=817) NEUTROPHILS ABSOLUTE COUNT (BEAKER) (test 3.40 K/ L 1.80-8.00 ofxy=185) LYMPHOCYTES ABSOLUTE COUNT (BEAKER) (test 2.00 K/ L 1.48-4.50 wmlj=579) MONOCYTES ABSOLUTE COUNT (BEAKER) (test 0.80 K/ L 0.00-1.30 urbq=270) EOSINOPHILS ABSOLUTE COUNT (BEAKER) (test 0.20 K/ L 0.00-0.50 itkq=149) BASOPHILS ABSOLUTE COUNT (BEAKER) (test 0.00 K/ L 0.00-0.20 qtvl=286) (MANUAL DIFFERENTIAL)2018-04-22 11:59:00 Test Item Value Reference Range Comments TOTAL COUNTED (BEAKER) (test latg=3816) WBC MORPHOLOGY (BEAKER) (test ibmb=596) Normal PLT MORPHOLOGY (BEAKER) (test stwy=985) Normal ANISOCYTOSIS (BEAKER) (test wlxg=935) 2+ moderate HYPOCHROMIA (BEAKER) (test xdym=709) 3+ many PROTHROMBIN GENE [id number] 11:51:00 Test Item Value Reference Range Comments PROTHROMBIN/FACTOR II Negative for the [id number] (BEAKER) (test vxnr=2767) (Prothrombin/Factor II) mutation. [id number](NIMO Thomas MD ) (test bxox=1061) (electronic signature) This test is a genotyping assay which evaluates the DNA sequence at position [address]97 of the prothrombin (Factor II) gene. A [...] and its performance characteristics determined by the [facility] Pathology Department, Section of [...] (BEAKER) Negative for the R506Q (Factor (test jwtg=949) V Leiden) mutation [id number] (BEAKER) Annmarie Thomas MD (test fkhu=1264) (electronic signature) This test is a genotyping [...] developed and its performance characteristics determined bythe [facility]ology Department, Section of Molecular Pathology. It has not been cleared or approved by the U.S. Food and Drug Administration (FDA), since FDA approval is not required for clinical use of the test. Validation was done as required by the Clinical Laboratory Improvement Amendments of 1988.[id number] 10:00:00 Test Item Value Reference Range Comments PARTIAL THROMBOPLASTIN TIME (BEAKER) (test szto=999) > sec 23.0-35.0 Final Information (Auto Output)[id number] 00:43:00 Test Item Value Reference Range Comments PARTIAL THROMBOPLASTIN TIME (BEAKER) (test 81.0 sec 23.0-35.0 ocit=009) Final Information (Auto Output)[id number] 17:32:00 Test Item Value Reference Range Comments PARTIAL THROMBOPLASTIN TIME (BEAKER) (test 37.3 sec 23.0-35.0 ejau=332) Final Information (Auto Output)CBC W/PLT COUNT & AUTO [id number] 08:19:00 Test Item Value Reference Range Comments WHITE BLOOD CELL COUNT (BEAKER) (test teqe=207) 6.2 K/ L 4.0-10.0 RED BLOOD CELL COUNT (BEAKER) (test zhzd=046) 3.89 M/ L 4.20-5.80 HEMOGLOBIN (BEAKER) (test ijwe=073) 8.7 GM/DL 13.0-16.8 HEMATOCRIT (BEAKER) (test isqi=486) 27.8 % 40.0-50.0 MEAN CORPUSCULAR VOLUME (BEAKER) (test nked=648) 71.4 fL 82.0-98.0 MEAN CORPUSCULAR HEMOGLOBIN (BEAKER) (test 22.4 pg 27.0-33.0 xqix=124) MEAN CORPUSCULAR HEMOGLOBIN CONC (BEAKER) (test 31.4 GM/DL 32.0-36.0 bfhu=147) RED CELL DISTRIBUTION WIDTH (BEAKER) (test 21.7 % 10.3-14.2 xcry=039) PLATELET COUNT (BEAKER) (test ffxj=975) 347 K/CU MM 150-430 MEAN PLATELET VOLUME (BEAKER) (test hgwv=599) 7.1 fL 6.5-10.5 NUCLEATED RED BLOOD CELLS (BEAKER) (test 0 /100 WBC 0-0 gmge=856) NEUTROPHILS RELATIVE PERCENT (BEAKER) (test 52 % kbty=272) LYMPHOCYTES RELATIVE PERCENT (BEAKER) (test 34 % rydw=420) MONOCYTES RELATIVE PERCENT (BEAKER) (test 10 % irxa=431) EOSINOPHILS RELATIVE PERCENT (BEAKER) (test 3 % uapf=386) BASOPHILS RELATIVE PERCENT (BEAKER) (test 0 % rthq=376) NEUTROPHILS ABSOLUTE COUNT (BEAKER) (test 3.20 K/ L 1.80-8.00 mstf=382) LYMPHOCYTES ABSOLUTE COUNT (BEAKER) (test 2.10 K/ L 1.48-4.50 awov=463) MONOCYTES ABSOLUTE COUNT (BEAKER) (test 0.60 K/ L 0.00-1.30 qwio=263) EOSINOPHILS ABSOLUTE COUNT (BEAKER) (test 0.20 K/ L 0.00-0.50 dqvz=677) BASOPHILS ABSOLUTE COUNT (BEAKER) (test 0.00 K/ L 0.00-0.20 icds=862) (MANUAL DIFFERENTIAL)2018-04-21 08:19:00 Test Item Value Reference Range Comments TOTAL COUNTED (BEAKER) (test smkk=9596) WBC MORPHOLOGY (BEAKER) (test rgrl=877) Normal PLT MORPHOLOGY (BEAKER) (test dfzo=867) Normal ANISOCYTOSIS (BEAKER) (test emlr=315) 2+ moderate HYPOCHROMIA (BEAKER) (test vcuw=664) 2+ moderate MICROCYTES (BEAKER) (test bjtm=691) 1+ few POLYCHROMATOPHILLIC RBCS(BEAKER) (test izpa=482) 1+ few BASIC METABOLIC [id number] 08:00:00 Test Item Value Reference Range Comments SODIUM (BEAKER) (test 141 meq/L 135-148 hdyj=457) POTASSIUM (BEAKER) (test 3.6 meq/L 3.6-5.5 onjr=374) CHLORIDE (BEAKER) (test 109 meq/L 98-106 ljuw=222) CO2 (BEAKER) (test 24 meq/L 20-29 adxw=931) BLOOD UREA NITROGEN 9 mg/dL 10-26 (BEAKER) (test lvhp=825) CREATININE (BEAKER) (test 0.76 mg/dL 0.50-1.20 zpvh=945) GLUCOSE RANDOM (BEAKER) 86 mg/dL 70-110 (test hymq=289) CALCIUM (BEAKER) (test 9.0 mg/dL 8.5-10.5 kzkg=298) EGFR (BEAKER) (test 110 mL/min/1.73 sq m ESTIMATED GFR IS NOT eypq=4864) ACCURATE CREATININE CLEARANCE IN PREDICTING GLOMERULAR FILTRATION RATE. ESTIMATED GFR IS NOT APPLICABLE FOR DIALYSIS PATIENTS. PROTHROMBIN TIME/[id number] 07:55:00 Test Item Value Reference Range Comments PROTIME (BEAKER) (test lvxw=863) 11.4 sec 9.3-12.0 INR (BEAKER) (test lhba=889) 1.1 <=5.9 RECOMMENDED COUMADIN/WARFARIN INR THERAPY RANGESSTANDARD DOSE: 2.0 - 3.0 Includes: PROPHYLAXIS forvenous thrombosis, systemic embolization; TREATMENT for venous thrombosis and/or pulmonary embolus.HIGH RISK: Target INR is 2.5-3.5 for patients with mechanical heart valves.Final Information (Auto Output)Final Information (Auto Output)[id number] 07:52:00 Test Item Value Reference Range Comments PARTIAL THROMBOPLASTIN TIME (BEAKER) (test 71.6 sec 23.0-35.0 qsix=398) Final Information (Auto Output)[id number] 22:28:00 Test Item Value Reference Range Comments PARTIAL THROMBOPLASTIN TIME (BEAKER) (test 119.3 sec 23.0-35.0 fwee=007) Final Information (Auto Output)CBC (HEMOGRAM ONLY)2018-04-20 21:32:00 Test Item Value Reference Range Comments WHITE BLOOD CELL COUNT (BEAKER) (test aliz=383) 7.0 K/ L 4.0-10.0 RED BLOOD CELL COUNT (BEAKER) (test xlrj=790) 3.89 M/ L 4.20-5.80 HEMOGLOBIN (BEAKER) (test illy=342) 8.8 GM/DL 13.0-16.8 HEMATOCRIT (BEAKER) (test qzxw=792) 27.6 % 40.0-50.0 MEAN CORPUSCULAR VOLUME (BEAKER) (test xogb=393) 70.8 fL 82.0-98.0 MEAN CORPUSCULAR HEMOGLOBIN (BEAKER) (test 22.6 pg 27.0-33.0 iibg=009) MEAN CORPUSCULAR HEMOGLOBIN CONC (BEAKER) (test 32.0 GM/DL 32.0-36.0 bkxo=642) RED CELL DISTRIBUTION WIDTH (BEAKER) (test 20.0 % 10.3-14.2 yhvd=335) PLATELET COUNT (BEAKER) (test ccmx=294) 360 K/CU MM 150-430 MEAN PLATELET VOLUME (BEAKER) (test oyvz=449) 7.4 fL 6.5-10.5 [id number] 12:43:00 Test Item Value Reference Range Comments PARTIAL THROMBOPLASTIN TIME (BEAKER) (test 72.2 sec 23.0-35.0 qszc=234) Final Information (Auto Output)CARDIOLIPIN ANTIBODIES, IGG AND [id number] 12: 16:00 Test Item Value Reference Range Comments ANTICARDIOLIPIN IGG ANTIBODY (BEAKER) (test < GPL <20.0 thjn=919) ANTICARDIOLIPIN IGM ANTIBODY (BEAKER) (test 0.5 MPL <20.0 tnub=390) Anticardiolipin IgG Result Interpretation: <20.0 GPL Normal>/=20.0 GPL PositiveAnticardiolipin IgM Result Interpretation: <20.0 MPL Normal>/= 20.0 MPL PositiveCBC W/PLT COUNT & AUTO [id number] 08:58:00 Test Item Value Reference Range Comments WHITE BLOOD CELL COUNT (BEAKER) (test xpnp=938) 6.4 K/ L 4.0-10.0 RED BLOOD CELL COUNT (BEAKER) (test pbjf=047) 4.00 M/ L 4.20-5.80 HEMOGLOBIN (BEAKER) (test tfvh=598) 9.0 GM/DL 13.0-16.8 HEMATOCRIT (BEAKER) (test pahj=912) 28.6 % 40.0-50.0 MEAN CORPUSCULAR VOLUME (BEAKER) (test ekho=487) 71.7 fL 82.0-98.0 MEAN CORPUSCULAR HEMOGLOBIN (BEAKER) (test 22.5 pg 27.0-33.0 tpkg=374) MEAN CORPUSCULAR HEMOGLOBIN CONC (BEAKER) (test 31.4 GM/DL 32.0-36.0 iqmx=199) RED CELL DISTRIBUTION WIDTH (BEAKER) (test 21.7 % 10.3-14.2 igvz=794) PLATELET COUNT (BEAKER) (test dpah=284) 355 K/CU MM 150-430 MEAN PLATELET VOLUME (BEAKER) (test myhn=801) 7.1 fL 6.5-10.5 NUCLEATED RED BLOOD CELLS (BEAKER) (test 0 /100 WBC 0-0 juuw=499) NEUTROPHILS RELATIVE PERCENT (BEAKER) (test 48 % indm=299) LYMPHOCYTES RELATIVE PERCENT (BEAKER) (test 36 % bwrl=847) MONOCYTES RELATIVE PERCENT (BEAKER) (test 12 % hmwk=133) EOSINOPHILS RELATIVE PERCENT (BEAKER) (test 4 % kfdk=896) BASOPHILS RELATIVE PERCENT (BEAKER) (test 0 % kpha=631) NEUTROPHILS ABSOLUTE COUNT (BEAKER) (test 3.10 K/ L 1.80-8.00 muzo=396) LYMPHOCYTES ABSOLUTE COUNT (BEAKER) (test 2.30 K/ L 1.48-4.50 ndhf=352) MONOCYTES ABSOLUTE COUNT (BEAKER) (test 0.80 K/ L 0.00-1.30 svif=996) EOSINOPHILS ABSOLUTE COUNT (BEAKER) (test 0.20 K/ L 0.00-0.50 wcor=024) BASOPHILS ABSOLUTE COUNT (BEAKER) (test 0.00 K/ L 0.00-0.20 mnhq=610) (MANUAL DIFFERENTIAL)2018-04-20 08:58:00 Test Item Value Reference Range Comments TOTAL COUNTED (BEAKER) (test cpft=1638) WBC MORPHOLOGY (BEAKER) (test gpjv=103) Normal PLT MORPHOLOGY (BEAKER) (test dwgz=647) Normal ANISOCYTOSIS (BEAKER) (test gcjc=981) 1+ few HYPOCHROMIA (BEAKER) (test nlia=356) 1+ few POIKILOCYTES (BEAKER) (test zmcy=871) 1+ few POLYCHROMATOPHILLIC RBCS(BEAKER) (test wbps=736) 1+ few BASIC METABOLIC [id number] 08:26:00 Test Item Value Reference Range Comments SODIUM (BEAKER) (test 140 meq/L 135-148 hnni=595) POTASSIUM (BEAKER) (test 3.9 meq/L 3.6-5.5 kbhh=696) CHLORIDE (BEAKER) (test 107 meq/L 98-106 cnxd=483) CO2 (BEAKER) (test 24 meq/L 20-29 iiot=088) BLOOD UREA NITROGEN 12 mg/dL 10-26 (BEAKER) (test vshe=812) CREATININE (BEAKER) (test 0.76 mg/dL 0.50-1.20 uock=909) GLUCOSE RANDOM (BEAKER) 92 mg/dL 70-110 (test uzfj=737) CALCIUM (BEAKER) (test 8.9 mg/dL 8.5-10.5 gbpj=705) EGFR (BEAKER) (test 110 mL/min/1.73 sq m ESTIMATED GFR IS NOT ehze=7181) ACCURATE CREATININE CLEARANCE IN PREDICTING GLOMERULAR FILTRATION RATE. ESTIMATED GFR IS NOT APPLICABLE FOR DIALYSIS PATIENTS. PROTHROMBIN TIME/[id number] 08:16:00 Test Item Value Reference Range Comments PROTIME (BEAKER) (test dcqh=570) 10.6 sec 9.3-12.0 INR (BEAKER) (test ghlg=259) 1.0 <=5.9 RECOMMENDED COUMADIN/WARFARIN INR THERAPY RANGESSTANDARD DOSE: 2.0 - 3.0 Includes: PROPHYLAXIS forvenous thrombosis, systemic embolization; TREATMENT for venous thrombosis and/or pulmonary embolus.HIGH RISK: Target INR is 2.5-3.5 for patients with mechanical heart valves.Final Information (Auto Output)Final Information (Auto Output)[id number] 08:16:00 Test Item Value Reference Range Comments D-DIMER QUANTITATIVE (BEAKER) (test mlbj=758) 0.93 mg/L <0.50 REGARDING D-DIMER RESULTS: The 98% NPV (Negative Predictive Value) for DVT/PE exclusion is 0.50 mg/LFEU as suggested by the educational psychology teacher and as approved by the FDA.Final Information (Auto Output)[id number] 02:51:00 Test Item Value Reference Range Comments PARTIAL THROMBOPLASTIN TIME (BEAKER) (test woih=158) > sec 23.0-35.0 Final Information (Auto Output)[id number] 17:54:00 Test Item Value Reference Range Comments PARTIAL THROMBOPLASTIN TIME (BEAKER) (test 72.2 sec 23.0-35.0 basq=925) Final Information (Auto Output)ANTITHROMBIN [id number] 11:29:00 Test Item Value Reference Range Comments ANTITHROMBIN III ACTIVITY (BEAKER) (test jleu=693) 81.0 % 80.0-120.0 CBC W/PLT COUNT & AUTO [id number] 10:34:00 Test Item Value Reference Range Comments WHITE BLOOD CELL COUNT (BEAKER) (test wvpf=796) 6.6 K/ L 4.0-10.0 RED BLOOD CELL COUNT (BEAKER) (test tumo=348) 3.93 M/ L 4.20-5.80 HEMOGLOBIN (BEAKER) (test pwfh=377) 8.9 GM/DL 13.0-16.8 HEMATOCRIT (BEAKER) (test zcit=206) 28.3 % 40.0-50.0 MEAN CORPUSCULAR VOLUME (BEAKER) (test crru=640) 71.9 fL 82.0-98.0 MEAN CORPUSCULAR HEMOGLOBIN (BEAKER) (test 22.5 pg 27.0-33.0 xmdi=666) MEAN CORPUSCULAR HEMOGLOBIN CONC (BEAKER) (test 31.3 GM/DL 32.0-36.0 mras=923) RED CELL DISTRIBUTION WIDTH (BEAKER) (test 21.0 % 10.3-14.2 iuwk=627) PLATELET COUNT (BEAKER) (test eais=120) 339 K/CU MM 150-430 MEAN PLATELET VOLUME (BEAKER) (test flii=738) 7.2 fL 6.5-10.5 NUCLEATED RED BLOOD CELLS (BEAKER) (test 0 /100 WBC 0-0 ujya=983) NEUTROPHILS RELATIVE PERCENT (BEAKER) (test 52 % gkdn=147) LYMPHOCYTES RELATIVE PERCENT (BEAKER) (test 32 % jbop=073) MONOCYTES RELATIVE PERCENT (BEAKER) (test 11 % gypp=760) EOSINOPHILS RELATIVE PERCENT (BEAKER) (test 4 % xqbb=979) BASOPHILS RELATIVE PERCENT (BEAKER) (test 0 % baxc=306) NEUTROPHILS ABSOLUTE COUNT (BEAKER) (test 3.40 K/ L 1.80-8.00 nsiv=793) LYMPHOCYTES ABSOLUTE COUNT (BEAKER) (test 2.10 K/ L 1.48-4.50 mkzr=534) MONOCYTES ABSOLUTE COUNT (BEAKER) (test 0.70 K/ L 0.00-1.30 gbiu=868) EOSINOPHILS ABSOLUTE COUNT (BEAKER) (test 0.30 K/ L 0.00-0.50 hooe=498) BASOPHILS ABSOLUTE COUNT (BEAKER) (test 0.00 K/ L 0.00-0.20 iraf=343) (MANUAL DIFFERENTIAL)[id number] 10:34:00 Test Item Value Reference Range Comments TOTAL COUNTED (BEAKER) (test vikc=8303) WBC MORPHOLOGY (BEAKER) (test wahz=205) Normal PLT MORPHOLOGY (BEAKER) (test mnnh=686) Normal ANISOCYTOSIS (BEAKER) (test hgqh=579) 3+ many HYPOCHROMIA (BEAKER) (test xrzw=937) 2+ moderate MICROCYTES (BEAKER) (test cccj=901) 1+ few TROPONIN [id number] 09:42:00 Test Item Value Reference Range Comments TROPONIN I (BEAKER) (test wwoo=527) < ng/mL 0.00-0.15 Troponin I (TnI) levels [...] acute neurological disease, and persistent tachyarrhythmia.BASIC METABOLIC [id number] 09:34:00 Test Item Value Reference Range Comments SODIUM (BEAKER) (test 140 meq/L 135-148 rkgx=693) POTASSIUM (BEAKER) (test 3.8 meq/L 3.6-5.5 rqdt=133) CHLORIDE (BEAKER) (test 107 meq/L 98-106 lmgf=203) CO2 (BEAKER) (test 25 meq/L 20-29 jkca=355) BLOOD UREA NITROGEN 12 mg/dL 10-26 (BEAKER) (test vnhk=227) CREATININE (BEAKER) (test 0.83 mg/dL 0.50-1.20 aosx=710) GLUCOSE RANDOM (BEAKER) 106 mg/dL 70-110 (test gxwc=941) CALCIUM (BEAKER) (test 9.1 mg/dL 8.5-10.5 cjym=615) EGFR (BEAKER) (test 99 mL/min/1.73 sq m ESTIMATED GFR IS NOT urpy=0307) ACCURATE CREATININE CLEARANCE IN PREDICTING GLOMERULAR FILTRATION RATE. ESTIMATED GFR IS NOT APPLICABLE FOR DIALYSIS PATIENTS. PT/[id number] 05:06:00 Test Item Value Reference Range Comments PROTIME (BEAKER) (test jrve=135) 10.0 sec 9.3-12.0 INR (BEAKER) (test kdpu=263) 0.9 <=5.9 PARTIAL THROMBOPLASTIN TIME (BEAKER) (test 26.5 sec 23.0-35.0 wrup=800) RECOMMENDED COUMADIN/WARFARIN INR THERAPY RANGESSTANDARD DOSE: 2.0 - 3.0 Includes: PROPHYLAXIS forvenous thrombosis, systemic embolization; TREATMENT for venous thrombosis and/or pulmonary embolus.HIGH RISK: Target INR is 2.5-3.5 for patients with mechanical heart valves.Final Information (Auto Output)Final Information (Auto Output)Final Information (Auto Output)TROPONIN [id number] 20: 04:00 Test Item Value Reference Range Comments TROPONIN I (BEAKER) (test uduv=515) < ng/mL 0.00-0.15 Troponin I (TnI) levels [...] failure, acidosis, acute neurological disease, and persistent tachyarrhythmia.[id number] 20:01:00 Test Item Value Reference Range Comments HOMOCYSTEINE (BEAKER) (test cgkx=035) 6.1 umol/L 5.1-15.4 VITAMIN B12 AND [id number] 18:10:00 Test Item Value Reference Range Comments VITAMIN B12 (BEAKER) (test buqr=300) 497 pg/mL 213-816 FOLATE (BEAKER) (test zxow=062) 6.5 ng/mL >=7.0 IRON, TIBC, % SAT. (WITHOUT FERRITIN)2018-04-18 17:43:00 Test Item Value Reference Range Comments IRON (BEAKER) (test eslf=664) 16 ug/dL 40-160 TOTAL IRON BINDING CAPACITY (BEAKER) (test 468 ug/dL 250-450 luag=714) IRON % SATURATION (2) (BEAKER) (test zgid=7588) 3 % 20-55 PT/[id number] 13:31:00 Test Item Value Reference Range Comments PROTIME (BEAKER) (test ukzr=385) 10.9 sec 9.3-12.0 INR (BEAKER) (test nxmf=521) 1.0 <=5.9 PARTIAL THROMBOPLASTIN TIME (BEAKER) (test 131.9 sec 23.0-35.0 zubx=105) RECOMMENDED COUMADIN/WARFARIN INR THERAPY RANGESSTANDARD DOSE: 2.0 - 3.0 Includes: PROPHYLAXIS forvenous thrombosis, systemic embolization; TREATMENT for venous thrombosis and/or pulmonary embolus.HIGH RISK: Target INR is 2.5-3.5 for patients with mechanical heart valves.Final Information (Auto Output)Final Information (Auto Output)Final Information (Auto Output)PATIENT ON BLOOD THINNER PER [facility] WRIGHT [id number] DOPPLER LEGS, [id number] 12:31: 00Reason for exam:->PEFINAL REPORT History: Lower [...] in the bilateral lower extremities. Signed: Tremayne Tapiaeport Verified Date/Time: 04/18/2018 12:31:58 Reading Location: [facility] Radiology Reading Room Electronically signed by: TREMAYNE TAPIA M.D. on 06/2018 12:31 [id number] 12:28:00 Test Item Value Reference Range Comments FERRITIN (BEAKER) (test vgwj=773) 8 ng/mL 22-322 LACTATE DEHYDROGENASE (LDH)2018-04-18 11:27:00 Test Item Value Reference Range Comments LACTATE DEHYDROGENASE (BEAKER) (test hxva=960) 174 U/L 107-206 RETICULOCYTE [id number] 11:11:00 Test Item Value Reference Range Comments RETICULOCYTE COUNT PCT (BEAKER) (test vftv=227) 1.5 % 0.4-2.9 TROPONIN [id number] 06:08:00 Test Item Value Reference Range Comments TROPONIN I (BEAKER) (test wsfu=843) < ng/mL 0.00-0.15 Troponin I (TnI) levels [...] acute neurological disease, and persistent tachyarrhythmia.BASIC METABOLIC [id number] 06:00:00 Test Item Value Reference Range Comments SODIUM (BEAKER) (test 138 meq/L 135-148 wuyq=003) POTASSIUM (BEAKER) (test 3.7 meq/L 3.6-5.5 rrml=385) CHLORIDE (BEAKER) (test 107 meq/L 98-106 pxos=944) CO2 (BEAKER) (test 24 meq/L 20-29 vcwf=825) BLOOD UREA NITROGEN 8 mg/dL 10-26 (BEAKER) (test lrow=862) CREATININE (BEAKER) (test 0.84 mg/dL 0.50-1.20 oqpu=593) GLUCOSE RANDOM (BEAKER) 86 mg/dL 70-110 (test djyu=528) CALCIUM (BEAKER) (test 8.2 mg/dL 8.5-10.5 ifxz=411) EGFR (BEAKER) (test 98 mL/min/1.73 sq m ESTIMATED GFR IS NOT mfol=9648) ACCURATE CREATININE CLEARANCE IN PREDICTING GLOMERULAR FILTRATION RATE. ESTIMATED GFR IS NOT APPLICABLE FOR DIALYSIS PATIENTS. [id number] 01:22:00 Test Item Value Reference Range Comments PARTIAL THROMBOPLASTIN TIME (BEAKER) (test 23.3 seconds 23.0-35.0 mucj=019) CBC (HEMOGRAM ONLY)2018-04-18 01:12:00 Test Item Value Reference Range Comments WHITE BLOOD CELL COUNT (BEAKER) (test qkqc=478) 7.5 K/ L 4.0-10.0 RED BLOOD CELL COUNT (BEAKER) (test hfew=504) 3.77 M/ L 4.20-5.80 HEMOGLOBIN (BEAKER) (test jhnk=340) 8.0 GM/DL 13.0-16.8 HEMATOCRIT (BEAKER) (test gzls=181) 26.3 % 40.0-50.0 MEAN CORPUSCULAR VOLUME (BEAKER) (test cyni=971) 69.7 fL 82.0-98.0 MEAN CORPUSCULAR HEMOGLOBIN (BEAKER) (test 21.2 pg 27.0-33.0 kofz=271) MEAN CORPUSCULAR HEMOGLOBIN CONC (BEAKER) (test 30.4 GM/DL 32.0-36.0 lgcl=319) RED CELL DISTRIBUTION WIDTH (BEAKER) (test 19.2 % 10.3-14.2 addf=845) PLATELET COUNT (BEAKER) (test ubxk=652) 395 K/CU MM 150-430 MEAN PLATELET VOLUME (BEAKER) (test aoiy=841) 7.6 fL 6.5-10.5 CT, CHEST WITH IV CONTRAST- PE TEST [id number] 23:21:00Reason for exam:-& gt;CHEST PAINWhat is the [...] MDReport Verified Date/Time: 04/17/2018 23:21:52 Reading Location: [address] Reading Room Electronically signed by: ERON CHAUHAN M.D. on 05/2018 11:21 PMCREATINE KINASE (CK), TOTAL AND [id number] 22:25:00 Test Item Value Reference Range Comments CREATINE KINASE TOTAL (BEAKER) (test jtsn=771) 87 U/L 40-250 CREATINE KINASE-MB (BEAKER) (test bbnh=329) 1.1 ng/mL 0.0-4.9 CREATINE KINASE-MB INDEX (BEAKER) (test bgwa=328) 1.3 % CK-MB Reference Range:<5 Normal5-10 Borderline>10 AbnormalTSH/FREE T4 IF [id number] 22:07:00 Test Item Value Reference Range Comments THYROID STIMULATING HORMONE (BEAKER) (test 0.71 uIU/mL 0.35-5.50 plbn=297) B-TYPE NATRIURETIC FACTOR (BNP)2018-04-17 21:44:00 Test Item Value Reference Range Comments B-TYPE NATRIURETIC PEPTIDE (BEAKER) (test tmfx=200) 8 pg/mL 0-100 TROPONIN [id number] 21:43:00 Test Item Value Reference Range Comments TROPONIN I (BEAKER) (test iwou=801) < ng/mL 0.00-0.15 Troponin I (TnI) levels [...] acute neurological disease, and persistent tachyarrhythmia.BASIC METABOLIC [id number] 21:39:00 Test Item Value Reference Range Comments SODIUM (BEAKER) (test 140 meq/L 135-148 xvtr=526) POTASSIUM (BEAKER) (test 3.6 meq/L 3.6-5.5 ucym=139) CHLORIDE (BEAKER) (test 106 meq/L 98-106 wfmf=168) CO2 (BEAKER) (test 21 meq/L 20-29 eoan=704) BLOOD UREA NITROGEN 7 mg/dL 10-26 (BEAKER) (test mkda=663) CREATININE (BEAKER) (test 1.00 mg/dL 0.50-1.20 oqys=420) GLUCOSE RANDOM (BEAKER) 140 mg/dL 70-110 (test ltcy=461) CALCIUM (BEAKER) (test 9.1 mg/dL 8.5-10.5 dkst=262) EGFR (BEAKER) (test 80 mL/min/1.73 sq m ESTIMATED GFR IS NOT llvb=5288) ACCURATE CREATININE CLEARANCE IN PREDICTING GLOMERULAR FILTRATION RATE. ESTIMATED GFR IS NOT APPLICABLE FOR DIALYSIS PATIENTS. PROTHROMBIN TIME/[id number] 21:28:00 Test Item Value Reference Range Comments PROTIME (BEAKER) (test lwnd=620) 10.1 sec 9.3-12.0 INR (BEAKER) (test kgud=010) 0.9 <=5.9 RECOMMENDED COUMADIN/WARFARIN INR THERAPY RANGESSTANDARD DOSE: 2.0 - 3.0 Includes: PROPHYLAXIS forvenous thrombosis, systemic embolization; TREATMENT for venous thrombosis and/or pulmonary embolus.HIGH RISK: Target INR is 2.5-3.5 for patients with mechanical heart valves.Final Information (Auto Output)Final Information (Auto Output)CBC W/PLT COUNT & AUTO [id number] 21:25 :00 Test Item Value Reference Range Comments WHITE BLOOD CELL COUNT (BEAKER) (test nltl=938) 5.7 K/ L 4.0-10.0 RED BLOOD CELL COUNT (BEAKER) (test uoie=177) 3.76 M/ L 4.20-5.80 HEMOGLOBIN (BEAKER) (test cnjc=197) 7.9 GM/DL 13.0-16.8 HEMATOCRIT (BEAKER) (test andx=425) 25.9 % 40.0-50.0 MEAN CORPUSCULAR VOLUME (BEAKER) (test ffid=658) 69.0 fL 82.0-98.0 MEAN CORPUSCULAR HEMOGLOBIN (BEAKER) (test 21.0 pg 27.0-33.0 swpc=101) MEAN CORPUSCULAR HEMOGLOBIN CONC (BEAKER) (test 30.4 GM/DL 32.0-36.0 rsfo=606) RED CELL DISTRIBUTION WIDTH (BEAKER) (test 20.9 % 10.3-14.2 bgeq=354) PLATELET COUNT (BEAKER) (test flzj=275) 411 K/CU MM 150-430 MEAN PLATELET VOLUME (BEAKER) (test xbtk=802) 6.9 fL 6.5-10.5 NUCLEATED RED BLOOD CELLS (BEAKER) (test 0 /100 WBC 0-0 dvft=672) NEUTROPHILS RELATIVE PERCENT (BEAKER) (test 49 % znoz=913) LYMPHOCYTES RELATIVE PERCENT (BEAKER) (test 35 % cfxr=697) MONOCYTES RELATIVE PERCENT (BEAKER) (test 12 % najj=870) EOSINOPHILS RELATIVE PERCENT (BEAKER) (test 4 % zmls=157) BASOPHILS RELATIVE PERCENT (BEAKER) (test 0 % tiyb=714) NEUTROPHILS ABSOLUTE COUNT (BEAKER) (test 2.80 K/ L 1.80-8.00 lwex=178) LYMPHOCYTES ABSOLUTE COUNT (BEAKER) (test 2.00 K/ L 1.48-4.50 gfep=880) MONOCYTES ABSOLUTE COUNT (BEAKER) (test 0.70 K/ L 0.00-1.30 jsnv=308) EOSINOPHILS ABSOLUTE COUNT (BEAKER) (test 0.20 K/ L 0.00-0.50 dpro=263) BASOPHILS ABSOLUTE COUNT (BEAKER) (test 0.00 K/ L 0.00-0.20 pbun=108) ERYTHROCYTE SED [id number] 22:37:00 Test Item Value Reference Range Comments [...] old=0-20 mm/hr Males 50-999 years old=0-25 mm/hr [id number] 22:06:00 Test Item Value Reference Range Comments [...] mL/min/1.73m\\S\\2 EGFR if Non- >60 Estimated Glomerular Macedonian (test mL/min/1.73m\\S\\2 Filtration Rate (eGFR) code=EGFRNA) Reference [...] chronic kidney failure. XR CHEST AP/PA 1 [id number] 22:01:15Procedure: AP View ChestOrder date: 2017 9:16 PMOrdering Provider: ILIANA Robertsoninical Indication: chest pain, Chest painComparison: January 29, 2018Findings:Stable right-sided Port-A- Cath.Cardiomediastinal silhouette is within normal limits.The lungs are clear. No large pleural effusions or pneumothorax. Osseousstructures are nonacute.No evidence of active tuberculosis.Impression:No acute cardiopulmonary process.This final report was electronically signed by Dr Cesar Beach MD 04/159:54 PMDictated By: CESAR BEACHDate: 04/15/2018 22:01D-DIMER [id number] 21:53:00 Test Item Value Reference Range Comments [...] probability of thromboembolic disease. CBC WITH AUTO [id number] 21:43:00 Test Item Value Reference Range Comments [...] 0.0-0.4 AUTO DIFFCBC W/PLT COUNT & AUTO [id number] 08:53:00 Test Item Value Reference Range Comments WHITE BLOOD CELL COUNT (BEAKER) (test ufpf=799) 6.9 K/ L 4.0-10.0 RED BLOOD CELL COUNT (BEAKER) (test eoek=507) 3.56 M/ L 4.20-5.80 HEMOGLOBIN (BEAKER) (test lmgh=266) 8.5 GM/DL 13.0-16.8 HEMATOCRIT (BEAKER) (test lxah=319) 26.5 % 40.0-50.0 MEAN CORPUSCULAR VOLUME (BEAKER) (test khth=267) 74.5 fL 82.0-98.0 MEAN CORPUSCULAR HEMOGLOBIN (BEAKER) (test 23.8 pg 27.0-33.0 yfrd=767) MEAN CORPUSCULAR HEMOGLOBIN CONC (BEAKER) (test 31.9 GM/DL 32.0-36.0 ubqg=278) RED CELL DISTRIBUTION WIDTH (BEAKER) (test 20.1 % 10.3-14.2 lwag=372) PLATELET COUNT (BEAKER) (test tebu=763) 372 K/CU MM 150-430 MEAN PLATELET VOLUME (BEAKER) (test tops=863) 6.8 fL 6.5-10.5 NUCLEATED RED BLOOD CELLS (BEAKER) (test 0 /100 WBC 0-0 rjxu=085) NEUTROPHILS RELATIVE PERCENT (BEAKER) (test 55 % szis=845) LYMPHOCYTES RELATIVE PERCENT (BEAKER) (test 30 % qglp=372) MONOCYTES RELATIVE PERCENT (BEAKER) (test 13 % shgt=204) EOSINOPHILS RELATIVE PERCENT (BEAKER) (test 2 % zuli=588) BASOPHILS RELATIVE PERCENT (BEAKER) (test 0 % aadf=664) NEUTROPHILS ABSOLUTE COUNT (BEAKER) (test 3.80 K/ L 1.80-8.00 igtg=194) LYMPHOCYTES ABSOLUTE COUNT (BEAKER) (test 2.10 K/ L 1.48-4.50 yvav=961) MONOCYTES ABSOLUTE COUNT (BEAKER) (test 0.90 K/ L 0.00-1.30 zrvq=020) EOSINOPHILS ABSOLUTE COUNT (BEAKER) (test 0.10 K/ L 0.00-0.50 ultl=716) BASOPHILS ABSOLUTE COUNT (BEAKER) (test 0.00 K/ L 0.00-0.20 hybc=654) (MANUAL DIFFERENTIAL)2018-02-01 08:53:00 Test Item Value Reference Range Comments TOTAL COUNTED (BEAKER) (test iand=5607) WBC MORPHOLOGY (BEAKER) (test tdup=403) Normal PLT MORPHOLOGY (BEAKER) (test gjcm=532) Normal ANISOCYTOSIS (BEAKER) (test zwyy=452) 2+ moderate HYPOCHROMIA (BEAKER) (test bpjf=410) 3+ many MICROCYTES (BEAKER) (test csxl=281) 1+ few TROPONIN [id number] 07:05:00 Test Item Value Reference Range Comments TROPONIN I (BEAKER) (test bcfv=994) < ng/mL 0.00-0.15 Troponin I (TnI) levels [...] acute neurological disease, and persistent tachyarrhythmia.BASIC METABOLIC [id number] 06:55:00 Test Item Value Reference Range Comments SODIUM (BEAKER) (test 140 meq/L 135-148 tinx=571) POTASSIUM (BEAKER) (test 3.8 meq/L 3.6-5.5 vsoa=585) CHLORIDE (BEAKER) (test 107 meq/L 98-106 nvcr=895) CO2 (BEAKER) (test 25 meq/L 20-29 novl=243) BLOOD UREA NITROGEN 11 mg/dL 10-26 (BEAKER) (test ilap=071) CREATININE (BEAKER) (test 0.80 mg/dL 0.50-1.20 tlyr=014) GLUCOSE RANDOM (BEAKER) 91 mg/dL 70-110 (test krzu=147) CALCIUM (BEAKER) (test 8.6 mg/dL 8.5-10.5 epxj=367) EGFR (BEAKER) (test 104 mL/min/1.73 sq m ESTIMATED GFR IS NOT oqjl=3207) ACCURATE CREATININE CLEARANCE IN PREDICTING GLOMERULAR FILTRATION RATE. ESTIMATED GFR IS NOT APPLICABLE FOR DIALYSIS PATIENTS. [id number] 06:49:00 Test Item Value Reference Range Comments MAGNESIUM (BEAKER) (test oxfz=751) 2.4 mg/dL 1.5-3.0 TROPONIN [id number] 00:03:00 Test Item Value Reference Range Comments TROPONIN I (BEAKER) (test oumm=139) < ng/mL 0.00-0.15 Troponin I (TnI) levels [...] Range Comments B-TYPE NATRIURETIC PEPTIDE (BEAKER) (test tktx=183) 5 pg/mL 0-100 LIPID [id number] 23:57:00 Test Item Value Reference Range Comments TRIGLYCERIDES (BEAKER) (test vehd=841) 53 mg/dL CHOLESTEROL (BEAKER) (test nhvs=214) 183 mg/dL HDL CHOLESTEROL (BEAKER) (test vuzn=281) 62 mg/dL LDL CHOLESTEROL CALCULATED (BEAKER) (test 110 mg/dL wpri=559) Triglyceride Reference Range: Low Risk <150 Borderline 150- 199 High Risk 200-499 Very High Risk >=500Cholesterol Reference Range: Low Risk <200 Borderline 200-239 High Risk > 240HDL Cholesterol Reference Range: Low Risk >=60 High Risk <40LDL Cholesterol Reference Range: Optimal <100 Near Optimal 100-129 Borderline 130-159 High 160-189 Very High >=190ED2 CT ANGIO CHEST W [id number] 11:04:2220 g Cathlon Above the Antecubital or higher requiredProcedure: ED2 CT ANGIO CHEST W CONTRASTOrder date: 01/29/2018 9:32 AMOrdering Provider: ITALIA ENGSClinical Indication: chest pain, tachycardiaComparison: NoneTechnique: Using a [...] AMDictated By: CESAR BEACHDate: 01/29/2018 11:04ED2 TROPONIN-I [id number] 10:56:00 Test Item Value Reference Range Comments Troponin-I (test 0.000 ng/ml 0.000-0.034 The 99th Percentile URL is 0.034 code=TROP) ng/mL. The Joint Society of Cardiology/[place] [employer] (ESC/ACC) and the National [...] 24 hours after the clinical event. ED2 [id number] 10:51:00 Test Item Value Reference Range Comments [...] Protein (test code=TP) 6.9 gm/dl 6.4-8.1 ED2 [id number] 10:51:00 Test Item Value Reference Range Comments Pro-BNP(B-Peptide) (test <15 0-125 THE METHODOLOGY FOR DETECTION OF code=PROBNP) B-NATRIURETIC PEPTIDE HAS BEEN CHANGED TO "NT pro-BNP". THE NORMAL RANGES HAVE CHANGED. PLEASE NOTE THAT RANGES ARE DEFINED BY THE AGE OF THE PATIENT. (<75 years old=0-125 pg/ml 75years and older=0-450pg/ml). VALUES ARE NOT INTERCHANGEABLE BETWEEN METHODS. 10-18-2006 ED2 [id number] 10:50:00 Test Item Value Reference Range Comments [...] fL 8.0-11.0 ED2 XR CHEST 2 PA [id number] 09:49:15Procedure: ED2 XR CHEST 2 PA LATERALOrder date: 01/29/2018 9:18 AMOrdering Provider: ITALIA RITTERMONSClinical Indication: CHEST PAIN: Pain-ChestComparison: November 14, 2017Findings:Stable ygbvq-rnpcjEkvr-C-Cath.Cardiomediastinal silhouette is within normal limits.The lungs are clear.No pleural effusion or pneumothorax. Osseous structures are nonacute.No evidence of active tuberculosis.Impression:Stable and nonacute two- view chest.This final report was electronically signed by Dr Cesar Beach MD 9:43 AMDictated By: CESAR BEACHDate: 01/29/2018 09:49CT, CHEST WITH IV CONTRAST- PE TEST [id number] 20:29:00FINAL REPORT HISTORY: chest pain COMPARISON : [...] MDReport Verified Date/Time: 01/24/2018 20:29:12 Reading Location: [facility] [id number] Consult Reading Room 08: [facility] [id number] 17:45:00 Test Item Value Reference Range Comments SODIUM (BEAKER) (test 138 meq/L 135-148 xoxu=766) POTASSIUM (BEAKER) (test 3.7 meq/L 3.6-5.5 ckua=770) CHLORIDE (BEAKER) (test 104 meq/L 98-106 kscc=530) CO2 (BEAKER) (test 24 meq/L 20-29 jayy=266) BLOOD UREA NITROGEN 18 mg/dL 10-26 (BEAKER) (test foii=839) CREATININE (BEAKER) (test 0.90 mg/dL 0.50-1.20 zrqg=048) GLUCOSE RANDOM (BEAKER) 119 mg/dL 70-110 (test hosl=213) CALCIUM (BEAKER) (test 8.5 mg/dL 8.5-10.5 chud=882) EGFR (BEAKER) (test 90 mL/min/1.73 sq m ESTIMATED GFR IS NOT nyrn=9490) ACCURATE CREATININE CLEARANCE IN PREDICTING GLOMERULAR FILTRATION RATE. ESTIMATED GFR IS NOT APPLICABLE FOR DIALYSIS PATIENTS. TROPONIN [id number] 13:54:00 Test Item Value Reference Range Comments TROPONIN I (BEAKER) (test pfrd=837) < ng/mL 0.00-0.15 Troponin I (TnI) levels [...] and persistent tachyarrhythmia.CREATINE KINASE (CK), TOTAL AND [id number] 13:53:00 Test Item Value Reference Range Comments CREATINE KINASE TOTAL (BEAKER) (test ulrq=022) 53 U/L 40-250 CREATINE KINASE-MB (BEAKER) (test gfyw=121) 0.7 ng/mL 0.0-4.9 CREATINE KINASE-MB INDEX (BEAKER) (test szub=741) 1.3 % CK-MB Reference Range:<5 Normal5-10 Borderline>10 [...] CHEST WITH CONTRAST, PE PROTOCOL: Location code: [id number] HISTORY: [id number]: Chest pain, shortness of breathCOMPARISON: 10/14/16, 03/03/16, [...] 1.2 ng/mL <=4.2 COMPREHENSIVE METABOLIC KANG *GP* [id number] 14:23:00 Test Item Value Reference Range Comments [...] VIEW*GP*2017-12-16 14:20:51Portable AP chest, 1 viewLocation Code: [id number] HISTORY: [id number]: Chest painCOMPARISON: 12/22/16COMMENT: The lungs are clear and well inflated. The costophrenic angles are sharp. Thecardiomediastinal silhouette is unremarkable. The bones are intact. Right ycsxrBahu-B-Zdqw tip overlies the superiorvena cava, unchanged.IMPRESSION: Stable [...] (test code=GMID%) 5.8 % 0.0-10.0 ED2 TROPONIN-I [id number] 14:21:00 Test Item Value Reference Range Comments Troponin-I (test 0.000 ng/ml 0.000-0.034 The 99th Percentile URL is 0.034 code=TROP) ng/mL. The Joint Society of Cardiology/[place] College [employer] Cardiology (ESC/ACC) and the National [...] clinical event. ED2 XR CHEST 2 PA [id number] 12:47:27Procedures: ED2 XR CHEST 2 PA LATERALExam [...] FRYEDate: 11/14/2017 12:47ED2 CT ANGIO CHEST W [id number] 12:46:17Procedures: ED2 CT ANGIO CHEST W CONTRASTExam [...] PMDictated By: CATHLEEN FRYEDate: 11/14/2017 12:46ED2 TROPONIN-I [id number] 11:38:00 Test Item Value Reference Range Comments Troponin-I (test 0.000 ng/ml 0.000-0.034 The 99th Percentile URL is 0.034 code=TROP) ng/mL. The Joint Society of Cardiology/[place] College [employer]iology (ESC/ACC) and the National [...] 24 hours after the clinical event. ED2 [id number] 11:38:00 Test Item Value Reference Range Comments Pro-BNP(B-Peptide) (test <15 0-125 THE METHODOLOGY FOR DETECTION OF code=PROBNP) B-NATRIURETIC PEPTIDE HAS BEEN CHANGED TO "NT pro-BNP". THE NORMAL RANGES HAVE CHANGED. PLEASE NOTE THAT RANGES ARE DEFINED BY THE AGE OF THE PATIENT. (<75 years old=0-125 pg/ml 75years and older=0-450pg/ml). VALUES ARE NOT INTERCHANGEABLE BETWEEN METHODS. 10-18-2006 ED2 [id number] 11:31:00 Test Item Value Reference Range Comments Sodium (test code=NA) 142 mmol/l 128-145 Potassium (test code=K) 3.5 mmol/l 3.6-5.1 CO2 (test code=CO2) 24 mmol/l 18-33 Chloride (test code=CL) 105 mmol/l 98-108 Glucose (test code=GLU) 196 mg/dl 73-118 Calcium (test code=CALC) 8.3 mg/dl 8.0-10.3 BUN (test code=BUN) 10 mg/dl 7-22 Creatinine (test code=CREA) 0.9 mg/dl 0.6-1.2 ED2 [id number] 11:21:00 Test Item Value Reference Range Comments [...] MPV (test code=MPV) 7.3 fL 8.0-11.0 TROPONIN [id number] 07:00:00 Test Item Value Reference Range Comments TROPONIN I (KHARIAKER) (test tegv=219) < ng/mL 0.00-0.15 Troponin I (TnI) levels [...] acidosis, acute neurological disease, and persistent tachyarrhythmia.TROPONIN [id number] 00:40:00 Test Item Value Reference Range Comments TROPONIN I (BEAKER) (test kbgm=973) < ng/mL 0.00-0.15 Troponin I (TnI) levels [...] acidosis, acute neurological disease, and persistent tachyarrhythmia.HEMOGLOBIN [id number] 19:40:00 Test Item Value Reference Range Comments HEMOGLOBIN A1C (KHARIAKER) (test erwq=470) 5.3 % 4.3-6.1 TROPONIN [id number] 18:43:00 Test Item Value Reference Range Comments TROPONIN I (BEAKER) (test ouzd=226) < ng/mL 0.00-0.15 Troponin I (TnI) levels [...] acute neurological disease, and persistent tachyarrhythmia.BASIC METABOLIC [id number] 18:24:00 Test Item Value Reference Range Comments SODIUM (BEAKER) (test 139 meq/L 135-148 rlwt=505) POTASSIUM (BEAKER) (test 3.5 meq/L 3.6-5.5 rtkj=417) CHLORIDE (BEAKER) (test 105 meq/L 98-106 vesc=224) CO2 (BEAKER) (test 26 meq/L 20-29 lzmq=166) BLOOD UREA NITROGEN 15 mg/dL 10-26 (BEAKER) (test sqkp=010) CREATININE (BEAKER) (test 1.00 mg/dL 0.50-1.20 jbyu=571) GLUCOSE RANDOM (BEAKER) 94 mg/dL 70-110 (test cxel=182) CALCIUM (BEAKER) (test 8.6 mg/dL 8.5-10.5 naay=989) EGFR (BEAKER) (test 80 mL/min/1.73 sq m ESTIMATED GFR IS NOT znbz=4057) ACCURATE CREATININE CLEARANCE IN PREDICTING GLOMERULAR FILTRATION RATE. ESTIMATED GFR IS NOT APPLICABLE FOR DIALYSIS PATIENTS. CBC W/PLT COUNT & AUTO [id number] 18:01:00 Test Item Value Reference Range Comments WHITE BLOOD CELL COUNT (BEAKER) (test mikm=596) 8.5 K/ L 4.0-10.0 RED BLOOD CELL COUNT (BEAKER) (test ysbb=964) 3.95 M/ L 4.20-5.80 HEMOGLOBIN (BEAKER) (test sgqc=694) 11.4 GM/DL 13.0-16.8 HEMATOCRIT (BEAKER) (test zick=987) 34.6 % 40.0-50.0 MEAN CORPUSCULAR VOLUME (BEAKER) (test dwrc=525) 87.4 fL 82.0-98.0 MEAN CORPUSCULAR HEMOGLOBIN (BEAKER) (test 28.9 pg 27.0-33.0 yphm=876) MEAN CORPUSCULAR HEMOGLOBIN CONC (BEAKER) (test 33.0 GM/DL 32.0-36.0 mwhc=194) RED CELL DISTRIBUTION WIDTH (BEAKER) (test 15.7 % 10.3-14.2 sxqw=055) PLATELET COUNT (BEAKER) (test ehpj=426) 368 K/CU MM 150-430 MEAN PLATELET VOLUME (BEAKER) (test qwco=076) 7.1 fL 6.5-10.5 NUCLEATED RED BLOOD CELLS (BEAKER) (test 0 /100 WBC 0-0 ibnj=008) NEUTROPHILS RELATIVE PERCENT (BEAKER) (test 50 % cfwf=154) LYMPHOCYTES RELATIVE PERCENT (BEAKER) (test 32 % nher=559) MONOCYTES RELATIVE PERCENT (BEAKER) (test 15 % rfqa=316) EOSINOPHILS RELATIVE PERCENT (BEAKER) (test 2 % fmfh=545) BASOPHILS RELATIVE PERCENT (BEAKER) (test 0 % ndve=640) NEUTROPHILS ABSOLUTE COUNT (BEAKER) (test 4.30 K/ L 1.80-8.00 zizb=978) LYMPHOCYTES ABSOLUTE COUNT (BEAKER) (test 2.70 K/ L 1.48-4.50 vbij=995) MONOCYTES ABSOLUTE COUNT (BEAKER) (test 1.30 K/ L 0.00-1.30 kmlo=260) EOSINOPHILS ABSOLUTE COUNT (BEAKER) (test 0.20 K/ L 0.00-0.50 hjdc=889) BASOPHILS ABSOLUTE COUNT (BEAKER) (test 0.00 K/ L 0.00-0.20 wojw=418) CREATINE KINASE (CK), TOTAL AND [id number] 12:25:00 Test Item Value Reference Range Comments CREATINE KINASE TOTAL (BEAKER) (test yqvj=732) 72 U/L 40-250 CREATINE KINASE-MB (BEAKER) (test yrvx=429) 0.9 ng/mL 0.0-4.9 CREATINE KINASE-MB INDEX (BEAKER) (test sweq=879) 1.3 % CK-MB Reference Range:<5 Normal5-10 Borderline>10 AbnormalTROPONIN [id number] 12:25:00 Test Item Value Reference Range Comments TROPONIN I (BEAKER) (test fehq=244) < ng/mL 0.00-0.15 Troponin I (TnI) levels [...] Comments NEUTROPHILS - REL (DIFF) (BEAKER) (test psrp=0302) 38 % LYMPHOCYTES - REL (DIFF) (BEAKER) (test royw=0057) 46 % MONOCYTES - REL (DIFF) (BEAKER) (test paio=1968) 11 % EOSINOPHILS - REL (DIFF) (BEAKER) (test xqso=1639) 5 % NEUTROPHILS - ABS (DIFF) (BEAKER) (test ybry=9034) 2.13 K/ L 1.80-8.00 LYMPHOCYTES - ABS (DIFF) (BEAKER) (test pbwo=5700) 2.58 K/ L 1.48-4.50 MONOCYTES - ABS (DIFF) (BEAKER) (test dzsi=1696) 0.62 K/ L 0.00-1.30 EOSINOPHILS - ABS (DIFF) (BEAKER) (test jhuc=6989) 0.28 K/ L 0.00-0.50 TOTAL COUNTED (BEAKER) (test zoco=3724) 100 WBC MORPHOLOGY (BEAKER) (test eiia=664) Normal PLT MORPHOLOGY (BEAKER) (test mnam=281) Normal RBC MORPHOLOGY (BEAKER) (test grtk=460) Normal CBC W/PLT COUNT & AUTO [id number] 06:02:00 Test Item Value Reference Range Comments WHITE BLOOD CELL COUNT (BEAKER) (test hhbp=206) 5.6 K/ L 4.0-10.0 RED BLOOD CELL COUNT (BEAKER) (test opti=188) 3.60 M/ L 4.20-5.80 HEMOGLOBIN (BEAKER) (test konb=477) 10.6 GM/DL 13.0-16.8 HEMATOCRIT (BEAKER) (test dvvs=946) 32.3 % 40.0-50.0 MEAN CORPUSCULAR VOLUME (BEAKER) (test ymor=167) 89.8 fL 82.0-98.0 MEAN CORPUSCULAR HEMOGLOBIN (BEAKER) (test 29.3 pg 27.0-33.0 cuow=854) MEAN CORPUSCULAR HEMOGLOBIN CONC (BEAKER) (test 32.7 GM/DL 32.0-36.0 rfnf=650) RED CELL DISTRIBUTION WIDTH (BEAKER) (test 15.9 % 10.3-14.2 jvfz=075) PLATELET COUNT (BEAKER) (test rytm=558) 312 K/CU MM 150-430 MEAN PLATELET VOLUME (BEAKER) (test hvjp=049) 6.9 fL 6.5-10.5 NUCLEATED RED BLOOD CELLS (BEAKER) (test 0 /100 WBC 0-0 vfqg=254) TROPONIN [id number] 05:22:00 Test Item Value Reference Range Comments TROPONIN I (BEAKER) (test qcqg=043) < ng/mL 0.00-0.15 Troponin I (TnI) levels [...] and persistent tachyarrhythmia.CREATINE KINASE (CK), TOTAL AND [id number] 05:21:00 Test Item Value Reference Range Comments CREATINE KINASE TOTAL (BEAKER) (test fatl=316) 71 U/L 40-250 CREATINE KINASE-MB (BEAKER) (test yvgo=298) 0.8 ng/mL 0.0-4.9 CREATINE KINASE-MB INDEX (BEAKER) (test jfbb=277) 1.1 % CK-MB Reference Range:<5 Normal5-10 Borderline>10 AbnormalCOMPREHENSIVE METABOLIC [id number] 05:14:00 Test Item Value Reference Range Comments TOTAL PROTEIN (BEAKER) 6.4 gm/dL 6.0-8.5 (test twaw=071) ALBUMIN (BEAKER) (test 3.7 g/dL 3.5-5.0 iock=5020) ALKALINE PHOSPHATASE 67 U/L 30-115 (BEAKER) (test ekpk=747) BILIRUBIN TOTAL (BEAKER) 0.3 mg/dL 0.1-1.2 (test xpbm=257) SODIUM (BEAKER) (test 141 meq/L 135-148 ubat=369) POTASSIUM (BEAKER) (test 3.7 meq/L 3.6-5.5 bwsi=448) CHLORIDE (BEAKER) (test 106 meq/L 98-106 mgfd=772) CO2 (BEAKER) (test 26 meq/L 20-29 punt=571) BLOOD UREA NITROGEN 19 mg/dL 10-26 (BEAKER) (test jgew=289) CREATININE (BEAKER) (test 1.00 mg/dL 0.50-1.20 mzly=174) GLUCOSE RANDOM (BEAKER) 104 mg/dL 70-110 (test kswd=368) CALCIUM (BEAKER) (test 9.0 mg/dL 8.5-10.5 flaw=142) AST (SGOT) (BEAKER) (test 14 U/L 5-40 phqf=282) ALT (SGPT) (BEAKER) (test 10 U/L 5-50 dwps=145) EGFR (BEAKER) (test 80 mL/min/1.73 sq m ESTIMATED GFR IS NOT uyuu=5854) ACCURATE CREATININE CLEARANCE IN PREDICTING GLOMERULAR FILTRATION RATE. ESTIMATED GFR IS NOT APPLICABLE FOR DIALYSIS PATIENTS. LIPID [id number] 05:13:00 Test Item Value Reference Range Comments TRIGLYCERIDES (BEAKER) (test xbfk=058) 159 mg/dL CHOLESTEROL (BEAKER) (test wvrp=134) 205 mg/dL HDL CHOLESTEROL (BEAKER) (test vfzv=077) 62 mg/dL LDL CHOLESTEROL CALCULATED (BEAKER) (test 111 mg/dL adnz=444) Triglyceride Reference Range: Low Risk <150 Borderline 150- 199 High Risk 200-499 Very High Risk >=500Cholesterol Reference Range: Low Risk <200 Borderline 200-239 High Risk > 240HDL Cholesterol Reference Range: Low Risk >=60 High Risk <40LDL Cholesterol Reference Range: Optimal <100 Near Optimal 100-129 Borderline 130-159 High 160-189 Very High >=190CREATINE KINASE (CK), TOTAL AND [id number] 23:03:00 Test Item Value Reference Range Comments CREATINE KINASE TOTAL (BEAKER) (test uwvm=140) 77 U/L 40-250 CREATINE KINASE-MB (BEAKER) (test vlcd=333) 0.9 ng/mL 0.0-4.9 CREATINE KINASE-MB INDEX (BEAKER) (test ssvr=699) 1.2 % CK-MB Reference Range:<5 Normal5-10 Borderline>10 AbnormalTROPONIN [id number] 23:03:00 Test Item Value Reference Range Comments TROPONIN I (BEAKER) (test ijoj=722) < ng/mL 0.00-0.15 Troponin I (TnI) levels [...] IU/L 39-308 XR CHEST 1 VIEW PORTABLE *WW*2017-02-21 04:12:23CHEST AP viewLOCATION: [id number] INDICATION: Chest pain COMPARISON: March 14, 2017FINDINGS: [...] (test code=MICRO) 1+ NONE BRAIN NATRIURETIC PROTEIN *WW*2017-02-21 03:36:00 Test Item Value Reference Range Comments [...] mg/dL 1.8-2.4 CREATINE KINASE (CK), TOTAL AND [id number] 08:12:00 Test Item Value Reference Range Comments CREATINE KINASE TOTAL (BEAKER) (test htvp=336) 91 U/L 40-250 CREATINE KINASE-MB (BEAKER) (test pvga=004) 1.0 ng/mL 0.0-4.9 CREATINE KINASE-MB INDEX (BEAKER) (test fcjf=246) 1.1 % CK-MB Reference Range:<5 Normal5-10 Borderline>10 AbnormalTROPONIN [id number] 08:12:00 Test Item Value Reference Range Comments TROPONIN I (BEAKER) (test xowi=197) < ng/mL 0.00-0.15 Troponin I (TnI) levels [...] and persistent tachyarrhythmia.CBC W/PLT COUNT & AUTO [id number] 07:57:00 Test Item Value Reference Range Comments WHITE BLOOD CELL COUNT (BEAKER) (test tgpb=911) 7.7 K/ L 4.0-10.0 RED BLOOD CELL COUNT (BEAKER) (test onyu=705) 3.82 M/ L 4.20-5.80 HEMOGLOBIN (BEAKER) (test pifd=612) 9.3 GM/DL 13.0-16.8 HEMATOCRIT (BEAKER) (test obvx=811) 29.3 % 40.0-50.0 MEAN CORPUSCULAR VOLUME (BEAKER) (test afmy=753) 76.6 fL 82.0-98.0 MEAN CORPUSCULAR HEMOGLOBIN (BEAKER) (test 24.3 pg 27.0-33.0 eekj=212) MEAN CORPUSCULAR HEMOGLOBIN CONC (BEAKER) (test 31.8 GM/DL 32.0-36.0 zqlt=470) RED CELL DISTRIBUTION WIDTH (BEAKER) (test 22.1 % 10.3-14.2 jtdr=178) PLATELET COUNT (BEAKER) (test cjpa=327) 341 K/CU MM 150-430 MEAN PLATELET VOLUME (BEAKER) (test favq=665) 7.2 fL 6.5-10.5 NUCLEATED RED BLOOD CELLS (BEAKER) (test 0 /100 WBC 0-0 mkih=926) NEUTROPHILS RELATIVE PERCENT (BEAKER) (test 50 % mugy=621) LYMPHOCYTES RELATIVE PERCENT (BEAKER) (test 34 % vrng=618) MONOCYTES RELATIVE PERCENT (BEAKER) (test 14 % zyvj=706) EOSINOPHILS RELATIVE PERCENT (BEAKER) (test 1 % yibz=423) BASOPHILS RELATIVE PERCENT (BEAKER) (test 0 % wiut=901) NEUTROPHILS ABSOLUTE COUNT (BEAKER) (test 3.90 K/ L 1.80-8.00 etyg=528) LYMPHOCYTES ABSOLUTE COUNT (BEAKER) (test 2.60 K/ L 1.48-4.50 gzzx=879) MONOCYTES ABSOLUTE COUNT (BEAKER) (test 1.10 K/ L 0.00-1.30 zloq=746) EOSINOPHILS ABSOLUTE COUNT (BEAKER) (test 0.10 K/ L 0.00-0.50 mxdh=483) BASOPHILS ABSOLUTE COUNT (BEAKER) (test 0.00 K/ L 0.00-0.20 cnuz=661) (MANUAL DIFFERENTIAL)2017-02-09 07:57:00 Test Item Value Reference Range Comments TOTAL COUNTED (BEAKER) (test agyr=0645) WBC MORPHOLOGY (BEAKER) (test fhkq=406) Normal PLT MORPHOLOGY (BEAKER) (test wvvw=257) Normal ANISOCYTOSIS (BEAKER) (test knzk=871) 1+ few HYPOCHROMIA (BEAKER) (test xphy=127) 2+ moderate CREATINE KINASE (CK), TOTAL AND [id number] 06:53:00 Test Item Value Reference Range Comments CREATINE KINASE TOTAL (BEAKER) (test hjnw=760) 116 U/L 40-250 CREATINE KINASE-MB (BEAKER) (test pzex=276) 1.1 ng/mL 0.0-4.9 CREATINE KINASE-MB INDEX (BEAKER) (test akqs=471) 0.9 % CK-MB Reference Range:<5 Normal5-10 Borderline>10 AbnormalTROPONIN [id number] 06:53:00 Test Item Value Reference Range Comments TROPONIN I (BEAKER) (test pbvz=277) < ng/mL 0.00-0.15 Troponin I (TnI) levels [...] acute neurological disease, and persistent tachyarrhythmia.BASIC METABOLIC [id number] 06:45:00 Test Item Value Reference Range Comments SODIUM (BEAKER) (test 143 meq/L 135-148 howv=811) POTASSIUM (BEAKER) (test 3.8 meq/L 3.6-5.5 libx=694) CHLORIDE (BEAKER) (test 107 meq/L 98-106 uvjh=071) CO2 (BEAKER) (test 26 meq/L 20-29 pbdv=040) BLOOD UREA NITROGEN 15 mg/dL 10-26 (BEAKER) (test jevq=238) CREATININE (BEAKER) (test 1.00 mg/dL 0.50-1.20 ffvs=718) GLUCOSE RANDOM (BEAKER) 106 mg/dL 70-110 (test uejd=382) CALCIUM (BEAKER) (test 8.8 mg/dL 8.5-10.5 frws=895) EGFR (BEAKER) (test 80 mL/min/1.73 sq m ESTIMATED GFR IS NOT aowc=6602) ACCURATE CREATININE CLEARANCE IN PREDICTING GLOMERULAR FILTRATION RATE. ESTIMATED GFR IS NOT APPLICABLE FOR DIALYSIS PATIENTS. TROPONIN [id number] 22:50:00 Test Item Value Reference Range Comments TROPONIN I (BEAKER) (test dlju=758) < ng/mL 0.00-0.15 Troponin I (TnI) levels [...] and persistent tachyarrhythmia.CREATINE KINASE (CK), TOTAL AND [id number] 22:45:00 Test Item Value Reference Range Comments CREATINE KINASE TOTAL (BEAKER) (test xrrh=446) 100 U/L 40-250 CREATINE KINASE-MB (BEAKER) (test deet=783) 1.0 ng/mL 0.0-4.9 CREATINE KINASE-MB INDEX (BEAKER) (test uuxt=424) 1.0 % CK-MB Reference Range:<5 Normal5-10 Borderline>10 AbnormalPROTHROMBIN TIME/[id number] 22:35:00 Test Item Value Reference Range Comments PROTIME (BEAKER) (test nurw=047) 10.4 seconds 9.3-12.0 INR (BEAKER) (test wlos=464) 1.0 <=5.9 RECOMMENDED COUMADIN/WARFARIN INR THERAPY RANGESSTANDARD DOSE: 2.0 - 3.0 Includes: PROPHYLAXIS forvenous thrombosis, systemic embolization; TREATMENT for venous thrombosis and/or pulmonary embolus.HIGH RISK: Target INR is 2.5-3.5 for patients with mechanical heart valves.[id number] 22:35:00 Test Item Value Reference Range Comments PARTIAL THROMBOPLASTIN TIME (BEAKER) (test 23.1 seconds 23.0-35.0 abaf=934) TROPONIN [id number] 15:08:00 Test Item Value Reference Range Comments TROPONIN I (BEAKER) (test vasl=557) < ng/mL 0.00-0.15 Troponin I (TnI) levels [...] and persistent tachyarrhythmia.CREATINE KINASE (CK), TOTAL AND [id number] 15:07:00 Test Item Value Reference Range Comments CREATINE KINASE TOTAL (BEAKER) (test eryo=044) 355 U/L 40-250 CREATINE KINASE-MB (BEAKER) (test bhii=627) 2.2 ng/mL 0.0-4.9 CREATINE KINASE-MB INDEX (BEAKER) (test pggb=280) 0.6 % CK-MB Reference Range:<5 Normal5-10 Borderline>10 AbnormalCBC W/PLT COUNT & AUTO [id number] 06:58:00 Test Item Value Reference Range Comments WHITE BLOOD CELL COUNT (BEAKER) (test fzwd=099) 6.8 K/ L 4.0-10.0 RED BLOOD CELL COUNT (BEAKER) (test lhyx=802) 3.57 M/ L 4.20-5.80 HEMOGLOBIN (BEAKER) (test zkeb=849) 8.6 GM/DL 13.0-16.8 HEMATOCRIT (BEAKER) (test mbwo=296) 28.0 % 40.0-50.0 MEAN CORPUSCULAR VOLUME (BEAKER) (test rtvc=915) 78.5 fL 82.0-98.0 MEAN CORPUSCULAR HEMOGLOBIN (BEAKER) (test 24.2 pg 27.0-33.0 ewuy=337) MEAN CORPUSCULAR HEMOGLOBIN CONC (BEAKER) (test 30.9 GM/DL 32.0-36.0 ddcf=792) RED CELL DISTRIBUTION WIDTH (BEAKER) (test 22.6 % 10.3-14.2 pfoj=459) PLATELET COUNT (BEAKER) (test fyfo=291) 297 K/CU MM 150-430 MEAN PLATELET VOLUME (BEAKER) (test sbid=381) 7.2 fL 6.5-10.5 NUCLEATED RED BLOOD CELLS (BEAKER) (test 0 /100 WBC 0-0 xzyq=974) NEUTROPHILS RELATIVE PERCENT (BEAKER) (test 46 % krsi=919) LYMPHOCYTES RELATIVE PERCENT (BEAKER) (test 38 % ufcu=108) MONOCYTES RELATIVE PERCENT (BEAKER) (test 14 % gzck=706) EOSINOPHILS RELATIVE PERCENT (BEAKER) (test 2 % qclk=506) BASOPHILS RELATIVE PERCENT (BEAKER) (test 0 % ijop=808) NEUTROPHILS ABSOLUTE COUNT (BEAKER) (test 3.10 K/ L 1.80-8.00 gzyj=245) LYMPHOCYTES ABSOLUTE COUNT (BEAKER) (test 2.60 K/ L 1.48-4.50 cgrp=242) MONOCYTES ABSOLUTE COUNT (BEAKER) (test 0.90 K/ L 0.00-1.30 bwia=204) EOSINOPHILS ABSOLUTE COUNT (BEAKER) (test 0.20 K/ L 0.00-0.50 akhi=751) BASOPHILS ABSOLUTE COUNT (BEAKER) (test 0.00 K/ L 0.00-0.20 qocl=738) (MANUAL DIFFERENTIAL)2017-01-24 06:58:00 Test Item Value Reference Range Comments TOTAL COUNTED (BEAKER) (test fflw=5377) WBC MORPHOLOGY (BEAKER) (test etfv=486) Normal PLT MORPHOLOGY (BEAKER) (test gldz=536) Normal ANISOCYTOSIS (BEAKER) (test zqpu=108) 2+ moderate HYPOCHROMIA (BEAKER) (test zebc=865) 2+ moderate MICROCYTES (BEAKER) (test ncyk=056) 1+ few TROPONIN [id number] 06:05:00 Test Item Value Reference Range Comments TROPONIN I (BEAKER) (test dduw=865) < ng/mL 0.00-0.15 Troponin I (TnI) levels [...] and persistent tachyarrhythmia.CREATINE KINASE (CK), TOTAL AND [id number] 06:04:00 Test Item Value Reference Range Comments CREATINE KINASE TOTAL (BEAKER) (test mxrc=800) 298 U/L 40-250 CREATINE KINASE-MB (BEAKER) (test waku=742) 2.1 ng/mL 0.0-4.9 CREATINE KINASE-MB INDEX (BEAKER) (test ccnx=405) 0.7 % CK-MB Reference Range:<5 Normal5-10 Borderline>10 AbnormalCOMPREHENSIVE METABOLIC [id number] 06:00:00 Test Item Value Reference Range Comments TOTAL PROTEIN (BEAKER) 6.5 gm/dL 6.0-8.5 (test olgr=769) ALBUMIN (BEAKER) (test 4.0 g/dL 3.5-5.0 leso=2683) ALKALINE PHOSPHATASE 76 U/L 30-115 (BEAKER) (test mowk=658) BILIRUBIN TOTAL (BEAKER) 0.5 mg/dL 0.1-1.2 (test mqks=560) SODIUM (BEAKER) (test 142 meq/L 135-148 vdix=653) POTASSIUM (BEAKER) (test 3.5 meq/L 3.6-5.5 zzhi=672) CHLORIDE (BEAKER) (test 106 meq/L 98-106 qwvi=186) CO2 (BEAKER) (test 26 meq/L 20-29 gkql=754) BLOOD UREA NITROGEN 14 mg/dL 10-26 (BEAKER) (test cgao=592) CREATININE (BEAKER) (test 0.90 mg/dL 0.50-1.20 frxb=484) GLUCOSE RANDOM (BEAKER) 79 mg/dL 70-110 (test nwsq=095) CALCIUM (BEAKER) (test 8.8 mg/dL 8.5-10.5 wdjn=185) AST (SGOT) (BEAKER) (test 16 U/L 5-40 ykaw=211) ALT (SGPT) (BEAKER) (test 10 U/L 5-50 acsy=181) EGFR (BEAKER) (test 91 mL/min/1.73 sq m ESTIMATED GFR IS NOT hbcv=1083) ACCURATE CREATININE CLEARANCE IN PREDICTING GLOMERULAR FILTRATION RATE. ESTIMATED GFR IS NOT APPLICABLE FOR DIALYSIS PATIENTS. CREATINE KINASE (CK), TOTAL AND [id number] 04:57:00 Test Item Value Reference Range Comments CREATINE KINASE TOTAL (BEAKER) (test traf=159) 653 U/L 30-300 CREATINE KINASE-MB (BEAKER) (test xwgs=367) 0.8 ng/mL 0.0-4.9 CREATINE KINASE-MB INDEX (BEAKER) (test keor=783) 0.1 % CK-MB Reference Range:<5 Normal5-10 Borderline>10 AbnormalTROPONIN [id number] 04:56:00 Test Item Value Reference Range Comments TROPONIN I (BEAKER) (test xiuj=853) 0.03 ng/mL 0.00-0.15 Troponin I (TnI) levels [...] acidosis, acute neurological disease, and persistent tachyarrhythmia.LIPID [id number] 04:47:00 Test Item Value Reference Range Comments TRIGLYCERIDES (BEAKER) (test durz=736) 79 mg/dL CHOLESTEROL (BEAKER) (test hhat=845) 206 mg/dL HDL CHOLESTEROL (BEAKER) (test dfps=827) 53 mg/dL LDL CHOLESTEROL CALCULATED (BEAKER) (test 137 mg/dL kxxl=436) Triglyceride Reference Range: Low Risk <150 Borderline 150- 199 High Risk 200-499 Very High Risk >=500Cholesterol Reference Range: Low Risk <200 Borderline 200-239 High Risk > 240HDL Cholesterol Reference Range: Low Risk >=60 High Risk <40LDL Cholesterol Reference Range: Optimal <100 Near Optimal 100-129 Borderline 130-159 High 160-189 Very High >=190COMPREHENSIVE METABOLIC [id number] 04:47:00 Test Item Value Reference Range Comments TOTAL PROTEIN (BEAKER) 7.2 gm/dL 6.0-8.5 (test lltq=477) ALBUMIN (BEAKER) (test 4.1 g/dL 3.5-5.0 limq=0616) ALKALINE PHOSPHATASE 78 U/L 30-115 (BEAKER) (test urhz=137) BILIRUBIN TOTAL (BEAKER) 0.5 mg/dL 0.1-1.3 (test nzoh=641) SODIUM (BEAKER) (test 141 meq/L 135-148 reki=225) POTASSIUM (BEAKER) (test 3.9 meq/L 3.5-5.5 qvfg=962) CHLORIDE (BEAKER) (test 109 meq/L 98-106 pjko=339) CO2 (BEAKER) (test 23 meq/L 20-31 oaoo=525) BLOOD UREA NITROGEN 9 mg/dL 10-26 (BEAKER) (test ukex=561) CREATININE (BEAKER) (test 0.95 mg/dL 0.50-1.20 yuyy=572) GLUCOSE RANDOM (BEAKER) 83 mg/dL 70-110 (test gcmo=414) CALCIUM (BEAKER) (test 8.8 mg/dL 8.5-10.5 ybqa=251) AST (SGOT) (BEAKER) (test 28 U/L 5-40 kgyt=230) ALT (SGPT) (BEAKER) (test 27 U/L 6-50 sbmb=918) EGFR (BEAKER) (test 86 mL/min/1.73 sq m ESTIMATED GFR IS NOT pgnp=2981) ACCURATE CREATININE CLEARANCE IN PREDICTING GLOMERULAR FILTRATION RATE. ESTIMATED GFR IS NOT APPLICABLE FOR DIALYSIS PATIENTS. CBC W/PLT COUNT & AUTO [id number] 04:19:00 Test Item Value Reference Range Comments WHITE BLOOD CELL COUNT (BEAKER) (test hajq=449) 6.6 K/ L 4.0-10.0 RED BLOOD CELL COUNT (BEAKER) (test trjm=904) 3.66 M/ L 4.20-5.80 HEMOGLOBIN (BEAKER) (test rchs=135) 8.5 GM/DL 13.0-16.8 HEMATOCRIT (BEAKER) (test kuax=755) 27.3 % 40.0-50.0 MEAN CORPUSCULAR VOLUME (BEAKER) (test ehds=800) 74.7 fL 82.0-98.0 MEAN CORPUSCULAR HEMOGLOBIN (BEAKER) (test 23.2 pg 27.0-33.0 tbru=626) MEAN CORPUSCULAR HEMOGLOBIN CONC (BEAKER) (test 31.0 GM/DL 32.0-36.0 npzo=158) RED CELL DISTRIBUTION WIDTH (BEAKER) (test 19.2 % 12.0-15.0 cusk=237) PLATELET COUNT (BEAKER) (test iowm=811) 348 K/CU MM 150-430 MEAN PLATELET VOLUME (BEAKER) (test hcld=716) 6.8 fL 6.5-10.5 NUCLEATED RED BLOOD CELLS (BEAKER) (test 0 /100 WBC 0-0 sibv=649) NEUTROPHILS RELATIVE PERCENT (BEAKER) (test 49 % ikus=110) LYMPHOCYTES RELATIVE PERCENT (BEAKER) (test 39 % uksq=076) MONOCYTES RELATIVE PERCENT (BEAKER) (test 9 % qegt=001) EOSINOPHILS RELATIVE PERCENT (BEAKER) (test 1 % ytxx=693) BASOPHILS RELATIVE PERCENT (BEAKER) (test 2 % ctxn=999) NEUTROPHILS ABSOLUTE COUNT (BEAKER) (test 3.20 K/ L 1.80-8.00 dqsu=960) LYMPHOCYTES ABSOLUTE COUNT (BEAKER) (test 2.60 K/ L 1.48-4.50 gvgb=143) MONOCYTES ABSOLUTE COUNT (BEAKER) (test 0.60 K/ L 0.00-1.30 bzfm=541) EOSINOPHILS ABSOLUTE COUNT (BEAKER) (test 0.10 K/ L 0.00-0.50 utyc=560) BASOPHILS ABSOLUTE COUNT (BEAKER) (test 0.10 K/ L 0.00-0.20 bash=968) TROPONIN [id number] 13:44:00 Test Item Value Reference Range Comments TROPONIN I (BEAKER) (test cpnv=697) < ng/mL 0.00-0.15 Troponin I (TnI) levels [...] and persistent tachyarrhythmia.CREATINE KINASE (CK), TOTAL AND [id number] 13:43:00 Test Item Value Reference Range Comments CREATINE KINASE TOTAL (BEAKER) (test nloj=659) 61 U/L 40-250 CREATINE KINASE-MB (BEAKER) (test imnn=333) 1.0 ng/mL 0.0-4.9 CREATINE KINASE-MB INDEX (BEAKER) (test gliz=847) 1.6 % CK-MB Reference Range:<5 Normal5-10 Borderline>10 AbnormalTROPONIN [id number] 07:21:00 Test Item Value Reference Range Comments TROPONIN I (BEAKER) (test oacn=394) < ng/mL 0.00-0.15 Troponin I (TnI) levels [...] and persistent tachyarrhythmia.CREATINE KINASE (CK), TOTAL AND [id number] 07:20:00 Test Item Value Reference Range Comments CREATINE KINASE TOTAL (BEAKER) (test lldi=989) 58 U/L 40-250 CREATINE KINASE-MB (BEAKER) (test dami=036) 0.9 ng/mL 0.0-4.9 CREATINE KINASE-MB INDEX (BEAKER) (test frtv=207) 1.6 % CK-MB Reference Range:<5 Normal5-10 Borderline>10 AbnormalCBC W/PLT COUNT & AUTO [id number] 22:21:00 Test Item Value Reference Range Comments WHITE BLOOD CELL COUNT (BEAKER) (test zcff=060) 7.3 K/ L 4.0-10.0 RED BLOOD CELL COUNT (BEAKER) (test fksr=850) 4.00 M/ L 4.20-5.80 HEMOGLOBIN (BEAKER) (test szmh=269) 9.4 GM/DL 13.0-16.8 HEMATOCRIT (BEAKER) (test nizc=025) 30.0 % 40.0-50.0 MEAN CORPUSCULAR VOLUME (BEAKER) (test fhkf=136) 74.9 fL 82.0-98.0 MEAN CORPUSCULAR HEMOGLOBIN (BEAKER) (test 23.5 pg 27.0-33.0 nvyo=477) MEAN CORPUSCULAR HEMOGLOBIN CONC (BEAKER) (test 31.4 GM/DL 32.0-36.0 khve=135) RED CELL DISTRIBUTION WIDTH (BEAKER) (test 20.1 % 10.3-14.2 apxj=710) PLATELET COUNT (BEAKER) (test gdxv=347) 392 K/CU MM 150-430 MEAN PLATELET VOLUME (BEAKER) (test hazr=015) 6.8 fL 6.5-10.5 NUCLEATED RED BLOOD CELLS (BEAKER) (test 0 /100 WBC 0-0 opts=801) NEUTROPHILS RELATIVE PERCENT (BEAKER) (test 45 % taqa=139) LYMPHOCYTES RELATIVE PERCENT (BEAKER) (test 40 % fxay=945) MONOCYTES RELATIVE PERCENT (BEAKER) (test 14 % cnps=740) EOSINOPHILS RELATIVE PERCENT (BEAKER) (test 1 % eztu=212) BASOPHILS RELATIVE PERCENT (BEAKER) (test 0 % koju=034) NEUTROPHILS ABSOLUTE COUNT (BEAKER) (test 3.30 K/ L 1.80-8.00 nonk=936) LYMPHOCYTES ABSOLUTE COUNT (BEAKER) (test 2.90 K/ L 1.48-4.50 soor=699) MONOCYTES ABSOLUTE COUNT (BEAKER) (test 1.00 K/ L 0.00-1.30 ugei=432) EOSINOPHILS ABSOLUTE COUNT (BEAKER) (test 0.10 K/ L 0.00-0.50 upav=371) BASOPHILS ABSOLUTE COUNT (BEAKER) (test 0.00 K/ L 0.00-0.20 czax=257) (MANUAL DIFFERENTIAL)2016-12-01 22:21:00 Test Item Value Reference Range Comments TOTAL COUNTED (BEAKER) (test wkya=3816) WBC MORPHOLOGY (BEAKER) (test yeec=656) Normal PLT MORPHOLOGY (BEAKER) (test kzkl=833) Normal ANISOCYTOSIS (BEAKER) (test nbzf=780) 2+ moderate HYPOCHROMIA (BEAKER) (test mnpm=833) 1+ few TROPONIN [id number] 22:13:00 Test Item Value Reference Range Comments TROPONIN I (BEAKER) (test jgzh=980) < ng/mL 0.00-0.15 Troponin I (TnI) levels [...] and persistent tachyarrhythmia.CREATINE KINASE (CK), TOTAL AND [id number] 22:12:00 Test Item Value Reference Range Comments CREATINE KINASE TOTAL (BEAKER) (test vlzg=315) 68 U/L 40-250 CREATINE KINASE-MB (BEAKER) (test zdne=326) 1.0 ng/mL 0.0-4.9 CREATINE KINASE-MB INDEX (BEAKER) (test hqro=770) 1.5 % CK-MB Reference Range:<5 Normal5-10 Borderline>10 AbnormalCOMPREHENSIVE METABOLIC [id number] 22:05:00 Test Item Value Reference Range Comments TOTAL PROTEIN (BEAKER) 8.0 gm/dL 6.0-8.5 (test fyyx=101) ALBUMIN (BEAKER) (test 4.7 g/dL 3.5-5.0 wgsf=5827) ALKALINE PHOSPHATASE 84 U/L 30-115 (BEAKER) (test olvf=784) BILIRUBIN TOTAL (BEAKER) 0.5 mg/dL 0.1-1.2 (test hkyq=191) SODIUM (BEAKER) (test 139 meq/L 135-148 cfex=509) POTASSIUM (BEAKER) (test 4.0 meq/L 3.6-5.5 nxvn=373) CHLORIDE (BEAKER) (test 103 meq/L 98-106 fwta=953) CO2 (BEAKER) (test 26 meq/L 20-29 yrsx=900) BLOOD UREA NITROGEN 13 mg/dL 10-26 (BEAKER) (test solg=829) CREATININE (BEAKER) (test 1.00 mg/dL 0.50-1.20 dmzz=387) GLUCOSE RANDOM (BEAKER) 118 mg/dL 70-110 (test bxqi=865) CALCIUM (BEAKER) (test 10.1 mg/dL 8.5-10.5 mith=147) AST (SGOT) (BEAKER) (test 19 U/L 5-40 ufac=495) ALT (SGPT) (BEAKER) (test 15 U/L 5-50 ujni=294) EGFR (BEAKER) (test 81 mL/min/1.73 sq m ESTIMATED GFR IS NOT kbje=[id number]) ACCURATE CREATININE CLEARANCE IN PREDICTING GLOMERULAR FILTRATION RATE. ESTIMATED GFR IS NOT APPLICABLE FOR DIALYSIS PATIENTS. PROTHROMBIN [id number] 21:58:00 Test Item Value Reference Range Comments PROTIME (BEAKER) (test yyam=347) 10.5 seconds 9.3-12.0 INR (BEAKER) (test furd=784) 1.0 <=5.9 RECOMMENDED COUMADIN/WARFARIN INR THERAPY RANGESSTANDARD DOSE: 2.0 - 3.0 Includes: PROPHYLAXIS forvenous thrombosis, systemic embolization; TREATMENT for venous thrombosis and/or pulmonary embolus.HIGH RISK: Target INR is 2.5-3.5 for patients with mechanical heart valves.[id number] 21:58:00 Test Item Value Reference Range Comments PARTIAL THROMBOPLASTIN TIME (BEAKER) (test 32.3 seconds 23.0-35.0 nphf=672)
--- NOTE | 2018-10-20 11:41 | RAD REPORT ---
EXAM DESCRIPTION: RAD - Chest Single View - 10/20/2018 11:35 am CLINICAL HISTORY: CHEST PAIN Chest pain. COMPARISON: Chest Single View dated 09/18/2018; Chest Single View dated 09/03/2018; Chest Single View dated 08/19/2018; Chest Single View dated 08/09/2018 FINDINGS: Portable technique limits examination quality. The lungs are grossly clear. The heart is normal in size. No displaced fractures.Right-sided port cat heter has tip in the SVC. IMPRESSION: No acute intrathoracic process suspected.
[2018-10-20] MEDS ORDERED: HYDROMORPHONE HCL 1 MG/ML INJ ONE ×2 (12:01→13:51)
[2018-10-20] MEDS ORDERED: ONDANSETRON 4 MG/2 ML VIAL ONE (12:01)
[2018-10-20] MEDS ORDERED: ALTEPLASE 2 MG/VIAL IV ONE (12:30)
[2018-10-20] MEDS ORDERED: WATER FOR INJ,STERILE 10 ML IV ONE (12:30)
--- NOTE | 2018-10-20 12:39 | ER ---
Nurse's Notes [facility] Name: Christiano Serra Age: 48 yrs Sex: Male : 1970 Arrival Date: 10/20/2018 Time: 11:03 Bed 17 Private MD: Diagnosis: Essential (primary) hypertension;Other chest pain Presentation: 10/20 11:10 Presenting complaint: Patient states: Chest pain, substernal that radiates to mid upper sg back, reports nausea, denies fever/cough/chills/D/V. Transition of care: patient was not received from another setting of care. Onset of symptoms was October 20, 2018. Risk Assessment: Do you want to hurt yourself or someone else? Patient reports no desire to harm self or others. Initial Sepsis Screen: Does the patient meet any 2 criteria? No. Patient's initial sepsis screen is negative. Does the patient have a suspected source of infection? No. Patient's initial sepsis screen is negative. Care prior to arrival: None. 11:10 Method Of Arrival: Ambulatory sg 11:10 Acuity: RADHA 3 sg Historical: - Allergies: 11:14 ambien; sg 11:14 Morphine; sg 11:14 Toradol; sg - PMHx: 11:14 FACTOR V; Hyperlipidemia; Hypertension; Myocardial infarction; sg - PSHx: 11:14 Heart stents; back surgery; Cholecystectomy; port a cath; sg - Immunization history:: Adult Immunizations up to date. - Social history:: Smoking status: Patient/guardian denies using tobacco. - Ebola Screening: : Patient negative for fever greater than or equal to 101.5 degrees Fahrenheit, and additional compatible Ebola Virus Disease symptoms Patient denies exposure to infectious person Patient denies travel to an Ebola-affected area in the 21 days before illness onset No symptoms or risks identified at this time. - Family history:: not pertinent. Screenin:31 Abuse screen: Denies threats or abuse. Denies injuries from another. Nutritional bp screening: No deficits noted. Tuberculosis screening: No symptoms or risk factors identified. Fall Risk None identified. Assessment: 11:30 General: Appears in no apparent distress. uncomfortable, Behavior is cooperative, bp appropriate for age, anxious. Pain: Complains of pain in chest Pain radiates to back Pain began suddenly. Neuro: Level of Consciousness is awake, alert, obeys commands, Oriented to person, place, time, situation, Appropriate for age. Cardiovascular: Rhythm is sinus rhythm. Respiratory: Airway is patent Respiratory effort is even, unlabored, Respiratory pattern is regular, symmetrical. GI: No signs and/or symptoms were reported involving the gastrointestinal system. : No signs and/or symptoms were reported regarding the genitourinary system. EENT: No deficits noted. Derm: No signs and/or symptoms reported regarding the dermatologic system. Musculoskeletal: Circulation, motion, and sensation intact. Range of motion: intact in all extremities. 11:56 Reassessment: PHLEBOTOMY AT B/S FOR LAB DRAW. bp 13:00 Reassessment: ALL CURRENT ORDERS COMPLETED, DISPO PENDING. bp 15:07 Reassessment: REPORT TO FLOOR. TRANSPORT PENDING. bp Vital Signs: 11:12 BP 142 / 101; Pulse 98; Resp 19; Temp 98.1; Pulse Ox 97% on R/A; Weight 102.06 kg (R); sg Height 5 ft. 6 in. (167.64 cm) (R); Pain 10/10; 12:30 BP 113 / 95; Pulse 117; Resp 14; Pulse Ox 97% ; bp 13:47 BP 144 / 101; Pulse 102; Resp 15; Pulse Ox 98% ; bp 14:53 BP 117 / 105; Pulse 95; Resp 13; Pulse Ox 97% ; bp 11:12 Body Mass Index 36.32 (102.06 kg, 167.64 cm) ED Course: 11:03 Patient arrived in ED. mr 11:12 Triage completed. sg 11:12 Arm band placed on. sg 11:16 Derian Vo MD is Attending Physician. [facility] 11:19 Surjit Sears, RN is Primary Nurse. bp 11:22 EKG done, by sonar technician. reviewed by Derian Vo MD. at1 11:31 Patient has correct armband on for positive identification. Placed in gown. Bed in low bp position. Call light in reach. Side rails up X2. playground monitor on. Pulse ox on. NIBP on. 11:36 XRAY Chest (1 view) In Process Unspecified. EDMS 11:46 Accessed Port-a-Cath. using accessed w/ #19 Rich needle, ,sterile technique, per hospital protocol. Clean \T\ dry. Dressing intact. No blood return. Flushes easily. Patient maintains SpO2 saturation greater than 95% on room air. 12:38 Wiliam Rendon MD is Hospitalizing Provider. [facility] 15:09 No provider procedures requiring assistance completed. Patient admitted, IV remains in bp place. Administered Medications: 11:55 Drug: Dilaudid 1 mg Route: IVP; Site: Port-a-cath; bp 12:01 Follow up: Response: Pain is decreased bp 11:55 Drug: Zofran 4 mg Route: IVP; Site: Port-a-cath; bp 12:02 Follow up: Response: Nausea is decreased bp 12:45 Drug: Aspirin 81 mg Route: PO; bp 13:46 Follow up: Response: No adverse reaction bp 12:45 Drug: Norvasc 5 mg Route: PO; bp 13:47 Follow up: Response: No adverse reaction bp 12:54 Drug: Cathflo Activase 2 mg Route: IV Thrombolytics; bp 13:46 Follow up: Response: Marked relief of symptoms bp 13:47 Follow up: Response: No adverse reaction bp 13:46 Drug: NS 0.9% 1000 ml Route: IV; Rate: 1 bolus; Site: Port-a-cath; bp 14:52 Follow up: IV Status: Completed infusion; IV Intake: 1000ml bp 13:49 Drug: Dilaudid 1 mg Route: IVP; Site: Port-a-cath; bp 14:52 Follow up: Response: Pain is decreased bp Intake: 14:52 IV: 1000ml; Total: 1000ml. bp Outcome: 12:38 Decision to Hospitalize by Provider. lauryn 15:[address] [facility] accompanied by tech, via wheelchair, room 430, with chart, Report bp called to OMEGA WRIGHT 15:09 Condition: stable bp 15:09 Instructed on the need for admit. 15:26 Patient left the ED. bp Signatures: Dispatcher [employer] EDMS Héctor Kent, ADRIANA RN Derian Cuellar MD MD cha Rivera, Homa Marte, front end mechanic EKG Tat1 Surjit Sears, ADRIANA RN bp
--- NOTE | 2018-10-20 12:40 | EDPHYS ---
Physician Documentation [facility] Name: Christiano Serra Age: 48 yrs Sex: Male : 1970 Arrival Date: 10/20/2018 Time: 11:03 Bed 17 Private MD: ED Physician Derian Vo HPI: 10/20 12:34 This 48 yrs old Other Male presents to ER via Ambulatory with complaints of Chest Pain. lauryn 12:34 The patient or guardian reports chest pain that is located primarily in the substernal lauryn area. Onset: just prior to arrival. The pain does not radiate. Associated signs and symptoms: The patient has no apparent associated signs or symptoms. The chest pain is described as a pressure. Modifying factors: The symptoms are alleviated by nothing. the symptoms are aggravated by nothing. Severity of pain: At its worst the pain was moderate in the emergency department the pain has improved mildly. Historical: - Allergies: 11:14 ambien; sg 11:14 Morphine; sg 11:14 Toradol; sg - PMHx: 11:14 FACTOR V; Hyperlipidemia; Hypertension; Myocardial infarction; sg - PSHx: 11:14 Heart stents; back surgery; Cholecystectomy; port a cath; sg - Immunization history:: Adult Immunizations up to date. - Social history:: Smoking status: Patient/guardian denies using tobacco. - Ebola Screening: : Patient negative for fever greater than or equal to 101.5 degrees Fahrenheit, and additional compatible Ebola Virus Disease symptoms Patient denies exposure to infectious person Patient denies travel to an Ebola-affected area in the 21 days before illness onset No symptoms or risks identified at this time. - Family history:: not pertinent. ROS: 12:34 Constitutional: Negative for fever, chills, and weight loss, Eyes: Negative for injury, lauryn pain, redness, and discharge, ENT: Negative for injury, pain, and discharge, Neck: Negative for injury, pain, and swelling, Respiratory: Negative for shortness of breath, cough, wheezing, and pleuritic chest pain, Abdomen/GI: Negative for abdominal pain, nausea, vomiting, diarrhea, and constipation, Back: Negative for injury and pain, : Negative for injury, bleeding, discharge, and swelling, MS/Extremity: Negative for injury and deformity, Skin: Negative for injury, rash, and discoloration, Neuro: Negative for headache, weakness, numbness, tingling, and seizure, Psych: Negative for depression, anxiety, suicide ideation, homicidal ideation, and hallucinations, Allergy/Immunology: Negative for hives, rash, and allergies, Endocrine: Negative for neck swelling, polydipsia, polyuria, polyphagia, and marked weight changes, Hematologic/Lymphatic: Negative for swollen nodes, abnormal bleeding, and unusual bruising. 12:34 Cardiovascular: Positive for chest pain, of the chest. Exam: 12:34 Constitutional: This is a well developed, well nourished patient who is awake, alert, lauryn and in no acute distress. Head/Face: Normocephalic, atraumatic. Eyes: Pupils equal round and reactive to light, extra-ocular motions intact. Lids and lashes normal. Conjunctiva and sclera are non-icteric and not injected. Cornea within normal limits. Periorbital areas with no swelling, redness, or edema. ENT: Nares patent. No nasal discharge, no septal abnormalities noted. Tympanic membranes are normal and external auditory canals are clear. Oropharynx with no redness, swelling, or masses, exudates, or evidence of obstruction, uvula midline. Mucous membranes moist. Neck: Trachea midline, no thyromegaly or masses palpated, and no cervical lymphadenopathy. Supple, full range of motion without nuchal rigidity, or vertebral point tenderness. No Meningismus. Chest/axilla: Normal chest wall appearance and motion. Nontender with no deformity. No lesions are appreciated. Respiratory: Lungs have equal breath sounds bilaterally, clear to auscultation and percussion. No rales, rhonchi or wheezes noted. No increased work of breathing, no retractions or nasal flaring. Abdomen/GI: Soft, non-tender, with normal bowel sounds. No distension or tympany. No guarding or rebound. No evidence of tenderness throughout. Back: No spinal tenderness. No costovertebral tenderness. Full range of motion. Male : Normal genitalia with no discharge or lesions. Skin: Warm, dry with normal turgor. Normal color with no rashes, no lesions, and no evidence of cellulitis. MS/ Extremity: Pulses equal, no cyanosis. Neurovascular intact. Full, normal range of motion. Neuro: Awake and alert, GCS 15, oriented to person, place, time, and situation. Cranial nerves II-XII grossly intact. Motor strength 5/5 in all extremities. Sensory grossly intact. Cerebellar exam normal. Normal gait. Psych: Awake, alert, with orientation to person, place and time. Behavior, mood, and affect are within normal limits. 12:34 Cardiovascular: Rate: tachycardic, Rhythm: regular, Pulses: Pulses are 4+ in bilateral radial, brachial, femoral, popliteal, posterior tibial and and dorsalis pedis arteries.. Edema: is not appreciated, JVD: is not appreciated. Vital Signs: 11:12 BP 142 / 101; Pulse 98; Resp 19; Temp 98.1; Pulse Ox 97% on R/A; Weight 102.06 kg (R); sg Height 5 ft. 6 in. (167.64 cm) (R); Pain 10; 12:30 BP 113 / 95; Pulse 117; Resp 14; Pulse Ox 97% ; bp 13:47 BP 144 / 101; Pulse 102; Resp 15; Pulse Ox 98% ; bp 14:53 BP 117 / 105; Pulse 95; Resp 13; Pulse Ox 97% ; bp 11:12 Body Mass Index 36.32 (102.06 kg, 167.64 cm) MDM: 11:16 Patient medically screened. [facility] 12:37 Data reviewed: vital signs, nurses notes, lab test result(s), EKG, radiologic studies, lauryn plain films. 10/20 11:17 Order name: Basic Metabolic Panel; Complete Time: 14:47 [facility] 10/20 11:17 Order name: CBC with Diff [facility] 10/20 11:17 Order name: LFT's; Complete Time: 14:47 [facility] 10/20 11:17 Order name: Magnesium; Complete Time: 14:47 [facility] 10/20 11:17 Order name: NT PRO-BNP; Complete Time: 14:47 [facility] 10/20 11:17 Order name: PT-INR; Complete Time: 14:47 [facility] 10/20 11:17 Order name: Troponin (emerg Dept Use Only); Complete Time: 14:47 [facility] 10/20 11:17 Order name: XRAY Chest (1 view); Complete Time: 12:48 [facility] 10/20 11:17 Order name: EKG; Complete Time: 11:18 [facility] 10/20 11:17 Order name: Cardiac monitoring; Complete Time: 11:47 [facility] 10/20 11:17 Order name: EKG - Nurse/Tech; Complete Time: 11:47 [facility] 10/20 11:17 Order name: IV Saline Lock; Complete Time: 11:47 [facility] 10/20 11:17 Order name: Labs collected and sent; Complete Time: 13:53 [facility] 10/20 11:17 Order name: O2 Per Protocol; Complete Time: 11:19 [facility] 10/20 11:17 Order name: O2 Sat Monitoring; Complete Time: 11:19 [facility] Administered Medications: 11:55 Drug: Dilaudid 1 mg Route: IVP; Site: Port-a-cath; bp 12:01 Follow up: Response: Pain is decreased bp 11:55 Drug: Zofran 4 mg Route: IVP; Site: Port-a-cath; bp 12:02 Follow up: Response: Nausea is decreased bp 12:45 Drug: Aspirin 81 mg Route: PO; bp 13:46 Follow up: Response: No adverse reaction bp 12:45 Drug: Norvasc 5 mg Route: PO; bp 13:47 Follow up: Response: No adverse reaction bp 12:54 Drug: Cathflo Activase 2 mg Route: IV Thrombolytics; bp 13:46 Follow up: Response: Marked relief of symptoms bp 13:47 Follow up: Response: No adverse reaction bp 13:46 Drug: NS 0.9% 1000 ml Route: IV; Rate: 1 bolus; Site: Port-a-cath; bp 14:52 Follow up: IV Status: Completed infusion; IV Intake: 1000ml bp 13:49 Drug: Dilaudid 1 mg Route: IVP; Site: Port-a-cath; bp 14:52 Follow up: Response: Pain is decreased bp Disposition: 10/20/18 12:38 Hospitalization ordered by Wiliam Rendon for Observation. Preliminary diagnosis are Essential (primary) hypertension, Other chest pain. - Bed requested for Telemetry/MedSurg (observation). - Status is Observation. bp - Condition is Stable. - Problem is new. - Symptoms have improved. UTI on Admission? No Signatures: Dispatcher [employer] EDHéctor Blue, RN RN Derian Cuellar MD MD cha Martinez, Eric em1 Surjit Sears RN RN bp Corrections: (The following items were deleted from the chart) 14:08 12:38 Hospitalization Ordered by Wiliam Rendon MD for Observation. Preliminary diagnosis em1 is Essential (primary) hypertension; Other chest pain. Bed requested for Telemetry/MedSurg (observation). Status is Observation. Condition is Stable. Problem is new. Symptoms have improved. UTI on Admission? No. lauryn 15:26 14:08 10/20/2018 12:38 Hospitalization Ordered by Wiliam Rendon MD for Observation. bp Preliminary diagnosis is Essential (primary) hypertension; Other chest pain. Bed requested for Telemetry/MedSurg (observation). Status is Observation. Condition is Stable. Problem is new. Symptoms have improved. UTI on Admission? No. em1
[2018-10-20] MEDS ORDERED: AMLODIPINE 5 MG TAB ONE (13:11)
[2018-10-20] MEDS ORDERED: ASPIRIN EC 81 MG TAB PO ONE (13:11)
[2018-10-20 13:46] LABS: Absolute Lymphocytes (CBC) 1.6 K/uL (0.7-4.9); Absolute Monocytes 0.8 K/uL (0.1-1.3); Absolute Neutrophil 4.2 K/uL (1.8-8.0); Basophils % 0.2 % (0-1.3); Eosinophils % 0.3 % (0-4.4); Hematocrit 37.7 % (39.6-49.0); Lymphocytes % 24.2 % (15.3-44.8); MPV 7.1 fL (7.6-11.3); Monocytes % 12.1 % (3.3-12.3); RBC Red Blood Cell Count 4.97 M/uL (4.33-5.43)
[2018-10-20] MEDS ORDERED: NA CHLORIDE 0.9% 1,000 ML ONE (13:51)
[2018-10-20 14:08] LABS: ALT/SGPT 22 U/L (12-78); AST/SGOT 22 U/L (15-37); Albumin 4.3 g/dL (3.4-5.0); Alkaline Phosphatase 90 U/L (45-117); BUN Blood Urea Nitrogen 11 mg/dL (7-18); Bicarbonate 27 mmol/L (21-32); Bilirubin Direct 0.1 mg/dL (0-0.2); Bilirubin Total 0.5 mg/dL (0.2-1.0); Glucose Level 90 mg/dL (74-106); Magnesium 2.6 mg/dL (1.8-2.4); NT PRO-BNP 17 pg/mL (<125); Potassium 3.8 mmol/L (3.5-5.1); Protein, Total 8.4 g/dL (6.4-8.2); Sodium Level 141 mmol/L (136-145); Troponin (Emerg Dept Use Only) < 0.02 ng/mL (0.0-0.045)
[2018-10-20 14:16] LABS: Protime INR 1.09
[2018-10-20 15:42] VITALS: O2SAT 97
[2018-10-20] MEDS ORDERED: ACETAMINOPHEN 500 MG TAB PO PRN (15:57)
[2018-10-20 16:18] LABS: Anisocytosis 3+; Blood Morphology Comment NOTED (NOT SEEN); Platelet Estimate INCR; Poikilocytosis 1+; Polychromasia 1+; Urine White Blood Cell Casts OK
[2018-10-20] MEDS ORDERED: TIZANIDINE 4 MG TABLET PO PRN (16:19)
[2018-10-20] MEDS ORDERED: HYDROCODONE/APAP 10/325 TAB PO PRN (16:19)
[2018-10-20] MEDS ORDERED: NITROGLYCERIN 0.4 MG/TAB SL PRN (16:31)
[2018-10-20 16:37] VITALS: BMI 36.3
[2018-10-20] MEDS ORDERED: FONDAPARINUX SOD 7.5 MG/0.6 ML SQ SCH (17:00)
[2018-10-20 18:14] VITALS: BP 130/98; TEMP 99.1
[2018-10-20] MEDS ORDERED: HYDROMORPHONE HCL 0.5 MG/0.5 ML INJ IV ONE (19:00)
[2018-10-20] MEDS ORDERED: ATORVASTATIN 40 MG TAB PO SCH (21:00)
--- NOTE | 2018-10-21 02:52 | HP ---
Date of Admission: 10/20/2018 Consultants: Dr. Prado, Cardiology. Chief Complaint: Chest pain. History Of Present Illness: The patient is a 48-year-old male with past medical history of Factor V Leiden disease; coronary artery disease, status post stent with history of 2 previous MIs; history of peripheral vascular disease, who was recently discharged on 09/18/2018, comes in with episode of robyn st pain that started at rest while at work. The patient states the pain is located on the left side of his chest, radiating straight to the back, associated with some nausea and diaphoresis. Denies an y vomiting, palpitations, or shortness of breath. The patient states that this is typical of his ang daniela symptoms. He tried taking his nitroglycerin x2, which did not help. The patient does see cardio logist in [place] at [place], Dr. Patel, for his heart disease. Has been recently started on isos orbide mononitrate for his anginal symptoms. The patient's last echocardiogram was here on 8 showing an ejection fraction of 69%. His lipid panel did show elevated triglycerides, elevated tot al cholesterol, and elevated LDL. The patient states that he is compliant with his medications. The patient therefore came into the ER for further evaluation. His workup revealed negative cardiac enz ymes. EKG did not show any acute changes. WBC count was normal. The patient was then referred for admission. When seen in the ER, he was awake, alert, oriented x3, in some acute distress. Past Medical History: Coronary artery disease, status post stent x2; history of UT x2; hypertension; peripheral vascular disease; Factor V Leiden deficiency; history of pulmonary embolism; pericarditis ; SVT. Past Surgical History: Back surgery, cholecystectomy, right chest wall Port-A-Cath, cardiac stents. Allergies: TORADOL, CAUSES HIVES. MORPHINE, ALSO CAUSES HIVES. AMBIEN, MAKES HIM SLEEP WALK. Medications: List reviewed. Social History: The patient denies any tobacco use, alcohol use, or illicit drug use. 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 Family History: Reviewed. No premature coronary artery disease in the family. Review of Systems: Ten point system reviewed, negative except as per HPI. Physical Examination: Vital Signs: Temperature 98.1, heart rate 98, blood pressure 142/101, respirations 19, O2 97% on johnathon m air. General: Awake, alert, oriented x3. Some mild distress due to pain. Obese male, ill appearing. HEENT: Normocephalic, atraumatic. PERRLA. EOMI. Moist mucous membranes. Oropharynx is clear. Co njunctivae anicteric. Neck: Supple. No JVD. Trachea midline. CV: S1, S2. Regular rate and rhythm. Peripheral pulses present. No murmurs. Respiratory: Moving air well bilaterally. No wheezing or stridor. No use of accessory muscles. Gastrointestinal: Abdomen is soft, nontender, nondistended. Positive bowel sounds. No guarding or rigidity. Extremities: No clubbing, cyanosis, or edema. No calf tenderness. Neuro: Cranial nerves 2 through 12 intact grossly. No focal neurological deficits. Speech is tori l. Strength is 5/5 bilateral upper and lower extremities. Sensation intact to light touch. Psych: Mood is okay. Affect is full. Insight and judgment are good. Skin: No rashes. Normal skin turgor. Laboratory Data: WBC 6.6, H and H 12.1 and 37.7, platelets 421, neutrophils 63%. INR 1.09. Sodium 141, potassium 3.8, chloride 108, CO2 27, BUN 11, creatinine 0.94, glucose 90, calcium 9, magnesium 2 .6. Troponin less than 0.02. Chest x-ray, I personally reviewed, shows no acute intrathoracic proce ss, suspected right-sided Port-A-Cath tip in the SVC. Assessment And Plan: A 48-year-old male with 1.Unstable angina. The patient has history of myocardial infarction with stents. The patient is on Arixtra at home for Factor V Leiden deficiency. We will resume home medications once reconciled. W e will consult Cardiology. The patient has had recent echocardiogram which showed normal ejection fr action 69%. No other wall motion abnormalities. His lipid panel was abnormal. 2.Coronary artery disease, status post stent, iqug[place] artery, iqugmiut heart, with angina. 3.Factor V Leiden mutation, heterozygous. The patient is on Arixtra daily. The patient did receive today's dose already. 4.History of pulmonary embolism. 5.Obesity, body mass index 36.6. 6.History of pericarditis. 7.History of supraventricular tachycardia. 8.Essential hypertension, not well controlled. We will add p.r.n. medications. Plan: We will add Ranexa to improve anginal symptoms. We will obtain serial cardiac enzymes and EKG . Follow up with Cardiology recommendations. We will admit the patient to Med-Surg, herber as observ deshawn. MARIN Voice ID: [id number]
--- NOTE | 2018-10-21 06:24 | EKG ---
Test Date: 2018-10-20 Test Time: 11:11:58 Sock Boarder: SID MEASUREMENT RESULTS: Intervals: Rate: 133 ND: 144 QRSD: 80 QT: 294 QTc: 437 Ingram: P: 33 ND: 144 QRS: 14 T: 46 INTERPRETIVE STATEMENTS: Sinus tachycardia Nonspecific ST abnormality Abnormal ECG Compared to ECG 09/18/2018 08:54:05 ST (T wave) deviation now present Electronically Signed On 10-21-18 06:14:46 PATIENT ACCOUNT REPRESENTATIVE by Hair Abreu
[2018-10-21] MEDS ORDERED: FONDAPARINUX SOD 7.5 MG/0.6 ML SQ SCH (09:00)
[2018-10-21] MEDS ORDERED: NEBIVOLOL HCL 20 MG TABLET PO SCH (09:00)
[2018-10-21] MEDS ORDERED: LISINOPRIL 10 MG TAB PO SCH (09:00)
[2018-10-21] MEDS ORDERED: CLOPIDOGREL 75 MG TABLET PO SCH (09:00)
--- NOTE | 2018-10-22 12:56 | P.PN ---
Date of Service: 10/22/18 Patient signed out AMA shortly after being admitted. He was requesting IV dilaudid for chest pain by name, he has hx of drug seeking behavior and has left AMA in the past when IV narcotics are not given. He reports allergy to morphine. He was counseled regarding staying in the hospital for further work up but still decided to leave AMA. Patient understood the risks.
== END 2018-10-20 18:36 | disposition left against medical advice (07) ==
LOC: ER 11:00 → ERHOLD 13:10 → 4TH 15:08
PROVIDERS: ADMIT Family Medicine; ATTEND Family Medicine
DX: I25.110 Atherosclerotic heart disease of native coronary artery with unstable angina pectoris (principal); D68.51 Activated protein C resistance; I10 Essential (primary) hypertension; E66.9 Obesity, unspecified; Z68.36 Body mass index [BMI] 36.0-36.9, adult; Z95.5 Presence of coronary angioplasty implant and graft; I25.2 Old myocardial infarction; Z86.711 Personal history of pulmonary embolism
CPT/HCPCS: 36415; 71045; 80048; 80076; 83735; 83880; 84484; 85025; 85610; 92977; 93005; 94760; 96361; 96374; 96375; 99285; G0378; J1170; J1652; J2405; J2997; J7030

== ENCOUNTER 2018-11-14 09:21 | Observation (INO) | payer BC ==
--- OUTSIDE RECORDS SUMMARY | 2018-11-14 09:42 | XMS REPORT | Clinical Summary ---
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, unspecified vessel [...] coagulation factor deficiency; Coronary artery disease involving [place] heart with unstable angina pectoris, unspecified vessel or lesion type after 11/13/2017 Family History Medical History Relation Name Comments [...] Taken Blood Pressure 140/91 09/27/2018 4:24 PM SINGER BACK TENDER Pulse 117 09/27/2018 4:24 PM SINGER BACK TENDER Temperature 37 C (98.6 F) 09/27/2018 4:24 PM SINGER BACK TENDER Respiratory Rate 18 09/27/2018 4:24 PM SINGER BACK TENDER Oxygen Saturation 100% 09/27/2018 4:24 PM SINGER BACK TENDER Inhaled Oxygen Concentration - - Weight 87.7 [...] Timed 12/14/2017 10:28 Results for this AM SINGER BACK TENDER procedure are in the results section. DIRECT TISH' (MAURI) Timed 12/14/2017 10:28 Results for this AM SINGER BACK TENDER procedure are in the results section. ANTIBODY IDENTIFICATION Timed 12/14/2017 10:28 Results for this AM SINGER BACK TENDER procedure are in the results section. TYPE AND SCREEN Routine 12/14/2017 10:28 Results for this AM SINGER BACK TENDER procedure are in the results section. HC COMPLETE BLD COUNT STAT 12/14/2017 8:35 Results for this W/AUTO DIFF AM SINGER BACK TENDER procedure are in the results section. VANCOMYCIN LEVEL, Timed 12/14/2017 8:35 Results for this TROUGH AM SINGER BACK TENDER procedure are in the results section. CT ANGIOGRAM PE CHEST Routine 12/13/2017 2:28 Results for this PM [employer]INGER BACK TENDER procedure are in the results section. BLOOD CULTURE, AEROBIC Routine 12/13/2017 10:40 Results for this & ANAEROBIC AM SINGER BACK TENDER procedure are in the results section. INFLUENZA ANTIGEN Routine 12/13/2017 10:10 Results for this AM SINGER BACK TENDER procedure are in the results section. ZZESTIMATED GFR Routine 12/13/2017 5:10 Results for this AM SINGER BACK TENDER procedure are in the results section. HC COMPLETE BLD COUNT Routine 12/13/2017 5:10 Results for this W/AUTO DIFF AM SINGER BACK TENDER procedure are in the results section. BASIC METABOLIC PANEL Routine 12/13/2017 5:10 Results for this AM SINGER BACK TENDER procedure are in the results section. TROPONIN Timed 12/13/2017 12:07 Results for this AM SINGER BACK TENDER procedure are in the results section. TROPONIN Timed 12/12/2017 2:47 Results for this PM [employer]INGER BACK TENDER procedure are in the results section. LIPID PANEL Routine 12/12/2017 2:47 Results for this PM [employer]INGER BACK TENDER procedure are in the results section. TROPONIN Timed 11/27/2017 11:47 Results for this AM SINGER BACK TENDER procedure are in the results section. ECG 12-LEAD Routine 11/27/2017 11:02 Results for this AM SINGER BACK TENDER procedure are in the results section. CBC WITH PLATELET AND Timed 11/27/2017 5:38 Results for this DIFFERENTIAL AM SINGER BACK TENDER procedure are in the results section. BASIC METABOLIC PANEL Timed 11/27/2017 5:38 Results for this AM SINGER BACK TENDER procedure are in the results section. ZZESTIMATED GFR Timed 11/27/2017 5:38 Results for this AM SINGER BACK TENDER procedure are in the results section. TROPONIN Timed 11/27/2017 5:38 Results for this AM SINGER BACK TENDER procedure are in the results section. TROPONIN Routine 11/26/2017 11:35 Results for this PM SINGER BACK TENDER procedure are in the results section. ECG 12-LEAD Routine 11/26/2017 10:59 Results for this PM SINGER BACK TENDER procedure are in the results section. after 11/13/2017 Results Transfuse RBC (06/15/2018 5:50 PM CDT)Only the most recent of2 resultswithin the time period is included.Troponin (05/13/2018 12:34 PM CDT)Only the most recent of9 resultswithin the time period is included. Troponin <0.300 0.000 - 0.300 ng/mL [facility] DEPARTMENT OF Comment: PATHOLOGY AND GENOMIC 0.30 - 1.49 ng/mlMay indicate increased risk of acute MEDICINE coronary syndrome. >=1.5 ng/mlConsistent with acute myocardial infarction. The diagnostic value of a single normal or non-diagnostic result is questionable.Serial samples at 2-6 hour intervals are required to rule out acute myocardial injury. Specimen Plasma specimen Performing Organization Address [facility] Phone Number [facility] DEPARTMENT OF PATHOLOGY AND [address] [place] [address] [place] [address] [employer] [facility] Prothrombin time with INR (05/13/2018 6:30 AM CDT)Only the most recent of2 resultswithin the time period is included. Prothrombin time 12.6 12.0 - 15.0 sec [facility] DEPARTMENT OF PATHOLOGY AND GENOMIC MEDICINE INR 0.9 [facility] DEPARTMENT OF Comment: PATHOLOGY AND GENOMIC The International Normalized Ratio (INR) is a therapeutic MEDICINE monitoring tool for patients who are stable on oral anticoagulant therapy. An INR of 2.0-3.0 is suggested for deep vein thrombosis/pulmonary embolism. Specimen Blood Performing Organization Address [facility] Phone Number [facility] AND [address] [place] [address] [place] [address] [facility] ECG 12 lead (05/13/2018 5:49 AM CDT)Only the most recent of4 resultswithin the time period is included. Ventricular rate 85 [facility] Atrial rate 85 [facility] IN interval 158 [facility] QRSD interval 78 [...] longer present-premature ventricular complexes are no longer [facility] MUSE present-premature supraventricular complexes are no longer present- Performing Organization Address City/[facility] Phone Number [facility] MUSE [address] [place] [address] Smear review (05/13/2018 12:35 AM CDT)Only the most recent of2 resultswithin the time period is included. Platelet slide review Antonia adequate [facility] DEPARTMENT OF PATHOLOGY AND GENOMIC MEDICINE Anisocytosis Moderate [facility] DEPARTMENT OF PATHOLOGY AND GENOMIC MEDICINE Tear drop cells Occasional [facility] DEPARTMENT OF PATHOLOGY AND GENOMIC MEDICINE Schistocytes Occasional [facility] DEPARTMENT OF PATHOLOGY AND GENOMIC MEDICINE Performing Organization Address [facility] Phone Number [facility] DEPARTMENT OF PATHOLOGY AND [address] [place] [address] [place] [address] [facility] Estimated GFR (05/13/2018 12:35 AM CDT)Only the most recent of4 resultswithin the time period is included. GFR Non Af Amer 80 mL/min/1.73 m2 [facility] DEPARTMENT OF PATHOLOGY AND GENOMIC MEDICINE GFR Af Amer >90 mL/min/1.73 m2 [facility] DEPARTMENT OF Comment: PATHOLOGY AND GENOMIC [...] Americans. Specimen Plasma specimen Performing Organization Address [facility] Phone Number [facility] PATHOLOGY AND [id number] [place] [address] [place] [address] [facility] CBC with platelet and differential (05/13/2018 12:35 AM CDT)Only the most recent of5 resultswithin the time period is included. WBC 9.59 4.50 - 11.00 k/uL [facility] DEPARTMENT OF PATHOLOGY AND GENOMIC MEDICINE RBC 3.86 (L) 4.40 - 6.00 m/uL [facility] DEPARTMENT OF PATHOLOGY AND GENOMIC MEDICINE HGB 9.7 (L) 14.0 - 18.0 g/dL [facility] DEPARTMENT OF PATHOLOGY AND GENOMIC MEDICINE HCT 31.2 (L) 41.0 - 51.0 % [facility] DEPARTMENT OF PATHOLOGY AND GENOMIC MEDICINE MCV 80.8 (L) 82.0 - 100.0 fL [facility] DEPARTMENT OF PATHOLOGY AND GENOMIC MEDICINE MCH 25.1 (L) 27.0 - 34.0 pg [facility] DEPARTMENT OF PATHOLOGY AND GENOMIC MEDICINE MCHC 31.1 31.0 - 37.0 g/dL [facility] DEPARTMENT OF PATHOLOGY AND GENOMIC MEDICINE RDW - SD 75.7 (H) 37.0 - 55.0 fL [facility] DEPARTMENT OF PATHOLOGY AND GENOMIC MEDICINE MPV 8.9 8.8 - 13.2 fL [facility] DEPARTMENT OF PATHOLOGY AND GENOMIC MEDICINE Platelet count 248 150 - 400 k/uL [facility] DEPARTMENT OF PATHOLOGY AND GENOMIC MEDICINE Nucleated RBC 0.00 /100 WBC [facility] DEPARTMENT OF PATHOLOGY AND GENOMIC MEDICINE Neutrophils 45.8 39.0 - 69.0 % [facility] DEPARTMENT OF PATHOLOGY AND GENOMIC MEDICINE Lymphocytes 38.3 25.0 - 45.0 % [facility] DEPARTMENT OF PATHOLOGY AND GENOMIC MEDICINE Monocytes 15.3 (H) 0.0 - 10.0 % [facility] DEPARTMENT OF PATHOLOGY AND GENOMIC MEDICINE Eosinophils 0.3 0.0 - 5.0 % [facility] DEPARTMENT OF PATHOLOGY AND GENOMIC MEDICINE Basophils 0.1 0.0 - 1.0 % [facility] DEPARTMENT OF PATHOLOGY AND GENOMIC MEDICINE Specimen Blood Performing Organization Address City/State/Zipcode Phone Number [facility] DEPARTMENT [facility] AND [address] [place] [address] [facility] MEDICINE Comprehensive metabolic panel (05/13/2018 12:35 AM CDT)Only the most recent of2 resultswithin the time period is included. Sodium 139 135 - 148 mEq/L [facility] DEPARTMENT OF PATHOLOGY AND GENOMIC MEDICINE Potassium 3.5 3.5 - 5.0 mEq/L [facility] DEPARTMENT OF PATHOLOGY AND GENOMIC MEDICINE Chloride 103 98 - 112 mEq/L [facility] DEPARTMENT OF PATHOLOGY AND GENOMIC MEDICINE CO2 24 24 - 31 mEq/L [facility] DEPARTMENT OF PATHOLOGY AND GENOMIC MEDICINE Anion gap 12@ANIO 7 - 15 mEq/L [facility] DEPARTMENT OF PATHOLOGY AND GENOMIC MEDICINE BUN 22 (H) 6 - 20 mg/dL [facility] DEPARTMENT OF PATHOLOGY AND GENOMIC [facility] Creatinine 1.0 0.7 - 1.2 mg/dL [facility] DEPARTMENT OF PATHOLOGY AND GENOMIC [facility] Glucose 102 (H) 65 - 99 mg/dL [facility] DEPARTMENT OF PATHOLOGY AND GENOMIC MEDICINE Calcium 8.1 (L) 8.3 - 10.2 mg/dL [facility] DEPARTMENT OF PATHOLOGY AND GENOMIC [facility] Protein 6.8 6.3 - 8.3 g/dL [facility] DEPARTMENT OF Comment: PATHOLOGY AND GENOMIC 4.6-7.0 g/dL MEDICINE 1 week 4.4-7.6 g/dL 7 months-1year5.1-7.3 g/dL 1-2 years5.6-7.5 g/dL >3 years6.0-8.0 g/dL 18-150 6.3-8.3 g/dL Albumin 4.1 3.5 - 5.0 g/dL [facility] DEPARTMENT OF PATHOLOGY AND GENOMIC [facility] A/G ratio 1.5 0.7 - 3.8 [facility] DEPARTMENT OF PATHOLOGY AND GENOMIC [facility] Alkaline phosphatase 62 40 - 129 U/L [facility] DEPARTMENT OF PATHOLOGY AND GENOMIC MEDICINE AST 16 10 - 50 U/L [facility] DEPARTMENT OF PATHOLOGY AND GENOMIC MEDICINE ALT 11 5 - 50 U/L [facility] DEPARTMENT OF PATHOLOGY AND GENOMIC [facility] Total bilirubin 0.4 0.0 - 1.2 mg/dL [facility] DEPARTMENT OF PATHOLOGY AND GENOMIC [facility] Specimen Plasma specimen Performing Organization Address [facility] Phone Number [facility] DEPARTMENT OF PATHOLOGY AND [address] [place] [address] [place] [address] [facility] Partial thromboplastin time, activated (05/02/2018 10:03 AM CDT) PTT 34.9 23.0 - 36.0 sec [facility] DEPARTMENT OF Comment: PATHOLOGY AND [facility] PTT therapeutic range for unfractionated heparin is MEDICINE 61.0-112.0 seconds which corresponds to Anti-Xa 0.3-0.7 U/ml. Specimen Blood Performing Organization Address [facility] Phone Number [facility] OF PATHOLOGY AND [address] [place] [address] [place] [address] [facility] D-dimer (05/02/2018 10:03 AM CDT) D-dimer <0.27 0.00 - 0.40 ug/mL FEU [facility] DEPARTMENT OF Comment: PATHOLOGY AND GENOMIC Units [...] and malignancies. Specimen Blood Performing Organization Address [facility] Phone Number [facility] DEPARTMENT OF PATHOLOGY AND [id number] [place] [address] [place] [address] [facility] Creatine kinase, total (CPK) (05/02/2018 10:03 AM CDT) Creatine kinase 150 39 - 308 U/L [facility] DEPARTMENT OF PATHOLOGY AND [facility] MEDICINE Specimen Plasma specimen Performing Organization Address [facility] Phone Number [facility] DEPARTMENT OF PATHOLOGY AND [address] [place] [address] [facility] XR Chest 1 Vw Portable (05/02/2018 [...] atrium IMPRESSION: No acute finding is visualized [id number] Procedure Note Interface, Radiology Results Incoming - [...] atrium IMPRESSION: No acute finding is visualized [id number] Performing Organization Address [facility] Phone Number [facility] [address] [place] [address] ECG ED Preliminary Interpretation - NOT AN ORDER (05/02/2018 9:27 AM CDT) Narrative Performed At Saeed Diana MD 05/02/20187:36 PM ECG ED Preliminary Interpretation - Not an Order Performed by: SAEED DIANA Authorized by: SAEED DIANA ECG reviewed by ED Physician in the absence of a licensed mortgage loan officer: yes (read at 0921) Interpretation: Interpretation: normal Rate: ECG rate:87 ECG rate assessment: normal Rhythm: Rhythm: sinus rhythm Ectopy: Ectopy: none QRS: QRS axis:Normal Conduction: Conduction: normal ST segments: ST segments:Normal T waves: T waves: normal Direct Tish' (MAURI) (12/14/2017 10:28 AM SINGER BACK TENDER) Direct Tish POS [facility] DEPARTMENT OF PATHOLOGY Comment: AND GENOMIC MEDICINE testing performed at [facility], called kian in [place] with critical 12/14/17 at 2000 Performing Organization Address City/[facility] Phone Number [facility] DEPARTMENT OF PATHOLOGY AND [id number] [place] [address] [place] [address] GENOMIC MEDICINE Antibody identification (12/14/2017 10:28 AM SINGER BACK TENDER) Antibody ID POS, Anti-EComment: ADDING [facility] DEPARTMENT OF PATHOLOGY AND [facility] GENOMIC MEDICINE Antibody ID POS, Anti-KellComment: ADDING [facility] DEPARTMENT OF PATHOLOGY AND [facility] GENOMIC MEDICINE Antibody ID POS, Bg AntibodyComment: [facility] DEPARTMENT OF PATHOLOGY AND ADDING [facility] GENOMIC MEDICINE Performing Organization Address [facility] Phone Number [facility] DEPARTMENT OF PATHOLOGY AND [id number] [place] [address] [place] [address] GENOMIC MEDICINE Prepare RBC, 2 Units (12/14/2017 10:28 AM SINGER BACK TENDER) Product name Red Blood Cells -1, [facility] DEPARTMENT OF Leukored PATHOLOGY AND GENOMIC MEDICINE Unit number [id number] [facility] DEPARTMENT OF PATHOLOGY AND GENOMIC MEDICINE Product code [id number] [facility] DEPARTMENT OF PATHOLOGY AND GENOMIC MEDICINE Dispense status Transfused [facility] DEPARTMENT OF PATHOLOGY AND GENOMIC MEDICINE Blood expiration date [facility] DEPARTMENT OF PATHOLOGY AND GENOMIC MEDICINE Blood type code 6200 [facility] DEPARTMENT OF PATHOLOGY AND GENOMIC MEDICINE Blood type A POSITIVE [facility] DEPARTMENT OF PATHOLOGY AND GENOMIC MEDICINE Product name Red Blood Cells -1, [facility] DEPARTMENT OF Leukored PATHOLOGY AND GENOMIC MEDICINE Unit number [id number] [facility] DEPARTMENT OF PATHOLOGY AND GENOMIC MEDICINE Product code [id number] [facility] DEPARTMENT OF PATHOLOGY AND GENOMIC MEDICINE Dispense status Transfused [facility] DEPARTMENT OF PATHOLOGY AND GENOMIC MEDICINE Blood expiration date [id number] [facility] DEPARTMENT OF PATHOLOGY AND GENOMIC MEDICINE Blood type code 6200 [facility] DEPARTMENT OF PATHOLOGY AND GENOMIC MEDICINE Blood type A POSITIVE [facility] DEPARTMENT OF PATHOLOGY AND GENOMIC MEDICINE Performing Organization Address [facility] Phone Number [facility] DEPARTMENT OF PATHOLOGY AND [address] [place] [address] [place] [address] GENOMIC MEDICINE Type and screen (12/14/2017 10:28 AM SINGER BACK TENDER) ABO grouping AB [facility] DEPARTMENT OF PATHOLOGY AND GENOMIC MEDICINE Rh type POS [facility] DEPARTMENT OF PATHOLOGY AND GENOMIC MEDICINE Antibody screen POS [facility] DEPARTMENT OF PATHOLOGY AND GENOMIC MEDICINE Specimen Blood Performing Organization Address [facility] Phone Number [facility] DEPARTMENT OF PATHOLOGY AND [address] [place] [address] Vancomycin level, trough (12/14/2017 8:35 AM SINGER BACK TENDER) Vancomycin, trough 6.1 (L) 10.0 - 20.0 ug/mL [facility] DEPARTMENT OF Comment: PATHOLOGY AND GENOMIC Therapeutic Ranges: MEDICINE Peak 30.0 - 40.0 ug/mL Lykawm69.0 - 20.0 ug/mL Specimen Serum Performing Organization Address [facility] Phone Number [facility] DEPARTMENT [facility] AND [address] [place] [address] Angiogram Pe Chest (12/13/2017 2:28 PM SINGER BACK TENDER) Narrative Performed At EXAMINATION: [facility] CT ANGIOGRAM PE CHEST CLINICAL HISTORY:47 years [...] 2. Mild scarring at the lung bases. [id number] Procedure Note [facility], Radiology Results Incoming - 12/13/2017 2:52 PM SINGER BACK TENDER EXAMINATION: CT ANGIOGRAM PE CHEST CLINICAL HISTORY:47 [...] 2. Mild scarring at the lung bases. [id number] Performing Organization Address City/State/Zipcode Phone Number [facility] [address] [employer] [address] Blood culture, aerobic & anaerobic (12/13/2017 10:40 AM SINGER BACK TENDER) Blood culture isolate No growth after 5 days of incubation. [facility] DEPARTMENT OF Comment: PATHOLOGY AND GENOMIC Specimen Information MEDICINE Specimen Source: Blood Specimen Site: Line, port-a-cath Right Specimen Blood - Line, port-a-cath Performing Organization Address City/State/Zipcode Phone Number [facility] DEPARTMENT OF PATHOLOGY AND [address] [place] [address] [facility] MEDICINE Influenza antigen (12/13/2017 10:10 AM SINGER BACK TENDER) Influenza antigen Negative for Influenza A/B antigen. [facility] DEPARTMENT OF Comment: PATHOLOGY AND GENOMIC Specimen Information MEDICINE Specimen Source: Nares Specimen Site: Not specified Specimen Nares - Not specified Performing Organization Address [facility] Phone Number [facility] DEPARTMENT PATHOLOGY AND [id number] [place] [address] [place] [address] [facility] MEDICINE Basic metabolic panel (12/13/2017 5:10 AM SINGER BACK TENDER)Only the most recent of2 resultswithin the time period is included. Sodium 133 (L) 135 - 148 mEq/L [facility] DEPARTMENT OF PATHOLOGY AND GENOMIC MEDICINE Potassium 4.1 3.5 - 5.0 mEq/L [facility] DEPARTMENT OF PATHOLOGY AND GENOMIC MEDICINE Chloride 97 (L) 98 - 112 mEq/L [facility] DEPARTMENT OF PATHOLOGY AND GENOMIC MEDICINE CO2 24 24 - 31 mEq/L [facility] DEPARTMENT OF PATHOLOGY AND GENOMIC MEDICINE Anion gap 12 7 - 15 mEq/L [facility] DEPARTMENT OF Comment: PATHOLOGY AND GENOMIC Starting from January , anion gap calculation MEDICINE no longer incorporates potassium. Please note the change. BUN 20 6 - 20 mg/dL [facility] DEPARTMENT OF PATHOLOGY AND GENOMIC MEDICINE Creatinine 1.3 (H) 0.7 - 1.2 mg/dL [facility] DEPARTMENT OF PATHOLOGY AND GENOMIC MEDICINE Glucose 119 (H) 65 - 99 mg/dL [facility] DEPARTMENT OF PATHOLOGY AND GENOMIC MEDICINE Calcium 8.8 8.3 - 10.2 mg/dL [facility] DEPARTMENT OF PATHOLOGY AND GENOMIC MEDICINE Specimen Plasma specimen Performing Organization Address City/[facility] Phone Number [facility] DEPARTMENT OF PATHOLOGY AND [address] [place] [address] [place] [address] [facility] MEDICINE Lipid panel (12/12/2017 2:47 PM SINGER BACK TENDER) Cholesterol 189 <200 mg/dL [facility] DEPARTMENT OF PATHOLOGY AND GENOMIC MEDICINE Triglycerides 65 <150 mg/dL [facility] DEPARTMENT OF PATHOLOGY AND GENOMIC MEDICINE HDL cholesterol 72 >40 mg/dL [facility] DEPARTMENT OF PATHOLOGY AND GENOMIC MEDICINE LDL cholesterol 116 (H)Comment: Result <100 mg/dL [facility] DEPARTMENT obtained by direct LDL PATHOLOGY AND GENOMIC measurement MEDICINE Lipid panel interpretation SeeBelow [facility] DEPARTMENT OF Comment: PATHOLOGY AND GENOMIC Total Cholesterol (mg/dL) MEDICINE <200 Desirable [id number] >=240High Triglycerides (mg/dL) <150 Normal [id number]-ipdn 200-499High >=500Very high HDL Cholesterol (mg/dL) <40Low (male) <40Low (female) LDL Cholesterol (mg/dL) <100 Optimal 100-129Near or above optimal [phone]-lqlo 160-189High >=190Very high Risk Catergories that modify [...] mg/dL) Specimen Plasma specimen Performing Organization Address City/State/[facility] Phone Number [facility] DEPARTMENT OF PATHOLOGY AND [address] [place] [address] GENOMIC MEDICINE after 11/13/2017 Insurance Payer Benefit Plan / Group Subscriber ID Type Phone Address [employer] EXCHANGE BLUE ADVANTAGE HMO EXCH xxxxxxxxxxxx Exchange (Work) [phone] Advance Directives Patient has advance care planning documents, and code status on file. For more information, please contact:Owen Ruggiero[address] [place], [place] [address] [place] [address] Code Status Date Activated Date Inactivated Comments Full Code 09/27/2018 3:37 PM 09/27/2018 11:00 PM Code Status decision reached by: Patient Full Code 11/26/2017 10:45 PM 11/28/2017 1:56 AM Code Status decision reached by: Patient
--- OUTSIDE RECORDS SUMMARY | 2018-11-14 09:43 | XMS REPORT | Clinical Summary ---
:1970 Author Organization [facility] Address [address] [place] [address] Care Team Providers Name Role Phone Blanco [...] Hospital Encounter General Internal Winston Daniels 02/01/2018 MD Kin Mccartney Salman Siraj, MD 01/31/2018 Orders Only Yoseph Ortega, ADRIANA 01/24/2018 Orders Only General Internal Medicine 01/22/2018 - Hospital Encounter General Internal Megan Carrington 01/25/2018 MD Dominique Tomlinson, MD Jeremiah Prieto, MD Kin Slater, Wiliam Roth MD after 11/13/2017 Family History Medical History Relation [...] Taken Blood Pressure 110/74 09/27/2018 5:57 AM [facility] Pulse 71 09/27/2018 5:57 AM [facility] Temperature 35.7 C (96.2 F) 09/27/2018 5:57 AM [facility] Respiratory Rate 18 09/27/2018 5:57 AM [facility] Oxygen Saturation 99% 09/27/2018 5:57 AM [facility] Inhaled Oxygen Concentration - - Weight 90.7 kg (200 lb) 09/27/2018 5:57 AM [facility] Height 170.2 cm (5' 7") 09/27/2018 5:57 AM [facility] Body Mass Index 31.32 09/27/2018 5:57 AM [facility] Plan of Treatment Health Maintenance Due Date Last Done Comments INFLUENZA VACCINE 07/11/2018 Procedures Procedure Name Priority Date/Time Associated Comments Diagnosis RHYTHM STRIP - SCAN 10/07/2018 9:00 AM [facility] REPORT OF PROCEDURE - 10/07/2018 9:00 ENDOSCOPY SCAN AM [facility] CBC W/PLT COUNT & AUTO Routine 09/27/2018 5:59 Results for this DIFFERENTIAL AM [facility] procedure are in the results section. TROPONIN I Routine 09/27/2018 5:59 Results for this AM [facility] procedure are in the results section. CBC W/PLT COUNT & AUTO Routine 09/27/2018 5:59 Results for this DIFFERENTIAL AM [facility] procedure are in the results section. PHOSPHORUS Routine 09/27/2018 5:59 Results for this AM [facility] procedure are in the results section. MAGNESIUM Routine 09/27/2018 5:59 Results for this AM [facility] procedure are in the results section. LIPID PANEL Routine 09/27/2018 5:59 Results for this AM [facility] procedure are in the results section. PT/APTT Routine 09/27/2018 5:59 Results for this AM [facility] procedure are in the results section. BASIC METABOLIC PANEL (7) Routine 09/27/2018 5:59 Results for this AM [facility] procedure are in the results section. REPORT OF PROCEDURE - 09/07/2018 9:22 ENDOSCOPY SCAN AM [facility] RHYTHM STRIP - SCAN 09/07/2018 9:22 AM [facility] (MANUAL DIFFERENTIAL) Routine 09/03/2018 8:16 Results for this AM [facility] procedure are in the results section. CBC W/PLT COUNT & AUTO Routine 09/03/2018 8:16 Results for this DIFFERENTIAL AM [facility] procedure are in the results section. CBC W/PLT COUNT & AUTO Routine 09/03/2018 8:16 Results for this DIFFERENTIAL AM [facility] procedure are in the results section. CBC W/PLT COUNT & AUTO STAT 09/03/2018 3:33 Results for this DIFFERENTIAL AM [facility] procedure are in the results section. CBC W/PLT COUNT & AUTO STAT 09/03/2018 3:33 Results for this DIFFERENTIAL AM [facility] procedure are in the results section. HEMOGLOBIN A1C STAT 09/03/2018 3:33 Results for this AM [facility] procedure are in the results section. LIPID PANEL STAT 09/03/2018 3:33 Results for this AM [facility] procedure are in the results section. BASIC METABOLIC PANEL (7) STAT 09/03/2018 3:33 Results for this AM [facility] procedure are in the results section. TROPONIN I STAT 09/03/2018 3:33 Results for this AM [facility] procedure are in the results section. TROPONIN I STAT 09/02/2018 2:50 Results for this PM [facility] procedure are in the results section. CT CHEST PE TEST DESIGN STAT 09/02/2018 7:51 Results for this AM [facility] procedure are in the results section. XR CHEST 1 VIEW STAT 09/02/2018 6:54 Results for this PORTABLE/BEDSIDE AM [facility] procedure are in the results section. CBC W/PLT COUNT & AUTO STAT 09/02/2018 6:39 Results for this DIFFERENTIAL AM [facility] procedure are in the results section. B-TYPE NATRIURETIC FACTOR STAT 09/02/2018 6:39 Results for this (BNP) AM [facility] procedure are in the results section. PT/APTT STAT 09/02/2018 6:39 Results for this AM [facility] procedure are in the results section. CBC W/PLT COUNT & AUTO STAT 09/02/2018 6:39 Results for this DIFFERENTIAL AM [facility] procedure are in the results section. TROPONIN I STAT 09/02/2018 6:39 Results for this AM [facility] procedure are in the results section. MAGNESIUM STAT 09/02/2018 6:39 Results for this AM [facility] procedure are in the results section. BASIC METABOLIC PANEL (7) STAT 09/02/2018 6:39 Results for this AM [facility] procedure are in the results section. ED ECG INTERPRETATION Routine 09/02/2018 6:33 Results for this AM [facility] procedure are in the results section. REPORT [...] 366 ms QTC Calculation(Bazett) 430 ms P Columbia 44 degrees R Columbia 29 degrees T Columbia 12 degrees Sinus rhythm with occasional Premature ventricular complexes Otherwise normal ECG TROPONIN I Routine 01/22/2018 1:16 PM CDT CREATINE KINASE (CK), Routine 01/22/2018 1:16 PM CDT Results for this procedure TOTAL AND MB are in the results section. after 11/13/2017 Results RHYTHM STRIP - SCAN (10/07/2018 9:00 AM [facility])Only the most recent of5 resultswithin the time period is included. Narrative Performed At EKG-SCANNED (10/07/2018 9:00 AM [facility])Only the most recent of7 resultswithin the time period is included. Narrative Performed At PT/aPTT (09/27/2018 5:59 AM [facility])Only the most recent of5 resultswithin the time period is included. Protime 10.3 9.3 - 12.0 sec [facility] INR 0.9 <=5.9 [facility] PTT 21.9 (L) 23.0 - 35.0 sec [facility] Specimen Blood Narrative Performed At RECOMMENDED COUMADIN/WARFARIN INR THERAPY RANGES [facility] STANDARD DOSE: 2.0 - 3.0 Includes: PROPHYLAXIS for venous thrombosis, systemic embolization; TREATMENT for venous thrombosis and/or pulmonary embolus. HIGH RISK: Target INR is 2.5-3.5 for patients with mechanical heart valves. Final Information (Auto Output) Final Information (Auto Output) Final Information (Auto Output) Performing Organization Address City/State/Zipcode Phone Number [facility] [address] [place] [address] CBC with platelet count + automated diff (09/27/2018 5:59 AM [facility])Only the most recent of13 resultswithin the time period is included. WBC 5.8 4.0 - 10.0 K/L [facility] RBC 4.06 (L) 4.20 - 5.80 M/L [facility] Hemoglobin 8.8 (L) 13.0 - 16.8 GM/DL [facility] Hematocrit 32.4 (L) 36.0 - 50.0 % [facility] MCV 79.8 (L) 82.0 - 99.0 fL [facility] MCH 21.7 (L) 27.0 - 33.0 pg [facility] MCHC 27.2 (L) 32.0 - 36.0 GM/DL [facility] RDW 18.9 (H) 12.0 - 15.0 % [facility] Platelets 340 150 - 430 K/CU MM [facility] MPV 9.3 6.0 - 11.5 fL [facility] nRBC 0 0 - 0 /100 [...] [facility] Specimen Blood Performing Organization Address [facility] Phone Number [facility] [place] [address] Troponin I (09/27/2018 5:59 AM [facility])Only the most recent of12 resultswithin the time period is included. Troponin I <0.03 0.00 - 0.15 ng/mL [facility] Specimen Blood Narrative Performed At Troponin I (TnI) levels must be interpreted in the context of [facility] the presenting symptoms and the clinical [...] persistent tachyarrhythmia. Performing Organization Address [facility] Phone Number [facility] [address] [place] [phone] Phosphorus (09/27/2018 5:59 AM [facility]) Phosphorus 3.1 2.5 - 4.5 mg/dL [facility] Specimen Blood Performing Organization Address [facility] Phone Number [facility] [address] [place] [address] [phone] Magnesium (09/27/2018 5:59 AM [facility])Only the most recent of3 resultswithin the time period is included. Magnesium 2.3 1.5 - 3.0 mg/dL [facility] Specimen Blood Performing Organization Address [facility] Phone Number [facility] [address] [place] [address] [phone] Lipid panel (09/27/2018 5:59 AM [facility])Only the most recent of3 resultswithin the time period is included. Triglycerides 93 mg/dL [facility] Cholesterol 235 mg/dL [facility] HDL 44 mg/dL [facility] LDL Calculated 172 mg/dL [facility] Specimen Blood Narrative Performed At Triglyceride Reference Range: [facility] Low Risk <150 [id number] High Risk 200-499 Very High Risk>=500 Cholesterol Reference Range: Low Risk <200 [id number] High Risk>240 HDL Cholesterol Reference Range: Low Risk >=60 High Risk <40 LDL Cholesterol Reference Range: Optimal<100 Near [id number] [id number] Very High >=190 Performing Organization Address [facility] Phone Number [facility] [address] [place] [address] Basic metabolic panel (09/27/2018 5:59 AM [facility])Only the most recent of11 resultswithin the time [...] DIALYSIS PATIENTS. Specimen Blood Performing Organization Address [facility] Phone Number [facility] [address] [place] [address] Manual Differential (09/03/2018 8:16 AM [facility])Only the most recent of9 resultswithin the time period is included. % Neutros (manual) 39 % [facility] % Lymphs (manual) 44 % [facility] % Monos (manual) 13 % [facility] % Eos (manual) 4 % [facility] # Neutros (manual) 1.91 1.80 - 8.00 K/L [facility] # Lymphs (manual) 2.16 1.48 - 4.50 K/L [facility] # Monos (manual) 0.64 0.00 - 1.30 K/L [facility] # Eos (manual) 0.20 0.00 - 0.50 K/L [facility] Total Counted 100 [facility] WBC Morphology Normal [facility] RBC Morphology Normal [facility] Large Platelet Present [facility] Specimen Blood - Central Venous Line Performing Organization Address City/State/Zipcode Phone Number [facility] [address] [place] [address] Hemoglobin A1c (09/03/2018 3:33 AM [facility]) Hemoglobin A1C 5.7 4.3 - 6.1 % [facility] Specimen Blood Performing Organization Address City/[facility]/Zipcode Phone Number [facility] [address] [place] [address] CT chest PE test design (09/02/2018 7:51 AM [facility])Only the most recent of4 resultswithin the time period is included. Narrative Performed At FINAL REPORT [facility] INDICATION: 48-year-old male with chest pain. Evaluate [...] MD Report Verified Date/Time:09/02/2018 08:14:32 Reading Location: [facility] Diagnostic Imaging Reading Room - [place] [address] Procedure Note Interface, External Ris In - 09/02/2018 8:16 AM [facility] FINAL REPORT INDICATION: 48-year-old male with chest [...] Report Verified Date/Time: 09/02/2018 08:14:32 Reading Location: [facility] Diagnostic Imaging Reading Room - [facility] F1 1120 Performing Organization Address City/State/Zipcode Phone Number [facility] XR chest 1 view portable / bedside (09/02/2018 6:54 AM [facility])Only the most recent of2 resultswithin the time period is included. Narrative Performed At [facility] Chest one view. Clinical history: CHEST PAIN [...] MD Report Verified Date/Time:09/02/2018 07:10:11 Reading Location: [address] Body Reading Room Procedure Note Interface, External Ris In - 09/02/2018 7:12 AM [facility] FINAL REPORT Chest one view. Clinical history: [...] Report Verified Date/Time: 09/02/2018 07:10:11 Reading Location: [facility] C0Y CT Body Reading Room Performing Organization Address City/State/Zipcode Phone Number [facility] B-type Natriuretic Factor (BNP) (09/02/2018 6:39 AM [facility])Only the most recent of4 resultswithin the time period is included. BNP 150 (H) 0 - 100 pg/mL [facility] Specimen Blood - Line, Venous Performing Organization Address City/State/Zipcode Phone Number [facility] [address] [place], [place] [address] ECG/EKG Interpretation (09/02/2018 6:33 AM [facility])Only the most recent of3 resultswithin the time period is included. Narrative Performed At Aleks Robbins DO 09/02/20188:52 AM ECG/EKG Interpretation Date/Time: 09/02/2018 6:28 AM Performed by: Aleks Robbins DO Authorized by: Aleks Robbins DO The ECG was interpreted by ED physician. The ECG is interpreted as sinus tachycardia. Rate is tachycardic. Heart rate is [address] segments normal. Columbia is normal. Clinical Impression: non-specific ECGECG reviewed and does not meet STEMI criteria. Patient tolerance: Patient tolerated the procedure well with no immediate complications Lactic acid, venous, whole blood (05/24/2018 2:18 PM CDT)Only the most recent of2 resultswithin the time period is included. Lactate, Venous 1.3 0.5 - 2.2 mmol/L [facility] Specimen Blood Narrative Performed At [facility] Effective 02/12/2016: Units/Reference Range Change New: 0.5-2.2 mmol/LPrevious: 5-18 mg/dL Performing Organization Address [facility] Phone Number [address] [address] Urinalysis w/Microscopic + Reflex to Culture (05/24/2018 1:51 PM CDT) Color, UA Yellow [facility] Clarity, UA Clear [facility] Specific [place]ley, UA 1.010 1.001 - 1.035 [facility] pH, UA 7.0 5.0 - 8.0 [facility] Protein, UA Negative Negative [facility] Glucose, UA Negative Negative [facility] Ketones, UA Negative Negative [facility] Bilirubin, UA Negative Negative [facility] Blood, UA Negative Negative [facility] Nitrite, UA Negative Negative [facility] Leukocytes, UA Negative Negative [facility] Urobilinogen, UA 0.2 0.2 - 1.0 mg/dL [facility] Bacteria, UA None Seen [facility] RBC, UA None Seen /HPF [facility] WBC, UA <5 /HPF [facility] SQUAMOUS EPITHELIAL None Seen /HPF [facility] Specimen Source [facility] Specimen Urine - Urine, Clean Catch Performing Organization Address [facility] Phone Number [place] [phone] [place] [address] [phone] Blood culture (05/24/2018 12:50 PM CDT)Only the most recent of2 resultswithin the time period is included. Result No growth in 5 days [facility] Specimen Blood - Line, Venous Performing Organization Address [facility] Phone Number [facility] [address] [place] [address] Creatine Kinase (CK), Total and MB (not available at [facility] [place]) (2017 9:55 AM CDT)Only the most recent of3 resultswithin the time period is included. Total CK 76 40 - 250 U/L [facility] CK-MB 1.2 0.0 - 4.9 ng/mL [facility] MB Relative Index 1.6 % [facility] Specimen Blood - Line, Venous Narrative Performed At CK-MB Reference Range: [facility] <5 Normal 5-10 Borderline >10Abnormal Performing Organization Address [facility] Phone Number [address] [address] [phone] Hepatic function panel (05/24/2018 9:55 AM CDT) Protein, Total 7.0 6.0 - 8.5 gm/dL [facility] Albumin 4.3 3.5 - 5.0 g/dL [facility] Total Bilirubin 0.4 0.1 - 1.2 mg/dL [facility] Bilirubin, Direct 0.2 0.0 - 0.4 mg/dL [facility] Alkaline Phosphatase 70 30 - 115 U/L [facility] AST 18 5 - 40 U/L [facility] ALT 13 5 - 50 U/L [facility] Specimen Blood Performing Organization Address [facility] Phone Number [address] [address] Prothrombin time/INR (04/26/2018 5:08 AM CDT)Only the most recent of8 resultswithin the time period is included. Protime 21.9 (H) 9.3 - 12.0 sec [facility] INR 2.1 <=5.9 [facility] Specimen Blood Narrative Performed At [facility] RECOMMENDED COUMADIN/WARFARIN INR THERAPY RANGES STANDARD DOSE: 2.0 - 3.0 Includes: PROPHYLAXIS for venous thrombosis, systemic embolization; TREATMENT for venous thrombosis and/or pulmonary embolus. HIGH RISK: Target INR is 2.5-3.5 for patients with mechanical heart valves. Final Information (Auto Output) Final Information (Auto Output) Performing Organization Address City/[facility] Phone Number [facility] [address] [place] [address] aPTT (04/26/2018 12:43 AM CDT)Only the most recent of18 resultswithin the time period is included. PTT >150.0 (HH) 23.0 - 35.0 sec [facility] Specimen Blood Narrative Performed At Final Information (Auto Output) [facility] Performing Organization Address [facility] Number [facility] [address] [place], [place] [address] TRANSFUSION SERVICE REPORT - SCAN (04/21/2018 6:05 PM CDT)Only the most recent of3 resultswithin the time period is included. Narrative Performed At Prepare Leuko-Red RBC (04/20/2018 11:54 PM CDT) Unit ABO A Pos [facility] [place] UNIT NUMBER [id number] [facility] [place] Status TRANSFUSED [facility] [place] Blood Bank Product RED BLOOD CELLS [facility] [place] PRODUCT CODE [id number] [facility] [place] CROSSMATCH COMPATIBLE [facility] Specimen Other Performing Organization Address [facility] Phone Number [facility] [place] CBC (Hemogram only) [...] RDW 20.0 (H) 10.3 - 14.2 % [facility] Platelets 360 150 - 430 K/CU MM [facility] MPV 7.4 6.5 - 10.5 fL [facility] Specimen Blood Performing Organization Address City/[facility] Phone Number [facility] [address] [place] [address] [phone] D-dimer (04/20/2018 7:53 AM CDT) D-Dimer, Quant 0.93 (H) <0.50 mg/L [facility] Specimen Blood Narrative Performed At [facility] REGARDING D-DIMER RESULTS: The 98% NPV (Negative Predictive Value) for DVT/PE exclusion is 0.50 mg/L FEU as suggested by the esl instructional assistant and as approved by the FDA. Final Information (Auto Output) Performing Organization Address [facility] Phone Number [facility] [address] [place], [place] [address] [phone] Antibody identification (04/19/2018 5:19 PM CDT) ANTIBODY ID (NIMO) Anti-EComment: Testing performed by: [facility], [address] [place] [address] Antibody Consult SIGNED OUTComment: Anti E causes RBC [facility] [place] injury, transfuse E negative RBCs.Electronic Signature: Ayaz Feliz M.D. Performing Organization Address [facility] Phone Number [facility] [place] Transfuse Leuko-Red RBC (04/19/2018 5:21 AM CDT)Only the most recent of2 resultswithin the time period is included.PERIPHERAL VASCULAR REPORT - SCAN (06/2018 1:00 PM CDT) Narrative Performed At Venous doppler legs bilateral (04/18/2018 11:50 AM CDT) Narrative Performed At FINAL REPORT [facility] History: Lower extremity swelling Comparison: [...] MD Report Verified Date/Time:04/18/2018 12:31:58 Reading Location: [facility] Radiology Reading Room Procedure Note Interface, External [...] Report Verified Date/Time: 04/18/2018 12:31:58 Reading Location: [facility] Radiology Reading Room Performing Organization Address [facility] Phone Number [facility] Prothrombin Gene Mutation (04/18/2018 10:51 AM CDT) Prothrombin/Factor II Negative for the [id number] [facility] (Prothrombin/Factor II) [facility] mutation. Pathologist: Annmarie Thomas MD [facility] (electronic signature) [facility] Specimen Blood Narrative Performed At [facility] This test is a genotyping assay which evaluates the DNA sequence at position 73424 of the prothrombin (Factor II) gene. A [...] and its performance characteristics determined by the [facility] Pathology Department, Section of Molecular Pathology. It has not been cleared or approved by the U.S. Food and Drug Administration (FDA), since FDA approval is not required for clinical use of the test. Validation was done as required by the Clinical Laboratory Improvement Amendments of 1988. Performing Organization Address [facility] Phone Number [facility] [address] [place] [address] [phone] CENTER Vitamin B12 and Folate (04/18/2018 10:51 AM CDT) Vitamin B12 497 213 - 816 pg/mL [facility] Folate 6.5 (L) >=7.0 ng/mL [facility] Specimen Blood Performing Organization Address [facility] Phone Number [facility] [address] [place] [address] [place] Phosphatidylserine Abs (IgG, IgM) (04/18/2018 10:51 AM CDT) [facility].Serine Ab IgG <10 U/mL [facility] Comment: [...] more information on this test, go to: http://education.[employer]/faq/NVK642 Specimen Blood Narrative Performed At Performing Lab [facility] [place] [address] [place] [address] Rodney Bolivar MD, PhD, BRIANNA Performing Organization Address [facility] Phone Number [facility] [place] [address] [facility]OR[facility] [address] [facility] Iron, TIBC, % sat. 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 The "thermolabile" variant C677T [NM 181019.3: c.665C>T (p.A222V)] and F8427F [c. 1286A>C (p.E429A)] occur frequently in the [...] uncertain and is not recommended by [employer] ([employer]) or the [employer] (ACOG) in [...] and prothrombin gene mutations. The C677T and L1619F variants are detected by amplification of the [...] Health care providers, please contact your local [facility] genetic counselor or call [employer] ([phone]) for assistance with interpretation of these results. This test was developed and its analytical performance characteristics have been determined by [employer]. It has not been cleared or approved by FDA. This assay has been validated pursuant to the CLIA regulations and is used for clinical purposes. Specimen Blood Narrative Performed At Performing Lab [facility] [place] [address] [place] [address] Rodney Bolivar MD, PhD, BRIANNA Performing Organization Address [facility] [place] [address] INCORPORATED [address] [facility] Protein S antigen, total (04/18/2018 10:51 AM CDT) Protein S, Total Antigen 90 70 - 140 % normal [facility] Specimen Blood Narrative Performed At Performing Lab [facility] [place] [address] [place] [address] Rodney Bolivar MD, PhD, BRIANNA Performing Organization Address [facility] [place] [address] INCORPORATED [address] [address] [facility] Protein C antigen, total (04/18/2018 10:51 AM CDT) Protein C Antigen 100 70 - 140 % normal [facility] Comment: INCORPORATED Decreased levels of Protein C antigen may be found in congenital deficiency, treatment with oral anticoagulants, liver disease, D.I.C. and post surgery. Specimen Blood Narrative Performed At Performing Lab [facility] [address] [place] [address] Rodney Bolivar MD, PhD, BRIANNA Performing Organization Address City/[facility] Cent[facility] Phone Number [facility], [place] [address] INCORPORATED [address] [facility] Cardiolipin Antibodies, IgG and IgM (04/18/2018 10:51 AM CDT) Anticardiolipin IgG <1.6 <20.0 GPL [facility] Anticardiolipin IgM 0.5 <20.0 MPL [facility] Specimen Blood Narrative Performed At Anticardiolipin IgG Result Interpretation: [facility] <20.0 GPL Normal >/=20.0 GPL Positive Anticardiolipin IgM Result Interpretation: <20.0 MPL Normal >/=20.0 MPL Positive Performing Organization Address City/[facility]/Zipcode Phone Number [facility] [address] [place] [address] CENTER Factor 5 Leiden PCR (thrombotic risk) (04/18/2018 10:51 AM CDT) Factor V Leiden Negative for the R506Q (Factor [facility] V Leiden) mutation [facility] Pathologist: Annmarie Thomas MD [facility] (electronic signature) [facility] Specimen Blood Narrative Performed At This test is a genotyping assay which [facility] evaluates the DNA sequence corresponding to Codon [...] and its performance characteristics determined by the [facility] Pathology Department, Section of Molecular Pathology. It has not been cleared or approved by the U.S. Food and Drug Administration (FDA), since FDA approval is not required for clinical use of the test. Validation was done as required by the Clinical Laboratory Improvement Amendments of 1988. Performing Organization Address City/State/Zipcode Phone Number [address] [phone] CENTER Antithrombin III (04/18/2018 10:51 AM CDT) Antithrombin III 81.0 80.0 - 120.0 % [facility] Specimen Blood Performing Organization Address City/[facility]/Zipcode Phone Number [address] [address] CENTER Reticulocyte count (04/18/2018 10:51 AM CDT) % Retic 1.5 0.4 - 2.9 % [facility] Specimen Blood Performing Organization Address [facility] Cent[facility]ode Phone Number [facility] [address] [place] [address] [phone] Type and screen (04/18/2018 10:51 AM CDT) Ab Scrn POSITIVE [facility] ABO Grouping AB [facility] Rh Factor POS [facility] Specimen Blood Performing Organization Address [facility] Phone Number [address] [phone] [facility] Protein electrophoresis, serum (04/18/2018 10:51 AM CDT) Albumin Fraction 3.5 3.5 - 5.5 g/dL [facility] Alpha 1 Fraction 0.2 0.2 - 0.4 g/dL [facility] Alpha 2 Fraction 0.6 0.5 - 0.9 g/dL [facility] Beta Fraction 1.1 0.6 - 1.1 g/dL [facility] Gamma Globulin Fraction 0.8 0.7 - 1.7 g/dL [facility] Interpretation All fractions present [facility] in expected [facility] distribution. No monoclonal bands detected. Pathologist: Annmarie Thomas MD [facility] (electronic signature) [facility] Protein, Total 6.3 6.0 - 8.3 gm/dL [facility] Specimen Blood Performing Organization Address City/[facility]/Zipcode Phone Number [address] [address] CENTER Lactate dehydrogenase (LDH) (04/18/2018 10:51 AM CDT) LDH 174 107 - 206 U/L [facility] Specimen Blood Performing Organization Address [facility] Phone Number [facility] [address] [place] [address] [phone] Homocysteine (04/18/2018 10:51 AM CDT) Homocysteine 6.1 5.1 - 15.4 umol/L [facility] Specimen Blood Performing Organization Address [facility]/Zipcode Phone Number [address] [address] [phone] CENTER Ferritin (04/18/2018 10:51 AM CDT) Ferritin 8 (L) 22 - 322 ng/mL [facility] Specimen Blood Performing Organization Address [facility] Phone Number [facility] [address] [place] [address] [phone] TSH/Free T4 If Indicated (04/17/2018 9:06 PM CDT) TSH 0.71 0.35 - 5.50 uIU/mL [facility] Specimen Blood Performing Organization Address [facility]/Zipcode Phone Number [facility] [address] [place] [address] after 11/13/2017 Insurance Payer Benefit Plan / Subscriber ID Type Phone Address Group BLUE CROSS/BLUE BCBS ADV HMO xxxxxxxxxxxx [phone] [address] [place] [address] (Work) [phone] Advance Directives For more information, please contact:[address] [phone] Code Status Date Activated Date Inactivated Comments [...]
--- OUTSIDE RECORDS SUMMARY | 2018-11-14 09:44 | XMS REPORT | Continuity of Care Document ---
[...] RADICULOPATHY 014 Neuro Low back Active Problem 09/08/2017 Data pain<sup>1</sup> 014 [facility] [place] Center Lumbar Active Problem 09/08/2017 Data radiculopathy<sup>2 014 migrated [place],M </sup> from [employer] [facility] on 06/04/15. Center Spinal stenosis of Active Problem 09/08/2017 Data lumbar 014 migrated [place],M region<sup>3</sup> [facility]. Center Low back Active Problem 10/14/2017 Data MH pain<sup>1</sup> 014 [facility] [place]. Lumbar Active Problem 10/14/2017 Data MH radiculopathy<sup>2 014 migrated [place],M </sup> from [facility] on 06/04/15. Spinal stenosis of Active Problem 10/14/2017 Data lumbar 014 migrated [place],M region<sup>3</sup> from [facility] on 06/04/15. Chest pain Active Problem 09/08/2017 MH 010 [facility] Chest pain Active Problem 10/14/2017 MH 010 [facility], [facility] [place] Pain / sensation Active Problem 09/08/2017 MH finding(<span 010 [place],M ID="[id number]">[facility] ble</span>) [facility] Pain / sensation Active Problem 10/14/2017 MH finding(<span 010 [place],M ID="[id number]">[facility] ble</span>) Anxiety Active Problem 09/08/2017 MH 010 [facility] Hypertension Active Problem 09/08/2017 MH 010 [facility] Sinus tachycardia Active Problem 09/08/2017 MH 010 [facility] Anxiety Active Problem 10/14/2017 MH 010 [facility] Hypertension Active Problem 10/14/2017 MH 010 [facility] Sinus tachycardia Active Problem 10/14/2017 MH 010 [facility] Back pain Active Problem 09/08/2017 [facility] Depression Resolved Problem 09/08/2017 [facility] Depression (<span Active Problem 09/08/2017 MH ID="[id number]">Co [facility], nfirmed</span>[facility] 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 [facility] Hyperlipidemia Active Problem 09/08/2017 [facility] Pain Active Problem 09/08/2017 [facility] Pericarditis Resolved Problem 09/08/2017 [facility] Pulmonary embolism Resolved Problem 09/08/2017 [facility] SVT - Resolved Problem 09/08/2017 Supraventricular [facility], tachycardia [facility] Back pain Active Problem 10/14/2017 [facility] Depression Resolved Problem 10/14/2017 [facility] Depression (<span Active Problem 10/14/2017 MH ID="[id number]">Co [place],M nfirmed</span>) [facility] 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 [place],M [facility] [place] Hyperlipidemia Active Problem 10/14/2017 [place],M [facility] [place] Pain Active Problem 10/14/2017 [place],M [facility] [place] Pericarditis Resolved Problem 10/14/2017 [place],M [facility] [place] Pulmonary embolism Resolved Problem 10/14/2017 [place],M [facility] [place] SVT - Resolved Problem 10/14/2017 Supraventricular [place],M tachycardia [facility] [place] CHEST PAIN, Active [facility] [place] Medications Medication Details Route Status Patient Ordering Order Source Instructions Provider Date Docusate 100 mg, 1 Inactive cap, Route: 018 [place] PO, Drug form: CAP, BID, Dosing Weight 81.818, kg, Start date: 10/11/17 17:00:00 GRAIN SCOOPER, Duration: 30 day, Stop date: 11/10/17 9:00:00 CSTNotes: (Same as: Colace) (Do Not Crush) Ondansetron 4 mg, 2 mL, Inactive Route: IVP, 018 [place] Drug form: INJ, Q6H, Dosing Weight 81.818, kg, PRN Nausea & Vomiting, Start date: 10/11/17 15:19:00 GRAIN SCOOPER, Duration: 30 day, Stop date: 11/10/17 15:18:00 [...] 10 tab, 0 MG Oral Tablet Refill(s) [[place] 10/325] heparin 500 mL, Inactive [facility] additive 25,000 Rate: 26.06 017 Medical unit [18 ml/hr, Center unit/kg/hr] + Infuse over: Premix Diluent 19.2 hr, Dextrose 5% 500 Route: IVPB, mL Dosing Weight 72.39 kg, Total Volume: 500 mL, Start date: 11/20/16 5:23:00 GRAIN SCOOPER, Duration: 30 day, Stop date: 12/20/16 5:22:00 CDT Heparin 40 Pharmacy To Inactive [facility] unit/kg Bolus Manage, [facility] (Heparin Dosing Route: IVP, Center Weight) PRN, Drug form: INJ, PRN, Heparin Protocol, Start date: 11/20/16 5:23:00 GRAIN SCOOPER Stop date: 12/20/16 6:22:00 CDT, 30 day Heparin 80 Pharmacy To Inactive [facility] unit/kg [facility] Man[facility], [facility] (Heparin Dosing Route: IVP, Center Weight) PRN, Drug form: INJ, PRN, Heparin Protocol, Start date: 11/20/16 5:23:00 GRAIN SCOOPER Stop date: 12/20/16 6:22:00 CDT, 30 day Dilaudid 1 mg, 0.5 Inactive [facility] mL, Route: 017 Medical IVP, Drug Center form: INJ, ONCE, Dosing Weight 81.818, kg, Priority: STAT, Start date: 11/20/16 5:05:00 GRAIN SCOOPER, Stop date: 11/20/16 5:05:00 CSTNotes: Same as: [...] Assertion Sleep Propensity Active walking to adverse [place] reactions to drug morphine Assertion Rash Drug Active allergy [place] Toradol Assertion rash Drug Active allergy [place] Immunizations Immunization Date Given Site Status Last Comments Source Updated influenza virus 05/12/2014 completed Man Admin Note: vaccine, received at [facility] inactivated<sup>1 [facility] </sup> [facility] influenza virus 05/12/2014 completed Man Admin Note: vaccine, received at [facility] inactivated<sup>1 [facility] </sup> tuberculin 02/21/2010 Left Arm [facility] purified protein [facility], derivative [facility] tuberculin 02/21/2010 Left Arm completed Belinda purified protein [facility], derivative [place] Results Order Name Results Value Reference Date Interpretation Comments Source Range CARDIAC Troponin-T null 0.000 - 11/20 [facility] ENZYMES 0.100 /[address] [place] [address] CARDIAC Total CK 81 unit/L 12 - 191 11/20 [facility] ENZYMES [address] CARDIAC Troponin-I null 0.00 - 11/20 [facility] ENZYMES 0.40 /2016 [facility] CARDIAC CK MB Index 0.7 0.0 - 2.5 11/20 [facility] ENZYMES /2017 [facility] CARDIAC CK MB 0.6 ng/mL 0.5 - 3.6 11/20 [facility] ENZYMES /2017 [facility] CHEM PANEL Magnesium 1.8 mg/dL 1.8 - 2.4 11/20 [facility] Lvl /2017 [facility] CHEM PANEL Phosphorus 2.5 mg/dL 2.5 - 4.5 11/[address] ELECTROLYT AGAP 10.3 meq/L 10.0 - 11/20 [facility] ES 20.0 [facility] ELECTROLYT B/C Ratio 13 6 - 25 11/20 [facility] /2017 [facility] ELECTROLYT A/G Ratio 1.2 0.7 - 1.6 11/20 [facility] /2017 [facility] ELECTROLYT Globulin 3.3 g/dL 2.7 - 4.2 11/20 [facility] /2016 [facility] ELECTROLYT eGFR 105 11/20 Result Comment: The eGFR is calculated using the CKD-EPI formula. In most young, healthy individuals the eGFR will be >90 mL/ min/1.73m2. The eGFR declines with age. An eGFR of 60-89 may be normal in [facility] mL/min/1.7 /2016 some populations, particularly the elderly, for whom the CKD-EPI formula has not been extensively validated. Use of the eGFR is not recommended in the following populations: [address] Individuals with unstable creatinine concentrations, including [...] Lvl 8.4 mg/dL 8.5 - 10.5 11/20 [facility] ELECTROLYT Chloride Lvl 107 meq/L 95 - 109 11/[address] ELECTROLYT BUN 11 mg/dL 7 - 22 11/[address] ELECTROLYT Glucose Lvl 100 mg/dL 70 - 99 11/[address] ELECTROLYT Potassium 3.3 meq/L 3.5 - 5.1 11/20 [facility] ELECTROLYT Sodium Lvl 140 meq/L 135 - 145 11/20 [facility] [address] [place] [address] ELECTROLYT Creatinine 0.86 mg/dL 0.50 - 11/20 [facility] Lvl 1. [facility] ELECTROLYT CO2 26 meq/L 24 - 32 11/[address] ELECTROLYT AST 27 unit/L 0 - 37 11/20 [facility] [address] [place] [address] ELECTROLYT ALT 22 unit/L 0 - 65 11/20 [facility] [address] [place] [address] ELECTROLYT Albumin Lvl 4.0 g/dL 3.5 - 5.0 11/20 [facility] [address] [place] [address] ELECTROLYT Bili Total 0.5 mg/dL 0.2 - 1.3 11/[address] ELECTROLYT Total 7.3 g/dL 6.4 - 8.4 11/20 [facility] ELECTROLYT Alk Phos 78 unit/L 39 - 136 11/[address] HEMATOLOGY Anti-Xa 0.67 11/20 [facility] Unfractionat [iU]/mL /2016 [facility] ed Heparin Center HEMATOLOGY Monocytes # 0.6 K/CMM 0.0 - 0.8 11/20 MH [facility] HEMATOLOGY Lymphocytes 1.6 K/CMM 1.0 - 5.5 11/20 [place] # /2016 [facility] HEMATOLOGY Segs-Bands # 3.1 K/CMM 1.5 - 8.1 11/20 [facility] HEMATOLOGY Basophils 1.6 % 0.0 - 1.0 11/20 [facility] HEMATOLOGY Eosinophils 0.1 % 0.0 - 4.0 11/20 [facility] HEMATOLOGY Basophils # 0.1 K/CMM 0.0 - 0.2 11/20 [facility] HEMATOLOGY Microcyte 1+ None Seen 11[facility] (11/20/16 5:39 AM) HEMATOLOGY Lymphocytes 29.5 % 20.0 - 11/20 40.0 [facility] HEMATOLOGY Monocytes 10.6 % 2.0 - 12.0 11/20 [facility] HEMATOLOGY Segs 58.2 % 45.0 - 11/20 75.0 [facility] HEMATOLOGY INR 1.11 0.85 - 11/20 1.17 [facility] HEMATOLOGY PT 14.5 s 12.0 - 11/20 14.7 [facility] HEMATOLOGY PTT 32.9 s 22.9 - 11/20 35.8 [facility] HEMATOLOGY MCV 76.5 fL 80.0 - 11/20 94.0 [facility] HEMATOLOGY Hct 29.2 % 42.0 - 11/20 54.0 [facility] HEMATOLOGY MCH 24.1 pg 27.0 - 11/20 31.0 [facility] HEMATOLOGY Platelet 316 K/CMM 133 - 450 11/20 [facility] HEMATOLOGY MCHC 31.5 g/dL 32.0 - 02 [place] 36.0 2017 [facility] HEMATOLOGY RDW 20.7 % 11.5 - 02 14.5 [facility] HEMATOLOGY WBC 5.3 K/CMM 3.7 - 10.4 02 [facility] HEMATOLOGY Hgb 9.2 g/dL 14.0 - 11/20 18.0 2017 [facility] HEMATOLOGY RBC 3.82 M/CMM 4.70 - 11/20 [place] 6.10 [facility] HEMATOLOGY MPV 6.8 fL 7.4 - 10.4 11/[address] Chest Chest Clinical Indication: Chest pain; [...] used for the exam. FINAL REPORT Dose: BBV=533.4 mGy-cm FINDINGS: VASCULAR STRUCTURES: No pulmonary thromboemboli [...] Source Temperature Oral (F) 98.1 F 11/20/2016 [facility] Systolic (mm Hg) 142 11/20/2016 [facility] Diastolic (mm Hg) 99 11/20/2016 [facility] Respitory Rate 19 11/20/2016 [facility] Temperature Oral (F) 97.9 F 11/20/2016 [facility] Respitory Rate 18 11/20/2016 [facility] Systolic (mm Hg) 152 11/20/2016 [facility] Diastolic (mm Hg) 88 11/20/2016 [facility] Weight 81.818 11/20/2016 [facility] BMI Calculated 28.25 11/20/2016 [facility] Height 170.18 cm 11/20/2016 [facility] Respitory Rate 18 10/12/2016 [facility] Systolic (mm Hg) 132 10/12/2016 [facility] Diastolic (mm Hg) 67 10/12/2016 [facility] Systolic (mm Hg) 139 10/11/2016 [facility] Diastolic (mm Hg) 65 10/11/2016 [facility] Respitory Rate 18 10/11/2016 [facility] BMI Calculated 28.25 10/11/2016 [facility] Weight 81.818 10/11/2016 [facility] Height 170.18 cm 10/11/2016 [facility] Temperature Oral (F) 98.2 F 10/11/2016 [facility] Heart Rate 96 10/11/2016 [facility] Respitory Rate 18 10/11/2016 [facility] Systolic (mm Hg) 128 10/11/2016 [facility] Diastolic (mm Hg) 93 10/11/2016 [facility] Weight 176 07/18/2014 [facility] Height 67 07/18/2014 [facility] Neuro Temperature Oral (F) 100.3 F 07/18/2014 [facility] Heart Rate 108 07/18/2014 [facility] Systolic (mm Hg) 145 07/18/2014 [facility] Diastolic (mm Hg) 105 07/18/2014 [facility] Neuro Encounters Location Location Encounter Encounter Reason Attending ADM DC Status Source Details Type Number For Provider Date Date Visit [facility] Office [id number] Lenny 07/18 07/18 [facility] Neuroscienc Visit [id number] Avni DALEY /2013 Neuro e NE [facility] Lab Report [id number] Lenny 07/20 07/20 [place] [id number] Avni DALEY /2013 [facility] [place] [facility] Emergency [id number] Silas 10/11 10/12 Puneet Moore [facility] Inpatient [id number] March Karena 11/20 11/20 Francisco Teixeira [facility] Observation [id number] Quratdariel 02/18 02/18 Puneet Ward /2016 [facility] Inpatient [id number] Valentin 09/06 09/06 MH Francisco Teixeira 0 [facility] Inpatient [id number] González 10/11 10/11 KEREN Teixe[place] 1 [facility] Procedures Procedure Code Date Perfomer Comments Source Cholecystectomy [id number] [facility] Laminectomy and [id number] [facility] discectomy Procedure on back [id number] [facility] Cholecystectomy [id number] [facility] Laminectomy and [id number] [facility] discectomy [facility] Procedure on back [id number] [facility] Cholecystectomy [id number] [facility] Laminectomy and [id number] [facility] discectomy Procedure on back [id number] [facility]
--- OUTSIDE RECORDS SUMMARY | 2018-11-14 09:44 | XMS REPORT | Continuity of Care Document ---
[...] Lab Report Lenny Holly MD [facility] Jul 20, 2014 Allergies, Adverse Reactions, Alerts [...]
--- OUTSIDE RECORDS SUMMARY | 2018-11-14 09:44 | XMS REPORT | Continuity of Care Document ---
[...] Location Date Lab Report Lenny Holly MD [facility] Jul 20, 2014 Allergies, Adverse Reactions, Alerts [...]
--- OUTSIDE RECORDS SUMMARY | 2018-11-14 09:48 | XMS REPORT ---
:1970 [facility] [address] [place] [address] Care Team Providers Name Role Phone SARA, DR PEDRAZA Unavailable Unavailable EDNA HAMILTON Unavailable Unavailable PILO, DR ACKERMAN Unavailable Unavailable PATRICIA SMITH Unavailable Unavailable SUDEEP, DR ROJAS Unavailable Unavailable RUPINDER, DR HOFFMAN Unavailable Unavailable NIRANJAN NICHOLSON Unavailable Unavailable JAQUI, WILL Unavailable Unavailable BEACH, ILIANA Unavailable Unavailable SOTO, BHAGLIA PURUSHOTTAM Unavailable Unavailable KALPANA, ITALIA Unavailable Unavailable MAURA, MUSTAQ KASAM Unavailable Unavailable BA, DR GOODRICH Unavailable Unavailable DO JULIET DORMAN Unavailable Unavailable [...] tartrate - 00:00:0 0 ketorolac DA Active DE 2018-08 00:00:0 0 zolpidem DA Active MO 2017-11 tartrate - 00:00:0 0 ketorolac DA Active DE 2017-11 00:00:0 0 Medications This patient has no known medications. Encounters Start End Encounter Admission Attending Care Care Encounter Date/Time Date/Time Type Type Clinicians Facility Department ID 2018-10-24 2018-10-24 Outpatient Oscar RUIZ [facility] TELE [id number] 07:51:00 10:45:00 KEILA 2018-09-14 2018-09-15 Outpatient Maki DAIGLE, [facility] TELE [id number] 12:31:00 11:36:00 TYRON 2018-07-31 2018-07-31 Emergency E OEI, [facility] ECC [id number] 00:38:00 05:56:00 BOB 2018-07-15 2018-07-16 Outpatient E RUPINDER, [facility] TELE [id number] 10:19:00 12:35:00 DALTON 2017-12-16 2017-12-16 Emergency E BA, JOLEEN [facility] GPECC [id number] 13:45:00 17:07:00 Results Test Description Test Time Test Comments Text Results Atomic Results Result Comments CBC W/AUTO DIFF 2018-11-02 10:22:00 Test Item Value Reference Range Comments WHITE BLOOD CELL (test code=WBC) 8.83 x10 3/uL 4.5-11.0 RED BLOOD CELL (test code=RBC) 4.06 x10 6/uL 4.00-5.60 HEMOGLOBIN (test code=HGB) 10.3 g/dL 12.5-16.9 HEMATOCRIT (test code=HCT) 35.5 % 37.5-50.7 MEAN CELL VOLUME (test code=MCV) 87.4 fL 81.0-99.0 MEAN CELL HGB (test code=MCH) 25.4 pg 27.0-33.0 MEAN CELL HGB CONCETRATION (test code=MCHC) 29.0 g/dL 33.0-37.0 RED CELL DISTRIBUTION WIDTH CV (test code=RDW) 25.1 % 11.5-14.5 RED CELL DISTRIBUTION WIDTH SD (test code=RDW-SD) 78.3 fL 37.0-54.0 PLATELET COUNT (test code=PLT) 337 x10 3/uL 150-400 MEAN PLATELET VOLUME (test code=MPV) 9.4 fL 7.0-9.0 NEUTROPHIL % (test code=NT%) 52.9 % 56.0-77.0 IMMATURE GRANULOCYTE % (test code=IG%) 0.2 % 0.0-2.0 LYMPHOCYTE % (test code=LY%) 32.6 % 14.0-32.0 MONOCYTE % (test code=MO%) 11.6 % 4.8-9.0 EOSINOPHIL % (test code=EO%) 2.4 % 0.3-3.7 BASOPHIL % (test code=BA%) 0.3 % 0.0-2.0 NUCLEATED RBC % (test code=NRBC%) 0.0 % 0-0 NEUTROPHIL # (test code=NT#) 4.67 x10 3/uL 2.0-7.6 IMMATURE GRANULOCYTE # (test code=IG#) 0.02 x10 3/uL 0.00-0.03 LYMPHOCYTE # (test code=LY#) 2.88 x10 3/uL 1.0-3.8 MONOCYTE # (test code=MO#) 1.02 x10 3/uL 0.1-0.8 EOSINOPHIL # (test code=EO#) 0.21 x10 3/uL 0.0-0.2 BASOPHIL # (test code=BA#) 0.03 x10 3/uL 0.0-0.2 NUCLEATED RBC # (test code=NRBC#) 0.00 x10 3/uL 0.0-0.1 MANUAL DIFF REQUIRED (test code=MDIFF) NO RBC [id number] 10:22:00 Test Item Value Reference Range Comments POIKILOCYTOSIS (test code=POIK) 1+ ANISOCYTOSIS (test code=ANISO) 3+ OVALOCYTES (test code=OVAL) 1+ SCHISTOCYTES (test code=KAVITA) 1+ CBC W/AUTO [id number] 08:04:00 Test Item Value Reference Range Comments WHITE BLOOD CELL (test code=WBC) 8.83 x10 3/uL 4.5-11.0 RED BLOOD CELL (test code=RBC) 4.06 x10 6/uL 4.00-5.60 HEMOGLOBIN (test code=HGB) 10.3 g/dL 12.5-16.9 HEMATOCRIT (test code=HCT) 35.5 % 37.5-50.7 MEAN CELL VOLUME (test code=MCV) 87.4 fL 81.0-99.0 MEAN CELL HGB (test code=MCH) 25.4 pg 27.0-33.0 MEAN CELL HGB CONCETRATION (test code=MCHC) 29.0 g/dL 33.0-37.0 RED CELL DISTRIBUTION WIDTH CV (test code=RDW) 25.1 % 11.5-14.5 RED CELL DISTRIBUTION WIDTH SD (test 78.3 fL 37.0-54.0 code=RDW-SD) PLATELET COUNT (test code=PLT) 337 x10 3/uL 150-400 MEAN PLATELET VOLUME (test code=MPV) 9.4 fL 7.0-9.0 NEUTROPHIL % (test code=NT%) 52.9 % 56.0-77.0 IMMATURE GRANULOCYTE % (test code=IG%) 0.2 % 0.0-2.0 LYMPHOCYTE % (test code=LY%) 32.6 % 14.0-32.0 MONOCYTE % (test code=MO%) 11.6 % 4.8-9.0 EOSINOPHIL % (test code=EO%) 2.4 % 0.3-3.7 BASOPHIL % (test code=BA%) 0.3 % 0.0-2.0 NUCLEATED RBC % (test code=NRBC%) 0.0 % 0-0 NEUTROPHIL # (test code=NT#) 4.67 x10 3/uL 2.0-7.6 IMMATURE GRANULOCYTE # (test code=IG#) 0.02 x10 3/uL 0.00-0.03 LYMPHOCYTE # (test code=LY#) 2.88 x10 3/uL 1.0-3.8 MONOCYTE # (test code=MO#) 1.02 x10 3/uL 0.1-0.8 EOSINOPHIL # (test code=EO#) 0.21 x10 3/uL 0.0-0.2 BASOPHIL # (test code=BA#) 0.03 x10 3/uL 0.0-0.2 NUCLEATED RBC # (test code=NRBC#) 0.00 x10 3/uL 0.0-0.1 MANUAL DIFF REQUIRED (test code=MDIFF) NO RBC [id number] 08:04:00 Test Item Value Reference Range Comments ANISOCYTOSIS (test code=ANISO) CBC W/AUTO [id number] 08:04:00 Test Item Value Reference Range Comments WHITE BLOOD CELL (test code=WBC) 8.83 x10 3/uL 4.5-11.0 RED BLOOD CELL (test code=RBC) 4.06 x10 6/uL 4.00-5.60 HEMOGLOBIN (test code=HGB) 10.3 g/dL 12.5-16.9 HEMATOCRIT (test code=HCT) 35.5 % 37.5-50.7 MEAN CELL VOLUME (test code=MCV) 87.4 fL 81.0-99.0 MEAN CELL HGB (test code=MCH) 25.4 pg 27.0-33.0 MEAN CELL HGB CONCETRATION (test code=MCHC) 29.0 g/dL 33.0-37.0 RED CELL DISTRIBUTION WIDTH CV (test code=RDW) 25.1 % 11.5-14.5 RED CELL DISTRIBUTION WIDTH SD (test 78.3 fL 37.0-54.0 code=RDW-SD) PLATELET COUNT (test code=PLT) 337 x10 3/uL 150-400 MEAN PLATELET VOLUME (test code=MPV) 9.4 fL 7.0-9.0 NEUTROPHIL % (test code=NT%) 52.9 % 56.0-77.0 IMMATURE GRANULOCYTE % (test code=IG%) 0.2 % 0.0-2.0 LYMPHOCYTE % (test code=LY%) 32.6 % 14.0-32.0 MONOCYTE % (test code=MO%) 11.6 % 4.8-9.0 EOSINOPHIL % (test code=EO%) 2.4 % 0.3-3.7 BASOPHIL % (test code=BA%) 0.3 % 0.0-2.0 NUCLEATED RBC % (test code=NRBC%) 0.0 % 0-0 NEUTROPHIL # (test code=NT#) 4.67 x10 3/uL 2.0-7.6 IMMATURE GRANULOCYTE # (test code=IG#) 0.02 x10 3/uL 0.00-0.03 LYMPHOCYTE # (test code=LY#) 2.88 x10 3/uL 1.0-3.8 MONOCYTE # (test code=MO#) 1.02 x10 3/uL 0.1-0.8 EOSINOPHIL # (test code=EO#) 0.21 x10 3/uL 0.0-0.2 BASOPHIL # (test code=BA#) 0.03 x10 3/uL 0.0-0.2 NUCLEATED RBC # (test code=NRBC#) 0.00 x10 3/uL 0.0-0.1 MANUAL DIFF REQUIRED (test code=MDIFF) NO RBC [id number] 08:04:00 Test Item Value Reference Range Comments ANISOCYTOSIS (test code=ANISO) BASIC METABOLIC [id number] 07:53:00 Test Item Value Reference Range Comments SODIUM (test code=NA) 141 mEq/L 134-147 POTASSIUM (test code=K) 3.8 mEq/L 3.4-5.0 CHLORIDE (test code=CL) 107 mEq/L 100-108 CARBON DIOXIDE (test code=CO2) 27 mEq/L 21-33 ANION GAP (test code=GAP) 11 0-20 GLUCOSE (test code=GLU) 107 mg/dL 70-110 BLOOD UREA NITROGEN (test 23 mg/dL 7-18 code=BUN) GLOMERULAR FILTRATION RATE 90.4 95-105 Units of measure=ml/min/1.73 (test code=GFR) m2 CREATININE (test code=CREAT) 0.9 mg/dL 0.6-1.3 CALCIUM (test code=CA) 8.1 mg/dL 8.0-10.5 [id number] 19:54:00 Test Item Value Reference Range Comments TROPONIN-I (test < 0.015 ng/mL 0.000-0.045 Negative: <=0.045 code=TROPI) Positive: >=0.046 Correlation with serial results, other cardiac markers andclinical findings is necessary to determine the clinicalsignificance of this result. Results using different methodologies should not be comparedto one another as quantitative results may vary by method. BASIC METABOLIC [id number] 17:16:00 Test Item Value Reference Range Comments SODIUM (test code=NA) 141 mEq/L 134-147 POTASSIUM (test code=K) 3.8 mEq/L 3.4-5.0 CHLORIDE (test code=CL) 105 mEq/L 100-108 CARBON DIOXIDE (test code=CO2) 29 mEq/L 21-33 ANION GAP (test code=GAP) 11 0-20 GLUCOSE (test code=GLU) 127 mg/dL 70-110 BLOOD UREA NITROGEN (test 14 mg/dL 7-18 code=BUN) GLOMERULAR FILTRATION RATE 80.1 95-105 Units of measure=ml/min/1.73 (test code=GFR) m2 CREATININE (test code=CREAT) 1.0 mg/dL 0.6-1.3 CALCIUM (test code=CA) 8.6 mg/dL 8.0-10.5 [id number] 17:16:00 Test Item Value Reference Range Comments TROPONIN-I (test < 0.015 ng/mL 0.000-0.045 Negative: <=0.045 code=TROPI) Positive: >=0.046 Correlation with serial results, other cardiac markers andclinical findings is necessary to determine the clinicalsignificance of this result. Results using different methodologies should not be comparedto one another as quantitative results may vary by method. CT PE PROTOCOL *OW*2018-10-24 07:44:23CT chest with contrast (PE protocol) HISTORY: Chest painCOMMENT: Multidetector slices through the chest were obtained during contrastadministration for evaluation of the pulmonary arteries for pulmonaryembolus.Coronal and axial reconstructions were performed and evaluated.Dose lowering technique with automatic exposure control utilized. DLP : 807mGy-cmThere is good opacification of the pulmonary arteries with no evidence offilling defect to suggest pulmonary embolus. The aorta is calcific but normal in diameter with no aneurysm or dissection.The lungs are clear. Tracheobronchial tree is patent without bronchiectasis orendobronchial lesions. No consolidations or effusions detected. The heart and pulmonary vasculature is normal.7 mm left upper pole renal calculus. Surgical clips gallbladder fossa.Osseous structures are within normal limits.IMPRESSION: 1. No evidence of acute pulmonary embolus.2. No acute intrathoracic findings.3. 7 mm left upper pole calculus.BRAIN NATRIURETIC PROTEIN OW2018-10-24 06:56:00 Test Item Value Reference Range Comments BNP (test code=OBNP) <15 pg/mL 0-50 TROPONIN I i-STAT OW2018-10-24 06:45:00 Test Item Value Reference Range Comments TROPONIN I (test code=A84) 0.000 ng/mL 0.000-0.045 CHEM8+ i-STAT OW2018-10-24 06:28:00 Test Item Value Reference Range Comments SODIUM (test code=BHARGAV) 140 mmol/L 138-146 POTASSIUM (test code=KI) 3.4 mmol/L 3.5-4.9 CHLORIDE (test code=CLI) 106 mmol/L 98-109 CA IONIZED (test code=ICAI) 1.19 mmol/L 1.12-1.32 GLUCOSE (test code=GLUI) 224 mg/dL 75-100 TCO2 (test code=TCO2) 20 mmol/L 24-29 BUN (test code=BUN1) 14 mg/dL 8-26 CREATININE (test code=CREAI) 0.8 mg/dL 0.6-1.3 ANION GAP (test code=GANG) 18.0 mmol/L HGB (test code=MHB) 12.6 g/dL 12.0-17.0 HCT (test code=MHCT) 37.0 % 38.0-51.0 CBC (INCLUDES AUTOMATED DIFFERENTIAL) *2018-10-24 06:24:00 Test Item Value Reference Range Comments WBC (test code=WBC) 8.3 10\\S\\3/uL 4.5-11.0 RBC (test code=RBC) 4.61 10\\S\\6/uL 4.20-5.60 HGB (test code=HBG) 11.5 g/dL 14.0-18.0 HCT (test code=HCT) 36.1 % 35.0-46.0 MCV (test code=MCV) 78.2 fL 80.0-94.0 MCH (test code=MCH) 24.9 pg 27.0-31.0 MCHC (test code=MCHC) 31.9 g/dL 32.0-36.0 RDW (test code=RDW) 21.7 % 11.5-14.5 PLT (test code=PLT) 382 10\\S\\3/uL 130-400 MPV (test code=OMPV) 7.2 fL 6.2-10.2 NEUTROP # (test code=NE#) 4.7 10\\S\\3/uL 2.0-8.0 LYMPH # (test code=LY#) 2.8 10\\S\\3/uL 1.2-4.0 MID # (test code=GMID#) 0.8 10\\S\\3/uL 0.0-1.1 GRA % (test code=GRA%) 57.0 % 35.0-73.0 LYMPH % (test code=GLY%) 33.6 % 20.0-55.0 MID % (test code=GMID%) 9.4 % 0.0-10.0 PROTHROMBIN TIME i-STAT OW2018-10-24 06:24:00 Test Item Value Reference Range Comments PT (test code=PT1) 13.0 s 10.0-13.0 INR (test code=INR) 1.1 INRH (test code=INRH) SUGGESTED THERAPEUTIC RANGE FOR INR: 2.5 - 3.5 For Patients with Prosthetic Valves or Patients with recurrent Thromboembolic Events 2.0 - 3.0 For Most Other Applications LIPID [id number] 06:49:00 Test Item Value Reference Range Comments TRIGLYCERIDES (BEAKER) (test cxbm=747) 93 mg/dL CHOLESTEROL (BEAKER) (test bghl=028) 235 mg/dL HDL CHOLESTEROL (BEAKER) (test rntt=794) 44 mg/dL LDL CHOLESTEROL CALCULATED (BEAKER) (test 172 mg/dL znjj=864) Triglyceride Reference Range: Low Risk <150 Borderline 150- 199 High Risk 200-499 Very High Risk >=500Cholesterol Reference Range: Low Risk <200 Borderline 200-239 High Risk > 240HDL Cholesterol Reference Range: Low Risk >=60 High Risk <40LDL Cholesterol Reference Range: Optimal <100 Near Optimal 100-129 Borderline 130-159 High 160-189 Very High >=190BASIC METABOLIC [id number] 06:48:00 Test Item Value Reference Range Comments SODIUM (BEAKER) (test 139 meq/L 135-148 ueth=500) POTASSIUM (BEAKER) (test 3.9 meq/L 3.6-5.5 uufv=916) CHLORIDE (BEAKER) (test 107 meq/L 98-106 ovud=861) CO2 (BEAKER) (test 21 meq/L 20-29 mnlu=950) BLOOD UREA NITROGEN 17 mg/dL 10-26 (BEAKER) (test jdav=107) CREATININE (BEAKER) (test 0.89 mg/dL 0.50-1.20 vgzp=679) GLUCOSE RANDOM (BEAKER) 89 mg/dL 70-110 (test zeyp=015) CALCIUM (BEAKER) (test 9.3 mg/dL 8.5-10.5 anra=583) EGFR (BEAKER) (test 92 mL/min/1.73 sq m ESTIMATED GFR IS NOT bngq=9501) ACCURATE CREATININE CLEARANCE IN PREDICTING GLOMERULAR FILTRATION RATE. ESTIMATED GFR IS NOT APPLICABLE FOR DIALYSIS PATIENTS. [id number] 06:47:00 Test Item Value Reference Range Comments PHOSPHORUS (BEAKER) (test nwpp=177) 3.1 mg/dL 2.5-4.5 TROPONIN [id number] 06:42:00 Test Item Value Reference Range Comments TROPONIN I (BEAKER) (test cscs=262) < ng/mL 0.00-0.15 Troponin I (TnI) levels [...] failure, acidosis, acute neurological disease, and persistent tachyarrhythmia.[id number] 06:42:00 Test Item Value Reference Range Comments MAGNESIUM (BEAKER) (test adub=587) 2.3 mg/dL 1.5-3.0 CBC W/PLT COUNT & AUTO [id number] 06:32:00 Test Item Value Reference Range Comments WHITE BLOOD CELL COUNT (BEAKER) (test tybg=184) 5.8 K/ L 4.0-10.0 RED BLOOD CELL COUNT (BEAKER) (test ncvr=998) 4.06 M/ L 4.20-5.80 HEMOGLOBIN (BEAKER) (test ghdb=308) 8.8 GM/DL 13.0-16.8 HEMATOCRIT (BEAKER) (test jmxh=417) 32.4 % 36.0-50.0 MEAN CORPUSCULAR VOLUME (BEAKER) (test cxhx=306) 79.8 fL 82.0-99.0 MEAN CORPUSCULAR HEMOGLOBIN (BEAKER) (test 21.7 pg 27.0-33.0 gaoi=613) MEAN CORPUSCULAR HEMOGLOBIN CONC (BEAKER) (test 27.2 GM/DL 32.0-36.0 gwoe=079) RED CELL DISTRIBUTION WIDTH (BEAKER) (test 18.9 % 12.0-15.0 puzm=199) PLATELET COUNT (BEAKER) (test ddsp=386) 340 K/CU MM 150-430 MEAN PLATELET VOLUME (BEAKER) (test jijl=820) 9.3 fL 6.0-11.5 NUCLEATED RED BLOOD CELLS (BEAKER) (test 0 /100 WBC 0-0 pact=488) NEUTROPHILS RELATIVE PERCENT (BEAKER) (test 36 % jror=075) LYMPHOCYTES RELATIVE PERCENT (BEAKER) (test 47 % tcml=876) MONOCYTES RELATIVE PERCENT (BEAKER) (test 13 % cnhj=239) EOSINOPHILS RELATIVE PERCENT (BEAKER) (test 3 % rgzl=172) BASOPHILS RELATIVE PERCENT (BEAKER) (test 1 % bukp=471) NEUTROPHILS ABSOLUTE COUNT (BEAKER) (test 2.09 K/ L 1.80-8.00 edpq=263) LYMPHOCYTES ABSOLUTE COUNT (BEAKER) (test 2.72 K/ L 1.48-4.50 ecxa=251) MONOCYTES ABSOLUTE COUNT (BEAKER) (test 0.75 K/ L 0.00-1.30 rmxp=329) EOSINOPHILS ABSOLUTE COUNT (BEAKER) (test 0.16 K/ L 0.00-0.50 ycyh=434) BASOPHILS ABSOLUTE COUNT (BEAKER) (test 0.03 K/ L 0.00-0.20 wpqf=585) IMMATURE GRANULOCYTES-RELATIVE PERCENT (BEAKER) 0 % 0-0 (test avhs=7059) PT/[id number] 06:31:00 Test Item Value Reference Range Comments PROTIME (BEAKER) (test qmkx=152) 10.3 sec 9.3-12.0 INR (BEAKER) (test lmzv=412) 0.9 <=5.9 PARTIAL THROMBOPLASTIN TIME (BEAKER) (test 21.9 sec 23.0-35.0 wcgn=915) RECOMMENDED COUMADIN/WARFARIN INR THERAPY RANGESSTANDARD DOSE: 2.0 - 3.0 Includes: PROPHYLAXIS forvenous thrombosis, systemic embolization; TREATMENT for venous thrombosis and/or pulmonary embolus.HIGH RISK: Target INR is 2.5-3.5 for patients with mechanical heart valves.Final Information (Auto Output)Final Information (Auto Output)Final Information (Auto Output)CT PE [id number] 09:42:36CLINICAL HISTORY: Elevated the dimer.LOCATION: D4.FINDINGS: [...] and/or utilization of iterative reconstruction technique.BASIC METABOLIC [id number] 05:53:00 Test Item Value Reference Range [...] code=09D) 8.3 mg/dL 8.3-9.5 PRO TIME AND [id number] 05:51:00 Test Item Value Reference Range Comments [...] NO RBC MORPH (test code=RBCMOR) NORMAL CARDIAC [id number] 22:13:00 Test Item Value Reference Range Comments TROPONIN I (test code=A84) <0.015 ng/mL 0.000-0.045 CARDIAC [id number] 15:31:00 Test Item Value Reference Range Comments TROPONIN I (test code=A84) <0.015 ng/mL 0.000-0.045 CBC W/PLT COUNT & AUTO [id number] 09:31:00 Test Item Value Reference Range Comments WHITE BLOOD CELL COUNT (BEAKER) (test vrqv=652) 4.9 K/ L 4.0-10.0 RED BLOOD CELL COUNT (BEAKER) (test njkn=788) 3.69 M/ L 4.20-5.80 HEMOGLOBIN (BEAKER) (test huoj=691) 8.5 GM/DL 13.0-16.8 HEMATOCRIT (BEAKER) (test uehy=392) 28.7 % 36.0-50.0 MEAN CORPUSCULAR VOLUME (BEAKER) (test slgy=551) 77.8 fL 82.0-99.0 MEAN CORPUSCULAR HEMOGLOBIN (BEAKER) (test 23.0 pg 27.0-33.0 late=137) MEAN CORPUSCULAR HEMOGLOBIN CONC (BEAKER) (test 29.6 GM/DL 32.0-36.0 evvz=958) RED CELL DISTRIBUTION WIDTH (BEAKER) (test 18.6 % 12.0-15.0 sxlm=402) PLATELET COUNT (BEAKER) (test gizk=693) 305 K/CU MM 150-430 MEAN PLATELET VOLUME (BEAKER) (test iakr=587) 9.1 fL 6.0-11.5 NUCLEATED RED BLOOD CELLS (BEAKER) (test 0 /100 WBC 0-0 pmfl=346) (MANUAL DIFFERENTIAL)2018-09-03 09:31:00 Test Item Value Reference Range Comments NEUTROPHILS - REL (DIFF) (BEAKER) (test oika=7578) 39 % LYMPHOCYTES - REL (DIFF) (BEAKER) (test tjdi=1655) 44 % MONOCYTES - REL (DIFF) (BEAKER) (test frbg=6366) 13 % EOSINOPHILS - REL (DIFF) (BEAKER) (test dpas=3252) 4 % NEUTROPHILS - ABS (DIFF) (BEAKER) (test qduf=0734) 1.91 K/ L 1.80-8.00 LYMPHOCYTES - ABS (DIFF) (BEAKER) (test dxnk=7944) 2.16 K/ L 1.48-4.50 MONOCYTES - ABS (DIFF) (BEAKER) (test uwql=4447) 0.64 K/ L 0.00-1.30 EOSINOPHILS - ABS (DIFF) (BEAKER) (test lgvh=8214) 0.20 K/ L 0.00-0.50 TOTAL COUNTED (BEAKER) (test zwhs=9638) 100 WBC MORPHOLOGY (BEAKER) (test dboj=031) Normal RBC MORPHOLOGY (BEAKER) (test ugcv=466) Normal LARGE PLT(BEAKER) (test gqel=8937) Present BASIC METABOLIC [id number] 05:01:00 Test Item Value Reference Range Comments SODIUM (BEAKER) (test 138 meq/L 135-148 axxg=063) POTASSIUM (BEAKER) (test 3.5 meq/L 3.6-5.5 hlzd=493) CHLORIDE (BEAKER) (test 106 meq/L 98-106 sjpj=965) CO2 (BEAKER) (test 24 meq/L 20-29 gidf=034) BLOOD UREA NITROGEN 13 mg/dL 10-26 (BEAKER) (test egkb=471) CREATININE (BEAKER) (test 0.94 mg/dL 0.50-1.20 rzwz=531) GLUCOSE RANDOM (BEAKER) 121 mg/dL 70-110 (test auou=359) CALCIUM (BEAKER) (test 8.3 mg/dL 8.5-10.5 fnhs=300) EGFR (BEAKER) (test 86 mL/min/1.73 sq m ESTIMATED GFR IS NOT meqm=4866) ACCURATE CREATININE CLEARANCE IN PREDICTING GLOMERULAR FILTRATION RATE. ESTIMATED GFR IS NOT APPLICABLE FOR DIALYSIS PATIENTS. LIPID [id number] 05:01:00 Test Item Value Reference Range Comments TRIGLYCERIDES (BEAKER) (test tqsz=176) 122 mg/dL CHOLESTEROL (BEAKER) (test flae=484) 201 mg/dL HDL CHOLESTEROL (BEAKER) (test kxlm=635) 39 mg/dL LDL CHOLESTEROL CALCULATED (BEAKER) (test 138 mg/dL olau=089) Triglyceride Reference Range: Low Risk <150 Borderline 150- 199 High Risk 200-499 Very High Risk >=500Cholesterol Reference Range: Low Risk <200 Borderline 200-239 High Risk > 240HDL Cholesterol Reference Range: Low Risk >=60 High Risk <40LDL Cholesterol Reference Range: Optimal <100 Near Optimal 100-129 Borderline 130-159 High 160-189 Very High >=190TROPONIN [id number] 04:51:00 Test Item Value Reference Range Comments TROPONIN I (BEAKER) (test bdvt=374) < ng/mL 0.00-0.15 HEMOGLOBIN [id number] 04:43:00 Test Item Value Reference Range Comments HEMOGLOBIN A1C (BEAKER) (test mywu=742) 5.7 % 4.3-6.1 CBC W/PLT COUNT & AUTO [id number] 04:21:00 Test Item Value Reference Range Comments WHITE BLOOD CELL COUNT (BEAKER) (test zwgc=971) 6.8 K/ L 4.0-10.0 RED BLOOD CELL COUNT (BEAKER) (test kauz=045) 2.91 M/ L 4.20-5.80 HEMOGLOBIN (BEAKER) (test ekld=529) 6.7 GM/DL 13.0-16.8 HEMATOCRIT (BEAKER) (test gcqd=679) 22.8 % 36.0-50.0 MEAN CORPUSCULAR VOLUME (BEAKER) (test igoh=827) 78.4 fL 82.0-99.0 MEAN CORPUSCULAR HEMOGLOBIN (BEAKER) (test 23.0 pg 27.0-33.0 phix=239) MEAN CORPUSCULAR HEMOGLOBIN CONC (BEAKER) (test 29.4 GM/DL 32.0-36.0 bihm=462) RED CELL DISTRIBUTION WIDTH (BEAKER) (test 18.4 % 12.0-15.0 vody=943) PLATELET COUNT (BEAKER) (test wbjz=972) 343 K/CU MM 150-430 MEAN PLATELET VOLUME (BEAKER) (test fyeq=155) 9.7 fL 6.0-11.5 NUCLEATED RED BLOOD CELLS (BEAKER) (test 0 /100 WBC 0-0 eurj=818) NEUTROPHILS RELATIVE PERCENT (BEAKER) (test 38 % gzcb=193) LYMPHOCYTES RELATIVE PERCENT (BEAKER) (test 36 % fpme=029) MONOCYTES RELATIVE PERCENT (BEAKER) (test 22 % vffn=853) EOSINOPHILS RELATIVE PERCENT (BEAKER) (test 4 % tneo=256) BASOPHILS RELATIVE PERCENT (BEAKER) (test 0 % uuxg=938) NEUTROPHILS ABSOLUTE COUNT (BEAKER) (test 2.58 K/ L 1.80-8.00 jwku=045) LYMPHOCYTES ABSOLUTE COUNT (BEAKER) (test 2.45 K/ L 1.48-4.50 wzbq=400) MONOCYTES ABSOLUTE COUNT (BEAKER) (test 1.48 K/ L 0.00-1.30 vrwd=852) EOSINOPHILS ABSOLUTE COUNT (BEAKER) (test 0.26 K/ L 0.00-0.50 ffqi=542) BASOPHILS ABSOLUTE COUNT (BEAKER) (test 0.01 K/ L 0.00-0.20 owix=560) IMMATURE GRANULOCYTES-RELATIVE PERCENT (BEAKER) 0 % 0-0 (test hlzv=0487) TROPONIN [id number] 15:35:00 Test Item Value Reference Range Comments TROPONIN I (BEAKER) (test chqe=639) < ng/mL 0.00-0.15 CT, CHEST WITH IV CONTRAST- PE TEST [id number] 08:14:00Reason for exam:-& gt;CHEST PAINWhat is the [...] MDReport Verified Date/Time: 09/02/2018 08:14:32 Reading Location: [facility] Diagnostic Imaging Reading Room - [place] [address] BASIC METABOLIC [id number] 07:38:00 Test Item Value Reference Range Comments SODIUM (BEAKER) (test 134 meq/L 135-148 gqtn=837) POTASSIUM (BEAKER) (test 3.2 meq/L 3.6-5.5 mtft=092) CHLORIDE (BEAKER) (test 102 meq/L 98-106 cqsw=732) CO2 (BEAKER) (test 17 meq/L 20-29 xexy=107) BLOOD UREA NITROGEN 9 mg/dL 10-26 (BEAKER) (test aiwe=245) CREATININE (BEAKER) (test 1.20 mg/dL 0.50-1.20 boos=729) GLUCOSE RANDOM (BEAKER) 224 mg/dL 70-110 (test xniy=236) CALCIUM (BEAKER) (test 9.0 mg/dL 8.5-10.5 zhjl=997) EGFR (BEAKER) (test 65 mL/min/1.73 sq m ESTIMATED GFR IS NOT axom=6852) ACCURATE CREATININE CLEARANCE IN PREDICTING GLOMERULAR FILTRATION RATE. ESTIMATED GFR IS NOT APPLICABLE FOR DIALYSIS PATIENTS. [id number] 07:33:00 Test Item Value Reference Range Comments PROTIME (BEAKER) (test thhu=020) 11.5 sec 9.3-12.0 INR (BEAKER) (test sfpw=026) 1.1 <=5.9 PARTIAL THROMBOPLASTIN TIME (BEAKER) (test 139.2 sec 23.0-35.0 afex=691) RECOMMENDED COUMADIN/WARFARIN INR THERAPY RANGESSTANDARD DOSE: 2.0 - 3.0 Includes: PROPHYLAXIS forvenous thrombosis, systemic embolization; TREATMENT for venous thrombosis and/or pulmonary embolus.HIGH RISK: Target INR is 2.5-3.5 for patients with mechanical heart valves.Final Information (Auto Output)Final Information (Auto Output)Final Information (Auto Output)TROPONIN [id number] 07: 29:00 Test Item Value Reference Range Comments TROPONIN I (BEAKER) (test svbt=580) < ng/mL 0.00-0.15 B-TYPE NATRIURETIC FACTOR (BNP)2018-09-02 07:25:00 Test Item Value Reference Range Comments B-TYPE NATRIURETIC PEPTIDE (BEAKER) (test 150 pg/mL 0-100 rjea=604) [id number] 07:14:00 Test Item Value Reference Range Comments MAGNESIUM (BEAKER) (test qlww=877) 2.2 mg/dL 1.5-3.0 RAD, CHEST, 1 VIEW, NON [id number] 07:10:00Reason for exam:->CHEST PAINFINAL REPORT Chest one [...] Impression: No focal pulmonary consolidation. Signed: [facility] Verified Date/Time: 09/02/2018 07:10:11 Reading Location: [facility] B1 C013Y CT Body Reading Room CBC W/PLT COUNT & AUTO [id number] 07:03:00 Test Item Value Reference Range Comments WHITE BLOOD CELL COUNT (BEAKER) (test pgji=444) 9.7 K/ L 4.0-10.0 RED BLOOD CELL COUNT (BEAKER) (test ctry=739) 4.18 M/ L 4.20-5.80 HEMOGLOBIN (BEAKER) (test ubgl=870) 9.8 GM/DL 13.0-16.8 HEMATOCRIT (BEAKER) (test vqur=714) 32.6 % 36.0-50.0 MEAN CORPUSCULAR VOLUME (BEAKER) (test eqkh=916) 78.0 fL 82.0-99.0 MEAN CORPUSCULAR HEMOGLOBIN (BEAKER) (test 23.4 pg 27.0-33.0 bpbk=464) MEAN CORPUSCULAR HEMOGLOBIN CONC (BEAKER) (test 30.1 GM/DL 32.0-36.0 rxwh=191) RED CELL DISTRIBUTION WIDTH (BEAKER) (test 18.4 % 12.0-15.0 laef=945) PLATELET COUNT (BEAKER) (test wnyf=618) 354 K/CU MM 150-430 MEAN PLATELET VOLUME (BEAKER) (test rduq=960) 9.6 fL 6.0-11.5 NUCLEATED RED BLOOD CELLS (BEAKER) (test 0 /100 WBC 0-0 mdum=619) NEUTROPHILS RELATIVE PERCENT (BEAKER) (test 62 % bxbk=096) LYMPHOCYTES RELATIVE PERCENT (BEAKER) (test 26 % pvgo=926) MONOCYTES RELATIVE PERCENT (BEAKER) (test 10 % nsbp=095) EOSINOPHILS RELATIVE PERCENT (BEAKER) (test 1 % azrb=033) BASOPHILS RELATIVE PERCENT (BEAKER) (test 0 % oxuw=691) NEUTROPHILS ABSOLUTE COUNT (BEAKER) (test 6.00 K/ L 1.80-8.00 tikn=202) LYMPHOCYTES ABSOLUTE COUNT (BEAKER) (test 2.51 K/ L 1.48-4.50 rhrd=935) MONOCYTES ABSOLUTE COUNT (BEAKER) (test 0.99 K/ L 0.00-1.30 brlt=490) EOSINOPHILS ABSOLUTE COUNT (BEAKER) (test 0.13 K/ L 0.00-0.50 hrbh=589) BASOPHILS ABSOLUTE COUNT (BEAKER) (test 0.02 K/ L 0.00-0.20 nsfk=533) IMMATURE GRANULOCYTES-RELATIVE PERCENT (BEAKER) 0 % 0-0 (test iwjp=5541) CARDIAC PROFILE 2018-07-31 05:25:00 Test Item Value Reference Range Comments TROPONIN I (test code=A84) <0.015 ng/mL 0.000-0.045 CBC (INCLUDES AUTOMATED DIFFERENTIAL)*[id number] 01:33:00 Test Item Value Reference Range Comments [...] code=09D) 7.9 mg/dL 8.3-9.5 CBC (INCLUDES AUTOMATED DIFFERENTIAL)*[id number] 06:34:00 Test Item Value Reference Range Comments [...] CHEST WITH CONTRAST, PE PROTOCOL: Location code: [id number] HISTORY: Shortness of breath , chest painCOMPARISON: [...] (test code=09D) 8.6 mg/dL 8.3-9.5 Arterial Blood [id number] 08:55:00 Test Item Value Reference Range Comments pH (test code=PHRT) 7.412 7.350-7.450 pCO2 (test code=PCO2RT) 36.2 mmHg 35.0-45.0 pO2 (test code=PO2RT) 99.7 mmHg 80.0-110.0 HCO3? (test code=HCO3) 22.6 mmol/L 22.0-26.0 DARIO (test code=DARIO) -1.1 mmol/L -3.0-3.0 tHb (test code=THBRT) 11.0 g/dL 14.0-18.0 sO2 (test code=SO2RT) 96.9 % 92.0-100.0 FO2Hb (test code=FE1UTUF) 94.7 % 94.0-100.0 FCOHb (test code=FCOHBRT) 1.2 % 0.0-3.0 FMetHb (test code=FMETHBRT) 1.1 % 0.2-0.6 ABGTEMP (test code=ABGTEMP) * Temp Corrected Values* ABGTEMP (test code=ABGTEMP.) 37.0 ?C pH (T) (test code=PHTEMP) 7.412 7.350-7.450 pCO2 (T) (test code=XGS3HDPL) 36.2 mmHg 35.0-45.0 pO2 (T) (test code=OX9DNEN) 99.7 mmHg 80.0-110.0 Device (test code=DEVICE) ROOM [...] For Most Other Applications CBC (INCLUDES AUTOMATED DIFFERENTIAL)*[id number] 07:33:00 Test Item Value Reference Range Comments [...] XR CHEST 1 VIEW PORTABLE *WW*2018-07-15 07:25:22Location: [id number], FRONTAL VIEW HISTORY: [id number]: Chest painCOMPARISON: Chest x-ray 388FINDINGS: The lungs are clear without consolidation. No pleural effusion or pneumothorax.The heart size is normal. Thebones are unremarkable. Right IJ Port- A-Cath isin the SVC.IMPRESSION:No evidence of acute cardiopulmonary disease.BLOOD [id number] 16:00:00 Test Item Value Reference Range Comments CULTURE (BEAKER) (test ppqv=5589) No growth in 5 days BLOOD [id number] 16:00:00 Test Item Value Reference Range Comments CULTURE (BEAKER) (test ppma=6935) No growth in 5 days LACTIC ACID, VENOUS, WHOLE [id number] 14:43:00 Test Item Value Reference Range Comments LACTATE BLOOD VENOUS (2) (BEAKER) (test 1.3 mmol/L 0.5-2.2 aqvi=3808) Effective 02/12/2016: Units/Reference Range ChangeNew: 0.5-2.2 mmol/L Previous: 5 -18 mg/dLURINALYSIS W/ REFLEX URINE [id number] 14:17:00 Test Item Value Reference Range Comments COLOR (BEAKER) (test gyzg=430) Yellow CLARITY (BEAKER) (test opad=368) Clear SPECIFIC GRAVITY UA (BEAKER) (test fgop=191) 1.010 1.001-1.035 PH UA (BEAKER) (test ntba=619) 7.0 5.0-8.0 PROTEIN UA (BEAKER) (test wocz=113) Negative Negative GLUCOSE UA (BEAKER) (test svus=631) Negative Negative KETONES UA (BEAKER) (test xclp=295) Negative Negative BILIRUBIN UA (BEAKER) (test ctbm=925) Negative Negative BLOOD UA (BEAKER) (test ryfs=043) Negative Negative NITRITE UA (BEAKER) (test tsue=847) Negative Negative LEUKOCYTE ESTERASE UA (BEAKER) (test Negative Negative kekn=146) UROBILINOGEN UA (BEAKER) (test remp=517) 0.2 mg/dL 0.2-1.0 BACTERIA (BEAKER) (test fojw=851) None Seen RBC UA-MANUAL (BEAKER) (test bcjh=3231) None Seen /HPF WBC UA-MANUAL (BEAKER) (test svqn=2212) <5 /HPF SQUAMOUS EPITHELIAL MANUAL (BEAKER) (test None Seen /HPF dews=7852) SOURCE(BEAKER) (test yrre=3837) CT, CHEST WITH IV CONTRAST- PE TEST [id number] 13:14:00Reason for exam:-& gt;CHEST PAINReason for exam:->h/o [...] Verified Date/ Time: 05/24/2018 13:14:23 Reading Location: [address] Radiology Reading Room LACTIC ACID, VENOUS, WHOLE [id number] 11:37:00 Test Item Value Reference Range Comments LACTATE BLOOD VENOUS (2) (BEAKER) (test 4.6 mmol/L 0.5-2.2 jdik=5007) Effective 02/12/2016: Units/Reference Range ChangeNew: 0.5-2.2 mmol/L Previous: 5 -18 mg/dLCBC W/PLT COUNT & AUTO [id number] 11:20:00 Test Item Value Reference Range Comments WHITE BLOOD CELL COUNT (BEAKER) (test cinn=576) 9.8 K/ L 4.0-10.0 RED BLOOD CELL COUNT (BEAKER) (test mswj=012) 4.15 M/ L 4.20-5.80 HEMOGLOBIN (BEAKER) (test bkcy=111) 10.7 GM/DL 13.0-16.8 HEMATOCRIT (BEAKER) (test kuye=965) 33.6 % 40.0-50.0 MEAN CORPUSCULAR VOLUME (BEAKER) (test gkgf=005) 80.8 fL 82.0-98.0 MEAN CORPUSCULAR HEMOGLOBIN (BEAKER) (test 25.7 pg 27.0-33.0 epee=234) MEAN CORPUSCULAR HEMOGLOBIN CONC (BEAKER) (test 31.8 GM/DL 32.0-36.0 emge=714) RED CELL DISTRIBUTION WIDTH (BEAKER) (test 28.4 % 10.3-14.2 vfsf=619) PLATELET COUNT (BEAKER) (test bbuv=090) 324 K/CU MM 150-430 MEAN PLATELET VOLUME (BEAKER) (test qyyd=137) 7.3 fL 6.5-10.5 NUCLEATED RED BLOOD CELLS (BEAKER) (test 0 /100 WBC 0-0 jxrk=158) NEUTROPHILS RELATIVE PERCENT (BEAKER) (test 75 % gouo=018) LYMPHOCYTES RELATIVE PERCENT (BEAKER) (test 17 % ondm=030) MONOCYTES RELATIVE PERCENT (BEAKER) (test 6 % yqif=275) EOSINOPHILS RELATIVE PERCENT (BEAKER) (test 2 % zsoo=028) BASOPHILS RELATIVE PERCENT (BEAKER) (test 0 % gear=037) NEUTROPHILS ABSOLUTE COUNT (BEAKER) (test 7.30 K/ L 1.80-8.00 nfnc=558) LYMPHOCYTES ABSOLUTE COUNT (BEAKER) (test 1.70 K/ L 1.48-4.50 qsie=662) MONOCYTES ABSOLUTE COUNT (BEAKER) (test 0.60 K/ L 0.00-1.30 xsbp=490) EOSINOPHILS ABSOLUTE COUNT (BEAKER) (test 0.20 K/ L 0.00-0.50 zvts=584) BASOPHILS ABSOLUTE COUNT (BEAKER) (test 0.00 K/ L 0.00-0.20 ebch=022) (MANUAL DIFFERENTIAL)2018-05-24 11:20:00 Test Item Value Reference Range Comments TOTAL COUNTED (BEAKER) (test bmhw=8068) WBC MORPHOLOGY (BEAKER) (test vjks=702) Normal PLT MORPHOLOGY (BEAKER) (test sxbt=351) Normal ANISOCYTOSIS (BEAKER) (test nnwf=128) 3+ many HYPOCHROMIA (BEAKER) (test waqz=685) 3+ many TROPONIN [id number] 11:12:00 Test Item Value Reference Range Comments TROPONIN I (BEAKER) (test czyo=957) < ng/mL 0.00-0.15 Troponin I (TnI) levels [...] and persistent tachyarrhythmia.CREATINE KINASE (CK), TOTAL AND [id number] 11:11:00 Test Item Value Reference Range Comments CREATINE KINASE TOTAL (BEAKER) (test ykwb=352) 76 U/L 40-250 CREATINE KINASE-MB (BEAKER) (test hgvd=578) 1.2 ng/mL 0.0-4.9 CREATINE KINASE-MB INDEX (BEAKER) (test cvar=158) 1.6 % CK-MB Reference Range:<5 Normal5-10 Borderline>10 AbnormalHEPATIC FUNCTION [id number] 11:06:00 Test Item Value Reference Range Comments TOTAL PROTEIN (BEAKER) (test tdyx=331) 7.0 gm/dL 6.0-8.5 ALBUMIN (BEAKER) (test mtor=1465) 4.3 g/dL 3.5-5.0 BILIRUBIN TOTAL (BEAKER) (test ydht=976) 0.4 mg/dL 0.1-1.2 BILIRUBIN DIRECT (BEAKER) (test vljf=075) 0.2 mg/dL 0.0-0.4 ALKALINE PHOSPHATASE (BEAKER) (test tugb=381) 70 U/L 30-115 AST (SGOT) (BEAKER) (test jkes=110) 18 U/L 5-40 ALT (SGPT) (BEAKER) (test jlqx=549) 13 U/L 5-50 BASIC METABOLIC [id number] 11:03:00 Test Item Value Reference Range Comments SODIUM (BEAKER) (test 138 meq/L 135-148 zelh=085) POTASSIUM (BEAKER) (test 3.6 meq/L 3.6-5.5 dsdm=472) CHLORIDE (BEAKER) (test 106 meq/L 98-106 rwma=952) CO2 (BEAKER) (test 21 meq/L 20-29 hasf=083) BLOOD UREA NITROGEN 11 mg/dL 10-26 (BEAKER) (test vhoy=409) CREATININE (BEAKER) (test 0.96 mg/dL 0.50-1.20 asvm=588) GLUCOSE RANDOM (BEAKER) 212 mg/dL 70-110 (test vdyr=592) CALCIUM (BEAKER) (test 9.4 mg/dL 8.5-10.5 qsgo=505) EGFR (BEAKER) (test 84 mL/min/1.73 sq m ESTIMATED GFR IS NOT jibs=1359) ACCURATE CREATININE CLEARANCE IN PREDICTING GLOMERULAR FILTRATION RATE. ESTIMATED GFR IS NOT APPLICABLE FOR DIALYSIS PATIENTS. B-TYPE NATRIURETIC FACTOR (BNP)2018-05-24 11:02:00 Test Item Value Reference Range Comments B-TYPE NATRIURETIC PEPTIDE (BEAKER) (test elhh=246) 8 pg/mL 0-100 PT/[id number] 10:53:00 Test Item Value Reference Range Comments PROTIME (BEAKER) (test gzgb=698) 9.9 sec 9.3-12.0 INR (BEAKER) (test bmno=046) 0.9 <=5.9 PARTIAL THROMBOPLASTIN TIME (BEAKER) (test 39.3 sec 23.0-35.0 pmco=201) RECOMMENDED COUMADIN/WARFARIN INR THERAPY RANGESSTANDARD DOSE: 2.0 - 3.0 Includes: PROPHYLAXIS forvenous thrombosis, systemic embolization; TREATMENT for venous thrombosis and/or pulmonary embolus.HIGH RISK: Target INR is 2.5-3.5 for patients with mechanical heart valves.Final Information (Auto Output)Final Information (Auto Output)Final Information (Auto Output)RAD, CHEST, 1 VIEW, NON [id number] 10:18:00Reason for exam:->CHEST PAINShould this be performed at the bedside?->YesFINAL REPORT Chest one view INDICATION: Chest pain COMPARISON: 09/27/2016 IMPRESSION: There is no focal consolidation, vascular congestion, pleural effusion, or pneumothorax. Heart size is within normal limits. Mild aortic tortuosity is noted. A right chest Port-A-Cath is in place. The bones appear intact. Signed: Cuauhtemoc, Visveshwar MDReport Verified Date/Time: 05/24/2018 10:18:17 Reading Location: [facility] Radiology Reading Room CBC W/PLT COUNT & AUTO [id number] 08: 55:00 Test Item Value Reference Range Comments WHITE BLOOD CELL COUNT (BEAKER) (test fspv=969) 5.4 K/ L 4.0-10.0 RED BLOOD CELL COUNT (BEAKER) (test utud=804) 3.90 M/ L 4.20-5.80 HEMOGLOBIN (BEAKER) (test vvmz=289) 9.2 GM/DL 13.0-16.8 HEMATOCRIT (BEAKER) (test bssy=981) 29.2 % 40.0-50.0 MEAN CORPUSCULAR VOLUME (BEAKER) (test upcw=196) 75.0 fL 82.0-98.0 MEAN CORPUSCULAR HEMOGLOBIN (BEAKER) (test 23.7 pg 27.0-33.0 jbef=146) MEAN CORPUSCULAR HEMOGLOBIN CONC (BEAKER) (test 31.5 GM/DL 32.0-36.0 uvso=545) RED CELL DISTRIBUTION WIDTH (BEAKER) (test 26.3 % 10.3-14.2 oizo=726) PLATELET COUNT (BEAKER) (test ittm=899) 338 K/CU MM 150-430 MEAN PLATELET VOLUME (BEAKER) (test rpqs=111) 7.9 fL 6.5-10.5 (MANUAL DIFFERENTIAL)2018-04-26 08:55:00 Test Item Value Reference Range Comments NEUTROPHILS - REL (DIFF) (BEAKER) (test pufm=4568) 61 % LYMPHOCYTES - REL (DIFF) (BEAKER) (test ptzw=7266) 32 % MONOCYTES - REL (DIFF) (BEAKER) (test excn=5207) 5 % EOSINOPHILS - REL (DIFF) (BEAKER) (test xbpc=5361) 2 % NEUTROPHILS - ABS (DIFF) (BEAKER) (test nase=1815) 3.29 K/ L 1.80-8.00 LYMPHOCYTES - ABS (DIFF) (BEAKER) (test ugjc=3919) 1.73 K/ L 1.48-4.50 MONOCYTES - ABS (DIFF) (BEAKER) (test lbyc=1284) 0.27 K/ L 0.00-1.30 EOSINOPHILS - ABS (DIFF) (BEAKER) (test dnkc=3688) 0.11 K/ L 0.00-0.50 TOTAL COUNTED (BEAKER) (test xafe=3472) 100 WBC MORPHOLOGY (BEAKER) (test zdtw=105) Normal PLT MORPHOLOGY (BEAKER) (test uixh=834) Normal ANISOCYTOSIS (BEAKER) (test jnlw=497) 1+ few HYPOCHROMIA (BEAKER) (test npkp=589) 3+ many PROTHROMBIN [id number] 06:37:00 Test Item Value Reference Range Comments PROTIME (BEAKER) (test hzao=605) 21.9 sec 9.3-12.0 INR (BEAKER) (test dfch=244) 2.1 <=5.9 RECOMMENDED COUMADIN/WARFARIN INR THERAPY RANGESSTANDARD DOSE: 2.0 - 3.0 Includes: PROPHYLAXIS forvenous thrombosis, systemic embolization; TREATMENT for venous thrombosis and/or pulmonary embolus.HIGH RISK: Target INR is 2.5-3.5 for patients with mechanical heart valves.Final Information (Auto Output)Final Information (Auto Output)[id number] 04:49:00 Test Item Value Reference Range Comments PARTIAL THROMBOPLASTIN TIME (BEAKER) (test fesz=192) > sec 23.0-35.0 Final Information (Auto Output)[id number] 16:53:00 Test Item Value Reference Range Comments PARTIAL THROMBOPLASTIN TIME (BEAKER) (test squs=027) > sec 23.0-35.0 Final Information (Auto Output)[id number] 06:08:00 Test Item Value Reference Range Comments PARTIAL THROMBOPLASTIN TIME (BEAKER) (test 116.2 sec 23.0-35.0 ojpo=945) Final Information (Auto Output)PROTHROMBIN TIME/[id number] 06:01:00 Test Item Value Reference Range Comments PROTIME (BEAKER) (test jwht=211) 15.9 sec 9.3-12.0 INR (BEAKER) (test hkzi=340) 1.5 <=5.9 RECOMMENDED COUMADIN/WARFARIN INR THERAPY RANGESSTANDARD DOSE: 2.0 - 3.0 Includes: PROPHYLAXIS forvenous thrombosis, systemic embolization; TREATMENT for venous thrombosis and/or pulmonary embolus.HIGH RISK: Target INR is 2.5-3.5 for patients with mechanical heart valves.Final Information (Auto Output)Final Information (Auto Output)[id number] 19:40:00 Test Item Value Reference Range Comments PARTIAL THROMBOPLASTIN TIME (BEAKER) (test 67.2 sec 23.0-35.0 dpix=103) Final Information (Auto Output)[id number] 10:46:00 Test Item Value Reference Range Comments PARTIAL THROMBOPLASTIN TIME (BEAKER) (test 63.5 sec 23.0-35.0 hrkj=968) Final Information (Auto Output)CBC W/PLT COUNT & AUTO [id number] 06:53:00 Test Item Value Reference Range Comments WHITE BLOOD CELL COUNT (BEAKER) (test esus=666) 6.3 K/ L 4.0-10.0 RED BLOOD CELL COUNT (BEAKER) (test phbv=423) 3.98 M/ L 4.20-5.80 HEMOGLOBIN (BEAKER) (test ahxo=836) 9.2 GM/DL 13.0-16.8 HEMATOCRIT (BEAKER) (test hyan=772) 29.6 % 40.0-50.0 MEAN CORPUSCULAR VOLUME (BEAKER) (test qlmu=955) 74.3 fL 82.0-98.0 MEAN CORPUSCULAR HEMOGLOBIN (BEAKER) (test 23.1 pg 27.0-33.0 qqfa=089) MEAN CORPUSCULAR HEMOGLOBIN CONC (BEAKER) (test 31.1 GM/DL 32.0-36.0 jahw=724) RED CELL DISTRIBUTION WIDTH (BEAKER) (test 23.2 % 10.3-14.2 qcrm=629) PLATELET COUNT (BEAKER) (test cigs=428) 356 K/CU MM 150-430 MEAN PLATELET VOLUME (BEAKER) (test aqdd=329) 7.3 fL 6.5-10.5 NUCLEATED RED BLOOD CELLS (BEAKER) (test 0 /100 WBC 0-0 cazt=464) NEUTROPHILS RELATIVE PERCENT (BEAKER) (test 49 % cjih=275) LYMPHOCYTES RELATIVE PERCENT (BEAKER) (test 36 % mnvo=893) MONOCYTES RELATIVE PERCENT (BEAKER) (test 12 % ihtb=835) EOSINOPHILS RELATIVE PERCENT (BEAKER) (test 3 % ubgw=823) BASOPHILS RELATIVE PERCENT (BEAKER) (test 0 % hqhc=701) NEUTROPHILS ABSOLUTE COUNT (BEAKER) (test 3.10 K/ L 1.80-8.00 lfsb=824) LYMPHOCYTES ABSOLUTE COUNT (BEAKER) (test 2.30 K/ L 1.48-4.50 ukxg=439) MONOCYTES ABSOLUTE COUNT (BEAKER) (test 0.80 K/ L 0.00-1.30 gvhn=891) EOSINOPHILS ABSOLUTE COUNT (BEAKER) (test 0.20 K/ L 0.00-0.50 llii=152) BASOPHILS ABSOLUTE COUNT (BEAKER) (test 0.00 K/ L 0.00-0.20 hcgd=812) (MANUAL DIFFERENTIAL)2018-04-24 06:53:00 Test Item Value Reference Range Comments TOTAL COUNTED (BEAKER) (test jjfn=4297) WBC MORPHOLOGY (BEAKER) (test jfsf=696) Normal PLT MORPHOLOGY (BEAKER) (test hrtw=100) Normal ANISOCYTOSIS (BEAKER) (test jflb=938) 2+ moderate BASOPHILIC STIPPLING (BEAKER) (test hfjd=434) Present HYPOCHROMIA (BEAKER) (test rcno=847) 2+ moderate MACROCYTES (BEAKER) (test llqv=187) 1+ few MICROCYTES (BEAKER) (test wjcj=044) 1+ few POLYCHROMATOPHILLIC RBCS(BEAKER) (test aycv=665) 1+ few PROTHROMBIN TIME/[id number] 05:46:00 Test Item Value Reference Range Comments PROTIME (BEAKER) (test ezqe=262) 14.5 sec 9.3-12.0 INR (BEAKER) (test lvci=031) 1.4 <=5.9 RECOMMENDED COUMADIN/WARFARIN INR THERAPY RANGESSTANDARD DOSE: 2.0 - 3.0 Includes: PROPHYLAXIS forvenous thrombosis, systemic embolization; TREATMENT for venous thrombosis and/or pulmonary embolus.HIGH RISK: Target INR is 2.5-3.5 for patients with mechanical heart valves.Final Information (Auto Output)Final Information (Auto Output)[id number] 01:17:00 Test Item Value Reference Range Comments PARTIAL THROMBOPLASTIN TIME (BEAKER) (test 71.8 sec 23.0-35.0 iptz=914) Final Information (Auto Output)[id number] 15:40:00 Test Item Value Reference Range Comments PARTIAL THROMBOPLASTIN TIME (BEAKER) (test 34.8 sec 23.0-35.0 fcxe=687) Final Information (Auto Output)PROTHROMBIN TIME/[id number] 06:10:00 Test Item Value Reference Range Comments PROTIME (BEAKER) (test kwod=089) 12.2 sec 9.3-12.0 INR (BEAKER) (test czxf=980) 1.1 <=5.9 RECOMMENDED COUMADIN/WARFARIN INR THERAPY RANGESSTANDARD DOSE: 2.0 - 3.0 Includes: PROPHYLAXIS forvenous thrombosis, systemic embolization; TREATMENT for venous thrombosis and/or pulmonary embolus.HIGH RISK: Target INR is 2.5-3.5 for patients with mechanical heart valves.Final Information (Auto Output)Final Information (Auto Output)[id number] 06:10:00 Test Item Value Reference Range Comments PARTIAL THROMBOPLASTIN TIME (BEAKER) (test 36.3 sec 23.0-35.0 sliw=600) Final Information (Auto Output)[id number] 20:01:00 Test Item Value Reference Range Comments PARTIAL THROMBOPLASTIN TIME (BEAKER) (test 122.6 sec 23.0-35.0 yxgq=872) Final Information (Auto Output)PROTHROMBIN TIME/[id number] 12:53:00 Test Item Value Reference Range Comments PROTIME (BEAKER) (test mpvj=140) 12.6 sec 9.3-12.0 INR (BEAKER) (test mutd=401) 1.2 <=5.9 RECOMMENDED COUMADIN/WARFARIN INR THERAPY RANGESSTANDARD DOSE: 2.0 - 3.0 Includes: PROPHYLAXIS forvenous thrombosis, systemic embolization; TREATMENT for venous thrombosis and/or pulmonary embolus.HIGH RISK: Target INR is 2.5-3.5 for patients with mechanical heart valves.Final Information (Auto Output)Final Information (Auto Output)PROTEIN ELECTROPHORESIS, [id number] 12:15:00 Test Item Value Reference Range Comments ALBUMIN FRACTION (BEAKER) 3.5 g/dL 3.5-5.5 (test fown=972) ALPHA 1 FRACTION (BEAKER) 0.2 g/dL 0.2-0.4 (test mank=693) ALPHA 2 FRACTION (BEAKER) 0.6 g/dL 0.5-0.9 (test geqg=931) BETA FRACTION (BEAKER) (test 1.1 g/dL 0.6-1.1 jmqf=615) GAMMA GLOBULIN FRACTION 0.8 g/dL 0.7-1.7 (BEAKER) (test vezk=325) INTERPRETATION-119 (BEAKER) All fractions present in (test ihlr=9333) expected distribution. No monoclonal bands detected. [id number] (BEAKER) Annmarie Thomas MD (test jgxo=4749) (electronic signature) PROTEIN TOTAL SERUM, SPEP 6.3 gm/dL 6.0-8.3 (BEAKER) (test pvku=6915) CBC W/PLT COUNT & AUTO [id number] 11:59:00 Test Item Value Reference Range Comments WHITE BLOOD CELL COUNT (BEAKER) (test krma=874) 6.4 K/ L 4.0-10.0 RED BLOOD CELL COUNT (BEAKER) (test ptue=753) 3.87 M/ L 4.20-5.80 HEMOGLOBIN (BEAKER) (test gzvw=761) 8.8 GM/DL 13.0-16.8 HEMATOCRIT (BEAKER) (test dqjm=411) 28.3 % 40.0-50.0 MEAN CORPUSCULAR VOLUME (BEAKER) (test xaxj=994) 72.9 fL 82.0-98.0 MEAN CORPUSCULAR HEMOGLOBIN (BEAKER) (test 22.7 pg 27.0-33.0 quxw=309) MEAN CORPUSCULAR HEMOGLOBIN CONC (BEAKER) (test 31.1 GM/DL 32.0-36.0 ldyw=060) RED CELL DISTRIBUTION WIDTH (BEAKER) (test 22.3 % 10.3-14.2 uhaw=928) PLATELET COUNT (BEAKER) (test loxu=795) 339 K/CU MM 150-430 MEAN PLATELET VOLUME (BEAKER) (test mfyl=818) 7.0 fL 6.5-10.5 NUCLEATED RED BLOOD CELLS (BEAKER) (test 0 /100 WBC 0-0 tlst=196) NEUTROPHILS RELATIVE PERCENT (BEAKER) (test 53 % vhip=207) LYMPHOCYTES RELATIVE PERCENT (BEAKER) (test 31 % kddl=196) MONOCYTES RELATIVE PERCENT (BEAKER) (test 13 % gtdt=688) EOSINOPHILS RELATIVE PERCENT (BEAKER) (test 3 % dthe=709) BASOPHILS RELATIVE PERCENT (BEAKER) (test 0 % diws=616) NEUTROPHILS ABSOLUTE COUNT (BEAKER) (test 3.40 K/ L 1.80-8.00 vrps=255) LYMPHOCYTES ABSOLUTE COUNT (BEAKER) (test 2.00 K/ L 1.48-4.50 ectz=359) MONOCYTES ABSOLUTE COUNT (BEAKER) (test 0.80 K/ L 0.00-1.30 ntyc=857) EOSINOPHILS ABSOLUTE COUNT (BEAKER) (test 0.20 K/ L 0.00-0.50 xooi=952) BASOPHILS ABSOLUTE COUNT (BEAKER) (test 0.00 K/ L 0.00-0.20 jngx=472) (MANUAL DIFFERENTIAL)2018-04-22 11:59:00 Test Item Value Reference Range Comments TOTAL COUNTED (BEAKER) (test kqbr=9182) WBC MORPHOLOGY (BEAKER) (test fnnd=761) Normal PLT MORPHOLOGY (BEAKER) (test eiof=691) Normal ANISOCYTOSIS (BEAKER) (test askr=868) 2+ moderate HYPOCHROMIA (BEAKER) (test ftyd=869) 3+ many PROTHROMBIN GENE [id number] 11:51:00 Test Item Value Reference Range Comments PROTHROMBIN/FACTOR II Negative for the [id number] (BEAKER) (test thpw=2436) (Prothrombin/Factor II) mutation. [id number](NIMO Thomas MD ) (test rqxc=7221) (electronic signature) This test is a genotyping assay which evaluates the DNA sequence at position [address]53 of the prothrombin (Factor II) gene. A [...] and its performance characteristics determined by the [facility] Pathology Department, Section of Molecular Pathology. It [...] (BEAKER) Negative for the R506Q (Factor (test iqfd=430) V Leiden) mutation [id number] (BEAKER) Annmarie Thomas MD (test atqe=3050) (electronic signature) This test is a genotyping [...] developed and its performance characteristics determined bythe [facility], Section of Molecular Pathology. It has not been cleared or approved by the U.S. Food and Drug Administration (FDA), since FDA approval is not required for clinical use of the test. Validation was done as required by the Clinical Laboratory Improvement Amendments of 1988.[id number] 10:00:00 Test Item Value Reference Range Comments PARTIAL THROMBOPLASTIN TIME (BEAKER) (test pbdj=353) > sec 23.0-35.0 Final Information (Auto Output)[id number] 00:43:00 Test Item Value Reference Range Comments PARTIAL THROMBOPLASTIN TIME (BEAKER) (test 81.0 sec 23.0-35.0 tekj=028) Final Information (Auto Output)[id number] 17:32:00 Test Item Value Reference Range Comments PARTIAL THROMBOPLASTIN TIME (BEAKER) (test 37.3 sec 23.0-35.0 wvjd=311) Final Information (Auto Output)CBC W/PLT COUNT & AUTO [id number] 08:19:00 Test Item Value Reference Range Comments WHITE BLOOD CELL COUNT (BEAKER) (test dtqe=079) 6.2 K/ L 4.0-10.0 RED BLOOD CELL COUNT (BEAKER) (test igap=356) 3.89 M/ L 4.20-5.80 HEMOGLOBIN (BEAKER) (test mpfx=123) 8.7 GM/DL 13.0-16.8 HEMATOCRIT (BEAKER) (test uccb=581) 27.8 % 40.0-50.0 MEAN CORPUSCULAR VOLUME (BEAKER) (test xxqf=081) 71.4 fL 82.0-98.0 MEAN CORPUSCULAR HEMOGLOBIN (BEAKER) (test 22.4 pg 27.0-33.0 ewow=342) MEAN CORPUSCULAR HEMOGLOBIN CONC (BEAKER) (test 31.4 GM/DL 32.0-36.0 ulcb=525) RED CELL DISTRIBUTION WIDTH (BEAKER) (test 21.7 % 10.3-14.2 gqhz=677) PLATELET COUNT (BEAKER) (test izcq=014) 347 K/CU MM 150-430 MEAN PLATELET VOLUME (BEAKER) (test nxvw=927) 7.1 fL 6.5-10.5 NUCLEATED RED BLOOD CELLS (BEAKER) (test 0 /100 WBC 0-0 qkxp=223) NEUTROPHILS RELATIVE PERCENT (BEAKER) (test 52 % vesy=969) LYMPHOCYTES RELATIVE PERCENT (BEAKER) (test 34 % hema=079) MONOCYTES RELATIVE PERCENT (BEAKER) (test 10 % tozi=127) EOSINOPHILS RELATIVE PERCENT (BEAKER) (test 3 % lxvp=903) BASOPHILS RELATIVE PERCENT (BEAKER) (test 0 % kjeh=964) NEUTROPHILS ABSOLUTE COUNT (BEAKER) (test 3.20 K/ L 1.80-8.00 nozo=882) LYMPHOCYTES ABSOLUTE COUNT (BEAKER) (test 2.10 K/ L 1.48-4.50 hptt=311) MONOCYTES ABSOLUTE COUNT (BEAKER) (test 0.60 K/ L 0.00-1.30 pgvn=549) EOSINOPHILS ABSOLUTE COUNT (BEAKER) (test 0.20 K/ L 0.00-0.50 oxhx=132) BASOPHILS ABSOLUTE COUNT (BEAKER) (test 0.00 K/ L 0.00-0.20 happ=019) (MANUAL DIFFERENTIAL)2018-04-21 08:19:00 Test Item Value Reference Range Comments TOTAL COUNTED (BEAKER) (test aepe=9244) WBC MORPHOLOGY (BEAKER) (test dqtr=360) Normal PLT MORPHOLOGY (BEAKER) (test bjjm=781) Normal ANISOCYTOSIS (BEAKER) (test fmqr=570) 2+ moderate HYPOCHROMIA (BEAKER) (test geeo=493) 2+ moderate MICROCYTES (BEAKER) (test kzup=608) 1+ few POLYCHROMATOPHILLIC RBCS(BEAKER) (test mqid=943) 1+ few BASIC METABOLIC [id number] 08:00:00 Test Item Value Reference Range Comments SODIUM (BEAKER) (test 141 meq/L 135-148 ejrx=921) POTASSIUM (BEAKER) (test 3.6 meq/L 3.6-5.5 blix=829) CHLORIDE (BEAKER) (test 109 meq/L 98-106 culc=676) CO2 (BEAKER) (test 24 meq/L 20-29 dzwy=276) BLOOD UREA NITROGEN 9 mg/dL 10-26 (BEAKER) (test lazt=853) CREATININE (BEAKER) (test 0.76 mg/dL 0.50-1.20 hfhg=754) GLUCOSE RANDOM (BEAKER) 86 mg/dL 70-110 (test zuaj=266) CALCIUM (BEAKER) (test 9.0 mg/dL 8.5-10.5 ievh=509) EGFR (BEAKER) (test 110 mL/min/1.73 sq m ESTIMATED GFR IS NOT mepd=6667) ACCURATE CREATININE CLEARANCE IN PREDICTING GLOMERULAR FILTRATION RATE. ESTIMATED GFR IS NOT APPLICABLE FOR DIALYSIS PATIENTS. PROTHROMBIN TIME/[id number] 07:55:00 Test Item Value Reference Range Comments PROTIME (BEAKER) (test zhqr=943) 11.4 sec 9.3-12.0 INR (BEAKER) (test tiuc=498) 1.1 <=5.9 RECOMMENDED COUMADIN/WARFARIN INR THERAPY RANGESSTANDARD DOSE: 2.0 - 3.0 Includes: PROPHYLAXIS forvenous thrombosis, systemic embolization; TREATMENT for venous thrombosis and/or pulmonary embolus.HIGH RISK: Target INR is 2.5-3.5 for patients with mechanical heart valves.Final Information (Auto Output)Final Information (Auto Output)[id number] 07:52:00 Test Item Value Reference Range Comments PARTIAL THROMBOPLASTIN TIME (BEAKER) (test 71.6 sec 23.0-35.0 uxhu=421) Final Information (Auto Output)[id number] 22:28:00 Test Item Value Reference Range Comments PARTIAL THROMBOPLASTIN TIME (BEAKER) (test 119.3 sec 23.0-35.0 jioh=979) Final Information (Auto Output)CBC (HEMOGRAM ONLY)2018-04-20 21:32:00 Test Item Value Reference Range Comments WHITE BLOOD CELL COUNT (BEAKER) (test oboz=145) 7.0 K/ L 4.0-10.0 RED BLOOD CELL COUNT (BEAKER) (test ukob=712) 3.89 M/ L 4.20-5.80 HEMOGLOBIN (BEAKER) (test qhic=243) 8.8 GM/DL 13.0-16.8 HEMATOCRIT (BEAKER) (test egai=263) 27.6 % 40.0-50.0 MEAN CORPUSCULAR VOLUME (BEAKER) (test olsx=313) 70.8 fL 82.0-98.0 MEAN CORPUSCULAR HEMOGLOBIN (BEAKER) (test 22.6 pg 27.0-33.0 wvys=495) MEAN CORPUSCULAR HEMOGLOBIN CONC (BEAKER) (test 32.0 GM/DL 32.0-36.0 izls=753) RED CELL DISTRIBUTION WIDTH (BEAKER) (test 20.0 % 10.3-14.2 kxgm=642) PLATELET COUNT (BEAKER) (test ejvl=882) 360 K/CU MM 150-430 MEAN PLATELET VOLUME (BEAKER) (test xrmz=180) 7.4 fL 6.5-10.5 [id number] 12:43:00 Test Item Value Reference Range Comments PARTIAL THROMBOPLASTIN TIME (BEAKER) (test 72.2 sec 23.0-35.0 oafo=230) Final Information (Auto Output)CARDIOLIPIN ANTIBODIES, IGG AND [id number] 12: 16:00 Test Item Value Reference Range Comments ANTICARDIOLIPIN IGG ANTIBODY (BEAKER) (test < GPL <20.0 fmfc=956) ANTICARDIOLIPIN IGM ANTIBODY (BEAKER) (test 0.5 MPL <20.0 nibq=703) Anticardiolipin IgG Result Interpretation: <20.0 GPL Normal>/=20.0 GPL PositiveAnticardiolipin IgM Result Interpretation: <20.0 MPL Normal>/= 20.0 MPL PositiveCBC W/PLT COUNT & AUTO [id number] 08:58:00 Test Item Value Reference Range Comments WHITE BLOOD CELL COUNT (BEAKER) (test jjfe=287) 6.4 K/ L 4.0-10.0 RED BLOOD CELL COUNT (BEAKER) (test ghho=292) 4.00 M/ L 4.20-5.80 HEMOGLOBIN (BEAKER) (test pnrv=428) 9.0 GM/DL 13.0-16.8 HEMATOCRIT (BEAKER) (test nbag=063) 28.6 % 40.0-50.0 MEAN CORPUSCULAR VOLUME (BEAKER) (test erny=939) 71.7 fL 82.0-98.0 MEAN CORPUSCULAR HEMOGLOBIN (BEAKER) (test 22.5 pg 27.0-33.0 dybd=913) MEAN CORPUSCULAR HEMOGLOBIN CONC (BEAKER) (test 31.4 GM/DL 32.0-36.0 spaz=359) RED CELL DISTRIBUTION WIDTH (BEAKER) (test 21.7 % 10.3-14.2 phtj=536) PLATELET COUNT (BEAKER) (test thku=721) 355 K/CU MM 150-430 MEAN PLATELET VOLUME (BEAKER) (test adqn=489) 7.1 fL 6.5-10.5 NUCLEATED RED BLOOD CELLS (BEAKER) (test 0 /100 WBC 0-0 uvnz=170) NEUTROPHILS RELATIVE PERCENT (BEAKER) (test 48 % zpss=873) LYMPHOCYTES RELATIVE PERCENT (BEAKER) (test 36 % ztmc=708) MONOCYTES RELATIVE PERCENT (BEAKER) (test 12 % ztae=603) EOSINOPHILS RELATIVE PERCENT (BEAKER) (test 4 % gqno=025) BASOPHILS RELATIVE PERCENT (BEAKER) (test 0 % gkkh=789) NEUTROPHILS ABSOLUTE COUNT (BEAKER) (test 3.10 K/ L 1.80-8.00 nxgi=965) LYMPHOCYTES ABSOLUTE COUNT (BEAKER) (test 2.30 K/ L 1.48-4.50 gnzh=064) MONOCYTES ABSOLUTE COUNT (BEAKER) (test 0.80 K/ L 0.00-1.30 acbk=788) EOSINOPHILS ABSOLUTE COUNT (BEAKER) (test 0.20 K/ L 0.00-0.50 lplx=516) BASOPHILS ABSOLUTE COUNT (BEAKER) (test 0.00 K/ L 0.00-0.20 manf=716) (MANUAL DIFFERENTIAL)2018-04-20 08:58:00 Test Item Value Reference Range Comments TOTAL COUNTED (BEAKER) (test khpi=5341) WBC MORPHOLOGY (BEAKER) (test fgen=638) Normal PLT MORPHOLOGY (BEAKER) (test axnj=528) Normal ANISOCYTOSIS (BEAKER) (test nxro=215) 1+ few HYPOCHROMIA (BEAKER) (test cbag=693) 1+ few POIKILOCYTES (BEAKER) (test qvhk=252) 1+ few POLYCHROMATOPHILLIC RBCS(BEAKER) (test nwij=626) 1+ few BASIC METABOLIC [id number] 08:26:00 Test Item Value Reference Range Comments SODIUM (BEAKER) (test 140 meq/L 135-148 xkch=736) POTASSIUM (BEAKER) (test 3.9 meq/L 3.6-5.5 kvzl=929) CHLORIDE (BEAKER) (test 107 meq/L 98-106 zote=824) CO2 (BEAKER) (test 24 meq/L 20-29 kgxw=444) BLOOD UREA NITROGEN 12 mg/dL 10-26 (BEAKER) (test ajen=664) CREATININE (BEAKER) (test 0.76 mg/dL 0.50-1.20 alkt=230) GLUCOSE RANDOM (BEAKER) 92 mg/dL 70-110 (test grae=338) CALCIUM (BEAKER) (test 8.9 mg/dL 8.5-10.5 aaty=095) EGFR (BEAKER) (test 110 mL/min/1.73 sq m ESTIMATED GFR IS NOT zsbg=7202) ACCURATE CREATININE CLEARANCE IN PREDICTING GLOMERULAR FILTRATION RATE. ESTIMATED GFR IS NOT APPLICABLE FOR DIALYSIS PATIENTS. PROTHROMBIN TIME/[id number] 08:16:00 Test Item Value Reference Range Comments PROTIME (BEAKER) (test bhzd=324) 10.6 sec 9.3-12.0 INR (BEAKER) (test ehjs=681) 1.0 <=5.9 RECOMMENDED COUMADIN/WARFARIN INR THERAPY RANGESSTANDARD DOSE: 2.0 - 3.0 Includes: PROPHYLAXIS forvenous thrombosis, systemic embolization; TREATMENT for venous thrombosis and/or pulmonary embolus.HIGH RISK: Target INR is 2.5-3.5 for patients with mechanical heart valves.Final Information (Auto Output)Final Information (Auto Output)[id number] 08:16:00 Test Item Value Reference Range Comments D-DIMER QUANTITATIVE (BEAKER) (test zirr=245) 0.93 mg/L <0.50 REGARDING D-DIMER RESULTS: The 98% NPV (Negative Predictive Value) for DVT/PE exclusion is 0.50 mg/LFEU as suggested by the [employer] and as approved by the FDA.Final Information (Auto Output)[id number] 02:51:00 Test Item Value Reference Range Comments PARTIAL THROMBOPLASTIN TIME (BEAKER) (test jarh=866) > sec 23.0-35.0 Final Information (Auto Output)[id number] 17:54:00 Test Item Value Reference Range Comments PARTIAL THROMBOPLASTIN TIME (BEAKER) (test 72.2 sec 23.0-35.0 jewl=612) Final Information (Auto Output)ANTITHROMBIN [id number] 11:29:00 Test Item Value Reference Range Comments ANTITHROMBIN III ACTIVITY (BEAKER) (test jfyl=093) 81.0 % 80.0-120.0 CBC W/PLT COUNT & AUTO [id number] 10:34:00 Test Item Value Reference Range Comments WHITE BLOOD CELL COUNT (BEAKER) (test veah=224) 6.6 K/ L 4.0-10.0 RED BLOOD CELL COUNT (BEAKER) (test abpr=994) 3.93 M/ L 4.20-5.80 HEMOGLOBIN (BEAKER) (test qepn=945) 8.9 GM/DL 13.0-16.8 HEMATOCRIT (BEAKER) (test jwws=896) 28.3 % 40.0-50.0 MEAN CORPUSCULAR VOLUME (BEAKER) (test cusp=793) 71.9 fL 82.0-98.0 MEAN CORPUSCULAR HEMOGLOBIN (BEAKER) (test 22.5 pg 27.0-33.0 sbtt=502) MEAN CORPUSCULAR HEMOGLOBIN CONC (BEAKER) (test 31.3 GM/DL 32.0-36.0 zssb=290) RED CELL DISTRIBUTION WIDTH (BEAKER) (test 21.0 % 10.3-14.2 ufhm=597) PLATELET COUNT (BEAKER) (test lqln=778) 339 K/CU MM 150-430 MEAN PLATELET VOLUME (BEAKER) (test woek=127) 7.2 fL 6.5-10.5 NUCLEATED RED BLOOD CELLS (BEAKER) (test 0 /100 WBC 0-0 yiir=577) NEUTROPHILS RELATIVE PERCENT (BEAKER) (test 52 % vypi=608) LYMPHOCYTES RELATIVE PERCENT (BEAKER) (test 32 % fywc=609) MONOCYTES RELATIVE PERCENT (BEAKER) (test 11 % pxwe=803) EOSINOPHILS RELATIVE PERCENT (BEAKER) (test 4 % pneq=882) BASOPHILS RELATIVE PERCENT (BEAKER) (test 0 % rjsf=848) NEUTROPHILS ABSOLUTE COUNT (BEAKER) (test 3.40 K/ L 1.80-8.00 ebpx=252) LYMPHOCYTES ABSOLUTE COUNT (BEAKER) (test 2.10 K/ L 1.48-4.50 ybty=670) MONOCYTES ABSOLUTE COUNT (BEAKER) (test 0.70 K/ L 0.00-1.30 shnn=288) EOSINOPHILS ABSOLUTE COUNT (BEAKER) (test 0.30 K/ L 0.00-0.50 nnpd=346) BASOPHILS ABSOLUTE COUNT (BEAKER) (test 0.00 K/ L 0.00-0.20 dmer=085) (MANUAL DIFFERENTIAL)2018-04-19 10:34:00 Test Item Value Reference Range Comments TOTAL COUNTED (BEAKER) (test ltvi=7354) WBC MORPHOLOGY (BEAKER) (test zzwm=108) Normal PLT MORPHOLOGY (BEAKER) (test jxvy=016) Normal ANISOCYTOSIS (BEAKER) (test xfxa=374) 3+ many HYPOCHROMIA (BEAKER) (test dvyx=100) 2+ moderate MICROCYTES (BEAKER) (test vxav=250) 1+ few TROPONIN [id number] 09:42:00 Test Item Value Reference Range Comments TROPONIN I (BEAKER) (test xlqk=165) < ng/mL 0.00-0.15 Troponin I (TnI) levels [...] acute neurological disease, and persistent tachyarrhythmia.BASIC METABOLIC [id number] 09:34:00 Test Item Value Reference Range Comments SODIUM (BEAKER) (test 140 meq/L 135-148 ovji=465) POTASSIUM (BEAKER) (test 3.8 meq/L 3.6-5.5 nnyd=627) CHLORIDE (BEAKER) (test 107 meq/L 98-106 ipup=965) CO2 (BEAKER) (test 25 meq/L 20-29 abdt=543) BLOOD UREA NITROGEN 12 mg/dL 10-26 (BEAKER) (test bxqb=665) CREATININE (BEAKER) (test 0.83 mg/dL 0.50-1.20 zcdx=077) GLUCOSE RANDOM (BEAKER) 106 mg/dL 70-110 (test qqlu=059) CALCIUM (BEAKER) (test 9.1 mg/dL 8.5-10.5 valg=914) EGFR (BEAKER) (test 99 mL/min/1.73 sq m ESTIMATED GFR IS NOT iahi=7656) ACCURATE CREATININE CLEARANCE IN PREDICTING GLOMERULAR FILTRATION RATE. ESTIMATED GFR IS NOT APPLICABLE FOR DIALYSIS PATIENTS. PT/[id number] 05:06:00 Test Item Value Reference Range Comments PROTIME (BEAKER) (test hdqi=344) 10.0 sec 9.3-12.0 INR (BEAKER) (test dxbg=528) 0.9 <=5.9 PARTIAL THROMBOPLASTIN TIME (BEAKER) (test 26.5 sec 23.0-35.0 ydrk=419) RECOMMENDED COUMADIN/WARFARIN INR THERAPY RANGESSTANDARD DOSE: 2.0 - 3.0 Includes: PROPHYLAXIS forvenous thrombosis, systemic embolization; TREATMENT for venous thrombosis and/or pulmonary embolus.HIGH RISK: Target INR is 2.5-3.5 for patients with mechanical heart valves.Final Information (Auto Output)Final Information (Auto Output)Final Information (Auto Output)TROPONIN [id number] 20: 04:00 Test Item Value Reference Range Comments TROPONIN I (BEAKER) (test qgwc=456) < ng/mL 0.00-0.15 Troponin I (TnI) levels [...] failure, acidosis, acute neurological disease, and persistent tachyarrhythmia.[id number] 20:01:00 Test Item Value Reference Range Comments HOMOCYSTEINE (BEAKER) (test ywlw=345) 6.1 umol/L 5.1-15.4 VITAMIN B12 AND [id number] 18:10:00 Test Item Value Reference Range Comments VITAMIN B12 (BEAKER) (test dyjp=409) 497 pg/mL 213-816 FOLATE (BEAKER) (test aawn=720) 6.5 ng/mL >=7.0 IRON, TIBC, % SAT. (WITHOUT FERRITIN)2018-04-18 17:43:00 Test Item Value Reference Range Comments IRON (BEAKER) (test tzpr=849) 16 ug/dL 40-160 TOTAL IRON BINDING CAPACITY (BEAKER) (test 468 ug/dL 250-450 sqpz=990) IRON % SATURATION (2) (BEAKER) (test syvl=2651) 3 % 20-55 [id number] 13:31:00 Test Item Value Reference Range Comments PROTIME (BEAKER) (test awgx=968) 10.9 sec 9.3-12.0 INR (BEAKER) (test cdab=650) 1.0 <=5.9 PARTIAL THROMBOPLASTIN TIME (BEAKER) (test 131.9 sec 23.0-35.0 tfli=223) RECOMMENDED COUMADIN/WARFARIN INR THERAPY RANGESSTANDARD DOSE: 2.0 - 3.0 Includes: PROPHYLAXIS forvenous thrombosis, systemic embolization; TREATMENT for venous thrombosis and/or pulmonary embolus.HIGH RISK: Target INR is 2.5-3.5 for patients with mechanical heart valves.Final Information (Auto Output)Final Information (Auto Output)Final Information (Auto Output)PATIENT ON BLOOD THINNER PER [facility] WRIGHT [id number] DOPPLER LEGS, [id number] 12:31: 00Reason for exam:->PEFINAL REPORT History: Lower [...] in the bilateral lower extremities. Signed: Tremayne Tapiaort Verified Date/Time: 04/18/2018 12:31:58 Reading Location: [facility] Radiology Reading Room Electronically signed by: TREMAYNE TAPIA M.D. on 06/2018 12:31 [id number] 12:28:00 Test Item Value Reference Range Comments FERRITIN (BEAKER) (test vjgq=222) 8 ng/mL 22-322 LACTATE DEHYDROGENASE (LDH)2018-04-18 11:27:00 Test Item Value Reference Range Comments LACTATE DEHYDROGENASE (BEAKER) (test mkvs=128) 174 U/L 107-206 RETICULOCYTE [id number] 11:11:00 Test Item Value Reference Range Comments RETICULOCYTE COUNT PCT (BEAKER) (test clsn=329) 1.5 % 0.4-2.9 TROPONIN [id number] 06:08:00 Test Item Value Reference Range Comments TROPONIN I (BEAKER) (test canb=698) < ng/mL 0.00-0.15 Troponin I (TnI) levels [...] acute neurological disease, and persistent tachyarrhythmia.BASIC METABOLIC [id number] 06:00:00 Test Item Value Reference Range Comments SODIUM (BEAKER) (test 138 meq/L 135-148 stvp=625) POTASSIUM (BEAKER) (test 3.7 meq/L 3.6-5.5 tmck=306) CHLORIDE (BEAKER) (test 107 meq/L 98-106 smqx=746) CO2 (BEAKER) (test 24 meq/L 20-29 hbta=019) BLOOD UREA NITROGEN 8 mg/dL 10-26 (BEAKER) (test mtfs=966) CREATININE (BEAKER) (test 0.84 mg/dL 0.50-1.20 lsmk=661) GLUCOSE RANDOM (BEAKER) 86 mg/dL 70-110 (test suom=305) CALCIUM (BEAKER) (test 8.2 mg/dL 8.5-10.5 hyot=043) EGFR (BEAKER) (test 98 mL/min/1.73 sq m ESTIMATED GFR IS NOT nqbo=3113) ACCURATE CREATININE CLEARANCE IN PREDICTING GLOMERULAR FILTRATION RATE. ESTIMATED GFR IS NOT APPLICABLE FOR DIALYSIS PATIENTS. [id number] 01:22:00 Test Item Value Reference Range Comments PARTIAL THROMBOPLASTIN TIME (BEAKER) (test 23.3 seconds 23.0-35.0 gkuv=065) CBC (HEMOGRAM ONLY)2018-04-18 01:12:00 Test Item Value Reference Range Comments WHITE BLOOD CELL COUNT (BEAKER) (test xiev=064) 7.5 K/ L 4.0-10.0 RED BLOOD CELL COUNT (BEAKER) (test pxcd=136) 3.77 M/ L 4.20-5.80 HEMOGLOBIN (BEAKER) (test cpcv=102) 8.0 GM/DL 13.0-16.8 HEMATOCRIT (BEAKER) (test jltb=429) 26.3 % 40.0-50.0 MEAN CORPUSCULAR VOLUME (BEAKER) (test kafh=411) 69.7 fL 82.0-98.0 MEAN CORPUSCULAR HEMOGLOBIN (BEAKER) (test 21.2 pg 27.0-33.0 dbzt=371) MEAN CORPUSCULAR HEMOGLOBIN CONC (BEAKER) (test 30.4 GM/DL 32.0-36.0 mtsu=951) RED CELL DISTRIBUTION WIDTH (BEAKER) (test 19.2 % 10.3-14.2 vwxf=484) PLATELET COUNT (BEAKER) (test iiov=194) 395 K/CU MM 150-430 MEAN PLATELET VOLUME (BEAKER) (test ovmv=481) 7.6 fL 6.5-10.5 CT, CHEST WITH IV CONTRAST- PE TEST [id number] 23:21:00Reason for exam:-& gt;CHEST PAINWhat is the [...] MDReport Verified Date/Time: 04/17/2018 23:21:52 Reading Location: [address] Reading Room Electronically signed by: ERON CHAUHAN M.D. on 05/2018 11:21 PMCREATINE KINASE (CK), TOTAL AND [id number] 22:25:00 Test Item Value Reference Range Comments CREATINE KINASE TOTAL (BEAKER) (test nmmq=498) 87 U/L 40-250 CREATINE KINASE-MB (BEAKER) (test lywl=025) 1.1 ng/mL 0.0-4.9 CREATINE KINASE-MB INDEX (BEAKER) (test mgty=444) 1.3 % CK-MB Reference Range:<5 Normal5-10 Borderline>10 AbnormalTSH/FREE T4 IF [id number] 22:07:00 Test Item Value Reference Range Comments THYROID STIMULATING HORMONE (BEAKER) (test 0.71 uIU/mL 0.35-5.50 sybd=772) B-TYPE NATRIURETIC FACTOR (BNP)2018-04-17 21:44:00 Test Item Value Reference Range Comments B-TYPE NATRIURETIC PEPTIDE (BEAKER) (test ppqz=425) 8 pg/mL 0-100 TROPONIN [id number] 21:43:00 Test Item Value Reference Range Comments TROPONIN I (BEAKER) (test dlul=985) < ng/mL 0.00-0.15 Troponin I (TnI) levels [...] acute neurological disease, and persistent tachyarrhythmia.BASIC METABOLIC [id number] 21:39:00 Test Item Value Reference Range Comments SODIUM (BEAKER) (test 140 meq/L 135-148 zqqe=705) POTASSIUM (BEAKER) (test 3.6 meq/L 3.6-5.5 qcpo=520) CHLORIDE (BEAKER) (test 106 meq/L 98-106 omwl=460) CO2 (BEAKER) (test 21 meq/L 20-29 refo=424) BLOOD UREA NITROGEN 7 mg/dL 10-26 (BEAKER) (test xnzf=160) CREATININE (BEAKER) (test 1.00 mg/dL 0.50-1.20 agqo=429) GLUCOSE RANDOM (BEAKER) 140 mg/dL 70-110 (test zlrv=290) CALCIUM (BEAKER) (test 9.1 mg/dL 8.5-10.5 nloy=905) EGFR (BEAKER) (test 80 mL/min/1.73 sq m ESTIMATED GFR IS NOT zjxp=7150) ACCURATE CREATININE CLEARANCE IN PREDICTING GLOMERULAR FILTRATION RATE. ESTIMATED GFR IS NOT APPLICABLE FOR DIALYSIS PATIENTS. PROTHROMBIN TIME/[id number] 21:28:00 Test Item Value Reference Range Comments PROTIME (BEAKER) (test rxjv=570) 10.1 sec 9.3-12.0 INR (BEAKER) (test nxld=805) 0.9 <=5.9 RECOMMENDED COUMADIN/WARFARIN INR THERAPY RANGESSTANDARD DOSE: 2.0 - 3.0 Includes: PROPHYLAXIS forvenous thrombosis, systemic embolization; TREATMENT for venous thrombosis and/or pulmonary embolus.HIGH RISK: Target INR is 2.5-3.5 for patients with mechanical heart valves.Final Information (Auto Output)Final Information (Auto Output)CBC W/PLT COUNT & AUTO [id number] 21:25 :00 Test Item Value Reference Range Comments WHITE BLOOD CELL COUNT (BEAKER) (test odlo=381) 5.7 K/ L 4.0-10.0 RED BLOOD CELL COUNT (BEAKER) (test xmyc=351) 3.76 M/ L 4.20-5.80 HEMOGLOBIN (BEAKER) (test lwmy=882) 7.9 GM/DL 13.0-16.8 HEMATOCRIT (BEAKER) (test hdvl=532) 25.9 % 40.0-50.0 MEAN CORPUSCULAR VOLUME (BEAKER) (test jroc=919) 69.0 fL 82.0-98.0 MEAN CORPUSCULAR HEMOGLOBIN (BEAKER) (test 21.0 pg 27.0-33.0 envz=509) MEAN CORPUSCULAR HEMOGLOBIN CONC (BEAKER) (test 30.4 GM/DL 32.0-36.0 odzg=332) RED CELL DISTRIBUTION WIDTH (BEAKER) (test 20.9 % 10.3-14.2 pzma=224) PLATELET COUNT (BEAKER) (test kpcv=911) 411 K/CU MM 150-430 MEAN PLATELET VOLUME (BEAKER) (test euoe=308) 6.9 fL 6.5-10.5 NUCLEATED RED BLOOD CELLS (BEAKER) (test 0 /100 WBC 0-0 yrkn=215) NEUTROPHILS RELATIVE PERCENT (BEAKER) (test 49 % ljdp=683) LYMPHOCYTES RELATIVE PERCENT (BEAKER) (test 35 % hlrd=979) MONOCYTES RELATIVE PERCENT (BEAKER) (test 12 % dmky=702) EOSINOPHILS RELATIVE PERCENT (BEAKER) (test 4 % yhlw=728) BASOPHILS RELATIVE PERCENT (BEAKER) (test 0 % pcbq=198) NEUTROPHILS ABSOLUTE COUNT (BEAKER) (test 2.80 K/ L 1.80-8.00 nkqh=571) LYMPHOCYTES ABSOLUTE COUNT (BEAKER) (test 2.00 K/ L 1.48-4.50 vdmd=236) MONOCYTES ABSOLUTE COUNT (BEAKER) (test 0.70 K/ L 0.00-1.30 zxpw=945) EOSINOPHILS ABSOLUTE COUNT (BEAKER) (test 0.20 K/ L 0.00-0.50 krqq=641) BASOPHILS ABSOLUTE COUNT (BEAKER) (test 0.00 K/ L 0.00-0.20 gfkm=175) ERYTHROCYTE SED [id number] 22:37:00 Test Item Value Reference Range Comments [...] old=0-20 mm/hr Males 50-999 years old=0-25 mm/hr [id number] 22:06:00 Test Item Value Reference Range Comments [...] mL/min/1.73m\\S\\2 EGFR if Non- >60 Estimated Glomerular Swedish (test mL/min/1.73m\\S\\2 Filtration Rate (eGFR) code=EGFRNA) Reference [...] chronic kidney failure. XR CHEST AP/PA 1 [id number] 22:01:15Procedure: AP View ChestOrder date: 2017 9:16 PMOrdering Provider: ILIANA Robertsoninical Indication: chest pain, Chest painComparison: January 29, 2018Findings:Stable right-sided Port-A- Cath.Cardiomediastinal silhouette is within normal limits.The lungs are clear. No large pleural effusions or pneumothorax. Osseousstructures are nonacute.No evidence of active tuberculosis.Impression:No acute cardiopulmonary process.This final report was electronically signed by Dr Cesar Beach MD 04/159:54 PMDictated By: CESAR BEACHDate: 04/15/2018 22:01D-DIMER [id number] 21:53:00 Test Item Value Reference Range Comments [...] probability of thromboembolic disease. CBC WITH AUTO [id number] 21:43:00 Test Item Value Reference Range Comments [...] 0.0-0.4 AUTO DIFFCBC W/PLT COUNT & AUTO [id number] 08:53:00 Test Item Value Reference Range Comments WHITE BLOOD CELL COUNT (BEAKER) (test wgtm=701) 6.9 K/ L 4.0-10.0 RED BLOOD CELL COUNT (BEAKER) (test ibna=482) 3.56 M/ L 4.20-5.80 HEMOGLOBIN (BEAKER) (test bprr=083) 8.5 GM/DL 13.0-16.8 HEMATOCRIT (BEAKER) (test coux=410) 26.5 % 40.0-50.0 MEAN CORPUSCULAR VOLUME (BEAKER) (test xlsf=961) 74.5 fL 82.0-98.0 MEAN CORPUSCULAR HEMOGLOBIN (BEAKER) (test 23.8 pg 27.0-33.0 abty=934) MEAN CORPUSCULAR HEMOGLOBIN CONC (BEAKER) (test 31.9 GM/DL 32.0-36.0 fjzc=679) RED CELL DISTRIBUTION WIDTH (BEAKER) (test 20.1 % 10.3-14.2 bqkp=690) PLATELET COUNT (BEAKER) (test mivk=344) 372 K/CU MM 150-430 MEAN PLATELET VOLUME (BEAKER) (test lluf=821) 6.8 fL 6.5-10.5 NUCLEATED RED BLOOD CELLS (BEAKER) (test 0 /100 WBC 0-0 qkih=247) NEUTROPHILS RELATIVE PERCENT (BEAKER) (test 55 % cgra=383) LYMPHOCYTES RELATIVE PERCENT (BEAKER) (test 30 % gxch=666) MONOCYTES RELATIVE PERCENT (BEAKER) (test 13 % xret=524) EOSINOPHILS RELATIVE PERCENT (BEAKER) (test 2 % irmn=387) BASOPHILS RELATIVE PERCENT (BEAKER) (test 0 % afgl=667) NEUTROPHILS ABSOLUTE COUNT (BEAKER) (test 3.80 K/ L 1.80-8.00 fanm=920) LYMPHOCYTES ABSOLUTE COUNT (BEAKER) (test 2.10 K/ L 1.48-4.50 dcrw=233) MONOCYTES ABSOLUTE COUNT (BEAKER) (test 0.90 K/ L 0.00-1.30 eqtp=740) EOSINOPHILS ABSOLUTE COUNT (BEAKER) (test 0.10 K/ L 0.00-0.50 botp=610) BASOPHILS ABSOLUTE COUNT (BEAKER) (test 0.00 K/ L 0.00-0.20 exqf=002) (MANUAL DIFFERENTIAL)2018-02-01 08:53:00 Test Item Value Reference Range Comments TOTAL COUNTED (BEAKER) (test qpvi=2814) WBC MORPHOLOGY (BEAKER) (test lieg=747) Normal PLT MORPHOLOGY (BEAKER) (test fzkc=138) Normal ANISOCYTOSIS (BEAKER) (test yjen=454) 2+ moderate HYPOCHROMIA (BEAKER) (test lylb=440) 3+ many MICROCYTES (BEAKER) (test icgs=920) 1+ few TROPONIN [id number] 07:05:00 Test Item Value Reference Range Comments TROPONIN I (BEAKER) (test tppm=245) < ng/mL 0.00-0.15 Troponin I (TnI) levels [...] acute neurological disease, and persistent tachyarrhythmia.BASIC METABOLIC [id number] 06:55:00 Test Item Value Reference Range Comments SODIUM (BEAKER) (test 140 meq/L 135-148 pncs=778) POTASSIUM (BEAKER) (test 3.8 meq/L 3.6-5.5 mhxa=509) CHLORIDE (BEAKER) (test 107 meq/L 98-106 esom=643) CO2 (BEAKER) (test 25 meq/L 20-29 buqs=378) BLOOD UREA NITROGEN 11 mg/dL 10-26 (BEAKER) (test vbaq=905) CREATININE (BEAKER) (test 0.80 mg/dL 0.50-1.20 kaqv=579) GLUCOSE RANDOM (BEAKER) 91 mg/dL 70-110 (test gell=034) CALCIUM (BEAKER) (test 8.6 mg/dL 8.5-10.5 nzzf=703) EGFR (BEAKER) (test 104 mL/min/1.73 sq m ESTIMATED GFR IS NOT kwdz=9541) ACCURATE CREATININE CLEARANCE IN PREDICTING GLOMERULAR FILTRATION RATE. ESTIMATED GFR IS NOT APPLICABLE FOR DIALYSIS PATIENTS. [id number] 06:49:00 Test Item Value Reference Range Comments MAGNESIUM (BEAKER) (test asbm=062) 2.4 mg/dL 1.5-3.0 TROPONIN [id number] 00:03:00 Test Item Value Reference Range Comments TROPONIN I (BEAKER) (test iqvu=640) < ng/mL 0.00-0.15 Troponin I (TnI) levels [...] Range Comments B-TYPE NATRIURETIC PEPTIDE (BEAKER) (test dhlp=043) 5 pg/mL 0-100 LIPID [id number] 23:57:00 Test Item Value Reference Range Comments TRIGLYCERIDES (BEAKER) (test uxuu=566) 53 mg/dL CHOLESTEROL (BEAKER) (test ctgm=307) 183 mg/dL HDL CHOLESTEROL (BEAKER) (test irzl=997) 62 mg/dL LDL CHOLESTEROL CALCULATED (BEAKER) (test 110 mg/dL shhu=114) Triglyceride Reference Range: Low Risk <150 Borderline 150- 199 High Risk 200-499 Very High Risk >=500Cholesterol Reference Range: Low Risk <200 Borderline 200-239 High Risk > 240HDL Cholesterol Reference Range: Low Risk >=60 High Risk <40LDL Cholesterol Reference Range: Optimal <100 Near Optimal 100-129 Borderline 130-159 High 160-189 Very High >=190ED2 CT ANGIO CHEST W [id number] 11:04:2220 g Cathlon Above the Antecubital or [...] AMDictated By: CESAR BEACHDate: 01/29/2018 11:04ED2 TROPONIN-I [id number] 10:56:00 Test Item Value Reference Range Comments Troponin-I (test 0.000 ng/ml 0.000-0.034 The 99th Percentile URL is 0.034 code=TROP) ng/mL. The [employer] Society of Cardiology/[place] [employer] (ESC/ACC) and the National [...] 24 hours after the clinical event. ED2 [id number] 10:51:00 Test Item Value Reference Range Comments [...] Protein (test code=TP) 6.9 gm/dl 6.4-8.1 ED2 [id number] 10:51:00 Test Item Value Reference Range Comments Pro-BNP(B-Peptide) (test <15 0-125 THE METHODOLOGY FOR DETECTION OF code=PROBNP) B-NATRIURETIC PEPTIDE HAS BEEN CHANGED TO "NT pro-BNP". THE NORMAL RANGES HAVE CHANGED. PLEASE NOTE THAT RANGES ARE DEFINED BY THE AGE OF THE PATIENT. (<75 years old=0-125 pg/ml 75years and older=0-450pg/ml). VALUES ARE NOT INTERCHANGEABLE BETWEEN METHODS. 10-18-2006 ED2 [id number] 10:50:00 Test Item Value Reference Range Comments [...] fL 8.0-11.0 ED2 XR CHEST 2 PA [id number] 09:49:15Procedure: ED2 XR CHEST 2 PA LATERALOrder date: 01/29/2018 9:18 AMOrdering Provider: ITALIA RITTERMONSClinical Indication: CHEST PAIN: Pain-ChestComparison: November 14, 2017Findings:Stable yubze-zkqtgYvrf-N-Cath.Cardiomediastinal silhouette is within normal limits.The lungs are clear.No pleural effusion or pneumothorax. Osseous structures are nonacute.No evidence of active tuberculosis.Impression:Stable and nonacute two- view chest.This final report was electronically signed by Dr Cesar Beach MD 9:43 AMDictated By: CESAR BEACHDate: 01/29/2018 09:49CT, CHEST WITH IV CONTRAST- PE TEST [id number] 20:29:00FINAL REPORT HISTORY: chest pain COMPARISON : [...] MDReport Verified Date/Time: 01/24/2018 20:29:12 Reading Location: [address] Consult Reading Room 08: 29 [facility]BAS[facility] MET[facility] [id number] 17:45:00 Test Item Value Reference Range Comments SODIUM (BEAKER) (test 138 meq/L 135-148 qutb=125) POTASSIUM (BEAKER) (test 3.7 meq/L 3.6-5.5 grkn=324) CHLORIDE (BEAKER) (test 104 meq/L 98-106 bocb=982) CO2 (BEAKER) (test 24 meq/L 20-29 nvmi=183) BLOOD UREA NITROGEN 18 mg/dL 10-26 (BEAKER) (test gnix=989) CREATININE (BEAKER) (test 0.90 mg/dL 0.50-1.20 kcqk=615) GLUCOSE RANDOM (BEAKER) 119 mg/dL 70-110 (test qqir=522) CALCIUM (BEAKER) (test 8.5 mg/dL 8.5-10.5 tscn=619) EGFR (BEAKER) (test 90 mL/min/1.73 sq m ESTIMATED GFR IS NOT ydlz=0915) ACCURATE CREATININE CLEARANCE IN PREDICTING GLOMERULAR FILTRATION RATE. ESTIMATED GFR IS NOT APPLICABLE FOR DIALYSIS PATIENTS. TROPONIN [id number] 13:54:00 Test Item Value Reference Range Comments TROPONIN I (BEAKER) (test lsns=741) < ng/mL 0.00-0.15 Troponin I (TnI) levels [...] and persistent tachyarrhythmia.CREATINE KINASE (CK), TOTAL AND [id number] 13:53:00 Test Item Value Reference Range Comments CREATINE KINASE TOTAL (BEAKER) (test bwsc=662) 53 U/L 40-250 CREATINE KINASE-MB (BEAKER) (test uoqq=790) 0.7 ng/mL 0.0-4.9 CREATINE KINASE-MB INDEX (BEAKER) (test aijr=683) 1.3 % CK-MB Reference Range:<5 Normal5-10 Borderline>10 [...] CHEST WITH CONTRAST, PE PROTOCOL: Location code: [id number] HISTORY: [id number]: Chest pain, shortness of breathCOMPARISON: 10/14/16, 03/03/16, [...] 1.2 ng/mL <=4.2 COMPREHENSIVE METABOLIC KANG *GP* [id number] 14:23:00 Test Item Value Reference Range Comments [...] VIEW*GP*2017-12-16 14:20:51Portable AP chest, 1 viewLocation Code: [id number] HISTORY: [id number]: Chest painCOMPARISON: 12/22/16COMMENT: The lungs are clear and well inflated. The costophrenic angles are sharp. Thecardiomediastinal silhouette is unremarkable. The bones are intact. Right fmwvoXqov-Z-Ohez tip overlies the superiorvena cava, unchanged.IMPRESSION: Stable [...] (test code=GMID%) 5.8 % 0.0-10.0 ED2 TROPONIN-I [id number] 14:21:00 Test Item Value Reference Range Comments Troponin-I (test 0.000 ng/ml 0.000-0.034 The 99th Percentile URL is 0.034 code=TROP) ng/mL. The Joint Society of Cardiology/[employer] [employer] (ESC/ACC) and the National [...] clinical event. ED2 XR CHEST 2 PA [id number] 12:47:27Procedures: ED2 XR CHEST 2 PA LATERALExam [...] FRYEDate: 11/14/2017 12:47ED2 CT ANGIO CHEST W [id number] 12:46:17Procedures: ED2 CT ANGIO CHEST W CONTRASTExam [...] PMDictated By: CATHLEEN FRYEDate: 11/14/2017 12:46ED2 TROPONIN-I [id number] 11:38:00 Test Item Value Reference Range Comments Troponin-I (test 0.000 ng/ml 0.000-0.034 The 99th Percentile URL is 0.034 code=TROP) ng/mL. The Joint Society of Cardiology/[place] [employer] (ESC/ACC) and the National [...] 24 hours after the clinical event. ED2 [id number] 11:38:00 Test Item Value Reference Range Comments Pro-BNP(B-Peptide) (test <15 0-125 THE METHODOLOGY FOR DETECTION OF code=PROBNP) B-NATRIURETIC PEPTIDE HAS BEEN CHANGED TO "NT pro-BNP". THE NORMAL RANGES HAVE CHANGED. PLEASE NOTE THAT RANGES ARE DEFINED BY THE AGE OF THE PATIENT. (<75 years old=0-125 pg/ml 75years and older=0-450pg/ml). VALUES ARE NOT INTERCHANGEABLE BETWEEN METHODS. 10-18-2006 ED2 [id number] 11:31:00 Test Item Value Reference Range Comments Sodium (test code=NA) 142 mmol/l 128-145 Potassium (test code=K) 3.5 mmol/l 3.6-5.1 CO2 (test code=CO2) 24 mmol/l 18-33 Chloride (test code=CL) 105 mmol/l 98-108 Glucose (test code=GLU) 196 mg/dl 73-118 Calcium (test code=CALC) 8.3 mg/dl 8.0-10.3 BUN (test code=BUN) 10 mg/dl 7-22 Creatinine (test code=CREA) 0.9 mg/dl 0.6-1.2 ED2 [id number] 11:21:00 Test Item Value Reference Range Comments [...] MPV (test code=MPV) 7.3 fL 8.0-11.0 TROPONIN [id number] 07:00:00 Test Item Value Reference Range Comments TROPONIN I (BEAKER) (test tlfk=181) < ng/mL 0.00-0.15 Troponin I (TnI) levels [...] acidosis, acute neurological disease, and persistent tachyarrhythmia.TROPONIN [id number] 00:40:00 Test Item Value Reference Range Comments TROPONIN I (BEAKER) (test iixr=980) < ng/mL 0.00-0.15 Troponin I (TnI) levels [...] acidosis, acute neurological disease, and persistent tachyarrhythmia.HEMOGLOBIN [id number] 19:40:00 Test Item Value Reference Range Comments HEMOGLOBIN A1C (BEAKER) (test mmps=617) 5.3 % 4.3-6.1 TROPONIN [id number] 18:43:00 Test Item Value Reference Range Comments TROPONIN I (BEAKER) (test ugjc=968) < ng/mL 0.00-0.15 Troponin I (TnI) levels [...] acute neurological disease, and persistent tachyarrhythmia.BASIC METABOLIC [id number] 18:24:00 Test Item Value Reference Range Comments SODIUM (BEAKER) (test 139 meq/L 135-148 wdcf=483) POTASSIUM (BEAKER) (test 3.5 meq/L 3.6-5.5 rqfq=601) CHLORIDE (BEAKER) (test 105 meq/L 98-106 kmrb=592) CO2 (BEAKER) (test 26 meq/L 20-29 rwux=773) BLOOD UREA NITROGEN 15 mg/dL 10-26 (BEAKER) (test defr=413) CREATININE (BEAKER) (test 1.00 mg/dL 0.50-1.20 iagh=064) GLUCOSE RANDOM (BEAKER) 94 mg/dL 70-110 (test rutu=013) CALCIUM (BEAKER) (test 8.6 mg/dL 8.5-10.5 ysxq=097) EGFR (BEAKER) (test 80 mL/min/1.73 sq m ESTIMATED GFR IS NOT xity=7712) ACCURATE CREATININE CLEARANCE IN PREDICTING GLOMERULAR FILTRATION RATE. ESTIMATED GFR IS NOT APPLICABLE FOR DIALYSIS PATIENTS. CBC W/PLT COUNT & AUTO [id number] 18:01:00 Test Item Value Reference Range Comments WHITE BLOOD CELL COUNT (BEAKER) (test xjld=960) 8.5 K/ L 4.0-10.0 RED BLOOD CELL COUNT (BEAKER) (test yrkb=104) 3.95 M/ L 4.20-5.80 HEMOGLOBIN (BEAKER) (test timw=678) 11.4 GM/DL 13.0-16.8 HEMATOCRIT (BEAKER) (test pajq=093) 34.6 % 40.0-50.0 MEAN CORPUSCULAR VOLUME (BEAKER) (test xayp=762) 87.4 fL 82.0-98.0 MEAN CORPUSCULAR HEMOGLOBIN (BEAKER) (test 28.9 pg 27.0-33.0 aukm=746) MEAN CORPUSCULAR HEMOGLOBIN CONC (BEAKER) (test 33.0 GM/DL 32.0-36.0 nhbd=924) RED CELL DISTRIBUTION WIDTH (BEAKER) (test 15.7 % 10.3-14.2 kozo=711) PLATELET COUNT (BEAKER) (test ejtd=079) 368 K/CU MM 150-430 MEAN PLATELET VOLUME (BEAKER) (test fprj=335) 7.1 fL 6.5-10.5 NUCLEATED RED BLOOD CELLS (BEAKER) (test 0 /100 WBC 0-0 thuj=467) NEUTROPHILS RELATIVE PERCENT (BEAKER) (test 50 % cfhe=643) LYMPHOCYTES RELATIVE PERCENT (BEAKER) (test 32 % xrrf=539) MONOCYTES RELATIVE PERCENT (BEAKER) (test 15 % bzmi=279) EOSINOPHILS RELATIVE PERCENT (BEAKER) (test 2 % uvew=526) BASOPHILS RELATIVE PERCENT (BEAKER) (test 0 % dmzz=488) NEUTROPHILS ABSOLUTE COUNT (BEAKER) (test 4.30 K/ L 1.80-8.00 drrn=843) LYMPHOCYTES ABSOLUTE COUNT (BEAKER) (test 2.70 K/ L 1.48-4.50 wkwj=515) MONOCYTES ABSOLUTE COUNT (BEAKER) (test 1.30 K/ L 0.00-1.30 fhsj=196) EOSINOPHILS ABSOLUTE COUNT (BEAKER) (test 0.20 K/ L 0.00-0.50 znny=327) BASOPHILS ABSOLUTE COUNT (BEAKER) (test 0.00 K/ L 0.00-0.20 jlen=151) CREATINE KINASE (CK), TOTAL AND [id number] 12:25:00 Test Item Value Reference Range Comments CREATINE KINASE TOTAL (BEAKER) (test jwcl=847) 72 U/L 40-250 CREATINE KINASE-MB (BEAKER) (test jaix=038) 0.9 ng/mL 0.0-4.9 CREATINE KINASE-MB INDEX (BEAKER) (test boqz=973) 1.3 % CK-MB Reference Range:<5 Normal5-10 Borderline>10 AbnormalTROPONIN [id number] 12:25:00 Test Item Value Reference Range Comments TROPONIN I (BEAKER) (test gppw=051) < ng/mL 0.00-0.15 Troponin I (TnI) levels [...] Comments NEUTROPHILS - REL (DIFF) (BEAKER) (test juxm=5122) 38 % LYMPHOCYTES - REL (DIFF) (BEAKER) (test claj=5578) 46 % MONOCYTES - REL (DIFF) (BEAKER) (test bumt=1405) 11 % EOSINOPHILS - REL (DIFF) (BEAKER) (test lwpb=2770) 5 % NEUTROPHILS - ABS (DIFF) (BEAKER) (test oesn=5926) 2.13 K/ L 1.80-8.00 LYMPHOCYTES - ABS (DIFF) (BEAKER) (test nzhd=6440) 2.58 K/ L 1.48-4.50 MONOCYTES - ABS (DIFF) (BEAKER) (test ndsz=3754) 0.62 K/ L 0.00-1.30 EOSINOPHILS - ABS (DIFF) (BEAKER) (test dyrz=4767) 0.28 K/ L 0.00-0.50 TOTAL COUNTED (BEAKER) (test bthp=2011) 100 WBC MORPHOLOGY (BEAKER) (test jnso=093) Normal PLT MORPHOLOGY (BEAKER) (test rrds=657) Normal RBC MORPHOLOGY (BEAKER) (test krfr=490) Normal CBC W/PLT COUNT & AUTO [id number] 06:02:00 Test Item Value Reference Range Comments WHITE BLOOD CELL COUNT (BEAKER) (test slci=017) 5.6 K/ L 4.0-10.0 RED BLOOD CELL COUNT (BEAKER) (test lkys=831) 3.60 M/ L 4.20-5.80 HEMOGLOBIN (BEAKER) (test lkni=694) 10.6 GM/DL 13.0-16.8 HEMATOCRIT (BEAKER) (test mkag=239) 32.3 % 40.0-50.0 MEAN CORPUSCULAR VOLUME (BEAKER) (test lccn=335) 89.8 fL 82.0-98.0 MEAN CORPUSCULAR HEMOGLOBIN (BEAKER) (test 29.3 pg 27.0-33.0 qbkk=546) MEAN CORPUSCULAR HEMOGLOBIN CONC (BEAKER) (test 32.7 GM/DL 32.0-36.0 zldx=352) RED CELL DISTRIBUTION WIDTH (BEAKER) (test 15.9 % 10.3-14.2 abka=291) PLATELET COUNT (BEAKER) (test nlva=000) 312 K/CU MM 150-430 MEAN PLATELET VOLUME (BEAKER) (test bzth=264) 6.9 fL 6.5-10.5 NUCLEATED RED BLOOD CELLS (BEAKER) (test 0 /100 WBC 0-0 btjf=251) TROPONIN [id number] 05:22:00 Test Item Value Reference Range Comments TROPONIN I (BEAKER) (test ozio=062) < ng/mL 0.00-0.15 Troponin I (TnI) levels [...] and persistent tachyarrhythmia.CREATINE KINASE (CK), TOTAL AND [id number] 05:21:00 Test Item Value Reference Range Comments CREATINE KINASE TOTAL (BEAKER) (test rxoc=324) 71 U/L 40-250 CREATINE KINASE-MB (BEAKER) (test qfkd=098) 0.8 ng/mL 0.0-4.9 CREATINE KINASE-MB INDEX (BEAKER) (test cxcu=234) 1.1 % CK-MB Reference Range:<5 Normal5-10 Borderline>10 AbnormalCOMPREHENSIVE METABOLIC [id number] 05:14:00 Test Item Value Reference Range Comments TOTAL PROTEIN (BEAKER) 6.4 gm/dL 6.0-8.5 (test abzd=458) ALBUMIN (BEAKER) (test 3.7 g/dL 3.5-5.0 ouhf=0426) ALKALINE PHOSPHATASE 67 U/L 30-115 (BEAKER) (test xmgi=623) BILIRUBIN TOTAL (BEAKER) 0.3 mg/dL 0.1-1.2 (test ufmj=198) SODIUM (BEAKER) (test 141 meq/L 135-148 lnim=963) POTASSIUM (BEAKER) (test 3.7 meq/L 3.6-5.5 hdxj=718) CHLORIDE (BEAKER) (test 106 meq/L 98-106 knfi=210) CO2 (BEAKER) (test 26 meq/L 20-29 yzsc=252) BLOOD UREA NITROGEN 19 mg/dL 10-26 (BEAKER) (test aozb=294) CREATININE (BEAKER) (test 1.00 mg/dL 0.50-1.20 jcyw=644) GLUCOSE RANDOM (BEAKER) 104 mg/dL 70-110 (test rorw=654) CALCIUM (BEAKER) (test 9.0 mg/dL 8.5-10.5 xqyt=612) AST (SGOT) (BEAKER) (test 14 U/L 5-40 caje=360) ALT (SGPT) (BEAKER) (test 10 U/L 5-50 lqdw=615) EGFR (BEAKER) (test 80 mL/min/1.73 sq m ESTIMATED GFR IS NOT lwrm=8217) ACCURATE CREATININE CLEARANCE IN PREDICTING GLOMERULAR FILTRATION RATE. ESTIMATED GFR IS NOT APPLICABLE FOR DIALYSIS PATIENTS. LIPID [id number] 05:13:00 Test Item Value Reference Range Comments TRIGLYCERIDES (BEAKER) (test qeyv=435) 159 mg/dL CHOLESTEROL (BEAKER) (test zndr=896) 205 mg/dL HDL CHOLESTEROL (BEAKER) (test ixew=645) 62 mg/dL LDL CHOLESTEROL CALCULATED (BEAKER) (test 111 mg/dL npym=383) Triglyceride Reference Range: Low Risk <150 Borderline 150- 199 High Risk 200-499 Very High Risk >=500Cholesterol Reference Range: Low Risk <200 Borderline 200-239 High Risk > 240HDL Cholesterol Reference Range: Low Risk >=60 High Risk <40LDL Cholesterol Reference Range: Optimal <100 Near Optimal 100-129 Borderline 130-159 High 160-189 Very High >=190CREATINE KINASE (CK), TOTAL AND [id number] 23:03:00 Test Item Value Reference Range Comments CREATINE KINASE TOTAL (BEAKER) (test fkxt=476) 77 U/L 40-250 CREATINE KINASE-MB (BEAKER) (test waus=489) 0.9 ng/mL 0.0-4.9 CREATINE KINASE-MB INDEX (BEAKER) (test osgv=349) 1.2 % CK-MB Reference Range:<5 Normal5-10 Borderline>10 AbnormalTROPONIN [id number] 23:03:00 Test Item Value Reference Range Comments TROPONIN I (BEAKER) (test doix=422) < ng/mL 0.00-0.15 Troponin I (TnI) levels [...] 1 VIEW PORTABLE 2017-02-21 04:12:23CHEST AP viewLOCATION: [id number] INDICATION: Chest pain COMPARISON: March 14, 2017FINDINGS: [...] mg/dL 1.8-2.4 CREATINE KINASE (CK), TOTAL AND [id number] 08:12:00 Test Item Value Reference Range Comments CREATINE KINASE TOTAL (BEAKER) (test hawm=826) 91 U/L 40-250 CREATINE KINASE-MB (BEAKER) (test tagf=764) 1.0 ng/mL 0.0-4.9 CREATINE KINASE-MB INDEX (BEAKER) (test yslp=636) 1.1 % CK-MB Reference Range:<5 Normal5-10 Borderline>10 AbnormalTROPONIN [id number] 08:12:00 Test Item Value Reference Range Comments TROPONIN I (BEAKER) (test ptsd=926) < ng/mL 0.00-0.15 Troponin I (TnI) levels [...] and persistent tachyarrhythmia.CBC W/PLT COUNT & AUTO [id number] 07:57:00 Test Item Value Reference Range Comments WHITE BLOOD CELL COUNT (BEAKER) (test dbop=378) 7.7 K/ L 4.0-10.0 RED BLOOD CELL COUNT (BEAKER) (test hrtj=423) 3.82 M/ L 4.20-5.80 HEMOGLOBIN (BEAKER) (test jomg=610) 9.3 GM/DL 13.0-16.8 HEMATOCRIT (BEAKER) (test cxnr=057) 29.3 % 40.0-50.0 MEAN CORPUSCULAR VOLUME (BEAKER) (test ezhi=223) 76.6 fL 82.0-98.0 MEAN CORPUSCULAR HEMOGLOBIN (BEAKER) (test 24.3 pg 27.0-33.0 mefv=344) MEAN CORPUSCULAR HEMOGLOBIN CONC (BEAKER) (test 31.8 GM/DL 32.0-36.0 jpdr=145) RED CELL DISTRIBUTION WIDTH (BEAKER) (test 22.1 % 10.3-14.2 culm=763) PLATELET COUNT (BEAKER) (test fjyk=553) 341 K/CU MM 150-430 MEAN PLATELET VOLUME (BEAKER) (test ngdd=743) 7.2 fL 6.5-10.5 NUCLEATED RED BLOOD CELLS (BEAKER) (test 0 /100 WBC 0-0 hkgn=920) NEUTROPHILS RELATIVE PERCENT (BEAKER) (test 50 % zaeq=818) LYMPHOCYTES RELATIVE PERCENT (BEAKER) (test 34 % dmxj=647) MONOCYTES RELATIVE PERCENT (BEAKER) (test 14 % aatz=340) EOSINOPHILS RELATIVE PERCENT (BEAKER) (test 1 % rvgt=468) BASOPHILS RELATIVE PERCENT (BEAKER) (test 0 % jdvx=479) NEUTROPHILS ABSOLUTE COUNT (BEAKER) (test 3.90 K/ L 1.80-8.00 zcvc=013) LYMPHOCYTES ABSOLUTE COUNT (BEAKER) (test 2.60 K/ L 1.48-4.50 ipja=930) MONOCYTES ABSOLUTE COUNT (BEAKER) (test 1.10 K/ L 0.00-1.30 jvqq=444) EOSINOPHILS ABSOLUTE COUNT (BEAKER) (test 0.10 K/ L 0.00-0.50 mwgc=078) BASOPHILS ABSOLUTE COUNT (BEAKER) (test 0.00 K/ L 0.00-0.20 dsxc=960) (MANUAL DIFFERENTIAL)2017-02-09 07:57:00 Test Item Value Reference Range Comments TOTAL COUNTED (BEAKER) (test bray=2592) WBC MORPHOLOGY (BEAKER) (test rnto=735) Normal PLT MORPHOLOGY (BEAKER) (test ovtb=050) Normal ANISOCYTOSIS (BEAKER) (test hmek=714) 1+ few HYPOCHROMIA (BEAKER) (test ugex=688) 2+ moderate CREATINE KINASE (CK), TOTAL AND [id number] 06:53:00 Test Item Value Reference Range Comments CREATINE KINASE TOTAL (BEAKER) (test anbj=444) 116 U/L 40-250 CREATINE KINASE-MB (BEAKER) (test vuly=252) 1.1 ng/mL 0.0-4.9 CREATINE KINASE-MB INDEX (BEAKER) (test mtsk=213) 0.9 % CK-MB Reference Range:<5 Normal5-10 Borderline>10 AbnormalTROPONIN [id number] 06:53:00 Test Item Value Reference Range Comments TROPONIN I (BEAKER) (test otop=151) < ng/mL 0.00-0.15 Troponin I (TnI) levels [...] acute neurological disease, and persistent tachyarrhythmia.BASIC METABOLIC [id number] 06:45:00 Test Item Value Reference Range Comments SODIUM (BEAKER) (test 143 meq/L 135-148 muzg=310) POTASSIUM (BEAKER) (test 3.8 meq/L 3.6-5.5 ybuq=747) CHLORIDE (BEAKER) (test 107 meq/L 98-106 xcsz=400) CO2 (BEAKER) (test 26 meq/L 20-29 bwsp=223) BLOOD UREA NITROGEN 15 mg/dL 10-26 (BEAKER) (test txwu=692) CREATININE (BEAKER) (test 1.00 mg/dL 0.50-1.20 jhrb=912) GLUCOSE RANDOM (BEAKER) 106 mg/dL 70-110 (test qlzw=426) CALCIUM (BEAKER) (test 8.8 mg/dL 8.5-10.5 lgkt=007) EGFR (BEAKER) (test 80 mL/min/1.73 sq m ESTIMATED GFR IS NOT gdpb=0331) ACCURATE CREATININE CLEARANCE IN PREDICTING GLOMERULAR FILTRATION RATE. ESTIMATED GFR IS NOT APPLICABLE FOR DIALYSIS PATIENTS. TROPONIN [id number] 22:50:00 Test Item Value Reference Range Comments TROPONIN I (BEAKER) (test dxgk=919) < ng/mL 0.00-0.15 Troponin I (TnI) levels [...] and persistent tachyarrhythmia.CREATINE KINASE (CK), TOTAL AND [id number] 22:45:00 Test Item Value Reference Range Comments CREATINE KINASE TOTAL (BEAKER) (test lkfj=436) 100 U/L 40-250 CREATINE KINASE-MB (BEAKER) (test rihs=581) 1.0 ng/mL 0.0-4.9 CREATINE KINASE-MB INDEX (BEAKER) (test bvyk=803) 1.0 % CK-MB Reference Range:<5 Normal5-10 Borderline>10 AbnormalPROTHROMBIN TIME/[id number] 22:35:00 Test Item Value Reference Range Comments PROTIME (BEAKER) (test wpyv=307) 10.4 seconds 9.3-12.0 INR (BEAKER) (test autg=714) 1.0 <=5.9 RECOMMENDED COUMADIN/WARFARIN INR THERAPY RANGESSTANDARD DOSE: 2.0 - 3.0 Includes: PROPHYLAXIS forvenous thrombosis, systemic embolization; TREATMENT for venous thrombosis and/or pulmonary embolus.HIGH RISK: Target INR is 2.5-3.5 for patients with mechanical heart valves.[id number] 22:35:00 Test Item Value Reference Range Comments PARTIAL THROMBOPLASTIN TIME (BEAKER) (test 23.1 seconds 23.0-35.0 saiv=981) TROPONIN [id number] 15:08:00 Test Item Value Reference Range Comments TROPONIN I (BEAKER) (test tcba=220) < ng/mL 0.00-0.15 Troponin I (TnI) levels [...] and persistent tachyarrhythmia.CREATINE KINASE (CK), TOTAL AND [id number] 15:07:00 Test Item Value Reference Range Comments CREATINE KINASE TOTAL (BEAKER) (test rmly=150) 355 U/L 40-250 CREATINE KINASE-MB (BEAKER) (test nwoo=896) 2.2 ng/mL 0.0-4.9 CREATINE KINASE-MB INDEX (BEAKER) (test ttxi=738) 0.6 % CK-MB Reference Range:<5 Normal5-10 Borderline>10 AbnormalCBC W/PLT COUNT & AUTO [id number] 06:58:00 Test Item Value Reference Range Comments WHITE BLOOD CELL COUNT (BEAKER) (test rtru=150) 6.8 K/ L 4.0-10.0 RED BLOOD CELL COUNT (BEAKER) (test iimr=589) 3.57 M/ L 4.20-5.80 HEMOGLOBIN (BEAKER) (test ioby=929) 8.6 GM/DL 13.0-16.8 HEMATOCRIT (BEAKER) (test qiuf=375) 28.0 % 40.0-50.0 MEAN CORPUSCULAR VOLUME (BEAKER) (test vcpw=394) 78.5 fL 82.0-98.0 MEAN CORPUSCULAR HEMOGLOBIN (BEAKER) (test 24.2 pg 27.0-33.0 hfjy=002) MEAN CORPUSCULAR HEMOGLOBIN CONC (BEAKER) (test 30.9 GM/DL 32.0-36.0 mhrp=738) RED CELL DISTRIBUTION WIDTH (BEAKER) (test 22.6 % 10.3-14.2 qjut=971) PLATELET COUNT (BEAKER) (test xeuu=233) 297 K/CU MM 150-430 MEAN PLATELET VOLUME (BEAKER) (test iyfp=691) 7.2 fL 6.5-10.5 NUCLEATED RED BLOOD CELLS (BEAKER) (test 0 /100 WBC 0-0 cind=409) NEUTROPHILS RELATIVE PERCENT (BEAKER) (test 46 % clgw=523) LYMPHOCYTES RELATIVE PERCENT (BEAKER) (test 38 % chiq=805) MONOCYTES RELATIVE PERCENT (BEAKER) (test 14 % tpsa=691) EOSINOPHILS RELATIVE PERCENT (BEAKER) (test 2 % vpao=850) BASOPHILS RELATIVE PERCENT (BEAKER) (test 0 % avwc=866) NEUTROPHILS ABSOLUTE COUNT (BEAKER) (test 3.10 K/ L 1.80-8.00 jhkw=635) LYMPHOCYTES ABSOLUTE COUNT (BEAKER) (test 2.60 K/ L 1.48-4.50 bunk=032) MONOCYTES ABSOLUTE COUNT (BEAKER) (test 0.90 K/ L 0.00-1.30 jwzf=830) EOSINOPHILS ABSOLUTE COUNT (BEAKER) (test 0.20 K/ L 0.00-0.50 xzzu=277) BASOPHILS ABSOLUTE COUNT (BEAKER) (test 0.00 K/ L 0.00-0.20 fgyt=304) (MANUAL DIFFERENTIAL)2017-01-24 06:58:00 Test Item Value Reference Range Comments TOTAL COUNTED (BEAKER) (test efem=6182) WBC MORPHOLOGY (BEAKER) (test qwgw=250) Normal PLT MORPHOLOGY (BEAKER) (test qxwh=372) Normal ANISOCYTOSIS (BEAKER) (test yrky=081) 2+ moderate HYPOCHROMIA (BEAKER) (test eqcg=981) 2+ moderate MICROCYTES (BEAKER) (test rzjj=955) 1+ few TROPONIN [id number] 06:05:00 Test Item Value Reference Range Comments TROPONIN I (BEAKER) (test sptr=072) < ng/mL 0.00-0.15 Troponin I (TnI) levels [...] and persistent tachyarrhythmia.CREATINE KINASE (CK), TOTAL AND [id number] 06:04:00 Test Item Value Reference Range Comments CREATINE KINASE TOTAL (BEAKER) (test jyyy=441) 298 U/L 40-250 CREATINE KINASE-MB (BEAKER) (test qjta=810) 2.1 ng/mL 0.0-4.9 CREATINE KINASE-MB INDEX (BEAKER) (test kzec=856) 0.7 % CK-MB Reference Range:<5 Normal5-10 Borderline>10 AbnormalCOMPREHENSIVE METABOLIC [id number] 06:00:00 Test Item Value Reference Range Comments TOTAL PROTEIN (BEAKER) 6.5 gm/dL 6.0-8.5 (test rgwl=696) ALBUMIN (BEAKER) (test 4.0 g/dL 3.5-5.0 npkm=0016) ALKALINE PHOSPHATASE 76 U/L 30-115 (BEAKER) (test uhnq=042) BILIRUBIN TOTAL (BEAKER) 0.5 mg/dL 0.1-1.2 (test tmcc=148) SODIUM (BEAKER) (test 142 meq/L 135-148 vdlu=668) POTASSIUM (BEAKER) (test 3.5 meq/L 3.6-5.5 uwkt=328) CHLORIDE (BEAKER) (test 106 meq/L 98-106 ywzs=142) CO2 (BEAKER) (test 26 meq/L 20-29 ehmr=706) BLOOD UREA NITROGEN 14 mg/dL 10-26 (BEAKER) (test ghpx=109) CREATININE (BEAKER) (test 0.90 mg/dL 0.50-1.20 bqyw=450) GLUCOSE RANDOM (BEAKER) 79 mg/dL 70-110 (test sqds=031) CALCIUM (BEAKER) (test 8.8 mg/dL 8.5-10.5 ddph=600) AST (SGOT) (BEAKER) (test 16 U/L 5-40 sfch=436) ALT (SGPT) (BEAKER) (test 10 U/L 5-50 nwrz=664) EGFR (BEAKER) (test 91 mL/min/1.73 sq m ESTIMATED GFR IS NOT uour=5813) ACCURATE CREATININE CLEARANCE IN PREDICTING GLOMERULAR FILTRATION RATE. ESTIMATED GFR IS NOT APPLICABLE FOR DIALYSIS PATIENTS. CREATINE KINASE (CK), TOTAL AND [id number] 04:57:00 Test Item Value Reference Range Comments CREATINE KINASE TOTAL (BEAKER) (test genx=544) 653 U/L 30-300 CREATINE KINASE-MB (BEAKER) (test wswp=403) 0.8 ng/mL 0.0-4.9 CREATINE KINASE-MB INDEX (BEAKER) (test hphr=271) 0.1 % CK-MB Reference Range:<5 Normal5-10 Borderline>10 AbnormalTROPONIN [id number] 04:56:00 Test Item Value Reference Range Comments TROPONIN I (BEAKER) (test ujdy=198) 0.03 ng/mL 0.00-0.15 Troponin I (TnI) levels [...] acidosis, acute neurological disease, and persistent tachyarrhythmia.LIPID [id number] 04:47:00 Test Item Value Reference Range Comments TRIGLYCERIDES (BEAKER) (test iond=981) 79 mg/dL CHOLESTEROL (BEAKER) (test aqpc=971) 206 mg/dL HDL CHOLESTEROL (BEAKER) (test eoie=237) 53 mg/dL LDL CHOLESTEROL CALCULATED (BEAKER) (test 137 mg/dL lutq=082) Triglyceride Reference Range: Low Risk <150 Borderline 150- 199 High Risk 200-499 Very High Risk >=500Cholesterol Reference Range: Low Risk <200 Borderline 200-239 High Risk > 240HDL Cholesterol Reference Range: Low Risk >=60 High Risk <40LDL Cholesterol Reference Range: Optimal <100 Near Optimal 100-129 Borderline 130-159 High 160-189 Very High >=190COMPREHENSIVE METABOLIC [id number] 04:47:00 Test Item Value Reference Range Comments TOTAL PROTEIN (BEAKER) 7.2 gm/dL 6.0-8.5 (test xhqh=355) ALBUMIN (BEAKER) (test 4.1 g/dL 3.5-5.0 rlub=9597) ALKALINE PHOSPHATASE 78 U/L 30-115 (BEAKER) (test wdtx=937) BILIRUBIN TOTAL (BEAKER) 0.5 mg/dL 0.1-1.3 (test efaf=635) SODIUM (BEAKER) (test 141 meq/L 135-148 krek=993) POTASSIUM (BEAKER) (test 3.9 meq/L 3.5-5.5 iypm=895) CHLORIDE (BEAKER) (test 109 meq/L 98-106 xozk=097) CO2 (BEAKER) (test 23 meq/L 20-31 zpzc=315) BLOOD UREA NITROGEN 9 mg/dL 10-26 (BEAKER) (test xbsl=648) CREATININE (BEAKER) (test 0.95 mg/dL 0.50-1.20 ziop=546) GLUCOSE RANDOM (BEAKER) 83 mg/dL 70-110 (test hntd=655) CALCIUM (BEAKER) (test 8.8 mg/dL 8.5-10.5 hkbr=916) AST (SGOT) (BEAKER) (test 28 U/L 5-40 qrnw=923) ALT (SGPT) (BEAKER) (test 27 U/L 6-50 wume=763) EGFR (BEAKER) (test 86 mL/min/1.73 sq m ESTIMATED GFR IS NOT hgca=8774) ACCURATE CREATININE CLEARANCE IN PREDICTING GLOMERULAR FILTRATION RATE. ESTIMATED GFR IS NOT APPLICABLE FOR DIALYSIS PATIENTS. CBC W/PLT COUNT & AUTO [id number] 04:19:00 Test Item Value Reference Range Comments WHITE BLOOD CELL COUNT (BEAKER) (test fkbg=987) 6.6 K/ L 4.0-10.0 RED BLOOD CELL COUNT (BEAKER) (test afln=979) 3.66 M/ L 4.20-5.80 HEMOGLOBIN (BEAKER) (test yahg=923) 8.5 GM/DL 13.0-16.8 HEMATOCRIT (BEAKER) (test wqpw=814) 27.3 % 40.0-50.0 MEAN CORPUSCULAR VOLUME (BEAKER) (test igcy=238) 74.7 fL 82.0-98.0 MEAN CORPUSCULAR HEMOGLOBIN (BEAKER) (test 23.2 pg 27.0-33.0 blka=889) MEAN CORPUSCULAR HEMOGLOBIN CONC (BEAKER) (test 31.0 GM/DL 32.0-36.0 bjqj=986) RED CELL DISTRIBUTION WIDTH (BEAKER) (test 19.2 % 12.0-15.0 lwri=605) PLATELET COUNT (BEAKER) (test sgkn=248) 348 K/CU MM 150-430 MEAN PLATELET VOLUME (BEAKER) (test chup=838) 6.8 fL 6.5-10.5 NUCLEATED RED BLOOD CELLS (BEAKER) (test 0 /100 WBC 0-0 mykn=684) NEUTROPHILS RELATIVE PERCENT (BEAKER) (test 49 % abbl=508) LYMPHOCYTES RELATIVE PERCENT (BEAKER) (test 39 % niir=540) MONOCYTES RELATIVE PERCENT (BEAKER) (test 9 % qain=411) EOSINOPHILS RELATIVE PERCENT (BEAKER) (test 1 % mntz=575) BASOPHILS RELATIVE PERCENT (BEAKER) (test 2 % xwke=463) NEUTROPHILS ABSOLUTE COUNT (BEAKER) (test 3.20 K/ L 1.80-8.00 bvmk=366) LYMPHOCYTES ABSOLUTE COUNT (BEAKER) (test 2.60 K/ L 1.48-4.50 yvqy=255) MONOCYTES ABSOLUTE COUNT (BEAKER) (test 0.60 K/ L 0.00-1.30 zpzc=055) EOSINOPHILS ABSOLUTE COUNT (BEAKER) (test 0.10 K/ L 0.00-0.50 muff=932) BASOPHILS ABSOLUTE COUNT (BEAKER) (test 0.10 K/ L 0.00-0.20 jjqd=814) TROPONIN [id number] 13:44:00 Test Item Value Reference Range Comments TROPONIN I (BEAKER) (test wwtg=883) < ng/mL 0.00-0.15 Troponin I (TnI) levels [...] and persistent tachyarrhythmia.CREATINE KINASE (CK), TOTAL AND [id number] 13:43:00 Test Item Value Reference Range Comments CREATINE KINASE TOTAL (BEAKER) (test lhqj=310) 61 U/L 40-250 CREATINE KINASE-MB (BEAKER) (test gdwf=996) 1.0 ng/mL 0.0-4.9 CREATINE KINASE-MB INDEX (BEAKER) (test snuy=027) 1.6 % CK-MB Reference Range:<5 Normal5-10 Borderline>10 AbnormalTROPONIN [id number] 07:21:00 Test Item Value Reference Range Comments TROPONIN I (BEAKER) (test oqbj=736) < ng/mL 0.00-0.15 Troponin I (TnI) levels [...] and persistent tachyarrhythmia.CREATINE KINASE (CK), TOTAL AND [id number] 07:20:00 Test Item Value Reference Range Comments CREATINE KINASE TOTAL (BEAKER) (test thhp=135) 58 U/L 40-250 CREATINE KINASE-MB (BEAKER) (test pbuj=132) 0.9 ng/mL 0.0-4.9 CREATINE KINASE-MB INDEX (BEAKER) (test fqdh=961) 1.6 % CK-MB Reference Range:<5 Normal5-10 Borderline>10 AbnormalCBC W/PLT COUNT & AUTO [id number] 22:21:00 Test Item Value Reference Range Comments WHITE BLOOD CELL COUNT (BEAKER) (test kflb=996) 7.3 K/ L 4.0-10.0 RED BLOOD CELL COUNT (BEAKER) (test ligi=622) 4.00 M/ L 4.20-5.80 HEMOGLOBIN (BEAKER) (test yukr=215) 9.4 GM/DL 13.0-16.8 HEMATOCRIT (BEAKER) (test ntwn=994) 30.0 % 40.0-50.0 MEAN CORPUSCULAR VOLUME (BEAKER) (test uvlz=383) 74.9 fL 82.0-98.0 MEAN CORPUSCULAR HEMOGLOBIN (BEAKER) (test 23.5 pg 27.0-33.0 zhpp=828) MEAN CORPUSCULAR HEMOGLOBIN CONC (BEAKER) (test 31.4 GM/DL 32.0-36.0 iwyn=869) RED CELL DISTRIBUTION WIDTH (BEAKER) (test 20.1 % 10.3-14.2 rijq=851) PLATELET COUNT (BEAKER) (test foqs=039) 392 K/CU MM 150-430 MEAN PLATELET VOLUME (BEAKER) (test skft=301) 6.8 fL 6.5-10.5 NUCLEATED RED BLOOD CELLS (BEAKER) (test 0 /100 WBC 0-0 bjqg=046) NEUTROPHILS RELATIVE PERCENT (BEAKER) (test 45 % aykt=589) LYMPHOCYTES RELATIVE PERCENT (BEAKER) (test 40 % pydm=855) MONOCYTES RELATIVE PERCENT (BEAKER) (test 14 % tixu=377) EOSINOPHILS RELATIVE PERCENT (BEAKER) (test 1 % uydv=574) BASOPHILS RELATIVE PERCENT (BEAKER) (test 0 % awre=744) NEUTROPHILS ABSOLUTE COUNT (BEAKER) (test 3.30 K/ L 1.80-8.00 tdey=771) LYMPHOCYTES ABSOLUTE COUNT (BEAKER) (test 2.90 K/ L 1.48-4.50 afgd=882) MONOCYTES ABSOLUTE COUNT (BEAKER) (test 1.00 K/ L 0.00-1.30 nazg=172) EOSINOPHILS ABSOLUTE COUNT (BEAKER) (test 0.10 K/ L 0.00-0.50 zuky=204) BASOPHILS ABSOLUTE COUNT (BEAKER) (test 0.00 K/ L 0.00-0.20 zpqb=744) (MANUAL DIFFERENTIAL)[id number] 22:21:00 Test Item Value Reference Range Comments TOTAL COUNTED (BEAKER) (test zkdi=8502) WBC MORPHOLOGY (BEAKER) (test cxci=046) Normal PLT MORPHOLOGY (BEAKER) (test emkf=877) Normal ANISOCYTOSIS (BEAKER) (test dlel=493) 2+ moderate HYPOCHROMIA (BEAKER) (test qctc=069) 1+ few TROPONIN [id number] 22:13:00 Test Item Value Reference Range Comments TROPONIN I (BEAKER) (test bwdo=344) < ng/mL 0.00-0.15 Troponin I (TnI) levels [...] and persistent tachyarrhythmia.CREATINE KINASE (CK), TOTAL AND [id number] 22:12:00 Test Item Value Reference Range Comments CREATINE KINASE TOTAL (BEAKER) (test okvr=050) 68 U/L 40-250 CREATINE KINASE-MB (BEAKER) (test lxkk=551) 1.0 ng/mL 0.0-4.9 CREATINE KINASE-MB INDEX (BEAKER) (test oapd=925) 1.5 % CK-MB Reference Range:<5 Normal5-10 Borderline>10 AbnormalCOMPREHENSIVE METABOLIC [id number] 22:05:00 Test Item Value Reference Range Comments TOTAL PROTEIN (BEAKER) 8.0 gm/dL 6.0-8.5 (test dimo=171) ALBUMIN (BEAKER) (test 4.7 g/dL 3.5-5.0 lyzd=9209) ALKALINE PHOSPHATASE 84 U/L 30-115 (BEAKER) (test xowb=210) BILIRUBIN TOTAL (BEAKER) 0.5 mg/dL 0.1-1.2 (test vfug=308) SODIUM (BEAKER) (test 139 meq/L 135-148 aaig=714) POTASSIUM (BEAKER) (test 4.0 meq/L 3.6-5.5 tvka=621) CHLORIDE (BEAKER) (test 103 meq/L 98-106 pxow=290) CO2 (BEAKER) (test 26 meq/L 20-29 ppvt=518) BLOOD UREA NITROGEN 13 mg/dL 10-26 (BEAKER) (test jrvg=126) CREATININE (BEAKER) (test 1.00 mg/dL 0.50-1.20 npqr=235) GLUCOSE RANDOM (BEAKER) 118 mg/dL 70-110 (test gmra=580) CALCIUM (BEAKER) (test 10.1 mg/dL 8.5-10.5 kcnr=159) AST (SGOT) (BEAKER) (test 19 U/L 5-40 pebb=326) ALT (SGPT) (BEAKER) (test 15 U/L 5-50 ryir=020) EGFR (BEAKER) (test 81 mL/min/1.73 sq m ESTIMATED GFR IS NOT hstn=6187) ACCURATE CREATININE CLEARANCE IN PREDICTING GLOMERULAR FILTRATION RATE. ESTIMATED GFR IS NOT APPLICABLE FOR DIALYSIS PATIENTS. PROTHROMBIN TIME/[id number] 21:58:00 Test Item Value Reference Range Comments PROTIME (BEAKER) (test kfnw=857) 10.5 seconds 9.3-12.0 INR (BEAKER) (test zopg=005) 1.0 <=5.9 RECOMMENDED COUMADIN/WARFARIN INR THERAPY RANGESSTANDARD DOSE: 2.0 - 3.0 Includes: PROPHYLAXIS forvenous thrombosis, systemic embolization; TREATMENT for venous thrombosis and/or pulmonary embolus.HIGH RISK: Target INR is 2.5-3.5 for patients with mechanical heart valves.[id number] 21:58:00 Test Item Value Reference Range Comments PARTIAL THROMBOPLASTIN TIME (BEAKER) (test 32.3 seconds 23.0-35.0 gqla=352)
[2018-11-14] MEDS ORDERED: ASPIRIN 81 MG CHEWABLE TABLET ONE (10:10)
[2018-11-14] MEDS ORDERED: NITROGLYCERIN 0.4 MG/TAB SL ONE (10:10)
[2018-11-14 10:27] LABS: Absolute Lymphocytes (CBC) 1.8 K/uL (0.7-4.9); Absolute Monocytes 0.5 K/uL (0.1-1.3); Absolute Neutrophil 3.1 K/uL (1.8-8.0); Basophils % 0.3 % (0-1.3); Eosinophils % 0.7 % (0-4.4); Hematocrit 37.9 % (39.6-49.0); Lymphocytes % 32.6 % (15.3-44.8); MPV 7.2 fL (7.6-11.3); Monocytes % 9.8 % (3.3-12.3); RBC Red Blood Cell Count 4.77 M/uL (4.33-5.43)
[2018-11-14 10:31] LABS: Protime INR 1.11
--- NOTE | 2018-11-14 10:34 | RAD REPORT ---
EXAM DESCRIPTION: Lizbet Single View11/14/2018 10:28 am CLINICAL HISTORY: Chest pain COMPARISON: October 2018 FINDINGS: The lungs appear clear of acute infiltrate. The heart is normal size A central venous catheter remains in place IMPRESSION: No acute abnormalities displayed
[2018-11-14] MEDS ORDERED: FENTANYL CITR 100 MCG/2 ML ONE ×2 (10:37→14:01)
[2018-11-14 10:43] LABS: ALT/SGPT 32 U/L (12-78); AST/SGOT 38 U/L (15-37); Albumin 4.1 g/dL (3.4-5.0); Alkaline Phosphatase 86 U/L (45-117); BUN Blood Urea Nitrogen 14 mg/dL (7-18); Bicarbonate 22 mmol/L (21-32); Bilirubin Direct 0.1 mg/dL (0-0.2); Bilirubin Total 0.4 mg/dL (0.2-1.0); Glucose Level 204 mg/dL (74-106); Magnesium 2.4 mg/dL (1.8-2.4); NT PRO-BNP 10 pg/mL (<125); Potassium 3.6 mmol/L (3.5-5.1); Protein, Total 8.3 g/dL (6.4-8.2); Sodium Level 140 mmol/L (136-145); Troponin (Emerg Dept Use Only) < 0.02 ng/mL (0.0-0.045)
[2018-11-14] MEDS ORDERED: NA CHLORIDE 0.9% 1,000 ML ONE (11:06)
--- NOTE | 2018-11-14 11:43 | RAD REPORT ---
EXAM DESCRIPTION: CT - Chest For Pe Angio - 11/14/2018 11:25 am CLINICAL HISTORY: Chest pain COMPARISON: August 2018 TECHNIQUE: Dynamically enhanced axial 3 mm thick images of the chest were obtained during administra tion of <100> mL Isovue 370 IV contrast. Coronal and oblique reconstruction images were generated and reviewed. Exam utilizes a protocol for optimal evaluation of pulmonary arterial tree. Maximum intensity projections 3D imaging was utilized All CT scans are performed using dose optimization technique as appropriate and may include automated exposure control or mA/KV adjustment according to patient size. FINDINGS: A pulmonary embolus is not seen. A thoracic aortic aneurysm is not noted. A pleural effusion is not seen. A pericardial effusion is not seen. A lung consolidation is not present. 6 millimeter calculus left kidney IMPRESSION: Negative for a pulmonary embolism.
[2018-11-14 12:22] LABS: Platelet Estimate INCR; Urine White Blood Cell Casts OK
[2018-11-14 12:23] LABS: Anisocytosis 2+; Blood Morphology Comment NOTED (NOT SEEN); Poikilocytosis 1+; Polychromasia 1+
--- NOTE | 2018-11-14 12:28 | ER ---
Nurse's Notes [facility] Name: Christiano Serra Age: 48 yrs Sex: Male : 1970 Arrival Date: 11/14/2018 Time: 09:23 Bed 7 Private MD: out of town, doctor Diagnosis: Chest pain, unspecified Presentation: 11/14 09:24 Risk Assessment: Do you want to hurt yourself or someone else? Patient reports no sg desire to harm self or others. Initial Sepsis Screen: Does the patient meet any 2 criteria? No. Patient's initial sepsis screen is negative. Does the patient have a suspected source of infection? No. Patient's initial sepsis screen is negative. Care prior to arrival: None. 09:24 Acuity: RADHA 3 sg 09:30 Transition of care: patient was not received from another setting of care. Onset of bp symptoms is unknown. 09:30 Presenting complaint: Patient states: CHEST PAIN. bp 09:30 Method Of Arrival: Ambulatory bp Historical: - Allergies: 09:24 ambien; sg 09:24 Morphine; sg 09:24 Toradol; sg - Home Meds: 09:28 Norvasc Oral [Active]; sg 09:29 Arixtra [Active]; Bystolic Oral [Active]; carvedilol 25 mg Oral tab 1 tab 2 times per sg day [Active]; Lipitor Oral [Active]; lisinopril Oral [Active]; nitroglycerin 0.4 mg SL subl 1 tab every 5 minutes [Active]; Letcher Oral [Active]; Plavix 75 mg Oral tab 1 tab once daily [Active]; Zanaflex Oral [Active]; - PMHx: 09:24 FACTOR V; Hyperlipidemia; Hypertension; Myocardial infarction; sg - PSHx: 09:24 Heart stents; back surgery; Cholecystectomy; port a cath; sg - Immunization history:: Adult Immunizations up to date. - Social history:: Smoking status: Patient/guardian denies using tobacco. - Ebola Screening: : Patient negative for fever greater than or equal to 101.5 degrees Fahrenheit, and additional compatible Ebola Virus Disease symptoms Patient denies exposure to infectious person Patient denies travel to an Ebola-affected area in the 21 days before illness onset No symptoms or risks identified at this time. Screenin:45 Abuse screen: Denies threats or abuse. Denies injuries from another. Nutritional hb screening: No deficits noted. Tuberculosis screening: No symptoms or risk factors identified. Fall Risk None identified. Assessment: 09:45 General: Appears in no apparent distress. uncomfortable, Behavior is calm, cooperative. hb Pain: Complains of pain in chest Pain does not radiate. Pain currently is 8 out of 10 on a pain scale. Pain began suddenly, 1 hour ago. Neuro: Level of Consciousness is awake, alert, obeys commands, Oriented to person, place, time, situation. Cardiovascular: Heart tones S1 S2 present Capillary refill < 3 seconds Patient's skin is warm and dry. Respiratory: Airway is patent Respiratory effort is even, unlabored, Respiratory pattern is regular, symmetrical, Breath sounds are clear bilaterally. GI: No signs and/or symptoms were reported involving the gastrointestinal system. : No signs and/or symptoms were reported regarding the genitourinary system. EENT: No signs and/or symptoms were reported regarding the EENT system. Derm: Skin is intact, is healthy with good turgor. Musculoskeletal: No signs and/or symptoms reported regarding the musculoskeletal system. 10:45 Reassessment: Patient appears in no apparent distress at this time. No changes from hb previously documented assessment. Patient and/or family updated on plan of care and expected duration. Pain level reassessed. Patient is alert, oriented x 3, equal unlabored respirations, skin warm/dry/pink. 11:45 Reassessment: Patient appears in no apparent distress at this time. No changes from hb previously documented assessment. Patient and/or family updated on plan of care and expected duration. Pain level reassessed. Patient is alert, oriented x 3, equal unlabored respirations, skin warm/dry/pink. Vital Signs: 09:29 BP 129 / 93; Pulse 122; Resp 19; Temp 98.2; Pulse Ox 100% on R/A; Weight 90.72 kg; sg Height 5 ft. 9 in. (175.26 cm); Pain 10/10; 10:45 BP 124 / 85; Pulse 112; Resp 18; Pulse Ox 100% on R/A; Pain 8/10; hb 11:55 BP 148 / 83; Pulse 95; Resp 16; Pulse Ox 99% on R/A; Pain 8/10; hb 14:00 BP 136 / 90; Pulse 101; Resp 20; Pulse Ox 98% ; bp 09:29 Body Mass Index 29.53 (90.72 kg, 175.26 cm) ED Course: 09:23 Patient arrived in ED. sb2 09:23 out of town, doctor is Private Physician. sb2 09:23 Arm band placed on. sg 09:24 Triage completed. sg 09:34 Derian Pringle PA is PHCP. cp 09:34 Martinez Ervin MD is Attending Physician. cp 09:40 Patient maintains SpO2 saturation greater than 95% on room air. hb 09:44 Accessed Port-a-Cath. using accessed w/ # 20 Rich needle, ,sterile technique, per [facility] protocol. Clean \T\ dry. Good blood return. Flushes easily. 09:45 Patient has correct armband on for positive identification. Placed in gown. Bed in low hb position. Call light in reach. Side rails up X 1. commercial engineer on. Pulse ox on. NIBP on. 09:57 Veronica Morris, RN is Primary Nurse. hb 10:28 X-ray completed. Portable x-ray completed in exam room. Patient tolerated procedure sw well. 10:29 XRAY Chest (1 view) In Process Unspecified. EDMS 11:22 CT completed. Patient tolerated procedure well. Patient moved to CT via stretcher. sj Patient moved back from CT. 11:25 CT Chest For PE Angio In Process Unspecified. EDMS 12:27 Alan Francois DO is Hospitalizing Provider. cp 15:00 Primary Nurse role handed off by Veronica Morris, RN bp 15:00 Surjit Sears, ADRIANA is Primary Nurse. bp 15:53 No provider procedures requiring assistance completed. Patient admitted, IV remains in bp place. Administered Medications: 10:00 Drug: Nitroglycerin 0.4 mg Route: Sublingual; hb 10:30 Follow up: Response: No adverse reaction hb 10:00 Drug: Aspirin Chewable Tablet 324 mg Route: PO; hb 10:45 Follow up: Response: No adverse reaction hb 10:29 Drug: fentaNYL (PF) 50 mcg Route: IVP; Site: Port-a-cath; hb 11:00 Follow up: Response: No adverse reaction; Pain is decreased hb 11:00 Drug: NS 0.9% 500 ml Route: IV; Rate: bolus; Site: left antecubital; hb 11:45 Follow up: Response: No adverse reaction; IV Status: Completed infusion hb 11:49 Drug: NS 0.9% 1000 ml Route: IV; Rate: 100 ml/hr; Site: Port-a-cath; hb 15:25 Follow up: IV Status: Infusion continued upon admission; IV Intake: 300ml bp 11:49 Drug: fentaNYL (PF) 50 mcg Route: IVP; Site: Port-a-cath; hb 12:30 Follow up: Response: No adverse reaction; Pain is decreased hb 15:25 Follow up: Response: Pain is decreased bp 13:53 Drug: fentaNYL (PF) 50 mcg Route: IVP; Site: Port-a-cath; hb 15:25 Follow up: Response: Pain is decreased bp Intake: 15:25 IV: 300ml; Total: 300ml. bp Outcome: 12:28 Decision to Hospitalize by Provider. cp 15:53 Admitted to Tele accompanied by tech, via wheelchair, room 218, with chart, Report bp called to FERMIN RN 15:53 Condition: stable 15:53 Instructed on the need for admit. 16:04 Patient left the ED. bp Signatures: Dispatcher [employer] EDMS Héctor Kent, RN RN Roslyn Huitron Shannon sw Page, Corey, FUAD MERIDA cp Veronica Morris, RN RN Surjit Parish RN RN Rabia Castro2
--- NOTE | 2018-11-14 12:28 | EDPHYS ---
Physician Documentation [facility] Name: Christiano Serra Age: 48 yrs Sex: Male : 1970 Arrival Date: 11/14/2018 Time: 09:23 Bed 7 Private MD: out of town, doctor ED Physician Martinez Ervin HPI: 11/14 10:00 This 48 yrs old Other Male presents to ER via Unassigned with complaints of Chest Pain. cp 10:00 The patient or guardian reports chest pain that is located primarily in the anterior cp chest wall, bilaterally. Onset: 1 hour(s) ago. The pain does not radiate. Associated signs and symptoms: Pertinent positives: shortness of breath, Pertinent negatives: abdominal pain, cough, diaphoresis, dizziness, lower extremity pain, lower extremity swelling, recent travel, syncope. 10:00 Duration: The patient or guardian reports a single episode, that is still ongoing, and cp unchanged. The patient has experienced similar episodes in the past, multiple times. 10:00 The chest pain is described as aching. cp Historical: - Allergies: 09:24 ambien; sg 09:24 Morphine; sg 09:24 Toradol; sg - Home Meds: 09:28 Norvasc Oral [Active]; sg 09:29 Arixtra [Active]; Bystolic Oral [Active]; carvedilol 25 mg Oral tab 1 tab 2 times per sg day [Active]; Lipitor Oral [Active]; lisinopril Oral [Active]; nitroglycerin 0.4 mg SL subl 1 tab every 5 minutes [Active]; Cotuit Oral [Active]; Plavix 75 mg Oral tab 1 tab once daily [Active]; Zanaflex Oral [Active]; - PMHx: 09:24 FACTOR V; Hyperlipidemia; Hypertension; Myocardial infarction; sg - PSHx: 09:24 Heart stents; back surgery; Cholecystectomy; port a cath; sg - Immunization history:: Adult Immunizations up to date. - Social history:: Smoking status: Patient/guardian denies using tobacco. - Ebola Screening: : Patient negative for fever greater than or equal to 101.5 degrees Fahrenheit, and additional compatible Ebola Virus Disease symptoms Patient denies exposure to infectious person Patient denies travel to an Ebola-affected area in the 21 days before illness onset No symptoms or risks identified at this time. ROS: 10:05 Constitutional: Negative for body aches, chills, fever, poor PO intake. cp 10:05 Eyes: Negative for injury, pain, redness, and discharge. cp 10:05 ENT: Negative for drainage from ear(s), ear pain, sore throat, difficulty swallowing, cp difficulty handling secretions. 10:05 Cardiovascular: Positive for chest pain, Negative for edema, palpitations. 10:05 Respiratory: Positive for shortness of breath, Negative for cough, wheezing. 10:05 Abdomen/GI: Negative for abdominal pain, nausea, vomiting, and diarrhea, constipation, black/tarry stool, rectal bleeding. 10:05 Back: Negative for pain at rest, pain with movement, radiated pain. 10:05 Skin: Negative for cellulitis, rash. 10:05 Neuro: Negative for altered mental status, dizziness, headache, syncope, weakness. 10:05 All other systems are negative. Exam: 09:35 ECG was reviewed by the Attending Physician. cp 10:15 Constitutional: The patient appears in no acute distress, alert, awake, cp non-diaphoretic, non-toxic, well developed, well nourished, uncomfortable. 10:15 Head/Face: Normocephalic, atraumatic. cp 10:15 Eyes: Pupils equal round and reactive to light, extra-ocular motions intact. Lids and cp lashes normal. Conjunctiva and sclera are non-icteric and not injected. Cornea within normal limits. Periorbital areas with no swelling, redness, or edema. ENT: Nares patent. No nasal discharge, no septal abnormalities noted. Tympanic membranes are normal and external auditory canals are clear. Oropharynx with no redness, swelling, or masses, exudates, or evidence of obstruction, uvula midline. Mucous membranes moist. Neck: Trachea midline, no thyromegaly or masses palpated, and no cervical lymphadenopathy. Supple, full range of motion without nuchal rigidity, or vertebral point tenderness. No Meningismus. Chest/axilla: Normal chest wall appearance and motion. Nontender with no deformity. No lesions are appreciated. 10:15 Cardiovascular: Rate: tachycardic, Rhythm: regular, Pulses: Pulses are 2+ in right radial artery and left radial artery. Heart sounds: murmur, not appreciated, rub, not appreciated, gallop, not appreciated, Edema: is not appreciated, JVD: is not appreciated. 10:15 Respiratory: the patient does not display signs of respiratory distress, Respirations: normal, no use of accessory muscles, no retractions, no splinting, no tachypnea, labored breathing, is not present, Breath sounds: are clear throughout, no decreased breath sounds, no stridor, no wheezing. 10:15 Abdomen/GI: Inspection: abdomen appears normal, Bowel sounds: active, all quadrants, Palpation: abdomen is soft and non-tender, in all quadrants, rebound tenderness, is not appreciated, voluntary guarding, is not appreciated, involuntary guarding, is not appreciated. 10:15 Back: pain, is absent, ROM is normal. 10:15 Skin: cellulitis, is not appreciated, no rash present. 10:15 Neuro: Orientation: is normal, Mentation: is normal, Cerebellar function: is grossly normal, Motor: moves all fours, strength is normal, Sensation: is normal. Vital Signs: 09:29 BP 129 / 93; Pulse 122; Resp 19; Temp 98.2; Pulse Ox 100% on R/A; Weight 90.72 kg; sg Height 5 ft. 9 in. (175.26 cm); Pain 10/10; 10:45 BP 124 / 85; Pulse 112; Resp 18; Pulse Ox 100% on R/A; Pain 8/10; hb 11:55 BP 148 / 83; Pulse 95; Resp 16; Pulse Ox 99% on R/A; Pain 8/10; hb 14:00 BP 136 / 90; Pulse 101; Resp 20; Pulse Ox 98% ; bp 09:29 Body Mass Index 29.53 (90.72 kg, 175.26 cm) sg MDM: 09:34 Patient medically screened. cp 12:00 Data reviewed: vital signs, nurses notes, lab test result(s), EKG, radiologic studies, cp CT scan, plain films. 12:00 Differential diagnosis: abnormal EKG, acute myocardial infarction, acute pericarditis, cp chest wall pain, costochondritis, esophagitis, pancreatitis, pericarditis, pleurisy, pneumonia, pulmonary embolus, stable angina, thoracic aortic disection, unstable angina. The patient was given aspirin in the Emergency Department. Test interpretation: by ED physician or midlevel provider: ECG, plain radiologic studies. Response to treatment: the patient's symptoms have markedly improved after treatment, and as a result, I will admit patient. 12:01 Physician consultation: Alan Francois DO was contacted at 12:02, regarding admission, cp to the telemetry unit. patient's condition, and will see patient in ED, shortly. 11/14 09:48 Order name: Basic Metabolic Panel; Complete Time: 11:02 cp / 14:59 Interpretation: Normal except: GLUC 204; GFR 60. cp 11/14 09:48 Order name: CBC with Diff; Complete Time: 14:59 cp / 11:02 Interpretation: Normal except: HGB 12.3; HCT 37.9; MCV 79.5; MCH 25.8; PLT 440; RDW cp 26.4; MPV 7.2. 11/14 09:48 Order name: LFT's; Complete Time: 11:02 cp 11/14 09:48 Order name: Magnesium; Complete Time: 11:02 cp 11/14 09:48 Order name: NT PRO-BNP; Complete Time: 11:02 cp 11/14 09:48 Order name: PT-INR; Complete Time: 11:02 cp 11/14 09:48 Order name: Troponin (emerg Dept Use Only); Complete Time: 11:02 cp 11/14 09:48 Order name: XRAY Chest (1 view); Complete Time: 11:46 11/14 11:46 Interpretation: Report review. 11/14 10:32 Order name: CBC Smear Scan; Complete Time: 14:59 EDKY 11/14 11:06 Order name: CT Chest For PE Angio; Complete Time: 11:46 11/14 11:46 Interpretation: Report reviewed. 11/14 12:26 Order name: UDS 11/14 15:02 Order name: Urine Dipstick--Ancillary (enter results) bd 11/14 15:21 Order name: Urine Drug Screen EDKY 11/14 09:48 Order name: EKG; Complete Time: 09:49 cp 11/14 09:48 Order name: Cardiac monitoring; Complete Time: 10:23 cp 11/14 09:48 Order name: EKG - Nurse/Tech; Complete Time: 10:23 cp 11/14 09:48 Order name: IV Saline Lock; Complete Time: 10:23 cp 11/14 09:48 Order name: Labs collected and sent; Complete Time: 10:23 cp 11/14 09:48 Order name: O2 Per Protocol; Complete Time: 10:23 cp 11/14 09:48 Order name: O2 Sat Monitoring; Complete Time: 10:23 cp 11/14 13:55 Order name: Diet Heart Healthy; Complete Time: 13:56 hb EC:35 Rate is 120 beats/min. Rhythm is regular. WV interval is normal. QRS interval is cp normal. QT interval is normal. Interpreted by me. Reviewed by me. Administered Medications: 10:00 Drug: Nitroglycerin 0.4 mg Route: Sublingual; hb 10:30 Follow up: Response: No adverse reaction hb 10:00 Drug: Aspirin Chewable Tablet 324 mg Route: PO; hb 10:45 Follow up: Response: No adverse reaction hb 10:29 Drug: fentaNYL (PF) 50 mcg Route: IVP; Site: Port-a-cath; hb 11:00 Follow up: Response: No adverse reaction; Pain is decreased hb 11:00 Drug: NS 0.9% 500 ml Route: IV; Rate: bolus; Site: left antecubital; hb 11:45 Follow up: Response: No adverse reaction; IV Status: Completed infusion hb 11:49 Drug: NS 0.9% 1000 ml Route: IV; Rate: 100 ml/hr; Site: Port-a-cath; hb 15:25 Follow up: IV Status: Infusion continued upon admission; IV Intake: 300ml bp 11:49 Drug: fentaNYL (PF) 50 mcg Route: IVP; Site: Port-a-cath; hb 12:30 Follow up: Response: No adverse reaction; Pain is decreased hb 15:25 Follow up: Response: Pain is decreased bp 13:53 Drug: fentaNYL (PF) 50 mcg Route: IVP; Site: Port-a-cath; hb 15:25 Follow up: Response: Pain is decreased bp Disposition: 17:04 Co-signature as Attending Physician, Martinez Ervin MD. rn Disposition: 11/14/18 12:28 Hospitalization ordered by Alan Francois for Observation. Preliminary diagnosis is Chest pain, unspecified. - Bed requested for Telemetry/MedSurg (observation). - Status is Observation. bp - Condition is Stable. - Problem is an ongoing problem. - Symptoms have improved. UTI on Admission? No Signatures: Dispatcher [employer] EDMS Malgorzata Sheriff RN RN dw Gay, Steven, RN RN sg Martinez Ervin MD MD rn Page, Corey, PA PA cp Veronica Morris RN RN Surjit Sears RN RN bp Corrections: (The following items were deleted from the chart) 15:19 12:28 Hospitalization Ordered by Alan Francois DO for Observation. Preliminary dw diagnosis is Chest pain, unspecified. Bed requested for Telemetry/MedSurg (observation). Status is Observation. Condition is Stable. Problem is an ongoing problem. Symptoms have improved. UTI on Admission? No. cp 16:04 15:19 11/14/2018 12:28 Hospitalization Ordered by Alan Francois DO for Observation. bp Preliminary diagnosis is Chest pain, unspecified. Bed requested for Telemetry/MedSurg (observation). Status is Observation. Condition is Stable. Problem is an ongoing problem. Symptoms have improved. UTI on Admission? No. dw
--- NOTE | 2018-11-14 12:56 | EKG ---
Test Date: 2018-11-14 Test Time: 09:30:20 Automotive Designer: SID MEASUREMENT RESULTS: Intervals: Rate: 120 ND: 156 QRSD: 82 QT: 326 QTc: 460 [place]: P: 51 ND: 156 QRS: 44 T: 62 INTERPRETIVE STATEMENTS: Sinus tachycardia Right atrial enlargement Borderline ECG Compared to ECG 10/20/2018 11:11:58 Atrial abnormality now present ST (T wave) deviation no longer present Electronically Signed On 11-14-18 12:55:58 [employer] by [employer] A[employer]u
--- NOTE | 2018-11-14 15:02 | P.HP ---
Certification for Inpatient Patient admitted to: Observation With expected LOS: <2 Midnights Patient will require the following post-hospital care: None Practitioner: I am a practitioner with admitting privileges, knowledge of patient current condition, hospital course, and medical plan of care. Services: Services provided to patient in accordance with Admission requirements found in Title 42 Section 412.3 of the Code of Federal Regulations Patient History Date of Service: 11/14/18 Primary Care Provider: None; Cardiology-Dr. Patel([place], [place]) Reason for admission: Chest pain History of Present Illness: 48-year-old male presented to emergency room with chest pain. Patient with history of pulmonary embolism, CAD with stents, and factor 5 deficiency. Patient reports increasing chest pain today. He apparently took 3 nitro at home without significant change. Chest pain waxes and wanes. He denies any significant nausea, vomiting, or diaphoresis. He reports that he last saw all his doll dresser several weeks ago. He reported that he was taken off Imdur and placed on Norvasc. He reports blood pressure being slightly elevated. In late August he apparently was hospitalized. It was recommended he get heart catheterization at that time. The patient refused and left. He reports he left due to an emergency with family. In the ER patient evaluated. No significant EKG changes noted. Troponin unremarkable. Patient was admitted for further evaluation. When I saw the patient ER, patient appears stable. Blood pressure slightly elevated Allergies ketorolac tromethamine [From Toradol] Allergy (Intermediate, Verified 10/20/18 16:05) Hives morphine Allergy (Verified 10/20/18 16:05) Hives zolpidem tartrate [From Ambien] Adverse Reaction (Intermediate, Verified 16:05) [facility] Home medications list reviewed: Yes Home Medications: Hydrocodone 10/APAP 325 [[place] 10/325*] 1 tab PO Q4HP PRN 07/28/14 Tizanidine [Zanaflex*] 2 tab PO Q4HP PRN 07/29/14 Clopidogrel Bisulfate [Plavix*] 75 mg PO DAILY 02/19/17 Fondaparinux [Arixtra*] 7.5 mg PO DAILY 02/19/17 Lisinopril 10 mg PO DAILY 02/19/17 Nebivolol HCl [Bystolic*] 20 mg PO DAILY 08/09/18 Atorvastatin Calcium [Lipitor] 40 mg PO BEDTIME 09/18/18 - Past Medical/Surgical History Diabetic: 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 -: CAD with prior stents -: History of Pulmonary Embolism -: History of pericarditis -: Hypertension -: Hyperlipidemia -: Chronic back pain -: Back Surgery -: Cholecystectomy -: Right chest wall Port-A-Cath -: Cardiac stentsx2 Psychosocial/ Personal History: Patient is . He has no children - Family History Family History: Reviewed- Non-Contributory - Family History Mother -: Heart disease - Social History Smoking Status: Never smoker Alcohol use: No CD- Drugs: No Caffeine use: No Place of Residence: Home Review of Systems General: As per HPI Eyes: Unremarkable ENT: Unremarkable Respiratory: Unremarkable Cardiovascular: Chest Pain, As per HPI Gastrointestinal: Unremarkable Genitourinary: Unremarkable Musculoskeletal: Unremarkable Integumentary: Unremarkable Neurological: Unremarkable Lymphatics: Unremarkable Physical Examination - Physical Exam General: Alert, In no apparent distress, Oriented x3, Cooperative HEENT: Atraumatic, Normocephalic, PERRLA, Mucous membr. moist/pink Neck: Supple, No Thyromegaly Respiratory: Clear to auscultation bilaterally, Normal air movement Cardiovascular: Normal pulses, Regular rate/rhythm Gastrointestinal: Normal bowel sounds, Soft and benign, Non-distended, No tenderness, No masses, No rebound, No guarding Musculoskeletal: No erythema, No tenderness, No warmth Integumentary: No tenderness/swelling, No erythema, No warmth, No cyanosis Neurological: Normal speech, Normal strength at 5/5 x4 extr, Normal tone, Normal affect - Studies Laboratory Data (last 24 hrs) 11/14/18 10:11: PT 13.1 H, INR 1.11 11/14/18 10:11: WBC 5.6, Hgb 12.3 L, Hct 37.9 L, Plt Count 440 H 11/14/18 10:11: Sodium 140, Potassium 3.6, BUN 14, Creatinine 1.29, Glucose 204 H, Magnesium 2.4, Total Bilirubin 0.4, AST 38 H, ALT 32, Alkaline Phosphatase 86 Assessment and Plan - Plan Impression: Chest pain with history of CAD and prior stents 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 Will continue to monitor on telemetry. Will monitor cardiac enzymes. Will obtain echocardiogram. Cardiology consulted to further evaluate. Await further recommendation. Will continue with the majority of his medications including Norvasc, Plavix, Lipitor, lisinopril, Bystolic and Arixtra. 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 Will monitor and adjust appropriately. Hyperlipidemia: Continue with Lipitor Chronic back pain: Will continue with his medication from home-[place]. No need for IV medication. Discharge Plan: Home Plan to discharge in: 24 Hours - Advance Directives Does patient have a Living Will: No Does patient have a Durable POA for Healthcare: No - Code Status/Comfort Care Code Status Assessed: Yes (Patient full code.) Time Spent Managing Pts Care (In Minutes): 55
[2018-11-14 15:20] LABS: Barbiturates NEGATIVE (NEGATIVE); Benzodiazepines NEGATIVE (NEGATIVE); Cocaine NEGATIVE (NEGATIVE); METHAMPHETAM NEGATIVE (NEGATIVE); Methadone NEGATIVE (NEGATIVE); Opiates NEGATIVE (NEGATIVE); Phencyclidine NEGATIVE (NEGATIVE); THC Cannibis NEGATIVE (NEGATIVE)
[2018-11-14] MEDS ORDERED: TIZANIDINE 4 MG TABLET PO PRN (16:54)
[2018-11-14] MEDS ORDERED: HYDROCODONE/APAP 10/325 TAB PO PRN (16:54)
[2018-11-14] MEDS ORDERED: ACETAMINOPHEN 500 MG TAB PO PRN (16:54)
[2018-11-14] MEDS ORDERED: NITROGLYCERIN 0.4 MG/TAB SL PRN (16:54)
[2018-11-14] MEDS ORDERED: ONDANSETRON 4 MG/2 ML VIAL IV PRN (16:54)
[2018-11-14] MEDS ORDERED: CLOPIDOGREL 75 MG TABLET PO SCH (17:15)
[2018-11-14 17:19] VITALS: TEMP 98.2
[2018-11-14 17:21] VITALS: BP 211/98
[2018-11-14 17:24] VITALS: O2SAT 98
[2018-11-14] MEDS ORDERED: TRAMADOL HCL 50 MG TAB PO PRN (17:49)
[2018-11-14 17:52] LABS: CKMB Creatine Kinase MB < 1.0 ng/mL (0.3-3.6); Creatine Phosphokinase 63 U/L (39-308); Thyroid Stimulating Hormone 0.564 uIU/mL (0.360-3.740); Troponin I < 0.02 ng/mL (0.0-0.045)
[2018-11-14] MEDS ORDERED: AMLODIPINE 10 MG TAB PO SCH (18:00)
[2018-11-14] MEDS ORDERED: NEBIVOLOL HCL 5 MG TAB PO SCH (18:00)
[2018-11-14] MEDS ORDERED: LISINOPRIL 10 MG TAB PO SCH (18:00)
[2018-11-14] MEDS ORDERED: FONDAPARINUX SOD 7.5 MG/0.6 ML SQ SCH (18:00)
[2018-11-14 20:13] LABS: Urine Blood NEGATIVE (NEG); Urine Glucose NEGATIVE (NEG); Urine Protein NEGATIVE (NEG)
[2018-11-14] MEDS ORDERED: ATORVASTATIN 40 MG TAB PO SCH (21:00)
== END 2018-11-14 17:48 | disposition left against medical advice (07) ==
LOC: ER 09:21 → ERHOLD 12:18 → 2ND 15:54
PROVIDERS: ADMIT Family Medicine; ATTEND Family Medicine
DX: R07.9 Chest pain, unspecified (principal); I25.10 Atherosclerotic heart disease of native coronary artery without angina pectoris; D68.2 Hereditary deficiency of other clotting factors; I10 Essential (primary) hypertension; E78.5 Hyperlipidemia, unspecified; M54.9 Dorsalgia, unspecified; Z79.01 Long term (current) use of anticoagulants; Z95.5 Presence of coronary angioplasty implant and graft; Z86.711 Personal history of pulmonary embolism
CPT/HCPCS: 36415; 71045; 71275; 80048; 80076; 80307; 81003; 82550; 82553; 83735; 83880; 84439; 84443; 84484; 85025; 85610; 93005; 96361; 96374; 99285; G0378; J1652; J3010; J7030; Q9967

== ENCOUNTER 2021-02-12 21:08 | Emergency (ER) | payer BC, SELFPAY ==
--- OUTSIDE RECORDS SUMMARY | 2021-02-12 21:27 | XMS REPORT | Continuity of Care Document ---
:1970 Author Organization [facility] t Address [address] [place] [address] Care Team Providers Name Role Phone EVONNE DALEY Primary Care Physician EDWARD HAMILTON Attending Clinician Unavailable MISAEL PENA Attending Clinician Unavailable Marvin Morales Attending Clinician EMMIE KAPLAN Attending Clinician Unavailable RE Attending Clinician Unavailable MOY MILLER Attending Clinician Unavailable DR Kash NICOLE Attending Clinician Unavailable DR SARA Attending Clinician Unavailable ALFONSO Attending Clinician Unavailable DR PILO Attending Clinician Unavailable LG SMITH Attending Clinician Unavailable DR SUDEEP Attending Clinician Unavailable DR RUPINDER Attending Clinician Unavailable QUENTIN NICHOLSON Attending Clinician Unavailable JAQUI Attending Clinician Unavailable BAYLEE Attending Clinician Unavailable STEFANIA SOTO Attending Clinician Unavailable FLORI LORENZO Attending Clinician Unavailable DR DEX Attending Clinician Unavailable Saar Attending Clinician [facility] Attending Clinician Itzel Ward Attending Clinician DANIEL NEWTON Attending Clinician Unavailable FAUSTO KWONG Attending Clinician Unavailable Toñito Attending Clinician Eduardo Sampson Attending Clinician Clifford Attending Clinician Pilo Attending Clinician Sal Attending Clinician Valentin Holly Jr Attending Clinician Vivian Mariscal Attending Clinician Oscar Horton Attending Clinician Elaine Vyas Attending Clinician Saadia Attending Clinician Shamar Washburn Attending Clinician EDWARD HAMILTON Admitting Clinician Unavailable ANGELICA Admitting Clinician Unavailable OLIVIA ELIAS Admitting Clinician Unavailable RE Admitting Clinician Unavailable MOY MILLER Admitting Clinician Unavailable DR Kash NICOLE Admitting Clinician Unavailable DR SARA Admitting Clinician Unavailable ALFONSO Admitting Clinician Unavailable DR PILO Admitting Clinician Unavailable JHONNY VIZCARRA Admitting Clinician Unavailable DR SUDEEP Admitting Clinician Unavailable DR RUPINDER Admitting Clinician Unavailable TOÑITO OSBORNE Admitting Clinician Unavailable BAYLEE Admitting Clinician Unavailable KALPANA Admitting Clinician Unavailable FLORI LORENZO Admitting Clinician Unavailable DR DEX Admitting Clinician Unavailable DO LAKIA Admitting Clinician Unavailable Sara Admitting Clinician Crystal Admitting Clinician STEFANIA SOTO Admitting Clinician Unavailable Itzel Ward Admitting Clinician DANIEL NEWTON Admitting Clinician Unavailable FAUSTO KWONG Admitting Clinician Unavailable Toñito Admitting Clinician Clifford Admitting Clinician Pilo Admitting Clinician Sal Admitting Clinician Vivian Mariscal Admitting Clinician Oscar Horton Admitting Clinician Elaine Vyas Admitting Clinician Saadia Admitting Clinician Shamar Washburn Admitting Clinician Payers Payer Name Policy Type Policy Number Effective Date Expiration Date S yamileth [employer] [id number] [address] [facility] [address] [facility] Advance Directives Directive Decision Effective Date Termination Date Comments Sour ce Yes N/[facility] Problems Condition Condition Condition Status Onset Resolution Last Treating Co mments Source Name Details Category Date Date Treatment Clinician Date CHEST PAIN Diagnosis Active 2019-2019-10-12 Memoria 10-11 15:19:00 l CHEST 00:00: Puneet PAIN 00 Active 10/11/2019 [facility], [facility], [facility], [facility] Pulmonary Pulmonary Disease Active [facility] embolism embolism 5-10 [facility]: [facility] 00 [facility] Acute Acute Disease Active 2018- [facility] chest pain chest pain 1-23 Sarah kes - 00:00: Medical 00 [facility] Acute Acute Disease Active 2018- [place] blood loss blood loss 3-06 Me thodi anemia anemia 00:00: st 00 Diarrhea Diarrhea Disease Active 2018-0 [place] 3-06 Methodi 00:00: st 00 Fever Fever Disease Active 2018-0 [place] 3-05 Methodi 00:00: st 00 Pulmonary Pulmonary Disease Active 2018-0 [place] [facility] embolism embolism 3-05 Method i without without 00:00: st acute cor acute cor 00 pulmonale pulmonale Chest pain Chest pain Disease Active 2018-0 [place] 2-16 Methodi 00:00: st 00 Chest pain Chest pain Disease Active 2017- [place] in adult in adult 0-24 Method i 00:00: st 00 Chest pain Chest pain Disease Active [facility] of unknown of unknown 02-08 Sarah kes - etiology etiology 00:00: Medica l 00 Center SOB Diagnosis Active 2016-10-11 Mem oria 10-11 18:14:00 l SOB 00:00: Puneet 00 Active 10/11/2016 [facility] Acquired Acquired Disease Active 2015-10 [place] coagulatio coagulatio 11-02 Me thodi n factor n factor 00:00: st deficiency deficiency 00 CAD CAD Disease Active 2015-10 [place] (coronary (coronary 11-02 Meth taz artery artery 00:00: st disease) disease) 00 Heart Heart Disease Active 2015-[address] attack attack 10-11 [facility] 00 Center CHEST Diagnosis Active 2016-03-07 Mem oria PAIN, 03-07 03:55:00 l TACHYCARDI CHEST 00:00: Jennifer nn A PAIN, 00 TACHYCARDI A Active 03/07/2016 [facility] CHEST Diagnosis Active 2016-02-07 Mem oria PAIN, R/O 01-29 22:06:00 l FL, R/O PE CHEST 00:00: Jennifer nn PAIN, R/O 00 [place], R/O PE Active 01/30/2016 [facility] Chest pain Chest pain Disease Active 2014-[address] of 10-14 [facility] - uncertain uncertain 00:00: Medi magdaleno etiology etiology 00 Center History of History of Disease Active [facility] pericardit pericardit 04-12 Sarah kes - is is 00:00: Medical 00 Center CHEST Diagnosis Active 2014-11-19 Mem oria PAIN/HTN 2 14:17:00 l CHEST 00:00: [place] PAIN/HTN 00 Active 11/16/2014 [facility] UNSTABLE Diagnosis Active 2013-102014-07-31 M emoria ANGINA 0- 06:40:00 l UNSTABLE 00:00: Arnulfo n ANGINA 00 Active 07/30/2014 [facility] 722.10,CPT Diagnosis Active 2013-102014-08-09 Memoria -[id number] 0- 15:57:00 l 48 00:00: [place] 722.10,CPT 00 -[id number] Active 4 [facility] LOW BACK Condition Active 2013-102014-07-20 M emoria PAIN 0-09 06:16:00 l LOW BACK 00:00: Arnulfo n PAIN 00 Active 07/19/2014 Condition 4 [facility] LUMBAR HNP Condition Active 2013-102014-07-20 Memoria 0-09 06:16:00 l LUMBAR 00:00: [place] HNP 00 Active 07/19/2014 Condition 4 [facility] LUMBAR Condition Active 2013-102014-07-20 Mem oria STENOSIS 0-09 06:16:00 l LUMBAR 00:00: Puneet STENOSIS 00 Active 07/19/2014 Condition 4 [facility] LUMBAR Condition Active 2013-102014-07-20 Mem oria SPONDYLOSI 0-09 06:16:00 l S W/O LUMBAR 00:00: Puneet MYELOPATHY SPONDYLOSI 00 S W/O MYELOPATHY Active 07/19/2014 Condition 4 [facility] LUMBAR Condition Active 2013-102014-07-20 Mem oria RADICULOPA 0-09 06:16:00 l THY LUMBAR 00:00: [place] RADICULOPA 00 THY Active 07/19/2014 Condition 4 [facility] Low back Problem Active 2013-102019-10-13 Mem oria pain 0-09 22:59:36 l (disorder) Low back 00:00: He rmann pain 00 (disorder) Active 07/19/2014 Problem 10/13/2019 Data migrated from [place] on 06/04/15. [facility], [facility] Lumbar Problem Active 2013-102019-10-13 Memor ia radiculopa 0-09 22:59:36 l thy Lumbar 00:00: Puneet (disorder) radiculopa 00 thy (disorder) Active 07/19/2014 Problem 10/13/2019 Data migrated from [place] on 06/04/15. [facility], [facility] Spinal Problem Active 2013-102019-10-13 Memor ia stenosis 0-09 22:59:36 l of lumbar Spinal 00:00: Jennifer nn region stenosis 00 (disorder) of lumbar region (disorder) Active 07/19/2014 Problem 10/13/2019 Data migrated from [facility] on 06/04/15. [facility], [facility], [facility] PERICARDIT Diagnosis Active 2014-05-21 Memoria IS 8- 07:12:00 l 00:00: Puneet PERICARDIT 00 IS Active 4 [facility] OVERDOSE Diagnosis Active 2012-102013-07-30 M emoria 0- 10:59:00 l OVERDOSE 00:00: Arnulfo n 00 Active 07/30/2013 [facility] ALTERED Diagnosis Active 2012-102014-02-08 Me moria MENTAL 0- 13:02:00 l STATUS, ALTERED 00:00: Arnulfo n POSSIBLE MENTAL 00 TCA OVER STATUS, POSSIBLE TCA OVER Active 07/30/2013 [facility] Pulmonary Pulmonary Disease Active [facility] embolus embolus 12-09 [facility] 00:[facility] 00 Center CHEST PAIN Diagnosis Active 2011-12-29 Memoria [id number] 17:24:00 l CHEST 03:00: Puneet PAIN X1DAY 00 Active 12/29/2011 [facility] CHEST PAIN Diagnosis Active 2012-01-05 Memoria / 12-28 21:47:00 l TACHYCARDI CHEST 03:00: Jennifer nn A PAIN / 00 TACHYCARDI A Active 12/29/2011 [facility] Chest pain Chest pain Disease Active H arris 6-28 Health 00:00: 00 Chest pain Problem Active 2012-01-01 M emoria 06-02 09:06:16 l Chest 00:00: Puneet pain 00 Active 06/02/2010 Problem 01/01/2012 [facility] Chest pain Problem Active 2019-10-13 M emoria (finding) 06-02 22:59:36 l Chest 00:00: [place] pain 00 (finding) Active 06/02/2010 Problem 10/13/2019 [facility], [facility], [facility], [facility] Pain / Problem Active 2012-01-01 Memor ia sensation 04-18 09:06:16 l finding Pain / 00:00: Puneet sensation 00 finding Active 04/18/2010 Problem 01/01/2012 [place] Pain / Problem Active 2019-10-13 Memor ia sensation 7- 22:59:36 l finding Pain / 00:00: [place] (finding) sensation 00 finding (finding) Active 04/18/2010 Problem 10/13/2019 [facility], [facility], [facility], [facility] Anxiety Problem Active 2012-01-01 Kade maude 4- 09:06:16 l Anxiety 00:00: Puneet 00 Active 01/31/2010 Problem 01/01/2012 [place] Hypertensi Problem Active 2012-01-01 M emoria on 01-31 09:06:16 l 00:00: Puneet Hypertensi 00 on Active 0 Problem 2 [place] Sinus Problem Active 2012-01-01 Memor ia tachycardi 01-31 09:06:16 l a Sinus 00:00: Puneet tachycardi 00 a Active 01/31/2010 Problem 01/01/2012 [place] Anxiety Problem Active 2019-10-13 Kade maude (finding) 01-31 22:59:36 l Anxiety 00:00: [place] (finding) 00 Active 01/31/2010 Problem 10/13/2019 [facility], [facility], [facility], [facility] Sinus Problem Active 2019-10-13 Memor ia tachycardi 01-31 22:59:36 l a Sinus 00:00: [place] (finding) tachycardi 00 a (finding) Active 01/31/2010 Problem 10/13/2019 [facility], [facility], [facility], [facility] Chronic Chronic Disease Active [facility] back pain back pain [facility] Hypertensi Hypertensi Disease Active [facility] on on [facility] 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, mutation, Medi magdaleno heterozygo heterozygo Ce nter us us [place] Port-[place]Cat Disease Active C [facility] h in place h in place [facility] Supraventr Supraventr Problem Active [facility] icular icular [facility] - tachycardi tachycardi Me moria a a l (LUF/LI V/SA) LUMBAR LUMBAR Problem Active [facility] SURGERY SURGERY [facility] - Memoria l (LUF/LI V/SA) Factor V Factor V Problem Active [facility] Le[facility] Leiden [facility] - mutation mutation Memori a l (LUF/LI V/SA) Hyperlipid Hyperlipid Problem Active [facility] emia emia [facility] - Mem[facility] l (LUF/LI V/SA) Tachycardi Problem JOSE [facility] a [facility] Shortness Problem KYLER U of breath [facility] Problem Condition KYLER U [facility] Recurrent Problem KYLER U pulmonary S [facility] embol[facility] Factor V Problem CHRISTU deficiency S [facility] Depression Problem Resolve 2019-10-13 Memoria - motion d 22:59:36 l (qualifier Arnulfo n value) Depression - motion (qualifier value) Resolved Problem 10/13/2019 [facility], [facility], [facility], [facility] Pericardit Problem Resolve 2019-10-13 Memoria is d 22:59:36 l (disorder) Arnulfo n Pericardit is (disorder) Resolved Problem 10/13/2019 [facility], [facility], [facility], [facility] Factor V Problem Resolve 2019-10-13 Me moria inhibitor d 22:59:36 l disorder Factor V Herm aristeo (disorder) inhibitor disorder (disorder) Resolved Problem 10/13/2019 [facility], [facility] Backache Problem Active 2019-10-13 Mem oria (finding) 22:59:36 l Backache Arnulfo n (finding) Active Problem 10/13/2019 [facility], [facility], [facility], [facility] Pain Problem Active 2019-10-13 Memor ia (finding) 22:59:36 l Pain [place] (finding) Active Problem 10/13/2019 [facility], [facility], [facility], [facility] Depression Problem Active 2015-04-26 M emoria (emotion)( 08:28:54 l Confirmed) Arnulfo n Depression (emotion)( Confirmed) Active Problem 04/26/2015 [facility], [facility], [facility], [facility] ALTERED Diagnosis Active 2014-02-08 Me moria MENTAL 13:02:00 l STATUS ALTERED Puneet MENTAL STATUS Active [place] CHEST PAIN Diagnosis Active 2015-04-30 Memoria NOS 21:52:00 l CHEST Puneet PAIN NOS Active [facility], [facility], [facility] ANGINA Diagnosis Active 2014-07-31 Mem oria DECUBITUS 06:40:00 l ANGINA Puneet DECUBITUS Active [facility] LUMBAR Diagnosis Active 2014-08-09 Mem oria DISC 15:57:00 l DISPLACEME LUMBAR Herm aristeo NT DISC DISPLACEME NT Active [facility] MALIGN Diagnosis Active 2014-07-31 Mem oria NEOPL 06:40:00 l BREAST NOS MALIGN Herm aristeo NEOPL BREAST NOS Active [place] RHEUMATOID Diagnosis Active 2014-07-31 Memoria ARTHRITIS 06:40:00 l Puneet RHEUMATOID ARTHRITIS Active [facility] 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 2014-07-31 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 06:40:00 l STAT ESTROGEN Arnulfo n 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 PSTV STAT Active [place] TACHYCARDI Diagnosis Active 2016-03-07 Memoria A, 03:55:00 l UNSPECIFIE Arnulfo n D TACHYCARDI A, UNSPECIFIE D Active [facility] FEVER Diagnosis Active 2016-09-17 Mem oria 12:43:00 l FEVER [place] Active [place] ILLNESS, Diagnosis Active 2016-11-26 M emoria UNSPECIFIE 15:23:00 l D ILLNESS, Arnulfo n UNSPECIFIE D Active [facility] CHEST Diagnosis Active 2017-10-19 Mem oria PAIN, 21:59:00 l UNSPECIFIE CHEST Jennifer nn D PAIN, UNSPECIFIE D Active [facility], [facility], [place] Depressive Problem Resolve 2012-102019-10-13 2019-10-13 Memoria disorder d 0-20 22:59:36 22:59:36 l (disorder) 00:00: Arnulfo gabriel Depressive 00 disorder (disorder) Resolved 07/30/2013 Problem 10/13/2019 [facility], [facility], [facility] History of Past Illness Condition Condition Condition Status Onset Resolution Last Treating Co mments Source Name Details Category Date Date Treatment Clinician Date Discharge Problem 2016-10-14 2016-10-14 Memoria Diagnosis: 10-11 01:38:22 01:38:22 l Recurrent 06:00: Puneet chest pain Discharge 00 Diagnosis: Recurrent chest pain 10/11/2016 10/14/2016 [facility] Allergies, Adverse Reactions, Alerts Allergy Allergy Status Severity Reaction(s) Onset Inactive Treating Comm ents Source Name Type Date Date Clinician zolpidem DA Active [place] [facility] tartrate 3-28 [place] 00:00: d 00 [facility] morphine DA Active U 0 [facility] 3-28 [place] 00:00: d 00 [facility] ketorola DA Active [place] 0 [facility] c 3-28 [place] 00:00: d 00 [facility] morphine DA Active U 2017-10 [facility] 2-17 [place] 00:00: d 00 [facility] zolpidem DA Active [place] 2017-10 [facility] tartrate 1-20 [place] 00:00: e 00 Medical [facility] ketorola DA Active [place] 2017- [facility] c 1-20 [place] 00:00: e 00 [facility] Morphine Allergy Active Mild 2018-[address] [facility] to 3-27 [facility] Substanc 00:00: Patient e 00 [facility] Oxymetaz Allergy Active Mild 2018-[address] [facility] oline to 3-27 [facility] Substanc 00:00: Patient e 00 [facility] Ketorola Allergy Active Mild 2018-[address] [facility] c to 3-27 [facility] Substanc 00:00: Patient e 00 [facility] zolpidem DA Active [place] 2018-0 [facility] tartrate 2-21 Clear 00:00: Mackey 00 [facility] ketorola DA Active [place] 2018-0 [facility] c 2-21 Clear 00:00: Mackey 00 [facility] Morphine Propensi Active Rash 2016-10 [place] ty to 0-23 out. Methodi adverse 00:00: st reaction 00 s to drug [place] Propensi Active Hives [place] ty to 5-12 Methodi Trometha adverse 00:00: st mine reaction 00 s to drug Zolpidem Propensi Active Moderate Other [place] Tartrate ty to 12 reaction( Metho di adverse 00:00: s): st reaction 00 sleepwalk s to drug Morphine Allergy Active [facility] to 1-[address] [facility]anc 00:00: Aleks e 00 [facility]ospita [facility] Zolpidem Allergy Active [facility] to 1-[address] substanc 00:00: Aleks e 00 Hospita l Ketorola Allergy Active [facility] c to 1-[address] substanc 00:00: Aleks e 00 Hospita l Morphine Drug Active Rash [facility] Allergy 3 [facility] 00 Center torsemid torsemid Active 2013-10 Memori a e<sup>1< e<sup>1< 0-08 l /sup> /sup> 05:00: Puneet 00 zolpidem zolpidem Active 2013-10 Memori a <sup>2</ <sup>2</ 0-08 l sup> sup> 05:00: [place] 00 AMBIEN AMBIEN Active 2013-10 Memoria 0-08 l 00:00: Puneet 00 TORSEMID TORSEMID Active 2013-10 Memori a E E 0-08 l 00:00: [place] 00 [place] Drug Active Rash 2011-[address] [facility] c Allergy 2-03 take [facility] - 00:00: other Medical 00 NSAIDs Center like motrin and aleve Zolpidem Propensi Active Abreu ty to 05-23 Health adverse 00:00: reaction 00 s to drug Morphine Propensi Active Rash Pt only Harri s ty to 05-23 has a Health adverse 00:00: rash with reaction 00 morphine s to but drug denies any swelling, SOB, or other reactions [place] Propensi Active Abreu c ty to 05-23 Health Trometha adverse 00:00: mine reaction 00 s to drug [place] Propensi Active Hives, Rash RashesOt h Owen c ty to 05-23 er Methodi adverse 00:00: reaction( st reaction 00 s): s to Ketorolac drug Able to take other NSAIDs like motrin and aleveAble to take other NSAIDs like motrin and aleve Zolpidem Drug Active Other (See Sleep [facility] Allergy Comments) 8-13 walkPer [facility] - 00:00: patient Medical 00 "Sleep Center Walking". Zolpidem Propensi Active Anxiety Sleep [place] ty to 3-15 walk.Othe Methodi adverse 00:00: r st reaction 00 reaction( s to s): drug Hallucina tions, Other (See Comments) , Sleep walking, sleepwalk , ZolpidemS leep walkPer patient "Sleep Walking". Sleep walkSleep walkingSl eep walk Zolpidem Allergy Active Mild [facility] to 12-23 [facility] - Substanc 00:00: Patient e 00 [facility] Xylometa Allergy Active Mild 2007-[address] [facility] [facility]oline [facility] 10[facility]:00: Patient e 00 [facility] Ambien Ambien Active Memoria l [place] morphine morphine Active Memori a l Puneet Christopher-Syne Christopher-Syne Active Memori a phrine phrine l [place] pseudoep pseudoep Active Memori a hedrine hedrine l [place] Toradol Toradol Active Memoria l [place] Family History Family Member Diagnosis Comments Start Date Stop Date Source Natural mother Heart disease [place] [facility] Natural mother Heart disease [facility] Natural mother Hyperlipidemia [facility] Natural mother Hypertension [facility] Natural mother Unremarkable [facility] Natural mother Vision loss [facility] Natural father Factor V Leiden [place] deficiency Natural father Vision loss [facility] Natural father Hyperlipidemia [facility] Natural father Hypertension [facility] Natural father Unremarkable [facility] Maternal aunt Vision loss [facility] Natural sister Hyperlipidemia [facility] Natural sister Hypertension [facility] Natural sister Vision loss [facility] Natural brother Vision loss [facility] Social History Social Habit Start Date Stop Date Quantity Comments Source History SDOH [place] Meth odist Alcohol Std Drinks History SDOH [place] Meth odist Alcohol Binge Sex Assigned At [facility] Tobacco use and 2020-01-28 2020-01-[address] Sarah kes - exposure 00:00:00 00:00:00 Medical Center Alcohol intake 2020-01-28 2020-01-[address] Fe es - 00:00:00 00:00:00 non-drinker of Medical Ce nter alcohol (finding) History SDSC 2019-06-06 2019-06-06 1 [place] Meth odist Alcohol Frequency 00:00:00 00:00:00 Social History 2016-04-12 2016-04-12 [facility] 05:34:19 05:34:19 Smoking Status Start Date Stop Date Source Tobacco smoking consumption [facility] Never sm[facility] Medications Ordered Filled Start Stop Current Ordering Indication Dosage Frequency Signature Comments Components Source Medication Medication Date Date Medication? Clinician (SIG) Name Name clopidogrel 2019-0 Yes 75mg QD Take [address] (PLAVIX) 75 4-19 by mouth Luke s - mg tablet 19:07: daily . Medic al 40 [facility] lisinopril 2019-0 Yes 10mg QD Take [address] (PRINIVIL,Z 4-19 by mouth Luke s - ESTRIL) 5 19:07: daily . Medic al MG tablet 40 Center nebivolol 2019-0 Yes 10mg QD Take [address] (BYSTOLIC) 4-19 by mouth [facility] - 10 MG 19:07: daily. Medical tablet 40 Center atorvastati 2019-0 Yes 40mg QD Take [address] n (LIPITOR) 4-19 by mouth Luke s - 40 MG 19:07: nightly. Medical tablet 40 [facility] fondaparinu 2019-0 Yes 7.5mg QD Inject 7.[address] x (ARIXTRA) 4-19 mg [facility] - 7.5 mg/0.6 19:07: subcutaneo M edical mL Syrg 40 usly Center injection daily. ranolazine 2019-0 Yes 500mg Q.5D Take [address] (RANEXA) 4-19 mg by [facility] - 500 MG 12 19:07: mouth 2 Medic al hr tablet 40 (two) Center times daily. nitroglycer 2019-[address] 0[address] in 4-19 mg under [facility] - (NITROSTAT) 19:07: the tongue Medical 0.4 MG SL 40 every 5 Center tablet (five) minutes as needed for Chest pain Put 1 pill under tongue every 5min as needed for chest pain.No more than 3 doses in 15min.Call 911 if pain is unrelieved 5min after 1st dose . clopidogrel 2019-0 Yes 75mg QD Take 75 mg [facility] (PLAVIX) 75 8-27 by mouth Meth taz mg tablet 00:40: every st 47 morning. atorvastati 2019-0 Yes 40mg QD Take 40 mg [facility] n (LIPITOR) 8-27 by mouth Meth taz 40 MG 00:40: nightly. st tablet 47 HYDROcodone 2019-0 Yes 1{tbl} Q4H Take 1 [place] -acetaminop 8-27 tablet by Met graciela gusman (NORCO) 00:40: mouth st 10-325 mg 47 every 4 per tablet (four) hours as needed for moderate pain. fondaparinu 2018-0 Yes 7.5mg QD Inject 7.5 Weaver x (ARIXTRA) 8-27 mg under Meth taz 7.5 mg/0.6 00:40: the skin st mL syringe 47 every morning. tiZANidine 2018-0 Yes 8mg Q6H Take 8 mg [place] (ZANAFLEX) 8-27 by mouth Metho di 4 MG tablet 00:40: every 6 st 47 (six) hours as needed for muscle spasms. buprenorphi 2018-0 Yes 300ug Q.5D Apply 300 Weaver ne HCl 8-27 mcg to [facility] (BELBUCA) 00:40: cheek 2 st 300 mcg 47 (two) film times a day. lisinopril 2019-0 Yes 5mg QD Take 5 mg Ho uskimmie (PRINIVIL,Z 8-27 by mouth Meth taz ESTRIL) 5 00:40: every st mg tablet 47 morning. nitroglycer 2019-[address] 0.4 [place] in 8-27 mg under [facility] (NITROSTAT) 00:40: the tongue st 0.4 MG SL 47 every 5 tablet (five) minutes as needed. promethazin 2017-0 Yes 25mg Q4H Take 25 mg Weaver e 2-07 by mouth [facility] (PHENERGAN) 00:00: every 4 st 25 MG 00 (four) tablet hours as needed. BYSTOLIC 20 Yes 20mg QD Take 20 mg Weaver mg tablet 2-07 by mouth Method i 00:00: every st 00 morning. Docusate No Notes: Memoria 10-11 (Same as: l 23:00: Colace) [place] (Do Not Crush) Ondansetron No Notes: Kade maude 10-11 (Same as: l 21:19: Zofran) [place] MEDICATION WASTE Product Size: 4 mg Product Wasted: ___ mg enoxaparin Yes 80 mg, Memor ia 80 mg/0.8 2-10 SUB-Q, l mL 16:44: Q12H, 0 [place] subcutaneou 00 Refill(s) s solution simvastatin Yes 20 mg = 1 M emoria 20 mg oral 2-10 tab, PO, l tablet 11:54: Bedtime, # Jennifer nn 00 30 tab, 1 Refill(s) clopidogrel Yes 75 mg = 1 M emoria 75 MG Oral 2-10 tab, PO, l Tablet 11:54: Daily, # Puneet [Plavix] 00 30 tab, 0 Refill(s) Acetaminoph Yes 1 tab, PO, Memoria en 325 MG / 2-10 Q4H, PRN l Hydrocodone 11:54: for pain, H ermann Bitartrate 00 # 24 tab, 10 MG Oral 0 Tablet Refill(s) [[place] 10/325] heparin No 500 mL, Memoria additive 2-10 Rate: l 25,000 unit 11:23: 26.06 Jennifer nn [18 00 ml/hr, unit/kg/hr] Infuse + Premix over: 19.2 Diluent hr, Route: Dextrose 5% IVPB, 500 mL Dosing Weight 72.39 kg, Total Volume: 500 mL, Start date: 11/20/16 5:23:00 [employer], Duration: 30 day, Stop date: 12/20/16 5:22:00 CDT Heparin 40 No Pharmacy Mem oria unit/kg 2-10 To Manage, l Bolus 11:23: Route: Puneet (Heparin 00 IVP, PRN, Dosing Drug form: Weight) INJ, PRN, Heparin Protocol, Start date: 11/20/16 5:23:00 [employer] Stop date: 12/20/16 6:22:00 CDT, 30 day Heparin 80 No Pharmacy Mem oria unit/kg 2-10 To Manage, l Bolus 11:23: Route: [place] (Heparin 00 IVP, PRN, Dosing Drug form: Weight) INJ, PRN, Heparin Protocol, Start date: 11/20/16 5:23:00 [employer] Stop date: 12/20/16 6:22:00 CDT, 30 day Dilaudid No Notes: Memoria 2-10 Same as: l 11:05: Dilaudid Puneet Eliquis 2014-10 No Notes: Memoria 2-05 Same as: l 03:00: Eliquis Puneet Zanaflex 2014-10 No Notes: Memoria 2-04 (Same As: l 20:57: Zanaflex) Puneet Oxycontin 2014-10 No Notes: Do Mem oria 2-04 not crush l 20:57: or chew. [place] 00 (Same as: OxyContin) Eliquis 2014-10 Yes 5 mg, PO, Memor ia 2-04 Q12H, 0 l 20:34: Refill(s) Puneet 00 Sodium 2014-10 No 1,000 mL, Memori a Chloride 2-04 Rate: 125 l 0.154 20:12: ml/hr, Puneet MEQ/ML 00 Infuse Injectable over: 8 Solution hr, Route: IV, Dosing Weight 81.818 kg, Total Volume: 1,000, Start date: 09/13/15 14:12:00, Duration: 30 day, Stop date: 10/13/15 14:11:00 Saline 2014-10 No Notes: Memoria Flush 0.9% 2-04 (Same as: l 20:12: BD [place] Posiflush) Docusate 2014-10 No Notes: Memoria 2-04 (Same as: l 20:12: Colace) Puneet 00 (Do Not Crush) Ondansetron 2014-10 No Notes: Kade maude 2-04 (Same as: l 20:12: Zofran) Puneet 00 MEDICATION WASTE Product Size: 4 mg Product Wasted: _0__ mg Acetaminoph 2014-10 No Notes: Kade maude en 325 MG / 2- (Same as: l Hydrocodone 20:12: [place] Jennifer nn Bitartrate 00 325/5) Do 5 MG Oral not exceed Tablet 4gm/day of acetaminop hen. Acetaminoph 2014-10 No Notes: Do M emoria en 04 not exceed l 20:12: 4 gm/day. Puneet 00 (Same as: Tylenol) heparin, No 500 unit, Kade maude porcine 7-14 Route: IV l 14:13: Lock, PRN, Puneet Dosing Weight 81.818, kg, PRN Line Flush, Start date: 04/23/15 9:13:00, Duration: 30 day, Stop date: 05/23/15 9:12:00 Cardizem Yes 30 mg, PO, Mem oria 7-14 TID, 0 l 12:28: Refill(s) Xarelto Yes 20 mg, PO, Kade maude 7-14 QPM, 0 l 12:28: Refill(s) Zanaflex Yes 8 mg, PO, Kade maude 7-14 Q6H, PRN l 12:28: as needed Puneet 00 for muscle spasm, 0 Refill(s) Oxycontin Yes 10 mg, PO, Me moria 7-14 Q4H, PRN l 12:28: Pain Score 4-6, 0 Refill(s) Protonix No Notes: Memoria 2-07 Tablet l 22:30: should not be chewed or crushed. (Same as: Protonix) aspirin No Notes: Memoria 2-07 Take with l 15:00: food. [place] Colchicine No 0.6 mg, 1 Me moria 0.6 MG Oral 11-17 tab, l Tablet 15:00: Route: PO, Jennifer nn 00 Drug form: TAB, BID, Dosing Weight 79.2, kg, Start date: 11/17/14 9:00:00, Duration: 30 day, Stop date: 12/16/14 17:00:00 Docusate No Notes: Memoria 2-07 (Same as: l 15:00: Colace) [place] 00 (Do Not Crush) Zanaflex No Notes: Memoria 2-07 (Same As: l 01:13: Zanaflex) Puneet 00 Acetaminoph No Notes: Do M emoria en 325 MG / 2 not exceed l Hydrocodone 00:40: 4gm/day of [place] Bitartrate 00 acetaminop 10 MG Oral hen. Tablet (Same as: [[place] 10/325] 325/10) tramadol No Notes: Not Mem oria hydrochlori 11-17 to exceed l de 50 MG 00:26: 400mg/day. Her jones Oral Tablet 00 (Same As: [Ultram] Ultram) Valium No Route: PO, Memor ia 11-17 Drug form: l 00:26: TAB, Q4H, Puneet 00 Dosing Weight 79.2, kg, PRN Muscle Spasms, Start date: 11/16/14 18:26:00, Stop date: 12/16/14 18:25:00 Enoxaparin No Notes: Memor ia 11-17 (Same as: l 00:00: Lovenox) Puneet 00 Acetaminoph Yes 1 tab, PO, Memoria en 325 MG / 2-06 5X Day, 0 l Hydrocodone 23:16: Refill(s) H ermann Bitartrate 00 10 MG Oral Tablet [[place] 10/325] Zanaflex Yes 8 mg, PO, Kade maude 2-06 Q6H, 0 l 23:16: Refill(s) Ondansetron No Notes: Kade maude 2-06 (Same as: l 23:03: Zofran) [place] 00 Morphine No Notes: Memoria 2-06 (Same l 23:03: as:MORPhin [place] 00 e Sulfate) Acetaminoph No Notes: Kade maude en 325 MG / 2-06 (Same as: l Hydrocodone 23:03: [place] Jennifer nn Bitartrate 00 325/5) Do 5 MG Oral not exceed Tablet 4gm/day of acetaminop hen. Sodium No 25 mL, Memoria Chloride 2-06 Route: IV, l 0.9% IV 23:02: Start [place] 00 date: 11/16/14 17:02:00, Duration: 30 day, Stop date: 12/16/14 18:01:00, PRN Line Flush BD Normal No Notes: Memori a Saline 2-06 (Same as: l Flush 23:02: BD Puneet 00 Posiflush) Prednisone 2013-10 No Notes: Memor ia 0-28 Take with l 14:00: food. [place] 00 Colchicine 2013-10 No 0.6 mg, 1 Me moria 0.6 MG Oral 0-28 tab, l Tablet 14:00: Route: PO, Jennifer nn 00 Drug form: TAB, Daily, Dosing Weight 80, kg, Start date: 08/07/14 9:00:00, Duration: 30 day, Stop date: 09/05/14 9:00:00 heparin, 2013-10 No Notes: Memoria porcine 0-28 porcine l 11:00: heparin Puneet Labetalol 2013-10 No Notes: Memori a 0-28 With food. l 02:00: (Same Puneet 00 as:Trandat e, Normodyne) ceFAZolin 2013-10 No Notes: Memori a (SCIP) + 0-28 (Same As: l Sodium 01:00: Ancef, [place] Chloride 00 Kefzol) 0.9% IV 100 mL pantoprazol 2013-10 No Notes: Kade maude e 0-27 Tablet l 21:30: should not [place] 00 be chewed or crushed. (Same as: Protonix) Protonix 2013-10 No Notes: Memoria 0-27 Tablet l 21:30: should not [place] 00 be chewed or crushed. (Same as: Protonix) Zofran 2013-10 No 4 mg, Memoria 0-27 Route: l 21:00: IVP, Drug form: INJ, Q4H, Dosing Weight 80, kg, If N/V refractory to first dose of Zofran IVP, patient may receive an additional 4mg IVP dose of Zofran per Dr. Holly, Start date: 08/06/14 16:00:00, Duration: 30 day, Stop date: 09/05/14 12... 10 ML 2013-10 No Notes: Memoria Cefazolin 0-27 (Same As: l 100 MG/ML 21:00: Ancef, Arnulfo n Prefilled 00 Kefzol) Syringe benzocaine- 2013-10 No Notes: Kade maude menthol 0-27 Same as: l topical 20:50: Cepacol Diazepam 5 2013-10 Yes 1-2, PO, Mem oria MG Oral 0-27 Q4H, as l Tablet 20:31: needed for Jennifer nn [Valium] 37 muscle spasms, # 30 tab, 4 Refill(s) tramadol 2013-10 Yes 50 mg = 1 Kade maude hydrochlori 0-27 tab, PO, l de 50 MG 20:31: Q6H, as Arnulfo n Oral Tablet 30 needed for [Ultram] pain, # 30 tab, 0 Refill(s) Docusate 2013-10 Yes 100 mg = 1 Mem oria Sodium 100 0-27 cap, PO, l MG Oral 20:31: BID, # 90 Jennifer nn Capsule 28 cap, 1 [Colace] Refill(s) Hydromorpho 2013-10 No Notes: Kade maude ne 0-27 (Same as: l 20:30: Dilaudid) Diazepam 2013-10 No Notes: Memoria 0-27 (Same as: l 20:30: Valium) Zofran 2013-10 No Notes: Memoria 0-27 (Same as: l 20:30: Zofran) LR IV 500 2013-10 No 500 mL, Memor ia mL 0- Rate: 125 l 20:30: ml/hr, Infuse over: 4 hr, Route: IV, Dosing Weight 80 kg, Total Volume: 500, Start date: 08/06/14 15:30:00, Duration: 30 day, Stop date: 09/05/14 15:29:00 Reglan 2013-10 No Notes: Memoria 0-27 (Same as: l 20:30: Reglan) Acetaminoph 2013-10 No Notes: Do M emoria en 0-27 not exceed l 20:30: 4 gm/day. (Same as: Tylenol) Phenergan 2013-10 No 25 mg, 50 Mem oria 0-27 mL, Route: l 20:30: IVP [place] 00 Central, Drug form: SOLN, Q4H, Dosing Weight 80, kg, PRN Nausea & Vomiting, If N/V refractory to Zofran and Reglan,juan benitez may receive Phenergan IVP per Dr. Holly, Start date: 08/06/14 15:30:00, Duration: 30 day, Stop date: ... Cepacol 2013-10 No 1 lozenge, Kade maude Lozenge 0-27 Route: l 20:30: MUCOUS Puneet 00 MEM, Q6H, Drug form: JOSIAH, PRN Sore Throat, Start date: 08/06/14 15:30:00, Duration: 30 day, Stop date: 09/05/14 15:29:00 Phenergan 2013-10 No 12.5 mg, Kade maude 0-27 Route: l 19:36: IVPB, Puneet 00 ONCE, Dosing Weight 80, kg, PRN Nausea & Vomiting, Start date: 08/06/14 14:36:00, Stop date: 09/05/14 15:35:00 Calcium 2013-10 No 1,000 mL, Memor ia Chloride 0 Rate: 25 l 0.0014 16:42: ml/hr, [place] MEQ/ML / 00 Infuse Potassium over: 40 Chloride hr, Route: 0.004 IV, Dosing MEQ/ML / Weight 80 Sodium kg, Total Chloride Volume: 0.103 1,000, MEQ/ML / Start Sodium date: Lactate 08/06/14 0.028 11:42:00, MEQ/ML Duration: Injectable 30 day, Solution Stop date: 09/05/14 11:41:00 Demerol HCl 2013-10 No Notes: Kade maude 0-27 (Same as: l 16:42: Demerol) Cuero 00 "Use Precaution in Elderly, Seizure disorders, and Renal impairment " Phenergan 2013-10 No Notes: Do Mem oria 0-27 not give l 16:42: IV push. [place] 00 (Same as: Phenergan) Naloxone 2013-10 No Notes: Memoria 0-27 Same as l 16:42: Narcan Ondansetron 2013-10 No Notes: Kade maude 0-27 (Same as: l 16:42: Zofran) [place] 00 Acetaminoph 2013-10 No Notes: Kade maude en 0-27 Infuse l 16:42: over 15 [place] 00 minutes Do not exceed 4gm/day of acetaminop hen Oxycodone 2013-10 No Notes: Memori a 0-27 (Same as: l 16:42: OxyIR) Puneet 00 Hydromorpho 2013-10 No Notes: Kade maude ne 0-27 Same as: l 16:42: Dilaudid Meperidine 2013-10 No Notes: Memor ia 0-27 (Same as: l 16:42: Demerol) Puneet 00 "Use Precaution in Elderly, Seizure disorders, and Renal impairment " Flumazenil 2013-10 No Notes: Memor ia 0-27 (Same as: l 16:42: Romazicon) Puneet 00 Morphine 2013-10 No Notes: Memoria 0-27 (Same l 16:42: as:MORPhin Puneet 00 e Sulfate) Docusate 2013-10 No 100 mg = 1 Mem oria Sodium 100 0-27 cap, PO, l MG Oral 13:29: BID, # 90 Jennifer nn Capsule 00 cap, 1 [Colace] Refill(s) Diazepam 5 2013-10 No 1-2, PO, Mem oria MG Oral 0-27 Q4H, as l Tablet 13:29: needed for Jennifer nn [Valium] 00 muscle spasms, # 30 tab, 4 Refill(s) tramadol 2013-10 No 50 mg = 1 Kade maude hydrochlori 0-27 tab, PO, l de 50 MG 13:29: Q6H, as Arnulfo n Oral Tablet 00 needed for [Ultram] pain, # 30 tab, 0 Refill(s) Lidocaine 2013-10 No Notes: Memori a Hydrochlori 0-27 Preservati l de 10 MG/ML 13:00: ve free. He rmann Injectable 00 (Same as: Solution Xylocaine [Xylocaine] MPF) Lactated 2013-10 No 1,000 mL, Kade maude Ringers IV 0-27 Rate: 100 l 1,000 mL 12:16: ml/hr, [place] Infuse over: 10 hr, Route: IV, Dosing Weight 80 kg, Total Volume: 1,000, Start date: 08/06/14 7:16:00, Duration: 12 hr, Stop date: 08/06/14 19:15:00 Lactated 2013-10 No 1,000 mL, Kade maude Ringers 0-27 Rate: 70 l Injection 11:00: ml/hr, Arnulfo n IV 1,000 mL 00 Infuse over: 14.3 hr, Route: IV, Dosing Weight 80 kg, Total Volume: 1,000, Start date: 08/06/14 6:00:00, Duration: 12 hr, Stop date: 08/06/14 17:59:00 ceFAZolin 2013-10 No 2 gm, 50 Kade maude 0-27 mL, Route: l 11:00: IVPB, Drug form: INJ, PRE OP, Start date: 08/06/14 6:00:00, Duration: 12 hr, Stop date: 08/06/14 17:59:00 Protonix 2013-10 No Notes: Memoria 0-22 Same as: l 21:30: Protonix Mix in 5 mL apple juice or applesauce for oral & 10mL apple juice for NG tube sodium 2013-10 No Notes: Memoria chloride 0-22 preservati l 19:05: ve free. Puneet 00 heparin 2013-10 No Notes: Memoria flush 0-22 (Same as: l 19:05: Heparin [place] 00 Lock Flush) pantoprazol 2013-10 Yes 40 mg = 1 M emoria e 40 MG 0-22 tab, PO, l Enteric 17:01: Daily, # Arnulfo n Coated 00 30 tab, 0 Tablet Refill(s) [Protonix] predniSONE 2013-10 Yes 20 mg = 1 Me moria 20 mg oral 0-22 tab, PO, l tablet 17:01: Daily, # 7 Jennifer nn 00 tab, 0 Refill(s) Colchicine 2013-10 No 0.6 mg, 1 Me moria 0.6 MG Oral 0-22 tab, l Tablet 14:00: Route: PO, Jennifer nn 00 Drug form: TAB, Daily, Dosing Weight 79.545, kg, Start date: 08/01/14 9:00:00, Duration: 30 day, Stop date: 08/30/14 9:00:00 heparin, 2013-10 No Notes: Memoria porcine 0-22 (Same as: l 13:14: Heparin Puneet 00 Lock Flush) Indocin 2013-10 No Notes: Memoria 0-21 (Same as: l 18:00: Indocin) Puneet 00 Take with food Labetalol 2013-10 No Notes: Memori a 0-21 With food. l 17:00: (Same as:Trandat e, Normodyne) Zanaflex 2013-10 No Notes: Memoria 0-21 (Same As: l 16:16: Zanaflex) Prednisone 2013-10 No Notes: Memor ia 0-21 Take with l 14:00: food. Colchicine 2013-10 No 0.6 mg, 1 Me moria 0.6 MG Oral 0-21 tab, l Tablet 14:00: Route: PO, Jennifer Drug form: TAB, Daily, Dosing Weight 79.545, kg, Start date: 07/31/14 9:00:00, Duration: 30 day, Stop date: 08/29/14 9:00:00 heparin, 2013-10 No Notes: Memoria porcine 0-21 porcine l 13:00: heparin aspirin 2013-10 No Notes: Memoria 0-21 Take with l 08:00: food. nitroglycer 2013-10 No Notes: Kade maude in 0.4 mg 0-21 (Same l sublingual 07:52: as:Nitroqu H ermann tablet 00 ick, Nitrostat) "Do Not Crush" Sublingual tablet atropine 2013-10 No 0.5 mg, 5 Kade maude 0-21 mL, Route: l 07:52: IVP, Drug form: INJ, PRN, PRN Bradycardi a, Start date: 07/31/14 2:52:00, Duration: 30 day, Stop date: 08/30/14 1:51:00 Dilaudid 2013-10 No 0.5 mg, Memori a 0-21 0.5 mL, l 07:36: Route: IV, Drug form: INJ, Q3H, Dosing Weight 79.545, kg, PRN Pain Score 7-10, Start date: 07/31/14 2:36:00, Duration: 30 day, Stop date: 08/30/14 2:35:00 Ondansetron 2013-10 No Notes: Kade maude 0-21 (Same as: l 07:15: Zofran) Puneet Acetaminoph 2013-10 No Notes: Kade maude en 325 MG / 0-21 (Same as: l Hydrocodone 07:15: [place] Jennifer nn Bitartrate 00 325/5) Do 5 MG Oral not exceed Tablet 4gm/day of acetaminop hen. Labetalol 2013-10 No Notes: Memori a 0-08 With food. l 22:00: (Same Puneet 00 as:Trandat e, Normodyne) aspirin 81 2013-10 No Notes: Do Me moria mg tablet, 0-08 not crush l enteric 22:00: or chew. Arnulfo n coated 00 (Same As: Ecotrin) Colchicine 2013-10 No 0.6 mg, 1 Me moria 0.6 MG Oral 0-08 tab, l Tablet 17:00: Route: PO, Jennifer nn 00 Drug form: TAB, Daily, Dosing Weight 82.273, kg, Start date: 07/18/14 12:00:00, Duration: 30 day, Stop date: 08/17/14 9:00:00 Aspirin 81 2013-10 Yes 324 mg = 4 M emoria MG Enteric 0-08 tab, PO, l Coated 15:50: BID, # 100 Jennifer nn Tablet 00 tab, 0 Refill(s) Colchicine 2013-10 Yes 0.6 mg = 1 M emoria 0.6 MG Oral 0-08 tab, PO, l Tablet 15:50: Daily, # [place] 00 30 tab, 0 Refill(s) Acetaminoph 2013-10 No Notes: Do M emoria en 325 MG / 0-08 not exceed l Hydrocodone 15:47: 4gm/day of Puneet Bitartrate 00 acetaminop 10 MG Oral hen. Tablet (Same as: [[place] 10/325] 325/10) Zanaflex 2013-10 No Notes: Memoria 0-08 (Same As: l 15:47: Zanaflex) Puneet aspirin 81 2013-10 No Notes: Do Me moria mg tablet, 0-08 not crush l enteric 15:00: or chew. Arnulfo n coated 00 (Same As: Ecotrin) Dilaudid 2013-10 No Notes: Memoria 0-08 (Same as: l 14:23: Dilaudid) Aspirin 81 2013-10 No Notes: Do Me moria MG Enteric 0-08 not crush l Coated 14:00: or chew. (Same As: Ecotrin) Dilaudid 2013-10 No Notes: Memoria 0-08 (Same as: l 03:38: Dilaudid) Saline 2013-10 No Notes: Memoria Flush 0.9% 0-08 Same as: l 02:00: BD Posiflush Sterile Saline 2013-10 No Notes: Memoria Flush 0.9% 0-08 Same as: l 00:12: BD Posiflush Sterile Nitroglycer 2013-10 No Notes: Kade maude in 0-08 (Same l 00:12: as:Nitroqu ick, Nitrostat) "Do Not Crush" Sublingual tablet Morphine 2013-10 No Notes: Memoria 0-08 (Same l 00:12: as:MORPhin e Sulfate) Ondansetron 2013-10 No Notes: Kade maude 0-08 (Same as: l 00:12: Zofran) NORCO 2013-10 Yes 1 PO Q 4 Memoria 10-325 MG 0-08 hrs PRN l TABS 00:00: ZANAFLEX 4 2013-10 Yes 2 tabs Q 6 M emoria MG CAPS 0-08 hrs PRN l 00:00: LABETALOL 2013-10 Yes 1 PO BID Kade maude HCL 100 MG 0-08 l TABS 00:00: aspirin 2013-10 No Notes: Memoria 0-07 Take with l 23:35: food. labetalol 2013-10 Yes 100 mg = 1 Me moria 100 mg oral 0-07 tab, PO, l tablet 23:30: BID Hydromorpho 2013-10 No 0.5 mg, Mem oria ne 0-07 Route: l 22:09: IVP, ONCE, Dosing Weight 84.091, kg, Priority: STAT, Start date: 07/17/14 17:09:00, Stop date: 07/17/14 17:09:00 Omnipaque 2013-10 No Notes: Memori a 350 0-07 (same l 22:00: as:Omnipaq Cuero ue 350). Reglan 2013-10 No 10 mg, Memoria 0-07 Route: l 21:13: IVP, Drug [place] 00 form: INJ, ONCE, Dosing Weight 84.091, kg, Priority: STAT, Start date: 07/17/14 16:13:00, Stop date: 07/17/14 16:13:00 Metoprolol 2013-10 No 5 mg, Memori a 0-07 Route: l 20:04: IVP, Drug Cu[place] 00 form: INJ, ONCE, Dosing Weight 84.091, kg, Priority: STAT, Start date: 07/17/14 15:04:00, Stop date: 07/17/14 15:04:00 Sodium 2013-10 No 500 mL, Memoria Chloride 0-07 500 ml/hr, l 0.154 19:51: Infuse Puneet MEQ/ML 00 Over: 1 Injectable hr, Route: Solution IV, 500, Drug form: INJ, ONCE, Priority: STAT, Dosing Weight 84.091 kg, Start date: 07/17/14 14:51:00, Duration: 1 doses or times, Stop date: 07/17/14 14:51:00 Adenosine 2013-10 No Notes: Memori a 0-07 Rapid IV l 19:51: PUSH over Cu[place] 00 1-2 sec; Flush line immediatel y after drug is given. Dilaudid 2013-10 No 0.5 mg, Memori a 0-07 Route: l 19:51: IVP, ONCE, Puneet 00 Dosing Weight 84.091, kg, Priority: STAT, Start date: 07/17/14 14:51:00, Stop date: 07/17/14 14:51:00 Tylenol 2013-10 No Notes: Do Memor ia 0-07 not exceed l 19:24: 4 gm/day. Cuero (Same as: Tylenol) Saline 2013-10 No Notes: Memoria Flush 0.9% 0-07 Same as: l 19:23: BD Puneet 00 Posiflush Sterile Potassium No Notes: Memori a Chloride 20 8-11 (Same as: l MEQ 16:50: K-Dur 20) Puneet Extended 00 "Do Not Release Crush" Tablet With food and full glass of water Tylenol No Notes: Do Memor ia 05-21 not exceed l 03:26: 4 gm/day. Cu[place] 00 (Same as: Tylenol) nitroglycer No Notes: Kade maude in 0.4 mg 05-21 (Same l sublingual 02:36: as:Nitroqu H ermann tablet 00 ick, Nitrostat) "Do Not Crush" Sublingual tablet atropine No 0.5 mg, 5 Kade maude 8-11 mL, Route: l 02:36: IVP, Drug form: INJ, PRN, PRN Bradycardi a, Start date: 05/20/14 21:36:00, Duration: 30 day, Stop date: 06/19/14 21:35:00 Zanaflex No Notes: Memoria 8 (Same As: l 02:21: Zanaflex) Puneet 00 Acetaminoph No Notes: Do M emoria en 325 MG / 05-21 not exceed l Hydrocodone 02:21: 4gm/day of [place] Bitartrate acetaminop 10 MG Oral hen. Tablet (Same as: [[place] 10/325] 325/10) Acetaminoph Yes 1 tab, PO, Memoria en 325 MG / 05-21 Q6H, for l Hydrocodone 02:18: pain, # 24 [place] Bitartrate 00 tab, 0 10 MG Oral Refill(s) Tablet [[place] 10/325] Dilaudid No 1 mg, 1 Memori a 8-11 mL, Route: l 02:18: IVP, Drug form: INJ, Q4H, Dosing Weight 76.364, kg, PRN Pain Score 7-10, Start date: 05/20/14 21:18:00, Duration: 30 day, Stop date: 06/19/14 21:17:00 Zofran No Notes: Memoria 811 (Same as: l 02:15: Zofran) Puneet Dilaudid No 0.5 mg, Memori a 8-11 0.5 mL, l 02:15: Route: [place] 00 IVP, Drug form: INJ, Q4H, Dosing Weight 76.364, kg, PRN Pain Score 4-6, Start date: 05/20/14 21:15:00, Duration: 30 day, Stop date: 06/19/14 21:14:00 Ambien No Notes: Memoria 8-11 (Same As: l 02:13: Ambien) atorvastati No Notes: Kade maude n 6-20 (Same As: l 14:00: Lipitor) heparin No Notes: Memoria flush 6-19 (Same as: l 19:00: Heparin Lock Flush) metoprolol Yes 50 mg, PO, M emoria 50 mg oral 6-19 Daily, # l tablet, 17:31: 30 tab, 0 Jennifer nn extended 00 Refill(s) release Ondansetron Yes 4 mg = 1 Me moria 4 MG Oral 6-19 tab, PO, l Tablet 17:22: BID, # 10 Arnulfo n [Zofran] 00 tab, 0 Refill(s) tramadol Yes 50 mg = 1 Kade maude hydrochlori 6-19 tab, PO, l de 50 MG 17:22: Q4H, pain, Her jones Oral Tablet 00 # 12 tab, [Ultram] 0 Refill(s) pantoprazol Yes 40 mg = 1 M emoria e 40 mg 6-19 tab, PO, l oral 17:22: Before enteric 00 Breakfast, coated # 30 tab, tablet 0 Refill(s) atorvastati Yes 20 mg = 1 M emoria n 20 mg 6-19 tab, PO, l oral tablet 17:22: Daily, # He rmann 00 30 tab, 0 Refill(s), Samples: 30 tizanidine Yes Special Kade maude 4 MG Oral 6-19 Instructio l Tablet 14:54: ns: 1 tab Arnulfo n [Zanaflex] 00 metoprolol No Notes: Memor ia tartrate 6-18 (Same as: l 14:00: Lopressor) Saline No Notes: Memoria Flush 0.9% 6-18 (Same as: l 14:00: BD Posiflush) Aspirin 81 No Notes: Do Me moria MG Enteric 18 not crush l Coated 14:00: or chew. Puneet Tablet 00 (Same As: Ecotrin) Lisinopril No Notes: Memor ia 18 (Same as: l 14:00: Prinivil, [place] 00 Zestril) Protonix No Notes: Memoria 6-18 Tablet l 12:30: should not 00 be chewed or crushed. (Same as: Protonix) Lovenox No Notes: Memoria 6-18 (Same as: l 10:00: Lovenox) Puneet 00 Saline No Notes: Memoria Flush 0.9% 18 (Same as: l 09:33: BD Cuero Posiflush) Nitroglycer No Notes: 1 Me moria in 0.02 6-18 gram is l MG/MG 09:33: approximat Arnulfo n Topical 00 ronel 1 inch Ointment of nitroglyce rin ointment (20 mg NTG per gram) (Same as:Nitro-B id) Nitroglycer No Notes: Kade maude in 18 (Same l 09:33: as:Nitroqu ick, Nitrostat) "Do Not Crush" Sublingual tablet Diphenhydra No Notes: Kade maude mine -18 (Same as: l 09:31: Benadryl) Puneet Dextrometho No Notes: Kade maude rphan 18 (dextromet l Hydrobromid 09:31: horphan-gu Puneet e 2 MG/ML / 00 aifenesin Guaifenesin 10-100mg/5 20 MG/ML ml 10 ml Oral oral SOLN Solution ud) (Same as: Robitussin DM) Hydromorpho No 1 mg, 1 Mem oria ne 6-18 mL, Route: l 09:31: IVP, Drug form: INJ, Q4H, Dosing Weight 83.5, kg, PRN Pain Score 4-6, Start date: 03/28/14 4:31:00, Duration: 30 day, Stop date: 04/27/14 4:30:00 Tramadol No Notes: Not Mem oria 6-18 to exceed l 09:31: 400mg/day. (Same As: Ultram) Acetaminoph No Notes: Kade maude en 325 MG / 6-18 (Same as: l Hydrocodone 09:31: [place] Jennifer nn Bitartrate 00 325/5) Do 5 MG Oral not exceed Tablet 4gm/day of acetaminop hen. Acetaminoph No Notes: Do M emoria en 6-18 not exceed l 09:31: 4 gm/day. (Same as: Tylenol) Lorazepam No Notes: Memori a -18 (Same as: l 09:31: Ativan) Bisacodyl No Notes: Memori a 6-18 (Same As: l 09:31: Dulcolax, Bisco-Lax) Simethicone No Notes: Kade maude 6-18 (Same as: l 09:31: Mylicon) Ondansetron No Notes: Kade maude 6-18 (Same as: l 09:31: Zofran) METOPROLOL Yes 100mg Q.5D Take 100 Kaur rris TARTRATE 3-11 mg by Health (LOPRESSOR 16:08: mouth 2 OR) 36 times daily . HYDROCODONE Yes Take by Jacob ris /ACETAMINOP 3-11 mouth. Health HEN (NORCO 16:08: OR) 36 TIZANIDINE Yes Take by Danita is HCL 3-11 mouth. Health (ZANAFLEX 16:08: OR) 36 omeprazole Yes Chest pain 20mg QD Take 1 Abreu (PRILOSEC) 3-11 capsule by [facility] lt 20 mg 00:00: mouth delayed 00 daily. release capsule naproxen Yes Chest pain 250mg [id number] Take 1 Abreu (NAPROSYN) 3-11 [id number] tablet by [facility] 250 mg 00:00: 3D mouth 3 tablet 00 times daily with meals. [place] 2012-10 No Ganga 1 tab, Memoria 10/325 oral 0-24 Zak Route: PO, l tablet 17:49: Shaylee Drug Form: Jennifer nn 00 TAB, Dosing Weight 83.5, kg, Q6H, PRN Pain, NOW, Start date: 08/03/13 12:49:00, Duration: 30 day, Stop date: 09/02/13 12:48:00Do not exceed 4gm/day of acetaminop hen. (Same as: [place] 325/10) potassium 2012-10 No Ganga 20 mEq, 1 Mem oria chloride 0-24 Zak tab, l 15:53: Shyalee Route: PO, Drug form: ERTAB, ONCE, Dosing Weight 83.5, kg, Priority: NOW, Start date: 08/03/13 10:53:00, Stop date: 08/03/13 10:53:00(S vasile as: K-Dur 20) "Do Not Crush" With food and full glass of water metoprolol 2012-10 No Periyanan 25 mg, 1 Memoria tartrate 0-24 Vaduganath tab, l 05:00: an Route: PO, Drug form: TAB, Q8H, Dosing Weight 83.5, kg, Start date: 08/03/13 0:00:00, Duration: 30 day, Stop date: 09/01/13 16:00:00(S vasile as: Lopressor) Protonix 2012-10 No Aleks 40 mg, 1 Me moria 0-23 Andrew tab, l 21:30: Route: PO, Drug form: ECTAB, Before Dinner, Start date: 08/02/13 16:30:00, Duration: 30 day, Stop date: 08/31/13 16:30:00Ta blet should not be chewed or crushed. (Same as: Protonix) magnesium 2012-10 No Aleks 2 gm, 50 M emoria sulfate 0-23 Andrew mL, Route: l 14:39: IVPB, Drug form: INJ, ONCE, Dosing Weight 83.5, kg, Start date: 08/02/13 9:39:00, Stop date: 08/02/13 9:39:00 potassium 2012-10 No Aleks 20 mEq, Me moria chloride 0-23 Andrew 100 mL, l 14:39: Route: IVPB, Drug form: INJ, ONCE, Dosing Weight 83.5, kg, Start date: 08/02/13 9:39:00, Stop date: 08/02/13 9:39:00([facility] as: KCL) Infuse no faster than 10 mEq/hr if given peripheral ly. potassium 2012-10 No Aleks 40 mEq, 2 Memoria chloride 20 0-23 Andrew tab, l mEq oral 14:39: Route: PO, Her jones tablet, 00 Drug form: extended ERTAB, release ONCE, Dosing Weight 83.5, kg, Priority: NOW, Start date: 08/02/13 9:39:00, Stop date: 08/02/13 9:39:00( me as: K-Dur 20) "Do Not Crush" With food and full glass of water pantoprazol 2012-10 No Aleks 40 mg, M emoria e 0-22 Andrew Route: l 21:30: IVP, Drug form: INJ, Before Dinner, Dosing Weight 83.5, kg, Start date: 08/01/13 16:30:00, Duration: 30 day, Stop date: 08/30/13 16:30:00Fo r IV push reconstitu te with 10 ml 0.9% sodium chloride and push over 2 minutes. (Same as: Protonix) NS 1,000 mL 2012-10 No Ganga 1,000 mL, M emoria 0-22 Zak Rate: 100 l 19:13: Shaylee ml/hr, Infuse over: 10 hr, Route: IV, Dosing Weight 83.5 kg, Total Volume: 1,000, Start date: 08/01/13 14:13:00, Stop date: 08/31/13 14:12:00 pantoprazol 2012-10 No Raziuddin 40 mg, Memoria e 0-21 Ahmed Route: l 21:30: IVP, Drug Cuero 00 form: INJ, Before Dinner, Dosing Weight 83.5, kg, Start date: 07/31/13 16:30:00, Duration: 30 day, Stop date: 08/29/13 16:30:00Fo r IV push reconstitu te with 10 ml 0.9% sodium chloride and push over 2 minutes. (Same as: Protonix) chlorhexidi 2012-10 No Chiki 15 mL, M emoria ne topical 0-21 Patel Route: l 0.12% 14:00: Swab Puneet liquid 00 Mouth, Q12H, Drug form: LIQ, Start date: 07/31/13 9:00:00, Duration: 30 day, Stop date: 08/29/13 21:00:00(S vasile As: Peridex) influenza 2012-10 No SYSTEM 0.5 mL, Mem oria virus 0-21 SYSTEM Route: IM, l vaccine, 14:00: Drug Form: Her jones inactivated 00 SUSP, Start date: 07/31/13 9:00:00, Stop date: 07/31/13 9:00:00 pneumococca 2012-10 No SYSTEM 0.5 ml, M emoria l 23-valent 0-21 SYSTEM Route: IM, l vaccine 14:00: Drug Form: Herm aristeo 00 INJ, Start date: 07/31/13 9:00:00, Stop date: 07/31/13 9:00:00 Zosyn 2012-10 No Jose W 3.375 gm, Memor ia 0-21 Hasan 100 mL, l 09:00: Route: Puneet 00 IVPB, Drug form: PDR/INJ, ABXQ6H, Dosing Weight 83.5, kg, Start date: 07/31/13 4:00:00, Duration: 30 day, Stop date: 08/29/13 22:00:00(S vasile as: Zosyn) Dosing based on Piperacill in component chlorhexidi 2012-10 No Chiki 15 mL, M emoria ne topical 0-21 Patel Route: l 0.12% 08:28: Swab Cuero liquid 00 Mouth, PRN, Drug form: LIQ, PRN Other -See Comment, Start date: 07/31/13 3:28:00, Duration: 30 day, Stop date: 08/30/13 2:27:00(Sa me As: Peridex) albuterol-i 2012-10 No Chiki 3 ml, Me moria pratropium 0-21 Patel Route: l 2.5-0.5 mg 08:28: NEB, Drug He rmann inhalation 00 Form: solution SOLN, Dosing Weight 83.5, kg, PRN, PRN Respirator y Protocol, Start date: 07/31/13 3:28:00, Duration: 30 day, Stop date: 08/30/13 2:27:00(Sa me as: Duoneb) NS (Bolus) 2012-10 No Chiki 500 mL, M emoria IV 500 mL 0-21 Patel Rate: 500 l 08:27: ml/hr, Puneet 00 Infuse over: 1 hr, Route: IV, Dosing Weight 83.5 kg, Total Volume: 500, Priority: STAT, Start date: 07/31/13 3:27:00, Duration: 1 doses or times, Stop date: 07/31/13 4:26:00, Bolus DoseBolus Dose D5W 1/2NS 2012-10 No Aleks 1,000 mL, Memoria 1,000 mL 0-21 Andrew Rate: 100 l 08:26: ml/hr, Cuero 00 Infuse over: 10 hr, Route: IV, Dosing Weight 83.5 kg, Total Volume: 1,000, Priority: STAT, Start date: 07/31/13 3:26:00, Duration: 30 day, Stop date: 08/30/13 3:25:00 fentanyl 2012-10 No Aleks IV, Start M emoria 1,250 0-21 Andrew date: l microgram 01:37: 07/30/13 Herm aristeo 00 20:37:00, Duration: 30, 250 ml, 75Concentr ation: 5 microgram / ml morphine 2012-10 No Chiki 2 mg, Memor ia Sulfate 0-21 Patel Route: l 01:13: IVP, Q3H, Dosing Weight 75, kg, PRN Pain Score 4-6, Start date: 07/30/13 20:13:00, Duration: 30 day, Stop date: 08/29/13 20:12:00 ondansetron 2012-10 No Sarita Le Jr 4 mg, 2 Memoria 0-21 mL, Route: l 01:13: IVP, Drug form: INJ, Q8H, Dosing Weight 75, kg, PRN Nausea & Vomiting, Start date: 07/30/13 20:13:00, Duration: 30 day, Stop date: 08/29/13 20:12:00(S vasile as: Zofran) fentanyl 2012-10 No Sarita Le Jr 250 mL, Memoria 1,250 0-21 Rate: l microgram + 01:11: Titrate., H ermann Sodium 00 Dosing Chloride Weight 75, 0.9% kg, Route: (titrate) IV, Total 250 mL Volume: 250, Start Date: 07/30/13 20:11:00, Duration: 30 day, Stop date: 08/29/13 19:10:00, Replace Every: 24 hr midazolam 2012-10 No Aleks 50 mg, 50 Memoria 50 mg in NS 0-21 Andrew mL, Rate: l 50 ml 01:11: 1 mg/hr. Cuero (titrate) 00 Titrate to IV 50 mg maintain goal RASS score., Dosing Weight 75, kg, Route: IV, Total Volume: 50, Start Date: 07/30/13 20:11:00, Duration: 30 day, Stop date: 08/29/13 20:10:00, Replace Every: 24 hr(Same as: Versed) Xarelto 20 2012-10 No 20 mg, PO, M emoria mg oral 0-20 QPM, l tablet 22:34: Substituti Jennifer nn 41 on Allowed pantoprazol 2012-10 Yes 40 mg, 1 Me moria e 40 mg 0-20 tab, PO, l oral 22:34: BID, 30 Cuero enteric 21 tab, coated Substituti tablet on Allowed, ECTAB atorvastati 2012-10 Yes 20 mg, 1 Me moria n 20 mg 0-20 tab, PO, l oral tablet 22:34: Daily, 30 H ermann 06 tab, Substituti on Allowed, TAB etomidate 2012-10 No Roman 20 mg, Memori a 0-20 Stanton Route: l 21:24: Kay IVP, ONCE, H ermann 00 Dosing Weight 75, kg, Priority: STAT, Start date: 07/30/13 16:24:00, Stop date: 07/30/13 16:24:00 cyclobenzap 2012-10 No 10 mg, PO, Memoria rine 10 mg 0-20 TID, PRN, l oral tablet 20:56: 30 tab, Her jones 44 Muscle Spasm, Substituti on Allowed doxepin 150 2012-10 No 150 mg, 1 M emoria mg oral 0-20 cap, PO, l capsule 20:56: Bedtime, Arnulfo n 33 90 cap, Substituti on Allowed, CAP Pradaxa 150 2012-10 No 150 mg, 1 M emoria mg oral 0-20 cap, PO, l capsule 20:54: BID, Puneet 54 Substituti on Allowed etomidate 2012-10 No Roman 20 mg, Memori a 0-20 Stanton Route: l 20:35: Kay IVP, ONCE, H ermann 00 Dosing Weight 75, kg, Priority: STAT, Start date: 07/30/13 15:35:00, Stop date: 07/30/13 15:35:00 propofol 2012-10 No Roman 50 mg, Memoria 0-20 Stanton Route: l 20:35: Kay IVP, ONCE, H erm 00 Dosing Weight 75, kg, Priority: STAT, Start date: 07/30/13 15:35:00, Stop date: 07/30/13 15:35:00 etomidate 2012-10 No Roman 20 mg, Memori a 0-20 Stanton Route: l 20:22: Kay IVP, ONCE, H erm 00 Dosing Weight 75, kg, Priority: STAT, Start date: 07/30/13 15:22:00, Stop date: 07/30/13 15:22:00 etomidate 2012-10 No Roman 20 mg, Memori a 0-20 Stanton Route: l 18:21: Kay IVP, ONCE, H erm 00 Dosing Weight 75, kg, Priority: STAT, Start date: 07/30/13 13:21:00, Stop date: 07/30/13 13:21:00 sodium 2012-10 No Roman 150 mEq, Memoria bicarbonate 0-20 Stanton 150 mL, l 8.4% 18:03: Kay Route: Jennifer nn 00 IVP, Drug Form: INJ, Dosing Weight 75, kg, ONCE, STAT, Start date: 07/30/13 13:03:00, Stop date: 07/30/13 13:03:00(s odium bicarb 8.4% (1 mEq/ml) 50 ml syringe) fentanyl 2012-10 No Fei R IV, Start Me moria 1,250 0-20 Bharathi date: l microgram 16:36: 07/30/13 Herm aristeo 00 11:36:00, Duration: 30, 250 ml, 75Concentr ation: 5 microgram / ml fentanyl 2012-10 No Roman 250 mL, Memori a 1,250 0-20 Stanton Rate: l microgram + 16:19: Kay Titrate, Cuero Sodium 00 Dosing Chloride Weight 75, 0.9% kg, Route: (titrate) IV, Total 250 mL Volume: 250, Start Date: 07/30/13 11:19:00, Duration: 30 day, Stop date: 08/29/13 10:18:00, Replace Every: 24 hr Versed 50 2012-10 No Roman 50 mg, 50 Mem oria mg in NS 50 0-20 Stanton mL, Rate: l ml 16:09: Kay Titrate as H ermann (titrate) 00 directed, IV 50 mg Dosing Weight 75, kg, Route: IV, Total Volume: 50 mL, Start Date: 07/30/13 11:09:00, Duration: 30 day, Stop date: 08/29/13 11:08:00, Replace Every: 24 hr(Same as: Versed) succinylcho 2012-10 No Roman 100 mg, Mem oria line 0-20 Stanton Route: l 15:21: Kay IVP, ONCE, H erm Dosing Weight 75, kg, Priority: STAT, Start date: 07/30/13 10:21:00, Stop date: 07/30/13 10:21:00 etomidate 2012-10 No Roman 20 mg, Memori a 0-20 Stanton Route: l 15:20: Kay IVP, ONCE, H erm Dosing Weight 75, kg, Priority: STAT, Start date: 07/30/13 10:20:00, Stop date: 07/30/13 10:20:00 Ativan 2012-10 No Roman 1 mg, Memoria 0-20 Stanton Route: l 15:20: Kay IVP, Drug He rm form: INJ, ONCE, Dosing Weight 75, kg, Priority: STAT, Start date: 07/30/13 10:20:00, Stop date: 07/30/13 10:20:00 naloxone 2012-10 No Roman 2 mg, Memoria 0-20 Stanton Route: l 15:12: Kay IVP, Drug He rmann 00 form: INJ, ONCE, Dosing Weight 75, kg, Priority: STAT, Start date: 07/30/13 10:12:00, Stop date: 07/30/13 10:12:00 flumazenil 2012-10 No Roman 0.5 mg, Kade maude 0-20 Stanton Route: IV, l 15:11: Kay ONCE, Arnulfo n 00 Dosing Weight 75, kg, Start date: 07/30/13 10:11:00, Stop date: 07/30/13 10:11:00 naloxone 2012- No Roman 2 mg, Memoria 0-20 Stanton Route: l 14:46: Kay IVP, Drug He rmann 00 form: INJ, ONCE, Dosing Weight 75, kg, Priority: STAT, Start date: 07/30/13 9:46:00, Stop date: 07/30/13 9:46:00 Dilaudid 2011- No Ganga 2 mg, 1 Memori a 3-21 Zak mL, Route: l 17:18: Shaylee IV, Drug Puneet 00 form: INJ, Q4H, PRN as needed for pain, Start date: 12/30/11 12:18:00, Duration: 30 day, Stop date: 01/29/12 12:17:00 influenza 2011-0 No SYSTEM 0.5 ml, Mem oria virus 3-21 SYSTEM Route: IM, l vaccine, 14:00: Drug Form: Her jones inactivated 00 SUSP, Start date: 12/30/11 9:00:00, Stop date: 12/30/11 9:00:00 hydrALAZINE 2011-0 No Venkata 10 mg, 0.5 Memoria 3-21 Tyler mL, Route: l 02:42: Jin IV, Drug Puneet 00 form: INJ, Q4H, PRN Elevated BP, Start date: 12/29/11 21:42:00, Duration: 30 day, Stop date: 01/28/12 21:41:00 Protonix 2011-0 No Ganga 40 mg, Memoria 3-21 Zak Route: l 02:00: Shaylee IVP, Drug Cuero 00 form: INJ, Q12H, Start date: 12/29/11 21:00:00, Duration: 30 day, Stop date: 01/28/12 9:00:00 Saline 2011-0 No Ganga 5 ml, Memoria Flush 0.9% 3-21 Zak Route: l 02:00: Shaylee IVP, Drug Cuero 00 Form: INJ, Q12H, Start date: 12/29/11 21:00:00, Duration: 30 day, Stop date: 01/28/12 9:00:00 aspirin 81 2011-0 No Ganga 81 mg, 1 Mem oria mg tablet, 3-21 Zak tab, l enteric 02:00: Shaylee Route: PO, Herm aristeo coated 00 Drug form: ECTAB, Q24H, Start date: 12/29/11 21:00:00, Duration: 30 day, Stop date: 01/27/12 21:00:00 trazodone 2011-0 No Ganga 100 mg, 1 Mem oria 3-21 Zak tab, l 02:00: Shaylee Route: PO, Puneet 00 Drug form: TAB, Bedtime, Start date: 12/29/11 21:00:00, Duration: 30 day, Stop date: 01/27/12 21:00:00 Dilaudid 2011-0 No Ganga 2 mg, 1 Memori a 3-21 Zak mL, Route: l 01:05: Shaylee IV, Drug Puneet 00 form: INJ, Q6H, Priority: STAT, Start date: 12/29/11 20:05:00, Duration: 30 day, Stop date: 01/28/12 21:00:00 Saline 2011-0 No Ganga 5 ml, Memoria Flush 0.9% 3-21 Zak Route: l 01:05: Shaylee IVP, Drug Puneet 00 Form: INJ, PRN, PRN Line Flush, Start date: 12/29/11 20:05:00, Duration: 30 day, Stop date: 01/28/12 20:04:00 nitroglycer 2011-0 No Ganga 0.4 mg, Mem oria in SL Tab 3-21 Zak Route: SL, l 01:05: Shaylee Drug form: Cuero 00 TAB, Q5Min, PRN Chest Pain, Start date: 12/29/11 20:05:00, Duration: 3 doses or times, Stop date: Limited # of times nitroglycer 2011-0 No Ganga 0.4 mg, 1 M emoria in 0.4 mg 3-21 Zak tab, l sublingual 00:44: Shaylee Route: SL, H ermann tablet 00 Drug form: TAB, Q5Min, PRN Chest Pain, Start date: 12/29/11 19:44:00, Duration: 30 day, Stop date: 01/28/12 19:43:00 atropine 2011-0 No Ganga 0.5 mg, 5 Kade maude 3-21 Zak mL, Route: l 00:44: Shaylee IVP, Drug Puneet form: INJ, PRN, PRN Bradycardi a, Start date: 12/29/11 19:44:00, Duration: 30 day, Stop date: 01/28/12 19:43:00 enoxaparin 2011-0 No Ganga 40 mg, 0.4 M emoria 3-20 Zak mL, Route: l 23:00: Shaylee SUB-Q, Cuero 00 Drug form: INJ, [id number], Start date: 12/29/11 18:00:00, Duration: 30 day, Stop date: 01/27/12 21:00:00 Zanaflex 2011-0 No Ganga 4 mg, 1 Memori a 3-20 Zak tab, l 22:38: Shaylee Route: PO, Cuero 00 Drug form: TAB, Q4H, PRN For Pain, Start date: 12/29/11 17:38:00, Duration: 30 day, Stop date: 01/28/12 17:37:00 labetalol 2011-0 No Ganga 200 mg, 1 Mem oria 3-20 Zak tab, l 22:38: Shaylee Route: PO, Cuero 00 Drug form: TAB, BID, Priority: NOW, Start date: 12/29/11 17:38:00, Duration: 30 day, Stop date: 01/28/12 17:00:00 diltiazem 2011-0 No Ganga 240 mg, 1 Mem oria 3-20 Zak cap, l 22:37: Shaylee Route: PO, Cuero Drug form: ERCAP, Daily, Priority: NOW, Start date: 12/29/11 17:37:00, Duration: 30 day, Stop date: 01/28/12 9:00:00 [place] 2012-0 No Ganga 1 tab, Memoria 10/325 oral 3-20 Zak Route: PO, l tablet 22:37: Shaylee Drug Form: Jennifer nn 00 TAB, Q4H, PRN For Pain, Start date: 12/29/11 17:37:00, Duration: 30 day, Stop date: 01/28/12 17:36:00 hydrochloro 2012-0 No Ganga 12.5 mg, 1 Memoria thiazide 3-20 Zak cap, l 22:37: Shaylee Route: PO, Drug form: CAP, Daily, Priority: NOW, Start date: 12/29/11 17:37:00, Duration: 30 day, Stop date: 01/28/12 9:00:00 Phenergan 2011-0 No Ganga 12.5 mg, Kade maude 3-20 Zak 0.5 mL, l 22:36: Shaylee Route: Puneet IVPB, Q6H, PRN Nausea & Vomiting, Start date: 12/29/11 17:36:00, Duration: 30 day, Stop date: 01/28/12 17:35:00 Saline 2012-0 No Ganga 5 ml, Memoria Flush 0.9% 3-20 Zak Route: l 22:33: Shaylee IVP, Drug Form: INJ, PRN, PRN Line Flush, Start date: 12/29/11 17:33:00, Duration: 30 day, Stop date: 01/28/12 17:32:00 ondansetron 2011-0 No Ganga 4 mg, 2 Mem oria 3-20 Zak mL, Route: l 22:33: Shaylee IVP, Drug form: INJ, Q6H, PRN Nausea & Vomiting, Start date: 12/29/11 17:33:00, Duration: 30 day, Stop date: 01/28/12 17:32:00 temazepam 2012-0 No Ganga 15 mg, 1 Kade maude 3-20 Zak cap, l 22:33: Shaylee Route: PO, Puneet 00 Drug form: CAP, Bedtime, PRN Insomnia, Start date: 12/29/11 17:33:00, Duration: 30 day, Stop date: 01/28/12 17:32:00 nitroglycer 2011-0 No Ganga 0.4 mg, Mem oria in SL Tab 3-20 Zak Route: SL, l 22:33: Shaylee Drug form: Cuero 00 TAB, Q5Min, PRN Chest Pain, Start date: 12/29/11 17:33:00, Duration: 3 doses or times, Stop date: Limited # of times Sodium 2011-0 No Ganga 1,000 mL, Memori a Chloride 3-20 Zak Rate: 125 l 0.9% IV 22:33: Shaylee ml/hr, Puneet 1,000 mL 00 Infuse over: 8 hr, Route: IV, Dosing Weight 77.273 kg, Total Volume: 1,000, Start date: 12/29/11 17:33:00, Duration: 30 day, Stop date: 01/28/12 17:32:00 Sodium 2011-0 No Renny 1,000 mL, Memor ia Chloride 3-20 Jaime Rate: l 0.9% 22:10: Popat 1,000 Puneet (Bolus) IV 00 ml/hr, 1000 mL Infuse over: 1 hr, Route: IV, kg, Total Volume: 1,000, Priority: STAT, Start date: 12/29/11 17:10:00, Duration: 1 doses or times, Stop date: 12/29/11 18:09:00, Bolus DoseBolus Dose Dilaudid 2011-0 No Renny 2 mg, Memoria 3-20 Jaime Route: IV, l 22:09: Popat ONCE, Cuero 00 Priority: STAT, Start date: 12/29/11 17:09:00, Stop date: 12/29/11 17:09:00 Dilaudid 2011-0 No Renny 1 mg, Memoria 3-20 Jaime Route: IV, l 20:17: Popat ONCE, Puneet 00 Priority: STAT, Start date: 12/29/11 15:17:00, Stop date: 12/29/11 15:17:00 Dilaudid 2011-0 No Renny 1 mg, Memoria 3-20 Jaime Route: IV, l 19:33: Popat ONCE, Priority: STAT, Start date: 12/29/11 14:33:00, Stop date: 12/29/11 14:33:00 Sodium 2012-0 No Renny 500 mL, Memoria Chloride 3-20 Jaime Rate: 500 l 0.9% 18:55: Popat ml/hr, Puneet (Bolus) IV 00 Infuse 500 mL over: 1 hr, Route: IV, kg, Total Volume: 500, Bolus Dose, Priority: STAT, Start date: 12/29/11 13:55:00, Duration: 1 doses or times, Stop date: 12/29/11 14:54:00 Zofran 2011-0 No Renny 4 mg, Memoria 3-20 Jaime Route: IV, l 18:55: Popat ONCE, Start date: 12/29/11 13:55:00, Stop date: 12/29/11 13:55:00 Dilaudid 2011-0 No Renny 1 mg, 1 Memor ia 3-20 Jaime mL, Route: l 15:57: Popat IV, Drug form: SOLN, ONCE, Priority: STAT, Start date: 12/29/11 10:57:00, Stop date: 12/29/11 10:57:00 hydrochloro Yes Chest pain 12.5mg QD Take 0.5 Abreu thiazide 6-30 [facility] (HYDRODIURI 00:00: mouth L) 25 mg 00 daily. tablet tuberculin No Dmitry 5 unit, Mem oria purified 5-14 Karishma 0.1 ml, l protein 18:00: Route: Cuero derivative 00 INTRADERM, Drug form: INJ, ONCE, Start date: 02/21/10 13:00:00, Stop date: 02/21/10 13:00:00LO T#: ___ EXP: (Same As: Aplisol, Tubersol) atorvastati atorvastati Yes 40mg QD [facility] 40 MG n 40 MG [facility] - Oral Tablet Oral Tablet M emoria l (LUF/LI V/SA) clopidogrel clopidogrel Yes 75mg QD [facility] 75 MG Oral 75 MG Oral Fe es - Tablet Tablet Memoria l (LUF/LI /) fondaparinu fondaparinu Yes 7.5mg QD [facility] (LUF/LI /) Lisinopril Lisinopril Yes 10mg QD [facility] 10 MG Oral 10 MG Oral Fe es - Tablet Tablet Memoria l (LUF/LI /) Nitroglycer Nitroglycer Yes chest pain .4mg [facility] (LUF/LI V/) Acetaminoph Acetaminoph No pain 1tab Q5H [facility] en 325 MG / en 325 MG / L ukes - Hydrocodone Hydrocodone M emoria Bitartrate Bitartrate l 10 MG Oral 10 MG Oral (SARAH F/LI Tablet Tablet /) Labetalol Labetalol No 100mg BID [facility] hydrochlori hydrochlori L ukes - de 100 MG de 100 MG Memor ia Oral Tablet Oral Tablet l (LUF/LI /) tizanidine tizanidine No muscle 4mg C [facility] spasm [facility] l (LUF/LI V/) Acetaminoph No 1 [facility] en/Hydrocod S [facility] one [facility] l Arixtra No 7.5mg [facility]U 7.5MG/0.6ML S [facility] l Atorvastati No 40mg [facility] n Calcium S [facility] l Clopidogrel No 75mg [facility] Bisulfate S [facility] l Lisinopril No 10mg [facility] Tizanidine No 8mg [facility] Atorvastati No 40mg [facility] n [facility] Clopidogrel No 75mg [facility] Bisulfate S [facility] Fondaparinu No 7.5mg [facility] x S [facility] Lisinopril No 10mg [facility] S [facility] Nebivolol No 20mg [facility] S [facility] Nitroglycer No .4mg [facility] in S [facility] Ranolazine No 500mg [facility] Tizanidine No 8mg [facility]cl [facility] l Atorvastati No 40mg [facility] n Calcium S [facility] Clopidogrel No 75mg [facility] Bisulfate S [facility] Fondaparinu No 7.5mg [facility] x [facility] Lisinopril No 10mg [facility] Nebivolol No 20mg [facility] Nitroglycer No .4mg [facility] Ranolazine No 500mg [facility] Tizanidine No 8mg [facility] Atorvastati No 40mg [facility] n Calcium [facility] (Lipitor) [facility] 40 Mg TAB [facility] Clopidogrel No 75mg [facility]U Bisulfate S St[facility] (Plavix) 75 [facility] Mg TAB [facility] Fondaparinu No 7.5mg CHRISTU x (Arixtra S St. Inj) 2.5 [facility] Mg/0.5 Ml [facility] Lisinopril No 10mg [facility] (Zestril) S St[facility] 10 Mg TAB [facility] Nebivolol No 20mg [facility] (Bystolic) S St[facility] 20 Mg [facility] TABLET [facility] Nitroglycer No .4mg [facility]ST[facility] in S St[facility] (Nitrostat) [facility] 0.4 Mg SUBL [facility] Ranolazine No 500mg [facility] (Ranexa) S St[facility] 500 Mg [facility] TABCR [facility] Tizanidine No 8mg [facility]U Hcl S [facility] (Zanaflex) [facility] 4 Mg TAB [facility] Ranolazine No 500mg [facility] (Ranexa) S St[facility] 500 Mg [facility] TABCR [facility] Atorvastati No 40mg CHRISTU n Calcium S [facility] (Lipitor) [facility] 40 Mg TAB [facility] Clopidogrel No 75mg [facility]U Bisulfate S St. (Plavix) 75 [facility] Mg TAB [facility] Fondaparinu No 7.5mg CHRISTU x (Arixtra S St. Inj) 2.5 [facility] Mg/0.5 Ml [facility] Lisinopril No 10mg [facility]ST[facility] (Zestril) S St[facility] 10 Mg TAB [facility] Nebivolol No 20mg [facility]RISTU (Bystolic) S St. 20 Mg [facility] TABLET [facility] Nitroglycer No .4mg CHRISTU in S St[facility] (Nitrostat) [facility] 0.4 Mg SUBL [facility] Atorvastati Atorvastati Yes [address] n Calcium n Calcium [facility] - (Lipitor) (Lipitor) Patie nt 20 Mg 20 Mg s Tablet Tablet Medical [facility] Buprenorphi Buprenorphi Yes C [facility] ne Hcl 2 Mg ne Hcl 2 Mg L ukes - Tab.subl Tab.subl [facility] Clopidogrel Clopidogrel Yes [address] Bisulfate Bisulfate [facility] - (Plavix) 75 (Plavix) 75 P atient Mg Tablet Mg Tablet s [facility] Hydrocodone Hydrocodone Yes C [facility] Bit/Acetami Bit/Acetami L ukes - nophen nophen [facility] [facility] [facility] 10-325 10-325 Medical Tablet) 1 Tablet) 1 Cente r Each Tablet Each Tablet Lisinopril Lisinopril Yes [address] 10 Mg 10 Mg [facility] - Tablet Tablet [facility] Tizanidine Tizanidine Yes [facility] Hcl Hcl [facility] - (Zanaflex) (Zanaflex) Pat ient 4 Mg Tablet 4 Mg Tablet [facility] Immunizations Ordered Immunization Filled Immunization Date Status Commen ts Source Name Name FLU PNEUM FLU PNEUM Unknown Completed [facility] ([place] Vital Signs Vital Name Observation Time Observation Value Comments Source Body Temperature 2020-02-13 10:48:00 98.6 [degF] [facility] Heart Rate 2020-02-13 10:48:00 76 /min [facility] Respiratory rate 2020-02-13 10:48:00 17 /min [facility] BP Systolic 2020-02-13 10:48:00 118 mm[Hg] [facility] BP Diastolic 2020-02-13 10:48:00 82 mm[Hg] [facility] BMI (Body Mass Index) 2020-02-13 04:10:00 32.3 kg/m2 [facility] Heart Rate 2020-02-13 02:32:00 89 /min [facility] Respiratory rate 2020-02-13 02:32:00 19 /min [facility] BP Systolic 2020-02-13 02:32:00 139 mm[Hg] [facility] BP Diastolic 2020-02-13 02:32:00 87 mm[Hg] [facility] Weight 2020-02-12 23:01:00 200 [lb_av] [facility] Body Temperature 2019-09-27 06:38:00 98.0 [degF] [facility] Weight 2019-09-27 06:38:00 180 [lb_av] [facility] BMI (Body Mass Index) 2019-09-27 06:38:00 25.8 kg/m2 [facility] Weight 2019-08-04 07:00:00 191 [lb_av] [facility] BMI (Body Mass Index) 2019-08-04 07:00:00 29.9 kg/m2 [facility] Body Temperature 2019-08-04 06:56:00 98.3 [degF] [facility] Heart Rate 2019-08-04 06:56:00 83 /min [facility] Respiratory rate 2019-08-04 06:56:00 22 /min [facility] BP Systolic 2019-08-04 06:56:00 118 mm[Hg] [facility] BP Diastolic 2019-08-04 06:56:00 85 mm[Hg] [facility] Body Temperature 2018-04-15 21:13:00 99.8 F [facility] ([place] Respiratory Rate 2018-04-15 21:13:00 18 /min [facility] ([place] O2% BldC Oximetry 2018-04-15 21:13:00 100 % [facility] ([place] BP Systolic 2018-04-15 21:13:00 147 mm[Hg] [facility] ([place] BP Diastolic 2018-04-15 21:13:00 89 mm[Hg] [facility] ([place] Height 2018-04-15 21:13:00 67 in [facility] ([place] Weight Measured 2018-04-15 21:13:00 200 lbs [facility] ([place] BMI (Body Mass Index) 2018-04-15 21:13:00 31.3 [facility] ([place] Body Temperature 2018-01-29 12:25:00 98.8 F [facility] [place] Respiratory Rate 2018-01-29 12:25:00 18 /min [facility] ([place] O2% BldC Oximetry 2018-01-29 12:25:00 100 % [facility] [place] BP Systolic 2018-01-29 12:25:00 133 mm[Hg] [facility] ([place] BP Diastolic 2018-01-29 12:25:00 91 mm[Hg] [facility] ([place] Height 2018-01-29 09:14:00 67 in [facility] ([place] Weight Measured 2018-01-29 09:14:00 190 lbs [facility] ([place] BMI (Body Mass Index) 2018-01-29 09:14:00 29.8 [facility] ([place] Respiratory Rate 2017-11-14 14:12:00 17 /min [facility] ([place] O2% BldC Oximetry 2017-11-14 14:12:00 98 % [facility] ([place] BP Systolic 2017-11-14 14:12:00 131 mm[Hg] [facility] ([place] BP Diastolic 2017-11-14 14:12:00 93 mm[Hg] [facility] ([place] Body Temperature 2017-11-14 10:57:00 98.7 F [facility] ([place] Height 2017-11-14 10:57:00 67 in [facility] ([place] Weight Measured 2017-11-14 10:57:00 187 lbs [facility] ([place] BMI (Body Mass Index) 2017-11-14 10:57:00 29.3 [facility] ([place] Temperature Oral (F) 2016-11-20 14:00:00 98.1 F [facility] Systolic (mm Hg) 2016-11-20 12:23:00 [facility] Diastolic (mm Hg) 2016-11-20 12:23:00 [facility] Respitory Rate 2016-11-20 12:23:00 [facility] Temperature Oral (F) 2016-11-20 12:03:00 97.9 F [facility] Respitory Rate 2016-11-20 11:45:00 [facility] Systolic (mm Hg) 2016-11-20 11:45:00 [facility] Diastolic (mm Hg) 2016-11-20 11:45:00 [facility] Weight 2016-11-20 11:45:00 [facility] BMI Calculated 2016-11-20 11:45:00 [facility] Height 2016-11-20 11:45:00 170.18 cm [facility] Respitory Rate 2016-10-12 00:27:00 [facility] Systolic (mm Hg) 2016-10-12 00:27:00 [facility] Diastolic (mm Hg) 2016-10-12 00:27:00 [facility] Systolic (mm Hg) 2016-10-11 23:00:00 [facility] Diastolic (mm Hg) 2016-10-11 23:00:00 [facility] Respitory Rate 2016-10-11 23:00:00 [facility] BMI Calculated 2016-10-11 21:40:00 [facility] Weight 2016-10-11 21:40:00 [facility] Height 2016-10-11 21:40:00 170.18 cm [facility] Temperature Oral (F) 2016-10-11 21:40:00 98.2 F [facility] Heart Rate 2016-10-11 21:40:00 [facility] Respitory Rate 2016-10-11 21:40:00 [facility] Systolic (mm Hg) 2016-10-11 21:40:00 [facility] Diastolic (mm Hg) 2016-10-11 21:40:00 [facility] Height 2015-09-13 20:32:00 170.18 cm [facility] BMI Calculated 2015-09-13 20:32:00 [facility] Weight 2015-09-13 20:32:00 [facility] BMI Calculated 2015-09-13 20:13:00 [facility] Weight 2015-09-13 20:13:00 [facility] Height 2015-09-13 20:13:00 170.18 cm [facility] Temperature Oral (F) 2015-09-13 19:23:00 98.4 F [facility] Systolic (mm Hg) 2015-09-13 19:23:00 [facility] Diastolic (mm Hg) 2015-09-13 19:23:00 [facility] Respitory Rate 2015-09-13 19:23:00 [facility] Heart Rate 2015-09-13 19:23:00 [facility] Systolic (mm Hg) 2015-04-23 12:25:00 [facility] Diastolic (mm Hg) 2015-04-23 12:25:00 [facility] Respitory Rate 2015-04-23 12:25:00 [facility] Heart Rate 2015-04-23 12:25:00 [facility] Temperature Oral (F) 2015-04-23 12:25:00 98.3 F [facility] Height 2015-04-23 12:18:00 170.18 cm [facility] BMI Calculated 2015-04-23 12:18:00 [facility] Weight 2015-04-23 12:18:00 [facility] Respitory Rate 2014-11-17 13:30:00 [facility] Heart Rate 2014-11-17 13:30:00 [facility] Systolic (mm Hg) 2014-11-17 13:30:00 [facility] Diastolic (mm Hg) 2014-11-17 13:30:00 [facility] Temperature Oral (F) 2014-11-17 13:30:00 97.6 F [facility] Heart Rate 2014-11-17 10:00:00 [facility] Respitory Rate 2014-11-17 10:00:00 [facility] Systolic (mm Hg) 2014-11-17 10:00:00 [facility] Diastolic (mm Hg) 2014-11-17 10:00:00 [facility] Temperature Oral (F) 2014-11-17 10:00:00 97.9 F [facility] Systolic (mm Hg) 2014-11-17 06:00:00 [facility] Diastolic (mm Hg) 2014-11-17 06:00:00 [facility] Heart Rate 2014-11-17 06:00:00 [facility] Respitory Rate 2014-11-17 06:00:00 [facility] Temperature Oral (F) 2014-11-17 06:00:00 98 F [facility] Height 2014-11-16 23:14:00 170.18 cm [facility] BMI Calculated 2014-11-16 23:14:00 [facility] Weight 2014-11-16 23:14:00 [facility] Heart Rate 2014-08-07 17:00:00 [facility] Temperature Oral (F) 2014-08-07 17:00:00 98 F [facility] Respitory Rate 2014-08-07 17:00:00 [facility] Diastolic (mm Hg) 2014-08-07 17:00:00 [facility] Systolic (mm Hg) 2014-08-07 17:00:00 [facility] Temperature Oral (F) 2014-08-07 11:00:00 98.1 F [facility] Heart Rate 2014-08-07 11:00:00 [facility] Diastolic (mm Hg) 2014-08-07 11:00:00 [facility] Respitory Rate 2014-08-07 11:00:00 [facility] Systolic (mm Hg) 2014-08-07 11:00:00 [facility] Systolic (mm Hg) 2014-08-07 05:00:00 [facility] Heart Rate 2014-08-07 05:00:00 [facility] Respitory Rate 2014-08-07 05:00:00 [facility] Temperature Oral (F) 2014-08-07 05:00:00 98.3 F [facility] Diastolic (mm Hg) 2014-08-07 05:00:00 [facility] BMI Calculated 2014-08-03 19:44:00 [facility] Weight 2014-08-03 19:44:00 [facility] Height 2014-08-03 19:44:00 170.18 cm [facility] Diastolic (mm Hg) 2014-08-01 17:16:00 [facility] Heart Rate 2014-08-01 17:16:00 [facility] Systolic (mm Hg) 2014-08-01 17:16:00 [facility] Respitory Rate 2014-08-01 17:16:00 [facility] Temperature Oral (F) 2014-08-01 17:16:00 98.4 F [facility] Systolic (mm Hg) 2014-08-01 12:56:00 [facility] Diastolic (mm Hg) 2014-08-01 12:56:00 [facility] Respitory Rate 2014-08-01 12:56:00 [facility] Heart Rate 2014-08-01 12:56:00 [facility] Temperature Oral (F) 2014-08-01 12:56:00 98.3 F [facility] Respitory Rate 2014-08-01 09:00:00 [facility] Systolic (mm Hg) 2014-08-01 09:00:00 [facility] Diastolic (mm Hg) 2014-08-01 09:00:00 [facility] Temperature Oral (F) 2014-08-01 09:00:00 97.7 F [facility] Heart Rate 2014-08-01 09:00:00 [facility] Height 2014-07-31 07:19:00 175.26 cm [facility] Weight 2014-07-31 06:13:00 [facility] Weight 2014-07-18 19:00:11 [facility] Height 2014-07-18 19:00:11 [facility] Temperature Oral (F) 2014-07-18 19:00:11 100.3 F [facility] Heart Rate 2014-07-18 19:00:11 [facility] Systolic (mm Hg) 2014-07-18 19:00:11 [facility] Diastolic (mm Hg) 2014-07-18 19:00:11 [facility] Systolic (mm Hg) 2014-07-18 12:52:00 [facility] Diastolic (mm Hg) 2014-07-18 12:52:00 [facility] Respitory Rate 2014-07-18 12:52:00 [facility] Temperature Oral (F) 2014-07-18 12:52:00 98.7 F [facility] Heart Rate 2014-07-18 12:52:00 [facility] Temperature Oral (F) 2014-07-18 08:40:00 98.0 F [facility] Respitory Rate 2014-07-18 08:40:00 [facility] Heart Rate 2014-07-18 08:40:00 [facility] Systolic (mm Hg) 2014-07-18 08:40:00 [facility] Diastolic (mm Hg) 2014-07-18 08:40:00 [facility] Diastolic (mm Hg) 2014-07-18 07:21:00 [facility] Systolic (mm Hg) 2014-07-18 07:21:00 [facility] Respitory Rate 2014-07-18 07:21:00 [facility] Heart Rate 2014-07-18 07:21:00 [facility] Temperature Oral (F) 2014-07-18 04:33:00 98.2 F [facility] Weight 2014-07-18 02:00:00 [facility] BMI Calculated 2014-07-18 02:00:00 [facility] Height 2014-07-18 02:00:00 170.18 cm [facility] BMI Calculated 2014-07-17 19:14:00 [facility] Weight 2014-07-17 19:14:00 [facility] Height 2014-07-17 19:14:00 170.18 cm [facility] Respitory Rate 2014-05-21 16:27:00 [facility] Systolic (mm Hg) 2014-05-21 16:27:00 [facility] Diastolic (mm Hg) 2014-05-21 16:27:00 [facility] Temperature Oral (F) 2014-05-21 16:27:00 97.2 F [facility] Heart Rate 2014-05-21 16:27:00 [facility] Diastolic (mm Hg) 2014-05-21 12:16:00 [facility] Temperature Oral (F) 2014-05-21 12:16:00 97.4 F [facility] Systolic (mm Hg) 2014-05-21 12:16:00 [facility] Respitory Rate 2014-05-21 12:16:00 [facility] Heart Rate 2014-05-21 12:16:00 [facility] Systolic (mm Hg) 2014-05-21 09:00:00 [facility] Heart Rate 2014-05-21 09:00:00 [facility] Respitory Rate 2014-05-21 09:00:00 [facility] Temperature Oral (F) 2014-05-21 09:00:00 98.0 F [facility] Diastolic (mm Hg) 2014-05-21 09:00:00 [facility] Height 2014-05-21 02:22:00 170.18 cm [facility] Weight 2014-05-21 02:22:00 [facility] BMI Calculated 2014-05-21 02:22:00 [facility] Weight 2014-05-21 01:55:00 [facility] BMI Calculated 2014-05-21 01:55:00 [facility] Height 2014-05-21 01:55:00 170.18 cm [facility] Systolic (mm Hg) 2014-03-29 17:05:00 [facility] Diastolic (mm Hg) 2014-03-29 17:05:00 [facility] Heart Rate 2014-03-29 17:05:00 [facility] Respitory Rate 2014-03-29 17:05:00 [facility] Temperature Oral (F) 2014-03-29 17:05:00 98.1 F [facility] Heart Rate 2014-03-29 13:28:00 [facility] Respitory Rate 2014-03-29 13:28:00 [facility] Temperature Oral (F) 2014-03-29 13:28:00 98.4 F [facility] Diastolic (mm Hg) 2014-03-29 13:28:00 [facility] Systolic (mm Hg) 2014-03-29 13:28:00 [facility] Diastolic (mm Hg) 2014-03-29 09:00:00 [facility] Temperature Oral (F) 2014-03-29 09:00:00 97.6 F [facility] Systolic (mm Hg) 2014-03-29 09:00:00 [facility] Respitory Rate 2014-03-29 09:00:00 [facility] Heart Rate 2014-03-29 09:00:00 [facility] Weight 2014-03-28 09:33:00 [facility] BMI Calculated 2014-03-28 09:33:00 [facility] Height 2014-03-28 09:33:00 170.18 cm [facility] Temperature Oral (F) 2013-08-04 16:35:00 98.3 F [facility] Diastolic (mm Hg) 2013-08-04 16:35:00 [facility] Systolic (mm Hg) 2013-08-04 16:35:00 [facility] Heart Rate 2013-08-04 16:35:00 [facility] Respitory Rate 2013-08-04 16:35:00 [facility] Respitory Rate 2013-08-04 12:57:00 [facility] Heart Rate 2013-08-04 12:36:00 [facility] Respitory Rate 2013-08-04 12:36:00 [facility] Systolic (mm Hg) 2013-08-04 12:36:00 [facility] Diastolic (mm Hg) 2013-08-04 12:36:00 [facility] Temperature Oral (F) 2013-08-04 12:36:00 98.1 F [facility] Heart Rate 2013-08-04 09:00:00 [facility] Diastolic (mm Hg) 2013-08-04 09:00:00 [facility] Systolic (mm Hg) 2013-08-04 09:00:00 [facility] Temperature Oral (F) 2013-08-04 09:00:00 98.5 F [facility] Height 2013-07-31 02:00:00 170 cm [facility] Weight 2013-07-31 02:00:00 [facility] Weight 2013-07-30 14:10:00 [facility] Height 2013-07-30 14:10:00 170.18 cm [facility] Temperature Oral (F) 2011-12-31 01:00:00 99.2 F [facility] Diastolic (mm Hg) 2011-12-31 01:00:00 [facility] Systolic (mm Hg) 2011-12-31 01:00:00 [facility] Respitory Rate 2011-12-31 01:00:00 [facility] Heart Rate 2011-12-31 01:00:00 [facility] Systolic (mm Hg) 2011-12-30 21:00:00 [facility] Diastolic (mm Hg) 2011-12-30 21:00:00 [facility] Respitory Rate 2011-12-30 21:00:00 [facility] Heart Rate 2011-12-30 21:00:00 [facility] Temperature Oral (F) 2011-12-30 21:00:00 98.8 F [facility] Temperature Oral (F) 2011-12-30 17:57:00 97.7 F [facility] Heart Rate 2011-12-30 17:57:00 [facility] Diastolic (mm Hg) 2011-12-30 17:57:00 [facility] Systolic (mm Hg) 2011-12-30 17:57:00 [facility] Respitory Rate 2011-12-30 17:57:00 [facility] Weight 2011-12-29 15:33:00 [facility] Height 2011-12-29 15:33:00 170.18 cm [facility] Procedures Procedure Date / Time Performing Clinician Source Performed Bilateral venous [facility] 2020[facility]13 [facility] on x-ray 2020-02-13 00:00:[address] examination made Rosa Maria Starkey elsewhere, written report Hospit al Consultation on x-ray 2019-09-27 00:00:[address] examination made Rosa Maria Starkey elsewhere, written report Hospit al Hospital observation 2019-08-28 00:00:[address] service, per hour [facility] Continuous Invasive 2013-07-30 05:00:00 [facility] Mechanical Ventilation for Less Than 96 Consecutive Hours Insertion of Endotracheal 2013-07-30 05:00:00 [facility] Tube Spinal Tap 2013-07-30 05:00:00 [facility] jones Cholecystectomy [facility] Laminectomy and discectomy [facility] Procedure on back [facility] Plan of Care Planned Activity Planned Date Details Comments Source Future Scheduled Test 2023-01-07 Lipid panel [facility] - 00:00:00 (procedure) [code = Medical Center 27087922] Future Scheduled Test 2021-07-11 IMM Influenza Seasonal [facility] 00:00:00 Jul to December (>/= 19 yrs) [code = IMM Influenza Seasonal Jul to December (>/= 19 yrs)] Future Scheduled Test 2021-05-11 [facility] [code = INFLU[facility] VACCINE] Future Scheduled Test 2021 Screening for [facility] 00:00:00 malignant neoplasm of colon (procedure) [code = 361854598] Future Scheduled Test 2021 COLONOSCOPY SCREENING [facility] 00:00:00 [code = COLONOSCOPY SCREENING] Future Scheduled Test 2021 SHINGLES VACCINES (#1) [facility] 00:00:00 [code = SHINGLES VACCINES (#1)] Future Scheduled Test 2020-06-11 INFLUENZA VACCINE (#1) [facility] - 00:00:00 [code = INFLUENZA Medical Ce nter VACCINE (#1)] Future Scheduled Test 1987 COVID-19 Vaccine (1) [facility] 00:00:00 [code = COVID-19 Vaccine (1)] Future Scheduled Test 1987 COVID-19 VACCINE (1) [facility] 00:00:00 [code = COVID-19 VACCINE (1)] Future Scheduled Test Automated blood [facility] leukocyte count [facility] (number/volume) [code = 6690-2] Future Scheduled Test Blood erythrocytes [facility] automated count [facility] (number/volume) [code = 789-8] Future Scheduled Test Blood hemoglobin [facility] measurement [facility] (mass/volume) [code = 718-7] Future Scheduled Test Automated blood [facility] hematocrit (volume [facility] ospital fraction) [code = 4544-3] Future Scheduled Test Automated erythrocyte [facility] mean corpuscular [facility] pital volume (MCV) measurement [code = 787-2] Future Scheduled Test Automated erythrocyte [facility] mean corpuscular [facility] hemoglobin (mass per erythrocyte) [code = 785-6] Future Scheduled Test Automated erythrocyte [facility] mean corpuscular [facility] hemoglobin concentration measurement (mass/vol [code = 786-4] Future Scheduled Test Automated erythrocyte [facility] distribution width [facility] ospital ratio [code = 788-0] Future Scheduled Test Automated blood [facility] platelet count [facility] (count/volume) [code = 777-3] Future Scheduled Test Automated blood [facility] platelet mean volume [facility] measurement [code = 80519-1] Future Scheduled Test Serum or plasma [facility] cardiac troponin I [facility] ospital measurement (mass/volume) [code = 07228-1] Future Scheduled Test Prothrombin time (PT) [facility] in platelet poor [facility] plasma [code = 5902-2] Future Scheduled Test Activated partial [facility] thromboplastin time [facility] with heparin neutralization [code = 50230-9] Future Scheduled Test Dilute Girish's viper [facility] venom time [code = [facility] 6303-2] Future Scheduled Test Activated partial [facility] thromboplastin time [facility] (aPTT) immediately after 1:1 mixing with normal [code = 5946-9] Future Scheduled Test Platelet KYLER US St. neutralization [code = [facility] AVW3778] Future Scheduled Test Dilute Girish's viper [facility] venom time mixing [facility] spital study [code = 89609-3] Future Scheduled Test Dilute Girish viper [facility] venom time (DRVVT) [facility] ospital excess phospholipid [presence] in platelet po [code = 14132-0] Future Scheduled Test Lupus anticoagulant [facility] interpretation in [facility] platelet poor plasma [code = 453621432] Future Scheduled Test Serum cardiolipin IgG [facility] antibody assay by [facility] spital immunoassay (units/volume) [code = 3181-5] Future Scheduled Test Serum cardiolipin IgM [facility] antibody assay by [facility] [place] immunoassay (units/volume) [code = 3182-3] Future Scheduled Test Identification of C [facility] specimen source [code [facility] = 58000-0] Future Scheduled Test Blood or tissue [facility] gene p.R506Q detection [facility] by molecular genetics method [code = 56498-6] Future Scheduled Test Clotting factor II [facility] assay [code = 3289-6] [facility] Goal Patient referral [code JOSE FLORIAN St. = 0423610 ] [facility] Instructions Pulmonary Embolism [facility] (Blood Clot in the Rosa Maria C abrini Lungs) (DC) Hospital Encounters Start End Encounter Admission Attending Care Care Encounter Source Date/Time Date/Time Type Type Clinicians Facility Department ID 2020-02-12 2020-02-12 Admitted [facility] Sarah [id number] [id number] 23:02:00 23:02:00 Inpatient [facility] [address] . [facility]obs[facility] 2019-10-11 2019-10-11 Outpatient Carmen, [facility] [id number] 19:10:00 20:17:00 Edilberto 01 Minshermanu [place] 2019-10-11 2019-10-11 Outpatient [facility] 0001 [facility] 19:10:00 19:10:00 2019-09-27 2019-09-27 Departed [facility] Sarah [id number] [facility] 07:09:00 07:09:00 Emergency FC [facility] [address] . [facility] 2019-08-28 2019-08-28 Departed [facility] [id number] [facility] 11:05:00 11:25:00 Emergency FC [facility] [address] [facility] 2019-08-01 2019-08-01 Admitted [facility] AB07 [id number] [facility] 20:10:00 20:10:00 Inpatient [facility] [address] [facility] 2019-08-01 2019-08-01 Registered [facility] AB [id number] [facility] 17:30:00 17:30:00 [facility] [address] [facility] 2018-11-19 2018-11-19 Outpatient Oscar NICOLE, [facility] ECC [id number] [facility] 08:20:00 09:42:00 GEORGIE [facility] 2018-10-24 2018-10-24 Outpatient E SARA, [facility] TELE [id number] [facility] 07:51:00 10:45:00 KEILA [facility] 2018-09-14 2018-09-15 Outpatient C PILO, [facility] TELE [id number] [facility] 12:31:00 11:36:00 TYRON Medi [facility] 2018-07-31 2018-07-31 Emergency E SUDEEP, [facility] [id number] [facility] 00:38:00 05:56:00 BOB Medic al [facility] 2018-07-15 2018-07-16 Outpatient E SUZANNAOscar, [facility] TELE [id number] [facility] 10:19:00 12:35:00 DALTON [facility] 2018-04-15 2018-04-15 PRECORDIAL E [place], [facility] [id number] 20:59:00 22:16:00 PAIN ILIANA [facility] [address] NIKOLE RAMIREZ [id number] 2018-01-29 2018-01-29 CHEST PAIN 1 TARAPASADE, [facility] [id number] [facility] 12:12:00 13:10:00 UNSPECIFIE LIBRA [facility] es - D [facility] [address], [place]) [place] [id number] 2018 2018 Departed [facility] [id number] 18:00:00 20:37:00 Emergency 98 Luke s - Room Patient [facility] 2017-12-16 2017-12-16 Emergency E BA, JOLEEN [facility] GPECC [id number] [facility] 13:45:00 17:07:00 Medica l Center 2017-11-14 2017-11-14 CHEST PAIN E LAKIA, [facility] [id number] 10:47:00 14:42:00 UNSPECIFIE [place] [facility] [place] [address] V[address]SA) NIKOLE RAMIREZ [id number] 2017-10-11 2017-10-11 Outpatient Sara, [facility] [id number] 15:12:00 15:31:00 Virgen 01 2017-09-05 2017-09-05 Outpatient Crystal, [facility] [id number] 18:23:00 19:00:00 Antony 30 2017-02-17 2017-02-17 Outpatient Ed, [facility] [id number] 23:00:00 23:43:00 Quratcarlosin 30 A 2016-11-20 2016-11-20 Outpatient Toñito, [facility] [id number] 04:45:00 09:00:00 Harrison 41 2016-10-11 2016-10-11 Outpatient Adrián, [facility] [id number] 15:34:00 18:43:00 Silas 00 Eduardo 2015-09-13 2015-09-13 Outpatient Clifford, 9 [facility] [id number] 13:00:00 15:32:00 Sharif 38 2015-04-23 2015-04-23 Outpatient Pil[place], [place] [id number] 07:10:00 08:10:00 Hali 95 2014-11-16 2014-11-17 Outpatient Sal, [facility] [id number] 17:03:00 11:00:00 Omid 37 2014-08-06 2014-08-07 Outpatient Avni, [facility] [id number] 15:30:00 13:46:00 Lenny Hanson 25 2014-07-31 2014-08-01 Outpatient Loida, [facility] [id number] 00:56:00 14:04:00 Gustavo Sanon 94 2014-07-17 2014-07-18 Outpatient Ahmed, [facility] [id number] 14:02:00 12:17:00 Sheikh Oscar 24 2014-06-26 2014-06-26 Outpatient Asael, [facility] [id number] 23:00:00 23:00:00 Aleks Henry 59 2014-05-20 2014-05-21 Outpatient Saadia, [facility] [id number] 20:00:00 13:32:00 Curry 22 2014-03-28 2014-03-29 Outpatient Maddison, [facility] [id number] 04:29:00 15:00:00 Evgeny Ibanez 2013-07-30 2013-08-04 Outpatient [facility] [id number] [facility] 09:07:00 13:45:00 [facility] 2013-07-30 2013-08-04 Outpatient [facility] [id number] [facility] 09:07:00 13:45:00 [facility] 2013-07-30 2013-08-04 Outpatient [facility] [id number] [facility] 09:07:00 13:45:00 [facility] 2013-07-30 2013-08-04 Outpatient [facility] [id number] [facility] 09:07:00 13:45:00 [facility] 2013-07-30 2013-08-04 Outpatient [facility] [id number] [facility] 09:07:00 13:45:00 [facility] Results Test Description Test Time Test Comments Results Result Comments Source TROPONIN-I 2021-01-06 00:09:00 Test Item Value Reference Range Interpretation Comme nts TROPONIN-I (test code = < 0.006 ng/mL 0.000-0.045 N Neg ative: <= 0.045 TROPI) Positive: >= 0.046 Correlation wit h serial results, other cardiac m arkers andclinical findings is nec essary to determine the clinicalsignifi cance of this result. Results using different methodologies s hould not be comparedto one another as quantitative re sults may vary by method. [id number] 21:51:00 Test Item Value Reference Range Interpretation Comments TROPONIN-I < 0.006 ng/mL 0.000-0.045 N Negative: <= (test code = 0.045 Positive: TROPI) >= 0.046 Correl ation with serial results, other cardiac markers andclinical findings is nec essary to determine the clinicalsignifi cance of this result. Results using different metho dologies should not be c omparedto one another as bindu titative results may nicky y by method. PROTHROMBIN [id number] 18:45:00 Test Item Value Reference Range Interpretation Comments PROTHROMBIN TIME 13.4 SECONDS 9.3-12.9 H PATIENT (test code = PTP) INTERNATIONAL NORMAL 1.2 0.8-1.2 N TARGET RATIO (test code = INR BY IN DICATION INR) Indication INR1. Prophyl axis of venous thrombos is 2.0 - 3. 0 (orthopedic minesh graham), Prophylaxis of venous thrombos is (other than hig h-risk surgery), Court tment of Deep Vein Thrombosis/Pulm onary Embolism, Preve ntion of systemic emb olism - Tissue heart va lves, Acute Myocardia l Infarction (to prevent systemic embo lism), Valvular heart disease, Atri al Fibrillation, Bileaflet mecha nical valve in aortic position.2. Mec hanical prosthetic valv es (high risk), 2.5 - 3.5 Presence of Lupus Anticoagu lant or Antiphospholi pid Antibodies, Pre vention of systemic e mbolism - Acute Myocard ial Infarction (t o prevent recurre nt infarct). THROMBOPLASTIN TIME [id number] 18:45:00 Test Item Value Reference Range Interpretation Comments THROMBOPLASTIN TIME 24.8 Seconds 25.0-39.5 L Ther apeutic PARTIAL (test code = Range: 50.4 - 88.3 PTT) Seconds Effective 01/24/2019 PROTHROMBIN [id number] 18:44:00 Test Item Value Reference Range Interpretation Comments PROTHROMBIN TIME SECONDS 9.3-12.9 PATIENT (test code = PTP) INTERNATIONAL NORMAL 1.2 0.8-1.2 N TARGET RATIO (test code = INR BY IN DICATION INR) Indication INR1. Prophylax is of venous thrombos is 2.0 - 3.0 (orthopedic minesh graham), Prophylaxis of venous thrombosis (oth er than high-risk minesh graham), Treatment of De ep Vein Thrombosis/Pulm onary Embolism, Preve ntion of systemic emb olism - Tissue heart va lves, Acute Myocardia l Infarction (to prevent systemic emboli sm), Valvular heart disease, Atrial Fibrill ation, Bileaflet mecha nical valve in aortic position.2. Mec hanical prosthetic valv es (high risk), 2.5 - 3.5 Presence of Lup us Anticoagulant o r Antiphospholipi d Antibodies, Pre vention of systemic e mbolism - Acute Myocardia l Infarction (t o prevent recurrent infar ct). THROMBOPLASTIN TIME [id number] 18:44:00 Test Item Value Reference Range Interpretation Comments THROMBOPLASTIN TIME PARTIAL (test Seconds 25.0-39.5 code = PTT) - XR CHEST 1 [id number] 17:18:00 [facility] 1970 Sex: M FAX: Yobany Thornton MD [phone] [place]: REG Name: GERMÁN EUBANKS [facility] : 1970 Age/S: 51/M [address] [place] [address] Unit #: [id number] Loc: [place] [address] Phys: Yobany Boyer MD Acct: [id number] Dis Date: Status: REG ER PHONE #: [phone] Exam Date: 01/05/2021 1641 FAX #: [phone] Reason: Chest Pain EXAMS: CPT CODE: [id number] XR CHEST 1 V [id number] Chest, single view dated 01/05/2021. HISTORY: Chest pain. Nausea. Tachycardia. Comparison is made to a prior study dated 12/08/2020. The positioning of the right jugular Port-A-Cath has not significantly changed in the interim with the tip projecting in the superior vena cava. The heart is normal in size. The cardiomediastinal shadow is stable. The lungs appear clear. The pulmonary vasculature is normal in caliber. No acute pleural space abnormalities are detected. IMPRESSION: 1. No radiographic evidence of acute cardiopulmonary disease. SL: 131 at 1718 Reported and signed by: Ian Schmidt M.D. CC: Yobany Boyer MD Technologist: Nicolle Louise, RT(R); eKlly Rosenbaum RT(R) Trnscrd Date/Time/By: 01/05/2021 (1312) : By: Giovanny Orig Print D/T: S: 01/05/2021 (2363) PAGE 1 Si gned ReportB-TYPE NATRIURETIC [id number] 17:05:00 Test Item Value Reference Range Interpretation Comments B-TYPE NATRIURETIC PEPTIDE (test < 2.0 PG/ML 0-100 N code = BNP) - CTA CHEST FOR [id number] 16:50:00 [facility] : 1970 Sex: M Name: GERMÁN EUBANKS [facility] [place] : 1970Age/S: 51 / M [address] [place] [address] Unit #: [id number] Loc: [place] [address] Phys: Yobany Boyer MD Acct: [id number] Dis Date: Status: REG ER PHONE#: [phone] Exam Date: 01/05/2021 1629 FAX #: [phone] Reason:acute right sided chest pain, sob, hx multiple EXAMS: CPT CODE: [id number] [place] [address] [place] ANGIOGRAM CHEST INDICATION: Acute right sided chest pain, dyspnea, hx multiple PEs. TECHNIQUE: 100 mL Isovue-300 iodinated intravenous contrast was administered. CT angiography of the chest was performed with axial images. Maximum intensity projection images were also reviewed. CT imaging performed at this location utilizes radiation dose optimiz ation technique which includes one or more of the followin) Automated exposure control; 2)Adjustment of the mA and/or kV according to patient's size; 3) Use of iterative reconstruction techniques. DLP (mGy-cm): 385 COMPARISONS: CTA chest 09/08/2020 FINDINGS: There is calcification within the posterior nuchal soft tissues suggestin g prior ligamentous injury. There is no acute osseous fracture or dislocation.There is no acute osseous fracture or dislocation. There is no organized fluid collection or mass in the soft tissues. There is a right-sided Tefiiq-t-Czcr catheter with catheter tip at the cavoatrial junction. The mediastinum reveals no mass, organized fluid collection or lymphadenopathy. The pulmonary arteries are normal caliber with no pulmonary embolism. The heart size is normal. There is no pericardial effusion. There is moderately heavy calcification of the coronary arteries. The aorta reveals no aneurysm or acute process. The esophagus reveals no wall thickening, mass or dilation. There is no tracheobronchomalacia or bronchiectasis. There is no filling defect in the airways. There is no pneumothorax, pleural effusion or organized pneumonia. The gallbladder is surgically absent. PAGE 1 Signed Report (CONTINUED) Name: GERMÁN EUBANKS [facility] [place] : 1970 Age/S: 51 / M [address] [place] [address] Unit #: [id number] Loc: [place] [address] Phys: Yobany Boyer MD Acct: [id number] Dis Date: Status: REG ER PHONE #: [phone] Exam Date: 01/05/2021 1629 FAX #: [phone] Reason: acute right sided chest pain, sob, hx multiple EXAMS: CPT CODE: [id number] [address] <Continued> IMPRESSION: 1. There is no acute cardiopulmonary process detected. There is no pulmonary embolism. The prior pulmonary emboli demonstrated on 09/08/2020 have resolved. 2. There is a moderately heavy burden of coronary artery calcification. There is no cardiac enlargement. at 1650 Reported and signed by: Humberto Alberts D.O. CC: Yobany Boyer MD Technologist:Paul Marino, RT(R)(CT) CTDI: DLP: Trnscb Date/Time: 01/05/2021 (1649) [email or web address] Orig Print D/T: S: 01/05/2021(0657) PAGE 2 Signed [id number] 16:49:00 Test Item Value Reference Range Interpretation Comments TROPONIN-I < 0.006 ng/mL 0.000-0.045 N Negative: <= (test code = 0.045 Positive: TROPI) >= 0.046 Correl ation with serial results, other cardiac markers andclinical findings is nec essary to determine the clinicalsignifi cance of this result. Results using different metho dologies should not be c omparedto one another as bindu titative results may nicky y by method. CBC W/AUTO [id number] 16:40:00 Test Item Value Reference Range Interpretation Comments WHITE BLOOD CELL (test code = 9.0 x10 3/uL 4.5-11.0 N WBC) RED BLOOD CELL (test code = 5.02 x10 6/uL 4.00-5.60 N RBC) HEMOGLOBIN (test code = HGB) 14.0 g/dL 12.5-16.9 N HEMATOCRIT (test code = HCT) 46.3 % 37.5-50.7 N MEAN CELL VOLUME (test code = 92.2 fL 81.0-99.0 N MCV) MEAN CELL HGB (test code = MCH) 27.9 pg 27.0-33.0 N MEAN CELL HGB CONCETRATION 30.2 g/dL 33.0-37.0 L (test code = MCHC) RED CELL DISTRIBUTION WIDTH CV 15.2 % 11.5-14.5 H (test code = RDW) RED CELL DISTRIBUTION WIDTH SD 51.4 fL 37.0-54.0 N (test code = RDW-SD) PLATELET COUNT (test code = 237 x10 3/uL 150-400 N PLT) MEAN PLATELET VOLUME (test code 8.9 fL 7.0-9.0 N = MPV) NEUTROPHIL % (test code = NT%) 40.6 % 56.0-77.0 L IMMATURE GRANULOCYTE % (test 0.3 % 0.0-2.0 N code = IG%) LYMPHOCYTE % (test code = LY%) 45.7 % 14.0-32.0 H MONOCYTE % (test code = MO%) 12.5 % 4.8-9.0 H EOSINOPHIL % (test code = EO%) 0.6 % 0.3-3.7 N BASOPHIL % (test code = BA%) 0.3 % 0.0-2.0 N NUCLEATED RBC % (test code = 0.0 % 0-0 N NRBC%) NEUTROPHIL # (test code = NT#) 3.66 x10 3/uL 2.0-7.6 N IMMATURE GRANULOCYTE # (test 0.03 x10 3/uL 0.00-0.03 N code = IG#) LYMPHOCYTE # (test code = LY#) 4.13 x10 3/uL 1.0-3.8 H MONOCYTE # (test code = MO#) 1.13 x10 3/uL 0.1-0.8 H EOSINOPHIL # (test code = EO#) 0.05 x10 3/uL 0.0-0.2 N BASOPHIL # (test code = BA#) 0.03 x10 3/uL 0.0-0.2 N NUCLEATED RBC # (test code = 0.00 x10 3/uL 0.0-0.1 N NRBC#) MANUAL DIFF REQUIRED (test code NO = MDIFF) CBC W/AUTO [id number] 16:39:00 Test Item Value Reference Range Interpretation Comments WHITE BLOOD CELL (test code = x10 3/uL 4.5-11.0 WBC) RED BLOOD CELL (test code = RBC) x10 6/uL 4.00-5.60 HEMOGLOBIN (test code = HGB) 14.0 g/dL 12.5-16.9 N HEMATOCRIT (test code = HCT) 46.3 % 37.5-50.7 N MEAN CELL VOLUME (test code = fL 81.0-99.0 MCV) MEAN CELL HGB (test code = MCH) pg 27.0-33.0 MEAN CELL HGB CONCETRATION (test g/dL 33.0-37.0 code = MCHC) RED CELL DISTRIBUTION WIDTH CV % 11.5-14.5 (test code = RDW) PLATELET COUNT (test code = PLT) 237 x10 3/uL 150-400 N NEUTROPHIL % (test code = NT%) % 56.0-77.0 LYMPHOCYTE % (test code = LY%) % 14.0-32.0 NEUTROPHIL # (test code = NT#) x10 3/uL 2.0-7.6 LYMPHOCYTE # (test code = LY#) x10 3/uL 1.0-3.8 MANUAL DIFF REQUIRED (test code = MDIFF) - XR CHEST 1 [id number] 20:33:00 [facility] : 1970 Sex: M FAX: Shawn Elias MD [phone] [place]: [address]: REG Name: GERMÁN EUBANKS [facility] Duong Mackey : 1970 Age/S: 50/M [address] [place] [address] Unit #: [id number] Loc: [place] [address] Phys: Shawn Elias MD Acct: [id number] Dis Date: Status: REG ER PHONE #: [phone] Exam Date: 12/08/20202015 FAX #: [phone] Reason: Chest Pain EXAMS: CPT CODE: [id number] XR CHEST 1 V 09889 SINGLE VIEW RADIOGRAPH CHEST INDICATION: Chest Pain. TECHNIQUE: A single view frontal radiograph of the chest was obtained. COMPARISONS: CTA chest 09/08/2020. Chest x-ray 09/08/2020. FINDINGS: There is no acute osseous fracture or dislocation. There is no subdiaphragmatic free gas. The cardiomediastinal size and contour are normal. Thereis a right-sided Ngvmht-f-Tdka catheter with catheter tip in the superior vena cava. There is no pneumothorax, pleural effusion or organized pneumonia. IMPRESSION: 1. No acute cardiopulmonary process. at 2032 Reported and signed by: Humberto lAberts D.O. CC: Shawn Elias MD Technologist: RT Patsy(R) Trnscrd Date/Time/By: 12/08/2020 (2032) : By: [email or web address] Orig Print D/T: S: 12/08/2020 (2035) PAGE 1 Signed ReportVENOUS THROMBOPHILIA [id number] 15:04:00 Test Item Value Reference Interpretation Comments Range PROTHROMBIN 3 NO MUTATION () PROTHROMBIN (F ACTOR II UNTRANSLATED (test DETECTED (L53593B) MUTATION code = [id number]) INTERPRETATI ON:This individual is n egative (normal) for th e [id number] in the Prothrombin/Fac tor II gene. Increased riskof thrombophilia c an be caused by a nicky iety of genetic andnon- genetic factors not scr eened for this assay. Lab oratory testing supervi sed and results monitor ed Crystal michaels M.D. MUTATION ANALYS IS:The [id number] mutatio n in the Prothrombin/Fac torII gene is thesecond mo st common inherited risk factor for thrombosisoccur ing in approximately 2 % of Caucasions. Pre sence of themutation is associated with an elevati on of prothrombinleve ls to about 30% above tori l in heterozygotes a nd to 70%above normal in homozygotes. Th e Prothrombin/Fac tor II isperformed on an automated syste m and integrates samplepurificat ion, nucleic acid amplification, and detection ofthe target sequence in who le blood using real-time polymerase chain reaction (PCR) assays. Althoug h rare. falsepositive o r false negative result s may occur. All resu ltsshould be interpreted in the context of clin ical findings,releva nt history, and other labor atory data. [facility] is certifiedunder the Clinical Labora tory Improvement Vasile ndment (CLIA)as qualif ied to perform high co mplexity testing. PROTHROMBIN TIME 13.5 SECONDS 9.3-12.9 H PATIENT (test code = PTP) INTERNATIONAL 1.2 0.8-1.2 N TARGET INR NORMAL RATIO (test BY INDICA TION Indication code = INR) INR1. Prophylaxis of venous thrombosis 2.0 - 3.0 (orthop edic surgery), Proph ylaxis of venous thrombos is (other than high-risk surgery), Treatment of De ep Vein Thrombosis/Pulm onary Embolism, Preve ntion of systemic emboli sm - Tissue heart valves, Acute Myocardial Infa rction (to prevent syste shailesh embolism), Valv ular heart disease, Atri al Fibrillation, B ileaflet mechanical va lve in aortic position .2. Mechanical pros thetic valves (high ri sk), 2.5 - 3.5 Presenc e of Lupus Anticoagulant o r Antiphospholipi d Antibodies, Pre vention of systemic embol ism - Acute Myocardial Infa rction (to prevent rec urrent infarct). THROMBOPLASTIN 32.6 Seconds 25.0-39.5 N Therapeut ic Range: TIME PARTIAL (test 50.4 - 88 .3 Seconds code = PTT) Effective 01/24/2019 PTT 1:1 MIX DIALYSIS TECHNICIAN TEST NOT () (test code = PERFORMED PTTMIX2) SECONDS PTT 1:3 MIX (test TEST NOT () code = PTTMIX3) PERFORMED SECONDS PT 1:2 MIX (test TEST NOT () Mixing stud y not indicated code = PTMIX2) PERFORMED due to normal patient is SECONDS onanticoagulant s (anti-Xa level is 0.27 I U/mL). RVVT PATIENT (test 1.1 RATIO 0.0-1.3 code = RVVTPAT) ACTIVATED PROT C 3.10 RATIO 2.31-5.00 Ratios > or = to 2.31 are RESISTANCE (test considered negative for code = APC) the FactorV Lei den. SILICA CLOTTING 0.97 <1.19 PT 15.2 sec (10.5-13.4)PTT TIME (test code = 34 sec (25 -37) A Lupus SILCLOT) Anticoagulant i s NOT DETECTED. This interpretationi s based on the test result s. Prolonged scree stefani tests and negative co nfirmatory testsmay be cau sed by factor deficien cies or anticoagulantth erapy. Patient's anti- Xa level is 0.27 IU/mL. ANTITHROMBIN III 84 % 83-128 Acquired an tithrombin (ATIII) (test code deficienc y may occur with = AT3) renalfailure as sociated with proteinuri a nephrotic syndrome,liver failure or cirrhosis or an immature liver secondary topremature bir th, accelerated con sumption due to severein jury, DIC, or recent throm bosis, and heparin therapy .Hereditary deficiency of a ntithrombin show decreased levelsbut are rare. [place] neil antithrombin le vels are notclinicallt s ignificant. PROTEIN C 87 % 70-140 Protein C defic iency may FUNCTIONAL (test be acquired due to code = PROTCFN) recentthromb osis, oral anticoagulant t herapy, hepatic disorders,post- surgery, DIC, and vitami n K deficiency. Hereditarydefic iency show decreased level s but are rare. ElevatedP rotein C levels are not clinically significant. On ly decreased level s are associated with increased thromboticrisk. However, oral anti-Xa or anti-thrombin m edications maycause falsel y increased levels of Prote in C. PROTEIN S FREE 127 % 68-126 H Protein S def iciency may (test code = be acquired due to PROTSFR) recentthrombosi s, oral anticoagulant t herapy, , oralcontracepti ves or hormone replace ment therapy, liverd ysfunction, recent surgery, DIC, and vitamin K deficiency.Here ditary deficiency of P rotein S show decreased levels butare rare. El evated Protein S level s are not clinicallysigni ficant. Only decreased levels are associated with anincreased thr ombotic risk. CM IGG (test code 2.2 GPL <=15 = ACAG) CM IGA (test code 0.6 APL <=12 = ACAA) CM IGM (test code 12.9 MPL <=12.5 A The Antip hospholipid = ACAM) Syndrome (APS) is a clinical pathologiccondi tion that includes a clin ical event (vascularthromb osis, morta lity, thrombocytopeni a, etc.) andpersistent p ositivity of antiphosphol ipid antibodies (IgG orIgM CM>40 GPL/MPL, IgG or IgM anti-B2GPI anti bodies, or thepresence of a Lupus Anticoagulant). The InternationalCo nsensus guidelines sugg est that these isotypes must bepresent on tw o or more occasions and a t least 12 weeks apartto c onfirm antibody persis tence. Although the Ig A isotypehas been implicated in thrombotic e vents, these isotypesh ave not yet been included i nto the APS criteria. YYEE-4-HADDH I IGM 2.7 SMU 0.0-20.0 (test code = GPIIGM) ZNDP-6-QTEBI I IGG 0.0 SGU 0.0-20.0 (test code = GPIIGG) OGFP-8-DRYWR I IGA 1.7 STAS 0.0-20.0 The Antip hospholipid (test code = Syndrome (APS) is a GPIIGA) clinical pathologiccondi tion that includes a clin ical event (vascularthromb osis, morta lity, thrombocytopeni a, etc.) andpersistent p ositivity of antiphosphol ipid antibodies (IgG orIgM CM>40 GPL/MPL, IgG or IgM anti-B2GPI anti bodies, or thepresence of a Lupus Anticoagulant). The InternationalCo nsensus guidelines sugg est that these isotypes must bepresent on tw o or more occasions and a t least 12 weeks apartto c onfirm antibody persis tence. Although the Ig A isotypehas been implicated in thrombotic e vents, these isotypesh ave not yet been included i nto the APS criteria. HOMOCYSTEINE (test 16.5 umol/L 3.2-10.7 H code = HOMOCY) VENOUS THROMBOPHILIA [id number] 14:52:00 Test Item Value Reference Interpretation Comments Range PROTHROMBIN 3 UNTRANSLATED (test code = [id number]) PROTHROMBIN TIME 13.5 SECONDS 9.3-12.9 H PATIENT (test code = PTP) INTERNATIONAL 1.2 0.8-1.2 N TARGET INR NORMAL RATIO (test BY INDICA TION Indication code = INR) INR1. Prophylaxis of venous thrombosis 2.0 - 3.0 (orthop edic surgery), Proph ylaxis of venous thrombos is (other than high-risk surgery), Treatment of De ep Vein Thrombosis/Pulm onary Embolism, Preve ntion of systemic emboli sm - Tissue heart valves, Acute Myocardial Infa rction (to prevent syste shailesh embolism), Valv ular heart disease, Atri al Fibrillation, B ileaflet mechanical va lve in aortic position .2. Mechanical pros thetic valves (high ri sk), 2.5 - 3.5 Presenc e of Lupus Anticoagulant o r Antiphospholipi d Antibodies, Pre vention of systemic embol ism - Acute Myocardial Infa rction (to prevent rec urrent infarct). THROMBOPLASTIN 32.6 Seconds 25.0-39.5 N Therapeut ic Range: TIME PARTIAL (test 50.4 - 88 .3 Seconds code = PTT) Effective 01/24/2019 PTT 1:1 MIX DIALYSIS TECHNICIAN TEST NOT () (test code = PERFORMED PTTMIX2) SECONDS PTT 1:3 MIX (test TEST NOT () code = PTTMIX3) PERFORMED SECONDS PT 1:2 MIX (test TEST NOT () Mixing stud y not indicated code = PTMIX2) PERFORMED due to normal patient is SECONDS onanticoagulant s (anti-Xa level is 0.27 I U/mL). RVVT PATIENT (test 1.1 RATIO 0.0-1.3 code = RVVTPAT) ACTIVATED PROT C 3.10 RATIO 2.31-5.00 Ratios > or = to 2.31 are RESISTANCE (test considered negative for code = APC) the FactorV Lei den. SILICA CLOTTING 0.97 <1.19 PT 15.2 sec (10.5-13.4)PTT TIME (test code = 34 sec (25 -37) A Lupus SILCLOT) Anticoagulant i s NOT DETECTED. This interpretationi s based on the test result s. Prolonged scree stefani tests and negative co nfirmatory testsmay be cau sed by factor deficien cies or anticoagulantth erapy. Patient's anti- Xa level is 0.27 IU/mL. ANTITHROMBIN III 84 % 83-128 Acquired an tithrombin (ATIII) (test code deficienc y may occur with = AT3) renalfailure as sociated with proteinuri a nephrotic syndrome,liver failure or cirrhosis or an immature liver secondary topremature bir th, accelerated con sumption due to severein jury, DIC, or recent throm bosis, and heparin therapy .Hereditary deficiency of a ntithrombin show decreased levelsbut are rare. [place] neil antithrombin le vels are notclinicallt s ignificant. PROTEIN C 87 % 70-140 Protein C defic iency may FUNCTIONAL (test be acquired due to code = PROTCFN) recentthromb osis, oral anticoagulant t herapy, hepatic disorders,post- surgery, DIC, and vitami n K deficiency. Hereditarydefic iency show decreased level s but are rare. ElevatedP rotein C levels are not clinically significant. On ly decreased level s are associated with increased thromboticrisk. However, oral anti-Xa or anti-thrombin m edications maycause falsel y increased levels of Prote in C. PROTEIN S FREE 127 % 68-126 H Protein S def iciency may (test code = be acquired due to PROTSFR) recentthrombosi s, oral anticoagulant t herapy, , oralcontracepti ves or hormone replace ment therapy, liverd ysfunction, recent surgery, DIC, and vitamin K deficiency.Here ditary deficiency of P rotein S show decreased levels butare rare. El evated Protein S level s are not clinicallysigni ficant. Only decreased levels are associated with anincreased thr ombotic risk. CM IGG (test code 2.2 GPL <=15 = ACAG) CM IGA (test code 0.6 APL <=12 = ACAA) CM IGM (test code 12.9 MPL <=12.5 A The Antip hospholipid = ACAM) Syndrome (APS) is a clinical pathologiccondi tion that includes a clin ical event (vascularthromb osis, morta lity, thrombocytopeni a, etc.) andpersistent p ositivity of antiphosphol ipid antibodies (IgG orIgM CM>40 GPL/MPL, IgG or IgM anti-B2GPI anti bodies, or thepresence of a Lupus Anticoagulant). The InternationalCo nsensus guidelines sugg est that these isotypes must bepresent on tw o or more occasions and a t least 12 weeks apartto c onfirm antibody persis tence. Although the Ig A isotypehas been implicated in thrombotic e vents, these isotypesh ave not yet been included i nto the APS criteria. YOPC-2-ZMBOK I IGM 2.7 SMU 0.0-20.0 (test code = GPIIGM) EDFB-1-ECGMA I IGG 0.0 SGU 0.0-20.0 (test code = GPIIGG) JLBG-6-QRNQW I IGA 1.7 STAS 0.0-20.0 The Antip hospholipid (test code = Syndrome (APS) is a GPIIGA) clinical pathologiccondi tion that includes a clin ical event (vascularthromb osis, morta lity, thrombocytopeni a, etc.) andpersistent p ositivity of antiphosphol ipid antibodies (IgG orIgM CM>40 GPL/MPL, IgG or IgM anti-B2GPI anti bodies, or thepresence of a Lupus Anticoagulant). The InternationalCo nsensus guidelines sugg est that these isotypes must bepresent on tw o or more occasions and a t least 12 weeks apartto c onfirm antibody persis tence. Although the Ig A isotypehas been implicated in thrombotic e vents, these isotypesh ave not yet been included i nto the APS criteria. HOMOCYSTEINE (test 16.5 umol/L 3.2-10.7 H code = HOMOCY) VENOUS THROMBOPHILIA [id number] 14:44:00 Test Item Value Reference Interpretation Comments Range PROTHROMBIN 3 UNTRANSLATED (test code = [id number]) PROTHROMBIN TIME 13.5 SECONDS 9.3-12.9 H PATIENT (test code = PTP) INTERNATIONAL 1.2 0.8-1.2 N TARGET INR NORMAL RATIO (test BY INDICA TION Indication code = INR) INR1. Prophylaxis of venous thrombosis 2.0 - 3.0 (orthop edic surgery), Proph ylaxis of venous thrombos is (other than high-risk surgery), Treatment of De ep Vein Thrombosis/Pulm onary Embolism, Preve ntion of systemic emboli sm - Tissue heart valves, Acute Myocardial Infa rction (to prevent syste shailesh embolism), Valv ular heart disease, Atri al Fibrillation, B ileaflet mechanical va lve in aortic position .2. Mechanical pros thetic valves (high ri sk), 2.5 - 3.5 Presenc e of Lupus Anticoagulant o r Antiphospholipi d Antibodies, Pre vention of systemic embol ism - Acute Myocardial Infa rction (to prevent rec urrent infarct). THROMBOPLASTIN 32.6 Seconds 25.0-39.5 N Therapeut ic Range: TIME PARTIAL (test 50.4 - 88 .3 Seconds code = PTT) Effective 01/24/2019 PTT 1:1 MIX DIALYSIS TECHNICIAN TEST NOT () (test code = PERFORMED PTTMIX2) SECONDS PTT 1:3 MIX (test TEST NOT () code = PTTMIX3) PERFORMED SECONDS PT 1:2 MIX (test TEST NOT () Mixing stud y not indicated code = PTMIX2) PERFORMED due to normal patient is SECONDS onanticoagulant s (anti-Xa level is 0.27 I U/mL). RVVT PATIENT (test 1.1 RATIO 0.0-1.3 code = RVVTPAT) ACTIVATED PROT C 3.10 RATIO 2.31-5.00 Ratios > or = to 2.31 are RESISTANCE (test considered negative for code = APC) the FactorV Lei den. SILICA CLOTTING 0.97 <1.19 PT 15.2 sec (10.5-13.4)PTT TIME (test code = 34 sec (25 -37) A Lupus SILCLOT) Anticoagulant i s NOT DETECTED. This interpretationi s based on the test result s. Prolonged scree stefani tests and negative co nfirmatory testsmay be cau sed by factor deficien cies or anticoagulantth erapy. Patient's anti- Xa level is 0.27 IU/mL. ANTITHROMBIN III 84 % 83-128 Acquired an tithrombin (ATIII) (test code deficienc y may occur with = AT3) renalfailure as sociated with proteinuri a nephrotic syndrome,liver failure or cirrhosis or an immature liver secondary topremature bir th, accelerated con sumption due to severein jury, DIC, or recent throm bosis, and heparin therapy .Hereditary deficiency of a ntithrombin show decreased levelsbut are rare. [place] neil antithrombin le vels are notclinicallt s ignificant. PROTEIN C 87 % 70-140 Protein C defic iency may FUNCTIONAL (test be acquired due to code = PROTCFN) recentthromb osis, oral anticoagulant t herapy, hepatic disorders,post- surgery, DIC, and vitami n K deficiency. Hereditarydefic iency show decreased level s but are rare. ElevatedP rotein C levels are not clinically significant. On ly decreased level s are associated with increased thromboticrisk. However, oral anti-Xa or anti-thrombin m edications maycause falsel y increased levels of Prote in C. PROTEIN S FREE 127 % 68-126 H Protein S def iciency may (test code = be acquired due to PROTSFR) recentthrombosi s, oral anticoagulant t herapy, , oralcontracepti ves or hormone replace ment therapy, liverd ysfunction, recent surgery, DIC, and vitamin K deficiency.Here ditary deficiency of P rotein S show decreased levels butare rare. El evated Protein S level s are not clinicallysigni ficant. Only decreased levels are associated with anincreased thr ombotic risk. CM IGG (test code 2.2 GPL <=15 = ACAG) CM IGA (test code 0.6 APL <=12 = ACAA) CM IGM (test code 12.9 MPL <=12.5 A The Antip hospholipid = ACAM) Syndrome (APS) is a clinical pathologiccondi tion that includes a clin ical event (vascularthromb osis, morta lity, thrombocytopeni a, etc.) andpersistent p ositivity of antiphosphol ipid antibodies (IgG orIgM CM>40 GPL/MPL, IgG or IgM anti-B2GPI anti bodies, or thepresence of a Lupus Anticoagulant). The International[employer] nsensus guidelines sugg est that these isotypes must bepresent on tw o or more occasions and a t least 12 weeks apartto c onfirm antibody persis tence. Although the Ig A isotypehas been implicated in thrombotic e vents, these isotypesh ave not yet been included i nto the APS criteria. MVRL-4-KJTLS I IGM SMU <20 (test code = GPIIGM) ZSEX-0-MPRPX I IGG UNITS <20 (test code = GPIIGG) MJDS-5-KXLVE I IGA 0.0-20.0 (test code = GPIIGA) HOMOCYSTEINE (test 16.5 umol/L 3.2-10.7 H code = HOMOCY) PROTEIN ELECTROPHORESIS [id number] 21:07:00 Test Item Value Reference Range Interpretation Comments TOTAL PROTEIN 6.7 g/dL 6.0-8.5 (test code = PROTE) ALBUMIN (test 3.9 g/dL 2.9-4.4 code = ALBE) BDZUI-6-RGVSPISS 0.2 g/dL 0.0-0.4 (test code = A1G) RNGOJ-5-DPPQURNP 0.5 g/dL 0.4-1.0 (test code = A2G) BETA GLOBULIN 1.2 g/dL 0.7-1.3 (test code = BG) GAMMA GLOBULIN 0.9 g/dL 0.4-1.8 (test code = GG) M-SPIKE,SERUM Not Observed g/dL Not Observed (test code = MSPIKES) GLOBULIN ELECT 2.8 g/dL 2.2-3.9 (test code = GLOBE) ALBUMIN/GLOBULIN 1.4 0.7-1.7 RATIO (test code = AGE) PROT.ELECTROPH.IN () The SPE pa ttern TERPRETATION appears (test code = unremarkable. ELEINT) Evidence ofmonoclonal pr otein is not apparent.Perfor med At: HD [facility] [id number], [place] [id number] Amadou Mejia MD Ph:[phone] rform ed At: DA [facility] [id number] [place] [id number] h HARJINDER DALEY Ph:[phone] LACTIC DEHYDROGENASE(LDH)2020-09-11 21:07:00 Test Item Value Reference Range Interpretation Comments LACTIC DEHYDROGENASE(LDH) (test 281 IUnits/L 87-241 H code = LDH) TOTAL IRON BINDING [id number] 21:07:00 Test Item Value Reference Range Interpretation Comments SERUM IRON (test code = IRON) 285 mcg/dL 35-150 H TOTAL IRON BINDING CAPACITY (test 483 mcg/dL 260-445 H code = TIBC) UIBC (test code = UIBC) 198 mcg/dL IRON SATURATION (test code = 59.0 % 14-34 H FESAT) VITAMIN [id number] 21:07:00 Test Item Value Reference Range Interpretation Comments VITAMIN B12 (test code = VITB12) 389 pg/mL 193-986 N FOLIC [id number] 21:07:00 Test Item Value Reference Range Interpretation Comments FOLIC ACID (test code = FOL) 9.9 ng/mL 3.1-17.5 N [id number] 21:07:00 Test Item Value Reference Range Interpretation Comments FERRITIN (test code = DESIREE) 17.7 ng/mL 23.9-336.2 L [id number] 14:10:00 Test Item Value Reference Range Interpretation Comments HAPTOGLOBIN (test code = 99 mg/dL 23-355 Per formed At: BN HAPT) [facility] [address] [id number] Benito DALEY Ph:[phone] VENOUS THROMBOPHILIA [id number] 10:37:00 Test Item Value Reference Interpretation Comments Range PROTHROMBIN 3 UNTRANSLATED (test code = [id number]) PROTHROMBIN TIME 13.5 SECONDS 9.3-12.9 H PATIENT (test code = PTP) INTERNATIONAL 1.2 0.8-1.2 N TARGET NORMAL RATIO (test INR BY IN DICATION code = INR) Indication INR1. Prophylax is of venous thrombos is 2.0 - 3.0 (orthopedic minesh graham), Prophylaxis of venous thrombosis (oth er than high-risk minesh graham), Treatment of De ep Vein Thrombosis/Pulm onary Embolism, Preve ntion of systemic emb olism - Tissue heart va lves, Acute Myocardia l Infarction (to prevent systemic emboli sm), Valvular heart disease, Atrial Fibrill ation, Bileaflet mecha nical valve in aortic position.2. Mec hanical prosthetic valv es (high risk), 2.5 - 3.5 Presence of Lup us Anticoagulant o r Antiphospholipi d Antibodies, Pre vention of systemic e mbolism - Acute Myocardia l Infarction (t o prevent recurrent infar ct). THROMBOPLASTIN TIME 32.6 Seconds 25.0-39.5 N Ther apeutic Range: PARTIAL (test code 50.4 - 88 .3 Seconds = PTT) Effectiv e 01/24/2019 PTT 1:1 MIX DIALYSIS TECHNICIAN TEST NOT () (test code = PERFORMED PTTMIX2) SECONDS PTT 1:3 MIX (test TEST NOT () code = PTTMIX3) PERFORMED SECONDS PT 1:2 MIX (test TEST NOT () Mixing stud y not code = PTMIX2) PERFORMED indicated due to normal SECONDS patient is onanticoagulant s (anti-Xa level is 0.27 IU/mL). RVVT PATIENT (test 1.1 RATIO 0.0-1.3 code = RVVTPAT) ACTIVATED PROT C 3.10 RATIO 2.31-5.00 Ratios > or = to 2.31 RESISTANCE (test are conside red negative code = APC) for the FactorV Leiden. SILICA CLOTTING 0.97 <1.19 PT 15.2 sec TIME (test code = (10.5-13.4 )PTT 34 sec SILCLOT) (25-37) A Lupus Anticoagulant i s NOT DETECTED. This interpretationi s based on the test res ults. Prolonged scree stefani tests and negat rajani confirmatory te stsmay be caused by facto r deficiencies or anticoagulantth erapy. Patient's anti- Xa level is 0.27 IU/mL. ANTITHROMBIN III 84 % 83-128 Acquired an tithrombin (ATIII) (test code deficienc y may occur = AT3) with renalfailu re associated with proteinuria nep hrotic syndrome,liver failure or cirrhosis or an immature liver secondary topremature bir th, accelerated con sumption due to severein jury, DIC, or recent thrombosis, and heparin therapy.Heredit marlin deficiency of antithrombin sh ow decreased level sbut are rare. Elevated antithrombin le vels are notclinicallt significant. PROTEIN C 87 % 70-140 Protein C defic iency may FUNCTIONAL (test be acquired due to code = PROTCFN) recentthromb osis, oral anticoagulant t herapy, hepatic disorders,post- surgery, DIC, and vitami n K deficiency. Hereditarydefic iency show decreased levels but are rare. ElevatedProtein C levels are not clinica lly significant. On ly decreased level s are associated with increased thromboticrisk. However, oral anti-Xa or anti-thrombin medications may cause falsely increas ed levels of Protein C. PROTEIN S FREE 127 % 68-126 H Protein S def iciency may (test code = be acquired due to PROTSFR) recentthrombosi s, oral anticoagulant t herapy, , oralcontracepti ves or hormone replace ment therapy, liverdysfunctio n, recent surgery, DIC, a nd vitamin K deficiency.Here ditary deficiency of P rotein S show decreased levels butare rare. El evated Protein S level s are not clinicallysigni ficant. Only decreased levels are associated with anincreased thr ombotic risk. CM IGG (test code = ACAG) CM IGA (test code = ACAA) CM IGM (test code = ACAM) DVCI-8-FOQFE I IGM SMU <20 (test code = GPIIGM) DAGI-5-BFAFB I IGG UNITS <20 (test code = GPIIGG) VXWQ-2-JRFKC I IGA 0.0-20.0 (test code = GPIIGA) HOMOCYSTEINE (test 16.5 umol/L 3.2-10.7 H code = HOMOCY) VENOUS THROMBOPHILIA [id number] 12:40:00 Test Item Value Reference Interpretation Comments Range PROTHROMBIN 3 UNTRANSLATED (test code = [id number]) PROTHROMBIN TIME 13.5 SECONDS 9.3-12.9 H PATIENT (test code = PTP) INTERNATIONAL 1.2 0.8-1.2 N TARGET NORMAL RATIO (test INR BY IN DICATION code = INR) Indication INR1. Prophylax is of venous thrombos is 2.0 - 3.0 (orthopedic minesh graham), Prophylaxis of venous thrombosis (oth er than high-risk minesh graham), Treatment of De ep Vein Thrombosis/Pulm onary Embolism, Preve ntion of systemic emboli sm - Tissue heart va lves, Acute Myocardia l Infarction (to prevent systemic emboli sm), Valvular heart disease, Atrial Fibrilla tion, Bileaflet mecha nical valve in aortic position.2. Mec hanical prosthetic valv es (high risk), 2.5 - 3.5 Presence of Lup us Anticoagulant o r Antiphospholipi d Antibodies, Pre vention of systemic embo lism - Acute Myocardia l Infarction (t o prevent recurrent infar ct). THROMBOPLASTIN TIME 32.6 Seconds 25.0-39.5 N Ther apeutic Range: PARTIAL (test code 50.4 - 88 .3 Seconds = PTT) Effective 01/24/2019 PTT 1:1 MIX DIALYSIS TECHNICIAN SECONDS () (test code = PTTMIX2) PTT 1:3 MIX (test SECONDS () code = PTTMIX3) PT 1:2 MIX (test SECONDS () Mixing stud y not code = PTMIX2) indicated due to normal patient is onanticoagulant s (anti-Xa level is 0.27 I U/mL). RVVT PATIENT (test 1.1 RATIO 0.0-1.3 code = RVVTPAT) ACTIVATED PROT C 3.10 RATIO 2.31-5.00 Ratios > or = to 2.31 are RESISTANCE (test considered negative for code = APC) the FactorV Lei den. SILICA CLOTTING 0.97 <1.19 PT 15.2 sec TIME (test code = (10.5-13.4 )PTT 34 sec SILCLOT) (25-37) A Lupus Anticoagulant i s NOT DETECTED. This interpretationi s based on the test result s. Prolonged scree stefani tests and negative co nfirmatory testsmay be cau sed by factor deficien cies or anticoagulantth erapy. Patient's anti- Xa level is 0.27 IU/mL. ANTITHROMBIN III 84 % 83-128 Acquired an tithrombin (ATIII) (test code deficienc y may occur with = AT3) renalfailure as sociated with proteinuri a nephrotic syndr ome,liver failure or cirr hosis or an immature [place] er secondary topre mature , accelera neil consumption due to severeinjury, D IC, or recent thrombos is, and heparin therapy.Heredit marlin deficiency of antithrombin sh ow decreased level sbut are rare. Elevated antithrombin le vels are notclinicallt significant. PROTEIN C 87 % 70-140 Protein C defic iency may FUNCTIONAL (test be acquired due to code = PROTCFN) recentthromb osis, oral anticoagulant t herapy, hepatic disorders,post- surgery, DIC, and vitami n K deficiency. Hereditarydefic iency show decreased level s but are rare. ElevatedP rotein C levels are not clinically significant. On ly decreased level s are associated with increased thromboticrisk. However, oral anti-Xa or anti-thrombin m edications maycause falsel y increased level s of Protein C. PROTEIN S FREE 127 % 68-126 H Protein S def iciency may (test code = be acquired due to PROTSFR) recentthrombosi s, oral anticoagulant t herapy, , oralcontracepti ves or hormone replace ment therapy, liverdysfunctio n, recent surgery, DIC, a nd vitamin K deficiency.He reditary deficiency of P rotein S show decreased levels butare rare. El evated Protein S level s are not clinicallysigni ficant. Only decreased levels are associated with anincreased thr ombotic risk. CM IGG (test code = ACAG) CM IGA (test code = ACAA) CM IGM (test code = ACAM) MHBU-8-EHMHY I IGM SMU <20 (test code = GPIIGM) PMKZ-2-VVNPU I IGG UNITS <20 (test code = GPIIGG) VJCK-7-IHXXK I IGA 0.0-20.0 (test code = GPIIGA) HOMOCYSTEINE (test 16.5 umol/L 3.2-10.7 H code = HOMOCY) VENOUS THROMBOPHILIA [id number] 12:39:00 Test Item Value Reference Range Interpretation Comments PROTHROMBIN 3 UNTRANSLATED (test code = [id number]) PROTHROMBIN TIME 13.5 SECONDS 9.3-12.9 H PATIENT (test code = PTP) INTERNATIONAL NORMAL 1.2 0.8-1.2 N TARGET RATIO (test code = INR BY IN DICATION INR) Indication INR1. Prophyl axis of venous thrombos is 2.0 - 3. 0 (orthopedic minesh graham), Prophylaxis of venous thrombos is (other than hig h-risk surgery), Court tment of Deep Vein Thrombosis/Pulm onary Embolism, Preve ntion of systemic emb olism - Tissue heart va lves, Acute Myocardia l Infarction (to prevent systemic embo lism), Valvular heart disease, Atri al Fibrillation, Bileaflet mecha nical valve in aortic position.2. Mec hanical prosthetic valv es (high risk), 2.5 - 3.5 Presence of Lupus Anticoagu lant or Antiphospholi pid Antibodies, Pre vention of systemic e mbolism - Acute Myocard ial Infarction (t o prevent recurre nt infarct). THROMBOPLASTIN TIME 32.6 Seconds 25.0-39.5 N Ther apeutic Range: PARTIAL (test code = 50.4 - 88.3 Seconds PTT) Effect rajani 01/24/2019 PTT 1:1 MIX DIALYSIS TECHNICIAN (test SECONDS () code = PTTMIX2) PTT 1:3 MIX (test SECONDS () code = PTTMIX3) PT 1:2 MIX (test SECONDS () Mixing stud y not code = PTMIX2) indicated due to normal patient is onanticoagulant s (anti-Xa level is 0.27 IU/mL). RVVT PATIENT (test 1.1 RATIO 0.0-1.3 code = RVVTPAT) ACTIVATED PROT C RESISTANCE (test code = APC) SILICA CLOTTING TIME 0.97 <1.19 PT 15.2 sec (test code = (10.5-13.4)PTT 34 sec SILCLOT) (25-37) A Lupus Anticoagulant i s NOT DETECTED. This interpretationi s based on the test res ults. Prolonged scree stefani tests and negat rajani confirmatory te stsmay be caused by fa ctor deficiencies or anticoagulantth erapy. Patient's anti- Xa level is 0.27 I U/mL. ANTITHROMBIN III 84 % 83-128 Acquired an tithrombin (ATIII) (test code = deficie ncy may occur AT3) with renalfailu re associated with proteinuria nep hrotic syndrome,liver failure or cirrhosis or an immature liver secondary topre mature , accelera neil consumption due to severeinjury, D IC, or recent thrombos is, and heparin therapy.Heredit marlin deficiency of antithrombin sh ow decreased level sbut are rare. [place] neil antithrombin le vels are notclinical lt significant. PROTEIN C FUNCTIONAL % (test code = PROTCFN) PROTEIN S FREE (test % code = PROTSFR) CM IGG (test code = ACAG) CM IGA (test code = ACAA) CM IGM (test code = ACAM) SBMF-3-GULZN I IGM SMU <20 (test code = GPIIGM) THKD-7-EVLTT I IGG UNITS <20 (test code = GPIIGG) KVCE-2-YLDPF I IGA 0.0-20.0 (test code = GPIIGA) HOMOCYSTEINE (test 16.5 umol/L 3.2-10.7 H code = HOMOCY) VENOUS THROMBOPHILIA [id number] 12:39:00 Test Item Value Reference Interpretation Comments Range PROTHROMBIN 3 UNTRANSLATED (test code = [id number]) PROTHROMBIN TIME 13.5 SECONDS 9.3-12.9 H PATIENT (test code = PTP) INTERNATIONAL 1.2 0.8-1.2 N TARGET NORMAL RATIO (test INR BY IN DICATION code = INR) Indication INR1. Prophylax is of venous thrombos is 2.0 - 3.0 (orthopedic minesh graham), Prophylaxis of venous thrombosis (oth er than high-risk minesh graham), Treatment of De ep Vein Thrombosis/Pulm onary Embolism, Preve ntion of systemic emboli sm - Tissue heart va lves, Acute Myocardia l Infarction (to prevent systemic emboli sm), Valvular heart disease, Atrial Fibrilla tion, Bileaflet mecha nical valve in aortic position.2. Mec hanical prosthetic valv es (high risk), 2.5 - 3.5 Presence of Lup us Anticoagulant o r Antiphospholipi d Antibodies, Pre vention of systemic embo lism - Acute Myocardia l Infarction (t o prevent recurrent infar ct). THROMBOPLASTIN TIME 32.6 Seconds 25.0-39.5 N Ther apeutic Range: PARTIAL (test code 50.4 - 88 .3 Seconds = PTT) Effective 01/24/2019 PTT 1:1 MIX DIALYSIS TECHNICIAN SECONDS () (test code = PTTMIX2) PTT 1:3 MIX (test SECONDS () code = PTTMIX3) PT 1:2 MIX (test SECONDS () Mixing stud y not code = PTMIX2) indicated due to normal patient is onanticoagulant s (anti-Xa level is 0.27 I U/mL). RVVT PATIENT (test 1.1 RATIO 0.0-1.3 code = RVVTPAT) ACTIVATED PROT C RESISTANCE (test code = APC) SILICA CLOTTING 0.97 <1.19 PT 15.2 sec TIME (test code = (10.5-13.4 )PTT 34 sec SILCLOT) (25-37) A Lupus Anticoagulant i s NOT DETECTED. This interpretationi s based on the test result s. Prolonged scree stefani tests and negative co nfirmatory testsmay be cau sed by factor deficien cies or anticoagulantth erapy. Patient's anti- Xa level is 0.27 IU/mL. ANTITHROMBIN III 84 % 83-128 Acquired an tithrombin (ATIII) (test code deficienc y may occur with = AT3) renalfailure as sociated with proteinuri a nephrotic syndr ome,liver failure or cirr hosis or an immature alex[place] er secondary topre mature , accelera neil consumption due to severeinjury, D IC, or recent thrombos is, and heparin therapy.Heredit marlin deficiency of antithrombin sh ow decreased level sbut are rare. Elevated antithrombin le vels are notclinicallt significant. PROTEIN C 87 % 70-140 Protein C defic iency may FUNCTIONAL (test be acquired due to code = PROTCFN) recentthromb osis, oral anticoagulant t herapy, hepatic disorders,post- surgery, DIC, and vitami n K deficiency. Hereditarydefic iency show decreased level s but are rare. ElevatedP rotein C levels are not clinically significant. On ly decreased level s are associated with increased thromboticrisk. However, oral anti-Xa or anti-thrombin m edications maycause falsel y increased level s of Protein C. PROTEIN S FREE % (test code = PROTSFR) CM IGG (test code = ACAG) CM IGA (test code = ACAA) CM IGM (test code = ACAM) XLQA-4-BWIMJ I IGM SMU <20 (test code = GPIIGM) ITHG-4-PUVDU I IGG UNITS <20 (test code = GPIIGG) DZQK-1-YDFES I IGA 0.0-20.0 (test code = GPIIGA) HOMOCYSTEINE (test 16.5 umol/L 3.2-10.7 H code = HOMOCY) VENOUS THROMBOPHILIA [id number] 12:39:00 Test Item Value Reference Interpretation Comments Range PROTHROMBIN 3 UNTRANSLATED (test code = [id number]) PROTHROMBIN TIME 13.5 SECONDS 9.3-12.9 H PATIENT (test code = PTP) INTERNATIONAL 1.2 0.8-1.2 N TARGET NORMAL RATIO (test INR BY IN DICATION code = INR) Indication INR1. Prophylax is of venous thrombos is 2.0 - 3.0 (orthopedic minesh graham), Prophylaxis of venous thrombosis (oth er than high-risk minesh graham), Treatment of De ep Vein Thrombosis/Pulm onary Embolism, Preve ntion of systemic emboli sm - Tissue heart va lves, Acute Myocardia l Infarction (to prevent systemic emboli sm), Valvular heart disease, Atrial Fibrilla tion, Bileaflet mecha nical valve in aortic position.2. Mec hanical prosthetic valv es (high risk), 2.5 - 3.5 Presence of Lup us Anticoagulant o r Antiphospholipi d Antibodies, Pre vention of systemic embo lism - Acute Myocardia l Infarction (t o prevent recurrent infar ct). THROMBOPLASTIN TIME 32.6 Seconds 25.0-39.5 N Ther apeutic Range: PARTIAL (test code 50.4 - 88 .3 Seconds = PTT) Effective 01/24/2019 PTT 1:1 MIX DIALYSIS TECHNICIAN SECONDS () (test code = PTTMIX2) PTT 1:3 MIX (test SECONDS () code = PTTMIX3) PT 1:2 MIX (test SECONDS () Mixing stud y not code = PTMIX2) indicated due to normal patient is onanticoagulant s (anti-Xa level is 0.27 I U/mL). RVVT PATIENT (test 1.1 RATIO 0.0-1.3 code = RVVTPAT) ACTIVATED PROT C RESISTANCE (test code = APC) SILICA CLOTTING 0.97 <1.19 PT 15.2 sec TIME (test code = (10.5-13.4 )PTT 34 sec SILCLOT) (25-37) A Lupus Anticoagulant i s NOT DETECTED. This interpretationi s based on the test result s. Prolonged scree stefani tests and negative co nfirmatory testsmay be cau sed by factor deficien cies or anticoagulantth erapy. Patient's anti- Xa level is 0.27 IU/mL. ANTITHROMBIN III 84 % 83-128 Acquired an tithrombin (ATIII) (test code deficienc y may occur with = AT3) renalfailure as sociated with proteinuri a nephrotic syndr ome,liver failure or cirr hosis or an immature alexand[place] er secondary topre mature , accelera neil consumption due to severeinjury, D IC, or recent thrombos is, and heparin therapy.Heredit marlin deficiency of antithrombin sh ow decreased level sbut are rare. Elevated antithrombin le vels are notclinicallt significant. PROTEIN C 87 % 70-140 Protein C defic iency may FUNCTIONAL (test be acquired due to code = PROTCFN) recentthromb osis, oral anticoagulant t herapy, hepatic disorders,post- surgery, DIC, and vitami n K deficiency. Hereditarydefic iency show decreased level s but are rare. ElevatedP rotein C levels are not clinically significant. On ly decreased level s are associated with increased thromboticrisk. However, oral anti-Xa or anti-thrombin m edications maycause falsel y increased level s of Protein C. PROTEIN S FREE 127 % 68-126 H Protein S def iciency may (test code = be acquired due to PROTSFR) recentthrombosi s, oral anticoagulant t herapy, , oralcontracepti ves or hormone replace ment therapy, liverdysfunctio n, recent surgery, DIC, a nd vitamin K deficiency.He reditary deficiency of P rotein S show decreased levels butare rare. El evated Protein S level s are not clinicallysigni ficant. Only decreased levels are associated with anincreased thr ombotic risk. CM IGG (test code = ACAG) CM IGA (test code = ACAA) CM IGM (test code = ACAM) PYJH-3-VGKNW I IGM SMU <20 (test code = GPIIGM) JAJN-3-QHQEJ I IGG UNITS <20 (test code = GPIIGG) EBLS-2-VOUTX I IGA 0.0-20.0 (test code = GPIIGA) HOMOCYSTEINE (test 16.5 umol/L 3.2-10.7 H code = HOMOCY) VENOUS THROMBOPHILIA [id number] 12:28:00 Test Item Value Reference Range Interpretation Comments PROTHROMBIN 3 UNTRANSLATED (test code = [id number]) PROTHROMBIN TIME 13.5 SECONDS 9.3-12.9 H PATIENT (test code = PTP) INTERNATIONAL NORMAL 1.2 0.8-1.2 N TARGET RATIO (test code = INR BY IN DICATION INR) Indication INR1. Prophyl axis of venous thrombos is 2.0 - 3. 0 (orthopedic minesh graham), Prophylaxis of venous thrombos is (other than hig h-risk surgery), Court tment of Deep Vein Thrombosis/Pulm onary Embolism, Preve ntion of systemic emb olism - Tissue heart va lves, Acute Myocardia l Infarction (to prevent systemic embo lism), Valvular heart disease, Atri al Fibrillation, Bileaflet mecha nical valve in aortic position.2. Mec hanical prosthetic valv es (high risk), 2.5 - 3.5 Presence of Lupus Anticoagu lant or Antiphospholi pid Antibodies, Pre vention of systemic e mbolism - Acute Myocard ial Infarction (t o prevent recurre nt infarct). THROMBOPLASTIN TIME 32.6 Seconds 25.0-39.5 N Ther apeutic Range: PARTIAL (test code = 50.4 - 88.3 Seconds PTT) Effect rajani 01/24/2019 PTT 1:1 MIX DIALYSIS TECHNICIAN (test SECS code = PTTMIX2) PT 1:2 MIX (test SECS code = PTMIX2) RVVT PATIENT (test 1.1 RATIO 0.0-1.3 code = RVVTPAT) ACTIVATED PROT C RESISTANCE (test code = APC) SILICA CLOTTING TIME 0.97 <1.19 PT 15.2 sec (test code = (10.5-13.4)PTT 34 sec SILCLOT) (25-37) A Lupus Anticoagulant i s NOT DETECTED. This interpretationi s based on the test res ults. Prolonged scree stefani tests and negat rajani confirmatory te stsmay be caused by fa ctor deficiencies or anticoagulantth erapy. Patient's anti- Xa level is 0.27 I U/mL. ANTITHROMBIN III (ATIII) (test code = AT3) PROTEIN C FUNCTIONAL % (test code = PROTCFN) PROTEIN S FREE (test % code = PROTSFR) CM IGG (test code = ACAG) CM IGA (test code = ACAA) CM IGM (test code = ACAM) AIHG-4-XGRWI I IGM SMU <20 (test code = GPIIGM) EOLG-6-VFEXX I IGG UNITS <20 (test code = GPIIGG) FTXF-2-QSADM I IGA 0.0-20.0 (test code = GPIIGA) HOMOCYSTEINE (test 16.5 umol/L 3.2-10.7 H code = HOMOCY) PROTEIN ELECTROPHORESIS [id number] 05:41:00 Test Item Value Reference Range Interpretation Comments TOTAL PROTEIN (test code = PROTE) ALBUMIN (test code = ALBE) [id number]-5-OVLUJCZZ (test code = A1G) LBXZZ-1-NUUKCHSZ (test code = A2G) BETA GLOBULIN (test code = BG) GAMMA GLOBULIN (test code = GG) M-SPIKE,SERUM (test code = MSPIKES) GLOBULIN ELECT (test code = GLOBE) ALBUMIN/GLOBULIN RATIO (test code = AGE) PROT.ELECTROPH.INTERPRETATION (test code = ELEINT) LACTIC DEHYDROGENASE(LDH)2020-09-09 05:41:00 Test Item Value Reference Range Interpretation Comments LACTIC DEHYDROGENASE(LDH) (test 281 IUnits/L 87-241 H code = LDH) TOTAL IRON BINDING [id number] 05:41:00 Test Item Value Reference Range Interpretation Comments SERUM IRON (test code = IRON) 285 mcg/dL 35-150 H TOTAL IRON BINDING CAPACITY (test 483 mcg/dL 260-445 H code = TIBC) UIBC (test code = UIBC) 198 mcg/dL IRON SATURATION (test code = 59.0 % 14-34 H FESAT) VITAMIN [id number] 05:41:00 Test Item Value Reference Range Interpretation Comments VITAMIN B12 (test code = VITB12) 389 pg/mL 193-986 N FOLIC [id number] 05:41:00 Test Item Value Reference Range Interpretation Comments FOLIC ACID (test code = FOL) 9.9 ng/mL 3.1-17.5 N [id number] 05:41:00 Test Item Value Reference Range Interpretation Comments FERRITIN (test code = DESIREE) 17.7 ng/mL 23.9-336.2 L VENOUS THROMBOPHILIA [id number] 05:28:00 Test Item Value Reference Range Interpretation Comments PROTHROMBIN 3 UNTRANSLATED (test code = [id number]) PROTHROMBIN TIME 13.5 SECONDS 9.3-12.9 H PATIENT (test code = PTP) INTERNATIONAL NORMAL 1.2 0.8-1.2 N TARGET RATIO (test code = INR BY IN DICATION INR) Indication INR1. Prophyl axis of venous thrombos is 2.0 - 3. 0 (orthopedic minesh graham), Prophylaxis of venous thrombos is (other than hig h-risk surgery), Court tment of Deep Vein Thrombosis/Pulm onary Embolism, Preve ntion of systemic emb olism - Tissue heart va lves, Acute Myocardia l Infarction (to prevent systemic embo lism), Valvular heart disease, Atri al Fibrillation, Bileaflet mecha nical valve in aortic position.2. Mec hanical prosthetic valv es (high risk), 2.5 - 3.5 Presence of Lupus Anticoagu lant or Antiphospholi pid Antibodies, Pre vention of systemic e mbolism - Acute Myocard ial Infarction (t o prevent recurre nt infarct). THROMBOPLASTIN TIME 32.6 Seconds 25.0-39.5 N Ther apeutic Range: PARTIAL (test code = 50.4 - 88.3 Seconds PTT) Effect rajani 01/24/2019 PTT 1:1 MIX DIALYSIS TECHNICIAN (test SECS code = PTTMIX2) PT 1:2 MIX (test SECS code = PTMIX2) RVVT PATIENT (test code = RVVTPAT) ACTIVATED PROT C RESISTANCE (test code = APC) SILICA CLOTTING TIME (test code = SILCLOT) ANTITHROMBIN III (ATIII) (test code = AT3) PROTEIN C FUNCTIONAL % (test code = PROTCFN) PROTEIN S FREE (test % code = PROTSFR) CM IGG (test code = ACAG) CM IGA (test code = ACAA) CM IGM (test code = ACAM) XLSS-7-URHZI I IGM SMU <20 (test code = GPIIGM) RENH-9-GOZGI I IGG UNITS <20 (test code = GPIIGG) ZINS-4-OBKTO I IGA 0.0-20.0 (test code = GPIIGA) HOMOCYSTEINE (test 16.5 umol/L 3.2-10.7 H code = HOMOCY) PROTEIN ELECTROPHORESIS [id number] 05:27:00 Test Item Value Reference Range Interpretation Comments TOTAL PROTEIN (test code = PROTE) ALBUMIN (test code = ALBE) ARANO-6-YDIOKOQH (test code = A1G) ABJDY-2-LCASHEJC (test code = A2G) BETA GLOBULIN (test code = BG) GAMMA GLOBULIN (test code = GG) M-SPIKE,SERUM (test code = MSPIKES) GLOBULIN ELECT (test code = GLOBE) ALBUMIN/GLOBULIN RATIO (test code = AGE) PROT.ELECTROPH.INTERPRETATION (test code = ELEINT) LACTIC DEHYDROGENASE(LDH)2020-09-09 05:27:00 Test Item Value Reference Range Interpretation Comments LACTIC DEHYDROGENASE(LDH) (test IUnits/L 87-241 code = LDH) TOTAL IRON BINDING [id number] 05:27:00 Test Item Value Reference Range Interpretation Comments SERUM IRON (test code = IRON) mcg/dL 35-150 TOTAL IRON BINDING CAPACITY (test mcg/dL 260-445 code = TIBC) UIBC (test code = UIBC) mcg/dL IRON SATURATION (test code = FESAT) % 14-34 VITAMIN [id number] 05:27:00 Test Item Value Reference Range Interpretation Comments VITAMIN B12 (test code = VITB12) 389 pg/mL 193-986 N FOLIC [id number] 05:27:00 Test Item Value Reference Range Interpretation Comments FOLIC ACID (test code = FOL) ng/mL 3.1-17.5 [id number] 05:27:00 Test Item Value Reference Range Interpretation Comments FERRITIN (test code = DESIREE) ng/mL 23.9-336.2 BASIC METABOLIC [id number] 05:27:00 Test Item Value Reference Range Interpretation Comments SODIUM (test code = NA) 139 mEq/L 134-147 N POTASSIUM (test code = 3.6 mEq/L 3.4-5.0 N K) CHLORIDE (test code = 106 mEq/L 100-108 N CL) CARBON DIOXIDE (test 27 mEq/L 21-33 N code = CO2) ANION GAP (test code = 10 0-20 N GAP) GLUCOSE (test code = 99 mg/dL 70-110 N GLU) BLOOD UREA NITROGEN 10 mg/dL 7-18 N (test code = BUN) GLOMERULAR FILTRATION 64.4 95-105 L Units of measure = RATE (test code = GFR) ml/mi n/1.73 m2 CREATININE (test code = 1.2 mg/dL 0.6-1.3 N CREAT) CALCIUM (test code = 8.9 mg/dL 8.0-10.5 N CA) VENOUS THROMBOPHILIA [id number] 05:12:00 Test Item Value Reference Range Interpretation Comments PROTHROMBIN 3 UNTRANSLATED (test code = [id number]) PROTHROMBIN TIME 13.5 SECONDS 9.3-12.9 H PATIENT (test code = PTP) INTERNATIONAL NORMAL 1.2 0.8-1.2 N TARGET RATIO (test code = INR BY IN DICATION INR) Indication INR1. Prophyl axis of venous thrombos is 2.0 - 3. 0 (orthopedic minesh graham), Prophylaxis of venous thrombos is (other than hig h-risk surgery), Court tment of Deep Vein Thrombosis/Pulm onary Embolism, Preve ntion of systemic emb olism - Tissue heart va lves, Acute Myocardia l Infarction (to prevent systemic embo lism), Valvular heart disease, Atri al Fibrillation, Bileaflet mecha nical valve in aortic position.2. Mec hanical prosthetic valv es (high risk), 2.5 - 3.5 Presence of Lupus Anticoagu lant or Antiphospholi pid Antibodies, Pre vention of systemic e mbolism - Acute Myocard ial Infarction (t o prevent recurre nt infarct). THROMBOPLASTIN TIME 32.6 Seconds 25.0-39.5 N Ther apeutic Range: PARTIAL (test code = 50.4 - 88.3 Seconds PTT) Effect rajani 01/24/2019 PTT 1:1 MIX DIALYSIS TECHNICIAN (test SECS code = PTTMIX2) PT 1:2 MIX (test SECS code = PTMIX2) RVVT PATIENT (test code = RVVTPAT) ACTIVATED PROT C RESISTANCE (test code = APC) SILICA CLOTTING TIME (test code = SILCLOT) ANTITHROMBIN III (ATIII) (test code = AT3) PROTEIN C FUNCTIONAL % (test code = PROTCFN) PROTEIN S FREE (test % code = PROTSFR) CM IGG (test code = ACAG) CM IGA (test code = ACAA) CM IGM (test code = ACAM) PORR-8-ILMEP I IGM SMU <20 (test code = GPIIGM) HRJI-0-KTOWP I IGG UNITS <20 (test code = GPIIGG) MTMB-5-ZFXMY I IGA 0.0-20.0 (test code = GPIIGA) HOMOCYSTEINE (test umol/L 3.2-10.7 code = HOMOCY) VENOUS THROMBOPHILIA [id number] 05:08:00 Test Item Value Reference Range Interpretation Comments PROTHROMBIN 3 UNTRANSLATED (test code = [id number]) PROTHROMBIN TIME 13.5 SECONDS 9.3-12.9 H PATIENT (test code = PTP) INTERNATIONAL NORMAL 1.2 0.8-1.2 N TARGET RATIO (test code = INR BY IN DICATION INR) Indication INR1. Prophyl axis of venous thrombos is 2.0 - 3. 0 (orthopedic minesh graham), Prophylaxis of venous thrombos is (other than hig h-risk surgery), Court tment of Deep Vein Thrombosis/Pulm onary Embolism, Preve ntion of systemic emb olism - Tissue heart va lves, Acute Myocardia l Infarction (to prevent systemic embo lism), Valvular heart disease, Atri al Fibrillation, Bileaflet mecha nical valve in aortic position.2. Mec hanical prosthetic valv es (high risk), 2.5 - 3.5 Presence of Lupus Anticoagu lant or Antiphospholi pid Antibodies, Pre vention of systemic e mbolism - Acute Myocard ial Infarction (t o prevent recurre nt infarct). THROMBOPLASTIN TIME 32.6 Seconds 25.0-39.5 N Ther apeutic Range: PARTIAL (test code = 50.4 - 88.3 Seconds PTT) Effect rajani 01/24/2019 PTT 1:1 MIX DIALYSIS TECHNICIAN (test SECS code = PTTMIX2) PTT 1:3 MIX (test SECS code = PTTMIX3) PT 1:2 MIX (test SECS code = PTMIX2) RVVT PATIENT (test code = RVVTPAT) ACTIVATED PROT C RESISTANCE (test code = APC) SILICA CLOTTING TIME (test code = SILCLOT) ANTITHROMBIN III (ATIII) (test code = AT3) PROTEIN C FUNCTIONAL % (test code = PROTCFN) PROTEIN S FREE (test % code = PROTSFR) CM IGG (test code = ACAG) CM IGA (test code = ACAA) CM IGM (test code = ACAM) WDNG-4-QTZWJ I IGM SMU <20 (test code = GPIIGM) VTJX-9-WZVPT I IGG UNITS <20 (test code = GPIIGG) VLVH-7-ZRUXM I IGA 0.0-20.0 (test code = GPIIGA) HOMOCYSTEINE (test umol/L 3.2-10.7 code = HOMOCY) CBC W/AUTO [id number] 04:59:00 Test Item Value Reference Range Interpretation Comments WHITE BLOOD CELL (test code = 10.0 x10 3/uL 4.5-11.0 N WBC) RED BLOOD CELL (test code = 4.14 x10 6/uL 4.00-5.60 N RBC) HEMOGLOBIN (test code = HGB) 8.3 g/dL 12.5-16.9 L HEMATOCRIT (test code = HCT) 30.9 % 37.5-50.7 L MEAN CELL VOLUME (test code = 74.6 fL 81.0-99.0 L MCV) MEAN CELL HGB (test code = MCH) 20.0 pg 27.0-33.0 L MEAN CELL HGB CONCETRATION 26.9 g/dL 33.0-37.0 L (test code = MCHC) RED CELL DISTRIBUTION WIDTH CV 20.8 % 11.5-14.5 H (test code = RDW) RED CELL DISTRIBUTION WIDTH SD 55.3 fL 37.0-54.0 H (test code = RDW-SD) PLATELET COUNT (test code = 318 x10 3/uL 150-400 N PLT) MEAN PLATELET VOLUME (test code 9.1 fL 7.0-9.0 H = MPV) NEUTROPHIL % (test code = NT%) 53.6 % 56.0-77.0 L IMMATURE GRANULOCYTE % (test 0.2 % 0.0-2.0 N code = IG%) LYMPHOCYTE % (test code = LY%) 29.4 % 14.0-32.0 N MONOCYTE % (test code = MO%) 13.6 % 4.8-9.0 H EOSINOPHIL % (test code = EO%) 2.7 % 0.3-3.7 N BASOPHIL % (test code = BA%) 0.5 % 0.0-2.0 N NUCLEATED RBC % (test code = 0.0 % 0-0 N NRBC%) NEUTROPHIL # (test code = NT#) 5.34 x10 3/uL 2.0-7.6 N IMMATURE GRANULOCYTE # (test 0.02 x10 3/uL 0.00-0.03 N code = IG#) LYMPHOCYTE # (test code = LY#) 2.93 x10 3/uL 1.0-3.8 N MONOCYTE # (test code = MO#) 1.35 x10 3/uL 0.1-0.8 H EOSINOPHIL # (test code = EO#) 0.27 x10 3/uL 0.0-0.2 H BASOPHIL # (test code = BA#) 0.05 x10 3/uL 0.0-0.2 N NUCLEATED RBC # (test code = 0.00 x10 3/uL 0.0-0.1 N NRBC#) MANUAL DIFF REQUIRED (test code NO = MDIFF) RETICULOCYTE [id number] 04:59:00 Test Item Value Reference Range Interpretation Comments RETIC COUNT (AUTOMATED) (test 1.8 % 0.3-2.3 N code = RETICA) RETIC COUNT ABSOLUTE (test 0.074 x10 6/uL 0.016-0.095 N code = RET#) C REACTIVE [id number] 06:24:00 Test Item Value Reference Range Interpretation Comments C REACTIVE PROTEIN (test code = CRP) 5.0 mg/L <10.0 N SED RATE [id number] 05:27:00 Test Item Value Reference Range Interpretation Comments SED RATE WESTERGREN (test code = 17 mm/hr 0-15 H SEDW) - CT ANGIO [id number] 04:11:00 [facility] LAKEName: GERMÁN EUBANKS : 1970 Sex: M Name: GERMÁN EUBANKS [facility] [place] : 1970Age/S: 50 / M [address] [place] [address] Unit #: [id number] Loc: [place] [address] Phys: Ming Siu MD Acct: [id number] Dis Date: Status: REG ER PHONE#: [phone] Exam Date: 09/08/2020 0345 FAX #: [phone] Reason:Chest Pain EXAMS: CPT CODE: [id number] CT ANGIO CHEST [address] CT THORAX WITH CONTRAST:PE PROTOCOL INDICATION: Chest pain COMPARISON: CT 09/20/2019 TECHNIQUE: Following the intravenous administration of contrast, the chest was scanned from bases to apices. Sagittal, coronal and oblique MIP images were obtained andreviewed. This exam was performed according to our departmental dose optimization program which includes automated exposure control, adjustment of the mA and/or kV according to patient size and/or use of iterative reconstruction technique. DLP: 395.37 FINDINGS: Lungs and pleura: Clear.No pleural effusion or pneumothorax. Central airways: Patent. Adenopathy: None. Heart and pericardium: The heart is normal in size. Coronary artery calcifications are noted. No pericardial effusion. Great vessels: Normal calibers. Pulmonary embolism: A couple right lower lobe subsegmental pulmonary emboli are identified (series 2 image 55, 58). Respiratory motion slightly limits evaluation of the left lower lobe subsegmental branches. No other pulmonary emboli is noted within the remainder ofthe pulmonary arteries with an slight motion limitations. Included upper abdomen: No acute abnormalities. Cholecystectomy. Regional skeletal structures: Intact. Additional findings: Right chest wall port terminates at the cavoatrial junction. IMPRESSION: A couple small right lower lobe subsegmental pulmonary emboli are noted. No focal consolidation. Clinical findings (right lower lobe subsegmental PE) was discussed PAGE 1 Signed Report (CONTINUED) Name: GERMÁN EUBANKS [facility] [place] : 1970 Age/S: 50 / M [address] [place] [address] Blvd Unit #: [id number] Loc: [place] [address] Phys: Ming Siu MD Acct: [id number] Dis Date: Status: REG ER PHONE #: [phone] Exam Date: 09/08/2020344 FAX #: Reason: Chest Pain EXAMS: CPT CODE: [id number] CT ANGIO CHEST [address] <Continued> with Dr. Siu at 4:04 AM on 09/08/2020. at 0411 Reported and signed by: Leanna Campa M.D. CC: Ming Siu MD Techn ologist:Kenan Bella RT(R)(CT)(MR) CTDI: DLP: Trnscb Date/Time: 09/08/2020 (041)[email or web address] Orig Print D/T: S: 09/08/2020 (041) PAGE 2 Signed ReportBASIC METABOLIC [id number] 03:36:00 Test Item Value Reference Range Interpretation Comments SODIUM (test code = NA) 140 mEq/L 134-147 N POTASSIUM (test code = 3.6 mEq/L 3.4-5.0 N K) CHLORIDE (test code = 104 mEq/L 100-108 N CL) CARBON DIOXIDE (test 28 mEq/L 21-33 N code = CO2) ANION GAP (test code = 11 0-20 N GAP) GLUCOSE (test code = 117 mg/dL 70-110 H GLU) BLOOD UREA NITROGEN 9 mg/dL 7-18 N (test code = BUN) GLOMERULAR FILTRATION 58.7 95-105 L Units of measure = RATE (test code = GFR) ml/mi n/1.73 m2 CREATININE (test code = 1.3 mg/dL 0.6-1.3 N CREAT) CALCIUM (test code = 10.6 mg/dL 8.0-10.5 H CA) T4 [id number] 03:36:00 Test Item Value Reference Range Interpretation Comments T4 FREE (test code = T4F) 1.4 ng/dL 0.77-1.61 N TSH REFLEX TO [id number] 03:36:00 Test Item Value Reference Range Interpretation Comments TSH REFLEX TO FT4 (test code = 0.11 IU/mL 0.42-5.47 L TSHREFLEX) [id number] 03:36:00 Test Item Value Reference Range Interpretation Comments TROPONIN-I 0.007 ng/mL 0.000-0.045 N Negative: <= (test code = 0.045 Positive: TROPI) >= 0.046 Correl ation with serial results, other cardiac markers andclin ical findings is necessary to determine the clinicalsignifi cance of this result. Results using different metho dologies should not be c omparedto one another as bindu titative results may nicky y by method. CBC W/AUTO [id number] 03:28:00 Test Item Value Reference Range Interpretation Comments WHITE BLOOD CELL (test code = 8.7 x10 3/uL 4.5-11.0 WBC) RED BLOOD CELL (test code = 5.08 x10 6/uL 4.00-5.60 N RBC) HEMOGLOBIN (test code = HGB) 10.0 g/dL 12.5-16.9 L HEMATOCRIT (test code = HCT) 36.1 % 37.5-50.7 L MEAN CELL VOLUME (test code = 71.1 fL 81.0-99.0 L MCV) MEAN CELL HGB (test code = MCH) 19.7 pg 27.0-33.0 L MEAN CELL HGB CONCETRATION 27.7 g/dL 33.0-37.0 L (test code = MCHC) RED CELL DISTRIBUTION WIDTH CV 20.6 % 11.5-14.5 H (test code = RDW) RED CELL DISTRIBUTION WIDTH SD 51.0 fL 37.0-54.0 N (test code = RDW-SD) PLATELET COUNT (test code = 436 x10 3/uL 150-400 H PLT) MEAN PLATELET VOLUME (test code 8.9 fL 7.0-9.0 N = MPV) NEUTROPHIL % (test code = NT%) 63.7 % 56.0-77.0 N IMMATURE GRANULOCYTE % (test 0.2 % 0.0-2.0 N code = IG%) LYMPHOCYTE % (test code = LY%) 23.5 % 14.0-32.0 N MONOCYTE % (test code = MO%) 12.0 % 4.8-9.0 H EOSINOPHIL % (test code = EO%) 0.3 % 0.3-3.7 N BASOPHIL % (test code = BA%) 0.3 % 0.0-2.0 N NUCLEATED RBC % (test code = 0.0 % 0-0 N NRBC%) NEUTROPHIL # (test code = NT#) 5.55 x10 3/uL 2.0-7.6 N IMMATURE GRANULOCYTE # (test 0.02 x10 3/uL 0.00-0.03 N code = IG#) LYMPHOCYTE # (test code = LY#) 2.05 x10 3/uL 1.0-3.8 N MONOCYTE # (test code = MO#) 1.05 x10 3/uL 0.1-0.8 H EOSINOPHIL # (test code = EO#) 0.03 x10 3/uL 0.0-0.2 N BASOPHIL # (test code = BA#) 0.03 x10 3/uL 0.0-0.2 N NUCLEATED RBC # (test code = 0.00 x10 3/uL 0.0-0.1 N NRBC#) MANUAL DIFF REQUIRED (test code NO = MDIFF) RBC [id number] 03:28:00 Test Item Value Reference Range Interpretation Comments POLYCHROMASIA (test code = POLC) SLIGHT POIKILOCYTOSIS (test code = POIK) SLIGHT ANISOCYTOSIS (test code = ANISO) 2+ MICROCYTOSIS (test code = MICR) 2+ TARGET CELLS (test code = TGT) FEW ELLIPTOCYTES (test code = ELL) FEW B-TYPE NATRIURETIC [id number] 03:22:00 Test Item Value Reference Range Interpretation Comments B-TYPE NATRIURETIC PEPTIDE (test 27.0 PG/ML 0-100 N code = BNP) BASIC METABOLIC [id number] 03:19:00 Test Item Value Reference Range Interpretation Comments SODIUM (test code = NA) 140 mEq/L 134-147 N POTASSIUM (test code = 3.6 mEq/L 3.4-5.0 N K) CHLORIDE (test code = 104 mEq/L 100-108 N CL) CARBON DIOXIDE (test 28 mEq/L 21-33 N code = CO2) ANION GAP (test code = 11 0-20 N GAP) GLUCOSE (test code = 117 mg/dL 70-110 H GLU) BLOOD UREA NITROGEN 9 mg/dL 7-18 N (test code = BUN) GLOMERULAR FILTRATION 58.7 95-105 L Units of measure = RATE (test code = GFR) ml/mi n/1.73 m2 CREATININE (test code = 1.3 mg/dL 0.6-1.3 N CREAT) CALCIUM (test code = 10.6 mg/dL 8.0-10.5 H CA) T4 [id number] 03:19:00 Test Item Value Reference Range Interpretation Comments T4 FREE (test code = T4F) ng/dL 0.77-1.61 TSH REFLEX TO [id number] 03:19:00 Test Item Value Reference Range Interpretation Comments TSH REFLEX TO FT4 (test code = 0.11 IU/mL 0.42-5.47 L TSHREFLEX) [id number] 03:19:00 Test Item Value Reference Range Interpretation Comments TROPONIN-I 0.007 ng/mL 0.000-0.045 N Negative: <= (test code = 0.045 Positive: TROPI) >= 0.046 Correl ation with serial results, other cardiac markers andclin ical findings is necessary to determine the clinicalsignifi cance of this result. Results using different metho dologies should not be c omparedto one another as bindu titative results may nicky y by method. CBC W/AUTO [id number] 02:58:00 Test Item Value Reference Range Interpretation Comments WHITE BLOOD CELL (test code = 8.7 x10 3/uL 4.5-11.0 WBC) RED BLOOD CELL (test code = 5.08 x10 6/uL 4.00-5.60 N RBC) HEMOGLOBIN (test code = HGB) 10.0 g/dL 12.5-16.9 L HEMATOCRIT (test code = HCT) 36.1 % 37.5-50.7 L MEAN CELL VOLUME (test code = 71.1 fL 81.0-99.0 L MCV) MEAN CELL HGB (test code = MCH) 19.7 pg 27.0-33.0 L MEAN CELL HGB CONCETRATION 27.7 g/dL 33.0-37.0 L (test code = MCHC) RED CELL DISTRIBUTION WIDTH CV 20.6 % 11.5-14.5 H (test code = RDW) RED CELL DISTRIBUTION WIDTH SD 51.0 fL 37.0-54.0 N (test code = RDW-SD) PLATELET COUNT (test code = 436 x10 3/uL 150-400 H PLT) MEAN PLATELET VOLUME (test code 8.9 fL 7.0-9.0 N = MPV) NEUTROPHIL % (test code = NT%) 63.7 % 56.0-77.0 N IMMATURE GRANULOCYTE % (test 0.2 % 0.0-2.0 N code = IG%) LYMPHOCYTE % (test code = LY%) 23.5 % 14.0-32.0 N MONOCYTE % (test code = MO%) 12.0 % 4.8-9.0 H EOSINOPHIL % (test code = EO%) 0.3 % 0.3-3.7 N BASOPHIL % (test code = BA%) 0.3 % 0.0-2.0 N NUCLEATED RBC % (test code = 0.0 % 0-0 N NRBC%) NEUTROPHIL # (test code = NT#) 5.55 x10 3/uL 2.0-7.6 N IMMATURE GRANULOCYTE # (test 0.02 x10 3/uL 0.00-0.03 N code = IG#) LYMPHOCYTE # (test code = LY#) 2.05 x10 3/uL 1.0-3.8 N MONOCYTE # (test code = MO#) 1.05 x10 3/uL 0.1-0.8 H EOSINOPHIL # (test code = EO#) 0.03 x10 3/uL 0.0-0.2 N BASOPHIL # (test code = BA#) 0.03 x10 3/uL 0.0-0.2 N NUCLEATED RBC # (test code = 0.00 x10 3/uL 0.0-0.1 N NRBC#) MANUAL DIFF REQUIRED (test code NO = MDIFF) RBC [id number] 02:58:00 Test Item Value Reference Range Interpretation Comments ANISOCYTOSIS (test code = ANISO) CBC W/AUTO [id number] 02:58:00 Test Item Value Reference Range Interpretation Comments WHITE BLOOD CELL (test code = 8.7 x10 3/uL 4.5-11.0 WBC) RED BLOOD CELL (test code = 5.08 x10 6/uL 4.00-5.60 N RBC) HEMOGLOBIN (test code = HGB) 10.0 g/dL 12.5-16.9 L HEMATOCRIT (test code = HCT) 36.1 % 37.5-50.7 L MEAN CELL VOLUME (test code = 71.1 fL 81.0-99.0 L MCV) MEAN CELL HGB (test code = MCH) 19.7 pg 27.0-33.0 L MEAN CELL HGB CONCETRATION 27.7 g/dL 33.0-37.0 L (test code = MCHC) RED CELL DISTRIBUTION WIDTH CV 20.6 % 11.5-14.5 H (test code = RDW) RED CELL DISTRIBUTION WIDTH SD 51.0 fL 37.0-54.0 N (test code = RDW-SD) PLATELET COUNT (test code = 436 x10 3/uL 150-400 H PLT) MEAN PLATELET VOLUME (test code 8.9 fL 7.0-9.0 N = MPV) NEUTROPHIL % (test code = NT%) 63.7 % 56.0-77.0 N IMMATURE GRANULOCYTE % (test 0.2 % 0.0-2.0 N code = IG%) LYMPHOCYTE % (test code = LY%) 23.5 % 14.0-32.0 N MONOCYTE % (test code = MO%) 12.0 % 4.8-9.0 H EOSINOPHIL % (test code = EO%) 0.3 % 0.3-3.7 N BASOPHIL % (test code = BA%) 0.3 % 0.0-2.0 N NUCLEATED RBC % (test code = 0.0 % 0-0 N NRBC%) NEUTROPHIL # (test code = NT#) 5.55 x10 3/uL 2.0-7.6 N IMMATURE GRANULOCYTE # (test 0.02 x10 3/uL 0.00-0.03 N code = IG#) LYMPHOCYTE # (test code = LY#) 2.05 x10 3/uL 1.0-3.8 N MONOCYTE # (test code = MO#) 1.05 x10 3/uL 0.1-0.8 H EOSINOPHIL # (test code = EO#) 0.03 x10 3/uL 0.0-0.2 N BASOPHIL # (test code = BA#) 0.03 x10 3/uL 0.0-0.2 N NUCLEATED RBC # (test code = 0.00 x10 3/uL 0.0-0.1 N NRBC#) MANUAL DIFF REQUIRED (test code NO = MDIFF) RBC [id number] 02:58:00 Test Item Value Reference Range Interpretation Comments ANISOCYTOSIS (test code = ANISO) - XR CHEST 1 [id number] 02:23:00 [facility] : 1970 Sex: M FAX: Ming Siu MD [place]: REG Name: GERMÁN EUBANKS [facility] : 1970 Age/S: 50/M [address] [place] [address] Unit #: [id number] Loc: [place] [address] Phys: Ming Siu MD Acct: [id number] Dis Date: Status: REG ER PHONE #: [phone] Exam Date: 09/08/2020216 FAX #: [phone] Reason: Chest Pain EXAMS: CPT CODE: [id number] XR CHEST 1 V 11580 Study: - XR CHEST 1 V 09/08/2020 1:37 AM Patient Name: GERMÁN EUBANKS MR: [id number] : 1970; Age: 50 years y/o Male Ordering Physician: Ming Siu MD Clinical Indication: Chest Pain Comparison: 11/06/2019 FINDINGS LUNGS: Mildly hypoinflated but clear lungs wi th mildly increasing inflation since the prior examination. No consolidation, pleural effusion, or pneumothorax. Subtle angular density laterally in the right lung apex likely represents artifact related to the osseous structures and/or overlying bandage. HEART AND MEDIASTINUM: Normal size heart. LINES: Right IJ Port-A-Cath tip overlying the distal SVC. OSSEOUS STRUCTURES: No fracture, dislocation, or suspicious focal osseous lesion. OTHER: None. IMPRESSION: Mildly decreasing hypoinflation without acute abnormality. SL: TPAINTER-H at 0223 Reported and signed by: Jaycob Boss M.D. PAGE 1 Signed Report (CONTINUED) FAX: Ming Siu MD [place] REG Name: GERMÁN EUBANKS [facility] : 1970 Age/S: 50/M [address] [place] [address] Unit #: [id number] Loc: [place] [address] Phys: Ming Siu MD Acct: [id number] Dis Date: Status: REG ER PHONE #: [phone] Exam Date: 09/08/2020216 FAX #: [phone] Reason: Chest Pain EXAMS: CPT CODE: [id number] XR CHEST 1 V 64538 <Continued> CC: Ming Siu MD Technologist: Lesli Davidson RT(R) Trnnerd Date/Time/By: 09/08/2020 (0223) : By: [email or web address] Orig Print D/T: S: 09/08/2020 (0226)PAGE 2 Signed ReportAutomated blood leukocyte count (number/volume)2020-02-13 00:22:00 Test Item Value Reference Range Interpretation Comments White Blood Count (test code = 9.9 10*3/uL 6690-2) [facility] count (number/volume)2020-02-13 00:22:00 Test Item Value Reference Range Interpretation Comments Red Blood Count (test code = 4.53 10*6/uL 789-8) [facility] Hospital[facility] hemoglobin measurement (mass/volume) 2020-02-13 00:22:00 Test Item Value Reference Range Interpretation Comments Hemoglobin (test code = 718-7) 10.9 g/dL [facility] Hospital[facility]ated blood hematocrit (volume fraction)2020-02-13 00:22:00 Test Item Value Reference Range Interpretation Comments Hematocrit (test code = 4544-3) 36.4 % [facility] Hospital[facility]ated erythrocyte mean corpuscular volume (MCV) [id number] 00:22:00 Test Item Value Reference Range Interpretation Comments Mean Corpuscular Volume (test code = 80.4 fL 787-2) [facility] Hospital[facility] erythrocyte mean corpuscular hemoglobin (mass per erythrocyte)2020-02-13 00:22:00 Test Item Value Reference Range Interpretation Comments Mean Corpuscular Hemoglobin (test 24.1 pg code = 785-6) [facility] erythrocyte mean corpuscular hemoglobin concentration measurement (mass/[id number] 00:22:00 Test Item Value Reference Range Interpretation Comments Mean Corpuscular Hemoglobin Concent 29.9 g/dL (test code = 786-4) [facility] erythrocyte distribution width [id number] 00:22:00 Test Item Value Reference Range Interpretation Comments Red Cell Distribution Width (test code 21.2 % = 788-0) [facility] Hospital[facility] blood platelet count (count/volume)2020-02-13 00:22:00 Test Item Value Reference Range Interpretation Comments Platelet Count (test code = 307 10*3/uL 777-3) [facility] mean volume [id number] 00:22:00 Test Item Value Reference Range Interpretation Comments Mean Platelet Volume (test code = 8.9 fL 10192-1) [facility] count as percentage of total ftmilckbrm1293-24-59 00:22:00 Test Item Value Reference Range Interpretation Comments Neutrophils (%) (Auto) (test code = 58 % 770-8) [facility] immature granulocyte count as percentage of total xdwxvijoky6784-50-75 00:22:00 Test Item Value Reference Range Interpretation Comments Immature Granulocyte % (Auto) (test 0.2 % code = 48004-7) [facility] count as percentage of total uqlfrqones3988-30-91 00:22:00 Test Item Value Reference Range Interpretation Comments Lymphocytes (%) (Auto) (test code = 28 % 736-9) [facility] count as percentage of total pihleshpub6628-15-58 00:22:00 Test Item Value Reference Range Interpretation Comments Monocytes (%) (Auto) (test code = 12 % 5905-5) [facility] eosinophil count as percentage of total umhddrkaqo2852-21-38 00:22:00 Test Item Value Reference Range Interpretation Comments Eosinophils (%) (Auto) (test code = 2 % 713-8) [facility] basophil count as percentage of total mucqneheby0814-93-07 00:22:00 Test Item Value Reference Range Interpretation Comments Basophils (%) (Auto) (test code = 0 % 706-2) [facility] nucleated erythrocyte count as percentage of total rbbplngezx2647-55-87 00:22:00 Test Item Value Reference Range Interpretation Comments Nucleated Red Blood Cells % (test code 0 % = 63656-2) [facility] neutrophil count (number/volume)2020-02-13 00:22:00 Test Item Value Reference Range Interpretation Comments Neutrophils # (Auto) (test code 5.68 10*3/uL = 751-8) [facility] neutrophil lioun2512-00-72 00:22:00 Test Item Value Reference Range Interpretation Comments Neutrophils # (Manual) (test 6.24 10*3/uL code = 751-8) [facility] platelets count by estimate (number/volume)2020-02-13 00:22:00 Test Item Value Reference Range Interpretation Comments Platelet Estimate (test code = Normal 33694-6) [facility] platelet clump detection by light achiewhkay3998-15-76 00:22:00 Test Item Value Reference Range Interpretation Comments Clumped Platelets (test code = 7796-6) Absent [facility] anisocytosis detection by light svhbkzjjif4684-06-79 00:22:00 Test Item Value Reference Range Interpretation Comments Anisocytosis (test code = 702-1) 1+ [facility] poikilocytosis detection by light qumjhjdbdl6772-67-39 00:22:00 Test Item Value Reference Range Interpretation Comments Poikilocytosis (test code = 779-9) 1+ [facility] microcytes detection by light ybiekjqssl8122-49-56 00:22:00 Test Item Value Reference Range Interpretation Comments Microcytosis (test code = 741-9) 1+ [facility] macrocytes detection by light bhavhpwodc6657-26-14 00:22:00 Test Item Value Reference Range Interpretation Comments Macrocytosis (test code = 738-5) 1+ [facility] blood hypochromia detection by light dapfjjrgjl8886-87-40 00:22:00 Test Item Value Reference Range Interpretation Comments Hypochromasia (test code = 728-6) 1+ [facility] ovalocytes detection by light jokziyajbw7365-42-89 00:22:00 Test Item Value Reference Range Interpretation Comments Ovalocytes (test code = 774-0) 1+ [facility] or plasma sodium measurement (moles/volume)2020-02-13 00:22:00 Test Item Value Reference Range Interpretation Comments Sodium Level (test code = 2951-2) 141 mmol/L [facility] or plasma potassium measurement (moles/volume)2020-02-13 00:22:00 Test Item Value Reference Range Interpretation Comments Potassium Level (test code = 4.2 mmol/L 2823-3) [facility] or plasma chloride measurement (moles/volume)2020-02-13 00:22:00 Test Item Value Reference Range Interpretation Comments Chloride Level (test code = 108 mmol/L 2075-0) [facility] or plasma total carbon dioxide measurement (moles/volume)2020-02-13 00:22:00 Test Item Value Reference Range Interpretation Comments Carbon Dioxide Level (test code = 25 mmol/L 2027-9) [facility] or plasma anion gap determination (moles/volume)2020-02-13 00:22:00 Test Item Value Reference Range Interpretation Comments Anion Gap (test code = 24609-4) 8.0 mmol/L [facility] or plasma urea nitrogen measurement (mass/volume)2020-02-13 00:22:00 Test Item Value Reference Range Interpretation Comments Blood Urea Nitrogen (test code = 15.0 mg/dL 3094-0) [facility] or plasma creatinine measurement (mass/volume)2020-02-13 00:22:00 Test Item Value Reference Range Interpretation Comments Creatinine (test code = 2160-0) 0.88 mg/dL [facility]Estim[facility] creatinine clearance calculated from serum or plasma creatinine by [id number] 00:22:00 Test Item Value Reference Range Interpretation Comments Estimated Creatinine Clearance (test 94.9 code = 98810-7) [facility] HospitalGlomerular filtration rate (GFR) estimation using MDRD rqhrqwen2081-41-20 00:22:00 Test Item Value Reference Range Interpretation Comments Estimat Glomerular Filtration Rate 97.83 (test code = 319281008) [facility] glucose measurement (mass/volume)2020-02-13 00:22:00 Test Item Value Reference Range Interpretation Comments Glucose Level (test code = 2345-7) 102 mg/dL [facility] or plasma calcium measurement (mass/volume)2020-02-13 00:22:00 Test Item Value Reference Range Interpretation Comments Calcium Level (test code = 54466-4) 8.9 mg/dL [facility] or plasma cardiac troponin I measurement (mass/volume)2020-02-13 00:22:00 Test Item Value Reference Range Interpretation Comments Troponin I (test code = 40250-1) 0.009 ng/mL [facility] or plasma natriuretic peptide B measurement (mass/volume)2020-02-13 00:22:00 Test Item Value Reference Range Interpretation Comments B-Type Natriuretic Peptide (test 38 pg/mL code = 58521-7) [facility] HospitalTROP[facility]IN [id number] 18:00:00 Test Item Value Reference Range Interpretation Comments TROPONIN I (BEAKER) (test code = 397) < ng/mL 0.00-0.15 Troponin I (TnI) levels [...] failure, acidosis, acute neurological disease, and persistent tachyarrhythmia.[facility] ID - JBERNTROPONIN [id number] 12:32:00 Test Item Value Reference Range Interpretation Comments TROPONIN I (BEAKER) (test code = 397) < ng/mL 0.00-0.15 Troponin I (TnI) levels [...] failure, acidosis, acute neurological disease, and persistent tachyarrhythmia.[facility] ID - BABAR, CHEST, 1 VIEW, NON [id number] 06:44:00Reason for exam:->pneumoniaShould this be performed at the bedside?->YesFINAL REPORT RAD, CHEST, 1 VIEW, NON DEPT INDICATION: pneumonia COMPARISON: Plain radiograph the chest dated 06/17/2019. FINDINGS: Portable frontal view of the chest. IMPRESSION: Support Lines: Right chest wall Port-A-Cath with tip overlying the cavoatrial junction. Lungs and pleura: Prominence of the pulmonary vasculature with crowding likely related to low lung volumes. No lobar consolidation or pleural effusion. No pneumothorax.Heart and mediastinum: Stable contours. Additional findings: None. Signed: Andreea Myers Verified Date/Time: 01/28/2020 06:44:24 TROPONIN [id number] 05:17:00 Test Item Value Reference Range Interpretation Comments TROPONIN I (BEAKER) (test code = 397) < ng/mL 0.00-0.15 Troponin I (TnI) levels [...] failure, acidosis, acute neurological disease, and persistent tachyarrhythmia.[facility] ID - DELZCOMPREHENSIVE METABOLIC [id number] 05:09:00 Test Item Value Reference Range Interpretation Comments TOTAL PROTEIN 7.2 gm/dL 6.0-8.5 (BEAKER) (test code = 770) ALBUMIN (BEAKER) 4.5 g/dL 3.5-5.0 (test code = 1145) ALKALINE PHOSPHATASE 86 U/L 30-115 (BEAKER) (test code = 346) BILIRUBIN TOTAL 0.4 mg/dL 0.1-1.2 (BEAKER) (test code = 377) SODIUM (BEAKER) (test 139 meq/L 135-148 code = 381) POTASSIUM (BEAKER) 4.0 meq/L 3.6-5.5 (test code = 379) CHLORIDE (BEAKER) 105 meq/L 98-106 (test code = 382) CO2 (BEAKER) (test 25 meq/L 20-29 code = 355) BLOOD UREA NITROGEN 17 mg/dL 10-26 (BEAKER) (test code = 354) CREATININE (BEAKER) 0.89 mg/dL 0.50-1.20 (test code = 358) GLUCOSE RANDOM 93 mg/dL 70-110 (BEAKER) (test code = 652) CALCIUM (BEAKER) 9.0 mg/dL 8.5-10.5 (test code = 697) AST (SGOT) (BEAKER) 18 U/L 5-40 (test code = 353) ALT (SGPT) (BEAKER) 13 U/L 5-50 (test code = 347) EGFR (BEAKER) (test 91 mL/min/1.73 ESTIMA NEIL GFR IS code = 1092) sq m NOT ACCURATE CREATININE CLEARANCE IN PREDICTING GLOMERULAR FILTRATION RATE . ESTIMATED GFR I S NOT APPLICABLE FOR DIALYSIS PATIEN TS. [facility] ID - [id number] 05:08:00 Test Item Value Reference Range Interpretation Comments MAGNESIUM (BEAKER) (test code = 2.2 mg/dL 1.5-3.0 627) [facility] ID - AGONZALEZCBC W/PLT COUNT & AUTO [id number] 04:55:00 Test Item Value Reference Range Interpretation Comments WHITE BLOOD CELL COUNT (BEAKER) 9.3 K/ L 4.0-10.0 (test code = 775) RED BLOOD CELL COUNT (BEAKER) 4.16 M/ L 4.20-5.80 L (test code = 761) HEMOGLOBIN (BEAKER) (test code = 9.9 GM/DL 13.0-16.8 L 410) HEMATOCRIT (BEAKER) (test code = 33.9 % 36.0-50.0 L 411) MEAN CORPUSCULAR VOLUME (BEAKER) 81.5 fL 82.0-99.0 L (test code = 753) MEAN CORPUSCULAR HEMOGLOBIN 23.8 pg 27.0-33.0 L (BEAKER) (test code = 751) MEAN CORPUSCULAR HEMOGLOBIN CONC 29.2 GM/DL 32.0-36.0 L (BEAKER) (test code = 752) RED CELL DISTRIBUTION WIDTH 21.2 % 12.0-15.0 H (BEAKER) (test code = 412) PLATELET COUNT (BEAKER) (test 363 K/CU MM 150-430 code = 756) MEAN PLATELET VOLUME (BEAKER) 8.7 fL 6.0-11.5 (test code = 754) NUCLEATED RED BLOOD CELLS 0 /100 WBC 0-0 (BEAKER) (test code = 413) NEUTROPHILS RELATIVE PERCENT 52 % (BEAKER) (test code = 429) LYMPHOCYTES RELATIVE PERCENT 32 % (BEAKER) (test code = 430) MONOCYTES RELATIVE PERCENT 14 % (BEAKER) (test code = 431) EOSINOPHILS RELATIVE PERCENT 2 % (BEAKER) (test code = 432) BASOPHILS RELATIVE PERCENT 1 % (BEAKER) (test code = 437) NEUTROPHILS ABSOLUTE COUNT 4.80 K/ L 1.80-8.00 (BEAKER) (test code = 670) LYMPHOCYTES ABSOLUTE COUNT 2.95 K/ L 1.48-4.50 (BEAKER) (test code = 414) MONOCYTES ABSOLUTE COUNT (BEAKER) 1.30 K/ L 0.00-1.30 (test code = 415) EOSINOPHILS ABSOLUTE COUNT 0.17 K/ L 0.00-0.50 (BEAKER) (test code = 416) BASOPHILS ABSOLUTE COUNT (BEAKER) 0.05 K/ L 0.00-0.20 (test code = 417) IMMATURE GRANULOCYTES-RELATIVE 0 % 0-0 PERCENT (BEAKER) (test code = 2801) MYOCARD IMAGING, MULTI, PHARM, [id number] 11:07:00FINAL REPORT PROCEDURE: Rest/Stress MYOCARDIAL PERFUSION SCAN with regadenosine CPT CODE: 60284, 98861, 27109 INDICATION: Chest pain PROTOCOL: The patient underwent rest and post-stress imaging. 10.8 mCi of Tc-99m sestamibi was injected intravenously at rest, and tomographic (SPECT) images were obtained. 30.4 mCi of Tc-99m sestamibi was injected intravenously during intravenous infusion of 0.4 mg of regadenosine. The patient's resting heart rate of 71 beats/minute reached a peak rate of 104 beats/minute (60% of MPHR). Blood pressure reached a maximum of136/71 mm Hg. Other stress and monitoring data are reported separately. Gated SPECT images were obtained after stress injection. FINDINGS: Images obtained after resting and stress injections of tracer show normal tracer distribution in the LV myocardium. LV size appears normal. Gated images obtained at rest after stress injection show normal LV wall motion and thickening. The QGS LVEF is65%. IMPRESSION: Normal myocardial perfusion. Normal resting LV function. Signed: Brandy Sanchez MDReport Verified Date/Time: 01/14/2020 11:07:34 Reading Location: [facility] Reading Room BASIC METABOLIC [id number] 07:06:00 Test Item Value Reference Range Interpretation Comments SODIUM (BEAKER) 138 meq/L 135-148 (test code = 381) POTASSIUM (BEAKER) 3.9 meq/L 3.5-5.5 (test code = 379) CHLORIDE (BEAKER) 108 meq/L 98-106 H (test code = 382) CO2 (BEAKER) (test 21 meq/L 20- code = 355) BLOOD UREA NITROGEN 18 mg/dL 10-26 (BEAKER) (test code = 354) CREATININE (BEAKER) 0.74 mg/dL 0.50-1.20 (test code = 358) GLUCOSE RANDOM 93 mg/dL 70-110 (BEAKER) (test code = 652) CALCIUM (BEAKER) 9.1 mg/dL 8.5-10.5 (test code = 697) EGFR (BEAKER) (test 112 mL/min/1.73 ESTIM ATED GFR IS code = 1092) sq m NOT ACCURATE CREATININE CLEARANCE IN PREDICTING GLOMERULAR FILTRATION RATE . ESTIMATED GFR I S NOT APPLICABLE FOR DIALYSIS PATIEN TS. Manager [facility] ID - [id number] W/PLT COUNT & AUTO [id number] 06:40:00 Test Item Value Reference Range Interpretation Comments WHITE BLOOD CELL COUNT (BEAKER) 8.0 K/ L 4.0-10.0 (test code = 775) RED BLOOD CELL COUNT (BEAKER) 3.99 M/ L 4.20-5.80 L (test code = 761) HEMOGLOBIN (BEAKER) (test code = 9.6 GM/DL 13.0-16.8 L 410) HEMATOCRIT (BEAKER) (test code = 31.5 % 36.0-50.0 L 411) MEAN CORPUSCULAR VOLUME (BEAKER) 78.9 fL 82.0-99.0 L (test code = 753) MEAN CORPUSCULAR HEMOGLOBIN 24.1 pg 27.0-33.0 L (BEAKER) (test code = 751) MEAN CORPUSCULAR HEMOGLOBIN CONC 30.5 GM/DL 32.0-36.0 L (BEAKER) (test code = 752) RED CELL DISTRIBUTION WIDTH 17.6 % 12.0-15.0 H (BEAKER) (test code = 412) PLATELET COUNT (BEAKER) (test 332 K/CU MM 150-430 code = 756) MEAN PLATELET VOLUME (BEAKER) 9.2 fL 6.0-11.5 (test code = 754) NUCLEATED RED BLOOD CELLS 0 /100 WBC 0-0 (BEAKER) (test code = 413) NEUTROPHILS RELATIVE PERCENT 47 % (BEAKER) (test code = 429) LYMPHOCYTES RELATIVE PERCENT 31 % (BEAKER) (test code = 430) MONOCYTES RELATIVE PERCENT 12 % (BEAKER) (test code = 431) EOSINOPHILS RELATIVE PERCENT 10 % (BEAKER) (test code = 432) BASOPHILS RELATIVE PERCENT 0 % (BEAKER) (test code = 437) NEUTROPHILS ABSOLUTE COUNT 3.76 K/ L 1.80-8.00 (BEAKER) (test code = 670) LYMPHOCYTES ABSOLUTE COUNT 2.49 K/ L 1.48-4.50 (BEAKER) (test code = 414) MONOCYTES ABSOLUTE COUNT (BEAKER) 0.93 K/ L 0.00-1.30 (test code = 415) EOSINOPHILS ABSOLUTE COUNT 0.80 K/ L 0.00-0.50 H (BEAKER) (test code = 416) BASOPHILS ABSOLUTE COUNT (BEAKER) 0.03 K/ L 0.00-0.20 (test code = 417) IMMATURE GRANULOCYTES-RELATIVE 0 % 0-0 PERCENT (BEAKER) (test code = 2801) IRON, TIBC, % SAT. (WITHOUT FERRITIN)2020-01-08 18:11:00 Test Item Value Reference Range Interpretation Comments IRON (BEAKER) (test code = 547) 16.0 ug/dL 35.0-175.0 L TOTAL IRON BINDING CAPACITY 539 ug/dL 250-550 (BEAKER) (test code = 769) IRON % SATURATION (2) (BEAKER) 3 % 20-55 L (test code = 2590) Manager [facility] Term Care ID - [id number] AND [id number] 11:49:00 Test Item Value Reference Range Interpretation Comments HEMOGLOBIN (BEAKER) (test code = 7.2 GM/DL 13.0-16.8 L 410) HEMATOCRIT (BEAKER) (test code = 25.4 % 36.0-50.0 L 411) CBC W/PLT COUNT & AUTO [id number] 08:33:00 Test Item Value Reference Range Interpretation Comments WHITE BLOOD CELL COUNT (BEAKER) 6.8 K/ L 4.0-10.0 (test code = 775) RED BLOOD CELL COUNT (BEAKER) 3.07 M/ L 4.20-5.80 L (test code = 761) HEMOGLOBIN (BEAKER) (test code = 6.8 GM/DL 13.0-16.8 L 410) HEMATOCRIT (BEAKER) (test code = 23.4 % 36.0-50.0 L 411) MEAN CORPUSCULAR VOLUME (BEAKER) 76.2 fL 82.0-99.0 L (test code = 753) MEAN CORPUSCULAR HEMOGLOBIN 22.1 pg 27.0-33.0 L (BEAKER) (test code = 751) MEAN CORPUSCULAR HEMOGLOBIN CONC 29.1 GM/DL 32.0-36.0 L (BEAKER) (test code = 752) RED CELL DISTRIBUTION WIDTH 18.2 % 12.0-15.0 H (BEAKER) (test code = 412) PLATELET COUNT (BEAKER) (test 359 K/CU MM 150-430 code = 756) MEAN PLATELET VOLUME (BEAKER) 9.6 fL 6.0-11.5 (test code = 754) NUCLEATED RED BLOOD CELLS 0 /100 WBC 0-0 (BEAKER) (test code = 413) (MANUAL DIFFERENTIAL)2020-01-08 08:33:00 Test Item Value Reference Range Interpretation Comments NEUTROPHILS - REL (DIFF) (BEAKER) 48 % (test code = 1359) LYMPHOCYTES - REL (DIFF) (BEAKER) 30 % (test code = 1360) MONOCYTES - REL (DIFF) (BEAKER) 7 % (test code = 1361) EOSINOPHILS - REL (DIFF) (BEAKER) 15 % (test code = 1362) NEUTROPHILS - ABS (DIFF) (BEAKER) 3.26 K/ L 1.80-8.00 (test code = 1365) LYMPHOCYTES - ABS (DIFF) (BEAKER) 2.04 K/ L 1.48-4.50 (test code = 1366) MONOCYTES - ABS (DIFF) (BEAKER) 0.48 K/ L 0.00-1.30 (test code = 1367) EOSINOPHILS - ABS (DIFF) (BEAKER) 1.02 K/ L 0.00-0.50 H (test code = 1368) TOTAL COUNTED (BEAKER) (test code = 100 1351) WBC MORPHOLOGY (BEAKER) (test code Normal = 487) PLT MORPHOLOGY (BEAKER) (test code Normal = 486) RBC MORPHOLOGY (BEAKER) (test code Normal = 762) HEMOGLOBIN [id number] 06:43:00 Test Item Value Reference Range Interpretation Comments HEMOGLOBIN A1C (BEAKER) (test code = 5.6 % 4.3-6.1 368) [facility] ID - [id number] 06:41:00 Test Item Value Reference Range Interpretation Comments TROPONIN I (BEAKER) (test code = 397) < ng/mL 0.00-0.15 Troponin I (TnI) levels [...] failure, acidosis, acute neurological disease, and persistent tachyarrhythmia.Manager [facility] Term [facility] ID - [id number] PANEL 2020-01-08 06:33:00 Test Item Value Reference Range Interpretation Comments TRIGLYCERIDES (BEAKER) (test code = 143 mg/dL 540) CHOLESTEROL (BEAKER) (test code = 188 mg/dL 631) HDL CHOLESTEROL (BEAKER) (test code 41 mg/dL = 976) LDL CHOLESTEROL CALCULATED (BEAKER) 118 mg/dL (test code = 633) Triglyceride Reference Range: Low Risk <150 Borderline 150-199 High Risk 200-499 Very High Risk >=500Cholesterol Reference Range: Low Risk <200 Borderline 200-239 High Risk >240HDL Cholesterol Reference Range: Low Risk >=60 High Risk <40LDL Cholesterol Reference Range: Optimal <100 Near Optimal 100-129 Borderline 130-159 High 160-189 Very High >=190 [facility] ID - [id number] METABOLIC [id number] 06:33:00 Test Item Value Reference Range Interpretation Comments SODIUM (BEAKER) 138 meq/L 135-148 (test code = 381) POTASSIUM (BEAKER) 3.8 meq/L 3.5-5.5 (test code = 379) CHLORIDE (BEAKER) 107 meq/L 98-106 H (test code = 382) CO2 (BEAKER) (test 22 meq/L 20-31 code = 355) BLOOD UREA NITROGEN 17 mg/dL 10-26 (BEAKER) (test code = 354) CREATININE (BEAKER) 0.74 mg/dL 0.50-1.20 (test code = 358) GLUCOSE RANDOM 97 mg/dL 70-110 (BEAKER) (test code = 652) CALCIUM (BEAKER) 9.0 mg/dL 8.5-10.5 (test code = 697) EGFR (BEAKER) (test 112 mL/min/1.73 ESTIM ATED GFR IS code = 1092) sq m NOT ACCURATE CREATININE CLEARANCE IN PREDICTING GLOMERULAR FILTRATION RATE . ESTIMATED GFR I S NOT APPLICABLE FOR DIALYSIS PATIEN TS. Manager Long Term Care ID - [id number] 00:45:00 Test Item Value Reference Range Interpretation Comments TROPONIN I (BEAKER) (test code = 397) < ng/mL 0.00-0.15 Troponin I (TnI) levels [...] failure, acidosis, acute neurological disease, and persistent tachyarrhythmia.Manager [facility] Term Care ID - [id number] W/AUTO DIFF 2019-11-07 07:33:00 Test Item Value Reference Range Interpretation Comments WHITE BLOOD CELL (test code = 4.43 x10 3/uL 4.5-11.0 L WBC) RED BLOOD CELL (test code = 3.78 x10 6/uL 4.00-5.60 L RBC) HEMOGLOBIN (test code = HGB) 9.7 g/dL 12.5-16.9 L HEMATOCRIT (test code = HCT) 31.8 % 37.5-50.7 L MEAN CELL VOLUME (test code = 84.1 fL 81.0-99.0 N MCV) MEAN CELL HGB (test code = MCH) 25.7 pg 27.0-33.0 L MEAN CELL HGB CONCETRATION 30.5 g/dL 33.0-37.0 L (test code = MCHC) RED CELL DISTRIBUTION WIDTH CV 23.3 % 11.5-14.5 H (test code = RDW) RED CELL DISTRIBUTION WIDTH SD 70.4 fL 37.0-54.0 H (test code = RDW-SD) PLATELET COUNT (test code = 253 x10 3/uL 150-400 N PLT) MEAN PLATELET VOLUME (test code 9.8 fL 7.0-9.0 H = MPV) NEUTROPHIL % (test code = NT%) 60.5 % 56.0-77.0 N IMMATURE GRANULOCYTE % (test 0.2 % 0.0-2.0 N code = IG%) LYMPHOCYTE % (test code = LY%) 19.6 % 14.0-32.0 N MONOCYTE % (test code = MO%) 19.2 % 4.8-9.0 H EOSINOPHIL % (test code = EO%) 0.0 % 0.3-3.7 L BASOPHIL % (test code = BA%) 0.5 % 0.0-2.0 N NUCLEATED RBC % (test code = 0.0 % 0-0 N NRBC%) NEUTROPHIL # (test code = NT#) 2.68 x10 3/uL 2.0-7.6 N IMMATURE GRANULOCYTE # (test 0.01 x10 3/uL 0.00-0.03 N code = IG#) LYMPHOCYTE # (test code = LY#) 0.87 x10 3/uL 1.0-3.8 L MONOCYTE # (test code = MO#) 0.85 x10 3/uL 0.1-0.8 H EOSINOPHIL # (test code = EO#) 0.00 x10 3/uL 0.0-0.2 N BASOPHIL # (test code = BA#) 0.02 x10 3/uL 0.0-0.2 N NUCLEATED RBC # (test code = 0.00 x10 3/uL 0.0-0.1 N NRBC#) MANUAL DIFF REQUIRED (test code NO = MDIFF) BASIC METABOLIC [id number] 07:26:00 Test Item Value Reference Range Interpretation Comments SODIUM (test code = NA) 137 mEq/L 134-147 N POTASSIUM (test code = 4.1 mEq/L 3.4-5.0 N K) CHLORIDE (test code = 106 mEq/L 100-108 N CL) CARBON DIOXIDE (test 27 mEq/L 21-33 N code = CO2) ANION GAP (test code = 8 0-20 N GAP) GLUCOSE (test code = 108 mg/dL 70-110 N GLU) BLOOD UREA NITROGEN 24 mg/dL 7-18 H (test code = BUN) GLOMERULAR FILTRATION 90.1 95-105 L Units of measure = RATE (test code = GFR) ml/mi n/1.73 m2 CREATININE (test code = 0.9 mg/dL 0.6-1.3 CREAT) CALCIUM (test code = 8.8 mg/dL 8.0-10.5 N CA) - XR FLUOROSCOPY 0-60 [id number] 20:23:00 FAX: Nik Fleming MD [phone] [place] [facility] FAX: Adan BenavideziqJorge [phone] Name: GERMÁN EUBANKS [facility] : 1970 Age/S: 49/M [address] [place] [address] Unit #: [id number] Loc: [address] [place] [id number] Phys: Michael Benavidez MD Acct: G [id number] Dis Date: Status: ADM IN PHONE #: [phone] Exam Date: 11/06/20191948 FAX #: [phone] Reason: RT PORT-A-CATH EXAMS: CPT CODE: [id number] XR FLUOROSCOPY 0-60 MIN 57216 Intraprocedural fluoroscopy was provided by the Department of Radiology. Any images obtained were interpreted by the surgeon intraoperatively. Fluoroscopy time: 37 seconds Air kerma: 9.40 mGy SL: BM-H at 2022 Reported and signed by: Surjit Barth M.D. CC: Nik Fleming MD; Michael Benavidez MD Technologist: RT Ana(R) Trnscrd Date/Time/By: 11/06/2019 (2022) : By: [email or web address] Orig Print D/T: S: 11/06/2019 (2025) PAGE 1 Signed ReportPROTHROMBIN [id number] 18:22:00 Test Item Value Reference Range Interpretation Comments PROTHROMBIN TIME 11.9 SECONDS 9.3-12.9 N PATIENT (test code = PTP) INTERNATIONAL NORMAL 1.1 0.8-1.2 N TARGET RATIO (test code = INR BY IN DICATION INR) Indication INR1. Prophyl axis of venous thrombos is 2.0 - 3. 0 (orthopedic minesh graham), Prophylaxis of venous thrombos is (other than hig h-risk surgery), Court tment of Deep Vein Thrombosis/Pulm onary Embolism, Preve ntion of systemic emb olism - Tissue heart va lves, Acute Myocardia l Infarction (to prevent systemic embo lism), Valvular heart disease, Atri al Fibrillation, Bileaflet mecha nical valve in aortic position.2. Mec hanical prosthetic valv es (high risk), 2.5 - 3.5 Presence of Lupus Anticoagu lant or Antiphospholi pid Antibodies, Pre vention of systemic e mbolism - Acute Myocard ial Infarction (t o prevent recurre nt infarct). THROMBOPLASTIN TIME [id number] 18:22:00 Test Item Value Reference Range Interpretation Comments THROMBOPLASTIN TIME PARTIAL (test Seconds 25.0-39.5 code = PTT) PROTHROMBIN [id number] 18:22:00 Test Item Value Reference Range Interpretation Comments PROTHROMBIN TIME 11.9 SECONDS 9.3-12.9 N PATIENT (test code = PTP) INTERNATIONAL NORMAL 1.1 0.8-1.2 N TARGET RATIO (test code = INR BY IN DICATION INR) Indication INR1. Prophyl axis of venous thrombos is 2.0 - 3. 0 (orthopedic minesh graham), Prophylaxis of venous thrombos is (other than hig h-risk surgery), Court tment of Deep Vein Thrombosis/Pulm onary Embolism, Preve ntion of systemic emb olism - Tissue heart va lves, Acute Myocardia l Infarction (to prevent systemic embo lism), Valvular heart disease, Atri al Fibrillation, Bileaflet mecha nical valve in aortic position.2. Mec hanical prosthetic valv es (high risk), 2.5 - 3.5 Presence of Lupus Anticoagu lant or Antiphospholi pid Antibodies, Pre vention of systemic e mbolism - Acute Myocard ial Infarction (t o prevent recurre nt infarct). THROMBOPLASTIN TIME [id number] 18:22:00 Test Item Value Reference Range Interpretation Comments THROMBOPLASTIN TIME 30.9 Seconds 25.0-39.5 N Ther apeutic PARTIAL (test code = Range: 50.4 - 88.3 PTT) Seconds Effective 01/24/2019 - XR CHEST 1 [id number] 18:06:00 FAX: Nik Fleming MD [phone] [place]: [facility] FAX: Adan BenavideziqJorge [phone] Name: CHAGERMÁN [facility] : 1970 Age/S: 49/M [address] [place] [address] Unit #: [id number] Loc: [id number].[id number] [place] [address] Phys: Michael Benavidez MD Acct: [id number] Dis Date: Status: ADM IN PHONE #: [phone] Exam Date: 11/06/20191800 FAX #: [phone] Reason: Post Op EXAMS: CPT CODE: [id number] XR CHEST 1 V 19997 SINGLE VIEW RADIOGRAPH CHEST INDICATION: Post Op. TECHNIQUE: A single view frontal radiograph of the chest was obtained. COMPARISONS: Chest x-ray 10/12/2019 FINDINGS: There is no acute osseous fracture or dislocation. There is no bryant bdiaphragmatic free gas. There are surgical clips in the upper abdomen. There is a stable right-sided Cevrts-a-Mkdf with catheter tip in the superior vena cava.The cardiomediastinal size and contour are normal. There are low lung volumes. There is no pneumothorax, pleural effusion or organized pneumonia. IMPRESSION: 1. No acute cardiopulmonary process. There are low lung volumes. at 1806 Reported and signed by: Humberto Alberts D.O. CC: Denny DALEY; Michael Benavidez MD Technologist: RT William(R) Trnscrd Date/Time/By: 11/06/2019 (1805) : By: [email or web address] Orig Print D/T: S: 11/06/2019 (1808) PAGE 1 Signed ReportBASIC METABOLIC [id number] 18:05:00 Test Item Value Reference Range Interpretation Comments SODIUM (test code = NA) 140 mEq/L 134-147 N POTASSIUM (test code = 4.1 mEq/L 3.4-5.0 N K) CHLORIDE (test code = 108 mEq/L 100-108 N CL) CARBON DIOXIDE (test 25 mEq/L 21-33 N code = CO2) ANION GAP (test code = 11 0-20 N GAP) GLUCOSE (test code = 127 mg/dL 70-110 H GLU) BLOOD UREA NITROGEN 28 mg/dL 7-18 H (test code = BUN) GLOMERULAR FILTRATION 54.1 95-105 L Units of measure = RATE (test code = GFR) ml/mi n/1.73 m2 CREATININE (test code = 1.4 mg/dL 0.6-1.3 H CREAT) CALCIUM (test code = 8.9 mg/dL 8.0-10.5 N CA) CBC W/AUTO [id number] 17:43:00 Test Item Value Reference Range Interpretation Comments WHITE BLOOD CELL (test code = 9.54 x10 3/uL 4.5-11.0 N WBC) RED BLOOD CELL (test code = 4.04 x10 6/uL 4.00-5.60 N RBC) HEMOGLOBIN (test code = HGB) 10.3 g/dL 12.5-16.9 L HEMATOCRIT (test code = HCT) 34.1 % 37.5-50.7 L MEAN CELL VOLUME (test code = 84.4 fL 81.0-99.0 N MCV) MEAN CELL HGB (test code = MCH) 25.5 pg 27.0-33.0 L MEAN CELL HGB CONCETRATION 30.2 g/dL 33.0-37.0 L (test code = MCHC) RED CELL DISTRIBUTION WIDTH CV 23.2 % 11.5-14.5 H (test code = RDW) RED CELL DISTRIBUTION WIDTH SD 70.1 fL 37.0-54.0 H (test code = RDW-SD) PLATELET COUNT (test code = 237 x10 3/uL 150-400 N PLT) MEAN PLATELET VOLUME (test code 8.9 fL 7.0-9.0 N = MPV) NEUTROPHIL % (test code = NT%) 73.3 % 56.0-77.0 N IMMATURE GRANULOCYTE % (test 0.2 % 0.0-2.0 N code = IG%) LYMPHOCYTE % (test code = LY%) 11.9 % 14.0-32.0 L MONOCYTE % (test code = MO%) 12.7 % 4.8-9.0 H EOSINOPHIL % (test code = EO%) 1.6 % 0.3-3.7 N BASOPHIL % (test code = BA%) 0.3 % 0.0-2.0 N NUCLEATED RBC % (test code = 0.0 % 0-0 N NRBC%) NEUTROPHIL # (test code = NT#) 6.99 x10 3/uL 2.0-7.6 N IMMATURE GRANULOCYTE # (test 0.02 x10 3/uL 0.00-0.03 N code = IG#) LYMPHOCYTE # (test code = LY#) 1.14 x10 3/uL 1.0-3.8 N MONOCYTE # (test code = MO#) 1.21 x10 3/uL 0.1-0.8 H EOSINOPHIL # (test code = EO#) 0.15 x10 3/uL 0.0-0.2 N BASOPHIL # (test code = BA#) 0.03 x10 3/uL 0.0-0.2 N NUCLEATED RBC # (test code = 0.00 x10 3/uL 0.0-0.1 N NRBC#) MANUAL DIFF REQUIRED (test code NO = MDIFF) TROPONIN-I [id number] 13:32:00 Test Item Value Reference Range Interpretation Comments TROPONIN-I RAPID 0.01 ng/mL 0.00-0.08 N Performed b y certified (test code = receptionist telephone operator at [facility] Negative: <= 0.0 8 Positive: >= 0.09An elevated troponin value alone is not sufficient todi agnose a myocardial infa rction. Rather, the pat ient sclinical prese ntation (history, physi magdaleno exam) and ECGshould b e used in conjunction wit h troponin in thediagnosti c evaluation of s uspected myocardial infa rction. Aserial samplin g protocol is recommended to facilitate the identification of temporal changes in trop onin levels characteristic of [place]. [id number] 08:24:00 Test Item Value Reference Range Interpretation Comments CREATININE (test code = CREAT) 0.9 mg/dL 0.6-1.3 N CBC W/O [id number] 07:16:00 Test Item Value Reference Range Interpretation Comments WHITE BLOOD CELL (test code = 7.95 x10 3/uL 4.5-11.0 N WBC) RED BLOOD CELL (test code = 4.23 x10 6/uL 4.00-5.60 N RBC) HEMOGLOBIN (test code = HGB) 10.4 g/dL 12.5-16.9 L HEMATOCRIT (test code = HCT) 35.8 % 37.5-50.7 L MEAN CELL VOLUME (test code = 84.6 fL 81.0-99.0 N MCV) MEAN CELL HGB (test code = MCH) 24.6 pg 27.0-33.0 L MEAN CELL HGB CONCETRATION 29.1 g/dL 33.0-37.0 L (test code = MCHC) RED CELL DISTRIBUTION WIDTH CV 23.4 % 11.5-14.5 H (test code = RDW) RED CELL DISTRIBUTION WIDTH SD 72.6 fL 37.0-54.0 H (test code = RDW-SD) PLATELET COUNT (test code = 327 x10 3/uL 150-400 N PLT) MEAN PLATELET VOLUME (test code 9.2 fL 7.0-9.0 H = MPV) PROTHROMBIN [id number] 04:52:00 Test Item Value Reference Range Interpretation Comments PROTHROMBIN TIME 12.1 SECONDS 9.3-12.9 N PATIENT (test code = PTP) INTERNATIONAL NORMAL 1.1 0.8-1.2 N TARGET RATIO (test code = INR BY IN DICATION INR) Indication INR1. Prophyl axis of venous thrombos is 2.0 - 3. 0 (orthopedic minesh graham), Prophylaxis of venous thrombos is (other than hig h-risk surgery), Court tment of Deep Vein Thrombosis/Pulm onary Embolism, Preve ntion of systemic emb olism - Tissue heart va lves, Acute Myocardia l Infarction (to prevent systemic embo lism), Valvular heart disease, Atri al Fibrillation, Bileaflet mecha nical valve in aortic position.2. Mec hanical prosthetic valv es (high risk), 2.5 - 3.5 Presence of Lupus Anticoagu lant or Antiphospholi pid Antibodies, Pre vention of systemic e mbolism - Acute Myocard ial Infarction (t o prevent recurre nt infarct). CBC W/AUTO [id number] 07:50:00 Test Item Value Reference Range Interpretation Comments WHITE BLOOD CELL (test code = 7.32 x10 3/uL 4.5-11.0 N WBC) RED BLOOD CELL (test code = 4.23 x10 6/uL 4.00-5.60 N RBC) HEMOGLOBIN (test code = HGB) 10.3 g/dL 12.5-16.9 L HEMATOCRIT (test code = HCT) 34.7 % 37.5-50.7 L MEAN CELL VOLUME (test code = 82.0 fL 81.0-99.0 N MCV) MEAN CELL HGB (test code = MCH) 24.3 pg 27.0-33.0 L MEAN CELL HGB CONCETRATION 29.7 g/dL 33.0-37.0 L (test code = MCHC) RED CELL DISTRIBUTION WIDTH CV 23.6 % 11.5-14.5 H (test code = RDW) RED CELL DISTRIBUTION WIDTH SD 70.9 fL 37.0-54.0 H (test code = RDW-SD) PLATELET COUNT (test code = 293 x10 3/uL 150-400 N PLT) MEAN PLATELET VOLUME (test code 9.3 fL 7.0-9.0 H = MPV) NEUTROPHIL % (test code = NT%) 53.2 % 56.0-77.0 L IMMATURE GRANULOCYTE % (test 0.3 % 0.0-2.0 N code = IG%) LYMPHOCYTE % (test code = LY%) 25.1 % 14.0-32.0 N MONOCYTE % (test code = MO%) 13.9 % 4.8-9.0 H EOSINOPHIL % (test code = EO%) 7.1 % 0.3-3.7 H BASOPHIL % (test code = BA%) 0.4 % 0.0-2.0 N NUCLEATED RBC % (test code = 0.0 % 0-0 N NRBC%) NEUTROPHIL # (test code = NT#) 3.89 x10 3/uL 2.0-7.6 N IMMATURE GRANULOCYTE # (test 0.02 x10 3/uL 0.00-0.03 N code = IG#) LYMPHOCYTE # (test code = LY#) 1.84 x10 3/uL 1.0-3.8 N MONOCYTE # (test code = MO#) 1.02 x10 3/uL 0.1-0.8 H EOSINOPHIL # (test code = EO#) 0.52 x10 3/uL 0.0-0.2 H BASOPHIL # (test code = BA#) 0.03 x10 3/uL 0.0-0.2 N NUCLEATED RBC # (test code = 0.00 x10 3/uL 0.0-0.1 N NRBC#) MANUAL DIFF REQUIRED (test code NO = MDIFF) BASIC METABOLIC [id number] 07:25:00 Test Item Value Reference Range Interpretation Comments SODIUM (test code = NA) 140 mEq/L 134-147 N POTASSIUM (test code = 3.9 mEq/L 3.4-5.0 N K) CHLORIDE (test code = 106 mEq/L 100-108 N CL) CARBON DIOXIDE (test 29 mEq/L 21-33 N code = CO2) ANION GAP (test code = 9 0-20 N GAP) GLUCOSE (test code = 93 mg/dL 70-110 N GLU) BLOOD UREA NITROGEN 12 mg/dL 7-18 N (test code = BUN) GLOMERULAR FILTRATION 90.1 95-105 L Units of measure = RATE (test code = GFR) ml/mi n/1.73 m2 CREATININE (test code = 0.9 mg/dL 0.6-1.3 N CREAT) CALCIUM (test code = 8.4 mg/dL 8.0-10.5 N CA) [id number] 09:52:00 Test Item Value Reference Range Interpretation Comments TROPONIN-I < 0.015 ng/mL 0.000-0.045 N Negative: <= (test code = 0.045 Positive: TROPI) >= 0.046 Correl ation with serial results, other cardiac markers andclinical findings is nec essary to determine the clinicalsignifi cance of this result. Results using different metho dologies should not be c omparedto one another as bindu titative results may nicky y by method. COMMENTS: 3 troponins total (including troponin done in ED)[id number] 06:39:00 Test Item Value Reference Range Interpretation Comments TROPONIN-I < 0.015 ng/mL 0.000-0.045 N Negative: <= (test code = 0.045 Positive: TROPI) >= 0.046 Correl ation with serial results, other cardiac markers andclinical findings is nec essary to determine the clinicalsignifi cance of this result. Results using different metho dologies should not be c omparedto one another as bindu titative results may nicky y by method. COMMENTS: 3 troponins total (including troponin done in ED)B-TYPE NATRIURETIC [id number] 04:29:00 Test Item Value Reference Range Interpretation Comments B-TYPE NATRIURETIC PEPTIDE (test 49.0 PG/ML 0-100 N code = BNP) BASIC METABOLIC [id number] 04:12:00 Test Item Value Reference Range Interpretation Comments SODIUM (test code = NA) 140 mEq/L 134-147 N POTASSIUM (test code = 4.1 mEq/L 3.4-5.0 N K) CHLORIDE (test code = 108 mEq/L 100-108 N CL) CARBON DIOXIDE (test 26 mEq/L 21-33 N code = CO2) ANION GAP (test code = 10 0-20 N GAP) GLUCOSE (test code = 111 mg/dL 70-110 H GLU) BLOOD UREA NITROGEN 13 mg/dL 7-18 N (test code = BUN) GLOMERULAR FILTRATION 79.8 95-105 L Units of measure = RATE (test code = GFR) ml/mi n/1.73 m2 CREATININE (test code = 1.0 mg/dL 0.6-1.3 N CREAT) CALCIUM (test code = 8.5 mg/dL 8.0-10.5 N CA) HEPATIC FUNCTION [id number] 04:12:00 Test Item Value Reference Range Interpretation Comments TOTAL PROTEIN (test code = PROT) 7.5 g/dL 6.4-8.2 N ALBUMIN (test code = ALB) 3.60 g/dL 3.4-5.0 N BILIRUBIN TOTAL (test code = 0.4 MG/DL <1.5 N BILT) BILIRUBIN DIRECT (test code = < 0.10 MG/DL 0.0-0.30 N BILD) BILIRUBIN INDIRECT (test code = 0.30 MG/DL BILIND) SGOT/AST (test code = AST) 12 IUnit/L 15-37 L SGPT/ALT (test code = ALT) 16 IUnit/L 15-65 N ALKALINE PHOSPHATASE TOTAL (test 94 IUnit/L 20-125 N code = ALKP) [id number] 04:12:00 Test Item Value Reference Range Interpretation Comments LIPASE (test code = LIP) 67 IUnit/L 73-393 L [id number] 04:12:00 Test Item Value Reference Range Interpretation Comments TROPONIN-I < 0.015 ng/mL 0.000-0.045 N Negative: <= (test code = 0.045 Positive: TROPI) >= 0.046 Correl ation with serial results, other cardiac markers andclinical findings is nec essary to determine the clinicalsignifi cance of this result. Results using different metho dologies should not be c omparedto one another as bindu titative results may nicky y by method. BASIC METABOLIC [id number] 04:04:00 Test Item Value Reference Range Interpretation Comments SODIUM (test code = NA) mEq/L 134-147 POTASSIUM (test code = K) mEq/L 3.4-5.0 CHLORIDE (test code = CL) mEq/L 100-108 CARBON DIOXIDE (test code = CO2) mEq/L 21-33 ANION GAP (test code = GAP) 0-20 GLUCOSE (test code = GLU) mg/dL 70-110 BLOOD UREA NITROGEN (test code = BUN) mg/dL 7-18 GLOMERULAR FILTRATION RATE (test code 95-105 = GFR) CREATININE (test code = CREAT) mg/dL 0.6-1.3 CALCIUM (test code = CA) mg/dL 8.0-10.5 HEPATIC FUNCTION [id number] 04:04:00 Test Item Value Reference Range Interpretation Comments TOTAL PROTEIN (test code = PROT) g/dL 6.4-8.2 ALBUMIN (test code = ALB) g/dL 3.4-5.0 BILIRUBIN TOTAL (test code = BILT) MG/DL <1.5 BILIRUBIN DIRECT (test code = BILD) MG/DL 0.0-0.30 SGOT/AST (test code = AST) IUnit/L 15-37 SGPT/ALT (test code = ALT) IUnit/L 15-65 ALKALINE PHOSPHATASE TOTAL (test IUnit/L 20-125 code = ALKP) [id number] 04:04:00 Test Item Value Reference Range Interpretation Comments LIPASE (test code = LIP) IUnit/L 73-393 [id number] 04:04:00 Test Item Value Reference Range Interpretation Comments TROPONIN-I < 0.015 ng/mL 0.000-0.045 N Negative: <= (test code = 0.045 Positive: TROPI) >= 0.046 Correl ation with serial results, other cardiac markers andclinical findings is nec essary to determine the clinicalsignifi cance of this result. Results using different metho dologies should not be c omparedto one another as bindu titative results may nicky y by method. PROTHROMBIN [id number] 03:55:00 Test Item Value Reference Range Interpretation Comments PROTHROMBIN TIME 12.6 SECONDS 9.3-12.9 N PATIENT (test code = PTP) INTERNATIONAL NORMAL 1.2 0.8-1.2 N TARGET RATIO (test code = INR BY IN DICATION INR) Indication INR1. Prophyl axis of venous thrombos is 2.0 - 3. 0 (orthopedic minesh graham), Prophylaxis of venous thrombos is (other than hig h-risk surgery), Court tment of Deep Vein Thrombosis/Pulm onary Embolism, Preve ntion of systemic emb olism - Tissue heart va lves, Acute Myocardia l Infarction (to prevent systemic embo lism), Valvular heart disease, Atri al Fibrillation, Bileaflet mecha nical valve in aortic position.2. Mec hanical prosthetic valv es (high risk), 2.5 - 3.5 Presence of Lupus Anticoagu lant or Antiphospholi pid Antibodies, Pre vention of systemic e mbolism - Acute Myocard ial Infarction (t o prevent recurre nt infarct). THROMBOPLASTIN TIME [id number] 03:55:00 Test Item Value Reference Range Interpretation Comments THROMBOPLASTIN TIME 21.6 Seconds 25.0-39.5 L Ther apeutic PARTIAL (test code = Range: 50.4 - 88.3 PTT) Seconds Effective 01/24/2019 CBC W/AUTO [id number] 03:46:00 Test Item Value Reference Range Interpretation Comments WHITE BLOOD CELL (test code = 10.79 x10 3/uL 4.5-11.0 WBC) RED BLOOD CELL (test code = 4.46 x10 6/uL 4.00-5.60 N RBC) HEMOGLOBIN (test code = HGB) 10.9 g/dL 12.5-16.9 L HEMATOCRIT (test code = HCT) 35.9 % 37.5-50.7 L MEAN CELL VOLUME (test code = 80.5 fL 81.0-99.0 L MCV) MEAN CELL HGB (test code = 24.4 pg 27.0-33.0 L MCH) MEAN CELL HGB CONCETRATION 30.4 g/dL 33.0-37.0 L (test code = MCHC) RED CELL DISTRIBUTION WIDTH CV 23.7 % 11.5-14.5 H (test code = RDW) RED CELL DISTRIBUTION WIDTH SD 68.6 fL 37.0-54.0 H (test code = RDW-SD) PLATELET COUNT (test code = 312 x10 3/uL 150-400 N PLT) MEAN PLATELET VOLUME (test 8.8 fL 7.0-9.0 N code = MPV) NEUTROPHIL % (test code = NT%) 67.4 % 56.0-77.0 N IMMATURE GRANULOCYTE % (test 0.4 % 0.0-2.0 N code = IG%) LYMPHOCYTE % (test code = LY%) 20.0 % 14.0-32.0 N MONOCYTE % (test code = MO%) 10.3 % 4.8-9.0 H EOSINOPHIL % (test code = EO%) 1.7 % 0.3-3.7 N BASOPHIL % (test code = BA%) 0.2 % 0.0-2.0 N NUCLEATED RBC % (test code = 0.0 % 0-0 N NRBC%) NEUTROPHIL # (test code = NT#) 7.28 x10 3/uL 2.0-7.6 N IMMATURE GRANULOCYTE # (test 0.04 x10 3/uL 0.00-0.03 H code = IG#) LYMPHOCYTE # (test code = LY#) 2.16 x10 3/uL 1.0-3.8 N MONOCYTE # (test code = MO#) 1.11 x10 3/uL 0.1-0.8 H EOSINOPHIL # (test code = EO#) 0.18 x10 3/uL 0.0-0.2 N BASOPHIL # (test code = BA#) 0.02 x10 3/uL 0.0-0.2 N NUCLEATED RBC # (test code = 0.00 x10 3/uL 0.0-0.1 N NRBC#) MANUAL DIFF REQUIRED (test NO code = IFF) - XR CHEST 1 [id number] 03:25:00 FAX: Nasim Pierre MD [phone] [place]: [address] St: REG Name: GERMÁN EUBANKS [facility] : 1970 Age/S: 49/M [address] [place] [address] Unit#: [id number] Loc: [place] [address] Phys: Nasim Davey MD Acct: [id number] Dis Date: Status: REG ER PHONE #: [phone] Exam Date: 10/12/2019314 FAX #: [phone] Reason: Chest Pain EXAMS: CPT CODE: [id number] XR CHEST 1 V 64027 EXAM: CR, XR chest one view: 10/12/2019, 0304 hours HISTORY: Chest Pain TECHNIQUE: 1 view of the chest. COMPARISON: 09/20/2019 FINDINGS: Trachea is midline. Heart is normal in size. Pulmonary vascularity is unremarkable. Stable right IJ venous catheter. There is no airspace consolidation, pleural effusion or pneumothorax. Osseous structures are stable.. IMPRESSION: No acute cardiopulmonary disease seen. SL: [JSYED-H] at 0325 Reported and signedby: Juliocesar Garcia M.D. CC: Nasim Davey MD Technologist: Mariaa Escamilla RT(R) Trnscrd Date/Time/By: 10/12/2019 (0325) : By: [email or web address] [facility] Print D/T: S: 10/12/2019 (0328) PAGE 1 Signed Report VANCOMYCIN [id number] 17:13:00 Test Item Value Reference Range Interpretation Comments VANCOMYCIN TROUGH 10.7 mcg/mL 10.0-20.0 N 10-15 mcg/ mL - (test code = VANCT) Cellulit is, Urinary Tract Infection . 15-20 mcg/mL - Bacteremia, Infective Endocarditis, Meningitis, Osteomyelitis, Pneumonia, Corina re Skin/Soft-Tissu e Infection, Sp inal Abscess. BASIC METABOLIC [id number] 07:48:00 Test Item Value Reference Range Interpretation Comments SODIUM (test code = NA) 139 mEq/L 134-147 N POTASSIUM (test code = 3.7 mEq/L 3.4-5.0 N K) CHLORIDE (test code = 110 mEq/L 100-108 H CL) CARBON DIOXIDE (test 24 mEq/L 21-33 N code = CO2) ANION GAP (test code = 9 0-20 N GAP) GLUCOSE (test code = 81 mg/dL 70-110 N GLU) BLOOD UREA NITROGEN 17 mg/dL 7-18 N (test code = BUN) GLOMERULAR FILTRATION 103.2 95-105 N Units of measure = RATE (test code = GFR) ml/mi n/1.73 m2 CREATININE (test code = 0.8 mg/dL 0.6-1.3 N CREAT) CALCIUM (test code = 8.6 mg/dL 8.0-10.5 N CA) CBC W/AUTO [id number] 07:29:00 Test Item Value Reference Range Interpretation Comments WHITE BLOOD CELL (test code = 6.81 x10 3/uL 4.5-11.0 N WBC) RED BLOOD CELL (test code = 3.48 x10 6/uL 4.00-5.60 L RBC) HEMOGLOBIN (test code = HGB) 7.5 g/dL 12.5-16.9 L HEMATOCRIT (test code = HCT) 26.1 % 37.5-50.7 L MEAN CELL VOLUME (test code = 75.0 fL 81.0-99.0 L MCV) MEAN CELL HGB (test code = MCH) 21.6 pg 27.0-33.0 L MEAN CELL HGB CONCETRATION 28.7 g/dL 33.0-37.0 L (test code = MCHC) RED CELL DISTRIBUTION WIDTH CV 19.5 % 11.5-14.5 H (test code = RDW) RED CELL DISTRIBUTION WIDTH SD 52.5 fL 37.0-54.0 N (test code = RDW-SD) PLATELET COUNT (test code = 371 x10 3/uL 150-400 N PLT) MEAN PLATELET VOLUME (test code 9.4 fL 7.0-9.0 H = MPV) NEUTROPHIL % (test code = NT%) 40.4 % 56.0-77.0 L IMMATURE GRANULOCYTE % (test 0.6 % 0.0-2.0 N code = IG%) LYMPHOCYTE % (test code = LY%) 38.6 % 14.0-32.0 H MONOCYTE % (test code = MO%) 13.4 % 4.8-9.0 H EOSINOPHIL % (test code = EO%) 6.6 % 0.3-3.7 H BASOPHIL % (test code = BA%) 0.4 % 0.0-2.0 N NUCLEATED RBC % (test code = 0.4 % 0-0 H NRBC%) NEUTROPHIL # (test code = NT#) 2.75 x10 3/uL 2.0-7.6 N IMMATURE GRANULOCYTE # (test 0.04 x10 3/uL 0.00-0.03 H code = IG#) LYMPHOCYTE # (test code = LY#) 2.63 x10 3/uL 1.0-3.8 N MONOCYTE # (test code = MO#) 0.91 x10 3/uL 0.1-0.8 H EOSINOPHIL # (test code = EO#) 0.45 x10 3/uL 0.0-0.2 H BASOPHIL # (test code = BA#) 0.03 x10 3/uL 0.0-0.2 N NUCLEATED RBC # (test code = 0.03 x10 3/uL 0.0-0.1 N NRBC#) MANUAL DIFF REQUIRED (test code NO = MDIFF) [id number] 17:25:00 Test Item Value Reference Range Interpretation Comments VANCOMYCIN (test code = VANCO) 11.3 mcg/mL BASIC METABOLIC [id number] 08:36:00 Test Item Value Reference Range Interpretation Comments SODIUM (test code = NA) 142 mEq/L 134-147 N POTASSIUM (test code = 3.3 mEq/L 3.4-5.0 L K) CHLORIDE (test code = 112 mEq/L 100-108 H CL) CARBON DIOXIDE (test 24 mEq/L 21-33 N code = CO2) ANION GAP (test code = 9 0-20 N GAP) GLUCOSE (test code = 84 mg/dL 70-110 N GLU) BLOOD UREA NITROGEN 17 mg/dL 7-18 N (test code = BUN) GLOMERULAR FILTRATION 103.2 95-105 N Units of measure = RATE (test code = GFR) ml/mi n/1.73 m2 CREATININE (test code = 0.8 mg/dL 0.6-1.3 N CREAT) CALCIUM (test code = 7.6 mg/dL 8.0-10.5 L CA) CBC W/AUTO [id number] 08:33:00 Test Item Value Reference Range Interpretation Comments WHITE BLOOD CELL (test code = 6.70 x10 3/uL 4.5-11.0 N WBC) RED BLOOD CELL (test code = 3.49 x10 6/uL 4.00-5.60 L RBC) HEMOGLOBIN (test code = HGB) 7.5 g/dL 12.5-16.9 L HEMATOCRIT (test code = HCT) 26.5 % 37.5-50.7 L MEAN CELL VOLUME (test code = 75.9 fL 81.0-99.0 L MCV) MEAN CELL HGB (test code = MCH) 21.5 pg 27.0-33.0 L MEAN CELL HGB CONCETRATION 28.3 g/dL 33.0-37.0 L (test code = MCHC) RED CELL DISTRIBUTION WIDTH CV 19.5 % 11.5-14.5 H (test code = RDW) RED CELL DISTRIBUTION WIDTH SD 53.4 fL 37.0-54.0 N (test code = RDW-SD) PLATELET COUNT (test code = 360 x10 3/uL 150-400 N PLT) MEAN PLATELET VOLUME (test code 9.5 fL 7.0-9.0 H = MPV) NEUTROPHIL % (test code = NT%) 44.0 % 56.0-77.0 L IMMATURE GRANULOCYTE % (test 0.3 % 0.0-2.0 N code = IG%) LYMPHOCYTE % (test code = LY%) 36.3 % 14.0-32.0 H MONOCYTE % (test code = MO%) 12.4 % 4.8-9.0 H EOSINOPHIL % (test code = EO%) 6.4 % 0.3-3.7 H BASOPHIL % (test code = BA%) 0.6 % 0.0-2.0 N NUCLEATED RBC % (test code = 0.0 % 0-0 N NRBC%) NEUTROPHIL # (test code = NT#) 2.95 x10 3/uL 2.0-7.6 N IMMATURE GRANULOCYTE # (test 0.02 x10 3/uL 0.00-0.03 N code = IG#) LYMPHOCYTE # (test code = LY#) 2.43 x10 3/uL 1.0-3.8 N MONOCYTE # (test code = MO#) 0.83 x10 3/uL 0.1-0.8 H EOSINOPHIL # (test code = EO#) 0.43 x10 3/uL 0.0-0.2 H BASOPHIL # (test code = BA#) 0.04 x10 3/uL 0.0-0.2 N NUCLEATED RBC # (test code = 0.00 x10 3/uL 0.0-0.1 N NRBC#) MANUAL DIFF REQUIRED (test code NO = MDIFF) BASIC METABOLIC [id number] 08:45:00 Test Item Value Reference Range Interpretation Comments SODIUM (test code = NA) 141 mEq/L 134-147 N POTASSIUM (test code = 3.8 mEq/L 3.4-5.0 N K) CHLORIDE (test code = 111 mEq/L 100-108 H CL) CARBON DIOXIDE (test 25 mEq/L 21-33 N code = CO2) ANION GAP (test code = 9 0-20 N GAP) GLUCOSE (test code = 103 mg/dL 70-110 N GLU) BLOOD UREA NITROGEN 17 mg/dL 7-18 (test code = BUN) GLOMERULAR FILTRATION 103.2 95-105 N Units of measure = RATE (test code = GFR) ml/mi n/1.73 m2 CREATININE (test code = 0.8 mg/dL 0.6-1.3 N CREAT) CALCIUM (test code = 8.4 mg/dL 8.0-10.5 N CA) CBC W/AUTO [id number] 06:35:00 Test Item Value Reference Range Interpretation Comments WHITE BLOOD CELL (test code = 6.72 x10 3/uL 4.5-11.0 N WBC) RED BLOOD CELL (test code = 3.33 x10 6/uL 4.00-5.60 L RBC) HEMOGLOBIN (test code = HGB) 7.0 g/dL 12.5-16.9 L HEMATOCRIT (test code = HCT) 25.7 % 37.5-50.7 L MEAN CELL VOLUME (test code = 77.2 fL 81.0-99.0 L MCV) MEAN CELL HGB (test code = MCH) 21.0 pg 27.0-33.0 L MEAN CELL HGB CONCETRATION 27.2 g/dL 33.0-37.0 L (test code = MCHC) RED CELL DISTRIBUTION WIDTH CV 19.3 % 11.5-14.5 H (test code = RDW) RED CELL DISTRIBUTION WIDTH SD 54.5 fL 37.0-54.0 H (test code = RDW-SD) PLATELET COUNT (test code = 322 x10 3/uL 150-400 N PLT) MEAN PLATELET VOLUME (test code 9.3 fL 7.0-9.0 H = MPV) NEUTROPHIL % (test code = NT%) 50.2 % 56.0-77.0 L IMMATURE GRANULOCYTE % (test 0.6 % 0.0-2.0 N code = IG%) LYMPHOCYTE % (test code = LY%) 30.8 % 14.0-32.0 N MONOCYTE % (test code = MO%) 11.3 % 4.8-9.0 H EOSINOPHIL % (test code = EO%) 6.8 % 0.3-3.7 H BASOPHIL % (test code = BA%) 0.3 % 0.0-2.0 N NUCLEATED RBC % (test code = 0.0 % 0-0 N NRBC%) NEUTROPHIL # (test code = NT#) 3.37 x10 3/uL 2.0-7.6 N IMMATURE GRANULOCYTE # (test 0.04 x10 3/uL 0.00-0.03 H code = IG#) LYMPHOCYTE # (test code = LY#) 2.07 x10 3/uL 1.0-3.8 N MONOCYTE # (test code = MO#) 0.76 x10 3/uL 0.1-0.8 N EOSINOPHIL # (test code = EO#) 0.46 x10 3/uL 0.0-0.2 H BASOPHIL # (test code = BA#) 0.02 x10 3/uL 0.0-0.2 N NUCLEATED RBC # (test code = 0.00 x10 3/uL 0.0-0.1 N NRBC#) MANUAL DIFF REQUIRED (test code NO = MDIFF) BASIC METABOLIC [id number] 04:27:00 Test Item Value Reference Range Interpretation Comments SODIUM (test code = NA) 142 mEq/L 134-147 N POTASSIUM (test code = 3.6 mEq/L 3.4-5.0 N K) CHLORIDE (test code = 110 mEq/L 100-108 H CL) CARBON DIOXIDE (test 26 mEq/L 21-33 N code = CO2) ANION GAP (test code = 10 0-20 N GAP) GLUCOSE (test code = 100 mg/dL 70-110 N GLU) BLOOD UREA NITROGEN 9 mg/dL 7-18 (test code = BUN) GLOMERULAR FILTRATION 103.2 95-105 N Units of measure = RATE (test code = GFR) ml/mi n/1.73 m2 CREATININE (test code = 0.8 mg/dL 0.6-1.3 N CREAT) CALCIUM (test code = 8.3 mg/dL 8.0-10.5 N CA) CBC W/AUTO [id number] 04:18:00 Test Item Value Reference Range Interpretation Comments WHITE BLOOD CELL (test code = 7.50 x10 3/uL 4.5-11.0 N WBC) RED BLOOD CELL (test code = 3.59 x10 6/uL 4.00-5.60 L RBC) HEMOGLOBIN (test code = HGB) 7.7 g/dL 12.5-16.9 L HEMATOCRIT (test code = HCT) 27.2 % 37.5-50.7 L MEAN CELL VOLUME (test code = 75.8 fL 81.0-99.0 L MCV) MEAN CELL HGB (test code = MCH) 21.4 pg 27.0-33.0 L MEAN CELL HGB CONCETRATION 28.3 g/dL 33.0-37.0 L (test code = MCHC) RED CELL DISTRIBUTION WIDTH CV 19.5 % 11.5-14.5 H (test code = RDW) RED CELL DISTRIBUTION WIDTH SD 52.8 fL 37.0-54.0 N (test code = RDW-SD) PLATELET COUNT (test code = 345 x10 3/uL 150-400 N PLT) MEAN PLATELET VOLUME (test code 9.1 fL 7.0-9.0 H = MPV) NEUTROPHIL % (test code = NT%) 47.8 % 56.0-77.0 L IMMATURE GRANULOCYTE % (test 0.1 % 0.0-2.0 N code = IG%) LYMPHOCYTE % (test code = LY%) 32.3 % 14.0-32.0 H MONOCYTE % (test code = MO%) 12.5 % 4.8-9.0 H EOSINOPHIL % (test code = EO%) 6.8 % 0.3-3.7 H BASOPHIL % (test code = BA%) 0.5 % 0.0-2.0 N NUCLEATED RBC % (test code = 0.0 % 0-0 N NRBC%) NEUTROPHIL # (test code = NT#) 3.58 x10 3/uL 2.0-7.6 N IMMATURE GRANULOCYTE # (test 0.01 x10 3/uL 0.00-0.03 N code = IG#) LYMPHOCYTE # (test code = LY#) 2.42 x10 3/uL 1.0-3.8 N MONOCYTE # (test code = MO#) 0.94 x10 3/uL 0.1-0.8 H EOSINOPHIL # (test code = EO#) 0.51 x10 3/uL 0.0-0.2 H BASOPHIL # (test code = BA#) 0.04 x10 3/uL 0.0-0.2 N NUCLEATED RBC # (test code = 0.00 x10 3/uL 0.0-0.1 N NRBC#) MANUAL DIFF REQUIRED (test code NO = MDIFF) CBC W/AUTO [id number] 08:55:00 Test Item Value Reference Range Interpretation Comments WHITE BLOOD CELL (test code = 7.80 x10 3/uL 4.5-11.0 N WBC) RED BLOOD CELL (test code = 3.53 x10 6/uL 4.00-5.60 L RBC) HEMOGLOBIN (test code = HGB) 7.6 g/dL 12.5-16.9 L HEMATOCRIT (test code = HCT) 26.8 % 37.5-50.7 L MEAN CELL VOLUME (test code = 75.9 fL 81.0-99.0 L MCV) MEAN CELL HGB (test code = MCH) 21.5 pg 27.0-33.0 L MEAN CELL HGB CONCETRATION 28.4 g/dL 33.0-37.0 L (test code = MCHC) RED CELL DISTRIBUTION WIDTH CV 19.2 % 11.5-14.5 H (test code = RDW) RED CELL DISTRIBUTION WIDTH SD 52.9 fL 37.0-54.0 N (test code = RDW-SD) PLATELET COUNT (test code = 332 x10 3/uL 150-400 N PLT) MEAN PLATELET VOLUME (test code 9.5 fL 7.0-9.0 H = MPV) NEUTROPHIL % (test code = NT%) 49.4 % 56.0-77.0 L IMMATURE GRANULOCYTE % (test 0.4 % 0.0-2.0 N code = IG%) LYMPHOCYTE % (test code = LY%) 30.3 % 14.0-32.0 N MONOCYTE % (test code = MO%) 12.6 % 4.8-9.0 H EOSINOPHIL % (test code = EO%) 6.8 % 0.3-3.7 H BASOPHIL % (test code = BA%) 0.5 % 0.0-2.0 N NUCLEATED RBC % (test code = 0.0 % 0-0 N NRBC%) NEUTROPHIL # (test code = NT#) 3.86 x10 3/uL 2.0-7.6 N IMMATURE GRANULOCYTE # (test 0.03 x10 3/uL 0.00-0.03 N code = IG#) LYMPHOCYTE # (test code = LY#) 2.36 x10 3/uL 1.0-3.8 N MONOCYTE # (test code = MO#) 0.98 x10 3/uL 0.1-0.8 H EOSINOPHIL # (test code = EO#) 0.53 x10 3/uL 0.0-0.2 H BASOPHIL # (test code = BA#) 0.04 x10 3/uL 0.0-0.2 N NUCLEATED RBC # (test code = 0.00 x10 3/uL 0.0-0.1 N NRBC#) MANUAL DIFF REQUIRED (test code NO = MDIFF) BASIC METABOLIC [id number] 08:33:00 Test Item Value Reference Range Interpretation Comments SODIUM (test code = NA) 140 mEq/L 134-147 N POTASSIUM (test code = 3.7 mEq/L 3.4-5.0 N K) CHLORIDE (test code = 108 mEq/L 100-108 N CL) CARBON DIOXIDE (test 26 mEq/L 21-33 N code = CO2) ANION GAP (test code = 10 0-20 N GAP) GLUCOSE (test code = 97 mg/dL 70-110 N GLU) BLOOD UREA NITROGEN 16 mg/dL 7-18 N (test code = BUN) GLOMERULAR FILTRATION 90.1 95-105 L Units of measure = RATE (test code = GFR) ml/mi n/1.73 m2 CREATININE (test code = 0.9 mg/dL 0.6-1.3 N CREAT) CALCIUM (test code = 8.5 mg/dL 8.0-10.5 N CA) LIPID PROFILE (CORONARY RISK)2019-09-21 08:33:00 Test Item Value Reference Range Interpretation Comments TRIGLYCERIDES (test 117 mg/dL 40-150 N code = TRIG) CHOLESTEROL (test 199 mg/dL <200 code = CHOL) CHOLESTEROL/HDL 5.24 RATIO 3.43-4.97 H RISK ASSOCIA NEIL WITH RATIO (test code = CHOL/HDL RATIOS: RISK CHOLHDL) MALE FEMALE1/2 AVERA GE 3.43 3.27AVERAGE 4.97 4.4 42X AVERAGE 9.55 7.053X AVER AGE 23.39 1 1.04 NOTE THAT THE R EFERENCE VALUE IS RELATE DTO RISK LEVELS RECOM MENDED BY THE NATL.HEA RT, LUNG, AND BLOOD INST. HDL CHOLESTEROL 38.0 mg/dL 32-72 N (test code = HDL) LIPOPROTEIN LDL 141 mg/dL 0-100 H <100 OPT [id number] (test code = LDL) NEAR OPTI MAL/ABOVE [id number] [id number] 89 HIGH>GU=491 VE RY HIGH*Guidelines provided by the National Choles terol EducationProgra m Adult Treatment Panel III [id number] 08:33:00 Test Item Value Reference Range Interpretation Comments PHOSPHOROUS (test code = PHOS) 2.7 MG/DL 2.5-4.9 N [id number] 08:33:00 Test Item Value Reference Range Interpretation Comments MAGNESIUM (test code = MAG) 2.20 mg/dL 1.8-2.4 N URINALYSIS [id number] 06:49:00 Test Item Value Reference Range Interpretation Comments UA COLOR (test code = COLU) YELLOW YEL/STRAW UA APPEARANCE (test code = CLEAR CLEAR APPU) UA GLUCOSE DIPSTICK (test code NEGATIVE NEGATIVE = DGLUU) UA BILIRUBIN DIPSTICK (test NEGATIVE NEGATIVE code = BILU) UA KETONE DIPSTICK (test code NEGATIVE NEGATIVE = KETU) UA SPECIFIC GRAVITY (test code 1.033 1.005-1.030 H = SGU) UA BLOOD DIPSTICK (test code = NEGATIVE NEGATIVE DALILA) UA PH DIPSTICK (test code = 6.0 5.0-7.0 N SURINDER) UA PROTEIN DIPSTICK (test code NEGATIVE NEGATIVE = PROU) UA UROBILINIOGEN DIPSTICK 0.2 mg/dL 0.2-1.0 (test code = URO) UA NITRITE DIPSTICK (test code NEGATIVE NEGATIVE = CARLOTTA) UA LEUKOCYTE ESTERASE DIPSTICK NEGATIVE NEGATIVE (test code = LEUU) UA RBC (test code = RBCU) 0-3 RBC/HPF 0-3 UA WBC NO REFLEX (test code = 0-3 WBC/HPF 0-3 WBCUCL) UA BACTERIA (test code = BACU) NONE SEEN /HPF NONE SEEN UA SQUAMOUS CELLS (test code = NONE SEEN /HPF NONE SEEN SQU) UA MUCUS (test code = MUCU) TRACE /LPF NONE SEEN [id number] 00:38:00 Test Item Value Reference Range Interpretation Comments TROPONIN-I < 0.015 ng/mL 0.000-0.045 N Negative: <= (test code = 0.045 Positive: TROPI) >= 0.046 Correl ation with serial results, other cardiac markers andclinical findings is nec essary to determine the clinicalsignifi cance of this result. Results using different metho dologies should not be c omparedto one another as bindu titative results may nicky y by method. COMMENTS: 3 troponins total (including troponin done in ED)HGB [id number] 00:23:00 Test Item Value Reference Range Interpretation Comments HEMOGLOBIN (test code = HGB) 7.9 g/dL 12.5-16.9 L HEMATOCRIT (test code = HCT) 28.0 % 37.5-50.7 L TSH REFLEX TO [id number] 20:47:00 Test Item Value Reference Range Interpretation Comments TSH REFLEX TO FT4 (test code = 1.23 IU/mL 0.42-5.47 N TSHREFLEX) [id number] 20:47:00 Test Item Value Reference Range Interpretation Comments TROPONIN-I < 0.015 ng/mL 0.000-0.045 N Negative: <= (test code = 0.045 Positive: TROPI) >= 0.046 Correl ation with serial results, other cardiac markers andclinical findings is nec essary to determine the clinicalsignifi cance of this result. Results using different metho dologies should not be c omparedto one another as bindu titative results may nicky y by method. TSH REFLEX TO [id number] 20:46:00 Test Item Value Reference Range Interpretation Comments TSH REFLEX TO FT4 (test code = IU/mL 0.42-5.47 TSHREFLEX) [id number] 20:46:00 Test Item Value Reference Range Interpretation Comments TROPONIN-I < 0.015 ng/mL 0.000-0.045 N Negative: <= (test code = 0.045 Positive: TROPI) >= 0.046 Correl ation with serial results, other cardiac markers andclinical findings is nec essary to determine the clinicalsignifi cance of this result. Results using different metho dologies should not be c omparedto one another as bindu titative results may nicky y by method. HGB [id number] 20:26:00 Test Item Value Reference Range Interpretation Comments HEMOGLOBIN (test code = HGB) 8.3 g/dL 12.5-16.9 L HEMATOCRIT (test code = HCT) 29.5 % 37.5-50.7 L - CTA CHEST FOR [id number] 19:15:00 Name: GERMÁN EUBANKS [facility] : 1970 Age/S: 49 / M [address] [place] [address] Unit #: [id number] Loc: [facility] [id number] Phys: TajEdilberto Acct: [id number] Dis Date: Status: ADM IN PHONE #: [phone] Exam Date: 09/20/2019 1831 FAX #: [phone] Reason: chest pain; SOb; factor V leiden mutation EXAMS: CPTCODE: [id number] [place] [id number] Clinical Indication: chest pain; SOB; factor V Leiden mutation; Comparison: CTA chest 08/30/2018 TECHNIQUE: Multi-detector CTA imaging of the chest is performed. Coronal and sagittal as well as 3D Maximum Intensity Projected MIP reconstructions were obtained. 100 cc IV Isovue contrast used. CT DLP 405mg-cm. FINDINGS: CT: There are no lung nodules, interstitial lung disease, pleural effusions or pneumothorax. The central airway is normal. There is no mediastinal lymphadenopathy. Thoracic osseous structures are unremarkable. The upper abdominal images demonstrate cholecystectomy and left nonobstructive nephrolithiasis. CTA: The heart is within normal limits forsize without pericardial effusion. Mild coronary calcification is present. The tip of the right-sided Port-A-Cath is in the right atrium. Pulmonary arteries are unremarkablewithout evidence for proximal segmental or larger pulmonary embolus. The thoracic aorta is within normal limits without aneurysm or dissection. The great vessels and superior vena cava are normal. IMPRESSION: 1. No evidence for pulmonary embolus 2. No acute CT findings. 3. Cholecystectomy. 4. Left nonobstructive nephrolithiasis. SL: ARMEN PAGE 1 Signed Report (CONTINUED) Name: GERMÁN EUBANKS [facility] : 1970 Age/S: 49 / M [address] [place] [address] Unit #: [id number] Loc: [place] [address] Phys: Edilberto Vang DO Acct: [id number] Dis Date: Status: ADM IN PHONE #: [phone] Exam Date: 09/20/2019 183 FAX #: [phone] Reason: chest pain; SOb; factor V leiden mutation EXAMS: CPT CODE: [id number] [place] [id number] <Continued> Electronically Signed by Ana Nichols on 08/2019 at 1915 Reported and signed by: Mikey Nichols M.D. CC: Edilberto Vang DO Technologist:RT Tania(R) CTDI: DLP: Trnscb Date/Time: 09/20/2019 (1914) tNORMAV OrigNicanor D/T: S: 09/20/2019 (1918) PAGE 2 Signed ReportLACTIC ACID [id number] 17:48:00 Test Item Value Reference Range Interpretation Comments LACTIC ACID POC 0.6 MMOL/L 0.90-1.70 L Performed by certified (test code = LACTP) receptionist telephone operator at [facility] HEPATIC FUNCTION [id number] 17:34:00 Test Item Value Reference Range Interpretation Comments TOTAL PROTEIN (test code = PROT) 8.2 g/dL 6.4-8.2 N ALBUMIN (test code = ALB) 4.20 g/dL 3.4-5.0 N BILIRUBIN TOTAL (test code = 0.3 MG/DL <1.5 N BILT) BILIRUBIN DIRECT (test code = 0.10 MG/DL 0.0-0.30 N BILD) BILIRUBIN INDIRECT (test code = 0.20 MG/DL BILIND) SGOT/AST (test code = AST) 15 IUnit/L 15-37 N SGPT/ALT (test code = ALT) 17 IUnit/L 15-65 N ALKALINE PHOSPHATASE TOTAL (test 102 IUnit/L 20-125 N code = ALKP) PROTHROMBIN [id number] 17:29:00 Test Item Value Reference Range Interpretation Comments PROTHROMBIN TIME 12.5 SECONDS 9.3-12.9 N PATIENT (test code = PTP) INTERNATIONAL NORMAL 1.1 0.8-1.2 N TARGET RATIO (test code = INR BY IN DICATION INR) Indication INR1. Prophyl axis of venous thrombos is 2.0 - 3. 0 (orthopedic minesh graham), Prophylaxis of venous thrombos is (other than hig h-risk surgery), Court tment of Deep Vein Thrombosis/Pulm onary Embolism, Preve ntion of systemic emb olism - Tissue heart va lves, Acute Myocardia l Infarction (to prevent systemic embo lism), Valvular heart disease, Atri al Fibrillation, Bileaflet mecha nical valve in aortic position.2. Mec hanical prosthetic valv es (high risk), 2.5 - 3.5 Presence of Lupus Anticoagu lant or Antiphospholi pid Antibodies, Pre vention of systemic e mbolism - Acute Myocard ial Infarction (t o prevent recurre nt infarct). BASIC METABOLIC [id number] 17:08:00 Test Item Value Reference Range Interpretation Comments SODIUM (test code = NA) 139 mEq/L 134-147 N POTASSIUM (test code = 3.8 mEq/L 3.4-5.0 N K) CHLORIDE (test code = 108 mEq/L 100-108 N CL) CARBON DIOXIDE (test 22 mEq/L 21-33 N code = CO2) ANION GAP (test code = 13 0-20 N GAP) GLUCOSE (test code = 101 mg/dL 70-110 N GLU) BLOOD UREA NITROGEN 16 mg/dL 7-18 N (test code = BUN) GLOMERULAR FILTRATION 103.2 95-105 N Units of measure = RATE (test code = GFR) ml/mi n/1.73 m2 CREATININE (test code = 0.8 mg/dL 0.6-1.3 N CREAT) CALCIUM (test code = 8.9 mg/dL 8.0-10.5 N CA) - XR CHEST 1 [id number] 17:06:00 FAX: Cody Edilberto Vang DO [phone] [place]: REG Name: GERMÁN EUBANKS [facility] : 1970 Age/S: 49/M [address] [place] [address] Unit#: [id number] Loc: [facility] [place] [address] Phys: Edilberto Vang DO Acct: [id number] Dis Date: Status: REG ER PHONE #: [phone] Exam Date: 09/20/2019 170 FAX #: [phone] Reason: Chest Pain EXAMS: CPT CODE: [id number] XR CHEST 1 V 05278 1 view chest portable: HISTORY: Chest pain. FINDINGS: The lungs are clear. The heart and mediastinal contours stable from 12/10/2018. Right chest port is well-positioned with tip at cavoatrial junction. No pneumothorax. IMPRESSION: No acute finding SL: [id number] at 4029 Reported and signed by: Saad Mcnamara M.D. CC: Edilberto Vang DO Technologist: Haleigh Mahoney, RT(R); Kelly Rosenbaum RT(R) Trnscrd Date/Time/By: 09/20/2019 (2110) : By: Shazia Orig Print D/T: S: 09/20/2019 (4455) PAGE 1 Signed ReportBASIC METABOLIC [id number] 17:02:00 Test Item Value Reference Range Interpretation Comments SODIUM (test code = NA) 139 mEq/L 134-147 N POTASSIUM (test code = K) 3.8 mEq/L 3.4-5.0 N CHLORIDE (test code = CL) 108 mEq/L 100-108 N CARBON DIOXIDE (test code = CO2) 22 mEq/L 21-33 N ANION GAP (test code = GAP) 13 0-20 N GLUCOSE (test code = GLU) 101 mg/dL 70-110 N BLOOD UREA NITROGEN (test code = 16 mg/dL 7-18 N BUN) GLOMERULAR FILTRATION RATE (test 95-105 code = GFR) CREATININE (test code = CREAT) mg/dL 0.6-1.3 CALCIUM (test code = CA) 8.9 mg/dL 8.0-10.5 N TROPONIN-I [id number] 17:00:00 Test Item Value Reference Range Interpretation Comments TROPONIN-I RAPID 0.00 ng/mL 0.00-0.08 N Performed b y certified (test code = receptionist telephone operator at [facility] Negative: <= 0.0 8 Positive: >= 0.09An elevated troponin value alone is not sufficient todi agnose a myocardial infa rction. Rather, the pat ient sclinical prese ntation (history, physi magdaleno exam) and ECGshould b e used in conjunction wit h troponin in thediagnosti c evaluation of s uspected myocardial infa rction. Aserial samplin g protocol is recommended to facilitate the identification of temporal changes in trop onin levels characteristic of [place]. CBC W/AUTO [id number] 16:57:00 Test Item Value Reference Range Interpretation Comments WHITE BLOOD CELL (test code = 9.44 x10 3/uL 4.5-11.0 N WBC) RED BLOOD CELL (test code = 4.30 x10 6/uL 4.00-5.60 N RBC) HEMOGLOBIN (test code = HGB) 9.0 g/dL 12.5-16.9 L HEMATOCRIT (test code = HCT) 32.2 % 37.5-50.7 L MEAN CELL VOLUME (test code = 74.9 fL 81.0-99.0 L MCV) MEAN CELL HGB (test code = MCH) 20.9 pg 27.0-33.0 L MEAN CELL HGB CONCETRATION 28.0 g/dL 33.0-37.0 L (test code = MCHC) RED CELL DISTRIBUTION WIDTH CV 19.2 % 11.5-14.5 H (test code = RDW) RED CELL DISTRIBUTION WIDTH SD 51.8 fL 37.0-54.0 N (test code = RDW-SD) PLATELET COUNT (test code = 377 x10 3/uL 150-400 N PLT) MEAN PLATELET VOLUME (test code 9.1 fL 7.0-9.0 H = MPV) NEUTROPHIL % (test code = NT%) 59.8 % 56.0-77.0 N IMMATURE GRANULOCYTE % (test 0.3 % 0.0-2.0 N code = IG%) LYMPHOCYTE % (test code = LY%) 28.2 % 14.0-32.0 N MONOCYTE % (test code = MO%) 10.7 % 4.8-9.0 H EOSINOPHIL % (test code = EO%) 0.6 % 0.3-3.7 N BASOPHIL % (test code = BA%) 0.4 % 0.0-2.0 N NUCLEATED RBC % (test code = 0.0 % 0-0 N NRBC%) NEUTROPHIL # (test code = NT#) 5.64 x10 3/uL 2.0-7.6 N IMMATURE GRANULOCYTE # (test 0.03 x10 3/uL 0.00-0.03 N code = IG#) LYMPHOCYTE # (test code = LY#) 2.66 x10 3/uL 1.0-3.8 N MONOCYTE # (test code = MO#) 1.01 x10 3/uL 0.1-0.8 H EOSINOPHIL # (test code = EO#) 0.06 x10 3/uL 0.0-0.2 N BASOPHIL # (test code = BA#) 0.04 x10 3/uL 0.0-0.2 N NUCLEATED RBC # (test code = 0.00 x10 3/uL 0.0-0.1 N NRBC#) MANUAL DIFF REQUIRED (test code NO = MDIFF) Prothrombin time (PT) in platelet poor [id number] 06:50:00 Test Item Value Reference Range Interpretation Comments Prothrombin Time (test code = 5902-2) 11.6 [facility] plasma by Coagulation assay 2019-08-04 06:50:00 Test Item Value Reference Range Interpretation Comments Prothromb Time International Ratio 1.0 (test code = 6301-6) [facility] thromb[facility] (PTT) in platelet poor [id number] 06:50:00 Test Item Value Reference Range Interpretation Comments Activated Partial Thromboplast Time 34.6 (test code = 74907-8) [facility] leukocyte count (number/volume) 2019-08-03 03:00:00 Test Item Value Reference Range Interpretation Comments White Blood Count (test code = 6690-2) 6.8 [facility] automated count (number/volume) 2019-08-03 03:00:00 Test Item Value Reference Range Interpretation Comments Red Blood Count (test code = 789-8) 3.52 [facility] (mass/volume) 2019-08-03 03:00:00 Test Item Value Reference Range Interpretation Comments Hemoglobin (test code = 718-7) 8.7 [facility] hematocrit (volume fraction) 2019-08-03 03:00:00 Test Item Value Reference Range Interpretation Comments Hematocrit (test code = 4544-3) 26.7 [facility] mean corpuscular volume (MCV) [id number] 03:00:00 Test Item Value Reference Range Interpretation Comments Mean Corpuscular Volume (test code = 75.7 787-2) [facility] mean corpuscular hemoglobin (mass per erythrocyte)2019-08-03 03:00:00 Test Item Value Reference Range Interpretation Comments Mean Corpuscular Hemoglobin (test code 24.6 = 785-6) [facility] mean corpuscular hemoglobin concentration (MCHC) measurement ([id number] 03:00:00 Test Item Value Reference Range Interpretation Comments Mean Corpuscular Hemoglobin Concent 32.5 (test code = 786-4) [facility] eryth[facility] distribution width ratio 2019-08-03 03:00:00 Test Item Value Reference Range Interpretation Comments Red Cell Distribution Width (test code 22.3 = 788-0) [facility] platelet count (count/volume) 2019-08-03 03:00:00 Test Item Value Reference Range Interpretation Comments Platelet Count (test code = 777-3) 330 [facility] blood platelet mean volume measurement 2019-08-03 03:00:00 Test Item Value Reference Range Interpretation Comments Mean Platelet Volume (test code = 6.8 89523-2) [facility] blood neutrophil count as percentage of total [id number] 03:00:00 Test Item Value Reference Range Interpretation Comments Neutrophils (%) (Auto) (test code = 48.3 770-8) [facility] lymphocyte count as percentage of total [id number] 03:00:00 Test Item Value Reference Range Interpretation Comments Lymphocytes (%) (Auto) (test code = 28.6 736-9) [facility] blood monocyte count as percentage of total [id number] 03:00:00 Test Item Value Reference Range Interpretation Comments Monocytes (%) (Auto) (test code = 14.1 5905-5) [facility] blood eosinophil count as percentage of total [id number] 03:00:00 Test Item Value Reference Range Interpretation Comments Eosinophils (%) (Auto) (test code = 8.5 713-8) [facility] blood basophil count as percentage of total lehbvhzkve1965-09-28 03:00:00 Test Item Value Reference Range Interpretation Comments Basophils (%) (Auto) (test code = 0.5 706-2) [facility] blood neutrophil count (number/volume) 2019-08-03 03:00:00 Test Item Value Reference Range Interpretation Comments Neutrophils # (Auto) (test code = 3.30 751-8) [facility] lymphocyte count (number/volume) 2019-08-03 03:00:00 Test Item Value Reference Range Interpretation Comments Lymphocytes # (Auto) (test code = 2.00 731-0) [facility] blood monocyte count (number/volume) 2019-08-03 03:00:00 Test Item Value Reference Range Interpretation Comments Monocytes # (Auto) (test code = 742-7) 1.00 [facility] blood eosinophil [id number] 03:00:00 Test Item Value Reference Range Interpretation Comments Eosinophils # (Auto) (test code = 0.60 711-2) [facility] blood basophil count (number/volume) 2019-08-03 03:00:00 Test Item Value Reference Range Interpretation Comments Basophils # (Auto) (test code = 704-7) 0.00 [facility] HospitalService comment [id number] 03:00:00 Test Item Value Reference Range Interpretation Comments N/A (test code = 8264-4) Previously Reviewed [facility] plasma sodium measurement (moles/volume) 2019-08-03 03:00:00 Test Item Value Reference Range Interpretation Comments Sodium Level (test code = 2951-2) [address] [facility] [facility]rum or plasma potassium measurement (moles/volume)2019-08-03 03:00:00 Test Item Value Reference Range Interpretation Comments Potassium Level (test code = 2823-3) 3.[address] [facility] or plasma chloride measurement (moles/volume) 2019-08-03 03:00:00 Test Item Value Reference Range Interpretation Comments Chloride Level (test code = 2075-0) [address] [facility] or plasma total carbon dioxide measurement (moles/volume)2019-08-03 03:00:00 Test Item Value Reference Range Interpretation Comments Carbon Dioxide Level (test code = 28 8-9) [facility] or plasma urea nitrogen measurement (mass/volume)2019-08-03 03:00:00 Test Item Value Reference Range Interpretation Comments Blood Urea Nitrogen (test code = 14 3094-0) [facility] or plasma creatinine measurement (mass/volume)2019-08-03 03:00:00 Test Item Value Reference Range Interpretation Comments Creatinine (test code = 2160-0) 0.8 [facility]oGlomerular filtration rate (GFR) estimation/1.73 sq m using creatinine measurement with MDRD equation in black [id number] 03:00:00 Test Item Value Reference Range Interpretation Comments Estimated GFR () (test >60 code = 99902-3) [facility] HospitalEGFR non- [id number] 03:00:00 Test Item Value Reference Range Interpretation Comments Estimated GFR (Non- >60 (test code = 41664-6) [facility] or plasma glucose measurement (mass/volume) 2019-08-03 03:00:00 Test Item Value Reference Range Interpretation Comments Glucose Level (test code = 2345-7) [address] [facility]rum or plasma calcium measurement (mass/volume) 2019-08-03 03:00:00 Test Item Value Reference Range Interpretation Comments Calcium Level (test code = 23527-1) 8.[address] [facility] total bilirubin measurement (mass/volume)2019-08-03 03:00:00 Test Item Value Reference Range Interpretation Comments Total Bilirubin (test code = 1975-2) 0.[address] [facility] aspartate aminotransferase measurement (enzymatic activity/volume)2019-08-03 03:00:00 Test Item Value Reference Range Interpretation Comments Aspartate Amino Transf (AST/SGOT) (test 14 code = 1920-8) [facility] alanine aminotransferase measurement (enzymatic activity/volume)2019-08-03 03:00:00 Test Item Value Reference Range Interpretation Comments Alanine Aminotransferase (ALT/SGPT) 10 (test code = 1742-6) [facility] [facility] or plasma protein measurement (mass/volume) 2019-08-03 03:00:00 Test Item Value Reference Range Interpretation Comments Total Protein (test code = 2885-2) 6.[address] [facility] albumin measurement (mass/volume) 2019-08-03 03:00:00 Test Item Value Reference Range Interpretation Comments Albumin (test code = 1751-7) 3.[address] [facility] alkaline phosphatase measurement (enzymatic activity/volume)2019-08-03 03:00:00 Test Item Value Reference Range Interpretation Comments Alkaline Phosphatase (test code = 76 6768-6) [facility] platelets count by estimate (number/volume) 2019-08-01 23:35:00 Test Item Value Reference Range Interpretation Comments Platelet Estimate (test code = Adequate 73570-2) [facility] erythrocyte morphology finding identification 2019-08-01 23:35:00 Test Item Value Reference Range Interpretation Comments Red Blood Cell Morphology (test code Abnormal = 6742-1) [facility] anisocytosis detection by light microscopy 2019-08-01 23:35:00 Test Item Value Reference Range Interpretation Comments Anisocytosis (test code = 702-1) 2+ [facility] microcytes detection by light microscopy 2019-08-01 23:35:00 Test Item Value Reference Range Interpretation Comments Microcytosis (test code = 741-9) 1+ [facility] polychromasia detection by light microscopy 2019-08-01 23:35:00 Test Item Value Reference Range Interpretation Comments Polychromasia (test code = 19932-4) 1+ [facility] blood leukocyte morphology finding [id number] 23:35:00 Test Item Value Reference Range Interpretation Comments White Blood Cell Morphology (test code Normal = 47942-4) [facility] cardiac troponin I measurement (mass/volume)2019-08-01 23:35:00 Test Item Value Reference Range Interpretation Comments Troponin I (test code = 20719-1) < 0.03 [facility] W/PLT COUNT & AUTO [id number] 05:27:00 Test Item Value Reference Range Interpretation Comments WHITE BLOOD CELL COUNT 7.0 K/ L 4.0-10.0 (BEAKER) (test code = 775) RED BLOOD CELL COUNT 3.37 M/ L 4.20-5.80 L (BEAKER) (test code = 761) HEMOGLOBIN (BEAKER) 8.1 GM/DL 13.0-16.8 L (test code = 410) HEMATOCRIT (BEAKER) 27.2 % 36.0-50.0 L (test code = 411) MEAN CORPUSCULAR VOLUME 80.7 fL 82.0-99.0 L (BEAKER) (test code = 753) MEAN CORPUSCULAR 24.0 pg 27.0-33.0 L HEMOGLOBIN (BEAKER) (test code = 751) MEAN CORPUSCULAR 29.8 GM/DL 32.0-36.0 L HEMOGLOBIN CONC (BEAKER) (test code = 752) RED CELL DISTRIBUTION 18.1 % 12.0-15.0 H WIDTH (BEAKER) (test code = 412) PLATELET COUNT (BEAKER) 334 K/CU MM 150-430 (test code = 756) MEAN PLATELET VOLUME 9.0 fL 6.0-11.5 MPV-Antonia roximately (BEAKER) (test code = 20% po sitive bias 754) due to method change. NUCLEATED RED BLOOD 0 /100 WBC 0-0 CELLS (BEAKER) (test code = 413) NEUTROPHILS RELATIVE 41 % PERCENT (BEAKER) (test code = 429) LYMPHOCYTES RELATIVE 33 % PERCENT (BEAKER) (test code = 430) MONOCYTES RELATIVE 16 % PERCENT (BEAKER) (test code = 431) EOSINOPHILS RELATIVE 9 % PERCENT (BEAKER) (test code = 432) BASOPHILS RELATIVE 0 % PERCENT (BEAKER) (test code = 437) NEUTROPHILS ABSOLUTE 2.86 K/ L 1.80-8.00 COUNT (BEAKER) (test code = 670) LYMPHOCYTES ABSOLUTE 2.30 K/ L 1.48-4.50 COUNT (BEAKER) (test code = 414) MONOCYTES ABSOLUTE 1.15 K/ L 0.00-1.30 COUNT (BEAKER) (test code = 415) EOSINOPHILS ABSOLUTE 0.65 K/ L 0.00-0.50 H COUNT (BEAKER) (test code = 416) BASOPHILS ABSOLUTE 0.03 K/ L 0.00-0.20 COUNT (BEAKER) (test code = 417) IMMATURE 0 % 0-0 GRANULOCYTES-RELATIVE PERCENT (BEAKER) (test code = 2801) [id number] 08:29:00 Test Item Value Reference Range Interpretation Comments PARTIAL THROMBOPLASTIN TIME 75.5 seconds 23.2-36.1 H (BEAKER) (test code = 760) IRON, TIBC, % SAT. (WITHOUT FERRITIN)2019-06-19 06:56:00 Test Item Value Reference Range Interpretation Comments IRON (BEAKER) (test code = 547) 22.0 ug/dL 35.0-175.0 L TOTAL IRON BINDING CAPACITY 460 ug/dL 250-550 (BEAKER) (test code = 769) IRON % SATURATION (2) (BEAKER) 5 % 20-55 L (test code = 2590) [id number] 06:51:00 Test Item Value Reference Range Interpretation Comments PARTIAL THROMBOPLASTIN TIME 119.3 seconds 23.2-36.1 H (BEAKER) (test code = 760) CBC W/PLT COUNT & AUTO [id number] 06:34:00 Test Item Value Reference Range Interpretation Comments WHITE BLOOD CELL COUNT 6.4 K/ L 4.0-10.0 (BEAKER) (test code = 775) RED BLOOD CELL COUNT 3.37 M/ L 4.20-5.80 L (BEAKER) (test code = 761) HEMOGLOBIN (BEAKER) 8.0 GM/DL 13.0-16.8 L (test code = 410) HEMATOCRIT (BEAKER) 27.4 % 36.0-50.0 L (test code = 411) MEAN CORPUSCULAR VOLUME 81.3 fL 82.0-99.0 L (BEAKER) (test code = 753) MEAN CORPUSCULAR 23.7 pg 27.0-33.0 L HEMOGLOBIN (BEAKER) (test code = 751) MEAN CORPUSCULAR 29.2 GM/DL 32.0-36.0 L HEMOGLOBIN CONC (BEAKER) (test code = 752) RED CELL DISTRIBUTION 18.1 % 12.0-15.0 H WIDTH (BEAKER) (test code = 412) PLATELET COUNT (BEAKER) 324 K/CU MM 150-430 (test code = 756) MEAN PLATELET VOLUME 9.2 fL 6.0-11.5 MPV-Antonia roximately (BEAKER) (test code = 20% po sitive bias 754) due to method change. NUCLEATED RED BLOOD 0 /100 WBC 0-0 CELLS (BEAKER) (test code = 413) NEUTROPHILS RELATIVE 37 % PERCENT (BEAKER) (test code = 429) LYMPHOCYTES RELATIVE 39 % PERCENT (BEAKER) (test code = 430) MONOCYTES RELATIVE 15 % PERCENT (BEAKER) (test code = 431) EOSINOPHILS RELATIVE 10 % PERCENT (BEAKER) (test code = 432) BASOPHILS RELATIVE 0 % PERCENT (BEAKER) (test code = 437) NEUTROPHILS ABSOLUTE 2.36 K/ L 1.80-8.00 COUNT (BEAKER) (test code = 670) LYMPHOCYTES ABSOLUTE 2.49 K/ L 1.48-4.50 COUNT (BEAKER) (test code = 414) MONOCYTES ABSOLUTE 0.93 K/ L 0.00-1.30 COUNT (BEAKER) (test code = 415) EOSINOPHILS ABSOLUTE 0.63 K/ L 0.00-0.50 H COUNT (BEAKER) (test code = 416) BASOPHILS ABSOLUTE 0.01 K/ L 0.00-0.20 COUNT (BEAKER) (test code = 417) IMMATURE 0 % 0-0 GRANULOCYTES-RELATIVE PERCENT (BEAKER) (test code = 2801) [id number] 00:47:00 Test Item Value Reference Range Interpretation Comments PARTIAL THROMBOPLASTIN TIME 110.8 seconds 23.2-36.1 H (BEAKER) (test code = 760) [id number] 18:18:00 Test Item Value Reference Range Interpretation Comments PARTIAL THROMBOPLASTIN TIME 109.3 seconds 23.2-36.1 H (BEAKER) (test code = 760) [id number] 16:53:00 Test Item Value Reference Range Interpretation Comments PARTIAL THROMBOPLASTIN TIME 152.0 seconds 23.2-36.1 HH (BEAKER) (test code = 760) [id number] 10:01:00 Test Item Value Reference Range Interpretation Comments PARTIAL THROMBOPLASTIN TIME 38.4 seconds 23.2-36.1 H (BEAKER) (test code = 760) [id number] 08:14:00 Test Item Value Reference Range Interpretation Comments PARTIAL THROMBOPLASTIN TIME 123.3 seconds 23.2-36.1 H (BEAKER) (test code = 760) [id number] 06:41:00 Test Item Value Reference Range Interpretation Comments PARTIAL THROMBOPLASTIN TIME > seconds 23.2-36.1 HH (BEAKER) (test code = 760) CBC W/PLT COUNT & AUTO [id number] 06:34:00 Test Item Value Reference Range Interpretation Comments WHITE BLOOD CELL COUNT 8.8 K/ L 4.0-10.0 (BEAKER) (test code = 775) RED BLOOD CELL COUNT 3.79 M/ L 4.20-5.80 L (BEAKER) (test code = 761) HEMOGLOBIN (BEAKER) 9.0 GM/DL 13.0-16.8 L (test code = 410) HEMATOCRIT (BEAKER) 31.0 % 36.0-50.0 L (test code = 411) MEAN CORPUSCULAR VOLUME 81.8 fL 82.0-99.0 L (BEAKER) (test code = 753) MEAN CORPUSCULAR 23.7 pg 27.0-33.0 L HEMOGLOBIN (BEAKER) (test code = 751) MEAN CORPUSCULAR 29.0 GM/DL 32.0-36.0 L HEMOGLOBIN CONC (BEAKER) (test code = 752) RED CELL DISTRIBUTION 18.1 % 12.0-15.0 H WIDTH (BEAKER) (test code = 412) PLATELET COUNT (BEAKER) 379 K/CU MM 150-430 (test code = 756) MEAN PLATELET VOLUME 8.8 fL 6.0-11.5 MPV-Antonia roximately (BEAKER) (test code = 20% po sitive bias 754) due to method change. NUCLEATED RED BLOOD 0 /100 WBC 0-0 CELLS (BEAKER) (test code = 413) NEUTROPHILS RELATIVE 46 % PERCENT (BEAKER) (test code = 429) LYMPHOCYTES RELATIVE 35 % PERCENT (BEAKER) (test code = 430) MONOCYTES RELATIVE 13 % PERCENT (BEAKER) (test code = 431) EOSINOPHILS RELATIVE 6 % PERCENT (BEAKER) (test code = 432) BASOPHILS RELATIVE 0 % PERCENT (BEAKER) (test code = 437) NEUTROPHILS ABSOLUTE 4.05 K/ L 1.80-8.00 COUNT (BEAKER) (test code = 670) LYMPHOCYTES ABSOLUTE 3.04 K/ L 1.48-4.50 COUNT (BEAKER) (test code = 414) MONOCYTES ABSOLUTE 1.18 K/ L 0.00-1.30 COUNT (BEAKER) (test code = 415) EOSINOPHILS ABSOLUTE 0.50 K/ L 0.00-0.50 COUNT (BEAKER) (test code = 416) BASOPHILS ABSOLUTE 0.03 K/ L 0.00-0.20 COUNT (BEAKER) (test code = 417) IMMATURE 0 % 0-0 GRANULOCYTES-RELATIVE PERCENT (BEAKER) (test code = 2801) [id number] 23:21:00 Test Item Value Reference Range Interpretation Comments PARTIAL THROMBOPLASTIN TIME 41.1 seconds 23.2-36.1 H (BEAKER) (test code = 760) [id number] 21:57:00 Test Item Value Reference Range Interpretation Comments PARTIAL THROMBOPLASTIN TIME 130.6 seconds 23.2-36.1 H (BEAKER) (test code = 760) [id number] 20:34:00 Test Item Value Reference Range Interpretation Comments PARTIAL THROMBOPLASTIN TIME > seconds 23.2-36.1 HH (BEAKER) (test code = 760) [id number] 19:25:00 Test Item Value Reference Range Interpretation Comments PARTIAL THROMBOPLASTIN TIME > seconds 23.2-36.1 HH (BEAKER) (test code = 760) TROPONIN [id number] 15:27:00 Test Item Value Reference Range Interpretation Comments TROPONIN I (BEAKER) (test code = 0.01 ng/mL 0.00-0.15 397) Troponin I (TnI) levels must be interpreted [...] failure, acidosis, acute neurological disease, and persistent tachyarrhythmia.[id number] 09:57:00 Test Item Value Reference Range Interpretation Comments PARTIAL THROMBOPLASTIN TIME 30.2 seconds 23.2-36.1 (BEAKER) (test code = 760) Prior to initiating heparinTROPONIN [id number] 06:59:00 Test Item Value Reference Range Interpretation Comments TROPONIN I (BEAKER) (test code = 397) < ng/mL 0.00-0.15 Troponin I (TnI) levels [...] acidosis, acute neurological disease, and persistent tachyarrhythmia.LIPID [id number] 06:05:00 Test Item Value Reference Range Interpretation Comments TRIGLYCERIDES (BEAKER) (test code = 105 mg/dL 540) CHOLESTEROL (BEAKER) (test code = 218 mg/dL 631) HDL CHOLESTEROL (BEAKER) (test code 46 mg/dL = 976) LDL CHOLESTEROL CALCULATED (BEAKER) 151 mg/dL (test code = 633) Triglyceride Reference Range: Low Risk <150 Borderline 150-199 High Risk 200-499 Very High Risk >=500Cholesterol Reference Range: Low Risk <200 Borderline 200-239 High Risk >240HDL Cholesterol Reference Range: Low Risk >=60 High Risk <40LDL Cholesterol Reference Range: Optimal <100 Near Optimal 100-129 Borderline 130-159 High 160-189 Very High >=190URINALYSIS W/ REFLEX URINE [id number] 04:38:00 Test Item Value Reference Range Interpretation Comments COLOR (BEAKER) (test code = 470) Yellow CLARITY (BEAKER) (test code = 469) Clear SPECIFIC GRAVITY UA (BEAKER) (test 1.039 1.001-1.035 H code = 468) PH UA (BEAKER) (test code = 467) 6.0 5.0-8.0 PROTEIN UA (BEAKER) (test code = Negative Negative 464) GLUCOSE UA (BEAKER) (test code = Negative Negative 365) KETONES UA (BEAKER) (test code = Negative Negative 371) BILIRUBIN UA (BEAKER) (test code = Negative Negative 462) BLOOD UA (BEAKER) (test code = 461) Negative Negative NITRITE UA (BEAKER) (test code = Negative Negative 465) LEUKOCYTE ESTERASE UA (BEAKER) (test Negative Negative code = 466) UROBILINOGEN UA (BEAKER) (test code < mg/dL 0.2-1.0 = 463) RBC UA (BEAKER) (test code = 519) 0 /HPF WBC UA (BEAKER) (test code = 520) < /HPF MUCUS (BEAKER) (test code = 1574) Rare SOURCE(BEAKER) (test code = 2795) CT, CHEST WITH IV CONTRAST- PE TEST [id number] 04:17:00Reason for exam:- >CHEST PAINWhat is the patient's sedation requirement?->No SedationFINAL REPORT CLINICAL HISTORY: Chest pain, history of PE FINDINGS: Multiple axial images of the chest were performed after the uncomplicated administration of IV contrast, utilizing a pulmonary embolism protocol. Post-processing coronal reformats were created and interpreted.This exam was performed according to our departmental dose-optimization program, which includes automated exposure control, adjustment of the mA and/or kV according to patient size and/or use of the iterative reconstruction technique. Study quality:Adequate. Comparison: 02/18/2019 Pulmonary arteries: Pulmonary embolism in segmental and subsegmental branches in the right lower lobe, similar in positionto previous. Lung parenchyma: No significant findings. Pleural effusion: None. Pneumothorax: None. Tracheobronchial tree: No significant findings. Pulmonary vasculature: No significant findings. Cardiac contours and great vessels: Atherosclerotic coronary artery calcification. The left vertebral artery arises independently from the aortic arch between the left common carotid and left subclavian artery origins. Mediastinum: No significant findings. Lymph Nodes: No adenopathy in the mediastinum or mala. Skeleton: No acute abnormality. Other: Right IJ chest port Limited images of upper abdomen: No significant findings. IMPRESSION: Small volume of pulmonary embolus in the right lower lobe. Critical findings were relayed to Dr. Kalpan in the emergency room at 0415 hours on 06/17/2019. Signed: Alan Prado MDReport Verified Date/Time: 06/17/2019 04:17:04 Reading Location: [address] Reading Room TROPONIN I 2019-06-17 02:03:00 Test Item Value Reference Range Interpretation Comments TROPONIN I (BEAKER) (test code = 0.01 ng/mL 0.00-0.15 397) Troponin I (TnI) levels must be interpreted [...] disease, and persistent tachyarrhythmia.B-TYPE NATRIURETIC FACTOR (BNP) 2019-06-17 02:00:00 Test Item Value Reference Range Interpretation Comments B-TYPE NATRIURETIC PEPTIDE (BEAKER) 119 pg/mL 0-100 H (test code = 700) [id number] 01:55:00 Test Item Value Reference Range Interpretation Comments LIPASE (BEAKER) (test code = 749) 118 U/L 8-78 H BASIC METABOLIC [id number] 01:55:00 Test Item Value Reference Range Interpretation Comments SODIUM (BEAKER) 139 meq/L 135-148 (test code = 381) POTASSIUM (BEAKER) 3.5 meq/L 3.5-5.5 (test code = 379) CHLORIDE (BEAKER) 105 meq/L 98-106 (test code = 382) CO2 (BEAKER) (test 22 meq/L 20-31 code = 355) BLOOD UREA NITROGEN 15 mg/dL 10-26 (BEAKER) (test code = 354) CREATININE (BEAKER) 1.14 mg/dL 0.50-1.20 (test code = 358) GLUCOSE RANDOM 105 mg/dL 70-110 (BEAKER) (test code = 652) CALCIUM (BEAKER) 9.3 mg/dL 8.5-10.5 (test code = 697) EGFR (BEAKER) (test 69 mL/min/1.73 ESTIMA NEIL GFR IS code = 1092) sq m NOT ACCURATE CREATININE CLEARANCE IN PREDICTING GLOMERULAR FILTRATION RATE . ESTIMATED GFR I S NOT APPLICABLE FOR DIALYSIS PATIEN TS. HEPATIC FUNCTION [id number] 01:55:00 Test Item Value Reference Range Interpretation Comments TOTAL PROTEIN (BEAKER) (test code = 7.8 gm/dL 6.0-8.5 770) ALBUMIN (BEAKER) (test code = 1145) 4.3 g/dL 3.5-5.0 BILIRUBIN TOTAL (BEAKER) (test code 0.3 mg/dL 0.1-1.3 = 377) BILIRUBIN DIRECT (BEAKER) (test 0.1 mg/dL 0.0-0.5 code = 706) ALKALINE PHOSPHATASE (BEAKER) (test 111 U/L 30-115 code = 346) AST (SGOT) (BEAKER) (test code = 13 U/L 5-40 353) ALT (SGPT) (BEAKER) (test code = 8 U/L 6-50 347) [id number] 01:53:00 Test Item Value Reference Range Interpretation Comments PROTIME (BEAKER) (test code = 13.9 seconds 11.8-14.4 759) INR (BEAKER) (test code = 370) 1.1 1.2-1.5 L PARTIAL THROMBOPLASTIN TIME 108.7 seconds 23.2-36.1 H (BEAKER) (test code = 760) RECOMMENDED COUMADIN/WARFARIN INR THERAPY RANGESSTANDARD DOSE: 2.0 - 3.0 Includes: PROPHYLAXIS forvenous thrombosis, systemic embolization; TREATMENT for venous thrombosis and/or pulmonary embolus.HIGH RISK: Target INR is 2.5-3.5 for patients with mechanical heart valves.CBC W/PLT COUNT & AUTO DIFFERENTIAL 2019-06-17 01:39:00 Test Item Value Reference Range Interpretation Comments WHITE BLOOD CELL COUNT 10.2 K/ L 4.0-10.0 H (BEAKER) (test code = 775) RED BLOOD CELL COUNT 4.15 M/ L 4.20-5.80 L (BEAKER) (test code = 761) HEMOGLOBIN (BEAKER) 10.1 GM/DL 13.0-16.8 L (test code = 410) HEMATOCRIT (BEAKER) 32.9 % 36.0-50.0 L (test code = 411) MEAN CORPUSCULAR VOLUME 79.3 fL 82.0-99.0 L (BEAKER) (test code = 753) MEAN CORPUSCULAR 24.3 pg 27.0-33.0 L HEMOGLOBIN (BEAKER) (test code = 751) MEAN CORPUSCULAR 30.7 GM/DL 32.0-36.0 L HEMOGLOBIN CONC (BEAKER) (test code = 752) RED CELL DISTRIBUTION 17.8 % 12.0-15.0 H WIDTH (BEAKER) (test code = 412) PLATELET COUNT (BEAKER) 406 K/CU MM 150-430 (test code = 756) MEAN PLATELET VOLUME 9.1 fL 6.0-11.5 MPV-Antonia roximately (BEAKER) (test code = 20% po sitive bias 754) due to method change. NUCLEATED RED BLOOD 0 /100 WBC 0-0 CELLS (BEAKER) (test code = 413) NEUTROPHILS RELATIVE 69 % PERCENT (BEAKER) (test code = 429) LYMPHOCYTES RELATIVE 20 % PERCENT (BEAKER) (test code = 430) MONOCYTES RELATIVE 10 % PERCENT (BEAKER) (test code = 431) EOSINOPHILS RELATIVE 1 % PERCENT (BEAKER) (test code = 432) BASOPHILS RELATIVE 0 % PERCENT (BEAKER) (test code = 437) NEUTROPHILS ABSOLUTE 7.01 K/ L 1.80-8.00 COUNT (BEAKER) (test code = 670) LYMPHOCYTES ABSOLUTE 2.00 K/ L 1.48-4.50 COUNT (BEAKER) (test code = 414) MONOCYTES ABSOLUTE 1.05 K/ L 0.00-1.30 COUNT (BEAKER) (test code = 415) EOSINOPHILS ABSOLUTE 0.08 K/ L 0.00-0.50 COUNT (BEAKER) (test code = 416) BASOPHILS ABSOLUTE 0.03 K/ L 0.00-0.20 COUNT (BEAKER) (test code = 417) IMMATURE 0 % 0-0 GRANULOCYTES-RELATIVE PERCENT (BEAKER) (test code = 2801) RAD, CHEST, 1 VIEW, NON [id number] 00:53:00Reason for exam:->chest painShould this be performed at the bedside?->YesFINAL REPORT Chest one view. Clinical history: chest pain Comparison: Chest r adiograph 09/02/2018. Technique: A single frontal view of the chest was obtained. Findings:There loree right IJ Port-A-Cath with tip in the distal SVC.The heart is normal size. The aorta is uncoiled. There is no focal pulmonary consolidation, pleural effusion or pneumothorax. There is no pulmonary edema. The bony thorax is demineralized but otherwise unremarkable. Impression: No focal pulmonary consolidation or pneumothorax. Signed: Dennis Cevallos MDReport Verified Date/Time: 06/17/2019 00:53:32 UA [id number] 01:04:00 Test Item Value Reference Range Interpretation Comments TROPONIN I (BEAKER) (test code = 397) < ng/mL 0.00-0.15 Troponin I (TnI) levels [...] failure, acidosis, acute neurological disease, and persistent tachyarrhythmia.COMPREHENSIVE METABOLIC [id number] 00:58:00 Test Item Value Reference Range Interpretation Comments TOTAL PROTEIN 7.1 gm/dL 6.0-8.5 (BEAKER) (test code = 770) ALBUMIN (BEAKER) 4.1 g/dL 3.5-5.0 (test code = 1145) ALKALINE PHOSPHATASE 87 U/L 30-115 (BEAKER) (test code = 346) BILIRUBIN TOTAL 0.3 mg/dL 0.1-1.3 (BEAKER) (test code = 377) SODIUM (BEAKER) (test 140 meq/L 135-148 code = 381) POTASSIUM (BEAKER) 3.8 meq/L 3.5-5.5 (test code = 379) CHLORIDE (BEAKER) 105 meq/L 98-106 (test code = 382) CO2 (BEAKER) (test 27 meq/L 20-31 code = 355) BLOOD UREA NITROGEN 11 mg/dL 10-26 (BEAKER) (test code = 354) CREATININE (BEAKER) 1.10 mg/dL 0.50-1.20 (test code = 358) GLUCOSE RANDOM 115 mg/dL 70-110 H (BEAKER) (test code = 652) CALCIUM (BEAKER) 9.1 mg/dL 8.5-10.5 (test code = 697) AST (SGOT) (BEAKER) 14 U/L 5-40 (test code = 353) ALT (SGPT) (BEAKER) 13 U/L 6-50 (test code = 347) EGFR (BEAKER) (test 71 mL/min/1.73 ESTIMA NEIL GFR IS code = 1092) sq m NOT ACCURATE CREATININE CLEARANCE IN PREDICTING GLOMERULAR FILTRATION RATE . ESTIMATED GFR I S NOT APPLICABLE FOR DIALYSIS PATIEN TS. [id number] 00:26:00 Test Item Value Reference Range Interpretation Comments PARTIAL THROMBOPLASTIN TIME 28.7 seconds 23.2-36.1 (BEAKER) (test code = 760) 6 hours after starting heparin infusion and as indicated per sliding scaleCBC W/PLT COUNT & AUTO [id number] 00:23:00 Test Item Value Reference Range Interpretation Comments WHITE BLOOD CELL COUNT 11.9 K/ L 4.0-10.0 H (BEAKER) (test code = 775) RED BLOOD CELL COUNT 3.48 M/ L 4.20-5.80 L (BEAKER) (test code = 761) HEMOGLOBIN (BEAKER) 9.1 GM/DL 13.0-16.8 L (test code = 410) HEMATOCRIT (BEAKER) 29.5 % 36.0-50.0 L (test code = 411) MEAN CORPUSCULAR VOLUME 84.8 fL 82.0-99.0 (BEAKER) (test code = 753) MEAN CORPUSCULAR 26.1 pg 27.0-33.0 L HEMOGLOBIN (BEAKER) (test code = 751) MEAN CORPUSCULAR 30.8 GM/DL 32.0-36.0 L HEMOGLOBIN CONC (BEAKER) (test code = 752) RED CELL DISTRIBUTION 20.6 % 12.0-15.0 H WIDTH (BEAKER) (test code = 412) PLATELET COUNT (BEAKER) 291 K/CU MM 150-430 (test code = 756) MEAN PLATELET VOLUME 9.0 fL 6.0-11.5 MPV-Antonia roximately (BEAKER) (test code = 20% po sitive bias 754) due to method change. NUCLEATED RED BLOOD 0 /100 WBC 0-0 CELLS (BEAKER) (test code = 413) NEUTROPHILS RELATIVE 63 % PERCENT (BEAKER) (test code = 429) LYMPHOCYTES RELATIVE 21 % PERCENT (BEAKER) (test code = 430) MONOCYTES RELATIVE 10 % PERCENT (BEAKER) (test code = 431) EOSINOPHILS RELATIVE 5 % PERCENT (BEAKER) (test code = 432) BASOPHILS RELATIVE 0 % PERCENT (BEAKER) (test code = 437) NEUTROPHILS ABSOLUTE 7.53 K/ L 1.80-8.00 COUNT (BEAKER) (test code = 670) LYMPHOCYTES ABSOLUTE 2.50 K/ L 1.48-4.50 COUNT (BEAKER) (test code = 414) MONOCYTES ABSOLUTE 1.19 K/ L 0.00-1.30 COUNT (BEAKER) (test code = 415) EOSINOPHILS ABSOLUTE 0.60 K/ L 0.00-0.50 H COUNT (BEAKER) (test code = 416) BASOPHILS ABSOLUTE 0.03 K/ L 0.00-0.20 COUNT (BEAKER) (test code = 417) IMMATURE 0 % 0-0 GRANULOCYTES-RELATIVE PERCENT (BEAKER) (test code = 2801) VITAMIN B12 AND [id number] 12:38:00 Test Item Value Reference Range Interpretation Comments VITAMIN B12 (BEAKER) (test code = 259 pg/mL 213-816 774) FOLATE (BEAKER) (test code = 362) 3.6 ng/mL >=7.0 L CBC W/PLT COUNT & AUTO [id number] 07:36:00 Test Item Value Reference Range Interpretation Comments WHITE BLOOD CELL COUNT (BEAKER) 7.6 K/ L 4.0-10.0 (test code = 775) RED BLOOD CELL COUNT (BEAKER) 4.18 M/ L 4.20-5.80 L (test code = 761) HEMOGLOBIN (BEAKER) (test code = 9.5 GM/DL 13.0-16.8 L 410) HEMATOCRIT (BEAKER) (test code = 32.6 % 36.0-50.0 L 411) MEAN CORPUSCULAR VOLUME (BEAKER) 78.0 fL 82.0-99.0 L (test code = 753) MEAN CORPUSCULAR HEMOGLOBIN 22.7 pg 27.0-33.0 L (BEAKER) (test code = 751) MEAN CORPUSCULAR HEMOGLOBIN CONC 29.1 GM/DL 32.0-36.0 L (BEAKER) (test code = 752) RED CELL DISTRIBUTION WIDTH 19.3 % 12.0-15.0 H (BEAKER) (test code = 412) PLATELET COUNT (BEAKER) (test 302 K/CU MM 150-430 code = 756) MEAN PLATELET VOLUME (BEAKER) 8.9 fL 6.0-11.5 (test code = 754) NUCLEATED RED BLOOD CELLS 0 /100 WBC 0-0 (BEAKER) (test code = 413) NEUTROPHILS RELATIVE PERCENT 54 % (BEAKER) (test code = 429) LYMPHOCYTES RELATIVE PERCENT 25 % (BEAKER) (test code = 430) MONOCYTES RELATIVE PERCENT 15 % (BEAKER) (test code = 431) EOSINOPHILS RELATIVE PERCENT 5 % (BEAKER) (test code = 432) BASOPHILS RELATIVE PERCENT 0 % (BEAKER) (test code = 437) NEUTROPHILS ABSOLUTE COUNT 4.13 K/ L 1.80-8.00 (BEAKER) (test code = 670) LYMPHOCYTES ABSOLUTE COUNT 1.92 K/ L 1.48-4.50 (BEAKER) (test code = 414) MONOCYTES ABSOLUTE COUNT (BEAKER) 1.13 K/ L 0.00-1.30 (test code = 415) EOSINOPHILS ABSOLUTE COUNT 0.37 K/ L 0.00-0.50 (BEAKER) (test code = 416) BASOPHILS ABSOLUTE COUNT (BEAKER) 0.03 K/ L 0.00-0.20 (test code = 417) IMMATURE GRANULOCYTES-RELATIVE 0 % 0-0 PERCENT (BEAKER) (test code = 2801) IRON, TIBC, % SAT. (WITHOUT FERRITIN)2019-02-18 14:44:00 Test Item Value Reference Range Interpretation Comments IRON (BEAKER) (test code = 547) 24.0 ug/dL 45.0-170.0 L TOTAL IRON BINDING CAPACITY 471 ug/dL 250-550 (BEAKER) (test code = 769) IRON % SATURATION (2) (BEAKER) 5 % 20-55 L (test code = 2590) CT, CHEST WITH IV CONTRAST- PE TEST [id number] 14:40:00FINAL REPORT TECHNIQUE: CT of the chest WITH intravenous contrast (pulmonary embolism protocol). Dose modulation, iterative reconstruction, and/or weight-based adjustment of the mA/kV was utilized to reduce the radiation dose to as low as reasonably achievable. INDICATION: 49-year-old man with chest pain. COMPARISON: Chest CT 09/02/2018. FINDINGS: LINES/TUBES: Unchanged right internal jugular chest port. PULMONARY ARTERIES: Proximal to the bifurcation of the main pulmonary artery, the main pulmonary artery is 2.9 cm in diameter. New filling defects in lower lobe segmental/subsegmental branches of the right pulmonary artery. Previously described embolus in a lower lobe segmental branch of the right pulmonary artery has resolved. LUNGS AND AIRWAYS: The lungs and airways are normal without focal abnormality. PLEURA: The pleural spaces are clear. HEART AND MEDIASTINUM: The visualized thyroid gland is normal. No significant mediastinal, hilar, or axillary lymphadenopathy. The heart and pericardium are within normal limits. Mild atherosclerotic coronary artery calcifications. SOFT TISSUES AND BONES: Unremarkable. UPPER ABDOMEN: Unchanged subcentimeter calcification in the upper left kidney. Otherwise, unremarkable. IMPRESSION:New pulmonary emboli in segmental/subsegmental branches of the right pulmonary artery. Previously described embolus in a segmental branch of the ri ght pulmonary artery has resolved. Signed: Louis Pacheco MDReport Verified Date/Time: 02/18/2019 14:40:05 Reading Location: [facility] B1 C013Y CT Body Reading Room -[id number] 14:18:00 Test Item Value Reference Range Interpretation Comments D-DIMER QUANTITATIVE (BEAKER) (test 2.76 mg/L <0.50 H code = 671) REGARDING D-DIMER RESULTS: The 98% NPV (Negative Predictive Value) for DVT/PE exclusion is 0.50 mg/LFEU as suggested by the electrotyper helper and as approved by the FDA.Final Information (Auto Output)TROPONIN [id number] 06:57:00 Test Item Value Reference Range Interpretation Comments TROPONIN I (BEAKER) (test code = 397) < ng/mL 0.00-0.15 Troponin I (TnI) levels [...] failure, acidosis, acute neurological disease, and persistent tachyarrhythmia.COMPREHENSIVE METABOLIC [id number] 06:49:00 Test Item Value Reference Range Interpretation Comments TOTAL PROTEIN 7.1 gm/dL 6.0-8.5 (BEAKER) (test code = 770) ALBUMIN (BEAKER) 4.2 g/dL 3.5-5.0 (test code = 1145) ALKALINE PHOSPHATASE 72 U/L 30-115 (BEAKER) (test code = 346) BILIRUBIN TOTAL 0.5 mg/dL 0.1-1.2 (BEAKER) (test code = 377) SODIUM (BEAKER) (test 140 meq/L 135-148 code = 381) POTASSIUM (BEAKER) 3.7 meq/L 3.6-5.5 (test code = 379) CHLORIDE (BEAKER) 106 meq/L 98-106 (test code = 382) CO2 (BEAKER) (test 26 meq/L 20-29 code = 355) BLOOD UREA NITROGEN 14 mg/dL 10-26 (BEAKER) (test code = 354) CREATININE (BEAKER) 1.00 mg/dL 0.50-1.20 (test code = 358) GLUCOSE RANDOM 97 mg/dL 70-110 (BEAKER) (test code = 652) CALCIUM (BEAKER) 8.7 mg/dL 8.5-10.5 (test code = 697) AST (SGOT) (BEAKER) 18 U/L 5-40 (test code = 353) ALT (SGPT) (BEAKER) 8 U/L 5-50 (test code = 347) EGFR (BEAKER) (test 80 mL/min/1.73 ESTIMA NEIL GFR IS code = 1092) sq m NOT ACCURATE CREATININE CLEARANCE IN PREDICTING GLOMERULAR FILTRATION RATE . ESTIMATED GFR I S NOT APPLICABLE FOR DIALYSIS PATIEN TS. CBC W/PLT COUNT & AUTO [id number] 06:28:00 Test Item Value Reference Range Interpretation Comments WHITE BLOOD CELL COUNT (BEAKER) 9.7 K/ L 4.0-10.0 (test code = 775) RED BLOOD CELL COUNT (BEAKER) 3.30 M/ L 4.20-5.80 L (test code = 761) HEMOGLOBIN (BEAKER) (test code = 6.9 GM/DL 13.0-16.8 L 410) HEMATOCRIT (BEAKER) (test code = 24.6 % 36.0-50.0 L 411) MEAN CORPUSCULAR VOLUME (BEAKER) 74.5 fL 82.0-99.0 L (test code = 753) MEAN CORPUSCULAR HEMOGLOBIN 20.9 pg 27.0-33.0 L (BEAKER) (test code = 751) MEAN CORPUSCULAR HEMOGLOBIN CONC 28.0 GM/DL 32.0-36.0 L (BEAKER) (test code = 752) RED CELL DISTRIBUTION WIDTH 17.9 % 12.0-15.0 H (BEAKER) (test code = 412) PLATELET COUNT (BEAKER) (test 337 K/CU MM 150-430 code = 756) MEAN PLATELET VOLUME (BEAKER) 9.1 fL 6.0-11.5 (test code = 754) NUCLEATED RED BLOOD CELLS 0 /100 WBC 0-0 (BEAKER) (test code = 413) NEUTROPHILS RELATIVE PERCENT 62 % (BEAKER) (test code = 429) LYMPHOCYTES RELATIVE PERCENT 23 % (BEAKER) (test code = 430) MONOCYTES RELATIVE PERCENT 13 % (BEAKER) (test code = 431) EOSINOPHILS RELATIVE PERCENT 1 % (BEAKER) (test code = 432) BASOPHILS RELATIVE PERCENT 0 % (BEAKER) (test code = 437) NEUTROPHILS ABSOLUTE COUNT 6.01 K/ L 1.80-8.00 (BEAKER) (test code = 670) LYMPHOCYTES ABSOLUTE COUNT 2.21 K/ L 1.48-4.50 (BEAKER) (test code = 414) MONOCYTES ABSOLUTE COUNT (BEAKER) 1.26 K/ L 0.00-1.30 (test code = 415) EOSINOPHILS ABSOLUTE COUNT 0.14 K/ L 0.00-0.50 (BEAKER) (test code = 416) BASOPHILS ABSOLUTE COUNT (BEAKER) 0.03 K/ L 0.00-0.20 (test code = 417) IMMATURE GRANULOCYTES-RELATIVE 0 % 0-0 PERCENT (BEAKER) (test code = 2801) TROPONIN [id number] 02:25:00 Test Item Value Reference Range Interpretation Comments TROPONIN I (BEAKER) (test code = 397) < ng/mL 0.00-0.15 Troponin I (TnI) levels [...] failure, acidosis, acute neurological disease, and persistent tachyarrhythmia.HGBA1C%2019-01-14 09:16:00 Test Item Value Reference Range Interpretation Comments HGBA1C% (test code = HGBA1C%) 5.7 %A1C 4.8-6.0 N BASIC METABOLIC [id number] 08:48:00 Test Item Value Reference Range Interpretation Comments SODIUM (test code = NA) 139 mEq/L 134-147 N POTASSIUM (test code = 3.5 mEq/L 3.4-5.0 N K) CHLORIDE (test code = 105 mEq/L 100-108 N CL) CARBON DIOXIDE (test 26 mEq/L 21-33 N code = CO2) ANION GAP (test code = 12 0-20 N GAP) GLUCOSE (test code = 83 mg/dL 70-110 N GLU) BLOOD UREA NITROGEN 10 mg/dL 7-18 N (test code = BUN) GLOMERULAR FILTRATION 90.1 95-105 L Units of measure = RATE (test code = GFR) ml/mi n/1.73 m2 CREATININE (test code = 0.9 mg/dL 0.6-1.3 N CREAT) CALCIUM (test code = 8.9 mg/dL 8.0-10.5 N CA) LIPID PROFILE (CORONARY RISK)2019-01-14 08:48:00 Test Item Value Reference Range Interpretation Comments TRIGLYCERIDES (test 65 mg/dL 40-150 N code = TRIG) CHOLESTEROL (test 190 mg/dL <200 code = CHOL) CHOLESTEROL/HDL 3.45 RATIO 3.43-4.97 N RISK ASSOCIA NEIL WITH RATIO (test code = CHOL/HDL RATIOS: RISK CHOLHDL) MALE FEMALE1/2 AVERA GE 3.43 3.27AVERAGE 4.97 4.4 42X AVERAGE 9.55 7.053X AVER AGE 23.39 1 1.04 NOTE THAT THE R EFERENCE VALUE IS RELATE DTO RISK LEVELS RECOM MENDED BY THE NATL.HEA RT, LUNG, AND BLOOD INST. HDL CHOLESTEROL 55.0 mg/dL 32-72 N (test code = HDL) LIPOPROTEIN LDL 127 mg/dL 0-100 H <100 OPT [id number] (test code = LDL) NEAR OPTI MAL/ABOVE [id number] 89 HIGH>ZG=804 VE RY HIGH*Guidelines provided by the National Choles terol EducationProgra m Adult Treatment Panel III [id number] 08:48:00 Test Item Value Reference Range Interpretation Comments TROPONIN-I < 0.015 ng/mL 0.000-0.045 N Negative: <= (test code = 0.045 Positive: TROPI) >= 0.046 Correl ation with serial results, other cardiac markers andclinical findings is nec essary to determine the clinicalsignifi cance of this result. Results using different metho dologies should not be c omparedto one another as bindu titative results may nicky y by method. [id number] 07:31:00 Test Item Value Reference Range Interpretation Comments TROPONIN-I < 0.015 ng/mL 0.000-0.045 N Negative: <= (test code = 0.045 Positive: TROPI) >= 0.046 Correl ation with serial results, other cardiac markers andclinical findings is nec essary to determine the clinicalsignifi cance of this result. Results using different metho dologies should not be c omparedto one another as bindu titative results may nicky y by method. CBC W/AUTO [id number] 07:10:00 Test Item Value Reference Range Interpretation Comments WHITE BLOOD CELL (test code = 9.71 x10 3/uL 4.5-11.0 N WBC) RED BLOOD CELL (test code = 3.45 x10 6/uL 4.00-5.60 L RBC) HEMOGLOBIN (test code = HGB) 8.1 g/dL 12.5-16.9 L HEMATOCRIT (test code = HCT) 27.2 % 37.5-50.7 L MEAN CELL VOLUME (test code = 78.8 fL 81.0-99.0 L MCV) MEAN CELL HGB (test code = MCH) 23.5 pg 27.0-33.0 L MEAN CELL HGB CONCETRATION 29.8 g/dL 33.0-37.0 L (test code = MCHC) RED CELL DISTRIBUTION WIDTH CV 17.2 % 11.5-14.5 H (test code = RDW) RED CELL DISTRIBUTION WIDTH SD 49.6 fL 37.0-54.0 N (test code = RDW-SD) PLATELET COUNT (test code = 402 x10 3/uL 150-400 H PLT) MEAN PLATELET VOLUME (test code 9.3 fL 7.0-9.0 H = MPV) NEUTROPHIL % (test code = NT%) 54.4 % 56.0-77.0 L IMMATURE GRANULOCYTE % (test 0.3 % 0.0-2.0 N code = IG%) LYMPHOCYTE % (test code = LY%) 28.0 % 14.0-32.0 N MONOCYTE % (test code = MO%) 13.5 % 4.8-9.0 H EOSINOPHIL % (test code = EO%) 3.5 % 0.3-3.7 N BASOPHIL % (test code = BA%) 0.3 % 0.0-2.0 N NUCLEATED RBC % (test code = 0.0 % 0-0 N NRBC%) NEUTROPHIL # (test code = NT#) 5.28 x10 3/uL 2.0-7.6 N IMMATURE GRANULOCYTE # (test 0.03 x10 3/uL 0.00-0.03 N code = IG#) LYMPHOCYTE # (test code = LY#) 2.72 x10 3/uL 1.0-3.8 N MONOCYTE # (test code = MO#) 1.31 x10 3/uL 0.1-0.8 H EOSINOPHIL # (test code = EO#) 0.34 x10 3/uL 0.0-0.2 H BASOPHIL # (test code = BA#) 0.03 x10 3/uL 0.0-0.2 N NUCLEATED RBC # (test code = 0.00 x10 3/uL 0.0-0.1 N NRBC#) MANUAL DIFF REQUIRED (test code NO = MDIFF) [id number] 01:38:00 Test Item Value Reference Range Interpretation Comments MAGNESIUM (test code = MAG) 2.30 mg/dL 1.8-2.4 N THYROID STIMULATING [id number] 01:38:00 Test Item Value Reference Range Interpretation Comments THYROID STIMULATING 1.24 0.42-5.47 N Results in HORMONE (test code = TSH) mi lli-International Units/mL [id number] 01:38:00 Test Item Value Reference Range Interpretation Comments TROPONIN-I < 0.015 ng/mL 0.000-0.045 N Negative: <= (test code = 0.045 Positive: TROPI) >= 0.046 Correl ation with serial results, other cardiac markers andclinical findings is nec essary to determine the clinicalsignifi cance of this result. Results using different metho dologies should not be c omparedto one another as bindu titative results may nicky y by method. BASIC METABOLIC [id number] 03:45:00 Test Item Value Reference Range Interpretation Comments SODIUM (test code = NA) 138 mEq/L 134-147 N POTASSIUM (test code = 3.7 mEq/L 3.4-5.0 N K) CHLORIDE (test code = 105 mEq/L 100-108 N CL) CARBON DIOXIDE (test 26 mEq/L 21-33 N code = CO2) ANION GAP (test code = 11 0-20 N GAP) GLUCOSE (test code = 117 mg/dL 70-110 H GLU) BLOOD UREA NITROGEN 20 mg/dL 7-18 H (test code = BUN) GLOMERULAR FILTRATION 80.1 95-105 L Units of measure = RATE (test code = GFR) ml/mi n/1.73 m2 CREATININE (test code = 1.0 mg/dL 0.6-1.3 N CREAT) CALCIUM (test code = 8.8 mg/dL 8.0-10.5 N CA) CBC W/AUTO [id number] 03:29:00 Test Item Value Reference Range Interpretation Comments WHITE BLOOD CELL (test code = 8.68 x10 3/uL 4.5-11.0 WBC) RED BLOOD CELL (test code = 3.84 x10 6/uL 4.00-5.60 L RBC) HEMOGLOBIN (test code = HGB) 9.6 g/dL 12.5-16.9 L HEMATOCRIT (test code = HCT) 32.3 % 37.5-50.7 L MEAN CELL VOLUME (test code = 84.1 fL 81.0-99.0 N MCV) MEAN CELL HGB (test code = MCH) 25.0 pg 27.0-33.0 L MEAN CELL HGB CONCETRATION 29.7 g/dL 33.0-37.0 L (test code = MCHC) RED CELL DISTRIBUTION WIDTH CV 19.9 % 11.5-14.5 H (test code = RDW) RED CELL DISTRIBUTION WIDTH SD 60.1 fL 37.0-54.0 H (test code = RDW-SD) PLATELET COUNT (test code = 381 x10 3/uL 150-400 N PLT) MEAN PLATELET VOLUME (test code 9.0 fL 7.0-9.0 N = MPV) NEUTROPHIL % (test code = NT%) 57.1 % 56.0-77.0 N IMMATURE GRANULOCYTE % (test 0.2 % 0.0-2.0 N code = IG%) LYMPHOCYTE % (test code = LY%) 27.9 % 14.0-32.0 N MONOCYTE % (test code = MO%) 12.7 % 4.8-9.0 H EOSINOPHIL % (test code = EO%) 1.8 % 0.3-3.7 N BASOPHIL % (test code = BA%) 0.3 % 0.0-2.0 N NUCLEATED RBC % (test code = 0.0 % 0-0 N NRBC%) NEUTROPHIL # (test code = NT#) 4.95 x10 3/uL 2.0-7.6 N IMMATURE GRANULOCYTE # (test 0.02 x10 3/uL 0.00-0.03 N code = IG#) LYMPHOCYTE # (test code = LY#) 2.42 x10 3/uL 1.0-3.8 N MONOCYTE # (test code = MO#) 1.10 x10 3/uL 0.1-0.8 H EOSINOPHIL # (test code = EO#) 0.16 x10 3/uL 0.0-0.2 N BASOPHIL # (test code = BA#) 0.03 x10 3/uL 0.0-0.2 N NUCLEATED RBC # (test code = 0.00 x10 3/uL 0.0-0.1 N NRBC#) MANUAL DIFF REQUIRED (test code NO = MDIFF) B-TYPE NATRIURETIC [id number] 10:56:00 Test Item Value Reference Range Interpretation Comments B-TYPE NATRIURETIC PEPTIDE (test 30.1 PG/ML 0-100 N code = BNP) COMPREHENSIVE METABOLIC [id number] 10:40:00 Test Item Value Reference Range Interpretation Comments SODIUM (test code = NA) 137 mEq/L 134-147 N POTASSIUM (test code = 3.6 mEq/L 3.4-5.0 N K) CHLORIDE (test code = 103 mEq/L 100-108 N CL) CARBON DIOXIDE (test 28 mEq/L 21-33 N code = CO2) ANION GAP (test code = 10 0-20 N GAP) GLUCOSE (test code = 157 mg/dL 70-110 H GLU) BLOOD UREA NITROGEN 14 mg/dL 7-18 N (test code = BUN) GLOMERULAR FILTRATION 80.1 95-105 L Units of measure = RATE (test code = GFR) ml/mi n/1.73 m2 CREATININE (test code = 1.0 mg/dL 0.6-1.3 N CREAT) TOTAL PROTEIN (test 8.2 g/dL 6.4-8.2 N code = PROT) ALBUMIN (test code = 4.00 g/dL 3.4-5.0 N ALB) CALCIUM (test code = 9.0 mg/dL 8.0-10.5 N CA) BILIRUBIN TOTAL (test 0.40 mg/dL 0.0-1.0 N code = BILT) SGOT/AST (test code = 16 IUnit/L 15-37 N AST) SGPT/ALT (test code = 19 IUnit/L 15-65 N ALT) ALKALINE PHOSPHATASE 117 IUnit/L 20-125 N TOTAL (test code = ALKP) CPK-MB [id number] 10:40:00 Test Item Value Reference Range Interpretation Comments CREATINE KINASE 102 35-232 N Result is in (CK) (test code = INTERNATIO NAL CK) UNITS/LITER CKMB (test code = < 1.0 ng/mL 0-5.0 N CUT OFF:>5 ng/mL is CKMBT) suggested as be ing consistent with AMI. RELATIVE % INDEX 0.9 % 0.0-2.5 N *CK-MB IN TERPRETATION* (test code = REL%) N ORMAL: <5 ng/ml & <2.5% I NDEX ABNORMAL: >5 ng/ml & >2.5% INDEX GARDNER ZONE: >5 ng/ml & <2.5% INDEX - SUGGEST CPK ISOENZYME BY ELECTROPHORESIS *PLEASE NOTE* A LOW TOTAL CK MAY CA LCULATE TO A FALSELY ELEVATED INDEX. PROTHROMBIN [id number] 10:39:00 Test Item Value Reference Range Interpretation Comments PROTHROMBIN TIME 11.4 SECONDS 9.3-12.9 N PATIENT (test code = PTP) INTERNATIONAL NORMAL 1.0 0.8-1.2 N TARGET RATIO (test code = INR BY IN DICATION INR) Indication INR1. Prophyl axis of venous thrombos is 2.0 - 3. 0 (orthopedic minesh graham), Prophylaxis of venous thrombos is (other than hig h-risk surgery), Court tment of Deep Vein Thrombosis/Pulm onary Embolism, Preve ntion of systemic emb olism - Tissue heart va lves, Acute Myocardia l Infarction (to prevent systemic embo lism), Valvular heart disease, Atri al Fibrillation, Bileaflet mecha nical valve in aortic position.2. Mec hanical prosthetic valv es (high risk), 2.5 - 3.5 Presence of Lupus Anticoagu lant or Antiphospholi pid Antibodies, Pre vention of systemic e mbolism - Acute Myocard ial Infarction (t o prevent recurre nt infarct). THROMBOPLASTIN TIME [id number] 10:39:00 Test Item Value Reference Range Interpretation Comments THROMBOPLASTIN TIME 46.6 Seconds 25.0-39.5 H Ther apeutic PARTIAL (test code = Range: 61.8-83.8 PTT) Sec Effective 11/08/2013 COMPREHENSIVE METABOLIC [id number] 10:34:00 Test Item Value Reference Range Interpretation Comments SODIUM (test code = NA) 137 mEq/L 134-147 N POTASSIUM (test code = 3.6 mEq/L 3.4-5.0 N K) CHLORIDE (test code = 103 mEq/L 100-108 N CL) CARBON DIOXIDE (test 28 mEq/L 21-33 N code = CO2) ANION GAP (test code = 10 0-20 N GAP) GLUCOSE (test code = 157 mg/dL 70-110 H GLU) BLOOD UREA NITROGEN 14 mg/dL 7-18 N (test code = BUN) GLOMERULAR FILTRATION 80.1 95-105 L Units of measure = RATE (test code = GFR) ml/mi n/1.73 m2 CREATININE (test code = 1.0 mg/dL 0.6-1.3 N CREAT) TOTAL PROTEIN (test g/dL 6.4-8.2 code = PROT) ALBUMIN (test code = 4.00 g/dL 3.4-5.0 N ALB) CALCIUM (test code = 9.0 mg/dL 8.0-10.5 N CA) BILIRUBIN TOTAL (test mg/dL 0.0-1.0 code = BILT) SGOT/AST (test code = 16 IUnit/L 15-37 N AST) SGPT/ALT (test code = 19 IUnit/L 15-65 N ALT) ALKALINE PHOSPHATASE IUnit/L 20-125 TOTAL (test code = ALKP) CPK-MB [id number] 10:34:00 Test Item Value Reference Range Interpretation Comments CREATINE KINASE (CK) (test code = CK) 35-232 CKMB (test code = CKMBT) ng/mL 0-5.0 RELATIVE % INDEX (test code = REL%) % 0.0-2.5 CBC W/AUTO [id number] 10:16:00 Test Item Value Reference Range Interpretation Comments WHITE BLOOD CELL (test code = 6.17 x10 3/uL 4.5-11.0 WBC) RED BLOOD CELL (test code = 4.18 x10 6/uL 4.00-5.60 N RBC) HEMOGLOBIN (test code = HGB) 10.6 g/dL 12.5-16.9 L HEMATOCRIT (test code = HCT) 34.9 % 37.5-50.7 L MEAN CELL VOLUME (test code = 83.5 fL 81.0-99.0 N MCV) MEAN CELL HGB (test code = MCH) 25.4 pg 27.0-33.0 L MEAN CELL HGB CONCETRATION 30.4 g/dL 33.0-37.0 L (test code = MCHC) RED CELL DISTRIBUTION WIDTH CV 19.6 % 11.5-14.5 H (test code = RDW) RED CELL DISTRIBUTION WIDTH SD 59.9 fL 37.0-54.0 H (test code = RDW-SD) PLATELET COUNT (test code = 391 x10 3/uL 150-400 N PLT) MEAN PLATELET VOLUME (test code 8.9 fL 7.0-9.0 N = MPV) NEUTROPHIL % (test code = NT%) 55.3 % 56.0-77.0 L IMMATURE GRANULOCYTE % (test 0.3 % 0.0-2.0 N code = IG%) LYMPHOCYTE % (test code = LY%) 31.0 % 14.0-32.0 N MONOCYTE % (test code = MO%) 10.2 % 4.8-9.0 H EOSINOPHIL % (test code = EO%) 2.9 % 0.3-3.7 N BASOPHIL % (test code = BA%) 0.3 % 0.0-2.0 N NUCLEATED RBC % (test code = 0.0 % 0-0 N NRBC%) NEUTROPHIL # (test code = NT#) 3.41 x10 3/uL 2.0-7.6 N IMMATURE GRANULOCYTE # (test 0.02 x10 3/uL 0.00-0.03 N code = IG#) LYMPHOCYTE # (test code = LY#) 1.91 x10 3/uL 1.0-3.8 N MONOCYTE # (test code = MO#) 0.63 x10 3/uL 0.1-0.8 N EOSINOPHIL # (test code = EO#) 0.18 x10 3/uL 0.0-0.2 N BASOPHIL # (test code = BA#) 0.02 x10 3/uL 0.0-0.2 N NUCLEATED RBC # (test code = 0.00 x10 3/uL 0.0-0.1 N NRBC#) MANUAL DIFF REQUIRED (test code NO = MDIFF) TROPONIN-I [id number] 10:13:00 Test Item Value Reference Range Interpretation Comments TROPONIN-I RAPID 0.00 ng/mL 0.00-0.08 N Performed b y certified (test code = 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 The universal defin ition of FL, according to is taskforce, is d efined as a typical rise an d gradual fall ofcardiac biomarkers (preferably tro ponin) with at least oneval ue above the 99th percentile of the upper reference limit (URL) together with e vidence of myocardial isch emia with at least one of th e following:* isc hemic symptoms,* path ological Q waves on electr ocardiogram (ECG),* ischemi c ECG changes,* or im aging evidence of new loss of viable myocardi um or new regional wall m otion abnormality. An elevated troponin value alone is not sufficient todi agnose a myocardial infa rction. Rather, the pat ient sclinical prese ntation (history, physi magdaleno exam) and ECGshould b e used in conjunction wit h troponin in thediagnosti c evaluation of suspected my ocardial infarction. Ase rial sampling protoc ol is recommended to facilitate the identificat ion of temporal change s in troponin levels characteristic of FL. - XR CHEST 1 [id number] 10:01:00 FAX: Azalia Morillo DO [place]: REG Name: GERMÁN EUBANKS [facility] : 1970 Age/S: 48/M [address] [place] [address] Blvd Unit#: [id number] Loc: [address] [place] [id number] Phys: Azalia Morillo DO Acct: [id number] Dis Date: Status: REG ER PHONE #: [phone] Exam Date: 12/10/2018951 FAX #: [phone] Reason: cp EXAMS: CPT CODE: [id number] XR CHEST 1 V 60727 1 VIEW CXR. PORTABLE EXAM 9:38 AM HISTORY: Chest pain. COMPARISON: 09/26/2018 chest x-ray. The lungs are clear wi th normal pulmonary vasculature. Cardiomediastinal silhouette normal. No pleural abnormality. Bony thorax intact. Port-A-Cath position appears good stable from the prior exam. IMPRESSION: Normal exam. END OF IM PRESSION SL: [id number] at 1001 Reported and signed by: Sunny Boston M.D. CC:Azalia Morillo DO Technologist: Blank Magaña, RT(R); Kelly Rosenbaum RT(R) Trnscrd Date/Time/By: 12/10/2018 (1001) : By: Olvin Orig Print D/T: S: 12/10/2018 (1007) PAGE 1 Signed ReportCT Angio [id number] 19:10:49Patient: GERMÁN EUBANKS Date/Time11/26/2018 18:57 CSTReason for ExamPulmonary embolism (PE)ReportLOCATION: [id number]: 48-year-old male, clavicu lar or peripheral pulmonary embolism. The patient presents with chest pain.COMMENT: Field 3Axial CT imaging of this patient's chest was obtained from the thoracic inlet through the upper abdomen with IV contrast utilizing pulmonary protocol. Coronal, sagittal, and bilateral oblique coronal reconstructed images were included.A chest x-ray obtained earlier today is available for comparison.One or moreof the following dose reduction techniques were used: Automated exposure control, adjustment of the mA and/or kV according the patient size, and/or utilization of iterative reconstruction technique.DLP: 380.3 mGy-cmCONTRAST: 100 mL of Omnipaque 350 nonionic contrast was injected into a right IJ port.FINDINGS:The pulmonary arteries exhibit no suspicious filling defects.The thoracic aorta exhibits no evidence of aneurysms or dissections. The great vessels are unremarkable. The cardiac silhouette and the pulmonary venous return or unremarkable. There is no adenopathy in the chest.The thoracic inlet and chest wall are unremarkable.Visualized upper abdomen exhibits no acute findings.The lungs are clear.IMPRESSION:There is no evidence of a pulmonary embolus in this CT study of the chest. The overall appearance of the chest is unremarkable. Final Dictated by: MD Leone Robert LDictated DT/TM: 11/26/2018 7:07 pmSigned by: MD Leone Robert LSigned (Electronic Signature): 11/26/2018 7:10pmXR Chest 1 View [id number] 16:50:15Patient: GERMÁN EUBANKS Date/Time11/26/2018 16:43 CSTReason for ExamChest [id number]: XR Chest 1 View FrontalHISTORY: Chest painCOMPARISON: 08/29/2013FINDINGS:Interval placement of a right internal jugular chest port with its tip projected over the cavoatrial junction.The lungs are clear. No pleural effusion or pneumothorax. The cardiacsilhouette is within normal limits. No acute osseous abnormalities.IMPRESSION:Chest port in place.Noacute cardiopulmonary disease. Final Dictated by: MD Jason, Ale DT/TM: 11/26/2018 4:49 pmSigned by: MD Gomez VivekSigned (Electronic Signature): 11/26/2018 4:50 pmBRAIN NATRIURETIC PROTEIN OW 2018-11-19 09:47:00 Test Item Value Reference Range Interpretation Comments BNP (test code = OBNP) <15 pg/mL 0-50 TROPONIN I i-STAT OW2018-11-19 09:37:00 Test Item Value Reference Range Interpretation Comments TROPONIN I (test code = A84) 0.000 ng/mL 0.000-0.045 CT PE PROTOCOL *OW*2018-11-19 09:36:32CT CHEST WITH CONTRAST, PE PROTOCOL:Location code: [id number] HISTORY: Chest painCOMPARISON: 10/24/18, 09/15/18, 07/15/18, 12/16/17TECHNIQUE: Following the administration of a timed IV contrast bolus, helicalCT of the chest was performed. Thin section axial, coronal, and sagittalimages were obtained. Oblique sagittal maximum intensity reformatted images ofthe pulmonary arteries were also obtained. Automatic exposure control wasutilized. Total DLP: 795.71 mGycmFINDINGS: There is no filling defect within the pulmonary arteries to suggest pulmonaryembolus. The aorta is of normal caliber and contour. The lungs are clear. There is no consolidation or effusion. The centralairways are patent.There is no mediastinal adenopathy or mass. There is no pericardial effusion. Right chest port remains. Nonobstructing bilateral renal calculi again noted. Images through the upperabdomen are otherwise unremarkable.The bones, skin and surrounding soft tissues are unremarkable. IMPRESSION:1. Negative forPE.2. No acute abnormality or significant change compared to multiple prior exams.DRUGS OF ABUSE*OW* 2018-11-19 09:25:00 Test Item Value Reference Range Interpretation Comments DRUG SCRN (test code URINE DRUG SCREEN = HDOA) This is an unconfirmed screening result and should not be used for non-medical purposes PHENCYCLID (test Negative NEGATIVE code = GPCP) BENZODIAZE (test Negative NEGATIVE code = GBZO) COCAINE (test code = Negative NEGATIVE GCOC) AMPHETAMIN (test Negative NEGATIVE code = GAMP) THC (test code = Negative NEGATIVE GTHC) OPIATES (test code = Negative NEGATIVE TOÑA) BARBITURAT (test Negative NEGATIVE code = GBAR) TCA (test code = Positive NEGATIVE A GTCA) DOAH (test code = URINE DRUG DOAH) SCREEN CUT OFF VALUES Amphetamines 1000 ng/mL Barbituates 300 ng/mL Benzodiazepines 300 ng/mL Cocaine 300 ng/mL Opiates 300 ng/mL Phencyclidine 25 ng/mL THC 50 ng/mL Tricyclic Antidepressants 1000 ng/mL URINALYSIS W/O MICROSCOPICOW2018-11-19 09:18:00 Test Item Value Reference Range Interpretation Comments COLOR (test code = YELLOW YELLOW COLU) CLARITY (test code = CLEAR CLEAR CLA) GLUCOSE UR (test 1+ NEGATIVE A code = UA GLUCOSE) BILI UR (test code = NEGATIVE NEGATIVE BILE) KETONES UR (test NEGATIVE NEGATIVE code = CAIL) SP GRAVITY (test 1.010 1.005-1.030 code = SPGR) PH UR (test code = 6.5 4.5-8.0 PH) PROTEIN UR (test NEGATIVE NEGATIVE code = PU) NITRITE UR (test NEGATIVE NEGATIVE code = NITRITE) UROBIL UR (test code 0.2 E.U./dL = GUROQ) UROBIL UR (test code UROBILINOGEN = GUROQC) REFERENCE RANGE 0.2 - 1.0 EU/dL BLOOD UR (test code NEGATIVE NEGATIVE = UA BLOOD) LEUK ES UR (test NEGATIVE NEGATIVE code = LEUK) CHEM8+ i-STAT OW2018-11-19 09:14:00 Test Item Value Reference Range Interpretation Comments SODIUM (test code = BHARGAV) 141 mmol/L 138-146 POTASSIUM (test code = KI) 3.9 mmol/L 3.5-4.9 CHLORIDE (test code = CLI) 108 mmol/L 98-109 CA IONIZED (test code = ICAI) 1.23 mmol/L 1.12-1.32 GLUCOSE (test code = GLUI) 173 mg/dL 75-100 H TCO2 (test code = TCO2) 24 mmol/L 24-29 BUN (test code = BUN1) 16 mg/dL 8-26 CREATININE (test code = CREAI) 0.8 mg/dL 0.6-1.3 ANION GAP (test code = GANG) 14.0 mmol/L HGB (test code = MHB) 10.5 g/dL 12.0-17.0 L HCT (test code = MHCT) 31.0 % 38.0-51.0 L CBC (INCLUDES AUTOMATED DIFFERENTIAL) *2018-11-19 09:00:00 Test Item Value Reference Range Interpretation Comments WBC (test code = WBC) 7.2 10\\S\\3/uL 4.5-11.0 RBC (test code = RBC) 3.85 10\\S\\6/uL 4.20-5.60 L HGB (test code = HBG) 9.9 g/dL 14.0-18.0 L HCT (test code = HCT) 30.8 % 35.0-46.0 L MCV (test code = MCV) 79.9 fL 80.0-94.0 L MCH (test code = MCH) 25.7 pg 27.0-31.0 L MCHC (test code = MCHC) 32.1 g/dL 32.0-36.0 RDW (test code = RDW) 23.6 % 11.5-14.5 H PLT (test code = PLT) 356 10\\S\\3/uL 130-400 MPV (test code = OMPV) 6.6 fL 6.2-10.2 NEUTROP # (test code = NE#) 4.8 10\\S\\3/uL 2.0-8.0 LYMPH # (test code = LY#) 1.8 10\\S\\3/uL 1.2-4.0 MID # (test code = GMID#) 0.5 10\\S\\3/uL 0.0-1.1 GRA % (test code = GRA%) 66.9 % 35.0-73.0 LYMPH % (test code = GLY%) 25.5 % 20.0-55.0 MID % (test code = GMID%) 7.6 % 0.0-10.0 CBC W/AUTO [id number] 10:22:00 Test Item Value Reference Range Interpretation Comments WHITE BLOOD CELL (test code = 8.83 x10 3/uL 4.5-11.0 N WBC) RED BLOOD CELL (test code = 4.06 x10 6/uL 4.00-5.60 N RBC) HEMOGLOBIN (test code = HGB) 10.3 g/dL 12.5-16.9 L HEMATOCRIT (test code = HCT) 35.5 % 37.5-50.7 L MEAN CELL VOLUME (test code = 87.4 fL 81.0-99.0 N MCV) MEAN CELL HGB (test code = MCH) 25.4 pg 27.0-33.0 L MEAN CELL HGB CONCETRATION 29.0 g/dL 33.0-37.0 L (test code = MCHC) RED CELL DISTRIBUTION WIDTH CV 25.1 % 11.5-14.5 H (test code = RDW) RED CELL DISTRIBUTION WIDTH SD 78.3 fL 37.0-54.0 H (test code = RDW-SD) PLATELET COUNT (test code = 337 x10 3/uL 150-400 N PLT) MEAN PLATELET VOLUME (test code 9.4 fL 7.0-9.0 H = MPV) NEUTROPHIL % (test code = NT%) 52.9 % 56.0-77.0 L IMMATURE GRANULOCYTE % (test 0.2 % 0.0-2.0 N code = IG%) LYMPHOCYTE % (test code = LY%) 32.6 % 14.0-32.0 H MONOCYTE % (test code = MO%) 11.6 % 4.8-9.0 H EOSINOPHIL % (test code = EO%) 2.4 % 0.3-3.7 N BASOPHIL % (test code = BA%) 0.3 % 0.0-2.0 N NUCLEATED RBC % (test code = 0.0 % 0-0 N NRBC%) NEUTROPHIL # (test code = NT#) 4.67 x10 3/uL 2.0-7.6 N IMMATURE GRANULOCYTE # (test 0.02 x10 3/uL 0.00-0.03 N code = IG#) LYMPHOCYTE # (test code = LY#) 2.88 x10 3/uL 1.0-3.8 N MONOCYTE # (test code = MO#) 1.02 x10 3/uL 0.1-0.8 H EOSINOPHIL # (test code = EO#) 0.21 x10 3/uL 0.0-0.2 H BASOPHIL # (test code = BA#) 0.03 x10 3/uL 0.0-0.2 N NUCLEATED RBC # (test code = 0.00 x10 3/uL 0.0-0.1 N NRBC#) MANUAL DIFF REQUIRED (test code NO = MDIFF) RBC [id number] 10:22:00 Test Item Value Reference Range Interpretation Comments POIKILOCYTOSIS (test code = POIK) 1+ ANISOCYTOSIS (test code = ANISO) 3+ OVALOCYTES (test code = OVAL) 1+ SCHISTOCYTES (test code = KAVITA) 1+ CBC W/AUTO [id number] 08:04:00 Test Item Value Reference Range Interpretation Comments WHITE BLOOD CELL (test code = 8.83 x10 3/uL 4.5-11.0 N WBC) RED BLOOD CELL (test code = 4.06 x10 6/uL 4.00-5.60 N RBC) HEMOGLOBIN (test code = HGB) 10.3 g/dL 12.5-16.9 L HEMATOCRIT (test code = HCT) 35.5 % 37.5-50.7 L MEAN CELL VOLUME (test code = 87.4 fL 81.0-99.0 N MCV) MEAN CELL HGB (test code = MCH) 25.4 pg 27.0-33.0 L MEAN CELL HGB CONCETRATION 29.0 g/dL 33.0-37.0 L (test code = MCHC) RED CELL DISTRIBUTION WIDTH CV 25.1 % 11.5-14.5 H (test code = RDW) RED CELL DISTRIBUTION WIDTH SD 78.3 fL 37.0-54.0 H (test code = RDW-SD) PLATELET COUNT (test code = 337 x10 3/uL 150-400 N PLT) MEAN PLATELET VOLUME (test code 9.4 fL 7.0-9.0 H = MPV) NEUTROPHIL % (test code = NT%) 52.9 % 56.0-77.0 L IMMATURE GRANULOCYTE % (test 0.2 % 0.0-2.0 N code = IG%) LYMPHOCYTE % (test code = LY%) 32.6 % 14.0-32.0 H MONOCYTE % (test code = MO%) 11.6 % 4.8-9.0 H EOSINOPHIL % (test code = EO%) 2.4 % 0.3-3.7 N BASOPHIL % (test code = BA%) 0.3 % 0.0-2.0 N NUCLEATED RBC % (test code = 0.0 % 0-0 N NRBC%) NEUTROPHIL # (test code = NT#) 4.67 x10 3/uL 2.0-7.6 N IMMATURE GRANULOCYTE # (test 0.02 x10 3/uL 0.00-0.03 N code = IG#) LYMPHOCYTE # (test code = LY#) 2.88 x10 3/uL 1.0-3.8 N MONOCYTE # (test code = MO#) 1.02 x10 3/uL 0.1-0.8 H EOSINOPHIL # (test code = EO#) 0.21 x10 3/uL 0.0-0.2 H BASOPHIL # (test code = BA#) 0.03 x10 3/uL 0.0-0.2 N NUCLEATED RBC # (test code = 0.00 x10 3/uL 0.0-0.1 N NRBC#) MANUAL DIFF REQUIRED (test code NO = MDIFF) RBC [id number] 08:04:00 Test Item Value Reference Range Interpretation Comments ANISOCYTOSIS (test code = ANISO) CBC W/AUTO [id number] 08:04:00 Test Item Value Reference Range Interpretation Comments WHITE BLOOD CELL (test code = 8.83 x10 3/uL 4.5-11.0 N WBC) RED BLOOD CELL (test code = 4.06 x10 6/uL 4.00-5.60 N RBC) HEMOGLOBIN (test code = HGB) 10.3 g/dL 12.5-16.9 L HEMATOCRIT (test code = HCT) 35.5 % 37.5-50.7 L MEAN CELL VOLUME (test code = 87.4 fL 81.0-99.0 N MCV) MEAN CELL HGB (test code = MCH) 25.4 pg 27.0-33.0 L MEAN CELL HGB CONCETRATION 29.0 g/dL 33.0-37.0 L (test code = MCHC) RED CELL DISTRIBUTION WIDTH CV 25.1 % 11.5-14.5 H (test code = RDW) RED CELL DISTRIBUTION WIDTH SD 78.3 fL 37.0-54.0 H (test code = RDW-SD) PLATELET COUNT (test code = 337 x10 3/uL 150-400 N PLT) MEAN PLATELET VOLUME (test code 9.4 fL 7.0-9.0 H = MPV) NEUTROPHIL % (test code = NT%) 52.9 % 56.0-77.0 L IMMATURE GRANULOCYTE % (test 0.2 % 0.0-2.0 N code = IG%) LYMPHOCYTE % (test code = LY%) 32.6 % 14.0-32.0 H MONOCYTE % (test code = MO%) 11.6 % 4.8-9.0 H EOSINOPHIL % (test code = EO%) 2.4 % 0.3-3.7 N BASOPHIL % (test code = BA%) 0.3 % 0.0-2.0 N NUCLEATED RBC % (test code = 0.0 % 0-0 N NRBC%) NEUTROPHIL # (test code = NT#) 4.67 x10 3/uL 2.0-7.6 N IMMATURE GRANULOCYTE # (test 0.02 x10 3/uL 0.00-0.03 N code = IG#) LYMPHOCYTE # (test code = LY#) 2.88 x10 3/uL 1.0-3.8 N MONOCYTE # (test code = MO#) 1.02 x10 3/uL 0.1-0.8 H EOSINOPHIL # (test code = EO#) 0.21 x10 3/uL 0.0-0.2 H BASOPHIL # (test code = BA#) 0.03 x10 3/uL 0.0-0.2 N NUCLEATED RBC # (test code = 0.00 x10 3/uL 0.0-0.1 N NRBC#) MANUAL DIFF REQUIRED (test code NO = MDIFF) RBC [id number] 08:04:00 Test Item Value Reference Range Interpretation Comments ANISOCYTOSIS (test code = ANISO) BASIC METABOLIC [id number] 07:53:00 Test Item Value Reference Range Interpretation Comments SODIUM (test code = NA) 141 mEq/L 134-147 N POTASSIUM (test code = 3.8 mEq/L 3.4-5.0 N K) CHLORIDE (test code = 107 mEq/L 100-108 N CL) CARBON DIOXIDE (test 27 mEq/L 21-33 N code = CO2) ANION GAP (test code = 11 0-20 N GAP) GLUCOSE (test code = 107 mg/dL 70-110 N GLU) BLOOD UREA NITROGEN 23 mg/dL 7-18 H (test code = BUN) GLOMERULAR FILTRATION 90.4 95-105 L Units of measure = RATE (test code = GFR) ml/mi n/1.73 m2 CREATININE (test code = 0.9 mg/dL 0.6-1.3 N CREAT) CALCIUM (test code = 8.1 mg/dL 8.0-10.5 N CA) [id number] 19:54:00 Test Item Value Reference Range Interpretation Comments TROPONIN-I < 0.015 ng/mL 0.000-0.045 N Negative: <= (test code = 0.045 Positive: TROPI) >= 0.046 Correl ation with serial results, other cardiac markers andclinical findings is nec essary to determine the clinicalsignifi cance of this result. Results using different metho dologies should not be c omparedto one another as bindu titative results may nicky y by method. BASIC METABOLIC [id number] 17:16:00 Test Item Value Reference Range Interpretation Comments SODIUM (test code = NA) 141 mEq/L 134-147 N POTASSIUM (test code = 3.8 mEq/L 3.4-5.0 N K) CHLORIDE (test code = 105 mEq/L 100-108 N CL) CARBON DIOXIDE (test 29 mEq/L 21-33 N code = CO2) ANION GAP (test code = 11 0-20 N GAP) GLUCOSE (test code = 127 mg/dL 70-110 H GLU) BLOOD UREA NITROGEN 14 mg/dL 7-18 N (test code = BUN) GLOMERULAR FILTRATION 80.1 95-105 L Units of measure = RATE (test code = GFR) ml/mi n/1.73 m2 CREATININE (test code = 1.0 mg/dL 0.6-1.3 N CREAT) CALCIUM (test code = 8.6 mg/dL 8.0-10.5 N CA) [id number] 17:16:00 Test Item Value Reference Range Interpretation Comments TROPONIN-I < 0.015 ng/mL 0.000-0.045 N Negative: <= (test code = 0.045 Positive: TROPI) >= 0.046 Correl ation with serial results, other cardiac markers andclinical findings is nec essary to determine the clinicalsignifi cance of this result. Results using different metho dologies should not be c omparedto one another as bindu titative results may nicky y by method. CT PE PROTOCOL *OW*2018-10-24 07:44:23CT chest with contrast (PE protocol)HISTORY: Chest painCOMMENT: Multidetector slices through the chest were obtained during contrastadministration for evaluation of the pulmonary arteries for pulmonaryembolus.Coronal and axial reconstructions were performed and evaluated.Dose lowering technique with automatic exposure control utilized. DLP: 807mGy-cmThere is good opacification of the pulmonary [...] intrathoracic findings.3. 7 mm left upper pole calculus. BRAIN NATRIURETIC PROTEIN OW2018-10-24 06:56:00 Test Item Value Reference Range Interpretation Comments BNP (test code = OBNP) <15 pg/mL 0-50 TROPONIN I i-STAT OW2018-10-24 06:45:00 Test Item Value Reference Range Interpretation Comments TROPONIN I (test code = A84) 0.000 ng/mL 0.000-0.045 CHEM8+ i-STAT OW2018-10-24 06:28:00 Test Item Value Reference Range Interpretation Comments SODIUM (test code = BHARGAV) 140 mmol/L 138-146 POTASSIUM (test code = KI) 3.4 mmol/L 3.5-4.9 L CHLORIDE (test code = CLI) 106 mmol/L 98-109 CA IONIZED (test code = ICAI) 1.19 mmol/L 1.12-1.32 GLUCOSE (test code = GLUI) 224 mg/dL 75-100 H TCO2 (test code = TCO2) 20 mmol/L 24-29 L BUN (test code = BUN1) 14 mg/dL 8-26 CREATININE (test code = CREAI) 0.8 mg/dL 0.6-1.3 ANION GAP (test code = GANG) 18.0 mmol/L HGB (test code = MHB) 12.6 g/dL 12.0-17.0 HCT (test code = MHCT) 37.0 % 38.0-51.0 L CBC (INCLUDES AUTOMATED DIFFERENTIAL) *2018-10-24 06:24:00 Test Item Value Reference Range Interpretation Comments WBC (test code = WBC) 8.3 10\\S\\3/uL 4.5-11.0 RBC (test code = RBC) 4.61 10\\S\\6/uL 4.20-5.60 HGB (test code = HBG) 11.5 g/dL 14.0-18.0 L HCT (test code = HCT) 36.1 % 35.0-46.0 MCV (test code = MCV) 78.2 fL 80.0-94.0 L MCH (test code = MCH) 24.9 pg 27.0-31.0 L MCHC (test code = MCHC) 31.9 g/dL 32.0-36.0 L RDW (test code = RDW) 21.7 % 11.5-14.5 H PLT (test code = PLT) 382 10\\S\\3/uL 130-400 MPV (test code = OMPV) 7.2 fL 6.2-10.2 NEUTROP # (test code = NE#) 4.7 10\\S\\3/uL 2.0-8.0 LYMPH # (test code = LY#) 2.8 10\\S\\3/uL 1.2-4.0 MID # (test code = GMID#) 0.8 10\\S\\3/uL 0.0-1.1 GRA % (test code = GRA%) 57.0 % 35.0-73.0 LYMPH % (test code = GLY%) 33.6 % 20.0-55.0 MID % (test code = GMID%) 9.4 % 0.0-10.0 PROTHROMBIN TIME i-STAT OW2018-10-24 06:24:00 Test Item Value Reference Range Interpretation Comments PT (test code = 13.0 s 10.0-13.0 PT1) INR (test code = 1.1 INR) INRH (test code = SUGGESTED INRH) THERAPEUTIC RANGE FOR INR: 2.5 - 3.5 For Patients with Prosthetic Valves or Patients with recurrent Thromboembolic Events 2.0 - 3.0 For Most Other Applications LIPID [id number] 06:49:00 Test Item Value Reference Range Interpretation Comments TRIGLYCERIDES (BEAKER) (test code = 93 mg/dL 540) CHOLESTEROL (BEAKER) (test code = 235 mg/dL 631) HDL CHOLESTEROL (BEAKER) (test code 44 mg/dL = 976) LDL CHOLESTEROL CALCULATED (BEAKER) 172 mg/dL (test code = 633) Triglyceride Reference Range: Low Risk <150 Borderline 150-199 High Risk 200-499 Very High Risk >=500Cholesterol Reference Range: Low Risk <200 Borderline 200-239 High Risk >240HDL Cholesterol Reference Range: Low Risk >=60 High Risk <40LDL Cholesterol Reference Range: Optimal <100 Near Optimal 100-129 Borderline 130-159 High 160-189 Very High >=190BASIC METABOLIC [id number] 06:48:00 Test Item Value Reference Range Interpretation Comments SODIUM (BEAKER) 139 meq/L 135-148 (test code = 381) POTASSIUM (BEAKER) 3.9 meq/L 3.6-5.5 (test code = 379) CHLORIDE (BEAKER) 107 meq/L 98-106 H (test code = 382) CO2 (BEAKER) (test 21 meq/L 20-29 code = 355) BLOOD UREA NITROGEN 17 mg/dL 10-26 (BEAKER) (test code = 354) CREATININE (BEAKER) 0.89 mg/dL 0.50-1.20 (test code = 358) GLUCOSE RANDOM 89 mg/dL 70-110 (BEAKER) (test code = 652) CALCIUM (BEAKER) 9.3 mg/dL 8.5-10.5 (test code = 697) EGFR (BEAKER) (test 92 mL/min/1.73 ESTIMA NEIL GFR IS code = 1092) sq m NOT ACCURATE CREATININE CLEARANCE IN PREDICTING GLOMERULAR FILTRATION RATE . ESTIMATED GFR I S NOT APPLICABLE FOR DIALYSIS PATIEN TS. [id number] 06:47:00 Test Item Value Reference Range Interpretation Comments PHOSPHORUS (BEAKER) (test code = 3.1 mg/dL 2.5-4.5 604) TROPONIN [id number] 06:42:00 Test Item Value Reference Range Interpretation Comments TROPONIN I (BEAKER) (test code = 397) < ng/mL 0.00-0.15 Troponin I (TnI) levels [...] failure, acidosis, acute neurological disease, and persistent tachyarrhythmia.[id number] 06:42:00 Test Item Value Reference Range Interpretation Comments MAGNESIUM (BEAKER) (test code = 2.3 mg/dL 1.5-3.0 627) CBC W/PLT COUNT & AUTO [id number] 06:32:00 Test Item Value Reference Range Interpretation Comments WHITE BLOOD CELL COUNT (BEAKER) 5.8 K/ L 4.0-10.0 (test code = 775) RED BLOOD CELL COUNT (BEAKER) 4.06 M/ L 4.20-5.80 L (test code = 761) HEMOGLOBIN (BEAKER) (test code = 8.8 GM/DL 13.0-16.8 L 410) HEMATOCRIT (BEAKER) (test code = 32.4 % 36.0-50.0 L 411) MEAN CORPUSCULAR VOLUME (BEAKER) 79.8 fL 82.0-99.0 L (test code = 753) MEAN CORPUSCULAR HEMOGLOBIN 21.7 pg 27.0-33.0 L (BEAKER) (test code = 751) MEAN CORPUSCULAR HEMOGLOBIN CONC 27.2 GM/DL 32.0-36.0 L (BEAKER) (test code = 752) RED CELL DISTRIBUTION WIDTH 18.9 % 12.0-15.0 H (BEAKER) (test code = 412) PLATELET COUNT (BEAKER) (test 340 K/CU MM 150-430 code = 756) MEAN PLATELET VOLUME (BEAKER) 9.3 fL 6.0-11.5 (test code = 754) NUCLEATED RED BLOOD CELLS 0 /100 WBC 0-0 (BEAKER) (test code = 413) NEUTROPHILS RELATIVE PERCENT 36 % (BEAKER) (test code = 429) LYMPHOCYTES RELATIVE PERCENT 47 % (BEAKER) (test code = 430) MONOCYTES RELATIVE PERCENT 13 % (BEAKER) (test code = 431) EOSINOPHILS RELATIVE PERCENT 3 % (BEAKER) (test code = 432) BASOPHILS RELATIVE PERCENT 1 % (BEAKER) (test code = 437) NEUTROPHILS ABSOLUTE COUNT 2.09 K/ L 1.80-8.00 (BEAKER) (test code = 670) LYMPHOCYTES ABSOLUTE COUNT 2.72 K/ L 1.48-4.50 (BEAKER) (test code = 414) MONOCYTES ABSOLUTE COUNT (BEAKER) 0.75 K/ L 0.00-1.30 (test code = 415) EOSINOPHILS ABSOLUTE COUNT 0.16 K/ L 0.00-0.50 (BEAKER) (test code = 416) BASOPHILS ABSOLUTE COUNT (BEAKER) 0.03 K/ L 0.00-0.20 (test code = 417) IMMATURE GRANULOCYTES-RELATIVE 0 % 0-0 PERCENT (BEAKER) (test code = 2801) [id number] 06:31:00 Test Item Value Reference Range Interpretation Comments PROTIME (BEAKER) (test code = 759) 10.3 sec 9.3-12.0 INR (BEAKER) (test code = 370) 0.9 <=5.9 PARTIAL THROMBOPLASTIN TIME (BEAKER) 21.9 sec 23.0-35.0 L (test code = 760) RECOMMENDED COUMADIN/WARFARIN INR THERAPY RANGESSTANDARD DOSE: 2.0 - 3.0 Includes: PROPHYLAXIS forvenous thrombosis, systemic embolization; TREATMENT for venous thrombosis and/or pulmonary embolus.HIGH RISK: Target INR is 2.5-3.5 for patients with mechanical heart valves.Final Information (Auto Output)Final Information (Auto Output)Final Information (Auto Output)CT PE [id number] 09:42:36CLINICAL HISTORY: Elevated the dimer.LOCATION: D4.FINDINGS: Following [...] and/or utilization of iterative reconstruction technique.BASIC METABOLIC [id number] 05:53:00 Test Item Value Reference Range Interpretation Comments GLUCOSE (test code = 06D) 120 mg/dL 75-100 H SODIUM (test code = 01A) 140 mmol/L 136-145 POTASSIUM (test code = 01B) 3.8 mmol/L 3.6-5.1 CHLORIDE (test code = 04A) 107 mmol/L 98-107 CO2 (test code = 02A) 27 mmol/L 22-32 ANION GAP (test code = ANG) 9.8 mmol/L BUN (test code = 05D) 20 mg/dL 7-18 H CREATININE (test code = 03E) 1.0 mg/dL 0.7-1.3 BUN/CREA (test code = BCR) 20 12-20 CALCIUM (test code = 09D) 8.3 mg/dL 8.3-9.5 PRO TIME AND [id number] 05:51:00 Test Item Value Reference Range Interpretation Comments PT (test code = 10.5 s 9.8-13.6 TT) INR (test code = 0.9 INR) INRH (test code = SUGGESTED INRH) THERAPEUTIC RANGE FOR INR: 2.5 - 3.5 For Patients with Prosthetic Valves or Patients with recurrent Thromboembolic Events 2.0 - 3.0 For Most Other Applications PTT (test code = 28.3 s 20.2-38.0 PTT) PTTH (test code = To monitor the PTTH) effectiveness of heparin, we offer the Anti-Xa (Heparin Assay). It can be used for either unfractionated or LMW Heparin. Order Code is ANTI-XA CBC (INCLUDES AUTOMATED DIFFERENTIAL)2018-09-15 05:38:00 Test Item Value Reference Range Interpretation Comments WBC (test code = WBC) 6.9 10\\S\\3/uL 4.5-11.0 RBC (test code = RBC) 3.50 10\\S\\6/uL 4.20-5.60 L HGB (test code = HBG) 7.9 g/dL 14.0-18.0 L HCT (test code = HCT) 26.9 % 35.0-46.0 L MCV (test code = MCV) 76.9 fL 80.0-94.0 L MCH (test code = MCH) 22.6 pg 27.0-31.0 L MCHC (test code = MCHC) 29.4 g/dL 32.0-36.0 L RDW (test code = RDW) 18.8 % 11.5-14.5 H PLT (test code = PLT) 314 10\\S\\3/uL 130-400 MPV (test code = MPV) 9.0 fL 9.4-12.4 L NEUTROP # (test code = NE#) 3.4 10\\S\\3/uL 2.0-8.0 LYMPH # (test code = LY#) 2.3 10\\S\\3/uL 1.2-4.0 MONOCYTE # (test code = MO#) 0.9 10\\S\\3/uL 0.0-1.1 EOSINOPH # (test code = EO#) 0.3 10\\S\\3/uL 0.0-0.7 BASOPHIL # (test code = BA#) 0.0 10\\S\\3/uL 0.0-0.3 IG # (test code = IG#) 0.01 10\\S\\3/uL 0.00-0.06 NRBC # (test code = NRBC#) 0.00 10\\S\\3/uL 0.00-0.01 NEUTROPH % (test code = NE%) 48.9 % 35.0-73.0 LYMPH % (test code = LY%) 32.9 % 20.0-55.0 MONO % (test code = MO%) 13.0 % 2.5-10.0 H EOSINOPH % (test code = EO%) 4.5 % 0.0-5.0 BASOPHIL % (test code = BA%) 0.6 % 0.0-2.0 IG % (test code = IG%) 0.1 % 0.0-0.8 NRBC% (test code = NRBC%) 0.0 % 0.0-0.2 MANDIFF (test code = MDIFF) NO NO RBC MORPH (test code = RBCMOR) NORMAL CARDIAC [id number] 22:13:00 Test Item Value Reference Range Interpretation Comments TROPONIN I (test code = A84) <0.015 ng/mL 0.000-0.045 CARDIAC [id number] 15:31:00 Test Item Value Reference Range Interpretation Comments TROPONIN I (test code = A84) <0.015 ng/mL 0.000-0.045 CBC W/PLT COUNT & AUTO [id number] 09:31:00 Test Item Value Reference Range Interpretation Comments WHITE BLOOD CELL COUNT (BEAKER) 4.9 K/ L 4.0-10.0 (test code = 775) RED BLOOD CELL COUNT (BEAKER) 3.69 M/ L 4.20-5.80 L (test code = 761) HEMOGLOBIN (BEAKER) (test code = 8.5 GM/DL 13.0-16.8 L 410) HEMATOCRIT (BEAKER) (test code = 28.7 % 36.0-50.0 L 411) MEAN CORPUSCULAR VOLUME (BEAKER) 77.8 fL 82.0-99.0 L (test code = 753) MEAN CORPUSCULAR HEMOGLOBIN 23.0 pg 27.0-33.0 L (BEAKER) (test code = 751) MEAN CORPUSCULAR HEMOGLOBIN CONC 29.6 GM/DL 32.0-36.0 L (BEAKER) (test code = 752) RED CELL DISTRIBUTION WIDTH 18.6 % 12.0-15.0 H (BEAKER) (test code = 412) PLATELET COUNT (BEAKER) (test 305 K/CU MM 150-430 code = 756) MEAN PLATELET VOLUME (BEAKER) 9.1 fL 6.0-11.5 (test code = 754) NUCLEATED RED BLOOD CELLS 0 /100 WBC 0-0 (BEAKER) (test code = 413) (MANUAL DIFFERENTIAL)2018-09-03 09:31:00 Test Item Value Reference Range Interpretation Comments NEUTROPHILS - REL (DIFF) (BEAKER) 39 % (test code = 1359) LYMPHOCYTES - REL (DIFF) (BEAKER) 44 % (test code = 1360) MONOCYTES - REL (DIFF) (BEAKER) 13 % (test code = 1361) EOSINOPHILS - REL (DIFF) (BEAKER) 4 % (test code = 1362) NEUTROPHILS - ABS (DIFF) (BEAKER) 1.91 K/ L 1.80-8.00 (test code = 1365) LYMPHOCYTES - ABS (DIFF) (BEAKER) 2.16 K/ L 1.48-4.50 (test code = 1366) MONOCYTES - ABS (DIFF) (BEAKER) 0.64 K/ L 0.00-1.30 (test code = 1367) EOSINOPHILS - ABS (DIFF) (BEAKER) 0.20 K/ L 0.00-0.50 (test code = 1368) TOTAL COUNTED (BEAKER) (test code = 100 1351) WBC MORPHOLOGY (BEAKER) (test code Normal = 487) RBC MORPHOLOGY (BEAKER) (test code Normal = 762) LARGE PLT(BEAKER) (test code = Present 2156) BASIC METABOLIC [id number] 05:01:00 Test Item Value Reference Range Interpretation Comments SODIUM (BEAKER) 138 meq/L 135-148 (test code = 381) POTASSIUM (BEAKER) 3.5 meq/L 3.6-5.5 L (test code = 379) CHLORIDE (BEAKER) 106 meq/L 98-106 (test code = 382) CO2 (BEAKER) (test 24 meq/L 20-29 code = 355) BLOOD UREA NITROGEN 13 mg/dL 10-26 (BEAKER) (test code = 354) CREATININE (BEAKER) 0.94 mg/dL 0.50-1.20 (test code = 358) GLUCOSE RANDOM 121 mg/dL 70-110 H (BEAKER) (test code = 652) CALCIUM (BEAKER) 8.3 mg/dL 8.5-10.5 L (test code = 697) EGFR (BEAKER) (test 86 mL/min/1.73 ESTIMA NEIL GFR IS code = 1092) sq m NOT ACCURATE CREATININE CLEARANCE IN PREDICTING GLOMERULAR FILTRATION RATE . ESTIMATED GFR I S NOT APPLICABLE FOR DIALYSIS PATISARAVANAN TS. LIPID [id number] 05:01:00 Test Item Value Reference Range Interpretation Comments TRIGLYCERIDES (BEAKER) (test code = 122 mg/dL 540) CHOLESTEROL (BEAKER) (test code = 201 mg/dL 631) HDL CHOLESTEROL (BEAKER) (test code 39 mg/dL = 976) LDL CHOLESTEROL CALCULATED (BEAKER) 138 mg/dL (test code = 633) Triglyceride Reference Range: Low Risk <150 Borderline 150-199 High Risk 200-499 Very High Risk >=500Cholesterol Reference Range: Low Risk <200 Borderline 200-239 High Risk >240HDL Cholesterol Reference Range: Low Risk >=60 High Risk <40LDL Cholesterol Reference Range: Optimal <100 Near Optimal 100-129 Borderline 130-159 High 160-189 Very High >=190TROPONIN [id number] 04:51:00 Test Item Value Reference Range Interpretation Comments TROPONIN I (BEAKER) (test code = 397) < ng/mL 0.00-0.15 HEMOGLOBIN [id number] 04:43:00 Test Item Value Reference Range Interpretation Comments HEMOGLOBIN A1C (BEAKER) (test code = 5.7 % 4.3-6.1 368) CBC W/PLT COUNT & AUTO [id number] 04:21:00 Test Item Value Reference Range Interpretation Comments WHITE BLOOD CELL COUNT (BEAKER) 6.8 K/ L 4.0-10.0 (test code = 775) RED BLOOD CELL COUNT (BEAKER) 2.91 M/ L 4.20-5.80 L (test code = 761) HEMOGLOBIN (BEAKER) (test code = 6.7 GM/DL 13.0-16.8 L 410) HEMATOCRIT (BEAKER) (test code = 22.8 % 36.0-50.0 L 411) MEAN CORPUSCULAR VOLUME (BEAKER) 78.4 fL 82.0-99.0 L (test code = 753) MEAN CORPUSCULAR HEMOGLOBIN 23.0 pg 27.0-33.0 L (BEAKER) (test code = 751) MEAN CORPUSCULAR HEMOGLOBIN CONC 29.4 GM/DL 32.0-36.0 L (BEAKER) (test code = 752) RED CELL DISTRIBUTION WIDTH 18.4 % 12.0-15.0 H (BEAKER) (test code = 412) PLATELET COUNT (BEAKER) (test 343 K/CU MM 150-430 code = 756) MEAN PLATELET VOLUME (BEAKER) 9.7 fL 6.0-11.5 (test code = 754) NUCLEATED RED BLOOD CELLS 0 /100 WBC 0-0 (BEAKER) (test code = 413) NEUTROPHILS RELATIVE PERCENT 38 % (BEAKER) (test code = 429) LYMPHOCYTES RELATIVE PERCENT 36 % (BEAKER) (test code = 430) MONOCYTES RELATIVE PERCENT 22 % (BEAKER) (test code = 431) EOSINOPHILS RELATIVE PERCENT 4 % (BEAKER) (test code = 432) BASOPHILS RELATIVE PERCENT 0 % (BEAKER) (test code = 437) NEUTROPHILS ABSOLUTE COUNT 2.58 K/ L 1.80-8.00 (BEAKER) (test code = 670) LYMPHOCYTES ABSOLUTE COUNT 2.45 K/ L 1.48-4.50 (BEAKER) (test code = 414) MONOCYTES ABSOLUTE COUNT (BEAKER) 1.48 K/ L 0.00-1.30 H (test code = 415) EOSINOPHILS ABSOLUTE COUNT 0.26 K/ L 0.00-0.50 (BEAKER) (test code = 416) BASOPHILS ABSOLUTE COUNT (BEAKER) 0.01 K/ L 0.00-0.20 (test code = 417) IMMATURE GRANULOCYTES-RELATIVE 0 % 0-0 PERCENT (BEAKER) (test code = 2801) [facility] [id number] 15:35:00 Test Item Value Reference Range Interpretation Comments TROPONIN I (BEAKER) (test code = 397) < ng/mL 0.00-0.15 CT, CHEST WITH IV CONTRAST- PE TEST [id number] 08:14:00Reason for exam:- >CHEST PAINWhat is the patient's sedation requirement?->No SedationFINAL REPORT INDICATION: 48-year-old male with chest pain. Evaluate for pulmonary embolism. COMPARISON:Chest radiograph September 02, 2018Chest CT PE protocol May 24, 2018 TECHNIQUE: Chest CT exam WITH intravenous contrast, PE protocol. The exam was performed according to our [facility] dose-optimization protocol, which includes automated exposure control, adjustments of mA and kV according to patient size. Iterative reconstructions are also sometimes employed. FINDINGS:Right lateral basal segmental embolus (axial image 100) [...] new pulmonary embolism. No pulmonary infarct. Signed: Braulio De Leon MDReport Verified Date/Time: 09/02/2018 08:14:32 Reading Location: [facility] Diagnostic Imaging Reading Room - [place] [address] BASIC METABOLIC [id number] 07:38:00 Test Item Value Reference Range Interpretation Comments SODIUM (BEAKER) 134 meq/L 135-148 L (test code = 381) POTASSIUM (BEAKER) 3.2 meq/L 3.6-5.5 L (test code = 379) CHLORIDE (BEAKER) 102 meq/L 98-106 (test code = 382) CO2 (BEAKER) (test 17 meq/L 20-29 L code = 355) BLOOD UREA NITROGEN 9 mg/dL 10-26 L (BEAKER) (test code = 354) CREATININE (BEAKER) 1.20 mg/dL 0.50-1.20 (test code = 358) GLUCOSE RANDOM 224 mg/dL 70-110 H (BEAKER) (test code = 652) CALCIUM (BEAKER) 9.0 mg/dL 8.5-10.5 (test code = 697) EGFR (BEAKER) (test 65 mL/min/1.73 ESTIMA NEIL GFR IS code = 1092) sq m NOT ACCURATE CREATININE CLEARANCE IN PREDICTING GLOMERULAR FILTRATION RATE . ESTIMATED GFR I S NOT APPLICABLE FOR DIALYSIS PATIEN TS. PT/[id number] 07:33:00 Test Item Value Reference Range Interpretation Comments PROTIME (BEAKER) (test code = 759) 11.5 sec 9.3-12.0 INR (BEAKER) (test code = 370) 1.1 <=5.9 PARTIAL THROMBOPLASTIN TIME 139.2 sec 23.0-35.0 HH (BEAKER) (test code = 760) RECOMMENDED COUMADIN/WARFARIN INR THERAPY RANGESSTANDARD DOSE: 2.0 - 3.0 Includes: PROPHYLAXIS forvenous thrombosis, systemic embolization; TREATMENT for venous thrombosis and/or pulmonary embolus.HIGH RISK: Target INR is 2.5-3.5 for patients with mechanical heart valves.Final Information (Auto Output)Final Information (Auto Output)Final Information (Auto Output)TROPONIN [id number] 07:29:00 Test Item Value Reference Range Interpretation Comments TROPONIN I (BEAKER) (test code = 397) < ng/mL 0.00-0.15 B-TYPE NATRIURETIC FACTOR (BNP)2018-09-02 07:25:00 Test Item Value Reference Range Interpretation Comments B-TYPE NATRIURETIC PEPTIDE (BEAKER) 150 pg/mL 0-100 H (test code = 700) [id number] 07:14:00 Test Item Value Reference Range Interpretation Comments MAGNESIUM (BEAKER) (test code = 2.2 mg/dL 1.5-3.0 627) RAD, CHEST, 1 VIEW, NON [id number] 07:10:00Reason for exam:->CHEST PAIN FINAL REPORT Chest one view. Clinical history: [...] Impression: No focal pulmonary consolidation. Signed: Dennis Cevalloseport Verified Date/Time: 09/02/2018 07:10:11 Reading Location: [facility] [id number] CT Body Reading Room CBC W/PLT COUNT & AUTO [id number] 07:03:00 Test Item Value Reference Range Interpretation Comments WHITE BLOOD CELL COUNT (BEAKER) 9.7 K/ L 4.0-10.0 (test code = 775) RED BLOOD CELL COUNT (BEAKER) 4.18 M/ L 4.20-5.80 L (test code = 761) HEMOGLOBIN (BEAKER) (test code = 9.8 GM/DL 13.0-16.8 L 410) HEMATOCRIT (BEAKER) (test code = 32.6 % 36.0-50.0 L 411) MEAN CORPUSCULAR VOLUME (BEAKER) 78.0 fL 82.0-99.0 L (test code = 753) MEAN CORPUSCULAR HEMOGLOBIN 23.4 pg 27.0-33.0 L (BEAKER) (test code = 751) MEAN CORPUSCULAR HEMOGLOBIN CONC 30.1 GM/DL 32.0-36.0 L (BEAKER) (test code = 752) RED CELL DISTRIBUTION WIDTH 18.4 % 12.0-15.0 H (BEAKER) (test code = 412) PLATELET COUNT (BEAKER) (test 354 K/CU MM 150-430 code = 756) MEAN PLATELET VOLUME (BEAKER) 9.6 fL 6.0-11.5 (test code = 754) NUCLEATED RED BLOOD CELLS 0 /100 WBC 0-0 (BEAKER) (test code = 413) NEUTROPHILS RELATIVE PERCENT 62 % (BEAKER) (test code = 429) LYMPHOCYTES RELATIVE PERCENT 26 % (BEAKER) (test code = 430) MONOCYTES RELATIVE PERCENT 10 % (BEAKER) (test code = 431) EOSINOPHILS RELATIVE PERCENT 1 % (BEAKER) (test code = 432) BASOPHILS RELATIVE PERCENT 0 % (BEAKER) (test code = 437) NEUTROPHILS ABSOLUTE COUNT 6.00 K/ L 1.80-8.00 (BEAKER) (test code = 670) LYMPHOCYTES ABSOLUTE COUNT 2.51 K/ L 1.48-4.50 (BEAKER) (test code = 414) MONOCYTES ABSOLUTE COUNT (BEAKER) 0.99 K/ L 0.00-1.30 (test code = 415) EOSINOPHILS ABSOLUTE COUNT 0.13 K/ L 0.00-0.50 (BEAKER) (test code = 416) BASOPHILS ABSOLUTE COUNT (BEAKER) 0.02 K/ L 0.00-0.20 (test code = 417) IMMATURE GRANULOCYTES-RELATIVE 0 % 0-0 PERCENT (BEAKER) (test code = 2801) CARDIAC PROFILE 2018-07-31 05:25:00 Test Item Value Reference Range Interpretation Comments TROPONIN I (test code = A84) <0.015 ng/mL 0.000-0.045 CBC (INCLUDES AUTOMATED DIFFERENTIAL)*[id number] 01:33:00 Test Item Value Reference Range Interpretation Comments WBC (test code = WBC) 9.4 10\\S\\3/uL 4.5-11.0 RBC (test code = RBC) 4.40 10\\S\\6/uL 4.20-5.60 HGB (test code = HBG) 10.7 g/dL 14.0-18.0 L HCT (test code = HCT) 34.3 % 35.0-46.0 L MCV (test code = MCV) 78.0 fL 80.0-94.0 L MCH (test code = MCH) 24.3 pg 27.0-31.0 L MCHC (test code = MCHC) 31.2 g/dL 32.0-36.0 L RDW (test code = RDW) 17.0 % 11.5-14.5 H PLT (test code = PLT) 367 10\\S\\3/uL 130-400 MPV (test code = MPV) 9.2 fL 9.4-12.4 L NEUTROP # (test code = NE#) 4.8 10\\S\\3/uL 2.0-8.0 LYMPH # (test code = LY#) 3.1 10\\S\\3/uL 1.2-4.0 MONOCYTE # (test code = MO#) 1.2 10\\S\\3/uL 0.0-1.1 H EOSINOPH # (test code = EO#) 0.2 10\\S\\3/uL 0.0-0.7 BASOPHIL # (test code = BA#) 0.0 10\\S\\3/uL 0.0-0.3 IG # (test code = IG#) 0.02 10\\S\\3/uL 0.00-0.06 NRBC # (test code = NRBC#) 0.00 10\\S\\3/uL 0.00-0.01 NEUTROPH % (test code = NE%) 51.3 % 35.0-73.0 LYMPH % (test code = LY%) 32.9 % 20.0-55.0 MONO % (test code = MO%) 12.7 % 2.5-10.0 H EOSINOPH % (test code = EO%) 2.5 % 0.0-5.0 BASOPHIL % (test code = BA%) 0.4 % 0.0-2.0 IG % (test code = IG%) 0.2 % 0.0-0.8 NRBC% (test code = NRBC%) 0.0 % 0.0-0.2 MANDIFF (test code = WMDIFF) NO NO RBC MORPH (test code = NORMAL WRBCMOR) URINALYSIS *WW*2018-07-31 01:28:00 Test Item Value Reference Range Interpretation Comments COLOR (test code = COLU) YELLOW YELLOW CLARITY (test code = CLA) CLEAR CLEAR GLUCOSE UR (test code = UA GLUCOSE) NEGATIVE NEGATIVE BILI UR (test code = BILE) NEGATIVE NEGATIVE KETONES UR (test code = CALI) NEGATIVE NEGATIVE SP GRAVITY (test code = SPGR) 1.010 1.005-1.030 PH UR (test code = PH) 6.0 4.5-8.0 PROTEIN UR (test code = PU) NEGATIVE NEGATIVE UROBIL UR (test code = UROQ) 0.2 EU/dL 0.2-1.0 NITRITE UR (test code = NITRITE) NEGATIVE NEGATIVE BLOOD UR (test code = UA BLOOD) NEGATIVE NEGATIVE LEUK ES UR (test code = LEUK) NEGATIVE NEGATIVE AUAM (test code = WAUAM) NO NO DRUGS OF ABUSE *WW*2018-07-31 01:26:00 Test Item Value Reference Range Interpretation Comments DRUG SCRN (test code URINE DRUG SCREEN = HDOA) This is an unconfirmed screening result and should not be used for non-medical purposes CANNABINOD (test code Negative NEGATIVE = 88C) AMPHETAMINE (test Negative NEGATIVE code = 84A) BENZODIAZP (test code Negative NEGATIVE = 86A) BARBITURAT (test code Negative NEGATIVE = 85A) OPIATES (test code = Negative NEGATIVE 92B) COCAINE (test code = Negative NEGATIVE 87A) PHENCYCLID (test code Negative NEGATIVE = 66A) METHADONE (test code Negative NEGATIVE = 64A) DOAH (test code = URINE DRUG DOAH) CREEN CUT OFF VALUES Amphetamines 1000 ng/mL Barbituates 300 ng/mL Benzodiazepines 300 ng/mL Cocaine 300 ng/mL Opiates 300 ng/mL Phencyclidine 25 ng/mL THC 50 ng/mL Tricyclic Antidepressants 1000 ng/mL CARDIAC PROFILE *WW*2018-07-31 01:21:00 Test Item Value Reference Range Interpretation Comments TROPONIN I (test code = A84) <0.015 ng/mL 0.000-0.045 BASIC METABOLIC PANEL *WW*2018-07-31 01:18:00 Test Item Value Reference Range Interpretation Comments GLUCOSE (test code = 06D) 127 mg/dL 75-100 H SODIUM (test code = 01A) 137 mmol/L 136-145 POTASSIUM (test code = 01B) 3.2 mmol/L 3.6-5.1 L CHLORIDE (test code = 04A) 104 mmol/L 98-107 CO2 (test code = 02A) 21 mmol/L 22-32 L ANION GAP (test code = ANG) 15.4 mmol/L BUN (test code = 05D) 23 mg/dL 7-18 H CREATININE (test code = 03E) 1.4 mg/dL 0.7-1.3 H BUN/CREA (test code = BCR) 16 12-20 CALCIUM (test code = 09D) 8.6 mg/dL 8.3-9.5 THYROID PANEL/SCREEN (TSH) 2018-07-16 07:05:00 Test Item Value Reference Range Interpretation Comments TSH (test code = WTSH) 2.040 uIU/mL 0.358-3.740 BASIC METABOLIC PANEL 2018-07-16 06:46:00 Test Item Value Reference Range Interpretation Comments GLUCOSE (test code = 06D) 92 mg/dL 75-100 SODIUM (test code = 01A) 139 mmol/L 136-145 POTASSIUM (test code = 01B) 3.8 mmol/L 3.6-5.1 CHLORIDE (test code = 04A) 106 mmol/L 98-107 CO2 (test code = 02A) 26 mmol/L 22-32 ANION GAP (test code = ANG) 10.8 mmol/L BUN (test code = 05D) 21 mg/dL 7-18 H CREATININE (test code = 03E) 0.9 mg/dL 0.7-1.3 BUN/CREA (test code = BCR) 22 12-20 H CALCIUM (test code = 09D) 7.9 mg/dL 8.3-9.5 L CBC (INCLUDES AUTOMATED DIFFERENTIAL)*[id number] 06:34:00 Test Item Value Reference Range Interpretation Comments WBC (test code = WBC) 8.1 10\\S\\3/uL 4.5-11.0 RBC (test code = RBC) 3.41 10\\S\\6/uL 4.20-5.60 L HGB (test code = HBG) 8.5 g/dL 14.0-18.0 L HCT (test code = HCT) 27.2 % 35.0-46.0 L MCV (test code = MCV) 79.8 fL 80.0-94.0 L MCH (test code = MCH) 24.9 pg 27.0-31.0 L MCHC (test code = MCHC) 31.3 g/dL 32.0-36.0 L RDW (test code = RDW) 17.4 % 11.5-14.5 H PLT (test code = PLT) 278 10\\S\\3/uL 130-400 MPV (test code = MPV) 9.3 fL 9.4-12.4 L NEUTROP # (test code = NE#) 4.8 10\\S\\3/uL 2.0-8.0 LYMPH # (test code = LY#) 1.9 10\\S\\3/uL 1.2-4.0 MONOCYTE # (test code = MO#) 1.1 10\\S\\3/uL 0.0-1.1 EOSINOPH # (test code = EO#) 0.2 10\\S\\3/uL 0.0-0.7 BASOPHIL # (test code = BA#) 0.0 10\\S\\3/uL 0.0-0.3 IG # (test code = IG#) 0.02 10\\S\\3/uL 0.00-0.06 NRBC # (test code = NRBC#) 0.00 10\\S\\3/uL 0.00-0.01 NEUTROPH % (test code = NE%) 59.5 % 35.0-73.0 LYMPH % (test code = LY%) 24.0 % 20.0-55.0 MONO % (test code = MO%) 13.8 % 2.5-10.0 H EOSINOPH % (test code = EO%) 2.1 % 0.0-5.0 BASOPHIL % (test code = BA%) 0.4 % 0.0-2.0 IG % (test code = IG%) 0.2 % 0.0-0.8 NRBC% (test code = NRBC%) 0.0 % 0.0-0.2 MANDIFF (test code = WMDIFF) NO NO RBC MORPH (test code = NORMAL WRBCMOR) PRO TIME AND PTT *WW*2018-07-15 14:26:00 Test Item Value Reference Range Interpretation Comments PT (test code = 11.0 s 9.8-13.6 TT) INR (test code = 1.0 INR) INRH (test code = SUGGESTED INRH) THERAPEUTIC RANGE FOR INR: 2.5 - 3.5 For Patients with Prosthetic Valves or Patients with recurrent Thromboembolic Events 2.0 - 3.0 For Most Other Applications PTT (test code = 34.3 s 20.2-38.0 PTT) PTTH (test code = To monitor the PTTH) effectiveness of heparin, we offer the Anti-Xa (Heparin Assay). It can be used for either unfractionated or LMW Heparin. Order Code is ANTI-XA CARDIAC PROFILE 2018-07-15 14:07:00 Test Item Value Reference Range Interpretation Comments TROPONIN I (test code = A84) <0.015 ng/mL 0.000-0.045 CKMB (test code = A49) <1.0 ng/mL <=3.6 CPK (test code = 32A) 90 IU/L 39-308 CT PE PROTOCOL 2018-07-15 09:48:59CT CHEST WITH CONTRAST, PE PROTOCOL:Location code: [id number] HISTORY: Shortness of breath , chest pa inCOMPARISON: 12/16/17TECHNIQUE: Following the administration of a timed [...] IMPRESSION:1. Negative for PE2. No acute intrathoracic abnorm ality.BASIC METABOLIC PANEL 2018-07-15 09:09:00 Test Item Value Reference Range Interpretation Comments GLUCOSE (test code = 06D) 136 mg/dL 75-100 H SODIUM (test code = 01A) 140 mmol/L 136-145 POTASSIUM (test code = 01B) 3.2 mmol/L 3.6-5.1 L CHLORIDE (test code = 04A) 106 mmol/L 98-107 CO2 (test code = 02A) 22 mmol/L 22-32 ANION GAP (test code = ANG) 14.8 mmol/L BUN (test code = 05D) 18 mg/dL 7-18 CREATININE (test code = 03E) 1.0 mg/dL 0.7-1.3 BUN/CREA (test code = BCR) 17 12-20 CALCIUM (test code = 09D) 8.6 mg/dL 8.3-9.5 Arterial Blood [id number] 08:55:00 Test Item Value Reference Range Interpretation Comments pH (test code = PHRT) 7.412 7.350-7.450 pCO2 (test code = 36.2 mmHg 35.0-45.0 PCO2RT) pO2 (test code = 99.7 mmHg 80.0-110.0 PO2RT) HCO3? (test code = 22.6 mmol/L 22.0-26.0 HCO3) DARIO (test code = DARIO) -1.1 mmol/L -3.0-3.0 tHb (test code = 11.0 g/dL 14.0-18.0 L THBRT) sO2 (test code = 96.9 % 92.0-100.0 SO2RT) FO2Hb (test code = 94.7 % 94.0-100.0 DO7IIFH) FCOHb (test code = 1.2 % 0.0-3.0 FCOHBRT) FMetHb (test code = 1.1 % 0.2-0.6 H FMETHBRT) ABGTEMP (test code = * Temp Corrected Values* ABGTEMP) ABGTEMP (test code = 37.0 ?C ABGTEMP.) pH (T) (test code = 7.412 7.350-7.450 PHTEMP) pCO2 (T) (test code = 36.2 mmHg 35.0-45.0 [id number]) pO2 (T) (test code = 99.7 mmHg 80.0-110.0 JH1WXBF) Device (test code = ROOM AIR DEVICE) FI02 (test code = 21.0 % FI02) Liter_flow (test code = LF) VENPAR (test code = * Ventilator Parameters VENPAR) * SIMV (test code = SIMV) A/C (test code = A/C) CPAP (test code = CPAP) PEEP (test code = PEEP) PS (test code = PS) PIP (test code = PIP) I_Time (test code = ITIME) Vt (test code = VT) BIPAP INSP (test code = BIPAPINP) BIPAP EXP (test code = BIPAPEXP) Lakia test (test code Positive = ATEST) SAMPLE SITE (test Right Radial Artery code = SSITE) COMMENT (test code = CO) PTT(PARTIAL PLASMA THROBOPL *WW*2018-07-15 07:46:00 Test Item Value Reference Range Interpretation Comments PTT (test code = 80.8 s 20.2-38.0 HH PTT) PTTH (test code = To monitor the PTTH) effectiveness of heparin, we offer the Anti-Xa (Heparin Assay). It can be used for either unfractionated or LMW Heparin. Order Code is ANTI-XA CARDIAC PROFILE *WW*2018-07-15 07:45:00 Test Item Value Reference Range Interpretation Comments TROPONIN I (test code = A84) <0.015 ng/mL 0.000-0.045 CKMB (test code = A49) <1.0 ng/mL <=3.6 CPK (test code = 32A) 90 IU/L 39-308 PROTHROMBIN TIME *WW*2018-07-15 07:36:00 Test Item Value Reference Range Interpretation Comments PT (test code = 10.5 s 9.8-13.6 TT) INR (test code = 0.9 INR) INRH (test code = SUGGESTED INRH) THERAPEUTIC RANGE FOR INR: 2.5 - 3.5 For Patients with Prosthetic Valves or Patients with recurrent Thromboembolic Events 2.0 - 3.0 For Most Other Applications CBC (INCLUDES AUTOMATED DIFFERENTIAL)*[id number] 07:33:00 Test Item Value Reference Range Interpretation Comments WBC (test code = WBC) 9.4 10\\S\\3/uL 4.5-11.0 RBC (test code = RBC) 4.22 10\\S\\6/uL 4.20-5.60 HGB (test code = HBG) 10.4 g/dL 14.0-18.0 L HCT (test code = HCT) 33.4 % 35.0-46.0 L MCV (test code = MCV) 79.1 fL 80.0-94.0 L MCH (test code = MCH) 24.6 pg 27.0-31.0 L MCHC (test code = MCHC) 31.1 g/dL 32.0-36.0 L RDW (test code = RDW) 17.2 % 11.5-14.5 H PLT (test code = PLT) 347 10\\S\\3/uL 130-400 MPV (test code = MPV) 9.0 fL 9.4-12.4 L NEUTROP # (test code = NE#) 5.6 10\\S\\3/uL 2.0-8.0 LYMPH # (test code = LY#) 2.7 10\\S\\3/uL 1.2-4.0 MONOCYTE # (test code = MO#) 1.0 10\\S\\3/uL 0.0-1.1 EOSINOPH # (test code = EO#) 0.1 10\\S\\3/uL 0.0-0.7 BASOPHIL # (test code = BA#) 0.0 10\\S\\3/uL 0.0-0.3 IG # (test code = IG#) 0.02 10\\S\\3/uL 0.00-0.06 NRBC # (test code = NRBC#) 0.00 10\\S\\3/uL 0.00-0.01 NEUTROPH % (test code = NE%) 59.3 % 35.0-73.0 LYMPH % (test code = LY%) 28.1 % 20.0-55.0 MONO % (test code = MO%) 10.8 % 2.5-10.0 H EOSINOPH % (test code = EO%) 1.3 % 0.0-5.0 BASOPHIL % (test code = BA%) 0.3 % 0.0-2.0 IG % (test code = IG%) 0.2 % 0.0-0.8 NRBC% (test code = NRBC%) 0.0 % 0.0-0.2 MANDIFF (test code = WMDIFF) NO NO RBC MORPH (test code = NORMAL WRBCMOR) XR CHEST 1 VIEW PORTABLE *WW*2018-07-15 07:25:22Location: [id number], FRONTAL VIEW HISTORY: [id number]: Chest painCOMPARISON: Chest x-ray 388FINDINGS: The lungs are clear without consolidation. No pleural effusion or pneumothorax.The heart size is normal. Thebones are unremarkable. Right IJ Port-A-Cath isin the SVC.IMPRESSION:No evidence of acute cardiopulmonary disease.BLOOD [id number] 16:00:00 Test Item Value Reference Range Interpretation Comments CULTURE (BEAKER) (test No growth in 5 days code = 1095) BLOOD [id number] 16:00:00 Test Item Value Reference Range Interpretation Comments CULTURE (BEAKER) (test No growth in 5 days code = 1095) LACTIC ACID, VENOUS, WHOLE [id number] 14:43:00 Test Item Value Reference Range Interpretation Comments LACTATE BLOOD VENOUS (2) (BEAKER) 1.3 mmol/L 0.5-2.2 (test code = 2872) Effective 02/12/2016: Units/Reference Range ChangeNew: 0.5-2.2 mmol/L Previous: 5-18 mg/dLURINALYSIS W/ REFLEX URINE [id number] 14:17:00 Test Item Value Reference Range Interpretation Comments COLOR (BEAKER) (test code = Yellow 470) CLARITY (BEAKER) (test code = Clear 469) SPECIFIC GRAVITY UA (BEAKER) 1.010 1.001-1.035 (test code = 468) PH UA (BEAKER) (test code = 7.0 5.0-8.0 467) PROTEIN UA (BEAKER) (test code Negative Negative = 464) GLUCOSE UA (BEAKER) (test code Negative Negative = 365) KETONES UA (BEAKER) (test code Negative Negative = 371) BILIRUBIN UA (BEAKER) (test Negative Negative code = 462) BLOOD UA (BEAKER) (test code = Negative Negative 461) NITRITE UA (BEAKER) (test code Negative Negative = 465) LEUKOCYTE ESTERASE UA (BEAKER) Negative Negative (test code = 466) UROBILINOGEN UA (BEAKER) (test 0.2 mg/dL 0.2-1.0 code = 463) BACTERIA (BEAKER) (test code = None Seen 517) RBC UA-MANUAL (BEAKER) (test None Seen /HPF code = 1659) WBC UA-MANUAL (BEAKER) (test <5 /HPF code = 1661) SQUAMOUS EPITHELIAL MANUAL None Seen /HPF (BEAKER) (test code = 1663) SOURCE(BEAKER) (test code = 2795) CT, CHEST WITH IV CONTRAST- PE TEST [id number] 13:14:00Reason for exam:- >CHEST PAINReason for exam:->h/o recurrent PEsWhat is the [...] within normal limits. SOFT TISSUES AND BONES: Unre markable. UPPER ABDOMEN: Unchanged cortical calcification in the visualized left kidney. Prior cholecystectomy. IMPRESSION:Suspected new segmental pulmonary embolus on the left. Unchanged segmental pulmonary emboli on the right. Signed: Louis Pacheco MDReport Verified Date/Time: 05/24/2018 13:14:23 Reading Location: [address] Radiology Reading Room LACTIC ACID, VENOUS, WHOLE BLOOD 2018-05-24 11:37:00 Test Item Value Reference Range Interpretation Comments LACTATE BLOOD VENOUS (2) (BEAKER) 4.6 mmol/L 0.5-2.2 HH (test code = 2872) Effective 02/12/2016: Units/Reference Range ChangeNew: 0.5-2.2 mmol/L Previous: 5-18 mg/dLCBC W/PLT COUNT & AUTO [id number] 11:20:00 Test Item Value Reference Range Interpretation Comments WHITE BLOOD CELL COUNT (BEAKER) 9.8 K/ L 4.0-10.0 (test code = 775) RED BLOOD CELL COUNT (BEAKER) 4.15 M/ L 4.20-5.80 L (test code = 761) HEMOGLOBIN (BEAKER) (test code = 10.7 GM/DL 13.0-16.8 L 410) HEMATOCRIT (BEAKER) (test code = 33.6 % 40.0-50.0 L 411) MEAN CORPUSCULAR VOLUME (BEAKER) 80.8 fL 82.0-98.0 L (test code = 753) MEAN CORPUSCULAR HEMOGLOBIN 25.7 pg 27.0-33.0 L (BEAKER) (test code = 751) MEAN CORPUSCULAR HEMOGLOBIN CONC 31.8 GM/DL 32.0-36.0 L (BEAKER) (test code = 752) RED CELL DISTRIBUTION WIDTH 28.4 % 10.3-14.2 H (BEAKER) (test code = 412) PLATELET COUNT (BEAKER) (test 324 K/CU MM 150-430 code = 756) MEAN PLATELET VOLUME (BEAKER) 7.3 fL 6.5-10.5 (test code = 754) NUCLEATED RED BLOOD CELLS 0 /100 WBC 0-0 (BEAKER) (test code = 413) NEUTROPHILS RELATIVE PERCENT 75 % (BEAKER) (test code = 429) LYMPHOCYTES RELATIVE PERCENT 17 % (BEAKER) (test code = 430) MONOCYTES RELATIVE PERCENT 6 % (BEAKER) (test code = 431) EOSINOPHILS RELATIVE PERCENT 2 % (BEAKER) (test code = 432) BASOPHILS RELATIVE PERCENT 0 % (BEAKER) (test code = 437) NEUTROPHILS ABSOLUTE COUNT 7.30 K/ L 1.80-8.00 (BEAKER) (test code = 670) LYMPHOCYTES ABSOLUTE COUNT 1.70 K/ L 1.48-4.50 (BEAKER) (test code = 414) MONOCYTES ABSOLUTE COUNT (BEAKER) 0.60 K/ L 0.00-1.30 (test code = 415) EOSINOPHILS ABSOLUTE COUNT 0.20 K/ L 0.00-0.50 (BEAKER) (test code = 416) BASOPHILS ABSOLUTE COUNT (BEAKER) 0.00 K/ L 0.00-0.20 (test code = 417) (MANUAL DIFFERENTIAL)2018-05-24 11:20:00 Test Item Value Reference Range Interpretation Comments TOTAL COUNTED (BEAKER) (test code = 1351) WBC MORPHOLOGY (BEAKER) (test code = Normal 487) PLT MORPHOLOGY (BEAKER) (test code = Normal 486) ANISOCYTOSIS (BEAKER) (test code = 3+ many 961) HYPOCHROMIA (BEAKER) (test code = 3+ many 963) TROPONIN [id number] 11:12:00 Test Item Value Reference Range Interpretation Comments TROPONIN I (BEAKER) (test code = 397) < ng/mL 0.00-0.15 Troponin I (TnI) levels [...] and persistent tachyarrhythmia.CREATINE KINASE (CK), TOTAL AND MB 2018-05-24 11:11:00 Test Item Value Reference Range Interpretation Comments CREATINE KINASE TOTAL (BEAKER) 76 U/L 40-250 (test code = 380) CREATINE KINASE-MB (BEAKER) (test 1.2 ng/mL 0.0-4.9 code = 750) CREATINE KINASE-MB INDEX (BEAKER) 1.6 % (test code = 395) CK-MB Reference Range:<5 Normal5-10 Borderline>10 AbnormalHEPATIC FUNCTION [id number] 11:06:00 Test Item Value Reference Range Interpretation Comments TOTAL PROTEIN (BEAKER) (test code = 7.0 gm/dL 6.0-8.5 770) ALBUMIN (BEAKER) (test code = 1145) 4.3 g/dL 3.5-5.0 BILIRUBIN TOTAL (BEAKER) (test code 0.4 mg/dL 0.1-1.2 = 377) BILIRUBIN DIRECT (BEAKER) (test 0.2 mg/dL 0.0-0.4 code = 706) ALKALINE PHOSPHATASE (BEAKER) (test 70 U/L 30-115 code = 346) AST (SGOT) (BEAKER) (test code = 18 U/L 5-40 353) ALT (SGPT) (BEAKER) (test code = 13 U/L 5-50 347) BASIC METABOLIC [id number] 11:03:00 Test Item Value Reference Range Interpretation Comments SODIUM (BEAKER) 138 meq/L 135-148 (test code = 381) POTASSIUM (BEAKER) 3.6 meq/L 3.6-5.5 (test code = 379) CHLORIDE (BEAKER) 106 meq/L 98-106 (test code = 382) CO2 (BEAKER) (test 21 meq/L 20-29 code = 355) BLOOD UREA NITROGEN 11 mg/dL 10-26 (BEAKER) (test code = 354) CREATININE (BEAKER) 0.96 mg/dL 0.50-1.20 (test code = 358) GLUCOSE RANDOM 212 mg/dL 70-110 H (BEAKER) (test code = 652) CALCIUM (BEAKER) 9.4 mg/dL 8.5-10.5 (test code = 697) EGFR (BEAKER) (test 84 mL/min/1.73 ESTIMA NEIL GFR IS code = 1092) sq m NOT ACCURATE CREATININE CLEARANCE IN PREDICTING GLOMERULAR FILTRATION RATE . ESTIMATED GFR I S NOT APPLICABLE FOR DIALYSIS PATIEN TS. B-TYPE NATRIURETIC FACTOR (BNP)2018-05-24 11:02:00 Test Item Value Reference Range Interpretation Comments B-TYPE NATRIURETIC PEPTIDE (BEAKER) 8 pg/mL 0-100 (test code = 700) [id number] 10:53:00 Test Item Value Reference Range Interpretation Comments PROTIME (BEAKER) (test code = 759) 9.9 sec 9.3-12.0 INR (BEAKER) (test code = 370) 0.9 <=5.9 PARTIAL THROMBOPLASTIN TIME (BEAKER) 39.3 sec 23.0-35.0 H (test code = 760) RECOMMENDED COUMADIN/WARFARIN INR THERAPY RANGESSTANDARD DOSE: 2.0 - 3.0 Includes: PROPHYLAXIS forvenous thrombosis, systemic embolization; TREATMENT for venous thrombosis and/or pulmonary embolus.HIGH RISK: Target INR is 2.5-3.5 for patients with mechanical heart valves.Final Information (Auto Output)Final Information (Auto Output)Final Information (Auto Output)RAD, CHEST, 1 VIEW, NON [id number] 10:18:00Reason for exam:->CHEST PAINShould this be performed at the bedside?->YesFINAL REPORT Chest one view INDICATION: Chest pain COMPARISON: 09/27/2016 IMPRESSION: There is no focal consolidation, vascular congestion, pleural effusion, or pneumothorax. Heart size is within normal limits. Mild aortic tortuosity is noted. A right chest Port-A-Cath is in place. The bones appear intact. Signed: Vargas Evangelista [facility] Verified Date/Time: 05/24/2018 10:18:17 Reading Location: [facility] Radiology Reading Room CBC W/PLT COUNT & AUTO [id number] 08:55:00 Test Item Value Reference Range Interpretation Comments WHITE BLOOD CELL COUNT (BEAKER) 5.4 K/ L 4.0-10.0 (test code = 775) RED BLOOD CELL COUNT (BEAKER) 3.90 M/ L 4.20-5.80 L (test code = 761) HEMOGLOBIN (BEAKER) (test code = 9.2 GM/DL 13.0-16.8 L 410) HEMATOCRIT (BEAKER) (test code = 29.2 % 40.0-50.0 L 411) MEAN CORPUSCULAR VOLUME (BEAKER) 75.0 fL 82.0-98.0 L (test code = 753) MEAN CORPUSCULAR HEMOGLOBIN 23.7 pg 27.0-33.0 L (BEAKER) (test code = 751) MEAN CORPUSCULAR HEMOGLOBIN CONC 31.5 GM/DL 32.0-36.0 L (BEAKER) (test code = 752) RED CELL DISTRIBUTION WIDTH 26.3 % 10.3-14.2 H (BEAKER) (test code = 412) PLATELET COUNT (BEAKER) (test 338 K/CU MM 150-430 code = 756) MEAN PLATELET VOLUME (BEAKER) 7.9 fL 6.5-10.5 (test code = 754) (MANUAL DIFFERENTIAL)2018-04-26 08:55:00 Test Item Value Reference Range Interpretation Comments NEUTROPHILS - REL (DIFF) (BEAKER) 61 % (test code = 1359) LYMPHOCYTES - REL (DIFF) (BEAKER) 32 % (test code = 1360) MONOCYTES - REL (DIFF) (BEAKER) 5 % (test code = 1361) EOSINOPHILS - REL (DIFF) (BEAKER) 2 % (test code = 1362) NEUTROPHILS - ABS (DIFF) (BEAKER) 3.29 K/ L 1.80-8.00 (test code = 1365) LYMPHOCYTES - ABS (DIFF) (BEAKER) 1.73 K/ L 1.48-4.50 (test code = 1366) MONOCYTES - ABS (DIFF) (BEAKER) 0.27 K/ L 0.00-1.30 (test code = 1367) EOSINOPHILS - ABS (DIFF) (BEAKER) 0.11 K/ L 0.00-0.50 (test code = 1368) TOTAL COUNTED (BEAKER) (test code = 100 1351) WBC MORPHOLOGY (BEAKER) (test code Normal = 487) PLT MORPHOLOGY (BEAKER) (test code Normal = 486) ANISOCYTOSIS (BEAKER) (test code = 1+ few 961) HYPOCHROMIA (BEAKER) (test code = 3+ many 963) PROTHROMBIN TIME/[id number] 06:37:00 Test Item Value Reference Range Interpretation Comments PROTIME (BEAKER) (test code = 759) 21.9 sec 9.3-12.0 H INR (BEAKER) (test code = 370) 2.1 <=5.9 RECOMMENDED COUMADIN/WARFARIN INR THERAPY RANGESSTANDARD DOSE: 2.0 - 3.0 Includes: PROPHYLAXIS forvenous thrombosis, systemic embolization; TREATMENT for venous thrombosis and/or pulmonary embolus.HIGH RISK: Target INR is 2.5-3.5 for patients with mechanical heart valves.Final Information (Auto Output)Final Information (Auto Output)[id number] 04:49:00 Test Item Value Reference Range Interpretation Comments PARTIAL THROMBOPLASTIN TIME (BEAKER) > sec 23.0-35.0 HH (test code = 760) Final Information (Auto Output)[id number] 16:53:00 Test Item Value Reference Range Interpretation Comments PARTIAL THROMBOPLASTIN TIME (BEAKER) > sec 23.0-35.0 HH (test code = 760) Final Information (Auto Output)[id number] 06:08:00 Test Item Value Reference Range Interpretation Comments PARTIAL THROMBOPLASTIN TIME 116.2 sec 23.0-35.0 H (BEAKER) (test code = 760) Final Information (Auto Output)PROTHROMBIN TIME/[id number] 06:01:00 Test Item Value Reference Range Interpretation Comments PROTIME (BEAKER) (test code = 759) 15.9 sec 9.3-12.0 H INR (BEAKER) (test code = 370) 1.5 <=5.9 RECOMMENDED COUMADIN/WARFARIN INR THERAPY RANGESSTANDARD DOSE: 2.0 - 3.0 Includes: PROPHYLAXIS forvenous thrombosis, systemic embolization; TREATMENT for venous thrombosis and/or pulmonary embolus.HIGH RISK: Target INR is 2.5-3.5 for patients with mechanical heart valves.Final Information (Auto Output)Final Information (Auto Output)[id number] 19:40:00 Test Item Value Reference Range Interpretation Comments PARTIAL THROMBOPLASTIN TIME (BEAKER) 67.2 sec 23.0-35.0 H (test code = 760) Final Information (Auto Output)[id number] 10:46:00 Test Item Value Reference Range Interpretation Comments PARTIAL THROMBOPLASTIN TIME (BEAKER) 63.5 sec 23.0-35.0 H (test code = 760) Final Information (Auto Output)CBC W/PLT COUNT & AUTO [id number] 06:53:00 Test Item Value Reference Range Interpretation Comments WHITE BLOOD CELL COUNT (BEAKER) 6.3 K/ L 4.0-10.0 (test code = 775) RED BLOOD CELL COUNT (BEAKER) 3.98 M/ L 4.20-5.80 L (test code = 761) HEMOGLOBIN (BEAKER) (test code = 9.2 GM/DL 13.0-16.8 L 410) HEMATOCRIT (BEAKER) (test code = 29.6 % 40.0-50.0 L 411) MEAN CORPUSCULAR VOLUME (BEAKER) 74.3 fL 82.0-98.0 L (test code = 753) MEAN CORPUSCULAR HEMOGLOBIN 23.1 pg 27.0-33.0 L (BEAKER) (test code = 751) MEAN CORPUSCULAR HEMOGLOBIN CONC 31.1 GM/DL 32.0-36.0 L (BEAKER) (test code = 752) RED CELL DISTRIBUTION WIDTH 23.2 % 10.3-14.2 H (BEAKER) (test code = 412) PLATELET COUNT (BEAKER) (test 356 K/CU MM 150-430 code = 756) MEAN PLATELET VOLUME (BEAKER) 7.3 fL 6.5-10.5 (test code = 754) NUCLEATED RED BLOOD CELLS 0 /100 WBC 0-0 (BEAKER) (test code = 413) NEUTROPHILS RELATIVE PERCENT 49 % (BEAKER) (test code = 429) LYMPHOCYTES RELATIVE PERCENT 36 % (BEAKER) (test code = 430) MONOCYTES RELATIVE PERCENT 12 % (BEAKER) (test code = 431) EOSINOPHILS RELATIVE PERCENT 3 % (BEAKER) (test code = 432) BASOPHILS RELATIVE PERCENT 0 % (BEAKER) (test code = 437) NEUTROPHILS ABSOLUTE COUNT 3.10 K/ L 1.80-8.00 (BEAKER) (test code = 670) LYMPHOCYTES ABSOLUTE COUNT 2.30 K/ L 1.48-4.50 (BEAKER) (test code = 414) MONOCYTES ABSOLUTE COUNT (BEAKER) 0.80 K/ L 0.00-1.30 (test code = 415) EOSINOPHILS ABSOLUTE COUNT 0.20 K/ L 0.00-0.50 (BEAKER) (test code = 416) BASOPHILS ABSOLUTE COUNT (BEAKER) 0.00 K/ L 0.00-0.20 (test code = 417) (MANUAL DIFFERENTIAL)2018-04-24 06:53:00 Test Item Value Reference Range Interpretation Comments TOTAL COUNTED (BEAKER) (test code = 1351) WBC MORPHOLOGY (BEAKER) (test Normal code = 487) PLT MORPHOLOGY (BEAKER) (test Normal code = 486) ANISOCYTOSIS (BEAKER) (test code 2+ moderate = 961) BASOPHILIC STIPPLING (BEAKER) Present (test code = 473) HYPOCHROMIA (BEAKER) (test code = 2+ moderate 963) MACROCYTES (BEAKER) (test code = 1+ few 964) MICROCYTES (BEAKER) (test code = 1+ few 965) POLYCHROMATOPHILLIC RBCS(BEAKER) 1+ few (test code = 478) PROTHROMBIN [id number] 05:46:00 Test Item Value Reference Range Interpretation Comments PROTIME (BEAKER) (test code = 759) 14.5 sec 9.3-12.0 H INR (BEAKER) (test code = 370) 1.4 <=5.9 RECOMMENDED COUMADIN/WARFARIN INR THERAPY RANGESSTANDARD DOSE: 2.0 - 3.0 Includes: PROPHYLAXIS forvenous thrombosis, systemic embolization; TREATMENT for venous thrombosis and/or pulmonary embolus.HIGH RISK: Target INR is 2.5-3.5 for patients with mechanical heart valves.Final Information (Auto Output)Final Information (Auto Output)[id number] 01:17:00 Test Item Value Reference Range Interpretation Comments PARTIAL THROMBOPLASTIN TIME (BEAKER) 71.8 sec 23.0-35.0 H (test code = 760) Final Information (Auto Output)[id number] 15:40:00 Test Item Value Reference Range Interpretation Comments PARTIAL THROMBOPLASTIN TIME (BEAKER) 34.8 sec 23.0-35.0 (test code = 760) Final Information (Auto Output)PROTHROMBIN TIME/[id number] 06:10:00 Test Item Value Reference Range Interpretation Comments PROTIME (BEAKER) (test code = 759) 12.2 sec 9.3-12.0 H INR (BEAKER) (test code = 370) 1.1 <=5.9 RECOMMENDED COUMADIN/WARFARIN INR THERAPY RANGESSTANDARD DOSE: 2.0 - 3.0 Includes: PROPHYLAXIS forvenous thrombosis, systemic embolization; TREATMENT for venous thrombosis and/or pulmonary embolus.HIGH RISK: Target INR is 2.5-3.5 for patients with mechanical heart valves.Final Information (Auto Output)Final Information (Auto Output)[id number] 06:10:00 Test Item Value Reference Range Interpretation Comments PARTIAL THROMBOPLASTIN TIME (BEAKER) 36.3 sec 23.0-35.0 H (test code = 760) Final Information (Auto Output)[id number] 20:01:00 Test Item Value Reference Range Interpretation Comments PARTIAL THROMBOPLASTIN TIME 122.6 sec 23.0-35.0 HH (BEAKER) (test code = 760) Final Information (Auto Output)PROTHROMBIN TIME/[id number] 12:53:00 Test Item Value Reference Range Interpretation Comments PROTIME (BEAKER) (test code = 759) 12.6 sec 9.3-12.0 H INR (BEAKER) (test code = 370) 1.2 <=5.9 RECOMMENDED COUMADIN/WARFARIN INR THERAPY RANGESSTANDARD DOSE: 2.0 - 3.0 Includes: PROPHYLAXIS forvenous thrombosis, systemic embolization; TREATMENT for venous thrombosis and/or pulmonary embolus.HIGH RISK: Target INR is 2.5-3.5 for patients with mechanical heart valves.Final Information (Auto Output)Final Information (Auto Output)PROTEIN ELECTROPHORESIS, [id number] 12:15:00 Test Item Value Reference Range Interpretation Comments ALBUMIN FRACTION 3.5 g/dL 3.5-5.5 (BEAKER) (test code = 405) ALPHA 1 FRACTION 0.2 g/dL 0.2-0.4 (BEAKER) (test code = 389) ALPHA 2 FRACTION 0.6 g/dL 0.5-0.9 (BEAKER) (test code = 390) BETA FRACTION (BEAKER) 1.1 g/dL 0.6-1.1 (test code = 392) GAMMA GLOBULIN 0.8 g/dL 0.7-1.7 FRACTION (BEAKER) (test code = 391) INTERPRETATION-119 All fractions present (BEAKER) (test code = in expected 2617) distribution. No monoclonal bands detected. [id number] Annmarie Thomas MD (BEAKER) (test code = (electronic signature) 9116) PROTEIN TOTAL SERUM, 6.3 gm/dL 6.0-8.3 SPEP (BEAKER) (test code = 7292) CBC W/PLT COUNT & AUTO [id number] 11:59:00 Test Item Value Reference Range Interpretation Comments WHITE BLOOD CELL COUNT (BEAKER) 6.4 K/ L 4.0-10.0 (test code = 775) RED BLOOD CELL COUNT (BEAKER) 3.87 M/ L 4.20-5.80 L (test code = 761) HEMOGLOBIN (BEAKER) (test code = 8.8 GM/DL 13.0-16.8 L 410) HEMATOCRIT (BEAKER) (test code = 28.3 % 40.0-50.0 L 411) MEAN CORPUSCULAR VOLUME (BEAKER) 72.9 fL 82.0-98.0 L (test code = 753) MEAN CORPUSCULAR HEMOGLOBIN 22.7 pg 27.0-33.0 L (BEAKER) (test code = 751) MEAN CORPUSCULAR HEMOGLOBIN CONC 31.1 GM/DL 32.0-36.0 L (BEAKER) (test code = 752) RED CELL DISTRIBUTION WIDTH 22.3 % 10.3-14.2 H (BEAKER) (test code = 412) PLATELET COUNT (BEAKER) (test 339 K/CU MM 150-430 code = 756) MEAN PLATELET VOLUME (BEAKER) 7.0 fL 6.5-10.5 (test code = 754) NUCLEATED RED BLOOD CELLS 0 /100 WBC 0-0 (BEAKER) (test code = 413) NEUTROPHILS RELATIVE PERCENT 53 % (BEAKER) (test code = 429) LYMPHOCYTES RELATIVE PERCENT 31 % (BEAKER) (test code = 430) MONOCYTES RELATIVE PERCENT 13 % (BEAKER) (test code = 431) EOSINOPHILS RELATIVE PERCENT 3 % (BEAKER) (test code = 432) BASOPHILS RELATIVE PERCENT 0 % (BEAKER) (test code = 437) NEUTROPHILS ABSOLUTE COUNT 3.40 K/ L 1.80-8.00 (BEAKER) (test code = 670) LYMPHOCYTES ABSOLUTE COUNT 2.00 K/ L 1.48-4.50 (BEAKER) (test code = 414) MONOCYTES ABSOLUTE COUNT (BEAKER) 0.80 K/ L 0.00-1.30 (test code = 415) EOSINOPHILS ABSOLUTE COUNT 0.20 K/ L 0.00-0.50 (BEAKER) (test code = 416) BASOPHILS ABSOLUTE COUNT (BEAKER) 0.00 K/ L 0.00-0.20 (test code = 417) (MANUAL DIFFERENTIAL)2018-04-22 11:59:00 Test Item Value Reference Range Interpretation Comments TOTAL COUNTED (BEAKER) (test code = 1351) WBC MORPHOLOGY (BEAKER) (test Normal code = 487) PLT MORPHOLOGY (BEAKER) (test Normal code = 486) ANISOCYTOSIS (BEAKER) (test code 2+ moderate = 961) HYPOCHROMIA (BEAKER) (test code = 3+ many 963) PROTHROMBIN GENE [id number] 11:51:00 Test Item Value Reference Range Interpretation Comments PROTHROMBIN/FACTOR Negative for the G83812C II (BEAKER) (test (Prothrombin/Factor II) code = 2163) mutation. [id number] Annmarie Thomas MD 1(BEAKER) (test code (electronic signature) = 2601) This test is a genotyping assay which evaluates the DNA sequence at position 37765 of the prothrombin (Factor II) gene. A [...] and its performance characteristics determined by the [facility] Pathology Department, Section of Molecular Pathology. It has not been cleared or approved by the U.S. Food and Drug Administration (FDA), since FDA approval is not required for clinical use of the test. Validation was done as required by the Clinical Laboratory Improvement Amendments of 1988.FACTOR 5 LEIDEN PCR (THROMBOTIC RISK)2018-04-22 11:49:00 Test Item Value Reference Range Interpretation Comments FACTOR V LEIDEN Negative for the R506Q (BEAKER) (test code = (Factor V Leiden) 718) mutation [id number] Annmarie Thomas MD (BEAKER) (test code = (electronic signature) 6921) This test is a genotyping assay which [...] developed and its performance characteristics determined bythe [facility] Department, Section of Molecular Pathology. It has not been cleared or approved by the U.S. Food and Drug Administration (FDA), since FDA approval is not requ ired for clinical use of the test. Validation was done as required by the Clinical Laboratory Improvement Amendments of 1988.[id number] 10:00:00 Test Item Value Reference Range Interpretation Comments PARTIAL THROMBOPLASTIN TIME (BEAKER) > sec 23.0-35.0 HH (test code = 760) Final Information (Auto Output)[id number] 00:43:00 Test Item Value Reference Range Interpretation Comments PARTIAL THROMBOPLASTIN TIME (BEAKER) 81.0 sec 23.0-35.0 H (test code = 760) Final Information (Auto Output)[id number] 17:32:00 Test Item Value Reference Range Interpretation Comments PARTIAL THROMBOPLASTIN TIME (BEAKER) 37.3 sec 23.0-35.0 H (test code = 760) Final Information (Auto Output)CBC W/PLT COUNT & AUTO [id number] 08:19:00 Test Item Value Reference Range Interpretation Comments WHITE BLOOD CELL COUNT (BEAKER) 6.2 K/ L 4.0-10.0 (test code = 775) RED BLOOD CELL COUNT (BEAKER) 3.89 M/ L 4.20-5.80 L (test code = 761) HEMOGLOBIN (BEAKER) (test code = 8.7 GM/DL 13.0-16.8 L 410) HEMATOCRIT (BEAKER) (test code = 27.8 % 40.0-50.0 L 411) MEAN CORPUSCULAR VOLUME (BEAKER) 71.4 fL 82.0-98.0 L (test code = 753) MEAN CORPUSCULAR HEMOGLOBIN 22.4 pg 27.0-33.0 L (BEAKER) (test code = 751) MEAN CORPUSCULAR HEMOGLOBIN CONC 31.4 GM/DL 32.0-36.0 L (BEAKER) (test code = 752) RED CELL DISTRIBUTION WIDTH 21.7 % 10.3-14.2 H (BEAKER) (test code = 412) PLATELET COUNT (BEAKER) (test 347 K/CU MM 150-430 code = 756) MEAN PLATELET VOLUME (BEAKER) 7.1 fL 6.5-10.5 (test code = 754) NUCLEATED RED BLOOD CELLS 0 /100 WBC 0-0 (BEAKER) (test code = 413) NEUTROPHILS RELATIVE PERCENT 52 % (BEAKER) (test code = 429) LYMPHOCYTES RELATIVE PERCENT 34 % (BEAKER) (test code = 430) MONOCYTES RELATIVE PERCENT 10 % (BEAKER) (test code = 431) EOSINOPHILS RELATIVE PERCENT 3 % (BEAKER) (test code = 432) BASOPHILS RELATIVE PERCENT 0 % (BEAKER) (test code = 437) NEUTROPHILS ABSOLUTE COUNT 3.20 K/ L 1.80-8.00 (BEAKER) (test code = 670) LYMPHOCYTES ABSOLUTE COUNT 2.10 K/ L 1.48-4.50 (BEAKER) (test code = 414) MONOCYTES ABSOLUTE COUNT (BEAKER) 0.60 K/ L 0.00-1.30 (test code = 415) EOSINOPHILS ABSOLUTE COUNT 0.20 K/ L 0.00-0.50 (BEAKER) (test code = 416) BASOPHILS ABSOLUTE COUNT (BEAKER) 0.00 K/ L 0.00-0.20 (test code = 417) (MANUAL DIFFERENTIAL)2018-04-21 08:19:00 Test Item Value Reference Range Interpretation Comments TOTAL COUNTED (BEAKER) (test code = 1351) WBC MORPHOLOGY (BEAKER) (test Normal code = 487) PLT MORPHOLOGY (BEAKER) (test Normal code = 486) ANISOCYTOSIS (BEAKER) (test code 2+ moderate = 961) HYPOCHROMIA (BEAKER) (test code = 2+ moderate 963) MICROCYTES (BEAKER) (test code = 1+ few 965) POLYCHROMATOPHILLIC RBCS(BEAKER) 1+ few (test code = 478) BASIC METABOLIC [id number] 08:00:00 Test Item Value Reference Range Interpretation Comments SODIUM (BEAKER) 141 meq/L 135-148 (test code = 381) POTASSIUM (BEAKER) 3.6 meq/L 3.6-5.5 (test code = 379) CHLORIDE (BEAKER) 109 meq/L 98-106 H (test code = 382) CO2 (BEAKER) (test 24 meq/L 20-29 code = 355) BLOOD UREA NITROGEN 9 mg/dL 10-26 L (BEAKER) (test code = 354) CREATININE (BEAKER) 0.76 mg/dL 0.50-1.20 (test code = 358) GLUCOSE RANDOM 86 mg/dL 70-110 (BEAKER) (test code = 652) CALCIUM (BEAKER) 9.0 mg/dL 8.5-10.5 (test code = 697) EGFR (BEAKER) (test 110 mL/min/1.73 ESTIM ATED GFR IS code = 1092) sq m NOT ACCURATE CREATININE CLEARANCE IN PREDICTING GLOMERULAR FILTRATION RATE . ESTIMATED GFR I S NOT APPLICABLE FOR DIALYSIS PATIEN TS. PROTHROMBIN [id number] 07:55:00 Test Item Value Reference Range Interpretation Comments PROTIME (BEAKER) (test code = 759) 11.4 sec 9.3-12.0 INR (BEAKER) (test code = 370) 1.1 <=5.9 RECOMMENDED COUMADIN/WARFARIN INR THERAPY RANGESSTANDARD DOSE: 2.0 - 3.0 Includes: PROPHYLAXIS forvenous thrombosis, systemic embolization; TREATMENT for venous thrombosis and/or pulmonary embolus.HIGH RISK: Target INR is 2.5-3.5 for patients with mechanical heart valves.Final Information (Auto Output)Final Information (Auto Output)[id number] 07:52:00 Test Item Value Reference Range Interpretation Comments PARTIAL THROMBOPLASTIN TIME (BEAKER) 71.6 sec 23.0-35.0 H (test code = 760) Final Information (Auto Output)[id number] 22:28:00 Test Item Value Reference Range Interpretation Comments PARTIAL THROMBOPLASTIN TIME 119.3 sec 23.0-35.0 H (BEAKER) (test code = 760) Final Information (Auto Output)CBC (HEMOGRAM ONLY)2018-04-20 21:32:00 Test Item Value Reference Range Interpretation Comments WHITE BLOOD CELL COUNT (BEAKER) 7.0 K/ L 4.0-10.0 (test code = 775) RED BLOOD CELL COUNT (BEAKER) 3.89 M/ L 4.20-5.80 L (test code = 761) HEMOGLOBIN (BEAKER) (test code = 8.8 GM/DL 13.0-16.8 L 410) HEMATOCRIT (BEAKER) (test code = 27.6 % 40.0-50.0 L 411) MEAN CORPUSCULAR VOLUME (BEAKER) 70.8 fL 82.0-98.0 L (test code = 753) MEAN CORPUSCULAR HEMOGLOBIN 22.6 pg 27.0-33.0 L (BEAKER) (test code = 751) MEAN CORPUSCULAR HEMOGLOBIN CONC 32.0 GM/DL 32.0-36.0 (BEAKER) (test code = 752) RED CELL DISTRIBUTION WIDTH 20.0 % 10.3-14.2 H (BEAKER) (test code = 412) PLATELET COUNT (BEAKER) (test 360 K/CU MM 150-430 code = 756) MEAN PLATELET VOLUME (BEAKER) 7.4 fL 6.5-10.5 (test code = 754) [id number] 12:43:00 Test Item Value Reference Range Interpretation Comments PARTIAL THROMBOPLASTIN TIME (BEAKER) 72.2 sec 23.0-35.0 H (test code = 760) Final Information (Auto Output)CARDIOLIPIN ANTIBODIES, IGG AND [id number] 12:16:00 Test Item Value Reference Range Interpretation Comments ANTICARDIOLIPIN IGG ANTIBODY (BEAKER) < GPL <20.0 (test code = 712) ANTICARDIOLIPIN IGM ANTIBODY (BEAKER) 0.5 MPL <20.0 (test code = 713) Anticardiolipin IgG Result Interpretation: <20.0 GPL Normal>/= 20.0 GPL PositiveAnticardiolipin IgM Result Interpretation: <20.0 MPL Normal>/= 20.0 MPL PositiveCBC W/PLT COUNT & AUTO [id number] 08:58:00 Test Item Value Reference Range Interpretation Comments WHITE BLOOD CELL COUNT (BEAKER) 6.4 K/ L 4.0-10.0 (test code = 775) RED BLOOD CELL COUNT (BEAKER) 4.00 M/ L 4.20-5.80 L (test code = 761) HEMOGLOBIN (BEAKER) (test code = 9.0 GM/DL 13.0-16.8 L 410) HEMATOCRIT (BEAKER) (test code = 28.6 % 40.0-50.0 L 411) MEAN CORPUSCULAR VOLUME (BEAKER) 71.7 fL 82.0-98.0 L (test code = 753) MEAN CORPUSCULAR HEMOGLOBIN 22.5 pg 27.0-33.0 L (BEAKER) (test code = 751) MEAN CORPUSCULAR HEMOGLOBIN CONC 31.4 GM/DL 32.0-36.0 L (BEAKER) (test code = 752) RED CELL DISTRIBUTION WIDTH 21.7 % 10.3-14.2 H (BEAKER) (test code = 412) PLATELET COUNT (BEAKER) (test 355 K/CU MM 150-430 code = 756) MEAN PLATELET VOLUME (BEAKER) 7.1 fL 6.5-10.5 (test code = 754) NUCLEATED RED BLOOD CELLS 0 /100 WBC 0-0 (BEAKER) (test code = 413) NEUTROPHILS RELATIVE PERCENT 48 % (BEAKER) (test code = 429) LYMPHOCYTES RELATIVE PERCENT 36 % (BEAKER) (test code = 430) MONOCYTES RELATIVE PERCENT 12 % (BEAKER) (test code = 431) EOSINOPHILS RELATIVE PERCENT 4 % (BEAKER) (test code = 432) BASOPHILS RELATIVE PERCENT 0 % (BEAKER) (test code = 437) NEUTROPHILS ABSOLUTE COUNT 3.10 K/ L 1.80-8.00 (BEAKER) (test code = 670) LYMPHOCYTES ABSOLUTE COUNT 2.30 K/ L 1.48-4.50 (BEAKER) (test code = 414) MONOCYTES ABSOLUTE COUNT (BEAKER) 0.80 K/ L 0.00-1.30 (test code = 415) EOSINOPHILS ABSOLUTE COUNT 0.20 K/ L 0.00-0.50 (BEAKER) (test code = 416) BASOPHILS ABSOLUTE COUNT (BEAKER) 0.00 K/ L 0.00-0.20 (test code = 417) (MANUAL DIFFERENTIAL)2018-04-20 08:58:00 Test Item Value Reference Range Interpretation Comments TOTAL COUNTED (BEAKER) (test code = 1351) WBC MORPHOLOGY (BEAKER) (test code = Normal 487) PLT MORPHOLOGY (BEAKER) (test code = Normal 486) ANISOCYTOSIS (BEAKER) (test code = 1+ few 961) HYPOCHROMIA (BEAKER) (test code = 963) 1+ few POIKILOCYTES (BEAKER) (test code = 1+ few 966) POLYCHROMATOPHILLIC RBCS(BEAKER) (test 1+ few code = 478) BASIC METABOLIC [id number] 08:26:00 Test Item Value Reference Range Interpretation Comments SODIUM (BEAKER) 140 meq/L 135-148 (test code = 381) POTASSIUM (BEAKER) 3.9 meq/L 3.6-5.5 (test code = 379) CHLORIDE (BEAKER) 107 meq/L 98-106 H (test code = 382) CO2 (BEAKER) (test 24 meq/L 20-29 code = 355) BLOOD UREA NITROGEN 12 mg/dL 10-26 (BEAKER) (test code = 354) CREATININE (BEAKER) 0.76 mg/dL 0.50-1.20 (test code = 358) GLUCOSE RANDOM 92 mg/dL 70-110 (BEAKER) (test code = 652) CALCIUM (BEAKER) 8.9 mg/dL 8.5-10.5 (test code = 697) EGFR (BEAKER) (test 110 mL/min/1.73 ESTIM ATED GFR IS code = 1092) sq m NOT ACCURATE CREATININE CLEARANCE IN PREDICTING GLOMERULAR FILTRATION RATE . ESTIMATED GFR I S NOT APPLICABLE FOR DIALYSIS PATIEN TS. PROTHROMBIN TIME/[id number] 08:16:00 Test Item Value Reference Range Interpretation Comments PROTIME (BEAKER) (test code = 759) 10.6 sec 9.3-12.0 INR (BEAKER) (test code = 370) 1.0 <=5.9 RECOMMENDED COUMADIN/WARFARIN INR THERAPY RANGESSTANDARD DOSE: 2.0 - 3.0 Includes: PROPHYLAXIS forvenous thrombosis, systemic embolization; TREATMENT for venous thrombosis and/or pulmonary embolus.HIGH RISK: Target INR is 2.5-3.5 for patients with mechanical heart valves.Final Information (Auto Output)Final Information (Auto Output)[id number] 08:16:00 Test Item Value Reference Range Interpretation Comments D-DIMER QUANTITATIVE (BEAKER) (test 0.93 mg/L <0.50 H code = 671) REGARDING D-DIMER RESULTS: The 98% NPV (Negative Predictive Value) for DVT/PE exclusion is 0.50 mg/LFEU as suggested by the electrotyper helper and as approved by the FDA.Final Information (Auto Output)[id number] 02:51:00 Test Item Value Reference Range Interpretation Comments PARTIAL THROMBOPLASTIN TIME (BEAKER) > sec 23.0-35.0 HH (test code = 760) Final Information (Auto Output)[id number] 17:54:00 Test Item Value Reference Range Interpretation Comments PARTIAL THROMBOPLASTIN TIME (BEAKER) 72.2 sec 23.0-35.0 H (test code = 760) Final Information (Auto Output)ANTITHROMBIN [id number] 11:29:00 Test Item Value Reference Range Interpretation Comments ANTITHROMBIN III ACTIVITY (BEAKER) 81.0 % 80.0-120.0 (test code = 711) CBC W/PLT COUNT & AUTO [id number] 10:34:00 Test Item Value Reference Range Interpretation Comments WHITE BLOOD CELL COUNT (BEAKER) 6.6 K/ L 4.0-10.0 (test code = 775) RED BLOOD CELL COUNT (BEAKER) 3.93 M/ L 4.20-5.80 L (test code = 761) HEMOGLOBIN (BEAKER) (test code = 8.9 GM/DL 13.0-16.8 L 410) HEMATOCRIT (BEAKER) (test code = 28.3 % 40.0-50.0 L 411) MEAN CORPUSCULAR VOLUME (BEAKER) 71.9 fL 82.0-98.0 L (test code = 753) MEAN CORPUSCULAR HEMOGLOBIN 22.5 pg 27.0-33.0 L (BEAKER) (test code = 751) MEAN CORPUSCULAR HEMOGLOBIN CONC 31.3 GM/DL 32.0-36.0 L (BEAKER) (test code = 752) RED CELL DISTRIBUTION WIDTH 21.0 % 10.3-14.2 H (BEAKER) (test code = 412) PLATELET COUNT (BEAKER) (test 339 K/CU MM 150-430 code = 756) MEAN PLATELET VOLUME (BEAKER) 7.2 fL 6.5-10.5 (test code = 754) NUCLEATED RED BLOOD CELLS 0 /100 WBC 0-0 (BEAKER) (test code = 413) NEUTROPHILS RELATIVE PERCENT 52 % (BEAKER) (test code = 429) LYMPHOCYTES RELATIVE PERCENT 32 % (BEAKER) (test code = 430) MONOCYTES RELATIVE PERCENT 11 % (BEAKER) (test code = 431) EOSINOPHILS RELATIVE PERCENT 4 % (BEAKER) (test code = 432) BASOPHILS RELATIVE PERCENT 0 % (BEAKER) (test code = 437) NEUTROPHILS ABSOLUTE COUNT 3.40 K/ L 1.80-8.00 (BEAKER) (test code = 670) LYMPHOCYTES ABSOLUTE COUNT 2.10 K/ L 1.48-4.50 (BEAKER) (test code = 414) MONOCYTES ABSOLUTE COUNT (BEAKER) 0.70 K/ L 0.00-1.30 (test code = 415) EOSINOPHILS ABSOLUTE COUNT 0.30 K/ L 0.00-0.50 (BEAKER) (test code = 416) BASOPHILS ABSOLUTE COUNT (BEAKER) 0.00 K/ L 0.00-0.20 (test code = 417) (MANUAL DIFFERENTIAL)[id number] 10:34:00 Test Item Value Reference Range Interpretation Comments TOTAL COUNTED (BEAKER) (test code = 1351) WBC MORPHOLOGY (BEAKER) (test Normal code = 487) PLT MORPHOLOGY (BEAKER) (test Normal code = 486) ANISOCYTOSIS (BEAKER) (test code 3+ many = 961) HYPOCHROMIA (BEAKER) (test code = 2+ moderate 963) MICROCYTES (BEAKER) (test code = 1+ few 965) TROPONIN [id number] 09:42:00 Test Item Value Reference Range Interpretation Comments TROPONIN I (BEAKER) (test code = 397) < ng/mL 0.00-0.15 Troponin I (TnI) levels [...] acute neurological disease, and persistent tachyarrhythmia.BASIC METABOLIC [id number] 09:34:00 Test Item Value Reference Range Interpretation Comments SODIUM (BEAKER) 140 meq/L 135-148 (test code = 381) POTASSIUM (BEAKER) 3.8 meq/L 3.6-5.5 (test code = 379) CHLORIDE (BEAKER) 107 meq/L 98-106 H (test code = 382) CO2 (BEAKER) (test 25 meq/L 20-29 code = 355) BLOOD UREA NITROGEN 12 mg/dL 10-26 (BEAKER) (test code = 354) CREATININE (BEAKER) 0.83 mg/dL 0.50-1.20 (test code = 358) GLUCOSE RANDOM 106 mg/dL 70-110 (BEAKER) (test code = 652) CALCIUM (BEAKER) 9.1 mg/dL 8.5-10.5 (test code = 697) EGFR (BEAKER) (test 99 mL/min/1.73 ESTIMA NEIL GFR IS code = 1092) sq m NOT ACCURATE CREATININE CLEARANCE IN PREDICTING GLOMERULAR FILTRATION RATE . ESTIMATED GFR I S NOT APPLICABLE FOR DIALYSIS PATIEN TS. [id number] 05:06:00 Test Item Value Reference Range Interpretation Comments PROTIME (BEAKER) (test code = 759) 10.0 sec 9.3-12.0 INR (BEAKER) (test code = 370) 0.9 <=5.9 PARTIAL THROMBOPLASTIN TIME (BEAKER) 26.5 sec 23.0-35.0 (test code = 760) RECOMMENDED COUMADIN/WARFARIN INR THERAPY RANGESSTANDARD DOSE: 2.0 - 3.0 Includes: PROPHYLAXIS forvenous thrombosis, systemic embolization; TREATMENT for venous thrombosis and/or pulmonary embolus.HIGH RISK: Target INR is 2.5-3.5 for patients with mechanical heart valves.Final Information (Auto Output)Final Information (Auto Output)Final Information (Auto Output)TROPONIN [id number] 20:04:00 Test Item Value Reference Range Interpretation Comments TROPONIN I (BEAKER) (test code = 397) < ng/mL 0.00-0.15 Troponin I (TnI) levels [...] failure, acidosis, acute neurological disease, and persistent tachyarrhythmia.[id number] 20:01:00 Test Item Value Reference Range Interpretation Comments HOMOCYSTEINE (BEAKER) (test code = 6.1 umol/L 5.1-15.4 642) VITAMIN B12 AND [id number] 18:10:00 Test Item Value Reference Range Interpretation Comments VITAMIN B12 (BEAKER) (test code = 497 pg/mL 213-816 774) FOLATE (BEAKER) (test code = 362) 6.5 ng/mL >=7.0 L IRON, TIBC, % SAT. (WITHOUT FERRITIN)2018-04-18 17:43:00 Test Item Value Reference Range Interpretation Comments IRON (BEAKER) (test code = 547) 16 ug/dL 40-160 L TOTAL IRON BINDING CAPACITY 468 ug/dL 250-450 H (BEAKER) (test code = 769) IRON % SATURATION (2) (BEAKER) 3 % 20-55 L (test code = 2590) [id number] 13:31:00 Test Item Value Reference Range Interpretation Comments PROTIME (BEAKER) (test code = 759) 10.9 sec 9.3-12.0 INR (BEAKER) (test code = 370) 1.0 <=5.9 PARTIAL THROMBOPLASTIN TIME 131.9 sec 23.0-35.0 HH (BEAKER) (test code = 760) RECOMMENDED COUMADIN/WARFARIN INR THERAPY RANGESSTANDARD DOSE: 2.0 - 3.0 Includes: PROPHYLAXIS forvenous thrombosis, systemic embolization; TREATMENT for venous thrombosis and/or pulmonary embolus.HIGH RISK: Target INR is 2.5-3.5 for patients with mechanical heart valves.Final Information (Auto Output)Final Information (Auto Output)Final Information (Auto Output)PATIENT ON BLOOD THINNER PER [facility] WRIGHT [id number] DOPPLER LEGS, [id number] 12:31:00Reason for exam:->PEFINAL REPORT History: Lower extremity swelling [...] MDReport Verified Date/Time: 04/18/2018 12:31:58 Reading Location: [facility] Radiology Reading Room [place] ctronically signed by: TREMAYNE TAPIA M.D. on 04/18/2018 12:31 PMFERRITIN 2018-04-18 12:28:00 Test Item Value Reference Range Interpretation Comments FERRITIN (BEAKER) (test code = 361) 8 ng/mL 22-322 L LACTATE DEHYDROGENASE (LDH)2018-04-18 11:27:00 Test Item Value Reference Range Interpretation Comments LACTATE DEHYDROGENASE (BEAKER) (test 174 U/L 107-206 code = 635) RETICULOCYTE [id number] 11:11:00 Test Item Value Reference Range Interpretation Comments RETICULOCYTE COUNT PCT (BEAKER) (test 1.5 % 0.4-2.9 code = 575) TROPONIN [id number] 06:08:00 Test Item Value Reference Range Interpretation Comments TROPONIN I (BEAKER) (test code = 397) < ng/mL 0.00-0.15 Troponin I (TnI) levels [...] acute neurological disease, and persistent tachyarrhythmia.BASIC METABOLIC [id number] 06:00:00 Test Item Value Reference Range Interpretation Comments SODIUM (BEAKER) 138 meq/L 135-148 (test code = 381) POTASSIUM (BEAKER) 3.7 meq/L 3.6-5.5 (test code = 379) CHLORIDE (BEAKER) 107 meq/L 98-106 H (test code = 382) CO2 (BEAKER) (test 24 meq/L 20-29 code = 355) BLOOD UREA NITROGEN 8 mg/dL 10-26 L (BEAKER) (test code = 354) CREATININE (BEAKER) 0.84 mg/dL 0.50-1.20 (test code = 358) GLUCOSE RANDOM 86 mg/dL 70-110 (BEAKER) (test code = 652) CALCIUM (BEAKER) 8.2 mg/dL 8.5-10.5 L (test code = 697) EGFR (BEAKER) (test 98 mL/min/1.73 ESTIMA NEIL GFR IS code = 1092) sq m NOT ACCURATE CREATININE CLEARANCE IN PREDICTING GLOMERULAR FILTRATION RATE . ESTIMATED GFR I S NOT APPLICABLE FOR DIALYSIS PATIEN ORTIZ. [id number] 01:22:00 Test Item Value Reference Range Interpretation Comments PARTIAL THROMBOPLASTIN TIME 23.3 seconds 23.0-35.0 (BEAKER) (test code = 760) CBC (HEMOGRAM ONLY)2018-04-18 01:12:00 Test Item Value Reference Range Interpretation Comments WHITE BLOOD CELL COUNT (BEAKER) 7.5 K/ L 4.0-10.0 (test code = 775) RED BLOOD CELL COUNT (BEAKER) 3.77 M/ L 4.20-5.80 L (test code = 761) HEMOGLOBIN (BEAKER) (test code = 8.0 GM/DL 13.0-16.8 L 410) HEMATOCRIT (BEAKER) (test code = 26.3 % 40.0-50.0 L 411) MEAN CORPUSCULAR VOLUME (BEAKER) 69.7 fL 82.0-98.0 L (test code = 753) MEAN CORPUSCULAR HEMOGLOBIN 21.2 pg 27.0-33.0 L (BEAKER) (test code = 751) MEAN CORPUSCULAR HEMOGLOBIN CONC 30.4 GM/DL 32.0-36.0 L (BEAKER) (test code = 752) RED CELL DISTRIBUTION WIDTH 19.2 % 10.3-14.2 H (BEAKER) (test code = 412) PLATELET COUNT (BEAKER) (test 395 K/CU MM 150-430 code = 756) MEAN PLATELET VOLUME (BEAKER) 7.6 fL 6.5-10.5 (test code = 754) CT, CHEST WITH IV CONTRAST- PE TEST [id number] 23:21:00Reason for exam:- >CHEST PAINWhat is the patient's sedation requirement?->No SedationFINAL [...] is decompressed. No evidence of pathologic lymphadenopathy.A right-sided Port-A-Cath is again noted with the tip [...] PE. Results discussed with Dr. Flores. Signed: Surjit Cruz [facility] Verified Date/Time: 04/17/2018 23:21:52 Reading Location: [address] Reading Room CREATINE KINASE (CK), TOTAL AND [id number] 22:25:00 Test Item Value Reference Range Interpretation Comments CREATINE KINASE TOTAL (BEAKER) 87 U/L 40-250 (test code = 380) CREATINE KINASE-MB (BEAKER) (test 1.1 ng/mL 0.0-4.9 code = 750) CREATINE KINASE-MB INDEX (BEAKER) 1.3 % (test code = 395) CK-MB Reference Range:<5 Normal5-10 Borderline>10 AbnormalTSH/FREE T4 IF [id number] 22:07:00 Test Item Value Reference Range Interpretation Comments THYROID STIMULATING HORMONE 0.71 uIU/mL 0.35-5.50 (BEAKER) (test code = 772) B-TYPE NATRIURETIC FACTOR (BNP)2018-04-17 21:44:00 Test Item Value Reference Range Interpretation Comments B-TYPE NATRIURETIC PEPTIDE (BEAKER) 8 pg/mL 0-100 (test code = 700) TROPONIN [id number] 21:43:00 Test Item Value Reference Range Interpretation Comments TROPONIN I (BEAKER) (test code = 397) < ng/mL 0.00-0.15 Troponin I (TnI) levels [...] acute neurological disease, and persistent tachyarrhythmia.BASIC METABOLIC [id number] 21:39:00 Test Item Value Reference Range Interpretation Comments SODIUM (BEAKER) 140 meq/L 135-148 (test code = 381) POTASSIUM (BEAKER) 3.6 meq/L 3.6-5.5 (test code = 379) CHLORIDE (BEAKER) 106 meq/L 98-106 (test code = 382) CO2 (BEAKER) (test 21 meq/L 20-29 code = 355) BLOOD UREA NITROGEN 7 mg/dL 10-26 L (BEAKER) (test code = 354) CREATININE (BEAKER) 1.00 mg/dL 0.50-1.20 (test code = 358) GLUCOSE RANDOM 140 mg/dL 70-110 H (BEAKER) (test code = 652) CALCIUM (BEAKER) 9.1 mg/dL 8.5-10.5 (test code = 697) EGFR (BEAKER) (test 80 mL/min/1.73 ESTIMA NEIL GFR IS code = 1092) sq m NOT ACCURATE CREATININE CLEARANCE IN PREDICTING GLOMERULAR FILTRATION RATE . ESTIMATED GFR I S NOT APPLICABLE FOR DIALYSIS PATIEN TS. PROTHROMBIN [id number] 21:28:00 Test Item Value Reference Range Interpretation Comments PROTIME (BEAKER) (test code = 759) 10.1 sec 9.3-12.0 INR (BEAKER) (test code = 370) 0.9 <=5.9 RECOMMENDED COUMADIN/WARFARIN INR THERAPY RANGESSTANDARD DOSE: 2.0 - 3.0 Includes: PROPHYLAXIS forvenous thrombosis, systemic embolization; TREATMENT for venous thrombosis and/or pulmonary embolus.HIGH RISK: Target INR is 2.5-3.5 for patients with mechanical heart valves.Final Information (Auto Output)Final Information (Auto Output)CBC W/PLT COUNT & AUTO [id number] 21:25:00 Test Item Value Reference Range Interpretation Comments WHITE BLOOD CELL COUNT (BEAKER) 5.7 K/ L 4.0-10.0 (test code = 775) RED BLOOD CELL COUNT (BEAKER) 3.76 M/ L 4.20-5.80 L (test code = 761) HEMOGLOBIN (BEAKER) (test code = 7.9 GM/DL 13.0-16.8 L 410) HEMATOCRIT (BEAKER) (test code = 25.9 % 40.0-50.0 L 411) MEAN CORPUSCULAR VOLUME (BEAKER) 69.0 fL 82.0-98.0 L (test code = 753) MEAN CORPUSCULAR HEMOGLOBIN 21.0 pg 27.0-33.0 L (BEAKER) (test code = 751) MEAN CORPUSCULAR HEMOGLOBIN CONC 30.4 GM/DL 32.0-36.0 L (BEAKER) (test code = 752) RED CELL DISTRIBUTION WIDTH 20.9 % 10.3-14.2 H (BEAKER) (test code = 412) PLATELET COUNT (BEAKER) (test 411 K/CU MM 150-430 code = 756) MEAN PLATELET VOLUME (BEAKER) 6.9 fL 6.5-10.5 (test code = 754) NUCLEATED RED BLOOD CELLS 0 /100 WBC 0-0 (BEAKER) (test code = 413) NEUTROPHILS RELATIVE PERCENT 49 % (BEAKER) (test code = 429) LYMPHOCYTES RELATIVE PERCENT 35 % (BEAKER) (test code = 430) MONOCYTES RELATIVE PERCENT 12 % (BEAKER) (test code = 431) EOSINOPHILS RELATIVE PERCENT 4 % (BEAKER) (test code = 432) BASOPHILS RELATIVE PERCENT 0 % (BEAKER) (test code = 437) NEUTROPHILS ABSOLUTE COUNT 2.80 K/ L 1.80-8.00 (BEAKER) (test code = 670) LYMPHOCYTES ABSOLUTE COUNT 2.00 K/ L 1.48-4.50 (BEAKER) (test code = 414) MONOCYTES ABSOLUTE COUNT (BEAKER) 0.70 K/ L 0.00-1.30 (test code = 415) EOSINOPHILS ABSOLUTE COUNT 0.20 K/ L 0.00-0.50 (BEAKER) (test code = 416) BASOPHILS ABSOLUTE COUNT (BEAKER) 0.00 K/ L 0.00-0.20 (test code = 417) ERYTHROCYTE SED [id number] 22:37:00 Test Item Value Reference Range Interpretation Comments Sed Rate (test 41 mm/hr 0-20 H EFFECTIVE 01-09, THE code = ESR) METHODOLOGY USE D FOR ERYTHROCYTE SED IMENTATION RATE HAS CHANGE D. THE NORMAL RANGES H AVE CHANGED. PLEASE NOTE TH AT RANGES ARE DEFINED BY THE AGE OF THE PATIENT. N EW REFERENCE RANGES: Females 0-49 years old = 0-25 mm/h r Females 50-999 years ol d = 0-35 mm/hr Males 0-4 9 years old = 0-20 mm/hr Ma les 50-999 years old = 0-2 5 mm/hr [id number] 22:06:00 Test Item Value Reference Range Interpretation Comments Glucose (test code 130 mg/dl 75-110 H = GLU) BUN (test code = 13.0 mg/dl 6.0-17.0 BUN) Creatinine (test 0.9 mg/dl 0.4-1.2 code = CREA) Sodium (test code = 142 mmol/l 137-145 NA) Potassium (test 3.8 mmol/l 3.5-5.0 code = K) Chloride (test code 107 mmol/l 98-107 = CL) CO2 (test code = 25 mmol/l 22-30 CO2) Calcium (test code 8.9 mg/dl 8.4-10.2 = CALC) T Protein (test 7.5 gm/dl 5.1-8.7 code = TP) Albumin (test code 4.4 gm/dl 3.5-4.6 = ALB) A/G Ratio (test 1.4 % 1.1-2.2 code = AGRAT) AST (SGOT) (test 43 U/L 11-36 H code = AST) ALT (SGPT) (test 21 U/L 11-40 code = ALT) Alkaline Phos (test 76 U/L 47-114 code = ALKP) Total Bilirubin 0.3 mg/dl 0.2-1.2 (test code = TBIL) Globulin (test code 3.1 gm/dl 2.3-3.5 = GLOBU) Calcium, Corrected 8.6 mg/dl 8.4-10.2 Various f ormulas exist (test code = for corrected s ines CALCCORR) calcium results , each yielding differ ent values. This corrected resul t was based on the fo rmula: Corrected Calci um = SerumCalcium + [0.8 * ( 4 - SerumAlbu min)] EGFR if >60 Green[place]ic (test code mL/min/1.73m\\ = EGFRAA) S\\2 EGFR if Non- >60 Estimate d Glomerular [place]ic (test code mL/min/1.73m\\ Filtrat ion Rate (eGFR) = EGFRNA) S\\2 Reference Inter vals Decision Points for 18 years and older and average body ma ss: >= 60 Does not exc lude kidney disease. 30 - 59 Suggests modera te chronic kidney disease and indicat es the need for furthe r investigation including asses sment of proteinuria and cardiovascular factors. < 30 Usually in dicates a need for refe rral for assessment and management of c hronic kidney failure. XR CHEST AP/PA 1 [id number] 22:01:15Procedure: AP View ChestOrder date: 04/15/2018 9:16 PMOrdering Provider: ILIANA BEACHClinical Indication: chest pain, Chest painComparison: January 29, 2018Findings:Stable right-sided Port-A-Cath.Cardiomediastinal silhouette is within normal limits.The lungs are clear. No large pleural effusions or pneumothorax. Osseousstructures are nonacute.No evidence of active tuberculosis.Impression:No acute cardiopulmonary process.This final report was electronically signed by Dr Yobany Beach MD 04/15/20189:54 PMDictated By: YOBANY BEACHDate: 04/15/2018 22:01D-DIMER [id number] 21:53:00 Test Item Value Reference Range Interpretation Comments D DIMER (test 1.56 mg/L FEU 0.19-0.50 H METHOD CHANGE : code = D DIM) 11/16/2012 Due to the discontinued me hodology currently in us e, a change in the t esting method is oswald chang. The Reference R anges will change dramatically, a nd results are obt ained by the observance of clotting activa tion mesured on the [employer] instruments. T his same methodology is currently in use for PT/I NR , PTT, AND HEPARIN giselle ting in our Labs. The D-Dimer assay is an aid in the evaluation of thromboembolic events, as in DIC, DVT, Pulmonary Embol ism, and other thromboem bolic diseases, and s hould not be used without other diagnostic anahi ures, to properly diagno se and treat thromboem bolic disease. REFER ENCE RANGE: 0.19 - 0.50 mg/L FEU (Fibrinogen Equivalent Unit s) Cut-Off Value i s: > .50 mg/L FEU Note: Results greater than (> ) the Cut-Off are to be considered POSI TIVE, and significant in the evaluation of thromboembolic diseases. Results less t chapin (<) the Cut-Off ar e to be considered NEGA TIVE, and a low probabili ty of thromboembolic disease. CBC WITH AUTO [id number] 21:43:00 Test Item Value Reference Range Interpretation Comments WBC (test code = 5.72 10\\S\\3/ul 4.80-10.80 WBC) RBC (test code = 3.71 10\\S\\6/ul 4.70-6.10 L RBC) Hemoglobin (test 8.0 gm/dl 14.0-18.0 L code = HGB) Hematocrit (test 26.7 % 42.0-50.0 L code = HCT) MCV (test code = 72.0 fL 80.0-94.0 L MCV) MCH (test code = 20.5 pg 27.0-31.0 L MCH) MCHC (test code = 28.5 gm/dl 33.0-37.0 L MCHC) RDW (test code = 19.1 % 11.5-14.5 H RDWVC) Platelet (test code 369 10\\S\\3/ul 130-400 = PLT) MPV (test code = 8.9 fL 7.4-10.4 A "NOT MEASUR ED" MPV) RESULTS ARE DIS PLAYED WHEN THE INSTRU MENT HAS A SUPPRESSE D OR UNREPORTABLE RE SULT. THIS WILL MOST OFTEN HAPPEN WITH THE MPV WHEN THERE IS A N ABNORMAL PLATEL ET DISTRIBUTION DU E TO A CRITICAL LOW VA LUE OR PLATELET CLUMPI NG. THE RDW MAY BE SUPPRESSED IF T HERE ARE MULTIPLE PE AKS PRESENT ON THE RBC HISTOGRAM. IN THIS CASE, A MANUAL REVIEW OF THE SLIDE WI LL BE PERFORMED, AND RBC MORPHOLOGY WILL BE NOTED ON THE RE PORT. NE% (test code = 42.7 % 42.0-75.0 NE) LY% (test code = 40.2 % 13.0-42.0 LY) MO% (test code = 14.7 % 4.0-14.0 H MO) EO% (test code = 1.9 % 1.0-3.0 EO) BA% (test code = 0.3 % 1.0-3.0 L BA) IG% (test code = 0.2 % 0.0-0.4 IG%) AUTO DIFFCBC W/PLT COUNT & AUTO [id number] 08:53:00 Test Item Value Reference Range Interpretation Comments WHITE BLOOD CELL COUNT (BEAKER) 6.9 K/ L 4.0-10.0 (test code = 775) RED BLOOD CELL COUNT (BEAKER) 3.56 M/ L 4.20-5.80 L (test code = 761) HEMOGLOBIN (BEAKER) (test code = 8.5 GM/DL 13.0-16.8 L 410) HEMATOCRIT (BEAKER) (test code = 26.5 % 40.0-50.0 L 411) MEAN CORPUSCULAR VOLUME (BEAKER) 74.5 fL 82.0-98.0 L (test code = 753) MEAN CORPUSCULAR HEMOGLOBIN 23.8 pg 27.0-33.0 L (BEAKER) (test code = 751) MEAN CORPUSCULAR HEMOGLOBIN CONC 31.9 GM/DL 32.0-36.0 L (BEAKER) (test code = 752) RED CELL DISTRIBUTION WIDTH 20.1 % 10.3-14.2 H (BEAKER) (test code = 412) PLATELET COUNT (BEAKER) (test 372 K/CU MM 150-430 code = 756) MEAN PLATELET VOLUME (BEAKER) 6.8 fL 6.5-10.5 (test code = 754) NUCLEATED RED BLOOD CELLS 0 /100 WBC 0-0 (BEAKER) (test code = 413) NEUTROPHILS RELATIVE PERCENT 55 % (BEAKER) (test code = 429) LYMPHOCYTES RELATIVE PERCENT 30 % (BEAKER) (test code = 430) MONOCYTES RELATIVE PERCENT 13 % (BEAKER) (test code = 431) EOSINOPHILS RELATIVE PERCENT 2 % (BEAKER) (test code = 432) BASOPHILS RELATIVE PERCENT 0 % (BEAKER) (test code = 437) NEUTROPHILS ABSOLUTE COUNT 3.80 K/ L 1.80-8.00 (BEAKER) (test code = 670) LYMPHOCYTES ABSOLUTE COUNT 2.10 K/ L 1.48-4.50 (BEAKER) (test code = 414) MONOCYTES ABSOLUTE COUNT (BEAKER) 0.90 K/ L 0.00-1.30 (test code = 415) EOSINOPHILS ABSOLUTE COUNT 0.10 K/ L 0.00-0.50 (BEAKER) (test code = 416) BASOPHILS ABSOLUTE COUNT (BEAKER) 0.00 K/ L 0.00-0.20 (test code = 417) (MANUAL DIFFERENTIAL)2018-02-01 08:53:00 Test Item Value Reference Range Interpretation Comments TOTAL COUNTED (BEAKER) (test code = 1351) WBC MORPHOLOGY (BEAKER) (test Normal code = 487) PLT MORPHOLOGY (BEAKER) (test Normal code = 486) ANISOCYTOSIS (BEAKER) (test code 2+ moderate = 961) HYPOCHROMIA (BEAKER) (test code = 3+ many 963) MICROCYTES (BEAKER) (test code = 1+ few 965) TROPONIN [id number] 07:05:00 Test Item Value Reference Range Interpretation Comments TROPONIN I (BEAKER) (test code = 397) < ng/mL 0.00-0.15 Troponin I (TnI) levels [...] acute neurological disease, and persistent tachyarrhythmia.BASIC METABOLIC [id number] 06:55:00 Test Item Value Reference Range Interpretation Comments SODIUM (BEAKER) 140 meq/L 135-148 (test code = 381) POTASSIUM (BEAKER) 3.8 meq/L 3.6-5.5 (test code = 379) CHLORIDE (BEAKER) 107 meq/L 98-106 H (test code = 382) CO2 (BEAKER) (test 25 meq/L 20-29 code = 355) BLOOD UREA NITROGEN 11 mg/dL 10-26 (BEAKER) (test code = 354) CREATININE (BEAKER) 0.80 mg/dL 0.50-1.20 (test code = 358) GLUCOSE RANDOM 91 mg/dL 70-110 (BEAKER) (test code = 652) CALCIUM (BEAKER) 8.6 mg/dL 8.5-10.5 (test code = 697) EGFR (BEAKER) (test 104 mL/min/1.73 ESTIM ATED GFR IS code = 1092) sq m NOT ACCURATE CREATININE CLEARANCE IN PREDICTING GLOMERULAR FILTRATION RATE . ESTIMATED GFR I S NOT APPLICABLE FOR DIALYSIS PATIEN TS. [id number] 06:49:00 Test Item Value Reference Range Interpretation Comments MAGNESIUM (BEAKER) (test code = 2.4 mg/dL 1.5-3.0 627) TROPONIN [id number] 00:03:00 Test Item Value Reference Range Interpretation Comments TROPONIN I (BEAKER) (test code = 397) < ng/mL 0.00-0.15 Troponin I (TnI) levels [...] disease, and persistent tachyarrhythmia.B-TYPE NATRIURETIC FACTOR (BNP) 2018-02-01 00:02:00 Test Item Value Reference Range Interpretation Comments B-TYPE NATRIURETIC PEPTIDE (BEAKER) 5 pg/mL 0-100 (test code = 700) LIPID [id number] 23:57:00 Test Item Value Reference Range Interpretation Comments TRIGLYCERIDES (BEAKER) (test code = 53 mg/dL 540) CHOLESTEROL (BEAKER) (test code = 183 mg/dL 631) HDL CHOLESTEROL (BEAKER) (test code 62 mg/dL = 976) LDL CHOLESTEROL CALCULATED (BEAKER) 110 mg/dL (test code = 633) Triglyceride Reference Range: Low Risk <150 Borderline 150-199 High Risk 200-499 Very High Risk >=500Cholesterol Reference Range: Low Risk <200 Borderline 200-239 High Risk >240HDL Cholesterol Reference Range: Low Risk >=60 High Risk <40LDL Cholesterol Reference Range: Optimal <100 Near Optimal 100-129 Borderline 130-159 High 160-189 Very High >=190ED2 CT ANGIO CHEST W [id number] 11:04:2220 g Cathlon Above the Antecubital or [...] was performed according to the our departmental dose-optim izationprogram which includes automated exposure control, adjustment of [...] lymphadenopathy.There is no mediastinal, hilar, or subcarinal lymphadenopat hy.There are no skeletal abnormalities.IMPRESSION1. Negative contrast enhanced CT scan of the chest.No evidence of acutepulmonary embolus.This final report was electronically signed by Dr Yobany Beach MD 01/29/201810:58 AMDictated By: YOBANY BEACHDate: 01/29/2018 11:04ED2 TROPONIN-I [id number] 10:56:00 Test Item Value Reference Range Interpretation Comments Troponin-I (test 0.000 ng/ml 0.000-0.034 The 99th Pe rcentile URL code = TROP) is 0.034 ng/mL. The Joint Society of Cardiology/[facility] College of Card iology (ESC/ACC) and [facility] Clinical [facility] [employer] of [place] [facility] Practices (NACB ) recommends that the diagnosis of AM I includes the presence of clinical history suggest rajani of Acute Coronary Syndrome (ACS) and a max imum concentration o f cardiac troponin exceed ing the 99th percentile of a normal referenc e population [upp er reference limit (URL)] on at least one oc casion during the firs t 24 hours after the clini magdaleno event. ED2 [id number] 10:51:00 Test Item Value Reference Range Interpretation Comments Sodium (test code = NA) 137 mmol/l 128-145 Potassium (test code = K) 3.3 mmol/l 3.6-5.1 L CO2 (test code = CO2) 23 mmol/l 18-33 Chloride (test code = CL) 103 mmol/l 98-108 Glucose (test code = GLU) 137 mg/dl 73-118 H Calcium (test code = CALC) 8.1 mg/dl 8.0-10.3 BUN (test code = BUN) 15 mg/dl 7-22 Creatinine (test code = CREA) 0.8 mg/dl 0.6-1.2 Alkaline Phos (test code = ALKP) 71 U/L 42-141 ALT (SGPT) (test code = ALT) 15 U/L 10-47 AST (SGOT) (test code = AST) 28 U/L 11-38 Total Bilirubin (test code = TBIL) 0.7 mg/dl 0.2-1.6 Albumin (test code = ALB) 3.8 gm/dl 3.3-5.5 T Protein (test code = TP) 6.9 gm/dl 6.4-8.1 ED2 [id number] 10:51:00 Test Item Value Reference Range Interpretation Comments Pro-BNP(B-Peptide) <15 0-125 N THE METHO DOLOGY FOR DETECTION (test code = OF B-NATRIURETI C PEPTIDE HAS PROBNP) BEEN CHANGED T O "NT pro-BNP". THE N ORMAL RANGES HAVE CHANGED. PLEASE NOTE THAT RANGES ARE DEFINED BY THE AGE OF THE PATIENT. (<75 years old = 0-1 25 pg/ml 75years and old er = 0-450pg/ml). V ALUES ARE NOT INTERCHANGEABLE BETWEEN METHODS. 2006 ED2 [id number] 10:50:00 Test Item Value Reference Range Interpretation Comments WBC (test code = WBC) 6.4 10\\S\\9/L 3.5-10.0 LY% (test code = LY) 28.7 % 15.0-50.0 MIDS% (test code = MIDS) 6.9 % 2.0-15.0 Granulocytes % (test code = 64.4 % 35.0-80.0 GRA%) Lymphocytes (test code = 1.8 10\\S\\9/L 0.5-5.0 LYMPH) MID (test code = MID) 0.5 10\\S\\9/L 0.1-1.5 Granulocytes (test code = 4.1 10\\S\\9/L 1.2-8.0 GRAN) RBC (test code = RBC) 3.99 10\\S\\12/L 3.50-5.50 Hemoglobin (test code = HGB) 10.2 gm/dl 11.5-16.5 L Hematocrit (test code = HCT) 29.5 % 35.0-55.0 L MCV (test code = MCV) 73.8 fL 75.0-100.0 L MCH (test code = MCH) 25.6 pg 25.0-35.0 MCHC (test code = MCHC) 34.7 gm/dl 31.0-38.0 RDW % (test code = RDW%) 17.0 % 11.0-16.0 H Platelet (test code = PLT) 299 10\\S\\9/L 100-400 MPV (test code = MPV) 7.3 fL 8.0-11.0 A ED2 XR CHEST 2 PA [id number] 09:49:15Procedure: ED2 XR CHEST 2 PA LATERALOrder date: 01/29/2018 9:18 AMOrdering Provider: ITALIA RITTERMONSClinical Indication: CHEST PAIN: Pain-ChestComparison: November 14, 2017Findings:Stable ateqm-vxsltGnbq-P-Cath.Cardiomediastinal silhouette is within normal limits.The lungs are clear.No pleural effusion or pneumothorax. Osseous structures are nonacute.No evidence of active tuberculosis.Impression:Stable and nonacute two- view chest.This final report was electronically signed by Dr Yobany Beach MD 01/29/20189:43 AMDictated By: YOBANY BEACHDate: 01/29/2018 09:49CT, CHEST WITH IV CONTRAST- PE TEST [id number] 20:29:00FINAL REPORT HISTORY: chest pain COMPARISON : [...] some linear subsegmental atelectasis versus scarring. Signed: Kayli Combs MDReport Verified Date/Time: 01/24/2018 20:29:12 Reading Location: [facility] [id number] Consult Reading Room BASI METABOLIC [id number] 17:45:00 Test Item Value Reference Range Interpretation Comments SODIUM (BEAKER) 138 meq/L 135-148 (test code = 381) POTASSIUM (BEAKER) 3.7 meq/L 3.6-5.5 (test code = 379) CHLORIDE (BEAKER) 104 meq/L 98-106 (test code = 382) CO2 (BEAKER) (test 24 meq/L 20-29 code = 355) BLOOD UREA NITROGEN 18 mg/dL 10-26 (BEAKER) (test code = 354) CREATININE (BEAKER) 0.90 mg/dL 0.50-1.20 (test code = 358) GLUCOSE RANDOM 119 mg/dL 70-110 H (BEAKER) (test code = 652) CALCIUM (BEAKER) 8.5 mg/dL 8.5-10.5 (test code = 697) EGFR (BEAKER) (test 90 mL/min/1.73 ESTIMA NEIL GFR IS code = 1092) sq m NOT ACCURATE CREATININE CLEARANCE IN PREDICTING GLOMERULAR FILTRATION RATE . ESTIMATED GFR I S NOT APPLICABLE FOR DIALYSIS PATIEN TS. TROPONIN [id number] 13:54:00 Test Item Value Reference Range Interpretation Comments TROPONIN I (BEAKER) (test code = 397) < ng/mL 0.00-0.15 Troponin I (TnI) levels [...] and persistent tachyarrhythmia.CREATINE KINASE (CK), TOTAL AND MB 2018-01-22 13:53:00 Test Item Value Reference Range Interpretation Comments CREATINE KINASE TOTAL (BEAKER) 53 U/L 40-250 (test code = 380) CREATINE KINASE-MB (BEAKER) (test 0.7 ng/mL 0.0-4.9 code = 750) CREATINE KINASE-MB INDEX (BEAKER) 1.3 % (test code = 395) CK-MB Reference Range:<5 Normal5-10 Borderline>10 AbnormalCARDIAC PANEL TRIAGE [id number] 16:40:00 Test Item Value Reference Range Interpretation Comments TROPONIN I (test code = GTPI) <0.05 ng/mL <=0.05 CKMB (test code = GCKMP) <1.0 ng/mL <=4.2 DRUGS OF ABUSE*GP*2017-12-16 15:54:00 Test Item Value Reference Range Interpretation Comments DRUG SCRN (test URINE DRUG SCREEN code = HDOA) This is an unconfirmed screening result and should not be used for non-medical purposes PHENCYCLID (test Negative NEGATIVE code = GPCP) BENZODIAZP (test Negative NEGATIVE code = GBZO) COCAINE (test code Negative NEGATIVE = GCOC) AMPHETHETM (test Negative NEGATIVE code = GAMP) THC (test code = Negative NEGATIVE GTHC) OPIATES (test code Positive NEGATIVE A = TOÑA) BARBITURAT (test Negative NEGATIVE code = GBAR) DOAH (test code = UR GDOAH) INE DRUG SCREEN Cut-off values are as follows: --------- Phencyclidine 25 ng/mL Tetrahydrocannabinol 50 ng/mL Benzodiazepines 300 ng/mL Opiates 300 ng/mL Cocaine 300 ng/mL Barbiturates 300 ng/mL Amphetamines 1000 ng/mL CT PE PROTOCOL*GP*2017-12-16 15:51:58CT CHEST WITH CONTRAST, PE PROTOCOL:Location code: [id number] HISTORY: [id number]: Chest pain, shortness of breathCOMPARISON: 10/14/16, 03/03/16, [...] MICROSCOPICGP2017-12-16 15:43:00 Test Item Value Reference Range Interpretation Comments COLOR (test code = COLU) Yellow YELLOW A CLARITY (test code = CLA) Clear CLEAR GLUCOSE UR (test code = UA Negative NEGATIVE GLUCOSE) BILI UR (test code = BILE) Negative NEGATIVE KETONES UR (test code = CALI) Negative NEGATIVE SP GRAVITY (test code = SPGR) 1.020 1.005-1.030 PH UR (test code = PH) 7.0 4.5-8.0 PROTEIN UR (test code = PU) Negative NEGATIVE NITRITE UR (test code = Negative NEGATIVE NITRITE) UROBIL UR (test code = GUROQ) 0.2 E.U./dL UROBIL UR (test code = 0.2 - 1.0 EU/dL GUROQC) BLOOD UR (test code = UA Negative NEGATIVE BLOOD) LEUK ES UR (test code = LEUK) Negative NEGATIVE CARDIAC PANEL TRIAGE GP2017-12-16 14:32:00 Test Item Value Reference Range Interpretation Comments TROPONIN I (test code = GTPI) <0.05 ng/mL <=0.05 CKMB (test code = GCKMP) 1.2 ng/mL <=4.2 COMPREHENSIVE METABOLIC KANG *GP* [id number] 14:23:00 Test Item Value Reference Range Interpretation Comments ALBUMIN (test code = GALB) 4.0 g/dL 3.5-5.5 ALK PHOS (test code = GALP) 61 U/L 53-128 ALT (test code = GALT) 25 U/L 10-47 AST (test code = SUSANNA) 35 U/L 11-38 BUN (test code = GBUN) 9 mg/dL 7-22 CALCIUM (test code = GCL+) 9.0 mg/dL 8.0-10.3 CHLORIDE (test code = GCL-) 105 mmol/L 98-108 CREATININE (test code = GCRE) 0.9 mg/dL 0.6-1.2 GLUCOSE (test code = GGUL) 123 mg/dL 73-118 H POTASSIUM (test code = GK+) 3.8 mmol/L 3.6-5.1 SODIUM (test code = GNA+) 138 mmol/L 128-145 BILI TOTAL (test code = GTBIL) 0.6 mg/dL 0.2-1.6 TCO2 (test code = GTC02) 27 mmol/L 18-33 PROTEIN (test code = GTP) 7.4 g/dL 6.4-8.1 CHEST 1 VIEW*GP*2017-12-16 14:20:51Portable AP chest, 1 viewLocation Code: [id number] HISTORY: [id number]: Chest painCOMPARISON: 12/22/16COMMENT: The lungs are clear and well inflated. The costophrenic angles are sharp. Thecardiomediastinal silhouette is unremarkable. The bones are intact. Right xwphwOdtp-U-Yexd tip overlies the superiorvena cava, unchanged.IMPRESSION: Stable chest with no acute abnormality.CBC (INCLUDES AUTOMATED DIFFERENTIAL) * 2017-12-16 14:14:00 Test Item Value Reference Range Interpretation Comments WBC (test code = WBC) 7.1 10\\S\\3/uL 4.5-11.0 RBC (test code = RBC) 4.55 10\\S\\6/uL 4.20-5.60 HGB (test code = HBG) 11.0 g/dL 14.0-18.0 L HCT (test code = HCT) 34.0 % 35.0-46.0 L MCV (test code = MCV) 74.8 fL 80.0-94.0 L MCH (test code = GMCH) 24.1 pg 28.2-32.8 L MCHC (test code = MCHC) 32.2 g/dL 32.0-36.0 RDW (test code = RDW) 17.4 % 11.5-14.5 H PLT (test code = PLT) 320 10\\S\\3/uL 130-400 NEUTROP # (test code = NE#) 5.0 10\\S\\3/uL 2.0-8.0 LYMPH # (test code = LY#) 1.7 10\\S\\3/uL 1.2-4.0 MID # (test code = GMID#) 0.4 10\\S\\3/uL 0.0-1.1 GRA % (test code = GRA%) 70.3 % 35.0-73.0 LYMPH % (test code = GLY%) 23.9 % 20.0-55.0 MID % (test code = GMID%) 5.8 % 0.0-10.0 ED2 TROPONIN-I [id number] 14:21:00 Test Item Value Reference Range Interpretation Comments Troponin-I (test 0.000 ng/ml 0.000-0.034 The 99th Pe rcentile URL code = TROP) is 0.034 ng/mL. The Joint Society of Cardiology/[facility] College of Card iology (ESC/ACC) and [facility] of Clinical [facility] Standards of La boratory Practices (NACB ) recommends that the diagnosis of AM I includes the presence of clinical history suggest rajani of Acute Coronary Syndrome (ACS) and a max imum concentration o f cardiac troponin exceed ing the 99th percentile of a normal referenc e population [upp er reference limit (URL)] on at least one oc casion during the firs t 24 hours after the clini magdaleno event. ED2 XR CHEST 2 PA [id number] 12:47:27Procedures: ED2 XR CHEST 2 PA LATERALExam Date: 11/14/2017 11:00 AMOrdering Physician: HUMBERTO Valdesinical Indication: cp/sobComparison: Chest radiograph 06/23/14Findings:Technique: Frontal [...] electronically signed by Dr Cathleen Lazar MD11/14/2017 12:41 PMDictated By: CATHLEEN FRYEDate: 11/14/2017 12:47ED2 CT ANGIO CHEST W [id number] 12:46:17 Procedures: ED2 CT ANGIO CHEST W CONTRASTExam Date: 11/14/2017 11:45 AMOrdering Physician: HUMBERTO Valdesinical Indication: rule out peComparison: Chest CT, 06/23/14; chest radiograph, 06/14/18TECHNIQUE: Spiral multislice scanning was obtained through the thorax and aportion of the upper abdomen with a high rate of intravenous contrast infusionfor opacification of the pulmonary arteries. 2- D reconstructions were obtainedaccording to our usual protocol, [...] significant abnormality.Vascular: Limited evaluation is without significant abno rmality.MEDIASTINUM:Aorta: Atherosclerotic calcific plaque of the coronary arteries, aorta, andmajor branches.Airways: No significant abnormality.Lymph nodes: No lymphadenopathy.Heart: No significant abnormality.Esophagus: No significant abnormality.LUNGS:Pneumothorax: None.Lungs: Minimal bilateral dependent atelectasis. No worrisome pulmonary nodulesor masses.Effusion: None.Vascular: The pulmonary arterial vasculature is well opacified for evaluationof pulmonary embolism. No significant filling defects are demonstrated withinthe pulmonary trunk, main pulmonary arteries, segmental, or subse gmentalbranches.Airways: No significant abnormality.UPPER ABDOMEN: Hypoattenuation of the [...] PMDictated By: CATHLEEN FRYEDate: 11/14/2017 12:46ED2 TROPONIN-I [id number] 11:38:00 Test Item Value Reference Range Interpretation Comments Troponin-I (test 0.000 ng/ml 0.000-0.034 The 99th Pe rcentile URL code = TROP) is 0.034 ng/mL. The Joint Society of Cardiology/[facility] College of Card iology (ESC/ACC) and t [facility] of Clinical [facility] Standards of [place] boratory Practices (NACB ) recommends that the diagnosis of AM I includes the presence of clinical history suggest rajani of Acute Coronary Syndrome (ACS) and a max imum concentration o f cardiac troponin exceed ing the 99th percentile of a normal referenc e population [upp er reference limit (URL)] on at least one oc casion during the firs t 24 hours after the clini magdaleno event. ED2 [id number] 11:38:00 Test Item Value Reference Range Interpretation Comments Pro-BNP(B-Peptide) <15 0-125 N THE METHO DOLOGY FOR DETECTION (test code = OF B-NATRIURETI C PEPTIDE HAS PROBNP) BEEN CHANGED T O "NT pro-BNP". THE N ORMAL RANGES HAVE CHANGED. PLEASE NOTE THAT RANGES ARE DEFINED BY THE AGE OF THE PATIENT. (<75 years old = 0-1 25 pg/ml 75years and old er = 0-450pg/ml). V ALUES ARE NOT INTERCHANGEABLE BETWEEN METHODS. 2006 ED2 [id number] 11:31:00 Test Item Value Reference Range Interpretation Comments Sodium (test code = NA) 142 mmol/l 128-145 Potassium (test code = K) 3.5 mmol/l 3.6-5.1 L CO2 (test code = CO2) 24 mmol/l 18-33 Chloride (test code = CL) 105 mmol/l 98-108 Glucose (test code = GLU) 196 mg/dl 73-118 H Calcium (test code = CALC) 8.3 mg/dl 8.0-10.3 BUN (test code = BUN) 10 mg/dl 7-22 Creatinine (test code = CREA) 0.9 mg/dl 0.6-1.2 ED2 [id number] 11:21:00 Test Item Value Reference Range Interpretation Comments WBC (test code = WBC) 6.1 10\\S\\9/L 3.5-10.0 LY% (test code = LY) 33.0 % 15.0-50.0 MIDS% (test code = MIDS) 7.2 % 2.0-15.0 Granulocytes % (test code = 59.8 % 35.0-80.0 GRA%) Lymphocytes (test code = 2.0 10\\S\\9/L 0.5-5.0 LYMPH) MID (test code = MID) 0.4 10\\S\\9/L 0.1-1.5 Granulocytes (test code = 3.7 10\\S\\9/L 1.2-8.0 GRAN) RBC (test code = RBC) 4.06 10\\S\\12/L 3.50-5.50 Hemoglobin (test code = HGB) 10.1 gm/dl 11.5-16.5 L Hematocrit (test code = HCT) 31.4 % 35.0-55.0 L MCV (test code = MCV) 77.4 fL 75.0-100.0 MCH (test code = MCH) 25.0 pg 25.0-35.0 MCHC (test code = MCHC) 32.2 gm/dl 31.0-38.0 RDW % (test code = RDW%) 17.9 % 11.0-16.0 H Platelet (test code = PLT) 279 10\\S\\9/L 100-400 MPV (test code = MPV) 7.3 fL 8.0-11.0 A TROPONIN [id number] 07:00:00 Test Item Value Reference Range Interpretation Comments TROPONIN I (BEAKER) (test code = 397) < ng/mL 0.00-0.15 Troponin I (TnI) levels [...] acidosis, acute neurological disease, and persistent tachyarrhythmia.TROPONIN [id number] 00:40:00 Test Item Value Reference Range Interpretation Comments TROPONIN I (BEAKER) (test code = 397) < ng/mL 0.00-0.15 Troponin I (TnI) levels [...] acidosis, acute neurological disease, and persistent tachyarrhythmia.HEMOGLOBIN [id number] 19:40:00 Test Item Value Reference Range Interpretation Comments HEMOGLOBIN A1C (BEAKER) (test code = 5.3 % 4.3-6.1 368) TROPONIN [id number] 18:43:00 Test Item Value Reference Range Interpretation Comments TROPONIN I (BEAKER) (test code = 397) < ng/mL 0.00-0.15 Troponin I (TnI) levels [...] acute neurological disease, and persistent tachyarrhythmia.BASIC METABOLIC [id number] 18:24:00 Test Item Value Reference Range Interpretation Comments SODIUM (BEAKER) 139 meq/L 135-148 (test code = 381) POTASSIUM (BEAKER) 3.5 meq/L 3.6-5.5 L (test code = 379) CHLORIDE (BEAKER) 105 meq/L 98-106 (test code = 382) CO2 (BEAKER) (test 26 meq/L 20-29 code = 355) BLOOD UREA NITROGEN 15 mg/dL 10-26 (BEAKER) (test code = 354) CREATININE (BEAKER) 1.00 mg/dL 0.50-1.20 (test code = 358) GLUCOSE RANDOM 94 mg/dL 70-110 (BEAKER) (test code = 652) CALCIUM (BEAKER) 8.6 mg/dL 8.5-10.5 (test code = 697) EGFR (BEAKER) (test 80 mL/min/1.73 ESTIMA NEIL GFR IS code = 1092) sq m NOT ACCURATE CREATININE CLEARANCE IN PREDICTING GLOMERULAR FILTRATION RATE . ESTIMATED GFR I S NOT APPLICABLE FOR DIALYSIS PATIEN TS. CBC W/PLT COUNT & AUTO [id number] 18:01:00 Test Item Value Reference Range Interpretation Comments WHITE BLOOD CELL COUNT (BEAKER) 8.5 K/ L 4.0-10.0 (test code = 775) RED BLOOD CELL COUNT (BEAKER) 3.95 M/ L 4.20-5.80 L (test code = 761) HEMOGLOBIN (BEAKER) (test code = 11.4 GM/DL 13.0-16.8 L 410) HEMATOCRIT (BEAKER) (test code = 34.6 % 40.0-50.0 L 411) MEAN CORPUSCULAR VOLUME (BEAKER) 87.4 fL 82.0-98.0 (test code = 753) MEAN CORPUSCULAR HEMOGLOBIN 28.9 pg 27.0-33.0 (BEAKER) (test code = 751) MEAN CORPUSCULAR HEMOGLOBIN CONC 33.0 GM/DL 32.0-36.0 (BEAKER) (test code = 752) RED CELL DISTRIBUTION WIDTH 15.7 % 10.3-14.2 H (BEAKER) (test code = 412) PLATELET COUNT (BEAKER) (test 368 K/CU MM 150-430 code = 756) MEAN PLATELET VOLUME (BEAKER) 7.1 fL 6.5-10.5 (test code = 754) NUCLEATED RED BLOOD CELLS 0 /100 WBC 0-0 (BEAKER) (test code = 413) NEUTROPHILS RELATIVE PERCENT 50 % (BEAKER) (test code = 429) LYMPHOCYTES RELATIVE PERCENT 32 % (BEAKER) (test code = 430) MONOCYTES RELATIVE PERCENT 15 % (BEAKER) (test code = 431) EOSINOPHILS RELATIVE PERCENT 2 % (BEAKER) (test code = 432) BASOPHILS RELATIVE PERCENT 0 % (BEAKER) (test code = 437) NEUTROPHILS ABSOLUTE COUNT 4.30 K/ L 1.80-8.00 (BEAKER) (test code = 670) LYMPHOCYTES ABSOLUTE COUNT 2.70 K/ L 1.48-4.50 (BEAKER) (test code = 414) MONOCYTES ABSOLUTE COUNT (BEAKER) 1.30 K/ L 0.00-1.30 (test code = 415) EOSINOPHILS ABSOLUTE COUNT 0.20 K/ L 0.00-0.50 (BEAKER) (test code = 416) BASOPHILS ABSOLUTE COUNT (BEAKER) 0.00 K/ L 0.00-0.20 (test code = 417) CREATINE KINASE (CK), TOTAL AND [id number] 12:25:00 Test Item Value Reference Range Interpretation Comments CREATINE KINASE TOTAL (BEAKER) 72 U/L 40-250 (test code = 380) CREATINE KINASE-MB (BEAKER) (test 0.9 ng/mL 0.0-4.9 code = 750) CREATINE KINASE-MB INDEX (BEAKER) 1.3 % (test code = 395) CK-MB Reference Range:<5 Normal5-10 Borderline>10 AbnormalTROPONIN I 2017-07-13 12:25:00 Test Item Value Reference Range Interpretation Comments TROPONIN I (BEAKER) (test code = 397) < ng/mL 0.00-0.15 Troponin I (TnI) levels [...] DIFFERENTIAL)2017-07-13 06:04:00 Test Item Value Reference Range Interpretation Comments NEUTROPHILS - REL (DIFF) (BEAKER) 38 % (test code = 1359) LYMPHOCYTES - REL (DIFF) (BEAKER) 46 % (test code = 1360) MONOCYTES - REL (DIFF) (BEAKER) 11 % (test code = 1361) EOSINOPHILS - REL (DIFF) (BEAKER) 5 % (test code = 1362) NEUTROPHILS - ABS (DIFF) (BEAKER) 2.13 K/ L 1.80-8.00 (test code = 1365) LYMPHOCYTES - ABS (DIFF) (BEAKER) 2.58 K/ L 1.48-4.50 (test code = 1366) MONOCYTES - ABS (DIFF) (BEAKER) 0.62 K/ L 0.00-1.30 (test code = 1367) EOSINOPHILS - ABS (DIFF) (BEAKER) 0.28 K/ L 0.00-0.50 (test code = 1368) TOTAL COUNTED (BEAKER) (test code = 100 1351) WBC MORPHOLOGY (BEAKER) (test code Normal = 487) PLT MORPHOLOGY (BEAKER) (test code Normal = 486) RBC MORPHOLOGY (BEAKER) (test code Normal = 762) CBC W/PLT COUNT & AUTO [id number] 06:02:00 Test Item Value Reference Range Interpretation Comments WHITE BLOOD CELL COUNT (BEAKER) 5.6 K/ L 4.0-10.0 (test code = 775) RED BLOOD CELL COUNT (BEAKER) 3.60 M/ L 4.20-5.80 L (test code = 761) HEMOGLOBIN (BEAKER) (test code = 10.6 GM/DL 13.0-16.8 L 410) HEMATOCRIT (BEAKER) (test code = 32.3 % 40.0-50.0 L 411) MEAN CORPUSCULAR VOLUME (BEAKER) 89.8 fL 82.0-98.0 (test code = 753) MEAN CORPUSCULAR HEMOGLOBIN 29.3 pg 27.0-33.0 (BEAKER) (test code = 751) MEAN CORPUSCULAR HEMOGLOBIN CONC 32.7 GM/DL 32.0-36.0 (BEAKER) (test code = 752) RED CELL DISTRIBUTION WIDTH 15.9 % 10.3-14.2 H (BEAKER) (test code = 412) PLATELET COUNT (BEAKER) (test 312 K/CU MM 150-430 code = 756) MEAN PLATELET VOLUME (BEAKER) 6.9 fL 6.5-10.5 (test code = 754) NUCLEATED RED BLOOD CELLS 0 /100 WBC 0-0 (BEAKER) (test code = 413) TROPONIN [id number] 05:22:00 Test Item Value Reference Range Interpretation Comments TROPONIN I (BEAKER) (test code = 397) < ng/mL 0.00-0.15 Troponin I (TnI) levels [...] and persistent tachyarrhythmia.CREATINE KINASE (CK), TOTAL AND MB 2017-07-13 05:21:00 Test Item Value Reference Range Interpretation Comments CREATINE KINASE TOTAL (BEAKER) 71 U/L 40-250 (test code = 380) CREATINE KINASE-MB (BEAKER) (test 0.8 ng/mL 0.0-4.9 code = 750) CREATINE KINASE-MB INDEX (BEAKER) 1.1 % (test code = 395) CK-MB Reference Range:<5 Normal5-10 Borderline>10 AbnormalCOMPREHENSIVE METABOLIC [id number] 05:14:00 Test Item Value Reference Range Interpretation Comments TOTAL PROTEIN 6.4 gm/dL 6.0-8.5 (BEAKER) (test code = 770) ALBUMIN (BEAKER) 3.7 g/dL 3.5-5.0 (test code = 1145) ALKALINE PHOSPHATASE 67 U/L 30-115 (BEAKER) (test code = 346) BILIRUBIN TOTAL 0.3 mg/dL 0.1-1.2 (BEAKER) (test code = 377) SODIUM (BEAKER) (test 141 meq/L 135-148 code = 381) POTASSIUM (BEAKER) 3.7 meq/L 3.6-5.5 (test code = 379) CHLORIDE (BEAKER) 106 meq/L 98-106 (test code = 382) CO2 (BEAKER) (test 26 meq/L 20-29 code = 355) BLOOD UREA NITROGEN 19 mg/dL 10-26 (BEAKER) (test code = 354) CREATININE (BEAKER) 1.00 mg/dL 0.50-1.20 (test code = 358) GLUCOSE RANDOM 104 mg/dL 70-110 (BEAKER) (test code = 652) CALCIUM (BEAKER) 9.0 mg/dL 8.5-10.5 (test code = 697) AST (SGOT) (BEAKER) 14 U/L 5-40 (test code = 353) ALT (SGPT) (BEAKER) 10 U/L 5-50 (test code = 347) EGFR (BEAKER) (test 80 mL/min/1.73 ESTIMA NEIL GFR IS code = 1092) sq m NOT ACCURATE CREATININE CLEARANCE IN PREDICTING GLOMERULAR FILTRATION RATE . ESTIMATED GFR I S NOT APPLICABLE FOR DIALYSIS PATIEN TS. LIPID [id number] 05:13:00 Test Item Value Reference Range Interpretation Comments TRIGLYCERIDES (BEAKER) (test code = 159 mg/dL 540) CHOLESTEROL (BEAKER) (test code = 205 mg/dL 631) HDL CHOLESTEROL (BEAKER) (test code 62 mg/dL = 976) LDL CHOLESTEROL CALCULATED (BEAKER) 111 mg/dL (test code = 633) Triglyceride Reference Range: Low Risk <150 Borderline 150-199 High Risk 200-499 Very High Risk >=500Cholesterol Reference Range: Low Risk <200 Borderline 200-239 High Risk >240HDL Cholesterol Reference Range: Low Risk >=60 High Risk <40LDL Cholesterol Reference Range: Optimal <100 Near Optimal 100-129 Borderline 130-159 High 160-189 Very High >=190CREATINE KINASE (CK), TOTAL AND [id number] 23:03:00 Test Item Value Reference Range Interpretation Comments CREATINE KINASE TOTAL (BEAKER) 77 U/L 40-250 (test code = 380) CREATINE KINASE-MB (BEAKER) (test 0.9 ng/mL 0.0-4.9 code = 750) CREATINE KINASE-MB INDEX (BEAKER) 1.2 % (test code = 395) CK-MB Reference Range:<5 Normal5-10 Borderline>10 AbnormalTROPONIN I 2017-07-12 23:03:00 Test Item Value Reference Range Interpretation Comments TROPONIN I (BEAKER) (test code = 397) < ng/mL 0.00-0.15 Troponin I (TnI) levels [...] acute neurological disease, and persistent tachyarrhythmia.CARDIAC PROFILE *WW*2017-02-21 04:40:00 Test Item Value Reference Range Interpretation Comments TROPONIN I (test code = A84) <0.015 ng/mL 0.000-0.045 CKMB (test code = A49) 1.4 ng/mL <=3.6 CPK (test code = 32A) 92 IU/L 39-308 XR CHEST 1 VIEW PORTABLE 2017-02-21 04:12:23CHEST AP viewLOCATION: [id number] INDICATION: Chest pain COMPARISON: March 14, 2017FINDINGS: Bord lakshmi low lung volumes. No focal consolidation or air space opacities. Nopleural effusions or pneumothorax.The heart size is normal. There is a right chest wall implantable port with itstip at the distal SVC.No acute osseous abnormality. The visualized thoracic soft tissues and upperabdomen are unrema rkable.IMPRESSION:No evidence of acute chest pathology.D-DIMER 2017-02-21 03:46:00 Test Item Value Reference Range Interpretation Comments D-DIMER (test code = <200 ng/mL D-DU 0-234 DDI) D-DIMER COMMENT (test *Level to rule out code = DDCOM) DVT or PE: <235 ng/mL D-DU* PRO TIME AND PTT 2017-02-21 03:46:00 Test Item Value Reference Range Interpretation Comments PT (test code = 11.3 s 9.8-13.6 TT) INR (test code = 1.0 INR) INRH (test code = SUGGESTED INRH) THERAPEUTIC RANGE FOR INR: 2.5 - 3.5 For Patients with Prosthetic Valves or Patients with recurrent Thromboembolic Events 2.0 - 3.0 For Most Other Applications PTT (test code = 29.3 s 20.2-38.0 PTT) PTTH (test code = To monitor the PTTH) effectiveness of heparin, we offer the Anti-Xa (Heparin Assay). It can be used for either unfractinated or LMW Heparin. Order Code is ANTI-XA CBC WITH MANUAL DIFF *WW*2017-02-21 03:39:00 Test Item Value Reference Range Interpretation Comments WBC (test code = WBC) 6.4 10\\S\\3/uL 4.5-11.0 RBC (test code = RBC) 3.46 10\\S\\6/uL 4.20-5.60 L HGB (test code = HBG) 8.5 g/dL 14.0-18.0 L HCT (test code = HCT) 27.6 % 35.0-46.0 L MCV (test code = MCV) 79.8 fL 80.0-94.0 L MCH (test code = MCH) 24.6 pg 27.0-31.0 L MCHC (test code = MCHC) 30.8 g/dL 32.0-36.0 L RDW (test code = RDW) 19.2 % 11.5-14.5 H PLT (test code = PLT) 382 10\\S\\3/uL 130-400 MPV (test code = MPV) 9.0 fL 9.4-12.4 L NEUTROP # (test code = 2.9 10\\S\\3/uL 2.0-8.0 NE#) LYMPH # (test code = 2.5 10\\S\\3/uL 1.2-4.0 LY#) MONOCYTE # (test code = 0.9 10\\S\\3/uL 0.0-1.1 MO#) EOSINOPH # (test code = 0.1 10\\S\\3/uL 0.0-0.7 EO#) BASOPHIL # (test code = 0.0 10\\S\\3/uL 0.0-0.3 BA#) IG # (test code = IG#) 0.01 10\\S\\3/uL 0.00-0.06 NRBC # (test code = 0.00 10\\S\\3/uL 0.00-0.01 NRBC#) NEUTROPH % (test code = 44.3 % 35.0-73.0 NE%) LYMPH % (test code = 39.1 % 20.0-55.0 LY%) MONO % (test code = MO%) 14.5 % 2.5-10.0 H EOSINOPH % (test code = 1.6 % 0.0-5.0 EO%) BASOPHIL % (test code = 0.3 % 0.0-2.0 BA%) IG % (test code = IG%) 0.2 % 0.0-0.8 NRBC% (test code = 0.0 % 0.0-0.2 NRBC%) MAN DIFF (test code = MANUAL HMDIFF) DIFFERENTIAL SEG (test code = SEG) 48 % 42-75 BAND (test code = BAND) 0 % 0-8 LYMPH (test code = 24 % 20-51 LYMPH) MONO (test code = MONO) 9 % 3-11 EOS (test code = EOS) 4 % <=10 BASO (test code = BASO) 0 % 0-2 RBC MORPH (test code = ABNORMAL NORMAL A RBCMORN) PLT EST (test code = ADEQUATE ADEQUATE PLTEST) PLT MORPH (test code = NORMAL (1.5-3 um) NORMAL PLTMOR) ANISO (test code = 1+ NONE A ANISO) HYPOCHROM (test code = 2+ NONE A HYPOC) MICROCYTIC (test code = 1+ NONE A MICRO) BRAIN NATRIURETIC PROTEIN 2017-02-21 03:36:00 Test Item Value Reference Range Interpretation Comments proBNP (test code = PBNP) 16 pg/mL 0-125 COMPREHENSIVE METABOLIC KANG 2017-02-21 03:34:00 Test Item Value Reference Range Interpretation Comments GLUCOSE (test code = 06D) 97 mg/dL 75-100 SODIUM (test code = 01A) 142 mmol/L 136-145 POTASSIUM (test code = 01B) 3.6 mmol/L 3.6-5.1 CHLORIDE (test code = 04A) 104 mmol/L 98-107 CO2 (test code = 02A) 27 mmol/L 22-32 ANION GAP (test code = ANG) 14.6 mmol/L BUN (test code = 05D) 16 mg/dL 7-18 CREATININE (test code = 03E) 0.9 mg/dL 0.7-1.3 BUN/CREA R (test code = BCR) 18 12-20 CALCIUM (test code = 09D) 8.9 mg/dL 8.3-9.5 BILI TOTAL (test code = 11A) 0.6 mg/dL 0.2-1.0 PROTEIN (test code = 07D) 7.6 g/dL 6.4-8.2 ALBUMIN (test code = 08D) 4.0 g/dL 3.5-4.8 GLOBULIN (test code = GLB) 3.6 g/dL 1.5-3.8 ALB/GLOB (test code = AGRR) 1.1 1.0-2.6 ALK PHOS (test code = 35A) 86 IU/L 42-121 AST (test code = 30A) 15 IU/L <=42 ALT (test code = 31A) 16 IU/L <=78 CARDIAC PROFILE *WW*2017-02-21 03:33:00 Test Item Value Reference Range Interpretation Comments TROPONIN I (test code = A84) <0.015 ng/mL 0.000-0.045 CKMB (test code = A49) 1.2 ng/mL <=3.6 CPK (test code = 32A) 97 IU/L 39-308 MAGNESIUM WW2017-02-21 03:28:00 Test Item Value Reference Range Interpretation Comments MAGNESIUM (test code = 48A) 2.2 mg/dL 1.8-2.4 CREATINE KINASE (CK), TOTAL AND [id number] 08:12:00 Test Item Value Reference Range Interpretation Comments CREATINE KINASE TOTAL (BEAKER) 91 U/L 40-250 (test code = 380) CREATINE KINASE-MB (BEAKER) (test 1.0 ng/mL 0.0-4.9 code = 750) CREATINE KINASE-MB INDEX (BEAKER) 1.1 % (test code = 395) CK-MB Reference Range:<5 Normal5-10 Borderline>10 AbnormalTROPONIN I 2017-02-17 08:12:00 Test Item Value Reference Range Interpretation Comments TROPONIN I (BEAKER) (test code = 397) < ng/mL 0.00-0.15 Troponin I (TnI) levels [...] and persistent tachyarrhythmia.CBC W/PLT COUNT & AUTO DIFFERENTIAL 2017-02-09 07:57:00 Test Item Value Reference Range Interpretation Comments WHITE BLOOD CELL COUNT (BEAKER) 7.7 K/ L 4.0-10.0 (test code = 775) RED BLOOD CELL COUNT (BEAKER) 3.82 M/ L 4.20-5.80 L (test code = 761) HEMOGLOBIN (BEAKER) (test code = 9.3 GM/DL 13.0-16.8 L 410) HEMATOCRIT (BEAKER) (test code = 29.3 % 40.0-50.0 L 411) MEAN CORPUSCULAR VOLUME (BEAKER) 76.6 fL 82.0-98.0 L (test code = 753) MEAN CORPUSCULAR HEMOGLOBIN 24.3 pg 27.0-33.0 L (BEAKER) (test code = 751) MEAN CORPUSCULAR HEMOGLOBIN CONC 31.8 GM/DL 32.0-36.0 L (BEAKER) (test code = 752) RED CELL DISTRIBUTION WIDTH 22.1 % 10.3-14.2 H (BEAKER) (test code = 412) PLATELET COUNT (BEAKER) (test 341 K/CU MM 150-430 code = 756) MEAN PLATELET VOLUME (BEAKER) 7.2 fL 6.5-10.5 (test code = 754) NUCLEATED RED BLOOD CELLS 0 /100 WBC 0-0 (BEAKER) (test code = 413) NEUTROPHILS RELATIVE PERCENT 50 % (BEAKER) (test code = 429) LYMPHOCYTES RELATIVE PERCENT 34 % (BEAKER) (test code = 430) MONOCYTES RELATIVE PERCENT 14 % (BEAKER) (test code = 431) EOSINOPHILS RELATIVE PERCENT 1 % (BEAKER) (test code = 432) BASOPHILS RELATIVE PERCENT 0 % (BEAKER) (test code = 437) NEUTROPHILS ABSOLUTE COUNT 3.90 K/ L 1.80-8.00 (BEAKER) (test code = 670) LYMPHOCYTES ABSOLUTE COUNT 2.60 K/ L 1.48-4.50 (BEAKER) (test code = 414) MONOCYTES ABSOLUTE COUNT (BEAKER) 1.10 K/ L 0.00-1.30 (test code = 415) EOSINOPHILS ABSOLUTE COUNT 0.10 K/ L 0.00-0.50 (BEAKER) (test code = 416) BASOPHILS ABSOLUTE COUNT (BEAKER) 0.00 K/ L 0.00-0.20 (test code = 417) (MANUAL DIFFERENTIAL)2017-02-09 07:57:00 Test Item Value Reference Range Interpretation Comments TOTAL COUNTED (BEAKER) (test code = 1351) WBC MORPHOLOGY (BEAKER) (test Normal code = 487) PLT MORPHOLOGY (BEAKER) (test Normal code = 486) ANISOCYTOSIS (BEAKER) (test code 1+ few = 961) HYPOCHROMIA (BEAKER) (test code = 2+ moderate 963) CREATINE KINASE (CK), TOTAL AND [id number] 06:53:00 Test Item Value Reference Range Interpretation Comments CREATINE KINASE TOTAL (BEAKER) 116 U/L 40-250 (test code = 380) CREATINE KINASE-MB (BEAKER) (test 1.1 ng/mL 0.0-4.9 code = 750) CREATINE KINASE-MB INDEX (BEAKER) 0.9 % (test code = 395) CK-MB Reference Range:<5 Normal5-10 Borderline>10 AbnormalTROPONIN I 2017-02-09 06:53:00 Test Item Value Reference Range Interpretation Comments TROPONIN I (BEAKER) (test code = 397) < ng/mL 0.00-0.15 Troponin I (TnI) levels [...] acute neurological disease, and persistent tachyarrhythmia.BASIC METABOLIC [id number] 06:45:00 Test Item Value Reference Range Interpretation Comments SODIUM (BEAKER) 143 meq/L 135-148 (test code = 381) POTASSIUM (BEAKER) 3.8 meq/L 3.6-5.5 (test code = 379) CHLORIDE (BEAKER) 107 meq/L 98-106 H (test code = 382) CO2 (BEAKER) (test 26 meq/L 20-29 code = 355) BLOOD UREA NITROGEN 15 mg/dL 10-26 (BEAKER) (test code = 354) CREATININE (BEAKER) 1.00 mg/dL 0.50-1.20 (test code = 358) GLUCOSE RANDOM 106 mg/dL 70-110 (BEAKER) (test code = 652) CALCIUM (BEAKER) 8.8 mg/dL 8.5-10.5 (test code = 697) EGFR (BEAKER) (test 80 mL/min/1.73 ESTIMA NEIL GFR IS code = 1092) sq m NOT ACCURATE CREATININE CLEARANCE IN PREDICTING GLOMERULAR FILTRATION RATE . ESTIMATED GFR I S NOT APPLICABLE FOR DIALYSIS PATIEN TS. TROPONIN [id number] 22:50:00 Test Item Value Reference Range Interpretation Comments TROPONIN I (BEAKER) (test code = 397) < ng/mL 0.00-0.15 Troponin I (TnI) levels [...] and persistent tachyarrhythmia.CREATINE KINASE (CK), TOTAL AND MB 2017-02-08 22:45:00 Test Item Value Reference Range Interpretation Comments CREATINE KINASE TOTAL (BEAKER) 100 U/L 40-250 (test code = 380) CREATINE KINASE-MB (BEAKER) (test 1.0 ng/mL 0.0-4.9 code = 750) CREATINE KINASE-MB INDEX (BEAKER) 1.0 % (test code = 395) CK-MB Reference Range:<5 Normal5-10 Borderline>10 AbnormalPROTHROMBIN TIME/[id number] 22:35:00 Test Item Value Reference Range Interpretation Comments PROTIME (BEAKER) (test code = 10.4 seconds 9.3-12.0 759) INR (BEAKER) (test code = 370) 1.0 <=5.9 RECOMMENDED COUMADIN/WARFARIN INR THERAPY RANGESSTANDARD DOSE: 2.0 - 3.0 Includes: PROPHYLAXIS forvenous thrombosis, systemic embolization; TREATMENT for venous thrombosis and/or pulmonary embolus.HIGH RISK: Target INR is 2.5-3.5 for patients with mechanical heart valves.[id number] 22:35:00 Test Item Value Reference Range Interpretation Comments PARTIAL THROMBOPLASTIN TIME 23.1 seconds 23.0-35.0 (BEAKER) (test code = 760) TROPONIN [id number] 15:08:00 Test Item Value Reference Range Interpretation Comments TROPONIN I (BEAKER) (test code = 397) < ng/mL 0.00-0.15 Troponin I (TnI) levels [...] and persistent tachyarrhythmia.CREATINE KINASE (CK), TOTAL AND MB 2017-01-24 15:07:00 Test Item Value Reference Range Interpretation Comments CREATINE KINASE TOTAL (BEAKER) 355 U/L 40-250 H (test code = 380) CREATINE KINASE-MB (BEAKER) (test 2.2 ng/mL 0.0-4.9 code = 750) CREATINE KINASE-MB INDEX (BEAKER) 0.6 % (test code = 395) CK-MB Reference Range:<5 Normal5-10 Borderline>10 AbnormalCBC W/PLT COUNT & AUTO [id number] 06:58:00 Test Item Value Reference Range Interpretation Comments WHITE BLOOD CELL COUNT (BEAKER) 6.8 K/ L 4.0-10.0 (test code = 775) RED BLOOD CELL COUNT (BEAKER) 3.57 M/ L 4.20-5.80 L (test code = 761) HEMOGLOBIN (BEAKER) (test code = 8.6 GM/DL 13.0-16.8 L 410) HEMATOCRIT (BEAKER) (test code = 28.0 % 40.0-50.0 L 411) MEAN CORPUSCULAR VOLUME (BEAKER) 78.5 fL 82.0-98.0 L (test code = 753) MEAN CORPUSCULAR HEMOGLOBIN 24.2 pg 27.0-33.0 L (BEAKER) (test code = 751) MEAN CORPUSCULAR HEMOGLOBIN CONC 30.9 GM/DL 32.0-36.0 L (BEAKER) (test code = 752) RED CELL DISTRIBUTION WIDTH 22.6 % 10.3-14.2 H (BEAKER) (test code = 412) PLATELET COUNT (BEAKER) (test 297 K/CU MM 150-430 code = 756) MEAN PLATELET VOLUME (BEAKER) 7.2 fL 6.5-10.5 (test code = 754) NUCLEATED RED BLOOD CELLS 0 /100 WBC 0-0 (BEAKER) (test code = 413) NEUTROPHILS RELATIVE PERCENT 46 % (BEAKER) (test code = 429) LYMPHOCYTES RELATIVE PERCENT 38 % (BEAKER) (test code = 430) MONOCYTES RELATIVE PERCENT 14 % (BEAKER) (test code = 431) EOSINOPHILS RELATIVE PERCENT 2 % (BEAKER) (test code = 432) BASOPHILS RELATIVE PERCENT 0 % (BEAKER) (test code = 437) NEUTROPHILS ABSOLUTE COUNT 3.10 K/ L 1.80-8.00 (BEAKER) (test code = 670) LYMPHOCYTES ABSOLUTE COUNT 2.60 K/ L 1.48-4.50 (BEAKER) (test code = 414) MONOCYTES ABSOLUTE COUNT (BEAKER) 0.90 K/ L 0.00-1.30 (test code = 415) EOSINOPHILS ABSOLUTE COUNT 0.20 K/ L 0.00-0.50 (BEAKER) (test code = 416) BASOPHILS ABSOLUTE COUNT (BEAKER) 0.00 K/ L 0.00-0.20 (test code = 417) (MANUAL DIFFERENTIAL)2017-01-24 06:58:00 Test Item Value Reference Range Interpretation Comments TOTAL COUNTED (BEAKER) (test code = 1351) WBC MORPHOLOGY (BEAKER) (test Normal code = 487) PLT MORPHOLOGY (BEAKER) (test Normal code = 486) ANISOCYTOSIS (BEAKER) (test code 2+ moderate = 961) HYPOCHROMIA (BEAKER) (test code = 2+ moderate 963) MICROCYTES (BEAKER) (test code = 1+ few 965) TROPONIN [id number] 06:05:00 Test Item Value Reference Range Interpretation Comments TROPONIN I (BEAKER) (test code = 397) < ng/mL 0.00-0.15 Troponin I (TnI) levels [...] and persistent tachyarrhythmia.CREATINE KINASE (CK), TOTAL AND MB 2017-01-24 06:04:00 Test Item Value Reference Range Interpretation Comments CREATINE KINASE TOTAL (BEAKER) 298 U/L 40-250 H (test code = 380) CREATINE KINASE-MB (BEAKER) (test 2.1 ng/mL 0.0-4.9 code = 750) CREATINE KINASE-MB INDEX (BEAKER) 0.7 % (test code = 395) CK-MB Reference Range:<5 Normal5-10 Borderline>10 AbnormalCOMPREHENSIVE METABOLIC [id number] 06:00:00 Test Item Value Reference Range Interpretation Comments TOTAL PROTEIN 6.5 gm/dL 6.0-8.5 (BEAKER) (test code = 770) ALBUMIN (BEAKER) 4.0 g/dL 3.5-5.0 (test code = 1145) ALKALINE PHOSPHATASE 76 U/L 30-115 (BEAKER) (test code = 346) BILIRUBIN TOTAL 0.5 mg/dL 0.1-1.2 (BEAKER) (test code = 377) SODIUM (BEAKER) (test 142 meq/L 135-148 code = 381) POTASSIUM (BEAKER) 3.5 meq/L 3.6-5.5 L (test code = 379) CHLORIDE (BEAKER) 106 meq/L 98-106 (test code = 382) CO2 (BEAKER) (test 26 meq/L 20-29 code = 355) BLOOD UREA NITROGEN 14 mg/dL 10-26 (BEAKER) (test code = 354) CREATININE (BEAKER) 0.90 mg/dL 0.50-1.20 (test code = 358) GLUCOSE RANDOM 79 mg/dL 70-110 (BEAKER) (test code = 652) CALCIUM (BEAKER) 8.8 mg/dL 8.5-10.5 (test code = 697) AST (SGOT) (BEAKER) 16 U/L 5-40 (test code = 353) ALT (SGPT) (BEAKER) 10 U/L 5-50 (test code = 347) EGFR (BEAKER) (test 91 mL/min/1.73 ESTIMA NEIL GFR IS code = 1092) sq m NOT ACCURATE CREATININE CLEARANCE IN PREDICTING GLOMERULAR FILTRATION RATE . ESTIMATED GFR I S NOT APPLICABLE FOR DIALYSIS PATIEN TS. CREATINE KINASE (CK), TOTAL AND [id number] 04:57:00 Test Item Value Reference Range Interpretation Comments CREATINE KINASE TOTAL (BEAKER) 653 U/L 30-300 H (test code = 380) CREATINE KINASE-MB (BEAKER) (test 0.8 ng/mL 0.0-4.9 code = 750) CREATINE KINASE-MB INDEX (BEAKER) 0.1 % (test code = 395) CK-MB Reference Range:<5 Normal5-10 Borderline>10 AbnormalTROPONIN I 2016-12-16 04:56:00 Test Item Value Reference Range Interpretation Comments TROPONIN I (BEAKER) (test code = 0.03 ng/mL 0.00-0.15 397) Troponin I (TnI) levels must be interpreted [...] acidosis, acute neurological disease, and persistent tachyarrhythmia.LIPID [id number] 04:47:00 Test Item Value Reference Range Interpretation Comments TRIGLYCERIDES (BEAKER) (test code = 79 mg/dL 540) CHOLESTEROL (BEAKER) (test code = 206 mg/dL 631) HDL CHOLESTEROL (BEAKER) (test code 53 mg/dL = 976) LDL CHOLESTEROL CALCULATED (BEAKER) 137 mg/dL (test code = 633) Triglyceride Reference Range: Low Risk <150 Borderline 150-199 High Risk 200-499 Very High Risk >=500Cholesterol Reference Range: Low Risk <200 Borderline 200-239 High Risk >240HDL Cholesterol Reference Range: Low Risk >=60 High Risk <40LDL Cholesterol Reference Range: Optimal <100 Near Optimal 100-129 Borderline 130-159 High 160-189 Very High >=190COMPREHENSIVE METABOLIC [id number] 04:47:00 Test Item Value Reference Range Interpretation Comments TOTAL PROTEIN 7.2 gm/dL 6.0-8.5 (BEAKER) (test code = 770) ALBUMIN (BEAKER) 4.1 g/dL 3.5-5.0 (test code = 1145) ALKALINE PHOSPHATASE 78 U/L 30-115 (BEAKER) (test code = 346) BILIRUBIN TOTAL 0.5 mg/dL 0.1-1.3 (BEAKER) (test code = 377) SODIUM (BEAKER) (test 141 meq/L 135-148 code = 381) POTASSIUM (BEAKER) 3.9 meq/L 3.5-5.5 (test code = 379) CHLORIDE (BEAKER) 109 meq/L 98-106 H (test code = 382) CO2 (BEAKER) (test 23 meq/L 20-31 code = 355) BLOOD UREA NITROGEN 9 mg/dL 10-26 L (BEAKER) (test code = 354) CREATININE (BEAKER) 0.95 mg/dL 0.50-1.20 (test code = 358) GLUCOSE RANDOM 83 mg/dL 70-110 (BEAKER) (test code = 652) CALCIUM (BEAKER) 8.8 mg/dL 8.5-10.5 (test code = 697) AST (SGOT) (BEAKER) 28 U/L 5-40 (test code = 353) ALT (SGPT) (BEAKER) 27 U/L 6-50 (test code = 347) EGFR (BEAKER) (test 86 mL/min/1.73 ESTIMA NEIL GFR IS code = 1092) sq m NOT ACCURATE CREATININE CLEARANCE IN PREDICTING GLOMERULAR FILTRATION RATE . ESTIMATED GFR I S NOT APPLICABLE FOR DIALYSIS PATIEN TS. CBC W/PLT COUNT & AUTO [id number] 04:19:00 Test Item Value Reference Range Interpretation Comments WHITE BLOOD CELL COUNT (BEAKER) 6.6 K/ L 4.0-10.0 (test code = 775) RED BLOOD CELL COUNT (BEAKER) 3.66 M/ L 4.20-5.80 L (test code = 761) HEMOGLOBIN (BEAKER) (test code = 8.5 GM/DL 13.0-16.8 L 410) HEMATOCRIT (BEAKER) (test code = 27.3 % 40.0-50.0 L 411) MEAN CORPUSCULAR VOLUME (BEAKER) 74.7 fL 82.0-98.0 L (test code = 753) MEAN CORPUSCULAR HEMOGLOBIN 23.2 pg 27.0-33.0 L (BEAKER) (test code = 751) MEAN CORPUSCULAR HEMOGLOBIN CONC 31.0 GM/DL 32.0-36.0 L (BEAKER) (test code = 752) RED CELL DISTRIBUTION WIDTH 19.2 % 12.0-15.0 H (BEAKER) (test code = 412) PLATELET COUNT (BEAKER) (test 348 K/CU MM 150-430 code = 756) MEAN PLATELET VOLUME (BEAKER) 6.8 fL 6.5-10.5 (test code = 754) NUCLEATED RED BLOOD CELLS 0 /100 WBC 0-0 (BEAKER) (test code = 413) NEUTROPHILS RELATIVE PERCENT 49 % (BEAKER) (test code = 429) LYMPHOCYTES RELATIVE PERCENT 39 % (BEAKER) (test code = 430) MONOCYTES RELATIVE PERCENT 9 % (BEAKER) (test code = 431) EOSINOPHILS RELATIVE PERCENT 1 % (BEAKER) (test code = 432) BASOPHILS RELATIVE PERCENT 2 % (BEAKER) (test code = 437) NEUTROPHILS ABSOLUTE COUNT 3.20 K/ L 1.80-8.00 (BEAKER) (test code = 670) LYMPHOCYTES ABSOLUTE COUNT 2.60 K/ L 1.48-4.50 (BEAKER) (test code = 414) MONOCYTES ABSOLUTE COUNT (BEAKER) 0.60 K/ L 0.00-1.30 (test code = 415) EOSINOPHILS ABSOLUTE COUNT 0.10 K/ L 0.00-0.50 (BEAKER) (test code = 416) BASOPHILS ABSOLUTE COUNT (BEAKER) 0.10 K/ L 0.00-0.20 (test code = 417) TROPONIN [id number] 13:44:00 Test Item Value Reference Range Interpretation Comments TROPONIN I (BEAKER) (test code = 397) < ng/mL 0.00-0.15 Troponin I (TnI) levels [...] and persistent tachyarrhythmia.CREATINE KINASE (CK), TOTAL AND MB 2016-12-02 13:43:00 Test Item Value Reference Range Interpretation Comments CREATINE KINASE TOTAL (BEAKER) 61 U/L 40-250 (test code = 380) CREATINE KINASE-MB (BEAKER) (test 1.0 ng/mL 0.0-4.9 code = 750) CREATINE KINASE-MB INDEX (BEAKER) 1.6 % (test code = 395) CK-MB Reference Range:<5 Normal5-10 Borderline>10 AbnormalTROPONIN I 2016-12-02 07:21:00 Test Item Value Reference Range Interpretation Comments TROPONIN I (BEAKER) (test code = 397) < ng/mL 0.00-0.15 Troponin I (TnI) levels [...] and persistent tachyarrhythmia.CREATINE KINASE (CK), TOTAL AND MB 2016-12-02 07:20:00 Test Item Value Reference Range Interpretation Comments CREATINE KINASE TOTAL (BEAKER) 58 U/L 40-250 (test code = 380) CREATINE KINASE-MB (BEAKER) (test 0.9 ng/mL 0.0-4.9 code = 750) CREATINE KINASE-MB INDEX (BEAKER) 1.6 % (test code = 395) CK-MB Reference Range:<5 Normal5-10 Borderline>10 AbnormalCBC W/PLT COUNT & AUTO [id number] 22:21:00 Test Item Value Reference Range Interpretation Comments WHITE BLOOD CELL COUNT (BEAKER) 7.3 K/ L 4.0-10.0 (test code = 775) RED BLOOD CELL COUNT (BEAKER) 4.00 M/ L 4.20-5.80 L (test code = 761) HEMOGLOBIN (BEAKER) (test code = 9.4 GM/DL 13.0-16.8 L 410) HEMATOCRIT (BEAKER) (test code = 30.0 % 40.0-50.0 L 411) MEAN CORPUSCULAR VOLUME (BEAKER) 74.9 fL 82.0-98.0 L (test code = 753) MEAN CORPUSCULAR HEMOGLOBIN 23.5 pg 27.0-33.0 L (BEAKER) (test code = 751) MEAN CORPUSCULAR HEMOGLOBIN CONC 31.4 GM/DL 32.0-36.0 L (BEAKER) (test code = 752) RED CELL DISTRIBUTION WIDTH 20.1 % 10.3-14.2 H (BEAKER) (test code = 412) PLATELET COUNT (BEAKER) (test 392 K/CU MM 150-430 code = 756) MEAN PLATELET VOLUME (BEAKER) 6.8 fL 6.5-10.5 (test code = 754) NUCLEATED RED BLOOD CELLS 0 /100 WBC 0-0 (BEAKER) (test code = 413) NEUTROPHILS RELATIVE PERCENT 45 % (BEAKER) (test code = 429) LYMPHOCYTES RELATIVE PERCENT 40 % (BEAKER) (test code = 430) MONOCYTES RELATIVE PERCENT 14 % (BEAKER) (test code = 431) EOSINOPHILS RELATIVE PERCENT 1 % (BEAKER) (test code = 432) BASOPHILS RELATIVE PERCENT 0 % (BEAKER) (test code = 437) NEUTROPHILS ABSOLUTE COUNT 3.30 K/ L 1.80-8.00 (BEAKER) (test code = 670) LYMPHOCYTES ABSOLUTE COUNT 2.90 K/ L 1.48-4.50 (BEAKER) (test code = 414) MONOCYTES ABSOLUTE COUNT (BEAKER) 1.00 K/ L 0.00-1.30 (test code = 415) EOSINOPHILS ABSOLUTE COUNT 0.10 K/ L 0.00-0.50 (BEAKER) (test code = 416) BASOPHILS ABSOLUTE COUNT (BEAKER) 0.00 K/ L 0.00-0.20 (test code = 417) (MANUAL DIFFERENTIAL)2016-12-01 22:21:00 Test Item Value Reference Range Interpretation Comments TOTAL COUNTED (BEAKER) (test code = 1351) WBC MORPHOLOGY (BEAKER) (test Normal code = 487) PLT MORPHOLOGY (BEAKER) (test Normal code = 486) ANISOCYTOSIS (BEAKER) (test code 2+ moderate = 961) HYPOCHROMIA (BEAKER) (test code = 1+ few 963) TROPONIN [id number] 22:13:00 Test Item Value Reference Range Interpretation Comments TROPONIN I (BEAKER) (test code = 397) < ng/mL 0.00-0.15 Troponin I (TnI) levels [...] and persistent tachyarrhythmia.CREATINE KINASE (CK), TOTAL AND MB 2016-12-01 22:12:00 Test Item Value Reference Range Interpretation Comments CREATINE KINASE TOTAL (BEAKER) 68 U/L 40-250 (test code = 380) CREATINE KINASE-MB (BEAKER) (test 1.0 ng/mL 0.0-4.9 code = 750) CREATINE KINASE-MB INDEX (BEAKER) 1.5 % (test code = 395) CK-MB Reference Range:<5 Normal5-10 Borderline>10 AbnormalCOMPREHENSIVE METABOLIC [id number] 22:05:00 Test Item Value Reference Range Interpretation Comments TOTAL PROTEIN 8.0 gm/dL 6.0-8.5 (BEAKER) (test code = 770) ALBUMIN (BEAKER) 4.7 g/dL 3.5-5.0 (test code = 1145) ALKALINE PHOSPHATASE 84 U/L 30-115 (BEAKER) (test code = 346) BILIRUBIN TOTAL 0.5 mg/dL 0.1-1.2 (BEAKER) (test code = 377) SODIUM (BEAKER) (test 139 meq/L 135-148 code = 381) POTASSIUM (BEAKER) 4.0 meq/L 3.6-5.5 (test code = 379) CHLORIDE (BEAKER) 103 meq/L 98-106 (test code = 382) CO2 (BEAKER) (test 26 meq/L 20-29 code = 355) BLOOD UREA NITROGEN 13 mg/dL 10-26 (BEAKER) (test code = 354) CREATININE (BEAKER) 1.00 mg/dL 0.50-1.20 (test code = 358) GLUCOSE RANDOM 118 mg/dL 70-110 H (BEAKER) (test code = 652) CALCIUM (BEAKER) 10.1 mg/dL 8.5-10.5 (test code = 697) AST (SGOT) (BEAKER) 19 U/L 5-40 (test code = 353) ALT (SGPT) (BEAKER) 15 U/L 5-50 (test code = 347) EGFR (BEAKER) (test 81 mL/min/1.73 ESTIMA NEIL GFR IS code = 1092) sq m NOT ACCURATE CREATININE CLEARANCE IN PREDICTING GLOMERULAR FILTRATION RATE . ESTIMATED GFR I S NOT APPLICABLE FOR DIALYSIS PATIEN TS. PROTHROMBIN [id number] 21:58:00 Test Item Value Reference Range Interpretation Comments PROTIME (BEAKER) (test code = 10.5 seconds 9.3-12.0 759) INR (BEAKER) (test code = 370) 1.0 <=5.9 RECOMMENDED COUMADIN/WARFARIN INR THERAPY RANGESSTANDARD DOSE: 2.0 - 3.0 Includes: PROPHYLAXIS forvenous thrombosis, systemic embolization; TREATMENT for venous thrombosis and/or pulmonary embolus.HIGH RISK: Target INR is 2.5-3.5 for patients with mechanical heart valves.[id number] 21:58:00 Test Item Value Reference Range Interpretation Comments PARTIAL THROMBOPLASTIN TIME 32.3 seconds 23.0-35.0 (BEAKER) (test code = 760) CARDIAC [id number] 11:39:00<0.010[facility] ENZ[facility]ES 2016-11-20 11:39:0081[facility] BJVNWUU7098-30-92 11:39:00<0.02 [facility] XEMXZGY2962-57-04 11:39:000.7[facility]AC MTWSEQV7824-00-33 11:39:000.6[facility]annCHEM BHHHS4063-49-85 11:39:001.8 [facility]annCHEM [id number] 11:39:002.5[facility]annELECTROLYTES 2016-11-20 11:39:0010.3[facility] ZkwmirhBPSAVKRUNEYY5707-32-19 11:39:0013[facility] BcvurkeMWPZOMINMYTW6626-04-14 11:39:001.2[facility] UfcuxsjPCNSMQWFXSZL7767-20-72 11:39:003.3[facility] LjyrbmfBUJNZFVQFZHD8435-50-93 11:39:17231Wafdlgrm Puneet UOHLSDULBMVY6087-17-44 11:39:008.4[facility] GnopoewZKWGHCAQSDGO6082-24-61 11:39:98107Ucrnqmfv AswwlbnYZTQVAFSVOCL1784-42-22 11:39:0011[facility] JSEQNBDUMUTN5054-73-49 11:39:57699Wxhnmltd ZzrxpwhOREAPOFSKXVJ7961-64-59 11:39:003.3[facility] JxgyqczWEMYWEYGXXKO1734-96-30 11:39:58970Lvngwbkj Puneet BQFEFYEWWFKX6591-08-09 11:39:000.86[facility] PpbksywBILURFCOJBOF5367-58-31 11:39:0026[facility] JydhdneCJKXAZJJGGOQ0093-41-60 11:39:0027[facility] YFCJQAKGDJJZ6114-12-24 11:39:0022[facility] GrzoawvXOXVIMKDBDJC9592-98-49 11:39:00 4.0[facility] CgwunbjOCATNBEOSSWV1700-31-05 11:39:000.5[facility] JEVAYOHTUUZM2918-74-69 11:39:007.3[facility] EjexxzoBCCVZJFQUMNX2505-79-25 11:39:0078[facility] DkrqrdkBBMPSWYGME6988-89-39 11:39:000.67[facility] SITUGLDPIR0266-57-00 11:39:000.6[facility] MywpeggQWTAVZCOBJ4263-80-14 11:39:001.6 [facility] IvzvtnbWZVPPPMCHP5984-16-89 11:39:003.1[facility]annHEMATOLOGY 2016-11-20 11:39:001.6[facility] GnkoglhLXGSXDEWYQ0259-27-63 11:39:000.1[facility] DrbaxyoGTVZBTWZOP4378-69-81 11:39:000.1[facility] DhbqqduSONARHKFGN4224-16-16 11:39:001+ *ABN*(11/20/16 5:39 AM)[facility] EljoilrUHXUURFQMN5214-36-46 11:39:00 29.5[facility] NakjgybDGWXVZEZHJ8838-77-66 11:39:0010.6[facility]annHEMATOLOGY 2016-11-20 11:39:0058.2[facility] IcmelqyIBGGGPGNTO1975-26-50 11:39:001.11[facility] BmmrllgBJPKRXMSAD3155-04-38 11:39:00 Test Item Value Reference Range Interpretation Comments PT (test code = PT) 14.5 s 12.0-14.7 [facility] YhkhurcSBCZKUVKTT3932-55-38 11:39:00 Test Item Value Reference Range Interpretation Comments PTT (test code = PTT) 32.9 s 22.9-35.8 [facility] FovbnzwXASWGDKJOZ4660-84-76 11:39:0076.5[facility]annHEMATOLOGY 2016-11-20 11:39:0029.2[facility] TjfqiwwIYXLBFWZGY8858-05-09 11:39:00 Test Item Value Reference Range Interpretation Comments MCH (test code = MCH) 24.1 pg 27.0-31.0 [facility] VvkufenBOVDATTDYQ5890-90-31 11:39:33457Wykegrwm HermannHEMATOLOGY 2016-11-20 11:39:0031.5[facility] EdhjicjXKHZKXLGGK1768-49-60 11:39:0020.7[facility] AeuudtiFRTCRLPEQW9262-08-11 11:39:005.3[facility] EgyrkvjUUMUXCTYHJ8557-08-92 11:39:009.2[facility] FogzyatGSHEOFCUPJ6097-86-84 11:39:003.82[facility] PTTSUOWLOG9289-04-05 11:39:006.8[facility] HermannANEMIA ELKYW7440-03-92 03:39:00 10[facility] HermannANEMIA OQLDK2224-84-55 03:39:007[facility] HermannANEMIA STUDY 2014-11-17 03:39:70058Clwzthbi HermannANEMIA DNZIE5136-20-54 03:39:41615Avsprlpx HermannANEMIA PATNO2890-54-60 03:39:0031[facility]annCARDIAC ENZYMES 2014-11-16 23:23:0060[facility]annCARDIAC VHHZRHB7769-59-13 23:23:000.03 [facility]annCHEM VIBCC7210-71-00 23:23:0098[facility]annCHEM PANEL 2014-11-16 23:23:004.0[facility]annCHEM IDMTF9039-50-56 23:23:0017[facility]annCHEM PRNKP8962-61-83 23:23:0017[facility]annCHEM UJUVN3211-12-71 23:23:000.1[facility]annCHEM BNSEM0413-61-35 23:23:007.3[facility]annCHEM JLWFW7743-18-71 23:23:003.3[facility]annCHEM AMOOI5499-93-44 23:23:001.2 [facility]annCHEM EXQLI0619-01-32 23:23:000.5[facility]annCHEM PANEL 2014-11-16 23:23:000.6[facility]annCHEM OBHUY8052-70-75 23:23:003.2[facility]annCHEM ZARAL6219-87-29 23:23:002.1[facility] EnglclqANZMLZBDKUFA7319-55-98 23:23:0011.8[facility] RteintqBIYBSOCBFWIX7497-50-95 23:23:009.0[facility] TBKBZWLYJCMC0236-36-93 23:23:0015[facility] RfslldqWUSTXHJFYFIF5376-58-84 23:23:00 116[facility] YqvysbgRPPTKPOHSOGW9830-28-78 23:23:0026[facility]annELECTROLYTES 2014-11-16 23:23:003.8[facility] GzpjqabUSPXUBTCVPYK2044-25-72 23:23:36336Vudkooou GdnczqhKWEXIFDNLOVZ5514-93-73 23:23:97716Njkhnmlh KdbunujPKQICGGEISJH8655-33-49 23:23:53408Pjfzfkjj YuinohxHGPITUMYNXOA4394-92-59 23:23:000.9[facility] LARQYXSPLE3699-96-21 23:23:006.1[facility] IyahevrSWNRXXEETV9393-79-07 23:23:000.3 [facility] KkhzgfmOSTKJKZZBV8776-31-21 23:23:000.7[facility]annHEMATOLOGY 2014-11-16 23:23:0017.1[facility] XjklbkcOCUXZUSVVD9428-09-18 23:23:001+ *ABN*(11/16/14 5:23 PM)[facility] IptbchbOHJVETFJXV9453-61-29 23:23:0075.8[facility] JtsxpmgNAZOHYCBVD3404-37-79 23:23:000.6[facility] EkybnoyJQQMKNPCAS6959-25-87 23:23:001.6[facility] HhpmuwpKFTVMOTDRX2970-01-28 23:23:000.1[facility] WGFTNKTYAO8609-96-30 23:23:006.9[facility] NpkablmCQQVLMZMLG7895-65-85 23:23:00 Test Item Value Reference Range Interpretation Comments PT (test code = PT) 12.9 s 12.0-14.7 [facility] GiqrjhaFXGNRSPKQI2479-46-11 23:23:00 Test Item Value Reference Range Interpretation Comments PTT (test code = PTT) 26.8 s 22.9-35.8 [facility] WiwvttiRLVBRXPVBR1125-03-96 23:23:000.97[facility]HEMATOLOGY 2014-11-16 23:23:006.9[facility] NonserqFPBORLNJXI0685-57-88 23:23:69037Qjulopdi DrnfawfWYOEVOGWIZ6372-86-01 23:23:0079.4[facility] YkndqizGVDSWXKMFM0239-15-74 23:23:0029.3[facility] NlcozgzBDIHQJBTLQ1338-12-35 23:23:00 Test Item Value Reference Range Interpretation Comments MCH (test code = MCH) 25.8 pg 27.0-31.0 [facility] JlpwolkRAJERHYQMX4441-23-31 23:23:0016.7[facility]annHEMATOLOGY 2014-11-16 23:23:0032.5[facility] IjzxfumYDQVZNOKVB3746-56-45 23:23:009.2[facility] BwfkzfjBJFBMYEOGS8206-84-94 23:23:009.5[facility] MdqlkwwRVLVPNGZBY6711-54-89 23:23:003.69[facility] OHFOV3974-37-58 15:04:34Not Indicated *NA*(08/06/14 10:04 AM)[facility] JFLYC5392-22-24 15:04:340.2 [facility] LKUZA2510-42-54 15:04:34Negative (08/06/14 10:04 AM) [facility] HNXVH7629-97-29 15:04:34Negative (08/06/14 10:04 AM) [facility] IEGTZ9363-55-13 15:04:34 Test Item Value Reference Range Interpretation Comments UA Spec Grav (test code = UA Spec 1.020 1 Grav) [facility] OUOSS1559-17-56 15:04:34Yellow *NA*(08/06/14 10:04 AM) [facility] OCDDF8888-37-34 15:04:34Clear (08/06/14 10:04 AM) [facility] FTHMI3839-40-58 15:04:34 Test Item Value Reference Range Interpretation Comments UA pH (test code = UA pH) 6.0 1 5.0-8.0 [facility] JWJAA5436-77-01 15:04:34Negative (08/06/14 10:04 AM) [facility] EHKLH9275-07-01 15:04:34Negative *NA*(08/06/14 10:04 AM)[facility]annBL[facility]OD BANK OFGJFPW5430-18-79 13:55:00Negative (08/06/14 8:55 AM)[facility] BufidyqYUJHZVAWFW2502-66-98 13:55:0032.7[facility]annHEMATOLOGY 2014-08-06 13:55:00 Test Item Value Reference Range Interpretation Comments MCH (test code = MCH) 25.3 pg 27.0-31.0 [facility] DmlsbfqPRNLKHUDGP3419-86-45 13:55:008.7[facility]annHEMATOLOGY 2014-08-06 13:55:004.60[facility] NihzneuKOHEAZYMBT5942-64-18 13:55:007.0[facility] HerjhipOHROOVNRCL0847-38-83 13:55:39870Jsjuxoci XylczfyAQXOYBRZIQ7732-51-98 13:55:0020.3[facility] GexacyoVBWEHDLFPC6313-88-83 13:55:0077.4[facility] DPNQJOXCMY9170-65-59 13:55:0011.6[facility] UwaptfuCCTVIQJDPX8346-08-74 13:55:00 35.6[facility] IgjueioKFCEIAFYFW2362-61-98 13:55:000.1[facility]annHEMATOLOGY 2014-08-06 13:55:000.1[facility] BqquqtxJYXPUTLYAO1898-28-21 13:55:000.7[facility] PhnxpbuTPVFMCDSLF2989-21-30 13:55:001+ *ABN*(08/06/14 8:55 AM)[facility] MBQJREESCP5451-02-08 13:55:002.5[facility] QkunldqPHLPLGIDTM8114-49-40 13:55:005.3 [facility] KiyjfabWRONZTDJFR6983-87-72 13:55:000.9[facility]annHEMATOLOGY 2014-08-06 13:55:001.3[facility] NigdhxqQMXDWCUGRF5015-81-05 13:55:007.7[facility] FvuczgaYPNGAWTPGS8495-21-15 13:55:0061.4[facility] JcwpcfwAYDENQYTKV5992-43-17 13:55:0028.7[facility] TyieucdNQCNOXLSJX8432-51-08 13:55:000.89[facility] TBGKNEKQFA9390-18-25 13:55:00 Test Item Value Reference Range Interpretation Comments PTT (test code = PTT) 31.4 s 22.9-35.8 [facility] UwwxksiCZIFUXXDMG0379-51-84 13:55:00 Test Item Value Reference Range Interpretation Comments PT (test code = PT) 12.0 s 12.0-14.7 [facility]annCHEM IXBLM4663-94-00 16:00:003.3[facility]annCHEM PANEL 2014-08-01 16:00:009[facility]annCHEM OLYAR8850-17-74 16:00:0014[facility]annCHEM UQHTI5224-15-56 16:00:001.0[facility]annCHEM UACHO3712-17-34 16:00:001.1[facility]annCHEM CNFXQ3717-92-37 16:00:0071[facility]annCHEM LQFLQ9314-11-18 16:00:006.7[facility]annCHEM MLOGL6446-16-07 16:00:82976 [facility]annCHEM RROEE1950-53-41 16:00:008.9[facility] HermannCHEM PANEL 2014-08-01 16:00:0025[facility] HermannCHEM SNENN4367-44-49 16:00:003.4[facility] HermannCHEM AHENB9618-74-22 16:00:80008Nyliubvb HermannCHEM JUUGK2904-17-38 16:00:004.1[facility] HermannCHEM EWIQV4073-77-61 16:00:000.9[facility]annCHEM TSYIQ7925-37-62 16:00:82875Xzmbpqiu HermannCHEM RILIM4012-83-94 16:00:78441 [facility]annCHEM CMJIW6624-67-61 16:00:0030[facility] HermannCHEM PANEL 2014-08-01 16:00:0033[facility] HermannCHEM MUIXK8949-00-19 16:00:0014.1[facility] EvdccdlBWCILJTJVP0428-95-59 16:00:007.3[facility] HpnxdwoVAYMQUMCTN6519-53-45 16:00:0018.5[facility] YeatvlxTSUYNZBRRJ4395-92-73 16:00:96833Gnwnlwwn [place] LQCFVKXFTR6159-66-04 16:00:0032.2[facility] PmweqdyBZUNDXHNHH2637-04-61 16:00:00 4.25[facility] WyxvvltIJYQZKNTXK6078-15-63 16:00:00 Test Item Value Reference Range Interpretation Comments MCH (test code = MCH) 24.9 pg 27.0-31.0 [facility] JlioahfSIZZSXSJFO7251-58-57 16:00:0032.8[facility] HermannHEMATOLOGY 2014-08-01 16:00:0010.6[facility] AovrvilNIKJEFRGYL4922-62-88 16:00:0013.5[facility] XnanvzaHFACJCTWOC7847-63-97 16:00:0077.3[facility] BhrxvwrDJZEBABQZW9777-47-84 16:00:000.1[facility] FtiaiabLYBQCRSFCZ7366-80-94 16:00:001+ *ABN*(08/01/14 11:00 AM)[facility] EavdznmJWYMFPXNCD0989-29-34 16:00:001.0[facility] HermannHEMATOLOGY 2014-08-01 16:00:0011.7[facility] OucrsadVDARSJYSRK8747-56-46 16:00:000.7[facility] AhaollmZSZVJHJAWO0158-35-93 16:00:005.3[facility] ZpazqjgLXUWWWXDSH2657-58-01 16:00:000.7[facility] ShdedxvKUPMLLSKNP9449-49-57 16:00:0086.7[facility] ENBTXBUEAR5781-51-17 16:00:007.3[facility] HermannBLOOD BANK AUYIQTX2750-68-70 21:36:00Negative (07/31/14 4:36 PM)[facility] BANK THHTCCF7225-31-67 20:57:00Product available 1(07/31/14 3:57 PM)[facility] HermannCARDIAC ENZYMES 2014-07-31 19:16:160.6[facility] AtvzvpfGOKIGUWWVI0543-22-64 19:16:16 Test Item Value Reference Range Interpretation Comments PTT (test code = PTT) 26.7 s 22.9-35.8 [facility] HermannANEMIA FTMWM1402-96-07 19:16:0027[facility] HermannANEMIA STUDY 2014-07-31 19:16:005[facility] HermannANEMIA TLEUG2516-19-34 19:16:0024[facility] HermannANEMIA ZLJPR9064-78-68 19:16:38838Oviswdve HermannANEMIA BTODD7816-60-93 19:16:32785Skrpiito HermannCARDIAC FUWDDNK0420-50-93 12:15:000.6[facility] CARDIAC FEVJPMV6896-99-76 12:15:00<0.02[facility] HermannCHEM IMOHL6715-59-35 12:15:003.2[facility] HermannCHEM YZUIG4639-19-62 12:15:001.0[facility] HermannCHEM BIHPI0348-44-60 12:15:0021[facility] HermannCHEM KYHPN1143-36-34 12:15:0011.5 [facility]annCHEM SGKKX0204-44-49 12:15:006.4[facility] HermannCHEM PANEL 2014-07-31 12:15:0012[facility] HermannCHEM ADOAQ9950-34-03 12:15:0010[facility] HermannCHEM FUCHC6734-14-03 12:15:0064[facility] HermannCHEM QZDHS5592-20-08 12:15:000.3[facility] HermannCHEM GGSOR1204-65-84 12:15:55416Vkjpwaue HermannCHEM VBOZW1355-11-97 12:15:0082[facility] HermannCHEM ZERTV0462-54-02 12:15:0026 [facility]annCHEM CKSQX1530-84-52 12:15:008.4[facility] HermannCHEM PANEL 2014-07-31 12:15:003.5[facility] HermannCHEM AAARL2636-24-46 12:15:77119Cpzheepw HermannCHEM MOKLX2423-73-13 12:15:000.8[facility] HermannCHEM RIJBX0902-75-97 12:15:47595Warjxozc HermannCHEM MFAGQ8356-31-01 12:15:0017[facility] HermannCHEM GQAMC8382-79-66 12:15:003.2[facility] QqxilveHHTFFQXPWR9897-47-39 12:15:51851 [facility] LkazwgwVNHQOBVAHP1103-02-17 12:15:007.3[facility] HermannHEMATOLOGY 2014-07-31 12:15:007.9[facility] FaroepsQDBETMNVBX5404-41-01 12:15:0025.9[facility] HbudmsgSFEYSTUGHM8556-08-67 12:15:0030.7[facility] DhtybduVSTJPOXTLT5647-78-09 12:15:0077.1[facility] NsuufjbZXLXSDUZYF9723-95-22 12:15:00 Test Item Value Reference Range Interpretation Comments MCH (test code = MCH) 23.7 pg 27.0-31.0 [facility] SrtwcuaUDNQOJSYOP0799-09-53 12:15:003.36[facility] HermannHEMATOLOGY 2014-07-31 12:15:007.2[facility] VeuzsttIPIMCFSDYP4821-49-50 12:15:0019.7[facility] DcqoqjhGQRIBEAJGW8390-99-44 12:15:001+ *ABN*(07/31/14 7:15 AM)[facility] WHQVXEWLDX9238-98-61 12:15:001.0[facility] XaniqitZDHVPZGLXC5301-98-08 12:15:000.1 [facility] WywbreyOUEVTPDTAP1683-49-93 12:15:000.1[facility] HermannHEMATOLOGY 2014-07-31 12:15:002.7[facility] SchsbouOXTEFNCLZI6758-59-67 12:15:001.6[facility] TmhdfqsUGBJXWRBKX6712-74-11 12:15:003.2[facility] BmkgszaSDEJPCPOLC1980-72-68 12:15:0037.7[facility] KtnimzzKZOFYVSVRX6503-35-41 12:15:001.7[facility] RIYIXSLSFU0473-35-71 12:15:0014.4[facility] FnwqkeoKXHWQQBTZJ4325-41-70 12:15:00 44.6[facility] HermannTHYROID KMWWT8660-97-55 12:15:000.691[facility] HermannCARDIAC HEMVEVL2786-63-54 08:15:000.03[facility] HermannCARDIAC PIDJZRU4859-79-37 08:15:00 76[facility] HermannCARDIAC EBKAVEX1994-80-40 08:15:000.5[facility] HermannCARDIAC CXRQUZI5400-59-71 08:15:000.7[facility] HermannCHEM XEQBC6413-48-55 08:15:0074 [facility] HermannCHEM UTWNQ0672-00-30 08:15:93264Ozpmzaca HermannCHEM PANEL 2014-07-18 08:15:0017[facility] HermannCHEM UEJHJ7693-77-06 08:15:004.1[facility] HermannCHEM YGHSU4594-36-04 08:15:72841Dvfbuech HermannCHEM UVYEB5412-10-39 08:15:96234Bbjftwuw HermannCHEM NUVSK7064-04-83 08:15:001.2[facility] HermannCHEM EJOWS7981-77-82 08:15:009.1[facility] HermannCHEM XMNCK2232-50-25 08:15:0030 [facility] HermannCHEM LKYBD1329-96-09 08:15:0010.1[facility] HermannHEMATOLOGY 2014-07-18 08:15:0075.7[facility] XpevlafNGDGRWKIMG4789-01-81 08:15:003.84[facility] QapghzhXNRBBVEEYE3087-28-62 08:15:007.9[facility] AdcavnrFDVTMLMEJM8837-44-43 08:15:0029.1[facility] AwubwvhJQAPZHQBCS5388-78-04 08:15:009.4[facility] NKSZTVAEYS4238-38-09 08:15:00 Test Item Value Reference Range Interpretation Comments MCH (test code = MCH) 24.3 pg 27.0-31.0 [facility] CnizudnZICDJOKHAA4952-57-31 08:15:0019.4[facility] HermannHEMATOLOGY 2014-07-18 08:15:0032.1[facility] EubhcdnAUPVLZNQUE9210-26-39 08:15:03554Sjpnnwao KqfcpffBFKELADVPT7139-34-40 08:15:007.3[facility] IjreektFDOGVCRTQT3437-82-16 08:15:001.2[facility] OrkndceUEBSQVDMTC3137-96-86 08:15:000.0[facility] IQHVXOHEBB2233-53-46 08:15:004.1[facility] IdwbdrcNMLYQNAVMG6738-02-39 08:15:000.0 [facility] CknutzrGIZIGFBTHP6453-82-30 08:15:001.1[facility] HermannHEMATOLOGY 2014-07-18 08:15:002.6[facility] MtxmqgrQBAVLCREWA3316-83-83 08:15:000.1[facility] JsbklyyTKOBKKPGBK6749-93-24 08:15:0032.1[facility] OxnmmeqQYXQJLWKQP4159-67-47 08:15:0051.6[facility] GrysisqGSTYHPEFZQ2213-53-26 08:15:0015.2[facility] ZUHQUKIDJI7493-27-14 08:15:00Negative (10/8/14 3:15 AM)[facility] HermannCARDIAC QDGTKLH2445-52-93 01:27:000.03[facility] HermannCARDIAC MPIRFMI3847-21-82 01:27:00 79[facility] HermannCARDIAC RJOMVRN1996-81-94 01:27:00<0.6[facility] CARDIAC NJESGHU8584-86-67 01:27:00<0.5[facility] HermannCARDIAC ENZYMES 2014-07-17 19:39:0083[facility] HermannCARDIAC ARNXNHT2160-79-34 19:39:000.02 [facility]annCARDIAC BKMVPGD2662-63-63 19:39:00<0.5[facility] HermannCARDIAC VLISNXB1747-69-82 19:39:00<0.6[facility] HermannCHEM MRPQD2702-31-02 19:39:0082 [facility] HermannCHEM NULEV4840-72-75 19:39:001.0[facility] HermannCHEM PANEL 2014-07-17 19:39:0014[facility] HermannCHEM IPRTD1362-87-24 19:39:14040Rnfmhjng HermannCHEM FCSBJ2848-51-88 19:39:008.9[facility] HermannCHEM DZNUS2303-81-23 19:39:0018[facility] HermannCHEM MXQWP2555-12-58 19:39:004.4[facility] HermannCHEM MBYEI7452-73-17 19:39:0015[facility] HermannCHEM JJWGO0237-41-34 19:39:004.5 [facility] HermannCHEM GMBVU0877-66-64 19:39:001.0[facility] HermannCHEM PANEL 2014-07-17 19:39:0011.6[facility] HermannCHEM IRAXM8136-56-80 19:39:0016[facility] HermannCHEM CJYAL5616-69-51 19:39:0098[facility] HermannCHEM UUYSR4408-94-56 19:39:87310Aqmxcgly HermannCHEM VYUQM1154-86-22 19:39:009.8[facility] HermannCHEM VCJNE3381-03-88 19:39:0027[facility] HermannCHEM UNFEV1786-71-40 19:39:38071 [facility] HermannCHEM LIEYG4245-76-19 19:39:003.6[facility] HermannCHEM PANEL 2014-07-17 19:39:001.1[facility] CbmxffdIERXNGLNKN8355-50-01 19:39:007.5[facility] ChgedgaUSNLIFPQIU5967-07-95 19:39:13514Csbvytzw GasjfhmUKUZGRLBHB9060-79-52 19:39:0032.1[facility] KneqlniSPUTMZOXTN9374-64-39 19:39:0019.0[facility] KTIKQCQNWD7850-82-38 19:39:0076.1[facility] ZfhtvpyJXLYSWUZCI5567-19-33 19:39:00 33.4[facility] NdtklsiYZHWYIWSWT3069-16-38 19:39:0010.7[facility] HermannHEMATOLOGY 2014-07-17 19:39:004.39[facility] IwximhyMTHNZLQYCK1725-51-36 19:39:0010.4[facility] EgcuxtbKSNCGJYJAG1948-46-12 19:39:00 Test Item Value Reference Range Interpretation Comments MCH (test code = MCH) 24.4 pg 27.0-31.0 [facility] CjngfpzWAFVFJJAJB1268-40-20 19:39:000.0[facility] HermannHEMATOLOGY 2014-07-17 19:39:000.1[facility] OpmecugHNZNATPJLA1347-03-19 19:39:009.6[facility] HbzdbcxUALPXYENFI6763-78-65 19:39:000.2[facility] ZmkaousJJLBGYYHYP7349-84-52 19:39:000.0[facility] TphzdidLBVPISAILW9448-03-08 19:39:006.9[facility] JVCCBVGDQR8008-01-08 19:39:002.5[facility] QcuaobfWSEOCQSYVU1918-69-95 19:39:00 23.8[facility] SzbbcctRNQXHGHLOD3940-36-65 19:39:001.0[facility] HermannHEMATOLOGY 2014-07-17 19:39:0066.3[facility] EyxjyhnXEKVVISRPZ1237-32-78 19:39:00 Test Item Value Reference Range Interpretation Comments PTT (test code = PTT) 30.3 s 22.9-35.8 [facility] NgwemirAWWJWRPGDL8578-67-15 19:39:00 Test Item Value Reference Range Interpretation Comments PT (test code = PT) 12.4 s 12.0-14.7 [facility] HggjbqwBYCWKKVJYZ2180-09-48 19:39:000.93[facility] HermannTHYROID PANEL 2014-07-17 19:39:001.47[facility] HermannTHYROID DUFTA9746-50-67 19:39:000.090 [facility] HermannCARDIAC UETRPIK9785-65-11 16:58:0064[facility] HermannCARDIAC YYPPRYR3711-04-63 10:30:00<0.5[facility] HermannCARDIAC EJBSLPG1449-56-49 10:30:000.02[facility] HermannCHEM PNORE7151-62-69 10:30:001.1[facility] HermannCHEM TDDCO9418-93-05 10:30:63347Fdnskcwi HermannCHEM WTJTQ9107-58-15 10:30:003.2 [facility] HermannCHEM QFSLZ6257-27-76 10:30:68952Jrmixxix HermannCHEM PANEL 2014-05-21 10:30:0029[facility] HermannCHEM HKYCX6011-73-22 10:30:0092[facility] HermannCHEM DBMCH9018-78-20 10:30:0013[facility] HermannCHEM HKYPB7747-89-02 10:30:0082[facility] HermannCHEM VLDVP9761-73-89 10:30:008.9[facility] HermannCHEM CDATD1905-12-81 10:30:0011.2[facility] PrdrfesFAIMHBFRRP7652-52-75 10:30:0083.1 [facility] LfffqsxGNSJRMYZNH1576-86-26 10:30:12244Sqeparxe HermannHEMATOLOGY 2014-05-21 10:30:00 Test Item Value Reference Range Interpretation Comments MCH (test code = MCH) 26.7 pg 27.0-31.0 [facility] QqvolbjJOKBYHKOJU4963-13-06 10:30:0017.1[facility] HermannHEMATOLOGY 2014-05-21 10:30:0032.1[facility] EywdiivLPADGBDOEV7924-87-12 10:30:007.4[facility] KfxnpulKNVAWUNDFO8782-54-51 10:30:0028.1[facility] QrlceptYPFCHRLZBE8154-09-95 10:30:009.0[facility] RlfltaeBOKGWDYSMB0695-64-73 10:30:003.38[facility] SWTEDNDKLF6315-50-59 10:30:005.6[facility] GesfrozVCPNBRNQTP1131-45-22 10:30:000.1 [facility] DnieugpUNOIHYHDOE1436-39-85 10:30:002.6[facility] HermannHEMATOLOGY 2014-05-21 10:30:000.6[facility] StrregpMFFJADTEKQ9802-02-96 10:30:002.0[facility] YrrpizjKRKIZKKEDP3153-48-60 10:30:0010.0[facility] JbvoxcsUSVVMYSAYF5547-32-62 10:30:002.4[facility] BpgujfrWZELAXXFNM5999-45-35 10:30:000.6[facility] FZSZJBJJZG4121-72-56 10:30:0045.6[facility] UxhmeegTZGZYAPPGT2453-11-77 10:30:00 41.8[facility] HermannCARDIAC HVVFFWN5238-62-06 03:15:00<0.5[facility] CARDIAC INPVWON5863-27-04 03:15:000.02[facility] HermannTHYROID DWCNN5278-31-44 11:05:140.423[facility] HermannCARDIAC SHTALCJ5282-35-67 11:05:00<0.5[facility] HermannCARDIAC JAHWPLB1598-38-69 11:05:0054[facility] HermannCARDIAC ENZYMES 2014-03-28 11:05:000.02[facility] HermannCHEM LJXIQ2076-41-90 11:05:001.8[facility] KnqhcjuPQVGPBSOVJIA3063-45-64 11:05:0012.9[facility] EpgatjjBABJJTPLGWZK9723-03-07 11:05:0074[facility] FgsmtcxDPDKCDHEKACV6754-09-35 11:05:0094[facility] RWJWIJIGTUCC3114-94-14 11:05:009.0[facility] QkyrjdqQJAMEMVLUGML4368-81-02 11:05:0026[facility] OnethpbOYNYNBPAMQEV8582-79-91 11:05:80536Yktsqoie [place] TQPJMAGYBSJT4302-65-01 11:05:001.2[facility] RtbiumiQXYUIAXTXSNU3568-62-64 11:05:003.9[facility] WlzdlcwFBJNUENOQLWR2928-20-69 11:05:21374Bhbohysn [place] XQLPAFFAAZJL8688-87-29 11:05:0023[facility] DnsskivHXRPIZTJUZ2425-73-05 11:05:00 233[facility] RwjkpmwNHXIHYUQHY3297-23-87 11:05:007.9[facility] HermannHEMATOLOGY 2014-03-28 11:05:0016.3[facility] CnqjlzpSLDKKZLBPJ2044-69-66 11:05:0031.2[facility] ZbfoynwHFRJSMSMXK8571-54-42 11:05:0085.1[facility] CaivvjsVHZLUAZLRU3804-33-02 11:05:0010.4[facility] DknuntuYQXYBYOFVQ8620-60-27 11:05:003.67[facility] KRZRXADVGO2245-68-59 11:05:00 Test Item Value Reference Range Interpretation Comments MCH (test code = MCH) 28.4 pg 27.0-31.0 [facility] HfbcmiwVTMZIMIDWH6975-47-58 11:05:0033.4[facility] HermannHEMATOLOGY 2014-03-28 11:05:008.8[facility] LyvmovnISNAWYXERU2684-22-12 11:05:000.0[facility] OysdvmhIXPGKYGNLH5056-72-11 11:05:00Normal (03/28/14 6:05 AM)[facility] MSBMLTVIYD6701-54-49 11:05:00Normal (03/28/14 6:05 AM)[facility]annHEMATOLOGY 2014-03-28 11:05:005.0[facility] ZakpgldNEZOFXCZRS9942-34-03 11:05:000.5[facility] IaoiyldIIYWBZGCAT5166-13-94 11:05:0032.5[facility] JhawxnwPUSZRSFJLA9152-21-98 11:05:0057.0[facility] NpzfufvCRXNKCPJFG4331-17-27 11:05:009.0[facility] VZMEYEFWNJ1737-23-03 11:05:001.0[facility] PhvmwdoZEFIFFIYTU0611-57-55 11:05:002.9 [facility] KgujxjcGSWZXCMKYS1304-52-46 11:05:000.8[facility] HermannHEMATOLOGY 2014-03-28 11:05:000.1[facility] WyjxrxjOQNESI9307-89-57 11:05:0036[facility] MhtuyedBHRBND1092-47-80 11:05:78504Ofjsrcud BclkirdGDXXBG8836-35-57 11:05:03086 [facility] VbdsacaYMNXLA6243-16-45 11:05:0077[facility] JvxwnkqHRLJTV8380-17-16 11:05:77490Olretusb ZjnoqbnGQAQHI4970-33-91 11:05:003.16[facility] CTXOKLDMX1434-84-33 08:30:0092[facility] AjayecgXCMDUDMWG1058-40-05 08:30:008.8 [facility] JfsrdscCXFLCYZSU7015-56-02 08:30:0084[facility] HermannCHEMISTRY 2013-08-04 08:30:006[facility] ExyldisZZSGDODWQ4058-98-31 08:30:001.0[facility] IsgbmgwHNDOOLOCY8457-43-76 08:30:0028[facility] FnsqyipYZLPFMFQR3426-71-89 08:30:69776Immzfvlm IhswywoWPNPNDFWQ4395-78-23 08:30:94098Vskqebau [place] NGKDELLRV9771-94-79 08:30:003.5[facility] GooqhpbWHVYIXCTL4811-90-76 08:30:009.5 [facility] GzxsvjrXLGZMVGRYJ3759-08-16 08:30:000.7[facility] HermannHEMATOLOGY 2013-08-04 08:30:000.0[facility] QessybuBNTAJALYYA6991-87-15 08:30:000.2[facility] OejwiceIBNIXWBVAX3959-46-05 08:30:002.7[facility] PxlmndfQSJAGEFGSR5809-46-16 08:30:000.2[facility] YvohgmyCIWKYOHOQG7610-45-03 08:30:003.5[facility] UMSLKNXLGZ3396-93-38 08:30:0013.2[facility] XxkpmosCOKOYWOINN2480-30-50 08:30:00 1.8[facility] DlksuxmDGOXGHKYAB5826-85-39 08:30:0033.4[facility] HermannHEMATOLOGY 2013-08-04 08:30:0049.7[facility] AjsaczbTZNSTUHRHX8632-60-51 08:30:0032.2[facility] AahvkqiCZLSGXYRSP3083-08-49 08:30:02921Smfpkzdh WkbljrgKPSIIUCWSW0283-20-18 08:30:0016.4[facility] HojrvguECTDKPSUVZ8952-57-65 08:30:007.3[facility] NVEUPDFEWG0337-20-80 08:30:0086.4[facility] IvbrpzzMALLKVXIFI0516-87-94 08:30:00 26.2[facility] RmbortoYMYQBVLZVL6655-08-49 08:30:00 Test Item Value Reference Range Interpretation Comments MCH (test code = MCH) 27.8 pg 27.0-31.0 N [facility] IvadaklZJOEPOAZOQ2362-00-66 08:30:008.4[facility] HermannHEMATOLOGY 2013-08-04 08:30:003.03[facility] ZmhiwiwLEMGSEDZIV3960-59-87 08:30:005.5[facility] QtlxifyQAIYUZQFY8080-15-90 09:50:001.52[facility] QhweibwAMRCMDYFD1593-32-82 09:50:002.1[facility] DshanppZRNDZTDNJ9252-95-03 09:50:69306Ffettzjq [place] RAVDILVNH3284-28-97 09:50:01318Kuttrvpz PoffydaJYMVSDHKK5069-83-36 09:50:003.3 [facility] HocjofkBHTDYWSDW6902-43-81 09:50:76667Vhyowoat HermannCHEMISTRY 2013-08-03 09:50:0087[facility] YxmcyuxRSBGMLVGY6272-90-11 09:50:006[facility] PmvgsgtNUTYUILBH6167-52-51 09:50:000.9[facility] OofwtikOBRMWCEQP7154-21-14 09:50:008.6[facility] SfwzuxfSVKATBPVT9053-88-36 09:50:007.3[facility] EJKPDWOHK5385-31-32 09:50:0030[facility] LxvwnksUNLKUWDYQ8987-92-41 09:50:000.218 [facility] ZgirkrhZCBBWNAAH1977-86-98 09:50:0091[facility] HermannCHEMISTRY 2013-08-03 09:50:27524Tpslchsa UiirpksJKLGDAHAZ9258-92-10 09:50:0039[facility] IibtgjhOOSQQGEDS1898-16-99 09:50:003.77[facility] MijbejyZGNQYMAPV4071-87-30 09:50:0084[facility] WzzxtwtUVWMLTCZSW1531-52-61 09:50:000.2[facility] CUFYLKZNAX9477-27-79 09:50:000.0[facility] QextaaeRNDPRYACRL9566-91-94 09:50:00 27.7[facility] UgsivocAQZMSKPQWO4781-26-08 09:50:002.8[facility] HermannHEMATOLOGY 2013-08-03 09:50:0011.6[facility] CrlntvmOEXXWLRCVD6684-38-45 09:50:000.3[facility] YnajvmeNPVPHLBVDC3850-14-78 09:50:004.0[facility] WerkhdlBIMZFABUHK0618-24-29 09:50:0057.6[facility] PiolqwmWWAHQJGVWK0346-67-06 09:50:000.8[facility] XYSGQGWGOH8041-32-96 09:50:001.9[facility] UotbvybNGAZBVIQIY6418-57-51 09:50:007.3 [facility] JtfpcxoPZUDHBUCUJ8438-25-66 09:50:0086.2[facility] HermannHEMATOLOGY 2013-08-03 09:50:00 Test Item Value Reference Range Interpretation Comments MCH (test code = MCH) 27.6 pg 27.0-31.0 N [facility] CbipgkuTACGEYQFJT7173-40-02 09:50:0016.6[facility] HermannHEMATOLOGY 2013-08-03 09:50:0032.0[facility] FfibltnXFENKUYRAA0012-76-31 09:50:00205Oyityywf JpvngmrWZIOEDSJDD1905-86-07 09:50:006.9[facility] ErnnaddSNVKAZOEMM5382-01-40 09:50:008.3[facility] JlfzdqcQLYKXUFUPP9791-87-61 09:50:003.01[facility] SSDZWXIADK1651-72-35 09:50:0026.0[facility] DstviddGVGBRPPAB9061-71-99 10:30:16366 [facility] CjjnujzXXKFUCBHV4263-14-73 10:30:0029[facility] HermannCHEMISTRY 2013-08-02 10:30:006[facility] ZaieomvKAURJYLOR5641-05-82 10:30:000.9[facility] AszlwjjWWRCSLNCI6767-97-18 10:30:008.7[facility] QgsxxxzSFZXTDOGJ5915-91-12 10:30:0077[facility] RfvgsrnVZCNWZNMO7835-43-44 10:30:17401Tqvbxtdo [place] PFUJASNWJ5654-92-81 10:30:06470Lfzbqftn LjomwubCFUDYEWCX0251-74-27 10:30:002.9 [facility] RstrhzeHACVSKHUV4488-42-88 10:30:001.7[facility]annHEMATOLOGY 2013-08-02 10:30:88765Inyrsxgz ZyprpupYRKOTBBMMM5069-06-09 10:30:0016.8[facility] VgqlnbzZZKMKWZRRN9617-52-52 10:30:007.2[facility] QnzboqoCHOKYKBDGI1631-65-48 10:30:0032.3[facility] QbuvdkxFIJMDJYWVN8235-73-33 10:30:00 Test Item Value Reference Range Interpretation Comments MCH (test code = MCH) 28.0 pg 27.0-31.0 N [facility] JjifbtiIJPTNXKIQA2238-96-82 10:30:0086.7[facility]annHEMATOLOGY 2013-08-02 10:30:0026.1[facility] ZsypvvxBGRBDPZATX0362-97-27 10:30:008.4[facility] JthfdheYOPAYCYBKR5406-69-57 10:30:003.02[facility] EeasahpLBBDSSQCSC1338-91-07 10:30:008.7[facility] YbtwlliJOGHBOYTZW7863-60-96 10:30:000.0[facility] REGWXBLJEJ2156-20-14 10:30:000.2[facility] LpsblkwEHJFIHEYML1774-81-57 10:30:001.0 [facility] CmiwduaMUGJPCJFVB6532-31-19 10:30:002.0[facility]annHEMATOLOGY 2013-08-02 10:30:005.5[facility] BndokfzNNWALCESQA7246-66-17 10:30:000.4[facility] ZaxtaklNPAVTKELQQ1941-20-44 10:30:002.2[facility] ObtdtdmEZGOWZSIDT0740-44-68 10:30:0011.9[facility] UrfeixbXFFSYCTGWV9121-74-47 10:30:0022.7[facility] Puneet POYMBQTACA4579-45-26 10:30:0062.8[facility] RytixtdWKMTCFVQU2998-21-42 09:53:00 Positive (08/02/2013 04:53:00)[facility] XvuqsvwFAJYFHARD6876-52-62 09:53:00Right Ra (08/02/2013 04:53:00)[facility] LysdqufISECVSWHR7172-92-38 09:53:0024.0[facility] VolqdacPTVDAIZSY4993-91-40 09:53:002.0[facility] OrmbktbDTAJWQFAP9909-81-92 09:53:00NC (08/02/2013 04:53:00)[facility] UvvjvqrCCTIXMODO4584-31-58 09:53:0047 [facility] CrywnwoLSGSDVDWV6857-23-02 09:53:0097[facility] HermannCHEMISTRY 2013-08-02 09:53:0030[facility] MvtiadrNZSGTRHCA3784-38-98 09:53:004[facility] ZgfwrnhEHFQYSSKM2293-70-45 09:53:0037.0[facility] PddhficZLWNODPBF7614-61-90 09:53:0097.6[facility] ZhqwzjxEHWFYVFGF7059-35-57 09:53:007.41[facility] P[facility]et ZVQKBNQVK5073-34-22 09:32:0041[facility] CutcooiLRBKPULQJ1694-02-96 09:32:0025 [facility] OmxfwexJXIJQYICU7037-15-10 09:32:04835Zjxicgtb HermannCHEMISTRY 2013-08-01 09:32:000[facility] WsopdteULKYVRUGB6587-18-00 09:32:00Right Ra (08/01/2013 04:32:00)[facility] OyqhvskVRIFNVAZS7699-55-42 09:32:0040.0[facility] TezdipvQGSVSINRY1634-16-75 09:32:0099.4[facility] CdqkugoYDLESVRXL4570-02-66 09:32:00Positive (08/01/2013 04:32:00)[facility] WvmljiwUCKLYXTDF5663-45-70 09:32:0037.0[facility] FispsawFUUNIDPNR6840-85-51 09:32:05309Qldorstf [place] PPHBPUDTP2256-36-02 09:32:0010[facility] PfkhvzoVEPJAIKLU2231-16-89 09:32:00A/C (08/01/2013 04:32:00)[facility] TszbdixQHBVZLEDR2343-34-50 09:32:005.0[facility] XhfebsjFRAVXSJXL0522-53-11 09:32:007.39[facility] KmiywvvBHTJQARVG4537-34-92 10:00:0075[facility] IycojazJERGOWOOD5324-09-44 10:00:0011[facility] [place] IQEAESOTD7083-16-05 10:00:001.3[facility] WgzuiijCJKSXADBI3800-72-70 10:00:003.0 [facility] MebhmbiXGBJUJDRL7453-88-39 10:00:003.9[facility] HermannCHEMISTRY 2013-07-31 10:00:006.9[facility] XgjmrvmBDOPXCWCF3983-33-64 10:00:0025[facility] AsovmgxGGFXVZVRQ2578-49-45 10:00:0017[facility] QpgmvtqJDSDVOQQF1557-74-24 10:00:001.5[facility] EheowoqGDTZZFUNY6575-06-82 10:00:0015.1[facility] AHDPCBCBM5905-48-48 10:00:001.2[facility] UqcclosYYPEQMSDL6032-42-65 08:51:005.0 [facility] XsjeczdQNIUUKXEP2743-29-36 08:51:13443Hnuradpo HermannCHEMISTRY 2013-07-31 08:51:0040.0[facility] UndjuidXBXNKOTLL7397-66-22 08:51:0012[facility] CzgtfaiGEQTMXVQK3017-80-76 08:51:00A/C (07/31/2013 03:51:00)[facility] DQFBSSXJE6410-52-36 08:51:00Positive (07/31/2013 03:51:00)[facility] FQNBKRMHI3999-81-12 08:51:00Right Ra (07/31/2013 03:51:00)[facility] MKRGSIWZE9405-48-69 08:51:0023[facility] NgdrvxgSJLMVUOZP4825-97-02 08:51:003 [facility] NjzccifVEFXVTDJD8454-33-21 08:51:01554Fqzotdhu HermannCHEMISTRY 2013-07-31 08:51:007.60[facility] WuoxcscEUPVSVKQQ4641-38-53 08:51:0023[facility] ForgjajYFWRQEGCB6375-00-83 08:51:0099.8[facility] UkpsgatMHSUHJWKQ0284-99-32 08:51:0037.0[facility] HermannBACTERIAL - DALNPNDH6545-05-31 03:14:00Negative 1(07/30/2013 22:14:00)[facility] GigdbyjZSUQYWGDK3510-53-80 22:55:00<1.7 [facility] HyftzqsTTQHQZEVJ4120-89-59 22:18:005.0[facility] HermannCHEMISTRY 2013-07-30 22:18:98696Rxxascrd QseydkySSLTNXXQS7549-95-22 22:18:0012[facility] PjrlfuiHRAEOSRGP9418-94-70 21:30:002.0[facility] HermannBODY IJPRGC4363-64-66 18:25:0046[facility]annBODY QDUYHG8085-04-46 18:25:0074[facility]annBODY ARQSRW5063-67-75 18:25:00 Test Item Value Reference Range Interpretation Comments Tube Num CSF (test code = Tube Num CSF) 1 1 [facility]annBODY BMPHAD5274-83-24 18:25:00Colorless (07/30/2013 13:25:00) [facility]annB[facility] IJWWSB9149-39-35 18:25:039769Yzcobsrn HermannBODY FLUIDS 2013-07-30 18:25:001[facility]annBODY QEZMTU6133-53-56 18:25:00Slight *ABN*(07/30/2013 13:25:00)[facility]annB[facility] UMAKOC4267-26-66 18:25:00Light Red *ABN*(07/30/2013 13:25:00)[facility]ann[facility] AYELAJ6651-28-56 18:25:00Red *ABN*(07/30/2013 13:25:00)[facility] URABLX8461-36-23 18:25:109663 [facility] BJHZQM5491-10-64 18:25:0011[facility]annBODY FLUIDS 2013-07-30 18:25:00Colorless (07/30/2013 13:25:00)[facility]annB[facility] FLUIDS 2013-07-30 18:25:00Moderate *ABN*(07/30/2013 13:25:00)[facility] ULJAXW6899-41-35 18:25:00 Test Item Value Reference Range Interpretation Comments Tube Num CSF (test code = Tube Num CSF) 4 1 [facility]ann[facility] NFZEJE3901-45-01 18:25:0061[facility]annB[facility] FLUIDS 2013-07-30 18:25:0035[facility]annBODY WKZYUG4110-14-05 18:25:004[facility] SfnxpgtAZIYMJOLLM1093-05-85 18:25:00Negative (07/30/2013 13:25:00)[facility] ThxedtxSVSNLHKJNJ3494-90-72 18:25:00Negative (07/30/2013 13:25:00)[facility] DjzzdqcCOPNENZWAA1456-55-15 18:25:00Negative (07/30/2013 13:25:00)[facility] XbhloxtWAZIGSLEUW3852-40-77 18:25:00Negative 19(07/30/2013 13:25:00)[facility] CdpagzyVGEPHQVGUD4027-14-05 18:25:00Negative (07/30/2013 13:25:00)[facility] PjoagqpBWDFDOHWUU9617-65-95 18:25:00Negative (07/30/2013 13:25:00)[facility] OxechjrXMSUPJKKVW5987-29-83 15:30:060.99[facility] QoluhifSEMQXGYYHN3584-30-07 15:30:06 Test Item Value Reference Range Interpretation Comments PROTIME (test code = PROTIME) 13.0 s 12.0-14.7 N [facility] GuzdwsrFSARIWDLBP0104-47-39 15:30:06 Test Item Value Reference Range Interpretation Comments aPTT (test code = aPTT) 24.9 s 22.9-35.8 N [facility] UnwszqfZKMOGXKPQ4078-76-23 15:20:00Positive *ABN*(07/30/2013 10:20:00) [facility] PyuptumWXWDPPGLJ4014-40-14 15:20:00See Note 9(07/30/2013 10:20:00) [facility] ThhuvhtLILPOUZVI2617-84-55 15:20:00Positive *ABN*(07/30/2013 10:20:00) [facility] EniktqyBKZKXGYRB8959-20-05 15:20:00Negative *NA*(07/30/2013 10:20:00) [facility] AjfkasjVGGXHTTNT3218-92-63 15:20:00Negative *NA*(07/30/2013 10:20:00) [facility] LyfpjfuVISGVFRGC4771-84-79 15:20:00Negative *NA*(07/30/2013 10:20:00) [facility] CxlhenoZJTDQFEOE6514-98-15 15:20:00Negative *NA*(07/30/2013 10:20:00) [facility] AnayhajOEFBHVQYY7909-93-42 15:20:00Negative *NA*(07/30/2013 10:20:00) [facility] DilqwayMBXBSJLULY4209-54-92 15:20:003[facility] HermannURINALYSIS 2013-07-30 15:20:001[facility] TbzuyacYZNWOHRCQA3295-99-34 15:20:00Negative (07/30/2013 10:20:00)[facility] QqwbsenSXIXXTTHYH3235-56-98 15:20:00Negative (07/30/2013 10:20:00)[facility] DfjkatnVHPZEOQOJW9494-99-77 15:20:00Negative *NA*(07/30/2013 10:20:00)[facility] ZzhctefUDZBWZLNVM5533-98-04 15:20:00Negative (07/30/2013 10:20:00)[facility] RrpucfcTKHTHWKHUV0718-11-58 15:20:001.032[facility] YpzgwawIWZTHGTHUM7197-52-48 15:20:006.0[facility] IhloodyDLVTBSNPIT6534-75-80 15:20:00Slight *ABN*(07/30/2013 10:20:00)[facility] KvcejzmVFELHPXERF5043-41-20 15:20:00Yellow *NA*(07/30/2013 10:20:00)[facility] KmdwcdhOGHLLLNDP0788-15-75 14:41:23847Inpdtfri AolsyxnYHRRHVNFL6581-01-85 14:41:001.9[facility] UBYGDPHLO9553-60-80 14:41:0014[facility] OtmvqreAEMXVUBEH3352-93-62 14:41:000.7 [facility] RifunqeIKQONPEAR9631-05-19 14:41:0078[facility] HermannCHEMISTRY 2013-07-30 14:41:0014[facility] KlsvxyyTHPNIKCXQ3414-60-85 14:41:004.7[facility] YnmkprlNPYRICWCL3595-58-49 14:41:009.2[facility] DuakocaTETIERPGQ1228-76-44 14:41:004.5[facility] OkdyjjzSBHRPDRAO6523-58-88 14:41:0028[facility] YVTDGPIDR2631-73-26 14:41:001.0[facility] YhzvgkqVPNJQOLMM2795-85-83 14:41:00 <0.02[facility] SodhkbhASZXNBGUF9988-70-73 14:41:75389Yvqtujvu HermannCHEMISTRY 2013-07-30 14:41:00<1.7[facility] UkxmuykRMFJRDYBB3922-06-59 14:41:00<0.4 [facility] TzqpgjtLHCAOQPHI9966-23-72 14:41:00<0.5[facility] HermannCHEMISTRY 2011-12-30 08:55:0067[facility] DrooalsRMXYETPQA5127-02-93 08:55:79403Tycljgiv EgtbwalHNGAPUUPJ2673-92-34 08:55:01031Pdohlxmg IirshrgQEFLYGJNF7951-89-94 08:55:0055[facility] UgpxjdbPPKGIANMB5772-46-14 08:55:002.71[facility] WNUSPYYQQ9351-42-62 08:55:0015.6[facility] KrkltwlFBXECYDSH9073-19-95 08:55:0094 [facility] FvofjncDTXDDEQPR1355-37-51 08:55:008.8[facility] HermannCHEMISTRY 2011-12-30 08:55:89297Fryarkwn LzckikeAGWJGMVUN6583-02-51 08:55:003.6[facility] EmsnooaFCOIBNDJC9970-14-94 08:55:0026[facility] YmazuzhLCDGDVZMT5254-28-17 08:55:009[facility] KghingyUTWBJSSLN6240-52-08 08:55:000.8[facility] IOSMRRIBY3309-10-60 08:55:04955Tsmpcfgq ZwoqqyxXXANMLWAJW3624-48-11 08:55:007.6 [facility] HwvfjnyFOOSDYFYGD8161-85-05 08:55:64424Fkkrqubb HermannHEMATOLOGY 2011-12-30 08:55:0014.2[facility] YpzzqhhJBKEOBISRD1119-42-12 08:55:007.9[facility] XkwfddsYLNTOBZXPI5250-52-47 08:55:003.51[facility] FviushlYTPUPQTXMW0832-76-71 08:55:0033.7[facility] GgpitikUJSCBOLCAA0764-27-72 08:55:0092.5[facility] ADQNGJHPHG1796-15-22 08:55:0032.4[facility] IetpuesWLKLRAFWSR2791-39-14 08:55:00 Test Item Value Reference Range Interpretation Comments MCH (test code = MCH) 31.2 pg 27.0-31.0 H [facility] VdfxcrjYZBZTKCAXC8398-01-06 08:55:0010.9[facility] HermannHEMATOLOGY 2011-12-30 08:55:0015.2[facility] RvtglmpVXCKCURDPB5150-98-01 08:55:000.5[facility] KavgvodKYBTTDZBRT6006-33-18 08:55:000.4[facility] NrkdgpxIRVQDEYBGS8376-67-68 08:55:002.7[facility] DypqzkgIWVOPQZTFH0767-72-40 08:55:0049.1[facility] VZFLKTAXHU9665-82-13 08:55:0034.8[facility] DmvwkztHITBBNACXJ7728-18-01 08:55:00 0.0[facility] JesyorlIOVEIIHOSV2908-85-58 08:55:003.9[facility] HermannHEMATOLOGY 2011-12-30 08:55:001.2[facility] IopdoyyVCHJRIXIZH0923-74-38 08:55:000.0[facility] DajoercTPLBUYVWP4427-35-93 05:58:00<0.5[facility] EdcfbbyDJUTPOZHC0002-28-46 05:58:00<0.5[facility] VqyipycNEKFZWJRG0728-86-14 05:58:00<0.02[facility] UdukcckHAENLCBTM9708-02-75 05:58:0093[facility] PbjuqdeCEHVQNXRR5613-87-69 23:50:000.056[facility] HdiiddkPYILPOJKJ8908-42-55 23:50:000.6[facility] PTQWKYETN1009-97-06 23:50:003.0[facility] LyamwmeEAVRQVXJH7012-21-13 23:50:001.5 [facility] SurmqlkTATKFIBNQ3764-58-69 23:50:007.5[facility] HermannCHEMISTRY 2011-12-29 23:50:004.5[facility] WpdicvjVDLAQFJWE6807-44-82 23:50:0015[facility] ZbhsjbtPFZRZHAUH8830-16-57 23:50:0051[facility] JplezhoEYFEPAHXS9171-70-94 23:50:000.2[facility] BmqfjjbTIQLOCBUZ4149-74-78 23:50:000.8[facility] HRPVMUVNL1927-55-54 23:50:0011[facility] DpfelseQMMBCOPSA2485-76-34 23:50:002.0 [facility] KakorteUTFDYGOZF2082-82-49 23:50:004.2[facility] HermannCHEMISTRY 2011-12-29 23:50:00<0.5[facility] IvjopwlPGDNTQJEL2392-25-28 23:50:00<0.5 [facility] AmjxhggTPRSPWTWA3646-18-46 23:50:00<0.02[facility] HermannCHEMISTRY 2011-12-29 23:50:0099[facility] YncsyoeEFGMRWHKV3253-89-52 23:50:005.5[facility] PkwzbfzRVJPFQYFK9821-19-80 20:28:00See Note 5(12/29/2011 15:28:00)[facility] EhvmyjjDICKDUFDV9236-88-31 20:28:00Negative *NA*(12/29/2011 15:28:00)[facility] GbhqezyLSRLAEWRH1269-08-50 20:28:00Positive *ABN*(12/29/2011 15:28:00)[facility] FuncdrnLHRVIIRVQ1779-34-98 20:28:00Negative *NA*(12/29/2011 15:28:00)[facility] EyavcrtOGAENFXBV8888-60-67 20:28:00Negative *NA*(12/29/2011 15:28:00)[facility] AlymqomCLZCEZWRC9168-72-85 20:28:00Negative *NA*(12/29/2011 15:28:00)[facility] TrxevpxKNUAKMGMU9523-53-50 20:28:00Negative *NA*(12/29/2011 15:28:00)[facility] NojbgcqFMZJVNPEM2259-25-91 20:28:00Negative *NA*(12/29/2011 15:28:00)[facility] MdpkvwvVEHUFOSBN8097-40-26 17:40:00<0.5[facility] TcwlcjeFFQYAOJEU8997-84-56 17:40:002.1[facility] BbtwbsyDADACLSRL6125-61-08 17:40:0012[facility] IXBSKQCLG8686-18-09 17:40:31007Cebhahdb RagctgbWPIFIDLPW6968-58-15 17:40:0025 [facility] TjgjjsoGVGFGHMCR2821-03-81 17:40:009.7[facility] HermannCHEMISTRY 2011-12-29 17:40:63109Jpcrzwjy UnviejuBBRXQWHAJ0348-36-87 17:40:0014.8[facility] XqqaspmDDXIXSHMY4943-17-20 17:40:000.9[facility] VivfklxBGPYETFGU6514-38-47 17:40:05750Gicmmqgx FjvrmlqCORIVAPLP6501-31-18 17:40:003.8[facility] KOSBAUEJA7658-00-94 17:40:0018[facility] OqlrznpGXCCFXKDU2335-85-32 17:40:00 <0.02[facility] AlvdzdpKILFZHJQD8909-42-48 17:40:00<0.5[facility] MQOLDZRWL4375-68-03 17:40:0091[facility] XxlnnqhLWUJHSKSXR4816-42-93 17:40:000.0 [facility] LkvttgpSBRMTBJFOX6603-58-02 17:40:000.0[facility] HermannHEMATOLOGY 2011-12-29 17:40:000.5[facility] IicuffrCXWXZFLBVL9862-81-94 17:40:001.5[facility] MoyswemHUHRQCFGED2613-99-13 17:40:000.2[facility] DbnpudmECIABRAZAU1934-40-80 17:40:000.0[facility] VywqfhgDUZYEYBCNF5478-35-30 17:40:0018.8[facility] LKMOFUWWOI6932-03-00 17:40:006.1[facility] YeobfhzUHJXFZBLNP4839-12-87 17:40:006.7 [facility] QewhmajALXBZXTZDQ4997-61-51 17:40:0074.3[facility] HermannHEMATOLOGY 2011-12-29 17:40:0034.4[facility] QltbtkfUECXZYFJTL0317-89-16 17:40:0014.1[facility] NwvoxtuDXOUCQGBLC8846-05-34 17:40:00 Test Item Value Reference Range Interpretation Comments MCH (test code = MCH) 31.4 pg 27.0-31.0 H [facility] AeipujrUXTVRKULLE1244-15-15 17:40:0091.3[facility] HermannHEMATOLOGY 2011-12-29 17:40:007.5[facility] YgjtytyQVIJLGDURS7051-72-03 17:40:62320Cbtirolt OkjqslqUPAPITGQWS1316-85-32 17:40:0036.6[facility] WktlvyiFYVROJWOGA4380-00-28 17:40:0012.6[facility] PqdueoqUVJZVTVMMR6437-17-78 17:40:004.01[facility] WYROFFLFGK9729-10-76 17:40:008.2[facility]
--- NOTE | 2021-02-12 23:13 | ER ---
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 HX of heart attack x ca1 2, heart stents x 2. HX of factor 5 deficiency and PEs. Reports nausea with chest pain. Took Nitro SL x 3 at 1945, no relief. Coronavirus screen: Client denies travel out of the [place] in the last 14 days. At this time, the client does not indicate any symptoms associated with coronavirus-19. Ebola Screen: Patient negative for fever greater than or equal to 101.5 degrees Fahrenheit, and additional compatible Ebola Virus Disease symptoms Patient denies exposure to infectious person. Patient denies travel to an Ebola-affected area in the 21 days before illness onset. No symptoms or risks identified at this time. Initial Sepsis Screen: Does the patient meet any 2 criteria? No. Patient's initial sepsis screen is negative. Does the patient have a suspected source of infection? No. Patient's initial sepsis screen is negative. Risk Assessment: Do you want to hurt yourself or someone else? Patient reports no desire to harm self or others. Onset of symptoms was February 12, 2021. 21:35 Method Of Arrival: Ambulatory ca1 21:35 Acuity: RADHA 2 ca1 Historical: - Allergies: 21:39 ambien; ca1 21:39 Morphine; ca1 21:39 Toradol; ca1 - Home Meds: 21:39 Plavix 75 mg Oral tab 1 tab once daily [Active]; Arixtra [Active]; ca1 - PMHx: 21:39 FACTOR V; Hyperlipidemia; Hypertension; Myocardial infarction; ca1 - PSHx: 21:39 Heart stents; back surgery; Cholecystectomy; port a cath; ca1 - Immunization history:: Client reports receiving the 2nd dose of the Covid vaccine, Client reports receiving the 1st dose of the Covid vaccine, Flu vaccine is up to date. - Social history:: Smoking status: Patient denies any tobacco usage or history of. Vital Signs: 21:35 BP 154 / 105; Pulse 117; Resp 20; Temp 98.6(TE); Pulse Ox 97% on R/A; Weight 90.72 kg ca1 (R); Height 5 ft. 7 in. (170.18 cm) (R); Pain 910; 21:35 Body Mass Index 31.32 (90.72 kg, 170.18 cm) ca1 ED Course: 21:08 Patient arrived in ED. bp1 21:38 Triage completed. ca1 21:39 Arm band placed on right wrist. ca1 Administered Medications: No medications were administered Outcome: 23:12 Patient left the ED. rr5 Signatures: Ariel Parsons, RN RN rr5 Claire Luu RN RN ca1 Kalyn Dodson bp1
[2021-02-12 23:22] VITALS: BP 154/105; TEMP 98.6; O2SAT 97
== END 2021-02-12 23:12 | disposition left against medical advice (07) ==
LOC: ER 21:08
DX: Z02.9 Encounter for administrative examinations, unspecified (principal)
CPT/HCPCS: 93005; 99281

== ENCOUNTER 2024-03-24 13:16 | Emergency (ER) | payer SELFPAY ==
--- NOTE | 2024-03-24 14:23 | RAD REPORT ---
EXAM DESCRIPTION: RAD - Chest Single View - 03/24/2024 2:03 pm CLINICAL HISTORY: CHEST PAIN Chest pain. COMPARISON: Chest Single View dated 11/14/2018; Chest Single View dated 10/20/2018; Chest Single View d ated 09/18/2018; Chest Single View dated 09/03/2018 FINDINGS: Portable technique limits examination quality. The lungs are grossly clear. The heart is normal in size. No displaced fractures.Right-sided port cat heter its tip in the SVC. IMPRESSION: No acute intrathoracic process suspected.
[2024-03-24] MEDS ORDERED: HYDROMORPHONE HCL 1 MG/ML INJ ONE (14:26)
[2024-03-24] MEDS ORDERED: ONDANSETRON 4 MG/2 ML VIAL ONE (14:26)
[2024-03-24 14:30] LABS: Absolute Eosinophils 0.1 K/uL (0-0.5); Absolute Monocytes 0.6 K/uL (0.1-1.3); Absolute Neutrophil 3.1 K/uL (1.8-8.0); Basophils % 0.6 % (0-1.3); Eosinophils % 2.5 % (0-4.4); Hematocrit 32.8 % (39.6-49.0); Hemoglobin 10.7 g/dL (13.6-17.9); Lymphocytes % 34.3 % (15.3-44.8); MCH 30.1 pg (27.0-35.0); MCHC 32.7 g/dL (32.0-36.0); MCV 92.1 fL (80-100); MPV 7.4 fL (7.6-11.3); Monocytes % 9.7 % (3.3-12.3); Neutrophils % 52.9 % (41.7-73.7); Platelets 303 thou/uL (152-406); RBC Red Blood Cell Count 3.56 M/uL (4.33-5.43); Red Cell Distribution Width 13.8 % (12.1-15.2)
[2024-03-24 14:51] LABS: Anion Gap 9.1 mEq/L (5.0-15.0); Magnesium 1.8 mg/dL (1.6-2.4); Potassium 3.1 mEq/L (3.5-5.1); Troponin High Sensitivity 6.8 pg/mL (<58.9)
--- NOTE | 2024-03-24 15:17 | RAD REPORT ---
EXAM DESCRIPTION: CT - Chest For Pe Angio - 03/24/2024 3:09 pm CLINICAL HISTORY: Chest pain. CHEST PAIN COMPARISON: Chest For Pe Angio dated 11/14/2018 TECHNIQUE: CT angiogram of the pulmonary arteries was performed with MIP. All CT scans are performed using dose optimization technique as appropriate and may include automated exposure control or mA/KV adjustment according to patient size. FINDINGS: No evidence of pulmonary thromboembolism. No acute aortic finding demonstrated. The lungs are clear. No significant pericardial or pleural fluid. No concerning bony finding. IMPRESSION: No evidence of pulmonary thromboembolism. No acute lung findings.
--- NOTE | 2024-03-24 17:00 | EDPHYS ---
Physician Documentation [facility] Name: Christiano Serra Age: 54 yrs Sex: Male : 1970 Arrival Date: 03/24/2024 Time: 13:16 Bed 17 Private MD: ED Physician Derian Vo HPI: 03/24 13:27 This 54 yrs old Male presents to ER via Unassigned with complaints of Chest Pain. kb 13:27 Pt is a 54 year old male who presents for right sided chest pain that is worse with kb deep breath. Reports shortness of breath on exertion only. States he has had similar pain in the past when he has had PEs. Pt takes lovenox 80mg BID, states he has failed oral anticoagulants in the past. Prototyper is Dr Ayala in [place], recent clean heart cath 3 weeks ago. 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 Historical: - Allergies: 13:27 ambien; ll1 13:27 Morphine; ll1 13:27 Toradol; ll1 - PMHx: 13:27 Hyperlipidemia; FACTOR V; Hypertension; Myocardial infarction; ll1 - Immunization history:: Adult Immunizations up to date. - Infectious Disease History:: Denies. - Social history:: Smoking status: Patient denies any tobacco usage or history of. ROS: 13:30 Constitutional: As per HPI kb Exam: 13:30 Constitutional: This is a well developed, well nourished patient who is awake, alert, kb and in no acute distress. Head/Face: Normocephalic, atraumatic. ENT: Moist Mucous membranes Cardiovascular: Regular rate Respiratory: Respirations even and unlabored. No increased work of breathing. Talking in full sentences Abdomen/GI: Soft, non-tender. No distention Skin: Warm, dry with normal turgor. Normal color. MS/ Extremity: Pulses equal, no cyanosis. Neurovascular intact. Full, normal range of motion. Neuro: Awake and alert, GCS 15, oriented to person, place, time, and situation. Moves all extremities. Normal gait. 13:31 ECG was reviewed by the Attending Physician. kb Vital Signs: 13:27 BP 130 / 95; Pulse 117; Resp 18; Temp 97.4; Pulse Ox 100% on R/A; Pain 8/10; ll1 14:15 BP 140 / 103; Pulse 98; Resp 17; Pulse Ox 100% on R/A; me1 15:00 BP 170 / 72; Pulse 58; Resp 16; Pulse Ox 99% on R/A; me1 15:09 Pain 4/10; me1 16:00 BP 153 / 74; Pulse 60; Resp 17; Pulse Ox 96% on R/A; me1 13:27 Pain Scale: Adult ll1 15:09 Pain Scale: Adult me1 MDM: 13:23 Patient medically screened. kb 13:30 Differential diagnosis: acute NM, abnormal ekg, PE. Data reviewed: vital signs, nurses kb notes. 17:11 Consideration of Admission/Observation Escalation of care including kb admission/observation considered. admission considered but serial troponin normal, pt had a recent heart catheter that showed nothing acute. Pt states he is ready to go home. . 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 17:12 Care significantly affected by the following chronic conditions: Hypertension, NM, kb Factor V. 03/24 13:27 Order name: Basic Metabolic Panel; Complete Time: 15:01 kb 03/24 13:27 Order name: CBC with Diff; Complete Time: 15:07 kb 03/24 13:27 Order name: Magnesium; Complete Time: 15:01 kb 03/24 13:27 Order name: NT PRO-BNP; Complete Time: 15:01 kb 03/24 13:27 Order name: Troponin HS; Complete Time: 15:01 kb 03/24 16:15 Order name: Troponin High Sensitivity; Complete Time: 16:59 kb 03/24 13:27 Order name: XRAY Chest (1 view); Complete Time: 14:29 kb 03/24 13:27 Order name: CT Chest For PE Angio; Complete Time: 15:20 kb 03/24 13:27 Order name: Cardiac monitoring; Complete Time: 13:46 kb 03/24 13:27 Order name: EKG - Nurse/Tech; Complete Time: 13:46 kb 03/24 13:27 Order name: IV Saline Lock; Complete Time: 14:23 kb 03/24 13:27 Order name: Labs collected and sent; Complete Time: 14:23 kb 03/24 13:27 Order name: O2 Per Protocol; Complete Time: 14: kb 03/24 13:27 Order name: O2 Sat Monitoring; Complete Time: 14:23 kb EC:31 Rate is 117 beats/min. Rhythm is regular. QRS [place] is Normal. [place] interval is normal at kb 184 msec. QRS interval is normal at 86 msec. QT interval is normal at 451 msec. Administered Medications: 14:30 Drug: HYDROmorphone IVP 1 mg IVP once Route: IVP; Site: Port-a-cath; me1 15:09 Follow up: Pain 4/10 Adult; Response: No adverse reaction; Pain is decreased me1 14:31 Drug: Ondansetron IVP 4 mg IVP once; over 2 minutes Route: IVP; Site: Port-a-cath; me1 15:09 Follow up: Response: No adverse reaction; Nausea is decreased me1 Disposition Summary: 03/24/24 16:59 Discharge Ordered Notes: Location: Home kb Condition: Stable kb Diagnosis - Chest pain, unspecified kb Followup: kb - With: Emergency Department - When: As needed - Reason: Worsening of condition Followup: kb - With: Private Physician - When: 2 - 3 days - Reason: Recheck today's complaints, Continuance of care, Re-evaluation by your physician Discharge Instructions: - Discharge Summary Sheet kb - Nonspecific Chest Pain, Adult, Bayt-jz-Bhuu kb Forms: - Medication Reconciliation Form kb - Antibiotic Education kb - Prescription Opioid Use kb - Patient Portal Instructions kb - Leadership Thank You Letter kb Signatures: Dispatcher [employer] [facility] Cindy Sloan, PUBLIC HEALTH TEACHER-C PUBLIC HEALTH TEACHER-Ckb Shakir Veloz, RN RN ll1 Magda Diaz RN RN me1 Corrections: (The following items were deleted from the chart) 13:28 13:28 Chest For PE Angio+CT.RAD.BRZ ordered. [facility] 13:30 13:27 Pt is a 54 year old male who presents for right sided chest pain that is worse kb with deep breath. Reports shortness of breath on exertion only. States he has had similar pain in the past when he has had PEs. Pt takes lovenox 80mg BID, states he has failed oral anticoagulants in the past. Prototyper is Dr Ayala in [place], recent clean heart cath 3 weeks ago. . kb
--- NOTE | 2024-03-24 17:00 | ER ---
Nurse's Notes [facility] Name: Christiano Serra Age: 54 yrs Sex: Male : 1970 Arrival Date: 03/24/2024 Time: 13:16 Bed 17 Private MD: Diagnosis: Chest pain, unspecified Presentation: 03/24 13:27 Chief complaint: Patient states: CP for 3 hours, some SOB. Coronavirus screen: Client ll1 denies travel out of the [place] in the last 14 days. At this time, the client does not indicate any symptoms associated with coronavirus-19. Ebola Screen: Patient denies travel to an Ebola-affected area in the 21 days before illness onset. Initial Sepsis Screen: Does the patient meet any 2 criteria? No. Patient's initial sepsis screen is negative. Does the patient have a suspected source of infection? No. Patient's initial sepsis screen is negative. Risk Assessment: Do you want to hurt yourself or someone else?. Onset of symptoms was March 24, 2024. 13:27 Method Of Arrival: Ambulatory 1 13:27 Acuity: RADHA 2 ll1 Triage Assessment: 13:28 General: Appears uncomfortable, Behavior is calm, cooperative, appropriate for age. ll1 Pain: Complains of pain in chest Pain currently is 8 out of 10 on a pain scale. Cardiovascular: Reports chest pain, shortness of breath. Historical: - Allergies: 13:27 ambien; ll1 13:27 Morphine; ll1 13:27 Toradol; ll1 - PMHx: 13:27 Hyperlipidemia; FACTOR V; Hypertension; Myocardial infarction; ll1 - Immunization history:: Adult Immunizations up to date. - Infectious Disease History:: Denies. - Social history:: Smoking status: Patient denies any tobacco usage or history of. Screenin:[facility] ED Fall Risk Assessment (Adult) History of falling in the last 3 months, me1 including since admission No falls in past 3 months (0 pts) Confusion or Disorientation No (0 pts) Intoxicated or Sedated No (0 pts) Impaired Gait No (0 pts) Mobility Assist Device Used No (0 pt) Altered Elimination No (0 pt) Score/Fall Risk Level 0 - 2 = Low Risk Maintained a safe environment, Provided non-skid footwear, Hourly rounding (assess needs \T\ fall precautionary measures) done. Abuse screen: Denies threats or abuse. Nutritional screening: No deficits noted. Tuberculosis screening: No symptoms or risk factors identified. Assessment: 13:59 Reassessment: gait steady to x-ray. ll1 14:33 General: Appears uncomfortable, well groomed, well developed, well nourished, Behavior me1 is calm, cooperative, appropriate for age, Reports right sided cp that is sharp and radiates to back, started about 3 hours ago. Pain: Complains of pain in chest Pain radiates to back Pain currently is 8 out of 10 on a pain scale. Quality of pain is described as sharp, Pain began 3 hours ago. Is continuous. Neuro: Level of Consciousness is awake, alert, obeys commands, Oriented to person, place, time, situation, Appropriate for age. Cardiovascular: Patient's skin is warm and dry. Cardiovascular: Reports chest pain, shortness of breath. Respiratory: Reports shortness of breath on exertion Airway is patent Trachea midline Respiratory effort is even, unlabored, Respiratory pattern is regular, symmetrical. GI: No signs and/or symptoms were reported involving the gastrointestinal system. : No signs and/or symptoms were reported regarding the genitourinary system. EENT: No signs and/or symptoms were reported regarding the EENT system. Derm: Skin is intact, is healthy with good turgor, Skin is pink, warm \T\ dry. Musculoskeletal: No signs and/or symptoms reported regarding the musculoskeletal system. Vital Signs: 13:27 BP 130 / 95; Pulse 117; Resp 18; Temp 97.4; Pulse Ox 100% on R/A; Pain 8/10; ll1 14:15 BP 140 / 103; Pulse 98; Resp 17; Pulse Ox 100% on R/A; me1 15:00 BP 170 / 72; Pulse 58; Resp 16; Pulse Ox 99% on R/A; me1 15:09 Pain 4/10; me1 16:00 BP 153 / 74; Pulse 60; Resp 17; Pulse Ox 96% on R/A; me1 13:27 Pain Scale: Adult ll1 15:09 Pain Scale: Adult me1 ED Course: 13:18 Patient arrived in ED. rg4 13:23 Cindy Sloan FNP-C is [facility]. kb 13:23 Derian Vo MD is Attending Physician. kb 13:27 Arm band placed on. ll1 13:28 Triage completed. ll1 14:05 XRAY Chest (1 view) In Process Unspecified. EDMS 14:09 Magda Diaz, RN is Primary Nurse. me1 14:23 Accessed Port-a-Cath. using accessed w/ #19 Rich needle, ,sterile technique, per [facility] protocol. Clean \T\ dry. Dressing intact. Good blood return. Flushes easily. 14:23 Initial lab(s) drawn, by me, sent to lab. bp 14:33 Patient has correct armband on for positive identification. Bed in low position. Call me1 light in reach. Side rails up X2. Provided Education on: POC. Verbalized understanding. . Client placed on continuous cardiac and pulse oximetry monitoring. NIBP monitoring applied. pvc monitor on. Pulse ox on. NIBP on. 14:33 No provider procedures requiring assistance completed. O2 via room air. me1 15:11 CT Chest For PE Angio In Process Unspecified. EDMS 16:32 Troponin High Sensitivity Sent. me1 17:09 IV discontinued, intact, bleeding controlled, No redness/swelling at site. Pressure me1 dressing applied. Administered Medications: 14:30 Drug: HYDROmorphone IVP 1 mg IVP once Route: IVP; Site: Port-a-cath; me1 15:09 Follow up: Pain 4/10 Adult; Response: No adverse reaction; Pain is decreased me1 14:31 Drug: Ondansetron IVP 4 mg IVP once; over 2 minutes Route: IVP; Site: Port-a-cath; me1 15:09 Follow up: Response: No adverse reaction; Nausea is decreased me1 Medication: 14:33 VIS not applicable for this client. me1 Outcome: 16:59 Discharge ordered by . kb 17:09 Discharged to home ambulatory, me1 17:09 Condition: stable 17:09 Discharge instructions given to patient, Instructed on discharge instructions, follow up and referral plans. Demonstrated understanding of instructions, follow-up care, 17:09 Patient left the ED. me1 Signatures: Dispatcher [employer] [facility] Cindy Sloan, FRANKLYN MOORE-Radha Howard rg4 Surjit Sears RN RN Shakir Veloz RN RN 1 Magda Diaz, RN RN me1
[2024-03-24] MEDS ORDERED: HEPARIN 500 UNIT/5 ML SYR IV ONE (17:03)
[2024-03-24 17:21] VITALS: BP 153/74; TEMP 97.4; O2SAT 96
--- NOTE | 2024-03-27 15:03 | EKG ---
Test Date: 2024-03-24 Test Time: 13:23:36 Mobile Nurse: LML MEASUREMENT RESULTS: Intervals: Rate: 117 PA: 184 QRSD: 86 QT: 324 QTc: 451 [place]: P: 57 PA: 184 QRS: 32 T: 46 INTERPRETIVE STATEMENTS: Sinus tachycardia Otherwise normal ECG Compared to ECG 02/12/2021 21:40:28 No significant changes Electronically Signed On 03-27-24 14:54:16 CDT by Guy Almaguer
== END 2024-03-24 17:09 | disposition home or self-care (01) ==
LOC: ER 13:16
DX: R07.9 Chest pain, unspecified (principal)
CPT/HCPCS: 36415; 71045; 71275; 80048; 83735; 83880; 84484; 85025; 93005; 96374; 96375; 99285; J1170; J1642; J2405; Q9967

== ENCOUNTER 2024-03-26 20:26 | Emergency (ER) | payer SELFPAY ==
[2024-03-26] MEDS ORDERED: NA CHLORIDE 0.9% 1,000 ML ONE (20:47)
[2024-03-26] MEDS ORDERED: ASPIRIN 81 MG CHEWABLE TABLET ONE (20:47)
[2024-03-26] MEDS ORDERED: NA CHLORIDE 0.9% 500 ML ONE (20:47)
[2024-03-26] MEDS ORDERED: ONDANSETRON 4 MG/2 ML VIAL ONE (21:07)
[2024-03-26] MEDS ORDERED: HYDROMORPHONE HCL 1 MG/ML INJ ONE ×2 (21:08→22:19)
[2024-03-26 21:19] LABS: Absolute Eosinophils 0.2 K/uL (0-0.5); Absolute Lymphocytes (CBC) 3.4 K/uL (0.7-4.9); Absolute Monocytes 0.8 K/uL (0.1-1.3); Absolute Neutrophil 3.5 K/uL (1.8-8.0); Basophils % 0.5 % (0-1.3); Eosinophils % 2.9 % (0-4.4); Hematocrit 32.8 % (39.6-49.0); Hemoglobin 11.3 g/dL (13.6-17.9); Lymphocytes % 42.4 % (15.3-44.8); MCH 31.2 pg (27.0-35.0); MCHC 34.4 g/dL (32.0-36.0); MCV 90.6 fL (80-100); MPV 7.3 fL (7.6-11.3); Monocytes % 10.2 % (3.3-12.3); Nucleated Red Blood Cells % 0.2 % (0-0); Platelets 335 thou/uL (152-406); RBC Red Blood Cell Count 3.62 M/uL (4.33-5.43); Red Cell Distribution Width 13.9 % (12.1-15.2)
[2024-03-26] MEDS ORDERED: LABETALOL 20 MG/4ML SYRINGE IV ONE ×2 (21:22→23:08)
[2024-03-26 21:43] LABS: PT Prothrombin Time 10.5 SECONDS (9.5-12.5); Protime INR 0.95
[2024-03-26 22:15] LABS: Albumin 3.8 g/dL (3.4-5.0); Albumin/Globulin Ratio 0.9 (1.1-1.8); Alkaline Phosphatase 76 U/L (45-117); Anion Gap 11.3 mEq/L (5.0-15.0); BUN Blood Urea Nitrogen 16 mg/dL (7-18); Bicarbonate 24 mEq/L (21-32); Bilirubin Total 0.3 mg/dL (0.2-1.0); Globulin 4.1 g/dL (2.3-3.5); Glomerular Filtration Rate 92 ml/min (=/>90); Glucose Level 169 mg/dL (74-106); Lipase 73 U/L (13-75); Magnesium 2.4 mg/dL (1.6-2.4); NT PRO-BNP 16 pg/mL (<125); Potassium 3.3 mEq/L (3.5-5.1); Protein, Total 7.9 g/dL (6.4-8.2); Sodium Level 139 mEq/L (136-145); Troponin High Sensitivity 4.9 pg/mL (<58.9)
[2024-03-26 22:18] LABS: ALT/SGPT < 14 U/L (16-61); AST/SGOT < 10 U/L (15-37); Bilirubin Direct < 0.2 mg/dL (0-0.2); Bilirubin Indirect, Calculated 0.1 mg/dL (0.2-0.8)
--- NOTE | 2024-03-26 22:29 | RAD REPORT ---
EXAM DESCRIPTION: RAD - Chest Single View - 03/26/2024 10:22 pm CLINICAL HISTORY: CHEST PAIN Chest pain. COMPARISON: Chest Single View dated 03/24/2024; Chest Single View dated 11/14/2018; Chest Single View d ated 10/20/2018; Chest Single View dated 09/18/2018 FINDINGS: Portable technique limits examination quality. The lungs are grossly clear. The heart is normal in size. No displaced fractures.Right port catheter tip in the SVC. IMPRESSION: No acute intrathoracic process suspected.
--- NOTE | 2024-03-26 22:42 | EDPHYS ---
Physician Documentation [facility] Name: Christiano Serra Age: 54 yrs Sex: Male : 1970 Arrival Date: 03/26/2024 Time: 20:26 Bed 16 Private MD: ED Physician Derian Vo HPI: 03/26 21:14 This 54 yrs old Male presents to ER via Wheelchair with complaints of Chest Pain. lauryn 21:14 The patient or guardian reports chest pain that is located primarily in the substernal lauryn area, epigastric area. Historical: - Allergies: 20:36 ambien; bm8 20:36 Morphine; bm8 20:36 Toradol; bm8 - Home Meds: 20:36 Lovenox 80 mg/0.8 mL subcutaneous Syringe 2 times per day [Active]; Percocet Oral bm8 [Active]; - PMHx: 20:36 FACTOR V; Hyperlipidemia; Hypertension; Myocardial infarction; pericarditis (Myocardial bm8 infarction); PE (Myocardial infarction); - PSHx: 20:36 back (Myocardial infarction); cardiac stents (Myocardial infarction); right chest port bm8 placement (Myocardial infarction); - Immunization history:: Adult Immunizations up to date. - Infectious Disease History:: Denies. - Social history:: Smoking status: Patient denies any tobacco usage or history of. Patient/guardian denies using alcohol, street drugs. ROS: 21:20 Constitutional: Negative for fever, chills, and weight loss, Eyes: Negative for injury, lauryn pain, redness, and discharge, ENT: Negative for injury, pain, and discharge, Neck: Negative for injury, pain, and swelling, Respiratory: Negative for shortness of breath, cough, wheezing, and pleuritic chest pain, Abdomen/GI: Negative for abdominal pain, nausea, vomiting, diarrhea, and constipation, Back: Negative for injury and pain, : Negative for injury, bleeding, discharge, and swelling, MS/Extremity: Negative for injury and deformity, Skin: Negative for injury, rash, and discoloration, Neuro: Negative for headache, weakness, numbness, tingling, and seizure, Psych: Negative for depression, anxiety, suicide ideation, homicidal ideation, and hallucinations, Allergy/Immunology: Negative for hives, rash, and allergies, Endocrine: Negative for neck swelling, polydipsia, polyuria, polyphagia, and marked weight changes, 21:20 Cardiovascular: Positive for chest pain, Exam: 21:20 Constitutional: This is a well developed, well nourished patient who is awake, alert, luaryn and in no acute distress. Head/Face: Normocephalic, atraumatic. Eyes: Pupils equal round and reactive to light, extra-ocular motions intact. Lids and lashes normal. Conjunctiva and sclera are non-icteric and not injected. Cornea within normal limits. Periorbital areas with no swelling, redness, or edema. ENT: Nares patent. No nasal discharge, no septal abnormalities noted. Tympanic membranes are normal and external auditory canals are clear. Oropharynx with no redness, swelling, or masses, exudates, or evidence of obstruction, uvula midline. Mucous membranes moist. Neck: Trachea midline, no thyromegaly or masses palpated, and no cervical lymphadenopathy. Supple, full range of motion without nuchal rigidity, or vertebral point tenderness. No Meningismus. Chest/axilla: Normal chest wall appearance and motion. Nontender with no deformity. No lesions are appreciated. Respiratory: Lungs have equal breath sounds bilaterally, clear to auscultation and percussion. No rales, rhonchi or wheezes noted. No increased work of breathing, no retractions or nasal flaring. Abdomen/GI: Soft, non-tender, with normal bowel sounds. No distension or tympany. No guarding or rebound. No evidence of tenderness throughout. Back: No spinal tenderness. No costovertebral tenderness. Full range of motion. Male : Normal genitalia with no discharge or lesions. Skin: Warm, dry with normal turgor. Normal color with no rashes, no lesions, and no evidence of cellulitis. MS/ Extremity: Pulses equal, no cyanosis. Neurovascular intact. Full, normal range of motion. Neuro: Awake and alert, GCS 15, oriented to person, place, time, and situation. Cranial nerves II-XII grossly intact. Motor strength 5/5 in all extremities. Sensory grossly intact. Cerebellar exam normal. Normal gait. Psych: Awake, alert, with orientation to person, place and time. Behavior, mood, and affect are within normal limits. 21:20 Cardiovascular: Rate: tachycardic, actual rate is 118 bpm, Rhythm: regular, Pulses: Pulses are 4+ in bilateral radial, brachial, femoral, popliteal, posterior tibial and and dorsalis pedis arteries.. Heart sounds: normal, Edema: is not appreciated, JVD: is not appreciated, 21:20 ECG was reviewed by the Attending Physician. 119 Vital Signs: 20:35 BP 169 / 112; Pulse 118; Resp 17 S; Temp 97.6(TE); Pulse Ox 100% on R/A; Weight 77.11 bm8 kg (R); Height 5 ft. 7 in. (R); Pain 8/10; 21:30 BP 142 / 103; Pulse 95; Pulse Ox 97% on R/A; lc8 22:30 BP 144 / 103; Pulse 84; Resp 17; Pulse Ox 97% on R/A; lc8 23:15 BP 147 / 98; Pulse 83; Pulse Ox 97% on R/A; lc8 20:35 Body Mass Index 26.63 (77.11 kg, 170.18 cm) bm8 20:35 Pain Scale: Adult bm8 MDM: 20:32 Patient medically screened. lauryn 21:28 Differential diagnosis: abnormal EKG, acute myocardial infarction, acute pericarditis, lauryn anxiety, coronary artery disease costochondritis, gastritis, pancreatitis, peptic ulcer disease, pericarditis, pleurisy, pneumonia, pneumothorax, pulmonary embolus, stable angina, thoracic aortic disection, unstable angina. HEART Score: History: Moderately Suspicious (1), ECG: Non specific repolarization disturbance / LBTB / PM (1), Age: > 45 and < 65 years (1), Risk Factors: > or = 3 Risk factors for atherosclerotic disease (2), [Hypercholesterolemia] [Hypertension] [+ Family HX] Troponin: < or = 1 x Normal Limit (0). The patient was given aspirin in the Emergency Department. TANVI Risk Score: 1 - Three or more CAD risk factors, TOTAL SCORE = 1. Data reviewed: vital signs, nurses notes, lab test result(s), EKG, radiologic studies, CT scan, plain films. Consideration of Admission/Observation Patient was admitted/placed on observation. Escalation of care including admission/observation considered. I considered the following discharge prescriptions or medication management in the emergency department Medications were administered in the Emergency Department. See MAR. Independent interpretation of the following test(s) in the Emergency Department EKG: See my EKG interpretation above. Test considered but Not performed: Ultrasound NO 2 D ECHO. Historians other than the Patient: PT WELL INFORMED. Care significantly affected by the following chronic conditions: Hypertension, FACTOR 5, HYPERLIPID, NM, PERICARDITIS. Counseling: I had a detailed discussion with the patient and/or guardian regarding the historical points, exam findings, and any diagnostic results supporting the discharge/admit diagnosis, the presence of at least one elevated blood pressure reading (>120/80) during this emergency department visit, lab results, radiology results, the need for outpatient follow up, for definitive care, a charge entry specialist, an managed care analyst. 03/26 20:33 Order name: Basic Metabolic Panel; Complete Time: 22:20 lauryn 03/26 20:33 Order name: CBC with Diff; Complete Time: 21:56 03/26 20:33 Order name: LFT's; Complete Time: 22:20 03/26 20:33 Order name: Magnesium; Complete Time: 22:20 03/26 20:33 Order name: NT PRO-BNP; Complete Time: 22:20 03/26 20:33 Order name: PT-INR; Complete Time: 22:41 03/26 20:33 Order name: Troponin HS; Complete Time: 22:20 03/26 20:33 Order name: Lipase; Complete Time: 22:20 03/26 20:33 Order name: TSH; Complete Time: 22:20 03/26 21:28 Order name: Urinalysis w/ reflexes; Complete Time: 23:20 03/26 21:28 Order name: UDS; Complete Time: 23:20 03/26 20:33 Order name: XRAY Chest (1 view); Complete Time: 22:41 03/26 20:33 Order name: EKG; Complete Time: 20:34 03/26 20:33 Order name: Cardiac monitoring; Complete Time: 20:52 03/26 20:33 Order name: EKG - Nurse/Tech; Complete Time: 20:52 03/26 20:33 Order name: IV Saline Lock; Complete Time: 20:52 03/26 20:33 Order name: Labs collected and sent; Complete Time: 20:52 03/26 20:33 Order name: O2 Per Protocol; Complete Time: 20:52 03/26 20:33 Order name: O2 Sat Monitoring; Complete Time: 20:52 [facility] EC:20 Rate is 119 beats/min. Rhythm is regular. QRS [place] is Normal. [place] interval is normal. [facility] QRS interval is normal. QT interval is normal. No Q waves. T waves are Normal. No ST changes noted. Clinical impression: Sinus tachycardia and No evidence of ischemia. Interpreted by me. Reviewed by me. Administered Medications: 20:52 Drug: Aspirin PO Chewable Tablet 81 mg PO once Route: PO; bm8 21:00 Follow up: Response: No adverse reaction [facility] 20:52 Drug: NS 0.9% IV 1000 ml IV at 125 ml/hr continuous Route: IV; Rate: 125 ml/hr; Site: [facility] Port-a-cath; :52 Drug: NS 0.9% IV 500 ml IV at bolus once Route: IV; Rate: bolus; Site: Port-a-cath; [facility] 21:11 CANCELLED (Duplicate Order): ondansetron 4 mg IVP once; over 2 minutes [facility] 21:17 Drug: HYDROmorphone IVP 1 mg IVP once Route: IVP; Site: Port-a-cath; [facility] 21:30 Follow up: Response: No adverse reaction [facility] 21:17 Drug: Ondansetron IVP 4 mg IVP once; over 2 minutes Route: IVP; Site: Port-a-cath; 8 21:30 Follow up: Response: No adverse reaction [facility] 21:45 Drug: Labetalol IV 10 mg IV at per protocol once Route: IV; Rate: per protocol; Site: [facility] Port-a-cath; 22:00 Follow up: Response: No adverse reaction; IV Status: Completed infusion lc8 23:15 Drug: Labetalol IV 10 mg IV at per protocol once Route: IV; Rate: per protocol; Site: [facility] Port-a-cath; 23:30 Follow up: Response: No adverse reaction; IV Status: Completed infusion 8 23:15 Drug: Promethazine IVP 12.5 mg IVP once Route: IVP; Site: Port-a-cath; 8 23:20 Follow up: Response: No adverse reaction 8 23:15 Drug: Potassium PO Effervescent Tablet 25 mEq PO once; dissolve in 4 ounces of water or lc8 juice Route: PO; 23:40 Follow up: Response: No adverse reaction [facility] 23:31 Drug: HEParin Flush IVP 500 units IVP once; for Port-a-cath packing Route: IVP; Site: 8 Port-a-cath; 23:31 Follow up: Response: No adverse reaction [facility] 03/27 01:28 Not Given (pt states he took ptaa): Bystolic 10 mg PO once 8 01:32 Not Given (Patient Refused): hydromorphone1 mg IVP once 8 Disposition Summary: 03/26/24 22:42 Discharge Ordered Notes: Location: Home lauryn Problem: new lauryn Symptoms: have improved lauryn Condition: Stable lauryn Diagnosis - Essential (primary) hypertension lauryn - Tachycardia, unspecified lauryn - Chest pain, unspecified lauryn - Hypokalemia lauryn Followup: lauryn - With: Private Physician - When: 2 - 3 days - Reason: Recheck today's complaints, Continuance of care, Re-evaluation by your physician Followup: lauryn - With: Guy Almaguer MD - When: 2 - 3 days - Reason: Recheck today's complaints, Re-evaluation by your physician Discharge Instructions: - Discharge Summary Sheet lauryn - Nonspecific Chest Pain, Adult lauryn - Potassium Content of Foods lauryn - Hypertension, Adult lauryn - Nonspecific Chest Pain, Adult, [id number] lauryn - Hypertension, Adult, [id number] lauryn - How to Take Your Blood Pressure, [id number] lauryn - Aspirin and Your Heart lauryn - Hypokalemia lauryn - Managing Your Hypertension lauryn Forms: - Medication Reconciliation Form lauryn - Antibiotic Education lauryn - Prescription Opioid Use lauryn - Patient Portal Instructions [facility] - Leadership Thank You Letter [facility] Prescriptions: - Bystolic 10 mg Oral tablet - take 1 tablet ORAL route daily; 20 tablet; Refills: 0, Product Selection lauryn Permitted - Potassium Chloride 20 meq Oral Packet - take 1 packet ORAL route once daily 1 packet in 6 (six) ounces of water or lauryn juice; Take after meal; 10 packet; Refills: 0, Product Selection Permitted - Lisinopril 20 mg Oral Tablet - take 1 tablet ORAL route once daily; 20 tablet; Refills: 0, Product Selection lauryn Permitted Signatures: Dispatcher [employer] Derian Hernandez MD MD cha McDonald, Brad RN RN bm8 Paul Grady RN RN lc8 Corrections: (The following items were deleted from the chart) 03/26 20:34 20:33 BASIC METABOLIC PANEL+C.LAB.BRZ ordered. EDMS EDMS 20:34 20:33 CBC+H.LAB.BRZ ordered. EDMS EDMS 20:34 20:33 HEPATIC FUNCTION+C.LAB.BRZ ordered. EDMS EDMS 20:34 20:33 MAGNESIUM+C.LAB.BRZ ordered. EDMS EDMS 20:34 20:33 PROBNP+C.LAB.BRZ ordered. EDMS EDMS 20:34 20:33 PROTIME (+INR)+COAG.LAB.BRZ ordered. EDMS EDMS 20:34 20:33 Troponin High Sensitivity+C.LAB.BRZ ordered. EDMS EDMS 20:34 20:33 LIPASE+C.LAB.BRZ ordered. EDMS EDMS 20:47 20:47 Extrem Venous W Compression Shiv+US.RAD.BRZ ordered. EDMS EDMS 21:11 20:57 Ondansetron IVP 4 mg IVP once; over 2 minutes ordered. lauryn lauryn 21:29 21:29 Urinalysis+U.LAB.BRZ ordered. EDMS EDMS 21:29 21:29 URINE DRUG SCREEN+UC.LAB.BRZ ordered. EDMS EDMS 21:45 20:33 D-DIMER+COAG.LAB.BRZ ordered. EDMS EDMS
--- NOTE | 2024-03-26 22:42 | ER ---
Nurse's Notes [facility] Name: Christiano Serra Age: 54 yrs Sex: Male : 1970 Arrival Date: 03/26/2024 Time: 20:26 Bed 16 Private MD: Diagnosis: Essential (primary) hypertension;Tachycardia, unspecified;Chest pain, unspecified;Hypokalemia Presentation: 03/26 20:35 Chief complaint: Patient states: center CP radiating to back X3 hours. Coronavirus bm8 screen: Client denies travel out of the [place] in the last 14 days. At this time, the client does not indicate any symptoms associated with coronavirus-19. Ebola Screen: No symptoms or risks identified at this time. Initial Sepsis Screen: Does the patient meet any 2 criteria? No. Patient's initial sepsis screen is negative. Does the patient have a suspected source of infection? No. Patient's initial sepsis screen is negative. Risk Assessment: Do you want to hurt yourself or someone else? Patient reports no desire to harm self or others. Onset of symptoms was March 26, 2024. 20:35 Method Of Arrival: Wheelchair bm8 20:35 Acuity: RADHA 3 bm8 Triage Assessment: 20:36 General: Appears in no apparent distress. uncomfortable, Behavior is calm, cooperative. bm8 Pain: Complains of pain in chest Pain radiates to back. EENT: No deficits noted. No signs and/or symptoms were reported regarding the EENT system. Neuro: No deficits noted. [place] Agitation-Sedation Scale (RASS): 0 - Alert and Calm Level of Consciousness is awake, alert, obeys commands, Oriented to person, place, time, situation. Cardiovascular: Reports chest pain, Denies shortness of breath, Capillary refill < 3 seconds Clubbing of nail beds is absent JVD is absent Patient's skin is warm and dry. Respiratory: No deficits noted. Airway is patent Respiratory effort is even, unlabored, Respiratory pattern is regular, symmetrical, Breath sounds are clear bilaterally. GI: No deficits noted. No signs and/or symptoms were reported involving the gastrointestinal system. : No deficits noted. No signs and/or symptoms were reported regarding the genitourinary system. Derm: No deficits noted. No signs and/or symptoms reported regarding the dermatologic system. Skin is intact, is healthy with good turgor, Skin is dry, Skin is normal, Skin temperature is warm. Musculoskeletal: No deficits noted. No signs and/or symptoms reported regarding the musculoskeletal system. Circulation, motion, and sensation intact. Range of motion: intact in all extremities. Historical: - Allergies: 20:36 ambien; bm8 20:36 Morphine; bm8 20:36 Toradol; bm8 - Home Meds: 20:36 Lovenox 80 mg/0.8 mL subcutaneous Syringe 2 times per day [Active]; Percocet Oral bm8 [Active]; - PMHx: 20:36 FACTOR V; Hyperlipidemia; Hypertension; Myocardial infarction; pericarditis (Myocardial bm8 infarction); PE (Myocardial infarction); - PSHx: 20:36 back (Myocardial infarction); cardiac stents (Myocardial infarction); right chest port bm8 placement (Myocardial infarction); - Immunization history:: Adult Immunizations up to date. - Infectious Disease History:: Denies. - Social history:: Smoking status: Patient denies any tobacco usage or history of. Patient/guardian denies using alcohol, street drugs. Screenin:30 [facility] ED Fall Risk Assessment (Adult) History of falling in the last 3 months, lc8 including since admission No falls in past 3 months (0 pts) Confusion or Disorientation No (0 pts) Intoxicated or Sedated No (0 pts) Impaired Gait No (0 pts) Mobility Assist Device Used No (0 pt) Altered Elimination No (0 pt) Score/Fall Risk Level 0 - 2 = Low Risk Oriented to surroundings, Maintained a safe environment, Hourly rounding (assess needs \T\ fall precautionary measures) done. 21:30 Abuse screen: Denies threats or abuse. Denies injuries from another. Nutritional lc8 screening: No deficits noted. Tuberculosis screening: No symptoms or risk factors identified. Assessment: 20:35 General: Appears in no apparent distress. Behavior is calm, cooperative. lc8 20:35 Pain: Complains of pain in chest Pain does not radiate. Pain began 3 hours ago. lc8 20:35 Neuro: Level of Consciousness is awake, alert, obeys commands, Oriented to person, lc8 place, time, situation. Cardiovascular: Reports chest pain, Capillary refill < 3 seconds Patient's skin is warm and dry. Chest pain is located in epigastric area substernal area began 3 hours prior to arrival. Respiratory: Airway is patent Respiratory effort is even, unlabored, Respiratory pattern is regular, symmetrical. GI: No deficits noted. : No deficits noted. 22:14 Reassessment: Patient and/or family updated on plan of care and expected duration. Pain lc8 level reassessed. Patient states feeling better. Vital Signs: 20:35 BP 169 / 112; Pulse 118; Resp 17 S; Temp 97.6(TE); Pulse Ox 100% on R/A; Weight 77.11 bm8 kg (R); Height 5 ft. 7 in. (R); Pain 8/10; 21:30 BP 142 / 103; Pulse 95; Pulse Ox 97% on R/A; lc8 22:30 BP 144 / 103; Pulse 84; Resp 17; Pulse Ox 97% on R/A; lc8 23:15 BP 147 / 98; Pulse 83; Pulse Ox 97% on R/A; lc8 20:35 Body Mass Index 26.63 (77.11 kg, 170.18 cm) bm8 20:35 Pain Scale: Adult bm8 ED Course: 20:30 Patient arrived in ED. ra3 20:32 Derian Vo MD is Attending Physician. lauryn 20:36 Triage completed. bm8 20:36 Arm band placed on right wrist. bm8 20:52 Accessed Port-a-Cath. Blood collected. using accessed w/ # 20 Rich needle, 18G Nexia bm8 IV Catheter ,sterile technique, Clean \T\ dry. Dressing intact. Good blood return. Flushes easily. O2 via no O2 needed at this time. 21:01 Initial lab(s) drawn, by me, sent to lab. EKG done. lg3 21:03 Paul Grady, RN is Primary Nurse. lc8 21:30 Patient has correct armband on for positive identification. Placed in gown. Bed in low lc8 position. Call light in reach. Side rails up X2. Provided Education on: course of ed stay; medication. satellite project site monitor on. Pulse ox on. NIBP on. 21:30 No provider procedures requiring assistance completed. lc8 22:24 XRAY Chest (1 view) In Process Unspecified. EDMS 22:27 UDS Sent. lc8 22:27 Urinalysis w/ reflexes Sent. lc8 22:42 Raslan, Guy, MD is Referral Physician. lauryn 23:30 IV discontinued, intact, bleeding controlled, No redness/swelling at site. Pressure lc8 dressing applied. Administered Medications: 20:52 Drug: Aspirin PO Chewable Tablet 81 mg PO once Route: PO; bm8 21:00 Follow up: Response: No adverse reaction lc8 20:52 Drug: NS 0.9% IV 1000 ml IV at 125 ml/hr continuous Route: IV; Rate: 125 ml/hr; Site: [facility] Port-a-cath; 20:52 Drug: NS 0.9% IV 500 ml IV at bolus once Route: IV; Rate: bolus; Site: Port-a-cath; 8 21:11 CANCELLED (Duplicate Order): ondansetron 4 mg IVP once; over 2 minutes lauryn 21:17 Drug: HYDROmorphone IVP 1 mg IVP once Route: IVP; Site: Port-a-cath; 8 21:30 Follow up: Response: No adverse reaction [facility] 21:17 Drug: Ondansetron IVP 4 mg IVP once; over 2 minutes Route: IVP; Site: Port-a-cath; [facility] 21:30 Follow up: Response: No adverse reaction 8 21:45 Drug: Labetalol IV 10 mg IV at per protocol once Route: IV; Rate: per protocol; Site: [facility] Port-a-cath; 22:00 Follow up: Response: No adverse reaction; IV Status: Completed infusion 8 23:15 Drug: Labetalol IV 10 mg IV at per protocol once Route: IV; Rate: per protocol; Site: [facility] Port-a-cath; 23:30 Follow up: Response: No adverse reaction; IV Status: Completed infusion lc8 23:15 Drug: Promethazine IVP 12.5 mg IVP once Route: IVP; Site: Port-a-cath; 8 23:20 Follow up: Response: No adverse reaction 8 23:15 Drug: Potassium PO Effervescent Tablet 25 mEq PO once; dissolve in 4 ounces of water or lc8 juice Route: PO; 23:40 Follow up: Response: No adverse reaction 8 23:31 Drug: HEParin Flush IVP 500 units IVP once; for Port-a-cath packing Route: IVP; Site: [facility] Port-a-cath; 23:31 Follow up: Response: No adverse reaction 8 03/27 01:28 Not Given (pt states he took ptaa): Bystolic 10 mg PO once 8 01:32 Not Given (Patient Refused): hydromorphone1 mg IVP once 8 Medication: 03/26 23:30 VIS not applicable for this client. [facility] Outcome: 22:42 Discharge ordered by . lauryn 23:30 Discharged to home ambulatory, [facility] 23:30 Condition: stable [facility] 23:30 Discharge instructions given to patient, Instructed on discharge instructions, follow up and referral plans. Demonstrated understanding of instructions, follow-up care, medications, Prescriptions given X 3, 23:31 Patient left the ED. [facility] Signatures: Dispatcher [employer] EDMS Derian Vo MD MD cha Able, Lacie, RN RN lg3 Stephanie Keane Brad, RN RN bm8 Paul Grady RN RN lc8
[2024-03-26 22:47] LABS: Specific Gravity 1.007 (1.005-1.030); Urine Bilirubin NEGATIVE (Negative); Urine Blood Negative (Negative); Urine Clarity Clear (Clear); Urine Color Light-Yellow (Yellow); Urine Glucose NEGATIVE (Negative); Urine Ketones NEGATIVE (Negative); Urine Microscopic Reflex YN NO UMIC; Urine Nitrite NEGATIVE (Negative); Urine Protein NEGATIVE (Negative); Urine Urobilinogen Normal (Normal)
[2024-03-26] MEDS ORDERED: PROMETHAZINE INJ 25 MG/ML AMP ONE (23:01)
[2024-03-26] MEDS ORDERED: NA CHLORIDE 0.9% 50 ML ONE (23:02)
[2024-03-26 23:06] LABS: Barbiturates NEGATIVE (NEGATIVE); Benzodiazepines NEGATIVE (NEGATIVE); Cocaine NEGATIVE (NEGATIVE); METHAMPHETAM NEGATIVE (NEGATIVE); Methadone NEGATIVE (NEGATIVE); Opiates NEGATIVE (NEGATIVE); Phencyclidine NEGATIVE (NEGATIVE); THC Cannibis NEGATIVE (NEGATIVE)
[2024-03-26] MEDS ORDERED: POTASSIUM 25 MEQ EFFERV TAB ONE (23:08)
[2024-03-26] MEDS ORDERED: HEPARIN 500 UNIT/5 ML SYR IV ONE (23:24)
[2024-03-26 23:52] VITALS: BP 142/103; TEMP 97.6; O2SAT 97
--- NOTE | 2024-03-27 14:53 | EKG ---
Test Date: 2024-03-26 Test Time: 20:38:17 Polysomnographic Technician: VALERIY MEASUREMENT RESULTS: Intervals: Rate: 119 PA: 172 QRSD: 88 QT: 314 QTc: 441 [place]: P: 51 PA: 172 QRS: 30 T: 49 INTERPRETIVE STATEMENTS: Sinus tachycardia Otherwise normal ECG Compared to ECG 03/24/2024 13:23:36 No significant changes Electronically Signed On 03-27-24 14:50:53 CDT by Guy Almaguer
== END 2024-03-26 23:31 | disposition home or self-care (01) ==
LOC: ER 20:26
DX: I10 Essential (primary) hypertension (principal); R07.9 Chest pain, unspecified; R00.0 Tachycardia, unspecified; E87.6 Hypokalemia
CPT/HCPCS: 36415; 71045; 80048; 80076; 80307; 81003; 83690; 83735; 83880; 84443; 84484; 85025; 85610; 93005; 96374; 96375; 99285; J1170; J1642; J2405; J2550; J7030; J7040

== ENCOUNTER 2024-04-02 12:04 | Emergency (ER) | payer SELFPAY ==
[2024-04-02] MEDS ORDERED: FENTANYL CITR 100 MCG/2 ML ONE (12:40)
[2024-04-02 13:06] LABS: Absolute Eosinophils 0.1 K/uL (0-0.5); Absolute Lymphocytes (CBC) 1.5 K/uL (0.7-4.9); Absolute Monocytes 0.6 K/uL (0.1-1.3); Absolute Neutrophil 3.9 K/uL (1.8-8.0); Basophils % 0.5 % (0-1.3); Eosinophils % 1.6 % (0-4.4); Hematocrit 35.7 % (39.6-49.0); Hemoglobin 11.8 g/dL (13.6-17.9); MCH 30.4 pg (27.0-35.0); MCHC 33.2 g/dL (32.0-36.0); MCV 91.7 fL (80-100); MPV 6.7 fL (7.6-11.3); Monocytes % 9.3 % (3.3-12.3); Neutrophils % 64.6 % (41.7-73.7); Platelets 328 thou/uL (152-406); RBC Red Blood Cell Count 3.89 M/uL (4.33-5.43); Red Cell Distribution Width 14.3 % (12.1-15.2)
[2024-04-02 13:19] LABS: PT Prothrombin Time 11.6 SECONDS (9.4-12.5); Protime INR 1.06
[2024-04-02] MEDS ORDERED: HYDROMORPHONE HCL 1 MG/ML INJ ONE (13:21)
[2024-04-02 13:26] LABS: ALT/SGPT 21 U/L (16-61); AST/SGOT 20 U/L (15-37); Albumin 3.9 g/dL (3.4-5.0); Alkaline Phosphatase 81 U/L (45-117); Anion Gap 9.2 mEq/L (5.0-15.0); BUN Blood Urea Nitrogen 22 mg/dL (7-18); Bicarbonate 25 mEq/L (21-32); Bilirubin Total 0.5 mg/dL (0.2-1.0); Globulin 3.8 g/dL (2.3-3.5); Glomerular Filtration Rate 74 ml/min (=/>90); Glucose Level 263 mg/dL (74-106); Magnesium 2.1 mg/dL (1.6-2.4); NT PRO-BNP 13 pg/mL (<125); Potassium 3.2 mEq/L (3.5-5.1); Protein, Total 7.7 g/dL (6.4-8.2); Sodium Level 136 mEq/L (136-145); Troponin High Sensitivity 4.3 pg/mL (<58.9)
--- NOTE | 2024-04-02 13:26 | RAD REPORT ---
EXAM DESCRIPTION: CT - Chest For Pe Angio - 04/02/2024 1:11 pm CLINICAL HISTORY: CHEST PAIN COMPARISON: Chest For Pe Angio dated 03/24/2024; Chest For Pe Angio dated 11/14/2018; Chest For Pe Tamela o dated 08/19/2018; Chest For Pe Angio dated 08/09/2018 TECHNIQUE: Dynamically enhanced axial 3 mm thick images of the chest were obtained during administra tion of <100> mL Isovue 370 IV contrast. Coronal and oblique reconstruction images were generated and reviewed. Exam utilizes a protocol for optimal evaluation of pulmonary arterial tree. Maximum intensity projections 3D imaging was utilized All CT scans are performed using dose optimization technique as appropriate and may include automated exposure control or mA/KV adjustment according to patient size. FINDINGS: Chest Wall: No suspicious thyroid nodules or pathologic lymphadenopathy. Right upper chest wall Port-A-Cath. Lungs: No acute abnormality. Pleura: No significant effusions or pneumothorax. Mediastinum/mala: No pathologic lymphadenopathy. Pulmonary arteries/Aorta: Tiny nonocclusive thrombus in a right lower lobe pulmonary artery. See imag e 69, series 401. No aortic aneurysm. Heart: No significant pericardial effusion. Normal heart size. Upper abdomen: No acute abnormality.Cholecystectomy. Bones: No acute abnormality. IMPRESSION: Positive for small nonocclusive segmental size thrombus in the right lower lobe. Clot bu rden is low and probably not clinically significant. Conveyed to Dr. Nunez by Dr. Mclaughlin at 1320 on 04/02/24
[2024-04-02 13:28] LABS: Bilirubin Direct < 0.2 mg/dL (0-0.2); Bilirubin Indirect, Calculated 0.3 mg/dL (0.2-0.8)
--- NOTE | 2024-04-02 14:43 | EDPHYS ---
Physician Documentation [facility] Name: Christiano eSrra Age: 54 yrs Sex: Male : 1970 Arrival Date: 04/02/2024 Time: 12:04 Bed 6 Private MD: ED Physician Jordan Nunez HPI: 04/02 13:47 This 54 yrs old Male presents to ER via Ambulatory with complaints of Chest Pain. rt 13:47 Patient with history of factor V Leiden, multiple previous PEs, coronary artery disease rt presents to the ED with chest pain, shortness of breath starting today. Patient reports being tachycardic. Patient states that he had recent heart catheterization that showed no significant disease, patent stents, states that he tried nitro to no relief. Denies other acute complaints at this time, symptoms are moderate in severity, no other aggravating or alleviating factors.. Historical: - Allergies: 12:08 ambien; ll1 12:08 Morphine; ll1 12:08 Toradol; ll1 - PMHx: 12:08 PE (Myocardial infarcti); pericarditis (Myocardial infarcti); Hypertension; ll1 Hyperlipidemia; FACTOR V; Myocardial infarction; - PSHx: 12:08 back (di); cardiac stents (di); right chest port placement (di); ll1 - Immunization history:: Adult Immunizations up to date. - Infectious Disease History:: Denies. - Social history:: Smoking status: Patient denies any tobacco usage or history of. - Family history:: not pertinent. ROS: 13:47 Constitutional: Negative for fever, chills, and weight loss, Abdomen/GI: Negative for rt abdominal pain, nausea, vomiting, diarrhea, and constipation, MS/Extremity: Negative for injury and deformity, Skin: Negative for injury, rash, and discoloration, Neuro: Negative for headache, weakness, numbness, tingling, and seizure, 13:47 Cardiovascular: Positive for chest pain, Negative for edema, 13:47 Respiratory: Positive for shortness of breath, Negative for cough, Exam: 13:47 Constitutional: This is a well developed, well nourished patient who is awake, alert, rt and in no acute distress. Head/Face: Normocephalic, atraumatic. Chest/axilla: Normal chest wall appearance and motion. Nontender with no deformity. No lesions are appreciated. Cardiovascular: Regular rate and rhythm with a normal S1 and S2. No gallops, murmurs, or rubs. Normal PMI, no JVD. No pulse deficits. Respiratory: Lungs have equal breath sounds bilaterally, clear to auscultation and percussion. No rales, rhonchi or wheezes noted. No increased work of breathing, no retractions or nasal flaring. Abdomen/GI: Soft, non-tender, with normal bowel sounds. No distension or tympany. No guarding or rebound. No evidence of tenderness throughout. MS/ Extremity: Pulses equal, no cyanosis. Neurovascular intact. Full, normal range of motion. Neuro: Awake and alert, GCS 15, oriented to person, place, time, and situation. Cranial nerves II-XII grossly intact. Motor strength 5/5 in all extremities. Sensory grossly intact. Cerebellar exam normal. Normal gait. 13:47 ECG was reviewed by the Attending Physician. Vital Signs: 12:12 BP 131 / 109; Pulse 120; Resp 18; Temp 98.4; Pulse Ox 99% ; Weight 81.65 kg; Height 5 hb ft. 7 in. ; Pain 8/10; 13:17 BP 154 / 107; Pulse 108; Resp 18 S; Pulse Ox 100% on R/A; kc6 15:47 BP 145 / 89; Pulse 88; Resp 19 S; Pulse Ox 100% on R/A; kc6 12:12 Body Mass Index 28.19 (81.65 kg, 170.18 cm) hb 12:12 Pain Scale: Adult hb MDM: 12:18 Patient medically screened. rt 19:30 Differential diagnosis: PE, ACS, chest wall pain. Data reviewed: vital signs, nurses rt notes, lab test result(s), EKG, radiologic studies. Consideration of Admission/Observation Escalation of care including admission/observation considered. Discussed and offered admission to patient. Patient states that he strongly desirous of discharge, symptoms are improving. Discussed PE with the patient, states that he had multiple PEs, is currently on anticoagulation. He wishes to follow-up as an outpatient. Believe this is reasonable given patient's previous history. He will return for worsening symptoms.. I considered the following discharge prescriptions or medication management in the emergency department Medications were administered in the Emergency Department. See MAR. Independent interpretation of the following test(s) in the Emergency Department CT Scan: My interpretation is No pneumonia seen on interpretation of CT scan images. Test considered but Not performed: X-ray: CT scan ordered, x-ray redundant. Care significantly affected by the following chronic conditions: Factor V Leiden. Counseling: I had a detailed discussion with the patient and/or guardian regarding the historical points, exam findings, and any diagnostic results supporting the discharge/admit diagnosis, lab results, radiology results, the need for outpatient follow up, to return to the emergency department if symptoms worsen or persist or if there are any questions or concerns that arise at home. 04/02 12:26 Order name: Basic Metabolic Panel; Complete Time: : rt 04/02 12: Order name: CBC with Diff; Complete Time: rt 04/02 12: Order name: LFT's; Complete Time: rt 04/02 12:26 Order name: Magnesium; Complete Time: : rt 04/02 12:26 Order name: NT PRO-BNP; Complete Time: : rt 04/02 12:26 Order name: PT-INR; Complete Time: : rt 04/02 12:26 Order name: Troponin HS; Complete Time: : rt 04/02 12:26 Order name: CT Chest For PE Angio; Complete Time: : rt 04/02 12:26 Order name: Cardiac monitoring; Complete Time: 12:49 rt 04/02 12:26 Order name: EKG - Nurse/Tech; Complete Time: 12:49 rt 04/02 12:26 Order name: IV Saline Lock; Complete Time: 13: rt 04/02 12: Order name: Labs collected and sent; Complete Time: : rt 04/02 12: Order name: O2 Per Protocol; Complete Time: 13: rt 04/02 12: Order name: O2 Sat Monitoring; Complete Time: : rt EC:47 Rate is 105 beats/min. Rhythm is regular, Sinus tachycardia with No ectopy. QRS [place] is rt Normal. [place] interval is normal. QRS interval is normal. QT interval is normal. No Q waves. T waves are Normal. No ST changes noted. Interpreted by me. Administered Medications: 13:03 Drug: fentaNYL (PF) IVP 100 mcg IVP once Route: IVP; Site: Port-a-cath; kc6 13:17 Follow up: Response: No adverse reaction; Pain is unchanged, physician notified; RASS: kc6 Alert and Calm (0) 13:33 Drug: HYDROmorphone IVP 1 mg IVP once Route: IVP; Site: Port-a-cath; kc6 15:47 Follow up: Response: No adverse reaction; RASS: Alert and Calm (0) kc6 15:43 Drug: HYDROmorphone IVP 0.5 mg IVP once Route: IVP; Site: Port-a-cath; kc6 15:47 Follow up: Response: No adverse reaction; Pain is decreased; RASS: Alert and Calm (0) kc6 Disposition Summary: 04/02/24 14:42 Discharge Ordered Notes: Location: Home rt Problem: an ongoing problem rt Symptoms: have improved rt Condition: Stable rt Diagnosis - Chest pain, unspecified rt - Pulmonary embolism without acute cor pulmonale rt Followup: rt - With: Private Physician - When: 2 - 3 days - Reason: Discharge Instructions: - Discharge Summary Sheet rt - Nonspecific Chest Pain, Adult rt - Pulmonary Embolism rt Forms: - Medication Reconciliation Form rt - Antibiotic Education rt - Prescription Opioid Use rt - Patient Portal Instructions rt - Leadership Thank You Letter rt Signatures: Dispatcher [employer] EDMS Veronica Morris RN RN Shakir Hayden RN RN ll1 Nanette Reynolds RN RN kc6 Jordan Nunez MD MD rt Corrections: (The following items were deleted from the chart) 12: 12:27 BASIC METABOLIC PANEL+C.LAB.BRZ ordered. EDMS EDMS 12: 12:27 CBC+H.LAB.BRZ ordered. EDMS EDMS 12:27 12:27 HEPATIC FUNCTION+C.LAB.BRZ ordered. EDMS EDMS 12:27 12:27 MAGNESIUM+C.LAB.BRZ ordered. EDMS EDMS 12:27 12:27 PROBNP+C.LAB.BRZ ordered. EDMS EDMS 12:27 12:27 PROTIME (+INR)+COAG.LAB.BRZ ordered. EDMS EDMS 12:27 12:27 Troponin High Sensitivity+C.LAB.BRZ ordered. EDMS EDMS 12:27 12:27 Chest For PE Angio+CT.RAD.BRZ ordered. EDMS EDMS
--- NOTE | 2024-04-02 14:43 | ER ---
Nurse's Notes [facility] Name: Christiano Serra Age: 54 yrs Sex: Male : 1970 Arrival Date: 04/02/2024 Time: 12:04 Bed 6 Private MD: Diagnosis: Chest pain, unspecified;Pulmonary embolism without acute cor pulmonale Presentation: 04/02 12:12 Chief complaint: Patient states: CP since 5 AM. Coronavirus screen: Client denies hb travel out of the [place] in the last 14 days. At this time, the client does not indicate any symptoms associated with coronavirus-19. Ebola Screen: Patient denies travel to an Ebola-affected area in the 21 days before illness onset. Initial Sepsis Screen: Does the patient meet any 2 criteria? No. Patient's initial sepsis screen is negative. Does the patient have a suspected source of infection? No. Patient's initial sepsis screen is negative. Risk Assessment: Do you want to hurt yourself or someone else? Patient reports no desire to harm self or others. Onset of symptoms was April 02, 2024. 12:12 Method Of Arrival: Ambulatory hb 12:12 Acuity: RADHA 2 hb Triage Assessment: 12:12 General: Appears uncomfortable, Behavior is calm, cooperative, appropriate for age. ll1 Pain: Complains of pain in chest Pain Quality of pain is described as pressure. Cardiovascular: Reports chest pain. Historical: - Allergies: 12:08 ambien; ll1 12:08 Morphine; ll1 12:08 Toradol; ll1 - PMHx: 12:08 PE (Myocardial infarcti); pericarditis (Myocardial infarcti); Hypertension; ll1 Hyperlipidemia; FACTOR V; Myocardial infarction; - PSHx: 12:08 back (di); cardiac stents (di); right chest port placement (di); ll1 - Immunization history:: Adult Immunizations up to date. - Infectious Disease History:: Denies. - Social history:: Smoking status: Patient denies any tobacco usage or history of. - Family history:: not pertinent. Screenin:03 [facility] ED Fall Risk Assessment (Adult) History of falling in the last 3 months, kc6 including since admission No falls in past 3 months (0 pts) Confusion or Disorientation No (0 pts) Intoxicated or Sedated No (0 pts) Impaired Gait No (0 pts) Mobility Assist Device Used No (0 pt) Altered Elimination No (0 pt) Score/Fall Risk Level 0 - 2 = Low Risk. Abuse screen: Denies threats or abuse. Denies injuries from another. Nutritional screening: No deficits noted. Tuberculosis screening: No symptoms or risk factors identified. Assessment: 13:13 General: Appears in no apparent distress. uncomfortable, well groomed, well developed, kc6 Behavior is calm, cooperative, appropriate for age. Pain: Complains of pain in chest Pain does not radiate. Pain began 0500 Is continuous. Neuro: Level of Consciousness is awake, alert, obeys commands, Oriented to person, place, time, situation, Appropriate for age. Cardiovascular: Reports chest pain, Heart tones S1 S2 present Capillary refill < 3 seconds. Respiratory: Airway is patent Trachea midline Respiratory effort is even, unlabored, Respiratory pattern is regular, symmetrical. GI: No signs and/or symptoms were reported involving the gastrointestinal system. : No signs and/or symptoms were reported regarding the genitourinary system. EENT: No signs and/or symptoms were reported regarding the EENT system. Derm: No signs and/or symptoms reported regarding the dermatologic system. Skin is intact, is healthy with good turgor, Skin is pink, warm \T\ dry. Musculoskeletal: No signs and/or symptoms reported regarding the musculoskeletal system. Circulation, motion, and sensation intact. Capillary refill < 3 seconds, Range of motion: intact in all extremities. 14:13 Reassessment: Patient appears in no apparent distress at this time. No changes from kc6 previously documented assessment. Patient and/or family updated on plan of care and expected duration. Pain level reassessed. Patient is alert, oriented x 3, equal unlabored respirations, skin warm/dry/pink. 15:13 Reassessment: Patient appears in no apparent distress at this time. No changes from kc6 previously documented assessment. Patient and/or family updated on plan of care and expected duration. Pain level reassessed. Patient is alert, oriented x 3, equal unlabored respirations, skin warm/dry/pink. 15:47 Reassessment: Patient appears in no apparent distress at this time. No changes from kc6 previously documented assessment. Patient and/or family updated on plan of care and expected duration. Pain level reassessed. Patient is alert, oriented x 3, equal unlabored respirations, skin warm/dry/pink. Vital Signs: 12:12 BP 131 / 109; Pulse 120; Resp 18; Temp 98.4; Pulse Ox 99% ; Weight 81.65 kg; Height 5 hb ft. 7 in. ; Pain 8/10; 13:17 BP 154 / 107; Pulse 108; Resp 18 S; Pulse Ox 100% on R/A; kc6 15:47 BP 145 / 89; Pulse 88; Resp 19 S; Pulse Ox 100% on R/A; kc6 12:12 Body Mass Index 28.19 (81.65 kg, 170.18 cm) hb 12:12 Pain Scale: Adult hb ED Course: 12:06 Patient arrived in ED. mg5 12:08 Arm band placed on Patient placed in an exam room, on a stretcher. ll1 12:09 Jordan Nunez MD is Attending Physician. rt 12:13 Triage completed. hb 13:02 Nanette Reynolds RN is Primary Nurse. kc6 13:03 Patient has correct armband on for positive identification. Placed in gown. Bed in low kc6 position. Call light in reach. Side rails up X 1. site monitor on. Pulse ox on. NIBP on. Warm blanket given. Pillow given. 13:03 Accessed Port-a-Cath. Blood collected. using accessed w/ # 20 Rich needle, ,sterile kc6 technique, per hospital protocol. Clean \T\ dry. Good blood return. Flushes easily. 13:13 CT Chest For PE Angio In Process Unspecified. EDMS 13:17 Patient requests pain medication. kc6 15:48 No provider procedures requiring assistance completed. IV discontinued, intact, kc6 bleeding controlled, No redness/swelling at site. Pressure dressing applied. Administered Medications: 13:03 Drug: fentaNYL (PF) IVP 100 mcg IVP once Route: IVP; Site: Port-a-cath; kc6 13:17 Follow up: Response: No adverse reaction; Pain is unchanged, physician notified; RASS: kc6 Alert and Calm (0) 13:33 Drug: HYDROmorphone IVP 1 mg IVP once Route: IVP; Site: Port-a-cath; kc6 15:47 Follow up: Response: No adverse reaction; RASS: Alert and Calm (0) kc6 15:43 Drug: HYDROmorphone IVP 0.5 mg IVP once Route: IVP; Site: Port-a-cath; kc6 15:47 Follow up: Response: No adverse reaction; Pain is decreased; RASS: Alert and Calm (0) kc6 Medication: 15:48 VIS not applicable for this client. kc6 Outcome: 14:42 Discharge ordered by . rt 15:48 Discharged to home ambulatory, with family, kc6 15:48 Condition: good 15:48 Discharge instructions given to patient, Instructed on discharge instructions, follow up and referral plans. no driving heavy equipment, Demonstrated understanding of instructions, follow-up care, 15:48 Patient left the ED. kc6 Signatures: Dispatcher [employer] EDVeronica Knowles RN RN Shakir Hayden RN RN ll1 Nanette Reynolds RN RN kc6 Jordan Nunez MD MD rt [place], [place] mg5
[2024-04-02] MEDS ORDERED: HYDROMORPHONE HCL 0.5 MG/0.5 ML INJ ONE (15:38)
[2024-04-02 21:05] VITALS: BP 145/89; TEMP 98.4; O2SAT 100
--- NOTE | 2024-04-03 13:06 | EKG ---
Test Date: 2024-04-02 Test Time: 12:45:42 Remote Advisor: SAMANTHA MEASUREMENT RESULTS: Intervals: Rate: 105 OK: 162 QRSD: 98 QT: 336 QTc: 444 Vida: P: 45 OK: 162 QRS: 42 T: 55 INTERPRETIVE STATEMENTS: Sinus tachycardia Otherwise normal ECG Compared to ECG 03/26/2024 20:38:17 No significant changes Electronically Signed On 04-03-24 13:03:10 CDT by Guy Almaguer
== END 2024-04-02 15:48 | disposition home or self-care (01) ==
LOC: ER 12:04
DX: I26.99 Other pulmonary embolism without acute cor pulmonale (principal); Z95.818 Presence of other cardiac implants and grafts
CPT/HCPCS: 36415; 71275; 80048; 80076; 83735; 83880; 84484; 85025; 85610; 93005; 96374; 96375; 99285; J1170; J3010; Q9967

== ENCOUNTER 2024-05-15 14:10 | Emergency (ER) | payer SELFPAY ==
[2024-05-15] MEDS ORDERED: FENTANYL CITR 100 MCG/2 ML ONE (14:44)
[2024-05-15] MEDS ORDERED: HEPARIN/D5W 25,000 UNIT/500 ML BAG IV ONE (14:45)
--- NOTE | 2024-05-15 15:30 | RAD REPORT ---
EXAM DESCRIPTION: [facility] Single View05/15/2024 3:20 pm CLINICAL HISTORY: Chest pain COMPARISON: February 2024 FINDINGS: The lungs appear clear of acute infiltrate. The heart is normal size. Central venous cath eter in place IMPRESSION: No acute abnormalities displayed
--- NOTE | 2024-05-15 15:41 | ER ---
Nurse's Notes [facility] Name: Christiano Serra Age: 54 yrs Sex: Male : 1970 Arrival Date: 05/15/2024 Time: 14:10 Bed 16 Private MD: Diagnosis: Chest pain, unspecified;Dyspnea, unspecified Presentation: 05/15 14:16 Chief complaint:. Coronavirus screen: Client denies travel out of the [place] in the last ll1 14 days. At this time, the client does not indicate any symptoms associated with coronavirus-19. Ebola Screen: Patient denies travel to an Ebola-affected area in the 21 days before illness onset. Initial Sepsis Screen: Does the patient meet any 2 criteria? No. Patient's initial sepsis screen is negative. Does the patient have a suspected source of infection? No. Patient's initial sepsis screen is negative. Risk Assessment: Do you want to hurt yourself or someone else? Patient reports no desire to harm self or others. Onset of symptoms was May 15, 2024. 14:16 Method Of Arrival: Ambulatory ll1 14:16 Acuity: RADHA 3 ll1 14:19 Acuity: RADHA 2 hb Historical: - Allergies: 14:15 ambien; ll1 14:15 Morphine; ll1 14:15 Toradol; ll1 - PMHx: 14:15 Myocardial infarction; Hypertension; FACTOR V; PE (Myocardial infarcti); ll1 Hyperlipidemia; pericarditis (Myocardial infarcti); - PSHx: 14:15 back; cardiac stents; right chest port placement; ll1 - Immunization history:: Adult Immunizations up to date. - Infectious Disease History:: Denies. - Social history:: Smoking status: Patient denies any tobacco usage or history of. Screenin:24 [facility] ED Fall Risk Assessment (Adult) History of falling in the last 3 months, ko1 including since admission No falls in past 3 months (0 pts) Confusion or Disorientation No (0 pts) Intoxicated or Sedated No (0 pts) Impaired Gait No (0 pts) Mobility Assist Device Used No (0 pt) Altered Elimination No (0 pt) Score/Fall Risk Level 0 - 2 = Low Risk Oriented to surroundings, Maintained a safe environment, Educated pt \T\ family on fall prevention, incl call for assistance when getting out of bed, Assessed \T\ reinforced patient's understanding of fall precautions, Provided non-skid footwear, Hourly rounding (assess needs \T\ fall precautionary measures) done. Abuse screen: Denies threats or abuse. Denies injuries from another. Nutritional screening: No deficits noted. Tuberculosis screening: No symptoms or risk factors identified. Assessment: 15:29 General: Appears in no apparent distress. Behavior is calm, cooperative, appropriate ko1 for age. Pain: Complains of pain in chest Pain does not radiate. Pain began gradually. Neuro: No deficits noted. Cardiovascular: Reports chest pain, Rhythm is sinus tachycardia. Respiratory: No deficits noted. GI: No deficits noted. : No deficits noted. EENT: No deficits noted. Derm: No deficits noted. Musculoskeletal: No deficits noted. Vital Signs: 14:19 BP 179 / 112; Pulse 139; Resp 15; Temp 98.2; Pulse Ox 100% on R/A; Weight 81.65 kg; hb Height 5 ft. 7 in. ; Pain 8/10; 15:12 BP 161 / 107; Pulse 120; ec2 16:07 BP 158 / 97; Pulse 108; Resp 16; Pulse Ox 99% ; dd2 14:19 Body Mass Index 28.19 (81.65 kg, 170.18 cm) hb 14:19 Pain Scale: Adult hb ED Course: 14:11 Patient arrived in ED. mr 14:11 Anibal Ramos MD is Attending Physician. ec2 14:15 Arm band placed on Patient placed in an exam room, on a stretcher. ll1 14:16 Triage completed. ll1 14:25 GABRIEL DODSON, RN is Primary Nurse. dd2 15:21 XRAY Chest (1 view) In Process Unspecified. EDMS 15:24 Patient has correct armband on for positive identification. Allergy band placed. Placed ko1 in gown. Bed in low position. Call light in reach. Side rails up X2. Provided Education on: labs, meds, call light. Client placed on continuous cardiac and pulse oximetry monitoring. NIBP monitoring applied. athletic monitor on. Door closed. Noise minimized. Lights dimmed. Warm blanket given. Pillow given. 15:24 Accessed Port-a-Cath. using accessed w/ # 20 Rich needle, ,sterile technique, per [address] protocol. Clean \T\ dry. Dressing intact. No blood return. Difficult to flush. Patient maintains SpO2 saturation greater than 95% on room air. 16:07 No provider procedures requiring assistance completed. IV discontinued, intact, dd2 bleeding controlled, No redness/swelling at site. Pressure dressing applied. Administered Medications: 15:21 Drug: fentaNYL (PF) IVP 100 mcg IVP once Route: IVP; Site: right subclavian; dd2 15:36 Follow up: Response: No adverse reaction dd2 15:47 Not Given (Physician Discretion): Heparin (DVT/PE Drip) - ([id number] units, [id number] dd2 ml) 18 units/kg/hr IV at calculated rate Per protocol; Max initial rate 1800 units/hr Medication: 16:07 VIS not applicable for this client. dd2 Outcome: 15:41 Discharge ordered by . ec2 16:07 Discharged to home ambulatory, dd2 16:07 Condition: stable 16:07 Discharge instructions given to patient, Instructed on discharge instructions, Demonstrated understanding of instructions, 16:09 Patient left the ED. dd2 Signatures: Dispatcher [employer] EDWY Anh Stoddard, Reg Reg mr ArturoVeronica, RN RN Shakir Hayden RN RN ll1 Trena Klein RN RN ko1 Anibal Ramos MD MD ec2 GABRIEL DODSON RN RN dd2
--- NOTE | 2024-05-15 15:41 | EDPHYS ---
Physician Documentation [facility] Name: Christiano Serra Age: 54 yrs Sex: Male : 1970 Arrival Date: 05/15/2024 Time: 14:10 Bed 16 Private MD: ED Physician Anibal Ramos HPI: 05/15 14:29 This 54 yrs old Male presents to ER via Ambulatory with complaints of Chest Pain. ec2 14:29 Patient arrives today for chest pain and shortness of breath. Reported history of ec2 factor V Leiden, PE, on Lovenox. Patient reports history of PEs. Patient reports he is having chest pain and shortness of breath that is worsening since this morning. Patient reports an exertional component as well.. Historical: - Allergies: 14:15 ambien; ll1 14:15 Morphine; ll1 14:15 Toradol; ll1 - PMHx: 14:15 Myocardial infarction; Hypertension; FACTOR V; PE (Myocardial infarcti); ll1 Hyperlipidemia; pericarditis (Myocardial infarcti); - PSHx: 14:15 back; cardiac stents; right chest port placement; ll1 - Immunization history:: Adult Immunizations up to date. - Infectious Disease History:: Denies. - Social history:: Smoking status: Patient denies any tobacco usage or history of. ROS: 14:29 Constitutional: as per hpi ec2 Exam: 14:29 Constitutional: GEN: NAD Head: atraumatic Eyes: EOMI Ears: External ears are ec2 normal. CV: Tachycardia LUNGS: no respiratory distress ABD: non-distended SKIN: no evidence of rashes MSK: no evidence of trauma NEURO: moves all extremities equally Vital Signs: 14:19 BP 179 / 112; Pulse 139; Resp 15; Temp 98.2; Pulse Ox 100% on R/A; Weight 81.65 kg; hb Height 5 ft. 7 in. ; Pain 8/10; 15:12 BP 161 / 107; Pulse 120; ec2 16:07 BP 158 / 97; Pulse 108; Resp 16; Pulse Ox 99% ; dd2 14:19 Body Mass Index 28.19 (81.65 kg, 170.18 cm) hb 14:19 Pain Scale: Adult hb MDM: 14:11 Patient medically screened. ec2 14:29 Data reviewed: vital signs. ED course: Patient arrives today for evaluation of chest ec2 pain and shortness of breath with a history of significant clotting disorder as well as history of PEs. EKG obtained, independently reviewed and interpreted by me, shows sinus tachycardia, rate of 133, no acute ST segment elevations, intervals are otherwise nonconcerning. Given the patient's significant discomfort and significant tachycardia along with history, my concern is for PE. I will begin heparin drip at this time and hold bolus until confirmation.. 15:42 ED course: We were able to access the port with good flushing of it however had poor ec2 blood return. I recommended either groin or neck access for further workup and testing, ultimately patient declined and said he did not want to be poked in these areas and he expressed understanding regarding risks and benefits of obtaining further workup and potential complications along with our concern of a PE and will leave AGAINST MEDICAL ADVICE. He states that he will go to another facility they can appropriately access his port.. 05/15 14:11 Order name: XRAY Chest (1 view); Complete Time: 15:43 ec2 05/15 14:11 Order name: Cardiac monitoring; Complete Time: 14:32 ec2 05/15 14:11 Order name: EKG - Nurse/Tech; Complete Time: 14:32 ec2 05/15 14:11 Order name: IV Saline Lock ec2 05/15 14:11 Order name: Labs collected and sent ec2 05/15 14:11 Order name: O2 Per Protocol; Complete Time: 14:32 ec2 05/15 14:11 Order name: O2 Sat Monitoring; Complete Time: 14:32 ec2 Administered Medications: 15:21 Drug: fentaNYL (PF) IVP 100 mcg IVP once Route: IVP; Site: right subclavian; dd2 15:36 Follow up: Response: No adverse reaction dd2 15:47 Not Given (Physician Discretion): Heparin (DVT/PE Drip) - ([id number] units, [id number] dd2 ml) 18 units/kg/hr IV at calculated rate Per protocol; Max initial rate 1800 units/hr Disposition Summary: 05/15/24 15:41 Discharge Ordered Condition: Stable ec2 Diagnosis - Chest pain, unspecified ec2 - Dyspnea, unspecified ec2 Followup: ec2 - With: Private Physician - When: - Reason: Re-evaluation by your physician Discharge Instructions: - Discharge Summary Sheet ec2 Forms: - Medication Reconciliation Form ec2 - Antibiotic Education ec2 - Prescription Opioid Use ec2 - Patient Portal Instructions ec2 - Leadership Thank You Letter ec2 Signatures: Dispatcher [employer] Shakir Rolle RN RN ll1 Trena Klein RN RN ko1 Anibal Ramos MD MD ec2 GABRIEL DODSON RN RN dd2
[2024-05-15 19:44] VITALS: TEMP 98.2
[2024-05-15 19:54] VITALS: BP 158/97; O2SAT 99
--- NOTE | 2024-05-16 17:07 | EKG ---
Test Date: 2024-05-15 Test Time: 14:20:23 De Icer Kit Assembler: LANE MEASUREMENT RESULTS: Intervals: Rate: 133 MI: 156 QRSD: 84 QT: 286 QTc: 425 [place]: P: 60 MI: 156 QRS: 38 T: 68 INTERPRETIVE STATEMENTS: Sinus tachycardia Biatrial enlargement Abnormal ECG Compared to ECG 04/17/2024 19:14:39 Atrial abnormality now present Sinus rhythm no longer present Myocardial infarct finding no longer present Electronically Signed On 05-16-24 17:04:46 CDT by Guy Almaguer
== END 2024-05-15 16:09 | disposition home or self-care (01) ==
LOC: ER 14:10
DX: R07.9 Chest pain, unspecified (principal); R06.00 Dyspnea, unspecified; Z79.01 Long term (current) use of anticoagulants; Z95.818 Presence of other cardiac implants and grafts
CPT/HCPCS: 71045; 93005; 96374; 99285; J3010

== ENCOUNTER 2024-06-14 16:36 | Emergency (ER) | payer SELFPAY ==
[2024-06-14] MEDS ORDERED: HYDROMORPHONE HCL 0.5 MG/0.5 ML INJ ONE ×2 (17:11→18:45)
[2024-06-14] MEDS ORDERED: ONDANSETRON 4 MG/2 ML VIAL ONE (17:12)
[2024-06-14] MEDS ORDERED: ASPIRIN 81 MG CHEWABLE TABLET ONE (17:12)
[2024-06-14 17:15] LABS: Absolute Lymphocytes (CBC) 1.3 K/uL (0.7-4.9); Absolute Monocytes 0.6 K/uL (0.1-1.3); Absolute Neutrophil 5.3 K/uL (1.8-8.0); Basophils % 0.3 % (0-1.3); Eosinophils % 0.1 % (0-4.4); Hemoglobin 13.3 g/dL (13.6-17.9); Lymphocytes % 18.5 % (15.3-44.8); MCH 29.6 pg (27.0-35.0); MCHC 33.3 g/dL (32.0-36.0); MCV 89.1 fL (80-100); Monocytes % 7.7 % (3.3-12.3); Neutrophils % 73.4 % (41.7-73.7); Nucleated Red Blood Cells % 0.1 % (0-0); Platelets 258 thou/uL (152-406); RBC Red Blood Cell Count 4.49 M/uL (4.33-5.43); Red Cell Distribution Width 15.2 % (12.1-15.2)
[2024-06-14 17:18] LABS: PT Prothrombin Time 12.4 SECONDS (9.4-12.5); Protime INR 1.11
[2024-06-14 17:43] LABS: Albumin 4.1 g/dL (3.4-5.0); Albumin/Globulin Ratio 1.1 (1.1-1.8); Anion Gap 15.2 mEq/L (5.0-15.0); Bilirubin Direct 0.2 mg/dL (0-0.2); Bilirubin Indirect, Calculated 0.7 mg/dL (0.2-0.8); Bilirubin Total 0.9 mg/dL (0.2-1.0); Globulin 3.9 g/dL (2.3-3.5); Magnesium 1.8 mg/dL (1.6-2.4); Potassium 3.2 mEq/L (3.5-5.1); Troponin High Sensitivity 15.1 pg/mL (<58.9)
--- NOTE | 2024-06-14 18:47 | RAD REPORT ---
EXAM DESCRIPTION: Lizbet Single View06/14/2024 5:14 pm CLINICAL HISTORY: Chest pain COMPARISON: May 2024 FINDINGS: The lungs appear clear of acute infiltrate. The heart is normal size. Central venous catheter in place IMPRESSION: No acute abnormalities displayed
--- NOTE | 2024-06-14 18:48 | RAD REPORT ---
EXAM DESCRIPTION: CT - Chest For Pe Angio - 06/14/2024 6:33 pm CLINICAL HISTORY: Chest pain COMPARISON: March 2024 TECHNIQUE: Dynamically enhanced axial 3 mm thick images of the chest were obtained during administra tion of 100 mL Isovue 370 IV contrast. Coronal and oblique reconstruction images were generated and r eviewed. Exam utilizes a protocol for optimal evaluation of pulmonary arterial tree. Maximum intensity projections 3D imaging was utilized All CT scans are performed using dose optimization technique as appropriate and may include automated exposure control or mA/KV adjustment according to patient size. FINDINGS: Minimal thrombus right lower lobe pulmonary artery is subacute to old. It is unchanged in appearance from prior exam. No acute thrombus seen. A thoracic aortic aneurysm is not noted. A pleural effusion is not seen. A pericardial effusion is not seen. A lung consolidation is not present. Left renal calculus incompletely evaluated on this exam IMPRESSION: No acute pulmonary embolus noted
--- NOTE | 2024-06-14 18:55 | EDPHYS ---
Physician Documentation [facility] Name: Christiano Serra Age: 54 yrs Sex: Male : 1970 Arrival Date: 06/14/2024 Time: 16:36 Bed 17 Private MD: ED Physician Kelly Fleming HPI: 06/14 16:54 This 54 yrs old Male presents to ER via Ambulatory with complaints of Chest Pain. sd2 16:54 54 yo M presents with CC of R sided chest pain that started around 1:30pm this sd2 afternoon while he was in a meeting at work. Denies associated SOB but endorses nausea and diaphoresis. Tried taking nitro x3 without relief. Reports he is on Lovenox for Factor V deficiency but has had 3 clots already this year. He also has had stents previously but had a clean cardiac cath per patient report 3 months ago with his apprentice. He is also on Plavix.. Historical: - Allergies: 16:43 ambien; kc6 16:43 Morphine; kc6 16:43 Toradol; kc6 - PMHx: 16:43 FACTOR V; Hyperlipidemia; Hypertension; Myocardial infarction; pericarditis (Myocardial kc6 infarcti); PE (Myocardial infarcti); - PSHx: 16:43 back; cardiac stents; right chest port placement; kc6 - Immunization history:: Adult Immunizations up to date. - Infectious Disease History:: Denies. - Social history:: Smoking status: Patient denies any tobacco usage or history of. ROS: 16:54 Constitutional: Negative for fever, chills, and weight loss, Eyes: Negative for injury, sd2 pain, redness, and discharge, 16:54 Respiratory: Negative for shortness of breath, cough, wheezing. Abdomen/GI: Negative for abdominal pain, nausea, vomiting, diarrhea. MS/Extremity: Negative for injury and deformity, Skin: Negative for injury, rash, and discoloration, Neuro: Negative for headache, numbness and tingling. 16:54 Cardiovascular: Positive for chest pain, Negative for edema, palpitations, Exam: 16:54 Constitutional: This is a well developed, well nourished patient who is awake, alert, sd2 and in no acute distress. Head/Face: Normocephalic, atraumatic. Eyes: EOMI, normal conjunctiva bilaterally Chest/axilla: Normal chest wall appearance and motion. Nontender with no deformity. Cardiovascular: Tachycardic rate and regular rhythm with a normal S1 and S2. No gallops, murmurs, or rubs. 2+ distal pulses. Respiratory: Lungs have equal breath sounds bilaterally, clear to auscultation and percussion. No rales, rhonchi or wheezes noted. No increased work of breathing, no retractions or nasal flaring. Abdomen/GI: Soft, non-tender, with normal bowel sounds. No guarding or rebound. No evidence of tenderness throughout. Skin: Warm, dry with normal turgor. Normal color with no rashes, no lesions, and no evidence of cellulitis. MS/ Extremity: Pulses equal, no cyanosis. Neurovascular intact. Full, normal range of motion. Psych: Awake, alert, with orientation to person, place and time. Behavior, mood, and affect are within normal limits. 16:54 ECG was reviewed by the Attending Physician. sinus tachycardia, rate 122, no STEMI criteria Vital Signs: 16:42 BP 170 / 92; Pulse 115; Resp 18 S; Temp 98.2(TE); Pulse Ox 99% on R/A; Weight 81.65 kg kc6 (R); Height 5 ft. 7 in. (R); Pain 8/10; 16:50 BP 174 / 94; Pulse 124; Resp 20; Pulse Ox 100% on R/A; kj2 17:44 BP 139 / 98; Pulse 113; Resp 18; Pulse Ox 98% on R/A; kj2 18:52 BP 117 / 92; Pulse 105; Resp 18; Temp 98; Pulse Ox 100% on R/A; kj2 19:27 BP 142 / 111; Pulse 109; Resp 24; Temp 99.5(O); Pulse Ox 100% on R/A; Pain 0/10; mt4 16:42 Body Mass Index 28.19 (81.65 kg, 170.18 cm) [facility] 16:42 Pain Scale: Adult kc6 19:27 Pain Scale: Adult mt4 [place] Coma Score: 19:27 Eye Response: spontaneous(4). Motor Response: obeys commands(6). Verbal Response: mt4 oriented(5). Total: 15. MDM: 16:38 Patient medically screened. sd2 16:54 Differential diagnosis: PE, ACS, CHF, anemia, dissection, AAA, PTX among others. The sd2 patient was given aspirin in the Emergency Department. Data reviewed: vital signs, nurses notes, lab test result(s), EKG, radiologic studies. I considered the following discharge prescriptions or medication management in the emergency department Medications were administered in the Emergency Department. See MAR. 18:53 Care significantly affected by the following chronic conditions: Hypertension, ACS. sd2 Counseling: I had a detailed discussion with the patient and/or guardian regarding the historical points, exam findings, and any diagnostic results supporting the discharge/admit diagnosis, lab results, radiology results, the need for outpatient follow up, to return to the emergency department if symptoms worsen or persist or if there are any questions or concerns that arise at home. ED course: Pt feeling much improved. HR improving. Pain controlled. Pt comfortable with plan for discharge and outpatient follow up with his PCP and apprentice. Verbalizes understanding of dc plan and strict return precautions. No signs of PE on CTA. Trop neg. No EKG changes. . 06/14 16:54 Order name: Basic Metabolic Panel; Complete Time: 17:45 sd06/14 16:54 Order name: CBC with Diff; Complete Time: 17:45 sd06/14 16:54 Order name: LFT's; Complete Time: 17:45 sd06/14 16:54 Order name: Magnesium; Complete Time: 17:45 sd06/14 16:54 Order name: NT PRO-BNP; Complete Time: 17:45 sd06/14 16:54 Order name: PT-INR; Complete Time: 17:45 sd06/14 16:54 Order name: Troponin HS; Complete Time: 17:45 sd2 06/14 16:54 Order name: XRAY Chest (1 view); Complete Time: 18:49 sd2 06/14 16:54 Order name: CT Chest For PE Angio; Complete Time: 18:49 sd06/14 16:54 Order name: Cardiac monitoring; Complete Time: 17:04 sd06/14 16:54 Order name: EKG - Nurse/Tech; Complete Time: 17:04 sd06/14 16:54 Order name: IV Saline Lock; Complete Time: 17:11 sd06/14 16:54 Order name: Labs collected and sent; Complete Time: 17:11 sd2 06/14 16:54 Order name: O2 Per Protocol; Complete Time: 17:04 sd2 06/14 16:54 Order name: O2 Sat Monitoring; Complete Time: 17:04 sd2 Administered Medications: 17:10 Drug: Aspirin PO Chewable Tablet 324 mg PO once; 81 mg tablets x 4 Route: PO; kj2 19:30 Follow up: Response: No adverse reaction mt4 17:15 Drug: Ondansetron IVP 4 mg IVP once; over 2 minutes Route: IVP; Site: Port-a-cath; kj2 17:50 Follow up: Response: No adverse reaction kj2 17:17 Drug: HYDROmorphone IVP 0.5 mg IVP once Route: IVP; Site: Port-a-cath; kj2 17:50 Follow up: Response: No adverse reaction kj2 18:46 Drug: HYDROmorphone IVP 0.5 mg IVP once Route: IVP; Site: Port-a-cath; kj2 19:30 Follow up: Response: No adverse reaction mt4 19:38 Drug: HEParin Flush (100 units/mL) 500 units IVP once; for Port-a-cath packing Route: mt4 IVP; Site: right subclavian; 19:39 Follow up: Response: No adverse reaction mt4 Disposition Summary: 06/14/24 18:55 Discharge Ordered Problem: new sd2 Symptoms: have improved sd2 Condition: Stable sd2 Diagnosis - Chest pain, unspecified sd2 - Hereditary deficiency of other clotting factors sd2 Followup: sd2 - With: Private Physician - When: 2 - 3 days - Reason: Recheck today's complaints, Continuance of care, Re-evaluation by your physician Discharge Instructions: - Discharge Summary Sheet sd2 - Nonspecific Chest Pain, Adult sd2 Forms: - Medication Reconciliation Form sd2 - Antibiotic Education sd2 - Prescription Opioid Use sd2 - Patient Portal Instructions sd2 - Leadership Thank You Letter sd2 Signatures: Dispatcher [employer] Kelly Lobato MD MD sd2 Nanette Reynolds, RN RN kc6 Elba Marcos RN RN mt4 Kim Lord RN RN kj2 Corrections: (The following items were deleted from the chart) 16:54 16:54 BASIC METABOLIC PANEL+C.LAB.BRZ ordered. EDMS EDMS 16:54 16:54 CBC+H.LAB.BRZ ordered. EDMS EDMS 16:54 16:54 HEPATIC FUNCTION+C.LAB.BRZ ordered. EDMS EDMS 16:54 16:54 MAGNESIUM+C.LAB.BRZ ordered. EDMS EDMS 16:54 16:54 PROBNP+C.LAB.BRZ ordered. EDMS EDMS 16:54 16:54 PROTIME (+INR)+COAG.LAB.BRZ ordered. EDMS EDMS 16:54 16:54 Troponin High Sensitivity+C.LAB.BRZ ordered. EDMS EDMS 16:54 16:54 Chest Single View+RAD.RAD.BRZ ordered. EDMS EDMS 16:55 16:55 Chest For PE Angio+CT.RAD.BRZ ordered. EDMS EDMS
--- NOTE | 2024-06-14 18:55 | ER ---
Nurse's Notes [facility] Name: Christiano Serra Age: 54 yrs Sex: Male : 1970 Arrival Date: 06/14/2024 Time: 16:36 Bed 17 Private MD: Diagnosis: Chest pain, unspecified;Hereditary deficiency of other clotting factors Presentation: 06/14 16:42 Chief complaint: Patient states: 8/10 CP since 1330. Coronavirus screen: At this time, [facility] the client does not indicate any symptoms associated with coronavirus-19. Ebola Screen: No symptoms or risks identified at this time. Initial Sepsis Screen: Does the patient meet any 2 criteria? HR > 90 bpm. Does the patient have a suspected source of infection? No. Patient's initial sepsis screen is negative. Risk Assessment: Do you want to hurt yourself or someone else? Patient reports no desire to harm self or others. Onset of symptoms was June 14, 2024. 16:42 Method Of Arrival: Ambulatory [facility] 16:42 Acuity: RADHA 2 kc6 Historical: - Allergies: 16:43 ambien; kc6 16:43 Morphine; kc6 16:43 Toradol; kc6 - PMHx: 16:43 FACTOR V; Hyperlipidemia; Hypertension; Myocardial infarction; pericarditis (Myocardial kc6 infarcti); PE (Myocardial infarcti); - PSHx: 16:43 back; cardiac stents; right chest port placement; kc6 - Immunization history:: Adult Immunizations up to date. - Infectious Disease History:: Denies. - Social history:: Smoking status: Patient denies any tobacco usage or history of. Screenin:27 [facility] ED Fall Risk Assessment (Adult) History of falling in the last 3 months, mt4 including since admission No falls in past 3 months (0 pts) Confusion or Disorientation No (0 pts) Intoxicated or Sedated No (0 pts) Impaired Gait No (0 pts) Mobility Assist Device Used No (0 pt) Altered Elimination No (0 pt) Score/Fall Risk Level 0 - 2 = Low Risk. Abuse screen: Denies injuries from another. Nutritional screening: No deficits noted. Tuberculosis screening: No symptoms or risk factors identified. Assessment: 17:04 General: Appears uncomfortable, Behavior is cooperative. Pain: Complains of pain in kj2 chest Pain does not radiate. Pain currently is 7 out of 10 on a pain scale. Pain began 1 hour ago. 18:46 Reassessment: Patient and/or family updated on plan of care and expected duration. Pain kj2 level reassessed. Patient is alert, oriented x 3, equal unlabored respirations, skin warm/dry/pink. Patient is alert/active/playful, equal unlabored respirations, skin warm/dry/pink. 19:27 General: Appears in no apparent distress. comfortable, Behavior is calm, cooperative, mt4 appropriate for age. Pain: Denies pain. Neuro: Level of Consciousness is awake, alert, obeys commands, Oriented to person, place, time, situation, Tourist Information Assistant are equal bilaterally Moves all extremities. Speech is normal, Facial symmetry appears normal, Cardiovascular: Capillary refill < 3 seconds. Cardiovascular: Respiratory: Airway is patent Respiratory effort is even, unlabored, Respiratory pattern is regular, symmetrical. GI: Abdomen is non-distended, Abd is non tender. Derm: No deficits noted. Skin is intact, Skin is dry, Skin is pink, warm \T\ dry. Skin temperature is warm. Musculoskeletal: Capillary refill < 3 seconds, Range of motion: intact in all extremities. Vital Signs: 16:42 BP 170 / 92; Pulse 115; Resp 18 S; Temp 98.2(TE); Pulse Ox 99% on R/A; Weight 81.65 kg kc6 (R); Height 5 ft. 7 in. (R); Pain 8/10; 16:50 BP 174 / 94; Pulse 124; Resp 20; Pulse Ox 100% on R/A; kj2 17:44 BP 139 / 98; Pulse 113; Resp 18; Pulse Ox 98% on R/A; kj2 18:52 BP 117 / 92; Pulse 105; Resp 18; Temp 98; Pulse Ox 100% on R/A; kj2 19:27 BP 142 / 111; Pulse 109; Resp 24; Temp 99.5(O); Pulse Ox 100% on R/A; Pain 0/10; mt4 16:42 Body Mass Index 28.19 (81.65 kg, 170.18 cm) kc6 16:42 Pain Scale: Adult kc6 19:27 Pain Scale: Adult mt4 [place] Coma Score: 19:27 Eye Response: spontaneous(4). Motor Response: obeys commands(6). Verbal Response: mt4 oriented(5). Total: 15. ED Course: 16:36 Patient arrived in ED. mg5 16:38 Kelly Fleming MD is Attending Physician. sd2 16:43 Triage completed. kc6 16:43 Arm band placed on. EKG completed in triage. Results shown to MD. kc6 17:02 Kim Lord, RN is Primary Nurse. kj2 17:11 Basic Metabolic Panel Sent. cm10 17:11 CBC with Diff Sent. cm10 17:11 LFT's Sent. cm10 17:11 Magnesium Sent. cm10 17:11 NT PRO-BNP Sent. cm10 17:11 PT-INR Sent. cm10 17:11 Troponin HS Sent. cm10 17:11 Initial lab(s) drawn, by me, sent to lab. Accessed Port-a-Cath. Blood collected. using cm10 accessed w/ # 20 Rcih needle, ,sterile technique, per hospital protocol. Clean \T\ dry. Dressing intact. Good blood return. Flushes easily. 17:16 XRAY Chest (1 view) In Process Unspecified. EDMS 17:44 Warm blanket given. kj2 18:35 CT Chest For PE Angio In Process Unspecified. EDMS 19:27 No apparent distress. Awaiting transportation. mt4 19:27 Patient has correct armband on for positive identification. Placed in gown. Bed in low mt4 position. Call light in reach. Side rails up X 1. Provided Education on: discharge education, . Client placed on continuous cardiac and pulse oximetry monitoring. NIBP monitoring applied. alarm security or surveillance monitor on. Pulse ox on. Visitors limited. Lights dimmed. Warm blanket given. Pillow given. Verbal reassurance given. 19:27 No provider procedures requiring assistance completed. IV discontinued, intact, mt4 bleeding controlled, No redness/swelling at site. port access DC'd with heparin lock. Patient maintains SpO2 saturation greater than 95% on room air. Administered Medications: 17:10 Drug: Aspirin PO Chewable Tablet 324 mg PO once; 81 mg tablets x 4 Route: PO; kj2 19:30 Follow up: Response: No adverse reaction mt4 17:15 Drug: Ondansetron IVP 4 mg IVP once; over 2 minutes Route: IVP; Site: Port-a-cath; kj2 17:50 Follow up: Response: No adverse reaction kj2 17:17 Drug: HYDROmorphone IVP 0.5 mg IVP once Route: IVP; Site: Port-a-cath; kj2 17:50 Follow up: Response: No adverse reaction kj2 18:46 Drug: HYDROmorphone IVP 0.5 mg IVP once Route: IVP; Site: Port-a-cath; kj2 19:30 Follow up: Response: No adverse reaction mt4 19:38 Drug: HEParin Flush (100 units/mL) 500 units IVP once; for Port-a-cath packing Route: mt4 IVP; Site: right subclavian; 19:39 Follow up: Response: No adverse reaction mt4 Medication: 19:27 VIS not applicable for this client. mt4 Outcome: 18:55 Discharge ordered by . sd2 19:27 Condition: stable mt4 19:27 Discharge instructions given to patient, Instructed on discharge instructions, follow up and referral plans. safety practices, Demonstrated understanding of instructions, follow-up care, medications, Prescriptions given X 19:27 Prescriptions given X 19:33 Discharged to home ambulatory, with friend, mt4 19:39 Patient left the ED. mt4 Signatures: Dispatcher [employer] EDMS Kelly Fleming MD MD sd2 Nanette Reynolds, RN RN kc6 Ana Luisa Coppola RN RN cm10 Farhana Hutchins 5 Elba Marcos RN RN mt4 Kim Lord RN RN kj2
[2024-06-14] MEDS ORDERED: HEPARIN 500 UNIT/5 ML SYR IV ONE (19:19)
[2024-06-14 20:16] VITALS: O2SAT 100
[2024-06-14 20:17] VITALS: BP 142/111; TEMP 99.5
--- NOTE | 2024-06-16 14:11 | EKG ---
Test Date: 2024-06-14 Test Time: 16:46:58 Automatic Drilling Machine Operator: SHELLI MEASUREMENT RESULTS: Intervals: Rate: 122 TN: 168 QRSD: 88 QT: 310 QTc: 441 [place]: P: 46 TN: 168 QRS: 16 T: 27 INTERPRETIVE STATEMENTS: Sinus tachycardia Left ventricular hypertrophy Abnormal ECG Compared to ECG 05/15/2024 14:20:23 Left ventricular hypertrophy now present Atrial abnormality no longer present Electronically Signed On 06-16-24 14:07:53 CDT by Guy Almaguer
== END 2024-06-14 19:39 | disposition home or self-care (01) ==
LOC: ER 16:36
DX: R07.9 Chest pain, unspecified (principal); D68.2 Hereditary deficiency of other clotting factors
CPT/HCPCS: 36415; 71045; 71275; 80048; 80076; 83735; 83880; 84484; 85025; 85610; 93005; 99285; J1170; J1642; J2405; Q9967

== ENCOUNTER 2024-07-11 08:28 | Emergency (ER) | payer SELFPAY ==
[2024-07-11] MEDS ORDERED: ONDANSETRON 4 MG/2 ML VIAL ONE (08:59)
[2024-07-11] MEDS ORDERED: HYDROMORPHONE HCL 1 MG/ML INJ ONE (08:59)
[2024-07-11] MEDS ORDERED: NA CHLORIDE 0.9% 1,000 ML ONE (09:00)
[2024-07-11] MEDS ORDERED: NA CHLORIDE 0.9% 500 ML ONE (09:00)
[2024-07-11 09:38] LABS: Absolute Eosinophils 0.1 K/uL (0-0.5); Absolute Lymphocytes (CBC) 2.3 K/uL (0.7-4.9); Absolute Monocytes 0.7 K/uL (0.1-1.3); Absolute Neutrophil 2.7 K/uL (1.8-8.0); Basophils % 0.8 % (0-1.3); Eosinophils % 2.6 % (0-4.4); Hematocrit 35.6 % (39.6-49.0); Hemoglobin 11.9 g/dL (13.6-17.9); Lymphocytes % 38.8 % (15.3-44.8); MCH 29.9 pg (27.0-35.0); MCHC 33.4 g/dL (32.0-36.0); MCV 89.5 fL (80-100); MPV 6.7 fL (7.6-11.3); Monocytes % 12.5 % (3.3-12.3); Neutrophils % 45.3 % (41.7-73.7); Nucleated Red Blood Cells % 0.1 % (0-0); Platelets 353 thou/uL (152-406); RBC Red Blood Cell Count 3.97 M/uL (4.33-5.43); Red Cell Distribution Width 15.9 % (12.1-15.2)
[2024-07-11 09:40] LABS: PT Prothrombin Time 10.4 SECONDS (9.4-12.5); Protime INR 0.93
--- NOTE | 2024-07-11 09:53 | RAD REPORT ---
EXAMINATION: ONE VIEW CHEST XR CLINICAL INDICATION: CHEST PAIN TECHNIQUE: Frontal chest projection is submitted. Examination is limited by patient positioning and t echnique. COMPARISON: 06/22/2024, 06/14/2024 FINDINGS: The lungs are well inflated and clear. The heart is normal in size. No displaced fractures identified . Right port catheter tip in SVC. IMPRESSION: No acute intrathoracic abnormalities.
[2024-07-11 09:55] LABS: AST/SGOT 12 U/L (15-37); Alkaline Phosphatase 72 U/L (45-117); Anion Gap 10.2 mEq/L (5.0-15.0); BUN Blood Urea Nitrogen 21 mg/dL (7-18); Bicarbonate 24 mEq/L (21-32); Bilirubin Total 0.5 mg/dL (0.2-1.0); Globulin 4.1 g/dL (2.3-3.5); Glomerular Filtration Rate 102 ml/min (=/>90); Glucose Level 109 mg/dL (74-106); Lipase 34 U/L (13-75); Magnesium 2.2 mg/dL (1.6-2.4); NT PRO-BNP 7 pg/mL (<125); Potassium 3.2 mEq/L (3.5-5.1); Protein, Total 8.1 g/dL (6.4-8.2); Sodium Level 139 mEq/L (136-145); Troponin High Sensitivity 5.6 pg/mL (<58.9)
[2024-07-11 09:59] LABS: ALT/SGPT < 14 U/L (16-61); Bilirubin Direct < 0.2 mg/dL (0-0.2); Bilirubin Indirect, Calculated 0.3 mg/dL (0.2-0.8)
[2024-07-11 10:50] LABS: Specific Gravity 1.007 (1.005-1.030); Urine Bilirubin NEGATIVE (Negative); Urine Blood Negative (Negative); Urine Clarity Clear (Clear); Urine Color Colorless (Yellow); Urine Glucose NEGATIVE (Negative); Urine Ketones NEGATIVE (Negative); Urine Microscopic Reflex YN NO UMIC; Urine Nitrite NEGATIVE (Negative); Urine Protein NEGATIVE (Negative); Urine Urobilinogen Normal (Normal); Urine pH 5.5 (5.0-7.0)
[2024-07-11 10:58] LABS: Barbiturates NEGATIVE (NEGATIVE); Benzodiazepines NEGATIVE (NEGATIVE); Cocaine NEGATIVE (NEGATIVE); METHAMPHETAM NEGATIVE (NEGATIVE); Methadone NEGATIVE (NEGATIVE); Opiates POSITIVE (NEGATIVE); Phencyclidine NEGATIVE (NEGATIVE); THC Cannibis NEGATIVE (NEGATIVE)
[2024-07-11] MEDS ORDERED: LORazepam 2 MG/ML VIAL ONE (11:12)
[2024-07-11] MEDS ORDERED: POTASSIUM 25 MEQ EFFERV TAB ONE (11:13)
[2024-07-11] MEDS ORDERED: METOPROLOL TARTRATE 5 MG/5 ML INJ IV ONE (11:13)
--- NOTE | 2024-07-11 11:15 | ER ---
Nurse's Notes [facility] Name: Christiano Serra Age: 54 yrs Sex: Male : 1970 Arrival Date: 07/11/2024 Time: 08:28 Bed 13 Private MD: Diagnosis: Chest pain, unspecified;Acute stress reaction;Tachycardia, unspecified;Essential (primary) hypertension;Hypokalemia;care home (current) use of anticoagulants Presentation: 07/11 08:44 Chief complaint: Patient states: chest pain since 6 am. Coronavirus screen: At this iw time, the client does not indicate any symptoms associated with coronavirus-19. Ebola Screen: No symptoms or risks identified at this time. Initial Sepsis Screen: Does the patient meet any 2 criteria? No. Patient's initial sepsis screen is negative. Does the patient have a suspected source of infection? No. Patient's initial sepsis screen is negative. Risk Assessment: Do you want to hurt yourself or someone else? Patient reports no desire to harm self or others. Onset of symptoms was July 11, 2024. 08:44 Method Of Arrival: Ambulatory iw 08:44 Acuity: RADHA 2 iw Historical: - Allergies: 08:45 ambien; iw 08:45 Morphine; iw 08:45 Toradol; iw - PMHx: 08:45 FACTOR V; Hypertension; Hyperlipidemia; Myocardial infarction; PE; pericarditis; iw - PSHx: 08:45 cardiac stents; Cholecystectomy; right chest port placement; back; iw - Immunization history:: Adult Immunizations up to date. - Infectious Disease History:: Denies. - Social history:: Smoking status: Patient denies any tobacco usage or history of. - Family history:: not pertinent. Screenin:11 [facility] ED Fall Risk Assessment (Adult) History of falling in the last 3 months, kc6 including since admission No falls in past 3 months (0 pts) Confusion or Disorientation No (0 pts) Intoxicated or Sedated No (0 pts) Impaired Gait No (0 pts) Mobility Assist Device Used No (0 pt) Altered Elimination No (0 pt) Score/Fall Risk Level 0 - 2 = Low Risk Oriented to surroundings. Abuse screen: Denies threats or abuse. Denies injuries from another. Nutritional screening: No deficits noted. Tuberculosis screening: No symptoms or risk factors identified. Assessment: 10:11 General: Appears in no apparent distress. comfortable, well groomed, well developed, kc6 Behavior is calm, cooperative, appropriate for age. Pain: Complains of pain in chest Pain does not radiate. Pain began 4 hours ago. Neuro: Level of Consciousness is awake, alert, obeys commands, Oriented to person, place, time, situation, Appropriate for age. Cardiovascular: Reports chest pain, Heart tones S1 S2 present Capillary refill < 3 seconds Rhythm is sinus tachycardia. Respiratory: Airway is patent Trachea midline Respiratory effort is even, unlabored, Respiratory pattern is regular, symmetrical. GI: No signs and/or symptoms were reported involving the gastrointestinal system. : No signs and/or symptoms were reported regarding the genitourinary system. EENT: No signs and/or symptoms were reported regarding the EENT system. Derm: No signs and/or symptoms reported regarding the dermatologic system. Skin is intact, is healthy with good turgor, Skin is pink, warm \T\ dry. Musculoskeletal: No signs and/or symptoms reported regarding the musculoskeletal system. Circulation, motion, and sensation intact. Capillary refill < 3 seconds, Range of motion: intact in all extremities. 11:38 Reassessment: Patient appears in no apparent distress at this time. No changes from kc6 previously documented assessment. Patient and/or family updated on plan of care and expected duration. Pain level reassessed. Patient is alert, oriented x 3, equal unlabored respirations, skin warm/dry/pink. Patient states feeling better. Patient states symptoms have improved. Vital Signs: 08:44 BP 159 / 110; Pulse 121; Resp 16; Temp 98.2; Pulse Ox 97% on R/A; Weight 79.38 kg; iw Height 5 ft. 7 in. ; Pain 8/10; 10:10 BP 154 / 110; Pulse 90; Resp 16 S; Pulse Ox 99% on R/A; kc6 11:29 BP 164 / 110; Pulse 85; Resp 18 S; Pulse Ox 96% on R/A; kc6 08:44 Body Mass Index 27.41 (79.38 kg, 170.18 cm) iw 08:44 Pain Scale: Adult iw ED Course: 08:31 Patient arrived in ED. im 08:32 Derian Vo MD is Attending Physician. lauryn 08:45 Triage completed. iw 08:46 Arm band placed on. iw 08:58 Nanette Reynolds, RN is Primary Nurse. kc6 09:25 Accessed Port-a-Cath. Blood collected. using accessed w/ # 20 Rich needle, ,sterile kc6 technique, per hospital protocol. Clean \T\ dry. Dressing intact. Good blood return. Flushes easily. Patient maintains SpO2 saturation greater than 95% on room air. 09:32 XRAY Chest (1 view) In Process Unspecified. EDMS 10:10 Patient has correct armband on for positive identification. Placed in gown. Bed in low kc6 position. Call light in reach. Side rails up X 1. hall monitor on. Pulse ox on. NIBP on. Door closed. Noise minimized. Lights dimmed. Pillow given. 10:36 Patient requests pain medication. mb9 10:42 Urine collected: clean catch specimen, clear. mb9 11:14 Guy Almaguer MD is Referral Physician. lauryn 11:38 No provider procedures requiring assistance completed. IV discontinued, intact, kc6 bleeding controlled, No redness/swelling at site. Pressure dressing applied. Administered Medications: 09:25 Drug: HYDROmorphone IVP 1 mg IVP once Route: IVP; Site: Port-a-cath; kc6 10:12 Follow up: Response: No adverse reaction kc6 09:25 Drug: Ondansetron IVP 4 mg IVP once; over 2 minutes Route: IVP; Site: Port-a-cath; kc6 10:12 Follow up: Response: No adverse reaction kc6 09:25 Drug: NS 0.9% IV 500 ml IV at bolus once Route: IV; Rate: bolus; Site: Port-a-cath; kc6 10:12 Follow up: Response: No adverse reaction; IV Status: Completed infusion; IV Intake: kc6 500ml 09:25 Drug: NS 0.9% IV 1000 ml IV at 125 ml/hr continuous Route: IV; Rate: 125 ml/hr; Site: [facility] Port-a-cath; 11:29 Drug: Potassium PO Effervescent Tablet 50 mEq PO once; dissolve in 4 ounces of water or kc6 juice Route: PO; 11:37 Follow up: Response: No adverse reaction kc6 11:29 Drug: Ativan IVP 0.5 mg IVP once Route: IVP; Site: Port-a-cath; kc6 11:37 Follow up: Response: No adverse reaction; Anxiety decreased; RASS: Alert and Calm (0) kc6 11:29 Drug: Metoprolol IVP 5 mg IVP once; Hold for SBP <100 or HR <60. Route: IVP; Site: [facility] Port-a-cath; 11:37 Follow up: Response: No adverse reaction kc6 11:37 Drug: Aspirin PO Chewable Tablet 81 mg PO once Route: PO; kc6 11:37 Follow up: Response: No adverse reaction kc6 Medication: 11:38 VIS not applicable for this client. kc6 Intake: 10:12 IV: 500ml; Total: 500ml. kc6 Outcome: 11:15 Discharge ordered by . lauryn 11:38 Discharged to home ambulatory, 6 11:38 Condition: good 11:38 Discharge instructions given to patient, Instructed on discharge instructions, follow up and referral plans. no drinking with medication, no driving heavy equipment, medication usage, Demonstrated understanding of instructions, follow-up care, medications, Prescriptions given X 2, 11:39 Patient left the ED. kc6 Signatures: Dispatcher [employer] EDMS Derian Vo MD MD cha Williams, Irene RN ADRIANA iw Nanette Reynolds RN RN Anh La RN RN mb9 Noemy Velázquez Corrections: (The following items were deleted from the chart) 08:46 08:44 Acuity: RADHA 3 iw iw 08:46 08:44 BP 159 / ???; Pulse 121bpm; Resp 16bpm; Pulse Ox 97% RA; Temp 98.2F; 79.38 kg; iw Height 5 ft. 7 in.; BMI: 27.4; Pain 8/10, Adult; iw
--- NOTE | 2024-07-11 11:15 | EDPHYS ---
Physician Documentation [facility] Name: Christiano Serra Age: 54 yrs Sex: Male : 1970 Arrival Date: 07/11/2024 Time: 08:28 Bed 13 Private MD: VIVEK Physician Derian Vo HPI: 07/11 11:01 This 54 yrs old Male presents to ER via Ambulatory with complaints of Chest Pain. [facility] 11:01 The patient or guardian reports chest pain that is located primarily in the anterior lauryn chest wall, right. Onset: just prior to arrival, this morning. The pain does not radiate. Associated signs and symptoms: Pertinent positives: None. The chest pain is described as sharp. Duration: The patient or guardian reports multiple episodes, with no pattern. Modifying factors: The symptoms are alleviated by nothing. the symptoms are aggravated by emotionally stressful situations. Severity of pain: At its worst the pain was mild in the emergency department the pain is unchanged. Historical: - Allergies: 08:45 ambien; iw 08:45 Morphine; iw 08:45 Toradol; iw - PMHx: 08:45 FACTOR V; Hypertension; Hyperlipidemia; Myocardial infarction; PE; pericarditis; iw - PSHx: 08:45 cardiac stents; Cholecystectomy; right chest port placement; back; iw - Immunization history:: Adult Immunizations up to date. - Infectious Disease History:: Denies. - Social history:: Smoking status: Patient denies any tobacco usage or history of. - Family history:: not pertinent. ROS: 11:01 Constitutional: Negative for fever, chills, and weight loss, Eyes: Negative for injury, lauryn pain, redness, and discharge, ENT: Negative for injury, pain, and discharge, Neck: Negative for injury, pain, and swelling, Respiratory: Negative for shortness of breath, cough, wheezing, and pleuritic chest pain, Abdomen/GI: Negative for abdominal pain, nausea, vomiting, diarrhea, and constipation, Back: Negative for injury and pain, : Negative for injury, bleeding, discharge, and swelling, MS/Extremity: Negative for injury and deformity, Skin: Negative for injury, rash, and discoloration, Neuro: Negative for headache, weakness, numbness, tingling, and seizure, Psych: Negative for depression, anxiety, suicide ideation, homicidal ideation, and hallucinations, Allergy/Immunology: Negative for hives, rash, and allergies, Endocrine: Negative for neck swelling, polydipsia, polyuria, polyphagia, and marked weight changes, Hematologic/Lymphatic: Negative for swollen nodes, abnormal bleeding, and unusual bruising, 11: Cardiovascular: Positive for chest pain, Exam: 11: Constitutional: This is a well developed, well nourished patient who is awake, alert, lauryn and in no acute distress. Head/Face: Normocephalic, atraumatic. Eyes: Pupils equal round and reactive to light, extra-ocular motions intact. Lids and lashes normal. Conjunctiva and sclera are non-icteric and not injected. Cornea within normal limits. Periorbital areas with no swelling, redness, or edema. ENT: Nares patent. No nasal discharge, no septal abnormalities noted. Tympanic membranes are normal and external auditory canals are clear. Oropharynx with no redness, swelling, or masses, exudates, or evidence of obstruction, uvula midline. Mucous membranes moist. Neck: Trachea midline, no thyromegaly or masses palpated, and no cervical lymphadenopathy. Supple, full range of motion without nuchal rigidity, or vertebral point tenderness. No Meningismus. Chest/axilla: Normal chest wall appearance and motion. Nontender with no deformity. No lesions are appreciated. Cardiovascular: Regular rate and rhythm with a normal S1 and S2. No gallops, murmurs, or rubs. Normal PMI, no JVD. No pulse deficits. Respiratory: Lungs have equal breath sounds bilaterally, clear to auscultation and percussion. No rales, rhonchi or wheezes noted. No increased work of breathing, no retractions or nasal flaring. Abdomen/GI: Soft, non-tender, with normal bowel sounds. No distension or tympany. No guarding or rebound. No evidence of tenderness throughout. Back: No spinal tenderness. No costovertebral tenderness. Full range of motion. Male : Normal genitalia with no discharge or lesions. Skin: Warm, dry with normal turgor. Normal color with no rashes, no lesions, and no evidence of cellulitis. MS/ Extremity: Pulses equal, no cyanosis. Neurovascular intact. Full, normal range of motion. Neuro: Awake and alert, GCS 15, oriented to person, place, time, and situation. Cranial nerves II-XII grossly intact. Motor strength 5/5 in all extremities. Sensory grossly intact. Cerebellar exam normal. Normal gait. Psych: Awake, alert, with orientation to person, place and time. Behavior, mood, and affect are within normal limits. 11:01 ECG was reviewed by the Attending Physician. Vital Signs: 08:44 BP 159 / 110; Pulse 121; Resp 16; Temp 98.2; Pulse Ox 97% on R/A; Weight 79.38 kg; iw Height 5 ft. 7 in. ; Pain 8/10; 10:10 BP 154 / 110; Pulse 90; Resp 16 S; Pulse Ox 99% on R/A; kc6 11:29 BP 164 / 110; Pulse 85; Resp 18 S; Pulse Ox 96% on R/A; kc6 08:44 Body Mass Index 27.41 (79.38 kg, 170.18 cm) iw 08:44 Pain Scale: Adult iw MDM: 08:32 Patient medically screened. lauryn 11:12 Differential diagnosis: abnormal EKG, acute myocardial infarction, acute pericarditis, lauyrn anxiety, chest wall pain, costochondritis, esophagitis, gastroesophageal reflux disease (GERD), herpes zoster, myocarditis, pancreatitis, peptic ulcer disease, pericarditis, pleurisy, pneumonia, pulmonary embolus, stable angina, thoracic aortic disection, unstable angina. HEART Score: History: Moderately Suspicious (1), ECG: Non specific repolarization disturbance / LBTB / PM (1), Age: > 45 and < 65 years (1), Risk Factors: > or = 3 Risk factors for atherosclerotic disease (2), [Hypercholesterolemia] [Hypertension] [+ Family HX]. The patient was given aspirin in the Emergency Department. TANVI Risk Score: 1 - Three or more CAD risk factors, [Family Hx], [HTN], [Elevated Cholesterol], 1 - ASA use in past 7 days, 1 - Recent [<24hrs] Severe Angina, TOTAL SCORE = 3. Data reviewed: vital signs, nurses notes, lab test result(s), EKG, radiologic studies, plain films. Consideration of Admission/Observation Patient was admitted/placed on observation. Escalation of care including admission/observation considered. I considered the following discharge prescriptions or medication management in the emergency department Medications were administered in the Emergency Department. See MAR. Independent interpretation of the following test(s) in the Emergency Department EKG: See my EKG interpretation above. ED course: cath last month was negative for cad. 07/11 08:33 Order name: Basic Metabolic Panel; Complete Time: 10:59 lauryn 07/11 08:33 Order name: CBC with Diff; Complete Time: 10:59 lauryn 07/11 08:33 Order name: LFT's; Complete Time: 10:59 lauryn 07/11 08:33 Order name: Magnesium; Complete Time: 10:59 lauryn 07/11 08:33 Order name: NT PRO-BNP; Complete Time: 10:59 lauryn 07/11 08:33 Order name: PT-INR; Complete Time: 10:59 lauryn 07/11 08:33 Order name: Troponin HS; Complete Time: 10:59 lauryn 07/11 08:33 Order name: Lipase; Complete Time: 10:59 lauryn 07/11 08:33 Order name: Urinalysis w/ reflexes; Complete Time: 10:59 lauryn 07/11 08:33 Order name: UDS; Complete Time: 10:59 lauryn 07/11 08:33 Order name: XRAY Chest (1 view); Complete Time: 10:59 lauryn 07/11 08:33 Order name: Cardiac monitoring; Complete Time: 09:25 lauryn 07/11 08:33 Order name: EKG - Nurse/Tech; Complete Time: 09:25 [facility] 07/11 08:33 Order name: IV Saline Lock; Complete Time: 09:25 [facility] 07/11 08:33 Order name: Labs collected and sent; Complete Time: 09:25 lauryn 07/11 08:33 Order name: O2 Per Protocol; Complete Time: 09:25 [facility] 07/11 08:33 Order name: O2 Sat Monitoring; Complete Time: 09:25 [facility] EC: Rate is 111 beats/min. Rhythm is regular. QRS [place] is Normal. DC interval is normal. [facility] QRS interval is normal. QT interval is normal. No Q waves. T waves are Normal. No ST changes noted. Clinical impression: Sinus tachycardia and No evidence of ischemia. Interpreted by me. Reviewed by me. Administered Medications: 09:25 Drug: HYDROmorphone IVP 1 mg IVP once Route: IVP; Site: Port-a-cath; kc6 10:12 Follow up: Response: No adverse reaction [facility] 09:25 Drug: Ondansetron IVP 4 mg IVP once; over 2 minutes Route: IVP; Site: Port-a-cath; kc6 10:12 Follow up: Response: No adverse reaction [facility] 09:25 Drug: NS 0.9% IV 500 ml IV at bolus once Route: IV; Rate: bolus; Site: Port-a-cath; kc6 10:12 Follow up: Response: No adverse reaction; IV Status: Completed infusion; IV Intake: kc6 500ml 09:25 Drug: NS 0.9% IV 1000 ml IV at 125 ml/hr continuous Route: IV; Rate: 125 ml/hr; Site: [facility] Port-a-cath; 11:29 Drug: Potassium PO Effervescent Tablet 50 mEq PO once; dissolve in 4 ounces of water or kc6 juice Route: PO; 11:37 Follow up: Response: No adverse reaction 6 11:29 Drug: Ativan IVP 0.5 mg IVP once Route: IVP; Site: Port-a-cath; 6 11:37 Follow up: Response: No adverse reaction; Anxiety decreased; RASS: Alert and Calm (0) 6 11:29 Drug: Metoprolol IVP 5 mg IVP once; Hold for SBP <100 or HR <60. Route: IVP; Site: [facility] Port-a-cath; 11:37 Follow up: Response: No adverse reaction [facility] 11:37 Drug: Aspirin PO Chewable Tablet 81 mg PO once Route: PO; 6 11:37 Follow up: Response: No adverse reaction [facility] Disposition Summary: 07/11/24 11:15 Discharge Ordered Notes: Location: Home lauryn Problem: new lauryn Symptoms: have improved lauryn Condition: Stable lauryn Diagnosis - Chest pain, unspecified lauryn - Acute stress reaction lauryn - Tachycardia, unspecified lauryn - Essential (primary) hypertension lauryn - Hypokalemia lauryn - assisted (current) use of anticoagulants lauryn Followup: lauryn - With: Private Physician - When: 2 - 3 days - Reason: Recheck today's complaints, Continuance of care, Re-evaluation by your physician Followup: lauryn - With: Guy Almaguer MD - When: 2 - 3 days - Reason: Recheck today's complaints, Continuance of care, Re-evaluation by your physician Discharge Instructions: - Discharge Summary Sheet lauryn - Nonspecific Chest Pain, Adult lauryn - Potassium Content of Foods lauryn - Hypertension, Adult lauryn - Nonspecific Chest Pain, Adult, [id number] lauryn - Hypertension, Adult, [id number] lauryn - How to Take Your Blood Pressure, [id number] lauryn - Aspirin and Your Heart lauryn - Hypokalemia lauryn - Managing Your Hypertension lauryn Forms: - Medication Reconciliation Form lauryn - Antibiotic Education lauryn - Prescription Opioid Use lauryn - Patient Portal Instructions lauryn - Leadership Thank You Letter [facility] Prescriptions: - Bystolic 10 mg Oral tablet - take 1 tablet ORAL route daily; 30 tablet; Refills: 0, Product Selection lauryn Permitted - Xanax 0.5 mg Oral tablet - take 1 tablet ORAL route every 8 hours As needed; 15 tablet; Refills: 0, lauryn Product Selection Permitted Signatures: Dispatcher [employer] EDDerian Cr MD MD cha Williams, Irene, RN RN iw Campbell, Kaitlyn, RN RN kc6 Corrections: (The following items were deleted from the chart) 08:34 08:34 Chest Single View+[email or web address] ordered. EDMS EDMS
[2024-07-11] MEDS ORDERED: ASPIRIN 81 MG CHEWABLE TABLET ONE (11:30)
[2024-07-11 11:52] VITALS: TEMP 98.2
[2024-07-11 11:55] VITALS: BP 164/110; O2SAT 96
--- NOTE | 2024-07-12 12:59 | EKG ---
Test Date: 2024-07-11 Test Time: 08:51:56 Enrichment Assistant: SVITLANA MEASUREMENT RESULTS: Intervals: Rate: 111 AK: 162 QRSD: 84 QT: 322 QTc: 437 [place]: P: 45 AK: 162 QRS: 23 T: 52 INTERPRETIVE STATEMENTS: Sinus tachycardia Otherwise normal ECG Compared to ECG 07/06/2024 20:58:56 Ventricular premature complex(es) no longer present Electronically Signed On 07-12-24 12:55:07 CDT by Dilip Vázquez
== END 2024-07-11 11:39 | disposition home or self-care (01) ==
LOC: ER 08:28
DX: F43.0 Acute stress reaction (principal); R00.0 Tachycardia, unspecified; I10 Essential (primary) hypertension; E87.6 Hypokalemia; Z79.01 Long term (current) use of anticoagulants
CPT/HCPCS: 36415; 71045; 80048; 80076; 80307; 81003; 83690; 83735; 83880; 84484; 85025; 85610; 93005; 96361; 96374; 96375; 99285; J1170; J2405; J7030; J7040

== ENCOUNTER 2024-07-21 09:37 | Emergency (ER) | payer SELFPAY ==
[2024-07-21] MEDS ORDERED: HYDROMORPHONE HCL 1 MG/ML INJ ONE (10:00)
[2024-07-21 10:25] LABS: Absolute Eosinophils 0.1 K/uL (0-0.5); Absolute Lymphocytes (CBC) 2.1 K/uL (0.7-4.9); Absolute Monocytes 0.6 K/uL (0.1-1.3); Basophils % 0.4 % (0-1.3); Eosinophils % 1.2 % (0-4.4); Hematocrit 37.4 % (39.6-49.0); Hemoglobin 12.2 g/dL (13.6-17.9); Lymphocytes % 26.9 % (15.3-44.8); MCHC 32.7 g/dL (32.0-36.0); MCV 91.7 fL (80-100); Monocytes % 7.7 % (3.3-12.3); Neutrophils % 63.8 % (41.7-73.7); Platelets 308 thou/uL (152-406); RBC Red Blood Cell Count 4.08 M/uL (4.33-5.43); Red Cell Distribution Width 16.1 % (12.1-15.2)
[2024-07-21 10:30] LABS: Protime INR 0.98
[2024-07-21 10:41] LABS: AST/SGOT 12 U/L (15-37); Alkaline Phosphatase 77 U/L (45-117); Anion Gap 12.1 mEq/L (5.0-15.0); BUN Blood Urea Nitrogen 18 mg/dL (7-18); Bicarbonate 22 mEq/L (21-32); Bilirubin Direct 0.2 mg/dL (0-0.2); Bilirubin Indirect, Calculated 0.5 mg/dL (0.2-0.8); Bilirubin Total 0.7 mg/dL (0.2-1.0); Globulin 4.2 g/dL (2.3-3.5); Glomerular Filtration Rate 93 ml/min (=/>90); Glucose Level 193 mg/dL (74-106); Potassium 3.1 mEq/L (3.5-5.1); Protein, Total 8.2 g/dL (6.4-8.2); Sodium Level 137 mEq/L (136-145); Troponin High Sensitivity 5.3 pg/mL (<58.9)
[2024-07-21 10:43] LABS: ALT/SGPT < 14 U/L (16-61); NT PRO-BNP < 5 pg/mL (<125)
--- NOTE | 2024-07-21 10:54 | RAD REPORT ---
EXAMINATION: ONE VIEW CHEST XR CLINICAL INDICATION: CHEST PAIN TECHNIQUE: Frontal chest projection is submitted. Examination is limited by patient positioning and t echnique. COMPARISON: 07/11/2024 FINDINGS: The lungs are well inflated and clear. The heart is normal in size. No displaced fractures identified . Right port catheter is tip in SVC. IMPRESSION: No acute intrathoracic abnormalities.
[2024-07-21] MEDS ORDERED: NA CHLORIDE 0.9% 1,000 ML ONE (11:13)
--- NOTE | 2024-07-21 12:08 | EDPHYS ---
Physician Documentation [facility] Name: Christiano Serra Age: 54 yrs Sex: Male : 1970 Arrival Date: 07/21/2024 Time: 09:37 Bed 20 Private MD: ED Physician Anibal Ramos HPI: 07/21 09:56 This 54 yrs old Male presents to ER via Ambulatory with complaints of chest pain. ec2 09:56 Patient arrives today for chest pain. History of previous reported PEs, reports he is ec2 on anticoagulant and antiplatelet agents, has been here 6 times for similar complaints in the past 1.5 months. Patient reports persistent chest pain, states she sees hematology, cardiology, pain management.. Historical: - Allergies: 09:46 ambien; mb9 09:46 Morphine; mb9 09:46 Toradol; mb9 - Home Meds: 09:46 Arixtra [Active]; Bystolic Oral [Active]; carvedilol 25 mg Oral tab 1 tab 2 times per mb9 day [Active]; - PMHx: 09:46 pericarditis; PE; FACTOR V; Hypertension; Hyperlipidemia; Myocardial infarction; mb9 - PSHx: 09:46 cardiac stents; Cholecystectomy; right chest port placement; back; mb9 - Immunization history:: Adult Immunizations up to date. - Infectious Disease History:: Denies. - Social history:: Smoking status: Patient denies any tobacco usage or history of. ROS: 09:56 Constitutional: as per hpi ec2 Exam: 09:56 Constitutional: GEN: NAD Head: atraumatic Eyes: EOMI Ears: External ears are ec2 normal. CV: Tachycardia LUNGS: no respiratory distress ABD: non-distended SKIN: no evidence of rashes MSK: no evidence of trauma Vital Signs: 09:45 BP 122 / 109; Pulse 122; Resp 18; Temp 98; Pulse Ox 97% on R/A; Weight 83.91 kg; Height mb9 5 ft. 9 in. ; Pain 9/10; 10:57 BP 159 / 108; Pulse 104; Resp 16; Pulse Ox 100% on R/A; mb9 12:19 BP 157 / 103; Pulse 89; Resp 18; Pulse Ox 100% on R/A; mb9 09:45 Body Mass Index 27.32 (83.91 kg, 175.26 cm) mb9 09:45 Pain Scale: Adult mb9 MDM: 09:56 Data reviewed: vital signs. ED course: Patient arrives today for chest pain. ec2 Examination remarkable for tachycardic individuals otherwise in no acute distress with a reassuring lamination. Will obtain lab work, EKG, chest x-ray, treat the patient's pain. Differentials considered include processes such as ACS, PE, dissection . 09:59 ED course: EKG independently reviewed and interpreted by me, shows sinus tachycardia, ec2 rate 114, no acute ST segment elevations, intervals are nonactionable. . 10:55 ED course: Metabolic profile shows slight hypokalemia at 3.1, CBC shows minimal anemia. ec2 Troponin as within normal ranges, BNP undetectable. CXR shows no acute intrathoracic process. 12:07 ED course: On reassessment, pt w/ improving pain and VS, will d/c to home, return ec2 precautions given. . 12:07 Patient medically screened. ec2 07/21 09:39 Order name: Basic Metabolic Panel; Complete Time: 10:55 ec2 07/21 09:39 Order name: CBC with Diff; Complete Time: 10:55 ec2 07/21 09:39 Order name: LFT's; Complete Time: 10:55 ec2 07/21 09:39 Order name: NT PRO-BNP; Complete Time: 10:55 ec2 07/21 09:39 Order name: PT-INR; Complete Time: 10:55 ec2 07/21 09:39 Order name: Troponin HS; Complete Time: 10:55 ec2 07/21 09:39 Order name: Ptt, Activated; Complete Time: 10:55 ec2 07/21 09:39 Order name: XRAY Chest (1 view); Complete Time: 10:55 ec2 07/21 09:39 Order name: Cardiac monitoring; Complete Time: 09:55 ec2 07/21 09:39 Order name: EKG - Nurse/Tech; Complete Time: 09:55 ec2 07/21 09:39 Order name: IV Saline Lock; Complete Time: 10:24 ec2 07/21 09:39 Order name: Labs collected and sent; Complete Time: 10:24 ec2 07/21 09:39 Order name: O2 Per Protocol; Complete Time: 09:55 ec2 07/21 09:39 Order name: O2 Sat Monitoring; Complete Time: 09:55 ec2 07/21 11:36 Order name: Misc. Order: d/c when fluids done; Complete Time: 12:20 ec2 Administered Medications: 10:12 Drug: HYDROmorphone IVP 1 mg IVP once Route: IVP; Site: Port-a-cath; mb9 11:06 Follow up: Response: No adverse reaction mb9 11:25 Drug: NS 0.9% IV 1000 ml IV at 1 bolus Per protocol; to be given as a bolus over 60 mb9 minutes Route: IV; Rate: 1 bolus; Site: right antecubital; 12:31 Follow up: Response: No adverse reaction; IV Status: Completed infusion mb9 12:20 Drug: HEParin Flush IVP 100 units IVP once Route: IVP; Site: Port-a-cath; mb9 12:31 Follow up: Response: No adverse reaction mb9 Disposition Summary: 07/21/24 12:07 Discharge Ordered Notes: Location: Home ec2 Condition: Stable ec2 Diagnosis - Chest pain, unspecified ec2 Followup: ec2 - With: Private Physician - When: - Reason: Re-evaluation by your physician Discharge Instructions: - Discharge Summary Sheet ec2 - Nonspecific Chest Pain, Adult, [id number] ec2 Forms: - Medication Reconciliation Form ec2 - Antibiotic Education ec2 - Prescription Opioid Use ec2 - Patient Portal Instructions ec2 - Leadership Thank You Letter ec2 Signatures: Dispatcher Anh Treadwell RN RN mb9 Anibal Ramos MD MD ec2 Corrections: (The following items were deleted from the chart) 09:39 09:39 BASIC METABOLIC PANEL+C.LAB.BRZ ordered. EDMS EDMS 09:39 09:39 CBC+H.LAB.BRZ ordered. EDMS EDMS 09:39 09:39 HEPATIC FUNCTION+C.LAB.BRZ ordered. EDMS EDMS 09:39 09:39 PROBNP+C.LAB.BRZ ordered. EDMS EDMS 09:39 09:39 PROTIME (+INR)+COAG.LAB.BRZ ordered. EDMS EDMS 09:39 09:39 Troponin High Sensitivity+C.LAB.BRZ ordered. EDMS EDMS 09:39 09:39 PTT, ACTIVATED+COAG.LAB.BRZ ordered. EDMS EDMS 09:39 09:39 Chest Single View+RAD.RAD.BRZ ordered. EDMS EDMS
--- NOTE | 2024-07-21 12:08 | ER ---
Nurse's Notes [facility] Name: Christiano Serra Age: 54 yrs Sex: Male : 1970 Arrival Date: 07/21/2024 Time: 09:37 Bed 20 Private MD: Diagnosis: Chest pain, unspecified Presentation: 07/21 09:45 Chief complaint: Patient states: "I started having CP that woke me up from sleep at mb9 5am. It's sharp and i was nauseated and diaphoretic. I took 4 nitros and my last dose was 45 minutes SCALLOPER.". Coronavirus screen: Vaccine status: Patient reports receiving the 2nd dose of the covid vaccine. Ebola Screen: No symptoms or risks identified at this time. Initial Sepsis Screen: Does the patient meet any 2 criteria? No. Patient's initial sepsis screen is negative. Does the patient have a suspected source of infection? No. Patient's initial sepsis screen is negative. Risk Assessment: Do you want to hurt yourself or someone else? Patient reports no desire to harm self or others. Onset of symptoms was July 21, 2024. 09:45 Acuity: RADHA 2 mb9 09:45 Method Of Arrival: Ambulatory mb9 Triage Assessment: 09:52 General: Appears in no apparent distress. Behavior is calm, cooperative. Pain: mb9 Complains of pain in chest Pain does not radiate. Pain currently is 9 out of 10 on a pain scale. Quality of pain is described as sharp, Pain began suddenly. EENT: No signs and/or symptoms were reported regarding the EENT system. Neuro: Montoya Agitation-Sedation Scale (RASS): 0 - Alert and Calm Level of Consciousness is awake, alert, obeys commands, Oriented to person, place, time, situation, Appropriate for age. Cardiovascular: Reports chest pain, nausea, Heart tones S1 S2 present Patient's skin is warm and dry. Rhythm is sinus tachycardia. Respiratory: Airway is patent Respiratory effort is even, unlabored, Respiratory pattern is regular, symmetrical, Breath sounds are clear bilaterally. GI: Abdomen is flat, non-distended, Bowel sounds present X 4 quads. Abd is soft and non tender X 4 quads. : No signs and/or symptoms were reported regarding the genitourinary system. Derm: Skin is pink, warm \\T\\ dry. Musculoskeletal: Range of motion: intact in all extremities. Historical: - Allergies: 09:46 ambien; mb9 09:46 Morphine; mb9 09:46 Toradol; mb9 - Home Meds: 09:46 Arixtra [Active]; Bystolic Oral [Active]; carvedilol 25 mg Oral tab 1 tab 2 times per mb9 day [Active]; - PMHx: 09:46 pericarditis; PE; FACTOR V; Hypertension; Hyperlipidemia; Myocardial infarction; mb9 - PSHx: 09:46 cardiac stents; Cholecystectomy; right chest port placement; back; mb9 - Immunization history:: Adult Immunizations up to date. - Infectious Disease History:: Denies. - Social history:: Smoking status: Patient denies any tobacco usage or history of. Screenin:53 [facility] ED Fall Risk Assessment (Adult) History of falling in the last 3 months, mb9 including since admission No falls in past 3 months (0 pts) Confusion or Disorientation No (0 pts) Intoxicated or Sedated No (0 pts) Impaired Gait No (0 pts) Mobility Assist Device Used No (0 pt) Altered Elimination No (0 pt) Score/Fall Risk Level 0 - 2 = Low Risk Oriented to surroundings, Maintained a safe environment, Educated pt \\T\\ family on fall prevention, incl call for assistance when getting out of bed. Abuse screen: Denies threats or abuse. Nutritional screening: No deficits noted. Tuberculosis screening: No symptoms or risk factors identified. Assessment: 11:30 Reassessment: No changes from previously documented assessment. Patient and/or family mb9 updated on plan of care and expected duration. Pain level reassessed. Patient is alert, oriented x 3, equal unlabored respirations, skin warm/dry/pink. 12:19 Reassessment: No changes from previously documented assessment. Patient and/or family mb9 updated on plan of care and expected duration. Pain level reassessed. Patient states feeling better. Patient states symptoms have improved. 12:20 Reassessment: D/C pending completion of IV fluids. mb9 Vital Signs: 09:45 BP 122 / 109; Pulse 122; Resp 18; Temp 98; Pulse Ox 97% on R/A; Weight 83.91 kg; Height mb9 5 ft. 9 in. ; Pain 9/10; 10:57 BP 159 / 108; Pulse 104; Resp 16; Pulse Ox 100% on R/A; mb9 12:19 BP 157 / 103; Pulse 89; Resp 18; Pulse Ox 100% on R/A; mb9 09:45 Body Mass Index 27.32 (83.91 kg, 175.26 cm) mb9 09:45 Pain Scale: Adult mb9 ED Course: 09:37 Patient arrived in ED. ec2 09:37 Anibal Ramos MD is Attending Physician. ec2 09:41 Anh Mcmahon RN is Primary Nurse. mb9 09:45 EKG done, by ED staff, reviewed by Anibal Ramos MD. mb9 09:46 Triage completed. mb9 09:52 Arm band placed on. mb9 09:53 Placed in gown. Bed in low position. Call light in reach. Side rails up X 1. Provided mb9 Education on: press call light if needing anything. Client placed on continuous cardiac and pulse oximetry monitoring. NIBP monitoring applied. threat monitoring analyst on. 10:10 Accessed Port-a-Cath. using accessed w/ # 20 Rich needle, ,sterile technique, per 9 hospital protocol. Clean \\T\\ dry. Dressing intact. Good blood return. Flushes easily. 10:10 No provider procedures requiring assistance completed. mb9 10:21 XRAY Chest (1 view) In Process Unspecified. EDMS 12:31 IV discontinued, intact, bleeding controlled, No redness/swelling at site. Pressure mb9 dressing applied. Administered Medications: 10:12 Drug: HYDROmorphone IVP 1 mg IVP once Route: IVP; Site: Port-a-cath; mb9 11:06 Follow up: Response: No adverse reaction mb9 11:25 Drug: NS 0.9% IV 1000 ml IV at 1 bolus Per protocol; to be given as a bolus over 60 mb9 minutes Route: IV; Rate: 1 bolus; Site: right antecubital; 12:31 Follow up: Response: No adverse reaction; IV Status: Completed infusion mb9 12:20 Drug: HEParin Flush IVP 100 units IVP once Route: IVP; Site: Port-a-cath; mb9 12:31 Follow up: Response: No adverse reaction mb9 Medication: 10:57 VIS not applicable for this client. mb9 Outcome: 12:07 Discharge ordered by . ec2 12:32 Discharged to home ambulatory, mb9 12:32 Condition: stable 12:32 Discharge instructions given to patient, Instructed on discharge instructions, follow up and referral plans. Demonstrated understanding of instructions, follow-up care, 12:32 Patient left the ED. mb9 Signatures: Dispatcher [employer] Anh Doll RN RN mb9 Anibal Ramos MD MD ec2
[2024-07-21] MEDS ORDERED: HEPARIN 500 UNIT/5 ML SYR IV ONE (12:18)
[2024-07-21 13:38] VITALS: TEMP 98
[2024-07-21 13:39] VITALS: O2SAT 100
[2024-07-21 13:41] VITALS: BP 157/103
--- NOTE | 2024-07-27 12:19 | EKG ---
Test Date: 2024-07-21 Test Time: 09:46:27 Statistical Modeler: SAMANTHA MEASUREMENT RESULTS: Intervals: Rate: 114 AL: 174 QRSD: 80 QT: 318 QTc: 438 [place]: P: 51 AL: 174 QRS: 27 T: 56 INTERPRETIVE STATEMENTS: Sinus tachycardia Otherwise normal ECG Compared to ECG 07/11/2024 08:51:56 No significant changes Electronically Signed On 07-27-24 12:02:00 CDT by Dilip Vázquez
== END 2024-07-21 12:32 | disposition home or self-care (01) ==
LOC: ER 09:37
DX: R07.9 Chest pain, unspecified (principal); I10 Essential (primary) hypertension; I25.2 Old myocardial infarction; Z86.711 Personal history of pulmonary embolism; Z79.01 Long term (current) use of anticoagulants; Z95.818 Presence of other cardiac implants and grafts
CPT/HCPCS: 36415; 71045; 80048; 80076; 83880; 84484; 85025; 85610; 85730; 93005; 96361; 96374; 96375; 99285; J1170; J1642; J7030

== ENCOUNTER 2024-08-08 09:20 | Emergency (ER) | payer MEDICARE, SELFPAY ==
--- NOTE | 2024-08-08 09:52 | ER ---
Nurse's Notes [facility] Name: Christiano Serra Age: 54 yrs Sex: Male : 1970 Arrival Date: 08/08/2024 Time: 09:20 Bed 3 Private MD: Diagnosis: Presentation: 08/08 09:43 Chief complaint: Patient states: chest pain that began at 0500 this am. Coronavirus ss screen: Client denies travel out of the [place] in the last 14 days. Ebola Screen: Patient denies exposure to infectious person. Patient denies travel to an Ebola-affected area in the 21 days before illness onset. Initial Sepsis Screen: Does the patient meet any 2 criteria? Does the patient have a suspected source of infection? No. Patient's initial sepsis screen is negative. Risk Assessment: Do you want to hurt yourself or someone else? Patient reports no desire to harm self or others. Onset of symptoms was August 08, 2024. 09:43 Method Of Arrival: Ambulatory 09:43 Acuity: RADHA 3 ss Historical: - Allergies: 09:44 ambien; ss 09:44 Morphine; ss 09:44 Toradol; ss - PMHx: 09:44 FACTOR V; pericarditis; Hyperlipidemia; Hypertension; Myocardial infarction; PE; ss - PSHx: 09:44 back; cardiac stents; Cholecystectomy; right chest port placement; ss - Immunization history:: Adult Immunizations up to date. - Infectious Disease History:: Denies. - Social history:: Smoking status: Patient denies any tobacco usage or history of. Screenin:50 [facility] ED Fall Risk Assessment (Adult) History of falling in the last 3 months, mb9 including since admission No falls in past 3 months (0 pts) Confusion or Disorientation No (0 pts) Intoxicated or Sedated No (0 pts) Impaired Gait No (0 pts) Mobility Assist Device Used No (0 pt) Altered Elimination No (0 pt) Score/Fall Risk Level 0 - 2 = Low Risk Oriented to surroundings, Maintained a safe environment, Educated pt \T\ family on fall prevention, incl call for assistance when getting out of bed. Abuse screen: Denies threats or abuse. Nutritional screening: No deficits noted. Tuberculosis screening: No symptoms or risk factors identified. Assessment: 09:49 Reassessment: pt refuses IV and blood work. Pt states he wants to leave. ERP notified. mb9 AMA form signed by pt. Vital Signs: 09:43 BP 152 / 118; Pulse 113; Resp 20; Temp 98.6(O); ss ED Course: 09:22 Patient arrived in ED. im 09:30 Asael Daniels MD is Attending Physician. sp3 09:35 Placed in gown. Bed in low position. Call light in reach. Side rails up X 1. Provided mb9 Education on: press call light if needing anything. Client placed on continuous cardiac and pulse oximetry monitoring. NIBP monitoring applied. property assessment monitor on. 09:35 EKG done, by ED staff, reviewed by Asael Daniels MD. mb9 09:41 Anh Mcmahon, RN is Primary Nurse. mb9 09:44 Triage completed. ss 09:44 Arm band placed on left wrist. ss 09:51 Patient did not have IV access during this emergency room visit. mb9 09:51 No provider procedures requiring assistance completed. mb9 Administered Medications: No medications were administered Medication: 09:48 VIS not applicable for this client. mb9 Outcome: 09:51 AMA AMA form signed mb9 09:51 Condition: stable 09:52 Patient left the ED. mb9 Signatures: Bekah Gleason RN RN Asael Daniels MD MD sp3 Anh Mcmahon, ADRIANA RN mb9 Noemy Velázquez im
--- NOTE | 2024-08-08 09:52 | EDPHYS ---
Physician Documentation [facility] Name: Christiano Serra Age: 54 yrs Sex: Male : 1970 Arrival Date: 08/08/2024 Time: 09:20 Bed 3 Private MD: ED Physician Asael Daniels HPI: 08/08 09:48 This 54 yrs old Male presents to ER via Ambulatory with complaints of Chest Pain. sp3 09:48 54-year-old male with history of factor V Leiden, hypertension, hyperlipidemia, sp3 pericarditis, prior MN and PE now presents to the ED with recurrent chest pain. Patient states he has multiple specialists that he still sees including hematology, cardiology etc. He states the pain started at 5 AM. He denies shortness of breath, headache, fever, abdominal pain, back pain, nausea, vomiting, diarrhea, syncope, near syncope, rash or any other signs or symptoms on ROS at this time.. Historical: - Allergies: 09:44 ambien; ss 09:44 Morphine; ss 09:44 Toradol; ss - PMHx: 09:44 FACTOR V; pericarditis; Hyperlipidemia; Hypertension; Myocardial infarction; PE; ss - PSHx: 09:44 back; cardiac stents; Cholecystectomy; right chest port placement; ss - Immunization history:: Adult Immunizations up to date. - Infectious Disease History:: Denies. - Social history:: Smoking status: Patient denies any tobacco usage or history of. ROS: 09:49 Constitutional: Negative for fever, chills, and weight loss, Eyes: Negative for injury, sp3 pain, redness, and discharge, ENT: Negative for injury, pain, and discharge, Neck: Negative for injury, pain, and swelling, Respiratory: Negative for shortness of breath, cough, wheezing, and pleuritic chest pain, Abdomen/GI: Negative for abdominal pain, nausea, vomiting, diarrhea, and constipation, Back: Negative for injury and pain, MS/Extremity: Negative for injury and deformity, Skin: Negative for injury, rash, and discoloration, Neuro: Negative for headache, weakness, numbness, tingling, and seizure, Psych: Negative for depression, anxiety, suicide ideation, homicidal ideation, and hallucinations, Allergy/Immunology: Negative for hives, rash, and allergies, Endocrine: Negative for neck swelling, polydipsia, polyuria, polyphagia, and marked weight changes, Hematologic/Lymphatic: Negative for swollen nodes, abnormal bleeding, and unusual bruising, 09:49 All other systems are negative, Exam: 09:49 Constitutional: This is a well developed, well nourished patient who is awake, alert, sp3 and in no acute distress. Head/Face: Normocephalic, atraumatic. Eyes: Pupils equal round and reactive to light, extra-ocular motions intact. Lids and lashes normal. Conjunctiva and sclera are non-icteric and not injected. Cornea within normal limits. Periorbital areas with no swelling, redness, or edema. Neck: Trachea midline, no thyromegaly or masses palpated, and no cervical lymphadenopathy. Supple, full range of motion without nuchal rigidity, or vertebral point tenderness. No Meningismus. Cardiovascular: Regular rate and rhythm with a normal S1 and S2. No gallops, murmurs, or rubs. Normal PMI, no JVD. No pulse deficits. Respiratory: Lungs have equal breath sounds bilaterally, clear to auscultation and percussion. No rales, rhonchi or wheezes noted. No increased work of breathing, no retractions or nasal flaring. Abdomen/GI: Soft, non-tender, with normal bowel sounds. No distension or tympany. No guarding or rebound. No evidence of tenderness throughout. Back: No spinal tenderness. No costovertebral tenderness. Full range of motion. Skin: Warm, dry with normal turgor. Normal color with no rashes, no lesions, and no evidence of cellulitis. MS/ Extremity: Pulses equal, no cyanosis. Neurovascular intact. Full, normal range of motion. Neuro: Awake and alert, GCS 15, oriented to person, place, time, and situation. Cranial nerves II-XII grossly intact. Motor strength 5/5 in all extremities. Sensory grossly intact. Cerebellar exam normal. Normal gait. Psych: Awake, alert, with orientation to person, place and time. Behavior, mood, and affect are within normal limits. 09:49 Chest/axilla: Normal chest wall appearance and motion. Nontender with no deformity. No lesions are appreciated. 09:49 Chest/axilla: . 09:49 Cardiovascular: Heart rate varies from the upper 90s to low 100s., 09:49 ECG was reviewed by the Attending Physician. EKG demonstrates sinus tachycardia at 109 bpm with normal intervals, normal QRS, normal axis and nonspecific diffuse ST/T changes without evidence of ischemia. Vital Signs: 09:43 BP 152 / 118; Pulse 113; Resp 20; Temp 98.6(O); ss MDM: 09:30 Medical Screening Exam initiated sp3 09:50 Data reviewed: vital signs, nurses notes, old medical records, lab test result(s), EKG, sp3 radiologic studies. ED course: 54-year-old male with complex medical history now with recurrent chest pain. Differential diagnosis includes acute coronary syndrome, PE, pericarditis, musculoskeletal pain, among others. Patient is debating whether he wants to stay past EKG or not. I have ordered full laboratory panel and chest x-ray with probable CT chest as well however will discuss with patient.. 08/08 09:38 Order name: Troponin High Sensitivity: 2 hours after first sp3 08/08 09:38 Order name: EKG; Complete Time: 09:39 sp3 08/08 09:38 Order name: Cardiac monitoring sp3 08/08 09:38 Order name: EKG - Nurse/Tech; Complete Time: 09:46 sp3 08/08 09:38 Order name: IV Saline Lock sp3 08/08 09:38 Order name: Labs collected and sent sp3 08/08 09:38 Order name: O2 Per Protocol sp3 08/08 09:38 Order name: O2 Sat Monitoring sp3 Administered Medications: No medications were administered Disposition Summary: 08/08/24 09:51 Left Against Medical Advice Notes: Location: Home mb9 Condition: Stable mb9 Problem: an acute exacerbation sp3 Symptoms: have worsened sp3 Signatures: Dispatcher [employer] EDMS Bekah Gleason RN RN ss Asael Daniels MD MD sp3 Anh Mcmahon RN RN mb9
[2024-08-08 09:56] VITALS: BP 152/118; TEMP 98.6
--- NOTE | 2024-08-09 14:51 | EKG ---
Test Date: 2024-08-08 Test Time: 09:39:12 Packaging Inspector: SB MEASUREMENT RESULTS: Intervals: Rate: 109 AK: 168 QRSD: 90 QT: 332 QTc: 447 [place]: P: 34 AK: 168 QRS: 21 T: 49 INTERPRETIVE STATEMENTS: Sinus tachycardia Otherwise normal ECG Compared to ECG 07/21/2024 09:46:27 No significant changes Electronically Signed On 08-09-24 14:46:48 CDT by Guy Almaguer
== END 2024-08-08 09:52 | disposition left against medical advice (07) ==
LOC: ER 09:20
DX: R07.9 Chest pain, unspecified (principal); I10 Essential (primary) hypertension; I25.2 Old myocardial infarction; Z95.818 Presence of other cardiac implants and grafts
CPT/HCPCS: 93005; 99284

== ENCOUNTER 2024-11-16 13:49 | Emergency (ER) | payer SELFPAY ==
--- NOTE | 2024-11-16 15:20 | RAD REPORT ---
EXAMINATION: ONE VIEW CHEST XR CLINICAL INDICATION: Male, 54 years old.,CHEST PAIN TECHNIQUE: Frontal chest projection is submitted. Examination is limited by patient positioning and t echnique. COMPARISON: 07/21/2024 FINDINGS: The lungs are well inflated and clear. Right Port-A-Cath unchanged in position. No pneumothorax or si zable effusion. The heart is normal in size. Mediastinal contours are unchanged with tortuosity of the thoracic aorta. IMPRESSION: No acute intrathoracic abnormalities.
--- NOTE | 2024-11-16 17:23 | ER ---
Nurse's Notes [facility] Name: Christiano Serra Age: 54 yrs Sex: Male : 1970 Arrival Date: 11/16/2024 Time: 13:49 Bed 29 Private MD: Diagnosis: Essential (primary) hypertension;Chest pain, unspecified;Tachycardia, unspecified Presentation: 11/16 14:00 Chief complaint: Patient states: left sided cp that radiates to back, /. c/o some me1 nausea. Coronavirus screen: Vaccine status: Patient reports receiving the 2nd dose of the covid vaccine. Ebola Screen: No symptoms or risks identified at this time. Initial Sepsis Screen: Does the patient meet any 2 criteria? HR > 90 bpm. No. Patient's initial sepsis screen is negative. Does the patient have a suspected source of infection? No. Patient's initial sepsis screen is negative. Risk Assessment: Do you want to hurt yourself or someone else? Patient reports no desire to harm self or others. Onset of symptoms was November 16, 2024 at 12:00. 14:00 Method Of Arrival: Ambulatory or1 14:00 Acuity: RADHA 3 me1 Historical: - Allergies: 14:01 ambien; me1 14:01 Morphine; me1 14:01 Toradol; me1 - PMHx: 14:01 FACTOR V; Hyperlipidemia; Hypertension; Myocardial infarction; PE; pericarditis; me1 - PSHx: 14:01 back; cardiac stents; Cholecystectomy; right chest port placement; me1 - Immunization history:: Adult Immunizations up to date. - Infectious Disease History:: Denies. - Social history:: Smoking status: Patient denies any tobacco usage or history of. Vital Signs: 14:00 BP 182 / 108; Pulse 132; Resp 18; Temp 98.1; Pulse Ox 99% ; Weight 77.11 kg; Height 5 me1 ft. 7 in. ; Pain 8; 14:00 Body Mass Index 26.63 (77.11 kg, 170.18 cm) me1 14:00 Pain Scale: Adult or1 ED Course: 13:51 Patient arrived in ED. im 13:52 Derian Pringle PA is PHCP. cp 13:52 Derian Vo MD is Attending Physician. cp 14:01 Triage completed. me1 14:01 Arm band placed on Patient placed. me1 15:08 XRAY Chest (1 view) In Process Unspecified. EDMS Administered Medications: No medications were administered Outcome: 17:28 Patient left the ED. iw Signatures: Dispatcher [employer] EDDiana Lott, RN RN iw Derian Pringle PA PA cp Mendoza, Itzel im Eddleman, Michelle, RN RN me1
--- NOTE | 2024-11-16 17:23 | EDPHYS ---
Physician Documentation [facility] Name: Christiano Serra Age: 54 yrs Sex: Male : 1970 Arrival Date: 11/16/2024 Time: 13:49 Bed 29 Private MD: VIVEK Physician Derian Vo HPI: 11/16 14:04 This 54 yrs old Male presents to ER via Ambulatory with complaints of Chest Pain, cp Nausea. 14:04 Onset: today, about 1200. The pain radiates to Associated signs and symptoms: Pertinent cp positives: nausea, shortness of breath, Pertinent negatives: abdominal pain, cough, lower extremity pain, lower extremity swelling, syncope. The chest pain is described as constant. Duration: The patient or guardian reports a single episode, that is still ongoing, and worsening. 14:04 The patient or guardian reports chest pain that is located primarily in the substernal cp area. Historical: - Allergies: 14:01 ambien; me1 14:01 Morphine; me1 14:01 Toradol; me1 - PMHx: 14:01 FACTOR V; Hyperlipidemia; Hypertension; Myocardial infarction; PE; pericarditis; me1 - PSHx: 14:01 back; cardiac stents; Cholecystectomy; right chest port placement; me1 - Immunization history:: Adult Immunizations up to date. - Infectious Disease History:: Denies. - Social history:: Smoking status: Patient denies any tobacco usage or history of. ROS: 14:04 Constitutional: Negative for body aches, chills, fever, cp 14:04 Cardiovascular: Positive for chest pain, 14:04 Respiratory: Positive for shortness of breath, at rest. 14:04 Eyes: Negative for injury, pain, redness, and discharge, cp 14:04 ENT: Negative for drainage from ear(s), ear pain, sore throat, difficulty swallowing, difficulty handling secretions, 14:04 Abdomen/GI: Positive for nausea, Negative for abdominal pain, vomiting, diarrhea, constipation, 14:04 Back: Positive for radiated pain, 14:04 Neuro: Negative for altered mental status, dizziness, headache, numbness, syncope, weakness, 14:04 All other systems are negative, Exam: 14:05 ECG was reviewed by the Attending Physician. cp 14:10 Constitutional: The patient appears in no acute distress, alert, awake, cp non-diaphoretic, non-toxic, well developed, well nourished, uncomfortable, 14:10 Head/Face: Normocephalic, atraumatic. cp 14:10 Eyes: Periorbital structures: appear normal, Conjunctiva: normal, no exudate, no injection, Sclera: no appreciated abnormality, Lids and lashes: appear normal, bilaterally, 14:10 ENT: External ear(s): are unremarkable, Nose: is normal, Mouth: Lips: moist, Oral mucosa: moist, Posterior pharynx: Airway: no evidence of obstruction, patent, 14:10 Neck: ROM/movement: pain, is not appreciated, limited range of motion, is not appreciated, 14:10 Chest/axilla: Inspection: normal, 14:10 Cardiovascular: Rate: tachycardic, Rhythm: regular, Edema: is not appreciated, JVD: is cp not appreciated, 14:10 Respiratory: the patient does not display signs of respiratory distress, Respirations: shallow respirations, that is mild, Breath sounds: are clear throughout, no decreased breath sounds, no stridor, no wheezing, 14:10 Abdomen/GI: Inspection: abdomen appears normal, Palpation: abdomen is soft and non-tender, in all quadrants, 14:10 Neuro: Orientation: to person, place \T\ time. Mentation: is normal, Motor: moves all fours, strength is normal, Sensation: no obvious gross deficits, Vital Signs: 14:00 BP 182 / 108; Pulse 132; Resp 18; Temp 98.1; Pulse Ox 99% ; Weight 77.11 kg; Height 5 me1 ft. 7 in. ; Pain 8/10; 14:00 Body Mass Index 26.63 (77.11 kg, 170.18 cm) me1 14:00 Pain Scale: Adult me1 MDM: 17:22 Medical Screening Exam initiated cp 17:22 Data reviewed: vital signs, nurses notes, EKG. 11/16 14:03 Order name: XRAY Chest (1 view); Complete Time: 16:05 02 16:05 Interpretation: Report review. 11/16 14:03 Order name: Cardiac monitoring 11/16 14:03 Order name: EKG - Nurse/Tech 11/16 14:03 Order name: IV Saline Lock 02/06 14:03 Order name: Labs collected and sent 11/16 14:03 Order name: O2 Per Protocol 11/16 14:03 Order name: O2 Sat Monitoring cp EC:05 Rate is 138 beats/min. Rhythm is regular. [place] interval is normal. QRS interval is cp normal. QT interval is normal. T waves are Inverted in lead aVR. Interpreted by me. Reviewed by me. Administered Medications: No medications were administered Disposition Summary: 11/16/24 17:22 Eloped Notes: Disposition: after being seen by provider cp Problem: new cp Symptoms: are unchanged cp Reason: unknown cp Condition: Stable cp Diagnosis - Essential (primary) hypertension cp - Chest pain, unspecified cp - Tachycardia, unspecified cp Followup: cp - With: Emergency Department - When: As needed - Reason: Worsening of condition Addendum: 11/17/2024 23:24 Co-signature as Attending Physician, Derian Vo MD I agree with the assessment and c torres plan of care. Signatures: Dispatcher [employer] EDMS Derian Vo MD MD cha Page, Corey, PA PA cp Magda Diaz, ADRIANA RN me1 Corrections: (The following items were deleted from the chart) 11/16 14:04 14:03 BASIC METABOLIC PANEL+C.LAB.BRZ ordered. EDMS EDMS 14:04 14:03 CBC+H.LAB.BRZ ordered. EDMS EDMS 14:04 14:03 HEPATIC FUNCTION+C.LAB.BRZ ordered. EDMS EDMS 14:04 14:03 MAGNESIUM+C.LAB.BRZ ordered. EDMS EDMS 14:04 14:03 PROBNP+C.LAB.BRZ ordered. EDMS EDMS 14:04 14:03 PROTIME (+INR)+COAG.LAB.BRZ ordered. EDMS EDMS 14:04 14:03 Troponin High Sensitivity+C.LAB.BRZ ordered. EDMS EDMS 14:04 14:03 LIPASE+C.LAB.BRZ ordered. EDMS EDMS 14:04 14:03 URINE DRUG SCREEN+UC.LAB.BRZ ordered. EDMS EDMS 14:04 14:03 Urinalysis W/Microscopic+U.LAB.BRZ ordered. EDMS EDMS 14:04 14:04 Chest Single View+RAD.RAD.BRZ ordered. EDMS EDMS
[2024-11-16 17:38] VITALS: BP 182/108; TEMP 98.1; O2SAT 99
--- NOTE | 2024-11-17 13:41 | EKG ---
Test Date: 2024-11-16 Test Time: 13:59:48 [place]: MEASUREMENT RESULTS: Intervals: Rate: 138 KS: 150 QRSD: 78 QT: 278 QTc: 421 [place]: P: 52 KS: 150 QRS: 36 T: 67 INTERPRETIVE STATEMENTS: Sinus tachycardia Biatrial enlargement Nonspecific ST abnormality Abnormal ECG Compared to ECG 08/08/2024 09:39:12 Atrial abnormality now present ST (T wave) deviation now present Electronically Signed On 11-17-24 13:38:35 [employer] by Guy Almaguer
== END 2024-11-16 17:28 | disposition left against medical advice (07) ==
LOC: ER 13:49
DX: I10 Essential (primary) hypertension (principal); R00.0 Tachycardia, unspecified; Z95.818 Presence of other cardiac implants and grafts
CPT/HCPCS: 71045; 93005; 99281